=== PATIENT | female | born 1975 | race Caucasian/White ===

== ENCOUNTER 2019-12-17 00:59 | Emergency (ER) | payer BC, SELFPAY ==
--- NOTE | ~2019-12-17 | CT_ITS ---
EXAMINATION: CT abdomen pelvis w con DATE: 12/17/2019 03:12 INDICATION: Abdominal pain, nausea, vomiting TECHNIQUE: Computed tomography (CT) of the abdomen and pelvis was performed with 100 cc Omnipaque 350 intravenous contrast. Automated exposure control and iterative reconstruction technique were employe d. Exam dose: 1604.62 mGy-cm total exam DLP. COMPARISON: 12/24/2018 CT abdomen pelvis FINDINGS: Bilateral dependent lower lobe atelectasis. Borderline heart size. No pericardial or pleural effusion. Hepatic steatosis. Status post cholecystectomy. No bile duct dilatation. No hepatic, splenic, pancreatic space-occupying mass lesion. No pancreatic duct dilatation. Normal morphology of the adrenal glands. Small left renal cyst. No renal mass lesion. No urinary tract calculus or hydroureteronephrosis. There is atherosclerotic calcification of the abdominal aorta. No intraperitoneal or retroperitoneal or pelvic mass lesion or adenopathy or ascites. Normal appendix. Up to 1.5 cm left ovarian cysts; status post hysterectomy. The urinary bladder is unremarkable. Status post hysterectomy. Included skeletal structures are unremarkable. IMPRESSION: Hepatic steatosis Status post cholecystectomy Status post hysterectomy Up to 1.5 cm left ovarian cysts Reviewed, dictated and finalized at [facility]. Reviewed, dictated and finalized at location [facility].
[2019-12-17 01:02] VITALS: BP 213/138; PULSE 119; RESP 24; TEMP 36.1; O2SAT 100
--- NOTE | 2019-12-17 01:15 | PC.NURSE ---
pt does not want an iv at this time patient states that she just can't do it, I am going to be sick . pt states i need a glass a water . I explained to her that we could not give her water while she is vomiting, pt states my mouth is so dry, i need water .
--- NOTE | 2019-12-17 01:19 | ED.NAVMDI ---
HPI - Nausea/Vomiting/Diarrhea General Chief complaint: Nausea/Vomiting/Diarrhea Stated complaint: vomiting Time Seen by Provider: 12/17/19 01:08 Source: patient and RN notes reviewed Mode of arrival: ambulatory Limitations: no limitations History of Present Illness HPI Narrative: Pt is a 43 y/o female with a Hx of DM I and cyclical vomiting, who presents to the ED with c/o nausea and vomiting starting yesterday. She notes that she has been vomiting constantly for the past 12 hours. Pt states that her BS was 208 earlier yesterday, and notes that she believes she is currently in DKA. She reports dysuria accompanying her vomiting, but denies any fever, chills, or other symptoms. Patient well-known to this facility, states she has been seen here before for DKA and cyclical vomiting. Patient repeatedly requesting to drink water, repeatedly stating she is going to vomit. MD elicited complaint: nausea and vomiting Pertinent past history: cyclical vomiting Onset (ago): hour(s) (12) Associated nausea: Yes Associated symptoms: dysuria Related Data Home Medications Medication Instructions Recorded Confirmed acyclovir 400 mg tablet 400 mg PO BID 11/02/19 11/02/19 alprazolam 1 mg tablet 1 mg PO TID PRN 11/02/19 11/02/19 cyclobenzaprine 10 mg tablet 5 mg PO TID tablet 11/02/19 11/02/19 docusate sodium 100 mg capsule 100 mg PO BID PRN 11/02/19 11/02/19 insulin aspart U-100 100 unit/mL 1 sliding scale dose SUB-Q 11/02/19 11/02/19 subcutaneous solution USEASDIRECTD insulin glargine 100 unit/mL (3 60 unit SUB-Q DAILY ml 11/02/19 11/02/19 mL) subcutaneous pen prochlorperazine maleate 10 mg 10 mg PO Q4-6H PRN tablet 11/02/19 11/02/19 tablet sertraline 100 mg tablet 100 mg PO DAILY 11/02/19 11/02/19 tramadol 50 mg tablet 50 mg PO QID PRN tablet 11/02/19 11/02/19 trazodone 100 mg tablet 100 mg PO DAILY tablet 11/02/19 11/02/19 zolpidem 10 mg tablet 10 mg PO QPM tablet 11/02/19 11/02/19 Allergies Allergy/AdvReac Type Severity Reaction Status Date / Time metoclopramide Allergy Severe Rash Verified 12/30/18 07:26 latex Allergy Unknown Unknown Verified 11/02/19 15:35 Review of Systems Review of Systems: Narrative: CONSTITUTIONAL: Denies fever, chills, or sweats. CV: Denies chest pain or dyspnea GASTROINTESTINAL: Denies diarrhea. Reports nausea and vomiting. GENITOURINARY: Reports dysuria. Denies hematuria. NEURO: Denies weakness or numbness All systems reviewed & are unremarkable except as noted in HPI and below PMFSH Past Medical History Medical History Allergies Anemia Anxiety Back pain Bronchitis Chicken pox Cyclical vomiting Depression Diabetes type 1, controlled Endometriosis Fatty liver Fibromyalgia Foot fracture, left GERD (gastroesophageal reflux disease) Heart murmur Herpes HLD (hyperlipidemia) HTN (hypertension) Hypothyroidism IBS (irritable bowel syndrome) Leukocytosis Peptic ulcer Pneumonia Rheumatoid arthritis Sleep apnea Uterine fibroid UTI (urinary tract infection) Vaginal disorder Vitamin B 12 deficiency Surgical History Surgical History History of hysterectomy History of laparoscopy pelvic laparoscopy with removal of uterine fibroids Hx of cholecystectomy Family History Family History (Updated 07/01/18 @ 09:13 by DOCTOR UNKNOWN) Mother Diabetes mellitus Hypertension Family history of elevated blood lipids Sibling Family history of obesity Patient's sister is in good health Father Hypertension Family history of cardiovascular disease Other Acute myocardial infarction Family history of arthritis Family history of heart disease in male family member before age 55 Family history of thyroid disease Social History Social History Smoking status: Never smoker Alcohol intake: current Gender identity (if verbalized by the patient)
[2019-12-17 01:24] VITALS: BP 154/88; PULSE 106; RESP 22; TEMP 37.2; O2SAT 98
[2019-12-17] MEDS: ONDANSETRON INJ 4 MG/2 ML VIAL IV PUSH (01:50)
[2019-12-17 01:52] LABS: Alveolar/Arterial O2 Gradient 29.6 mmHg; Base Excess ABG -1.8 mEq/l (+/-2.0); Carboxyhemoglobin 0.6 % THb (0-2.0); Fractional Inspired Oxygen 21 %; HCO3 ABG 16.5 mEq/l (22.0-26.0); Methemoglobin ABG 0.2 %THb (0-1.5); Oxygen Content ABG 21.3 %vol (16.0-22.0); Oxygen Saturation ABG 98.5 % (95.0-100.0); Oxyhemoglobin 97.2 % THb (90.0-100.0); PO2 ABG 99.8 mmHg (80.0-100.0); PO2 FiO2 Ratio Arterial Blood 4.75 %; Total Hemoglobin 15.5 g/dL (12.0-18.0)
[2019-12-17] MEDS: SODIUM CHLORIDE 0.9% IV 2,000 ML 999 ML IV CONT (01:52)
[2019-12-17 01:53] LABS: pH ABG 7.604 (7.350-7.450)
[2019-12-17 01:54] LABS: Device ROOM AIR; Modified Allen's Test Pass; Site Drawn LEFT RADIAL
[2019-12-17 02:00] LABS: Glucose Point of Care 337 (65-105)
[2019-12-17 02:05] LABS: Basophils Absolute Auto 0.1 K/mm3 (0.0-0.1); Basophils Percent Auto 0.2 % (0.2-1.2); Hematocrit 43.9 % (37.0-47.0); Hemoglobin 15.1 g/dL (12.0-15.0); Immature Granulocyte Absolute 0.13 K/mm3 (0.00-0.031); Immature Granulocyte Percent A 0.6 % (0-0.5); Lymphocytes Absolute Auto 1.64 K/mm3 (0.9-3.2); Mean Corpuscular HGB Conc 34.4 g/dl (32-36); Mean Corpuscular Hemoglobin 28.9 pg (26-34); Mean Corpuscular Volume 83.9 fl (80-100); Mean Platelet Volume 10.1 fl (7.4-10.4); Neutrophils Absolute Auto 20.7 K/mm3 (1.3-6.7); Neutrophils Percent Auto 88.2 % (45.5-73.1); Platelet Count Result 361 k/mm3 (150-375); Red Blood Count 5.23 M/mm3 (4.2-5.4); Red Cell Distribution Width 12.6 % (11.5-14.5); White Blood Count 23.5 K/mm3 (4.5-10.0)
[2019-12-17 02:14] LABS: Add Urine Microscopic? YES; Appearance Urine Clear (Clear); Bilirubin Urine Negative (Negative); Blood Urine 2+ (Negative); Color Urine Yellow (Yellow); Glucose Urine UA 3+ mg/dL (Negative); Hyaline Casts Urine 15-19 /lpf; Ketones Urine Trace mg/dL (Negative); Leukocyte Esterase Ur Negative LEU/UL (Negative); Mucus Urine Rare /lpf; Nitrate Urine Negative (Negative); Protein Urine 3+ mg/dL (Negative); RBC Urine 0-2 /hpf (0-2); Squamous Epithelial Cell Urine Few /hpf (Few); Urobilinogen Urine Negative mg/dL (<2.0); WBC Urine 0-3 /hpf
[2019-12-17] MEDS: HALOPERIDOL LACTATE 5 MG/ML VIAL IV PUSH (02:14)
--- NOTE | 2019-12-17 02:14 | PC.NURSE ---
pt refusing vitals and refuses to leave ekg leads on at this time. pt also demanding water at this time, pt told she can have no water while she is still vomiting.
[2019-12-17 02:15] LABS: Alkaline Phosphatase 140 U/L (38-126); Aspartate Amino Transferase 30 U/L (14-36); Blood Urea Nitrogen 22 mg/dL (7-17); Carbon Dioxide 22 mmol/L (22-30); Chloride 99 mmol/L (98-107); Estimated CRCL calculation 77 ml/min; Estimated Glomerular Filt Rate 54; Glucose 383 mg/dL (65-105); Lipase 23 U/L (23-300); Magnesium 1.1 mg/dL (1.6-2.3); Phosphorus 1.9 mg/dL (2.5-4.5); Potassium 4.1 mmol/L (3.4-5.0); Sodium 136 mmol/L (137-145)
[2019-12-17 02:16] LABS: Specific Grav Ur 1.032 (1.001-1.035)
[2019-12-17 02:19] LABS: Alanine Aminotransferase 37 U/L (4-35)
--- NOTE | 2019-12-17 02:28 | ECG_ITS ---
Measurements Intervals [place] Rate: 114 P: 53 NV: 181 QRS: -75 QRSD: 108 T: 78 QT: 386 QTc: 533 Interpretive Statements SINUS TACHYCARDIA VENTRICULAR TRIGEMINY LEFT ATRIAL ENLARGEMENT INCOMPLETE RIGHT BUNDLE BRANCH BLOCK LEFT ANTERIOR FASCICULAR BLOCK POOR R WAVE PROGRESSION, ANTERIOR LEADS BORDERLINE ST-T WAVE ABNORMALITY- LATERAL LEADS ABNORMAL ECG Electronically Signed On 12-17-2019 7:02:29 CDT by Betito Huber D.O.
[2019-12-17 02:31] LABS: Beta-Hydroxybutyrate/Acetoacetate 0.56 mmol/L (0.02-0.27)
[2019-12-17] MEDS: MAGNESIUM SULF 2 GM/WATER 50ML 2 GM/50 ML BAG IVPB (02:38)
[2019-12-17 02:47] VITALS: BP 189/98; PULSE 111; RESP 19; TEMP 36.8; O2SAT 97
[2019-12-17 03:44] VITALS: BP 153/93; PULSE 116; RESP 22; O2SAT 97
[2019-12-17 03:58] LABS: Glucose Point of Care 289 (65-105)
[2019-12-17] MEDS: LACTATED RINGERS 1,000 ML 999 ML IV CONT (04:00)
[2019-12-17 04:19] LABS: Alveolar/Arterial O2 Gradient 78.3 mmHg; Base Excess ABG -2.1 mEq/l (+/-2.0); Carboxyhemoglobin 0.4 % THb (0-2.0); Device NASAL CANNULA; Fractional Inspired Oxygen 28 %; HCO3 ABG 22.7 mEq/l (22.0-26.0); Methemoglobin ABG 0.4 %THb (0-1.5); Modified Allen's Test Pass; Oxygen Content ABG 18.1 %vol (16.0-22.0); Oxygen Saturation ABG 94.9 % (95.0-100.0); Oxyhemoglobin 93.2 % THb (90.0-100.0); PCO2 ABG 39.1 mmHg (35.0-45.0); PO2 ABG 75.2 mmHg (80.0-100.0); PO2 FiO2 Ratio Arterial Blood 2.69 %; Site Drawn LEFT RADIAL; Total Hemoglobin 13.8 g/dL (12.0-18.0); pH ABG 7.382 (7.350-7.450)
--- NOTE | 2019-12-17 04:27 | PC.NURSE ---
PT AMBULATORY TO RESTROOM AT THIS TIME, PT CURRENTLY A&OX3 AT THIS TIME.
[2019-12-17 04:45] VITALS: BP 147/84; PULSE 115; RESP 19; TEMP 36.8; O2SAT 100
--- NOTE | 2019-12-17 11:45 | ECG_ITS ---
Measurements Intervals [place] Rate: 109 P: 60 MS: 179 QRS: -71 QRSD: 112 T: 78 QT: 370 QTc: 500 Interpretive Statements SINUS TACHYCARDIA LEFT ATRIAL ENLARGEMENT INCOMPLETE RIGHT BUNDLE BRANCH BLOCK LEFT ANTERIOR FASCICULAR BLOCK NONSPECIFIC ST & T-WAVE ABNORMALITY- LATERAL LEADS ABNORMAL ECG Electronically Signed On 12-17-2019 13:35:00 CDT by Betito Huber D.O.
== END 2019-12-17 04:45 | disposition home or self-care (01) ==
LOC: ANHED 01:12
PROVIDERS: Emergency Provider Emergency Medicine; PCP Internal Medicine
DX: R11.2 Nausea with vomiting, unspecified (principal); D72.828 Other elevated white blood cell count; E10.9 Type 1 diabetes mellitus without complications; Z79.4 Long term (current) use of insulin; F41.9 Anxiety disorder, unspecified; F32.9 Major depressive disorder, single episode, unspecified; N80.9 Endometriosis, unspecified; M79.7 Fibromyalgia; K21.9 Gastro-esophageal reflux disease without esophagitis; E78.5 Hyperlipidemia, unspecified; I10 Essential (primary) hypertension; E03.9 Hypothyroidism, unspecified; M06.9 Rheumatoid arthritis, unspecified; G47.30 Sleep apnea, unspecified; Z87.440 Personal history of urinary (tract) infections; E53.8 Deficiency of other specified B group vitamins; R00.0 Tachycardia, unspecified; R00.8 Other abnormalities of heart beat; I45.2 Bifascicular block; R94.31 Abnormal electrocardiogram [ECG] [EKG]
CPT/HCPCS: 36415; 36600; 74177; 80053; 81001; 81025; 82010; 82375; 82805; 82948; 83050; 83690; 83735; 84100; 85025; 93005; 96361; 96365; 96375; 99284; J1200; J1630; J2405; J3475; J7030; J7120; Q9967

== ENCOUNTER 2019-12-30 14:55 | Outpatient (CLI) | payer BC, MEDICAID, SELFPAY ==
--- NOTE | ~2019-12-30 | DEXA_ITS ---
Bone Density Report Name: Jennifer Londono Age: 44 Sex: Female Ethnicity: White Date of : 1975 Indication: postmenopausal; prior fracture; hysterectomy; rheumatoid arthritis; Referring Provider: Jamaal Ibarra Study: Bone densitometry was performed. Exam Date: December 30, 2019 Accession number: [id number] Bone Density: Region BMD T-score Z-score Classification AP Spine (L1-L4) 1.191 1.3 1.7 Normal Femoral Neck (Left) 0.979 1.2 1.6 Normal Total Hip (Left) 1.084 1.2 1.5 Normal Total Hip Bilateral Avg 1.072 1.1 1.4 Normal Femoral Neck (Right) 0.909 0.5 1.0 Normal Total Hip (Right) 1.059 1.0 1.2 Normal World Health Organization criteria for BMD impression classify patients as: Normal (T-score at or above -1.0), Osteopenia (T-score between -1.0 and -2.5), or Osteoporosis (T-score at or below -2.5). 10-year Fracture Risk: FRAX not reported because: All T-scores for Spine Total, Hip Total, Femoral Neck at or above -1.0 Clinical Information Provided by Patient: Has had a low trauma fracture Has rheumatoid arthritis Has used the following medications: Calcium Has the following medical conditions: Hysterectomy Patient maximum height was 68 Menopause Age: 41 No regular weight bearing exercise Drinks caffeinated beverages Onset of menses at age 11 Number of children 0 Impression: The patient has normal bone mass. The patient has risk factors, including: previous fracture. Discussion: BONE DENSITY IS ABOVE THE MINIMUM DESIRABLE LEVEL AT ALL SKELETAL SITES TESTED. This patient?s bone mineral density is above the minimum desirable level (T-score -1.0 or better) at all sites measured. The patient should follow a healthful lifestyle (good nutrition with adequate calcium and vitamin D, and appropriate weight-bearing exercise). Follow-Up: Consider repeating this study in 5 years or sooner if there is some new clinical indication. Reported by: MIKO on 12/30/2019 3:18:00 PM. Reviewed, dictated and finalized at [facility]
== END 2019-12-30 14:56 | disposition home or self-care (01) ==
PROVIDERS: PCP Internal Medicine; Visit Provider Internal Medicine
DX: M84.40XA Pathological fracture, unspecified site, initial encounter for fracture (principal)
CPT/HCPCS: 77080

== ENCOUNTER 2020-04-29 13:23 | Outpatient (CLI) | payer BC, SELFPAY ==
--- NOTE | ~2020-04-29 | MMUS_ITS ---
EXAMINATION: MM diagnostic wilberto LT w harsh, US breast LT limited HISTORY: Follow-up left breast mass TECHNIQUE: Additional 3-D tomosynthesis images of the left breast were performed and synthetic 2-D im ages were generated. CAD analysis was submitted and interpreted. High resolution left breast ultrasou nd was performed. COMPARISON: 07/27/2015 BREAST PARENCHYMAL COMPOSITION: Breast composed of scattered areas of fibroglandular density FINDINGS: MAMMOGRAPHIC FINDINGS: There are no new masses, calcifications or architectural distortion in the left breast to suggest mal ignancy. ULTRASOUND: Limited left breast ultrasound: At 2:00, 6 cm from the nipple, there is a 4 mm complicated cyst with low level internal echoes. No dang spicious masses to suggest malignancy. IMPRESSION: 1. No evidence for malignancy in the left breast. 2. Routine yearly screening mammogram and regular clinical breast examination are recommended. BI-RADS CATEGORY 2 - BENIGN FINDINGS Reviewed, dictated and finalized at location A. IMPRESSION: 1. No evidence for malignancy in the left breast. 2. Routine yearly screening mammogram and regular clinical breast examination a re recommended. BI-RADS CATEGORY 2 - BENIGN FINDINGS
== END 2020-04-29 13:24 | disposition home or self-care (01) ==
LOC: ANHIMG 13:25
PROVIDERS: PCP Internal Medicine; Visit Provider Obstetrics & Gynecology
DX: R92.8 Other abnormal and inconclusive findings on diagnostic imaging of breast (principal)
CPT/HCPCS: 76642; 77061; 77065; G0279

== ENCOUNTER 2020-07-03 02:05 | Observation (INO) | payer BC, SELFPAY ==
[2020-07-03] VITALS (29 sets, daily range): BP systolic 126–232; BP diastolic 62–131; PULSE 86–118; RESP 16–30; TEMP 36–37.5; O2SAT 92–100; BMI 39.2
--- NOTE | ~2020-07-03 | XR_ITS ---
EXAMINATION: XR chest 1V portable EXAM DATE: 07/04/2020 06:09 INDICATION: Leukocytosis, vomiting. TECHNIQUE: Portable AP frontal chest x-ray was obtained. Comparison is made to prior examination from 01/30/2019. FINDINGS: There are cholecystectomy clips. Subsegmental amount of retrocardiac atelectasis or pneumon ia. The lungs are otherwise clear. There are no pleural effusions. Cardiac silhouette is prominent but magnified on this AP technique. There is no pneumothorax suspected. The bones and soft tissues are unremarkable. IMPRESSION: Small amount of retrocardiac atelectasis or pneumonia. Reviewed, dictated and finalized at location A.
--- NOTE | ~2020-07-03 | CT_ITS ---
EXAMINATION: CT abdomen pelvis w con DATE: 07/03/2020 08:40 INDICATION: Abdominal pain. TECHNIQUE: Computed tomography (CT) of the abdomen and pelvis was performed with 100 cc Omnipaque 350 intravenous contrast. The dose-length product was 1647.71 mGy-cm. Automated exposure control and ite rative reconstruction technique were employed. COMPARISON: CT dated 12/17/2019. FINDINGS: Lung bases are normal. Heart size is normal. No significant pleural or pericardial effusion . Fatty infiltration of the liver. No significant vascular abnormality. No lymphadenopathy. There is a 2 cm corpus luteal cyst of the right ovary. Small amount of free fluid in the pelvis. Nonobstructive bowel gas pattern. The spleen, pancreas, adrenal glands and right kidney are unremarkable. There is a small subcentimeter hypodensity of the left kidney, too small to characterize. There is lower thorac ic spondylosis. IMPRESSION: 1. 2 cm corpus luteal cyst of the right ovary with small amount of free fluid in the pelvis. Reviewed, dictated and finalized at location A. IMPRESSION: 1. 2 cm corpus luteal cyst of the right ovary with small amount of free fluid i n the pelvis.
--- NOTE | ~2020-07-03 | US_ITS ---
EXAMINATION: US venous doppler LE RT EXAM DATE: 07/06/2020 09:46 INDICATION: Edema right leg. TECHNIQUE: Multiple grayscale, color flow and Doppler images of the right lower extremity deep venous system were obtained and reviewed. Comparison is made to prior examination from 09/19/2019. FINDINGS: The right common femoral, femoral and profunda veins demonstrate normal color flow, respira tory variation, augmentation and compressibility. Compressibility, color flow confirmed within the r ight popliteal, posterior tibial, peroneal, and greater saphenous veins. IMPRESSION: 1. No right lower extremity deep venous thrombosis. Reviewed, dictated and finalized at location A.
--- NOTE | ~2020-07-03 | XR_ITS ---
XR toe 1st RT min 2V 07/03/2020 06:19 Indication: Toe pain Procedure: 4 views right first toe Comparison: No prior studies for comparison. Findings: There is focal soft tissue ulceration of the first toe. No foreign body. No acute fracture or traumatic malalignment. No evidence for osteomyelitis. Impression: 1: No significant bone or joint abnormality. Focal soft tissue ulceration. If there is concern for un derlying osteomyelitis, correlation with MRI is recommended. Reviewed, dictated and finalized at location A. Impression: 1: No significant bone or joint abnormality. Focal soft tissue ulceration. If t here is concern for underlying osteomyelitis, correlation with MRI is recommend ed.
[2020-07-03] MEDS: SODIUM CHLORIDE 0.9% IV 1,000 ML 999 ML IV CONT ×4 (02:29→09:28)
[2020-07-03 02:31] LABS: Glucose Point of Care 380 (65-105)
[2020-07-03 02:42] LABS: Basophils Percent Auto 0.2 % (0.2-1.2); Hematocrit 46.5 % (37.0-47.0); Hemoglobin 15.9 g/dL (12.0-15.0); Immature Granulocyte Absolute 0.14 K/mm3 (0.00-0.031); Immature Granulocyte Percent A 0.7 % (0-0.5); Lymphocytes Absolute Auto 1.28 K/mm3 (0.9-3.2); Lymphocytes Percent Auto 6.1 % (18.3-44.2); Mean Corpuscular HGB Conc 34.2 g/dl (32-36); Mean Corpuscular Volume 84.7 fl (80-100); Mean Platelet Volume 10.1 fl (7.4-10.4); Monocytes Absolute Auto 0.7 K/mm3 (0.1-0.6); Monocytes Percent Auto 3.1 % (2.6-8.5); Neutrophils Percent Auto 89.9 % (45.5-73.1); Platelet Count Result 299 k/mm3 (150-375); Red Blood Count 5.49 M/mm3 (4.2-5.4); Red Cell Distribution Width 13.1 % (11.5-14.5); White Blood Count 21.1 K/mm3 (4.5-10.0)
--- NOTE | 2020-07-03 02:47 | ED.GENADULT ---
HPI - General Adult General Chief complaint: Recheck/Abnormal Lab/Rx <Bo Contreras DO - Last Filed: 07/03/20 06:59> Stated complaint: overheated; 455 bg <Bo Contreras DO - Last Filed: 07/03/20 06:59> Time Seen by Provider: 07/03/20 02:09 <Bo Contreras DO - Last Filed: 07/03/20 06:59> Source: RN notes reviewed <Bo Contreras DO - Last Filed: 07/03/20 06:59> History of Present Illness HPI narrative: Patient presents emergency department from home for elevated blood sugar. Patient states that this evening at work the air conditioning had gone out at the [employer] she worked and she become overheated. She states at that time she had 2 episodes of emesis and gone home. Patient states that when she had come home she began to feel better and falling asleep. She was awoken by her cat at 1 AM and at that time rechecked her blood sugar and was noted to be 400. She states she took her insulin at that time and came to the emergency department for further evaluation as her blood sugars still been elevated. She states that her nausea vomiting is improved she denies any fevers or chills chest pain shortness of breath abdominal pain or any other symptoms. Patient does note that she does have a pressure wound on her right toe that is being followed by a physician in [place] <Bo Contreras DO - Last Filed: 07/03/20 06:59> Related Data Home medications: Home Medications Medication Instructions Recorded Confirmed acyclovir 400 mg tablet 400 mg PO BID 11/02/19 02/01/20 alprazolam 1 mg tablet 1 mg PO TID PRN 11/02/19 02/01/20 docusate sodium 100 mg capsule 100 mg PO BID PRN 11/02/19 02/01/20 insulin aspart U-100 100 unit/mL 1 sliding scale dose SUB-Q 11/02/19 02/01/20 subcutaneous solution USEASDIRECTD insulin glargine 100 unit/mL (3 60 unit SUB-Q DAILY ml 11/02/19 02/01/20 mL) subcutaneous pen sertraline 100 mg tablet 100 mg PO DAILY 11/02/19 02/01/20 trazodone 100 mg tablet 100 mg PO DAILY tablet 11/02/19 02/01/20 zolpidem 10 mg tablet 10 mg PO QPM tablet 11/02/19 02/01/20 <Bo Contreras DO - Last Filed: 07/03/20 06:59> Allergies/adverse reactions: Allergies Allergy/AdvReac Type Severity Reaction Status Date / Time metoclopramide Allergy Severe Rash Verified 07/03/20 10:36 latex Allergy Unknown itching Verified 07/03/20 10:36 <Bo Contreras DO - Last Filed: 07/03/20 06:59> Review of Systems Review of Systems: Narrative: Gen.: Denies fevers or chills ENT: Denies congestion Respiratory: Denies shortness of breath or cough CV: Denies chest pain or palpitations GI: See HPI denies burning, urgency, frequency or hematuria Musculoskeletal: Denies back pain or muscle pain Neuro: Denies numbness, tingling, weakness or focal weakness Skin: Denies rash Endocrine: Reports elevated blood sugar Except as documented, all other systems reviewed and negative <Bo Contreras DO - Last Filed: 07/03/20 06:59> [facility] Past Medical History Medical History: Medical History Allergies Anemia Anxiety Back pain Bronchitis Chicken pox Cyclical vomiting Depression Diabetes type 1, controlled Endometriosis Fatty liver Fibromyalgia Foot fracture, left GERD (gastroesophageal reflux disease) Heart murmur Herpes HLD (hyperlipidemia) HTN (hypertension) Hypothyroidism IBS (irritable bowel syndrome) Leukocytosis Peptic ulcer Pneumonia Rheumatoid arthritis Sleep apnea Uterine fibroid UTI (urinary tract infection) Vaginal disorder Vitamin B 12 deficiency <Bo Contreras DO - Last Filed: 07/03/20 06:59> Surgical History Surgical History: Surgical History History of hysterectomy History of laparoscopy pelvic laparoscopy with removal of uterine fibroids Hx of cholecystectomy <Bo Contreras DO - Last Filed: 07/03/20 06:59> Family Histor
[2020-07-03 02:51] LABS: Add Urine Microscopic? YES; Appearance Urine Cloudy (Clear); Bilirubin Urine Negative (Negative); Blood Urine 1+ (Negative); Color Urine Yellow (Yellow); Glucose Urine UA 3+ mg/dL (Negative); Hyaline Casts Urine 50+ /lpf; Ketones Urine Trace mg/dL (Negative); Leukocyte Esterase Ur Negative LEU/UL (Negative); Mucus Urine Rare /lpf; Nitrate Urine Negative (Negative); Protein Urine 3+ mg/dL (Negative); Squamous Epithelial Cell Urine Moderate /hpf (Few); Urobilinogen Urine Negative mg/dL (<2.0)
[2020-07-03 02:53] LABS: Alanine Aminotransferase 29 U/L (4-35); Albumin Level 4.5 g/dL (3.5-5.1); Alkaline Phosphatase 120 U/L (38-126); Anion Gap 13 mmol/L (8-16); Aspartate Amino Transferase 30 U/L (14-36); Bilirubin,Total 0.9 mg/dL (0.2-1.3); Blood Urea Nitrogen 22 mg/dL (7-17); Calcium 10.8 mg/dL (8.4-10.2); Carbon Dioxide 24 mmol/L (22-30); Chloride 100 mmol/L (98-107); Creatine Kinase 45 U/L (30-135); Estimated CRCL calculation 76 ml/min; Estimated Glomerular Filt Rate 54; Glucose 410 mg/dL (65-105); Lipase 54 U/L (23-300); Potassium 3.7 mmol/L (3.4-5.0); Sodium 137 mmol/L (137-145)
[2020-07-03 02:57] LABS: Specific Grav Ur 1.032 (1.001-1.035)
[2020-07-03] MEDS: ONDANSETRON INJ 4 MG/2 ML VIAL IV PUSH ×4 (03:16→20:36)
[2020-07-03 03:22] LABS: Beta-Hydroxybutyrate/Acetoacetate 0.67 mmol/L (0.02-0.27)
[2020-07-03 03:52] LABS: Glucose Point of Care 301 (65-105)
[2020-07-03 05:33] LABS: Glucose Point of Care 235 (65-105)
--- NOTE | 2020-07-03 05:40 | PC.NURSE ---
pt stating she feels nauseous and is dry heaving at this time. Md updated, med orders received. pt medicated as stated per MAR. pt remains hooked up to monitor. pt appears anxious, instructed to take slow, deep breaths. call light in reach-will continue to monitor pt for baseline status changes.
[2020-07-03] MEDS: PROMETHAZINE HCL 25 MG/ML AMPUL 12.5 MG IV PUSH ×2 (05:48→12:44)
--- NOTE | 2020-07-03 06:23 | PC.NURSE ---
pt ambulatory to restroom without difficulty
--- NOTE | 2020-07-03 06:47 | PC.NURSE ---
pt in the bathroom right now stating, it keeps coming out both ends. small amount of vomit noted in emesis bag. pt encouraged to use call light if needed.
[2020-07-03] MEDS: LORazepam INJ (*CRX) 2 MG/ML VIAL 1 MG IV PUSH (06:58)
[2020-07-03 07:30] LABS: Lactic Acid Reflex 3.1 mmol/L (0.7-2.1)
--- NOTE | 2020-07-03 07:32 | PC.NURSE ---
PT STATES SHE WILL TRY TO GO TO CT SCAN NOW. CT NOTIFIED
--- NOTE | 2020-07-03 08:13 | PC.NURSE ---
pt ran out of ct stating she needed to use bathroom. pt escorted from ed bathroom to her room. pt anxious. states she cant lay flat for ct, she feels she will shit herself. pt attempting to drink out of faucet in her room. reeducated pt about NPO status. pt pacing room. BP elevated. Dr Gramajo notified. VRBO received.
[2020-07-03] MEDS: LORazepam INJ (*CRX) 2 MG/ML VIAL IV PUSH (08:19)
[2020-07-03] MEDS: LABETALOL HCL INJ 100 MG/20 ML VIAL 20 MG IV PUSH ×2 (09:06→09:47)
[2020-07-03 09:21] LABS: Amphetamine Screen Urine Negative (Negative); Barbiturate Screen Urine Negative (Negative); Benzodiazepines Screen Urine Positive (Negative); Cannabinoid Screen Urine Negative (Negative); Cocaine Screen Urine Negative (Negative); Methadone Screen Urine Negative (Negative); Opiate Screen Urine Negative (Negative); Phencyclidine Screen Urine Negative (Negative)
[2020-07-03 10:13] LABS: Reflex Lactic Acid Yes or No Add Lactic
--- NOTE | 2020-07-03 10:13 | ADMGEN ---
This patient, Jennifer Londono, was admitted to IMU Room 232-01. Patient/family oriented to hospital policies and general routines including ID bracelet, bed and alarms, visiting hours, pain management, procedures, bathroom and other care routines, personal items, smoking policy, room service/diet, and visiting hours. Valuables list has been completed. Information on how to activate the Rapid Response Team has been discussed. Patient/Family are encouraged to report perceived risks to care and to ask questions if they do not understand what they are told or what they should do.
[2020-07-03] MEDS: METOPROLOL TARTRATE INJ 5 MG/5 ML VIAL IV PUSH ×3 (11:30→23:27)
[2020-07-03] MEDS: SODIUM CHLORIDE 0.9% IV 1,000 ML 150 ML IV CONT ×2 (11:30→20:38)
[2020-07-03] MEDS: hydrALAZINE HCL 20 MG/ML VIAL IV PUSH ×2 (11:30→17:20)
--- NOTE | 2020-07-03 11:40 | PM.IMHP ---
H&P: HPI History of Present Illness Date/Time: 07/03/20 11:40 Chief complaint: nausea and vomiting intractable/diabetes mellitus/ Narrative: Date of visit 07/03 1100. Jennifer Londono is a 44 year old female with type 1 diabetes mellitus diagnosis in 2004 who presented to the emergency room with nausea and vomiting and elevated blood sugar. she was at work last evening when she got hot when air conditioner 1 out started feeling nauseated after arriving home was vomiting and even had some diarrhea. With symptoms persisting and blood sugar elevating she came to the emergency room for evaluation. She was last hospitalized here in October 2018 for diabetic ketoacidosis. She had repeated episodes of the same while she was on insulin pump but now allergies back on Lantus with short-acting eating insulin with meals she has done better. She denies a fever, abdominal pain, but did say that she has had little bit of dysuria. She has had no cough or shortness of breath. 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 integument has an ulcer on her right toes been present for 6 months neuropsych no seizures no syncope PMFSH Past Medical History Medical History Allergies Anemia Anxiety Back pain Bronchitis Chicken pox Cyclical vomiting Depression Diabetes type 1, controlled Endometriosis Fatty liver Fibromyalgia Foot fracture, left GERD (gastroesophageal reflux disease) Heart murmur Herpes HLD (hyperlipidemia) HTN (hypertension) Hypothyroidism IBS (irritable bowel syndrome) Leukocytosis Peptic ulcer Pneumonia Rheumatoid arthritis Sleep apnea Uterine fibroid UTI (urinary tract infection) Vaginal disorder Vitamin B 12 deficiency Surgical History Surgical History History of hysterectomy History of laparoscopy pelvic laparoscopy with removal of uterine fibroids Hx of cholecystectomy Social History Social History (Updated 07/03/20 @ 11:46 by William Cleveland MD) Social History: states she lives alone, with no children and her at a young age,33 Smoking status: Never smoker Alcohol intake: never Substance use: never Gender identity (if verbalized by the patient): Female Sexual Orientation (if Verbalized by the Patient): Straight or Heterosexual Spiritual care concerns: Yes ([facility]) Meds Home Medications and Allergies Home Medications Medication Instructions Recorded Confirmed Type acyclovir 400 mg tablet 400 mg PO BID 11/02/19 07/03/20 History alprazolam 1 mg tablet 0.5 mg PO TID PRN 11/02/19 07/03/20 History amitriptyline 25 mg tablet 25 mg PO ONCE #90 tablet 11/02/19 07/03/20 Rx docusate sodium 100 mg capsule 100 mg PO BID PRN 11/02/19 07/03/20 History insulin aspart U-100 100 unit/mL 1 sliding scale dose SUB-Q 11/02/19 07/03/20 History subcutaneous solution USEASDIRECTD insulin glargine 100 unit/mL (3 58 unit SUB-Q DAILY ml 11/02/19 07/03/20 History mL) subcutaneous pen sertraline 100 mg tablet 100 mg PO HS 11/02/19 07/03/20 History trazodone 100 mg tablet 50 mg PO DAILY tablet 11/02/19 07/03/20 History zolpidem 10 mg tablet 10 mg PO QPM tablet 11/02/19 07/03/20 History prochlorperazine maleate 10 mg 10 mg PO Q4-6H PRN #30 tablet 02/01/20 07/03/20 Rx tablet metoprolol succinate 25 mg 25 mg PO DAILY #90 tablet 03/28/20 07/03/20 Rx tablet,extended release 24 hr fluticasone propionate 50 2 spray NASAL DAILY #18.2 ml
--- NOTE | 2020-07-03 11:48 | ECG_ITS ---
Measurements Intervals [place] Rate: 97 P: 60 VT: 160 QRS: -82 QRSD: 109 T: 79 QT: 416 QTc: 529 Interpretive Statements SINUS RHYTHM LEFT ATRIAL ENLARGEMENT INCOMPLETE RIGHT BUNDLE BRANCH BLOCK LEFT ANTERIOR FASCICULAR BLOCK BORDERLINE ST-T WAVE ABNORMALITY- HIGH LATERAL LEADS BASELINE ARTIFACT- I, AVR, V1-V2 ABNORMAL ECG Electronically Signed On 07-03-2020 20:03:26 CDT by Betito Huber D.O.
[2020-07-03 11:52] LABS: Lactic Acid 2.3 mmol/L (0.7-2.1)
[2020-07-03 13:09] LABS: Glucose Point of Care 405 (65-105)
[2020-07-03] MEDS: LOSARTAN POTASSIUM 50 MG TABLET PO (13:38)
[2020-07-03] MEDS: INSULIN GLARGINE (*BKC) 100 UNITS/ML 30 UNITS SUB-Q (13:38)
[2020-07-03] MEDS: INSULIN ASPART (*BKC) 100 UNITS/ML 15 UNITS SUB-Q (13:39)
[2020-07-03 15:39] LABS: Basophils Percent Auto 0.2 % (0.2-1.2); Hematocrit 45.1 % (37.0-47.0); Hemoglobin 15.6 g/dL (12.0-15.0); Immature Granulocyte Absolute 0.17 K/mm3 (0.00-0.031); Immature Granulocyte Percent A 0.8 % (0-0.5); Lymphocytes Absolute Auto 1.57 K/mm3 (0.9-3.2); Lymphocytes Percent Auto 7.1 % (18.3-44.2); Mean Corpuscular HGB Conc 34.6 g/dl (32-36); Mean Corpuscular Hemoglobin 29.4 pg (26-34); Mean Corpuscular Volume 85.1 fl (80-100); Mean Platelet Volume 10.2 fl (7.4-10.4); Monocytes Absolute Auto 0.7 K/mm3 (0.1-0.6); Neutrophils Absolute Auto 19.7 K/mm3 (1.3-6.7); Neutrophils Percent Auto 88.9 % (45.5-73.1); Platelet Count Result 316 k/mm3 (150-375); Red Cell Distribution Width 13.4 % (11.5-14.5); White Blood Count 22.2 K/mm3 (4.5-10.0)
[2020-07-03 16:10] LABS: Albumin Level 4.6 g/dL (3.5-5.1); Anion Gap 14 mmol/L (8-16); Blood Urea Nitrogen 16 mg/dL (7-17); Calcium 10.2 mg/dL (8.4-10.2); Carbon Dioxide 22 mmol/L (22-30); Chloride 106 mmol/L (98-107); Estimated CRCL calculation 117 ml/min; Estimated Glomerular Filt Rate > 60; Glucose 363 mg/dL (65-105); Phosphorus 1.8 mg/dL (2.5-4.5); Potassium 3.4 mmol/L (3.4-5.0); Sodium 142 mmol/L (137-145)
[2020-07-03 16:21] LABS: Troponin I 0.029 ng/mL (0.000-0.034)
[2020-07-03 17:17] LABS: Glucose Point of Care 309 (65-105)
[2020-07-03] MEDS: POTASSIUM PHOS,M-BASIC-D-BASIC 20 MMOL in SODIUM CHLORIDE 0.9% IV 250 ML 64 MMOL IVPB (17:17)
[2020-07-03] MEDS: INSULIN ASPART (*BKC) 100 UNITS/ML SUB-Q (17:17)
[2020-07-03] MEDS: ENALAPRILAT 1.25 MG/ML VIAL IV PUSH ×2 (17:19→23:27)
[2020-07-03] MEDS: INSULIN HUMAN REGULAR (*BKC) 100 UNITS/ML 10 UNITS IV PUSH (17:22)
[2020-07-03] MEDS: GABAPENTIN 300 MG CAPSULE PO (20:36)
[2020-07-03] MEDS: PRAZOSIN HCL 1 MG CAPSULE 2 MG PO (20:37)
[2020-07-03] MEDS: ZOLPIDEM TARTRATE (*CRX) 5 MG TABLET 10 MG PO (20:37)
[2020-07-03] MEDS: AMITRIPTYLINE HCL 25 MG TABLET PO (20:37)
[2020-07-03] MEDS: SERTRALINE HCL 50 MG TABLET 100 MG PO (20:37)
[2020-07-03 20:42] LABS: Glucose Point of Care 239 (65-105)
[2020-07-04] VITALS (15 sets, daily range): BP systolic 119–160; BP diastolic 73–89; PULSE 73–118; RESP 16–20; TEMP 35.9–36.9; O2SAT 17–99
[2020-07-04] MEDS: ONDANSETRON INJ 4 MG/2 ML VIAL IV PUSH ×2 (03:39→08:44)
[2020-07-04] MEDS: SODIUM CHLORIDE 0.9% IV 1,000 ML 150 ML IV CONT ×2 (03:39→13:30)
[2020-07-04] MEDS: METOPROLOL TARTRATE INJ 5 MG/5 ML VIAL IV PUSH ×2 (05:24→12:42)
[2020-07-04] MEDS: ENALAPRILAT 1.25 MG/ML VIAL IV PUSH ×2 (05:24→12:42)
[2020-07-04 06:08] LABS: Basophils Percent Auto 0.2 % (0.2-1.2); Eosinophils Percent Auto 0.1 % (0-4.4); Hemoglobin 13.3 g/dL (12.0-15.0); Immature Granulocyte Absolute 0.09 K/mm3 (0.00-0.031); Immature Granulocyte Percent A 0.6 % (0-0.5); Lymphocytes Absolute Auto 2.47 K/mm3 (0.9-3.2); Lymphocytes Percent Auto 15.2 % (18.3-44.2); Mean Corpuscular HGB Conc 33.3 g/dl (32-36); Mean Corpuscular Hemoglobin 29.4 pg (26-34); Mean Corpuscular Volume 88.3 fl (80-100); Mean Platelet Volume 10.2 fl (7.4-10.4); Monocytes Percent Auto 5.8 % (2.6-8.5); Neutrophils Absolute Auto 12.7 K/mm3 (1.3-6.7); Neutrophils Percent Auto 78.1 % (45.5-73.1); Platelet Count Result 270 k/mm3 (150-375); Red Blood Count 4.53 M/mm3 (4.2-5.4); Red Cell Distribution Width 13.7 % (11.5-14.5); White Blood Count 16.3 K/mm3 (4.5-10.0)
[2020-07-04 06:19] LABS: Alanine Aminotransferase 17 U/L (4-35); Albumin Level 3.6 g/dL (3.5-5.1); Alkaline Phosphatase 78 U/L (38-126); Anion Gap 7 mmol/L (8-16); Aspartate Amino Transferase 21 U/L (14-36); Bilirubin,Total 0.8 mg/dL (0.2-1.3); Blood Urea Nitrogen 25 mg/dL (7-17); Calcium 9.3 mg/dL (8.4-10.2); Carbon Dioxide 27 mmol/L (22-30); Chloride 106 mmol/L (98-107); Estimated CRCL calculation 84 ml/min; Estimated Glomerular Filt Rate 60; Glucose 192 mg/dL (65-105); Magnesium 1.5 mg/dL (1.6-2.3); Phosphorus 3.8 mg/dL (2.5-4.5); Potassium 3.1 mmol/L (3.4-5.0); Sodium 140 mmol/L (137-145)
[2020-07-04 08:21] LABS: Glucose Point of Care 159 (65-105)
[2020-07-04] MEDS: traMADol HCL (*CRX) 50 MG TABLET PO (08:25)
[2020-07-04] MEDS: PANTOPRAZOLE 40 MG TABLET PO ×2 (08:25→17:55)
[2020-07-04] MEDS: LOSARTAN POTASSIUM 50 MG TABLET PO ×2 (08:25→17:55)
[2020-07-04] MEDS: MAGNESIUM SULF 2 GM/WATER 50ML 2 GM/50 ML BAG IVPB (08:44)
[2020-07-04 12:10] LABS: Glucose Point of Care 267 (65-105)
[2020-07-04] MEDS: INSULIN ASPART (*BKC) 100 UNITS/ML SUB-Q ×2 (12:43→17:56)
--- NOTE | 2020-07-04 16:07 | PM.IMPN ---
Progress Note: A&P Assessment and Plan (1) Hypertensive urgency: Code(s): I16.0 - Hypertensive urgency Status: Acute Assessment and Plan: was not able to keep for oral medication down. on admission and placed on IV metoprolol and IV hydralazine with enalapril now tolerating oral liquids and will transition back to oral medications with increasing metoprolol to 50 daily and her losartan to 100 daily with continued to hold her diuretic (2) Diabetes type 1, controlled: Code(s): E10.9 - Type 1 diabetes mellitus without complications Status: Acute Assessment and Plan: blood sugar was elevated with CO2 24 and beta hydroxybutyrate borderline elevated at 0.67. taking diet and transitioning back to Lantus plus novel along with meals. She states that she has been taking 70 units daily and will start at 50 with 8 of not along schedule with meals plus sliding scale FBS today 192 and total CO2 increased to 27 (3) Anxiety and depression: Code(s): F41.9 - Anxiety disorder, unspecified; F32.9 - Major depressive disorder, single episode, unspecified Status: Acute Assessment and Plan: continue her usual medications now that she is able to take oral (4) Toe ulcer: Code(s): L97.509 - Non-pressure chronic ulcer of other part of unspecified foot with unspecified severity Status: Acute Assessment and Plan: appears chronic and toe x-ray showed no osteo. 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 She does relate that she had MRI some 2 weeks ago that showed no osteo (5) Leukocytosis: Code(s): D72.829 - Elevated white blood cell count, unspecified Status: Acute Assessment and Plan: probably secondary to gastroenteritis and/or stress related. CT abdomen unremarkable. blood culture so far no growth. WBC falling. Chest x-ray atelectasis only and no cough or fever. urinalysis minimal wbc's but marked squamous cells and no urinary symptoms (6) DVT prophylaxis: Code(s): Z29.9 - Encounter for prophylactic measures, unspecified Status: Acute Assessment and Plan: Lovenox Subjective Date/time seen: 07/04/20 16:07 Interval history: Date of visit 07/04. 44-year-old hypertensive diabetic admitted with nausea and vomiting, accelerated hypertension, and elevated blood sugar. Today she is feeling better has tolerated clear liquids and feels hungry.. Blood pressure is under better control and now able to take oral meds. No fever no chills no cough Exam Narrative: Exam Narrative: blood pressure was 152/86 pulse is 90 saturating 98% on room air respirations 16 per minute afebrile pupils equal reactive light sclera anicteric lungs clear CV no murmurs or gallops heard abdomen obese nontender bowel sounds present extremities without edema posterior tibial 1+ bilaterally dorsalis pedis 0 1+ ,plantar surface of right great toe a chronic ulceration neuro alert cooperative no focal deficits Objective Data Vital Signs Vital Signs: Vital Signs - 24 hr 07/03/20 17:19 07/03/20 18:14 07/03/20 19:10 Temperature 36.3 C L Pulse Rate 114 H 112 H 114 H Respiratory Rate 24 H Blood Pressure 176/99 H Pulse Oximetry 97 07/03/20 20:00 07/03/20 20:30 07/03/20 22:00 Temperature Pulse Rate 102 H 106 H Respiratory Rate 20 Blood Pressure 126/62 Pulse Oximetry 97 07/03/20 22:53 07/03/20 23:00 07/03/20 23:27 Temperature 36.3 C L Pulse Rate 105 H 106 H Respiratory Rate 18 Blood Pressure 132/66 Pulse Oximetry 96 96 07/04/20 00:00 07/04/20 02:00 07/04/20 04:00 Temperature Pulse Rate 110 H 103 H 106 H Respiratory Rate 18 18 Blood Pressure Pulse Oximetry 96 96 07/04/20 04:45 07/04/20 05:24 07/04/20 06:00 Temperature 35.9 C L Pulse Rate 118 H 110 H 106 H Respiratory Rate 18 Blood Pressure 147/73 H Pulse Oximetry 94 07/04/20 08:00 07/04/20 10
[2020-07-04 16:16] LABS: Glucose Point of Care 267 (65-105)
[2020-07-04] MEDS: SILVERGEL (ELTA) 45 ML 1 APPLIC TOPICAL (17:53)
[2020-07-04] MEDS: METOPROLOL SUCCINATE EXT REL 50 MG TABCR PO (17:55)
[2020-07-04] MEDS: INSULIN GLARGINE (*BKC) 100 UNITS/ML 50 UNITS SUB-Q (17:55)
[2020-07-04] MEDS: INSULIN ASPART (*BKC) 100 UNITS/ML 8 UNITS SUB-Q (17:56)
--- NOTE | 2020-07-04 19:35 | PC.NURSE ---
This patient, Jennifer Londono, was transferred to [[id number]] on 07/04/20 at 1935. Personal belongings sent with patient. Belongings list checked and signed with receiving [ ]. Report given to [JUSTUS RIGGS]. Appropriate documentation sent with patient.
[2020-07-04] MEDS: AMITRIPTYLINE HCL 25 MG TABLET PO (21:48)
[2020-07-04] MEDS: PRAZOSIN HCL 1 MG CAPSULE 2 MG PO (21:48)
[2020-07-04] MEDS: GABAPENTIN 300 MG CAPSULE PO (21:48)
[2020-07-04] MEDS: SERTRALINE HCL 50 MG TABLET 100 MG PO (21:48)
[2020-07-04] MEDS: ENOXAPARIN 40 MG/0.4 ML SYRINGE SUB-Q (21:49)
[2020-07-04] MEDS: ZOLPIDEM TARTRATE (*CRX) 5 MG TABLET 10 MG PO (21:49)
[2020-07-04] MEDS: ALPRAZolam (*CRX) 0.5 MG TABLET PO (21:54)
[2020-07-04 22:00] LABS: Glucose Point of Care 265 (65-105)
--- NOTE | 2020-07-04 22:50 | PC.NURSE ---
This patient, Jennifer Londono, was received from [ IMU] on 07/04/20 at . Personal belongings list checked and signed. Patient/family oriented to unit policies and routines
[2020-07-05] VITALS: BP 133/79; PULSE 74; RESP 20; TEMP 36.7; O2SAT 96
[2020-07-05 06:09] VITALS: BP 144/81; PULSE 85; RESP 20; TEMP 36.2; O2SAT 95
[2020-07-05 07:22] LABS: Basophils Absolute Auto 0.1 K/mm3 (0.0-0.1); Basophils Percent Auto 0.5 % (0.2-1.2); Eosinophils Absolute Auto 0.2 K/mm3 (0-0.3); Hemoglobin 12.5 g/dL (12.0-15.0); Immature Granulocyte Absolute 0.07 K/mm3 (0.00-0.031); Immature Granulocyte Percent A 0.6 % (0-0.5); Lymphocytes Percent Auto 27.5 % (18.3-44.2); Mean Corpuscular HGB Conc 32.9 g/dl (32-36); Mean Corpuscular Hemoglobin 29.3 pg (26-34); Mean Corpuscular Volume 89.2 fl (80-100); Mean Platelet Volume 9.5 fl (7.4-10.4); Monocytes Absolute Auto 0.6 K/mm3 (0.1-0.6); Monocytes Percent Auto 5.9 % (2.6-8.5); Neutrophils Absolute Auto 6.9 K/mm3 (1.3-6.7); Neutrophils Percent Auto 63.5 % (45.5-73.1); Platelet Count Result 215 k/mm3 (150-375); Red Blood Count 4.26 M/mm3 (4.2-5.4); Red Cell Distribution Width 13.6 % (11.5-14.5); White Blood Count 10.9 K/mm3 (4.5-10.0)
[2020-07-05 07:39] LABS: Albumin Level 3.3 g/dL (3.5-5.1); Anion Gap 5 mmol/L (8-16); Blood Urea Nitrogen 21 mg/dL (7-17); Calcium 9.3 mg/dL (8.4-10.2); Carbon Dioxide 27 mmol/L (22-30); Chloride 107 mmol/L (98-107); Estimated CRCL calculation 91 ml/min; Estimated Glomerular Filt Rate > 60; Glucose 191 mg/dL (65-105); Magnesium 1.7 mg/dL (1.6-2.3); Phosphorus 2.6 mg/dL (2.5-4.5); Potassium 3.5 mmol/L (3.4-5.0); Sodium 139 mmol/L (137-145)
[2020-07-05 08:01] LABS: Glucose Point of Care 172 (65-105)
[2020-07-05] MEDS: ONDANSETRON INJ 4 MG/2 ML VIAL IV PUSH ×2 (08:04→15:32)
[2020-07-05] MEDS: FLUTICASONE PROPIONATE 0.05% NA SPR 16 GM BTL (*BKC) 2 SPRAY NASAL (08:09)
[2020-07-05] MEDS: INSULIN ASPART (*BKC) 100 UNITS/ML 8 UNITS SUB-Q ×3 (09:12→18:24)
[2020-07-05 09:15] VITALS: BP 151/86; PULSE 76; PULSE 85; RESP 20; TEMP 36.8; O2SAT 97
[2020-07-05] MEDS: METOPROLOL SUCCINATE EXT REL 50 MG TABCR PO (09:15)
[2020-07-05] MEDS: LOSARTAN POTASSIUM 100 MG TABLET PO (09:15)
[2020-07-05] MEDS: PANTOPRAZOLE 40 MG TABLET PO ×2 (09:15→16:32)
[2020-07-05] MEDS: SILVERGEL (ELTA) 45 ML 1 APPLIC TOPICAL (09:16)
--- NOTE | 2020-07-05 10:48 | PM.IMPN ---
Progress Note: A&P Assessment and Plan (1) Hypertensive urgency: Code(s): I16.0 - Hypertensive urgency Status: Acute Assessment and Plan: Patient was not able to keep for oral medication down resulting in severe HTN on admission. She was started on IV metoprolol and IV hydralazine with enalapril. Able to tolerate oral liquids and was transitioned back to oral medications with increasing metoprolol to 50 daily and her losartan to 100 daily. We have continued to hold her diuretic. BP stable now. Contineu to follow. (2) Diabetes type 1, controlled: Code(s): E10.9 - Type 1 diabetes mellitus without complications Status: Acute Assessment and Plan: Blood sugar was elevated with CO2 24 and beta hydroxybutyrate borderline elevated at 0.67. Tolerating oral intake mostly. She has been transitioned back to Lantus plus Novolog with meals. She was started at 50U lantus and 8U Novolog. Glucose reasonable now. Will follow with sliding scale. (3) Cyclical vomiting: Code(s): R11.15 - Cyclical vomiting syndrome unrelated to migraine Status: Acute Assessment and Plan: Patient with n/v resulting in her inability to take her medications and causing the sever HTN. Patient with some n/v today. Could be gastroparesis or from her cyclic vomiting. Will monitor for now to see if her symptoms improve. (4) Anxiety and depression: Code(s): F41.9 - Anxiety disorder, unspecified; F32.9 - Major depressive disorder, single episode, unspecified Status: Acute Assessment and Plan: Mood stable. Continue her usual medications now that she is able to take oral intake. (5) Toe ulcer: Code(s): L97.509 - Non-pressure chronic ulcer of other part of unspecified foot with unspecified severity Status: Acute Assessment and Plan: Appears chronic and toe x-ray showed no osteo. Seen by wound care here. She does relate that she had MRI some 2 weeks ago that showed no osteo. She will follow-up with her cleaners on discharge. (6) Leukocytosis: Code(s): D72.829 - Elevated white blood cell count, unspecified Status: Acute Assessment and Plan: WBC up to 22K. Probably secondary to gastroenteritis and/or stress related. CT abdomen unremarkable. Chest x-ray atelectasis only and no cough or fever. UA minimal wbc's but marked squamous cells and no urinary symptoms. Blood culture so far no growth. WBC close to normal now. (7) DVT prophylaxis: Code(s): Z29.9 - Encounter for prophylactic measures, unspecified Status: Acute Assessment and Plan: Toddx Subjective Date/time seen: 07/05/20 10:48 Interval history: Date of visit 07/05 44yo female with HTN and DM admitted with nausea and vomiting, accelerated hypertension, and elevated blood sugar. Assuming care. Chart reviewed. Today she is feeling Much worse. Feels nauseous this morning. Complains of headache. Having chills. No chest pain or shortness of breath. Does complain of nonproductive cough and sore throat. She also has dysuria which has been persistent. No diarrhea since admission. She is voiding infrequently at home and has evidence of urine retention she thinks. She has a history of gastroparesis but is allergic to Reglan. Exam Narrative: Exam Narrative: AF 151/86 76 20 97% ra Gen - NARD Chest - CTA bilaterally, nml RR CV - RRR S1/S2 Abd -Soft. Nondistended. Positive bowel sounds. Bladder is distended. Ext - No pedal edema. 2+ DP pulses bilaterally Psych - Nml mood and affect Skin - left posterior great toe dried eschar with a small central hole Objective Data Vital Signs Vital Signs: Vital Signs - 24 hr 07/04/20 11:57 07/04/20 12:00 07/04/20 12:42 Temperature 98.3 F Pulse Rate 100 106 H 88 Respiratory Rate 20 Blood Pressure 152/86 H Pulse Oximetry 98 07/04/20 13:57 07/04/20 16:00 07/04/20 17:55 Temperature
[2020-07-05 11:30] LABS: Glucose Point of Care 206 (65-105)
[2020-07-05] MEDS: INSULIN ASPART (*BKC) 100 UNITS/ML SUB-Q ×2 (11:48→18:23)
[2020-07-05] MEDS: INSULIN GLARGINE (*BKC) 100 UNITS/ML 50 UNITS SUB-Q (11:51)
[2020-07-05 13:25] VITALS: BP 155/84; PULSE 82; RESP 18; TEMP 36.7; O2SAT 96
[2020-07-05] MEDS: traMADol HCL (*CRX) 50 MG TABLET PO (15:32)
[2020-07-05 16:20] LABS: Glucose Point of Care 181 (65-105)
[2020-07-05 19:33] LABS: Glucose Point of Care 243 (65-105)
[2020-07-05] MEDS: ENOXAPARIN 40 MG/0.4 ML SYRINGE SUB-Q (21:05)
[2020-07-05] MEDS: PRAZOSIN HCL 1 MG CAPSULE 2 MG PO (21:05)
[2020-07-05] MEDS: AMITRIPTYLINE HCL 25 MG TABLET PO (21:06)
[2020-07-05] MEDS: GABAPENTIN 300 MG CAPSULE PO (21:06)
[2020-07-05] MEDS: SERTRALINE HCL 50 MG TABLET 100 MG PO (21:06)
[2020-07-05] MEDS: ALPRAZolam (*CRX) 0.5 MG TABLET PO (21:08)
[2020-07-05 21:59] LABS: Glucose Point of Care 223 (65-105)
[2020-07-05 22:02] VITALS: BP 181/95; PULSE 71; RESP 20; TEMP 36.9; O2SAT 98
[2020-07-05 22:46] VITALS: BP 187/90; PULSE 72; RESP 20; TEMP 36.8; O2SAT 96
[2020-07-05] MEDS: hydrALAZINE HCL 20 MG/ML VIAL IV PUSH (23:07)
[2020-07-06] VITALS: BP 149/83; PULSE 93; RESP 20; TEMP 36.6; O2SAT 94
[2020-07-06] MEDS: ZOLPIDEM TARTRATE (*CRX) 5 MG TABLET 10 MG PO (00:44)
[2020-07-06 05:53] VITALS: BP 132/82; PULSE 94; RESP 20; TEMP 36.6; O2SAT 95
[2020-07-06 07:43] LABS: Glucose Point of Care 174 (65-105)
[2020-07-06 08:06] VITALS: PULSE 80
[2020-07-06] MEDS: LOSARTAN POTASSIUM 100 MG TABLET PO (08:06)
[2020-07-06] MEDS: PANTOPRAZOLE 40 MG TABLET PO ×2 (08:06→17:15)
[2020-07-06] MEDS: METOPROLOL SUCCINATE EXT REL 50 MG TABCR PO (08:06)
[2020-07-06] MEDS: FLUTICASONE PROPIONATE 0.05% NA SPR 16 GM BTL (*BKC) 2 SPRAY NASAL (08:06)
[2020-07-06] MEDS: INSULIN ASPART (*BKC) 100 UNITS/ML 8 UNITS SUB-Q ×3 (08:07→17:15)
[2020-07-06] MEDS: ONDANSETRON INJ 4 MG/2 ML VIAL IV PUSH ×2 (08:07→12:36)
[2020-07-06] MEDS: SILVERGEL (ELTA) 45 ML 1 APPLIC TOPICAL (08:08)
[2020-07-06 10:42] LABS: Add Urine Microscopic? YES; Appearance Urine Clear (Clear); Bilirubin Urine Negative (Negative); Blood Urine Negative (Negative); Color Urine Yellow (Yellow); Glucose Urine UA 1+ mg/dL (Negative); Ketones Urine Negative (Negative); Leukocyte Esterase Ur Negative LEU/UL (Negative); Mucus Urine Rare /lpf; Nitrate Urine Negative (Negative); Protein Urine 2+ mg/dL (Negative); RBC Urine 0-2 /hpf (0-2); Specific Grav Ur 1.025 (1.001-1.035); Squamous Epithelial Cell Urine Moderate /hpf (Few); Urobilinogen Urine Negative mg/dL (<2.0); WBC Urine 0-3 /hpf
[2020-07-06 12:07] LABS: Glucose Point of Care 171 (65-105)
[2020-07-06] MEDS: INSULIN GLARGINE (*BKC) 100 UNITS/ML 50 UNITS SUB-Q (12:33)
[2020-07-06 15:36] VITALS: BP 158/84; PULSE 76; RESP 15; TEMP 37.1; O2SAT 97
--- NOTE | 2020-07-06 16:06 | PM.DS ---
DS: Admitting Diagnosis Admitting Diagnosis Admitting Diagnosis: nausea and vomiting intractable/diabetes mellitus/ DS: Discharge Diagnosis Discharge Diagnosis (1) Hypertensive urgency: Code(s): I16.0 - Hypertensive urgency Status: Acute Assessment and Plan: Patient was not able to keep for oral medication down resulting in severe HTN on admission. She was started on IV metoprolol and IV hydralazine with enalapril. Able to tolerate oral liquids and was transitioned back to oral medications with increasing metoprolol to 50 daily and her losartan to 100 daily. We have continued to hold her diuretic. BP stable now. (2) Diabetes type 1, controlled: Code(s): E10.9 - Type 1 diabetes mellitus without complications Status: Acute Assessment and Plan: Blood sugar was elevated with CO2 24 and beta hydroxybutyrate borderline elevated at 0.67. Tolerating oral intake mostly now. She has been transitioned back to Lantus plus Novolog with meals. She was started at 50U lantus and 8U Novolog. Glucose improved. (3) Cyclical vomiting: Code(s): R11.15 - Cyclical vomiting syndrome unrelated to migraine Status: Acute Assessment and Plan: Patient with n/v resulting in her inability to take her medications and causing the severe HTN. Bedside test was negative. Patient with some n/v off and on and could be gastroparesis and/or from her cyclic vomiting. Advised she take small meals more frequently. She is allergic to Reglan. (4) Anxiety and depression: Code(s): F41.9 - Anxiety disorder, unspecified; F32.9 - Major depressive disorder, single episode, unspecified Status: Acute Assessment and Plan: Mood stable. We resumed her home medications now that she is able to take oral intake. (5) Toe ulcer: Code(s): L97.509 - Non-pressure chronic ulcer of other part of unspecified foot with unspecified severity Status: Acute Assessment and Plan: Appears chronic and toe x-ray showed no osteo. Seen by wound care here. She does relate that she had MRI some 2 weeks ago that showed no osteo. 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 Doppler of the right lower extremity was negative for DVT. She has some edema around the foot and ankle but no evidence of cellulitis; no pain or drainage from the wound. No trauma to the right ankle/foot (6) Leukocytosis: Code(s): D72.829 - Elevated white blood cell count, unspecified Status: Acute Assessment and Plan: WBC up to 22K. Probably secondary to gastroenteritis and/or stress related. CT abdomen and pelvis was unremarkable only showing 2 cm corpus luteal cyst of the right ovary with small amount of free fluid in the pelvis. Chest x-ray atelectasis only and no cough or fever. UA minimal wbc's but marked squamous cells and no urinary symptoms. Blood culture so far no growth. Repeated UA due to persistent dysuria but UA was not consistent with UTI. WBC trended down and is close to normal now. DS: Summary Hospital Course Reason for hospitalization: 44yo female with DM here for nausea and vomiting. Please see H&P for details. Hospital Course: As above Time Spent with Patient Time attestation: Total time spent providing and/or coordinating discharge services:34 minutes Time spent: Greater than 30 minutes Exam Narrative: Exam Narrative: AF 98.7 158/84 76 15 Gen - NARD Chest - CTA bilaterally, nml RR CV - RRR S1/S2 Abd -Soft. NT/ND, +BS Ext - right periankle soft tissue edema. no bony pain to the right foot and ankle. Nml sensation to the right foot. Normal ROM to the right ankle. Psych - Nml mood and affect Skin - left posterior great toe dried eschar with a small central hole without drainage or strong odor. No erythema to the right foot. DS: Data Data Completed and Pending Labs on day of discharge: Labs from last 24 hours 07/06/07/06
[2020-07-06 16:32] LABS: Glucose Point of Care 294 (65-105)
[2020-07-06] MEDS: INSULIN ASPART (*BKC) 100 UNITS/ML SUB-Q (17:14)
== END 2020-07-06 18:01 | disposition home or self-care (01) ==
LOC: ANHED 06:59 → ANH2MED 07:34 → ANHIMU 10:17 → ANH2MED 07-04 20:22
PROVIDERS: Emergency Medicine; Internal Medicine; Admitting Provider Family Medicine; Emergency Provider Emergency Medicine; PCP Internal Medicine; Visit Provider Internal Medicine
DX: I16.0 Hypertensive urgency (principal); E10.9 Type 1 diabetes mellitus without complications; R11.15 Cyclical vomiting syndrome unrelated to migraine; K76.0 Fatty (change of) liver, not elsewhere classified; E78.5 Hyperlipidemia, unspecified; I10 Essential (primary) hypertension; D72.829 Elevated white blood cell count, unspecified; Z79.4 Long term (current) use of insulin; N83.11 Corpus luteum cyst of right ovary; F41.9 Anxiety disorder, unspecified; L97.509 Non-pressure chronic ulcer of other part of unspecified foot with unspecified severity; Z29.9 Encounter for prophylactic measures, unspecified; R94.31 Abnormal electrocardiogram [ECG] [EKG]; R91.8 Other nonspecific abnormal finding of lung field; Z23 Encounter for immunization; M79.89 Other specified soft tissue disorders
CPT/HCPCS: 36415; 71045; 73660; 74177; 80053; 80069; 80307; 81001; 81025; 82010; 82550; 82948; 83605; 83690; 83735; 84100; 84484; 85025; 87040; 90471; 90686; 93005; 93971; 96361; 96365; 96366; 96368; 96372; 96374; 96375; 96376; 99285; A9270; G0008; G0378; J0360; J1650; J1815; J2060; J2405; J2550; J3475; J3480; J7030; J7050; Q9967

== ENCOUNTER 2020-09-06 08:59 | Emergency (ER) | payer BC, SELFPAY ==
[2020-09-06] VITALS (14 sets, daily range): BP systolic 176–220; BP diastolic 85–110; PULSE 99–117; RESP 14–20; TEMP 36.8; O2SAT 93–99
--- NOTE | ~2020-09-06 | XR_ITS ---
EXAMINATION: XR chest 1V portable EXAM DATE: 09/06/2020 10:58 INDICATION: Fever, nausea vomiting and diarrhea. History of diabetes. TECHNIQUE: Portable AP frontal chest x-ray was obtained. Comparison is made to prior examination from 07/04/2020. FINDINGS: Mild cardiomegaly. There is pulmonary vascular congestion. No confluent consolidation, pneu mothorax or pleural effusion suspected. There are no osseous abnormalities identified. IMPRESSION: Prominent cardiac silhouette. Pulmonary vascular congestion. Reviewed, dictated and finalized at location A. 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
[2020-09-06 09:45] LABS: Glucose Point of Care 202 (65-105)
--- NOTE | 2020-09-06 09:47 | ED.GENADULT ---
HPI - General Adult General Chief complaint: Nausea/Vomiting/Diarrhea <Florida Funk PA-C - Last Filed: 09/06/20 18:00> Stated complaint: cyclic vomiting/ neg covid 09/02 <Florida Funk PA-C - Last Filed: 09/06/20 18:00> Time Seen by Provider: 09/06/20 09:08 <GENET Meza Last Filed: 09/06/20 18:00> Source: patient <Florida Funk PA-C - Last Filed: 09/06/20 18:00> Mode of arrival: ambulatory <GENET Meza Last Filed: 09/06/20 18:00> Limitations: no limitations <Florida Funk PA-C - Last Filed: 09/06/20 18:00> History of Present Illness HPI narrative: Patient presents with chief complaint of activation of her cyclic vomiting syndrome that began yesterday. Patient states she has passed her 12-hour cyclic vomiting window so now her vomiting has ceased due to her taking Zofran. Patient reports that she is still nauseous and her blood pressure is elevated because she did not take her medications this morning despite her vomiting starting last night. Patient states that she was tested on Saturday for COVID after having a coworker tested positive. Patient states yesterday she began feeling feverish, having body aches, headache, and diffuse abdominal pain. Patient states her only symptom presently is fatigue and nausea. Patient states normally after return she has episode of cyclic vomiting daily she requires fluids so that is why she came to the emergency department today. <Florida Funk PA-C - Last Filed: 09/06/20 18:00> Related Data Home medications: Home Medications Medication Instructions Recorded Confirmed acyclovir 400 mg tablet 400 mg PO BID 11/02/19 08/26/20 alprazolam 1 mg tablet 0.5 mg PO TID PRN 11/02/19 08/26/20 docusate sodium 100 mg capsule 100 mg PO BID PRN 11/02/19 08/26/20 insulin aspart U-100 100 unit/mL 1 sliding scale dose SUB-Q 11/02/19 08/26/20 subcutaneous solution USEASDIRECTD insulin glargine 100 unit/mL (3 58 unit SUB-Q DAILY ml 11/02/19 08/26/20 mL) subcutaneous pen sertraline 100 mg tablet 100 mg PO HS 11/02/19 08/26/20 trazodone 100 mg tablet 50 mg PO DAILY tablet 11/02/19 08/26/20 zolpidem 10 mg tablet 10 mg PO QPM tablet 11/02/19 08/26/20 cetirizine 10 mg PO DAILY 07/03/20 08/26/20 cyclobenzaprine 10 mg PO TID PRN 07/03/20 08/26/20 prazosin 2 mg PO HS 07/03/20 08/26/20 tramadol 50 mg PO Q6H PRN 07/03/20 08/26/20 <Florida Funk PA-C - Last Filed: 09/06/20 18:00> Allergies/adverse reactions: Allergies Allergy/AdvReac Type Severity Reaction Status Date / Time metoclopramide Allergy Severe Rash Verified 07/03/20 10:36 latex Allergy Unknown itching Verified 07/03/20 10:36 <Florida Funk PA-C - Last Filed: 09/06/20 18:00> Review of Systems Review of Systems: Narrative: CONSTITUTIONAL: Reports fatigue resolved fever denies fever, chills, or sweats. EYES: Denies visual changes, redness, or discharge. ENT: Denies rhinorrhea, congestion, sore throat, or otalgia. CARDIOVASCULAR: Denies chest pain, palpitations, or edema. RESPIRATORY: Denies cough or dyspnea. GASTROINTESTINAL: Reports nausea and resolved vomiting and abdominal pain. Denies diarrhea. GENITOURINARY: Denies dysuria or hematuria. SKIN: Denies rash or itching. MUSCULOSKELETAL: Denies back pain, myalgia, or joint pain NEUROLOGIC: Denies present headache, numbness, dizziness, or weakness. PSYCHIATRIC: Denies anxiety or depression. <Florida Funk PA-C - Last Filed: 09/06/20 18:00> [facility] Past Medical History Medical History: Medical History (Updated 09/06/20 @ 12:27 by Florida Funk PA-C) Allergies Anemia Anxiety Back pain Bronchitis Chicken pox Cyclical vomiting Depression Diabetes type 1, controlled Endometriosis Fatty liver Fibromyalgia Foot fracture, left GERD (gastroesophageal reflux disease) Heart murmur Herpes HLD (hyperlipidemia) HTN (hypertension) Hypothyroidism IBS (irritable bowel syndrome) Leukocytosis Peptic ulc
[2020-09-06 09:55] LABS: Basophils Percent Auto 0.2 % (0.2-1.2); Hematocrit 41.6 % (37.0-47.0); Hemoglobin 14.1 g/dL (12.0-15.0); Immature Granulocyte Absolute 0.08 K/mm3 (0.00-0.031); Immature Granulocyte Percent A 0.4 % (0-0.5); Lymphocytes Percent Auto 8.4 % (18.3-44.2); Mean Corpuscular HGB Conc 33.9 g/dl (32-36); Mean Corpuscular Hemoglobin 28.7 pg (26-34); Mean Corpuscular Volume 84.6 fl (80-100); Mean Platelet Volume 9.8 fl (7.4-10.4); Monocytes Absolute Auto 0.8 K/mm3 (0.1-0.6); Monocytes Percent Auto 3.9 % (2.6-8.5); Neutrophils Absolute Auto 16.6 K/mm3 (1.3-6.7); Neutrophils Percent Auto 87.1 % (45.5-73.1); Platelet Count Result 323 k/mm3 (150-375); Red Blood Count 4.92 M/mm3 (4.2-5.4); Red Cell Distribution Width 12.6 % (11.5-14.5); White Blood Count 19.1 K/mm3 (4.5-10.0)
[2020-09-06 10:02] LABS: Add Urine Microscopic? YES; Appearance Urine Clear (Clear); Bacteria Urine Trace /hpf; Bilirubin Urine Negative (Negative); Blood Urine 2+ (Negative); Color Urine Yellow (Yellow); Glucose Urine UA 3+ mg/dL (Negative); Ketones Urine Trace mg/dL (Negative); Leukocyte Esterase Ur Negative LEU/UL (Negative); Mucus Urine Rare /lpf; Nitrate Urine Negative (Negative); Protein Urine 3+ mg/dL (Negative); Specific Grav Ur 1.028 (1.001-1.035); Squamous Epithelial Cell Urine Few /hpf (Few); Urobilinogen Urine Negative mg/dL (<2.0)
[2020-09-06 10:06] LABS: Alanine Aminotransferase 25 U/L (4-35); Albumin Level 4.3 g/dL (3.5-5.1); Alkaline Phosphatase 111 U/L (38-126); Anion Gap 11 mmol/L (8-16); Aspartate Amino Transferase 45 U/L (14-36); Bilirubin,Total 0.8 mg/dL (0.2-1.3); Blood Urea Nitrogen 20 mg/dL (7-17); Calcium 10.2 mg/dL (8.4-10.2); Carbon Dioxide 28 mmol/L (22-30); Chloride 101 mmol/L (98-107); Estimated CRCL calculation 103 ml/min; Estimated Glomerular Filt Rate > 60; Glucose 210 mg/dL (65-105); Lipase 27 U/L (23-300); Potassium 3.2 mmol/L (3.4-5.0); Sodium 140 mmol/L (137-145)
[2020-09-06] MEDS: ONDANSETRON INJ 4 MG/2 ML VIAL IV PUSH (10:08)
[2020-09-06] MEDS: SODIUM CHLORIDE 0.9% IV 1,000 ML 999 ML IV CONT (10:08)
[2020-09-06] MEDS: PROCHLORPERAZINE EDISYLATE 10 MG/2 ML VIAL IV PUSH (11:03)
[2020-09-06] MEDS: METOPROLOL SUCCINATE EXT REL 50 MG TABCR PO (11:21)
[2020-09-06] MEDS: POTASSIUM CHLORIDE 20 MEQ PACKET (FOR LIQUID) 40 MEQ PO (11:21)
[2020-09-06] MEDS: LOSARTAN POTASSIUM 100 MG TABLET PO (11:51)
[2020-09-06] MEDS: hydrALAZINE HCL 20 MG/ML VIAL 10 MG IV PUSH (12:07)
[2020-09-06 19:16] LABS: SARS-CoV-2 RNA PCR Positive
== END 2020-09-06 12:38 | disposition home or self-care (01) ==
PROVIDERS: Physician Assistant; Emergency Provider General Practice; PCP Internal Medicine
DX: R11.15 Cyclical vomiting syndrome unrelated to migraine (principal); I10 Essential (primary) hypertension; U07.1 COVID-19; E10.8 Type 1 diabetes mellitus with unspecified complications; Z79.4 Long term (current) use of insulin; N80.9 Endometriosis, unspecified; M79.7 Fibromyalgia; E78.5 Hyperlipidemia, unspecified; K21.9 Gastro-esophageal reflux disease without esophagitis; K58.9 Irritable bowel syndrome, unspecified; E03.9 Hypothyroidism, unspecified; Z87.11 Personal history of peptic ulcer disease; M06.9 Rheumatoid arthritis, unspecified; G47.30 Sleep apnea, unspecified; Z87.440 Personal history of urinary (tract) infections; E53.8 Deficiency of other specified B group vitamins; Z86.2 Personal history of diseases of the blood and blood-forming organs and certain disorders involving the immune mechanism; F41.9 Anxiety disorder, unspecified; F32.9 Major depressive disorder, single episode, unspecified
CPT/HCPCS: 36415; 71045; 80053; 81001; 83690; 85025; 87086; 87088; 87635; 96361; 96374; 96375; 99284; A9270; C9803; J0360; J0780; J2405; J7030; U0003

== ENCOUNTER 2020-09-10 05:23 | Emergency (ER) | payer BC, SELFPAY ==
--- NOTE | ~2020-09-10 | XR_ITS ---
XR chest 1V portable 09/10/2020 06:05 Indication: Chest pain Procedure: AP portable chest Comparison: Comparison to multiple prior studies sequentially, with oldest reviewed study dated 12/28. Findings: Heart size normal. Left basilar atelectasis. No focal pneumonia, edema, pleural effusion or pneumothorax. No acute osseous abnormality. Impression: 1: Left basilar atelectasis. Reviewed, dictated and finalized at location A. R AND SCALER Impression: 1: Left basilar atelectasis.
[2020-09-10 05:32] VITALS: BP 196/100; PULSE 86; RESP 16; TEMP 37; O2SAT 99
--- NOTE | 2020-09-10 05:38 | ECG_ITS ---
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
--- NOTE | 2020-09-10 05:54 | ED.SOB ---
HPI - SOB/Dyspnea General Chief Complaint: Shortness of Breath/Dyspnea Stated Complaint: shortness of breath Time Seen by Provider: 09/10/20 05:28 History of Present Illness HPI Narrative: She reports about 1 week of nausea, cough, SOB. Today she developed pain in her chest. It is sharp and worse with breathing. No fever. She was seen here 34 days ago and swabbed for COVID-19. She has continued to work and socialize and reports that she does not know her results. On chart review she was positive. Related Data Home Medications Medication Instructions Recorded Confirmed acyclovir 400 mg tablet 400 mg PO BID 11/02/19 09/14/20 alprazolam 1 mg tablet 0.5 mg PO TID PRN 11/02/19 09/14/20 docusate sodium 100 mg capsule 100 mg PO BID PRN 11/02/19 09/14/20 insulin aspart U-100 100 unit/mL 1 sliding scale dose SUB-Q 11/02/19 09/14/20 subcutaneous solution USEASDIRECTD sertraline 100 mg tablet 100 mg PO HS 11/02/19 09/14/20 trazodone 100 mg tablet 50 mg PO DAILY tablet 11/02/19 09/14/20 zolpidem 10 mg tablet 10 mg PO QPM tablet 11/02/19 09/14/20 cetirizine 10 mg PO DAILY 07/03/20 09/14/20 cyclobenzaprine 10 mg PO TID PRN 07/03/20 09/14/20 prazosin 2 mg PO HS 07/03/20 09/14/20 tramadol 50 mg PO Q6H PRN 07/03/20 09/14/20 insulin degludec 100 unit/mL 70 unit SUBCUT DAILY ml 09/14/20 09/14/20 subcutaneous solution Allergies Allergy/AdvReac Type Severity Reaction Status Date / Time metoclopramide Allergy Severe Rash Verified 07/03/20 10:36 latex Allergy Unknown itching Verified 07/03/20 10:36 Review of Systems Review of Systems: All systems reviewed & are unremarkable except as noted in HPI and below Constitutional: Constitutional: Reports chills Cardiovascular: Cardiovascular: Reports chest pain Respiratory: Respiratory: Reports cough and Reports dyspnea Gastrointestinal: Gastrointestinal: Reports nausea and Reports vomiting Genitourinary: Genitourinary: Denies dysuria Musculoskeletal: Musculoskeletal: Reports back pain and Reports myalgias Neurologic: Reports weakness [facility] Past Medical History Medical History Allergies Anemia Anxiety Back pain Bronchitis Chicken pox Cyclical vomiting Depression Diabetes type 1, controlled Endometriosis Fatty liver Fibromyalgia Foot fracture, left GERD (gastroesophageal reflux disease) Heart murmur Herpes HLD (hyperlipidemia) HTN (hypertension) Hypothyroidism IBS (irritable bowel syndrome) Leukocytosis Peptic ulcer Pneumonia Rheumatoid arthritis Sleep apnea Uterine fibroid UTI (urinary tract infection) Vaginal disorder Vitamin B 12 deficiency Surgical History Surgical History History of hysterectomy History of laparoscopy pelvic laparoscopy with removal of uterine fibroids Hx of cholecystectomy Family History Family History Mother Diabetes mellitus Hypertension Family history of elevated blood lipids Sibling Family history of obesity Patient's sister is in good health Father Hypertension Family history of cardiovascular disease Other Acute myocardial infarction Family history of arthritis Family history of heart disease in male family member before age 55 Family history of thyroid disease Social History Social History Social History: states she lives alone, with no children and her at a young age,33 Smoking status: Never smoker Alcohol intake: never Substance use: never Gender identity (if verbalized by the patient): Female Spiritual care concerns: Yes (Presbyterian) Exam Const: General: no acute distress and alert Nutritional Appearance: obese Orientation/consciousness: patient oriented x3 HENMT: Head: normal to inspection Neck: Neck: normal visual inspection Chest: Chest p
[2020-09-10] MEDS: KETOROLAC (*BKC) 60 MG/2 ML VIAL IM (06:16)
[2020-09-10] MEDS: ONDANSETRON HCL ODT 4 MG TABLET PO (06:16)
== END 2020-09-10 06:46 | disposition home or self-care (01) ==
PROVIDERS: Emergency Provider Emergency Medicine; PCP Internal Medicine
DX: U07.1 COVID-19 (principal); R11.0 Nausea; I49.3 Ventricular premature depolarization; I45.10 Unspecified right bundle-branch block; I45.2 Bifascicular block; R94.31 Abnormal electrocardiogram [ECG] [EKG]
CPT/HCPCS: 71045; 93005; 96372; 99283; A9270; J1885

== ENCOUNTER 2020-10-19 07:07 | Outpatient (CLI) | payer BC, SELFPAY ==
[2020-10-19 07:40] LABS: Potassium 3.6 mmol/L (3.4-5.0)
== END 2020-10-19 07:08 | disposition home or self-care (01) ==
PROVIDERS: PCP Internal Medicine; Visit Provider Clinical Nurse Specialist
DX: E87.6 Hypokalemia (principal)
CPT/HCPCS: 36415; 84132

== ENCOUNTER 2020-12-07 08:04 | Outpatient (CLI) | payer BC, SELFPAY ==
[2020-12-07 08:42] LABS: Cholesterol 207 mg/dL (0-200); HDL Direct 41 mg/dL; Triglycerides 181 mg/dL (<150)
[2020-12-07 08:52] LABS: LDL Cholesterol Direct 138 mg/dL
[2020-12-07 09:02] LABS: Basophils Absolute Auto 0.1 K/mm3 (0.0-0.1); Basophils Percent Auto 0.5 % (0.2-1.2); Eosinophils Absolute Auto 0.2 K/mm3 (0-0.3); Eosinophils Percent Auto 1.7 % (0-4.4); Hematocrit 40.8 % (37.0-47.0); Hemoglobin 13.5 g/dL (12.0-15.0); Immature Granulocyte Absolute 0.06 K/mm3 (0.00-0.031); Immature Granulocyte Percent A 0.6 % (0-0.5); Lymphocytes Absolute Auto 2.27 K/mm3 (0.9-3.2); Lymphocytes Percent Auto 21.1 % (18.3-44.2); Mean Corpuscular HGB Conc 33.1 g/dl (32-36); Mean Corpuscular Volume 87.7 fl (80-100); Mean Platelet Volume 9.7 fl (7.4-10.4); Monocytes Absolute Auto 0.5 K/mm3 (0.1-0.6); Monocytes Percent Auto 4.6 % (2.6-8.5); Neutrophils Absolute Auto 7.7 K/mm3 (1.3-6.7); Neutrophils Percent Auto 71.5 % (45.5-73.1); Platelet Count Result 275 k/mm3 (150-375); Red Blood Count 4.65 M/mm3 (4.2-5.4); White Blood Count 10.8 K/mm3 (4.5-10.0)
[2020-12-07 14:04] LABS: Anion Gap 5 mmol/L (8-16); Blood Urea Nitrogen 17 mg/dL (7-17); Calcium 9.9 mg/dL (8.4-10.2); Carbon Dioxide 29 mmol/L (22-30); Chloride 104 mmol/L (98-107); Estimated Glomerular Filt Rate > 60; Glucose 206 mg/dL (65-105); Potassium 4.2 mmol/L (3.4-5.0); Sodium 138 mmol/L (137-145)
[2020-12-07 14:50] LABS: Hemoglobin A1C 7.4 % (<5.7)
== END 2020-12-07 12:30 | disposition home or self-care (01) ==
PROVIDERS: PCP Internal Medicine; Visit Provider Clinical Nurse Specialist
DX: E10.622 Type 1 diabetes mellitus with other skin ulcer (principal); I10 Essential (primary) hypertension; E87.6 Hypokalemia
CPT/HCPCS: 36415; 80048; 80061; 83036; 85025

== ENCOUNTER 2020-12-14 10:42 | Outpatient (CLI) | payer BC, SELFPAY | END 2020-12-14 10:43 | disposition home or self-care (01) | LOC: ANHCOVIDVC 10:42 | PROVIDERS: PCP Internal Medicine | DX: Z23 Encounter for immunization (principal) | CPT/HCPCS: 0001A; 91300 ==

== ENCOUNTER 2020-12-24 10:34 | Emergency (ER) | payer BC, SELFPAY ==
--- NOTE | ~2020-12-24 | US_ITS ---
EXAMINATION: US venous doppler [facility] DATE: 12/24/2020 14:03 INDICATION: Lower limb pain and swelling. TECHNIQUE: Grayscale ultrasound images without and with compression and Doppler ultrasound images of the bilateral lower extremity veins were obtained. COMPARISON: None. FINDINGS: The visualized portions of right common femoral vein, profunda (deep) femoral vein, femoral vein, pop liteal vein, posterior tibial veins, peroneal veins, gastrocnemius vein and greater saphenous vein ou tflow are patent. The visualized portions of left common femoral vein, profunda femoral vein, femoral vein, popliteal v ein, posterior tibial veins, peroneal veins, gastrocnemius vein and greater saphenous vein outflow ar e patent. IMPRESSION: 1. No deep venous thrombosis in either lower limb. Reviewed, dictated and finalized at location A.
--- NOTE | ~2020-12-24 | XR_ITS ---
EXAMINATION: XR chest 1V portable DATE: 12/24/2020 11:43 INDICATION: Lower limb swelling TECHNIQUE: frontal view of the chest was obtained. COMPARISON: Chest radiograph dated 09/10/2020 FINDINGS: The lungs are clear with no focal airspace opacities, pulmonary edema, pleural effusion or pneumothor ax. The cardiomediastinal silhouette is normal. Visualized bones and soft tissues are unremarkable. IMPRESSION: 1. No acute cardiopulmonary disease. Reviewed, dictated and finalized at location A.
[2020-12-24 10:52] VITALS: BP 152/81; PULSE 99; RESP 18; TEMP 36.4; O2SAT 100
--- NOTE | 2020-12-24 11:02 | PC.NURSE ---
Patient to restroom prior to going to room at this time.
[2020-12-24 11:13] VITALS: BP 164/98; PULSE 100; RESP 22; TEMP 37.1; O2SAT 99
--- NOTE | 2020-12-24 11:31 | ECG_ITS ---
Measurements Intervals [place] Rate: 100 P: 57 CT: 192 QRS: -71 QRSD: 103 T: 81 QT: 384 QTc: 495 Interpretive Statements SINUS TACHYCARDIA VENTRICULAR PREMATURE COMPLEX POSSIBLE LEFT ATRIAL ENLARGEMENT INCOMPLETE RIGHT BUNDLE BRANCH BLOCK LEFT ANTERIOR FASCICULAR BLOCK NONSPECIFIC ST & T-WAVE ABNORMALITY- HIGH LATERAL LEADS BASELINE ARTIFACT- I, II, III, AVR ABNORMAL ECG Electronically Signed On 12-24-2020 16:12:48 CDT by Betito Huber D.O.
[2020-12-24 11:52] LABS: Basophils Percent Auto 0.2 % (0.2-1.2); Hematocrit 37.3 % (37.0-47.0); Hemoglobin 12.7 g/dL (12.0-15.0); Immature Granulocyte Absolute 0.09 K/mm3 (0.00-0.031); Immature Granulocyte Percent A 0.5 % (0-0.5); Lymphocytes Absolute Auto 1.06 K/mm3 (0.9-3.2); Lymphocytes Percent Auto 6.3 % (18.3-44.2); Mean Corpuscular Hemoglobin 28.8 pg (26-34); Mean Corpuscular Volume 84.6 fl (80-100); Mean Platelet Volume 9.8 fl (7.4-10.4); Monocytes Absolute Auto 0.7 K/mm3 (0.1-0.6); Monocytes Percent Auto 4.3 % (2.6-8.5); Neutrophils Absolute Auto 14.8 K/mm3 (1.3-6.7); Neutrophils Percent Auto 88.7 % (45.5-73.1); Platelet Count Result 297 k/mm3 (150-375); Red Blood Count 4.41 M/mm3 (4.2-5.4); Red Cell Distribution Width 13.1 % (11.5-14.5); White Blood Count 16.7 K/mm3 (4.5-10.0)
[2020-12-24 11:56] LABS: Add Urine Microscopic? YES; Appearance Urine Cloudy (Clear); Bacteria Urine 1+ /hpf; Bilirubin Urine Negative (Negative); Blood Urine 2+ (Negative); Color Urine Amber (Yellow); Glucose Urine UA 3+ mg/dL (Negative); Ketones Urine Trace mg/dL (Negative); Leukocyte Esterase Ur Negative LEU/UL (Negative); Mucus Urine Rare /lpf; Nitrate Urine Negative (Negative); Protein Urine 3+ mg/dL (Negative); RBC Urine 0-2 /hpf (0-2); Specific Grav Ur 1.028 (1.001-1.035); Squamous Epithelial Cell Urine Occasional /hpf (Few); Urobilinogen Urine Negative mg/dL (<2.0); WBC Urine 0-3 /hpf
[2020-12-24] MEDS: HYOSCYAMINE SULFATE 0.125 MG TABLET PO (11:57)
[2020-12-24] MEDS: PANTOPRAZOLE SODIUM IV 40 MG VIAL IV PUSH (11:57)
[2020-12-24] MEDS: ONDANSETRON INJ 4 MG/2 ML VIAL (11:57)
[2020-12-24 12:04] LABS: Alanine Aminotransferase 18 U/L (4-35); Albumin Level 4.2 g/dL (3.5-5.1); Alkaline Phosphatase 116 U/L (38-126); Anion Gap 7 mmol/L (8-16); Aspartate Amino Transferase 26 U/L (14-36); Bilirubin,Total 0.8 mg/dL (0.2-1.3); Blood Urea Nitrogen 20 mg/dL (7-17); Calcium 10.5 mg/dL (8.4-10.2); Carbon Dioxide 26 mmol/L (22-30); Chloride 105 mmol/L (98-107); Estimated CRCL calculation 93 ml/min; Estimated Glomerular Filt Rate > 60; Glucose 215 mg/dL (65-105); Lipase 28 U/L (23-300); Sodium 138 mmol/L (137-145)
[2020-12-24 12:05] LABS: Magnesium 1.6 mg/dL (1.6-2.3); Phosphorus 1.5 mg/dL (2.5-4.5)
[2020-12-24] MEDS: LACTATED RINGERS 1,000 ML 999 ML IV CONT (12:05)
[2020-12-24 12:13] LABS: NT Pro B Type Natriuretic Pept 643 PG/ML (5-100)
--- NOTE | 2020-12-24 12:26 | ED.GENADULT ---
HPI - General Adult General Chief complaint: Unspecified Stated complaint: possible low potassium? s/p cyclic vomiting episod Time Seen by Provider: 12/24/20 11:19 Source: patient, family and old records reviewed Mode of arrival: ambulatory Limitations: no limitations History of Present Illness HPI narrative: Patient is a 45-year-old female who presents with chief complaint of abdominal pain rib pain lower extremity swelling with bouts of cyclic vomiting that occurred last night with vomiting throughout the night multiple episodes patient has history of cyclic vomiting patient on arrival is in no distress does not appear uncomfortable notes numerous occurrences in the past denies any hematemesis rectal bleeding or melena Related Data Home Medications Medication Instructions Recorded Confirmed acyclovir 400 mg tablet 400 mg PO BID 11/02/19 12/08/20 alprazolam 1 mg tablet 0.5 mg PO TID PRN 11/02/19 12/08/20 docusate sodium 100 mg capsule 100 mg PO BID PRN 11/02/19 12/08/20 insulin aspart U-100 100 unit/mL 1 sliding scale dose SUB-Q 11/02/19 12/08/20 subcutaneous solution USEASDIRECTD sertraline 100 mg tablet 100 mg PO HS 11/02/19 12/08/20 trazodone 100 mg tablet 50 mg PO DAILY tablet 11/02/19 12/08/20 zolpidem 10 mg tablet 10 mg PO QPM tablet 11/02/19 12/08/20 cetirizine 10 mg PO DAILY 07/03/20 12/08/20 cyclobenzaprine 10 mg PO TID PRN 07/03/20 12/08/20 prazosin 2 mg PO HS 07/03/20 12/08/20 tramadol 50 mg PO Q6H PRN 07/03/20 12/08/20 insulin degludec 100 unit/mL 70 unit SUBCUT DAILY ml 09/14/20 12/08/20 subcutaneous solution Allergies Allergy/AdvReac Type Severity Reaction Status Date / Time metoclopramide Allergy Severe Rash Verified 12/24/20 11:16 latex Allergy Unknown itching Verified 12/24/20 11:16 Review of Systems Review of Systems: All systems reviewed & are unremarkable except as noted in HPI and below PMFSH Past Medical History Medical History Allergies Anemia Anxiety Back pain Bronchitis Chicken pox Cyclical vomiting Depression Diabetes type 1, controlled Endometriosis Fatty liver Fibromyalgia Foot fracture, left GERD (gastroesophageal reflux disease) Heart murmur Herpes HLD (hyperlipidemia) HTN (hypertension) Hypothyroidism IBS (irritable bowel syndrome) Leukocytosis Peptic ulcer Pneumonia Rheumatoid arthritis Sleep apnea Uterine fibroid UTI (urinary tract infection) Vaginal disorder Vitamin B 12 deficiency Surgical History Surgical History (Updated 12/08/20 @ 11:01 by Mile Blanchard) H/O detached retina repair (~10/2020) History of hysterectomy History of laparoscopy pelvic laparoscopy with removal of uterine fibroids Hx of cholecystectomy Family History Family History Mother Diabetes mellitus Hypertension Family history of elevated blood lipids Sibling Family history of obesity Patient's sister is in good health Father Hypertension Family history of cardiovascular disease Other Acute myocardial infarction Family history of arthritis Family history of heart disease in male family member before age 55 Family history of thyroid disease Social History Social History Social History: states she lives alone, with no children and her at a young age,33 Smoking status: Never smoker Alcohol intake: never Substance use: never Gender identity (if verbalized by the patient): Female Spiritual care concerns: Yes (Presbyterian) Exam Narrative: Exam Narrative: GENERAL: Well-appearing, obese, and in no acute distress. HEAD: Normocephalic, atraumatic. EYES: PERRLA and EOMI. ENT: Nares clear, no rhinorrhea or epistaxis. Mucous membranes moist. NECK: Supple. No adenopathy or masses. CHEST: Clear to auscultation. No respiratory distress. No wheezes rales or rhonchi HEART:
[2020-12-24 13:12] VITALS: BP 163/97; PULSE 95; RESP 21; O2SAT 99
[2020-12-24 13:34] LABS: Lactic Acid Reflex 1.2 mmol/L (0.7-2.1)
[2020-12-24 15:22] VITALS: BP 148/78; PULSE 78; RESP 18; O2SAT 99
== END 2020-12-24 15:24 | disposition home or self-care (01) ==
PROVIDERS: Emergency Medicine Emergency Medical Services; Emergency Provider Emergency Medicine; PCP Internal Medicine
DX: R11.15 Cyclical vomiting syndrome unrelated to migraine (principal); R60.0 Localized edema; E10.9 Type 1 diabetes mellitus without complications; E78.5 Hyperlipidemia, unspecified; I10 Essential (primary) hypertension; E03.9 Hypothyroidism, unspecified; K21.9 Gastro-esophageal reflux disease without esophagitis; K58.9 Irritable bowel syndrome, unspecified; M79.7 Fibromyalgia; M06.9 Rheumatoid arthritis, unspecified; F32.9 Major depressive disorder, single episode, unspecified; F41.9 Anxiety disorder, unspecified; G47.30 Sleep apnea, unspecified; E53.8 Deficiency of other specified B group vitamins; Z87.440 Personal history of urinary (tract) infections; Z87.11 Personal history of peptic ulcer disease; Z79.4 Long term (current) use of insulin; R00.0 Tachycardia, unspecified; I49.3 Ventricular premature depolarization; I45.2 Bifascicular block; R94.31 Abnormal electrocardiogram [ECG] [EKG]
CPT/HCPCS: 36415; 71045; 80053; 81001; 81025; 83605; 83690; 83735; 83880; 84100; 85025; 87040; 93005; 93970; 96361; 96374; 96375; 99284; A9270; C9113; J0131; J2405; J7120

== ENCOUNTER 2021-01-04 11:42 | Outpatient (CLI) | payer BC, SELFPAY | END 2021-01-04 11:43 | disposition home or self-care (01) | LOC: ANHCOVIDVC 11:42 | PROVIDERS: PCP Internal Medicine | DX: Z23 Encounter for immunization (principal) | CPT/HCPCS: 0002A; 91300 ==

== ENCOUNTER → 2021-01-31 00:39 | Outpatient (CLI) | payer BC, SELFPAY ==
[2021-01-31 20:46] LABS: SARS-CoV-2 RNA PCR Negative
== END ==
PROVIDERS: PCP Internal Medicine; Visit Provider Internal Medicine Gastroenterology
DX: Z01.812 Encounter for preprocedural laboratory examination (principal); Z20.822 Contact with and (suspected) exposure to COVID-19
CPT/HCPCS: C9803; U0003; U0005

== ENCOUNTER 2021-02-03 00:49 | Day surgery (SDC) | payer BC, SELFPAY ==
[2021-01-10 15:43] VITALS: BMI 39.2
--- NOTE | 2021-01-19 16:06 | PC.NURSE ---
PT CALLED WITH RESCHEDULED TIMES AND DATES, REVIEWED INSTRUCTIONS, PT HAS NO QUESTIONS AND DENIES ANY CHANGES FROM PRIOR INTERVIEW
[2021-02-03 09:51] VITALS: BP 167/88; PULSE 88; RESP 20; TEMP 36.8; O2SAT 98
[2021-02-03] MEDS: LACTATED RINGERS 1,000 ML 150 ML IV CONT (10:01)
--- NOTE | 2021-02-03 10:13 | WPDANESEPPF ---
Anes - Initial Pre Proc Eval Procedure: Operation Date: 02/03/21 11:00 Proposed Procedures p Esophagogastroduodenoscopy - Joce Stanford MD Date/Time: 02/03/21 10:13 Surgeon: Joce Stanford MD Pre Op Diagnosis: GERD Patient Data Age: 45 Gender: F Height: 5 ft 8 in Weight: 115.5 kg Last Vital Signs Temp 98.2 F 02/03/21 09:51 Pulse 88 02/03/21 09:51 Resp 20 02/03/21 09:51 BP 167/88 H 02/03/21 09:51 Pulse Ox 98 02/03/21 09:51 Allergies Allergy/AdvReac Type Severity Reaction Status Date / Time metoclopramide Allergy Severe Rash Verified 02/03/21 09:49 latex Allergy Unknown itching Verified 02/03/21 09:49 Home Medications Medication Instructions Recorded Confirmed Type acyclovir 400 mg tablet 400 mg PO BID 11/02/19 02/03/21 History alprazolam 1 mg tablet 0.5 mg PO TID PRN 11/02/19 02/03/21 History docusate sodium 100 mg capsule 100 mg PO BID PRN 11/02/19 02/03/21 History insulin aspart U-100 100 unit/mL 1 sliding scale dose SUB-Q 11/02/19 02/03/21 History subcutaneous solution USEASDIRECTD sertraline 100 mg tablet 100 mg PO HS 11/02/19 02/03/21 History trazodone 100 mg tablet 50 mg PO DAILY tablet 11/02/19 02/03/21 History zolpidem 10 mg tablet 10 mg PO QPM PRN tablet 11/02/19 02/03/21 History fluticasone propionate 50 2 spray NASAL DAILY #18.2 ml 04/04/20 02/03/21 Rx mcg/actuation nasal spray,suspension gabapentin 300 mg capsule 300 mg PO .qhs #90 cap 06/06/20 02/03/21 Rx cetirizine 10 mg PO DAILY 07/03/20 02/03/21 History cyclobenzaprine 10 mg PO TID PRN 07/03/20 02/03/21 History prazosin [Minipress] 2 mg PO HS 07/03/20 02/03/21 History tramadol 50 mg PO Q6H PRN 07/03/20 02/03/21 History miconazole nitrate 1 appful VAGINAL HS 5 Days #45 gm 07/06/20 01/19/21 Rx ibuprofen 600 mg PO QID PRN #30 tablet 09/10/20 02/03/21 Rx insulin degludec 100 unit/mL 70 unit SUBCUT DAILY ml 09/14/20 02/03/21 History subcutaneous solution amlodipine 10 mg tablet 10 mg PO DAILY #90 tablet 10/04/20 02/03/21 Rx losartan 100 mg tablet 100 mg PO DAILY #90 tablet 10/04/20 02/03/21 Rx prochlorperazine maleate 10 mg 10 mg PO Q4-6H PRN #30 tablet 12/08/20 02/03/21 Rx tablet cholecalciferol (vitamin D3) 1,250 50,000 unit PO WEEKLY #8 cap 01/04/21 02/03/21 Rx mcg (50,000 unit) capsule amitriptyline 25 mg PO DAILY 02/03/21 02/03/21 History metoprolol succinate 50 mg PO DAILY 02/03/21 02/03/21 History pantoprazole 40 mg PO BID 02/03/21 02/03/21 History silver [Silver-Sept] 1 applic TOPICAL DAILY PRN 02/03/21 01/19/21 History Patient hx anesthesia problems: post op nausea/vomiting Family hx anesthesia problems: none PMFSH Past Medical History Medical History (Updated 01/05/21 @ 08:16 by Roxie Talley, LUGGAGE REPAIRER-C) Allergies Anemia Anxiety Back pain Bronchitis Chicken pox Cyclical vomiting Depression Diabetes type 1, controlled Endometriosis Fatty liver Fibromyalgia Foot fracture, left GERD (gastroesophageal reflux disease) Heart murmur Herpes HLD (hyperlipidemia) HTN (hypertension) Hypothyroidism IBS (irritable bowel syndrome) Leukocytosis Peptic ulcer Pneumonia Rheumatoid arthritis Sleep apnea Uterine fibroid UTI (urinary tract infection) Vaginal disorder Vitamin B 12 deficiency Surgical History Surgical History (Updated 12/08/20 @ 11:01 by Mile Blanchard) H/O detached retina repair (~10/2020) History of hysterectomy History of laparoscopy pelvic laparoscopy with removal of uterine fibroids Hx of cholecystectomy Family History Family History Mother Diabetes mellitus Hypertension Family history of elevated blood lipids Sibling Family history of obesity Patient's sister is in good health Father Hypertension Family history of cardiovascular disease Other Acute myocardial infarction Family history of arthritis Family history of heart disease in male family member before age 55 Family history of thyro
[2021-02-03 10:16] LABS: Glucose Point of Care 216 (65-105)
--- NOTE | 2021-02-03 10:20 | PM.HPGS ---
History of Present Illness History of Present Illness Consent: Risks, benefits, and alternatives have been discussed and questions answered. Patient agrees to proceed with procedure. Chief complaint: GERD Narrative: Jennifer Londono is a 45 year old female with frequent vomiting. A few years ago she was diagnosed with cyclic vomiting. She takes promethazine twice a day every day but despite this has had episodes of severe nausea lately. She also has almost continuous upper abdominal pain or discomfort. There has been no weight loss Review of Systems Review of Systems: All systems reviewed & are unremarkable except as noted in HPI and below PMFSH Past Medical History Medical History Allergies Anemia Anxiety Back pain Bronchitis Chicken pox Cyclical vomiting Depression Diabetes type 1, controlled Endometriosis Fatty liver Fibromyalgia Foot fracture, left GERD (gastroesophageal reflux disease) Heart murmur Herpes HLD (hyperlipidemia) HTN (hypertension) Hypothyroidism IBS (irritable bowel syndrome) Leukocytosis Peptic ulcer Pneumonia Rheumatoid arthritis Sleep apnea Uterine fibroid UTI (urinary tract infection) Vaginal disorder Vitamin B 12 deficiency Surgical History Surgical History H/O detached retina repair (~10/2020) History of hysterectomy History of laparoscopy pelvic laparoscopy with removal of uterine fibroids Hx of cholecystectomy Family History Family History Mother Diabetes mellitus Hypertension Family history of elevated blood lipids Sibling Family history of obesity Patient's sister is in good health Father Hypertension Family history of cardiovascular disease Other Acute myocardial infarction Family history of arthritis Family history of heart disease in male family member before age 55 Family history of thyroid disease Social History Social History Social History: states she lives alone, with no children and her at a young age,33 Smoking status: Never smoker Alcohol intake: current Drinks per week: 1 Substance use: never Living arrangements: with family Gender identity (if verbalized by the patient): Female Spiritual care concerns: No Meds Home Medications and Allergies Home Medications Medication Instructions Recorded Confirmed Type acyclovir 400 mg tablet 400 mg PO BID 11/02/19 02/03/21 History alprazolam 1 mg tablet 0.5 mg PO TID PRN 11/02/19 02/03/21 History docusate sodium 100 mg capsule 100 mg PO BID PRN 11/02/19 02/03/21 History insulin aspart U-100 100 unit/mL 1 sliding scale dose SUB-Q 11/02/19 02/03/21 History subcutaneous solution USEASDIRECTD sertraline 100 mg tablet 100 mg PO HS 11/02/19 02/03/21 History trazodone 100 mg tablet 50 mg PO DAILY tablet 11/02/19 02/03/21 History zolpidem 10 mg tablet 10 mg PO QPM PRN tablet 11/02/19 02/03/21 History fluticasone propionate 50 2 spray NASAL DAILY #18.2 ml 04/04/20 02/03/21 Rx mcg/actuation nasal spray,suspension gabapentin 300 mg capsule 300 mg PO .qhs #90 cap 06/06/20 02/03/21 Rx cetirizine 10 mg PO DAILY 07/03/20 02/03/21 History cyclobenzaprine 10 mg PO TID PRN 07/03/20 02/03/21 History prazosin [Minipress] 2 mg PO HS 07/03/20 02/03/21 History tramadol 50 mg PO Q6H PRN 07/03/20 02/03/21 History miconazole nitrate 1 appful VAGINAL HS 5 Days #45 gm 07/06/20 01/19/21 Rx ibuprofen 600 mg PO QID PRN #30 tablet 09/10/20 02/03/21 Rx insulin degludec 100 unit/mL 70 unit SUBCUT DAILY ml 09/14/20 02/03/21 History subcutaneous solution amlodipine 10 mg tablet 10 mg PO DAILY #90 tablet 10/04/20 02/03/21 Rx losartan 100 mg tablet 100 mg PO DAILY #90 tablet 10/04/20 02/03/21 Rx prochlorperazine maleate 10 mg 10 mg PO Q4-6H PRN #30 tablet 12/08/20 02/03/21 Rx table
[2021-02-03] MEDS: ONDANSETRON INJ 4 MG/2 ML VIAL IV PUSH (10:24)
[2021-02-03 10:51] VITALS: BP 113/63; PULSE 76; RESP 22; O2SAT 96
[2021-02-03 11:01] VITALS: BP 112/63; PULSE 78; RESP 20; O2SAT 95
[2021-02-03 11:11] VITALS: BP 146/82; PULSE 80; RESP 19; O2SAT 92
[2021-02-03 11:11] LABS: Glucose Point of Care 186 (65-105)
== END 2021-02-03 11:40 | disposition home or self-care (01) ==
PROVIDERS: PCP Internal Medicine; Visit Provider Internal Medicine Gastroenterology
PROC: 0DJ08ZZ Inspection of Upper Intestinal Tract, Via Natural or Artificial Opening Endoscopic (ICD-10-PCS; CPT 43235; principal; 2021-02-03 11:00)
DX: R11.2 Nausea with vomiting, unspecified (principal); K21.9 Gastro-esophageal reflux disease without esophagitis; K31.84 Gastroparesis; K29.40 Chronic atrophic gastritis without bleeding; K58.9 Irritable bowel syndrome, unspecified; D64.9 Anemia, unspecified; R11.15 Cyclical vomiting syndrome unrelated to migraine; F41.9 Anxiety disorder, unspecified; N80.9 Endometriosis, unspecified; E10.9 Type 1 diabetes mellitus without complications; K76.0 Fatty (change of) liver, not elsewhere classified; M79.7 Fibromyalgia; R01.1 Cardiac murmur, unspecified; E78.5 Hyperlipidemia, unspecified; I10 Essential (primary) hypertension; E03.9 Hypothyroidism, unspecified; D72.829 Elevated white blood cell count, unspecified; M06.9 Rheumatoid arthritis, unspecified; Z87.11 Personal history of peptic ulcer disease; Z87.898 Personal history of other specified conditions; D51.9 Vitamin B12 deficiency anemia, unspecified; Z79.4 Long term (current) use of insulin
CPT/HCPCS: 43239; 82948; 88305; J2405; J2704; J7120

== ENCOUNTER 2021-04-12 00:31 | Day surgery (SDC) | payer BC, SELFPAY ==
[2021-04-06 12:26] VITALS: BMI 36.8
[2021-04-12 06:53] VITALS: BP 150/86; PULSE 96; RESP 18; TEMP 36; O2SAT 99; BMI 37.2
[2021-04-12 07:13] LABS: Glucose Point of Care 100 mg/dl (65-105)
[2021-04-12] MEDS: LACTATED RINGERS 1,000 ML 150 ML IV CONT (07:36)
--- NOTE | 2021-04-12 07:44 | WPDANESEPPF ---
Anes - Initial Pre Proc Eval Procedure: Operation Date: 04/12/21 08:00 Proposed Procedures p Colonoscopy - Joce Stanford MD Date/Time: 04/12/21 07:44 Surgeon: Joce Stanford MD Pre Op Diagnosis: Change in bowel habits Patient Data Age: 45 Gender: F Height: 1.73 m Weight: 111 kg Last Vital Signs Temp 96.8 F L 04/12/21 06:53 Pulse 96 04/12/21 06:53 Resp 18 04/12/21 06:53 BP 150/86 H 04/12/21 06:53 Pulse Ox 99 04/12/21 06:53 Allergies Allergy/AdvReac Type Severity Reaction Status Date / Time latex Allergy Severe itching Verified 04/12/21 06:52 metoclopramide Allergy Severe Redness of Verified 04/12/21 06:52 Skin Home Medications Medication Instructions Recorded Confirmed Type acyclovir 400 mg tablet 400 mg PO BID 11/02/19 04/06/21 History alprazolam 1 mg tablet 0.5 mg PO TID PRN 11/02/19 04/06/21 History docusate sodium 100 mg capsule 100 mg PO BID PRN 11/02/19 04/06/21 History sertraline 100 mg tablet 100 mg PO HS 11/02/19 04/06/21 History trazodone 100 mg tablet 50 mg PO HS tablet 11/02/19 04/06/21 History zolpidem 10 mg tablet 10 mg PO QPM PRN tablet 11/02/19 04/06/21 History fluticasone propionate 50 2 spray NASAL DAILY #18.2 ml 04/04/20 04/06/21 Rx mcg/actuation nasal spray,suspension gabapentin 300 mg capsule 300 mg PO .qhs #90 cap 06/06/20 04/06/21 Rx cetirizine 10 mg PO DAILY 07/03/20 04/06/21 History cyclobenzaprine 10 mg PO TID PRN 07/03/20 04/06/21 History prazosin [Minipress] 2 mg PO HS 07/03/20 04/06/21 History tramadol 50 mg PO Q6H PRN 07/03/20 04/06/21 History ibuprofen 600 mg PO QID PRN #30 tablet 09/10/20 04/06/21 Rx insulin degludec 100 unit/mL 70 unit SUBCUT HS ml 09/14/20 04/06/21 History subcutaneous solution losartan 100 mg tablet 100 mg PO DAILY #90 tablet 10/04/20 04/06/21 Rx cholecalciferol (vitamin D3) 1,250 50,000 unit PO WEEKLY #8 cap 01/04/21 04/06/21 Rx mcg (50,000 unit) capsule Silver-Sept 1 applic TOPICAL DAILY PRN 02/03/21 04/06/21 History amitriptyline 25 mg PO DAILY 02/03/21 04/06/21 History pantoprazole 40 mg PO BID 02/03/21 04/06/21 History amlodipine 10 mg tablet 10 mg PO DAILY #90 tablet 02/22/21 04/06/21 Rx metoprolol succinate 50 mg 50 mg PO DAILY #90 tablet 02/22/21 04/06/21 Rx tablet,extended release 24 hr insulin aspart U-100 100 unit/mL 70 unit SUB-Q USEASDIRECTD ml 03/14/21 04/06/21 History subcutaneous solution prochlorperazine maleate 10 mg 10 mg PO Q4-6H PRN #30 tablet 04/06/21 Rx tablet Laboratory Tests 04/12/21 07:08 POC Capillary Glucose 100 mg/dl mg/dl (65-105) Patient hx anesthesia problems: post op nausea/vomiting Family hx anesthesia problems: none PMFSH Past Medical History Medical History Allergies Anemia Anxiety Back pain Bronchitis Chicken pox Cyclical vomiting Depression Diabetes type 1, controlled Endometriosis Fatty liver Fibromyalgia Foot fracture, left GERD (gastroesophageal reflux disease) Heart murmur Herpes HLD (hyperlipidemia) HTN (hypertension) Hypothyroidism IBS (irritable bowel syndrome) Leukocytosis Peptic ulcer Pneumonia Rheumatoid arthritis Sleep apnea Uterine fibroid UTI (urinary tract infection) Vaginal disorder Vitamin B 12 deficiency Surgical History Surgical History H/O detached retina repair (~10/2020) History of hysterectomy History of laparoscopy pelvic laparoscopy with removal of uterine fibroids Hx of cholecystectomy Family History Family History Mother Diabetes mellitus Hypertension Family history of elevated blood lipids Sibling Family history of obesity Patient's sister is in good health Father Hypertension Family history of cardiovascular disease Other Acute myocardial infarction Family history of arthritis Family history of heart disease in male
--- NOTE | 2021-04-12 07:45 | PM.HPGS ---
History of Present Illness History of Present Illness Consent: Risks, benefits, and alternatives have been discussed and questions answered. Patient agrees to proceed with procedure. Chief complaint: Change in bowel habits Narrative: Jennifer Londono is a 45 year old female who has had a D very difficult time with her bowel movements. She is having severe constipation now, going up to a week between bowel movements. She is also having abdominal pain with that Review of Systems Review of Systems: All systems reviewed & are unremarkable except as noted in HPI and below PMFSH Past Medical History Medical History Allergies Anemia Anxiety Back pain Bronchitis Chicken pox Cyclical vomiting Depression Diabetes type 1, controlled Endometriosis Fatty liver Fibromyalgia Foot fracture, left GERD (gastroesophageal reflux disease) Heart murmur Herpes HLD (hyperlipidemia) HTN (hypertension) Hypothyroidism IBS (irritable bowel syndrome) Leukocytosis Peptic ulcer Pneumonia Rheumatoid arthritis Sleep apnea Uterine fibroid UTI (urinary tract infection) Vaginal disorder Vitamin B 12 deficiency Surgical History Surgical History H/O detached retina repair (~10/2020) History of hysterectomy History of laparoscopy pelvic laparoscopy with removal of uterine fibroids Hx of cholecystectomy Family History Family History Mother Diabetes mellitus Hypertension Family history of elevated blood lipids Sibling Family history of obesity Patient's sister is in good health Father Hypertension Family history of cardiovascular disease Other Acute myocardial infarction Family history of arthritis Family history of heart disease in male family member before age 55 Family history of thyroid disease Social History Social History Social History: states she lives alone, with no children and her at a young age,33 Smoking status: Never smoker Alcohol intake: former Drinks per week: 1 Substance use: never Substance use type: does not use Living arrangements: with family Gender identity (if verbalized by the patient): Female Spiritual care concerns: No Meds Home Medications and Allergies Home Medications Medication Instructions Recorded Confirmed Type acyclovir 400 mg tablet 400 mg PO BID 11/02/19 04/06/21 History alprazolam 1 mg tablet 0.5 mg PO TID PRN 11/02/19 04/06/21 History docusate sodium 100 mg capsule 100 mg PO BID PRN 11/02/19 04/06/21 History sertraline 100 mg tablet 100 mg PO HS 11/02/19 04/06/21 History trazodone 100 mg tablet 50 mg PO HS tablet 11/02/19 04/06/21 History zolpidem 10 mg tablet 10 mg PO QPM PRN tablet 11/02/19 04/06/21 History fluticasone propionate 50 2 spray NASAL DAILY #18.2 ml 04/04/20 04/06/21 Rx mcg/actuation nasal spray,suspension gabapentin 300 mg capsule 300 mg PO .qhs #90 cap 06/06/20 04/06/21 Rx cetirizine 10 mg PO DAILY 07/03/20 04/06/21 History cyclobenzaprine 10 mg PO TID PRN 07/03/20 04/06/21 History prazosin [Minipress] 2 mg PO HS 07/03/20 04/06/21 History tramadol 50 mg PO Q6H PRN 07/03/20 04/06/21 History ibuprofen 600 mg PO QID PRN #30 tablet 09/10/20 04/06/21 Rx insulin degludec 100 unit/mL 70 unit SUBCUT HS ml 09/14/20 04/06/21 History subcutaneous solution losartan 100 mg tablet 100 mg PO DAILY #90 tablet 10/04/20 04/06/21 Rx cholecalciferol (vitamin D3) 1,250 50,000 unit PO WEEKLY #8 cap 01/04/21 04/06/21 Rx mcg (50,000 unit) capsule Silver-Sept 1 applic TOPICAL DAILY PRN 02/03/21 04/06/21 History amitriptyline 25 mg PO DAILY 02/03/21 04/06/21 History pantoprazole 40 mg PO BID 02/03/21 04/06/21 History amlodipine 10 mg tablet 10 mg PO DAILY #90 tablet 02/22/21 04/06/21 Rx metoprolol succinate 50 mg 50 mg PO DAILY #90
[2021-04-12 08:13] VITALS: BP 140/87; PULSE 87; RESP 19; O2SAT 91
[2021-04-12 08:23] VITALS: BP 128/84; PULSE 85; RESP 21; O2SAT 93
[2021-04-12] MEDS: ONDANSETRON INJ 4 MG/2 ML VIAL IV PUSH (08:30)
[2021-04-12 08:33] VITALS: BP 137/83; PULSE 85; RESP 33; O2SAT 95
[2021-04-12 08:39] LABS: Glucose Point of Care 103 mg/dl (65-105)
== END 2021-04-12 09:13 | disposition home or self-care (01) ==
PROVIDERS: PCP Internal Medicine; Visit Provider Internal Medicine Gastroenterology
PROC: 0DJD8ZZ Inspection of Lower Intestinal Tract, Via Natural or Artificial Opening Endoscopic (ICD-10-PCS; CPT 45378; principal; 2021-04-12 08:00)
DX: K59.00 Constipation, unspecified (principal); E10.9 Type 1 diabetes mellitus without complications; I10 Essential (primary) hypertension; E78.5 Hyperlipidemia, unspecified; M06.9 Rheumatoid arthritis, unspecified; F41.8 Other specified anxiety disorders; M79.7 Fibromyalgia; K76.0 Fatty (change of) liver, not elsewhere classified; K21.9 Gastro-esophageal reflux disease without esophagitis; E03.9 Hypothyroidism, unspecified; E66.9 Obesity, unspecified; Z68.37 Body mass index [BMI] 37.0-37.9, adult; Z79.4 Long term (current) use of insulin
CPT/HCPCS: 45378; 82948; J2250; J2405; J2704; J7120

== ENCOUNTER 2021-04-25 02:07 | Emergency (ER) | payer BC, SELFPAY ==
--- NOTE | ~2021-04-25 | XR_ITS ---
EXAMINATION: XR knee RT 3V DATE: 04/25/2021 03:22 INDICATION: Right knee pain TECHNIQUE: Three views of the right knee were obtained. COMPARISON: None. FINDINGS: Alignment is normal. No fracture or osteochondral lesion. There is moderate joint space geno rowing in the lateral compartment. No joint effusion/synovitis. There is significant prepatellar, in frapatellar, and medial soft tissue swelling. IMPRESSION: 1. Knee soft tissue swelling without evidence of acute osseous abnormality. Reviewed, dictated and finalized at location D.
[2021-04-25 02:39] VITALS: BP 127/74; PULSE 72; RESP 20; TEMP 36.9; O2SAT 99
--- NOTE | 2021-04-25 02:41 | ED.GENADULT ---
HPI - General Adult General Chief complaint: Extremity Injury, Lower Stated complaint: extremity injury right leg Time Seen by Provider: 04/25/21 02:34 History of Present Illness HPI narrative: Patient 45-year-old female presents the emergency department with chief complaint of right knee pain. 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 Patient reports she has swelling in her right knee reports it hurts whenever she attempts to move it the patient denies head injury denies loss of consciousness denies any other injury Related Data Home Medications Medication Instructions Recorded Confirmed acyclovir 400 mg tablet 400 mg PO BID 11/02/19 04/06/21 alprazolam 1 mg tablet 0.5 mg PO TID PRN 11/02/19 04/06/21 docusate sodium 100 mg capsule 100 mg PO BID PRN 11/02/19 04/06/21 sertraline 100 mg tablet 100 mg PO HS 11/02/19 04/06/21 trazodone 100 mg tablet 50 mg PO HS tablet 11/02/19 04/06/21 zolpidem 10 mg tablet 10 mg PO QPM PRN tablet 11/02/19 04/06/21 cetirizine 10 mg PO DAILY 07/03/20 04/06/21 cyclobenzaprine 10 mg PO TID PRN 07/03/20 04/06/21 prazosin [Minipress] 2 mg PO HS 07/03/20 04/06/21 tramadol 50 mg PO Q6H PRN 07/03/20 04/06/21 insulin degludec 100 unit/mL 70 unit SUBCUT HS ml 09/14/20 04/06/21 subcutaneous solution Silver-Sept 1 applic TOPICAL DAILY PRN 02/03/21 04/06/21 amitriptyline 25 mg PO DAILY 02/03/21 04/06/21 pantoprazole 40 mg PO BID 02/03/21 04/06/21 insulin aspart U-100 100 unit/mL 70 unit SUB-Q USEASDIRECTD ml 03/14/21 04/06/21 subcutaneous solution Allergies Allergy/AdvReac Type Severity Reaction Status Date / Time latex Allergy Severe itching Verified 04/12/21 06:52 metoclopramide Allergy Severe Redness of Verified 04/12/21 06:52 Skin Review of Systems Review of Systems: Narrative: A 10 system review of systems was completed on the patient and is negative except for what is stated in the HPI. Nursing and ancillary documentation was reviewed. [facility] Past Medical History Medical History Allergies Anemia Anxiety Back pain Bronchitis Chicken pox Cyclical vomiting Depression Diabetes type 1, controlled Endometriosis Fatty liver Fibromyalgia Foot fracture, left GERD (gastroesophageal reflux disease) Heart murmur Herpes HLD (hyperlipidemia) HTN (hypertension) Hypothyroidism IBS (irritable bowel syndrome) Leukocytosis Peptic ulcer Pneumonia Rheumatoid arthritis Sleep apnea Uterine fibroid UTI (urinary tract infection) Vaginal disorder Vitamin B 12 deficiency Surgical History Surgical History H/O detached retina repair (~10/2020) History of hysterectomy History of laparoscopy pelvic laparoscopy with removal of uterine fibroids Hx of cholecystectomy Family History Family History Mother Diabetes mellitus Hypertension Family history of elevated blood lipids Sibling Family history of obesity Patient's sister is in good health Father Hypertension Family history of cardiovascular disease Other Acute myocardial infarction Family history of arthritis Family history of heart disease in male family member before age 55 Family history of thyroid disease Social History Social History Social History: states she lives alone, with no children and her at a young age,33 Smoking status: Never smoker Alcohol intake: former Drinks per week: 1 Substance use: never Substance use type: does not use Gender identity (if verbalized by the patient): Female Spiritual care concerns: No Exam Narrative: Exam Narrative: GENERAL: Well-appearing, well-nourished, and in no a
[2021-04-25] MEDS: HYDROmorphone HCL INJ (*CRX) 1 MG/ML SYR IM (04:48)
[2021-04-25 05:17] VITALS: BP 124/70; PULSE 81; RESP 20; O2SAT 99
== END 2021-04-25 05:20 | disposition home or self-care (01) ==
PROVIDERS: Emergency Provider Emergency Medicine; PCP Internal Medicine
DX: S83.91XA Sprain of unspecified site of right knee, initial encounter (principal); M23.91 Unspecified internal derangement of right knee; E10.9 Type 1 diabetes mellitus without complications; E78.5 Hyperlipidemia, unspecified; I10 Essential (primary) hypertension; M06.9 Rheumatoid arthritis, unspecified; M79.7 Fibromyalgia; E03.9 Hypothyroidism, unspecified; K58.9 Irritable bowel syndrome, unspecified; K21.9 Gastro-esophageal reflux disease without esophagitis; N80.9 Endometriosis, unspecified; E55.9 Vitamin D deficiency, unspecified; Z87.01 Personal history of pneumonia (recurrent); Z87.440 Personal history of urinary (tract) infections; Z79.4 Long term (current) use of insulin; W18.09XA Striking against other object with subsequent fall, initial encounter
CPT/HCPCS: 73562; 96372; 99283; J1170

== ENCOUNTER 2021-06-09 07:39 | Outpatient (CLI) | payer BC, SELFPAY ==
--- NOTE | ~2021-06-09 | MR_ITS ---
EXAMINATION: MR knee RT wo con DATE: 06/09/2021 08:25 INDICATION: Right knee pain TECHNIQUE: Magnetic resonance imaging (MRI) of the right knee was performed without intravenous contr ast. Sequences included coronal PD-weighted FSE, coronal PD-weighted FS FSE, sagittal T2-weighted FS E, sagittal PD-weighted FS FSE and axial PD weighted fat saturated FSE. COMPARISON: Right knee radiographs dated 04/25/2021 FINDINGS: Medial compartment: Medial meniscus is normal. Articular cartilage is normal. Lateral compartment: Lateral meniscus is normal. Articular cartilage is normal. Patellofemoral compartment: Sense of deep chondral ulceration, emplaces full/near full-thickness with cortical irregularity and u nderlying subarticular edema at the cephalad two thirds of the patellar apical ridge and extending in feriorly across the medial and lateral patellar facets. Trochlear cartilage is relatively preserved w ith small focus of deep chondral fissuring with cortical irregularity and minimal subarticular edema at the inferior aspect of the medial trochlea. Ligaments and tendons: Anterior and posterior cruciate ligaments are normal. The medial collateral ligament and fibular dino ateral ligament complex are normal. The extensor mechanism is normal. The visualized medial and later al hamstring tendons as well as the iliotibial band are normal. Fluid: Physiologic amount of fluid in the joint space. No loose osteochondral bodies identified. Osseous/other: 8 mm mildly hyperintense lesion at the lateral metaphyseal region of the proximal tibia with subtle c orresponding sclerosis on the prior radiographs appearance consistent with and statistically most lik ayaka to represent an enchondroma. No fracture or other pathologic marrow replacing process. Prepatell ar soft tissue swelling and edema surrounding a loculated appearing region of heterogeneous increased fluid signal with thick surrounding low signal intensity rim extending for approximately 7 cm cranio caudally and 3.1 x 0.6 cm in maximal orthogonal dimensions. Along the anteromedial margin of the perez llar tendon consistent with prepatellar bursitis. IMPRESSION: 1. Prominent prepatellar soft tissue swelling surrounding a 7 x 3.1 x 0.6 complex loculated appearing lesion. This most likely represents prepatellar bursitis with synovitis within the bursa which could be either inflammatory or septic in the appropriate clinical setting. Differential would include hem atoma or internal degloving injury in the appropriate post traumatic clinical setting. 2. 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 3. 8 mm subtle sclerotic lesion at the proximal metaphysis of the right tibia with appearance consist ent with and statistically most likely to represent an enchondroma. If prior imaging is unavailable t o establish chronicity could consider CT to more definitively assess for chondroid matrix. Reviewed, dictated and finalized at location A. IMPRESSION: 1. Prominent prepatellar soft tissue swelling surrounding a 7 x 3.1 x 0.6 compl ex loculated appearing lesion. This most likely represents prepatellar bursitis with synovitis within the bursa which could be either inflammatory or septic i n the appropriate clinical setting. Differential would include hematoma or inte rnal degloving injury in the appropriate post traumatic clinical setting. 2. Mild patellofemoral osteoarthritis with extensive high-grade patellar chondr omalacia. 3. 8 mm subtle sclerotic lesion at the proximal metaphysis of the right tibia w ith appearance consistent with and statistically most likely to represent an en chondroma. If prior imaging is unavailable to establish chronicity could consid er CT to more definiti
== END 2021-06-09 07:40 | disposition home or self-care (01) ==
PROVIDERS: PCP Internal Medicine; Visit Provider Orthopaedic Surgery
DX: M17.11 Unilateral primary osteoarthritis, right knee (principal); M22.41 Chondromalacia patellae, right knee; M79.89 Other specified soft tissue disorders
CPT/HCPCS: 73721

== ENCOUNTER 2021-11-18 12:02 | Emergency (ER) | payer OTHER, BC, SELFPAY ==
--- NOTE | ~2021-11-18 | XR_ITS ---
EXAMINATION: [id number] INDICATION: Right chest pain after fall TECHNIQUE: A frontal view of the chest and 3 views of the right ribs were obtained. COMPARISON: None. FINDINGS: The lungs are free of acute opacities. There is no pleural effusion or pneumothorax. The ca rdiomediastinal silhouette is normal. No displaced rib fracture is identified. Surgical clips in the right upper quadrant are likely from prior cholecystectomy. IMPRESSION: 1. No acute cardiopulmonary abnormality or evidence of displaced rib fracture. Reviewed, dictated and finalized at location A. TY FIRE CHIEF
--- NOTE | ~2021-11-18 | XR_ITS ---
EXAMINATION: XR knee RT min 4V DATE: 11/18/2021 12:42 INDICATION: Right knee pain TECHNIQUE: Four views of the right knee were obtained. COMPARISON: 04/25/2021 FINDINGS: There is significant prepatellar and infrapatellar soft tissue swelling anteriorly. No frac ture is identified. Joint spaces are normal with no erosions. No joint effusion/synovitis. Soft tis sues are unremarkable. IMPRESSION: 1. Anterior soft tissue swelling of the knee without underlying acute osseous abnormality. Reviewed, dictated and finalized at location A. 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 Anterior soft tissue swelling of the knee without underlying acute osseous a bnormality.
[2021-11-18 12:05] VITALS: BP 173/83; PULSE 83; RESP 18; TEMP 36.9; O2SAT 98
[2021-11-18] MEDS: HYDROcodone/acetaminophen (*CRX) 5-325 MG TABLET 1 TAB PO (12:45)
--- NOTE | 2021-11-18 13:34 | ED.GENADULT ---
HPI - General Adult General Chief complaint: Extremity Injury, Lower Stated complaint: Right Knee - Fall Time Seen by Provider: 11/18/21 12:03 Source: RN notes reviewed History of Present Illness HPI narrative: Patient presents emergency department from work for a fall. Patient states just prior to arrival she fell in the parking lot at work she states that she landed on her right knee also twisted and struck her right ribs she has pain in her right anterior lateral ribs as well as in her right knee she denies striking her head or loss of consciousness she denies any shortness of breath abdominal pain nausea vomiting or any other symptoms denies any ankle pain states she is not take anything for the pain Related Data Home Medications Medication Instructions Recorded Confirmed acyclovir 400 mg tablet 400 mg PO BID 11/02/19 08/25/21 alprazolam 1 mg tablet 0.5 mg PO TID PRN 11/02/19 08/25/21 docusate sodium 100 mg capsule 100 mg PO BID PRN 11/02/19 08/25/21 sertraline 100 mg tablet 100 mg PO HS 11/02/19 08/25/21 trazodone 100 mg tablet 50 mg PO HS tablet 11/02/19 08/25/21 zolpidem 10 mg tablet 10 mg PO QPM PRN tablet 11/02/19 08/25/21 cetirizine 10 mg PO DAILY 07/03/20 08/25/21 cyclobenzaprine 10 mg PO TID PRN 07/03/20 08/25/21 prazosin [Minipress] 2 mg PO HS 07/03/20 08/25/21 tramadol 50 mg PO Q6H PRN 07/03/20 08/25/21 insulin degludec 100 unit/mL 70 unit SUBCUT HS ml 09/14/20 08/25/21 subcutaneous solution Silver-Sept 1 applic TOPICAL DAILY PRN 02/03/21 08/25/21 insulin aspart U-100 100 unit/mL 70 unit SUB-Q USEASDIRECTD ml 03/14/21 08/25/21 subcutaneous solution coenzyme Q10 100 mg capsule 100 mg PO BID cap 10/03/21 Allergies Allergy/AdvReac Type Severity Reaction Status Date / Time latex Allergy Severe itching Verified 08/25/21 09:25 metoclopramide Allergy Severe Redness of Verified 08/25/21 09:25 Skin Review of Systems Review of Systems: Gen.: Denies fevers or chills Eyes: 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 ENT: Denies congestion Respiratory: Denies shortness of breath or cough CV: Denies chest pain or palpitations GI: Denies abdominal pain nausea, emesis Musculoskeletal: See HPI Neuro: Denies numbness, tingling, weakness or focal weakness Skin: Denies rash Except as documented, all other systems reviewed and negative [facility] Past Medical History Medical History Allergies Anemia Anxiety Back pain Bronchitis Chicken pox Cyclical vomiting Depression Diabetes type 1, controlled Endometriosis Fatty liver Fibromyalgia Foot fracture, left GERD (gastroesophageal reflux disease) Heart murmur Herpes HLD (hyperlipidemia) HTN (hypertension) Hypothyroidism IBS (irritable bowel syndrome) Leukocytosis Peptic ulcer Pneumonia Rheumatoid arthritis Sleep apnea Uterine fibroid UTI (urinary tract infection) Vaginal disorder Vitamin B 12 deficiency Surgical History Surgical History H/O detached retina repair (~10/2020) History of hysterectomy History of laparoscopy pelvic laparoscopy with removal of uterine fibroids Hx of cholecystectomy Family History Family History Mother Diabetes mellitus Hypertension Family history of elevated blood lipids Sibling Family history of obesity Patient's sister is in good health Father Hypertension Family history of cardiovascular disease Other Acute myocardial infarction Family history of arthritis Family history of heart disease in male family member before age 55 Family history of thyroid disease Social History Social History Social History: states she lives alone, with no children and her at a young age,33 Smoking status: Never smoker Alcohol intake: former Drinks per week: 1 Substance use: never
--- NOTE | 2021-11-18 13:35 | PC.NURSE ---
Pt states she does not want the knee immobilizer , marina wrap applied.
[2021-11-18 14:40] VITALS: PULSE 78; RESP 18; O2SAT 99
== END 2021-11-18 14:41 | disposition home or self-care (01) ==
PROVIDERS: Emergency Provider Emergency Medicine; PCP Internal Medicine
DX: S80.01XA Contusion of right knee, initial encounter (principal); S20.211A Contusion of right front wall of thorax, initial encounter; E10.8 Type 1 diabetes mellitus with unspecified complications; E78.5 Hyperlipidemia, unspecified; I10 Essential (primary) hypertension; K58.9 Irritable bowel syndrome, unspecified; E03.9 Hypothyroidism, unspecified; M06.9 Rheumatoid arthritis, unspecified; Z87.01 Personal history of pneumonia (recurrent); M79.7 Fibromyalgia; E53.8 Deficiency of other specified B group vitamins; K21.9 Gastro-esophageal reflux disease without esophagitis; F41.9 Anxiety disorder, unspecified; F32.A Depression, unspecified; Z87.440 Personal history of urinary (tract) infections; Z87.11 Personal history of peptic ulcer disease; Z86.2 Personal history of diseases of the blood and blood-forming organs and certain disorders involving the immune mechanism; Z79.4 Long term (current) use of insulin; W18.30XA Fall on same level, unspecified, initial encounter
CPT/HCPCS: 71101; 73564; 99284; A9270

== ENCOUNTER 2021-11-18 18:01 | Observation (INO) | payer OTHER, BC, SELFPAY ==
--- NOTE | ~2021-11-18 | XR_ITS ---
EXAMINATION: XR ankle RT min 3V DATE: 11/18/2021 19:09 INDICATION: Right ankle pain and swelling. Injury. TECHNIQUE: 4 views of right ankle were obtained. COMPARISON: Right ankle radiographs 07/21/2014 FINDINGS: Bone alignment is normal. No fracture. There is moderate midfoot osteoarthritis. There is a n enthesophyte at plantar aspect of calcaneal tuberosity. Ankle soft tissue swelling is noted. IMPRESSION: 1. Moderate midfoot osteoarthritis. Reviewed, dictated and finalized at location E. P HERDER
--- NOTE | ~2021-11-18 | CT_ITS ---
EXAMINATION: CT knee RT wo con DATE: 11/18/2021 19:11 INDICATION: Right knee pain. TECHNIQUE: Computed tomography (CT) of the right knee was performed without intravenous contrast. Aut omated exposure control and iterative reconstruction technique were employed. The dose-length product was 553.05 mGy-cm. COMPARISON: Right knee radiographs 11/18/2021, right knee MRI 06/09/2021 FINDINGS: Bone alignment is normal. No fracture. There is mild osteoarthritis of medial and lateral c ompartments and moderate osteoarthritis of patellofemoral compartment. There is a chronic 10 mm nonag gressive lytic lesion in proximal tibial metaphysis, likely an enchondroma. No knee joint effusion. T here is a prepatellar and superficial infrapatellar hematoma. IMPRESSION: 1. Prepatellar and superficial infrapatellar hematoma. 2. Moderate right knee osteoarthritis. Reviewed, dictated and finalized at location E. CASER
[2021-11-18 18:04] VITALS: BP 172/85; PULSE 98; RESP 18; TEMP 36.9; O2SAT 98
--- NOTE | 2021-11-18 18:53 | ED.LOWEXIN ---
HPI - Extremity Injury (Lower) General Chief Complaint: Extremity Injury, Lower Stated Complaint: right knee pain Time Seen by Provider: 11/18/21 18:31 Source: patient Mode of arrival: wheelchair Limitations: no limitations History of Present Illness HPI Narrative: This is a 45 year old female that presents to the ER for right knee pain after an injury today. She was evaluated in the ED here and placed in an KELVIN wrap. Reports worsening pain and swelling which prompted her to be seen again. Reports decreased ROM due to pain. Also reports she is now having pain in her right ankle. Denies numbness. Related Data Home Medications Medication Instructions Recorded Confirmed acyclovir 400 mg tablet 400 mg PO BID 11/02/19 08/25/21 alprazolam 1 mg tablet 0.5 mg PO TID PRN 11/02/19 08/25/21 docusate sodium 100 mg capsule 100 mg PO BID PRN 11/02/19 08/25/21 sertraline 100 mg tablet 100 mg PO HS 11/02/19 08/25/21 trazodone 100 mg tablet 50 mg PO HS tablet 11/02/19 08/25/21 zolpidem 10 mg tablet 10 mg PO QPM PRN tablet 11/02/19 08/25/21 cetirizine 10 mg PO DAILY 07/03/20 08/25/21 cyclobenzaprine 10 mg PO TID PRN 07/03/20 08/25/21 prazosin [Minipress] 2 mg PO HS 07/03/20 08/25/21 tramadol 50 mg PO Q6H PRN 07/03/20 08/25/21 insulin degludec 100 unit/mL 70 unit SUBCUT HS ml 09/14/20 08/25/21 subcutaneous solution Silver-Sept 1 applic TOPICAL DAILY PRN 02/03/21 08/25/21 insulin aspart U-100 100 unit/mL 70 unit SUB-Q USEASDIRECTD ml 03/14/21 08/25/21 subcutaneous solution coenzyme Q10 100 mg capsule 100 mg PO BID cap 10/03/21 Allergies Allergy/AdvReac Type Severity Reaction Status Date / Time latex Allergy Severe itching Verified 11/18/21 18:19 metoclopramide Allergy Severe Redness of Verified 11/18/21 18:19 Skin Review of Systems Review of Systems: CONSTITUTIONAL: Denies fever MUSCULOSKELETAL: Reports joint pain, and myalgia. NEUROLOGIC: Denies numbness, or weakness. All systems reviewed & are unremarkable except as noted in HPI and below PMFSH Past Medical History Medical History Allergies Anemia Anxiety Back pain Bronchitis Chicken pox Cyclical vomiting Depression Diabetes type 1, controlled Endometriosis Fatty liver Fibromyalgia Foot fracture, left GERD (gastroesophageal reflux disease) Heart murmur Herpes HLD (hyperlipidemia) HTN (hypertension) Hypothyroidism IBS (irritable bowel syndrome) Leukocytosis Peptic ulcer Pneumonia Rheumatoid arthritis Sleep apnea Uterine fibroid UTI (urinary tract infection) Vaginal disorder Vitamin B 12 deficiency Surgical History Surgical History H/O detached retina repair (~10/2020) History of hysterectomy History of laparoscopy pelvic laparoscopy with removal of uterine fibroids Hx of cholecystectomy Family History Family History Mother Diabetes mellitus Hypertension Family history of elevated blood lipids Sibling Family history of obesity Patient's sister is in good health Father Hypertension Family history of cardiovascular disease Other Acute myocardial infarction Family history of arthritis Family history of heart disease in male family member before age 55 Family history of thyroid disease Social History Social History Social History: states she lives alone, with no children and her at a young age,33 Smoking status: Never smoker Alcohol intake: former Drinks per week: 1 Substance use: never Substance use type: does not use Gender identity (if verbalized by the patient): Female Sexual Orientation (if Verbalized by the Patient): Straight or Heterosexual Spiritual care concerns: No Exam Narrative: GENERAL: Well-appearing, well-nourished, and in no acute distress. HEAD: Normoc
[2021-11-18] MEDS: HYDROcodone/acetaminophen (*CRX) 5-325 MG TABLET 1 TAB PO (19:16)
[2021-11-18 20:08] LABS: Basophils Absolute Auto 0.1 K/mm3 (0.0-0.1); Basophils Percent Auto 0.4 % (0.2-1.2); Eosinophils Absolute Auto 0.2 K/mm3 (0-0.3); Eosinophils Percent Auto 1.5 % (0-4.4); Hematocrit 37.7 % (37.0-47.0); Hemoglobin 12.5 g/dL (12.0-15.0); Immature Granulocyte Absolute 0.05 K/mm3 (0.00-0.031); Immature Granulocyte Percent A 0.4 % (0-0.5); Lymphocytes Absolute Auto 2.23 K/mm3 (0.9-3.2); Lymphocytes Percent Auto 19.5 % (18.3-44.2); Mean Corpuscular HGB Conc 33.2 g/dl (32-36); Mean Corpuscular Hemoglobin 27.5 pg (26-34); Mean Platelet Volume 9.8 fl (7.4-10.4); Monocytes Absolute Auto 0.7 K/mm3 (0.1-0.6); Monocytes Percent Auto 5.8 % (2.6-8.5); Neutrophils Absolute Auto 8.3 K/mm3 (1.3-6.7); Neutrophils Percent Auto 72.4 % (45.5-73.1); Platelet Count Result 255 k/mm3 (150-375); Red Blood Count 4.54 M/mm3 (4.2-5.4); Red Cell Distribution Width 13.3 % (11.5-14.5); White Blood Count 11.5 K/mm3 (4.5-10.0)
[2021-11-18 20:20] LABS: Prothrombin Time 12.3 Seconds (11.1-14.7)
[2021-11-18 20:21] LABS: Partial Thromboplastin Time 26.7 SECONDS (22.3-36.8)
[2021-11-18 20:25] LABS: Anion Gap 7 mmol/L (8-16); Blood Urea Nitrogen 20 mg/dL (7-17); Calcium 9.9 mg/dL (8.4-10.2); Carbon Dioxide 23 mmol/L (22-30); Chloride 106 mmol/L (98-107); Estimated CRCL calculation 79 ml/min; Estimated Glomerular Filt Rate 53; Glucose 224 mg/dL (65-110); Potassium 3.8 mmol/L (3.4-5.0); Sodium 136 mmol/L (137-145)
[2021-11-18 22:07] VITALS: BP 146/74; PULSE 85; RESP 16; TEMP 36.8; O2SAT 98
[2021-11-18 22:23] LABS: SARS-CoV-2 RNA PCR Negative
[2021-11-18 23:02] VITALS: BMI 40.9
--- NOTE | 2021-11-18 23:02 | ADMGEN ---
This patient, Jennifer Londono, was admitted to Medical Room 340-01. Patient/family oriented to hospital policies and general routines including ID bracelet, bed and alarms, visiting hours, pain management, procedures, bathroom and other care routines, personal items, smoking policy, room service/diet, and visiting hours. Information on how to activate the Rapid Response Team has been discussed. Patient/Family are encouraged to report perceived risks to care and to ask questions if they do not understand what they are told or what they should do.
[2021-11-18 23:18] VITALS: BP 146/73; PULSE 74; RESP 18; TEMP 36.4; O2SAT 98; BMI 40.9
--- NOTE | 2021-11-19 00:10 | PM.IMHP ---
H&P: HPI History of Present Illness Date/Time: 11/19/21 00:10 Chief Complaint: Right knee pain Narrative: This is a 45 year old female who presents to the ER with right knee pain after a fall earlier today. 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 She came earlier today for evaluation and was evaluated with x-ray which did not show any bony injury. She had her right knee wrapped with Tim wrap and was sent home. She comes back with worsening pain and swelling in the ER and decreased range of motion due to pain. She had risks knee CT done which revealed knee contusions and Orthopedics were consulted from the ER was suggested aspiration which was attempted by the ED provider. He has of intractable pain she was in able to go back home and hence admission was requested. She denies any other complaints with nose chest pain shortness of breath fever chills. She denies any tingling and numbness in the lower extremity. Review of Systems Review of Systems: - CONSTITUTIONAL: Denies weight loss, fever and chills. - HEENT: Denies changes in vision and hearing - RESPIRATORY: Denies SOB and cough. - CV: Denies palpitations and CP. - GI: Denies abdominal pain, nausea, vomiting and diarrhea. - : Denies dysuria and urinary frequency. - MSK: Reports right knee pain - SKIN: Denies rash and pruritus. - NEUROLOGICAL: Denies headache and syncope. - PSYCHIATRIC: Denies recent changes in mood. Denies anxiety and depression. All systems reviewed & are unremarkable except as noted in HPI and below Constitutional: Constitutional: Reports fatigue and Reports weakness Neurologic: Reports weakness Endocrine: Endocrine: Reports fatigue [facility] Past Medical History Medical History Allergies Anemia Anxiety Back pain Bronchitis Chicken pox Cyclical vomiting Depression Diabetes type 1, controlled Endometriosis Fatty liver Fibromyalgia Foot fracture, left GERD (gastroesophageal reflux disease) Heart murmur Herpes HLD (hyperlipidemia) HTN (hypertension) Hypothyroidism IBS (irritable bowel syndrome) Leukocytosis Peptic ulcer Pneumonia Rheumatoid arthritis Sleep apnea Uterine fibroid UTI (urinary tract infection) Vaginal disorder Vitamin B 12 deficiency Surgical History Surgical History H/O detached retina repair (~10/2020) History of hysterectomy History of laparoscopy pelvic laparoscopy with removal of uterine fibroids Hx of cholecystectomy Family History Family History Mother Diabetes mellitus Hypertension Family history of elevated blood lipids Sibling Family history of obesity Patient's sister is in good health Father Hypertension Family history of cardiovascular disease Other Acute myocardial infarction Family history of arthritis Family history of heart disease in male family member before age 55 Family history of thyroid disease Social History Social History Social History: states she lives alone, with no children and her at a young age,33 Smoking status: Never smoker Alcohol intake: never Drinks per week: 1 Substance use: never Substance use type: does not use Gender identity (if verbalized by the patient): Female Sexual Orientation (if Verbalized by the Patient): Straight or Heterosexual Spiritual care concerns: No Meds Home Medications and Allergies Home Medications Medication Instructions Recorded Confirmed Type acyclovir 400 mg tablet 400 mg PO BID 11/02/19 11/18/21 History alprazolam 1 mg tablet 0.5 mg PO TID PRN 11/02/19 11/18/21 History docusate sodium 100 mg capsule 100 mg PO BID PRN 11/02/19 11/18/21 History sertraline 100
[2021-11-19] MEDS: GABAPENTIN 300 MG CAPSULE PO (01:03)
[2021-11-19] MEDS: ALPRAZolam (*CRX) 0.5 MG TABLET PO ×2 (01:03→12:20)
[2021-11-19] MEDS: AMITRIPTYLINE HCL 25 MG TABLET PO (01:04)
[2021-11-19] MEDS: PANTOPRAZOLE 40 MG TABLET PO ×2 (01:04→07:59)
[2021-11-19] MEDS: PRAZOSIN HCL 1 MG CAPSULE 2 MG PO (01:04)
[2021-11-19] MEDS: HYDROcodone/acetaminophen (*CRX) 5-325 MG TABLET 1 TAB PO ×3 (01:04→12:20)
[2021-11-19 01:53] LABS: Glucose Point of Care 191 mg/dl (65-105)
[2021-11-19 05:15] VITALS: BP 143/73; PULSE 92; RESP 18; TEMP 36.2; O2SAT 95
[2021-11-19 08:02] LABS: Glucose Point of Care 225 mg/dl (65-105)
[2021-11-19] MEDS: MELOXICAM 7.5 MG TABLET 15 MG PO (08:48)
[2021-11-19 08:49] LABS: Amphetamine Screen Urine Negative (Negative); Barbiturate Screen Urine Negative (Negative); Benzodiazepines Screen Urine Positive (Negative); Cannabinoid Screen Urine Negative (Negative); Cocaine Screen Urine Negative (Negative); Methadone Screen Urine Negative (Negative); Opiate Screen Urine Positive (Negative); Phencyclidine Screen Urine Negative (Negative)
[2021-11-19] MEDS: ACYCLOVIR 400 MG TABLET PO (08:58)
[2021-11-19] MEDS: METOPROLOL SUCCINATE EXT REL 50 MG TABCR PO (08:58)
[2021-11-19] MEDS: amLODIPine BESYLATE 5 MG TABLET PO (08:58)
[2021-11-19] MEDS: LOSARTAN POTASSIUM 100 MG TABLET PO (08:58)
[2021-11-19] MEDS: SERTRALINE HCL 50 MG TABLET 150 MG PO (08:58)
[2021-11-19] MEDS: INSULIN ASPART (*BKC) 100 UNITS/ML 10 UNITS SUB-Q (08:59)
--- NOTE | 2021-11-19 09:25 | PM.DS ---
DS: Admitting Diagnosis Discharge Date 11/19/2021 Admitting Diagnosis Right knee swelling DS: Discharge Diagnosis Discharge Diagnosis (1) Traumatic hematoma of right knee: Qualifiers: Encounter type: initial encounter Qualified Code(s): S80.01XA - Contusion of right knee, initial encounter Code(s): S80.01XA - Contusion of right knee, initial encounter Status: Acute Assessment and Plan: Associated with hematoma status post aspiration Follow-up with orthopedic (2) Chondromalacia patellae of right knee: Code(s): M22.41 - Chondromalacia patellae, right knee Status: Acute Assessment and Plan: Complicated management for pain control counseling was given naloxone was given (3) Contusion of right patella: Code(s): S80.01XA - Contusion of right knee, initial encounter Status: Acute Assessment and Plan: Pain control (4) Right knee pain: Qualifiers: Chronicity: acute Qualified Code(s): M25.561 - Pain in right knee Code(s): M25.561 - Pain in right knee Status: Acute Assessment and Plan: As above (5) Rheumatoid arthritis: Code(s): M06.9 - Rheumatoid arthritis, unspecified Status: Acute Assessment and Plan: Hold NSAID for 2 days (6) GERD without esophagitis: Code(s): K21.9 - Gastro-esophageal reflux disease without esophagitis Status: Acute Assessment and Plan: Continue medication (7) Obesity (BMI 30-39.9): Code(s): E66.9 - Obesity, unspecified Status: Acute Assessment and Plan: Diet and exercise (8) Anxiety and depression: Code(s): F41.9 - Anxiety disorder, unspecified; F32.9 - Major depressive disorder, single episode, unspecified Status: Acute Assessment and Plan: Resume home med (9) Diabetes type 1, controlled: Qualifiers: Diabetes mellitus complication detail: with other skin ulcer Diabetes mellitus complication status: with skin complications Qualified Code(s): E10.622 - Type 1 diabetes mellitus with other skin ulcer Code(s): E10.9 - Type 1 diabetes mellitus without complications Status: Acute Assessment and Plan: Resume home med (10) HTN (hypertension): Qualifiers: Hypertension type: unspecified Qualified Code(s): I10 - Essential (primary) hypertension Code(s): I10 - Essential (primary) hypertension Status: Acute Assessment and Plan: Resume home medication DS: Summary Hospital Course Hospital Course: Patient presented to the hospital status post fall complaining of right knee swelling imaging was reviewed no evidence of fracture patient has right knee hematomas status post aspiration pain control follow-up with orthopedic as outpatient Complicated management for pain control counseling was given urine drug screen was positive for opiate I discussed with the patient in details Time Spent with Patient Time attestation: Total time spent providing and/or coordinating discharge services: DS: Data Data Completed and Pending Labs on day of discharge: Labs from last 24 hours 11/19/21 11/19/21 11/19/21 08:14 07:52 01:51 WBC RBC Hgb Hct MCV MCH MCHC RDW Plt Count MPV Immature Gran % (Auto) Neut % (Auto) Lymph % (Auto) Chambers % (Auto) Eos % (Auto) Baso % (Auto) Lymph # (Auto) Chambers # (Auto) Eos # (Auto) Baso # (Auto) Abs Immat Gran (auto) Absolute Neuts (auto) Absolute Nucleated RBC Nucleated RBC % PT INR APTT Sodium Potassium Chloride Carbon Dioxide Anion Gap BUN Creatinine Estim Creat Clear Calc Estimated GFR Glucose POC Capillary Glucose 225 H 191 H Calcium Urine Opiates Screen Positive A Urine Methadone Screen Negative Ur Barbiturates Screen Negative Ur Phencyclidine Scrn Negative Ur Amphetamine Screen Negative
--- NOTE | 2021-11-19 11:02 | PC.NURSE ---
Hospitalist stated we don't need the orthopedic consult and patient can be discharged.
[2021-11-19 11:47] LABS: Glucose Point of Care 221 mg/dl (65-105)
[2021-11-19] MEDS: INSULIN ASPART (*BKC) 100 UNITS/ML 15 UNITS SUB-Q (12:20)
== END 2021-11-19 14:12 | disposition home or self-care (01) ==
LOC: ANHED 21:48 → ANH3MED 22:47
PROVIDERS: Physician Assistant; Admitting Provider Internal Medicine; Emergency Provider Emergency Medicine; PCP Internal Medicine; Visit Provider Internal Medicine
DX: S80.01XA Contusion of right knee, initial encounter (principal); M22.41 Chondromalacia patellae, right knee; M25.571 Pain in right ankle and joints of right foot; E83.39 Other disorders of phosphorus metabolism; W19.XXXA Unspecified fall, initial encounter; E10.9 Type 1 diabetes mellitus without complications; I10 Essential (primary) hypertension; E78.5 Hyperlipidemia, unspecified; G47.30 Sleep apnea, unspecified; E03.9 Hypothyroidism, unspecified; K58.9 Irritable bowel syndrome, unspecified; E53.8 Deficiency of other specified B group vitamins; K76.0 Fatty (change of) liver, not elsewhere classified; M79.7 Fibromyalgia; M06.9 Rheumatoid arthritis, unspecified; F41.8 Other specified anxiety disorders; Z79.4 Long term (current) use of insulin; E66.01 Morbid (severe) obesity due to excess calories; Z68.41 Body mass index [BMI] 40.0-44.9, adult; Z20.822 Contact with and (suspected) exposure to COVID-19
CPT/HCPCS: 36415; 73610; 73700; 80048; 80307; 82948; 85025; 85610; 85730; 97161; 97165; 99285; A9270; C9803; G0378; J1815; U0003; U0005

== ENCOUNTER 2022-05-01 08:18 | Outpatient (CLI) | payer BC, SELFPAY ==
[2022-05-01 18:41] LABS: Basophils Absolute Auto 0.1 K/mm3 (0.0-0.1); Basophils Percent Auto 0.8 % (0.2-1.2); Eosinophils Absolute Auto 0.2 K/mm3 (0-0.3); Eosinophils Percent Auto 1.8 % (0-4.4); Hematocrit 41.4 % (37.0-47.0); Hemoglobin 13.1 g/dL (12.0-15.0); Immature Granulocyte Absolute 0.04 K/mm3 (0.00-0.031); Immature Granulocyte Percent A 0.4 % (0-0.5); Immature Platelet Fraction Pct 3.5 % (0.9-11.2); Lymphocytes Absolute Auto 1.79 K/mm3 (0.9-3.2); Lymphocytes Percent Auto 19.4 % (18.3-44.2); Mean Corpuscular HGB Conc 31.6 g/dl (32-36); Mean Corpuscular Volume 88.5 fl (80-100); Mean Platelet Volume 10.8 fl (7.4-10.4); Monocytes Absolute Auto 0.4 K/mm3 (0.1-0.6); Monocytes Percent Auto 4.6 % (2.6-8.5); Neutrophils Absolute Auto 6.7 K/mm3 (1.3-6.7); Platelet Count Result 228 k/mm3 (150-375); Red Blood Count 4.68 M/mm3 (4.2-5.4); Red Cell Distribution Width 13.2 % (11.5-14.5); White Blood Count 9.2 K/mm3 (4.5-10.0)
[2022-05-01 18:57] LABS: Alanine Aminotransferase 25 U/L (6-35); Albumin Level 3.8 g/dL (3.5-5.1); Alkaline Phosphatase 123 U/L (38-126); Anion Gap 10 mmol/L (8-16); Aspartate Amino Transferase 34 U/L (14-36); Bilirubin,Total 0.5 mg/dL (0.2-1.3); Blood Urea Nitrogen 20 mg/dL (7-17); Calcium 9.3 mg/dL (8.4-10.2); Carbon Dioxide 29 mmol/L (22-30); Chloride 99 mmol/L (98-107); Estimated Glomerular Filt Rate 48; Glucose 293 mg/dL (65-110); Potassium 3.1 mmol/L (3.4-5.0); Sodium 138 mmol/L (137-145)
[2022-05-01 19:37] LABS: Vitamin D 25 Hydroxy 14.5 ng/mL
[2022-05-01 20:07] LABS: Hepatitis C Virus Antibody Negative (Negative)
[2022-05-04 10:50] LABS: Albumin 3.6 g/dL (3.8-4.8); Alpha 1 Globulin 0.3 g/dL (0.2-0.3); Alpha 2 Globulin 0.9 g/dL (0.5-0.9); Beta 1 Globulin 0.5 g/dL (0.4-0.6); Gamma Globulin 0.8 g/dL (0.8-1.7); Protein, Total 6.5 g/dL (6.1-8.1)
== END 2022-05-01 08:19 | disposition home or self-care (01) ==
LOC: ANHGOSHLAB 08:19
PROVIDERS: PCP Internal Medicine; Visit Provider Clinical Nurse Specialist
DX: D64.9 Anemia, unspecified (principal); R94.4 Abnormal results of kidney function studies; E55.9 Vitamin D deficiency, unspecified
CPT/HCPCS: 36415; 80053; 82306; 84155; 84165; 85025; 85055; 86803

== ENCOUNTER 2022-05-10 14:41 | Outpatient (CLI) | payer BC, SELFPAY ==
--- NOTE | 2022-05-10 14:55 | ECHO_ITS ---
Patient Info Name: Jennifer Londono Age: 46 years : 1975 Gender: Female Ht: 68 in Wt: 272 lbs BSA: 2.49 m2 HR: 78 bpm BP: 164 / 84 mmHg Technical Quality: Fair Exam Date: 05/10/2022 3:34 PM Exam Location: [facility] Patient Status: Outpatient Admit Date: 05/10/2022 Staff Ordering Physician: Roxie Talley Quarry Extraction Worker: Christine Garces RDCS Attending Provider: Roxie Talley Referring Physician: Gerri WHITMORE; Exam Type: CA echo doppler color flow Study Info Indications - short of breath Complete two-dimensional, color flow and Doppler transthoracic echocardiogram is performed. Summary 1. Complete two-dimensional, color flow and Doppler transthoracic echocardiogram is performed. 2. Left ventricular chamber dimension is normal. 3. Left ventricular systolic function is normal, estimated at 65-70%. 4. There is mildly increased left ventricular wall thickness. 5. The left ventricular diastolic function is grade I diastolic dysfunction. 6. E/e' 11 is mildly elevated. 7. The mitral valve has mildly calcified annulus. 8. No pulmonary hypertension, estimated pulmonary arterial systolic pressure is 37 mmHg. Left Ventricle E/e' 11 is mildly elevated. Left ventricular chamber dimension is normal. Left ventricular systolic function is normal, estimated at 65-70%. There is mildly increased left ventricular wall thickness. The left ventricular diastolic function is grade I diastolic dysfunction. Right Ventricle Right ventricular chamber dimension is normal. Right ventricular systolic function is normal. Left Atria Left atrial chamber dimension is normal. Right Atria Right atrial chamber dimension is normal. Aortic Valve The aortic valve is trileaflet. There is no aortic valve stenosis. There is no aortic valve regurgitation. Pulmonic Valve There is no pulmonic regurgitation. Mitral Valve The mitral valve has mildly calcified annulus. There is no mitral valve stenosis. There is no mitral valve regurgitation. Tricuspid Valve There is no tricuspid valve regurgitation. No pulmonary hypertension, estimated pulmonary arterial systolic pressure is 37 mmHg. Pericardium/Pleural There is no pericardial effusion. Inferior Vena Cava Normal inferior vena cava with >50% collapse upon inspiration consistent with normal right atrial pressure, 5 mmHg. Aorta The aortic root size at the sinus of Valsalva is normal. Left Ventricular Outflow Tract Name Value Normal LVOT 2D LVOT Diameter 2.1 cm LVOT Doppler LVOT Peak Gradient 5 mmHg LVOT Mean Gradient 4 mmHg LVOT VTI 24 cm LVOT VTI/AV VTI Ratio 0.9 LVOT Stroke Volume 86 ml LVOT CO 20.3 l/min LVOT CI 8.1 l/min/m2 Pulmonic Valve Name Value Normal
[2022-05-10 17:03] LABS: Anion Gap 10 mmol/L (8-16); Blood Urea Nitrogen 21 mg/dL (7-17); Calcium 9.3 mg/dL (8.4-10.2); Carbon Dioxide 28 mmol/L (22-30); Chloride 99 mmol/L (98-107); Estimated Glomerular Filt Rate 53; Glucose 333 mg/dL (65-110); Potassium 3.5 mmol/L (3.4-5.0); Sodium 137 mmol/L (137-145)
== END 2022-05-10 14:42 | disposition home or self-care (01) ==
PROVIDERS: PCP Internal Medicine; Visit Provider Clinical Nurse Specialist
DX: R06.02 Shortness of breath (principal); M79.89 Other specified soft tissue disorders; R01.1 Cardiac murmur, unspecified; R94.31 Abnormal electrocardiogram [ECG] [EKG]
CPT/HCPCS: 36415; 80048; 93306

== ENCOUNTER 2022-05-17 07:19 | Outpatient (CLI) | payer BC, SELFPAY ==
--- NOTE | ~2022-05-17 | US_ITS ---
US renal BI, US retroperitoneal duplex [facility] 05/17/2022 08:53 Procedure: Realtime transabdominal ultrasound of the kidneys and bladder.Sonographic imaging of the k idneys was performed with a 3.5 MHz transducer. Retroperitoneal duplex sonogram of the renal arterie s also obtained. Indication: Abnormal renal function tests. Comparison: CT dated 07/03/2020 Findings: Renal echotexture is normal bilaterally without hydronephrosis, contour deforming mass or r enal calculus. There is a small hyperechoic 7 mm mass of the left kidney, likely a small renal angiom yolipoma. The right kidney measures 13.1 cm and left kidney measures 13.2 cm. Bladder within normal limits. No focal flow abnormalities are seen in the renal arteries on color Doppler. The peak systolic veloc ity ranges of the right and left renal arteries and aorta are 88 cm per second, 57 cm per second, and 117 cm per second, respectively. The velocities and renal to aortic ratios are within normal limits. 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 2: No evidence for renal artery stenosis. Reviewed, dictated and finalized at location A. 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 2: No evidence for renal artery stenosis. 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 2: No evidence for renal artery stenosis.
--- NOTE | ~2022-05-17 | US_ITS ---
US right upper quadrant DATE: 05/17/2022 08:53 INDICATION: Right upper quadrant abdominal pain. Abnormal renal function tests. TECHNIQUE: Real-time imaging of liver, pancreas, gallbladder fossa COMPARISON: 07/03/2020 CT abdomen pelvis FINDINGS: No hepatic or pancreatic space-occupying mass lesion is detected. Normal hepatopedal portal venous flow direction. Status post cholecystectomy. The common bile duct measures 3.3 mm, within normal limits. IMPRESSION: Status post cholecystectomy; no bile duct dilatation Reviewed, dictated and finalized at Location A. Reviewed, dictated and finalized at location B.
== END 2022-05-17 07:20 | disposition home or self-care (01) ==
PROVIDERS: PCP Internal Medicine; Visit Provider Clinical Nurse Specialist
DX: R94.4 Abnormal results of kidney function studies (principal); R10.11 Right upper quadrant pain; Z90.49 Acquired absence of other specified parts of digestive tract
CPT/HCPCS: 76705; 76775; 93976

== ENCOUNTER 2022-05-20 15:49 | Observation (INO) | payer BC, SELFPAY ==
[2022-05-20] VITALS (11 sets, daily range): BP systolic 166–234; BP diastolic 106–125; PULSE 83–103; RESP 15–24; TEMP 36.3–36.6; O2SAT 90–97
--- NOTE | ~2022-05-20 | CT_ITS ---
EXAMINATION: CT abdomen pelvis w con DATE: 05/20/2022 21:36 INDICATION: Vomiting and hypertension. Diarrhea. TECHNIQUE: Computed tomography (CT) of the abdomen and pelvis was performed with 100 cc Omnipaque 350 intravenous contrast. The dose-length product was 1616.33 mGy-cm. Automated exposure control and ite rative reconstruction technique were employed. COMPARISON: CT dated 07/03/2022. FINDINGS: There is dependent atelectasis in the lung bases. Cardiomegaly. No significant pleural or p ericardial effusion. Status post cholecystectomy. No significant vascular abnormality. Mildly promine nt right external iliac lymph nodes, likely reactive. Normal appendix. Nonobstructive bowel pattern. The liver, spleen, pancreas, adrenal glands and kidneys are unremarkable. Moderate colonic fecal load ing. No free air or free fluid. Small fat-containing umbilical hernia. No acute osseous abnormality. IMPRESSION: 1. No acute abdominal abnormality. Reviewed, dictated and finalized at location A.
--- NOTE | 2022-05-20 15:59 | ECG_ITS ---
Measurements Intervals Vincent Rate: 102 P: 58 MO: 188 QRS: -80 QRSD: 110 T: 92 QT: 392 QTc: 511 Interpretive Statements SINUS TACHYCARDIA LEFT ATRIAL ENLARGEMENT [-0.15mV P WAVE IN V1/V2] LEFT ANTERIOR FASCICULAR BLOCK [QRS AXIS <= -45, QR IN I, RS IN II] LEFT VENTRICULAR HYPERTROPHY AND ST-T CHANGE [VOLTAGE CRITERIA PLUS ST/T ABNORMALITY] * COMPARED TO ECG 12/24/2020 13:05:31 NO SIGNIFICANT DIFFERENCE Electronically Signed On 05-21-2022 13:52:07 CDT by Andrade Escobar M.D.
--- NOTE | 2022-05-20 16:19 | ED.NAVMDI ---
HPI - Nausea/Vomiting/Diarrhea General Chief complaint: Chest Pain Stated complaint: vomiting/diarrhea Time Seen by Provider: 05/20/22 15:58 History of Present Illness HPI Narrative: This is a 46-year-old female past medical history of diabetes, cyclic vomiting syndrome, hypertension, presents emergency department with 2 days worth of vomiting nausea and chest pain. She states she has had multiple episodes of nausea and vomiting without blood, diarrhea, associated with diaphoresis and development of bandlike chest pain, 5 out of 10. States pain began after multiple episodes of vomiting. She experienced the symptoms before, requiring antiemetics fluids and pain management. She complains of generalized weakness without focal weakness or numbness. Related Data Home Medications Medication Instructions Recorded Confirmed acyclovir 400 mg tablet 400 mg PO BID 11/02/19 05/01/22 alprazolam 1 mg tablet 0.5 mg PO TID PRN Anxiety 11/02/19 05/01/22 docusate sodium 100 mg capsule 100 mg PO BID PRN Constipation 11/02/19 05/01/22 (Colace) sertraline 100 mg tablet (Zoloft) 150 mg PO DAILY 11/02/19 05/01/22 zolpidem 10 mg tablet 10 mg PO QPM PRN Insomnia 11/02/19 05/01/22 prazosin 2 mg capsule (Minipress) 2 mg PO HS 07/03/20 05/01/22 insulin degludec 100 unit/mL 70 unit subcut HS 09/14/20 05/01/22 subcutaneous solution (Tresiba U-100 Insulin) insulin aspart U-100 100 unit/mL See Rx Instructions .Route .COMPLEX 03/14/21 05/01/22 subcutaneous solution (Novolog U-100 Insulin aspart) coenzyme Q10 100 mg capsule (Co 100 mg PO BID 10/03/21 05/01/22 Q-10) cyclopentolate 1 % eye drops 1 drp LEFT EYE BID 11/18/21 05/01/22 meloxicam 15 mg tablet 15 mg PO DAILY 11/18/21 05/01/22 gabapentin 300 mg capsule 300 mg PO HS 11/19/21 05/01/22 Allergies Allergy/AdvReac Type Severity Reaction Status Date / Time latex Allergy Severe itching Verified 05/20/22 15:59 metoclopramide Allergy Severe Redness of Verified 05/20/22 15:59 Skin Review of Systems Review of Systems: CONSTITUTIONAL: chills, and sweats .Denies fever, EYES: Right eye blindness denies visual changes, redness, or discharge. ENT: Denies rhinorrhea, congestion, sore throat, or otalgia. CARDIOVASCULAR: Denies chest pain, palpitations, or edema. RESPIRATORY: Denies cough or dyspnea. GASTROINTESTINAL: abdominal pain, nausea, vomiting, and diarrhea without blood GENITOURINARY: Denies dysuria or hematuria. SKIN: Denies rash or itching. MUSCULOSKELETAL: Denies back pain, joint pain, or myalgia. NEUROLOGIC: Denies headache, numbness, dizziness, or weakness. PSYCHIATRIC: Denies anxiety or depression. [facility] Past Medical History Medical History (Updated 05/20/22 @ 16:25 by Milan Baca MD) Allergies Anemia Anxiety Back pain Bronchitis Chicken pox Cyclical vomiting Depression Diabetes type 1, controlled Endometriosis Fatty liver Fibromyalgia Foot fracture, left GERD (gastroesophageal reflux disease) Heart murmur Herpes HLD (hyperlipidemia) HTN (hypertension) Hypothyroidism IBS (irritable bowel syndrome) Leukocytosis Peptic ulcer Pneumonia Rheumatoid arthritis Sleep apnea Uterine fibroid UTI (urinary tract infection) Vaginal disorder Vitamin B 12 deficiency Surgical History Surgical History H/O detached retina repair (~10/2020) History of hysterectomy History of laparoscopy pelvic laparoscopy with removal of uterine fibroids History of partial knee replacement Hx of cholecystectomy Family History Family History Mother Diabetes mellitus Hypertension Family history of elevated blood lipids Sibling Family history of obesity Patient's sister is in good health Father Hypertension Family history of cardiovascular disease Other Acute myocardial infarction Family history of arthritis Family history of heart disease in male family memb
[2022-05-20] MEDS: HALOPERIDOL LACTATE 5 MG/ML VIAL 2.5 MG IV PUSH ×2 (16:25→20:04)
[2022-05-20] MEDS: SODIUM CHLORIDE 0.9% IV 1,000 ML 999 ML IV CONT (16:25)
[2022-05-20 16:27] LABS: Basophils Absolute Auto 0.1 K/mm3 (0.0-0.1); Basophils Percent Auto 0.5 % (0.2-1.2); Eosinophils Absolute Auto 0.1 K/mm3 (0-0.3); Eosinophils Percent Auto 0.9 % (0-4.4); Hematocrit 44.8 % (37.0-47.0); Hemoglobin 14.8 g/dL (12.0-15.0); Immature Granulocyte Absolute 0.07 K/mm3 (0.00-0.031); Immature Granulocyte Percent A 0.5 % (0-0.5); Lymphocytes Absolute Auto 2.51 K/mm3 (0.9-3.2); Mean Corpuscular Hemoglobin 28.1 pg (26-34); Mean Platelet Volume 9.6 fl (7.4-10.4); Monocytes Absolute Auto 0.8 K/mm3 (0.1-0.6); Neutrophils Absolute Auto 10.3 K/mm3 (1.3-6.7); Neutrophils Percent Auto 74.1 % (45.5-73.1); Platelet Count Result 283 k/mm3 (150-375); Red Blood Count 5.27 M/mm3 (4.2-5.4); Red Cell Distribution Width 13.3 % (11.5-14.5)
[2022-05-20 16:37] LABS: Alanine Aminotransferase 24 U/L (6-35); Albumin Level 4.4 g/dL (3.5-5.1); Alkaline Phosphatase 138 U/L (38-126); Anion Gap 13 mmol/L (8-16); Aspartate Amino Transferase 31 U/L (14-36); Bilirubin,Total 0.7 mg/dL (0.2-1.3); Blood Urea Nitrogen 19 mg/dL (7-17); Calcium 10.5 mg/dL (8.4-10.2); Carbon Dioxide 27 mmol/L (22-30); Chloride 96 mmol/L (98-107); Estimated CRCL calculation 78 ml/min; Estimated Glomerular Filt Rate 53; Glucose 232 mg/dL (65-110); Lipase 78 U/L (23-300); Potassium 3.2 mmol/L (3.4-5.0); Sodium 136 mmol/L (137-145)
[2022-05-20 16:48] LABS: Troponin I 0.014 ng/mL (0.000-0.034)
[2022-05-20] MEDS: PROCHLORPERAZINE EDISYLATE 10 MG/2 ML VIAL IV PUSH (17:29)
[2022-05-20] MEDS: LABETALOL HCL INJ 100 MG/20 ML VIAL 20 MG IV PUSH ×2 (17:56→20:16)
[2022-05-20] MEDS: MORPHINE SULFATE INJ (*CRX) 10 MG/ML AMP 6 MG IV PUSH (17:56)
--- NOTE | 2022-05-20 18:10 | PC.NURSE ---
pt unable to provide urine sample at this time.
[2022-05-20 19:11] LABS: Appearance Urine Clear (Clear); Bilirubin Urine Negative (Negative); Blood Urine 2+ (Negative); Color Urine Yellow (Yellow); Glucose Urine UA 2+ mg/dL (Negative); Ketones Urine 1+ mg/dL (Negative); Leukocyte Esterase Ur Negative LEU/UL (Negative); Nitrate Urine Negative (Negative); Protein Urine 3+ mg/dL (Negative); Urobilinogen Urine 0.2 mg/dL (<2.0)
[2022-05-20 19:22] LABS: Bacteria Urine 2+ /hpf; Mucus Urine Rare /lpf; RBC Urine 21-50 /hpf (0-2); Squamous Epithelial Cell Urine Many /hpf (Few); WBC Urine 0-3 /hpf
[2022-05-20 19:24] LABS: Add Urine Microscopic? YES
--- NOTE | 2022-05-20 19:32 | PC.NURSE ---
Report received from KEELY Gibson. This nurse assumed care of patient at this time.
[2022-05-20 19:53] LABS: Troponin I < 0.012 ng/mL (0.000-0.034)
--- NOTE | 2022-05-20 21:13 | PC.NURSE ---
Patient taken to CT via stretcher.
--- NOTE | 2022-05-20 21:37 | PM.IMHP ---
H&P: HPI History of Present Illness Date/Time: 05/20/22 21:37 Chief Complaint: nausea and vomiting Narrative: This is a 46-year-old female with past medical history significant for cyclic vomiting syndrome, hypertension, obesity, peripheral diabetic neuropathy. patient presents to the emergency room due to nausea and vomiting intractable for the last 2 days or so uncontrolled hypertension with systolic in the 200s patient has not been able to take her medications. patient denies any fevers, rigors, chills, pain or burning with urination, cough, sputum production, no abdominal pain. preliminary workup was significant for potassium of 3.6, WBC [address]. A CT of abdomen and pelvis did not show acute abnormalities. Patient is been admitted for further evaluation management and treatment. Review of Systems Review of Systems: Nausea, vomiting of 2 days uncontrolled hypertension Constitutional: Constitutional: Denies chills, Reports fatigue, Denies fever(s), Denies headache(s), Reports malaise, Reports poor appetite and Reports weakness Eyes: Eyes: Denies change in vision ENT: Denies dysphagia and Denies odynophagia Cardiovascular: Cardiovascular: Denies chest pain, Denies irregular heart rhythm, Denies lightheadedness, Denies palpitations and Denies dyspnea on exertion Respiratory: Respiratory: Denies chest congestion, Denies cough, Denies excessive phlegm production, Denies pain on inspiration and Denies dyspnea Gastrointestinal: Gastrointestinal: Denies abdominal pain, Denies dyspepsia, Denies heartburn, Denies diarrhea, Reports nausea and Reports vomiting Genitourinary: Genitourinary: Denies dysuria Musculoskeletal: Musculoskeletal: Denies arthralgias, Denies joint swelling and Reports muscle weakness Integumentary/Breasts: Skin/Breast: Denies rash Neurologic: Denies vertigo, Denies dizziness, Denies focal weakness and Denies Sensory deficit (Neuro) Psychiatric: Psychiatric: Reports no additional psychiatric complaints and Reports as per HPI Endocrine: Endocrine: Denies cold intolerance, Denies fatigue, Denies flushing, Denies heat intolerance, Denies polyphagia, Denies polydipsia and Denies palpitations Hematologic/Lymphatic: Hematologic/Lymphatic: Reports no additional hematologic/lymphatic complaints and Reports as per HPI Allergic/Immunologic: Allergic/Immunologic: Reports no additional allergic/immunologic complaints and Reports as per HPI [facility] Past Medical History Medical History (Updated 05/20/22 @ 16:25 by Milan Baca MD) Allergies Anemia Anxiety Back pain Bronchitis Chicken pox Cyclical vomiting Depression Diabetes type 1, controlled Endometriosis Fatty liver Fibromyalgia Foot fracture, left GERD (gastroesophageal reflux disease) Heart murmur Herpes HLD (hyperlipidemia) HTN (hypertension) Hypothyroidism IBS (irritable bowel syndrome) Leukocytosis Peptic ulcer Pneumonia Rheumatoid arthritis Sleep apnea Uterine fibroid UTI (urinary tract infection) Vaginal disorder Vitamin B 12 deficiency Surgical History Surgical History H/O detached retina repair (~10/2020) History of hysterectomy History of laparoscopy pelvic laparoscopy with removal of uterine fibroids History of partial knee replacement Hx of cholecystectomy Family History Family History Mother Diabetes mellitus Hypertension Family history of elevated blood lipids Sibling Family history of obesity Patient's sister is in good health Father Hypertension Family history of cardiovascular disease Other Acute myocardial infarction Family history of arthritis Family history of heart disease in male family member before age 55 Family history of thyroid disease Social History Social History Social History: states she lives alone, with no children and h
--- NOTE | 2022-05-20 22:12 | PC.NURSE ---
Patient keeps removing her pulse ox and BP cuff off, states It keeps going off, and I don't like it. Patient instructed on the importance of keeping those on, patient still continues to remove her BP cuff and pulse ox. Patient informed of plan of care, agreeable to it. Patient does still keep her monitor leads on. warehouse selector aware of situation. Patients BP still elevated, provider and warehouse selector aware.
[2022-05-20] MEDS: PANTOPRAZOLE SODIUM IV 40 MG VIAL IV PUSH (23:55)
[2022-05-20] MEDS: hydrALAZINE HCL 20 MG/ML VIAL 10 MG IV PUSH (23:55)
[2022-05-21] VITALS (14 sets, daily range): BP systolic 133–194; BP diastolic 69–114; PULSE 97–120; RESP 20–22; TEMP 36.6–36.9; O2SAT 93–100; BMI 40.2
[2022-05-21] MEDS: TRIMETHOBENZAMIDE HCL 200 MG/2 ML VIAL IM ×3 (00:03→12:19)
--- NOTE | 2022-05-21 00:18 | ADMGEN ---
This patient, Jennifer Londono, was admitted to IMU Room 200-01 on 05/20/22 at 2328. Patient/family oriented to hospital policies and general routines including ID bracelet, bed and alarms, visiting hours, pain management, procedures, bathroom and other care routines, personal items, smoking policy, room service/diet, and visiting hours. Information on how to activate the Rapid Response Team has been discussed. Patient/Family are encouraged to report perceived risks to care and to ask questions if they do not understand what they are told or what they should do.
[2022-05-21] MEDS: diazePAM INJ (*CRX) 10 MG/2 ML SYRINGE 5 MG IV PUSH (01:16)
[2022-05-21] MEDS: cloNIDine 0.3 MG/24 HR PATCH 1 PATCH TRANSDERM (05:27)
[2022-05-21 06:39] LABS: Glucose Point of Care 448 mg/dl (65-105)
[2022-05-21] MEDS: INSULIN GLARGINE (*BKC) 100 UNITS/ML 35 UNITS SUB-Q (06:53)
[2022-05-21] MEDS: INSULIN ASPART (*BKC) 100 UNITS/ML 8 UNITS SUB-Q (06:54)
[2022-05-21 08:11] LABS: Glucose Point of Care 472 mg/dl (65-105)
[2022-05-21] MEDS: hydrALAZINE HCL 20 MG/ML VIAL 10 MG IV PUSH (08:12)
[2022-05-21] MEDS: PANTOPRAZOLE SODIUM IV 40 MG VIAL IV PUSH ×2 (08:17→20:32)
[2022-05-21] MEDS: PROCHLORPERAZINE MALEATE 5 MG TABLET 10 MG PO (09:09)
[2022-05-21 09:25] LABS: Anion Gap 12 mmol/L (8-16); Blood Urea Nitrogen 20 mg/dL (7-17); Calcium 9.7 mg/dL (8.4-10.2); Carbon Dioxide 24 mmol/L (22-30); Chloride 97 mmol/L (98-107); Estimated CRCL calculation 71 ml/min; Estimated Glomerular Filt Rate 48; Glucose 402 mg/dL (65-110); Potassium 3.2 mmol/L (3.4-5.0); Sodium 133 mmol/L (137-145)
[2022-05-21] MEDS: INSULIN ASPART (*BKC) 100 UNITS/ML 15 UNITS SUB-Q (09:37)
[2022-05-21] MEDS: METOPROLOL TARTRATE INJ 5 MG/5 ML VIAL IV PUSH (09:38)
[2022-05-21] MEDS: ERGOCALCIFEROL 50,000 UNIT CAPSULE 50000 UNITS PO (09:43)
[2022-05-21] MEDS: LORazepam INJ (*CRX) 2 MG/ML VIAL 0.5 MG IV PUSH (09:44)
[2022-05-21] MEDS: SODIUM CHLORIDE 0.9% IV 1,000 ML 50 ML IV CONT (10:04)
[2022-05-21] MEDS: POTASSIUM CHLORIDE INJ 40 MEQ in SODIUM CHLORIDE 0.9% IV 500 ML 130 MEQ IVPB (10:04)
--- NOTE | 2022-05-21 10:41 | PM.IMPN ---
Progress Note: A&P Assessment and Plan (1) Cyclical vomiting: Code(s): R11.15 - Cyclical vomiting syndrome unrelated to migraine Status: Acute Assessment and Plan: admit to regular medical floor NPO -consider advancing diet later today if she is feeling better. IV fluid supportive care continue to monitor (2) GERD without esophagitis: Code(s): K21.9 - Gastro-esophageal reflux disease without esophagitis Status: Acute Assessment and Plan: PPI (3) HTN (hypertension): Qualifiers: Hypertension type: unspecified Qualified Code(s): I10 - Essential (primary) hypertension Code(s): I10 - Essential (primary) hypertension Status: Acute Assessment and Plan: started clonidine patch restart home meds when clinically able Monitor blood pressure once taking p.o. we can resume her home meds (4) Diabetes type 1, controlled: Qualifiers: Diabetes mellitus complication detail: with other skin ulcer Diabetes mellitus complication status: with skin complications Qualified Code(s): E10.622 - Type 1 diabetes mellitus with other skin ulcer Code(s): E10.9 - Type 1 diabetes mellitus without complications Status: Acute Assessment and Plan: patient is NPO Accu-Cheks every 6 hours (5) Rheumatoid arthritis: Code(s): M06.9 - Rheumatoid arthritis, unspecified Status: Acute Assessment and Plan: unchanged (6) Obesity, Class III, BMI 40-49.9 (morbid obesity): Code(s): E66.01 - Morbid (severe) obesity due to excess calories Status: Acute Assessment and Plan: lifestyle and diet modifications Subjective Date/time seen: 05/21/22 10:41 Still having some nausea and vomiting and abdominal pain but it is improved. Exam Narrative: patient is sitting in a stretcher Const: General: well developed, alert, awake, acute distress, ill appearing and uncomfortable Nutritional Appearance: obese Orientation/consciousness: patient oriented x3 HENMT: Head: normal to inspection, normocephalic and atraumatic Ears: hearing grossly normal bilaterally Face and sinus: normal facial exam Eyes: General: appearance normal, both eyes and all related structures Pupils: Equal, round and reactive pupils present EOM: EOMs intact bilaterally Neck: Neck: full ROM, no lymphadenopathy and no JVD Thyroid: thyroid normal Lymphatic: no lymphadenopathy noted Resp: Effort & Inspection: normal respiratory effort and able to speak in complete sentences Auscultation: clear to auscultation bilaterally Cardio: Jugular venous distension: no JVD Rate: regular rate Rhythm: regular rhythm Heart sounds: S1 normal heart sound present and S2 normal heart sound present GI: Inspection: obesity : General: Yes deferred Skin: Rashes: no rashes Wounds: no wounds Neuro: General: patient oriented x3 and CN's II-XI intact bilaterally Cranial nerves: Yes CN's II-XII intact bilaterally and Yes Equal, round and reactive pupils present Cognition (Neuro): normal cognition Speech: normal speech Gait exam (Neuro): Normal gait present Motor exam (neuro): 5/5 motor strength present throughout Sensory Exam: No Sensory deficit (Neuro) Extrem: General: normal to inspection, full ROM, no joint enlargement and no pedal edema Objective Data Vital Signs Vital Signs: Vital Signs - 24 hr 05/20/22 15:54 05/20/22 18:08 05/20/22 18:08 Temperature 97.9 F Pulse Rate 102 H Respiratory Rate 18 Blood Pressure 166/106 H Pulse Oximetry 97 90 97 Oxygen Delivery Room Air Nasal Cannula Oxygen Flow Rate 3 05/20/22 17:50 05/20/22 18:12 05/20/22 20:24 Temperature Pulse Rate 103 H 87 83 Respiratory Rate 24 H 21 H 22 H Blood Pressure 223/122 H 212/108 H 207/114 H Pulse Oximetry 90 95 96 Oxygen Delivery Oxygen Flow Rate 05/20/22 21:08 05/20/22 21:58 05/20/22 22:46 Temperature 97.4 F L Pulse Rate 95 98 Respiratory Rate
[2022-05-21] MEDS: INSULIN ASPART (*BKC) 100 UNITS/ML 16 UNITS SUB-Q (12:18)
[2022-05-21] MEDS: GABAPENTIN 300 MG CAPSULE PO ×2 (12:19→17:54)
[2022-05-21 12:20] LABS: Glucose Point of Care 297 mg/dl (65-105)
[2022-05-21] MEDS: ACYCLOVIR 200 MG CAPSULE 400 MG PO ×2 (13:11→17:54)
[2022-05-21] MEDS: SERTRALINE HCL 50 MG TABLET 100 MG PO (14:19)
[2022-05-21] MEDS: METOPROLOL SUCCINATE EXT REL 50 MG TABCR PO (15:09)
[2022-05-21 17:17] LABS: Glucose Point of Care 231 mg/dl (65-105)
[2022-05-21] MEDS: INSULIN ASPART (*BKC) 100 UNITS/ML 14 UNITS SUB-Q (17:55)
[2022-05-21] MEDS: INSULIN ASPART (*BKC) 100 UNITS/ML SUB-Q (17:55)
[2022-05-21 20:03] LABS: Glucose Point of Care 296 mg/dl (65-105)
[2022-05-21] MEDS: AMITRIPTYLINE HCL 25 MG TABLET 75 MG PO (20:32)
[2022-05-21] MEDS: traZODone HCL 50 MG TABLET PO (20:32)
[2022-05-21] MEDS: PRAZOSIN HCL 1 MG CAPSULE 2 MG PO (20:32)
[2022-05-21] MEDS: INSULIN GLARGINE (*BKC) 100 UNITS/ML 72 UNITS SUB-Q (20:37)
[2022-05-21] MEDS: ALPRAZolam (*CRX) 0.5 MG TABLET PO (20:45)
[2022-05-21] MEDS: ZOLPIDEM TARTRATE (*CRX) 5 MG TABLET 10 MG PO (21:58)
[2022-05-22 05:16] VITALS: BP 149/89; PULSE 96; RESP 20; TEMP 36.2; O2SAT 100
[2022-05-22 05:32] LABS: Alanine Aminotransferase 17 U/L (6-35); Albumin Level 3.6 g/dL (3.5-5.1); Alkaline Phosphatase 97 U/L (38-126); Anion Gap 8 mmol/L (8-16); Aspartate Amino Transferase 32 U/L (14-36); Bilirubin,Total 0.5 mg/dL (0.2-1.3); Blood Urea Nitrogen 31 mg/dL (7-17); Carbon Dioxide 29 mmol/L (22-30); Chloride 101 mmol/L (98-107); Estimated CRCL calculation 45 ml/min; Estimated Glomerular Filt Rate 28; Glucose 156 mg/dL (65-110); Potassium 3.1 mmol/L (3.4-5.0); Sodium 138 mmol/L (137-145)
[2022-05-22] MEDS: SODIUM CHLORIDE 0.9% IV 1,000 ML 50 ML IV CONT (06:40)
[2022-05-22 07:55] VITALS: BP 160/85; PULSE 99; RESP 16; TEMP 36.4; O2SAT 95
[2022-05-22 08:08] LABS: Glucose Point of Care 142 mg/dl (65-105)
[2022-05-22] MEDS: POTASSIUM CHLORIDE INJ 40 MEQ in SODIUM CHLORIDE 0.9% IV 500 ML 130 MEQ IVPB (08:29)
[2022-05-22] MEDS: PROCHLORPERAZINE MALEATE 5 MG TABLET 10 MG PO (08:32)
[2022-05-22] MEDS: ACYCLOVIR 200 MG CAPSULE 400 MG PO ×2 (08:33→16:52)
[2022-05-22 08:34] VITALS: PULSE 125
[2022-05-22] MEDS: SERTRALINE HCL 50 MG TABLET 100 MG PO (08:34)
[2022-05-22] MEDS: METOPROLOL SUCCINATE EXT REL 50 MG TABCR PO (08:34)
[2022-05-22] MEDS: GABAPENTIN 300 MG CAPSULE PO ×3 (08:34→16:52)
[2022-05-22] MEDS: DOCUSATE SODIUM 100 MG CAPSULE PO (08:36)
[2022-05-22] MEDS: PANTOPRAZOLE SODIUM IV 40 MG VIAL IV PUSH ×2 (08:36→21:45)
[2022-05-22] MEDS: INSULIN ASPART (*BKC) 100 UNITS/ML 14 UNITS SUB-Q ×3 (08:37→18:09)
--- NOTE | 2022-05-22 10:14 | PM.IMPN ---
Progress Note: A&P Assessment and Plan (1) Cyclical vomiting: Code(s): R11.15 - Cyclical vomiting syndrome unrelated to migraine Status: Acute Assessment and Plan: This is improved, tolerating a diet. Monitor (2) GERD without esophagitis: Code(s): K21.9 - Gastro-esophageal reflux disease without esophagitis Status: Acute Assessment and Plan: PPI (3) HTN (hypertension): Qualifiers: Hypertension type: unspecified Qualified Code(s): I10 - Essential (primary) hypertension Code(s): I10 - Essential (primary) hypertension Status: Acute Assessment and Plan: Resume home medications (4) Diabetes type 1, controlled: Qualifiers: Diabetes mellitus complication detail: with other skin ulcer Diabetes mellitus complication status: with skin complications Qualified Code(s): E10.622 - Type 1 diabetes mellitus with other skin ulcer Code(s): E10.9 - Type 1 diabetes mellitus without complications Status: Acute Assessment and Plan: Monitor blood sugars. Patient is currently on her home insulin regimen blood sugars are improved (5) Rheumatoid arthritis: Code(s): M06.9 - Rheumatoid arthritis, unspecified Status: Acute Assessment and Plan: unchanged (6) Obesity, Class III, BMI 40-49.9 (morbid obesity): Code(s): E66.01 - Morbid (severe) obesity due to excess calories Status: Acute Assessment and Plan: lifestyle and diet modifications (7) Elevated serum creatinine: Code(s): R79.89 - Other specified abnormal findings of blood chemistry Status: Acute Assessment and Plan: Likely related to dehydration in the setting of nausea vomiting and NPO for a couple days. Patient is on IV fluids. Will recheck labs in the morning. If trending downward she can be discharged. No signs of obstruction. Will check urine sodium and creatinine. Subjective Date/time seen: 05/22/22 10:14 No complaints, tolerating a diet Exam Narrative: patient is sitting in a stretcher Const: General: well developed, alert, awake, acute distress, ill appearing and uncomfortable Nutritional Appearance: obese Orientation/consciousness: patient oriented x3 HENMT: Head: normal to inspection, normocephalic and atraumatic Ears: hearing grossly normal bilaterally Face and sinus: normal facial exam Eyes: General: appearance normal, both eyes and all related structures Pupils: Equal, round and reactive pupils present EOM: EOMs intact bilaterally Neck: Neck: full ROM, no lymphadenopathy and no JVD Thyroid: thyroid normal Lymphatic: no lymphadenopathy noted Resp: Effort & Inspection: normal respiratory effort and able to speak in complete sentences Auscultation: clear to auscultation bilaterally Cardio: Jugular venous distension: no JVD Rate: regular rate Rhythm: regular rhythm Heart sounds: S1 normal heart sound present and S2 normal heart sound present GI: Inspection: obesity : General: Yes deferred Skin: Rashes: no rashes Wounds: no wounds Neuro: General: patient oriented x3 and CN's II-XI intact bilaterally Cranial nerves: Yes CN's II-XII intact bilaterally and Yes Equal, round and reactive pupils present Cognition (Neuro): normal cognition Speech: normal speech Gait exam (Neuro): Normal gait present Motor exam (neuro): 5/5 motor strength present throughout Sensory Exam: No Sensory deficit (Neuro) Extrem: General: normal to inspection, full ROM, no joint enlargement and no pedal edema Objective Data Vital Signs Vital Signs: Vital Signs - 24 hr 05/21/22 12:00 05/21/22 12:00 05/21/22 12:00 Temperature 98.3 F Pulse Rate 112 H 111 H Respiratory Rate 20 Blood Pressure 152/69 H Pulse Oximetry 94 Oxygen Delivery Room Air 05/21/22 14:00 05/21/22 15:09 05/21/22 18:14 Temperature 98.5 F Pulse Rate 109 H 111 H 103 H Respiratory Rate 20 Blood Pressure 144/88 H Pulse O
[2022-05-22] MEDS: SILVERGEL (ELTA) 45 ML 1 APPLIC TOPICAL (12:02)
[2022-05-22 12:03] LABS: Glucose Point of Care 139 mg/dl (65-105)
[2022-05-22] MEDS: ALPRAZolam (*CRX) 0.5 MG TABLET PO ×2 (12:32→21:57)
[2022-05-22] MEDS: ACETAMINOPHEN 325 MG TABLET 650 MG PO ×2 (12:32→21:55)
[2022-05-22 16:00] VITALS: BP 161/91; PULSE 84; RESP 14; TEMP 36.6; O2SAT 97
[2022-05-22 16:50] LABS: Glucose Point of Care 187 mg/dl (65-105)
[2022-05-22 17:27] LABS: Creatinine Urine 183.2 mg/dL; Sodium Urine Random 32 meq/L
[2022-05-22] MEDS: SODIUM CHLORIDE 0.9% IV 1,000 ML 100 ML IV CONT (18:11)
[2022-05-22 20:00] VITALS: BP 165/92; PULSE 72; RESP 16; TEMP 36.6; O2SAT 98
[2022-05-22 20:56] LABS: Glucose Point of Care 170 mg/dl (65-105)
[2022-05-22] MEDS: PRAZOSIN HCL 1 MG CAPSULE 2 MG PO (21:47)
[2022-05-22] MEDS: AMITRIPTYLINE HCL 25 MG TABLET 75 MG PO (21:47)
[2022-05-22] MEDS: traZODone HCL 50 MG TABLET PO (21:47)
[2022-05-22] MEDS: ZOLPIDEM TARTRATE (*CRX) 5 MG TABLET 10 MG PO (21:56)
[2022-05-22] MEDS: INSULIN GLARGINE (*BKC) 100 UNITS/ML 72 UNITS SUB-Q (21:57)
[2022-05-22 23:55] VITALS: BP 174/90; PULSE 88; RESP 14; TEMP 36.3; O2SAT 95
[2022-05-23] MEDS: SODIUM CHLORIDE 0.9% IV 1,000 ML 100 ML IV CONT (04:53)
[2022-05-23] MEDS: cloNIDine 0.3 MG/24 HR PATCH 1 PATCH TRANSDERM (06:00)
[2022-05-23 08:00] VITALS: BP 164/87; PULSE 99; RESP 16; TEMP 36.5; O2SAT 99
[2022-05-23 08:25] LABS: Glucose Point of Care 156 mg/dl (65-105)
[2022-05-23 08:44] LABS: Hematocrit 38.7 % (37.0-47.0); Hemoglobin 12.5 g/dL (12.0-15.0); Mean Corpuscular HGB Conc 32.3 g/dl (32-36); Mean Corpuscular Hemoglobin 28.9 pg (26-34); Mean Corpuscular Volume 89.6 fl (80-100); Mean Platelet Volume 9.8 fl (7.4-10.4); Platelet Count Result 229 k/mm3 (150-375); Red Blood Count 4.32 M/mm3 (4.2-5.4); Red Cell Distribution Width 13.4 % (11.5-14.5); White Blood Count 9.6 K/mm3 (4.5-10.0)
[2022-05-23 09:00] LABS: Anion Gap 7 mmol/L (8-16); Blood Urea Nitrogen 21 mg/dL (7-17); Calcium 9.1 mg/dL (8.4-10.2); Carbon Dioxide 25 mmol/L (22-30); Chloride 105 mmol/L (98-107); Estimated CRCL calculation 72 ml/min; Estimated Glomerular Filt Rate 48; Glucose 147 mg/dL (65-110); Potassium 3.2 mmol/L (3.4-5.0); Sodium 137 mmol/L (137-145)
[2022-05-23] MEDS: ACYCLOVIR 200 MG CAPSULE 400 MG PO (09:21)
[2022-05-23] MEDS: GABAPENTIN 300 MG CAPSULE PO ×2 (09:21→12:14)
[2022-05-23] MEDS: POTASSIUM CHLORIDE 20 MEQ TABLET 40 MEQ PO (09:21)
[2022-05-23] MEDS: DOCUSATE SODIUM 100 MG CAPSULE PO (09:21)
[2022-05-23 09:22] VITALS: PULSE 105
[2022-05-23] MEDS: METOPROLOL SUCCINATE EXT REL 50 MG TABCR PO (09:22)
[2022-05-23] MEDS: PANTOPRAZOLE SODIUM IV 40 MG VIAL IV PUSH (09:22)
[2022-05-23] MEDS: SERTRALINE HCL 50 MG TABLET 100 MG PO (09:22)
[2022-05-23] MEDS: SILVERGEL (ELTA) 45 ML 1 APPLIC TOPICAL (09:22)
[2022-05-23] MEDS: INSULIN ASPART (*BKC) 100 UNITS/ML 14 UNITS SUB-Q ×2 (09:23→12:20)
[2022-05-23 09:31] LABS: Magnesium 1.6 mg/dL (1.6-2.3)
[2022-05-23] MEDS: MAGNESIUM SULF 2 GM/WATER 50ML 2 GM/50 ML BAG IVPB (10:01)
[2022-05-23] MEDS: ALPRAZolam (*CRX) 0.5 MG TABLET PO (12:14)
[2022-05-23 12:19] LABS: Glucose Point of Care 182 mg/dl (65-105)
[2022-05-23] MEDS: ACETAMINOPHEN 325 MG TABLET 650 MG PO (12:19)
[2022-05-23 15:15] LABS: Anion Gap 7 mmol/L (8-16); Blood Urea Nitrogen 17 mg/dL (7-17); Carbon Dioxide 24 mmol/L (22-30); Chloride 106 mmol/L (98-107); Estimated CRCL calculation 72 ml/min; Estimated Glomerular Filt Rate 48; Glucose 158 mg/dL (65-110); Magnesium 2.1 mg/dL (1.6-2.3); Potassium 3.5 mmol/L (3.4-5.0); Sodium 137 mmol/L (137-145)
--- NOTE | 2022-05-23 15:37 | PM.DS ---
DS: Admitting Diagnosis Discharge Date 05/23/2022 Admitting Diagnosis nausea and vomiting DS: Discharge Diagnosis Discharge Diagnosis (1) Cyclical vomiting: Code(s): R11.15 - Cyclical vomiting syndrome unrelated to migraine Status: Acute Assessment and Plan: This is improved, tolerating a diet. Monitor (2) GERD without esophagitis: Code(s): K21.9 - Gastro-esophageal reflux disease without esophagitis Status: Acute Assessment and Plan: PPI (3) HTN (hypertension): Qualifiers: Hypertension type: unspecified Qualified Code(s): I10 - Essential (primary) hypertension Code(s): I10 - Essential (primary) hypertension Status: Acute Assessment and Plan: Resume home medications (4) Diabetes type 1, controlled: Qualifiers: Diabetes mellitus complication detail: with other skin ulcer Diabetes mellitus complication status: with skin complications Qualified Code(s): E10.622 - Type 1 diabetes mellitus with other skin ulcer Code(s): E10.9 - Type 1 diabetes mellitus without complications Status: Acute Assessment and Plan: Monitor blood sugars. Patient is currently on her home insulin regimen blood sugars are improved (5) Rheumatoid arthritis: Code(s): M06.9 - Rheumatoid arthritis, unspecified Status: Acute Assessment and Plan: unchanged (6) Obesity, Class III, BMI 40-49.9 (morbid obesity): Code(s): E66.01 - Morbid (severe) obesity due to excess calories Status: Acute Assessment and Plan: lifestyle and diet modifications (7) Elevated serum creatinine: Code(s): R79.89 - Other specified abnormal findings of blood chemistry Status: Acute Assessment and Plan: Likely related to dehydration in the setting of nausea vomiting and NPO for a couple days. Patient is on IV fluids. Will recheck labs in the morning. If trending downward she can be discharged. No signs of obstruction. Will check urine sodium and creatinine. DS: Summary Hospital Course Reason for hospitalization: nausea and vomiting Narrative: ?This is a 46-year-old female with past medical history significant for cyclic vomiting syndrome, hypertension, obesity, peripheral diabetic neuropathy. patient presents to the emergency room due to nausea and vomiting intractable for the last 2 days or so uncontrolled hypertension with systolic in the 200s patient has not been able to take her medications. patient denies any fevers, rigors, chills, pain or burning with urination, cough, sputum production, no abdominal pain.? preliminary workup was significant for potassium of 3.6, WBC 57183. ? A CT of abdomen and pelvis did not show acute abnormalities. Patient is been admitted for further evaluation management and treatment. Hospital Course: morbidly obese patient with history of cyclic vomiting and GERD being treated with a PPI and anti emetics, patient's symptoms have improved today, patient with type 1 diabetes her blood sugars are trending down, today patient states feeling much better compared to when she arrived has no new complaint will discharge the patient today. Time Spent with Patient Time attestation: Total time spent providing and/or coordinating discharge services: Exam Narrative: morbidly obese Patient is comfortable, NAD HEENT: eyes are clear and none icteric LUNGS: normal respiratory effort ABD: distended Lower extremities: no edema SKIN: nonjaundiced Neuro: grossly intact. DS: Data Data Completed and Pending Labs on day of discharge: Labs from last 24 hours 05/23/22 05/23/22 05/23/22 14:54 12:03 08:22 WBC RBC Hgb Hct MCV MCH MCHC RDW Plt Count MPV Sodium 137 Potassium 3.5 Chloride 106 Carbon Dioxide 24 Anion Gap 7 L BUN 17 Creatinine 1.20 H Estim Creat Clear Calc 72 Estimated GFR 48 L Glucose 158 H POC Capillary
== END 2022-05-23 16:05 | disposition home or self-care (01) ==
LOC: ANHED 16:45 → ANHIMU 23:05
PROVIDERS: Chiropractor; Internal Medicine; Admitting Provider Internal Medicine; Emergency Provider Preventive Medicine Aerospace Medicine; PCP Internal Medicine; Visit Provider Family Medicine
DX: R11.15 Cyclical vomiting syndrome unrelated to migraine (principal); K21.9 Gastro-esophageal reflux disease without esophagitis; I11.9 Hypertensive heart disease without heart failure; E10.622 Type 1 diabetes mellitus with other skin ulcer; E10.42 Type 1 diabetes mellitus with diabetic polyneuropathy; L98.499 Non-pressure chronic ulcer of skin of other sites with unspecified severity; K58.0 Irritable bowel syndrome with diarrhea; M06.9 Rheumatoid arthritis, unspecified; R07.9 Chest pain, unspecified; E66.01 Morbid (severe) obesity due to excess calories; Z68.41 Body mass index [BMI] 40.0-44.9, adult; R79.89 Other specified abnormal findings of blood chemistry; Z79.891 Long term (current) use of opiate analgesic; D64.9 Anemia, unspecified; F41.9 Anxiety disorder, unspecified; F32.A Depression, unspecified; K76.0 Fatty (change of) liver, not elsewhere classified; M79.7 Fibromyalgia; R01.1 Cardiac murmur, unspecified; I44.4 Left anterior fascicular block; E78.5 Hyperlipidemia, unspecified; E03.9 Hypothyroidism, unspecified; G47.30 Sleep apnea, unspecified; E53.8 Deficiency of other specified B group vitamins; Z90.710 Acquired absence of both cervix and uterus; Z90.49 Acquired absence of other specified parts of digestive tract; Z79.52 Long term (current) use of systemic steroids; Z79.4 Long term (current) use of insulin; Z79.899 Other long term (current) drug therapy; Z83.3 Family history of diabetes mellitus; Z82.49 Family history of ischemic heart disease and other diseases of the circulatory system; Z84.89 Family history of other specified conditions
CPT/HCPCS: 36415; 74177; 80048; 80053; 81001; 82570; 82948; 83690; 83735; 84300; 84484; 85025; 85027; 93005; 96361; 96374; 96375; 96376; 99285; A9270; C9113; G0378; J0131; J0360; J0780; J1630; J1815; J2060; J2270; J3250; J3360; J3475; J3480; J7030; J7040; Q9967

== ENCOUNTER 2022-06-06 07:38 | Observation (INO) | payer BC, SELFPAY ==
--- NOTE | ~2022-06-06 | CT_ITS ---
EXAMINATION: CT abdomen pelvis wo con DATE: 06/06/2022 09:21 INDICATION: Abdominal pain TECHNIQUE: Computed tomography (CT) of the abdomen and pelvis was performed without intravenous contr ast. Automated exposure control and iterative reconstruction technique were employed. The dose-length product was 1550.46 mGy-cm. COMPARISON: 05/20/2022 FINDINGS: Mild bibasilar atelectasis/scarring. No pleural effusion. Mild cardiomegaly. Atherosclerotic coronary artery calcification. Minimal pericardial effusion. Diffuse hepatic steatosis. Cholecystectomy clips at the gallbladder fossa. A few tiny splenic calcific lesions consistent with old granulomatous dise ase. Pancreas, bilateral adrenal glands and kidneys are normal. The uterus is not identified and has likely been surgically resected. Bladder and left ovary are normal. 11 mm cyst along side the otherwi se normal right ovary. Normal appendix. No bowel obstruction. No free intraperitoneal gas or fluid. A gain noted is a mildly prominent right external iliac chain lymph node which is unchanged since CT da irvin 07/03/2020. No other pathologically enlarged abdominal or pelvic lymphadenopathy. No free intraper itoneal gas or fluid. Mild lumbar and moderate lower thoracic spondylosis. Chronic mild T10 compressi on fracture with <20% central vertebral body height loss. IMPRESSION: 1. No acute intra-abdominal/pelvic process. 2. Diffuse hepatic steatosis. Reviewed, dictated and finalized at location A.
--- NOTE | ~2022-06-06 | XR_ITS ---
EXAMINATION: XR chest 2V DATE: 06/06/2022 09:30 INDICATION: Sepsis. Vomiting. TECHNIQUE: Frontal and lateral views of the chest were obtained. COMPARISON: Chest single view 12/24/2020, CT abdomen and pelvis 06/06/2022 FINDINGS: There is mild atelectasis in lingula. No pleural effusion or pneumothorax. The heart size i s normal. IMPRESSION: 1. Mild atelectasis in lingula. Reviewed, dictated and finalized at location A.
--- NOTE | 2022-06-06 07:43 | ED.NAVMDI ---
HPI - Nausea/Vomiting/Diarrhea General Chief complaint: Nausea/Vomiting/Diarrhea Stated complaint: cyclic vomiting x 12 hours, bs high (469) Time Seen by Provider: 06/06/22 07:42 Source: patient and family Mode of arrival: ambulatory Limitations: no limitations History of Present Illness HPI Narrative: The patient is a 46-year-old female with a history of hypertension, diabetes, presenting to the emergency department for evaluation of nausea, vomiting and abdominal pain. Pain is aching in nature throughout her abdomen. No radiation of the pain. Vomiting seems to worsen the pain. Has been associated with over 12 hours of intractable nausea and vomiting. Patient states that her glucose levels have been greater than 400 and she feels that her blood pressure is uncontrolled. She has not been able to take any of her medications secondary to the vomiting. She reports 2 large volume stools without blood or significant diarrhea. She denies cramping abdominal pain throughout her abdomen. Patient denies fever, chills, cough, chest pain, shortness of breath. Patient states that she was recently at an urgent care and diagnosed with a sinus infection yesterday. Related Data Home Medications Medication Instructions Recorded Confirmed acyclovir 400 mg tablet 400 mg PO BID 11/02/19 05/21/22 alprazolam 1 mg tablet 0.5 mg PO TID PRN Anxiety 11/02/19 05/21/22 docusate sodium 100 mg capsule 100 mg PO DAILY 11/02/19 05/21/22 (Colace) sertraline 100 mg tablet (Zoloft) 100 mg PO DAILY 11/02/19 05/21/22 zolpidem 10 mg tablet 10 mg PO QPM PRN Insomnia 11/02/19 05/21/22 prazosin 2 mg capsule (Minipress) 2 mg PO HS 07/03/20 05/21/22 insulin degludec 100 unit/mL 72 unit subcut HS 09/14/20 05/21/22 subcutaneous solution (Tresiba U-100 Insulin) insulin aspart U-100 100 unit/mL See Rx Instructions .Route .COMPLEX 03/14/21 05/21/22 subcutaneous solution (Novolog U-100 Insulin aspart) coenzyme Q10 100 mg capsule (Co 100 mg PO BID 10/03/21 05/21/22 Q-10) gabapentin 300 mg capsule 300 mg PO TID 11/19/21 05/21/22 amitriptyline 25 mg tablet 75 mg PO HS 05/21/22 05/21/22 diclofenac sodium 1 % topical gel 2 g topical QID PRN Pain 05/21/22 05/21/22 (Voltaren Arthritis Pain) losartan 100 mg tablet 100 mg PO DAILY 05/21/22 05/21/22 metoprolol succinate 50 mg 50 mg PO DAILY 05/21/22 05/21/22 tablet,extended release 24 hr prednisolone acetate 1 % eye 2 drp RIGHT EYE DAILY 05/21/22 05/21/22 drops,suspension prochlorperazine maleate 10 mg 10 mg PO Q4-6H PRN Nausea And 05/21/22 05/21/22 tablet Vomiting trazodone 50 mg tablet 50 mg PO HS 05/21/22 05/21/22 Allergies Allergy/AdvReac Type Severity Reaction Status Date / Time latex Allergy Severe itching Verified 05/20/22 15:59 metoclopramide Allergy Severe Redness of Verified 05/20/22 15:59 Skin Review of Systems Review of Systems: CONSTITUTIONAL: Denies fever, chills, or sweats. EYES: Denies visual changes, redness, or discharge. ENT: Denies rhinorrhea, congestion, sore throat, or otalgia. CARDIOVASCULAR: Denies chest pain, palpitations, or edema. RESPIRATORY: Denies cough or dyspnea. GASTROINTESTINAL: Reports abdominal pain, nausea and vomiting GENITOURINARY: Denies dysuria or hematuria. SKIN: Denies rash or itching. MUSCULOSKELETAL: Denies back pain, joint pain, reports generalized myalgias NEUROLOGIC: Denies headache, numbness, or weakness. [facility] Past Medical History Medical History (Updated 06/06/22 @ 10:34 by Suzy Velázquez MD) Allergies Anemia Anxiety Back pain Bronchitis Chicken pox Cyclical vomiting Depression Diabetes type 1, controlled Endometriosis Fatty liver Fibromyalgia Foot fracture, left GERD (gastroesophageal reflux disease) Heart murmur Herpes HLD (hyperlipidemia) HTN (hypertension) Hypothyroidism IBS (irritable bowel syndrome) Leukocytosis Peptic ulcer Pneumonia Rheumatoid arthritis Sleep apnea Uterine fibroid UTI (urinary tract infection)
[2022-06-06 07:53] VITALS: BP 161/91; PULSE 103; RESP 18; TEMP 36.5; O2SAT 95
[2022-06-06 08:06] LABS: Glucose Point of Care 439 mg/dl (65-105)
[2022-06-06] MEDS: LACTATED RINGERS 1,000 ML 999 ML IV CONT (08:17)
[2022-06-06 08:31] LABS: Basophils Percent Auto 0.2 % (0.2-1.2); Hematocrit 45.1 % (37.0-47.0); Immature Granulocyte Absolute 0.15 K/mm3 (0.00-0.031); Immature Granulocyte Percent A 0.8 % (0-0.5); Lymphocytes Absolute Auto 1.19 K/mm3 (0.9-3.2); Lymphocytes Percent Auto 6.2 % (18.3-44.2); Mean Corpuscular HGB Conc 33.3 g/dl (32-36); Mean Corpuscular Hemoglobin 28.5 pg (26-34); Mean Corpuscular Volume 85.6 fl (80-100); Mean Platelet Volume 10.2 fl (7.4-10.4); Monocytes Absolute Auto 0.8 K/mm3 (0.1-0.6); Monocytes Percent Auto 3.9 % (2.6-8.5); Neutrophils Percent Auto 88.9 % (45.5-73.1); Platelet Count Result 346 k/mm3 (150-375); Red Blood Count 5.27 M/mm3 (4.2-5.4); Red Cell Distribution Width 13.2 % (11.5-14.5); White Blood Count 19.1 K/mm3 (4.5-10.0)
[2022-06-06 08:50] LABS: Beta-Hydroxybutyrate/Acetoacetate 0.27 mmol/L (0.02-0.27)
[2022-06-06 08:56] LABS: Albumin Level 4.5 g/dL (3.5-5.1); Alkaline Phosphatase 149 U/L (38-126); Anion Gap 17 mmol/L (8-16); Aspartate Amino Transferase 51 U/L (14-36); Bilirubin,Total 0.9 mg/dL (0.2-1.3); Blood Urea Nitrogen 27 mg/dL (7-17); Calcium 10.3 mg/dL (8.4-10.2); Carbon Dioxide 25 mmol/L (22-30); Chloride 95 mmol/L (98-107); Estimated CRCL calculation 43 ml/min; Estimated Glomerular Filt Rate 27; Glucose 465 mg/dL (65-110); Magnesium 1.6 mg/dL (1.6-2.3); Phosphorus 2.1 mg/dL (2.5-4.5); Sodium 137 mmol/L (137-145)
[2022-06-06 09:41] LABS: Alanine Aminotransferase 35 U/L (6-35)
[2022-06-06] MEDS: SODIUM CHLORIDE 0.9% IV 1,000 ML 999 ML IV CONT (09:42)
[2022-06-06] MEDS: MORPHINE SULFATE (*CRX) 4 MG/ML INJ IV PUSH (09:43)
[2022-06-06] MEDS: FAMOTIDINE 20 MG/2 ML VIAL IV PUSH ×2 (09:43→20:06)
[2022-06-06 09:48] LABS: Appearance Urine Slightly Cloudy (Clear); Bilirubin Urine 1+ (Negative); Blood Urine 2+ (Negative); Color Urine Yellow (Yellow); Glucose Urine UA 3+ mg/dL (Negative); Ketones Urine Trace mg/dL (Negative); Leukocyte Esterase Ur Negative LEU/UL (Negative); Nitrate Urine Negative (Negative); Protein Urine 3+ mg/dL (Negative); Urobilinogen Urine 0.2 mg/dL (<2.0)
[2022-06-06 09:51] LABS: Bacteria Urine Trace /hpf; Mucus Urine Rare /lpf; Squamous Epithelial Cell Urine Few /hpf (Few)
[2022-06-06 09:52] LABS: Add Urine Microscopic? YES
--- NOTE | 2022-06-06 09:59 | PC.NURSE ---
blood glucose 377 at 10:00
[2022-06-06 10:00] LABS: Glucose Point of Care 377 mg/dl (65-105)
[2022-06-06 10:02] LABS: Fractional Inspired Oxygen 21 %; HCO3 VBG 24.8 mEq/l (24.0-30.0); PCO2 VBG 35.7 mmHg (42.0-48.0); PO2 VBG 50.4 mmHg (35.0-45.0)
[2022-06-06 10:05] LABS: Device ROOM AIR
[2022-06-06 10:27] LABS: Lactic Acid Reflex 4.1 mmol/L (0.7-2.0)
[2022-06-06 12:45] VITALS: BMI 39.9
--- NOTE | 2022-06-06 13:00 | PM.IMHP ---
H&P: HPI History of Present Illness Date/Time: 06/06/22 13:00 Chief Complaint: Nausea, vomiting, high blood sugar. Narrative: This is a 46-year-old female with with insulin-dependent diabetes, hypertension, gastroesophageal reflux disease, rheumatoid arthritis, and cyclic vomiting syndrome who presented to the emergency department for evaluation of nausea, vomiting, and high blood sugar. She was recently discharged from hospital on 05/23/2022 after several day stay in which she was admitted for nausea and vomiting attributed to her cyclic vomiting. She felt a bit better on discharge but was not 100%. She has continued to have some nausea and last evening she began vomiting, reportedly ?vomiting continuously for 12 hours.? Her glucose has been in the 400s and she was having difficulties getting that down. Vital signs were stable on arrival to the emergency department and in fact her blood pressures have been running a bit high. Pertinent labs include a white blood cell count of 19.1, sodium 137, potassium 4.0, BUN 27, creatinine 2.00, glucose 465, lactic acid 4.1, and beta hydroxybutyrate of 0.27. CT of the abdomen/pelvis, chest x-ray, and urinalysis showed no concerning findings. She has since been admitted for aggressive IV fluid rehydration and close monitoring of her glucose. At the time my evaluation she is feeling a bit better and has not vomited since being admitted to the floor. She does have some pain in her abdominal muscles from retching but she has no overt abdominal pain. She also denies fever, chills, sore throat, cough shortness of breath, chest pain, diarrhea, dysuria, hematemesis, melena, and hematochezia. She has had a lot of stress recently and she thinks this is what is causing her symptoms. Review of Systems Review of Systems: Twelve systems were reviewed. She has had some sweats but no fever. Occasional sinus congestion. She reports that her eyes feel ?gritty?. She is being followed by a developmental training counselor for a right diabetic foot ulcer and that was apparently debrided recently. She was prescribed Augmentin though she has not been able to hold that down. Except as documented, all other systems were reviewed and are negative. [facility] Past Medical History Medical History (Updated 06/06/22 @ 13:57 by Henny Herrera PA-C) Anxiety Bronchitis Cyclic vomiting syndrome Depression Endometriosis Fatty liver Fibromyalgia Gastroesophageal reflux disease Herpes Hyperlipidemia Hypertension Hypothyroidism Insulin dependent diabetes mellitus Irritable bowel syndrome Peptic ulcer Rheumatoid arthritis Sleep apnea Uterine fibroid Vitamin B 12 deficiency Surgical History Surgical History (Updated 06/06/22 @ 13:52 by Henny Herrera PA-C) History of cholecystectomy History of detached retina repair History of hysterectomy History of laparoscopy Removal of uterine fibroids History of partial knee replacement Family History Family History Mother Diabetes mellitus Hypertension Family history of elevated blood lipids Sibling Family history of obesity Patient's sister is in good health Father Hypertension Family history of cardiovascular disease Other Acute myocardial infarction Family history of arthritis Family history of heart disease in male family member before age 55 Family history of thyroid disease Social History Social History (Updated 06/06/22 @ 13:54 by Henny Herrera PA-C) Social History: Lives alone in [place]. with no children. No alcohol, tobacco, illicit substance abuse. Surrogate decision maker: Susan Ghoshzier, sister. Code status: Full code. Spiritual care concerns: No Meds Home Medications and Allergies Home Medications Medication Instructions Recorded Confirmed Type acyclovir 400 mg tablet 400 mg PO BID 11/02/19 06/06/22 History alprazolam 1 mg tablet 0.5 mg PO TID PRN Anxiety 11/02/19 06/06/22 His
[2022-06-06 13:10] LABS: Reflex Lactic Acid Yes or No Add Lactic
[2022-06-06 14:00] VITALS: PULSE 108; RESP 18; TEMP 36.9; O2SAT 98
[2022-06-06] MEDS: LACTATED RINGERS 1,000 ML 125 ML IV CONT ×2 (14:01→23:02)
[2022-06-06 14:29] LABS: Lactic Acid Reflex 3.6 mmol/L (0.7-2.0)
[2022-06-06 14:30] LABS: Anion Gap 13 mmol/L (8-16); Blood Urea Nitrogen 26 mg/dL (7-17); Calcium 9.7 mg/dL (8.4-10.2); Carbon Dioxide 27 mmol/L (22-30); Chloride 97 mmol/L (98-107); Estimated CRCL calculation 53 ml/min; Estimated Glomerular Filt Rate 35; Glucose 332 mg/dL (65-110); Magnesium 1.5 mg/dL (1.6-2.3); Phosphorus 2.4 mg/dL (2.5-4.5); Potassium 3.2 mmol/L (3.4-5.0); Sodium 137 mmol/L (137-145)
[2022-06-06 14:33] LABS: CRP 2.6 mg/dL (<1.0)
[2022-06-06] MEDS: ONDANSETRON INJ 4 MG/2 ML VIAL IV PUSH (14:55)
[2022-06-06 14:56] VITALS: PULSE 103; RESP 18; O2SAT 95
[2022-06-06 15:31] LABS: Procalcitonin 0.3 ng/mL
[2022-06-06 16:59] LABS: Glucose Point of Care 297 mg/dl (65-105)
[2022-06-06 17:18] LABS: Hemoglobin A1C 8.9 % (<5.7)
[2022-06-06] MEDS: INSULIN ASPART (*BKC) 100 UNITS/ML 6 UNITS SUB-Q (17:21)
[2022-06-06] MEDS: INSULIN ASPART (*BKC) 100 UNITS/ML SUB-Q (17:23)
[2022-06-06] MEDS: ARTIFICIAL TEARS OPHTH SOLN 15 ML BOTTLE 1 DROP EACH EYE ×2 (17:27→21:07)
[2022-06-06] MEDS: MAGNESIUM SULF 2 GM/WATER 50ML 2 GM/50 ML BAG IVPB (19:27)
[2022-06-06] MEDS: POTASSIUM PHOS,M-BASIC-D-BASIC 20 MMOL in SODIUM CHLORIDE 0.9% IV 250 ML 64.17 MMOL IVPB (20:06)
--- NOTE | 2022-06-06 21:05 | PC.NURSE ---
charge nurse Sara called Henny about pt home medication orders, awaiting delivery of medication from pharmacy
--- NOTE | 2022-06-06 21:06 | PC.NURSE ---
called pharmacy for pt medication, awaiting arrival of medication
[2022-06-06 22:00] VITALS: BP 163/99; PULSE 97; RESP 16; TEMP 36.8; O2SAT 96
[2022-06-06] MEDS: AMITRIPTYLINE HCL 25 MG TABLET 75 MG PO (22:02)
[2022-06-06] MEDS: traZODone HCL 50 MG TABLET PO (22:03)
[2022-06-06] MEDS: INSULIN GLARGINE (*BKC) 100 UNITS/ML 72 UNITS SUB-Q (22:04)
[2022-06-06] MEDS: ALPRAZolam (*CRX) 0.5 MG TABLET PO (22:20)
[2022-06-06] MEDS: PRAZOSIN HCL 1 MG CAPSULE 2 MG PO (23:06)
[2022-06-06 23:52] LABS: Glucose Point of Care 285 mg/dl (65-105)
[2022-06-07 05:42] VITALS: BP 148/83; PULSE 104; RESP 16; TEMP 36.8; O2SAT 91
[2022-06-07 05:44] LABS: Hematocrit 39.3 % (37.0-47.0); Hemoglobin 12.7 g/dL (12.0-15.0); Mean Corpuscular HGB Conc 32.3 g/dl (32-36); Mean Corpuscular Hemoglobin 28.5 pg (26-34); Mean Corpuscular Volume 88.1 fl (80-100); Mean Platelet Volume 9.6 fl (7.4-10.4); Platelet Count Result 249 k/mm3 (150-375); Red Blood Count 4.46 M/mm3 (4.2-5.4); Red Cell Distribution Width 13.3 % (11.5-14.5); White Blood Count 11.2 K/mm3 (4.5-10.0)
[2022-06-07 06:07] LABS: Alanine Aminotransferase 21 U/L (6-35); Albumin Level 3.4 g/dL (3.5-5.1); Alkaline Phosphatase 101 U/L (38-126); Anion Gap 8 mmol/L (8-16); Aspartate Amino Transferase 34 U/L (14-36); Bilirubin,Total 0.5 mg/dL (0.2-1.3); Blood Urea Nitrogen 23 mg/dL (7-17); Calcium 9.2 mg/dL (8.4-10.2); Carbon Dioxide 30 mmol/L (22-30); Chloride 98 mmol/L (98-107); Estimated CRCL calculation 61 ml/min; Estimated Glomerular Filt Rate 40; Glucose 170 mg/dL (65-110); Potassium 2.9 mmol/L (3.4-5.0); Sodium 136 mmol/L (137-145)
[2022-06-07 06:13] VITALS: BP 148/83; PULSE 104; RESP 16; TEMP 36.8; O2SAT 91
--- NOTE | 2022-06-07 06:14 | PC.NURSE ---
called MD Fuentes to report potassium 2.9
--- NOTE | 2022-06-07 06:36 | PC.NURSE ---
pt decline to take potassium at this time, pt state will take later this morning
[2022-06-07] MEDS: LACTATED RINGERS 1,000 ML 125 ML IV CONT (06:37)
--- NOTE | 2022-06-07 06:41 | PC.NURSE ---
pt decline daily weight this morning.
[2022-06-07 08:04] LABS: Glucose Point of Care 159 mg/dl (65-105)
[2022-06-07] MEDS: POTASSIUM CHLORIDE 20 MEQ TABLET 40 MEQ PO (08:19)
--- NOTE | 2022-06-07 10:06 | PC.NURSE ---
pt refuses care this am. pt called nurses station at 0830 stating she needs to see her nurse. this nurse immediately goes to her room and asked pt what was going on this morning. She states, I am having a panic attack. I stated that I have some xanax for her and asked if she would like me to get that at this time. She replied, yes. I told her to sit and breathe and I will be right back with her xanax. I get the xanax, go back to her room with her other medications as well. I inform her that I have her xanax and her morning meds. She states that she cannot take PO meds at this time because she was nauseated and she feels that the po meds will make her vomit. She states she is upset that she was not given her night meds. I informed pt that they were restarted this morning and that I have them at this time. I told her that I will give her some IV zofran to calm her nausea feeling so she can take her po xanax and the meds that she states she did not get last night. She states she wants a shower before taking po meds. at 1015 pt still in shower. I asked if she was finished with her shower so I can give her her morning meds that were restarted this am. She refuses to get out of the shower stating that she doesn't feel feel good and the shower makes her feel better. I told her that I have her morning meds to help make her feel better. Pt still refuses to get out of shower and says she will take meds later. I will attempt to give her morning meds again at 1100.
--- NOTE | 2022-06-07 13:14 | PC.NURSE ---
pt still declines morning meds at this time
--- NOTE | 2022-06-07 13:21 | PC.NURSE ---
KEELY Davidson reported that patient is in the shower this morning, refusing to get out and take morning medications. I spoke to the patient around 1230 through the bathroom door. I asked the patient to get out of the shower so that the RN and MD can assess her and do their job. Patient stated, The only thing that helps is a hot shower. I asked the patient to get out of the shower. Patient stated, I will later.
--- NOTE | 2022-06-07 13:24 | PM.IMPN ---
Progress Note: A&P Assessment and Plan (1) Acute renal failure: Code(s): N17.9 - Acute kidney failure, unspecified Status: Acute Assessment and Plan: She likely has chronic kidney disease however her creatinine is once again elevated from baseline due to dehydration. I suspect her renal function will improve with IV fluid rehydration thus will continue with IV fluids overnight and recheck renal function in a.m. Avoid nephrotoxic agents. (2) Dehydration: Code(s): E86.0 - Dehydration Status: Acute Assessment and Plan: Continue IV fluid rehydration. (3) Lactic acidosis: Code(s): E87.2 - Acidosis Status: Acute Assessment and Plan: Infectious seems less likely by history and her CT, UA, and chest x-ray showed no acute findings. More over I think her lactic acid is elevated because of her profound dehydration, may be in part due to lab draw technique as well. Nonetheless will obtain blood cultures and monitor. (4) Leukocytosis: Code(s): D72.829 - Elevated white blood cell count, unspecified Status: Acute Assessment and Plan: Most likely a stress response. See above. (5) Insulin dependent diabetes mellitus: Status: Acute Assessment and Plan: Hyperglycemic on arrival to the ER today. Glucose has improved somewhat with aggressive IV fluid rehydration. Continue basal insulin and initiate sliding scale insulin. (6) Cyclic vomiting syndrome: Code(s): R11.15 - Cyclical vomiting syndrome unrelated to migraine Status: Acute Assessment and Plan: Patient reports increasing stress recently and she thinks this is what is setting off her cyclic vomiting. Continue supportive care with IV fluid rehydration antiemetics as needed. (7) Hypertension: Code(s): I10 - Essential (primary) hypertension Status: Acute Assessment and Plan: Blood pressures have been running high though she did not take her medications this morning due to vomiting. Once more stable, we will resume antihypertensives. Monitor closely. (8) Gastroesophageal reflux disease: Code(s): K21.9 - Gastro-esophageal reflux disease without esophagitis Status: Acute Assessment and Plan: Continue IV Protonix while NPO. Subjective Date/time seen: 06/07/22 13:24 Still having abdominal pain nausea vomiting cramping Exam Narrative: General: Well-developed female lying in bed in no distress. Weight: 119.2 kg. BMI: 40. HEENT: She hold her right eye shot a lot of the time due to vision loss from retinal detachment. Extraocular motions intact. Sclerae anicteric. Conjunctiva mildly injected. Tacky mucous membranes. Neck: Supple. Respiratory: Lungs are clear to auscultation bilaterally. Cardiovascular: Regular rate and rhythm with S1-S2. Gastrointestinal: Abdomen is soft, obese, and nontender with positive bowel sounds. Skin: Warm and dry. There is a diabetic foot ulcer at the tip of the right 1st toe, recently wrapped. Not removed for exam. Extremities: No cyanosis, clubbing, or edema. Radial and pedal pulses intact. Neurological: Alert. Cranial nerves 2-12 are grossly intact. No gross focal deficits to casual conversation. Psychiatric: Pleasant and cooperative with normal mood and affect. Judgment and insight intact. Objective Data Vital Signs Vital Signs: Vital Signs - 24 hr 06/06/22 14:00 06/06/22 14:56 06/06/22 14:00 Temperature 98.4 F Pulse Rate 103 H 108 H Respiratory Rate 18 18 Blood Pressure Pulse Oximetry 95 98 Oxygen Delivery Room Air Room Air 06/06/22 22:00 06/07/22 05:42 06/07/22 06:13 Temperature 98.2 F 98.2 F 98.2 F Pulse Rate 97 104 H 104 H Respiratory Rate 16 16 16 Blood Pressure 163/99 H 148/83 H 148/83 H Pulse Oximetry 96 91 91 Oxygen Delivery Room Air 06/07/22 08:00 Temperature Pulse Rate Respiratory Rate Blood Pressure Pulse Oximetry Oxygen Delivery
[2022-06-07 14:00] VITALS: BP 157/85; PULSE 105; RESP 19; TEMP 37.1; O2SAT 96
[2022-06-07 14:16] LABS: Glucose Point of Care 321 mg/dl (65-105)
[2022-06-07] MEDS: INSULIN ASPART (*BKC) 100 UNITS/ML SUB-Q ×2 (14:17→17:50)
[2022-06-07] MEDS: POTASSIUM CHLORIDE INJ 40 MEQ in SODIUM CHLORIDE 0.9% IV 500 ML 130 MEQ IVPB (16:58)
[2022-06-07 17:00] VITALS: PULSE 92
[2022-06-07] MEDS: METOPROLOL SUCCINATE EXT REL 50 MG TABCR PO (17:00)
[2022-06-07] MEDS: FAMOTIDINE 20 MG/2 ML VIAL IV PUSH ×2 (17:00→20:59)
[2022-06-07] MEDS: DOCUSATE SODIUM 100 MG CAPSULE PO (17:00)
[2022-06-07] MEDS: ENOXAPARIN 40 MG/0.4 ML SYRINGE SUB-Q (17:00)
[2022-06-07] MEDS: prednisoLONE ACETATE 1% OPHTH 5 ML 2 DROP RIGHT EYE (17:01)
[2022-06-07] MEDS: ACYCLOVIR 400 MG TABLET PO (17:01)
[2022-06-07] MEDS: PANTOPRAZOLE 40 MG TABLET PO (17:02)
[2022-06-07] MEDS: GABAPENTIN 300 MG CAPSULE PO (17:02)
[2022-06-07] MEDS: SILVERGEL (ELTA) 45 ML 1 APPLIC TOPICAL (17:03)
[2022-06-07 17:13] LABS: Glucose Point of Care 246 mg/dl (65-105)
[2022-06-07 20:01] VITALS: BP 146/92; PULSE 81; RESP 16; TEMP 36.6; O2SAT 96
[2022-06-07] MEDS: AMITRIPTYLINE HCL 25 MG TABLET 75 MG PO (20:20)
[2022-06-07] MEDS: PRAZOSIN HCL 1 MG CAPSULE 2 MG PO (20:20)
[2022-06-07] MEDS: SERTRALINE HCL 50 MG TABLET 100 MG PO (20:21)
[2022-06-07] MEDS: traZODone HCL 50 MG TABLET PO (20:21)
[2022-06-07] MEDS: INSULIN GLARGINE (*BKC) 100 UNITS/ML 72 UNITS SUB-Q (20:42)
[2022-06-07] MEDS: ZOLPIDEM TARTRATE (*CRX) 5 MG TABLET 10 MG PO (20:42)
[2022-06-07] MEDS: ALPRAZolam (*CRX) 0.5 MG TABLET PO (20:42)
[2022-06-07 20:46] LABS: Glucose Point of Care 229 mg/dl (65-105)
[2022-06-07] MEDS: MORPHINE SULFATE (*CRX) 2 MG/ML INJ IV PUSH (22:51)
[2022-06-08 05:13] VITALS: BP 146/79; PULSE 94; RESP 16; TEMP 36.4; O2SAT 92
[2022-06-08] MEDS: LACTATED RINGERS 1,000 ML 125 ML IV CONT ×2 (05:14→16:05)
[2022-06-08 07:40] LABS: Glucose Point of Care 138 mg/dl (65-105)
[2022-06-08] MEDS: PANTOPRAZOLE 40 MG TABLET PO ×2 (09:25→16:05)
[2022-06-08] MEDS: LOSARTAN POTASSIUM 100 MG TABLET PO (09:25)
[2022-06-08] MEDS: GABAPENTIN 300 MG CAPSULE PO ×3 (09:25→16:05)
[2022-06-08] MEDS: ACYCLOVIR 400 MG TABLET PO ×2 (09:25→16:04)
[2022-06-08] MEDS: ACETAMINOPHEN 325 MG TABLET 650 MG PO ×2 (09:25→19:51)
[2022-06-08] MEDS: prednisoLONE ACETATE 1% OPHTH 5 ML 2 DROP RIGHT EYE (09:26)
[2022-06-08] MEDS: DOCUSATE SODIUM 100 MG CAPSULE PO (09:27)
[2022-06-08] MEDS: cefTRIAXone 2 GM in SODIUM CHLORIDE 0.9% IV 100 ML 200 ML IVPB (09:27)
[2022-06-08] MEDS: SILVERGEL (ELTA) 45 ML 1 APPLIC TOPICAL (09:32)
[2022-06-08 10:19] VITALS: PULSE 80
[2022-06-08] MEDS: ENOXAPARIN 40 MG/0.4 ML SYRINGE SUB-Q (10:19)
[2022-06-08] MEDS: METOPROLOL SUCCINATE EXT REL 50 MG TABCR PO (10:19)
[2022-06-08] MEDS: FAMOTIDINE 20 MG/2 ML VIAL IV PUSH (10:20)
[2022-06-08 10:49] LABS: Basophils Absolute Auto 0.1 K/mm3 (0.0-0.1); Basophils Percent Auto 0.7 % (0.2-1.2); Eosinophils Absolute Auto 0.2 K/mm3 (0-0.3); Eosinophils Percent Auto 1.4 % (0-4.4); Hemoglobin 12.7 g/dL (12.0-15.0); Immature Granulocyte Absolute 0.06 K/mm3 (0.00-0.031); Immature Granulocyte Percent A 0.5 % (0-0.5); Lymphocytes Absolute Auto 2.06 K/mm3 (0.9-3.2); Lymphocytes Percent Auto 18.4 % (18.3-44.2); Mean Corpuscular HGB Conc 32.6 g/dl (32-36); Mean Corpuscular Hemoglobin 28.5 pg (26-34); Mean Corpuscular Volume 87.4 fl (80-100); Mean Platelet Volume 9.7 fl (7.4-10.4); Monocytes Absolute Auto 0.7 K/mm3 (0.1-0.6); Monocytes Percent Auto 5.9 % (2.6-8.5); Neutrophils Absolute Auto 8.2 K/mm3 (1.3-6.7); Neutrophils Percent Auto 73.1 % (45.5-73.1); Platelet Count Result 234 k/mm3 (150-375); Red Blood Count 4.46 M/mm3 (4.2-5.4); Red Cell Distribution Width 13.2 % (11.5-14.5); White Blood Count 11.2 K/mm3 (4.5-10.0)
[2022-06-08 10:52] LABS: Lactic Acid Reflex 1.8 mmol/L (0.7-2.0)
[2022-06-08 10:53] LABS: Alanine Aminotransferase 30 U/L (6-35); Albumin Level 3.6 g/dL (3.5-5.1); Alkaline Phosphatase 109 U/L (38-126); Anion Gap 13 mmol/L (8-16); Aspartate Amino Transferase 44 U/L (14-36); Bilirubin,Total 0.4 mg/dL (0.2-1.3); Blood Urea Nitrogen 18 mg/dL (7-17); Calcium 8.8 mg/dL (8.4-10.2); Carbon Dioxide 27 mmol/L (22-30); Chloride 98 mmol/L (98-107); Estimated CRCL calculation 69 ml/min; Estimated Glomerular Filt Rate 44; Glucose 222 mg/dL (65-110); Magnesium 1.6 mg/dL (1.6-2.3); Phosphorus 2.6 mg/dL (2.5-4.5); Potassium 3.2 mmol/L (3.4-5.0); Sodium 138 mmol/L (137-145)
[2022-06-08 11:27] LABS: Glucose Point of Care 306 mg/dl (65-105)
[2022-06-08] MEDS: INSULIN ASPART (*BKC) 100 UNITS/ML SUB-Q (12:55)
[2022-06-08 13:05] LABS: Glucose Point of Care 250 mg/dl (65-105)
--- NOTE | 2022-06-08 13:54 | PM.IMPN ---
Progress Note: A&P Assessment and Plan (1) Bacteremia: Code(s): R78.81 - Bacteremia Status: Acute Assessment and Plan: One of 2 blood culture bottles have returned positive with Gram-positive cocci. Given her elevated white count and lactic acidosis, there was concern that she may have had sepsis so antibiotics were started. Blood culture has returned as Staph epi. Probably more likely contaminant. Will stop antibiotics. Repeat blood cultures. (2) Acute renal failure: Code(s): N17.9 - Acute kidney failure, unspecified Status: Acute Assessment and Plan: She likely has chronic kidney disease however her creatinine is once again elevated from baseline to 2.0. Probably due to dehydration. She was started on IV fluid rehydration and renal function has improved. Cr 1.3 today. Avoid nephrotoxic agents. Continue to follow. (3) Lactic acidosis: Code(s): E87.2 - Acidosis Status: Acute Assessment and Plan: Infectious seems less likely by history. CT of the Abd/pelvis negative far any acute findings. UA not consistent with UTI. CXR showed no acute findings. Lactic acid is elevated because of her profound dehydration and/or may be in part due to lab draw technique as well. BCx results as above. Repeat lactic acid 1.8. (4) Leukocytosis: Code(s): D72.829 - Elevated white blood cell count, unspecified Status: Acute Assessment and Plan: White count 19K on admission. Given the clinical situation, was felt the elevated white count was de margination from stress response. White count has trended downward off antibiotics. Follow (5) Insulin dependent diabetes mellitus: Status: Acute Assessment and Plan: Hyperglycemic on arrival to the ER. Glucose has improved somewhat with aggressive IV fluid rehydration. Continue basal insulin and sliding scale insulin. Add meal time insulin (6) Cyclic vomiting syndrome: Code(s): R11.15 - Cyclical vomiting syndrome unrelated to migraine Status: Acute Assessment and Plan: Patient reports increasing stress recently and she thinks this is what is setting off her cyclic vomiting. Continue supportive care (7) Hypertension: Code(s): I10 - Essential (primary) hypertension Status: Acute Assessment and Plan: Blood pressure reasonably well controlled. Continue to monitor and continue to add back medications. (8) Gastroesophageal reflux disease: Code(s): K21.9 - Gastro-esophageal reflux disease without esophagitis Status: Acute Assessment and Plan: Continue oral Protonix. Stop IV pepcid Subjective Date/time seen: 06/08/22 13:54 Interval history: 46yo female with DM and cyclic vomiting here for n/v and diarrhea Assuming care. Chart reviewed. Patient complaining of lower abdominal pain. Also complains of low back pain. She has dysuria. She is voiding small volumes and has urinary frequency. No vaginal discharge. No vaginal redness. Eating okay. No nausea vomiting. Not sexually active. Denies any STD history. Exam Narrative: AF 97.6 146/79 94 16 92% ra Gen - NARD Chest - CTA bilaterally, nml RR CV - RRR S1/S2 Abd -soft. Nondistended. Diffuse pain without guarding. Back -bilateral CVA tenderness. Ext -trace pedal edema Psych - Nml mood and affect Skin - Warm and dry Objective Data Vital Signs Vital Signs: Vital Signs - 24 hr 06/07/22 14:00 06/07/22 17:00 06/07/22 20:01 Temperature 98.8 F 97.8 F Pulse Rate 105 H 92 81 Respiratory Rate 19 16 Blood Pressure 157/85 H 146/92 H Pulse Oximetry 96 96 Oxygen Delivery 06/07/22 20:00 06/08/22 05:13 06/08/22 10:19 Temperature 97.6 F Pulse Rate 94 80 Respiratory Rate 16 Blood Pressure 146/79 H Pulse Oximetry 92 Oxygen Delivery Room Air 06/08/22 08:00 Temperature Pulse Rate Respiratory Rate Blood Pressure Pulse Oximetry Oxygen
[2022-06-08] MEDS: MORPHINE SULFATE (*CRX) 2 MG/ML INJ IV PUSH (13:55)
[2022-06-08 14:00] VITALS: BP 144/76; PULSE 88; RESP 16; TEMP 36.4; O2SAT 97
[2022-06-08 16:25] LABS: Glucose Point of Care 192 mg/dl (65-105)
[2022-06-08] MEDS: POTASSIUM CHLORIDE 20 MEQ TABLET 40 MEQ PO (18:03)
[2022-06-08] MEDS: INSULIN ASPART (*BKC) 100 UNITS/ML 9 UNITS SUB-Q (18:04)
[2022-06-08 20:21] VITALS: BP 143/83; PULSE 69; RESP 16; TEMP 36.5; O2SAT 97
[2022-06-08] MEDS: PRAZOSIN HCL 1 MG CAPSULE 2 MG PO (20:41)
[2022-06-08] MEDS: SERTRALINE HCL 50 MG TABLET 100 MG PO (20:41)
[2022-06-08] MEDS: AMITRIPTYLINE HCL 25 MG TABLET 75 MG PO (20:41)
[2022-06-08] MEDS: traZODone HCL 50 MG TABLET PO (20:42)
[2022-06-08] MEDS: INSULIN GLARGINE (*BKC) 100 UNITS/ML 72 UNITS SUB-Q (22:37)
[2022-06-08] MEDS: ALPRAZolam (*CRX) 0.5 MG TABLET PO (22:38)
[2022-06-08] MEDS: ZOLPIDEM TARTRATE (*CRX) 5 MG TABLET 10 MG PO (22:38)
[2022-06-08] MEDS: traMADol HCL (*CRX) 50 MG TABLET PO (22:46)
[2022-06-09 00:35] LABS: Glucose Point of Care 175 mg/dl (65-105)
[2022-06-09 05:24] VITALS: BP 150/81; PULSE 85; RESP 16; TEMP 36.5; O2SAT 91
[2022-06-09] MEDS: PANTOPRAZOLE 40 MG TABLET PO (05:58)
[2022-06-09 06:18] LABS: Anion Gap 7 mmol/L (8-16); Blood Urea Nitrogen 14 mg/dL (7-17); Calcium 9.1 mg/dL (8.4-10.2); Carbon Dioxide 30 mmol/L (22-30); Chloride 104 mmol/L (98-107); Estimated CRCL calculation 81 ml/min; Estimated Glomerular Filt Rate 53; Glucose 122 mg/dL (65-110); Potassium 3.1 mmol/L (3.4-5.0); Sodium 141 mmol/L (137-145)
[2022-06-09 07:39] LABS: Glucose Point of Care 139 mg/dl (65-105)
[2022-06-09 08:31] VITALS: PULSE 87
[2022-06-09] MEDS: DOCUSATE SODIUM 100 MG CAPSULE PO (08:31)
[2022-06-09] MEDS: GABAPENTIN 300 MG CAPSULE PO ×2 (08:31→11:59)
[2022-06-09] MEDS: METOPROLOL SUCCINATE EXT REL 50 MG TABCR PO (08:31)
[2022-06-09] MEDS: ACYCLOVIR 400 MG TABLET PO (08:31)
[2022-06-09] MEDS: ENOXAPARIN 40 MG/0.4 ML SYRINGE SUB-Q (08:32)
[2022-06-09] MEDS: LOSARTAN POTASSIUM 100 MG TABLET PO (08:32)
[2022-06-09] MEDS: ARTIFICIAL TEARS OPHTH SOLN 15 ML BOTTLE 1 DROP EACH EYE (08:32)
[2022-06-09] MEDS: POTASSIUM CHLORIDE 20 MEQ TABLET 40 MEQ PO (08:33)
[2022-06-09] MEDS: SILVERGEL (ELTA) 45 ML 1 APPLIC TOPICAL (08:33)
[2022-06-09] MEDS: prednisoLONE ACETATE 1% OPHTH 5 ML 2 DROP RIGHT EYE (08:33)
[2022-06-09] MEDS: INSULIN ASPART (*BKC) 100 UNITS/ML 9 UNITS SUB-Q ×2 (08:35→11:55)
[2022-06-09 11:37] LABS: Glucose Point of Care 167 mg/dl (65-105)
--- NOTE | 2022-06-09 12:07 | PM.DS ---
DS: Admitting Diagnosis Discharge Date 06/09/22 Admitting Diagnosis Nausea and vomiting DS: Discharge Diagnosis Discharge Diagnosis (1) Bacteremia: Code(s): R78.81 - Bacteremia Status: Acute (2) Acute renal failure: Code(s): N17.9 - Acute kidney failure, unspecified Status: Acute (3) Lactic acidosis: Code(s): E87.2 - Acidosis Status: Acute (4) Leukocytosis: Code(s): D72.829 - Elevated white blood cell count, unspecified Status: Acute (5) Insulin dependent diabetes mellitus: Status: Acute (6) Cyclic vomiting syndrome: Code(s): R11.15 - Cyclical vomiting syndrome unrelated to migraine Status: Acute (7) Hypertension: Code(s): I10 - Essential (primary) hypertension Status: Acute (8) Gastroesophageal reflux disease: Code(s): K21.9 - Gastro-esophageal reflux disease without esophagitis Status: Acute DS: Summary Hospital Course Reason for hospitalization: 46yo female with DM and cyclic vomiting here for n/v and diarrhea. Please see H&P for details. Hospital Course: Patient present with n/v and diarrhea. She was found to have LUKE. She likely has underlying CKD however her creatinine is once again elevated from baseline to 2.0. Probably due to dehydration. She was started on IV fluid rehydration and renal function has improved. White count 19K on admission.? Given the clinical situation, was felt the elevated white count was demargination from stress response more so than infection.? White count trended downward to 11K while not on antibiotics.?Lactic acid level was elevated. Infection seems less likely by history. CT of the Abd/pelvis negative for any acute findings. UA not consistent with UTI and UCx negative. CXR showing no acute findings. Lactic acid was elevated because of her profound dehydration and/or may be in part due to lab draw technique as well. Repeat lactic acid normalized. One of 2 blood culture bottles have returned positive with Gram-positive cocci.? Antibiotics were started but Blood culture has returned as Staph epi.? Probably more likely contaminant.? Antibiotics stopped and BCx repeated. Will follow up on BCx results but overall feel that unlikely she was truly bacteremia. Hyperglycemic on arrival to the ER. Glucose has improved somewhat with aggressive IV fluid rehydration. We continued basal insulin and sliding scale insulin. We added meal time insulin. Patient reports increasing stress recently and she thinks this is what is setting off her cyclic vomiting. She had clinical improvement. She was complaining of lower abdominal pain, dysuria and back pain. Work up was unrevealing. She was educated about drinking plenty of free fluids and doing timed voids. She was started on liquid diet and advanced as she tolerated. She is eating without n/v and diarrhea resolved. She denies any vaginal symptoms or perineal pain. Will try pyridium for a few doses to see if this makes her dyuria better (side effects discussed). She overall did well and was able to be discharged home on 06/09/22 Status at Discharge Cognitive/behavioral status at discharge: Stable Time Spent with Patient Time attestation: Total time spent providing and/or coordinating discharge services: 35 minutes Time spent: Greater than 30 minutes Exam Narrative: AF 97.7 150/81 87 16 91% ra Gen - NARD Chest - CTA bilaterally, nml RR CV - RRR S1/S2 Abd -soft. Nondistended. +BS. Complains of lower abdominal pain but no grimacing or guarding. Ext - no pedal edema Psych - Nml mood and affect Skin - Warm and dry DS: Data Data Completed and Pending Labs on day of discharge: Labs from last 24 hours 06/09/22 06/09/22 06/09/22 11:35 07:34 05:35 Sodium 141 Potassium 3.1 L Chloride 104 Carbon Dioxide 30 Anion Gap 7 L BUN 14 Creatinine 1.10 H Estim Creat Clear Calc 81 Estimated GFR 53 L Glucose 122 H POC Capill
--- NOTE | 2022-06-14 07:17 | PC.NURSE ---
Blood cx are negative. Dr. Juan Antonio osborn.
== END 2022-06-09 14:15 | disposition home or self-care (01) ==
LOC: ANHED 10:34 → ANH3MEDSUR 11:22
PROVIDERS: Physician Assistant; Admitting Provider Family Medicine; Emergency Provider Emergency Medicine; PCP Internal Medicine; Visit Provider Internal Medicine
DX: N17.9 Acute kidney failure, unspecified (principal); R78.81 Bacteremia; E86.0 Dehydration; E10.65 Type 1 diabetes mellitus with hyperglycemia; E87.2 Acidosis; D72.829 Elevated white blood cell count, unspecified; R11.15 Cyclical vomiting syndrome unrelated to migraine; I10 Essential (primary) hypertension; Z79.4 Long term (current) use of insulin; F32.A Depression, unspecified; F41.9 Anxiety disorder, unspecified; E78.5 Hyperlipidemia, unspecified; E03.9 Hypothyroidism, unspecified; K58.9 Irritable bowel syndrome, unspecified; K76.0 Fatty (change of) liver, not elsewhere classified; M06.9 Rheumatoid arthritis, unspecified; E53.8 Deficiency of other specified B group vitamins; K21.9 Gastro-esophageal reflux disease without esophagitis; B00.9 Herpesviral infection, unspecified; Z79.52 Long term (current) use of systemic steroids
CPT/HCPCS: 36415; 71046; 74176; 80048; 80053; 81001; 81025; 82010; 82803; 82948; 83036; 83605; 83735; 84100; 84145; 84443; 85025; 85027; 86140; 87040; 87086; 87088; 87186; 96361; 96365; 96366; 96367; 96375; 96376; 99285; A9270; G0378; J0131; J0692; J0696; J1650; J1815; J2270; J2405; J3370; J3475; J3480; J7030; J7040; J7050; J7120

== ENCOUNTER 2022-09-13 13:19 | Outpatient (CLI) | payer BC, SELFPAY ==
--- NOTE | ~2022-09-13 | MMUS_ITS ---
EXAMINATION: MM diagnostic wilberto BI w harsh, US breast BI limited HISTORY: History of abnormal left mammogram TECHNIQUE: Craniocaudal, mediolateral, and mediolateral oblique 3-D tomosynthesis images of the breas ts were performed and synthetic 2-D images were generated. CAD analysis was submitted and interpreted . High resolution limited bilateral breast ultrasound was performed. COMPARISON: 04/29/2020, 07/25/2019, 07/08/2019 BREAST PARENCHYMAL COMPOSITION: There are scattered areas of fibroglandular density. FINDINGS: MAMMOGRAPHIC FINDINGS: No suspicious mass, calcification, or architectural distortion are identified in either breast to sug gest malignancy. There has been no suspicious interval change. An asymmetry outer right breast does n ot persist with spot compression. No suspicious correlate is identified for the patient's left breast pain. ULTRASOUND: There is no evidence of focal abnormal solid or cystic mass in the vicinity of the mammographic findi ngs in question or the patient's left breast pain. IMPRESSION: 1. No mammographic or sonographic evidence of malignancy. 2. Recommend routine screening mammography in one year. BI-RADS Category 1: Negative Reviewed, dictated and finalized at location A. TECH IMPRESSION: 1. No mammographic or sonographic evidence of malignancy. 2. Recommend routine screening mammography in one year. BI-RADS Category 1: Negative
== END 2022-09-13 13:20 | disposition home or self-care (01) ==
LOC: ANHIMG 13:21
PROVIDERS: PCP Internal Medicine; Visit Provider Obstetrics & Gynecology Gynecology
DX: N63.22 Unspecified lump in the left breast, upper inner quadrant (principal)
CPT/HCPCS: 76642; 77062; 77066; G0279

== ENCOUNTER 2022-10-05 10:27 | Outpatient (CLI) | payer BC, SELFPAY ==
[2022-10-05 11:27] LABS: Albumin Level 3.8 g/dL (3.5-5.1); Anion Gap 9 mmol/L (8-16); Blood Urea Nitrogen 25 mg/dL (7-17); Calcium 9.8 mg/dL (8.4-10.2); Carbon Dioxide 24 mmol/L (22-30); Chloride 106 mmol/L (98-107); Estimated Glomerular Filt Rate 48; Glucose 238 mg/dL (65-110); Phosphorus 3.6 mg/dL (2.5-4.5); Potassium 3.5 mmol/L (3.4-5.0); Sodium 139 mmol/L (137-145)
[2022-10-05 11:30] LABS: Complement C3 163 mg/dL (88-165)
[2022-10-07 20:26] LABS: Albumin 3.3 g/dL (3.8-4.8); Alpha 1 Globulin 0.3 g/dL (0.2-0.3); Alpha 2 Globulin 0.9 g/dL (0.5-0.9); Beta 1 Globulin 0.5 g/dL (0.4-0.6); Gamma Globulin 0.8 g/dL (0.8-1.7); Protein, Total 6.3 g/dL (6.1-8.1)
[2022-10-08 20:15] LABS: ANCA Screen Negative (Negative)
[2022-10-10 10:31] LABS: Anti Glomerular Basement Memb <1.0 AI (<1.0)
== END 2022-10-05 10:28 | disposition home or self-care (01) ==
LOC: ANHLAB 10:27
PROVIDERS: PCP Internal Medicine; Visit Provider Internal Medicine Nephrology
DX: R94.4 Abnormal results of kidney function studies (principal); I10 Essential (primary) hypertension; E10.9 Type 1 diabetes mellitus without complications; R80.8 Other proteinuria
CPT/HCPCS: 36415; 80069; 83520; 84155; 84165; 86036; 86038; 86160; 86225

== ENCOUNTER 2022-11-22 16:56 | Outpatient (CLI) | payer BC, SELFPAY ==
--- NOTE | ~2022-11-22 | XR_ITS ---
XR chest 2V 11/22/2022 17:28 Indication: Shortness of breath Procedure: PA and lateral views of the chest Comparison: Comparison to multiple prior studies sequentially, with oldest reviewed study dated 10/2019. Findings: Ill-defined airspace disease of the right mid and lower lung. Heart size normal. No pleural effusion or pneumothorax. Impression: 1: Ill-defined airspace disease right mid and lower lung, consistent with pneumonia. Reviewed, dictated and finalized at location A. LOADER Impression: 1: Ill-defined airspace disease right mid and lower lung, consistent with pneum onia.
[2022-11-22 17:32] LABS: Potassium 3.3 mmol/L (3.4-5.0)
[2022-11-22 17:35] LABS: Anion Gap 9 mmol/L (8-16); Blood Urea Nitrogen 22 mg/dL (7-17); Calcium 9.4 mg/dL (8.4-10.2); Carbon Dioxide 22 mmol/L (22-30); Chloride 101 mmol/L (98-107); Estimated Glomerular Filt Rate 32; Glucose 335 mg/dL (65-110); Sodium 132 mmol/L (137-145)
[2022-11-22 17:41] LABS: NT Pro B Type Natriuretic Pept 104 pg/mL (19.9-100)
[2022-11-22 18:44] LABS: Basophils Absolute Auto 0.1 K/mm3 (0.0-0.1); Basophils Percent Auto 0.5 % (0.2-1.2); Eosinophils Absolute Auto 0.1 K/mm3 (0-0.3); Eosinophils Percent Auto 1.3 % (0-4.4); Hematocrit 38.9 % (37.0-47.0); Hemoglobin 12.7 g/dL (12.0-15.0); Immature Granulocyte Absolute 0.04 K/mm3 (0.00-0.031); Immature Granulocyte Percent A 0.4 % (0-0.5); Lymphocytes Absolute Auto 2.18 K/mm3 (0.9-3.2); Lymphocytes Percent Auto 21.6 % (18.3-44.2); Mean Corpuscular HGB Conc 32.6 g/dl (32-36); Mean Corpuscular Hemoglobin 28.4 pg (26-34); Mean Platelet Volume 10.3 fl (7.4-10.4); Monocytes Absolute Auto 0.5 K/mm3 (0.1-0.6); Monocytes Percent Auto 4.5 % (2.6-8.5); Neutrophils Absolute Auto 7.2 K/mm3 (1.3-6.7); Neutrophils Percent Auto 71.7 % (45.5-73.1); Platelet Count Result 228 k/mm3 (150-375); Red Blood Count 4.47 M/mm3 (4.2-5.4); Red Cell Distribution Width 13.2 % (11.5-14.5); White Blood Count 10.1 K/mm3 (4.5-10.0)
[2022-11-22 19:01] LABS: Creatinine Urine 154.7 mg/dL
[2022-11-22 19:46] LABS: Microalbumin Urine Random > 1140.0 mg/L (0-16.7)
== END 2022-11-22 16:57 | disposition home or self-care (01) ==
PROVIDERS: PCP Internal Medicine; Visit Provider Clinical Nurse Specialist
DX: R06.02 Shortness of breath (principal); R91.8 Other nonspecific abnormal finding of lung field
CPT/HCPCS: 36415; 71046; 80048; 82043; 83880; 84443; 85025

== ENCOUNTER 2023-01-10 08:06 | Outpatient (CLI) | payer BC, SELFPAY ==
[2023-01-10 18:41] LABS: Basophils Absolute Auto 0.1 K/mm3 (0.0-0.1); Basophils Percent Auto 0.8 % (0.2-1.2); Eosinophils Absolute Auto 0.2 K/mm3 (0-0.3); Eosinophils Percent Auto 2.1 % (0-4.4); Hematocrit 40.3 % (37.0-47.0); Hemoglobin 13.1 g/dL (12.0-15.0); Immature Granulocyte Absolute 0.03 K/mm3 (0.00-0.031); Immature Granulocyte Percent A 0.3 % (0-0.5); Lymphocytes Absolute Auto 2.23 K/mm3 (0.9-3.2); Lymphocytes Percent Auto 22.5 % (18.3-44.2); Mean Corpuscular HGB Conc 32.5 g/dl (32-36); Mean Corpuscular Hemoglobin 28.1 pg (26-34); Mean Corpuscular Volume 86.5 fl (80-100); Mean Platelet Volume 10.2 fl (7.4-10.4); Monocytes Absolute Auto 0.5 K/mm3 (0.1-0.6); Monocytes Percent Auto 4.5 % (2.6-8.5); Neutrophils Absolute Auto 6.9 K/mm3 (1.3-6.7); Neutrophils Percent Auto 69.8 % (45.5-73.1); Platelet Count Result 250 k/mm3 (150-375); Red Blood Count 4.66 M/mm3 (4.2-5.4); Red Cell Distribution Width 13.2 % (11.5-14.5); White Blood Count 9.9 K/mm3 (4.5-10.0)
[2023-01-10 19:02] LABS: Alanine Aminotransferase 24 U/L (6-35); Albumin Level 3.5 g/dL (3.5-5.1); Alkaline Phosphatase 145 U/L (38-126); Anion Gap 9 mmol/L (8-16); Aspartate Amino Transferase 30 U/L (14-36); Bilirubin,Total 0.5 mg/dL (0.2-1.3); Blood Urea Nitrogen 18 mg/dL (7-17); Calcium 9.7 mg/dL (8.4-10.2); Carbon Dioxide 28 mmol/L (22-30); Chloride 101 mmol/L (98-107); Estimated Glomerular Filt Rate 40; Glucose 166 mg/dL (65-110); Magnesium 1.7 mg/dL (1.6-2.3); Potassium 2.9 mmol/L (3.4-5.0); Sodium 138 mmol/L (137-145)
== END 2023-01-10 08:07 | disposition home or self-care (01) ==
LOC: ANHGOSHLAB 08:07
PROVIDERS: PCP Internal Medicine; Visit Provider Clinical Nurse Specialist
DX: E87.6 Hypokalemia (principal); E11.22 Type 2 diabetes mellitus with diabetic chronic kidney disease; I12.9 Hypertensive chronic kidney disease with stage 1 through stage 4 chronic kidney disease, or unspecified chronic kidney disease; N18.32 Chronic kidney disease, stage 3b
CPT/HCPCS: 36415; 80053; 83735; 84443; 85025

== ENCOUNTER 2023-01-10 08:32 | Outpatient (CLI) | payer BC, SELFPAY ==
--- NOTE | ~2023-01-10 | XR_ITS ---
EXAMINATION: XR chest 2V DATE: 01/10/2023 08:45 INDICATION: Cough and wheezing TECHNIQUE: PA and lateral views of the chest are obtained. COMPARISON: 11/22/2022 FINDINGS: The lungs are free of acute opacities. No pleural effusion or pneumothorax. The cardiomedia stinal silhouette is normal. There is mild thoracic spondylosis. IMPRESSION: 1. No acute cardiopulmonary abnormality. Reviewed, dictated and finalized at location L.
== END 2023-01-10 08:33 ==
PROVIDERS: PCP Clinical Nurse Specialist; Visit Provider Clinical Nurse Specialist
DX: R06.2 Wheezing (principal)
CPT/HCPCS: 71046

== ENCOUNTER 2023-03-21 19:27 | Inpatient (IN) | payer BC, SELFPAY ==
--- NOTE | ~2023-03-21 | MR_ITS ---
EXAMINATION: MR abdomen wo/w con DATE: 03/22/2023 08:47 INDICATION: Liver mass. Abdominal pain. TECHNIQUE: Magnetic resonance imaging (MRI) of the abdomen was performed without and with 20 mL Multi Azalia intravenous contrast. COMPARISON: CT abdomen and pelvis 03/21/2023, 06/06/2022 FINDINGS: There is diffuse hepatic steatosis, worst in multiple peripheral geographic areas. The gallbladder is absent. There is chronic mild splenomegaly, likely secondary to obesity. The pancreas, adrenal gland s, and kidneys are normal. There are no dilated loops of bowel. There is mild periportal lymphadenopa thy. There is no free intraperitoneal fluid. There is no significant stenosis of the celiac axis, sup erior mesenteric artery, renal arteries, or inferior mesenteric artery. IMPRESSION: 1. Heterogeneous hepatic steatosis correlating with the CT abnormality. 2. Mild periportal lymphadenopathy, likely reactive. Reviewed, dictated and finalized at location A.
--- NOTE | ~2023-03-21 | CT_ITS ---
EXAMINATION: CT abdomen pelvis w con DATE: 03/21/2023 20:59 INDICATION: abdominal pain TECHNIQUE: Computed tomography (CT) of the abdomen and pelvis was performed with 100 mL Omnipaque-350 intravenous contrast. Automated exposure control and iterative reconstruction technique were employe d. The dose-length product was 1630.05 mGy-cm. COMPARISON: 06/06/2022. FINDINGS: Lower thorax: Patchy areas of lower lobe groundglass opacity. Interlobular septal thickening. Mitral calcification Liver: The liver is enlarged. Multiple irregular areas of peripheral and it times geographic appearin g low densities in the liver parenchyma as well as approximately half of the caudate lobe. Biliary/Gallbladder: Gallbladder is absent. No bile duct dilation. Pancreas: Mild atrophy and fatty infiltration. Spleen: Normal. Adrenals:No mass. Kidneys: Punctate right midpole complication. No suspicious mass, obstructing stone, or hydronephrosi s. GI tract: No small or large bowel dilation. Normal appendix. Mild wall thickening in the sigmoid colo n and wall thickening/edema in the rectum, similar to the prior study. Mesentery/Peritoneum: No ascites, mass, or free air. Enlarged salvador hepatic lymph nodes. Retroperitoneum: No mass. Atherosclerotic abdominal aortic and/or arterial calcifications. Pelvis: Surgically absent uterus. Normal-appearing ovaries. Stable 11 mm right ovarian cyst. Mostly d ecompressed urinary bladder. Soft Tissues: Soft tissues and body wall unremarkable. Bones: No acute osseous finding. IMPRESSION: 1. Mild pulmonary edema. 2. Hepatomegaly with multiple new areas of parenchymal hypoenhancement/low densities may represent mu cinous or other metastatic lesions. Consider MR of the liver for further evaluation. 3. [place] hepatic lymphadenopathy. 4. Mild sigmoid and rectal wall thickening and edema, possibly representing chronic colitis. Reviewed, dictated and finalized at location K. IMPRESSION: 1. Mild pulmonary edema. 2. Hepatomegaly with multiple new areas of parenchymal hypoenhancement/low dens ities may represent mucinous or other metastatic lesions. Consider MR of the li jose for further evaluation. 3. Salvador hepatic lymphadenopathy. 4. Mild sigmoid and rectal wall thickening and edema, possibly representing chr onic colitis.
[2023-03-21 19:44] VITALS: BP 173/91; PULSE 95; RESP 18; TEMP 36.3; O2SAT 98
--- NOTE | 2023-03-21 19:48 | ECG_ITS ---
Measurements Intervals [place] Rate: 92 P: 62 SC: 176 QRS: -76 QRSD: 129 T: 101 QT: 419 QTc: 520 Interpretive Statements SINUS RHYTHM LEFT ATRIAL ENLARGEMENT [-0.15mV P WAVE IN V1/V2] POSSIBLE RIGHT VENTRICULAR CONDUCTION DELAY [RSR (QR) IN V1/V2] LEFT ANTERIOR FASCICULAR BLOCK [QRS AXIS <= -45, QR IN I, RS IN II] LEFT VENTRICULAR HYPERTROPHY AND ST-T CHANGE [VOLTAGE CRITERIA PLUS ST/T ABNORMALITY] ABNORMAL ECG COMPARED TO ECG 05/20/2022 16:02:20 NO SIGNIFICANT CHANGE Electronically Signed On 03-22-2023 13:19:19 CDT by Andrade Escobar M.D.
--- NOTE | 2023-03-21 20:09 | ECG_ITS ---
Measurements Intervals [place] Rate: 100 P: 69 [place]: 183 QRS: -75 QRSD: 130 T: 102 QT: 405 QTc: 522 Interpretive Statements SINUS TACHYCARDIA LEFT ATRIAL ENLARGEMENT [-0.15mV P WAVE IN V1/V2] LEFT ANTERIOR FASCICULAR BLOCK [QRS AXIS <= -45, QR IN I, RS IN II] LEFT VENTRICULAR HYPERTROPHY AND ST-T CHANGE [VOLTAGE CRITERIA PLUS ST/T ABNORMALITY] COMPARED TO ECG 03/21/2023 19:53:43 NO SIGNIFICANT CHANGE Electronically Signed On 03-22-2023 13:20:13 CDT by Andrade Escobar M.D.
[2023-03-21 20:12] LABS: Basophils Absolute Auto 0.1 K/mm3 (0.0-0.1); Basophils Percent Auto 0.5 % (0.2-1.2); Eosinophils Absolute Auto 0.1 K/mm3 (0-0.3); Eosinophils Percent Auto 1.3 % (0-4.4); Hematocrit 39.4 % (37.0-47.0); Hemoglobin 12.8 g/dL (12.0-15.0); Immature Granulocyte Absolute 0.06 K/mm3 (0.00-0.031); Immature Granulocyte Percent A 0.6 % (0-0.5); Lymphocytes Absolute Auto 2.21 K/mm3 (0.9-3.2); Lymphocytes Percent Auto 20.4 % (18.3-44.2); Mean Corpuscular HGB Conc 32.5 g/dl (32-36); Mean Corpuscular Hemoglobin 27.2 pg (26-34); Mean Corpuscular Volume 83.7 fl (80-100); Mean Platelet Volume 9.2 fl (7.4-10.4); Monocytes Absolute Auto 0.6 K/mm3 (0.1-0.6); Monocytes Percent Auto 5.4 % (2.6-8.5); Neutrophils Absolute Auto 7.8 K/mm3 (1.3-6.7); Neutrophils Percent Auto 71.8 % (45.5-73.1); Platelet Count Result 266 k/mm3 (150-375); Red Blood Count 4.71 M/mm3 (4.2-5.4); Red Cell Distribution Width 13.2 % (11.5-14.5); White Blood Count 10.8 K/mm3 (4.5-10.0)
[2023-03-21 20:32] LABS: Alanine Aminotransferase 23 U/L (6-35); Albumin Level 3.5 g/dL (3.5-5.1); Alkaline Phosphatase 133 U/L (38-126); Anion Gap 3 mmol/L (8-16); Aspartate Amino Transferase 27 U/L (14-36); Bilirubin,Total 0.5 mg/dL (0.2-1.3); Blood Urea Nitrogen 16 mg/dL (7-17); Calcium 9.3 mg/dL (8.4-10.2); Carbon Dioxide 32 mmol/L (22-30); Chloride 102 mmol/L (98-107); Estimated CRCL calculation 67 ml/min; Estimated Glomerular Filt Rate 44; Glucose 188 mg/dL (65-110); Lipase 82 U/L (23-300); Potassium 2.6 mmol/L (3.4-5.0); Sodium 137 mmol/L (137-145)
[2023-03-21 20:35] VITALS: BP 124/68; PULSE 88; RESP 18; O2SAT 98
[2023-03-21 20:45] LABS: Appearance Urine Clear (Clear); Bacteria Urine None Seen /hpf; Bilirubin Urine Negative (Negative); Blood Urine Trace (Negative); Color Urine Yellow (Yellow); Glucose Urine UA 1+ mg/dL (Negative); Ketones Urine Negative (Negative); Leukocyte Esterase Ur Negative LEU/UL (Negative); Need Manual Microscopic Reviewed; Nitrate Urine Negative (Negative); Protein Urine 4+ mg/dL (Negative); Specific Grav Ur 1.019 (1.001-1.035); Squamous Epithelial Cell Urine Occasional /hpf (Few); Urobilinogen Urine 0.2 mg/dL (<2.0); WBC Urine 0-5 /hpf
[2023-03-21 20:46] LABS: Add Urine Microscopic? YES
[2023-03-21 20:52] LABS: Magnesium 1.8 mg/dL (1.6-2.3)
[2023-03-21 21:04] LABS: Troponin I 0.023 ng/mL (0.000-0.034)
[2023-03-21] MEDS: MORPHINE SULFATE (*CRX) 4 MG/ML INJ IV PUSH (21:05)
[2023-03-21] MEDS: ONDANSETRON INJ 4 MG/2 ML VIAL IV PUSH (21:05)
[2023-03-21] MEDS: KCL 20 MEQ/SW 100 ML 100 ML 50 MEQ IVPB (21:06)
[2023-03-21] MEDS: SODIUM CHLORIDE 0.9% IV 1,000 ML 999 ML IV CONT (21:06)
[2023-03-21 21:08] VITALS: BP 132/78; PULSE 91; RESP 13; O2SAT 96
--- NOTE | 2023-03-21 21:17 | PC.NURSE ---
patient refusing another IV to run magnesium with potassium at this time. will run magnesium per order after potassium is infused.
--- NOTE | 2023-03-21 22:06 | ED.GENADULT ---
HPI - General Adult General Chief complaint: Nausea/Vomiting/Diarrhea Stated complaint: n/v/d Time Seen by Provider: 03/21/23 20:37 History of Present Illness HPI narrative: Is a 47-year-old female who presents the emergency department with chief complaint of abdominal pain nausea and vomiting. Patient reports that she has history of cyclic vomiting syndrome and reports that she ate some chicken nuggets yesterday that she believes were bad and started having nausea and vomiting today. The patient reports that she has cramping throughout her abdomen but does report that she has pain in the right lower quadrant. Patient reports she has prior history of issues with hypokalemia and usually has to require IV potassium replacement Related Data Home Medications Medication Instructions Recorded Confirmed acyclovir 400 mg tablet 400 mg PO BID 11/02/19 01/10/23 alprazolam 1 mg tablet 0.5 mg PO TID PRN Anxiety 11/02/19 01/10/23 docusate sodium 100 mg capsule 100 mg PO DAILY 11/02/19 01/10/23 (Colace) sertraline 100 mg tablet (Zoloft) 100 mg PO DAILY 11/02/19 01/10/23 zolpidem 10 mg tablet 10 mg PO QPM PRN Insomnia 11/02/19 01/10/23 prazosin 2 mg capsule (Minipress) 2 mg PO HS 07/03/20 01/10/23 insulin degludec 100 unit/mL 72 unit subcut HS 09/14/20 01/10/23 subcutaneous solution (Tresiba U-100 Insulin) insulin aspart U-100 100 unit/mL See Rx Instructions .Route .COMPLEX 03/14/21 01/10/23 subcutaneous solution (Novolog U-100 Insulin aspart) coenzyme Q10 100 mg capsule (Co 100 mg PO BID 10/03/21 01/10/23 Q-10) gabapentin 300 mg capsule 300 mg PO TID 11/19/21 01/10/23 diclofenac sodium 1 % topical gel 2 g topical QID PRN Pain 05/21/22 01/10/23 (Voltaren Arthritis Pain) prednisolone acetate 1 % eye 2 drp RIGHT EYE DAILY 05/21/22 01/10/23 drops,suspension trazodone 50 mg tablet 50 mg PO HS 05/21/22 01/10/23 Allergies Allergy/AdvReac Type Severity Reaction Status Date / Time latex Allergy Severe itching Verified 12/03/22 15:35 metoclopramide Allergy Severe Redness of Verified 12/03/22 15:35 Skin Review of Systems Review of Systems: A 10 system review of systems was completed on the patient and is negative except for what is stated in the HPI. Nursing and ancillary documentation was reviewed. [facility] Past Medical History Medical History Acute renal failure Anxiety Bacteremia Bronchitis Cyclic vomiting syndrome Depression Endometriosis Fatty liver Fibromyalgia Gastroesophageal reflux disease [facility] discharge follow-up Hyperlipidemia Hypertension Hypothyroidism Insulin dependent diabetes mellitus Irritable bowel syndrome Peptic ulcer Rheumatoid arthritis Sepsis Sleep apnea Traumatic hematoma of right knee Uterine fibroid Vitamin B 12 deficiency Surgical History Surgical History H/O eye surgery (~09/20/22) History of cholecystectomy History of detached retina repair History of hysterectomy History of laparoscopy Removal of uterine fibroids History of partial knee replacement Family History Family History Mother Diabetes mellitus Hypertension Family history of elevated blood lipids Sibling Family history of obesity Patient's sister is in good health Father Hypertension Family history of cardiovascular disease Other Acute myocardial infarction Family history of arthritis Family history of heart disease in male family member before age 55 Family history of thyroid disease Social History Social History Social History: Lives alone in [place]. with no children. No alcohol, tobacco, illicit substance abuse. Surrogate decision maker: Susan Ghoshzier, sister. Code status: Full code. Caffeine-daily Smoki
--- NOTE | 2023-03-21 22:18 | PM.IMHP ---
H&P: HPI History of Present Illness Date/Time: 03/21/23 22:18 Chief Complaint: n/v Narrative: EXAMINATION: CT abdomen pelvis w con DATE: 03/21/2023 20:59 INDICATION: abdominal pain TECHNIQUE: Computed tomography (CT) of the abdomen and pelvis was performed with 100 mL Omnipaque-350 intravenous contrast. Automated exposure control and iterative reconstruction technique were employed. The dose-length product was 1630.05 mGy-cm. COMPARISON: 06/06/2022. FINDINGS: Lower thorax: Patchy areas of lower lobe groundglass opacity. Interlobular septal thickening. Mitral calcification Liver: The liver is enlarged. Multiple irregular areas of peripheral and it times geographic appearing low densities in the liver parenchyma as well as approximately half of the caudate lobe.? Biliary/Gallbladder: Gallbladder is absent. No bile duct dilation. Pancreas: Mild atrophy and fatty infiltration. Spleen: Normal. Adrenals:No mass. Kidneys: Punctate right midpole complication. No suspicious mass, obstructing stone, or hydronephrosis. GI tract: No small or large bowel dilation. Normal appendix. Mild wall thickening in the sigmoid colon and wall thickening/edema in the rectum, similar to the prior study. Mesentery/Peritoneum: No ascites, mass, or free air. Enlarged salvador hepatic lymph nodes. Retroperitoneum: No mass. Atherosclerotic abdominal aortic and/or arterial calcifications. Pelvis: Surgically absent uterus. Normal-appearing ovaries. Stable 11 mm right ovarian cyst. Mostly decompressed urinary bladder. Soft Tissues: Soft tissues and body wall unremarkable. Bones:? No acute osseous finding. IMPRESSION: 1. Mild pulmonary edema. 2. Hepatomegaly with multiple new areas of parenchymal hypoenhancement/low densities may represent mucinous or other metastatic lesions. Consider MR of the liver for further evaluation. 3. Salvador hepatic lymphadenopathy. 4. Mild sigmoid and rectal wall thickening and edema, possibly representing chronic colitis. [facility] Past Medical History Medical History Acute renal failure Anxiety Bacteremia Bronchitis Cyclic vomiting syndrome Depression Endometriosis Fatty liver Fibromyalgia Gastroesophageal reflux disease [facility] discharge follow-up Hyperlipidemia Hypertension Hypothyroidism Insulin dependent diabetes mellitus Irritable bowel syndrome Peptic ulcer Rheumatoid arthritis Sepsis Sleep apnea Traumatic hematoma of right knee Uterine fibroid Vitamin B 12 deficiency Surgical History Surgical History H/O eye surgery (~09/20/22) History of cholecystectomy History of detached retina repair History of hysterectomy History of laparoscopy Removal of uterine fibroids History of partial knee replacement Family History Family History Mother Diabetes mellitus Hypertension Family history of elevated blood lipids Sibling Family history of obesity Patient's sister is in good health Father Hypertension Family history of cardiovascular disease Other Acute myocardial infarction Family history of arthritis Family history of heart disease in male family member before age 55 Family history of thyroid disease Social History Social History Social History: Lives alone in [place]. with no children. No alcohol, tobacco, illicit substance abuse. Surrogate decision maker: Susan Ghoshzier, sister. Code status: Full code. Caffeine-daily Smoking status: Never smoker Alcohol intake: current Alcohol use details: rarely Substance use: never Substance use type: does not use Lack of Transportation: No Lack of Food: Never True Current Housing: I Have Housing Concerned About Future Housing: No Difficulty Paying Gas/Electric Bills: No Difficult
[2023-03-21 22:35] VITALS: BP 148/86; PULSE 89; RESP 22; O2SAT 97
[2023-03-21] MEDS: MAGNESIUM SULF 1 GM/D5W 100 ML 1 GM/100 ML BAG IVPB (22:58)
[2023-03-22] VITALS (12 sets, daily range): BP systolic 142–171; BP diastolic 77–89; PULSE 80–95; RESP 16–20; TEMP 36.3–36.9; O2SAT 92–96; BMI 41.8
[2023-03-22 01:41] LABS: Troponin I 0.027 ng/mL (0.000-0.034)
[2023-03-22] MEDS: ZOLPIDEM TARTRATE (*CRX) 5 MG TABLET 10 MG PO (02:35)
[2023-03-22] MEDS: traZODone HCL 50 MG TABLET PO ×2 (02:35→21:39)
[2023-03-22] MEDS: SODIUM CHLORIDE 0.9% IV 1,000 ML 125 ML IV CONT ×2 (02:36→23:55)
[2023-03-22] MEDS: KCL 20 MEQ/SW 100 ML 100 ML 50 MEQ IVPB (02:36)
[2023-03-22] MEDS: ALPRAZolam (*CRX) 0.5 MG TABLET PO ×2 (02:36→21:45)
[2023-03-22] MEDS: diphenhydrAMINE HCl INJ 50 MG/ML VIAL IV PUSH (04:26)
[2023-03-22 05:51] LABS: Basophils Absolute Auto 0.1 K/mm3 (0.0-0.1); Basophils Percent Auto 0.6 % (0.2-1.2); Eosinophils Absolute Auto 0.2 K/mm3 (0-0.3); Eosinophils Percent Auto 1.7 % (0-4.4); Hematocrit 38.9 % (37.0-47.0); Hemoglobin 12.4 g/dL (12.0-15.0); Immature Granulocyte Absolute 0.06 K/mm3 (0.00-0.031); Immature Granulocyte Percent A 0.6 % (0-0.5); Lymphocytes Absolute Auto 2.47 K/mm3 (0.9-3.2); Lymphocytes Percent Auto 22.7 % (18.3-44.2); Mean Corpuscular HGB Conc 31.9 g/dl (32-36); Mean Corpuscular Hemoglobin 27.6 pg (26-34); Mean Corpuscular Volume 86.4 fl (80-100); Mean Platelet Volume 9.6 fl (7.4-10.4); Monocytes Absolute Auto 0.6 K/mm3 (0.1-0.6); Monocytes Percent Auto 5.9 % (2.6-8.5); Neutrophils Absolute Auto 7.5 K/mm3 (1.3-6.7); Neutrophils Percent Auto 68.5 % (45.5-73.1); Platelet Count Result 252 k/mm3 (150-375); Red Cell Distribution Width 13.3 % (11.5-14.5); White Blood Count 10.9 K/mm3 (4.5-10.0)
[2023-03-22 06:11] LABS: Anion Gap 5 mmol/L (8-16); Blood Urea Nitrogen 14 mg/dL (7-17); Calcium 8.8 mg/dL (8.4-10.2); Carbon Dioxide 26 mmol/L (22-30); Chloride 102 mmol/L (98-107); Estimated CRCL calculation 71 ml/min; Estimated Glomerular Filt Rate 48; Glucose 240 mg/dL (65-110); Potassium 2.7 mmol/L (3.4-5.0); Sodium 133 mmol/L (137-145)
[2023-03-22] MEDS: INSULIN GLARGINE (*BKC) 100 UNITS/ML 38 UNITS SUB-Q ×2 (09:20→17:09)
[2023-03-22] MEDS: INSULIN ASPART (*BKC) 100 UNITS/ML SUB-Q ×3 (09:21→17:11)
[2023-03-22] MEDS: amLODIPine BESYLATE 5 MG TABLET PO (09:25)
[2023-03-22] MEDS: ACYCLOVIR 400 MG TABLET PO ×2 (09:25→17:09)
[2023-03-22] MEDS: SERTRALINE HCL 50 MG TABLET 100 MG PO (09:25)
[2023-03-22] MEDS: GABAPENTIN 300 MG CAPSULE PO ×3 (09:27→17:09)
[2023-03-22] MEDS: SILVERGEL (ELTA) 45 ML 1 APPLIC TOPICAL (09:27)
[2023-03-22] MEDS: PANTOPRAZOLE 40 MG TABLET PO (09:27)
[2023-03-22] MEDS: DOCUSATE SODIUM 100 MG CAPSULE PO (09:27)
[2023-03-22] MEDS: METOPROLOL SUCCINATE EXT REL 50 MG TABCR PO (09:29)
[2023-03-22 09:49] LABS: Glucose Point of Care 304 mg/dl (65-105)
[2023-03-22 12:37] LABS: Glucose Point of Care 277 mg/dl (65-105)
[2023-03-22 13:41] LABS: Alanine Aminotransferase 21 U/L (6-35); Albumin Level 3.5 g/dL (3.5-5.1); Alkaline Phosphatase 137 U/L (38-126); Anion Gap 6 mmol/L (8-16); Aspartate Amino Transferase 34 U/L (14-36); Bilirubin,Total 0.5 mg/dL (0.2-1.3); Blood Urea Nitrogen 15 mg/dL (7-17); Calcium 9.1 mg/dL (8.4-10.2); Carbon Dioxide 23 mmol/L (22-30); Chloride 104 mmol/L (98-107); Estimated CRCL calculation 71 ml/min; Estimated Glomerular Filt Rate 48; Glucose 234 mg/dL (65-110); Magnesium 2.1 mg/dL (1.6-2.3); Sodium 133 mmol/L (137-145)
[2023-03-22 14:25] LABS: Alanine Aminotransferase 24 U/L (6-35); Albumin Level 3.6 g/dL (3.5-5.1); Alkaline Phosphatase 138 U/L (38-126); Anion Gap 5 mmol/L (8-16); Aspartate Amino Transferase 32 U/L (14-36); Bilirubin,Total 0.5 mg/dL (0.2-1.3); Blood Urea Nitrogen 14 mg/dL (7-17); Calcium 9.2 mg/dL (8.4-10.2); Carbon Dioxide 32 mmol/L (22-30); Chloride 98 mmol/L (98-107); Estimated CRCL calculation 58 ml/min; Estimated Glomerular Filt Rate 37; Glucose 339 mg/dL (65-110); Sodium 135 mmol/L (137-145)
--- NOTE | 2023-03-22 16:34 | PM.IMPN ---
Progress Note: A&P Assessment and Plan (1) Nausea and vomiting: Code(s): R11.2 - Nausea with vomiting, unspecified Status: Acute Assessment and Plan: Likely 2/2 CVS, cont supportive care (2) Acute hypokalemia: Code(s): E87.6 - Hypokalemia Status: Acute Assessment and Plan: Replace as needed (3) Hypomagnesemia: Code(s): E83.42 - Hypomagnesemia Status: Acute Assessment and Plan: Received a magnesium rider in emergency room D/c custodial PPI in favor of H2 sonja as this could be causing low mag and low potassium issues recurrently (4) Benign hypertension with chronic kidney disease: Code(s): I12.9 - Hypertensive chronic kidney disease with stage 1 through stage 4 chronic kidney disease, or unspecified chronic kidney disease Status: Acute Assessment and Plan: Continue to monitor BUN and creatinine Appears to be patient's baseline (5) Diabetes mellitus with chronic kidney disease: Code(s): E11.22 - Type 2 diabetes mellitus with diabetic chronic kidney disease Status: Acute Assessment and Plan: Continue to monitor Accuchecks plus SSI A1c pending (6) Insulin dependent diabetes mellitus: Status: Acute Assessment and Plan: Continue insulin Accu-Cheks AC and HS 1800 calorie restricted diet carb consistent (7) Fatty liver: Code(s): K76.0 - Fatty (change of) liver, not elsewhere classified Status: Acute Assessment and Plan: Follow-up in outpatient setting (8) Obesity, Class III, BMI 40-49.9 (morbid obesity): Code(s): E66.01 - Morbid (severe) obesity due to excess calories Status: Acute Assessment and Plan: Lifestyle and diet modifications (9) Diarrhea: Code(s): R19.7 - Diarrhea, unspecified Status: Acute Assessment and Plan: Supportive care (10) Toe ulcer: Qualifiers: Laterality: right Non-pressure ulcer stage: unspecified non-pressure ulcer stage Qualified Code(s): L97.519 - Non-pressure chronic ulcer of other part of right foot with unspecified severity Code(s): L97.509 - Non-pressure chronic ulcer of other part of unspecified foot with unspecified severity Status: Acute Assessment and Plan: Stable Wound care consult Local care Plan DVT prophylaxis with SCDs GI prophylaxis not indicated Code status full code Subjective Date/time seen: 03/22/23 16:34 Interval history: No overnight events noted. No chest pain or shortness of breath. Improving nausea, no emesis or diarrhea today. No fevers or chills. Review of Systems Review of Systems: 12 point review of systems was assessed and was negative except as noted in the HPI Exam Narrative: General: No acute distress, alert and oriented per baseline HEENT: Atraumatic, normocephalic, mucous membranes moist CV: Regular rate and rhythm, S1, S2 Lungs: Clear to auscultation bilaterally, no rales or crackles noted, no wheezes, good air entry Abdomen: Soft, nontender, nondistended Extremities: Normal to inspection Skin: No rashes noted, no lesions or wounds seen Psych: Euthymic, normal affect Objective Data Vital Signs Vital Signs: Vital Signs - 24 hr 03/21/23 19:44 03/21/23 20:35 03/21/23 21:08 Temperature 97.3 F L Pulse Rate 95 88 91 Respiratory Rate 18 18 13 Blood Pressure 173/91 H 124/68 132/78 Pulse Oximetry 98 98 96 Oxygen Delivery Room Air 03/21/23 22:35 03/22/23 01:00 03/22/23 00:00 Temperature 97.8 F Pulse Rate 89 95 95 Respiratory Rate 22 H 18 18 Blood Pressure 148/86 H 161/81 H Pulse Oximetry 97 93 93 Oxygen Delivery Room Air 03/22/23 00:00 03/22/23 04:00 03/22/23 04:16 Temperature 97.3 F L Pulse Rate 88 92 89 Respiratory Rate 20 Blood Pressure 165/83 H Pulse Oximetry 94 Oxygen Delivery 03/22/23 09:29 03/22/23 09:25 03/22/23 12:00 Temperature
[2023-03-22 17:09] LABS: Glucose Point of Care 398 mg/dl (65-105)
[2023-03-22] MEDS: PRAZOSIN HCL 1 MG CAPSULE 2 MG PO (20:27)
[2023-03-22] MEDS: FAMOTIDINE 20 MG/2 ML VIAL IV PUSH (20:27)
[2023-03-22 20:59] LABS: Glucose Point of Care 404 mg/dl (65-105)
[2023-03-22] MEDS: INSULIN ASPART (*BKC) 100 UNITS/ML 6 UNITS SUB-Q (21:17)
[2023-03-22] MEDS: AMITRIPTYLINE HCL 25 MG TABLET 75 MG PO (21:39)
[2023-03-22 22:34] LABS: Glucose Point of Care 440 mg/dl (65-105)
--- NOTE | 2023-03-22 22:36 | PC.NURSE ---
Nuclear Medical Tech contacted hospitalist, Pam, about BS of 404 . Hospitalist ordered Novolog 6U. Nuclear Medical Tech re-checked BS at 2230 and was reported to be 440. Nuclear Medical Tech contacted Pam via phone to report results. Verbal Order to continue to monitor and recheck BS in two hours.
[2023-03-23] VITALS (10 sets, daily range): BP systolic 155–158; BP diastolic 84–88; PULSE 77–113; RESP 16–20; TEMP 36.4–36.7; O2SAT 93–98
[2023-03-23 05:53] LABS: Glucose Point of Care 236 mg/dl (65-105)
[2023-03-23 06:06] LABS: Basophils Percent Auto 0.5 % (0.2-1.2); Eosinophils Absolute Auto 0.2 K/mm3 (0-0.3); Eosinophils Percent Auto 2.4 % (0-4.4); Hematocrit 37.8 % (37.0-47.0); Hemoglobin 11.9 g/dL (12.0-15.0); Immature Granulocyte Absolute 0.04 K/mm3 (0.00-0.031); Immature Granulocyte Percent A 0.5 % (0-0.5); Lymphocytes Absolute Auto 1.74 K/mm3 (0.9-3.2); Lymphocytes Percent Auto 21.7 % (18.3-44.2); Mean Corpuscular HGB Conc 31.5 g/dl (32-36); Mean Corpuscular Hemoglobin 26.9 pg (26-34); Mean Corpuscular Volume 85.5 fl (80-100); Mean Platelet Volume 9.6 fl (7.4-10.4); Monocytes Absolute Auto 0.4 K/mm3 (0.1-0.6); Monocytes Percent Auto 5.4 % (2.6-8.5); Neutrophils Absolute Auto 5.6 K/mm3 (1.3-6.7); Neutrophils Percent Auto 69.5 % (45.5-73.1); Platelet Count Result 234 k/mm3 (150-375); Red Blood Count 4.42 M/mm3 (4.2-5.4); Red Cell Distribution Width 13.3 % (11.5-14.5)
[2023-03-23 06:20] LABS: Alanine Aminotransferase 21 U/L (6-35); Albumin Level 3.3 g/dL (3.5-5.1); Alkaline Phosphatase 123 U/L (38-126); Anion Gap 4 mmol/L (8-16); Aspartate Amino Transferase 25 U/L (14-36); Bilirubin,Total 0.4 mg/dL (0.2-1.3); Blood Urea Nitrogen 16 mg/dL (7-17); Calcium 9.4 mg/dL (8.4-10.2); Carbon Dioxide 31 mmol/L (22-30); Chloride 102 mmol/L (98-107); Estimated CRCL calculation 58 ml/min; Estimated Glomerular Filt Rate 37; Glucose 241 mg/dL (65-110); Potassium 3.1 mmol/L (3.4-5.0); Sodium 137 mmol/L (137-145)
[2023-03-23 07:01] LABS: Hemoglobin A1C 10.8 % (<5.7)
[2023-03-23 08:15] LABS: Glucose Point of Care 257 mg/dl (65-105)
[2023-03-23] MEDS: INSULIN ASPART (*BKC) 100 UNITS/ML SUB-Q ×6 (08:22→20:40)
[2023-03-23] MEDS: INSULIN GLARGINE (*BKC) 100 UNITS/ML 38 UNITS SUB-Q ×2 (08:23→20:39)
[2023-03-23] MEDS: DOCUSATE SODIUM 100 MG CAPSULE PO (08:27)
[2023-03-23] MEDS: METOPROLOL SUCCINATE EXT REL 50 MG TABCR PO (08:27)
[2023-03-23] MEDS: ACYCLOVIR 400 MG TABLET PO ×2 (08:27→17:24)
[2023-03-23] MEDS: SERTRALINE HCL 50 MG TABLET 100 MG PO (08:28)
[2023-03-23] MEDS: amLODIPine BESYLATE 5 MG TABLET PO (08:28)
[2023-03-23] MEDS: GABAPENTIN 300 MG CAPSULE PO ×3 (08:28→17:23)
[2023-03-23] MEDS: FAMOTIDINE 20 MG/2 ML VIAL IV PUSH ×2 (08:29→20:39)
[2023-03-23] MEDS: SILVERGEL (ELTA) 45 ML 1 APPLIC TOPICAL (08:31)
[2023-03-23] MEDS: ONDANSETRON INJ 4 MG/2 ML VIAL IV PUSH (08:38)
--- NOTE | 2023-03-23 10:04 | PM.IMPN ---
Progress Note: A&P Assessment and Plan (1) LUKE (acute kidney injury): Code(s): N17.9 - Acute kidney failure, unspecified Status: Acute Assessment and Plan: cont IVF, monitor (2) Nausea and vomiting: Code(s): R11.2 - Nausea with vomiting, unspecified Status: Acute Assessment and Plan: Likely 2/2 CVS, cont supportive care (3) Acute hypokalemia: Code(s): E87.6 - Hypokalemia Status: Acute Assessment and Plan: Replace as needed (4) Hypomagnesemia: Code(s): E83.42 - Hypomagnesemia Status: Acute Assessment and Plan: Received a magnesium rider in emergency room D/c [facility] PPI in favor of H2 sonja as this could be causing low mag and low potassium issues recurrently (5) Benign hypertension with chronic kidney disease: Code(s): I12.9 - Hypertensive chronic kidney disease with stage 1 through stage 4 chronic kidney disease, or unspecified chronic kidney disease Status: Acute Assessment and Plan: Continue to monitor BUN and creatinine Appears to be patient's baseline (6) Insulin dependent diabetes mellitus: Status: Acute Assessment and Plan: Continue insulin, a1c 10.8 Accu-Cheks AC and HS 1800 calorie restricted diet carb consistent (7) Obesity, Class III, BMI 40-49.9 (morbid obesity): Code(s): E66.01 - Morbid (severe) obesity due to excess calories Status: Acute Assessment and Plan: Lifestyle and diet modifications (8) Diarrhea: Code(s): R19.7 - Diarrhea, unspecified Status: Acute Assessment and Plan: Supportive care (9) Toe ulcer: Qualifiers: Laterality: right Non-pressure ulcer stage: unspecified non-pressure ulcer stage Qualified Code(s): L97.519 - Non-pressure chronic ulcer of other part of right foot with unspecified severity Code(s): L97.509 - Non-pressure chronic ulcer of other part of unspecified foot with unspecified severity Status: Acute Assessment and Plan: Stable Wound care consult Local care (10) BREEN (nonalcoholic steatohepatitis): Code(s): K75.81 - Nonalcoholic steatohepatitis (BREEN) Status: Acute Plan DVT prophylaxis with SCDs GI prophylaxis not indicated Code status full code Subjective Date/time seen: 03/23/23 10:04 Interval history: No overnight events noted. No chest pain or shortness of breath. Improving nausea, no emesis or diarrhea today. No fevers or chills. Still feels quite weak and difficulty with po intake. Review of Systems Review of Systems: 12 point review of systems was assessed and was negative except as noted in the HPI Exam Narrative: General: No acute distress, alert and oriented per baseline HEENT: Atraumatic, normocephalic, mucous membranes moist CV: Regular rate and rhythm, S1, S2 Lungs: Clear to auscultation bilaterally, no rales or crackles noted, no wheezes, good air entry Abdomen: Soft, nontender, nondistended Extremities: Normal to inspection Skin: No rashes noted, no lesions or wounds seen Psych: Euthymic, normal affect Objective Data Vital Signs Vital Signs: Vital Signs - 24 hr 03/22/23 12:00 03/22/23 14:00 03/22/23 16:00 Temperature 97.8 F Pulse Rate 92 87 80 Respiratory Rate 16 Blood Pressure 142/77 H Pulse Oximetry 92 Oxygen Delivery 03/22/23 21:17 03/22/23 20:00 03/23/23 00:00 Temperature 98.4 F Pulse Rate 82 80 78 Respiratory Rate 16 Blood Pressure 171/89 H Pulse Oximetry 96 Oxygen Delivery 03/23/23 04:00 03/22/23 20:25 03/23/23 06:00 Temperature 97.6 F Pulse Rate 96 91 Respiratory Rate 16 Blood Pressure 155/88 H Pulse Oximetry 96 94 Oxygen Delivery Room Air 03/23/23 08:27 03/23/23 08:20 03/23/23 08:20 Temperature Pulse Rate 113 H 107 H Respiratory Rate Blood Pressure Pulse Oximetry Oxygen Delivery Room Air I
[2023-03-23] MEDS: SODIUM CHLORIDE 0.9% IV 1,000 ML 999 ML IV CONT (10:48)
[2023-03-23 12:25] LABS: Glucose Point of Care 311 mg/dl (65-105)
[2023-03-23 17:00] LABS: Glucose Point of Care 205 mg/dl (65-105)
[2023-03-23] MEDS: POTASSIUM CHLORIDE 20 MEQ ER TABLET 40 MEQ PO (17:20)
[2023-03-23] MEDS: POTASSIUM CHLORIDE INJ 40 MEQ in SODIUM CHLORIDE 0.9% IV 500 ML 130 MEQ IVPB (17:30)
[2023-03-23 17:45] LABS: Anion Gap 5 mmol/L (8-16); Blood Urea Nitrogen 15 mg/dL (7-17); Calcium 9.2 mg/dL (8.4-10.2); Carbon Dioxide 31 mmol/L (22-30); Chloride 103 mmol/L (98-107); Estimated CRCL calculation 62 ml/min; Estimated Glomerular Filt Rate 40; Glucose 234 mg/dL (65-110); Potassium 3.1 mmol/L (3.4-5.0); Sodium 139 mmol/L (137-145)
[2023-03-23 20:35] LABS: Glucose Point of Care 334 mg/dl (65-105)
[2023-03-23] MEDS: PRAZOSIN HCL 1 MG CAPSULE 2 MG PO (20:39)
[2023-03-23] MEDS: AMITRIPTYLINE HCL 25 MG TABLET 75 MG PO (20:51)
[2023-03-23] MEDS: traZODone HCL 50 MG TABLET PO (20:51)
[2023-03-23] MEDS: ALPRAZolam (*CRX) 0.5 MG TABLET PO (22:14)
[2023-03-23] MEDS: SODIUM CHLORIDE 0.9% IV 1,000 ML 125 ML IV CONT (23:05)
[2023-03-24] VITALS (10 sets, daily range): BP systolic 164–168; BP diastolic 84–90; PULSE 76–99; RESP 18–20; TEMP 36.5–36.8; O2SAT 90–93
[2023-03-24 05:38] LABS: Basophils Percent Auto 0.5 % (0.2-1.2); Eosinophils Absolute Auto 0.2 K/mm3 (0-0.3); Eosinophils Percent Auto 2.5 % (0-4.4); Hematocrit 36.2 % (37.0-47.0); Hemoglobin 11.5 g/dL (12.0-15.0); Immature Granulocyte Absolute 0.05 K/mm3 (0.00-0.031); Immature Granulocyte Percent A 0.6 % (0-0.5); Lymphocytes Absolute Auto 2.04 K/mm3 (0.9-3.2); Lymphocytes Percent Auto 25.3 % (18.3-44.2); Mean Corpuscular HGB Conc 31.8 g/dl (32-36); Mean Corpuscular Hemoglobin 27.5 pg (26-34); Mean Corpuscular Volume 86.6 fl (80-100); Mean Platelet Volume 9.6 fl (7.4-10.4); Monocytes Absolute Auto 0.5 K/mm3 (0.1-0.6); Monocytes Percent Auto 5.6 % (2.6-8.5); Neutrophils Absolute Auto 5.3 K/mm3 (1.3-6.7); Neutrophils Percent Auto 65.5 % (45.5-73.1); Platelet Count Result 232 k/mm3 (150-375); Red Blood Count 4.18 M/mm3 (4.2-5.4); Red Cell Distribution Width 13.3 % (11.5-14.5); White Blood Count 8.1 K/mm3 (4.5-10.0)
[2023-03-24 06:05] LABS: Alanine Aminotransferase 24 U/L (6-35); Albumin Level 3.3 g/dL (3.5-5.1); Alkaline Phosphatase 122 U/L (38-126); Anion Gap 3 mmol/L (8-16); Aspartate Amino Transferase 30 U/L (14-36); Bilirubin,Total 0.4 mg/dL (0.2-1.3); Blood Urea Nitrogen 12 mg/dL (7-17); Calcium 8.9 mg/dL (8.4-10.2); Carbon Dioxide 29 mmol/L (22-30); Chloride 107 mmol/L (98-107); Estimated CRCL calculation 71 ml/min; Estimated Glomerular Filt Rate 48; Glucose 192 mg/dL (65-110); Magnesium 1.9 mg/dL (1.6-2.3); Potassium 3.1 mmol/L (3.4-5.0); Sodium 139 mmol/L (137-145)
[2023-03-24 08:42] LABS: Glucose Point of Care 191 mg/dl (65-105)
[2023-03-24] MEDS: INSULIN ASPART (*BKC) 100 UNITS/ML SUB-Q ×4 (08:51→17:40)
[2023-03-24] MEDS: INSULIN GLARGINE (*BKC) 100 UNITS/ML 38 UNITS SUB-Q ×2 (08:52→21:20)
[2023-03-24] MEDS: amLODIPine BESYLATE 5 MG TABLET PO (08:58)
[2023-03-24] MEDS: ACYCLOVIR 400 MG TABLET PO ×2 (08:58→17:39)
[2023-03-24] MEDS: DOCUSATE SODIUM 100 MG CAPSULE PO (08:58)
[2023-03-24] MEDS: SERTRALINE HCL 50 MG TABLET 100 MG PO (08:58)
[2023-03-24] MEDS: GABAPENTIN 300 MG CAPSULE PO ×3 (08:58→17:38)
[2023-03-24] MEDS: ERGOCALCIFEROL 50,000 UNITS CAPSULE 50000 UNITS PO (08:58)
[2023-03-24] MEDS: METOPROLOL SUCCINATE EXT REL 50 MG TABCR PO (08:59)
[2023-03-24] MEDS: FAMOTIDINE 20 MG/2 ML VIAL IV PUSH ×2 (08:59→21:20)
[2023-03-24] MEDS: SILVERGEL (ELTA) 45 ML 1 APPLIC TOPICAL (09:00)
[2023-03-24] MEDS: POTASSIUM CHLORIDE INJ 40 MEQ in SODIUM CHLORIDE 0.9% IV 500 ML 130 MEQ IVPB (11:27)
[2023-03-24] MEDS: POTASSIUM CHLORIDE 20 MEQ ER TABLET 40 MEQ PO (11:27)
[2023-03-24 11:35] LABS: Glucose Point of Care 197 mg/dl (65-105)
[2023-03-24] MEDS: ACETAMINOPHEN 500 MG TABLET 1000 MG PO ×2 (12:19→23:18)
[2023-03-24 17:06] LABS: Anion Gap 2 mmol/L (8-16); Blood Urea Nitrogen 13 mg/dL (7-17); Calcium 8.8 mg/dL (8.4-10.2); Carbon Dioxide 27 mmol/L (22-30); Chloride 105 mmol/L (98-107); Estimated CRCL calculation 71 ml/min; Estimated Glomerular Filt Rate 48; Glucose 314 mg/dL (65-110); Potassium 3.4 mmol/L (3.4-5.0); Sodium 134 mmol/L (137-145)
[2023-03-24 17:07] LABS: Glucose Point of Care 303 mg/dl (65-105)
--- NOTE | 2023-03-24 17:45 | PM.IMPN ---
Progress Note: A&P Assessment and Plan (1) LUKE (acute kidney injury): Code(s): N17.9 - Acute kidney failure, unspecified Status: Acute Assessment and Plan: cont IVF, monitor Improving (2) Nausea and vomiting: Code(s): R11.2 - Nausea with vomiting, unspecified Status: Acute Assessment and Plan: Likely 2/2 CVS, cont supportive care Resolved (3) Acute hypokalemia: Code(s): E87.6 - Hypokalemia Status: Acute Assessment and Plan: Replace as needed, still low (4) Hypomagnesemia: Code(s): E83.42 - Hypomagnesemia Status: Acute Assessment and Plan: Received a magnesium rider in emergency room D/c shelter PPI in favor of H2 sonja as this could be causing low mag and low potassium issues recurrently (5) Benign hypertension with chronic kidney disease: Code(s): I12.9 - Hypertensive chronic kidney disease with stage 1 through stage 4 chronic kidney disease, or unspecified chronic kidney disease Status: Acute Assessment and Plan: Continue to monitor BUN and creatinine Appears to be patient's baseline (6) Insulin dependent diabetes mellitus: Status: Acute Assessment and Plan: Continue insulin, a1c 10.8 Accu-Cheks AC and HS 1800 calorie restricted diet carb consistent (7) Obesity, Class III, BMI 40-49.9 (morbid obesity): Code(s): E66.01 - Morbid (severe) obesity due to excess calories Status: Acute Assessment and Plan: Lifestyle and diet modifications (8) Diarrhea: Code(s): R19.7 - Diarrhea, unspecified Status: Acute Assessment and Plan: Supportive care (9) Toe ulcer: Qualifiers: Laterality: right Non-pressure ulcer stage: unspecified non-pressure ulcer stage Qualified Code(s): L97.519 - Non-pressure chronic ulcer of other part of right foot with unspecified severity Code(s): L97.509 - Non-pressure chronic ulcer of other part of unspecified foot with unspecified severity Status: Acute Assessment and Plan: Stable Wound care consult Local care (10) BREEN (nonalcoholic steatohepatitis): Code(s): K75.81 - Nonalcoholic steatohepatitis (BREEN) Status: Acute Plan DVT prophylaxis with SCDs GI prophylaxis not indicated Code status full code Subjective Date/time seen: 03/24/23 17:45 Interval history: No overnight events noted. No chest pain or shortness of breath. Improving nausea, no emesis or diarrhea today. No fevers or chills. Feels about the same as yesterday. Exam Narrative: General: No acute distress, alert and oriented per baseline HEENT: Atraumatic, normocephalic, mucous membranes moist CV: Regular rate and rhythm, S1, S2 Lungs: Clear to auscultation bilaterally, no rales or crackles noted, no wheezes, good air entry Abdomen: Soft, nontender, nondistended Extremities: Normal to inspection Skin: No rashes noted, no lesions or wounds seen Psych: Euthymic, normal affect Objective Data Vital Signs Vital Signs: Vital Signs - 24 hr 03/23/23 19:52 03/23/23 20:00 03/24/23 00:00 Temperature 98.1 F Pulse Rate 77 81 83 Respiratory Rate 20 Blood Pressure 158/87 H Pulse Oximetry 98 Oxygen Delivery 03/24/23 04:00 03/24/23 05:19 03/24/23 08:59 Temperature 98.2 F Pulse Rate 96 93 90 Respiratory Rate 20 Blood Pressure 164/84 H Pulse Oximetry 90 Oxygen Delivery 03/24/23 14:00 03/24/23 08:30 03/24/23 08:00 Temperature 97.7 F Pulse Rate 97 97 99 Respiratory Rate 18 18 Blood Pressure 168/90 H Pulse Oximetry 93 93 Oxygen Delivery Room Air 03/24/23 12:00 03/24/23 16:00 Temperature Pulse Rate 88 76 Respiratory Rate Blood Pressure Pulse Oximetry Oxygen Delivery Intake/Output Intake/Output: Intake & Output 03/21/23 03/22/23 03/23/23 03/24/23 23:59 23:59 23:59 23:59 Intake Total 200 2500 3220 1580
[2023-03-24] MEDS: PRAZOSIN HCL 1 MG CAPSULE 2 MG PO (21:19)
[2023-03-24] MEDS: AMITRIPTYLINE HCL 25 MG TABLET 75 MG PO (21:19)
[2023-03-24] MEDS: ALPRAZolam (*CRX) 0.5 MG TABLET PO (21:20)
[2023-03-24] MEDS: traZODone HCL 50 MG TABLET PO (21:20)
[2023-03-24 21:35] LABS: Glucose Point of Care 165 mg/dl (65-105)
[2023-03-24] MEDS: KETOROLAC 15 MG/ML VIAL (*BKC) IV PUSH (22:27)
[2023-03-24] MEDS: hydrALAZINE HCL 20 MG/ML VIAL 10 MG IV PUSH (23:18)
[2023-03-25] VITALS (8 sets, daily range): BP systolic 148–182; BP diastolic 83–98; PULSE 79–95; RESP 14–20; TEMP 36.3–36.8; O2SAT 96–99
[2023-03-25] MEDS: ACETAMINOPHEN 500 MG TABLET 1000 MG PO ×2 (05:15→13:00)
[2023-03-25 06:25] LABS: Basophils Percent Auto 0.5 % (0.2-1.2); Eosinophils Absolute Auto 0.2 K/mm3 (0-0.3); Eosinophils Percent Auto 2.6 % (0-4.4); Hematocrit 36.6 % (37.0-47.0); Hemoglobin 11.7 g/dL (12.0-15.0); Immature Granulocyte Absolute 0.05 K/mm3 (0.00-0.031); Immature Granulocyte Percent A 0.7 % (0-0.5); Lymphocytes Absolute Auto 1.91 K/mm3 (0.9-3.2); Lymphocytes Percent Auto 25.7 % (18.3-44.2); Mean Corpuscular Hemoglobin 27.5 pg (26-34); Mean Corpuscular Volume 86.1 fl (80-100); Mean Platelet Volume 9.4 fl (7.4-10.4); Monocytes Absolute Auto 0.4 K/mm3 (0.1-0.6); Monocytes Percent Auto 5.5 % (2.6-8.5); Neutrophils Absolute Auto 4.8 K/mm3 (1.3-6.7); Platelet Count Result 228 k/mm3 (150-375); Red Blood Count 4.25 M/mm3 (4.2-5.4); Red Cell Distribution Width 13.5 % (11.5-14.5); White Blood Count 7.4 K/mm3 (4.5-10.0)
[2023-03-25 06:44] LABS: Alanine Aminotransferase 30 U/L (6-35); Albumin Level 3.3 g/dL (3.5-5.1); Alkaline Phosphatase 110 U/L (38-126); Anion Gap 2 mmol/L (8-16); Aspartate Amino Transferase 37 U/L (14-36); Bilirubin,Total 0.6 mg/dL (0.2-1.3); Blood Urea Nitrogen 11 mg/dL (7-17); Calcium 8.9 mg/dL (8.4-10.2); Carbon Dioxide 31 mmol/L (22-30); Chloride 106 mmol/L (98-107); Estimated CRCL calculation 77 ml/min; Estimated Glomerular Filt Rate 53; Glucose 182 mg/dL (65-110); Magnesium 1.8 mg/dL (1.6-2.3); Potassium 3.3 mmol/L (3.4-5.0); Sodium 139 mmol/L (137-145)
[2023-03-25 08:16] LABS: Glucose Point of Care 184 mg/dl (65-105)
[2023-03-25] MEDS: INSULIN GLARGINE (*BKC) 100 UNITS/ML 38 UNITS SUB-Q (08:41)
[2023-03-25] MEDS: INSULIN ASPART (*BKC) 100 UNITS/ML SUB-Q ×3 (08:41→17:30)
[2023-03-25] MEDS: METOPROLOL SUCCINATE EXT REL 50 MG TABCR PO (08:51)
[2023-03-25] MEDS: DOCUSATE SODIUM 100 MG CAPSULE PO (08:52)
[2023-03-25] MEDS: GABAPENTIN 300 MG CAPSULE PO ×3 (08:52→17:33)
[2023-03-25] MEDS: ACYCLOVIR 400 MG TABLET PO ×2 (08:53→17:33)
[2023-03-25] MEDS: SERTRALINE HCL 50 MG TABLET 100 MG PO (08:53)
[2023-03-25] MEDS: amLODIPine BESYLATE 5 MG TABLET PO (08:53)
[2023-03-25] MEDS: FAMOTIDINE 20 MG/2 ML VIAL IV PUSH (08:53)
[2023-03-25] MEDS: SILVERGEL (ELTA) 45 ML 1 APPLIC TOPICAL (08:53)
--- NOTE | 2023-03-25 09:58 | PM.DS ---
DS: Admitting Diagnosis Discharge Date 03/25/23 Admitting Diagnosis weakness, nausea, vomiting DS: Discharge Diagnosis Discharge Diagnosis (1) LUKE (acute kidney injury): Code(s): N17.9 - Acute kidney failure, unspecified Status: Acute Assessment and Plan: cont IVF, monitor Improving noted edema, d/c IVF, give dose bumex x 1, recheck BMP this afternoon (2) Nausea and vomiting: Code(s): R11.2 - Nausea with vomiting, unspecified Status: Acute Assessment and Plan: Likely 2/2 CVS, cont supportive care Resolved (3) Acute hypokalemia: Code(s): E87.6 - Hypokalemia Status: Acute Assessment and Plan: Replace as needed, 80 mEq x 1 today, recheck this afternoon (4) Hypomagnesemia: Code(s): E83.42 - Hypomagnesemia Status: Acute Assessment and Plan: Received a magnesium rider in emergency room D/c [facility] PPI in favor of H2 sonja as this could be causing low mag and low potassium issues recurrently Stable, d/c PPI, start pepcid at d/c (5) Benign hypertension with chronic kidney disease: Code(s): I12.9 - Hypertensive chronic kidney disease with stage 1 through stage 4 chronic kidney disease, or unspecified chronic kidney disease Status: Acute Assessment and Plan: Continue to monitor BUN and creatinine Appears to be patient's baseline (6) Insulin dependent diabetes mellitus: Status: Acute Assessment and Plan: Continue insulin, a1c 10.8 Accu-Cheks AC and HS 1800 calorie restricted diet carb consistent (7) Obesity, Class III, BMI 40-49.9 (morbid obesity): Code(s): E66.01 - Morbid (severe) obesity due to excess calories Status: Acute Assessment and Plan: Lifestyle and diet modifications (8) Diarrhea: Code(s): R19.7 - Diarrhea, unspecified Status: Acute Assessment and Plan: resolved (9) Toe ulcer: Qualifiers: Laterality: right Non-pressure ulcer stage: unspecified non-pressure ulcer stage Qualified Code(s): L97.519 - Non-pressure chronic ulcer of other part of right foot with unspecified severity Code(s): L97.509 - Non-pressure chronic ulcer of other part of unspecified foot with unspecified severity Status: Acute Assessment and Plan: Stable Wound care consult Local care (10) BREEN (nonalcoholic steatohepatitis): Code(s): K75.81 - Nonalcoholic steatohepatitis (BREEN) Status: Acute Assessment and Plan: f/u outpatient, stable Plan DVT prophylaxis with SCDs GI prophylaxis not indicated Code status full code DS: Summary Hospital Course Hospital Course: 47-year-old female with history of cyclic vomiting syndrome, obesity, diabetes, peptic ulcer disease is presenting with nausea, vomiting abdominal pain as well as hypokalemia and acute kidney injury on top of chronic kidney disease. Patient responded well to IV fluids, potassium administration and slowly advanced diet as tolerated. Magnesium was a little low upon admission, this was replaced and recheck showed normalization. Potassium did take several days to replace suggesting whole body depletion over the last few weeks. Therefore, patient's PPI was discontinued at discharge due to possible side effect of hypomagnesemia in favor of Pepcid or another H2 sonja per patient preference. Patient is started developed edema prior to discharge at a dose of IV Bumex was given. She was discharged on her home diuretics and close outpatient follow-up with her potassium and creatinine. She was started on potassium 20 mEq daily to take with her bumex. Please see above and med rec for details. Of note, initial CT imaging of her abdomen was concerning for possible metastatic disease in her liver. Abdominal MRI was ordered and showed that these were simply abnormalities due to her hepatic steatosis, no further workup per concerns noted. There was some
[2023-03-25] MEDS: POTASSIUM CHLORIDE 20 MEQ ER TABLET 40 MEQ PO ×2 (10:10→10:11)
[2023-03-25] MEDS: BUMETANIDE INJ 1 MG/4 ML VIAL IV PUSH (10:36)
[2023-03-25 12:13] LABS: Glucose Point of Care 193 mg/dl (65-105)
[2023-03-25] MEDS: hydrALAZINE HCL 20 MG/ML VIAL 10 MG IV PUSH (13:01)
[2023-03-25 15:06] LABS: Anion Gap 5 mmol/L (8-16); Blood Urea Nitrogen 12 mg/dL (7-17); Calcium 9.4 mg/dL (8.4-10.2); Carbon Dioxide 29 mmol/L (22-30); Chloride 103 mmol/L (98-107); Estimated CRCL calculation 77 ml/min; Estimated Glomerular Filt Rate 53; Glucose 245 mg/dL (65-110); Potassium 3.4 mmol/L (3.4-5.0); Sodium 137 mmol/L (137-145)
== END 2023-03-25 17:56 | disposition home or self-care (01) | DRG 683 ==
LOC: ANHED 22:22 → ANH3MED 23:20
PROVIDERS: Admitting Provider Internal Medicine; Emergency Provider Emergency Medicine; PCP Clinical Nurse Specialist; Visit Provider Student in an Organized Health Care Education/Training Program
DX: N17.9 Acute kidney failure, unspecified (principal); Z68.41 Body mass index [BMI] 40.0-44.9, adult; E87.6 Hypokalemia; R11.15 Cyclical vomiting syndrome unrelated to migraine; E83.42 Hypomagnesemia; I12.9 Hypertensive chronic kidney disease with stage 1 through stage 4 chronic kidney disease, or unspecified chronic kidney disease; E11.22 Type 2 diabetes mellitus with diabetic chronic kidney disease; N18.9 Chronic kidney disease, unspecified; E66.01 Morbid (severe) obesity due to excess calories; L97.519 Non-pressure chronic ulcer of other part of right foot with unspecified severity; M79.7 Fibromyalgia; K21.9 Gastro-esophageal reflux disease without esophagitis; K76.0 Fatty (change of) liver, not elsewhere classified; E03.9 Hypothyroidism, unspecified; M06.9 Rheumatoid arthritis, unspecified; G47.30 Sleep apnea, unspecified; E78.5 Hyperlipidemia, unspecified; Z90.49 Acquired absence of other specified parts of digestive tract; Z90.710 Acquired absence of both cervix and uterus; Z87.11 Personal history of peptic ulcer disease
CPT/HCPCS: 36415; 74177; 74183; 80048; 80053; 81001; 81025; 82948; 83036; 83690; 83735; 84484; 85025; 93005; 96365; 96366; 96367; 96375; 96376; 99285; A9270; A9577; G0378; J0360; J1200; J1815; J1885; J2270; J2405; J3475; J3480; J7030; J7040; Q9967

== ENCOUNTER 2023-04-01 13:43 | Outpatient (CLI) | payer BC, SELFPAY ==
[2023-04-01 14:46] LABS: Albumin Level 3.5 g/dL (3.5-5.1); Anion Gap 6 mmol/L (8-16); Blood Urea Nitrogen 21 mg/dL (7-17); Calcium 9.5 mg/dL (8.4-10.2); Carbon Dioxide 30 mmol/L (22-30); Chloride 99 mmol/L (98-107); Estimated Glomerular Filt Rate 40; Glucose 290 mg/dL (65-110); Phosphorus 3.4 mg/dL (2.5-4.5); Potassium 3.3 mmol/L (3.4-5.0); Sodium 135 mmol/L (137-145)
[2023-04-01 14:57] LABS: Creatinine Urine 166.8 mg/dL
[2023-04-01 15:22] LABS: Vitamin D 25 Hydroxy < 12.8 ng/mL
[2023-04-01 15:58] LABS: Total Protein Urine Random > 600 mg/dL
== END 2023-04-01 13:44 | disposition home or self-care (01) ==
PROVIDERS: PCP Clinical Nurse Specialist; Visit Provider Internal Medicine Nephrology
DX: I12.9 Hypertensive chronic kidney disease with stage 1 through stage 4 chronic kidney disease, or unspecified chronic kidney disease (principal); N18.32 Chronic kidney disease, stage 3b; N25.81 Secondary hyperparathyroidism of renal origin; E55.9 Vitamin D deficiency, unspecified
CPT/HCPCS: 36415; 80069; 82306; 82570; 83970; 84156

== ENCOUNTER 2023-04-22 08:33 | Outpatient (CLI) | payer BC, SELFPAY ==
[2023-04-22 14:02] LABS: Anion Gap 7 mmol/L (8-16); Blood Urea Nitrogen 21 mg/dL (7-17); Calcium 9.6 mg/dL (8.4-10.2); Carbon Dioxide 30 mmol/L (22-30); Chloride 99 mmol/L (98-107); Estimated Glomerular Filt Rate 40; Glucose 331 mg/dL (65-110); Magnesium 1.9 mg/dL (1.6-2.3); Potassium 3.1 mmol/L (3.4-5.0); Sodium 136 mmol/L (137-145)
== END 2023-04-22 08:34 | disposition home or self-care (01) ==
LOC: ANHGOSHLAB 08:36
PROVIDERS: PCP Clinical Nurse Specialist; Visit Provider Clinical Nurse Specialist
DX: E83.42 Hypomagnesemia (principal); I10 Essential (primary) hypertension
CPT/HCPCS: 36415; 80048; 83735

== ENCOUNTER 2023-04-25 00:47 | Inpatient (IN) | payer BC, SELFPAY ==
[2023-04-25] VITALS (47 sets, daily range): BP systolic 134–188; BP diastolic 70–106; PULSE 88–118; RESP 13–29; TEMP 36.6–37.2; O2SAT 84–100; BMI 41.2
--- NOTE | ~2023-04-25 | CT_ITS ---
Non-contrast CT scan of the Abdomen and Pelvis Clinical indication: Abdominal pain Technique: 2.5 mm axial scans were obtained through the abdomen and pelvis without intravenous or or al contrast. Dose reduction technique was used on this scan by utilizing automated exposure control a nd iterative reconstruction technique. The dose-length product (DLP) was 1645.59 mGy-cm. COMPARISON: 03/21/2023 Findings: Images through the lung bases reveal no abnormalities. Probable 2 mm nonobstructing right renal stone noted. No left renal stone. No ureteral stones or hydr onephrosis on either side. There are stable scattered hypodense areas in the liver, predominantly peripherally at the inferior r ight hepatic lobe, along the inferior aspect of the left hepatic lobe, and in the caudate lobe. The s pleen, pancreas, and adrenals appear normal. Cholecystectomy clips are present. There is no aortic an eurysm. Mildly enlarged susi hepatis lymph nodes are probably similar to prior exam. There is no evidence of bowel obstruction. Images through the pelvis were performed. There is no evidence of ascites or lymphadenopathy. Urinary bladder unremarkable. No adnexal mass seen. No ascites. Impression: Stable hypodense areas in the liver, as detailed above. Based on prior MR from 03/22/2023, findings ar e most consistent with areas of fatty infiltration. 2 mm nonobstructing right renal stone. Reviewed, dictated and finalized at [facility]. Impression: Stable hypodense areas in the liver, as detailed above. Based on prior MR from 03/22/2023, findings are most consistent with areas of fatty infiltration. 2 mm nonobstructing right renal stone.
--- NOTE | 2023-04-25 01:25 | ED.GENADULT ---
HPI - General Adult General Chief complaint: Nausea/Vomiting/Diarrhea Stated complaint: abd pain. cyclic vomiting Time Seen by Provider: 04/25/23 01:02 History of Present Illness HPI narrative: Patient 47-year-old female who presents emerged department with chief complaint of nausea vomiting and diarrhea. Patient reports she has history of cyclic vomiting syndrome and reports that started this evening and reports has been under more stress. Patient reports that she had diarrhea on her clothing while she was coming to the emergency department reports she has not been able to stop vomiting. The patient reports is her typical cyclic vomiting syndrome episode Related Data Home Medications Medication Instructions Recorded Confirmed acyclovir 400 mg tablet 400 mg PO BID 11/02/19 04/22/23 alprazolam 1 mg tablet 0.5 mg PO TID PRN Anxiety 11/02/19 04/22/23 docusate sodium 100 mg capsule 100 mg PO DAILY 11/02/19 04/22/23 (Colace) sertraline 100 mg tablet (Zoloft) 100 mg PO DAILY 11/02/19 04/22/23 zolpidem 10 mg tablet 10 mg PO QPM PRN Insomnia 11/02/19 04/22/23 prazosin 2 mg capsule (Minipress) 2 mg PO HS 07/03/20 04/22/23 coenzyme Q10 100 mg capsule (Co 100 mg PO DAILY 10/03/21 04/22/23 Q-10) gabapentin 300 mg capsule 300 mg PO TID 11/19/21 04/22/23 prednisolone acetate 1 % eye 2 drp RIGHT EYE DAILY 05/21/22 04/22/23 drops,suspension trazodone 50 mg tablet 50 mg PO HS 05/21/22 04/22/23 Humalog KwikPen Insulin See Protocol subcut TIDWMEAL 03/22/23 04/22/23 Lantus U-100 Insulin 38 units subcut BID 03/22/23 04/22/23 metoprolol succinate 50 mg 50 mg PO DAILY 03/22/23 04/22/23 tablet,extended release 24 hr atorvastatin 10 mg tablet 10 mg PO QHS 04/02/23 04/22/23 Allergies Allergy/AdvReac Type Severity Reaction Status Date / Time latex Allergy Severe itching Verified 04/22/23 08:00 metoclopramide Allergy Severe Redness of Verified 04/22/23 08:00 Skin Review of Systems Review of Systems: A 10 system review of systems was completed on the patient and is negative except for what is stated in the HPI. Nursing and ancillary documentation was reviewed. [facility] Past Medical History Medical History Acute renal failure Anxiety Bacteremia Bronchitis Cyclic vomiting syndrome Depression Endometriosis Fatty liver Fibromyalgia Gastroesophageal reflux disease [facility] discharge follow-up Hyperlipidemia Hypertension Hypothyroidism Insulin dependent diabetes mellitus Irritable bowel syndrome BREEN (nonalcoholic steatohepatitis) Peptic ulcer Rheumatoid arthritis Sepsis Sleep apnea Traumatic hematoma of right knee Uterine fibroid Vitamin B 12 deficiency Surgical History Surgical History H/O eye surgery (~09/20/22) History of cholecystectomy History of detached retina repair History of hysterectomy History of laparoscopy Removal of uterine fibroids History of partial knee replacement Family History Family History Mother Diabetes mellitus Hypertension Family history of elevated blood lipids Sibling Family history of obesity Patient's sister is in good health Father Hypertension Family history of cardiovascular disease Other Acute myocardial infarction Family history of arthritis Family history of heart disease in male family member before age 55 Family history of thyroid disease Social History Social History Social History: Lives alone in [place]. with no children. No alcohol, tobacco, illicit substance abuse. Surrogate decision maker: Susan Mariano, sister. Code status: Full code. Caffeine-daily Smoking status: Never smoker Alcohol intake: current Alcohol use details: rarely Substance use: never Substance use type:
[2023-04-25 01:40] LABS: Basophils Absolute Auto 0.1 K/mm3 (0.0-0.1); Basophils Percent Auto 0.3 % (0.2-1.2); Hematocrit 44.6 % (37.0-47.0); Hemoglobin 14.7 g/dL (12.0-15.0); Immature Granulocyte Absolute 0.14 K/mm3 (0.00-0.031); Immature Granulocyte Percent A 0.6 % (0-0.5); Lymphocytes Absolute Auto 1.27 K/mm3 (0.9-3.2); Lymphocytes Percent Auto 5.9 % (18.3-44.2); Mean Corpuscular Volume 81.8 fl (80-100); Mean Platelet Volume 9.9 fl (7.4-10.4); Monocytes Absolute Auto 0.6 K/mm3 (0.1-0.6); Monocytes Percent Auto 2.5 % (2.6-8.5); Neutrophils Absolute Auto 19.6 K/mm3 (1.3-6.7); Neutrophils Percent Auto 90.7 % (45.5-73.1); Platelet Count Result 329 k/mm3 (150-375); Red Blood Count 5.45 M/mm3 (4.2-5.4); Red Cell Distribution Width 13.6 % (11.5-14.5); White Blood Count 21.6 K/mm3 (4.5-10.0)
[2023-04-25] MEDS: diphenhydrAMINE HCl INJ 50 MG/ML VIAL 25 MG IV PUSH (01:50)
[2023-04-25] MEDS: HALOPERIDOL LACTATE 5 MG/ML VIAL IV PUSH (01:50)
[2023-04-25] MEDS: SODIUM CHLORIDE 0.9% IV 1,000 ML 999 ML IV CONT ×2 (01:50→03:05)
[2023-04-25 01:56] LABS: Magnesium 1.6 mg/dL (1.6-2.3)
[2023-04-25] MEDS: MAGNESIUM SULF 2 GM/WATER 50ML 2 GM/50 ML BAG IVPB (02:21)
[2023-04-25 02:54] LABS: Alanine Aminotransferase 41 U/L (6-35); Albumin Level 4.4 g/dL (3.5-5.1); Alkaline Phosphatase 179 U/L (38-126); Anion Gap 19 mmol/L (8-16); Aspartate Amino Transferase 43 U/L (14-36); Bilirubin,Total 0.9 mg/dL (0.2-1.3); Blood Urea Nitrogen 22 mg/dL (7-17); Calcium 10.6 mg/dL (8.4-10.2); Carbon Dioxide 16 mmol/L (22-30); Chloride 101 mmol/L (98-107); Estimated Glomerular Filt Rate 24; Glucose 568 mg/dL (65-110); Lipase 70 U/L (23-300); Potassium 3.8 mmol/L (3.4-5.0); Sodium 136 mmol/L (137-145)
[2023-04-25] MEDS: ONDANSETRON INJ 4 MG/2 ML VIAL IV PUSH (02:59)
[2023-04-25 03:15] LABS: Appearance Urine Cloudy (Clear); Bacteria Urine 1+ /hpf; Bilirubin Urine Negative (Negative); Blood Urine 1+ (Negative); Color Urine Yellow (Yellow); Glucose Urine UA 3+ mg/dL (Negative); Ketones Urine Trace mg/dL (Negative); Leukocyte Esterase Ur Negative LEU/UL (Negative); Need Manual Microscopic Reviewed; Nitrate Urine Negative (Negative); Protein Urine 4+ mg/dL (Negative); RBC Urine 21-50 /hpf (0-2); Specific Grav Ur 1.021 (1.001-1.035); Squamous Epithelial Cell Urine Many /hpf (Few); Urobilinogen Urine 0.2 mg/dL (<2.0); pH Urine 6.5 (5.0-9.0)
[2023-04-25 03:30] LABS: Add Urine Microscopic? YES
[2023-04-25 04:04] LABS: Glucose Point of Care > 500 mg/dl (65-105)
[2023-04-25 04:12] LABS: Phosphorus 4.7 mg/dL (2.5-4.5)
[2023-04-25 04:15] LABS: Alveolar/Arterial O2 Gradient 50.6 mmHg; Base Excess ABG -5.4 mEq/l (+/-2.0); Fractional Inspired Oxygen 21 %; HCO3 ABG 19.7 mEq/l (22.0-26.0); Oxygen Content ABG 17.7 %vol (16.0-22.0); PCO2 ABG 37.1 mmHg (35.0-45.0); PO2 ABG 54.7 mmHg (80.0-100.0); Total Hemoglobin 14.8 g/dL (12.0-18.0); pH ABG 7.342 (7.350-7.450)
[2023-04-25 04:18] LABS: Modified Allen's Test Pass; Oxyhemoglobin 85.3 % THb (90.0-100.0); Site Drawn LEFT RADIAL
[2023-04-25 04:19] LABS: Beta-Hydroxybutyrate/Acetoacetate 1.21 mmol/L (0.02-0.27)
[2023-04-25] MEDS: INSULIN HUMAN REGULAR (*BKC) 100 UNITS/ML 10 UNITS IV PUSH (04:41)
--- NOTE | 2023-04-25 04:44 | ECG_ITS ---
Measurements Intervals Standard Rate: 115 P: 238 MD: 129 QRS: -74 QRSD: 131 T: 89 QT: 385 QTc: 534 Interpretive Statements SINUS OR ECTOPIC ATRIAL TACHYCARDIA LEFT AXIS DEVIATION IVCD, FEATURES OF BOTH RBBB AND LBBB LEFT VENTRICULAR HYPERTROPHY AND ST-T CHANGE ABNORMAL ECG COMPARED TO ECG 03/21/2023 20:12:18 HEART RATE HAS INCREASED Electronically Signed On 04-25-2023 10:13:35 CDT by Betito Huber D.O.
--- NOTE | 2023-04-25 05:08 | PC.NURSE ---
Pt placed on 2L o2 due OXYHB being 85. pt stating 96 on 2L
--- NOTE | 2023-04-25 05:09 | PC.NURSE ---
EKG completed due to pt high HR. When asked if pt is having chest pain she reported yes but I didnt mention it because everything else hurts worse . Provider made aware.
[2023-04-25] MEDS: HYDROmorphone HCL INJ (*CRX) 1 MG/ML SYR IV PUSH (05:21)
[2023-04-25] MEDS: SODIUM CHLORIDE 0.9% IV 1,000 ML 200 ML IV CONT ×2 (05:26→09:53)
[2023-04-25 05:33] LABS: Glucose Point of Care 415 mg/dl (65-105)
[2023-04-25 05:52] LABS: Troponin I 0.014 ng/mL (0.000-0.034)
[2023-04-25 06:24] LABS: Lactic Acid Reflex 2.8 mmol/L (0.7-2.0)
--- NOTE | 2023-04-25 07:29 | PM.IMHP ---
H&P: HPI History of Present Illness Date/Time: 04/25/23 07:29 Chief Complaint: Nausea vomiting diarrhea Narrative: 47 years old lady with history of diabetes, psychiatric disorders, diabetic neuropathy, presented ED with a chief complaint of nausea vomiting diarrhea. Patient has history of cyclic vomiting syndrome, and started have nausea vomiting yesterday evening. Patient also has diarrhea there patient came to ED for evaluation, in the ED, patient found have uncontrolled glucose 568, metabolic acidosis, bicarbonate 16, anion gap 19, positive ketone hydroxybutyrate 1.21. Patient is also found have leukocytosis to 21,600, UA shows pyuria, microscopic hematuria, CT abdomen pelvis shows no acute intra abdomen issue but is nonobstructive 2 mm right kidney stone. Patient received insulin 10 units IV push, patient is admitted to ICU for close monitoring. Patient denies chest pain, shortness breast, headache, focal weakness, PMFSH Past Medical History Medical History Acute renal failure Anxiety Bacteremia Bronchitis Cyclic vomiting syndrome Depression Endometriosis Fatty liver Fibromyalgia Gastroesophageal reflux disease [facility] discharge follow-up Hyperlipidemia Hypertension Hypothyroidism Insulin dependent diabetes mellitus Irritable bowel syndrome BREEN (nonalcoholic steatohepatitis) Peptic ulcer Rheumatoid arthritis Sepsis Sleep apnea Traumatic hematoma of right knee Uterine fibroid Vitamin B 12 deficiency Surgical History Surgical History H/O eye surgery (~09/20/22) History of cholecystectomy History of detached retina repair History of hysterectomy History of laparoscopy Removal of uterine fibroids History of partial knee replacement Family History Family History Mother Diabetes mellitus Hypertension Family history of elevated blood lipids Sibling Family history of obesity Patient's sister is in good health Father Hypertension Family history of cardiovascular disease Other Acute myocardial infarction Family history of arthritis Family history of heart disease in male family member before age 55 Family history of thyroid disease Social History Social History Social History: Lives alone in [place]. with no children. No alcohol, tobacco, illicit substance abuse. Surrogate decision maker: Susan Mariano, sister. Code status: Full code. Caffeine-daily Smoking status: Never smoker Alcohol intake: current Drinks per week: 1 Alcohol use details: rarely Substance use: never Substance use type: does not use Lack of Transportation: No Lack of Food: Never True Current Housing: I Have Housing Concerned About Future Housing: No Difficulty Paying Gas/Electric Bills: No Difficulty Paying for Meds: No Currently Unemployed: No Education: Associate Degree Difficulty w/ Childcare or Family Care: No Living arrangements: with family Gender identity (if verbalized by the patient): Female Spiritual care concerns: No Meds Home Medications and Allergies Home Medications Medication Instructions Recorded Confirmed Type acyclovir 400 mg tablet 400 mg PO BID 11/02/19 04/25/23 History alprazolam 1 mg tablet 0.5 mg PO TID PRN Anxiety 11/02/19 04/25/23 History docusate sodium 100 mg capsule 100 mg PO DAILY 11/02/19 04/25/23 History (Colace) sertraline 100 mg tablet (Zoloft) 100 mg PO DAILY 11/02/19 04/25/23 History zolpidem 10 mg tablet 10 mg PO QPM PRN Insomnia 11/02/19 04/25/23 History prazosin 2 mg capsule (Minipress) 2 mg PO HS 07/03/20 04/25/23 History coenzyme Q10 100 mg capsule (Co 100 mg PO DAILY 10/03/21 04/25/23 History Q-10) gabapentin 300 mg capsule 300 mg PO TID 11/19/21 04/25/23 Histo
[2023-04-25 08:04] LABS: Anion Gap 14 mmol/L (8-16); Blood Urea Nitrogen 22 mg/dL (7-17); Calcium 9.8 mg/dL (8.4-10.2); Carbon Dioxide 20 mmol/L (22-30); Chloride 105 mmol/L (98-107); Estimated CRCL calculation 51 ml/min; Estimated Glomerular Filt Rate 32; Glucose 469 mg/dL (65-110); Magnesium 2.1 mg/dL (1.6-2.3); Phosphorus 3.5 mg/dL (2.5-4.5); Sodium 139 mmol/L (137-145)
--- NOTE | 2023-04-25 08:04 | ADMGEN ---
This patient, Jennifer Londono, was admitted to Intensive Care Unit-9. Patient/family oriented to hospital policies and general routines including ID bracelet, bed and alarms, visiting hours, pain management, procedures, bathroom and other care routines, personal items, smoking policy, room service/diet, and visiting hours. Information on how to activate the Rapid Response Team has been discussed. Patient/Family are encouraged to report perceived risks to care and to ask questions if they do not understand what they are told or what they should do.
[2023-04-25 08:11] LABS: Hemoglobin A1C 11.2 % (<5.7)
[2023-04-25 08:11] LABS: Anion Gap 7 mmol/L (8-16); Blood Urea Nitrogen 21 mg/dL (7-17); Calcium 9.4 mg/dL (8.4-10.2); Carbon Dioxide 26 mmol/L (22-30); Chloride 106 mmol/L (98-107); Estimated CRCL calculation 48 ml/min; Estimated Glomerular Filt Rate 30; Glucose 400 mg/dL (65-110); Potassium 3.5 mmol/L (3.4-5.0); Sodium 139 mmol/L (137-145)
[2023-04-25 08:16] LABS: Reflex Lactic Acid Yes or No Add Lactic
[2023-04-25 08:47] LABS: Glucose Point of Care 435 mg/dl (65-105)
[2023-04-25] MEDS: SERTRALINE HCL 50 MG TABLET 100 MG PO (09:48)
[2023-04-25] MEDS: METOPROLOL SUCCINATE EXT REL 50 MG TABCR PO (09:49)
[2023-04-25] MEDS: ALPRAZolam (*CRX) 0.5 MG TABLET PO ×2 (09:49→22:04)
[2023-04-25] MEDS: POTASSIUM CHLORIDE 20 MEQ ER TABLET PO (09:49)
[2023-04-25] MEDS: PANTOPRAZOLE 40 MG TABLET PO ×2 (09:49→17:49)
[2023-04-25] MEDS: LOSARTAN POTASSIUM 100 MG TABLET PO (09:49)
[2023-04-25] MEDS: amLODIPine BESYLATE 5 MG TABLET PO (09:49)
[2023-04-25] MEDS: metroNIDAZOLE 500 MG/ISO 100ML 500 MG/100 ML BAG 100 MG IVPB ×3 (09:50→22:04)
[2023-04-25] MEDS: ACYCLOVIR 400 MG TABLET PO ×2 (09:50→17:49)
[2023-04-25] MEDS: GABAPENTIN 300 MG CAPSULE PO ×3 (09:50→17:49)
[2023-04-25] MEDS: INSULIN GLARGINE (*BKC) 100 UNITS/ML 38 UNITS SUB-Q ×2 (09:54→17:54)
[2023-04-25] MEDS: INSULIN ASPART (*BKC) 100 UNITS/ML SUB-Q ×3 (09:59→21:49)
[2023-04-25 10:14] LABS: Glucose Point of Care 365 mg/dl (65-105)
[2023-04-25] MEDS: cefTRIAXone 2 GM/NS 100 ML 2 GM/100 ML BAG IVPB (12:12)
[2023-04-25 12:18] LABS: Glucose Point of Care 308 mg/dl (65-105)
[2023-04-25 17:58] LABS: Glucose Point of Care 162 mg/dl (65-105)
[2023-04-25 19:55] LABS: Glucose Point of Care 293 mg/dl (65-105)
[2023-04-25] MEDS: traZODone HCL 50 MG TABLET PO (21:49)
[2023-04-25] MEDS: AMITRIPTYLINE HCL 25 MG TABLET 75 MG PO (21:49)
[2023-04-25] MEDS: ATORVASTATIN 10 MG TABLET PO (21:49)
[2023-04-25 23:15] LABS: Glucose Point of Care 202 mg/dl (65-105)
[2023-04-25] MEDS: ZOLPIDEM TARTRATE (*CRX) 5 MG TABLET 10 MG PO (23:36)
[2023-04-26 05:00] VITALS: BP 174/92; PULSE 95; RESP 16; TEMP 37.1; O2SAT 92
[2023-04-26 06:42] LABS: Glucose Point of Care 213 mg/dl (65-105)
[2023-04-26 06:47] LABS: Glucose Point of Care 192 mg/dl (65-105)
[2023-04-26 07:46] LABS: Basophils Absolute Auto 0.1 K/mm3 (0.0-0.1); Basophils Percent Auto 0.6 % (0.2-1.2); Eosinophils Absolute Auto 0.1 K/mm3 (0-0.3); Eosinophils Percent Auto 1.1 % (0-4.4); Hematocrit 39.5 % (37.0-47.0); Hemoglobin 12.4 g/dL (12.0-15.0); Immature Granulocyte Absolute 0.06 K/mm3 (0.00-0.031); Immature Granulocyte Percent A 0.5 % (0-0.5); Lymphocytes Absolute Auto 2.96 K/mm3 (0.9-3.2); Lymphocytes Percent Auto 23.3 % (18.3-44.2); Mean Corpuscular HGB Conc 31.4 g/dl (32-36); Mean Corpuscular Hemoglobin 27.4 pg (26-34); Mean Corpuscular Volume 87.4 fl (80-100); Mean Platelet Volume 9.7 fl (7.4-10.4); Monocytes Absolute Auto 0.7 K/mm3 (0.1-0.6); Monocytes Percent Auto 5.1 % (2.6-8.5); Neutrophils Absolute Auto 8.8 K/mm3 (1.3-6.7); Neutrophils Percent Auto 69.4 % (45.5-73.1); Platelet Count Result 282 k/mm3 (150-375); Red Blood Count 4.52 M/mm3 (4.2-5.4); Red Cell Distribution Width 13.6 % (11.5-14.5); White Blood Count 12.7 K/mm3 (4.5-10.0)
[2023-04-26 08:00] VITALS: PULSE 81; RESP 16; O2SAT 94
[2023-04-26 08:06] LABS: Anion Gap 7 mmol/L (8-16); Blood Urea Nitrogen 22 mg/dL (7-17); Calcium 9.7 mg/dL (8.4-10.2); Carbon Dioxide 28 mmol/L (22-30); Chloride 103 mmol/L (98-107); Estimated CRCL calculation 48 ml/min; Estimated Glomerular Filt Rate 30; Glucose 184 mg/dL (65-110); Potassium 2.8 mmol/L (3.4-5.0); Sodium 138 mmol/L (137-145)
--- NOTE | 2023-04-26 08:21 | PM.IMPN ---
Progress Note: A&P Assessment and Plan (1) DKA (diabetic ketoacidosis): Code(s): E11.10 - Type 2 diabetes mellitus with ketoacidosis without coma Status: Acute (2) Severe sepsis: Code(s): A41.9 - Sepsis, unspecified organism; R65.20 - Severe sepsis without septic shock Status: Acute (3) Complicated UTI (urinary tract infection): Code(s): N39.0 - Urinary tract infection, site not specified Status: Acute (4) Kidney stone: Code(s): N20.0 - Calculus of kidney Status: Acute (5) BREEN (nonalcoholic steatohepatitis): Code(s): K75.81 - Nonalcoholic steatohepatitis (BREEN) Status: Acute (6) Acute infective gastroenteritis: Code(s): A09 - Infectious gastroenteritis and colitis, unspecified Status: Acute (7) Cyclic vomiting syndrome: Code(s): R11.15 - Cyclical vomiting syndrome unrelated to migraine Status: Acute (8) Hypertension: Code(s): I10 - Essential (primary) hypertension Status: Acute Plan Sepsis Patient has leukocytosis white blood cell count 78026 with left shift, tachycardia tachypnea, resulting from UTI and acute infective gastroenteritis Start fluid resuscitation Follow-up blood culture, urine culture, stool culture, C diff of screening Start ceftriaxone and Flagyl IV DKA with a type 1 diabetes Patient has diabetes on insulin, in the ED, patient found have uncontrolled glucose, positive ketones, metabolic acidosis, positive anion gap Receive insulin 10 units push in the ED Start fluid resuscitation Follow-up BMP q.4 Repeated blood work suggests a gap closed, Start basal insulin and short-acting insulin before each meal Start insulin sliding scale acute infective gastroenteritis Patient had abdomen pain, nausea vomiting diarrhea, patient also has a leukocytosis 21,000, possible acute infective gastroenteritis Start ceftriaxone and Flagyl IV Complicated UTI UA shows pyuria microscopic hematuria, kidney stone right-sided nonobstructive Start ceftriaxone 2 g IV daily Follow urine culture, pending Essential hypertension On control Continue home medications Psychiatry disorder Stable Continue home medication Patient may stay more than 2 midnights in hospital Subjective Date/time seen: 04/26/23 08:21 Interval history: Patient feels better today, still has nausea denies vomiting. The pain has resolved. Afebrile, leukocytosis improving, blood culture no growth so far Exam Narrative: GENERAL: Anxious, in no acute distress. Well-nourished. - EYES: EOMI. Anicteric. - HENT: Moist mucous membranes. - LUNGS: Clear to auscultation bilaterally, no wheezing, rhonchi, or rales. - CARDIOVASCULAR: Regular rate and rhythm. No murmur. No JVD. - ABDOMEN: Soft, non-tender and non-distended. No palpable masses. - EXTREMITIES: No edema. Peripheral pulses 2+. Non-tender. - NEUROLOGIC: No focal neurological deficits. CN II-XII grossly intact. - PSYCHIATRIC: Awake, Alert and oriented x 3. Appropriate mood and affect. - SKIN: No rashes or lesions. Warm. - LYMPH: No cervical lymphadenopathy. Objective Data Vital Signs Vital Signs: Vital Signs - 24 hr 04/25/23 08:48 04/25/23 09:11 04/25/23 09:36 Temperature Pulse Rate 105 H 106 H Respiratory Rate 13 16 Blood Pressure Pulse Oximetry 89 L 93 93 Oxygen Delivery Nasal Cannula Oxygen Flow Rate 2 Fraction of Inspired Oxygen 28 04/25/23 09:49 04/25/23 09:22 04/25/23 09:33 Temperature Pulse Rate 112 H 108 H 108 H Respiratory Rate 16 16 Blood Pressure Pulse Oximetry 91 84 L Oxygen Delivery Oxygen Flow Rate Fraction of Inspired Oxygen 04/25/23 09:59 04/25/23 10:00 04/25/23 10:02 Temperature Pulse Rate 106 H 105 H 105 H Respiratory Rate 18 19 28 H Blood Pressure 161/94 H Pulse Oximetry 93 94 93 Oxygen Delivery Oxygen Flow Rate Fraction of Inspired Oxygen 04/25/23 12:00 04/25/23 10:00 04/25
[2023-04-26 08:38] LABS: Glucose Point of Care 198 mg/dl (65-105)
[2023-04-26] MEDS: POTASSIUM CHLORIDE 20 MEQ ER TABLET 40 MEQ PO ×3 (09:48→18:47)
[2023-04-26] MEDS: INSULIN GLARGINE (*BKC) 100 UNITS/ML 38 UNITS SUB-Q ×2 (09:50→18:41)
[2023-04-26 09:53] VITALS: PULSE 68
[2023-04-26] MEDS: LOSARTAN POTASSIUM 100 MG TABLET PO (09:53)
[2023-04-26] MEDS: METOPROLOL SUCCINATE EXT REL 50 MG TABCR PO (09:53)
[2023-04-26] MEDS: SERTRALINE HCL 50 MG TABLET 100 MG PO (09:54)
[2023-04-26] MEDS: ACYCLOVIR 400 MG TABLET PO ×2 (09:54→18:36)
[2023-04-26] MEDS: PANTOPRAZOLE 40 MG TABLET PO ×2 (09:54→18:37)
[2023-04-26] MEDS: amLODIPine BESYLATE 5 MG TABLET PO (09:54)
[2023-04-26] MEDS: ALPRAZolam (*CRX) 0.5 MG TABLET PO ×2 (09:56→21:01)
[2023-04-26] MEDS: KCL 20 MEQ/SW 100 ML 100 ML 50 MEQ IVPB (11:18)
[2023-04-26] MEDS: GABAPENTIN 300 MG CAPSULE PO ×3 (11:18→18:36)
[2023-04-26] MEDS: SODIUM CHLORIDE 0.9% IV 250 ML 100 ML IV CONT (11:19)
[2023-04-26 12:26] VITALS: BMI 41.6
[2023-04-26 13:07] LABS: Glucose Point of Care 360 mg/dl (65-105)
[2023-04-26] MEDS: cefTRIAXone 2 GM/NS 100 ML 2 GM/100 ML BAG IVPB (13:41)
[2023-04-26] MEDS: INSULIN ASPART (*BKC) 100 UNITS/ML SUB-Q ×3 (13:42→21:13)
[2023-04-26 14:35] VITALS: BP 149/86; PULSE 81; RESP 16; TEMP 36.4; O2SAT 94
[2023-04-26] MEDS: metroNIDAZOLE 500 MG/ISO 100ML 500 MG/100 ML BAG 100 MG IVPB ×2 (15:57→21:02)
[2023-04-26 17:26] LABS: Glucose Point of Care 210 mg/dl (65-105)
[2023-04-26] MEDS: ATORVASTATIN 10 MG TABLET PO (21:01)
[2023-04-26] MEDS: ZOLPIDEM TARTRATE (*CRX) 5 MG TABLET 10 MG PO (22:03)
[2023-04-26 22:57] LABS: Glucose Point of Care 299 mg/dl (65-105)
[2023-04-26 22:58] VITALS: BP 158/81; PULSE 98; RESP 20; TEMP 36.5; O2SAT 92
[2023-04-27 01:22] LABS: Glucose Point of Care 227 mg/dl (65-105)
[2023-04-27 06:00] LABS: Glucose Point of Care 191 mg/dl (65-105)
[2023-04-27 06:10] VITALS: BP 147/86; PULSE 81; RESP 20; TEMP 36.6; O2SAT 98
[2023-04-27] MEDS: metroNIDAZOLE 500 MG/ISO 100ML 500 MG/100 ML BAG 100 MG IVPB ×3 (06:27→21:03)
[2023-04-27 07:23] LABS: Hematocrit 40.8 % (37.0-47.0); Mean Corpuscular HGB Conc 31.9 g/dl (32-36); Mean Corpuscular Hemoglobin 27.3 pg (26-34); Mean Corpuscular Volume 85.5 fl (80-100); Mean Platelet Volume 9.7 fl (7.4-10.4); Platelet Count Result 269 k/mm3 (150-375); Red Blood Count 4.77 M/mm3 (4.2-5.4); Red Cell Distribution Width 13.4 % (11.5-14.5); White Blood Count 9.9 K/mm3 (4.5-10.0)
[2023-04-27 07:30] LABS: Anion Gap 6 mmol/L (8-16); Blood Urea Nitrogen 25 mg/dL (7-17); Calcium 9.7 mg/dL (8.4-10.2); Carbon Dioxide 29 mmol/L (22-30); Chloride 104 mmol/L (98-107); Estimated CRCL calculation 61 ml/min; Estimated Glomerular Filt Rate 34; Glucose 162 mg/dL (65-110); Potassium 3.3 mmol/L (3.4-5.0); Sodium 139 mmol/L (137-145)
[2023-04-27 08:00] VITALS: PULSE 81; RESP 20; O2SAT 98
[2023-04-27] MEDS: SERTRALINE HCL 50 MG TABLET 100 MG PO (08:07)
[2023-04-27] MEDS: LOSARTAN POTASSIUM 100 MG TABLET PO (08:07)
[2023-04-27] MEDS: ACYCLOVIR 400 MG TABLET PO ×2 (08:07→16:00)
[2023-04-27] MEDS: METOPROLOL SUCCINATE EXT REL 50 MG TABCR PO (08:07)
[2023-04-27] MEDS: GABAPENTIN 300 MG CAPSULE PO ×3 (08:07→16:00)
[2023-04-27] MEDS: PANTOPRAZOLE 40 MG TABLET PO ×2 (08:07→16:00)
[2023-04-27] MEDS: cefTRIAXone 2 GM/NS 100 ML 2 GM/100 ML BAG IVPB (08:08)
[2023-04-27] MEDS: amLODIPine BESYLATE 5 MG TABLET PO (08:08)
[2023-04-27] MEDS: INSULIN GLARGINE (*BKC) 100 UNITS/ML 38 UNITS SUB-Q ×2 (08:09→17:35)
[2023-04-27] MEDS: ALPRAZolam (*CRX) 0.5 MG TABLET PO ×2 (08:13→21:02)
[2023-04-27] MEDS: POTASSIUM CHLORIDE 20 MEQ ER TABLET 40 MEQ PO ×2 (08:14→16:02)
[2023-04-27] MEDS: AMITRIPTYLINE HCL 25 MG TABLET 75 MG PO (08:15)
--- NOTE | 2023-04-27 08:42 | PM.IMPN ---
Progress Note: A&P Assessment and Plan (1) DKA (diabetic ketoacidosis): Code(s): E11.10 - Type 2 diabetes mellitus with ketoacidosis without coma Status: Acute (2) Severe sepsis: Code(s): A41.9 - Sepsis, unspecified organism; R65.20 - Severe sepsis without septic shock Status: Acute (3) Complicated UTI (urinary tract infection): Code(s): N39.0 - Urinary tract infection, site not specified Status: Acute (4) Kidney stone: Code(s): N20.0 - Calculus of kidney Status: Acute (5) BREEN (nonalcoholic steatohepatitis): Code(s): K75.81 - Nonalcoholic steatohepatitis (BREEN) Status: Acute (6) Acute infective gastroenteritis: Code(s): A09 - Infectious gastroenteritis and colitis, unspecified Status: Acute (7) Cyclic vomiting syndrome: Code(s): R11.15 - Cyclical vomiting syndrome unrelated to migraine Status: Acute (8) Hypertension: Code(s): I10 - Essential (primary) hypertension Status: Acute Plan Sepsis Patient has leukocytosis white blood cell count 21984 with left shift, tachycardia tachypnea, resulting from UTI and acute infective gastroenteritis Start fluid resuscitation Follow-up blood culture no growth so far,, urine culture mixed genital bacteriuria Continue ceftriaxone and Flagyl IV DKA with a type 1 diabetes Patient has diabetes on insulin, in the ED, patient found have uncontrolled glucose, positive ketones, metabolic acidosis, positive anion gap Receive insulin 10 units push in the ED Start fluid resuscitation Follow-up BMP q.4 Repeated blood work suggests a gap closed, Start basal insulin and short-acting insulin before each meal Start insulin sliding scale acute infective gastroenteritis Patient had abdomen pain, nausea vomiting diarrhea, patient also has a leukocytosis 21,000, possible acute infective gastroenteritis Start ceftriaxone and Flagyl IV Complicated UTI UA shows pyuria microscopic hematuria, kidney stone right-sided nonobstructive Start ceftriaxone 2 g IV daily Follow urine culture, Mixed genital steven isolated. These superficial bacteria are not indicative of a urinary tract infection. Essential hypertension On control Continue home medications Psychiatry disorder Stable Continue home medication Patient may stay more than 2 midnights in hospital Subjective Date/time seen: 04/27/23 08:42 Interval history: Patient feels better today, still has nausea denies vomiting. Appetite is improving. The pain has resolved. Afebrile, leukocytosis improving, blood culture no growth so far Exam Narrative: GENERAL: Anxious, in no acute distress. Well-nourished. - EYES: EOMI. Anicteric. - HENT: Moist mucous membranes. - LUNGS: Clear to auscultation bilaterally, no wheezing, rhonchi, or rales. - CARDIOVASCULAR: Regular rate and rhythm. No murmur. No JVD. - ABDOMEN: Soft, non-tender and non-distended. No palpable masses. - EXTREMITIES: No edema. Peripheral pulses 2+. Non-tender. - NEUROLOGIC: No focal neurological deficits. CN II-XII grossly intact. - PSYCHIATRIC: Awake, Alert and oriented x 3. Appropriate mood and affect. - SKIN: No rashes or lesions. Warm. - LYMPH: No cervical lymphadenopathy. Objective Data Vital Signs Vital Signs: Vital Signs - 24 hr 04/26/23 09:53 04/26/23 14:35 04/26/23 20:00 Temperature 97.6 F Pulse Rate 68 81 Respiratory Rate 16 Blood Pressure 149/86 H Pulse Oximetry 94 Oxygen Delivery Room Air Fraction of Inspired Oxygen 04/26/23 22:58 04/27/23 06:10 04/27/23 08:00 Temperature 97.7 F 98 F Pulse Rate 98 81 81 Respiratory Rate 20 20 20 Blood Pressure 158/81 H 147/86 H Pulse Oximetry 92 98 98 Oxygen Delivery Room Air Fraction of Inspired Oxygen 28 Intake/Output Intake/Output: Intake & Output 04/24/23 04/25/23 04/26/23 04/27/23 23:59 23:59 23:59 23:59 Intake Total 4210 1500 450 Output Total
[2023-04-27 12:01] LABS: Glucose Point of Care 208 mg/dl (65-105)
[2023-04-27] MEDS: INSULIN ASPART (*BKC) 100 UNITS/ML SUB-Q ×3 (12:12→21:02)
[2023-04-27 14:45] VITALS: BP 155/87; PULSE 71; RESP 16; TEMP 36.4; O2SAT 100
[2023-04-27 17:05] LABS: Glucose Point of Care 229 mg/dl (65-105)
[2023-04-27 20:00] VITALS: BP 182/92; PULSE 98; RESP 18; TEMP 36.6; O2SAT 98
[2023-04-27] MEDS: ZOLPIDEM TARTRATE (*CRX) 5 MG TABLET 10 MG PO (21:02)
[2023-04-27] MEDS: ATORVASTATIN 10 MG TABLET PO (21:04)
[2023-04-27 21:41] VITALS: BP 182/92
[2023-04-27] MEDS: hydrALAZINE HCL 20 MG/ML VIAL (22:30)
[2023-04-27 23:00] LABS: Glucose Point of Care 292 mg/dl (65-105)
[2023-04-28 00:19] LABS: Glucose Point of Care 216 mg/dl (65-105)
[2023-04-28 00:25] VITALS: BP 158/90; PULSE 80
[2023-04-28] MEDS: INSULIN ASPART (*BKC) 100 UNITS/ML SUB-Q (00:25)
--- NOTE | 2023-04-28 00:34 | ECG_ITS ---
Measurements Intervals [place] Rate: 77 P: 50 NV: 188 QRS: -71 QRSD: 123 T: 105 QT: 447 QTc: 506 Interpretive Statements SINUS RHYTHM LEFT ATRIAL ENLARGEMENT LEFT ANTERIOR FASCICULAR BLOCK LEFT VENTRICULAR HYPERTROPHY AND ST-T CHANGE ABNORMAL ECG COMPARED TO ECG 04/25/2023 04:53:05 SINUS RHYTHM NOW PRESENT Electronically Signed On 04-28-2023 8:18:11 CDT by Betito Huber D.O.
--- NOTE | 2023-04-28 00:36 | PM.EVENT ---
Event Note Event Note Event Note: Nursing staff called me shortly after midnight. The patient evidently developed some elevated blood pressures around 20:00 and the nurse practitioner was contacted. She given order for hydralazine. Patient received hydralazine around 23:00 and around midnight patient developed and generalized rash. The patient reports the rash is similar to when she had allergic reaction to Reglan in the past. She reported itching. Nursing staff called me regarding a dose of Benadryl. The patient is on medications at home that could cause QT prolongation. I will check a stat EKG to ensure patient does not have any evidence a QT prolongation. If there is no QT prolongation will provide patient with IV Benadryl. I will also change the patient's p.r.n. antihypertensive to Lopressor 5 mg IV q.6 hours p.r.n. systolic blood pressures greater than 160. The patient feels that her blood pressure elevated due to her not receiving her Bumex. The patient's Bumex was evidently placed on hold due to acute kidney injury when she arrived to the hospital. I will defer the decision to restart the patient's Bumex to the daytime hospitalist team.
[2023-04-28] MEDS: diphenhydrAMINE HCl INJ 50 MG/ML VIAL IV PUSH (01:14)
[2023-04-28 05:27] LABS: Hematocrit 40.1 % (37.0-47.0); Hemoglobin 12.9 g/dL (12.0-15.0); Mean Corpuscular HGB Conc 32.2 g/dl (32-36); Mean Corpuscular Hemoglobin 27.2 pg (26-34); Mean Corpuscular Volume 84.6 fl (80-100); Mean Platelet Volume 9.3 fl (7.4-10.4); Platelet Count Result 243 k/mm3 (150-375); Red Blood Count 4.74 M/mm3 (4.2-5.4); Red Cell Distribution Width 13.3 % (11.5-14.5); White Blood Count 9.1 K/mm3 (4.5-10.0)
[2023-04-28] MEDS: metroNIDAZOLE 500 MG/ISO 100ML 500 MG/100 ML BAG 100 MG IVPB (05:35)
[2023-04-28 05:44] LABS: Anion Gap 7 mmol/L (8-16); Blood Urea Nitrogen 23 mg/dL (7-17); Calcium 9.3 mg/dL (8.4-10.2); Carbon Dioxide 26 mmol/L (22-30); Chloride 105 mmol/L (98-107); Estimated CRCL calculation 80 ml/min; Estimated Glomerular Filt Rate 48; Glucose 167 mg/dL (65-110); Potassium 3.5 mmol/L (3.4-5.0); Sodium 138 mmol/L (137-145)
[2023-04-28 05:48] LABS: Troponin I < 0.012 ng/mL (0.000-0.034)
[2023-04-28 05:50] LABS: Glucose Point of Care 174 mg/dl (65-105)
[2023-04-28 06:00] VITALS: BP 188/98; PULSE 85; RESP 20; TEMP 36.6; O2SAT 98
[2023-04-28] MEDS: METOPROLOL TARTRATE INJ 5 MG/5 ML VIAL IV PUSH (06:21)
[2023-04-28 08:05] VITALS: BP 159/80
[2023-04-28 08:07] LABS: Glucose Point of Care 176 mg/dl (65-105)
[2023-04-28] MEDS: INSULIN GLARGINE (*BKC) 100 UNITS/ML 38 UNITS SUB-Q (08:09)
[2023-04-28] MEDS: amLODIPine BESYLATE 5 MG TABLET PO (08:11)
[2023-04-28] MEDS: METOPROLOL SUCCINATE EXT REL 50 MG TABCR PO (08:11)
[2023-04-28] MEDS: ACYCLOVIR 400 MG TABLET PO (08:11)
[2023-04-28] MEDS: GABAPENTIN 300 MG CAPSULE PO (08:11)
[2023-04-28] MEDS: PANTOPRAZOLE 40 MG TABLET PO (08:11)
[2023-04-28] MEDS: LOSARTAN POTASSIUM 100 MG TABLET PO (08:12)
[2023-04-28] MEDS: SERTRALINE HCL 50 MG TABLET 100 MG PO (08:12)
[2023-04-28] MEDS: cefTRIAXone 2 GM/NS 100 ML 2 GM/100 ML BAG IVPB (08:14)
[2023-04-28] MEDS: ALPRAZolam (*CRX) 0.5 MG TABLET PO (08:14)
[2023-04-28] MEDS: POTASSIUM CHLORIDE 20 MEQ ER TABLET 40 MEQ PO (08:14)
--- NOTE | 2023-04-28 08:43 | PM.DS ---
DS: Admitting Diagnosis Discharge Date Today Admitting Diagnosis DKA UTI Sepsis DS: Discharge Diagnosis Discharge Diagnosis (1) DKA (diabetic ketoacidosis): Code(s): E11.10 - Type 2 diabetes mellitus with ketoacidosis without coma Status: Acute (2) Severe sepsis: Code(s): A41.9 - Sepsis, unspecified organism; R65.20 - Severe sepsis without septic shock Status: Acute (3) Complicated UTI (urinary tract infection): Code(s): N39.0 - Urinary tract infection, site not specified Status: Acute (4) Kidney stone: Code(s): N20.0 - Calculus of kidney Status: Acute (5) BREEN (nonalcoholic steatohepatitis): Code(s): K75.81 - Nonalcoholic steatohepatitis (BREEN) Status: Acute (6) Acute infective gastroenteritis: Code(s): A09 - Infectious gastroenteritis and colitis, unspecified Status: Acute (7) Cyclic vomiting syndrome: Code(s): R11.15 - Cyclical vomiting syndrome unrelated to migraine Status: Acute (8) Hypertension: Code(s): I10 - Essential (primary) hypertension Status: Acute DS: Summary Hospital Course Reason for hospitalization: Nausea vomiting diarrhea Hospital Course: 47 years old lady with history of diabetes, psychiatric disorders, diabetic neuropathy, presented ED with a chief complaint of nausea vomiting diarrhea.? Patient has history of cyclic vomiting syndrome, and started have nausea vomiting yesterday evening.? Patient also has diarrhea there patient came to ED for evaluation, in the ED, patient found have uncontrolled glucose 568, metabolic acidosis, bicarbonate 16, anion gap 19, positive ketone hydroxybutyrate 1.21.? Patient is also found have leukocytosis to 21,600, UA shows pyuria, microscopic hematuria, CT abdomen pelvis shows no acute intra abdomen issue but is nonobstructive 2 mm right kidney stone.? Patient received insulin 10 units IV push, patient is admitted to ICU for close monitoring.? Patient denies chest pain, shortness breast, headache, focal weakness, The following medical issues have been addressed during hospitalization Sepsis Patient has leukocytosis white blood cell count [id number] with left shift, tachycardia tachypnea, resulting from UTI and acute infective gastroenteritis Start fluid resuscitation Follow-up blood culture no growth so far,, urine culture mixed genital bacteria Received ceftriaxone and Flagyl IV Change to Augmentin for 2 more days DKA with a type 1 diabetes Patient has diabetes on insulin, in the ED, patient found have uncontrolled glucose, positive ketones, metabolic acidosis, positive anion gap Receive insulin 10 units push in the ED Received fluid resuscitation Follow-up BMP q.4 Repeated blood work suggests a gap closed, Continue basal insulin at home dose Continue insulin sliding scale Patient will follow-up with endocrinology at scheduled appointment acute infective gastroenteritis Patient had abdomen pain, nausea vomiting diarrhea, patient also has a leukocytosis 21,000, possible acute infective gastroenteritis Received ceftriaxone and Flagyl IV Complicated UTI UA shows pyuria microscopic hematuria, kidney stone right-sided nonobstructive Received ceftriaxone 2 g IV daily Follow urine culture, Mixed genital steven isolated. These superficial bacteria are not indicative of a urinary tract infection. Essential hypertension On control Continue home medications Psychiatry disorder Stable Continue home medication Hospital course uneventful, patient will be discharged home today. Current today patient is afebrile, hemodynamically stable. Status at Discharge Cognitive/behavioral status at discharge: Stable Time Spent with Patient Time attestation: Total time spent providing and/or coordinating discharge services: Exam Narrative: GENERAL: Anxious, in no acute distress. Well-nourished. - EYES: EOMI. Anicteric. - HENT: Moist mucous membran
[2023-04-28 09:51] VITALS: O2SAT 97
== END 2023-04-28 10:30 | disposition home or self-care (01) | DRG 871 ==
LOC: ANHED 05:48 → ANHICU 10:39 → ANH3MEDSUR 18:41
PROVIDERS: Internal Medicine; Admitting Provider Internal Medicine; Emergency Provider Emergency Medicine; PCP Clinical Nurse Specialist; Visit Provider Hospitalist
DX: A41.9 Sepsis, unspecified organism (principal); E10.10 Type 1 diabetes mellitus with ketoacidosis without coma; N39.0 Urinary tract infection, site not specified; A09 Infectious gastroenteritis and colitis, unspecified; R65.20 Severe sepsis without septic shock; N20.0 Calculus of kidney; K75.81 Nonalcoholic steatohepatitis (NASH); R11.15 Cyclical vomiting syndrome unrelated to migraine; I10 Essential (primary) hypertension; E10.42 Type 1 diabetes mellitus with diabetic polyneuropathy; K21.9 Gastro-esophageal reflux disease without esophagitis; M79.7 Fibromyalgia; E03.9 Hypothyroidism, unspecified; K58.9 Irritable bowel syndrome, unspecified; M06.9 Rheumatoid arthritis, unspecified; G47.30 Sleep apnea, unspecified; E83.42 Hypomagnesemia; F99 Mental disorder, not otherwise specified; Z87.11 Personal history of peptic ulcer disease; Z90.49 Acquired absence of other specified parts of digestive tract; Z90.710 Acquired absence of both cervix and uterus
CPT/HCPCS: 36415; 36600; 74176; 80048; 80053; 81001; 81025; 82010; 82805; 82948; 83036; 83605; 83690; 83735; 84100; 84484; 85025; 85027; 87040; 87086; 87088; 93005; 96361; 96365; 96366; 96367; 96375; 99285; A9270; G0378; J0696; J1170; J1200; J1630; J1815; J1836; J2405; J3475; J3480; J7030; J7050

== ENCOUNTER 2023-05-08 11:59 | Emergency (ER) | payer BC, SELFPAY ==
[2023-05-08] VITALS (18 sets, daily range): BP systolic 147–172; BP diastolic 88–104; PULSE 81–97; RESP 9–22; TEMP 36.6; O2SAT 92–98
--- NOTE | ~2023-05-08 | XR_ITS ---
EXAMINATION: XR chest 2V DATE: 05/08/2023 12:38 INDICATION: Chest pain. TECHNIQUE: Frontal and lateral views of the chest were obtained. COMPARISON: Chest 2 views 01/10/2023 FINDINGS: Sensitivity is decreased by obesity. No pneumonia, pleural effusion, pneumothorax. The hear t size is normal. IMPRESSION: 1. No acute cardiopulmonary disease. Reviewed, dictated and finalized at location B.
--- NOTE | 2023-05-08 12:04 | ECG_ITS ---
Measurements Intervals [place] Rate: 94 P: 67 NE: 214 QRS: -76 QRSD: 124 T: 104 QT: 407 QTc: 511 Interpretive Statements SINUS RHYTHM WITH FIRST DEGREE AV BLOCK POSSIBLE RIGHT ATRIAL ENLARGEMENT [0.25mV P WAVE] LEFT ATRIAL ENLARGEMENT [-0.15mV P WAVE IN V1/V2] INCOMPLETE rIGHT BUNDLE BRANCH BLOCK [120+ ms QRS DURATION, UPRIGHT V1, 40+ ms S IN I/aVL/V4/V5/V6] LEFT ANTERIOR FASCICULAR BLOCK [QRS AXIS <= -45, QR IN I, RS IN II] LEFT VENTRICULAR HYPERTROPHY AND ST-T CHANGE [VOLTAGE CRITERIA PLUS ST/T ABNORMALITY] COMPARED TO ECG 04/28/2023 01:00:16 FIRST DEGREE AV BLOCK NOW PRESENT RIGHT BUNDLE-BRANCH BLOCK NOW PRESENT Electronically Signed On 05-08-2023 19:36:20 CDT by Katelyn Cox M.D.
[2023-05-08] MEDS: ASPIRIN 81 MG CHEWABLE TABLET 324 MG PO (12:13)
[2023-05-08 12:38] LABS: Basophils Absolute Auto 0.1 K/mm3 (0.0-0.1); Basophils Percent Auto 0.4 % (0.2-1.2); Eosinophils Absolute Auto 0.1 K/mm3 (0-0.3); Eosinophils Percent Auto 1.2 % (0-4.4); Hematocrit 38.5 % (37.0-47.0); Hemoglobin 12.5 g/dL (12.0-15.0); Immature Granulocyte Absolute 0.05 K/mm3 (0.00-0.031); Immature Granulocyte Percent A 0.4 % (0-0.5); Lymphocytes Absolute Auto 1.96 K/mm3 (0.9-3.2); Lymphocytes Percent Auto 17.1 % (18.3-44.2); Mean Corpuscular HGB Conc 32.5 g/dl (32-36); Mean Corpuscular Hemoglobin 27.2 pg (26-34); Mean Corpuscular Volume 83.7 fl (80-100); Mean Platelet Volume 10.2 fl (7.4-10.4); Monocytes Absolute Auto 0.5 K/mm3 (0.1-0.6); Monocytes Percent Auto 4.3 % (2.6-8.5); Neutrophils Absolute Auto 8.8 K/mm3 (1.3-6.7); Neutrophils Percent Auto 76.6 % (45.5-73.1); Platelet Count Result 239 k/mm3 (150-375); Red Cell Distribution Width 13.3 % (11.5-14.5); White Blood Count 11.5 K/mm3 (4.5-10.0)
[2023-05-08 12:48] LABS: Alanine Aminotransferase 23 U/L (6-35); Albumin Level 3.4 g/dL (3.5-5.1); Alkaline Phosphatase 130 U/L (38-126); Anion Gap 8 mmol/L (8-16); Aspartate Amino Transferase 28 U/L (14-36); Bilirubin,Total 0.4 mg/dL (0.2-1.3); Blood Urea Nitrogen 19 mg/dL (7-17); Calcium 9.6 mg/dL (8.4-10.2); Carbon Dioxide 27 mmol/L (22-30); Chloride 98 mmol/L (98-107); Estimated Glomerular Filt Rate 37; Glucose 317 mg/dL (65-110); Lipase 138 U/L (23-300); Potassium 3.1 mmol/L (3.4-5.0); Sodium 133 mmol/L (137-145)
[2023-05-08 12:49] LABS: INR 0.9; Prothrombin Time 12.4 Seconds (11.1-14.7)
[2023-05-08 12:50] LABS: Partial Thromboplastin Time 28.2 SECONDS (22.3-36.8)
[2023-05-08 13:00] LABS: Troponin I < 0.012 ng/mL (0.000-0.034)
--- NOTE | 2023-05-08 13:09 | ED.CHESTPAIN ---
HPI - Chest Pain General Chief Complaint: Chest Pain Stated Complaint: SOB, chest pain, cramping, nausea Time Seen by Provider: 05/08/23 12:03 History of Present Illness HPI narrative: Patient is a 47-year-old female with history of diabetes presenting with epigastric pain shortness of breath. Patient states that she was recently hospitalized here for DKA. States that she was discharged on Augmentin which she has since finished. States that she was doing well until yesterday when she began feeling like she did when she had DKA. She complains of epigastric pain that goes up her chest associated with nausea and decreased appetite. States she was last able to eat last night at dinner. States she had a normal bowel movement this morning. Complains of shortness of breath with exertion. No left-sided chest pain, back pain, fevers, cough, leg swelling. Denies dysuria, flank pain, hematuria. Related Data Home Medications Medication Instructions Recorded Confirmed acyclovir 400 mg tablet 400 mg PO BID 11/02/19 05/01/23 alprazolam 1 mg tablet 0.5 mg PO TID PRN Anxiety 11/02/19 05/01/23 docusate sodium 100 mg capsule 100 mg PO DAILY 11/02/19 05/01/23 (Colace) sertraline 100 mg tablet (Zoloft) 100 mg PO DAILY 11/02/19 05/01/23 zolpidem 10 mg tablet 10 mg PO QPM PRN Insomnia 11/02/19 05/01/23 prazosin 2 mg capsule (Minipress) 2 mg PO HS 07/03/20 05/01/23 coenzyme Q10 100 mg capsule (Co 100 mg PO DAILY 10/03/21 05/01/23 Q-10) gabapentin 300 mg capsule 300 mg PO TID 11/19/21 05/01/23 prednisolone acetate 1 % eye 2 drp RIGHT EYE DAILY 05/21/22 05/01/23 drops,suspension trazodone 50 mg tablet 50 mg PO HS 05/21/22 05/01/23 Humalog KwikPen Insulin See Protocol subcut TIDWMEAL 03/22/23 05/01/23 Lantus U-100 Insulin 38 units subcut BID 03/22/23 05/01/23 metoprolol succinate 50 mg 50 mg PO DAILY 03/22/23 05/01/23 tablet,extended release 24 hr atorvastatin 10 mg tablet 10 mg PO QHS 04/02/23 05/01/23 Allergies Allergy/AdvReac Type Severity Reaction Status Date / Time latex Allergy Severe itching Verified 05/08/23 12:08 metoclopramide Allergy Severe Redness of Verified 05/08/23 12:08 Skin hydralazine AdvReac Severe Itching Verified 05/08/23 12:08 Review of Systems Review of Systems: All systems reviewed & are unremarkable except as noted in HPI and below PMFSH Past Medical History Medical History Acute renal failure Anxiety Bacteremia Bronchitis Cyclic vomiting syndrome Depression Endometriosis Fatty liver Fibromyalgia Gastroesophageal reflux disease [facility] discharge follow-up Hyperlipidemia Hypertension Hypothyroidism Insulin dependent diabetes mellitus Irritable bowel syndrome BREEN (nonalcoholic steatohepatitis) Peptic ulcer Rheumatoid arthritis Sepsis Sleep apnea Traumatic hematoma of right knee Uterine fibroid Vitamin B 12 deficiency Surgical History Surgical History H/O eye surgery (~09/20/22) History of cholecystectomy History of detached retina repair History of hysterectomy History of laparoscopy Removal of uterine fibroids History of partial knee replacement Family History Family History Mother Diabetes mellitus Hypertension Family history of elevated blood lipids Sibling Family history of obesity Patient's sister is in good health Father Hypertension Family history of cardiovascular disease Other Acute myocardial infarction Family history of arthritis Family history of heart disease in male family member before age 55 Family history of thyroid disease Social History Social History Social History: Lives alone in [place]. with no children. No alcohol, tobacco, illicit substance abuse. Surrogate decision maker: Susan Mariano, sister. Co
[2023-05-08] MEDS: LACTATED RINGERS 1,000 ML 999 ML IV CONT (13:24)
[2023-05-08] MEDS: FAMOTIDINE 20 MG/2 ML VIAL IV PUSH (13:24)
[2023-05-08] MEDS: ONDANSETRON INJ 4 MG/2 ML VIAL IV PUSH ×2 (13:24→15:19)
[2023-05-08 15:03] LABS: Glucose Point of Care 186 mg/dl (65-105)
[2023-05-08] MEDS: POTASSIUM CHLORIDE 20 MEQ PACKET (FOR LIQUID) 40 MEQ PO (15:19)
[2023-05-08 15:49] LABS: Troponin I < 0.012 ng/mL (0.000-0.034)
== END 2023-05-08 16:41 | disposition home or self-care (01) ==
PROVIDERS: Emergency Provider Emergency Medicine; PCP Internal Medicine
DX: E87.6 Hypokalemia (principal); R11.0 Nausea; R10.13 Epigastric pain; F41.9 Anxiety disorder, unspecified; F32.A Depression, unspecified; K21.9 Gastro-esophageal reflux disease without esophagitis; I10 Essential (primary) hypertension; E03.9 Hypothyroidism, unspecified; E11.9 Type 2 diabetes mellitus without complications; Z79.4 Long term (current) use of insulin; K75.81 Nonalcoholic steatohepatitis (NASH); G47.30 Sleep apnea, unspecified
CPT/HCPCS: 36415; 71046; 80053; 82948; 83690; 84484; 85025; 85610; 85730; 93005; 96361; 96374; 96375; 96376; 99284; A9270; J2405; J7120

== ENCOUNTER 2023-05-13 08:45 | Outpatient (CLI) | payer BC, SELFPAY ==
[2023-05-13 13:38] LABS: Basophils Percent Auto 0.4 % (0.2-1.2); Eosinophils Absolute Auto 0.2 K/mm3 (0-0.3); Eosinophils Percent Auto 1.5 % (0-4.4); Hematocrit 40.4 % (37.0-47.0); Hemoglobin 12.7 g/dL (12.0-15.0); Immature Granulocyte Absolute 0.03 K/mm3 (0.00-0.031); Immature Granulocyte Percent A 0.3 % (0-0.5); Lymphocytes Absolute Auto 1.76 K/mm3 (0.9-3.2); Lymphocytes Percent Auto 16.2 % (18.3-44.2); Mean Corpuscular HGB Conc 31.4 g/dl (32-36); Mean Corpuscular Hemoglobin 26.7 pg (26-34); Mean Corpuscular Volume 85.1 fl (80-100); Mean Platelet Volume 10.5 fl (7.4-10.4); Monocytes Absolute Auto 0.5 K/mm3 (0.1-0.6); Monocytes Percent Auto 4.7 % (2.6-8.5); Neutrophils Absolute Auto 8.3 K/mm3 (1.3-6.7); Neutrophils Percent Auto 76.9 % (45.5-73.1); Platelet Count Result 249 k/mm3 (150-375); Red Blood Count 4.75 M/mm3 (4.2-5.4); Red Cell Distribution Width 13.5 % (11.5-14.5); White Blood Count 10.8 K/mm3 (4.5-10.0)
[2023-05-13 13:48] LABS: Albumin Level 3.1 g/dL (3.5-5.1); Anion Gap 4 mmol/L (8-16); Blood Urea Nitrogen 24 mg/dL (7-17); Calcium 9.6 mg/dL (8.4-10.2); Carbon Dioxide 27 mmol/L (22-30); Chloride 98 mmol/L (98-107); Estimated Glomerular Filt Rate 34; Glucose 390 mg/dL (65-110); Phosphorus 3.6 mg/dL (2.5-4.5); Potassium 3.4 mmol/L (3.4-5.0); Sodium 129 mmol/L (137-145)
[2023-05-13 13:49] LABS: Anion Gap 5 mmol/L (8-16); Blood Urea Nitrogen 23 mg/dL (7-17); Calcium 9.6 mg/dL (8.4-10.2); Carbon Dioxide 26 mmol/L (22-30); Chloride 97 mmol/L (98-107); Estimated Glomerular Filt Rate 32; Glucose 392 mg/dL (65-110); Magnesium 1.8 mg/dL (1.6-2.3); Potassium 3.3 mmol/L (3.4-5.0); Sodium 128 mmol/L (137-145)
[2023-05-13 13:51] LABS: Parathyroid Intact 152.2 pg/mL (7.5-53.5)
[2023-05-13 14:25] LABS: Vitamin D 25 Hydroxy < 12.8 ng/mL
== END 2023-05-13 08:46 | disposition home or self-care (01) ==
LOC: ANHGOSHLAB 08:47
PROVIDERS: Clinical Nurse Specialist; Internal Medicine Nephrology; PCP Internal Medicine; Visit Provider Internal Medicine
DX: E55.9 Vitamin D deficiency, unspecified (principal); N17.9 Acute kidney failure, unspecified; E11.22 Type 2 diabetes mellitus with diabetic chronic kidney disease; I12.9 Hypertensive chronic kidney disease with stage 1 through stage 4 chronic kidney disease, or unspecified chronic kidney disease; N18.32 Chronic kidney disease, stage 3b; N25.81 Secondary hyperparathyroidism of renal origin
CPT/HCPCS: 36415; 80048; 80069; 82306; 83735; 83970; 85025

== ENCOUNTER 2023-05-15 15:10 | Outpatient (CLI) | payer BC, SELFPAY ==
[2023-05-15 18:48] LABS: Total Protein Urine Random > 600 mg/dL
[2023-05-15 18:51] LABS: Anion Gap 4 mmol/L (8-16); Blood Urea Nitrogen 19 mg/dL (7-17); Calcium 9.5 mg/dL (8.4-10.2); Carbon Dioxide 27 mmol/L (22-30); Chloride 100 mmol/L (98-107); Estimated Glomerular Filt Rate 40; Glucose 334 mg/dL (65-110); Potassium 3.4 mmol/L (3.4-5.0); Sodium 131 mmol/L (137-145)
== END 2023-05-15 15:11 | disposition home or self-care (01) ==
LOC: ANHGOSHLAB 15:10
PROVIDERS: PCP Internal Medicine; Visit Provider Clinical Nurse Specialist
DX: E87.6 Hypokalemia (principal); I12.9 Hypertensive chronic kidney disease with stage 1 through stage 4 chronic kidney disease, or unspecified chronic kidney disease; N18.32 Chronic kidney disease, stage 3b; E11.22 Type 2 diabetes mellitus with diabetic chronic kidney disease; E55.9 Vitamin D deficiency, unspecified; N25.81 Secondary hyperparathyroidism of renal origin
CPT/HCPCS: 36415; 80048; 82570; 84156

== ENCOUNTER 2023-05-23 14:28 | Outpatient (CLI) | payer BC, SELFPAY ==
[2023-05-23 18:56] LABS: Anion Gap 11 mmol/L (8-16); Blood Urea Nitrogen 20 mg/dL (7-17); Calcium 9.8 mg/dL (8.4-10.2); Carbon Dioxide 27 mmol/L (22-30); Chloride 98 mmol/L (98-107); Estimated Glomerular Filt Rate 44; Glucose 245 mg/dL (65-110); Potassium 3.2 mmol/L (3.4-5.0); Sodium 136 mmol/L (137-145)
== END 2023-05-23 14:29 | disposition home or self-care (01) ==
LOC: ANHGOSHLAB 14:31
PROVIDERS: PCP Internal Medicine; Visit Provider Clinical Nurse Specialist
DX: E87.1 Hypo-osmolality and hyponatremia (principal)
CPT/HCPCS: 36415; 80048

== ENCOUNTER 2023-05-24 11:10 | Outpatient (CLI) | payer BC, SELFPAY ==
[2023-05-24 13:01] LABS: Hematocrit 41.7 % (37.0-47.0); Hemoglobin 13.5 g/dL (12.0-15.0); Mean Corpuscular HGB Conc 32.4 g/dl (32-36); Mean Corpuscular Hemoglobin 27.1 pg (26-34); Mean Corpuscular Volume 83.7 fl (80-100); Mean Platelet Volume 9.9 fl (7.4-10.4); Platelet Count Result 288 k/mm3 (150-375); Red Blood Count 4.98 M/mm3 (4.2-5.4); Red Cell Distribution Width 13.5 % (11.5-14.5); White Blood Count 10.7 K/mm3 (4.5-10.0)
[2023-05-24 13:21] LABS: LDL Cholesterol Direct 118 mg/dL
[2023-05-24 13:24] LABS: Alanine Aminotransferase 21 U/L (6-35); Albumin Level 3.4 g/dL (3.5-5.1); Alkaline Phosphatase 175 U/L (38-126); Anion Gap 4 mmol/L (8-16); Aspartate Amino Transferase 27 U/L (14-36); Bilirubin,Total 0.5 mg/dL (0.2-1.3); Blood Urea Nitrogen 21 mg/dL (7-17); Calcium 9.8 mg/dL (8.4-10.2); Carbon Dioxide 30 mmol/L (22-30); Chloride 98 mmol/L (98-107); Cholesterol 222 mg/dL (0-200); Estimated Glomerular Filt Rate 37; Glucose 342 mg/dL (65-110); HDL Direct 38 mg/dL; Potassium 3.5 mmol/L (3.4-5.0); Sodium 132 mmol/L (137-145); Triglycerides 460 mg/dL (<150)
[2023-05-24 13:42] LABS: Vitamin D 25 Hydroxy < 12.8 ng/mL
[2023-05-24 13:52] LABS: Creatinine Urine 87.3 mg/dL
[2023-05-24 14:47] LABS: Microalbumin Urine Random > 1140.0 mg/L (0-16.7)
[2023-05-28 13:42] LABS: C-Peptide 4.29 ng/mL (0.80-3.85)
[2023-06-05 20:21] LABS: Zinc Transporter 8 Antibody <10 U/mL (<15)
== END 2023-05-24 11:11 | disposition home or self-care (01) ==
PROVIDERS: PCP Internal Medicine
DX: E10.65 Type 1 diabetes mellitus with hyperglycemia (principal); E03.9 Hypothyroidism, unspecified; E78.5 Hyperlipidemia, unspecified; E55.9 Vitamin D deficiency, unspecified
CPT/HCPCS: 36415; 80053; 80061; 82043; 82306; 82607; 84439; 84443; 84681; 85027; 86341

== ENCOUNTER 2023-05-28 14:56 | Outpatient (CLI) | payer BC, SELFPAY ==
[2023-05-28 19:43] LABS: Anion Gap 6 mmol/L (8-16); Blood Urea Nitrogen 21 mg/dL (7-17); Calcium 9.9 mg/dL (8.4-10.2); Carbon Dioxide 24 mmol/L (22-30); Chloride 99 mmol/L (98-107); Estimated Glomerular Filt Rate 27; Glucose 372 mg/dL (65-110); Potassium 3.3 mmol/L (3.4-5.0); Sodium 129 mmol/L (137-145)
== END 2023-05-28 14:57 | disposition home or self-care (01) ==
LOC: ANHGOSHLAB 14:57
PROVIDERS: PCP Internal Medicine; Visit Provider Clinical Nurse Specialist
DX: E87.6 Hypokalemia (principal)
CPT/HCPCS: 36415; 80048

== ENCOUNTER 2023-06-02 22:05 | Emergency (ER) | payer BC, SELFPAY ==
--- NOTE | ~2023-06-02 | CT_ITS ---
CT of the Abdomen and Pelvis: Indication: Abdominal pain Technique: 2.5 mm axial scans were obtained through the abdomen and pelvis following intravenous adm inistration of 100 cc of Omnipaque 350. Dose reduction technique was used on this scan by utilizing a utomated exposure control and iterative reconstruction technique. The dose-length product (DLP) was 1 531.43 mGy-cm. COMPARISON: 04/25/2023 Findings: Scans through the lung bases are unremarkable. There is stable irregular hypodense areas in the liver, especially inferiorly and in the caudate lobe . Patient is status post cholecystectomy. Stable 2 mm nonobstructing right renal stone. The spleen, p ancreas, adrenals and left kidney are within normal limits. There are atherosclerotic calcifications of the aorta. No lymphadenopathy. No bowel obstruction or bowel wall thickening. There is no evidence to suggest acute appendicitis. Images through the pelvis were performed. Urinary bladder unremarkable. Patient is status post hyster ectomy. No adnexal mass seen. No ascites. Impression: No acute abnormality. No change from prior exam. Stable irregular areas of fatty infiltration the liver. Stable 2 mm nonobstructing right renal stone. Reviewed, dictated and finalized at location . Impression: No acute abnormality. No change from prior exam. Stable irregular areas of fatty infiltration the liver. Stable 2 mm nonobstructing right renal stone.
[2023-06-02 22:07] VITALS: BP 149/103; PULSE 107; RESP 16; TEMP 36.4; O2SAT 95
[2023-06-02 23:26] LABS: Basophils Percent Auto 0.3 % (0.2-1.2); Eosinophils Absolute Auto 0.1 K/mm3 (0-0.3); Eosinophils Percent Auto 0.4 % (0-4.4); Hematocrit 39.1 % (37.0-47.0); Hemoglobin 12.6 g/dL (12.0-15.0); Immature Granulocyte Absolute 0.09 K/mm3 (0.00-0.031); Immature Granulocyte Percent A 0.6 % (0-0.5); Lymphocytes Absolute Auto 1.59 K/mm3 (0.9-3.2); Lymphocytes Percent Auto 10.3 % (18.3-44.2); Mean Corpuscular HGB Conc 32.2 g/dl (32-36); Mean Corpuscular Hemoglobin 26.9 pg (26-34); Mean Corpuscular Volume 83.4 fl (80-100); Mean Platelet Volume 10.5 fl (7.4-10.4); Monocytes Absolute Auto 0.8 K/mm3 (0.1-0.6); Neutrophils Absolute Auto 12.9 K/mm3 (1.3-6.7); Neutrophils Percent Auto 83.4 % (45.5-73.1); Platelet Count Result 282 k/mm3 (150-375); Red Blood Count 4.69 M/mm3 (4.2-5.4); Red Cell Distribution Width 13.4 % (11.5-14.5); White Blood Count 15.5 K/mm3 (4.5-10.0)
[2023-06-02 23:38] LABS: Alanine Aminotransferase 21 U/L (6-35); Albumin Level 3.3 g/dL (3.5-5.1); Alkaline Phosphatase 139 U/L (38-126); Anion Gap 5 mmol/L (8-16); Aspartate Amino Transferase 28 U/L (14-36); Bilirubin,Total 0.4 mg/dL (0.2-1.3); Blood Urea Nitrogen 26 mg/dL (7-17); Calcium 9.5 mg/dL (8.4-10.2); Carbon Dioxide 23 mmol/L (22-30); Chloride 102 mmol/L (98-107); Estimated CRCL calculation 48 ml/min; Estimated Glomerular Filt Rate 30; Glucose 253 mg/dL (65-110); Lipase 104 U/L (23-300); Potassium 3.6 mmol/L (3.4-5.0); Sodium 130 mmol/L (137-145)
--- NOTE | 2023-06-02 23:53 | ED.GENADULT ---
HPI - General Adult General Chief complaint: Nausea/Vomiting/Diarrhea Stated complaint: N/V/D all day Time Seen by Provider: 06/02/23 22:57 Source: patient Mode of arrival: ambulatory Limitations: no limitations History of Present Illness HPI narrative: This is a 47-year-old female with PMH of cyclic vomiting, insulin-dependent diabetes, GERD, anxiety who presents to the ED with chief complaint of N/V/D beginning this afternoon. Patient states she has vomited multiple times and it has contained bilious emesis. Denies hematemesis. She states she has also had some episodes of diarrhea and loose stools. She states she always has diarrhea with her episodes of cyclic vomiting and states today is very similar. Patient reports she has pain in the epigastrium that radiates bilaterally. Reports the pain is a 7 out of 10 right now. Denies fevers, chills, chest pain, shortness of breath, leg swelling, headache, LOC. Reports surgical history of cholecystectomy and hysterectomy. Related Data Home Medications Medication Instructions Recorded Confirmed acyclovir 400 mg tablet 400 mg PO BID 11/02/19 05/24/23 alprazolam 1 mg tablet 0.5 mg PO TID PRN Anxiety 11/02/19 05/24/23 docusate sodium 100 mg capsule 100 mg PO DAILY 11/02/19 05/24/23 (Colace) sertraline 100 mg tablet (Zoloft) 100 mg PO DAILY 11/02/19 05/24/23 zolpidem 10 mg tablet 10 mg PO QPM PRN Insomnia 11/02/19 05/24/23 prazosin 2 mg capsule (Minipress) 2 mg PO HS 07/03/20 05/24/23 coenzyme Q10 100 mg capsule (Co 100 mg PO DAILY 10/03/21 05/24/23 Q-10) gabapentin 300 mg capsule 300 mg PO TID 11/19/21 05/24/23 prednisolone acetate 1 % eye 2 drp RIGHT EYE DAILY 05/21/22 05/24/23 drops,suspension trazodone 50 mg tablet 50 mg PO HS 05/21/22 05/24/23 Humalog KwikPen Insulin See Protocol subcut TIDWMEAL 03/22/23 05/24/23 Lantus U-100 Insulin 38 units subcut BID 03/22/23 05/24/23 metoprolol succinate 50 mg 50 mg PO DAILY 03/22/23 05/24/23 tablet,extended release 24 hr atorvastatin 10 mg tablet 10 mg PO QHS 04/02/23 05/24/23 Allergies Allergy/AdvReac Type Severity Reaction Status Date / Time latex Allergy Severe itching Verified 05/24/23 10:01 metoclopramide Allergy Severe Redness of Verified 05/24/23 10:01 Skin hydralazine AdvReac Severe Itching Verified 05/24/23 10:01 Review of Systems Review of Systems: All systems as dictated in [facility] Past Medical History Medical History Acute renal failure Anxiety Bacteremia Bronchitis Cyclic vomiting syndrome Depression Endometriosis Fatty liver Fibromyalgia Gastroesophageal reflux disease [facility] discharge follow-up Hyperlipidemia Hypertension Hypothyroidism Insulin dependent diabetes mellitus Irritable bowel syndrome BREEN (nonalcoholic steatohepatitis) Peptic ulcer Rheumatoid arthritis Sepsis Sleep apnea Traumatic hematoma of right knee Uterine fibroid Vitamin B 12 deficiency Surgical History Surgical History H/O eye surgery (~09/20/22) History of cholecystectomy History of detached retina repair History of hysterectomy History of laparoscopy Removal of uterine fibroids History of partial knee replacement Family History Family History Mother Diabetes mellitus Hypertension Family history of elevated blood lipids Sibling Family history of obesity Patient's sister is in good health Father Hypertension Family history of cardiovascular disease Other Acute myocardial infarction Family history of arthritis Family history of heart disease in male family member before age 55 Family history of thyroid disease Social History Social History Social History: Lives alone in [place]. with no children. No alcohol, tobacco, illicit substance abuse. Surrogate dec
[2023-06-03] MEDS: HYDROmorphone HCL INJ (*CRX) 1 MG/ML SYR 0.5 MG IV PUSH (00:10)
[2023-06-03] MEDS: SODIUM CHLORIDE 0.9% IV 1,000 ML 999 ML IV CONT ×2 (00:10)
[2023-06-03] MEDS: ONDANSETRON INJ 4 MG/2 ML VIAL IV PUSH (00:10)
[2023-06-03 00:23] VITALS: BP 150/88; PULSE 96; RESP 15; O2SAT 97
[2023-06-03 01:01] LABS: Appearance Urine Clear (Clear); Bacteria Urine None Seen /hpf; Bilirubin Urine Negative (Negative); Blood Urine 1+ (Negative); Color Urine Yellow (Yellow); Glucose Urine UA 3+ mg/dL (Negative); Ketones Urine Trace mg/dL (Negative); Leukocyte Esterase Ur Negative LEU/UL (Negative); Need Manual Microscopic Reviewed; Nitrate Urine Negative (Negative); Protein Urine 4+ mg/dL (Negative); Squamous Epithelial Cell Urine Few /hpf (Few); Urobilinogen Urine 0.2 mg/dL (<2.0); WBC Urine 0-5 /hpf
[2023-06-03 01:02] LABS: Add Urine Microscopic? YES
[2023-06-03 02:05] VITALS: BP 144/82; PULSE 98; RESP 15; O2SAT 99
== END 2023-06-03 02:05 | disposition home or self-care (01) ==
PROVIDERS: Emergency Medicine; Emergency Provider Physician Assistant; PCP Internal Medicine
DX: K52.9 Noninfective gastroenteritis and colitis, unspecified (principal); E11.9 Type 2 diabetes mellitus without complications; E78.5 Hyperlipidemia, unspecified; I10 Essential (primary) hypertension
CPT/HCPCS: 36415; 74177; 80053; 81001; 83690; 85025; 96361; 96374; 96375; 99284; J1170; J2405; J7030; Q9967

== ENCOUNTER 2023-06-06 15:09 | Outpatient (NON) | payer BC, SELFPAY | END 2023-06-06 15:10 | disposition home or self-care (01) | LOC: ANHGOSHLAB 15:10 | PROVIDERS: PCP Internal Medicine; Visit Provider Clinical Nurse Specialist | DX: N39.0 Urinary tract infection, site not specified (principal) | CPT/HCPCS: 87086; 87088 ==

== ENCOUNTER 2023-06-11 14:22 | Outpatient (CLI) | payer BC, SELFPAY ==
[2023-06-11 19:45] LABS: Anion Gap 4 mmol/L (8-16); Blood Urea Nitrogen 20 mg/dL (7-17); Calcium 9.1 mg/dL (8.4-10.2); Carbon Dioxide 29 mmol/L (22-30); Chloride 98 mmol/L (98-107); Estimated Glomerular Filt Rate 32; Glucose 319 mg/dL (65-110); Potassium 3.4 mmol/L (3.4-5.0); Sodium 131 mmol/L (137-145)
== END 2023-06-11 14:23 | disposition home or self-care (01) ==
LOC: ANHGOSHLAB 14:24
PROVIDERS: PCP Internal Medicine; Visit Provider Clinical Nurse Specialist
DX: E87.1 Hypo-osmolality and hyponatremia (principal)
CPT/HCPCS: 36415; 80048

== ENCOUNTER 2023-06-18 14:40 | Outpatient (CLI) | payer BC, SELFPAY ==
[2023-06-18 15:33] LABS: Albumin Level 3.4 g/dL (3.5-5.1); Anion Gap 5 mmol/L (8-16); Blood Urea Nitrogen 20 mg/dL (7-17); Calcium 9.4 mg/dL (8.4-10.2); Carbon Dioxide 27 mmol/L (22-30); Chloride 101 mmol/L (98-107); Estimated Glomerular Filt Rate 40; Glucose 310 mg/dL (65-110); Magnesium 1.9 mg/dL (1.6-2.3); Phosphorus 3.4 mg/dL (2.5-4.5); Potassium 3.4 mmol/L (3.4-5.0); Sodium 133 mmol/L (137-145)
== END 2023-06-18 14:41 | disposition home or self-care (01) ==
LOC: ANHLAB 14:41
PROVIDERS: PCP Internal Medicine; Visit Provider Internal Medicine Nephrology
DX: E11.22 Type 2 diabetes mellitus with diabetic chronic kidney disease (principal); E83.42 Hypomagnesemia; I12.9 Hypertensive chronic kidney disease with stage 1 through stage 4 chronic kidney disease, or unspecified chronic kidney disease; N18.32 Chronic kidney disease, stage 3b
CPT/HCPCS: 36415; 80069; 83735

== ENCOUNTER 2023-06-20 10:25 | Outpatient (CLI) | payer BC, SELFPAY ==
--- NOTE | ~2023-06-20 | XR_ITS ---
EXAMINATION: XR chest 2V 06/20/2023 10:54 INDICATION: Nausea, vomiting and external chest pain PROCEDURE: 2 view chest COMPARISON: Comparison to multiple prior studies sequentially, with oldest reviewed study dated 06/06. FINDINGS: The lungs are clear. The cardiomediastinal silhouette is within normal limits. There are no pleural effusions. There is no pneumothorax suspected. IMPRESSION: 1: NO ACUTE CARDIOPULMONARY DISEASE. Reviewed, dictated and finalized at location L.
--- NOTE | ~2023-06-20 | XR_ITS ---
XR abdomen/kub 1V 06/20/2023 10:54 INDICATION: Nausea with vomiting TECHNIQUE: KUB COMPARISON: 11/28/2017 FINDINGS: Bowel gas pattern is normal. There are cholecystectomy clips. Moderate colonic fecal loadin g. There is no evidence of free air, mass, organomegaly, ascites or obstruction. No abnormal calculi are seen. The bones appear intact. IMPRESSION: 1: No acute abdominal abnormality identified. Reviewed, dictated and finalized at location L.
[2023-06-20 11:01] LABS: Basophils Percent Auto 0.4 % (0.2-1.2); Eosinophils Absolute Auto 0.1 K/mm3 (0-0.3); Eosinophils Percent Auto 1.4 % (0-4.4); Hematocrit 39.7 % (37.0-47.0); Hemoglobin 12.2 g/dL (12.0-15.0); Hemoglobin 12.3 g/dL (12.0-15.0); Immature Granulocyte Absolute 0.03 K/mm3 (0.00-0.031); Immature Granulocyte Percent A 0.3 % (0-0.5); Lymphocytes Absolute Auto 1.69 K/mm3 (0.9-3.2); Lymphocytes Percent Auto 18.6 % (18.3-44.2); Mean Corpuscular HGB Conc 31.3 g/dl (32-36); Mean Corpuscular Hemoglobin 26.3 pg (26-34); Mean Corpuscular Hemoglobin 26.4 pg (26-34); Mean Corpuscular Volume 84.4 fl (80-100); Mean Platelet Volume 10.1 fl (7.4-10.4); Mean Platelet Volume 10.2 fl (7.4-10.4); Monocytes Absolute Auto 0.4 K/mm3 (0.1-0.6); Monocytes Percent Auto 4.8 % (2.6-8.5); Neutrophils Absolute Auto 6.8 K/mm3 (1.3-6.7); Neutrophils Percent Auto 74.5 % (45.5-73.1); Platelet Count Result 220 k/mm3 (150-375); Platelet Count Result 228 k/mm3 (150-375); Red Blood Count 4.62 M/mm3 (4.2-5.4); Red Blood Count 4.67 M/mm3 (4.2-5.4); Red Cell Distribution Width 13.2 % (11.5-14.5); White Blood Count 8.9 K/mm3 (4.5-10.0); White Blood Count 9.1 K/mm3 (4.5-10.0)
--- NOTE | 2023-06-20 11:09 | ECG_ITS ---
Measurements Intervals [place] Rate: 92 P: 71 [place]: 202 QRS: -75 QRSD: 129 T: 101 QT: 428 QTc: 530 Interpretive Statements SINUS RHYTHM POSSIBLE RIGHT ATRIAL ENLARGEMENT LEFT ATRIAL ENLARGEMENT RIGHT BUNDLE BRANCH BLOCK LEFT ANTERIOR FASCICULAR BLOCK LEFT VENTRICULAR HYPERTROPHY AND ST-T CHANGE ABNORMAL ECG COMPARED TO ECG 05/08/2023 12:07:19 NO SIGNIFICANT CHANGES Electronically Signed On 06-20-2023 11:52:43 CDT by Betito Huber D.O.
[2023-06-20 11:12] LABS: Anion Gap 7 mmol/L (8-16); Blood Urea Nitrogen 21 mg/dL (7-17); Calcium 9.5 mg/dL (8.4-10.2); Carbon Dioxide 28 mmol/L (22-30); Chloride 100 mmol/L (98-107); Estimated Glomerular Filt Rate 32; Glucose 399 mg/dL (65-110); Potassium 3.5 mmol/L (3.4-5.0); Sodium 135 mmol/L (137-145)
[2023-06-20 11:23] LABS: Troponin I 0.016 ng/mL (0.000-0.034)
[2023-06-20 12:25] LABS: Alanine Aminotransferase 16 U/L (6-35); Albumin Level 3.3 g/dL (3.5-5.1); Alkaline Phosphatase 172 U/L (38-126); Anion Gap 6 mmol/L (8-16); Aspartate Amino Transferase 26 U/L (14-36); Bilirubin,Total 0.4 mg/dL (0.2-1.3); Blood Urea Nitrogen 22 mg/dL (7-17); Calcium 9.5 mg/dL (8.4-10.2); Carbon Dioxide 29 mmol/L (22-30); Chloride 100 mmol/L (98-107); Creatine Kinase 21 U/L (30-135); Estimated Glomerular Filt Rate 34; Glucose 404 mg/dL (65-110); Potassium 3.4 mmol/L (3.4-5.0); Sodium 135 mmol/L (137-145)
== END 2023-06-20 10:26 | disposition home or self-care (01) ==
LOC: ANHLAB 10:30
PROVIDERS: PCP Clinical Nurse Specialist; Visit Provider Nurse Practitioner
DX: N18.32 Chronic kidney disease, stage 3b (principal); E87.1 Hypo-osmolality and hyponatremia; K58.1 Irritable bowel syndrome with constipation; K76.0 Fatty (change of) liver, not elsewhere classified; R06.02 Shortness of breath; R11.2 Nausea with vomiting, unspecified; R60.9 Edema, unspecified; K31.84 Gastroparesis
CPT/HCPCS: 36415; 71046; 74018; 80048; 80053; 82550; 84484; 85025; 85027; 85380; 93005

== ENCOUNTER 2023-07-02 12:39 | Outpatient (CLI) | payer BC, SELFPAY ==
--- NOTE | ~2023-07-02 | XR_ITS ---
NM lung vent and perfusion, XR chest 2V INDICATION: Dyspnea. Rule out pulmonary embolism. TECHNIQUE: The patient inhaled aerosolized 8.9 mCi xenon-133. Following ventilation scan, 4.8 mCi Tc 99m MAA was injected intravenously for perfusion images. Multiple images were then acquired. COMPARISON: Chest x-ray dated 07/02/2023 FINDINGS: The comparison chest radiograph demonstrates no pulmonary infiltrates or pleural fluid. Th e perfusion scan is normal. The aerosol in images show uniform deposition throughout the lungs. IMPRESSION: 1: Normal ventilation and perfusion images. Reviewed, dictated and finalized at location L. IMPRESSION: 1: Normal ventilation and perfusion images.
== END 2023-07-02 12:40 | disposition home or self-care (01) ==
PROVIDERS: PCP Internal Medicine; Visit Provider Internal Medicine
DX: R79.89 Other specified abnormal findings of blood chemistry (principal); R06.02 Shortness of breath; R06.00 Dyspnea, unspecified; R07.9 Chest pain, unspecified
CPT/HCPCS: 71046; 78582; A9540; A9558

== ENCOUNTER 2023-07-09 07:49 | Outpatient (CLI) | payer BC, SELFPAY ==
--- NOTE | ~2023-07-09 | NM_ITS ---
EXAM: NM gastric emptying study DATE: 07/09/2023 12:52 INDICATION: Nausea and vomiting TECHNIQUE: A gastric emptying study was performed using the methodology of Kip CERVANTES, et al. J Nucl Med 2007; 48:568-572. The patient was given a meal consisting of 2 scrambled eggs labeled with 0.983 mCi Tc-99m sulfur colloid, 2 slices of toast, two packages of jam, and approximately 120 mL of water . Simultaneous anterior and posterior 1-min images of the abdomen were obtained with the patient supi ne at multiple time points over a total period of 4 hours. The geometric mean of anterior and posteri or views was determined, and the percentage retention was calculated for each time point. COMPARISON: None. FINDINGS: Gastric retention of the radiotracer-labeled meal was 14%, 2%, and 2% at the 1-hour, 2-hour, and 4-ho ur time points, respectively. With this technique, apparent rapid gastric emptying is suggested by <3 0% gastric retention at 1 hour. Delayed gastric emptying is defined by gastric retention of >90% at 1 hour, >60% retention at 2 hours, or >10% retention at 4 hours. IMPRESSION: 1. Rapid gastric emptying. Reviewed, dictated and finalized at location A. IMPRESSION: 1. Rapid gastric emptying.
== END 2023-07-09 07:50 | disposition home or self-care (01) ==
LOC: ANHIMG 07:52
PROVIDERS: PCP Internal Medicine; Visit Provider Nurse Practitioner
DX: R11.2 Nausea with vomiting, unspecified (principal)
CPT/HCPCS: 78264; A9541

== ENCOUNTER 2023-07-18 13:52 | Outpatient (CLI) | payer BC, SELFPAY ==
[2023-07-18 14:45] LABS: Anion Gap 6 mmol/L (8-16); Blood Urea Nitrogen 20 mg/dL (7-17); Calcium 9.3 mg/dL (8.4-10.2); Carbon Dioxide 27 mmol/L (22-30); Chloride 99 mmol/L (98-107); Estimated Glomerular Filt Rate 32; Glucose 432 mg/dL (65-110); Magnesium 1.7 mg/dL (1.6-2.3); Potassium 2.9 mmol/L (3.4-5.0); Sodium 132 mmol/L (137-145)
== END 2023-07-18 13:53 | disposition home or self-care (01) ==
LOC: ANHLAB 13:53
PROVIDERS: PCP Internal Medicine; Visit Provider Internal Medicine
DX: E87.6 Hypokalemia (principal); E83.42 Hypomagnesemia
CPT/HCPCS: 36415; 80048; 83735

== ENCOUNTER 2023-07-19 22:14 | Emergency (ER) | payer BC, SELFPAY ==
--- NOTE | 2023-07-19 22:19 | PC.NURSE ---
This patient was offered a w/c and shoulder puncher went to waiting room to inform patients of wait times. Patient states I'm not gonna stay that long. I'm leaving. Patient took off wrist band and left ED before this RN could explain risks of leaving before being seen by a provider. Patient left ED with a steady gait with belongings in hand.
== END 2023-07-19 22:20 | disposition left against medical advice (07) ==
LOC: ANHED 22:23
PROVIDERS: PCP Internal Medicine
DX: Z53.21 Procedure and treatment not carried out due to patient leaving prior to being seen by health care provider (principal)
CPT/HCPCS: 99199

== ENCOUNTER 2023-07-20 02:49 | Emergency (ER) | payer BC, SELFPAY ==
--- NOTE | 2023-07-20 02:55 | ECG_ITS ---
Measurements Intervals [place] Rate: 95 P: 67 ND: 205 QRS: -77 QRSD: 130 T: 104 QT: 416 QTc: 525 Interpretive Statements SINUS RHYTHM BIATRIAL ENLARGEMENT LEFT ANTERIOR FASCICULAR BLOCK LEFT VENTRICULAR HYPERTROPHY AND ST-T CHANGE Electronically Signed On 07-21-2023 12:51:15 CDT by Teodoro Massey M.D.
[2023-07-20 03:12] LABS: Basophils Absolute Auto 0.1 K/mm3 (0.0-0.1); Basophils Percent Auto 0.6 % (0.2-1.2); Eosinophils Absolute Auto 0.2 K/mm3 (0-0.3); Eosinophils Percent Auto 1.6 % (0-4.4); Hematocrit 38.8 % (37.0-47.0); Hemoglobin 12.2 g/dL (12.0-15.0); Immature Granulocyte Absolute 0.06 K/mm3 (0.00-0.031); Immature Granulocyte Percent A 0.6 % (0-0.5); Lymphocytes Absolute Auto 2.39 K/mm3 (0.9-3.2); Mean Corpuscular HGB Conc 31.4 g/dl (32-36); Mean Corpuscular Hemoglobin 25.7 pg (26-34); Mean Corpuscular Volume 81.9 fl (80-100); Monocytes Absolute Auto 0.6 K/mm3 (0.1-0.6); Monocytes Percent Auto 5.7 % (2.6-8.5); Neutrophils Absolute Auto 7.6 K/mm3 (1.3-6.7); Neutrophils Percent Auto 69.5 % (45.5-73.1); Platelet Count Result 254 k/mm3 (150-375); Red Blood Count 4.74 M/mm3 (4.2-5.4); Red Cell Distribution Width 13.2 % (11.5-14.5); White Blood Count 10.9 K/mm3 (4.5-10.0)
[2023-07-20 03:20] VITALS: BP 196/94; PULSE 105; RESP 18; TEMP 36.6; O2SAT 96
[2023-07-20 03:27] LABS: Alanine Aminotransferase 16 U/L (6-35); Albumin Level 3.4 g/dL (3.5-5.1); Alkaline Phosphatase 149 U/L (38-126); Anion Gap 8 mmol/L (8-16); Aspartate Amino Transferase 23 U/L (14-36); Bilirubin,Total 0.5 mg/dL (0.2-1.3); Blood Urea Nitrogen 20 mg/dL (7-17); Calcium 9.8 mg/dL (8.4-10.2); Carbon Dioxide 27 mmol/L (22-30); Chloride 101 mmol/L (98-107); Estimated CRCL calculation 61 ml/min; Estimated Glomerular Filt Rate 40; Glucose 238 mg/dL (65-110); Potassium 3.1 mmol/L (3.4-5.0); Sodium 136 mmol/L (137-145)
[2023-07-20 04:54] LABS: Appearance Urine Cloudy (Clear); Bacteria Urine None Seen /hpf; Bilirubin Urine Negative (Negative); Blood Urine 1+ (Negative); Color Urine Yellow (Yellow); Glucose Urine UA 2+ mg/dL (Negative); Ketones Urine Negative (Negative); Leukocyte Esterase Ur Negative LEU/UL (Negative); Nitrate Urine Negative (Negative); Protein Urine 4+ mg/dL (Negative); Specific Grav Ur 1.016 (1.001-1.035); Squamous Epithelial Cell Urine None seen /hpf (Few); Urobilinogen Urine 0.2 mg/dL (<2.0); WBC Urine 0-5 /hpf
[2023-07-20 05:13] LABS: Add Urine Microscopic? YES
--- NOTE | 2023-07-20 06:02 | PC.NURSE ---
Pt ambulated to frontend engineer and stated I am going to leave I dont want to wait any longer Pt was encouraged to stay and be evaluated. Pt then stated I feel fine now so i'm just gonna leave Pt then ambulated out of the ED.
== END 2023-07-20 06:02 | disposition left against medical advice (07) ==
PROVIDERS: Emergency Provider Emergency Medicine; PCP Internal Medicine
DX: R06.02 Shortness of breath (principal)
CPT/HCPCS: 36415; 80053; 81001; 85025; 93005; 99199

== ENCOUNTER 2023-07-22 07:07 | Outpatient (CLI) | payer BC, SELFPAY ==
[2023-07-22 07:45] LABS: Anion Gap 4 mmol/L (8-16); Blood Urea Nitrogen 17 mg/dL (7-17); Calcium 9.2 mg/dL (8.4-10.2); Carbon Dioxide 27 mmol/L (22-30); Chloride 103 mmol/L (98-107); Estimated Glomerular Filt Rate 40; Glucose 267 mg/dL (65-110); Potassium 3.4 mmol/L (3.4-5.0); Sodium 134 mmol/L (137-145)
== END 2023-07-22 07:08 | disposition home or self-care (01) ==
LOC: ANHLAB 07:09
PROVIDERS: PCP Internal Medicine; Visit Provider Nurse Practitioner
DX: E87.6 Hypokalemia (principal)
CPT/HCPCS: 36415; 80048

== ENCOUNTER 2023-08-05 01:40 | Day surgery (SDC) | payer BC, SELFPAY ==
[2023-08-01 11:14] VITALS: BMI 41.8
[2023-08-05] VITALS (8 sets, daily range): BP systolic 163–188; BP diastolic 98–118; PULSE 96–115; RESP 17–22; TEMP 36.4; O2SAT 92–96; BMI 42.6
--- NOTE | 2023-08-05 11:23 | PM.HPGS ---
History of Present Illness History of Present Illness Consent: Risks, benefits, and alternatives have been discussed and questions answered. Patient agrees to proceed with procedure. Chief complaint: Nausea with vomiting;R upper quadrant pain;gastrop Narrative: Jennifer Londono is a 47 year old female who has been troubled with cyclical nausea and vomiting.? She also has IBS with constipation. She has underlying chronic kidney disease.? She has been in the ER 06/02/2023 for nausea and vomiting and hospitalized in April for DKA with nausea and vomiting along with sepsis, hospitalized in March as well for nausea and vomiting with dehydration.? These nausea and vomiting and dehydration episodes are chronic.? She does have poorly uncontrolled diabetes and worse with Endocrinology at [facility] and states her last hemoglobin A1c was 11. a gastric emptying scan a few years ago was within normal limits. Her last EGD 2 years ago did show some gastric retention. Biopsies showed only gastritis. She does take omeprazole 40 mg b.i.d. for acid reflux. Her weight is stable. Review of Systems Review of Systems: All systems reviewed & are unremarkable except as noted in HPI and below PMFSH Past Medical History Medical History Acute infective gastroenteritis Acute renal failure Anxiety Bacteremia Blind right eye Bronchitis Colon cancer screening Cyclic vomiting syndrome Depression Diabetes type 2, uncontrolled Endometriosis Fatty liver Fibromyalgia Gastroesophageal reflux disease Gastroparesis [facility] discharge follow-up Hyperlipidemia Hypertension Hypothyroidism Insulin dependent diabetes mellitus Irritable bowel syndrome Irritable bowel syndrome with constipation Legal blindness of right eye, as defined in [place] Migraine headache without aura Morbid obesity due to excess calories BREEN (nonalcoholic steatohepatitis) Peptic ulcer Peripheral edema Poorly controlled type 1 diabetes mellitus Rheumatoid arthritis Sepsis Sleep apnea Traumatic hematoma of right knee 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 Family History Family History Mother Diabetes mellitus Hypertension Family history of elevated blood lipids Sibling Family history of obesity Patient's sister is in good health Father Hypertension Family history of cardiovascular disease Other Acute myocardial infarction Family history of arthritis Family history of heart disease in male family member before age 55 Family history of thyroid disease Social History Social History Social History: Lives alone in [place]. with no children. No alcohol, tobacco, illicit substance abuse. Surrogate decision maker: Susan Mariano, sister. Code status: Full code. Caffeine-daily Smoking status: Never smoker Alcohol intake: never Drinks per week: 1 Alcohol use details: rarely Substance use: never Substance use type: does not use Lack of Transportation: No Lack of Food: Never True Current Housing: I Have Housing Concerned About Future Housing: No Difficulty Paying Gas/Electric Bills: No Difficulty Paying for Meds: No Currently Unemployed: No Education: Associate Degree Difficulty w/ Childcare or Family Care: No Living arrangements: with family Gender identity (if verbalized by the patient): Female Spiritual care concerns: No Meds Home Medications and Allergies Home Medications Medica
[2023-08-05 11:30] LABS: Glucose Point of Care 289 mg/dl (65-105)
--- NOTE | 2023-08-05 11:43 | WPDANESEPPF ---
Anes - Initial Pre Proc Eval Procedure: Operation Date: 08/05/23 12:30 Proposed Procedures p Esophagogastroduodenoscopy - Joce Stanford MD Date/Time: 08/05/23 11:43 Surgeon: Joce Stanford MD Pre Op Diagnosis: Nausea with vomiting;R upper quadrant pain;gastrop Patient Data Age: 47 Gender: F Height: 1.73 m Weight: 127.3 kg Allergies Allergy/AdvReac Type Severity Reaction Status Date / Time hydralazine Allergy Severe Itching Verified 08/05/23 11:08 latex Allergy Severe itching Verified 08/05/23 11:08 metoclopramide Allergy Severe Redness of Verified 08/05/23 11:08 Skin Home Medications Medication Instructions Recorded Confirmed Type acyclovir 400 mg tablet 400 mg PO BID 11/02/19 08/05/23 History alprazolam 1 mg tablet 0.5 mg PO TID PRN Anxiety 11/02/19 08/05/23 History docusate sodium 100 mg capsule 100 mg PO DAILY 11/02/19 08/01/23 History (Colace) sertraline 100 mg tablet (Zoloft) 100 mg PO DAILY 11/02/19 08/01/23 History zolpidem 10 mg tablet 10 mg PO QPM PRN Insomnia 11/02/19 08/01/23 History prazosin 2 mg capsule (Minipress) 2 mg PO HS 07/03/20 08/01/23 History coenzyme Q10 100 mg capsule (Co 100 mg PO DAILY 10/03/21 08/01/23 History Q-10) gabapentin 300 mg capsule 300 mg PO TID 11/19/21 08/01/23 History trazodone 50 mg tablet 50 mg PO HS 05/21/22 08/01/23 History silver 200 mcg/gram topical gel 1 applic topical DAILY #30 grams 05/23/22 08/01/23 Rx (Silver-Sept) Humalog KwikPen Insulin See Protocol subcut TIDWMEAL 03/22/23 08/05/23 History Lantus U-100 Insulin 38 units subcut BID 03/22/23 08/01/23 History atorvastatin 10 mg tablet 10 mg PO QHS 04/02/23 08/05/23 History cholecalciferol (vitamin D3) 1,250 1,250 mcg PO WEEKLY #8 tabs 04/02/23 08/05/23 Rx mcg (50,000 unit) tablet losartan 100 mg tablet 100 mg PO DAILY #90 tabs 05/13/23 08/01/23 Rx amitriptyline 25 mg tablet 75 mg PO HS #90 tabs 05/15/23 08/05/23 Rx ondansetron 4 mg disintegrating 4 mg PO Q8H PRN nausea and 06/03/23 08/01/23 Rx tablet vomiting #10 tabs omeprazole 40 mg capsule,delayed 40 mg PO BID #60 caps 06/20/23 08/01/23 Rx release topiramate 25 mg sprinkle capsule 25 mg PO BID #60 caps 06/24/23 08/01/23 Rx (Topamax) amlodipine 5 mg tablet 5 mg PO DAILY 1 month #30 tabs 07/10/23 08/05/23 Rx potassium chloride 10 mEq 10 meq PO DAILY #30 tabs 07/22/23 08/01/23 Rx tablet,extended release insulin aspart U-100 100 unit/mL 4 - 8 unit subcut Q4HR 07/30/23 08/01/23 History subcutaneous solution (Novolog U-100 Insulin aspart) potassium chloride 20 mEq 20 meq PO .PRN PRN LEGS CRAMPING 07/30/23 08/01/23 History tablet,extended release bumetanide 0.5 mg tablet 1 mg PO DAILY 08/01/23 08/05/23 History sumatriptan succinate 6 mg/0.5 mL 6 mg subcut ONCE PRN Migraine 08/01/23 08/01/23 History subcutaneous pen injector Headache metoprolol succinate 50 mg See Rx Instructions .Route 08/02/23 Rx tablet,extended release 24 hr .COMPLEX #90 tabs Laboratory Tests 08/05/23 11:26 POC Capillary Glucose 289 H mg/dl (65-105) Patient hx anesthesia problems: none Family hx anesthesia problems: none Results Review: All pre-operative results and documents have been reviewed as part of the pre-operative evaluation. [facility] Past Medical History Medical History (Updated 07/29/23 @ 15:08 by Jamaal Ibarra DO) Acute infective gastroenteritis Acute renal failure Anxiety Bacteremia Blind right eye Bronchitis Colon cancer screening Cyclic vomiting syndrome Depression Diabetes type 2, uncontrolled Endometriosis Fatty liver Fibromyalgia Gastroesophageal reflux disease Gastroparesis [facility] discharge follow-up Hyperlipidemia Hypertension Hypothyroidism Insulin dependent diabetes mellitus Irritable bowel syndrome Irritable bowel syndrome with constipation Legal blindness of right eye, as defined in [place] Migraine headache without aura Morbid obesity due to exces
[2023-08-05] MEDS: LACTATED RINGERS 1,000 ML 150 ML IV CONT (11:54)
[2023-08-05 12:26] LABS: Glucose Point of Care 224 mg/dl (65-105)
[2023-08-05] MEDS: LABETALOL HCL INJ 100 MG/20 ML VIAL IV PUSH ×2 (12:34→12:52)
--- NOTE | 2023-08-05 13:13 | SUR.PHASEII ---
1225- Notified Dr. Raya of patient's elevated blood pressure. Orders received for Labetalol 5mg IVP, may repeat x1 after 5 min.
== END 2023-08-05 13:10 | disposition home or self-care (01) ==
PROVIDERS: PCP Internal Medicine; Visit Provider Internal Medicine Gastroenterology
PROC: 0DJ08ZZ Inspection of Upper Intestinal Tract, Via Natural or Artificial Opening Endoscopic (ICD-10-PCS; CPT 43235; principal; 2023-08-05 12:30)
DX: R11.2 Nausea with vomiting, unspecified (principal); I12.9 Hypertensive chronic kidney disease with stage 1 through stage 4 chronic kidney disease, or unspecified chronic kidney disease; E11.22 Type 2 diabetes mellitus with diabetic chronic kidney disease; N18.9 Chronic kidney disease, unspecified; Z79.4 Long term (current) use of insulin; E78.5 Hyperlipidemia, unspecified; E03.9 Hypothyroidism, unspecified; K21.9 Gastro-esophageal reflux disease without esophagitis; M79.7 Fibromyalgia; K75.81 Nonalcoholic steatohepatitis (NASH); K58.1 Irritable bowel syndrome with constipation; M06.9 Rheumatoid arthritis, unspecified; E53.8 Deficiency of other specified B group vitamins; G47.30 Sleep apnea, unspecified; F41.9 Anxiety disorder, unspecified; F32.A Depression, unspecified; E66.01 Morbid (severe) obesity due to excess calories; Z68.41 Body mass index [BMI] 40.0-44.9, adult
CPT/HCPCS: 43235; 82948; J2001; J2704; J7120

== ENCOUNTER 2023-09-10 14:36 | Outpatient (CLI) | payer BC, SELFPAY ==
[2023-09-10 19:34] LABS: Anion Gap 7 mmol/L (8-16); Blood Urea Nitrogen 22 mg/dL (7-17); Calcium 9.8 mg/dL (8.4-10.2); Carbon Dioxide 28 mmol/L (22-30); Chloride 102 mmol/L (98-107); Estimated Glomerular Filt Rate 32; Glucose 177 mg/dL (65-110); Potassium 3.4 mmol/L (3.4-5.0); Sodium 137 mmol/L (137-145)
[2023-09-10 20:07] LABS: Appearance Urine Clear (Clear); Bacteria Urine None Seen /hpf; Bilirubin Urine Negative (Negative); Blood Urine Trace (Negative); Color Urine Yellow (Yellow); Glucose Urine UA 1+ mg/dL (Negative); Hyaline Casts Urine Present /lpf; Ketones Urine Negative (Negative); Leukocyte Esterase Ur Negative LEU/UL (Negative); Need Manual Microscopic Reviewed; Nitrate Urine Negative (Negative); Protein Urine 4+ mg/dL (Negative); Specific Grav Ur 1.017 (1.001-1.035); Squamous Epithelial Cell Urine Few /hpf (Few); Urobilinogen Urine 0.2 mg/dL (<2.0); WBC Urine 0-5 /hpf
[2023-09-10 20:10] LABS: Add Urine Microscopic? YES
== END 2023-09-10 14:37 | disposition home or self-care (01) ==
LOC: ANHGOSHLAB 14:39
PROVIDERS: PCP Internal Medicine; Visit Provider Clinical Nurse Specialist
DX: E87.6 Hypokalemia (principal); R39.9 Unspecified symptoms and signs involving the genitourinary system; E83.42 Hypomagnesemia
CPT/HCPCS: 36415; 80048; 81001; 83735

== ENCOUNTER 2024-01-24 08:23 | Outpatient (CLI) | payer BC, SELFPAY ==
[2024-01-24 19:22] LABS: Cholesterol 182 mg/dL (0-200); HDL Direct 28 mg/dL; Triglycerides 283 mg/dL (<150)
[2024-01-24 19:31] LABS: Basophils Absolute Auto 0.1 K/mm3 (0.0-0.1); Basophils Percent Auto 0.6 % (0.2-1.2); Eosinophils Absolute Auto 0.2 K/mm3 (0-0.3); Eosinophils Percent Auto 1.8 % (0-4.4); Hemoglobin 11.9 g/dL (12.0-15.0); Immature Granulocyte Absolute 0.04 K/mm3 (0.00-0.031); Immature Granulocyte Percent A 0.4 % (0-0.5); Lymphocytes Absolute Auto 1.92 K/mm3 (0.9-3.2); Lymphocytes Percent Auto 19.7 % (18.3-44.2); Mean Corpuscular HGB Conc 30.5 g/dl (32-36); Mean Corpuscular Hemoglobin 25.3 pg (26-34); Mean Platelet Volume 11.4 fl (7.4-10.4); Monocytes Absolute Auto 0.4 K/mm3 (0.1-0.6); Monocytes Percent Auto 4.5 % (2.6-8.5); Neutrophils Absolute Auto 7.1 K/mm3 (1.3-6.7); Platelet Count Result 224 k/mm3 (150-375); Red Cell Distribution Width 14.2 % (11.5-14.5); White Blood Count 9.8 K/mm3 (4.5-10.0)
[2024-01-24 19:33] LABS: LDL Cholesterol Direct 105 mg/dL
[2024-01-24 19:34] LABS: Parathyroid Intact 307.3 pg/mL (7.5-53.5)
[2024-01-24 19:42] LABS: Parathyroid Intact 326.5 pg/mL (7.5-53.5)
[2024-01-24 19:51] LABS: Albumin Level 3.2 g/dL (3.5-5.1); Anion Gap 5 mmol/L (4-12); Blood Urea Nitrogen 20 mg/dL (7-17); Calcium 9.7 mg/dL (8.4-10.2); Carbon Dioxide 27 mmol/L (22-30); Chloride 107 mmol/L (98-107); Estimated Glomerular Filt Rate 26; Glucose 148 mg/dL (65-110); Potassium 2.9 mmol/L (3.4-5.0); Sodium 139 mmol/L (137-145)
[2024-01-24 19:53] LABS: Creatinine Urine 108.3 mg/dL
[2024-01-24 19:54] LABS: Creatinine Urine 108.4 mg/dL
[2024-01-24 20:05] LABS: Vitamin D 25 Hydroxy < 12.8 ng/mL
[2024-01-24 20:10] LABS: Free T4 Free Thyroxine 0.89 ng/mL (0.78-2.19)
[2024-01-24 20:36] LABS: Microalbumin Urine Random > 1140.0 mg/L (0-16.7)
[2024-01-24 20:37] LABS: Total Protein Urine Random > 600 mg/dL
[2024-01-25 14:33] LABS: C-Peptide 2.34 ng/mL (0.80-3.85)
[2024-02-07 12:01] LABS: Alanine Aminotransferase 11 U/L (6-35); Albumin Level 3.3 g/dL (3.5-5.1); Alkaline Phosphatase 157 U/L (38-126); Aspartate Amino Transferase 16 U/L (14-36); Bilirubin,Total 0.6 mg/dL (0.2-1.3)
== END 2024-01-24 08:24 | disposition home or self-care (01) ==
LOC: ANHGOSHLAB 08:28
PROVIDERS: PCP Internal Medicine; Visit Provider Internal Medicine Nephrology
DX: E11.22 Type 2 diabetes mellitus with diabetic chronic kidney disease (principal); I12.9 Hypertensive chronic kidney disease with stage 1 through stage 4 chronic kidney disease, or unspecified chronic kidney disease; N18.32 Chronic kidney disease, stage 3b; E55.9 Vitamin D deficiency, unspecified; N25.81 Secondary hyperparathyroidism of renal origin; E04.1 Nontoxic single thyroid nodule; E78.2 Mixed hyperlipidemia
CPT/HCPCS: 36415; 80061; 80069; 82043; 82306; 82570; 82607; 83970; 84156; 84439; 84443; 84681; 85025; 86337; 86341

== ENCOUNTER 2024-01-25 11:16 | Emergency (ER) | payer BC, SELFPAY ==
[2024-01-25] VITALS (30 sets, daily range): BP systolic 150–184; BP diastolic 81–107; PULSE 69–88; RESP 14–22; TEMP 36.1–36.4; O2SAT 92–97
--- NOTE | 2024-01-25 11:24 | ECG_ITS ---
SEE SCANNED COPY FOR CONFIRMED REPORT MTDD
[2024-01-25 11:53] LABS: Glucose Point of Care 254 mg/dl (65-105)
[2024-01-25 11:58] LABS: Basophils Absolute Auto 0.1 K/mm3 (0.0-0.1); Basophils Percent Auto 0.6 % (0.2-1.2); Eosinophils Absolute Auto 0.2 K/mm3 (0-0.3); Eosinophils Percent Auto 2.2 % (0-4.4); Hematocrit 37.7 % (37.0-47.0); Hemoglobin 11.7 g/dL (12.0-15.0); Immature Granulocyte Absolute 0.03 K/mm3 (0.00-0.031); Immature Granulocyte Percent A 0.4 % (0-0.5); Lymphocytes Percent Auto 23.3 % (18.3-44.2); Mean Corpuscular Hemoglobin 25.5 pg (26-34); Mean Corpuscular Volume 82.1 fl (80-100); Mean Platelet Volume 10.2 fl (7.4-10.4); Monocytes Absolute Auto 0.5 K/mm3 (0.1-0.6); Monocytes Percent Auto 5.9 % (2.6-8.5); Neutrophils Absolute Auto 5.5 K/mm3 (1.3-6.7); Neutrophils Percent Auto 67.6 % (45.5-73.1); Platelet Count Result 205 k/mm3 (150-375); Red Blood Count 4.59 M/mm3 (4.2-5.4); Red Cell Distribution Width 14.2 % (11.5-14.5); White Blood Count 8.2 K/mm3 (4.5-10.0)
[2024-01-25] MEDS: LACTATED RINGERS 2,000 ML 999 ML IV CONT (12:05)
[2024-01-25] MEDS: POTASSIUM CHLORIDE INJ 40 MEQ in SODIUM CHLORIDE 0.9% IV 500 ML 130 MEQ IVPB (12:06)
[2024-01-25 12:07] LABS: Alanine Aminotransferase 11 U/L (6-35); Albumin Level 3.3 g/dL (3.5-5.1); Alkaline Phosphatase 151 U/L (38-126); Anion Gap 5 mmol/L (4-12); Aspartate Amino Transferase 16 U/L (14-36); Bilirubin,Total 0.5 mg/dL (0.2-1.3); Blood Urea Nitrogen 22 mg/dL (7-17); Calcium 9.6 mg/dL (8.4-10.2); Carbon Dioxide 28 mmol/L (22-30); Chloride 106 mmol/L (98-107); Estimated CRCL calculation 42 ml/min; Estimated Glomerular Filt Rate 26; Glucose 260 mg/dL (65-110); Lipase 87 U/L (23-300); Potassium 2.9 mmol/L (3.4-5.0); Sodium 139 mmol/L (137-145)
[2024-01-25] MEDS: POTASSIUM CHLORIDE 20 MEQ ER TABLET 40 MEQ PO ×2 (12:34→14:27)
[2024-01-25 14:10] LABS: Anion Gap 3 mmol/L (4-12); Blood Urea Nitrogen 19 mg/dL (7-17); Calcium 9.1 mg/dL (8.4-10.2); Carbon Dioxide 26 mmol/L (22-30); Chloride 106 mmol/L (98-107); Estimated CRCL calculation 47 ml/min; Estimated Glomerular Filt Rate 30; Glucose 236 mg/dL (65-110); Potassium 3.3 mmol/L (3.4-5.0); Sodium 135 mmol/L (137-145)
--- NOTE | 2024-01-25 14:20 | ED.RECABL ---
HPI - Recheck/Abnormal Lab/Rx General Chief Complaint: Recheck/Abnormal Lab/Rx Stated Complaint: abn labs Time Seen by Provider: 01/25/24 11:19 History of Present Illness HPI narrative: Patient with history of cyclic vomiting syndrome had labs checked yesterday and was told to go to the hospital due to low potassium. She had had a bout of diarrhea for the last few days which has now resolved. She overall feels quite tired and having muscle cramps. Related Data Home Medications Medication Instructions Recorded Confirmed acyclovir 400 mg tablet 400 mg PO BID 11/02/19 11/05/23 docusate sodium 100 mg capsule 100 mg PO DAILY 11/02/19 11/05/23 (Colace) sertraline 100 mg tablet (Zoloft) 100 mg PO DAILY 11/02/19 11/05/23 zolpidem 10 mg tablet 10 mg PO QPM PRN Insomnia 11/02/19 11/05/23 prazosin 2 mg capsule (Minipress) 2 mg PO HS 07/03/20 11/05/23 coenzyme Q10 100 mg capsule (Co 100 mg PO DAILY 10/03/21 11/05/23 Q-10) gabapentin 300 mg capsule 300 mg PO TID 11/19/21 11/05/23 trazodone 50 mg tablet 50 mg PO HS 05/21/22 11/05/23 Humalog KwikPen Insulin See Protocol subcut TIDWMEAL 03/22/23 11/05/23 Lantus U-100 Insulin 38 units subcut BID 03/22/23 11/05/23 atorvastatin 10 mg tablet 10 mg PO QHS 04/02/23 11/05/23 bumetanide 0.5 mg tablet 1 mg PO DAILY 08/01/23 11/05/23 sumatriptan succinate 6 mg/0.5 mL 6 mg subcut ONCE PRN Migraine 08/01/23 11/05/23 subcutaneous pen injector Headache alprazolam 0.5 mg tablet 0.5 mg PO TID 09/10/23 11/05/23 Allergies Allergy/AdvReac Type Severity Reaction Status Date / Time hydralazine Allergy Severe Itching Verified 11/05/23 07:35 latex Allergy Severe itching Verified 11/05/23 07:35 metoclopramide Allergy Severe Redness of Verified 11/05/23 07:35 Skin Review of Systems Review of Systems: All systems reviewed & are unremarkable except as noted in HPI and below PMFSH Past Medical History Medical History Acute infective gastroenteritis Acute renal failure Anxiety Bacteremia Blind right eye Bronchitis Colon cancer screening Cyclic vomiting syndrome Depression Diabetes type 2, uncontrolled Endometriosis Fatty liver Fibromyalgia Gastroesophageal reflux disease Gastroparesis [facility] discharge follow-up Hyperlipidemia Hypertension Hypothyroidism Insulin dependent diabetes mellitus Irritable bowel syndrome Irritable bowel syndrome with constipation Legal blindness of right eye, as defined in [place] Migraine headache without aura Morbid obesity due to excess calories BREEN (nonalcoholic steatohepatitis) Peptic ulcer Peripheral edema Poorly controlled type 1 diabetes mellitus Rheumatoid arthritis Sepsis Sleep apnea Traumatic hematoma of right knee 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 Family History Family History Mother Diabetes mellitus Hypertension Family history of elevated blood lipids Sibling Family history of obesity Patient's sister is in good health Father Hypertension Family history of cardiovascular disease Other Acute myocardial infarction Family history of arthritis Family history of heart disease in male family member before age 55 Family history of thyroid disease Social History Social History Social History: Lives alone in [place]. with no children. No alcohol, tobacco, illicit substance abuse. Surrogate decision maker: Susan Mariano, sister. Code status: Full code. Caffeine-daily Smoking st
[2024-01-25] MEDS: LACTATED RINGERS 1,000 ML 999 ML IV CONT (14:30)
== END 2024-01-25 16:44 | disposition home or self-care (01) ==
PROVIDERS: Emergency Provider Emergency Medicine; PCP Internal Medicine
DX: E87.6 Hypokalemia (principal); N17.9 Acute kidney failure, unspecified; E86.0 Dehydration; R19.7 Diarrhea, unspecified; E10.22 Type 1 diabetes mellitus with diabetic chronic kidney disease; I12.9 Hypertensive chronic kidney disease with stage 1 through stage 4 chronic kidney disease, or unspecified chronic kidney disease; N18.9 Chronic kidney disease, unspecified; K21.9 Gastro-esophageal reflux disease without esophagitis; E10.43 Type 1 diabetes mellitus with diabetic autonomic (poly)neuropathy; K31.84 Gastroparesis; E78.5 Hyperlipidemia, unspecified; E03.9 Hypothyroidism, unspecified; H54.8 Legal blindness, as defined in USA; E66.01 Morbid (severe) obesity due to excess calories; Z68.41 Body mass index [BMI] 40.0-44.9, adult; E53.8 Deficiency of other specified B group vitamins; M79.7 Fibromyalgia; M06.9 Rheumatoid arthritis, unspecified; K58.1 Irritable bowel syndrome with constipation; K75.81 Nonalcoholic steatohepatitis (NASH); Z96.659 Presence of unspecified artificial knee joint; Z87.11 Personal history of peptic ulcer disease; Z90.49 Acquired absence of other specified parts of digestive tract; Z90.710 Acquired absence of both cervix and uterus; Z79.4 Long term (current) use of insulin; I44.4 Left anterior fascicular block; I51.7 Cardiomegaly; R94.31 Abnormal electrocardiogram [ECG] [EKG]
CPT/HCPCS: 36415; 80048; 80053; 82948; 83690; 83735; 85025; 93005; 96365; 96366; 99284; A9270; J3480; J7040; J7120

== ENCOUNTER 2024-02-06 14:04 | Outpatient (CLI) | payer BC, SELFPAY ==
[2024-02-06 19:28] LABS: Anion Gap 6 mmol/L (4-12); Blood Urea Nitrogen 18 mg/dL (7-17); Calcium 9.3 mg/dL (8.4-10.2); Carbon Dioxide 28 mmol/L (22-30); Chloride 104 mmol/L (98-107); Estimated Glomerular Filt Rate 28; Glucose 317 mg/dL (65-110); Magnesium 1.7 mg/dL (1.6-2.3); Potassium 3.2 mmol/L (3.4-5.0); Sodium 138 mmol/L (137-145)
[2024-02-06 19:49] LABS: Add Urine Microscopic? YES; Appearance Urine Clear (Clear); Bacteria Urine None Seen /hpf; Bilirubin Urine Negative (Negative); Blood Urine Trace (Negative); Color Urine Yellow (Yellow); Glucose Urine UA 3+ mg/dL (Negative); Ketones Urine Negative (Negative); Leukocyte Esterase Ur Negative LEU/UL (Negative); Need Manual Microscopic Reviewed; Nitrate Urine Negative (Negative); Protein Urine 4+ mg/dL (Negative); Specific Grav Ur 1.025 (1.001-1.035); Squamous Epithelial Cell Urine Occasional /hpf (Few); WBC Urine 0-5 /hpf (0-3); pH Urine 6.5 (5.0-9.0)
== END 2024-02-06 14:05 | disposition home or self-care (01) ==
LOC: ANHGOSHLAB 14:06
PROVIDERS: PCP Internal Medicine; Visit Provider Clinical Nurse Specialist
DX: R39.9 Unspecified symptoms and signs involving the genitourinary system (principal); E87.1 Hypo-osmolality and hyponatremia; N39.0 Urinary tract infection, site not specified
CPT/HCPCS: 36415; 80048; 80076; 81001; 83735

== ENCOUNTER 2024-02-06 14:24 | Outpatient (CLI) | payer BC, SELFPAY ==
--- NOTE | ~2024-02-06 | XR_ITS ---
EXAMINATION: XR abdomen/kub 1V DATE: 02/06/2024 14:38 INDICATION: Calculus of kidney. TECHNIQUE: A supine view of the abdomen on 2 radiographs was obtained. COMPARISON: Abdomen radiographs 06/20/2023 FINDINGS: There are no dilated loops of bowel. There is a moderate volume of stool in the colon. Surg ical clips in the right upper quadrant are likely from cholecystectomy. Calcifications in the pelvis are likely phleboliths. IMPRESSION: 1. No visible urolithiasis. Reviewed, dictated and finalized at location E. IMPRESSION: 1. No visible urolithiasis.
== END 2024-02-06 14:25 ==
PROVIDERS: PCP Internal Medicine; Visit Provider Clinical Nurse Specialist
DX: N20.0 Calculus of kidney (principal)
CPT/HCPCS: 74018

== ENCOUNTER 2024-02-24 10:37 | Outpatient (CLI) | payer BC, SELFPAY ==
[2024-02-24 11:57] LABS: Anion Gap 7 mmol/L (4-12); Blood Urea Nitrogen 20 mg/dL (7-17); Calcium 9.7 mg/dL (8.4-10.2); Carbon Dioxide 24 mmol/L (22-30); Chloride 106 mmol/L (98-107); Estimated Glomerular Filt Rate 25; Glucose 233 mg/dL (65-110); Potassium 3.3 mmol/L (3.4-5.0); Sodium 137 mmol/L (137-145)
== END 2024-02-24 10:38 | disposition home or self-care (01) ==
LOC: ANHLAB 10:40
PROVIDERS: PCP Internal Medicine; Visit Provider Clinical Nurse Specialist
DX: E87.6 Hypokalemia (principal)
CPT/HCPCS: 36415; 80048

== ENCOUNTER 2024-04-01 23:40 | Emergency (ER) | payer BC, SELFPAY ==
--- NOTE | ~2024-04-01 | CT_ITS ---
Non-contrast CT scan of the Abdomen and Pelvis Clinical indication: Abdominal pain Technique: 2.5 mm axial scans were obtained through the abdomen and pelvis without intravenous or or al contrast. Dose reduction technique was used on this scan by utilizing automated exposure control a nd iterative reconstruction technique. The dose-length product (DLP) was 1716.54 mGy-cm. COMPARISON: 06/03/2023 Findings: Images through the lung bases reveal moderate pericardial effusion. There is no evidence of renal or ureteral calculi. The kidneys and the ureters are nondilated. The liver, spleen, pancreas, and adrenals appear normal. Cholecystectomy clips are present. There are atherosclerotic calcifications of the aorta. There is no evidence of bowel obstruction. Images through the pelvis were performed. There is no evidence of ascites or lymphadenopathy. Urinary bladder unremarkable. 3.7 cm left ovarian cyst present. Impression: Moderate pericardial effusion. 3.7 cm left ovarian cyst. Reviewed, dictated and finalized at [facility]. Impression: Moderate pericardial effusion. 3.7 cm left ovarian cyst.
[2024-04-01 23:57] VITALS: PULSE 79; RESP 18; TEMP 36.9; O2SAT 97
[2024-04-02 00:02] VITALS: BP 185/95; PULSE 80; RESP 18; O2SAT 98
[2024-04-02 00:17] LABS: Basophils Percent Auto 0.4 % (0.2-1.2); Eosinophils Absolute Auto 0.2 K/mm3 (0-0.3); Eosinophils Percent Auto 1.5 % (0-4.4); Hematocrit 42.7 % (37.0-47.0); Hemoglobin 13.2 g/dL (12.0-15.0); Immature Granulocyte Absolute 0.06 K/mm3 (0.00-0.031); Immature Granulocyte Percent A 0.6 % (0-0.5); Lymphocytes Absolute Auto 1.87 K/mm3 (0.9-3.2); Mean Corpuscular HGB Conc 30.9 g/dl (32-36); Mean Corpuscular Hemoglobin 25.8 pg (26-34); Mean Corpuscular Volume 83.4 fl (80-100); Mean Platelet Volume 10.6 fl (7.4-10.4); Monocytes Absolute Auto 0.5 K/mm3 (0.1-0.6); Monocytes Percent Auto 5.1 % (2.6-8.5); Neutrophils Absolute Auto 7.7 K/mm3 (1.3-6.7); Neutrophils Percent Auto 74.4 % (45.5-73.1); Platelet Count Result 227 k/mm3 (150-375); Red Blood Count 5.12 M/mm3 (4.2-5.4); Red Cell Distribution Width 14.7 % (11.5-14.5); White Blood Count 10.4 K/mm3 (4.5-10.0)
--- NOTE | 2024-04-02 00:26 | ED.NAVMDI ---
HPI - Nausea/Vomiting/Diarrhea General Chief complaint: Nausea/Vomiting/Diarrhea Stated complaint: my potassium is messed up Time Seen by Provider: 04/01/24 23:45 Source: patient Mode of arrival: ambulatory Limitations: no limitations History of Present Illness HPI Narrative: Patient is a 48 y/o female, with PMH of IDDM, fibromyalgia, GERD, RA, CVS, who presents to the ED with report of generalized weakness, nausea, vomiting. Patient reports history of cyclical vomiting syndrome and states she had an episode over the past few days. She sees GI for this and is chronically on Phenergan. She states she has not had any vomiting in the last 24 hours, but has felt generally unwell today, feels weak and fatigued /run down. Notes history of frequent electrolyte abnormalities, particularly with potassium and she feels as though her potassium is off currently. she has been able to eat and drink today but not much. Reports pain throughout her R sided abdomen. Denies fevers. Related Data Home Medications Medication Instructions Recorded Confirmed acyclovir 400 mg tablet 400 mg PO BID 11/02/19 01/30/24 docusate sodium 100 mg capsule 100 mg PO DAILY 11/02/19 01/30/24 (Colace) sertraline 100 mg tablet (Zoloft) 100 mg PO DAILY 11/02/19 01/30/24 zolpidem 10 mg tablet 10 mg PO QPM PRN Insomnia 11/02/19 01/30/24 prazosin 2 mg capsule (Minipress) 2 mg PO HS 07/03/20 01/30/24 coenzyme Q10 100 mg capsule (Co 100 mg PO DAILY 10/03/21 01/30/24 Q-10) gabapentin 300 mg capsule 300 mg PO TID 11/19/21 01/30/24 trazodone 50 mg tablet 50 mg PO HS 05/21/22 01/30/24 Humalog KwikPen Insulin See Protocol subcut TIDWMEAL 03/22/23 01/30/24 Lantus U-100 Insulin 38 units subcut BID 03/22/23 01/30/24 atorvastatin 10 mg tablet 10 mg PO QHS 04/02/23 01/30/24 bumetanide 0.5 mg tablet 1 mg PO DAILY 08/01/23 01/30/24 sumatriptan succinate 6 mg/0.5 mL 6 mg subcut ONCE PRN Migraine 08/01/23 01/30/24 subcutaneous pen injector Headache alprazolam 0.5 mg tablet 0.5 mg PO TID 09/10/23 01/30/24 Allergies Allergy/AdvReac Type Severity Reaction Status Date / Time hydralazine Allergy Severe Itching Verified 02/06/24 13:26 latex Allergy Severe itching Verified 02/06/24 13:26 metoclopramide Allergy Severe Redness of Verified 02/06/24 13:26 Skin Review of Systems Review of Systems: CONSTITUTIONAL: Denies fever, chills, or sweats. CARDIOVASCULAR: Denies chest pain RESPIRATORY: Denies cough GASTROINTESTINAL: See HPI GENITOURINARY: Denies dysuria or hematuria. NEUROLOGIC: Denies headache, dizziness, numbness, or weakness. All systems reviewed & are unremarkable except as noted in HPI and below PMFSH Past Medical History Medical History Acute infective gastroenteritis Acute renal failure Anxiety Bacteremia Blind right eye Bronchitis Colon cancer screening Cyclic vomiting syndrome Depression Diabetes type 2, uncontrolled Endometriosis Fatty liver Fibromyalgia Gastroesophageal reflux disease Gastroparesis [facility] discharge follow-up Hyperlipidemia Hypertension Hypothyroidism Insulin dependent diabetes mellitus Irritable bowel syndrome Irritable bowel syndrome with constipation Legal blindness of right eye, as defined in [place] Migraine headache without aura Morbid obesity due to excess calories BREEN (nonalcoholic steatohepatitis) Peptic ulcer Peripheral edema Poorly controlled type 1 diabetes mellitus Rheumatoid arthritis Sepsis Sleep apnea Traumatic hematoma of right knee 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
[2024-04-02 00:29] LABS: Alanine Aminotransferase 11 U/L (6-35); Alkaline Phosphatase 161 U/L (38-126); Anion Gap 9 mmol/L (4-12); Aspartate Amino Transferase 17 U/L (14-36); Bilirubin,Total 0.6 mg/dL (0.2-1.3); Blood Urea Nitrogen 26 mg/dL (7-17); Carbon Dioxide 24 mmol/L (22-30); Chloride 103 mmol/L (98-107); Estimated Glomerular Filt Rate 24; Glucose 399 mg/dL (65-110); Lipase 133 U/L (23-300); Magnesium 1.9 mg/dL (1.6-2.3); Potassium 4.1 mmol/L (3.4-5.0); Sodium 136 mmol/L (137-145)
[2024-04-02] MEDS: SODIUM CHLORIDE 0.9% IV 1,000 ML 999 ML IV CONT ×2 (00:51)
[2024-04-02] MEDS: ONDANSETRON INJ 4 MG/2 ML VIAL IV PUSH (00:51)
[2024-04-02 01:05] LABS: Appearance Urine Clear (Clear); Bacteria Urine None Seen /hpf; Bilirubin Urine Negative (Negative); Blood Urine Trace (Negative); Color Urine Yellow (Yellow); Glucose Urine UA 3+ mg/dL (Negative); Ketones Urine Negative (Negative); Leukocyte Esterase Ur Negative LEU/UL (Negative); Nitrate Urine Negative (Negative); Non Pathogenic Casts 0-2; Protein Urine 4+ mg/dL (Negative); Specific Grav Ur 1.026 (1.001-1.035); Squamous Epithelial Cell Urine Occasional /hpf (Few); WBC Urine 0-5 /hpf (0-3)
[2024-04-02 01:07] LABS: Add Urine Microscopic? YES
[2024-04-02 01:17] LABS: Amphetamine Screen Urine Negative (Negative); Barbiturate Screen Urine Negative (Negative); Benzodiazepines Screen Urine Positive (Negative); Cannabinoid Screen Urine Negative (Negative); Cocaine Screen Urine Negative (Negative); Methadone Screen Urine Negative (Negative); Opiate Screen Urine Negative (Negative); Phencyclidine Screen Urine Negative (Negative)
[2024-04-02] MEDS: ACETAMINOPHEN 500 MG TABLET 1000 MG PO (01:35)
[2024-04-02] MEDS: DICYCLOMINE HCL 10 MG CAPSULE 20 MG PO (01:35)
== END 2024-04-02 02:40 | disposition home or self-care (01) ==
PROVIDERS: Emergency Provider Physician Assistant; PCP Internal Medicine
DX: R11.15 Cyclical vomiting syndrome unrelated to migraine (principal); E86.0 Dehydration; E11.43 Type 2 diabetes mellitus with diabetic autonomic (poly)neuropathy; K31.84 Gastroparesis; E11.22 Type 2 diabetes mellitus with diabetic chronic kidney disease; I12.9 Hypertensive chronic kidney disease with stage 1 through stage 4 chronic kidney disease, or unspecified chronic kidney disease; N18.9 Chronic kidney disease, unspecified; E53.8 Deficiency of other specified B group vitamins; E03.9 Hypothyroidism, unspecified; E66.01 Morbid (severe) obesity due to excess calories; Z68.41 Body mass index [BMI] 40.0-44.9, adult; M06.9 Rheumatoid arthritis, unspecified; M79.7 Fibromyalgia; K21.9 Gastro-esophageal reflux disease without esophagitis; K58.1 Irritable bowel syndrome with constipation; K75.81 Nonalcoholic steatohepatitis (NASH); G47.30 Sleep apnea, unspecified; H54.8 Legal blindness, as defined in USA; Z96.659 Presence of unspecified artificial knee joint; Z87.11 Personal history of peptic ulcer disease; Z90.49 Acquired absence of other specified parts of digestive tract; Z90.710 Acquired absence of both cervix and uterus; Z79.899 Other long term (current) drug therapy; Z79.4 Long term (current) use of insulin
CPT/HCPCS: 36415; 74176; 80053; 80307; 81001; 83690; 83735; 85025; 96361; 96374; 99284; A9270; J2405; J7030

== ENCOUNTER 2024-05-13 14:50 | Outpatient (CLI) | payer BC, SELFPAY ==
[2024-05-13 19:54] LABS: Albumin Level 3.5 g/dL (3.5-5.1); Anion Gap 9 mmol/L (4-12); Blood Urea Nitrogen 31 mg/dL (7-17); Calcium 10.1 mg/dL (8.4-10.2); Carbon Dioxide 25 mmol/L (22-30); Chloride 104 mmol/L (98-107); Estimated Glomerular Filt Rate 21; Glucose 150 mg/dL (65-110); Phosphorus 3.6 mg/dL (2.5-4.5); Potassium 4.5 mmol/L (3.4-5.0); Sodium 138 mmol/L (137-145)
[2024-05-13 20:11] LABS: Total Protein Urine Random > 600 mg/dL
[2024-05-13 20:12] LABS: Ur Ttl Prot Creatinine Ratio > 10.53 mg/mg (0-0.20)
[2024-05-13 20:21] LABS: Influenza A QL RT-PCR Negative (Negative); Influenza B QL RT-PCR Negative (Negative); RSV RNA, RT-PCR Negative (Negative); SARS-CoV-2 RNA PCR Negative (Negative)
[2024-05-13 20:35] LABS: Vitamin D 25 Hydroxy 23.8 ng/mL
== END 2024-05-13 14:51 | disposition home or self-care (01) ==
LOC: ANHGOSHLAB 14:53
PROVIDERS: Nurse Practitioner; PCP Internal Medicine; Visit Provider Internal Medicine Nephrology
DX: E11.22 Type 2 diabetes mellitus with diabetic chronic kidney disease (principal); I12.9 Hypertensive chronic kidney disease with stage 1 through stage 4 chronic kidney disease, or unspecified chronic kidney disease; N18.32 Chronic kidney disease, stage 3b; E55.9 Vitamin D deficiency, unspecified
CPT/HCPCS: 36415; 80069; 82306; 82570; 84156; 87637

== ENCOUNTER 2024-06-01 22:00 | Emergency (ER) | payer BC, SELFPAY ==
[2024-06-01 22:23] VITALS: BP 175/87; PULSE 83; RESP 18; TEMP 36.6; O2SAT 99
[2024-06-01 22:30] LABS: Glucose Point of Care 268 mg/dl (65-105)
--- NOTE | 2024-06-01 22:30 | PC.NURSE ---
Pt was given a bag of crackers, peanut butter, pepsi can, and apple juice .
--- NOTE | 2024-06-01 23:30 | PC.NURSE ---
Pt to pr internship I think my sugar is low, i need it rechecked.
[2024-06-01 23:34] LABS: Glucose Point of Care 320 mg/dl (65-105)
[2024-06-02 01:01] LABS: Glucose Point of Care 262 mg/dl (65-105)
--- NOTE | 2024-06-02 01:02 | PC.NURSE ---
pt requesting blood sugar check. Pt asking this rn if she should stay or go. This rn informed pt that she is not allowed to give any medical guidance.
[2024-06-02 01:26] VITALS: BP 179/90; PULSE 70; RESP 16; TEMP 36.7; O2SAT 97
[2024-06-02 01:26] LABS: Glucose Point of Care 268 mg/dl (65-105)
--- NOTE | 2024-06-02 01:53 | ED.RECABL ---
HPI - Recheck/Abnormal Lab/Rx General Chief Complaint: Recheck/Abnormal Lab/Rx <Mary Harper PA-C - Last Filed: 06/02/24 03:30> Stated Complaint: took too much insulin <Mary Harper PA-C - Last Filed: 06/02/24 03:30> Time Seen by Provider: 06/02/24 01:30 <Mary Harper PA-C - Last Filed: 06/02/24 03:30> History of Present Illness HPI narrative: 48-year-old female with history of insulin-dependent diabetes, CKD, obesity presents to the emergency department for accidental insulin overdose. Patient states at 0 on 06/01/2024 she accidentally took 104 units of Lantus. She states she normally takes 72 units of Lantus and 32 units of short-acting insulin at night. States she abimael upper 72 units of Lantus and injected herself, then accidentally dropped the additional 32 units of Lantus again injected herself. She has been eating to prevent hypoglycemia. She has no other complaints and no other symptoms. <Mary Harper PA-C - Last Filed: 06/02/24 03:30> Related Data Home Medications: Home Medications Medication Instructions Recorded Confirmed acyclovir 400 mg tablet 400 mg PO BID 11/02/19 06/02/24 docusate sodium 100 mg capsule 100 mg PO DAILY 11/02/19 06/02/24 (Colace) sertraline 100 mg tablet (Zoloft) 100 mg PO DAILY 11/02/19 06/02/24 zolpidem 10 mg tablet 10 mg PO QPM PRN Insomnia 11/02/19 06/02/24 prazosin 2 mg capsule (Minipress) 2 mg PO HS 07/03/20 06/02/24 coenzyme Q10 100 mg capsule (Co 100 mg PO DAILY 10/03/21 06/02/24 Q-10) trazodone 50 mg tablet 50 mg PO HS 05/21/22 06/02/24 Humalog KwikPen Insulin See Protocol subcut TIDWMEAL 03/22/23 06/02/24 atorvastatin 10 mg tablet 20 mg PO QHS 04/02/23 06/02/24 bumetanide 0.5 mg tablet 1 mg PO DAILY 08/01/23 06/02/24 sumatriptan succinate 6 mg/0.5 mL 6 mg subcut ONCE PRN Migraine 08/01/23 06/02/24 subcutaneous pen injector Headache alprazolam 0.5 mg tablet 0.5 mg PO TID 09/10/23 06/02/24 blood-glucose sensor (FreeStyle #1 ea 05/13/24 06/02/24 Sharita 3 Sensor device) glucagon 3 mg/actuation nasal 3 mg intranasal PRN PRN 05/13/24 06/02/24 spray (Baqsimi) Hypoglycemia insulin glargine 100 unit/mL (3 38 unit subcut BID 05/13/24 06/02/24 mL) subcutaneous pen (Lantus Solostar U-100 Insulin) pantoprazole 40 mg tablet,delayed 40 mg PO PRN PRN Nausea 05/13/24 06/02/24 release pen needle, diabetic 32 gauge x #1,200 ea 05/13/24 06/02/24 (BD Mer 2nd Gen Pen Needle) pioglitazone 15 mg tablet 15 mg PO DAILY 05/13/24 06/02/24 cholecalciferol (vitamin D3) 1,250 1,250 mcg PO DAILY 06/02/24 06/02/24 mcg (50,000 unit) tablet metoprolol succinate 50 mg 50 mg PO DIRECTED 06/02/24 06/02/24 tablet,extended release 24 hr prochlorperazine maleate 10 mg 20 mg PO Q4-6H PRN Nausea 06/02/24 06/02/24 tablet <Mary Harper PA-C - Last Filed: 06/02/24 03:30> Allergies/Adverse Reactions: Allergies Allergy/AdvReac Type Severity Reaction Status Date / Time hydralazine Allergy Severe Itching Verified 05/13/24 14:05 latex Allergy Severe itching Verified 05/13/24 14:05 metoclopramide Allergy Severe Redness of Verified 05/13/24 14:05 Skin <Mary Harper PA-C - Last Filed: 06/02/24 03:30> Review of Systems Review of Systems: All systems reviewed & are unremarkable except as noted in HPI and below <Mary Harper PA-C - Last Filed: 06/02/24 03:30> [facility] Past Medical History Medical History: Medical History Acute infective gastroenteritis Acute renal failure Anxiety Bacteremia Blind right eye Bronchitis Colon cancer screening Cyclic vomiting syndrome Depression Diabetes type 2, uncontrolled Endometriosis Fatty liver Fibromyalgia Gastroesophageal reflux disease Gastroparesis [facility] discharge follow-up Hyperlipidemia Hypertension Hypothyroidism Insulin dependent diabetes mellitus Irritable bowel syndrome Irrita
[2024-06-02 02:21] LABS: BEDSIDEPREGUCG Negative
[2024-06-02 02:23] LABS: Basophils Absolute Auto 0.1 K/mm3 (0.0-0.1); Basophils Percent Auto 0.4 % (0.2-1.2); Eosinophils Absolute Auto 0.2 K/mm3 (0-0.3); Eosinophils Percent Auto 1.4 % (0-4.4); Hematocrit 39.2 % (37.0-47.0); Hemoglobin 12.3 g/dL (12.0-15.0); Immature Granulocyte Absolute 0.08 K/mm3 (0.00-0.031); Immature Granulocyte Percent A 0.7 % (0-0.5); Lymphocytes Absolute Auto 2.49 K/mm3 (0.9-3.2); Lymphocytes Percent Auto 21.6 % (18.3-44.2); Mean Corpuscular HGB Conc 31.4 g/dl (32-36); Mean Corpuscular Hemoglobin 26.7 pg (26-34); Mean Platelet Volume 9.9 fl (7.4-10.4); Monocytes Absolute Auto 0.6 K/mm3 (0.1-0.6); Monocytes Percent Auto 5.6 % (2.6-8.5); Neutrophils Absolute Auto 8.1 K/mm3 (1.3-6.7); Neutrophils Percent Auto 70.3 % (45.5-73.1); Platelet Count Result 238 k/mm3 (150-375); Red Blood Count 4.61 M/mm3 (4.2-5.4); Red Cell Distribution Width 14.3 % (11.5-14.5); White Blood Count 11.5 K/mm3 (4.5-10.0)
[2024-06-02 02:36] LABS: Alanine Aminotransferase 14 U/L (6-35); Albumin Level 3.6 g/dL (3.5-5.1); Alkaline Phosphatase 116 U/L (38-126); Anion Gap 9 mmol/L (4-12); Aspartate Amino Transferase 21 U/L (14-36); Bilirubin,Total 0.5 mg/dL (0.2-1.3); Blood Urea Nitrogen 35 mg/dL (7-17); Calcium 10.2 mg/dL (8.4-10.2); Carbon Dioxide 24 mmol/L (22-30); Chloride 102 mmol/L (98-107); Estimated CRCL calculation 35 ml/min; Estimated Glomerular Filt Rate 20; Glucose 209 mg/dL (65-110); Magnesium 1.9 mg/dL (1.6-2.3); Potassium 4.1 mmol/L (3.4-5.0); Sodium 135 mmol/L (137-145)
[2024-06-02 02:37] LABS: Add Urine Microscopic? YES; Appearance Urine Clear (Clear); Bacteria Urine 1+ /hpf; Bilirubin Urine Negative (Negative); Blood Urine Non-Hemolyzed Trace (Negative); Color Urine Yellow (Yellow); Glucose Urine UA 3+ mg/dL (Negative); Ketones Urine Negative (Negative); Leukocyte Esterase Ur Negative LEU/UL (Negative); Need Manual Microscopic Reviewed; Nitrate Urine Negative (Negative); Protein Urine 4+ mg/dL (Negative); Specific Grav Ur 1.023 (1.001-1.035); Squamous Epithelial Cell Urine Few /hpf (Few); WBC Urine 0-5 /hpf (0-3)
[2024-06-02 03:02] LABS: Glucose Point of Care 182 mg/dl (65-105)
[2024-06-02 03:30] VITALS: BP 177/95; PULSE 92; RESP 18; TEMP 36.6; O2SAT 99
--- NOTE | 2024-06-02 04:23 | PC.NURSE ---
Patient was informed by nursing staff that she would be going to the ICU. Patient stated that I will not be going into the ICU . Patient advised nursing staff that she wants to sign out AMA. ED CN and EDP Dr. Daniels notified. Dr. Daniels explained risks of leaving AMA. Patient states that she is not waiting for paperwork and will be leaving now.
== END 2024-06-02 04:25 | disposition left against medical advice (07) ==
PROVIDERS: Emergency Provider Physician Assistant; PCP Internal Medicine
DX: T38.3X1A Poisoning by insulin and oral hypoglycemic [antidiabetic] drugs, accidental (unintentional), initial encounter (principal); F41.9 Anxiety disorder, unspecified; F32.A Depression, unspecified; E11.9 Type 2 diabetes mellitus without complications; E78.5 Hyperlipidemia, unspecified; I10 Essential (primary) hypertension; E03.9 Hypothyroidism, unspecified; Z79.4 Long term (current) use of insulin
CPT/HCPCS: 36415; 80053; 81001; 81025; 82948; 83735; 84100; 85025; 99283

== ENCOUNTER 2025-01-20 08:18 | Inpatient (IN) | payer BC, SELFPAY ==
[2025-01-20] VITALS (24 sets, daily range): BP systolic 103–161; BP diastolic 48–87; PULSE 59–98; RESP 10–20; TEMP 36.7; O2SAT 96–100; BMI 43.0
--- NOTE | ~2025-01-20 | XR_ITS ---
XR chest 1V portable Ordering provider: Basim Chung MD History: 49 years Female with . SOB, edema . Comparison: January 22, 2025 FINDINGS: MEDIASTINUM: The cardiac silhouette is slightly enlarged. Congestive dayron. LUNGS: No effusions or pneumothorax. Opacification in both lung bases suggestive of pneumonia. Bilate ral interstitial thickening is seen which may indicate underlying pulmonary edema. OTHER: No free air under the diaphragm. IMPRESSION: Bibasilar pneumonia. Underlying pulmonary edema is not excluded. Cardiomegaly. Reviewed, dictated and finalized at location A.
--- NOTE | ~2025-01-20 | CT_ITS ---
CLINICAL INDICATION: Abdominal pain and diarrhea COMPARISON: 04/02/2024. TECHNIQUE: Multiple contiguous axial images of the abdomen and pelvis were performed without the admi nistration of intravenous contrast The dose-length product (DLP) was 1620.10 mGy-cm. Automated exposure control and iterative reconstruction technique were employed. FINDINGS/OBSERVATIONS: Visualized lower thorax: The bilateral lung bases are clear. The heart is of normal size, with redemonstration of a small pericardial effusion. Liver: The liver demonstrates homogeneous attenuation and is enlarged measuring 24 cm in longitudinal dimens ion. Gallbladder and biliary system: The gallbladder is surgically absent. Pancreas: Limited evaluation of the pancreas secondary to the lack of intravenous contrast. Spleen: The spleen demonstrates homogeneous attenuation and is enlarged measuring 13 cm in longitudinal dimen jessica. Kidneys: The bilateral kidneys are unremarkable, without hydronephrosis or renal calculi. Adrenal glands: Unremarkable. Gastrointestinal tract: Fecal stasis within the colon. Appendix: The air-filled appendix is of normal caliber (axial series, images 148 through 155). Vasculature: Unremarkable. Lymph nodes: Limited evaluation without intravenous contrast. Pelvic structures: The bladder is decompressed, limiting its evaluation. The uterus is either atrophic or surgically absent. The right ovary measures 4.1 x 3.0 cm and demonstrates a small exophytic well-circumscribed focus wilber suring 15 mm, possibly a right ovarian cyst, unchanged from 04/02/2024. This structure is well conceal ed behind the cecum, likely not accessible with pelvic ultrasound. Body wall and musculoskeletal: Small fat-containing umbilical hernia. No significant degenerative disease within the lower thoracic or lumbosacral spine. IMPRESSION: Hepatosplenomegaly. Otherwise, no acute findings within the abdomen or pelvis, as detailed above. Reviewed, dictated and finalized at location A.
--- NOTE | ~2025-01-20 | XR_ITS ---
XR abdomen/kub 1V Ordering provider: Carmen Crow APRN History: . vomiting . Comparison: None. FINDINGS: BOWEL: Stomach is distended with gases. Nonobstructive bowel gas pattern. ORGANOMEGALY: None. SIGNIFICANT PATHOLOGIC CALCIFICATIONS: None. OTHER: No free air is seen under the diaphragm. IMPRESSION: NO ACUTE ABDOMINAL FINDINGS. Reviewed, dictated and finalized at location A.
--- NOTE | ~2025-01-20 | CT_ITS ---
Clinical Indication: Leukocytosis, fever CT Scan of the Chest, Abdomen, and Pelvis without Contrast: Technique: Contiguous sections were acquired throughout the chest, abdomen, and pelvis without IV con trast administration. Dose reduction technique was used on this scan by utilizing automated exposure control and iterative reconstruction technique. The dose-length product (DLP) was 1922.61 mGy-cm. Comparison: 01/25/2025 Findings: [id number] pericardial effusion again present. Shotty mediastinal lymph nodes are present, georgina ecially the right paratracheal stripe and upper mediastinum, not frankly enlarged by size criteria. N o aortic aneurysm. Minimal pleural fluid present bilaterally. There is minimal patchy groundglass opacity in the lungs w ith mild interstitial thickening and mild left basilar atelectatic change.. The lungs are clear. No pulmonary nodules or infiltrates are noted. The liver, spleen, pancreas, adrenals and kidneys are within normal limits. Cholecystectomy clips are present. There are atherosclerotic calcifications of the aorta. No lymphadenopathy. No bowel obstruction or bowel wall thickening. There is no evidence to suggest acute appendicitis. Urinary bladder is unremarkable. No pelvic mass seen. No ascites. Impression: Probable minimal alveolar and interstitial pulmonary edema with minimal pleural fluid and left basila r atelectatic change. Small to moderate pericardial effusion. No significant findings in the abdomen or pelvis. Reviewed, dictated and finalized at [facility]. Impression: Probable minimal alveolar and interstitial pulmonary edema with minimal pleural fluid and left basilar atelectatic change. Small to moderate pericardial effusion. No significant findings in the abdomen or pelvis.
--- NOTE | ~2025-01-20 | XR_ITS ---
Portable chest x-ray Comparison: 01/26/2025 Clinical History: Hypoxia Findings: There is central congestive change and mild pulmonary edema pattern. Probable minimal left pleural effusion. Cardiomediastinal silhouette is stable. Bones and soft tissues are unremarkable. Impression: Central congestive change and mild pulmonary edema. Probable minimal left pleural effusion. Stable cardiomegaly. Reviewed, dictated and finalized at location . Impression: Central congestive change and mild pulmonary edema. Probable minimal left pleural effusion. Stable cardiomegaly.
--- NOTE | ~2025-01-20 | US_ITS ---
US renal BI 01/24/2025 10:56 Procedure: Realtime transabdominal ultrasound of the kidneys and bladder. Indication: Acute renal insufficiency Comparison: CT abdomen dated 01/20/2025 Findings: Renal echotexture is normal bilaterally without hydronephrosis, contour deforming mass or r enal calculus. The right kidney measures 12.1 cm and left kidney measures 11.9 cm. Bladder within no rmal limits. Impression: 1: Unremarkable renal ultrasound. No stones, masses or hydronephrosis. Reviewed, dictated and finalized at location A. Impression: 1: Unremarkable renal ultrasound. No stones, masses or hydronephrosis.
--- NOTE | ~2025-01-20 | CT_ITS ---
Non-contrast CT scan of the Abdomen and Pelvis Clinical indication: Abdominal pain Technique: 2.5 mm axial scans were obtained through the abdomen and pelvis without intravenous or or al contrast. Dose reduction technique was used on this scan by utilizing automated exposure control a nd iterative reconstruction technique. The dose-length product (DLP) was 1705.58 mGy-cm. COMPARISON: 01/20/2025 Findings: Images through the lung bases reveal mild bibasilar atelectatic changes. Small pericardial effusion present. There is no evidence of renal or ureteral calculi. The kidneys and the ureters are nondilated. The liver, spleen, pancreas, and adrenals appear normal. Cholecystectomy clips are present. There are atherosclerotic calcifications of the aorta. . There is no evidence of bowel obstruction. Images through the pelvis were performed. There is no evidence of ascites or lymphadenopathy. Urinary bladder unremarkable. No pelvic mass seen. No ascites. Impression: No acute abnormality seen. Reviewed, dictated and finalized at [facility]. Impression: No acute abnormality seen.
--- NOTE | ~2025-01-20 | XR_ITS ---
XR chest 1V portable Ordering provider: Nancy Guido MD History: 49 years Female with . chest discomfort, pain with inspiration . Comparison: July 02, 2023 FINDINGS: MEDIASTINUM: The cardiac silhouette is moderately enlarged. Congestive dayron. LUNGS: No infiltrates, effusions or pneumothorax. Bilateral interstitial thickening which may indicat e pulmonary edema versus pneumonitis. OTHER: No free air under the diaphragm. IMPRESSION: Cardiomegaly with cardiac decompensation and pulmonary edema. Superimposed pneumonitis and underlying fibrotic changes are not excluded. Reviewed, dictated and finalized at location A. IMPRESSION: Cardiomegaly with cardiac decompensation and pulmonary edema. Superimposed pneu monitis and underlying fibrotic changes are not excluded.
--- NOTE | ~2025-01-20 | XR_ITS ---
CHEST RADIOGRAPH CLINICAL HISTORY: fever . COMPARISON: Examination is compared with previous study performed 8 hours earlier, on the same day. TECHNIQUE: Single portable view of the chest. FINDINGS The cardiomediastinal silhouette is enlarged, unchanged. Low lung volumes detected bilaterally, leading to pulmonary vascular crowding. Bibasilar consolidation is suspected. The remainder of the lungs are clear. IMPRESSION: Bibasilar consolidation, as detailed above. Reviewed, dictated and finalized at location A.
--- OUTSIDE RECORDS SUMMARY | 2025-01-20 08:33 | XMS_ITS | Encounter Summary ---
Author Organization [facility] Healthcare Address [address] [place] [address] Care Team Providers Care Lithograph Designer Name Role Phone Jamaal Ibarra DO Primary Care Provider [phone]- [phone] Reason for Visit * Diagnostic Imaging (Routine) - Closed Specialty Diagnoses / Procedures Referred By Liz borrero Referred To Contact Procedures Breast Imaging Screening Outside Reference Saul Ortiz NP Phone: tel: fax: Referral ID Status Reason Start Date Expiration Date Visits Re quested Visits Authorized [id number] Closed 10/16/2022 11/15/2023 1 1 Encounter Details Date Type Department Care Team (Late st Contact Info) Description 07/08/2019 Hospital Encounter [facility] [place], [place] [id number] Social History Tobacco Use Types Packs/Day Years [...] on file Legal Sex Female 12:16 AM 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 There will be no report generated by a [facility] Radiologist. Narrative [facility] - 10/16/2022 11:48 AM INK MAKER EXAMINATION: Images For Reference Purposes Only us Saul Ortiz NP IMG MAMMO PROCEDURES Final Result [facility] documented in this encounter Visit Diagnoses Not on filedocumented in this encounter Care Teams Lithograph Designer Relationship Specialty Start Date End Date Jamaal Ibarra DO PCP - General 10/22/17 documented as of this encounter
--- OUTSIDE RECORDS SUMMARY | 2025-01-20 08:33 | XMS_ITS | Encounter Summary ---
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
--- OUTSIDE RECORDS SUMMARY | 2025-01-20 08:33 | XMS_ITS | Encounter Summary ---
Author Organization [facility] Healthcare Address [address] [place] [address] Care Team Providers Care Director Of Cloud Services Name Role Phone Jamaal Ibarra DO Primary Care Provider [phone]- [phone] Reason for Visit * Diagnostic Imaging (Routine) - Closed Specialty Diagnoses / Procedures Referred By Liz borrero Referred To Contact Procedures Breast Imaging US Outside Reference Saul Ortiz NP Phone: tel: fax: Referral ID Status Reason Start Date Expiration Date Visits Re quested Visits Authorized [id number] Closed 10/16/2022 11/15/2023 1 1 Encounter Details Date Type Department Care Team (Late st Contact Info) Description 04/29/2020 Hospital Encounter [facility] [address] [place] [id number] Social History Tobacco Use Types Packs/Day [...] on file Legal Sex Female 12:16 AM DENIER CONTROL OPERATOR Gender Identity Not on file Sexual [...] CDT) Impressions [facility] - 10/16/2022 11:47 AM DENIER CONTROL OPERATOR These images are for Reference purposes only and have not been reviewed by [facility]. There will be no report generated by a [facility] Radiologist. Narrative [facility] - 10/16/2022 11:47 AM DENIER CONTROL OPERATOR EXAMINATION: Images For Reference Purposes Only us Saul Ortiz NP IMG MAMMO PROCEDURES Final Result [facility] documented in this encounter Visit Diagnoses Not on filedocumented in this encounter Care Teams Director Of Cloud Services Relationship Specialty Start Date End Date Jamaal Ibarra DO PCP - General 10/22/17 documented as of this encounter
--- OUTSIDE RECORDS SUMMARY | 2025-01-20 08:33 | XMS_ITS | Encounter Summary ---
Author Organization [facility] Healthcare Address [address] [place] [address] Care Team Providers Care Forest Technician Name Role Phone Jamaal Ibarra DO Primary Care Provider [phone]- [phone] Reason for Visit * Diagnostic Imaging (Routine) - Closed Specialty Diagnoses / Procedures Referred By Liz borrero Referred To Contact Procedures Breast Imaging Diagnostic Outside Reference Saul Ortiz NP Phone: tel: fax: Referral ID Status Reason Start Date Expiration Date Visits Re quested Visits Authorized [id number] Closed 10/16/2022 11/15/2023 1 1 Encounter Details Date Type Department Care Team (Late st Contact Info) Description 04/29/2020 12:05 AM CDT Hospital Encounter [facility] [address] [place] [id number] Social History Tobacco Use Types Packs/Day Years [...] on file Legal Sex Female 12:16 AM CRATE BUILDER Gender Identity Not on file Sexual Orientation [...] CDT) Impressions [facility] - 10/16/2022 11:47 AM CRATE BUILDER These images are for Reference purposes only and have not been reviewed by [facility] Radiology. There will be no report generated by a [facility] Radiologist. Narrative [facility] - 10/16/2022 11:47 AM CRATE BUILDER EXAMINATION: Images For Reference Purposes Only us Saul Ortiz NP IMG MAMMO PROCEDURES Final Result [facility] documented in this encounter Visit Diagnoses Not on filedocumented in this encounter Care Teams Forest Technician Relationship Specialty Start Date End Date Jamaal Ibarar DO PCP - General 10/22/17 documented as of this encounter
--- OUTSIDE RECORDS SUMMARY | 2025-01-20 08:34 | XMS_ITS | Clinical Summary ---
Author Organization [facility] Address [address] [place] [address] Care Team Providers Care Weight Checker Name Role Phone Jamaal Ibarra DO Primary Care Provider [phone] Social History Tobacco Use Types Packs/Day Years Used Date Smoking Tobacco: Never Assessed Comments Unknown Sex and Gender Information Value Date Recorded Sex Assigned at Not on file Legal Sex Female 10:23 PM ROUGHER FOR CEMENT Gender Identity Not on file Sexual Orientation Not on file Plan of Treatment Health Maintenance Due Date Last Done Comments Cervical Cancer Screening Pa p Smear (Age 30 to 64) Every 3 Years 1974 Colorectal Cancer Screening Colonoscopy (10 Years) 1974 Annual Physical 1977 Hepatitis C 1992 Cervical Cancer Screening Pa p with HPV Testing (Age 30 to 64) Every 5 Years 2004 Cervical Cancer Screening wi th HPV 2004 Mammogram Screening 2014 DTaP, Tdap and Td Vaccines ( 2 - Td or Tdap) 07/09/2022 07/09/2012, 09/17/2005 COVID-19 Vaccine (3 - 2023-2 5 season) 2024 01/04/2021, 12/14/2020 Zoster Vaccines (1 of 2) 2024 Hepatitis B Vaccines Completed 07/28/2019, 08/21/2013, 07/09/2012 Pneumococcal Vaccine: Pediatrics (0 to 5 Years) and At-Risk Patients (6 to 49 Years) Aged Out 08/03/2022 No longer eligible b ased on patient's age to complete this topic Meningococcal B Vaccine Aged Out No l onger eligible based on patient's age to complete this topic Meningococcal Vaccine Aged Out No piotr laura eligible based on patient's age to complete this topic RSV Immunizations Under 20 Months Aged Out No longer eligible b ased on patient's age to complete [place] [address] [facility] Care Teams Weight Checker Relationship Specialty Start Date End Date Jamaal Ibarra DO [address] [place] [address] PCP - General INTERNAL MEDICINE 07/02/23
--- OUTSIDE RECORDS SUMMARY | 2025-01-20 08:34 | XMS_ITS | Referral Summary ---
Author Organization [facility] Address [address] [place] [address] Care Team Providers Care Claims Account Manager Name Role Phone Jamaal Ibarra DO Primary Care Provider [phone]- [phone] Encounters Date Type Department Care Team Description 10/23/2024 9:00 AM RETAIL SALES CLERK Office Visit [facility] Endocrinology Metabolism and Lipid [address] [facility] 13th [place] [address] [place] [address] Evelin Monzon NP Type 1 diabetes mellitus with hyperglycemia (HCC) (Primary Dx); Mixed hyperlipidemia; Diabetes mellitus with nephropathy (HCC) 10/23/2024 12:00 PM RETAIL SALES CLERK Office Visit [facility] Ophthalmology 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 04/27/20 14 Active amitriptyline (ELAVIL) 25 mg tablet TAKE 1 TABLET AT BEDTIME. 06/12/20 17 Active cyanocobalamin-co bamamide 5,000-100 mcg lozenge daily as needed 06/20/20 17 Active cyclobenzaprine (FLEXERIL) 10 mg tablet 04/27/20 14 Active metroNIDAZOLE (FLAGYL) 500 mg tablet daily as needed 10/23/19 18 Active ondansetron (ZOFRAN) 4 mg tablet take 1 tab po bid prn 06/15/[address] (PROTONIX) 40 mg EC tablet Take 1 tab po bid 06/15/20 15 Active traZODone (DESYREL) 50 mg tablet TAKE 1 TABLET AT BEDTIME. 04/27/20 14 Active zolpidem (AMBIEN) 10 mg tabletIndications :Sleep-Onset Insomnia TAKE 1 TABLET AT BEDTIME NEEDED FOR SLEEP. 04/27/20 14 Active ALPRAZolam (XANAX) 0.5 mg tablet Take 2 tablets (1 mg total) by mouth 3 (three) times a day as needed for anxiety Active lancets miscIndications:T ype 1 diabetes mellitus with hyperglycemia (HCC) Testing 8 times daily 800 each 3 10/03/20 18 Active sertraline (ZOLOFT) 100 mg tablet Take 1 tablet (100 mg total) by mouth daily Active docusate sodium (COLACE) 100 mg capsuleIndication s:constipation Take 1 capsule (100 mg total) by mouth 2 (two) times a day Active cranberry 400 mg capsule Take by mouth. Active geriatric multivitamin-min tabletIndications :One-A-Day WOmen's vitamin Take 1 tablet by mouth daily Active amLODIPine (NORVASC) 10 mg tablet Take 1 tablet (10 mg total) by mouth daily 10/04/20 20 Active metoprolol XL (TOPROL-XL) 50 mg extended release tablet 02/23/20 21 Active prazosin (MINIPRESS) 2 mg capsule Take 1 capsule (2 mg total) by mouth nightly 02/22/20 21 Active prochlorperazine (COMPAZINE) 10 mg tablet TAKE 1 TABLET BY MOUTH EVERY 4 TO 6 HOURS NEEDED FOR NAUSEA OR VOMITING 03/21/20 21 Active benzonatate (TESSALON) 100 mg capsule TAKE 1 CAPSULE BY MOUTH EVERY 8 HOURS NEEDED FOR COUGH 02/17/20 21 Active gabapentin (NEURONTIN) 300 mg capsule TAKE 1 CAPSULE(300 MG) BY MOUTH THREE TIMES DAILY 90 capsule 5 04/13/20 22 Active ketorolac (ACULAR) 0.5 % ophthalmic solution INSTILL 1 DROP IN LEFT EYE THREE TIMES DAILY. START AFTER SURGERY USE FOR 2 WEEKS 09/11/20 22 Active fluconazole (DIFLUCAN) 150 mg tablet Take 1 tablet (150 mg total) by mouth once 10/22/19 23 Active bumetanide (BUMEX) 0.5 mg tablet Take 1 tablet (0.5 mg total) by mouth daily 12/06/19 23 Active Rexulti 1 mg tablet Take 1 tablet (1 mg total) by mouth daily 05/31/20 23 Active ergocalciferol (VITAMIN D) 50,000 unit capsuleIndication s:Vitamin D deficiency Take 1 capsule (50,000 Units total) by mouth 2 (two) times a week 24 capsule 3 06/13/20 23 Active glucagon (Baqsimi) 3 mg/actuation spray,non-aerosol Indications:Type 1 diabetes mellitus with hyperglycemia (HCC) mg (one actuation) into a single nostril for low blood sugar that does not correct with oral intake or if confused; if no response, may repeat in 15 minutes using a new intranasal device. 2 each 1 01/22/20 24 Active prednisoLONE acetate (PRED FORTE) 1 % ophthalmic suspension Administer 1 drop into the right eye 4 (four) times a day 5 mL 11 08/14/20 24 Active pen needle, diabetic (BD Mer 2nd Gen Pen Needle) 32 gauge x 5/32 needleIndications :Type 1 diabetes mellitus with hyperglycemia (HCC) USE TO ADMINSTER INSULIN 5 TIMES PER DAY 200 each 10/05/20 24 Active insulin glargine (LANTUS) 100 unit/mL (3 mL) pen for injectionIndicati ons:Type 1 diabetes mellitus with hyperglycemia (HCC) INJECT 40 UNITS UNDER THE SKIN EVERY MORNING AND EVENING DAILY DIRECTED 30 mL 11 10/19/19 25 Active busPIRone (BUSPAR) 10 mg tablet 10/20/19 25 Active SEMGLEE-yfgn 100 unit/mL (3 mL) pen for injection 10/17/19 25 Active losartan (COZAAR) 100 mg tablet Take 1 tablet (100 mg total) by mouth daily 09/18/20 24 Active lubiprostone (AMITIZA) 24 mcg capsule 10/20/19 25 Active spironolactone (ALDACTONE) 25 mg tablet 10/22/19 25 Active topiramate (TOPAMAX) 25 mg capsule 09/20/20 24 Active blood-glucose meter kitIndications:Ty pe 1 diabetes mellitus with hyperglycemia (HCC) Use daily or as directed for monitoring of diabetes 1 kit 10/23/19 25 Active blood glucose diagnostic strip Use to test blood sugar 4 times per day. And to calibrate CGM as needed 50 strip 2 10/23/19 25 Active blood-glucose sensor (FreeStyle Sharita 3 Plus Sensor) device Use a new sensor every 2 weeks for glucose monitoring 2 each 10/23/19 25 Active atorvastatin (LIPITOR) 20 mg tabletIndications :Hyperlipidemia, unspecified hyperlipidemia type TAKE 1 TABLET(20 MG) BY MOUTH DAILY 90 tablet 3 11/24/19 25 Active pioglitazone (ACTOS) 15 mg tabletIndications :Type 1 diabetes mellitus with hyperglycemia (HCC) TAKE 1 TABLET(15 MG) BY MOUTH DAILY 90 tablet 1 12/16/19 25 Active insulin aspart (NovoLOG) 100 unit/mL (3 mL) pen for injectionIndicati ons:Type 1 diabetes mellitus with hyperglycemia (HCC) INJECT 18U UNDER SKIN THREE TIMES DAILY WITH MEALS, 4U WITH SNACKS PLUS SLIDING SCALE BASED ON PREMEAL SUGAR 2U/25PTS ABOVE 150. TTD 80 UNITS 75 mL 3 01/19/20 25 Active insulin aspart (NovoLOG) 100 unit/mL (3 mL) pen for injectionIndicati ons:Type 1 diabetes mellitus with hyperglycemia (HCC) Inject under the skin 18 units three times a day with meals. 4 units with snacks, plus sliding scale : three times per day AT MEAL TIMES, based on your PRE-MEAL sugar : 2 unit for every 25 points above 150. Max TDD = 80 units 75 mL 3 01/24/20 24 2024 Discontinued Active Problems Problem Noted Date Diagnosed Date Diabetes mellitus with nephropathy 09/17/2024 Vitreous hemorrhage of left eye 04/05/2024 Thyroid nodule 01/22/2024 SHANICE (obstructive sleep apnea) 01/27/2023 Mass of right breast 12/19/2022 Chronic fatigue 09/06/2021 Assessment & Plan (09/06/2021 9:49 AM RETAIL SALES CLERK): -Fatigue is most likely multifactorial as she has uncontrolled blood sugars, fibromyalgia, rheumatoid arthritis, sleep apnea (has not tolerated CPAP). She also has a history of hypothyroidism but levothyroxine was discontinued 2 years ago. -Will repeat labs to evaluate for causes of fatigue and will address any issues. -Discussed that she may need a retrial of CPAP as well. Right retinal detachment 01/11/2021 Chronic ulcer of great toe o f right foot, limited to breakdown of skin 01/11/2021 Gastroparesis 03/11/2019 Vitamin D deficiency 09/16/2017 Assessment & Plan (09/06/2021 9:45 AM RETAIL SALES CLERK): -Taking weekly Vitamin D -Will repeat Vitamin D level Type 1 diabetes mellitus with hyperglycemia 03/2017 Nocturia 06/12/2017 Gastroesophageal reflux disease 10/27/2014 Seronegative rheumatoid arthritis 10/27/2014 Swelling of hand 10/27/2014 Fibroid 10/21/2014 Fibromyalgia 06/09/2014 Hypertension 04/27/2014 Assessment & Plan (09/06/2021 9:45 AM RETAIL SALES CLERK): -BP today is 121/81 -Will continue same antihypertensive medications at this time. Hyperlipidemia 04/27/2014 Assessment & Plan (09/06/2021 9:45 AM RETAIL SALES CLERK): -Will continue statin as it is being tolerated without side effects -Will repeat lipid panel Polyarthropathy 04/27/2014 Chronic posttraumatic stress syndrome 04/27/2014 Anemia 04/27/2014 Iron deficiency anemia 08/08/2011 PCOS (polycystic ovarian syndrome) 11/10/2007 Allergic rhinitis 11/10/2007 Depression 11/10/2007 Endometriosis 11/10/2007 Resolved Problems Problem Noted Date Diagnosed Date Resolved Date Type 1 diabetes mellitus wit h other specified complication 04/29/2018 01/22/2023 Assessment & Plan (09/06/2021 9:45 AM RETAIL SALES CLERK): -Currently taking MDI -A1C on 09/06/21 was 8.4% - Dexcom download indicates pattern of persistent hyperglycemia. She denies missing any insulin doses. Will increase Tresiba to 80 units daily and will increase Novolog to 16 units with meals + correction scale. Advised to send blood sugars every 1- 2 weeks for additional insulin adjustments. -Discussed diet and activity modifications. -Advised to call with any concerns/complaints regarding glucose readings -Eye exam is up to date -Following with podiatry on a regular basis Acquired hypothyroidism 06/12/201701/05 Assessment & Plan (09/06/2021 9:07 AM RETAIL SALES CLERK): -States she has been off of LT4 for 2 years -Will repeat TFT. Immunizations Immunization Administration Dates Next Due Flucelvax Influenza Quad 07/22/2017 Hep B Vaccine 07/28/2019,08/21/2013 Hep B, Unspecified 07/09/2012 Influenza, Quadrivalent, Spl it, Preservative Free, Intramuscular 07/30/2019,01/08/2017 Influenza, Trivalent, IM (MDV) 8,07/20/2014,08/03/2013,07/09,07/22/2008 Influenza, Trivalent, Preser vative Free, Intramuscular 07/18/2015,07/03/2011 Influenza, Unspecified 07/07/2020,2016,08/03/2013,07/22 MMR 07/21/2012 PPD TEST 10/22/2006 Td, Unspecified 09/17/2005 Tdap 07/09/2012 Social History Tobacco Use Types Packs/Day Years [...] file Legal Sex Female 12:16 AM RETAIL SALES CLERK Gender Identity Not on file Sexual Orientation Not on file Last Filed Vital Signs Vital Sign Reading Time Taken Comments Blood Pressure 138/81 10/23/2024 8:12 AM RETAIL SALES CLERK Pulse 78 10/23/2024 8:12 AM RETAIL SALES CLERK Temperature 36.7 C (98.1 F) 10/23/2024 8:12 AM RETAIL SALES CLERK Respiratory Rate 18 04/04/2024 4:54 PM CDT Oxygen Saturation 95% 04/04/2024 4:54 PM CDT Inhaled Oxygen Concentration - - Weight 128.7 kg (283 lb 12.8 oz) 10/23/2024 8:12 AM RETAIL SALES CLERK Height 172.7 cm (5' 8 ) 10/23/2024 8:12 AM RETAIL SALES CLERK Body Mass Index 43.15 10/23/2024 8:12 AM RETAIL SALES CLERK Plan of Treatment Not on file Procedures Procedure Name Priority Date/Time Associated Diagnosis Comments INTRAVITREAL INJECTION, PHARMACOLOGIC AGENT - OS - LEFT EYE Routine 10/23/2024 4:31 PM RETAIL SALES CLERK 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 (HCC) OCT, RETINA - OU - BOTH EYES Routine 10/23/2024 12:46 PM RETAIL SALES CLERK Vitreous hemorrhage of left eye (HCC) POCT HEMOGLOBIN A1C Routine 10/23/2024 8 :29 AM RETAIL SALES CLERK Type 1 diabetes mellitus with hyperglycemia (HCC) POCT GLUCOSE 63218 Routine 10/23/2024 8: 20 AM RETAIL SALES CLERK Type 1 diabetes mellitus with hyperglycemia (HCC) EGFR STAT 04/04/2024 5:59 PM CDT LIPID PANEL Routine 01/24/2024 Mixed hyperlipidemia ALBUMIN CREATININE RATIO, URINE Routine 01/24/2024 Type 1 diabetes mellitus with hyperglycemia (HCC) TSH Routine 01/24/2024 Thyroid nodule DIAGNOSTIC MAMMOGRAM BILATERAL W FELICIA Schedule Routine, Read Routine (OP Routine) 01/11/2023 11:17 AM CDT Mass of left breast, unspecified quadrant HEPATITIS PANEL, ACUTE Routine 07/06/2021 12:52 PM CDT from Last 3 Months or Most Recently Relevant to Health Maintenance Results * Intravitreal Injection, Pharmacologic Agent - OS - Left Eye (10/23/2024 4:31 PM RETAIL SALES CLERK) Anatomical Region Laterality Modality Head Other Narrative 10/23/2024 4:31 PM RETAIL SALES CLERK Time Out Informed consent was obtained after all risks, benefits and alternatives were explained to the patient. The patient understood, agreed and wished to proceed. Timeout was completed verifying the patient, procedure, laterality and allergies. Anesthesia Subconjunctival anesthesia was used. Anesthetic medications included Lidocaine 2%, Proparacaine 0.5%. Intravitreal Injection, Pharmacologic Agent Preparation included 5% betadine to ocular surface. A 30 gauge needle was used. Pharmaceutical Medication: 2 mg aflibercept syringe 2 mg/0.05 mL Route: intravitreal, Site: Left Eye [facility]: [id number], Lot: [id number], Expiration date: 06/06/2025, Waste: 0 mL The medication administered today was not supplied by the patient or insurance. The medication administered today was not a sample. Post-op Post injection exam found visual acuity is at least hand motion. there were no complications during today's treatment. The patient received written and verbal post procedure care education. Post injection medications were not given. The attending physician was present for the entire procedure. Notes Consent for Eylea OS signed 05/08/2024.iM AC tap 0.1 mL us Steven Edmonds MD OPHTH CLINIC PROCEDURES Fi nal Result * OCT, Retina - OU - Both Eyes (10/23/2024 12:46 PM RETAIL SALES CLERK) Anatomical Region Laterality Modality Head Optical Coherenc e Tomography Narrative 10/23/2024 12:46 PM RETAIL SALES CLERK Right Eye Scan locations included subfoveal. Left Eye Quality was good. Scan locations included subfoveal. Notes OD: no signal OS: no CME; partial VMA; no VH; no central DME Steven Edmonds MD OPHTH TOMOGRAPHY Final Res ult * POCT hemoglobin A1c (10/23/2024 8:29 AM RETAIL SALES CLERK) Hemoglobin A1C, POC 9.1 4.0 - 5.6 % Blood 10/23/2024 8:29 AM RETAIL SALES CLERK Evelin Monzon ADJUNCT PHILOSOPHY FACULTY POINT OF CARE TEST ORDERA BLES Final Result * POCT glucose (10/23/2024 8:20 AM RETAIL SALES CLERK) Glucose Blood, POC 250 mg/dL Blood 10/23/2024 8:20 AM RETAIL SALES CLERK Evelin Monzon NP POINT OF CARE TEST ORDERA BLES Final Result * (ABNORMAL) eGFR (04/04/2024 5:59 PM CDT) eGFR 22(L) >=60 mL/min/1. 73 m2 Comment: Interpretive Data Reference Interval Normal >/= 90 mL/min/1.73m2 Mildly decreased* 60 - 89 mL/min/1.73m2 Mildly to moderately decreased 45 - 59 mL/min/1.73m2 Moderately to severely decreased 30 - 44 mL/min/1.73m2 Severely decreased 15 - 29 mL/min/1.73m2 Kidney Failure < 15 mL/min/1.73m2 *Relative to young adult level Estimated glomerular filtration rate is determined by the 2020 CKD-EPI equation recommended by the National Kidney Foundation (A Unifying Approach to GFR Estimation: Recommendations of the NKF-ASK Task Force on Reassessing the Inclusion of Race in Diagnosing Kidney Disease, JASN 2020). The CKD-EPI equation should not be used for patients with unstable renal function and has not been validated in children and those over 70. Current interpretive data was last reviewed 2021. Blood 04/04/2024 5:59 PM CDT 04/04/2024 6:15 PM CDT us Jay Dorman MD LAB BLOOD ORDERABLES Final Result Performing Organization Address City/[facility]/ZIP Co de Phone Number [facility] Department [place] [address] * Albumin Creatinine Ratio, Urine (01/24/2024) Urine us Sarah Haskins MD LAB URINE ORDERABLES Final Resu lt EXTERNAL LAB * TSH (01/24/2024) Blood Sarah Haskins MD LAB BLOOD ORDERABLES Final Resu lt EXTERNAL LAB * Lipid panel (01/24/2024) Blood Sarah Haskins MD LAB BLOOD ORDERABLES Final Resu lt Performing Organization Address [facility]/ZIP Co de Phone Number EXTERNAL LAB * Diagnostic Mammogram Bilateral W Felicia (01/11/2023 11:17 AM CDT) Anatomical Region Laterality Modality Breast Bilateral Mammography 01/11/2023 11:5 8 AM CDT Impressions 01/11/2023 11:58 AM CDT Simple cysts left breast, bilateral dense fibroglandular breast parenchyma OVERALL FINAL ASSESSMENT: BI-RADS Category 2: Benign. RECOMMENDATION: 1. Annual screening mammography is recommended. 2. Clinical follow-up is recommended. Electronically signed by: Teresa Ortiz M.D. Narrative 01/11/2023 11:58 AM CDT EXAMINATION: BILATERAL DIGITAL DIAGNOSTIC MAMMOGRAM INCLUDING CAD AND BILATERAL DIGITAL BREAST TOMOSYNTHESIS Limited ultrasound of the both breasts HISTORY: Palpable mass in the both breasts by patient. Palpable mass in the right breast at 11-12 o'clock 3 cm from the nipple and in the left breast 9:00 4 to 5 cm from the nipple by physician COMPARISON: Outside exams from [place] 09/13/2022to 07/08/2019 TECHNIQUE: Full field digital mammographic views of BOTH breasts were performed, including computer aided detection (CAD) and BILATERAL digital breast tomosynthesis (DBT). BREAST PARENCHYMAL COMPOSITION: There are scattered areas of fibroglandular density. MAMMOGRAM FINDINGS: There is no suspicious abnormality in either breast since previous examinations. In the area of palpable abnormality in the right lower breast and left upper breast there is dense fibroglandular breast parenchyma. Bilateral limited breast ultrasound Real-time examination of the both breasts is performed in the area of palpable abnormality, right breast at 11-12 o'clock 3 cm from the nipple and left breast 9:00 4 to 5 cm from the nipple. Right breast At 11-12 o'clock 4 to 5 cm from the nipple there is dense fibroglandular breast parenchyma without any evidence of solid or a cystic mass. At 3:00 10 cm from the nipple in the palpable area of abnormality by patient there is a dense fibroglandular breast parenchyma. Left breast At 9:00 5 cm from the nipple there is 0.5 cm x 0.4 cm x 0.4 cm anechoic, avascular mass suggestive of a simple cyst. At 12:00 palpable area of abnormality by the patient there is a dense fibroglandular breast parenchyma without any evidence off solid or a cystic mass suggest follow-up yearly mammogram. Findings were discussed with the patient after completion of the exam and her questions were answered. us Saul Ortiz NP IMG MAMMO PROCEDURES Final Result * Hepatitis panel, acute (07/06/2021 12:52 PM CDT) Hep A IgM Negative Negative [facility] - 01 HepBsAg Negative Negative [facility] - 01 Hep B core IgM Negative Negative [facility] - 01 Hep C Ab <0.1 0.0 - 0.9 s/co ratio [facility] - 01 07/06/2021 12:5 2 PM CDT 07/06/2021 Narrative [facility] - 07/12/2021 5:08 PM CDT Performed at: [facility] [id number] Lead Engineer: Link Myles PhD, Phone: [phone] us Lorrie Saavedra MD LAB MICROBIOLOGY - GENERAL ORD ERABLES Final Result [facility] - 01 from Last 3 Months or Most Recently Relevant to Health Maintenance Insurance [place] [employer] [place] [address] Care Teams Claims Account Manager Relationship Specialty Start Date End Date Jamaal Ibarra DO PCP - General 10/22/17
--- OUTSIDE RECORDS SUMMARY | 2025-01-20 08:34 | XMS_ITS | Encounter Summary ---
Author Organization [employer] [facility] Address [address] [place] [address] Care Team Providers Care [employer] Name Role Phone Jamaal Ibarra DO Primary Care Provider Encounter Details Date Type Department Care Team (Latest Contact Info) Description 03/23/2002 Outpatient Historical [facility] [place] [address] [place] [address] MENSTRUAL DISORDER NEC (Primary Dx) Social History Tobacco Use Types Packs/Day Years Used Date Smoking Tobacco: Never Assessed Comments Unknown Sex and Gender Information Value Date Recorded Sex Assigned at Not on file Legal Sex Female 3:50 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
--- OUTSIDE RECORDS SUMMARY | 2025-01-20 08:34 | XMS_ITS | Encounter Summary ---
Author Organization [facility] Healthcare Address [address] [place] [address] Care Team Providers Care Labor Mediator Name Role Phone Jamaal Ibarra DO Primary Care Provider [phone]- [phone] Reason for Visit * Diagnostic Imaging (Routine) - Closed Specialty Diagnoses / Procedures Referred By Liz borrero Referred To Contact Procedures Breast Imaging Diagnostic Outside Reference Saul Ortiz NP Phone: tel: fax: Referral ID Status Reason Start Date Expiration Date Visits Re quested Visits Authorized [id number] Closed 10/16/2022 11/15/2023 1 1 Encounter Details Date Type Department Care Team (Late st Contact Info) Description 07/15/2019 12:05 AM CDT Hospital Encounter [facility] [address] [place] [id number] Social History Tobacco Use Types Packs/Day Years [...] on file Legal Sex Female 12:16 AM FAMILY HEALTH NURSE PRACTITIONER Gender Identity Not on file Sexual Orientation [...] CDT) Impressions [facility] - 10/16/2022 11:47 AM FAMILY HEALTH NURSE PRACTITIONER These images are for Reference purposes only and have not been reviewed by [facility] Radiology. There will be no report generated by a [facility] Radiologist. Narrative [facility] - 10/16/2022 11:47 AM FAMILY HEALTH NURSE PRACTITIONER EXAMINATION: Images For Reference Purposes Only us Saul Ortiz NP IMG MAMMO PROCEDURES Final Result [facility] documented in this encounter Visit Diagnoses Not on filedocumented in this encounter Care Teams Labor Mediator Relationship Specialty Start Date End Date Jamaal Ibarra DO PCP - General 10/22/17 documented as of this encounter
--- OUTSIDE RECORDS SUMMARY | 2025-01-20 08:34 | XMS_ITS | Encounter Summary ---
Author Organization [facility] Address [address] [place] [address] Phone Care Team Providers Care Pharmacognosist Name Role Phone Jamaal Ibarra DO Primary Care Provider +1- [phone] Encounter Details Date Type Department Care Team (Late st Contact Info) Description 08/03/[address] 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
--- OUTSIDE RECORDS SUMMARY | 2025-01-20 08:34 | XMS_ITS | Clinical Summary ---
Author Organization [facility] Address [address] [place] [address] Care Team Providers Care Steel Rigger Name Role Phone Jamaal Ibarra DO Primary Care Provider +1- [phone] Allergies Active Allergy Reactions Criticality Noted Date [...] 2nd Gen Pen Needle) 32 gauge x 32 needleIndications :Type 1 diabetes mellitus with hyperglycemia [...] 09/06/2021 Assessment & Plan (09/06/2021 9:49 AM SALES ASSISTANT DISPLAYS): -Fatigue is most likely multifactorial as she [...] 09/16/2017 Assessment & Plan (09/06/2021 9:45 AM SALES ASSISTANT DISPLAYS): -Taking weekly Vitamin D -Will repeat Vitamin D level Type 1 diabetes mellitus with hyperglycemia 03/2017 Nocturia 06/12/2017 Gastroesophageal reflux disease 10/27/2014 Seronegative rheumatoid arthritis 10/27/2014 Swelling of hand 10/27/2014 Fibroid 10/21/2014 Fibromyalgia 06/09/2014 Hypertension 04/27/2014 Assessment & Plan (09/06/2021 9:45 AM SALES ASSISTANT DISPLAYS): -BP today is 121/81 -Will continue same antihypertensive medications at this time. Hyperlipidemia 04/27/2014 Assessment & Plan (09/06/2021 9:45 AM SALES ASSISTANT DISPLAYS): -Will continue statin as it is being [...] 01/22/2023 Assessment & Plan (09/06/2021 9:45 AM SALES ASSISTANT DISPLAYS): -Currently taking MDI -A1C on 09/06/21 was [...] 06/12/201701/05 Assessment & Plan (09/06/2021 9:07 AM SALES ASSISTANT DISPLAYS): -States she has been off of LT4 for 2 years -Will repeat TFT. Encounters Date Type Department Care Team Description 10/23/2024 12:00 PM SALES ASSISTANT DISPLAYS Office Visit [facility] Ophthalmology 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 (HCC) (Primary Dx); Vitreous hemorrhage of left eye (HCC); 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 10/23/2024 9:00 AM SALES ASSISTANT DISPLAYS Office Visit [facility] Endocrinology Metabolism and Lipid [address] 13th [place] [address] [place] [address] Evelin Monzon, PLAYGROUND WORKER Type 1 diabetes mellitus with hyperglycemia (HCC) (Primary Dx); Mixed hyperlipidemia; Diabetes mellitus with nephropathy (HCC) from Last 3 Months Immunizations Immunization Administration Dates Next Due Flucelvax Influenza Quad 07/22/2017 Hep B Vaccine 07/28/2019,08/21/2013 Hep B, Unspecified 07/09/2012 Influenza, Quadrivalent, Spl it, Preservative Free, Intramuscular 07/30/2019,01/08/2017 Influenza, Trivalent, IM (MDV) 8,07/20/2014,08/03/2013,07/09,07/22/2008 Influenza, Trivalent, Preser vative Free, Intramuscular 07/18/2015,07/03/2011 Influenza, Unspecified 07/07/2020,2016,08/03/2013,07/22 MMR 07/21/2012 PPD TEST 10/22/2006 Td, Unspecified 09/17/2005 Tdap 07/09/2012 Surgical History Surgery Date Site/Laterality Comments RETINOPATHY SURGERY 10/07/2020 - 10/06/2021 FOOT SURGERY 10/07/2019 - 10/06/2020 CHOLECYSTECTOMY 10/07/2014 - 10/06/2015 HYSTERECTOMY 10/07/2016 - 10/06/2017 RETINAL LASER PROCEDURE 09/20/2022 Left PRP IRIDOTOMY / IRIDECTOMY Right RETINAL LASER PROCEDURE 04/06/2023 - 05/06/2023 Left Focal laser Medical History Medical History Date Comments Polyarthritis Polyarthritis - (Added by TW Conv) Cataract Blindness Diabetic retinopathy (HCC) Retinal detachment Hypertension Anemia Family History Medical History Relation Name Comments Obesity Brother Overweight - (A dded by TW Conv) Arthritis Father Hypertension Father Osteoarthritis Father Rheum arthritis Father Family histo ry of rheumatoid arthritis - (Added by TW Conv) Diabetes Mother Hyperlipidemia Mother Family histor y of hypercholesterolemia - (Added by TW Conv) Hypertension Mother Family history of hypertension - (Added by TW Conv) Anemia Sister Family history of anemia - (Added by TW Conv) Breast cancer Neg Hx Endometrial cancer Neg Hx Ovarian cancer Neg Hx Thyroid cancer Neg Hx Relation Name Status Comments Brother Father Mother Sister Social History Tobacco Use Types Packs/Day Years [...] on file Legal Sex Female 12:16 AM SALES ASSISTANT DISPLAYS Gender Identity Not on file Sexual Orientation Not on file Obstetrics History Para Term AB IAB SAB Ectopic Multiple Livin g Live Births 4 0 0 Date Outcome GA Total Labor Labor/2nd/3rd Weight Sex Type Anes PTL Rafia A1 A5 Name Clin Last Filed Vital Signs Vital Sign Reading Time Taken Comments Blood Pressure 138/81 10/23/2024 8:12 AM SALES ASSISTANT DISPLAYS Pulse 78 10/23/2024 8:12 AM SALES ASSISTANT DISPLAYS Temperature 36.7 C (98.1 F) 10/23/2024 8:12 AM SALES ASSISTANT DISPLAYS Respiratory Rate 18 04/04/2024 4:54 PM CDT Oxygen Saturation 95% 04/04/2024 4:54 PM CDT Inhaled Oxygen Concentration - - Weight 128.7 kg (283 lb 12.8 oz) 10/23/2024 8:12 AM SALES ASSISTANT DISPLAYS Height 172.7 cm (5' 8 ) 10/23/2024 8:12 AM SALES ASSISTANT DISPLAYS Body Mass Index 43.15 10/23/2024 8:12 AM SALES ASSISTANT DISPLAYS Plan of Treatment Health Maintenance Due Date Last Done Comments Colon Cancer Screening-Colonoscopy 1974 Depression Screening 1974 Foot Exam 1974 Regular Well Visit/Exam 18-64 1992 Pneumococcal vaccine <65 (1 of 2 - PCV) 1993 DTaP/Tdap/Td Vaccine (2 - Td or Tdap) 07/09/2022 07/09/2012, 09/17/2005 Breast Cancer Screening-Mammogram 01/12/2024 023, 09/22/2013 Zoster Vaccine (1 of 2) 2024 Albumin Creatinine Ratio, Urine 01/23/2025 4, 03/13/2019 Lipid Panel 01/23/2025 01/24/2024, 10/08, 10/14/2017 TSH Level 01/23/2025 01/24/2024, 12/07, 08/04/2020, Additional history exists eGFR 04/04/2025 04/04/2024, 06/09, 01/03/2021, Additional history exists Hemoglobin A1C 04/22/2025 10/23/2024, 0404/2024, 01/22/2023, Additional history exists Influenza Vaccine (Season Ended) 2025 07/07/2020, 07/30/2019, 07/16/2018, Additional history exists Dilated Eye Exam 10/23/2025 10/23/2024, , 04/17/2024, Additional history exists Hepatitis B Screening Completed 07/28/2019 , 08/21/2013, 07/09/2012 Hepatitis C Screening Completed 07/06/2021 Procedures Procedure Name Priority Date/Time Associated Diagnosis Comments INTRAVITREAL INJECTION, PHARMACOLOGIC AGENT - OS - LEFT EYE Routine 10/23/2024 4:31 PM SALES ASSISTANT DISPLAYS 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 (HCC) OCT, RETINA - OU - BOTH EYES Routine 10/23/2024 12:46 PM SALES ASSISTANT DISPLAYS Vitreous hemorrhage of left eye (HCC) POCT HEMOGLOBIN A1C Routine 10/23/2024 8 :29 AM SALES ASSISTANT DISPLAYS Type 1 diabetes mellitus with hyperglycemia (HCC) POCT GLUCOSE [id number] Routine 10/23/2024 8: 20 AM SALES ASSISTANT DISPLAYS Type 1 diabetes mellitus with hyperglycemia (HCC) EGFR STAT 04/04/2024 5:59 PM CDT LIPID PANEL Routine 01/24/2024 Mixed hyperlipidemia ALBUMIN CREATININE RATIO, URINE Routine 01/24/2024 Type 1 diabetes mellitus with hyperglycemia (HCC) TSH Routine 01/24/2024 Thyroid nodule DIAGNOSTIC MAMMOGRAM BILATERAL W KIRAN Schedule Routine, Read Routine (OP Routine) 01/11/2023 11:17 AM CDT Mass of left breast, unspecified quadrant HEPATITIS PANEL, ACUTE Routine 07/06/2021 12:52 PM CDT from Last 3 Months or Most Recently Relevant to Health Maintenance Results * Intravitreal Injection, Pharmacologic Agent - OS - Left Eye (10/23/2024 4:31 PM SALES ASSISTANT DISPLAYS) Anatomical Region Laterality Modality Head Other Narrative 10/23/2024 4:31 PM SALES ASSISTANT DISPLAYS Time Out Informed consent was obtained after [...] mg/0.05 mL Route: intravitreal, Site: Left Eye [facility]: [id number], Lot: [id number], Expiration date: 06/06/2025, Waste: 0 mL The [...] OS signed 05/08/2024.iM AC tap 0.1 mL Steven Edmonds MD [facility] PROCEDURES Fi nal Result * OCT, Retina - OU - Both Eyes (10/23/2024 12:46 PM SALES ASSISTANT DISPLAYS) Anatomical Region Laterality Modality Head Optical Coherenc e Tomography Narrative 10/23/2024 12:46 PM SALES ASSISTANT DISPLAYS Right Eye Scan locations included subfoveal. Left Eye Quality was good. Scan locations included subfoveal. Notes OD: no signal OS: no CME; partial VMA; no VH; no central DME Steven Edmonds MD OPHTH TOMOGRAPHY Final Res ult * POCT hemoglobin A1c (10/23/2024 8:29 AM SALES ASSISTANT DISPLAYS) Hemoglobin A1C, POC 9.1 4.0 - 5.6 % Blood 10/23/2024 8:29 AM SALES ASSISTANT DISPLAYS us Evelin Monzon NP POINT OF CARE TEST ORDERA BLES Final Result * POCT glucose (10/23/2024 8:20 AM SALES ASSISTANT DISPLAYS) Glucose Blood, POC 250 mg/dL Blood 10/23/2024 8:20 AM SALES ASSISTANT DISPLAYS us Evelin Monzon NP POINT OF CARE TEST ORDERA BLES Final Result * (ABNORMAL) eGFR (04/04/2024 5:59 PM CDT) Pathologist [facility] eGFR 22(L) >=60 mL/min/1. 73 m2 Comment: [...] BLOOD ORDERABLES Final Result Performing Organization Address [facility] Co de Phone Number [facility] Department [place] [address] * Albumin Creatinine Ratio, Urine (01/24/2024) Urine us Sarah Haskins MD LAB URINE ORDERABLES Final Resu lt Performing Organization Address City/[facility]/ZIP Co de Phone Number EXTERNAL LAB * TSH (01/24/2024) Blood Sarah Haskins MD LAB BLOOD ORDERABLES Final Resu lt Performing Organization Address [facility] Co de Phone Number EXTERNAL LAB * Lipid panel (01/24/2024) Blood us Sarah Haskins MD LAB BLOOD ORDERABLES Final Resu lt Performing Organization Address [facility] Co de Phone Number EXTERNAL LAB * Diagnostic Mammogram Bilateral W Kiran (01/11/2023 11:17 AM CDT) Anatomical Region Laterality [...] nipple by physician COMPARISON: Outside exams from [place] 09/13/2022to 07/08/2019 TECHNIQUE: Full field digital mammographic [...] the exam and her questions were answered. Saul Ortiz NP IMG MAMMO PROCEDURES Final [...] - 07/12/2021 5:08 PM CDT Performed at: [facility] [id number] Machine Washer: Link Myles PhD, Phone: [phone] us Lorrie Saavedra MD LAB MICROBIOLOGY - GENERAL ORD ERABLES Final Result [facility] - 01 from Last 3 Months or Most Recently Relevant to Health Maintenance Insurance [place] BL CHOICE PR[place] GENER[place]AY ASSIST [place] Care Teams Steel Rigger Relationship Specialty Start Date End Date Jamaal Ibarra DO PCP - General 10/22/17
--- OUTSIDE RECORDS SUMMARY | 2025-01-20 08:34 | XMS_ITS | CONTINUITY OF CARE DOCUMENT ---
Author Name shyanalili Address Unknown Organization [facility] Address [address] [place] [address] [address] [place] [address] Phone [phone] Care Team Providers Care Cancer Genetics Assistant Name Role Phone Edwar JAY, Rigoberto Unavailable JANNETTE JAY, LAYTON Unavailable [phone] JANETH GUZMAN DO Unavailable INSURANCE PROVIDERS Payer name Policy type / Coverage type [place] red democrat ID [facility] [id number]
--- OUTSIDE RECORDS SUMMARY | 2025-01-20 08:34 | XMS_ITS | Clinical Summary ---
Author Organization [facility] Address [address] [place] [address] Care Team Providers Care Heel Coverer Machine Operator Name Role Phone Jamaal Ibarra DO Primary Care Provider Allergies Active Allergy Reactions Criticality Noted Date Comments Benazepril Cough Low 05/05/2008 Latex Itching Low 08/07/2018 Lisinopril Cough Low 03/28/2021 Metoclopramide Hives High 03/28/2021 Metronidazole Swelling Low 10/17/2009 Medications levothyroxine 50 mcg tablet Take 50 mcg by mouth daily oil developer. Active losartan-hydroC HLOROthiazide (HYZAAR) 50-12.5 mg tablet Take 1 Tablet by mouth daily. Active metoprolol tartrate (LOPRESSOR) 25 mg tablet Take 25 mg by mouth daily. Take two tabs Active acyclovir (ZOVIRAX) 400 mg tablet Take 400 mg by mouth 2 times daily. Active traZODone (DESYREL) 50 mg tablet Take 50 mg by mouth daily at bedtime. Active cyclobenzaprine (FLEXERIL) 10 mg tablet Take 10 mg by mouth 3 times daily as needed for Spasm. Active sertraline (ZOLOFT) 100 mg tablet Take 100 mg by mouth daily. Active zolpidem (AMBIEN) 10 mg tablet Take 10 mg by mouth daily at bedtime. Active amitriptyline (ELAVIL) 25 mg tablet Take 25 mg by mouth daily at bedtime. Active insulin aspart protamine-aspar (NovoLOG MIX 70-30) 100 unit/mL (70-30) vial Inject by subcutaneous injection Sliding scale . Active traMADol (ULTRAM) 50 mg tablet Take 100 mg by mouth every 8 hours as needed for Pain. Active insulin glargine (LANTUS) 100 unit/mL vial Inject 40 Units by subcutaneous injection daily at bedtime. Active prochlorperazin e maleate (COMPAZINE) 10 mg tablet Take 10 mg by mouth every 6 hours as needed for Nausea/Emesis. Active ondansetron (ZOFRAN) 8 mg Tablet Take 8 mg by mouth every 8 hours as needed for Nausea/Emesis. Active etanercept (ENBREL) 25 mg (1 mL) Recon Soln Inject 25 mg by subcutaneous injection every 7 days. Active docusate sodium (COLACE) 100 mg capsule Take 100 mg by mouth 2 times daily. Active pantoprazole (PROTONIX) 40 mg Tablet, Delayed Release (E.C.) Take 40 mg by mouth daily. Active ALPRAZolam (XANAX) 1 mg tablet Take 1 mg by mouth 3 times daily as needed for Anxiety. Active insulin degludec (TRESIBA FLEXTOUCH U-100 SUBCUT) Inject 60 Units by subcutaneous injection daily at bedtime. Active gabapentin (NEURONTIN) 100 mg capsule Take 100 mg by mouth 2 times daily. Active amLODIPine (NORVASC) 2.5 mg tablet Take 2.5 mg by mouth daily. Active prazosin (MINIPRESS) 2 mg capsule Take 2 mg by mouth daily at bedtime. Active Active Problems Problem Noted Date Diagnosed Date Iron deficiency anemia 08/07/2018 Family History Medical History Relation Name Comments Other Brother Heart Disease Father Hypertension Father Other Father Hypertension Mother Other Mother Healthy Sister Relation Name Status Comments Brother Alive Father Alive Mother Alive Sister Alive Social History Tobacco Use Types Packs/Day Years Used Date Smoking Tobacco: Never Smokeless Tobacco: Never Alcohol Use Standard Drinks/Week Comments Yes 0 (1 standard drink = 0.6 oz pur e alcohol) rarely Comments No Sex and Gender Information Value Date Recorded Sex Assigned at Not on file Legal Sex Female 3:50 AM FLAP LINING BINDER Gender Identity Not on file Sexual Orientation Not on file Last Filed Vital Signs Vital Sign Reading Time Taken Comments Blood Pressure 132/83 03/28/2021 9:10 AM CDT Pulse 82 03/28/2021 9:10 AM CDT Temperature 36.9 C (98.5 F) 03/28/2021 9:10 AM CDT Respiratory Rate 20 03/28/2021 9:10 AM CDT Oxygen Saturation 97% 10/27/2018 1:22 PM FLAP LINING BINDER Inhaled Oxygen Concentration - - Weight 114.3 kg (252 lb) 03/28/2021 9:10 AM CDT Height 172.7 cm (5' 8 ) 03/28/2021 9:10 AM CDT Body Mass Index 38.32 03/28/2021 9:10 AM CDT Plan of Treatment Health Maintenance Due Date Last Done Comments DIABETES MICROALBUMIN ANNUAL SCREEN 1992 LDL CHOLESTEROL ANNUAL 1992 DIABETES ANNUAL FOOT EXAM 07/09/2013 07/09/2012 BREAST CANCER SCREENING 2014 09/22/2013 PAP SMEAR 10/21/2017 10/21/2014 HEPATITIS B VACCINES (2 of 3 - 19+ 3-dose series) 08/25/2019 07/28/2019, 08/21/2013, 07/09/2012 COLORECTAL SCREENING 12/21/2019 Colorectal Cancer Screening 12/21/2019 FIT-DNA Q 3 years 12/21/2019 FIT/FOBT Q 1 year 12/21/2019 Flex Sig/CT Colonography Q 5 years 12/21/2019 DIABETES HBA1C Q 6 MONTHS 07/06/20212020, 04/29/2018, 10/16/2017, Additional history exists DTAP/TDAP/TD VACCINES (2 - T d or Tdap) 07/09/2022 07/09/2012, 09/17/2005 INFLUENZA VACCINE (#1) 2024 9, 07/16/2018, 07/22/2017, Additional history exists ZOSTER VACCINE (1 of 2) 2024 DIABETES ANNUAL RETINAL EXAM 06/19/2025 06/19/2024, 06/01/[address] [place] [address] [employer] BLUE PREFERRED Care Teams Heel Coverer Machine Operator Relationship Specialty Start Date End Date Jamaal Ibarra DO [address] [place] [address] PCP - General Internal Medicine 07/11/18
--- OUTSIDE RECORDS SUMMARY | 2025-01-20 08:34 | XMS_ITS | Clinical Summary ---
Author Organization [facility] [employer] Address [address] [place] [address] Care Team Providers Care Hunter Skin Diver Name Role Phone Lebron Pugh V. DO Unavailable Jamaal Ibarra DO Primary Care Provider [phone] Source Comments [facility],non-owned Affiliates and Associated Physician Practices is amultiple site organization consisting of ambulatory clinics and hospital sitesin [place], [place], [place] and [place]. This disclosure is being madepursuant to the Care Everywhere program and may not contain all information available regarding this patient. Last updated 18.[facility] Allergies Active Allergy Reactions Criticality Noted Date Comments Benazepril 05/05/2008 Cough Latex Rash,Itching 05/05/2008 Metrogel Swelling 10/17/2009 Metoclopramide Itching 06/01/2021 Medications * Be aware that medications may not be up to date on this document. Alwaysverify current medications with the patient. ALPRAZolam (XANAX) 0.25 MG tabletIndications:Anxi ety Take 1 Tab by mouth 3 times daily as needed for Anxiety. 90 Tab 0 011 Active cetirizine (ZYRTEC ALLERGY) 10 MG tablet Take 10 mg by mouth once daily. Active metFORMIN (GLUCOPHAGE) 1000 MG tablet TAKE 1 TABLET BY MOUTH TWICE DAILY WITH BREAKFAST AND DINNER 180 Tab 3 Active insulin lispro (HUMALOG) pen Inject 15 Units subcutaneously 3 times daily before meals. 1 Box 5 014 Active cyclobenzaprine (FLEXERIL) 10 MG tablet 2 Active vitamin D, ergocalciferol, (DRISDOL) 45674 UNITS capsule 1 Active gabapentin (NEURONTIN) 300 MG capsule 2 Active simvastatin (ZOCOR) 20 MG tablet 1 Active traMADol (ULTRAM) 50 MG tablet 1 014 Active traZODone (DESYREL) 50 MG tablet 6 Active zolpidem (AMBIEN) 10 MG tablet 5 Active megestrol (MEGACE) 40 MG tablet Take 1 Tab by mouth once daily. 30 Tab 12 015 Active nystatin-triamcinolone (MYCOLOG) 434327-7.1 UNIT/GM-% creamIndications:Vagin itis and vulvovaginitis, unspecified Apply to affected area 2 times daily. For 10 days 15 g 1 015 Active losartan - hydrochlorothiazide (HYZAAR) 50-12.5 MG tablet TAKE 1 TABLET BY MOUTH EVERY DAY 30 Tab 0 015 Active LEVEMIR FLEXTOUCH pen 3 015 Active methotrexate 2.5 MG tablet 1 Active naproxen sodium (ANAPROX DS) 550 MG tablet 2 015 Active ranitidine (ZANTAC) 150 MG tablet 6 015 Active acyclovir (ZOVIRAX) 400 MG tablet TAKE 1 TABLET BY MOUTH TWICE DAILY 60 Tab 0 015 Active insulin degludec (TRESIBA FLEXTOUCH) 100 UNIT/ML pen Inject 70 Units subcutaneously Active acetaminophen-codeine (TYLENOL #3) 300-30 MG tablet Take 1 tablet by mouth every 4 hours as needed For pain. 021 Active amitriptyline (ELAVIL) 25 MG tablet Take 25 mg by mouth once daily Active amLODIPine (NORVASC) 10 MG tablet Active Blood Glucose Monitoring Suppl (FIFTY50 GLUCOSE METER 2.0) w/Device KIT Use daily or as directed for monitoring of diabetes Active Blood Glucose Monitoring Suppl (FIFTY50 GLUCOSE METER 2.0) w/Device KIT Use daily or as directed for monitoring of diabetes Active Blood Glucose Monitoring Suppl (CONTOUR NEXT EZ MONITOR) w/Device KIT as directed Active Cranberry 400 MG CAPS Active blood glucose (PRESTON CONTOUR NEXT TEST) test strip USE TO TEST UP TO THREE TIMES DAILY DIRECTED Active HYDROcodone-acetaminop hen (NORCO) 5-325 MG tablet Active insulin aspart (NOVOLOG FLEXPEN) pen 10 units with breakfast and lunch 15 units with dinner with correction of 1 unit for every 10 points over 200. TDD 80 units. Active TRESIBA FLEXTOUCH 200 UNIT/ML pen ADMINISTER 70 UNITS UNDER THE SKIN DAILY Active Insulin Pen Needle (BD PEN NEEDLE HONEY U/F) 32G X 4 MM MISC Use to administer insulin 5 times per day Active BD PEN NEEDLE HONEY 2ND GEN 32G X 4 MM MISC USE TO ADMINISTER INSULIN FIVE TIMES DAILY Active losartan (COZAAR) 100 MG tablet Take 100 mg by mouth once daily Active metoprolol succinate XL 24hr (TOPROL XL) 25 MG tablet TK 1 T PO D Active miconazole (MONISTAT) 2 % vaginal cream I 1 APL VAGINALLY HS FOR 5 DAYS Active pantoprazole EC (PROTONIX) 40 MG tablet Take 40 mg by mouth 2 times daily Active potassium chloride ER (KLOR-CON) 20 MEQ tablet TAKE 2 TABLETS BY MOUTH EVERY DAY FOR 3 DAYS Active prazosin (MINIPRESS) 2 MG capsule Take 2 mg by mouth at bedtime Active prochlorperazine (COMPAZINE) 10 MG tablet Active sertraline (ZOLOFT) 100 MG tablet Active ALPRAZolam (XANAX) 0.5 MG tablet Take 0.5 mg by mouth 3 times daily Active cetirizine (ZYRTEC) 10 MG tablet Take 10 mg by mouth Active ergocalciferol (DRISDOL) 1.25 MG (40704 UT) capsule Take 50,000 Units by mouth Active traZODone (DESYREL) 50 MG tablet TK ONE T PO QHS Active acetaZOLAMIDE (DIAMOX) 250 MG tablet TAKE 1 TABLET BY MOUTH TWICE DAILY FOR 14 DAYS Active amLODIPine (NORVASC) 5 MG tablet Take 5 mg by mouth once daily Active benzonatate (TESSALON) 100 MG capsule TAKE 1 CAPSULE BY MOUTH EVERY 8 HOURS NEEDED FOR COUGH Active ciprofloxacin (CIPRO) 500 MG tablet Take 500 mg by mouth 2 times daily Active clindamycin (CLEOCIN) 300 MG capsule Take 300 mg by mouth 4 times daily Active ibuprofen (MOTRIN) 600 MG tablet TK 1 T PO QID PRF PAIN Active Docusate Sodium (DSS) 100 MG Take 100 mg by mouth every 12 hours Active Active Problems Problem Noted Date Diagnosed Date Chronic ulcer of great toe o f right foot, limited to breakdown of skin 01/11/2021 Right retinal detachment 01/11/2021 Acquired hypothyroidism 06/12/2017 Fibroid 10/21/2014 Fibromyalgia 06/09/2014 Chronic posttraumatic stress syndrome 04/27/2014 Iron deficiency anemia 08/08/2011 Hyperlipidemia 07/05/2009 Type II or unspecified type diabetes mellitus without mention of complication, uncontrolled 11/10/2007 HTN (hypertension), benign 11/10/2007 Depression 11/10/2007 Allergic rhinitis 11/10/2007 PCOS (polycystic ovarian syndrome) 11/10/2007 Endometriosis 11/10/2007 Anxiety 05/20/2007 HSV-2 infection 05/20/2007 Resolved Problems Problem Noted Date Diagnosed Date Resolved Date Dysfunctional uterine bleeding 11/10/2007 11/11/2007 Immunizations Immunization Administration Dates Next Due INFLUENZA VACCINE, TRIV. (AF LURIA FLUZONE TRIVALENT; 6MO+) (IIV3) 07/09/2012,07/22/2008 FLU VACCINE TRI IIV3 SPLIT PF IM (FLUVIRIN) 06/08 HEP B VACCINE, ADULT 3 DOSE 08/21/2013 HepB Unspecified formulation 07/09/2012 INFLUENZA VACCINE 08/03/2013,07/12/2010,07/22/20 07 INFLUENZA VACCINE, QUADR. (F LUZONE; FLULAVAL; FLUARIX; AFLURIA QUADRIVALENT; 6MO+), 0.5 ML (IIV4) 07/30/2019 MMR 07/21/2012 PPD 10/22/2006 TD VACCINE 09/17/2005 TDAP (7yrs+) 07/09/2012 Family History Medical History Relation Name Comments Hypertension Mother Cancer - Breast Neg Hx Relation Name Status Comments Father Alive CABG at 52 Maternal Uncle Alive DM Mother Alive Htn, diabetes Social History Tobacco Use Types Packs/Day Years Used Date Smoking Tobacco: Never Smokeless Tobacco: Never Alcohol Use Standard Drinks/Week Comments Yes 0 (1 standard drink = 0.6 oz pur e alcohol) rare Comments No Sex and Gender Information Value Date Recorded Sex Assigned at Not on file Legal Sex Female 7:58 AM MEDICAL TRANSCRIPTIONIST Gender Identity Not on file Sexual Orientation Not on file 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 Not on file Not on file Not on file Last Filed Vital Signs Vital Sign Reading Time Taken Comments Blood Pressure 126/74 10/21/2014 11:57 AM MEDICAL TRANSCRIPTIONIST Pulse 102 09/16/2013 1:06 PM MEDICAL TRANSCRIPTIONIST Temperature 36.8 C (98.2 F) 09/16/2013 1:06 PM MEDICAL TRANSCRIPTIONIST Respiratory Rate 20 09/16/2013 1:06 PM MEDICAL TRANSCRIPTIONIST Oxygen Saturation 98% 09/16/2013 1:06 PM MEDICAL TRANSCRIPTIONIST Inhaled Oxygen Concentration - - Weight 89.8 kg (198 lb) 10/21/2014 11:57 AM MEDICAL TRANSCRIPTIONIST Height 172.7 cm (5' 8 ) 10/21/2014 11:57 AM MEDICAL TRANSCRIPTIONIST Body Mass Index 30.11 10/21/2014 11:57 AM MEDICAL TRANSCRIPTIONIST Plan of Treatment Health Maintenance Due Date Last Done Comments COLOGUARD (AGES 45-75) - COLON CA SCREENING 1974 COLON MONITORING 1974 COLONOSCOPY - COLON CA SCREENING 1974 CT COLONOGRAPHY - COLON CA SCREENING 1974 Colorectal Cancer Screening 1974 FIT - COLON CA SCREENING 1974 FLEX SIG - COLON CA SCREENING 1974 HIV SCREENING 1989 HEPATITIS C SCREENING 12/15/1992 PNEUMOCOCCAL VACCINE 50+ (1 of 2 - PCV) 1993 DIABETES-FOOT EXAM WITH MONOFILAMENT 07/09/2013 07/09/2012 HEPATITIS B VACCINE (3 of 3 - 19+ 3-dose series) 10/16/2013 08/21/2013, 07/09/2012 PAP SMEAR 10/21/2015 10/21/2014, 08/07, 06/25/2012, Additional history exists DIABETES-SERUM CREATININE 05/02/20222020, 07/06/2018, 07/06/2018, Additional history exists DTAP/TDAP/TD VACCINES (3 - Td or Tdap) 07/09/2022 07/09/2012, 09/17/2005 COVID-19 VACCINE ( season) 2024 DIABETES-HGB A1C 07/23/2024 01/22/2024, , 10/16/2017, Additional history exists DEPRESSION SCREENING 10/07/2024 DIABETES - URINE PROTEIN SCREENING 10/07/2024 08/21/2013, 07/13/2012, 07/04/2009 ZOSTER VACCINE (1 of 2) 2024 MAMMOGRAM 01/11/2025 01/11/2023, 05/2018, 09/22/2013, Additional history exists INFLUENZA VACCINE (Season Ended) 2025 07/07/2020, 07/30/2019, 07/16/2018, Additional history exists DIABETES RETINOPATHY SCREENING 06/19/2026 06/19/2024, 04/17/2024, 06/21/2021, Additional history exists HIB VACCINE Aged Out No longer eligi ble based on patient's age to complete this topic HPV VACCINE Aged Out No longer eligi ble based on patient's age to complete this topic MENINGOCOCCAL (Group B) VACCINE SHARED DECISION-MAKING Aged Out No longer eligible based on patient's age to complete this topic MENINGOCOCCAL GROUPS A/C/Y/W VACCINE Aged Out No longer eligible based on patient's age to complete this topic Procedures Procedure Name Priority Date/Time Associated Diagnosis Comments PAP THINPREP REFLX HPV MRNA E6/E7 Routine 10/21/2014 1:52 PM MEDICAL TRANSCRIPTIONIST Routine gynecological examination MAMMO BILAT SCREENING Routine 09/22/2013 8:09 AM MEDICAL TRANSCRIPTIONIST Screening COMPREHENSIVE METABOLIC PANEL Routine 08/22/2013 8:00 AM MEDICAL TRANSCRIPTIONIST DM w/o Complication Type II, Uncontrolled HTN (hypertension), benign Abdominal pain, RUQ (right upper quadrant) Ketonuria HEMOGLOBIN A1C Routine 08/22/2013 8:00 AM MEDICAL TRANSCRIPTIONIST DM w/o Complication Type II, Uncontrolled MICROALB/CREAT RATIO URINE RANDOM PANEL Routine 08/21/2013 9:29 AM MEDICAL TRANSCRIPTIONIST DM w/o Complication Type II, Uncontrolled from Last 3 Months or Most Recently Relevant to Health Maintenance Results * PAP THIN PREP REFLX HPV (PO REF LAB) (10/21/2014 1:52 PM MEDICAL TRANSCRIPTIONIST) Clinical Information [facility] Comment:Routine exam LMP [facility] Comment:INFORMATION NOT PROV IDED Previous Pap [facility] Comment:INFORMATION NOT PROV IDED Prev. BX [facility] Comment:INFORMATION NOT PROV IDED Source [facility] Comment:[facility] Statement of Adequacy [facility] Comment: Satisfactory for evaluation. Endocervical/transformation zone component present. Age and/or menstrual status not provided Interpretation/Resul t [facility] Comment:Negative for intraep ithelial lesion or malignancy. Comment [facility] Comment: This Pap test has been evaluated with computer assisted technology. Track Leader [facility] Comment: BKA, CT(ASCP) Test Performed at: [id number] [address] LAURENCE JO MD ENTIRE ENDOCERVIX / Unknown 10/21/2014 1:52 PM MEDICAL TRANSCRIPTIONIST 10/22/2014 10:09 AM MEDICAL TRANSCRIPTIONIST Bienvenido Mcnair Jr., MD LAB - PATHOLOGY/CYTOL OGY ORDERABLES Final Result [address] [address] * MAMM SCREENING DIGITAL IMAGE BILAT G0202 (09/22/2013 8:09 AM MEDICAL TRANSCRIPTIONIST) Anatomical Region Laterality Modality Breast Bilateral Mammography 09/22/2013 11:5 3 AM MEDICAL TRANSCRIPTIONIST Impressions 09/22/2013 11:56 AM MEDICAL TRANSCRIPTIONIST No malignant abnormality identified. No significant change. BI-RADS category 1. Negative. RECOMMENDATIONS: Routine mammograms in one year. Narrative 09/22/2013 11:56 AM MEDICAL TRANSCRIPTIONIST Screening mammogram: HISTORY: Screening mammogram. Two views each of both breasts were obtained on 09/22/2013. Comparison is made to a prior bilateral ultrasound and diagnostic mammogram on 08/04/2010. The examination was performed using digital technique with interpretation assisted by CAD analysis. The mammogram shows the breast parenchyma is heterogeneously dense, which could obscure detection of small masses. There is no interval development of a spiculated mass, parenchymal retraction, suspicious calcification, abnormal vascularity or skin thickening to suggest malignancy in either breast. Procedure Note Jamaal Fried MD - 09/22/2013 Screening mammogram: HISTORY: Screening mammogram. Two views each of both breasts were obtained on 09/22/2013. Comparison is made to a prior bilateral ultrasound and diagnostic mammogram on 08/04/2010. The examination was performed using digital technique with interpretation assisted by CAD analysis. The mammogram shows the breast parenchyma is heterogeneously dense, which could obscure detection of small masses. There is no interval development of a spiculated mass, parenchymal retraction, suspicious calcification, abnormal vascularity or skin thickening to suggest malignancy in either breast. IMPRESSION No malignant abnormality identified. No significant change. BI-RADS category 1. Negative. RECOMMENDATIONS: Routine mammograms in one year. Bienvenido Mcnair Jr., MD MAMMO ORDERABLES Era l Result * (ABNORMAL) HEMOGLOBIN A1C (08/22/2013 8:00 AM MEDICAL TRANSCRIPTIONIST) Hemoglobin A1c 12.6(H) <5.7 % of total Hgb [facility] Comment: According to ADA guidelines, hemoglobin A1c <7.0% represents optimal control in non- diabetic patients. Different metrics may apply to specific patient populations. Standards of Medical Care in Diabetes-2013. Diabetes Care. 2013;36:s11-s66 For the purpose of screening for the presence of diabetes <5.7% Consistent with the absence of diabetes 5.7-6.4% Consistent with increased risk for diabetes (prediabetes) >or=6.5% Consistent with diabetes This assay result is consistent with diabetes mellitus. Currently, no consensus exists for use of hemoglobin A1c for diagnosis of diabetes for children. Test Performed at: [facility] [id number] [place] [address] PAPO BENNETT DO,MPH Whole blood specimen (specimen) BLOOD SPECIMEN / Unknown 08/22/2013 4:53 AM MEDICAL TRANSCRIPTIONIST us Salma Hunt COLLECTIONS SPECIALIST-GRINDING MACHINE OPERATOR PORTABLE LAB - CHEMISTRY ORDERA BLES Final Result [facility] [address] [place] [address] * (ABNORMAL) COMPREHENSIVE METABOLIC PANEL (08/22/2013 8:00 AM MEDICAL TRANSCRIPTIONIST) Glucose 312(H) 65 - 99 mg/dL [facility] Comment: Fasting reference interval BUN 18 7 - 25 mg/dL [facility] Creatinine 0.66 0.50 - 1.10 mg/dL [facility] eGFR by MDRD 112 > OR = 60 mL/min/1. 73m2 [facility] eGFR by MDRD 130 > OR = 60 mL/min/1. 73m2 [facility] BUN/Creatinine Ratio NOT APPLICABLE 6 - 22 (calc) [facility] Sodium 139 135 - 146 mmol/L [facility] Potassium 3.7 3.5 - 5.3 mmol/L [facility] Chloride 101 98 - 110 mmol/L [facility] CO2 27 19 - 30 mmol/L [facility] Calcium 10.3(H) 8.6 - 10.2 mg/dL [facility] Protein Total 7.2 6.1 - 8.1 g/dL [facility] Albumin 4.6 3.6 - 5.1 g/dL [facility] Globulin Total 2.6 1.9 - 3.7 g/dL (calc) [facility] Albumin/Globuli n Ratio 1.8 1.0 - 2.5 (calc) [facility] Bilirubin Total 0.5 0.2 - 1.2 mg/dL [facility] Alkaline Phosphatase 78 33 - 115 U/L [facility] AST 19 10 - 30 U/L [facility] ALT 30(H) 6 - 29 U/L [facility] Comment: Test Performed at: [facility] [id number] [place] [address] PAPO BENNETT DO,MPH Blood specimen (specimen) BLOOD SPECIMEN / Unknown 08/22/2013 4:53 AM MEDICAL TRANSCRIPTIONIST Salma Llanos Marilee COLLECTIONS SPECIALIST-GRINDING MACHINE OPERATOR PORTABLE LAB - CHEMISTRY ORDERA BLES Final Result Performing Organization Address [facility] de Phone Number [facility] [address] [place] [address] * (ABNORMAL) MICROALB/CREAT RATIO URINE RANDOM PANEL (08/21/2013 9:29 AM MEDICAL TRANSCRIPTIONIST) Creatinine Urine 129 20 - 320 mg/dL [facility] Microalbumin Urine 4.4 mg/dL [facility] Comment: Reference Range Not established Microalbumin/Creat inine Ratio 34(H) <30 mcg/mg creat [facility] Comment: The ADA defines abnormalities in albumin excretion as follows: Category Result (mcg/mg creatinine) Normal <30 Microalbuminuria 30-299 Clinical albuminuria > OR = 300 The ADA recommends that at least two of three specimens collected within a 3-6 month period be abnormal before considering a patient to be within a diagnostic category. Test Performed at: [facility] [address] [place] [address] PAPO BENNETT DO,MPH Urine specimen (specimen) URINE SPECIMEN OBTAINED BY CLEAN CATCH PROCEDURE / Unknown 08/21/2013 9:29 AM MEDICAL TRANSCRIPTIONIST 08/22/2013 4:16 AM MEDICAL TRANSCRIPTIONIST Salma Llanos Marilee COLLECTIONS SPECIALIST-GRINDING MACHINE OPERATOR PORTABLE LAB - URINE CHEMISTRY ORDERABLES Final Result Performing Organization Address [facility] de Phone Number [facility] [address] [place] [address] from Last 3 Months or Most Recently Relevant to Health Maintenance Insurance ANTHEM ANTHEM Advance Directives * FULL RESUSCITATION (Latest Code Status on File) Date Activated Date Inactivated Comments 05/06/2011 1:35 AM 05/08/2011 5:46 AM Care Teams Hunter Skin Diver Relationship Specialty Start Date End Date Jamaal Ibarra DO [address] [place] [id number] PCP - General 06/01/21 Lebron Pugh DO [address] [place] [id number] Oncology 06/23/07
--- OUTSIDE RECORDS SUMMARY | 2025-01-20 08:34 | XMS_ITS | Encounter Summary ---
Author Organization [facility] Address [address] [place] [address] Phone Care Team Providers Care Administrative Specialist Name Role Phone Jamaal Ibarra DO Primary Care Provider [phone]- [phone] Encounter Details Date Type Department Care Team (Late st Contact Info) Description 10/18/[address] [place] [address] [place] [address] Era Taylor CMA Social History Tobacco Use Types Packs/Day Years Used Date Smoking Tobacco: Never Smokeless Tobacco: Never Comments Unknown Sex and Gender Information Value Date Recorded Sex Assigned at Not on file Legal Sex Female 12:16 AM GENERAL SURGEON Gender Identity Not on file Sexual Orientation Not on file documented as of this encounter Plan of Treatment Not on file documented as of this encounter Visit Diagnoses Not on filedocumented in this encounter Care Teams Administrative Specialist Relationship Specialty Start Date End Date Jamaal Ibarra DO PCP - General 10/22/17 documented as of this encounter
--- OUTSIDE RECORDS SUMMARY | 2025-01-20 08:34 | XMS_ITS | Clinical Summary ---
Author Organization [facility] Address [address] [place] [address] Phone Care Team Providers Care Baker Name Role Phone JeanniesvetaJamaal jernigan Primary Care Provider [phone] Allergies Active Allergy Reactions Criticality Noted Date Comments Benazepril Cough,Other (see comments) Low 05/05/2008 Cough Cough Latex Itching,Rash Medium 05/05/2008 Metoclopramide Hives,Itching High 07/08/2019 Other reaction(s): Redness Metronidazole Swelling Medium 10/17/2009 Medications ALPRAZolam (XANAX) 0.5 MG tablet Take 0.5 mg by mouth 3 (three) times a day 2 Active amitriptyline (ELAVIL) 25 MG tablet TAKE 3 TABLETS BY MOUTH EVERY DAY AT BEDTIME 2 Active cloNIDine 0.3 MG/24HR patch weekly APPLY 1 PATCH TOPICALLY TO THE SKIN WEEKLY 2 Active ergocalciferol (VITAMIN D2) 1.25 MG (70096 UT) capsule TAKE 1 CAPSULE BY MOUTH 1 TIME A WEEK 2 Active NovoLOG FLEXPEN 100 UNIT/ML injection 2 Active Tresiba FlexTouch 200 UNIT/ML injection ADMINISTER 80 UNITS UNDER THE SKIN DAILY 2 Active BD Pen Needle Mer 2nd Gen 32G X 4 MM misc USE TO ADMINISTER INSULIN FIVE TIMES DAILY 2 Active losartan (COZAAR) 100 MG tablet Take 100 mg by mouth 1 (one) time each day 2 Active pantoprazole (PROTONIX) 40 MG EC tablet 2 Active phenazopyridine (PYRIDIUM) 100 MG tablet TAKE 1 TABLET BY MOUTH THREE TIMES DAILY NEEDED FOR PAIN FOR 6 DOSES 2 Active potassium chloride (K-TAB) 20 MEQ CR tablet TAKE 2 TABLETS BY MOUTH DAILY FOR 3 DAYS 2 Active prazosin (MINIPRESS) 2 MG capsule Take 2 mg by mouth every night 2 Active prochlorperazin e (COMPAZINE) 10 MG tablet TAKE 1 TABLET BY MOUTH EVERY 4 TO 6 HOURS NEEDED FOR NAUSEA OR VOMITING 2 Active sertraline (ZOLOFT) 100 MG tablet Take 150 mg by mouth 1 (one) time each day 2 Active zolpidem (AMBIEN) 10 MG tablet 2 Active metoprolol succinate XL (TOPROL-XL) 50 MG 24 hr tablet Take 50 mg by mouth 1 (one) time each day 2 Active prednisoLONE acetate (PRED FORTE) 1 % ophthalmic suspension 2 Active traMADol (ULTRAM) 50 MG tablet TAKE 1 TABLET BY MOUTH EVERY 6 HOURS NEEDED FOR PAIN STARTING AFTER SURGERY 2 Active traZODone (DESYREL) 50 MG tablet Take 50 mg by mouth every night 2 Active Contour Next Test test strip USE TO TEST THREE TIMES DAILY DIRECTED 2 Active Active Problems Problem Noted Date Diagnosed Date Chronic fatigue 09/06/2021 Overview (06/17/2022): Last Assessment & Plan: -Fatigue is most likely multifactorial as she has uncontrolled blood sugars, fibromyalgia, rheumatoid arthritis, sleep apnea (has not tolerated CPAP). She also has a history of hypothyroidism but levothyroxine was discontinued 2 years ago. -Will repeat labs to evaluate for causes of fatigue and will address any issues. -Discussed that she may need a retrial of CPAP as well. Detachment of retina of right eye 01/11/2021 Ulcer of big toe 01/11/2021 Gastroparesis 03/11/2019 Vitamin D deficiency 09/16/2017 Overview (06/17/2022): Last Assessment & Plan: -Taking weekly Vitamin D -Will repeat Vitamin D level Acquired hypothyroidism 06/12/2017 Overview (06/17/2022): Last Assessment & Plan: -States she has been off of LT4 for 2 years -Will repeat TFT. Nocturia 06/12/2017 Gastroesophageal reflux disease 10/27/2014 Seronegative rheumatoid arthritis 10/27/2014 Swelling of hand 10/27/2014 Leiomyoma 10/21/2014 Fibromyalgia 06/09/2014 Anemia 04/27/2014 Polyarthropathy 04/27/2014 Posttraumatic stress disorder 04/27/2014 Iron deficiency anemia 08/08/2011 Hyperlipidemia 07/05/2009 Overview (06/17/2022): Last Assessment & Plan: -Will continue statin as it is being tolerated without side effects -Will repeat lipid panel Allergic rhinitis 11/10/2007 Benign hypertension 11/10/2007 Overview (06/17/2022): Last Assessment & Plan: -BP today is 121/81 -Will continue same antihypertensive medications at this time. Depressive disorder 11/10/2007 Endometriosis 11/10/2007 Polycystic ovary syndrome 11/10/2007 Type 2 diabetes mellitus 11/10/2007 Overview (06/17/2022): Last Assessment & Plan: -Currently taking MDI -A1C on 09/06/21 was [...] -Following with podiatry on a regular basis Anxiety 05/20/2007 Herpes simplex type 2 infection 05/20/2007 Immunizations Immunization Administration Dates Next Due Hep B, Unspecified 07/09/2012 Hepatitis B 07/28/2019,08/21/2013 Influenza (IM) Preservative Free 07/18/2015,06/08 Influenza TIV (IM) 07/16/2018, 4,08/03/2013,2011,07/22/2008 Influenza, Injectable, Mdck, Preservative Free, Quadrivalt 07/22/2017 Influenza, Injectable, Quadr ivalent, Preservative Free 07/30/2019,01/08/2017 Influenza, Unspecified 07/07/2020,2016,08/03/2013,2009,07/22/2007 MMR 07/21/2012 PPD Test 10/22/2006,10/22/2006 Td, Unspecified 09/17/2005 Tdap 07/09/2012 Family History Medical History Relation Comments Obesity Brother Heart disease Father Hypertension Father Rheumatoid arthritis Father Diabetes mellitus Mother Hyperlipidemia Mother Hypertension Mother Anemia Sister Relation Status Comments Brother Father Mother Sister Social History Tobacco Use Types Packs/Day Years Used Date Smoking Tobacco: Never Smokeless Tobacco: Never Tobacco Cessation:Counseling Given: Not Answered Alcohol Use Standard Drinks/Week Comments Never 0 (1 standard drink = 0.6 oz pur e alcohol) Comments Unknown Sex and Gender Information Value Date Recorded Sex Assigned at Not on file Legal Sex Female 1:12 PM MDT Gender Identity Not on file Sexual Orientation Not on file Last Filed Vital Signs Vital Sign Reading Time Taken Comments Blood Pressure 128/72 09/05/2022 8:31 AM IC DESIGN ENGINEER Pulse - - Temperature 36.5 C (97.7 F) 09/05/2022 8:31 AM IC DESIGN ENGINEER Respiratory Rate 18 09/05/2022 8:31 AM IC DESIGN ENGINEER Oxygen Saturation - - Inhaled Oxygen Concentration - - Weight 121 kg (267 lb) 09/05/2022 8:31 AM IC DESIGN ENGINEER Height 172.7 cm (5' 8 ) 09/05/2022 8:31 AM IC DESIGN ENGINEER Body Mass Index 40.6 09/05/2022 8:31 AM IC DESIGN ENGINEER Plan of Treatment Health Maintenance Due Date Last Done Comments Influenza Vaccine (Season Ended) 2025 07/07/2020, 07/30/2019, 07/16/2018, Additional history exists Insurance [facility] Care Teams Baker Relationship Specialty Start Date End Date Jamaal Ibarra DO [address] [place] [address] PCP - General Internal Medicine 05/07/22
[2025-01-20 08:47] LABS: Basophils Percent Auto 0.4 % (0.2-1.2); Eosinophils Absolute Auto 0.2 K/mm3 (0-0.3); Hematocrit 40.9 % (37.0-47.0); Hemoglobin 12.6 g/dL (12.0-15.0); Immature Granulocyte Absolute 0.05 K/mm3 (0.00-0.031); Immature Granulocyte Percent A 0.4 % (0-0.5); Lymphocytes Absolute Auto 1.83 K/mm3 (0.9-3.2); Lymphocytes Percent Auto 16.4 % (18.3-44.2); Mean Corpuscular HGB Conc 30.8 g/dl (32-36); Mean Corpuscular Hemoglobin 28.7 pg (26-34); Mean Corpuscular Volume 93.2 fl (80-100); Mean Platelet Volume 10.1 fl (7.4-10.4); Monocytes Absolute Auto 0.5 K/mm3 (0.1-0.6); Monocytes Percent Auto 4.8 % (2.6-8.5); Neutrophils Absolute Auto 8.5 K/mm3 (1.3-6.7); Platelet Count Result 239 k/mm3 (150-375); Red Blood Count 4.39 M/mm3 (4.2-5.4); Red Cell Distribution Width 13.5 % (11.5-14.5); White Blood Count 11.2 K/mm3 (4.5-10.0)
--- NOTE | 2025-01-20 09:02 | ECG_ITS ---
Test Date: 2025-01-20 09:23:36 Measurements Intervals [place] Rate: 67 P: 48 OK: 215 QRS: -71 QRSD: 132 T: 99 QT: 470 QTc: 496 Interpretive Statements SINUS RHYTHM WITH FIRST DEGREE AV BLOCK WITH OCCASIONAL SUPRAVENTRICULAR PREMATURE COMPLEXES POSSIBLE LEFT ATRIAL ENLARGEMENT RIGHT BUNDLE BRANCH BLOCK LEFT ANTERIOR FASCICULAR BLOCK LEFT VENTRICULAR HYPERTROPHY AND ST-T CHANGE CANNOT R/O SEPTAL INFARCT, AGE INDETERMINATE BASELINE ARTIFACT- I, II, AVR, AVL ABNORMAL ECG No previous ECG available for comparison Electronically Signed On 01-20-2025 09:43:33 CDT by Betito Huber D.O.
[2025-01-20] MEDS: SODIUM CHLORIDE 0.9% IV 1,000 ML 999 ML IV CONT (09:07)
[2025-01-20 09:17] LABS: Alanine Aminotransferase 17 U/L (6-35); Albumin Level 4.1 g/dL (3.5-5.1); Alkaline Phosphatase 118 U/L (38-126); Anion Gap 11 mmol/L (4-12); Aspartate Amino Transferase 18 U/L (14-36); Bilirubin,Total 0.5 mg/dL (0.2-1.3); Blood Urea Nitrogen 36 mg/dL (7-17); Calcium 9.8 mg/dL (8.4-10.2); Carbon Dioxide 20 mmol/L (22-30); Chloride 109 mmol/L (98-107); Estimated CRCL calculation 29 ml/min; Estimated Glomerular Filt Rate 17; Glucose 157 mg/dL (65-110); Lipase 98 U/L (23-300); Potassium 4.1 mmol/L (3.4-5.0); Sodium 140 mmol/L (137-145)
[2025-01-20 09:18] LABS: Magnesium 2.1 mg/dL (1.6-2.3)
[2025-01-20 09:30] LABS: Troponin I 0.021 ng/mL (0.000-0.034)
--- OUTSIDE RECORDS SUMMARY | 2025-01-20 09:55 | XMS_ITS | CONTINUITY OF CARE DOCUMENT ---
Author Name shyanalili Address Unknown Organization [facility] Address [address] [place] [address] [address] [place] [address] Phone [phone] Care Team Providers Care Laborer Poultry Hatchery Name Role Phone Edwar JAY, Rigoberto Unavailable JANNETTE JAY, LAYTON Unavailable [phone] JANETH GUZMAN DO Unavailable INSURANCE PROVIDERS Payer name Policy type / Coverage type [place] red constitution party ID [facility] [id number]
--- OUTSIDE RECORDS SUMMARY | 2025-01-20 09:55 | XMS_ITS | Clinical Summary ---
Author Organization [facility] Address [address] [place] [address] Care Team Providers Care Dramatic Art Teacher Name Role Phone Jamaal Ibarra DO Primary Care Provider [phone] Social History Tobacco Use Types Packs/Day Years Used Date Smoking Tobacco: Never Assessed Comments Unknown Sex and Gender Information Value Date Recorded Sex Assigned at Not on file Legal Sex Female 10:23 PM IMPLEMENTATION ANALYST Gender Identity Not on file Sexual [...] patient's age to [place] [address] [facility] Care Teams Dramatic Art Teacher Relationship Specialty Start Date End Date Jamaal Ibarra DO [address] [place] [address] PCP - General INTERNAL MEDICINE 07/02/23
--- OUTSIDE RECORDS SUMMARY | 2025-01-20 09:55 | XMS_ITS | Encounter Summary ---
Author Organization [facility] Address [address] [place] [address] Care Team Providers Care Teenage Babysitter Name Role Phone Jamaal Ibarra DO Primary Care Provider Encounter Details Date Type Department Care Team (Latest Contact Info) Description 03/23/2002 Outpatient Historical HIS [facility] [place] [address] [place] [address] MENSTRUAL DISORDER NEC (Primary Dx) Social History Tobacco Use Types Packs/Day Years Used Date Smoking Tobacco: Never Assessed Comments Unknown Sex and Gender Information Value Date Recorded Sex Assigned at Not on file Legal Sex Female 3:50 AM PUBLICITY CONSULTANT Gender Identity Not on file Sexual Orientation Not on file documented as of this encounter Plan of Treatment Not on file documented as of this encounter Visit Diagnoses Diagnosis Other disorder of menstruation and other abnormal bleeding from female genital tract- Primary documented in this encounter Care Teams Teenage Babysitter Relationship Specialty Start Date End Date Jamaal Ibarra DO [address] [address] PCP - General Internal Medicine 07/11/18 documented as of this encounter
--- OUTSIDE RECORDS SUMMARY | 2025-01-20 09:55 | XMS_ITS | Clinical Summary ---
Author Organization [facility] Address [address] [place] [address] Care Team Providers Care Labor Standards Director Name Role Phone Jamaal Ibarra DO Primary Care Provider Allergies Active Allergy Reactions Criticality Noted Date Comments Benazepril Cough Low 05/05/2008 Latex Itching Low 08/07/2018 Lisinopril Cough Low 03/28/2021 Metoclopramide Hives High 03/28/2021 Metronidazole Swelling Low 10/17/2009 Medications levothyroxine 50 mcg tablet Take 50 mcg by mouth daily designer. Active losartan-hydroC HLOROthiazide (HYZAAR) 50-12.5 mg tablet [...] on file Legal Sex Female 3:50 AM EHR TRAINER Gender Identity Not on file Sexual Orientation Not on file Last Filed Vital Signs Vital Sign Reading Time Taken Comments Blood Pressure 132/83 03/28/2021 9:10 AM CDT Pulse 82 03/28/2021 9:10 AM CDT Temperature 36.9 C (98.5 F) 03/28/2021 9:10 AM CDT Respiratory Rate 20 03/28/2021 9:10 AM CDT Oxygen Saturation 97% 10/27/2018 1:22 PM EHR TRAINER Inhaled Oxygen Concentration - - Weight 114.3 [...] RETINAL EXAM 06/19/2025 06/19/2024, 06/01/[address] [place] [address] [employer] Care Teams Labor Standards Director Relationship Specialty Start Date End Date Jamaal Ibarra DO [address] [facility] [address] [facility] [address] [place] [address] PCP - General Internal Medicine 07/11/18
--- OUTSIDE RECORDS SUMMARY | 2025-01-20 09:55 | XMS_ITS | Clinical Summary ---
Author Organization [facility] Address [address] [place] [address] Care Team Providers Care Tin Recovery Worker Name Role Phone Lebron Pugh V. DO Unavailable [phone] Jamaal Ibarra DO Primary Care Provider [phone] Source Comments [facility],non-owned Affiliates and Associated Physician Practices is amultiple site organization consisting of ambulatory clinics and hospital sitesin [place], [place], [place] and [place]. This disclosure is being madepursuant to the Care Everywhere program and may not contain all information available regarding this patient. Last updated 18.[facility] Allergies Active Allergy Reactions Criticality Noted Date [...] tablet 2 Active vitamin D, ergocalciferol, (DRISDOL) 00200 UNITS capsule 1 Active gabapentin (NEURONTIN) 300 MG capsule 2 Active simvastatin (ZOCOR) 20 MG tablet 1 Active traMADol (ULTRAM) 50 MG tablet 1 014 Active traZODone (DESYREL) 50 MG tablet 6 Active zolpidem (AMBIEN) 10 MG tablet 5 Active megestrol (MEGACE) 40 MG tablet Take 1 Tab by mouth once daily. 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 Not on file Not on file Last Filed Vital Signs Vital Sign Reading Time Taken Comments Blood Pressure 126/74 10/21/2014 11:57 AM CLUB LICENSEE Pulse 102 09/16/2013 1:06 PM CLUB LICENSEE Temperature 36.8 C (98.2 F) 09/16/2013 1:06 PM CLUB LICENSEE Respiratory Rate 20 09/16/2013 1:06 PM CLUB LICENSEE Oxygen Saturation 98% 09/16/2013 1:06 PM CLUB LICENSEE Inhaled Oxygen Concentration - - Weight 89.8 kg (198 lb) 10/21/2014 11:57 AM CLUB LICENSEE Height 172.7 cm (5' 8 ) 10/21/2014 11:57 AM CLUB LICENSEE Body Mass Index 30.11 10/21/2014 11:57 AM CLUB LICENSEE Plan of Treatment Health Maintenance Due Date [...] HPV MRNA E6/E7 Routine 10/21/2014 1:52 PM CLUB LICENSEE Routine gynecological examination MAMMO BILAT SCREENING Routine 09/22/2013 8:09 AM CLUB LICENSEE Screening COMPREHENSIVE METABOLIC PANEL Routine 08/22/2013 8:00 AM CLUB LICENSEE DM w/o Complication Type II, Uncontrolled HTN (hypertension), benign Abdominal pain, RUQ (right upper quadrant) Ketonuria HEMOGLOBIN A1C Routine 08/22/2013 8:00 AM CLUB LICENSEE DM w/o Complication Type II, Uncontrolled MICROALB/CREAT RATIO URINE RANDOM PANEL Routine 08/21/2013 9:29 AM CLUB LICENSEE DM w/o Complication Type II, Uncontrolled from Last 3 Months or Most Recently Relevant to Health Maintenance Results * PAP THIN PREP REFLX HPV (PO REF LAB) (10/21/2014 1:52 PM CLUB LICENSEE) Clinical Information [facility] Comment:Routine exam LMP [facility] [...] has been evaluated with computer assisted technology. Match Marker [facility] Comment: BKA, CT(ASCP) Test Performed at: [email or web address] [address] LAURENCE JO MD ENTIRE ENDOCERVIX / Unknown 10/21/2014 1:52 PM CLUB LICENSEE 10/22/2014 10:09 AM CLUB LICENSEE Bienvenido Mcnair Jr., MD LAB - PATHOLOGY/CYTOL OGY ORDERABLES Final Result [address] [address] * MAMM SCREENING DIGITAL IMAGE BILAT G0202 (09/22/2013 8:09 AM CLUB LICENSEE) Anatomical Region Laterality Modality Breast Bilateral Mammography 09/22/2013 11:5 3 AM CLUB LICENSEE Impressions 09/22/2013 11:56 AM CLUB LICENSEE No malignant abnormality identified. No significant change. BI-RADS category 1. Negative. RECOMMENDATIONS: Routine mammograms in one year. Narrative 09/22/2013 11:56 AM CLUB LICENSEE Screening mammogram: HISTORY: Screening mammogram. Two views [...] * (ABNORMAL) HEMOGLOBIN A1C (08/22/2013 8:00 AM CLUB LICENSEE) Hemoglobin A1c 12.6(H) <5.7 % of total [...] of diabetes for children. Test Performed at: [email or web address] [address] [place] [address] PAPO BENNETT DO,MPH Whole blood specimen (specimen) BLOOD SPECIMEN / Unknown 08/22/2013 4:53 AM CLUB LICENSEE us Salma Hunt RN CASE MGR-TILE PROFESSIONAL LAB - CHEMISTRY ORDERA BLES Final Result [facility] [address] [place] [address] * (ABNORMAL) COMPREHENSIVE METABOLIC PANEL (08/22/2013 8:00 AM CLUB LICENSEE) Glucose 312(H) 65 - 99 mg/dL [facility] [...] 29 U/L [facility] Comment: Test Performed at: [email or web address] [address] [place] [address] PAPO BENNETT DO,MPH Blood specimen (specimen) BLOOD SPECIMEN / Unknown 08/22/2013 4:53 AM CLUB LICENSEE Salma Llanos Marilee RN CASE MGR-TILE PROFESSIONAL LAB - CHEMISTRY ORDERA BLES Final Result Performing Organization Address [facility] de Phone Number [facility] [address] [place] [address] * (ABNORMAL) MICROALB/CREAT RATIO URINE RANDOM PANEL (08/21/2013 9:29 AM CLUB LICENSEE) Creatinine Urine 129 20 - 320 mg/dL [...] within a diagnostic category. Test Performed at: [email or web address] [address] [place] [address] PAPO BENNETT DO,MPH Urine specimen (specimen) URINE SPECIMEN OBTAINED BY CLEAN CATCH PROCEDURE / Unknown 08/21/2013 9:29 AM CLUB LICENSEE 08/22/2013 4:16 AM CLUB LICENSEE Salma Llanos Marilee RN CASE MGR-TILE PROFESSIONAL LAB - URINE CHEMISTRY ORDERABLES Final Result Performing Organization Address [facility] de Phone Number [facility] [address] [place] [address] from Last 3 Months or Most Recently Relevant to Health Maintenance Insurance ANTHEM ANTHEM Advance Directives * FULL RESUSCITATION (Latest Code Status on File) Date Activated Date Inactivated Comments 05/06/2011 1:35 AM 05/08/2011 5:46 AM Care Teams Tin Recovery Worker Relationship Specialty Start Date End Date Jamaal Ibarra DO [address] [place] [phone] PCP - General 06/01/21 Lebron Pugh DO [address] [place] [address] Oncology 06/23/07
--- OUTSIDE RECORDS SUMMARY | 2025-01-20 09:55 | XMS_ITS | Clinical Summary ---
Author Organization [facility] Address [address] [place] [address] Phone Care Team Providers Care Magnetic Prospecting Operator Name Role Phone JeanniesvetaJamaal jernigan Primary Care Provider [phone] Allergies Active Allergy Reactions Criticality Noted Date [...] 2 Active ergocalciferol (VITAMIN D2) 1.25 MG (35786 UT) capsule TAKE 1 CAPSULE BY MOUTH [...] Comments Blood Pressure 128/72 09/05/2022 8:31 AM TEA PLANTATION WORKER Pulse - - Temperature 36.5 C (97.7 F) 09/05/2022 8:31 AM TEA PLANTATION WORKER Respiratory Rate 18 09/05/2022 8:31 AM TEA PLANTATION WORKER Oxygen Saturation - - Inhaled Oxygen Concentration - - Weight 121 kg (267 lb) 09/05/2022 8:31 AM TEA PLANTATION WORKER Height 172.7 cm (5' 8 ) 09/05/2022 8:31 AM TEA PLANTATION WORKER Body Mass Index 40.6 09/05/2022 8:31 AM TEA PLANTATION WORKER Plan of Treatment Health Maintenance Due Date Last Done Comments Influenza Vaccine (Season Ended) 2025 07/07/2020, 07/30/2019, 07/16/2018, Additional history exists Insurance [facility] Care Teams Magnetic Prospecting Operator Relationship Specialty Start Date End Date Jamaal Ibarra DO [address] [place] [address] PCP - General Internal Medicine 05/07/22
[2025-01-20 09:59] LABS: Add Urine Microscopic? YES; Appearance Urine Cloudy (Clear); Bacteria Urine None Seen /hpf; Bilirubin Urine Negative (Negative); Blood Urine Negative (Negative); Budding Yeast Urine Present /hpf; Color Urine Yellow (Yellow); Glucose Urine UA Negative (Negative); Hyaline Casts Urine Present /lpf; Ketones Urine Trace mg/dL (Negative); Leukocyte Esterase Ur Negative LEU/UL (Negative); Need Manual Microscopic Reviewed; Nitrate Urine Negative (Negative); Non Pathogenic Casts >20; Protein Urine 4+ mg/dL (Negative); Squamous Epithelial Cell Urine Few /hpf (Few); WBC Urine 0-5 /hpf (0-3); pH Urine 5.5 (5.0-9.0)
--- NOTE | 2025-01-20 11:44 | ED_ITS ---
HPI - General Adult General Chief complaint: Nausea/Vomiting/Diarrhea Stated complaint: diarrhea x5days, near syncope Time Seen by Provider: 01/20/25 08:51 History of Present Illness HPI narrative: Patient is a 49-year-old female who presents emergency department with chief complaint of abdominal pain diarrhea a patient reports that this been ongoing for the last 5 days reports he feels very dehydrated very weak. Patient states she also feels lightheaded whenever she stands the patient does have history of diabetes and also history of cyclic vomiting syndrome. Related Data Home Medications ?Medication ?Instructions ?Recorded ?Confirmed ?Last Taken ?Type docusate sodium 100 mg capsule 100 mg PO DAILY 11/02/19 08/20/24 06/01/24 08:00 History (Colace) sertraline 100 mg tablet (Zoloft) 100 mg PO DAILY 11/02/19 08/20/24 03/20/23 21:00 History zolpidem 10 mg tablet 10 mg PO QPM PRN Insomnia 11/02/19 08/20/24 03/20/23 21:00 History prazosin 2 mg capsule (Minipress) 2 mg PO HS 07/03/20 08/20/24 03/20/23 21:00 History coenzyme Q10 100 mg capsule (Co 100 mg PO DAILY 10/03/21 08/20/24 06/01/24 20:00 History Q-10) trazodone 50 mg tablet 50 mg PO HS 05/21/22 08/20/24 06/01/24 20:00 History Humalog KwikPen Insulin See Protocol subcut TIDWMEAL 03/22/23 08/20/24 08/05/23 09:00 History atorvastatin 10 mg tablet 20 mg PO QHS 04/02/23 08/20/24 06/01/24 20:00 History sumatriptan succinate 6 mg/0.5 mL 6 mg subcut ONCE PRN Migraine 08/01/23 08/20/24 Unknown History subcutaneous pen injector Headache alprazolam 0.5 mg tablet 0.5 mg PO TID 09/10/23 08/20/24 06/01/24 20:00 History blood-glucose sensor (FreeStyle #1 ea 05/13/24 08/20/24 Unknown History Sharita 3 Sensor device) glucagon 3 mg/actuation nasal 3 mg intranasal PRN PRN 05/13/24 08/20/24 Unknown History spray (Baqsimi) Hypoglycemia insulin glargine 100 unit/mL (3 38 unit subcut BID 05/13/24 08/20/24 Unknown History mL) subcutaneous pen (Lantus Solostar U-100 Insulin) pen needle, diabetic 32 gauge x #1,200 ea 05/13/24 08/20/24 Unknown History (BD Mer 2nd Gen Pen Needle) pioglitazone 15 mg tablet 15 mg PO DAILY 05/13/24 08/20/24 Unknown History cholecalciferol (vitamin D3) 1,250 1,250 mcg PO DAILY 06/02/24 08/20/24 06/01/24 08:00 History mcg (50,000 unit) tablet prochlorperazine maleate 10 mg 20 mg PO Q4-6H PRN Nausea 06/02/24 08/20/24 Unknown History tablet cholecalciferol (vitamin D3) 125 125 mcg PO DAILY 08/20/24 08/20/24 Unknown History mcg (5,000 unit) tablet zinc citrate 11 mg chewable tablet mg PO 08/20/24 08/20/24 Unknown History Allergies Allergy/AdvReac Type Severity Reaction Status Date / Time hydralazine Allergy Severe Itching Verified 08/20/24 07:40 latex Allergy Severe itching Verified 08/20/24 07:40 metoclopramide Allergy Severe Redness of Verified 08/20/24 07:40 Skin Review of Systems 2 Review of Systems: A 10 system review of systems was completed on the patient and is negative except for what is stated in the HPI. Nursing and ancillary documentation was reviewed. 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 Colon cancer screening Gastroparesis Diabetes type 2, uncontrolled Irritable bowel syndrome with constipation Peripheral edema Acute infective gastroenteritis BREEN (nonalcoholic steatohepatitis) Bacteremia Cyclic vomiting syndrome Insulin dependent diabetes mellitus Irritable bowel syndrome Hyperlipidemia Hypertension Gastroesophageal reflux disease Acute renal failure Sepsis Hospital discharge follow-up Traumatic hematoma of right knee Vitamin B 12 deficiency Anxiety Depression Fatty liver Hypothyroidism Fibromyalgia Rheumatoid arthritis Endometriosis Herpes Uterine fibroid Peptic ulcer Sleep apnea Bronchitis Surgical History Surgical History H/O eye surgery (~09/20/22) History of cholecystectomy History of detached retina repair History of partial knee replacement History of hysterectomy History of laparoscopy Removal of uterine fibroids Family History Family History Mother Diabetes mellitus Hypertension Family history of elevated blood lipids Sibling Family history of obesity Patient's sister is in good health Father Hypertension Family history of cardiovascular disease Other Acute myocardial infarction Family history of arthritis Family history of heart disease in male family member before age 55 Family history of thyroid disease Social History Social History Social History: Lives alone in [place]. with no children. No alcohol, tobacco, illicit substance abuse. Surrogate decision maker: Susan Ghoshzier, sister. Code status: Full code. Caffeine-daily Smoking status: Never smoker Alcohol intake: never Drinks per week: 1 Alcohol use details: rarely Substance use: never Substance use type: does not use Do You Feel Safe in your Home?: Yes Lack of Transportation: No Lack of Food: Never True Current Housing: I Have Housing Concerned About Future Housing: No Difficulty Paying Gas/Electric Bills: No Difficulty Paying for Meds: No Currently Unemployed: No Education: Associate Degree Difficulty w/ Childcare or Family Care: No Living arrangements: with family Gender identity (if verbalized by the patient): Female Spiritual care concerns: No Exam 2 Narrative: GENERAL: Well-appearing, well-nourished, and in no acute distress. HEAD: Normocephalic, atraumatic. EYES: PERRLA and EOMI. ENT: Nares clear, no rhinorrhea or epistaxis. Mucous membranes moist. NECK: Supple. CHEST: Clear to auscultation. No respiratory distress. HEART: Regular rate and rhythm. No murmur heard. Normal peripheral pulses. ABDOMEN: Soft, diffuse mild tenderness, nondistended, normal active bowel sounds. EXTREMITIES: Normal range of motion. No edema. SKIN: Warm, dry, no rash. NEURO: No focal deficits. Alert and oriented x3. PSYCH: Normal mood and affect. Course Vital Signs Vital signs: Vital Signs Temperature 36.7 C 01/20/25 08:31 Pulse Rate 80 01/20/25 08:31 Respiratory Rate 20 01/20/25 08:31 Pulse Oximetry 98 01/20/25 08:31 Temperature 36.7 C 01/20/25 08:31 Pulse Rate 98 01/20/25 10:09 Respiratory Rate 20 01/20/25 08:31 Blood Pressure 144/66 H 01/20/25 10:09 Pulse Oximetry 98 01/20/25 08:31 Medical Decision Making MDM Narrative Medical decision making narrative: Differential diagnosis includes intra-abdominal infection, diverticulitis, colitis, bowel obstruction, cyclic vomiting syndrome, dehydration Laboratory studies were obtained on the patient showed a CBC with a white count of 11.2 hemoglobin was 12.6 electrolytes showed a BUN of 36 and a creatinine of 2.94 patient's creatinine has increased from 2.5 Patient received IV fluids and antiemetics and pain control in the emergency department. CT scan of the abdomen pelvis showed no acute abnormality Vital Signs Vital Signs: Vital Signs Temperature 36.7 C 01/20/25 08:31 Pulse Rate 80 01/20/25 08:31 Respiratory Rate 20 01/20/25 08:31 Pulse Oximetry 98 01/20/25 08:31 Temperature 36.7 C 01/20/25 08:31 Pulse Rate 98 01/20/25 10:09 Respiratory Rate 20 01/20/25 08:31 Blood Pressure 144/66 H 01/20/25 10:09 Pulse Oximetry 98 01/20/25 08:31 Lab Data 01/20/25 08:40 01/20/25 08:40 Labs: Lab Results 01/20/25 01/20/25 01/20/25 Range/Units 08:40 09:33 12:08 WBC 11.2 H (4.5-10.0) K/mm3 RBC 4.39 (4.2-5.4) M/mm3 Hgb 12.6 (12.0-15.0) g/dL Hct 40.9 (37.0-47.0) % MCV 93.2 (80-100) fl MCH 28.7 (26-34) pg MCHC 30.8 L (32-36) g/dl RDW 13.5 (11.5-14.5) % Plt Count 239 (150-375) k/mm3 MPV 10.1 (7.4-10.4) fl Immature Gran % (Auto) 0.4 (0-0.5) % Neut % (Auto) 76.0 H (45.5-73.1) % Lymph % (Auto) 16.4 L (18.3-44.2) % [place] % (Auto) 4.8 (2.6-8.5) % Eos % (Auto) 2.0 (0-4.4) % Baso % (Auto) 0.4 (0.2-1.2) % Lymph # (Auto) 1.83 (0.9-3.2) K/mm3 [place] # (Auto) 0.5 (0.1-0.6) K/mm3 Eos # (Auto) 0.2 (0-0.3) K/mm3 Baso # (Auto) 0.0 (0.0-0.1) K/mm3 Abs Immat Gran (auto) 0.05 H (0.00-0.031) K/mm3 Absolute Neuts (auto) 8.5 H (1.3-6.7) K/mm3 Absolute Nucleated RBC 0.000 (0.0-0.012) K/mm3 Nucleated RBC % 0.0 (0.0-0.2) % Sodium 140 (137-145) mmol/L Potassium 4.1 (3.4-5.0) mmol/L Chloride 109 H (98-107) mmol/L Carbon Dioxide 20 L (22-30) mmol/L Anion Gap 11 (4-12) mmol/L BUN 36 H (7-17) mg/dL Creatinine 2.94 H (0.7-1.0) mg/dL Estim Creat Clear Calc 29 ml/min Estimated GFR 17 L (59 - ) Glucose 157 H (65-110) mg/dL Calcium 9.8 (8.4-10.2) mg/dL Magnesium 2.1 (1.6-2.3) mg/dL Total Bilirubin 0.5 (0.2-1.3) mg/dL AST 18 (14-36) U/L ALT 17 (6-35) U/L Alkaline Phosphatase 118 (38-126) U/L Troponin I 0.021 Pending (0.000-0.034) ng/mL Total Protein 7.0 (6.3-8.2) g/dL Albumin 4.1 (3.5-5.1) g/dL Lipase 98 (23-300) U/L Urine Color Yellow (Yellow) Urine Appearance Cloudy H (Clear) Urine pH 5.5 (5.0-9.0) Ur Specific [place] 1.020 (1.001-1.035) Urine Protein 4+ H (Negative) mg/dL Urine Glucose (UA) Negative (Negative) mg/dL Urine Ketones Trace H (Negative) mg/dL Ur Blood (Man) Negative (Negative) Urine Nitrate Negative (Negative) Urine Bilirubin Negative (Negative) Urine Urobilinogen 1.0 (<2.0) mg/dL Add Ur Microanalysis Reviewed Leukocyte Esterase Rfl Negative (Negative) LETY/UL Urine RBC 3-5 H (0-2) /hpf Urine WBC 0-5 (0-3) /hpf Ur Squamous Epith Cells Few (Few) /hpf Urine Bacteria None seen /hpf Urine Casts >20 Hyaline Casts Present (None) /lpf Urine Yeast (Budding) Present H (None) /hpf Discharge Plan Discharge Clinical Impression: Diarrhea, Acute kidney injury, Acute dehydration Patient Disposition: Still a Patient Condition: Stable Patient Language: Burmese Prescriptions: No Action insulin glargine [Lantus Solostar U-100 Insulin] 100 unit/mL (3 mL) insulin pen 38 unit subcut BID (DME) pen needle, diabetic [BD Mer 2nd Gen Pen Needle] 32 gauge x 5/32 needle See Rx Instructions .ROUTE .MEDSUPPLY Qty: 1200 Rx Instructions: As directed pioglitazone 15 mg tablet 15 mg PO DAILY Baqsimi 3 mg/actuation spray,non-aerosol 3 mg intranasal PRN PRN (Reason: Hypoglycemia) (DME) FreeStyle Sharita 3 Sensor Device See Rx Instructions .ROUTE .MEDSUPPLY Qty: 1 Rx Instructions: As directed Trulance 3 mg tablet 3 mg PO DAILY Qty: 90 3RF docusate sodium [Colace] 100 mg capsule 100 mg PO DAILY sertraline [Zoloft] 100 mg tablet 100 mg PO DAILY zolpidem 10 mg tablet 10 mg PO QPM PRN (Reason: Insomnia) atorvastatin 10 mg tablet 20 mg PO QHS alprazolam 0.5 mg tablet 0.5 mg PO TID spironolactone 25 mg tablet 25 mg PO DAILY Qty: 30 11RF bumetanide 1 mg tablet 1 mg PO BID Qty: 60 6RF zinc citrate 11 mg tablet,chewable PO cholecalciferol (vitamin D3) 125 mcg (5,000 unit) tablet 125 mcg PO DAILY acyclovir 400 mg tablet 400 mg PO BID Qty: 180 3RF Humalog KwikPen Insulin See Protocol subcut TIDWMEAL Protocol: Insulin Corrective High-Dose Condition: glucose < 70 mg/dl Dose/Route: Follow hypoglycemia order Condition: glucose 70-200 mg/dl Dose/Route: No additional insulin Condition: glucose 201-250 mg/dl Dose/Route: 4 units sub-Q Condition: glucose 251-300 mg/dl Dose/Route: 5 units sub-Q Condition: glucose 301-350 mg/dl Dose/Route: 6 units sub-Q Condition: glucose 351-400 mg/dl Dose/Route: 8 units sub-Q Condition: glucose > 400 mg/dl Dose/Route: Call MD Protocol Text: *No Correction Dose at Bedtime* Rx Instructions: Uses sliding scale for blood glucose greater than 150 ondansetron 4 mg tablet,disintegrating 4 mg PO Q8H PRN (Reason: nausea and vomiting) Qty: 10 0RF prochlorperazine maleate 10 mg tablet 20 mg PO Q4-6H PRN (Reason: Nausea) cholecalciferol (vitamin D3) 1,250 mcg (50,000 unit) tablet 1,250 mcg PO DAILY prazosin [Minipress] 2 mg Capsule 2 mg PO HS trazodone 50 mg Tablet 50 mg PO HS sumatriptan succinate 6 mg/0.5 mL pen injector 6 mg subcut ONCE PRN (Reason: Migraine Headache) Rx Instructions: may repeat dose once in 1 hour if not relieved coenzyme Q10 [Co Q-10] 100 mg capsule 100 mg PO DAILY losartan 100 mg tablet 100 mg PO DAILY Qty: 90 1RF amitriptyline 25 mg tablet 50 mg PO HS Qty: 180 1RF metoprolol succinate 50 mg tablet extended release 24 hr See Rx Instructions .ROUTE .COMPLEX Qty: 90 1RF Dose Instruction: TAKE 1 TABLET BY MOUTH DAILY Rx Instructions: TAKE 1 TABLET BY MOUTH DAILY pantoprazole 40 mg tablet,delayed release (DR/EC) 40 mg PO DAILY PRN (Reason: Nausea) Qty: 90 1RF amlodipine 5 mg tablet See Rx Instructions .ROUTE .COMPLEX Qty: 90 1RF Dose Instruction: TAKE 1 TABLET BY MOUTH DAILY Rx Instructions: TAKE 1 TABLET BY MOUTH DAILY lubiprostone 24 mcg capsule See Rx Instructions .ROUTE .COMPLEX Qty: 60 6RF Dose Instruction: TAKE 1 CAPSULE BY MOUTH TWICE DAILY Rx Instructions: TAKE 1 CAPSULE BY MOUTH TWICE DAILY topiramate [Topamax] 25 mg capsule, sprinkle 50 mg PO BID Qty: 360 1RF Rx Instructions: titrate up to 50mg bid as directed Follow-up/Referrals: Jamaal Ibarra, [Primary Care Provider] - Time of Disposition: 12:33
--- NOTE | 2025-01-20 12:30 | PM.IMHP ---
H&P: HPI History of Present Illness Date/Time: 01/20/25 13:30 Chief Complaint: Abdominal pain and diarrhea. Narrative: This is a 49-year-old female with history of irritable bowel syndrome with constipation, cyclic vomiting syndrome, insulin-dependent diabetes, hypertension, hyperlipidemia, and anxiety presented to the emergency department with complaints of abdominal pain and diarrhea. She has not felt well for 5 days with symptoms to include mostly right-sided abdominal discomfort which she describes as a fullness, nausea, and diarrhea. The diarrhea has been about every 2 hours but is finally slowing down today. She feels weak and has been feeling lightheaded when standing. She has also been fatigued for about 6 weeks, sometimes sleeping up to 16 to 20 hours a day. She has not tried taking anything for her symptoms. It is noted that she take stool softeners, fiber gummies, and lubiprostone due to chronic constipation. She denies fever, chills, sweats, vomiting, melena, hematochezia, and dysuria. No sick contacts, recent antibiotics, or recent travel. In the ED: She was afebrile on arrival with stable vital signs. Labs were significant for WBC count of 11.2, hemoglobin 12.6, BUN 36, creatinine 2.94, glucose 157. Urinalysis was positive for 4+ protein, trace ketones, 3 to 5 RBC, and budding yeast. CT scan of the abdomen and pelvis showed no acute findings but did note hepatosplenomegaly and fecal stasis within the colon. Review of Systems Review of Systems: Twelve systems were reviewed. No cold or flu symptoms. She denies chest pain shortness of breath. Complains of symptoms of a yeast infection and asking for Diflucan. Frequently fatigued, occasionally wakes at night gasping for air or snoring. Has intermittent lower extremity edema. Denies decrease in urine output. No dysuria. Except as documented, all other systems were reviewed and are negative. 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 Gastroparesis Irritable bowel syndrome with constipation Cyclic vomiting syndrome Insulin dependent diabetes mellitus Hyperlipidemia Hypertension Gastroesophageal reflux disease Vitamin B 12 deficiency Anxiety Depression Hypothyroidism Fibromyalgia Rheumatoid arthritis Endometriosis Herpes Uterine fibroid Peptic ulcer Bronchitis Surgical History Surgical History (Updated 01/20/25 @ 19:53 by Henny Herrera PA-C) History of cholecystectomy History of detached retina repair History of partial knee replacement History of hysterectomy History of laparoscopy Removal of uterine fibroids Family History Family History Mother Diabetes mellitus Hypertension Family history of elevated blood lipids Sibling Family history of obesity Patient's sister is in good health Father Hypertension Family history of cardiovascular disease Other Acute myocardial infarction Family history of arthritis Family history of heart disease in male family member before age 55 Family history of thyroid disease Social History Social History Social History: Lives alone in [place]. with no children. No alcohol, tobacco, illicit substance abuse. Surrogate decision maker: Susan Mariano, . Code status: Full code. Caffeine-daily Smoking status: Never smoker Alcohol intake: never Drinks per week: 1 Alcohol use details: rarely Substance use: never Substance use type: does not use Do You Feel Safe in your Home?: Yes Lack of Transportation: No Lack of Food: Never True Current Housing: I Have Housing Concerned About Future Housing: No Difficulty Paying Gas/Electric Bills: No Difficulty Paying for Meds: No Currently Unemployed: No Education: Associate Degree Difficulty w/ Childcare or Family Care: No Living arrangements: with family Spiritual care concerns: No Meds Home Medications and Allergies Home Medications ?Medication ?Instructions ?Recorded ?Confirmed ?Type docusate sodium 100 mg capsule 100 mg PO DAILY 11/02/19 01/20/25 History (Colace) sertraline 100 mg tablet (Zoloft) 100 mg PO DAILY 11/02/19 01/20/25 History zolpidem 10 mg tablet 10 mg PO QPM PRN Insomnia 11/02/19 01/20/25 History prazosin 2 mg capsule (Minipress) 2 mg PO HS 07/03/20 01/20/25 History coenzyme Q10 100 mg capsule (Co 100 mg PO DAILY 10/03/21 01/20/25 History Q-10) trazodone 50 mg tablet 50 mg PO HS 05/21/22 01/20/25 History Humalog KwikPen Insulin See Protocol subcut TIDWMEAL 03/22/23 01/20/25 History atorvastatin 10 mg tablet 20 mg PO QHS 04/02/23 01/20/25 History ondansetron 4 mg disintegrating 4 mg PO Q8H PRN nausea and 06/03/23 01/20/25 Rx tablet vomiting #10 tabs sumatriptan succinate 6 mg/0.5 mL 6 mg subcut ONCE PRN Migraine 08/01/23 01/20/25 History subcutaneous pen injector Headache alprazolam 0.5 mg tablet 0.5 mg PO TID 09/10/23 01/20/25 History blood-glucose sensor (FreeStyle #1 ea 05/13/24 01/20/25 History Sharita 3 Sensor device) glucagon 3 mg/actuation nasal 3 mg intranasal PRN PRN 05/13/24 01/20/25 History spray (Baqsimi) Hypoglycemia insulin glargine 100 unit/mL (3 38 unit subcut BID 05/13/24 01/20/25 History mL) subcutaneous pen (Lantus Solostar U-100 Insulin) pen needle, diabetic 32 gauge x #1,200 ea 05/13/24 01/20/25 History (BD Mer 2nd Gen Pen Needle) pioglitazone 15 mg tablet 15 mg PO DAILY 05/13/24 01/20/25 History cholecalciferol (vitamin D3) 1,250 1,250 mcg PO WEEKLY 06/02/24 01/20/25 History mcg (50,000 unit) tablet prochlorperazine maleate 10 mg 20 mg PO Q4-6H PRN Nausea 06/02/24 01/20/25 History tablet bumetanide 1 mg tablet 1 mg PO BID #60 tabs 06/25/24 01/20/25 Rx spironolactone 25 mg tablet 25 mg PO DAILY #30 tabs 06/25/24 01/20/25 Rx acyclovir 400 mg tablet 400 mg PO BID #180 tabs 08/20/24 01/20/25 Rx cholecalciferol (vitamin D3) 125 125 mcg PO DAILY 08/20/24 01/20/25 History mcg (5,000 unit) tablet zinc citrate 11 mg chewable tablet 11 mg PO DAILY 08/20/24 01/20/25 History losartan 100 mg tablet 100 mg PO DAILY #90 tabs 09/25/24 01/20/25 Rx amitriptyline 25 mg tablet 50 mg (2 x 25 mg) PO HS #180 tabs 11/18/24 01/20/25 Rx metoprolol succinate 50 mg See Rx Instructions .Route 11/24/24 01/20/25 Rx tablet,extended release 24 hr .COMPLEX #90 tabs pantoprazole 40 mg tablet,delayed 40 mg PO DAILY PRN Nausea #90 tabs 11/24/24 01/20/25 Rx release amlodipine 5 mg tablet See Rx Instructions .Route 01/04/25 01/20/25 Rx .COMPLEX #90 tabs lubiprostone 24 mcg capsule See Rx Instructions .Route 01/04/25 01/20/25 Rx .COMPLEX #60 caps topiramate 25 mg sprinkle capsule 50 mg (2 x 25 mg) PO BID #360 caps 01/12/25 01/20/25 Rx (Topamax) Allergies Allergy/AdvReac Type Severity Reaction Status Date / Time hydralazine Allergy Severe Itching Verified 08/20/24 07:40 latex Allergy Severe itching Verified 08/20/24 07:40 metoclopramide Allergy Severe Redness of Verified 08/20/24 07:40 Skin Vital Signs Vital Signs - 24 hr 01/20/25 08:31 01/20/25 10:09 Temperature 98.1 F Pulse Rate 80 98 Respiratory Rate 20 Blood Pressure 144/66 H Pulse Oximetry 98 Exam Narrative: General: Nontoxic-appearing female sitting up in bed in no acute distress. Weight: 120.2 kg. BMI: 43.0. HEENT: Right pupil is cloudy. Extraocular motions intact. Sclera anicteric. Tacky mucous membranes. Neck: Supple. Exam limited due to neck circumference. Respiratory: Respirations are nonlabored and lungs are clear to auscultation bilaterally. Cardiovascular: Regular rate and rhythm with S1-S2. Gastrointestinal: Abdomen is soft, obese, nontender, and nondistended with positive bowel sounds. No guarding or rebound tenderness. Skin: Warm and dry. Extremities: No cyanosis or clubbing. Mild lower extremity edema. Neurological: Alert. Cranial nerves 2-12 are grossly intact. No gross focal deficits to casual conversation. Psychiatric: Cooperative with appropriate mood and flat affect. H&P: Results Labs Labs: Short CBC 01/20/25 Range/Units 08:40 WBC 11.2 H (4.5-10.0) K/mm3 Hgb 12.6 (12.0-15.0) g/dL Hct 40.9 (37.0-47.0) % Plt Count 239 (150-375) k/mm3 BMP 01/20/25 08:40 Sodium 140 Potassium 4.1 Chloride 109 H Carbon Dioxide 20 L BUN 36 H Creatinine 2.94 H Glucose 157 H Calcium 9.8 Cardiac Enzymes 01/20/25 Range/Units 08:40 Troponin I 0.021 (0.000-0.034) ng/mL Liver Function 01/20/25 Range/Units 08:40 Total Bilirubin 0.5 (0.2-1.3) mg/dL AST 18 (14-36) U/L ALT 17 (6-35) U/L Alkaline Phosphatase 118 (38-126) U/L Albumin 4.1 (3.5-5.1) g/dL Urine 01/20/25 Range/Units 09:33 Urine Color Yellow (Yellow) Urine Appearance Cloudy H (Clear) Urine pH 5.5 (5.0-9.0) Ur Specific [place] 1.020 (1.001-1.035) Urine Protein 4+ H (Negative) mg/dL Urine Glucose (UA) Negative (Negative) mg/dL Imaging Abdomen/Pelvis CT 01/20/25 10:15 IMPRESSION: Hepatosplenomegaly. Otherwise, no acute findings within the abdomen or pelvis, as detailed above. Assessment and Plan Assessment and plan (1) Acute on chronic renal failure: Code(s): N17.9 - Acute kidney failure, unspecified; N18.9 - Chronic kidney disease, unspecified Status: Acute (2) Dehydration: Code(s): E86.0 - Dehydration Status: Acute (3) Diarrhea: Code(s): R19.7 - Diarrhea, unspecified Status: Acute (4) Irritable bowel syndrome with constipation: Code(s): K58.1 - Irritable bowel syndrome with constipation Status: Acute (5) Suspected sleep apnea: Code(s): R29.818 - Other symptoms and signs involving the nervous system Status: Acute (6) Insulin dependent diabetes mellitus: Status: Acute (7) Hypertension: Code(s): I10 - Essential (primary) hypertension Status: Acute Plan The patient presented to the emergency department for evaluation of abdominal pain and diarrhea as detailed in HPI. Labs, imaging, EKG, and all reports were personally reviewed. CT of the abdomen and pelvis did not show any acute findings but did note fecal stasis of the colon. She has irritable bowel syndrome with constipation for which she takes stool softeners, fiber gummies, and lubiprostone which will be continued. I wonder if she was having overflow diarrhea. Unlikely to be infectious. She has an acute on chronic kidney injury which is likely related to dehydration diarrhea and decreased oral intake the last 5 days. This would also explain feelings of lightheadedness and dizziness upon standing. She will be hydrated overnight with close monitoring of volume status, renal function, electrolytes. Check orthostatic vital signs. Continue basal insulin. Initiate sliding scale insulin, Accu-Cheks, and hypoglycemic protocol. Monitor blood pressures. Apnea link ordered to screen for obstructive sleep apnea given prolonged fatigue. Her home medications will be reviewed and resumed appropriate. Findings and treatment plan were discussed with the patient. Questions were solicited and answered to satisfaction. The patient's medical management will be taken over by the hospitalist team in a.m. Quality VTE Prophylaxis VTE prophylaxis: pharmacologic ordered The patient has been admitted under observation status. Hospitalist MIPS Advance Care Plan I have confirmed that the patient's Advanced Care Plan is present, code status is documented, or surrogate decision maker is listed in patient medical record.: Yes Medication Reconciliation I have utilized all available resources to obtain, update and review the patients current medications (includes all prescriptions, OTC, herbals, cannabis, and nutritional supplements).: Yes
--- OUTSIDE RECORDS SUMMARY | 2025-01-20 15:13 | XMS_ITS | Encounter Summary ---
Author Organization [facility] Healthcare Address [address] [place] [address] Care Team Providers Care Head Operator Name Role Phone Jamaal Ibarra DO Primary Care Provider [phone] Reason for Visit * Diagnostic Imaging (Routine) - Closed Specialty Diagnoses / Procedures Referred By Liz borrero Referred To Contact Procedures Breast Imaging US Outside Reference Saul Ortiz NP Phone: tel: fax: Referral ID Status Reason Start Date Expiration Date Visits Re quested Visits Authorized [id number] Closed 10/16/2022 11/15/2023 1 1 Encounter Details Date Type Department Care Team (Late st Contact Info) Description 04/29/2020 Hospital Encounter [facility] [address] [place] [id number] Social History Tobacco Use Types Packs/Day [...] on file Legal Sex Female 12:16 AM 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 There will be no report generated by a [facility] Radiologist. Narrative [facility] - 10/16/2022 11:47 AM SCRAPER LOADER OPERATOR EXAMINATION: Images For Reference Purposes Only us Saul Ortzi NP IMG MAMMO PROCEDURES Final Result [facility] documented in this encounter Visit Diagnoses Not on filedocumented in this encounter Care Teams Head Operator Relationship Specialty Start Date End Date Jamaal Ibarra DO PCP - General 10/22/17 documented as of this encounter
--- OUTSIDE RECORDS SUMMARY | 2025-01-20 15:14 | XMS_ITS | Encounter Summary ---
Author Organization [facility] Address [address] [place] [address] Phone Care Team Providers Care Health And Safety Advisor Name Role Phone Jamaal Ibarra DO Primary Care Provider [phone] Encounter Details Date Type Department Care Team (Late st Contact Info) Description 08/03/2021 Orders Only [facility] [address] [facility] 5th [place] [address] [place] [id number] Jana Medley CMA Social History Tobacco Use Types Packs/Day Years Used Date Smoking Tobacco: Never Comments Unknown Sex and Gender Information Value Date Recorded Sex Assigned at Not on file Legal Sex Female 12:16 AM IRON HANDLER Gender Identity Not on file Sexual Orientation Not on file documented as of this encounter Plan of Treatment Not on file documented as of this encounter Visit Diagnoses Not on filedocumented in this encounter Care Teams Health And Safety Advisor Relationship Specialty Start Date End Date Jamaal Ibarra DO PCP - General 10/22/17 documented as of this encounter
--- OUTSIDE RECORDS SUMMARY | 2025-01-20 15:14 | XMS_ITS | Encounter Summary ---
Author Organization [facility] Healthcare Address [address] [place] [address] Care Team Providers Care Student Education Specialist Name Role Phone Jamaal Ibarra DO Primary Care Provider [phone] Reason for Visit * Diagnostic Imaging (Routine) - Closed Specialty Diagnoses / Procedures Referred By Liz borrero Referred To Contact Procedures Breast Imaging Diagnostic Outside Reference Saul Ortiz NP Phone: tel: fax: Referral ID Status Reason Start Date Expiration Date Visits Re quested Visits Authorized [id number] Closed 10/16/2022 11/15/2023 1 1 Encounter Details Date Type Department Care Team (Late st Contact Info) Description 07/15/2019 12:05 AM CDT Hospital Encounter [facility] [address] [place] [id number] Social History Tobacco Use Types Packs/Day Years [...] on file Legal Sex Female 12:16 AM ENERGY TRADER Gender Identity Not on file Sexual Orientation [...] CDT) Impressions [facility] - 10/16/2022 11:47 AM ENERGY TRADER These images are for Reference purposes only and have not been reviewed by [facility]. There will be no report generated by a [facility] Radiologist. Narrative [facility] - 10/16/2022 11:47 AM ENERGY TRADER EXAMINATION: Images For Reference Purposes Only us Saul Ortiz NP IMG MAMMO PROCEDURES Final Result [facility] documented in this encounter Visit Diagnoses Not on filedocumented in this encounter Care Teams Student Education Specialist Relationship Specialty Start Date End Date Jamaal Ibarra DO PCP - General 10/22/17 documented as of this encounter
--- OUTSIDE RECORDS SUMMARY | 2025-01-20 15:14 | XMS_ITS | Clinical Summary ---
Author Organization [facility] Address [address] [place] [address] Phone Care Team Providers Care Weighing Station Operator Name Role Phone JeanniesvetaJamaal jernigan Primary Care Provider [phone] Allergies Active Allergy Reactions Criticality Noted Date [...] 2 Active ergocalciferol (VITAMIN D2) 1.25 MG (64618 UT) capsule TAKE 1 CAPSULE BY MOUTH [...] Comments Blood Pressure 128/72 09/05/2022 8:31 AM METAL STUD FRAMER Pulse - - Temperature 36.5 C (97.7 F) 09/05/2022 8:31 AM METAL STUD FRAMER Respiratory Rate 18 09/05/2022 8:31 AM METAL STUD FRAMER Oxygen Saturation - - Inhaled Oxygen Concentration - - Weight 121 kg (267 lb) 09/05/2022 8:31 AM METAL STUD FRAMER Height 172.7 cm (5' 8 ) 09/05/2022 8:31 AM METAL STUD FRAMER Body Mass Index 40.6 09/05/2022 8:31 AM METAL STUD FRAMER Plan of Treatment Health Maintenance Due Date Last Done Comments Influenza Vaccine (Season Ended) 2025 07/07/2020, 07/30/2019, 07/16/2018, Additional history exists Insurance [facility] Care Teams Weighing Station Operator Relationship Specialty Start Date End Date Jamaal Ibarra DO [address] [place] [address] PCP - General Internal Medicine 05/07/22
--- OUTSIDE RECORDS SUMMARY | 2025-01-20 15:14 | XMS_ITS | CONTINUITY OF CARE DOCUMENT ---
Author Name shyanalili Address Unknown Organization [facility] Address [address] [place] [address] [address] [place] [address] Phone [phone] Care Team Providers Care Camera Technician Name Role Phone Edwar JAY, Rigoberto Unavailable [phone] JANNETTE JAY, LAYTON Unavailable [phone] JANETH GUZMAN DO Unavailable INSURANCE PROVIDERS Payer name Policy type / Coverage type [place] [employer] party ID [facility] [id number]
--- OUTSIDE RECORDS SUMMARY | 2025-01-20 15:14 | XMS_ITS | Clinical Summary ---
Author Organization [facility] everbill Address [address] [facility] [place] [address] Care Team Providers Care Tool Design Drafter Name Role Phone Lebron Pugh V. DO Unavailable [phone] Jamaal Ibarra DO Primary Care Provider [phone] [facility],non-owned Affiliates and Associated Physician Practices is amultiple site organization consisting of ambulatory clinics and hospital sitesin [place], [place], [place] and [place]. This disclosure is being madepursuant to the Care Everywhere program and may not contain all information available regarding this patient. Last updated 18.[facility] Allergies Active Allergy Reactions Criticality Noted Date [...] tablet 2 Active vitamin D, ergocalciferol, (DRISDOL) 64620 UNITS capsule 1 Active gabapentin (NEURONTIN) 300 MG capsule 2 Active simvastatin (ZOCOR) 20 MG tablet 1 Active traMADol (ULTRAM) 50 MG tablet 1 014 Active traZODone (DESYREL) 50 MG tablet 6 Active zolpidem (AMBIEN) 10 MG tablet 5 Active megestrol (MEGACE) 40 MG tablet Take 1 Tab by mouth once daily. 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 Not on file Not on file Last Filed Vital Signs Vital Sign Reading Time Taken Comments Blood Pressure 126/74 10/21/2014 11:57 AM BOX SEALING INSPECTOR Pulse 102 09/16/2013 1:06 PM BOX SEALING INSPECTOR Temperature 36.8 C (98.2 F) 09/16/2013 1:06 PM BOX SEALING INSPECTOR Respiratory Rate 20 09/16/2013 1:06 PM BOX SEALING INSPECTOR Oxygen Saturation 98% 09/16/2013 1:06 PM BOX SEALING INSPECTOR Inhaled Oxygen Concentration - - Weight 89.8 kg (198 lb) 10/21/2014 11:57 AM BOX SEALING INSPECTOR Height 172.7 cm (5' 8 ) 10/21/2014 11:57 AM BOX SEALING INSPECTOR Body Mass Index 30.11 10/21/2014 11:57 AM BOX SEALING INSPECTOR Plan of Treatment Health Maintenance Due Date [...] HPV MRNA E6/E7 Routine 10/21/2014 1:52 PM BOX SEALING INSPECTOR Routine gynecological examination MAMMO BILAT SCREENING Routine 09/22/2013 8:09 AM BOX SEALING INSPECTOR Screening COMPREHENSIVE METABOLIC PANEL Routine 08/22/2013 8:00 AM BOX SEALING INSPECTOR DM w/o Complication Type II, Uncontrolled HTN (hypertension), benign Abdominal pain, RUQ (right upper quadrant) Ketonuria HEMOGLOBIN A1C Routine 08/22/2013 8:00 AM BOX SEALING INSPECTOR DM w/o Complication Type II, Uncontrolled MICROALB/CREAT RATIO URINE RANDOM PANEL Routine 08/21/2013 9:29 AM BOX SEALING INSPECTOR DM w/o Complication Type II, Uncontrolled from Last 3 Months or Most Recently Relevant to Health Maintenance Results * PAP THIN PREP REFLX HPV (PO REF LAB) (10/21/2014 1:52 PM BOX SEALING INSPECTOR) Clinical Information [facility] Comment:Routine exam LMP [facility] [...] has been evaluated with computer assisted technology. Tank Hoop Bender [facility] Comment: BKA, CT(ASCP) Test Performed at: [facility] [address] LAURENCE JO MD ENTIRE ENDOCERVIX / Unknown 10/21/2014 1:52 PM BOX SEALING INSPECTOR 10/22/2014 10:09 AM BOX SEALING INSPECTOR Bienvenido Mcnair Jr., MD LAB - PATHOLOGY/CYTOL OGY ORDERABLES Final Result [address] [place] [address] [address] * MAMM SCREENING DIGITAL IMAGE BILAT G0202 (09/22/2013 8:09 AM BOX SEALING INSPECTOR) Anatomical Region Laterality Modality Breast Bilateral Mammography 09/22/2013 11:5 3 AM BOX SEALING INSPECTOR Impressions 09/22/2013 11:56 AM BOX SEALING INSPECTOR No malignant abnormality identified. No significant change. BI-RADS category 1. Negative. RECOMMENDATIONS: Routine mammograms in one year. Narrative 09/22/2013 11:56 AM BOX SEALING INSPECTOR Screening mammogram: HISTORY: Screening mammogram. Two views [...] * (ABNORMAL) HEMOGLOBIN A1C (08/22/2013 8:00 AM BOX SEALING INSPECTOR) Hemoglobin A1c 12.6(H) <5.7 % of total [...] of diabetes for children. Test Performed at: [facility] [address] [place] [address] PAPO BENNETT DO,MPH Whole blood specimen (specimen) BLOOD SPECIMEN / Unknown 08/22/2013 4:53 AM BOX SEALING INSPECTOR us Salma Hunt RAISER HELPER-TENNIS DIRECTOR LAB - CHEMISTRY ORDERA BLES Final Result [facility] [address] [place] [address] * (ABNORMAL) COMPREHENSIVE METABOLIC PANEL (08/22/2013 8:00 AM BOX SEALING INSPECTOR) Glucose 312(H) 65 - 99 mg/dL [facility] [...] 29 U/L [facility] Comment: Test Performed at: [facility] [address] [place] [address] PAPO BENNETT DO,MPH Blood specimen (specimen) BLOOD SPECIMEN / Unknown 08/22/2013 4:53 AM BOX SEALING INSPECTOR Salma Llanos Marilee RAISER HELPER-TENNIS DIRECTOR LAB - CHEMISTRY ORDERA BLES Final Result Performing Organization Address [facility] de Phone Number [facility] [address] [place] [address] * (ABNORMAL) MICROALB/CREAT RATIO URINE RANDOM PANEL (08/21/2013 9:29 AM BOX SEALING INSPECTOR) Creatinine Urine 129 20 - 320 mg/dL [...] within a diagnostic category. Test Performed at: [facility] [address] [place] [address] PAPO BENNETT DO,MPH Urine specimen (specimen) URINE SPECIMEN OBTAINED BY CLEAN CATCH PROCEDURE / Unknown 08/21/2013 9:29 AM BOX SEALING INSPECTOR 08/22/2013 4:16 AM BOX SEALING INSPECTOR Salma Llanos Marilee RAISER HELPER-TENNIS DIRECTOR LAB - URINE CHEMISTRY ORDERABLES Final Result Performing Organization Address [facility] de Phone Number [facility] [address] [place] [address] from Last 3 Months or Most Recently Relevant to Health Maintenance Insurance ANTHEM ANTHEM Advance Directives * FULL RESUSCITATION (Latest Code Status on File) Date Activated Date Inactivated Comments 05/06/2011 1:35 AM 05/08/2011 5:46 AM Care Teams Tool Design Drafter Relationship Specialty Start Date End Date Jamaal Ibarra DO [address] [place] [phone] PCP - General 06/01/21 Lebron Pugh DO [address] [place] [id number] Oncology 06/23/07
--- OUTSIDE RECORDS SUMMARY | 2025-01-20 15:14 | XMS_ITS | Clinical Summary ---
Author Organization [facility] Address [address] [place] [address] Care Team Providers Care Tubing Supervisor Name Role Phone Jamaal Ibarra DO Primary Care Provider [phone]- [phone] Allergies Active Allergy Reactions Criticality Noted Date [...] 09/06/2021 Assessment & Plan (09/06/2021 9:49 AM DOCK HAND): -Fatigue is most likely multifactorial as she [...] 09/16/2017 Assessment & Plan (09/06/2021 9:45 AM DOCK HAND): -Taking weekly Vitamin D -Will repeat Vitamin D level Type 1 diabetes mellitus with hyperglycemia 03/2017 Nocturia 06/12/2017 Gastroesophageal reflux disease 10/27/2014 Seronegative rheumatoid arthritis 10/27/2014 Swelling of hand 10/27/2014 Fibroid 10/21/2014 Fibromyalgia 06/09/2014 Hypertension 04/27/2014 Assessment & Plan (09/06/2021 9:45 AM DOCK HAND): -BP today is 121/81 -Will continue same antihypertensive medications at this time. Hyperlipidemia 04/27/2014 Assessment & Plan (09/06/2021 9:45 AM DOCK HAND): -Will continue statin as it is being [...] 01/22/2023 Assessment & Plan (09/06/2021 9:45 AM DOCK HAND): -Currently taking MDI -A1C on 09/06/21 was [...] 06/12/201701/05 Assessment & Plan (09/06/2021 9:07 AM DOCK HAND): -States she has been off of LT4 for 2 years -Will repeat TFT. Encounters Date Type Department Care Team Description 10/23/2024 12:00 PM DOCK HAND Office Visit [facility] Ophthalmology 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 10/23/2024 9:00 AM DOCK HAND Office Visit [facility] Endocrinology Metabolism and Lipid [address]th [place] [address] [place] [address] Evelin Monzon, PUNCH CARD OPERATOR Type 1 diabetes mellitus with hyperglycemia (HCC) [...] on file Legal Sex Female 12:16 AM DOCK HAND Gender Identity Not on file Sexual Orientation Not on file Obstetrics History Para Term AB IAB SAB Ectopic Multiple Livin g Live Births 4 0 0 Date Outcome GA Total Labor Labor/2nd/3rd Weight Sex Type Anes PTL Rafia A1 A5 Name Clin Last Filed Vital Signs Vital Sign Reading Time Taken Comments Blood Pressure 138/81 10/23/2024 8:12 AM DOCK HAND Pulse 78 10/23/2024 8:12 AM DOCK HAND Temperature 36.7 C (98.1 F) 10/23/2024 8:12 AM DOCK HAND Respiratory Rate 18 04/04/2024 4:54 PM CDT Oxygen Saturation 95% 04/04/2024 4:54 PM CDT Inhaled Oxygen Concentration - - Weight 128.7 kg (283 lb 12.8 oz) 10/23/2024 8:12 AM DOCK HAND Height 172.7 cm (5' 8 ) 10/23/2024 8:12 AM DOCK HAND Body Mass Index 43.15 10/23/2024 8:12 AM DOCK HAND Plan of Treatment Health Maintenance Due Date [...] - LEFT EYE Routine 10/23/2024 4:31 PM DOCK HAND 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 (HCC) OCT, RETINA - OU - BOTH EYES Routine 10/23/2024 12:46 PM DOCK HAND Vitreous hemorrhage of left eye (HCC) POCT HEMOGLOBIN A1C Routine 10/23/2024 8 :29 AM DOCK HAND Type 1 diabetes mellitus with hyperglycemia (HCC) POCT GLUCOSE [id number] Routine 10/23/2024 8: 20 AM DOCK HAND Type 1 diabetes mellitus with hyperglycemia (HCC) [...] OS - Left Eye (10/23/2024 4:31 PM DOCK HAND) Anatomical Region Laterality Modality Head Other Narrative 10/23/2024 4:31 PM DOCK HAND Time Out Informed consent was obtained after [...] mg/0.05 mL Route: intravitreal, Site: Left Eye [facility]: 79103-599-84, Lot: [id number], Expiration date: 06/06/2025, Waste: 0 mL The [...] AC tap 0.1 mL Steven Edmonds MD [facility] PROCEDURES Fi nal Result * OCT, Retina - OU - Both Eyes (10/23/2024 12:46 PM DOCK HAND) Anatomical Region Laterality Modality Head Optical Coherenc e Tomography Narrative 10/23/2024 12:46 PM DOCK HAND Right Eye Scan locations included subfoveal. Left Eye Quality was good. Scan locations included subfoveal. Notes OD: no signal OS: no CME; partial VMA; no VH; no central DME Steven Edmonds MD OPHTH TOMOGRAPHY Final Res ult * POCT hemoglobin A1c (10/23/2024 8:29 AM DOCK HAND) Hemoglobin A1C, POC 9.1 4.0 - 5.6 % Blood 10/23/2024 8:29 AM DOCK HAND us Evelin Monzon NP POINT OF CARE TEST ORDERA BLES Final Result * POCT glucose (10/23/2024 8:20 AM DOCK HAND) Glucose Blood, POC 250 mg/dL Blood 10/23/2024 8:20 AM DOCK HAND us Evelin Monzon NP POINT OF CARE TEST ORDERA BLES Final Result * (ABNORMAL) eGFR (04/04/2024 5:59 PM CDT) Pathologist [facility] eGFR 22(L) >=60 mL/min/1. 73 m2 [...] BLOOD ORDERABLES Final Result Performing Organization Address [facility] Co de Phone Number [facility] Department [place] [address] * Albumin Creatinine Ratio, Urine (01/24/2024) Urine us Sarah Haskins MD LAB URINE ORDERABLES Final Resu lt Performing Organization Address City/[facility]/ZIP Co de Phone Number EXTERNAL LAB * TSH (01/24/2024) Blood Sarah Haskins MD LAB BLOOD ORDERABLES Final Resu lt Performing Organization Address [facility] Co de Phone Number EXTERNAL LAB * Lipid panel (01/24/2024) Blood us Sarah Haskins MD LAB BLOOD ORDERABLES Final Resu lt Performing Organization Address [facility] Co de Phone Number EXTERNAL LAB [...] nipple by physician COMPARISON: Outside exams from [place] 09/13/2022to 07/08/2019 TECHNIQUE: Full field digital mammographic [...] - 07/12/2021 5:08 PM CDT Performed at: [facility] [id number] Gospel Singer: Link Myles PhD, Phone: [phone] us Lorrie Saavedra MD LAB MICROBIOLOGY - GENERAL ORD ERABLES Final Result [facility] from Last 3 Months or Most Recently Relevant to Health Maintenance Insurance [employer] BL CHOICE PRF [place] GENERIC COPAY ASSIST CHO[place]F [place] Care Teams Tubing Supervisor Relationship Specialty Start Date End Date Jamaal Ibarra DO PCP - General 10/22/17
--- OUTSIDE RECORDS SUMMARY | 2025-01-20 15:14 | XMS_ITS | Encounter Summary ---
Author Organization [facility] Healthcare Address [address] [place] [address] Care Team Providers Care Crane Hoist Or Lift Operator Name Role Phone Jamaal Ibarra DO Primary Care Provider +1- [phone] Reason for Visit * Diagnostic Imaging (Routine) - Closed Specialty Diagnoses / Procedures Referred By Liz borrero Referred To Contact Procedures Breast Imaging Diagnostic Outside Reference Saul Ortiz NP Phone: tel: fax: Referral ID Status Reason Start Date Expiration Date Visits Re quested Visits Authorized [id number] Closed 10/16/2022 11/15/2023 1 1 Encounter Details Date Type Department Care Team (Late st Contact Info) Description 04/29/2020 12:05 AM CDT Hospital Encounter [facility] [address] [place] [address] Social History Tobacco Use Types Packs/Day Years [...] on file Legal Sex Female 12:16 AM GROUND WATER TECHNICIAN Gender Identity Not on file Sexual [...] CDT) Impressions [facility] - 10/16/2022 11:47 AM GROUND WATER TECHNICIAN These images are for Reference purposes only and have not been reviewed by [facility] Radiology. There will be no report generated by a [facility] Radiologist. Narrative [facility] - 10/16/2022 11:47 AM GROUND WATER TECHNICIAN EXAMINATION: Images For Reference Purposes Only us Saul Ortiz NP IMG MAMMO PROCEDURES Final Result [facility] documented in this encounter Visit Diagnoses Not on filedocumented in this encounter Care Teams Crane Hoist Or Lift Operator Relationship Specialty Start Date End Date Jamaal Ibarra DO PCP - General 10/22/17 documented as of this encounter
--- OUTSIDE RECORDS SUMMARY | 2025-01-20 15:14 | XMS_ITS | Encounter Summary ---
Author Organization [facility] Address [address] [place] [address] Phone Care Team Providers Care Development Intern Name Role Phone Jamaal Ibarra DO Primary Care Provider [phone]- [phone] Encounter Details Date Type Department Care Team (Late st Contact Info) Description 10/18/[address] [place] [address] [place] [address] Era Taylor CMA Social History Tobacco Use Types Packs/Day Years Used Date Smoking Tobacco: Never Smokeless Tobacco: Never Comments Unknown Sex and Gender Information Value Date Recorded Sex Assigned at Not on file Legal Sex Female 12:16 AM TICKET CLERK Gender Identity Not on file Sexual Orientation Not on file documented as of this encounter Plan of Treatment Not on file documented as of this encounter Visit Diagnoses Not on filedocumented in this encounter Care Teams Development Intern Relationship Specialty Start Date End Date Jamaal Ibarra DO PCP - General 10/22/17 documented as of this encounter
--- OUTSIDE RECORDS SUMMARY | 2025-01-20 15:14 | XMS_ITS | Encounter Summary ---
Author Organization [facility] Healthcare Address [address] [place] [address] Care Team Providers Care Health Insurance Specialist Name Role Phone Jamaal Ibarra DO Primary Care Provider +1- [phone] Reason for Visit * Diagnostic Imaging (Routine) - Closed Specialty Diagnoses / Procedures Referred By Liz borrero Referred To Contact Procedures Breast Imaging Screening Outside Reference Saul Ortiz NP Phone: tel: fax: Referral ID Status Reason Start Date Expiration Date Visits Re quested Visits Authorized [id number] Closed 10/16/2022 11/15/2023 1 1 Encounter Details Date Type Department Care Team (Late st Contact Info) Description 07/08/2019 Hospital Encounter [facility] Radiology [facility] [place], [place] [id number] Social History Tobacco Use Types Packs/Day Years [...] on file Legal Sex Female 12:16 AM OPERATIONS FORESTER Gender Identity Not on file Sexual Orientation [...] CDT) Impressions [facility] - 10/16/2022 11:48 AM OPERATIONS FORESTER These images are for Reference purposes only and have not been reviewed by [facility] Radiology. There will be no report generated by a [facility] Radiologist. Narrative [facility] - 10/16/2022 11:48 AM OPERATIONS FORESTER EXAMINATION: Images For Reference Purposes Only us Saul Ortiz NP IMG MAMMO PROCEDURES Final Result [facility] documented in this encounter Visit Diagnoses Not on filedocumented in this encounter Care Teams Health Insurance Specialist Relationship Specialty Start Date End Date Jamaal Ibarra DO PCP - General 10/22/17 documented as of this encounter
--- OUTSIDE RECORDS SUMMARY | 2025-01-20 15:14 | XMS_ITS | Encounter Summary ---
Author Organization [facility] Healthcare Address [address] [place] [address] Care Team Providers Care Wire Brusher Name Role Phone Jamaal Ibarra DO Primary Care Provider +1- [phone] Reason for Visit * Diagnostic Imaging (Routine) - Closed Specialty Diagnoses / Procedures Referred By Liz borrero Referred To Contact Procedures Breast Imaging US Outside Reference Saul Ortiz NP Phone: tel: fax: Referral ID Status Reason Start Date Expiration Date Visits Re quested Visits Authorized [id number] Closed 10/16/2022 11/15/2023 1 1 Encounter Details Date Type Department Care Team (Late st Contact Info) Description 07/15/2019 Hospital Encounter [facility] Radiology [facility] [place], [place] [id number] Social History Tobacco Use Types Packs/Day Years [...] on file Legal Sex Female 12:16 AM REGISTERED DENTAL ASSISTANT Gender Identity Not on file Sexual Orientation [...] CDT) Impressions [facility] - 10/16/2022 11:47 AM REGISTERED DENTAL ASSISTANT These images are for Reference purposes only and have not been reviewed by [facility] Radiology. There will be no report generated by a [facility] Radiologist. Narrative [facility] - 10/16/2022 11:47 AM REGISTERED DENTAL ASSISTANT EXAMINATION: Images For Reference Purposes Only us Saul Ortiz NP IMG MAMMO PROCEDURES Final Result [facility] documented in this encounter Visit Diagnoses Not on filedocumented in this encounter Care Teams Wire Brusher Relationship Specialty Start Date End Date Jamaal Ibarra DO PCP - General 10/22/17 documented as of this encounter
--- OUTSIDE RECORDS SUMMARY | 2025-01-20 15:14 | XMS_ITS | Encounter Summary ---
Author Organization [facility] Address [address] [place] [address] Phone Care Team Providers Care Inside Sales Professional Name Role Phone Jamaal Ibarra DO Primary Care Provider +1- [phone] Encounter Details Date Type Department Care Team (Latest Contact Info) Description 10/14/2019 Orders Only [facility] EML Scanning, Provider Social History Tobacco Use Types Packs/Day Years Used Date Smoking Tobacco: Never Comments Unknown Sex and Gender Information Value Date Recorded Sex Assigned at Not on file Legal Sex Female 12:16 AM SHIP PROPELLER FINISHER Gender Identity Not on file Sexual Orientation [...] on filedocumented in this encounter Care Teams Inside Sales Professional Relationship Specialty Start Date End Date Jamaal Ibarra DO PCP - General 10/22/17 documented as of this encounter
--- OUTSIDE RECORDS SUMMARY | 2025-01-20 15:14 | XMS_ITS | Referral Summary ---
Author Organization [facility] Address [address] [place] [address] Care Team Providers Care Wind Energy Engineer Name Role Phone Jamaal Ibarra DO Primary Care Provider [phone]- [phone] Encounters Date Type Department Care Team Description 10/23/2024 9:00 AM ARCHITECTURE PROFESSOR Office Visit [facility] Endocrinology Metabolism and Lipid [address] [facility] 13th [place] [address] [place] [address] Evelin Monzon NP Type 1 diabetes mellitus with hyperglycemia (HCC) (Primary Dx); Mixed hyperlipidemia; Diabetes mellitus with nephropathy (HCC) 10/23/2024 12:00 PM ARCHITECTURE PROFESSOR Office Visit [facility] Ophthalmology [address] [facility] 2nd [address], [address] [place] [address] Steven Edmonds MD Proliferative diabetic [...] 09/06/2021 Assessment & Plan (09/06/2021 9:49 AM ARCHITECTURE PROFESSOR): -Fatigue is most likely multifactorial as she [...] 09/16/2017 Assessment & Plan (09/06/2021 9:45 AM ARCHITECTURE PROFESSOR): -Taking weekly Vitamin D -Will repeat Vitamin D level Type 1 diabetes mellitus with hyperglycemia 03/2017 Nocturia 06/12/2017 Gastroesophageal reflux disease 10/27/2014 Seronegative rheumatoid arthritis 10/27/2014 Swelling of hand 10/27/2014 Fibroid 10/21/2014 Fibromyalgia 06/09/2014 Hypertension 04/27/2014 Assessment & Plan (09/06/2021 9:45 AM ARCHITECTURE PROFESSOR): -BP today is 121/81 -Will continue same antihypertensive medications at this time. Hyperlipidemia 04/27/2014 Assessment & Plan (09/06/2021 9:45 AM ARCHITECTURE PROFESSOR): -Will continue statin as it is being [...] 01/22/2023 Assessment & Plan (09/06/2021 9:45 AM ARCHITECTURE PROFESSOR): -Currently taking MDI -A1C on 09/06/21 was [...] 06/12/201701/05 Assessment & Plan (09/06/2021 9:07 AM ARCHITECTURE PROFESSOR): -States she has been off of LT4 [...] on file Legal Sex Female 12:16 AM ARCHITECTURE PROFESSOR Gender Identity Not on file Sexual Orientation Not on file Last Filed Vital Signs Vital Sign Reading Time Taken Comments Blood Pressure 138/81 10/23/2024 8:12 AM ARCHITECTURE PROFESSOR Pulse 78 10/23/2024 8:12 AM ARCHITECTURE PROFESSOR Temperature 36.7 C (98.1 F) 10/23/2024 8:12 AM ARCHITECTURE PROFESSOR Respiratory Rate 18 04/04/2024 4:54 PM CDT Oxygen Saturation 95% 04/04/2024 4:54 PM CDT Inhaled Oxygen Concentration - - Weight 128.7 kg (283 lb 12.8 oz) 10/23/2024 8:12 AM ARCHITECTURE PROFESSOR Height 172.7 cm (5' 8 ) 10/23/2024 8:12 AM ARCHITECTURE PROFESSOR Body Mass Index 43.15 10/23/2024 8:12 AM ARCHITECTURE PROFESSOR Plan of Treatment Not on file Procedures Procedure Name Priority Date/Time Associated Diagnosis Comments INTRAVITREAL INJECTION, PHARMACOLOGIC AGENT - OS - LEFT EYE Routine 10/23/2024 4:31 PM ARCHITECTURE PROFESSOR 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 (HCC) OCT, RETINA - OU - BOTH EYES Routine 10/23/2024 12:46 PM ARCHITECTURE PROFESSOR Vitreous hemorrhage of left eye (HCC) POCT HEMOGLOBIN A1C Routine 10/23/2024 8 :29 AM ARCHITECTURE PROFESSOR Type 1 diabetes mellitus with hyperglycemia (HCC) POCT GLUCOSE 83630 Routine 10/23/2024 8: 20 AM ARCHITECTURE PROFESSOR Type 1 diabetes mellitus with hyperglycemia (HCC) [...] OS - Left Eye (10/23/2024 4:31 PM ARCHITECTURE PROFESSOR) Anatomical Region Laterality Modality Head Other Narrative 10/23/2024 4:31 PM ARCHITECTURE PROFESSOR Time Out Informed consent was obtained after [...] mg/0.05 mL Route: intravitreal, Site: Left Eye [facility]: 87613-947-17, Lot: [id number], Expiration date: 06/06/2025, Waste: 0 mL The [...] OU - Both Eyes (10/23/2024 12:46 PM ARCHITECTURE PROFESSOR) Anatomical Region Laterality Modality Head Optical Coherenc e Tomography Narrative 10/23/2024 12:46 PM ARCHITECTURE PROFESSOR Right Eye Scan locations included subfoveal. Left Eye Quality was good. Scan locations included subfoveal. Notes OD: no signal OS: no CME; partial VMA; no VH; no central DME Steven Edmonds MD OPHTH TOMOGRAPHY Final Res ult * POCT hemoglobin A1c (10/23/2024 8:29 AM ARCHITECTURE PROFESSOR) Hemoglobin A1C, POC 9.1 4.0 - 5.6 % Blood 10/23/2024 8:29 AM ARCHITECTURE PROFESSOR Evelin Monzon INDUSTRIAL CHEMISTRY TEACHER POINT OF CARE TEST ORDERA BLES Final Result * POCT glucose (10/23/2024 8:20 AM ARCHITECTURE PROFESSOR) Glucose Blood, POC 250 mg/dL Blood 10/23/2024 8:20 AM ARCHITECTURE PROFESSOR Evelin Monzon NP POINT OF CARE TEST [...] BLOOD ORDERABLES Final Result Performing Organization Address City/[facility]/ZIP Co de Phone Number [facility] [place] [address] * Albumin Creatinine Ratio, Urine (01/24/2024) Urine us Sarah Haskins MD LAB URINE ORDERABLES Final Resu lt EXTERNAL LAB * TSH (01/24/2024) Blood Sarah Haskins MD LAB BLOOD ORDERABLES Final Resu lt EXTERNAL LAB * Lipid panel (01/24/2024) Blood Sarah Haskins MD LAB BLOOD ORDERABLES Final Resu lt Performing Organization Address [facility]/ZIP Co de Phone Number EXTERNAL LAB * [...] nipple by physician COMPARISON: Outside exams from [place] 09/13/2022to 07/08/2019 TECHNIQUE: Full field digital mammographic [...] - 07/12/2021 5:08 PM CDT Performed at: [facility] [id number] Health And Safety Specialist: Link Myles PhD, Phone: [phone] us Lorrie Saavedra MD LAB MICROBIOLOGY - GENERAL ORD ERABLES Final Result [facility] from Last 3 Months or Most Recently Relevant to Health Maintenance Insurance [place] COP[place] ASSIST [place] [employer] [place] [address] Care Teams Wind Energy Engineer Relationship Specialty Start Date End Date Jamaal Ibarra DO PCP - General 10/22/17
--- OUTSIDE RECORDS SUMMARY | 2025-01-20 15:14 | XMS_ITS | Encounter Summary ---
Author Organization [employer] [facility] Address [address] [place] [address] Care Team Providers Care Aerospace Manager Name Role Phone Jamaal Ibarra DO Primary Care Provider Encounter Details Date Type Department Care Team (Latest Contact Info) Description 03/23/2002 Outpatient Historical [facility] [place] [address] [place] [address] MENSTRUAL DISORDER NEC (Primary Dx) Social History Tobacco Use Types Packs/Day Years Used Date Smoking Tobacco: Never Assessed Comments Unknown Sex and Gender Information Value Date Recorded Sex Assigned at Not on file Legal Sex Female 3:50 AM DIRECTOR OF OPERATIONS SUPPORT Gender Identity Not on file Sexual Orientation Not on file documented as of this encounter Plan of Treatment Not on file documented as of this encounter Visit Diagnoses Diagnosis Other disorder of menstruation and other abnormal bleeding from female genital tract- Primary documented in this encounter Care Teams Aerospace Manager Relationship Specialty Start Date End Date Jamaal Ibarra DO [address] [address] PCP - General Internal Medicine 07/11/18 documented as of this encounter
--- OUTSIDE RECORDS SUMMARY | 2025-01-20 15:14 | XMS_ITS | Clinical Summary ---
Author Organization [facility] Address [address] [place] [address] Care Team Providers Care Sanitation Lead Name Role Phone Jamaal Ibarra DO Primary Care Provider Allergies Active Allergy Reactions Criticality Noted Date Comments Benazepril Cough Low 05/05/2008 Latex Itching Low 08/07/2018 Lisinopril Cough Low 03/28/2021 Metoclopramide Hives High 03/28/2021 Metronidazole Swelling Low 10/17/2009 Medications levothyroxine 50 mcg tablet Take 50 mcg by mouth daily elevator serviceman. Active losartan-hydroC HLOROthiazide (HYZAAR) 50-12.5 mg tablet [...] on file Legal Sex Female 3:50 AM CORE CUTTER AND REAMER Gender Identity Not on file Sexual Orientation Not on file Last Filed Vital Signs Vital Sign Reading Time Taken Comments Blood Pressure 132/83 03/28/2021 9:10 AM CDT Pulse 82 03/28/2021 9:10 AM CDT Temperature 36.9 C (98.5 F) 03/28/2021 9:10 AM CDT Respiratory Rate 20 03/28/2021 9:10 AM CDT Oxygen Saturation 97% 10/27/2018 1:22 PM CORE CUTTER AND REAMER Inhaled Oxygen Concentration - - Weight 114.3 [...] RETINAL EXAM 06/19/2025 06/19/2024, 06/01/[address] [place] [address] [employer] BLUE PREFERRED Care Teams Sanitation Lead Relationship Specialty Start Date End Date Jamaal Ibarra DO [address] [facility] [address] [place] [address] PCP - General Internal Medicine 07/11/18
--- OUTSIDE RECORDS SUMMARY | 2025-01-20 15:14 | XMS_ITS | Clinical Summary ---
Author Organization [facility] Address [address] [place] [address] Care Team Providers Care Test Tube Maker Name Role Phone Jamaal Ibarra DO Primary Care Provider [phone]- [phone] Social History Tobacco Use Types Packs/Day Years Used Date Smoking Tobacco: Never Assessed Comments Unknown Sex and Gender Information Value Date Recorded Sex Assigned at Not on file Legal Sex Female 10:23 PM PORTFOLIO MANAGER Gender Identity Not on file Sexual [...] patient's age to complete this [place] [address] [facility] Care Teams Test Tube Maker Relationship Specialty Start Date End Date Jamaal Ibarra DO [address] [facility] [address] [place] [address] PCP - General INTERNAL MEDICINE 07/02/23
[2025-01-20] MEDS: LACTATED RINGERS 1,000 ML 100 ML IV CONT (15:16)
[2025-01-20] MEDS: FLUCONAZOLE 100 MG TABLET PO (15:17)
[2025-01-20 16:18] LABS: Glucose Point of Care 155 mg/dl (65-105)
--- NOTE | 2025-01-20 16:35 | ADMGEN ---
This patient, Jennifer Londono, was admitted to [facility] Surg Room 310-01. Patient/family oriented to hospital policies and general routines including ID bracelet, bed and alarms, visiting hours, pain management, procedures, bathroom and other care routines, personal items, smoking policy, room service/diet, and visiting hours. Information on how to activate the Rapid Response Team has been discussed. Patient/Family are encouraged to report perceived risks to care and to ask questions if they do not understand what they are told or what they should do.
[2025-01-20 17:41] LABS: Hemoglobin A1C 8.5 % (<5.7)
[2025-01-20 20:49] LABS: Glucose Point of Care 219 mg/dl (65-105)
[2025-01-20] MEDS: ALPRAZolam (*CRX) 0.5 MG TABLET PO (21:35)
[2025-01-20] MEDS: ATORVASTATIN 10 MG TABLET 20 MG PO (21:35)
[2025-01-20] MEDS: TOPIRAMATE 25 MG TABLET 50 MG PO (21:35)
[2025-01-20] MEDS: traZODone HCL 50 MG TABLET PO (21:35)
[2025-01-20] MEDS: AMITRIPTYLINE HCL 25 MG TABLET 50 MG PO (21:36)
[2025-01-20] MEDS: ZOLPIDEM TARTRATE (*CRX) 5 MG TABLET 10 MG PO (21:37)
[2025-01-20] MEDS: PRAZOSIN HCL 1 MG CAPSULE 2 MG PO (21:37)
[2025-01-20] MEDS: ACYCLOVIR 400 MG TABLET PO (21:39)
[2025-01-20] MEDS: INSULIN GLARGINE (*BKC) 100 UNITS/ML 38 UNITS SUB-Q (21:42)
[2025-01-20] MEDS: INSULIN ASPART (*BKC) 100 UNITS/ML SUB-Q (21:42)
[2025-01-21] MEDS: LACTATED RINGERS 1,000 ML 100 ML IV CONT (05:43)
[2025-01-21 05:51] VITALS: BP 155/71; PULSE 95; RESP 12; TEMP 36.8; O2SAT 100
[2025-01-21 06:04] LABS: Basophils Percent Auto 0.4 % (0.2-1.2); Eosinophils Absolute Auto 0.2 K/mm3 (0-0.3); Eosinophils Percent Auto 1.6 % (0-4.4); Hematocrit 36.3 % (37.0-47.0); Hemoglobin 11.2 g/dL (12.0-15.0); Immature Granulocyte Absolute 0.04 K/mm3 (0.00-0.031); Immature Granulocyte Percent A 0.4 % (0-0.5); Lymphocytes Absolute Auto 1.62 K/mm3 (0.9-3.2); Lymphocytes Percent Auto 16.2 % (18.3-44.2); Mean Corpuscular HGB Conc 30.9 g/dl (32-36); Mean Corpuscular Hemoglobin 28.6 pg (26-34); Mean Corpuscular Volume 92.6 fl (80-100); Mean Platelet Volume 10.2 fl (7.4-10.4); Monocytes Absolute Auto 0.5 K/mm3 (0.1-0.6); Monocytes Percent Auto 4.8 % (2.6-8.5); Neutrophils Absolute Auto 7.7 K/mm3 (1.3-6.7); Neutrophils Percent Auto 76.6 % (45.5-73.1); Platelet Count Result 207 k/mm3 (150-375); Red Blood Count 3.92 M/mm3 (4.2-5.4); Red Cell Distribution Width 13.5 % (11.5-14.5)
[2025-01-21 06:24] LABS: Anion Gap 10 mmol/L (4-12); Blood Urea Nitrogen 32 mg/dL (7-17); Calcium 9.5 mg/dL (8.4-10.2); Carbon Dioxide 17 mmol/L (22-30); Chloride 111 mmol/L (98-107); Estimated CRCL calculation 36 ml/min; Estimated Glomerular Filt Rate 21; Glucose 200 mg/dL (65-110); Potassium 4.2 mmol/L (3.4-5.0); Sodium 138 mmol/L (137-145)
[2025-01-21 08:15] LABS: Glucose Point of Care 176 mg/dl (65-105)
--- NOTE | 2025-01-21 08:29 | P.PNIM_ITS ---
Progress Note: A&P Assessment and Plan (1) Acute on chronic renal failure: Code(s): N17.9 - Acute kidney failure, unspecified; N18.9 - Chronic kidney disease, unspecified Status: Acute Assessment and Plan: Some improvement this morning Nephrology consulted pending recommendations Continue IVF (2) Dehydration: Code(s): E86.0 - Dehydration Status: Acute Assessment and Plan: Secondary to decreased oral intake and diarrhea Gentle IV hydration (3) Diarrhea: Code(s): R19.7 - Diarrhea, unspecified Status: Acute Assessment and Plan: With fecal stasis and diarrhea Avoid anti diarrheal medications Encourage oral intake on top of IVF (4) Irritable bowel syndrome with constipation: Code(s): K58.1 - Irritable bowel syndrome with constipation Status: Acute Assessment and Plan: stool softeners, fiber gummies, and lubiprostone which will be continued (5) Insulin dependent diabetes mellitus: Status: Acute Assessment and Plan: Diabetic diet Accu-Cheks a.c. HS Lantus and actos reordered SSI (6) Hypertension: Code(s): I10 - Essential (primary) hypertension Status: Acute Assessment and Plan: Can restart antihypertensives and diuretics tomorrow Plan Apnea link ordered to screen for obstructive sleep apnea given prolonged fatigue. Time Spent With Patient Time with patient: Greater than 35 minutes Subjective Date/time seen: 01/21/25 08:29 Interval history: 49-year-old female with history of irritable bowel syndrome with constipation, cyclic vomiting syndrome, insulin-dependent diabetes, hypertension, hyperlipidemia, and anxiety presented to the emergency department with complaints of abdominal pain and diarrhea. Patient complaining of severe abdominal cramping and diarrhea, CT showing large amount of stool in the right colon where her pain is. Ligia added Review of Systems Review of Systems: 12 systems were reviewed and are negativ e except for as per HPI. Exam Narrative: General: well appearing, appears stated age. HEENT: normocephalic, atraumatic. Mucous membranes moist. EOMI, PERRLA, bilateral sclera anicteric, no conjunctival injection. Neck supple without JVD, lymphadenopathy, or bruit. Respiratory: clear to ascultation bilaterally. No rales/rhonic/wheezes. Cardiovascular: Regular rate and rhythm, normal S1-S2 upon ascultation. No murmurs, rubs, or clicks. PMI is nondisplaced, capillary refill less than 3 second. Abdomen: Soft, round, no pulsatile masses, nondistended and nontender. No rebound, no guarding. No CVA tenderness, no hepatosplenomegaly. Bowel sounds present to all four quadrants. No high pitch or tinkling sounds, resonant to percussion. Extremities: No cyanosis, clubbing, or edema present. Pulses are palpable 2/2. Active ROM to all four extremities. Neuro: Alert and orientated x 4. PERRLA. Cranial nerves 2-12 intact without focal deficit. Skin: Warm, dry, and intact, without rash, erythema, or lesion. Psych: pleasant, cooperative, normal speech, normal affect, no hallucinations, no dysarthia Objective Data Vital Signs Vital Signs: Vital Signs - 24 hr 01/20/25 08:31 01/20/25 08:32 01/20/25 08:33 Temperature 98.1 F Pulse Rate 80 Respiratory Rate 20 Blood Pressure 149/72 H Pulse Oximetry 98 98 97 Oxygen Delivery Fraction of Inspired Oxygen 01/20/25 09:15 01/20/25 10:09 01/20/25 10:16 Temperature Pulse Rate 65 98 68 Respiratory Rate 16 16 Blood Pressure 146/72 H 144/66 H 149/74 H Pulse Oximetry 97 97 Oxygen Delivery Fraction of Inspired Oxygen 01/20/25 11:16 01/20/25 11:39 01/20/25 11:41 Temperature Pulse Rate 65 66 67 Respiratory Rate 16 16 16 Blood Pressure 148/72 H 127/64 146/85 H Pulse Oximetry 97 99 98 Oxygen Delivery Fraction of Inspired Oxygen 01/20/25 11:46 01/20/25 12:10 01/20/25 12:15 Temperature Pulse Rate 65 66 64 Respiratory Rate 16 14 16 Blood Pressure 139/70 128/65 125/70 Pulse Oximetry 97 99 99 Oxygen Delivery Fraction of Inspired Oxygen 01/20/25 12:30 01/20/25 13:05 01/20/25 13:16 Temperature Pulse Rate 62 63 59 L Respiratory Rate 10 L 12 16 Blood Pressure 130/67 132/66 150/74 H Pulse Oximetry 98 100 98 Oxygen Delivery Fraction of Inspired Oxygen 01/20/25 14:01 01/20/25 14:16 01/20/25 14:31 Temperature Pulse Rate 64 71 66 Respiratory Rate 13 17 19 Blood Pressure 122/70 130/73 103/77 Pulse Oximetry 98 97 97 Oxygen Delivery Fraction of Inspired Oxygen 01/20/25 14:45 01/20/25 15:00 01/20/25 15:39 Temperature Pulse Rate 61 60 64 Respiratory Rate 13 16 18 Blood Pressure 132/74 111/87 Pulse Oximetry 96 98 98 Oxygen Delivery Fraction of Inspired Oxygen 01/20/25 16:31 01/20/25 16:57 01/20/25 20:00 Temperature 98.1 F Pulse Rate 62 Respiratory Rate 16 Blood Pressure 134/48 L Pulse Oximetry 98 Oxygen Delivery Room Air Room Air Fraction of Inspired Oxygen 01/20/25 21:18 01/20/25 23:51 01/21/25 05:51 Temperature 98.1 F 98.3 F Pulse Rate 64 95 Respiratory Rate 16 12 Blood Pressure 161/72 H 155/71 H Pulse Oximetry 97 98 100 Oxygen Delivery Room Air Fraction of Inspired Oxygen 21 Intake/Output Intake/Output: Intake & Output 01/18/25 01/19/25 01/20/25 01/21/25 23:59 23:59 23:59 23:59 Intake Total 1360 1300 Balance 1360 1300 Meds/Results Medications: Active Medications Generic Name Dose Route Start Last Admin Trade Name Freq PRN Reason Stop Dose Admin Acetaminophen 650 mg 01/20/25 13:52 Acetaminophen 325 Mg Tablet PO Q6H PRN Mild Pain (1-3) or Fever Acyclovir 400 mg 01/20/25 20:15 01/20/25 21:39 Acyclovir 400 Mg Tablet PO 400 mg BID [facility] Administration Alprazolam 0.5 mg 01/20/25 20:15 01/20/25 21:35 Alprazolam (*Crx) 0.5 Mg Tablet PO 0.5 mg TID SANTHOS[facility] Administration Amitriptyline HCl 50 mg 01/20/25 20:15 01/20/25 21:38 Amitriptyline Hcl 25 Mg Tablet PO Not Given HS [facility] Amlodipine Besylate 5 mg 01/21/25 09:00 Amlodipine Besylate 5 Mg Tablet BY MOUTH DAILY [facility] Atorvastatin Calcium 20 mg 01/20/25 20:15 01/20/25 21:38 Atorvastatin 10 Mg Tablet PO Not Given QHS [facility] Bumetanide 1 mg 01/22/25 09:00 Bumetanide 1 Mg Tablet PO BID [facility] Dextrose 12.5 gm 01/20/25 13:52 Dextrose 50% 25 Gm/50 Ml Syringe IV PUSH PRN PRN Hypoglycemia Protocol Docusate Sodium 100 mg 01/21/25 09:00 Docusate Sodium 100 Mg Capsule PO DAILY [facility] Enoxaparin Sodium 40 mg 01/21/25 09:00 Enoxaparin 40 Mg/0.4 Ml Syringe SUB-Q DAILY [facility] Fluconazole 100 mg 01/20/25 14:00 01/20/25 15:17 Fluconazole 100 Mg Tablet PO 01/22/25 09:01 100 mg DAILY [facility] Administration Glucagon 1 mg 01/20/25 13:52 Glucagon For Inj 1 Mg Vial IM PRN PRN Hypoglycemia Protocol Glucose 15 gm 01/20/25 13:52 Glucose Oral Gel 15 Gm Of Glucse In 37.5 Gm Tube PO PRN PRN Hypoglycemia Protocol Dextrose 1,000 mls @ 100 mls/hr 01/20/25 13:52 Dextrose 5% 1,000 Ml IVPB PRN PRN Hypoglycemia Protocol Insulin Aspart 3 - 6 units 01/20/25 17:00 01/20/25 18:06 Insulin Aspart (*Bkc) 100 Units/Ml SUB-Q Not Given TIDWM [facility] Protocol Insulin Aspart 1 - 3 units 01/20/25 21:00 01/20/25 21:42 Insulin Aspart (*Bkc) 100 Units/Ml SUB-Q 1 units HS [facility] Administration Protocol Insulin Glargine 38 units 01/20/25 21:00 01/20/25 21:42 Insulin Glargine (*Bkc) 100 Units/Ml SUB-Q 38 units Q12HR [facility] Administration Losartan Potassium 100 mg 01/21/25 09:00 Losartan Potassium 100 Mg Tablet PO DAILY [facility] Lubiprostone 24 mcg 01/20/25 20:05 01/20/25 21:56 Lubiprostone 24 Mcg Capsule BY MOUTH Not Given BID [facility] Metoprolol Succinate 50 mg 01/21/25 09:00 Metoprolol Succinate Ext Rel 50 Mg Tabcr BY MOUTH DAILY [facility] Ondansetron HCl 4 mg 01/20/25 12:30 Ondansetron Inj 4 Mg/2 Ml Vial IV PUSH Q4H PRN Nausea Pantoprazole Sodium 40 mg 01/20/25 20:04 Pantoprazole 40 Mg Tablet PO DAILY PRN Nausea Pioglitazone HCl 15 mg 01/21/25 09:00 Pioglitazone Hcl 15 Mg Tab PO DAILY [facility] Prazosin HCl 2 mg 01/20/25 21:00 01/20/25 21:37 Prazosin Hcl 1 Mg Capsule PO 2 mg HS [facility] Administration Sertraline HCl 100 mg 01/21/25 09:00 Sertraline Hcl 50 Mg Tablet PO DAILY [facility] Spironolactone 25 mg 01/22/25 09:00 Spironolactone 25 Mg Tablet PO DAILY [facility] Topiramate 50 mg 01/20/25 20:15 01/20/25 21:35 Topiramate 25 Mg Tablet PO 50 mg BID [facility] Administration Trazodone HCl 50 mg 01/20/25 21:00 01/20/25 21:35 Trazodone Hcl 50 Mg Tablet PO 50 mg HS [facility] Administration Vitamin D 5,000 units 01/21/25 09:00 Cholecalciferol 5,000 Units Tablet PO DAILY [facility] Zolpidem Tartrate 10 mg 01/20/25 20:04 01/20/25 21:37 Zolpidem Tartrate (*Crx) 5 Mg Tablet PO 10 mg HS PRN Administration Insomnia Radiology Results: ITS Impressions Abdomen/Pelvis CT 01/20/25 10:15 IMPRESSION: Hepatosplenomegaly. Otherwise, no acute findings within the abdomen or pelvis, as detailed above. Labs Labs: Laboratory Results - last 24 hr 01/20/25 01/20/25 01/20/25 08:40 09:33 12:08 WBC 11.2 H RBC 4.39 Hgb 12.6 Hct 40.9 MCV 93.2 MCH 28.7 MCHC 30.8 L RDW 13.5 Plt Count 239 MPV 10.1 Immature Gran % (Auto) 0.4 Neut % (Auto) 76.0 H Lymph % (Auto) 16.4 L [place] % (Auto) 4.8 Eos % (Auto) 2.0 Baso % (Auto) 0.4 Lymph # (Auto) 1.83 [place] # (Auto) 0.5 Eos # (Auto) 0.2 Baso # (Auto) 0.0 Abs Immat Gran (auto) 0.05 H Absolute Neuts (auto) 8.5 H Absolute Nucleated RBC 0.000 Nucleated RBC % 0.0 Sodium 140 Potassium 4.1 Chloride 109 H Carbon Dioxide 20 L Anion Gap 11 BUN 36 H Creatinine 2.94 H Estim Creat Clear Calc 29 Estimated GFR 17 L Glucose 157 H POC Capillary Glucose Hemoglobin A1c 8.5 H Calcium 9.8 Magnesium 2.1 Total Bilirubin 0.5 AST 18 ALT 17 Alkaline Phosphatase 118 Troponin I 0.021 0.020 Total Protein 7.0 Albumin 4.1 Lipase 98 TSH (Reflex) Urine Color Yellow Urine Appearance Cloudy H Urine pH 5.5 Ur Specific [place] 1.020 Urine Protein 4+ H Urine Glucose (UA) Negative Urine Ketones Trace H Ur Blood (Man) Negative Urine Nitrate Negative Urine Bilirubin Negative Urine Urobilinogen 1.0 Add Ur Microanalysis Reviewed Leukocyte Esterase Rfl Negative Urine RBC 3-5 H Urine WBC 0-5 Ur Squamous Epith Cells Few Urine Bacteria None seen Urine Casts >20 Hyaline Casts Present Urine Yeast (Budding) Present H 01/20/25 01/20/25 01/21/25 16:11 19:50 05:39 WBC 10.0 RBC 3.92 L Hgb 11.2 L Hct 36.3 L MCV 92.6 MCH 28.6 MCHC 30.9 L RDW 13.5 Plt Count 207 MPV 10.2 Immature Gran % (Auto) 0.4 Neut % (Auto) 76.6 H Lymph % (Auto) 16.2 L [place] % (Auto) 4.8 Eos % (Auto) 1.6 Baso % (Auto) 0.4 Lymph # (Auto) 1.62 [place] # (Auto) 0.5 Eos # (Auto) 0.2 Baso # (Auto) 0.0 Abs Immat Gran (auto) 0.04 H Absolute Neuts (auto) 7.7 H Absolute Nucleated RBC 0.000 Nucleated RBC % 0.0 Sodium 138 Potassium 4.2 Chloride 111 H Carbon Dioxide 17 L Anion Gap 10 BUN 32 H Creatinine 2.46 H Estim Creat Clear Calc 36 Estimated GFR 21 L Glucose 200 H POC Capillary Glucose 155 H 219 H Hemoglobin A1c Calcium 9.5 Magnesium 2.0 Total Bilirubin AST ALT Alkaline Phosphatase Troponin I Total Protein Albumin Lipase TSH (Reflex) 2.140 Urine Color Urine Appearance Urine pH Ur Specific [place] Urine Protein Urine Glucose (UA) Urine Ketones Ur Blood (Man) Urine Nitrate Urine Bilirubin Urine Urobilinogen Add Ur Microanalysis Leukocyte Esterase Rfl Urine RBC Urine WBC Ur Squamous Epith Cells Urine Bacteria Urine Casts Hyaline Casts Urine Yeast (Budding) 01/21/25 08:08 WBC RBC Hgb Hct MCV MCH MCHC RDW Plt Count MPV Immature Gran % (Auto) Neut % (Auto) Lymph % (Auto) [place] % (Auto) Eos % (Auto) Baso % (Auto) Lymph # (Auto) [place] # (Auto) Eos # (Auto) Baso # (Auto) Abs Immat Gran (auto) Absolute Neuts (auto) Absolute Nucleated RBC Nucleated RBC % Sodium Potassium Chloride Carbon Dioxide Anion Gap BUN Creatinine Estim Creat Clear Calc Estimated GFR Glucose POC Capillary Glucose 176 H Hemoglobin A1c Calcium Magnesium Total Bilirubin AST ALT Alkaline Phosphatase Troponin I Total Protein Albumin Lipase TSH (Reflex) Urine Color Urine Appearance Urine pH Ur Specific [place] Urine Protein Urine Glucose (UA) Urine Ketones Ur Blood (Man) Urine Nitrate Urine Bilirubin Urine Urobilinogen Add Ur Microanalysis Leukocyte Esterase Rfl Urine RBC Urine WBC Ur Squamous Epith Cells Urine Bacteria Urine Casts Hyaline Casts Urine Yeast (Budding) Quality VTE Prophylaxis VTE prophylaxis: pharmacologic ordered Hospitalist MIPS Advance Care Plan I have confirmed that the patient's Advanced Care Plan is present, code status is documented, or surrogate decision maker is listed in patient medical record.: Yes Medication Reconciliation I have utilized all available resources to obtain, update and review the patients current medications (includes all prescriptions, OTC, herbals, cannabis, and nutritional supplements).: Yes
[2025-01-21 09:05] VITALS: PULSE 72
[2025-01-21] MEDS: FLUCONAZOLE 100 MG TABLET PO (09:05)
[2025-01-21] MEDS: CHOLECALCIFEROL 5,000 UNITS TABLET 5000 UNITS PO (09:05)
[2025-01-21] MEDS: SERTRALINE HCL 50 MG TABLET 100 MG PO (09:05)
[2025-01-21] MEDS: METOPROLOL SUCCINATE EXT REL 50 MG TABCR BY MOUTH (09:05)
[2025-01-21] MEDS: LUBIPROSTONE 24 MCG CAPSULE BY MOUTH (09:05)
[2025-01-21] MEDS: ALPRAZolam (*CRX) 0.5 MG TABLET PO ×2 (09:05→12:37)
[2025-01-21] MEDS: PIOGLITAZONE HCL 15 MG TAB PO (09:06)
[2025-01-21] MEDS: TOPIRAMATE 25 MG TABLET 50 MG PO (09:06)
[2025-01-21] MEDS: ACYCLOVIR 400 MG TABLET PO (09:06)
[2025-01-21] MEDS: ENOXAPARIN 40 MG/0.4 ML SYRINGE SUB-Q (09:06)
[2025-01-21] MEDS: amLODIPine BESYLATE 5 MG TABLET BY MOUTH (09:06)
[2025-01-21] MEDS: LOSARTAN POTASSIUM 100 MG TABLET PO (09:07)
[2025-01-21] MEDS: INSULIN GLARGINE (*BKC) 100 UNITS/ML 38 UNITS SUB-Q ×2 (09:13→22:24)
[2025-01-21] MEDS: PANTOPRAZOLE 40 MG TABLET PO (09:25)
[2025-01-21 11:33] LABS: Glucose Point of Care 189 mg/dl (65-105)
[2025-01-21] MEDS: SODIUM CHLORIDE 0.9% IV 1,000 ML 75 ML IV CONT (12:37)
[2025-01-21] MEDS: DICYCLOMINE HCL 10 MG CAPSULE 20 MG PO (13:04)
--- NOTE | 2025-01-21 13:16 | P.CONNP_ITS ---
Assessment and Plan Assessment and plan (1) Acute kidney injury: Code(s): N17.9 - Acute kidney failure, unspecified Status: Acute Assessment and Plan: * as noted on admission (with a creatinine of 2.94mg/dl) * suspect due to prerenal factors (poor oral intake + diarrhea) along with continued use of diuretics prior to admission * improvement noted with IVF hydration and holding diuretics * will eventually need to restart diuretics given her propensity for fluid retention/edema (probably closer to discharge)) * CT A/P and UA noted * check urine studies and CPK * follow trend of repeat labs and UOP (2) Chronic kidney disease, stage IV (severe): Code(s): N18.4 - Chronic kidney disease, stage 4 (severe) Status: Chronic Assessment and Plan: * baseline creatinine runs ~ 2.0 - 2.5mg/dl in the last year * outpatient evaluation significant for normal renal ultrasound, negative serological profile, and nephrotic range proteinuria * CKD thought to be due to her previous bouts of LUKE/ARF along with diabetes, hypertension, and necessity of chronic diuretic therapy * diuretics are needed to keep swelling/edema (which is secondary to proteinuria) stable/controlled (3) Diarrhea: Code(s): R19.7 - Diarrhea, unspecified Status: Acute Assessment and Plan: * as noted by history * complicated by know history of irritable bowel syndrome * follow clinical symptoms (4) Hypertension: Code(s): I10 - Essential (primary) hypertension Status: Acute Assessment and Plan: * reasonable control * on metoprolol, amlodipine, prazosin, and losartan * may need to hold losartan depending trend of renal function * follow trend of hemodynamics (5) Insulin dependent diabetes mellitus: Status: Chronic Assessment and Plan: * follow accu-cheks * glycemic control per hospitalist I will continue to follow the patient with you while she remains hospitalized and make further recommendations as deemed necessary. Thank you for allowing me to participate in the care of this patient. L History of Present Illness Reason for Consult Consult date: 01/21/25 Reason for consult: acute renal failure (on chronic kidney disease) Chief Complaint Chief complaint: dehydration,acute kidney injury History of Present Illness Narrative: The patient is a 49-year-old female with a past medical history as outlined below who presented to [facility] Emergency Room with complaints of abdominal pain and diarrhea. The patient reports that she has had symptoms of right-sided abdominal pain /discomfort which she describes as a sensation of fullness in association with nausea and diarrhea for the past 5 days if not longer. Diarrhea has been coming every 2 hours but states that seems to have slowed down a little bit on the day of presentation to the ER. Given these symptoms, she has not been eating and drinking very well and has noted increasing fatigue / weakness in association with lightheadedness particularly when standing up. Given her profound fatigue it has been difficult for her to do her activities of daily living as she sometimes sleeps almost 16 hours a day. She has not tried anything for his symptoms but given her known history of irritable bowel syndrome with constipation, she does take stool softeners, fiber gummies, and lubiprostone. she denies any history of fevers, chills, diaphoresis, vomiting, melena, hematochezia, or dysuria. Given the progression of the symptoms as noted, she presented to the ER for further assessment. Workup and evaluation emergency room demonstrated the patient to be afebrile and hemodynamically stable. Routine blood tests were done which were significant for a white blood cell count 11.2, hemoglobin 12.6, BUN of 36, creatinine of 2.94, glucose of 157 and a urinalysis with 4+ protein, trace ketones, 3 - 5 RBCs , and budding yeast. Given her significant abdominal/GI symptoms, she underwent a CT scan of the abdomen pelvis which demonstrated no acute intra-abdominal findings other than the past renal megaly and fecal stasis within the colon. Given evidence of acute kidney injury on top of her baseline kidney disease in conjunction with her constellation of symptoms, she was initiated on IV fluids and subsequently admitted to the hospital for further evaluation and therapy. Since her admission, her renal function has improved somewhat with current interventions/therapy but she still continues have significant loose stools/diarrhea at the time of my visit. Renal consultation was requested due to her acute kidney injury/acute renal failure on top of her baseline chronic kidney disease. The patient is somewhat familiar to me as I follow her in the office for management of her chronic kidney disease. In the last year so, her creatinine has been running around 2.0 - 2.5 mg/dL and is thought to be secondary to a combination of her diabetes, hypertension, and previous bouts of acute kidney injury/acute renal failure secondary to volume depletion given her known history of cyclic vomiting syndrome. Her renal dysfunction is further complicated by the fact that she requires chronic diuretic therapy to maintain stability in her fluid /volume status and edema. Her issues with fluid retention and swelling are secondary to her nephrotic range proteinuria/nephrotic syndrome. Currently, at the time my evaluation, this patient still does not feel very good secondary to her ongoing issues/ problems with diarrhea. Review of Systems 2 Review of Systems: As per HPI. 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 Gastroparesis Irritable bowel syndrome with constipation Cyclic vomiting syndrome Insulin dependent diabetes mellitus Hyperlipidemia Hypertension Gastroesophageal reflux disease Vitamin B 12 deficiency Anxiety Depression Hypothyroidism Fibromyalgia Rheumatoid arthritis Endometriosis Herpes Uterine fibroid Peptic ulcer Bronchitis Surgical History Surgical History (Updated 01/20/25 @ 19:53 by Henny Herrera PA-C) History of cholecystectomy History of detached retina repair History of partial knee replacement History of hysterectomy History of laparoscopy Removal of uterine fibroids Family History Family History Mother Diabetes mellitus Hypertension Family history of elevated blood lipids Sibling Family history of obesity Patient's sister is in good health Father Hypertension Family history of cardiovascular disease Other Acute myocardial infarction Family history of arthritis Family history of heart disease in male family member before age 55 Family history of thyroid disease Social History Social History Social History: Lives alone in [place]. with no children. No alcohol, tobacco, illicit substance abuse. Surrogate decision maker: Susan Mariano, sister. Code status: Full code. Caffeine-daily Smoking status: Never smoker Alcohol intake: never Drinks per week: 1 Alcohol use details: rarely Substance use: never Substance use type: does not use Do You Feel Safe in your Home?: Yes Lack of Transportation: No Lack of Food: Never True Current Housing: I Have Housing Concerned About Future Housing: No Difficulty Paying Gas/Electric Bills: No Difficulty Paying for Meds: No Currently Unemployed: No Education: Associate Degree Difficulty w/ Childcare or Family Care: No Living arrangements: with family Spiritual care concerns: No Meds Home Medications and Allergies Home Medications ?Medication ?Instructions ?Recorded ?Confirmed ?Type docusate sodium 100 mg capsule 100 mg PO DAILY 11/02/19 01/20/25 History (Colace) sertraline 100 mg tablet (Zoloft) 100 mg PO DAILY 11/02/19 01/20/25 History zolpidem 10 mg tablet 10 mg PO QPM PRN Insomnia 11/02/19 01/20/25 History prazosin 2 mg capsule (Minipress) 2 mg PO HS 07/03/20 01/20/25 History coenzyme Q10 100 mg capsule (Co 100 mg PO DAILY 10/03/21 01/20/25 History Q-10) trazodone 50 mg tablet 50 mg PO HS 05/21/22 01/20/25 History Humalog KwikPen Insulin See Protocol subcut TIDWMEAL 03/22/23 01/20/25 History atorvastatin 10 mg tablet 20 mg PO QHS 04/02/23 01/20/25 History ondansetron 4 mg disintegrating 4 mg PO Q8H PRN nausea and 06/03/23 01/20/25 Rx tablet vomiting #10 tabs sumatriptan succinate 6 mg/0.5 mL 6 mg subcut ONCE PRN Migraine 08/01/23 01/20/25 History subcutaneous pen injector Headache alprazolam 0.5 mg tablet 0.5 mg PO TID 09/10/23 01/20/25 History blood-glucose sensor (FreeStyle #1 ea 05/13/24 01/20/25 History Sharita 3 Sensor device) glucagon 3 mg/actuation nasal 3 mg intranasal PRN PRN 05/13/24 01/20/25 History spray (Baqsimi) Hypoglycemia insulin glargine 100 unit/mL (3 38 unit subcut BID 05/13/24 01/20/25 History mL) subcutaneous pen (Lantus Solostar U-100 Insulin) pen needle, diabetic 32 gauge x #1,200 ea 05/13/24 01/20/25 History (BD Mer 2nd Gen Pen Needle) pioglitazone 15 mg tablet 15 mg PO DAILY 05/13/24 01/20/25 History cholecalciferol (vitamin D3) 1,250 1,250 mcg PO WEEKLY 06/02/24 01/20/25 History mcg (50,000 unit) tablet prochlorperazine maleate 10 mg 20 mg PO Q4-6H PRN Nausea 06/02/24 01/20/25 History tablet bumetanide 1 mg tablet 1 mg PO BID #60 tabs 06/25/24 01/20/25 Rx spironolactone 25 mg tablet 25 mg PO DAILY #30 tabs 06/25/24 01/20/25 Rx acyclovir 400 mg tablet 400 mg PO BID #180 tabs 08/20/24 01/20/25 Rx cholecalciferol (vitamin D3) 125 125 mcg PO DAILY 08/20/24 01/20/25 History mcg (5,000 unit) tablet zinc citrate 11 mg chewable tablet 11 mg PO DAILY 08/20/24 01/20/25 History losartan 100 mg tablet 100 mg PO DAILY #90 tabs 09/25/24 01/20/25 Rx amitriptyline 25 mg tablet 50 mg (2 x 25 mg) PO HS #180 tabs 11/18/24 01/20/25 Rx metoprolol succinate 50 mg See Rx Instructions .Route 11/24/24 01/20/25 Rx tablet,extended release 24 hr .COMPLEX #90 tabs pantoprazole 40 mg tablet,delayed 40 mg PO DAILY PRN Nausea #90 tabs 11/24/24 01/20/25 Rx release amlodipine 5 mg tablet See Rx Instructions .Route 01/04/25 01/20/25 Rx .COMPLEX #90 tabs lubiprostone 24 mcg capsule See Rx Instructions .Route 01/04/25 01/20/25 Rx .COMPLEX #60 caps topiramate 25 mg sprinkle capsule 50 mg (2 x 25 mg) PO BID #360 caps 01/12/25 01/20/25 Rx (Topamax) Allergies Allergy/AdvReac Type Severity Reaction Status Date / Time hydralazine Allergy Severe Itching Verified 08/20/24 07:40 latex Allergy Severe itching Verified 08/20/24 07:40 metoclopramide Allergy Severe Redness of Verified 08/20/24 07:40 Skin Vital Signs Vital Signs Temp Pulse Resp BP Pulse Ox O2 Del Method FiO2 01/21/25 09:05 72 01/21/25 08:00 Room Air 01/21/25 05:51 98.3 F 95 12 155/71 H 100 01/20/25 23:51 98 Room Air 21 01/20/25 21:18 98.1 F 64 16 161/72 H 97 01/20/25 20:00 Room Air Exam 2 Narrative: GENERAL APPEARANCE: well developed well nourished female in no acute distress HEENT: normocephalic, atraumatic, normal conjunctiva and sclera, nares patient NECK: no lymphadenopathy, thyromegaly, or JVD MOUTH: normal lips, teeth, and gums CARDIOVASCULAR: RRR, normal S1 and S2, no rub RESPIRATORY: clear to auscultation bilaterally ABDOMEN: soft, nontender, nondistended, positive bowel sounds present EXTREMITIES: no evidence of cyanosis, clubbing, or edema NEUROLOGICAL: alert and oriented x 3; CN II - XII intact bilaterally; no focal deficits noted Results Lab Results 01/22/25 22:03 01/23/25 02:09 Lab results: Most recent lab results Calcium 9.5 mg/dL (8.4-10.2) 01/21/25 05:39 Magnesium 2.0 mg/dL (1.6-2.3) 01/21/25 05:39
[2025-01-21 14:00] VITALS: BP 150/65; PULSE 74; RESP 20; TEMP 36.4; O2SAT 98
[2025-01-21 17:16] LABS: Glucose Point of Care 199 mg/dl (65-105)
[2025-01-21] MEDS: ONDANSETRON INJ 4 MG/2 ML VIAL IV PUSH (18:46)
[2025-01-21 20:30] VITALS: BP 145/76; PULSE 85; RESP 16; TEMP 36.3; O2SAT 96
[2025-01-21 21:14] LABS: Glucose Point of Care 244 mg/dl (65-105)
[2025-01-21] MEDS: AMITRIPTYLINE HCL 25 MG TABLET 50 MG PO (21:33)
[2025-01-21] MEDS: ATORVASTATIN 10 MG TABLET 20 MG PO (21:33)
[2025-01-21] MEDS: traZODone HCL 50 MG TABLET PO (21:33)
[2025-01-21] MEDS: PRAZOSIN HCL 1 MG CAPSULE 2 MG PO (21:33)
[2025-01-21] MEDS: MECLIZINE HCL 12.5 MG TABLET PO (21:38)
[2025-01-21] MEDS: ZOLPIDEM TARTRATE (*CRX) 5 MG TABLET 10 MG PO ×2 (21:42→22:29)
[2025-01-21] MEDS: INSULIN ASPART (*BKC) 100 UNITS/ML SUB-Q (22:22)
[2025-01-22] MEDS: ONDANSETRON INJ 4 MG/2 ML VIAL IV PUSH ×3 (01:15→13:13)
[2025-01-22 05:29] VITALS: BP 153/79; PULSE 66; RESP 16; TEMP 36.8; O2SAT 97
[2025-01-22 06:34] LABS: Hematocrit 37.2 % (37.0-47.0); Hemoglobin 11.4 g/dL (12.0-15.0); Mean Corpuscular HGB Conc 30.6 g/dl (32-36); Mean Corpuscular Hemoglobin 28.8 pg (26-34); Mean Corpuscular Volume 93.9 fl (80-100); Mean Platelet Volume 10.3 fl (7.4-10.4); Platelet Count Result 191 k/mm3 (150-375); Red Blood Count 3.96 M/mm3 (4.2-5.4); Red Cell Distribution Width 13.3 % (11.5-14.5); White Blood Count 9.8 K/mm3 (4.5-10.0)
[2025-01-22 06:44] LABS: Albumin Level 3.4 g/dL (3.5-5.1); Anion Gap 8 mmol/L (4-12); Blood Urea Nitrogen 31 mg/dL (7-17); Calcium 9.3 mg/dL (8.4-10.2); Carbon Dioxide 18 mmol/L (22-30); Chloride 112 mmol/L (98-107); Creatine Kinase 22 U/L (30-135); Estimated CRCL calculation 41 ml/min; Estimated Glomerular Filt Rate 24; Glucose 216 mg/dL (65-110); Phosphorus 3.6 mg/dL (2.5-4.5); Potassium 4.4 mmol/L (3.4-5.0); Sodium 138 mmol/L (137-145)
[2025-01-22 07:45] LABS: Glucose Point of Care 206 mg/dl (65-105)
[2025-01-22] MEDS: INSULIN ASPART (*BKC) 100 UNITS/ML SUB-Q ×4 (09:02→22:43)
[2025-01-22] MEDS: INSULIN GLARGINE (*BKC) 100 UNITS/ML 38 UNITS SUB-Q ×2 (09:03→22:44)
[2025-01-22] MEDS: LOSARTAN POTASSIUM 100 MG TABLET PO (09:23)
[2025-01-22 09:24] VITALS: PULSE 74
[2025-01-22] MEDS: METOPROLOL SUCCINATE EXT REL 50 MG TABCR BY MOUTH (09:24)
[2025-01-22] MEDS: amLODIPine BESYLATE 5 MG TABLET BY MOUTH (09:24)
[2025-01-22] MEDS: CHOLECALCIFEROL 5,000 UNITS TABLET 5000 UNITS PO (09:24)
[2025-01-22] MEDS: FLUCONAZOLE 100 MG TABLET PO (09:24)
[2025-01-22] MEDS: ALPRAZolam (*CRX) 0.5 MG TABLET PO ×3 (09:24→17:43)
[2025-01-22] MEDS: TOPIRAMATE 25 MG TABLET 50 MG PO ×2 (09:25→17:43)
[2025-01-22] MEDS: PIOGLITAZONE HCL 15 MG TAB PO (09:25)
[2025-01-22] MEDS: ACYCLOVIR 400 MG TABLET PO ×2 (09:25→17:43)
[2025-01-22] MEDS: BUMETANIDE 1 MG TABLET PO (09:25)
[2025-01-22] MEDS: MECLIZINE HCL 12.5 MG TABLET PO ×4 (09:25→22:42)
[2025-01-22] MEDS: SERTRALINE HCL 50 MG TABLET 100 MG PO (09:25)
[2025-01-22] MEDS: SPIRONOLACTONE 25 MG TABLET PO (09:26)
[2025-01-22] MEDS: ENOXAPARIN 40 MG/0.4 ML SYRINGE SUB-Q (09:26)
--- NOTE | 2025-01-22 10:01 | P.PNNP_ITS ---
Progress Note: A&P Assessment and Plan (1) Acute kidney injury: Code(s): N17.9 - Acute kidney failure, unspecified Status: Acute Assessment and Plan: * as noted on admission (with a creatinine of 2.94mg/dl) * suspect due to prerenal factors (poor oral intake + diarrhea) along with continued use of diuretics prior to admission * improvement noted with IVF hydration and holding diuretics * will eventually need to restart diuretics given her propensity for fluid retention/edema (probably closer to discharge) * evaluation to date noted: * CT A/P without evidence of obstruction * UA noted * urine electrolytes non-prerenal * nephrotic range proteinuria * urine eosinophils negative * CPK low * given ongoing diarrhea - would continue to hold diuretic therapy * follow trend of repeat labs and UOP (2) Chronic kidney disease, stage IV (severe): Code(s): N18.4 - Chronic kidney disease, stage 4 (severe) Status: Chronic Assessment and Plan: * baseline creatinine runs ~ 2.0 - 2.5mg/dl in the last year * outpatient evaluation significant for normal renal ultrasound, negative serological profile, and nephrotic range proteinuria * CKD thought to be due to her previous bouts of LUKE/ARF along with diabetes, hypertension, and necessity of chronic diuretic therapy * diuretics are needed to keep swelling/edema (which is secondary to proteinuria) stable/controlled (3) Diarrhea: Code(s): R19.7 - Diarrhea, unspecified Status: Acute Assessment and Plan: * as noted by history * complicated by know history of irritable bowel syndrome * follow-up on stool studies * follow clinical symptoms (4) Hypertension: Code(s): I10 - Essential (primary) hypertension Status: Acute Assessment and Plan: * reasonable control * on metoprolol, amlodipine, prazosin, and losartan * may need to hold losartan depending trend of renal function * follow trend of hemodynamics (5) Insulin dependent diabetes mellitus: Status: Chronic Assessment and Plan: * follow accu-cheks * glycemic control per hospitalist Will continue to follow. L Subjective Date/time seen: 01/22/25 10:01 Interval history: Follow-up for acute kidney injury/acute renal failure on chronic kidney disease. Renal function/creatinine appears to be doing better with reasonable urine output; still reports issues with diarrhea at the time of my visit; remains on IVFs (but received diuretics the AM - bumex and spironolactone); no other issues/events overnight or earlier this morning. Exam 2 Narrative: General: WD/WN female in NAD Heart: normal S1 and S2; no rub Lungs: clear to auscultation Abdomen: soft, mild TTP, nondistended, positive bowel sounds Extremities: no cyanosis or clubbing; no edema Skin: warm and dry Objective Data Vital Signs Vital Signs: Vital Signs Temp Pulse Resp BP Pulse Ox 01/22/25 09:24 97.6 F 71 18 139/64 98 01/22/25 05:29 98.2 F 66 16 153/79 H 97 01/21/25 20:30 97.3 F L 85 16 145/76 H 96 Intake/Output Intake/Output: Intake & Output 01/19/25 01/20/25 01/21/25 01/22/25 23:59 23:59 23:59 23:59 Intake Total 1360 2280 2445 Output Total 200 Balance 1360 2280 2245 Meds/Results Medications: Active Medications Generic Name Dose Route Start Last Admin Trade Name Freq PRN Reason Stop Dose Admin Acetaminophen 650 mg 01/20/25 13:52 01/22/25 13:45 Acetaminophen 325 Mg Tablet PO 650 mg Q6H PRN Administration Mild Pain (1-3) or Fever Acyclovir 400 mg 01/20/25 20:15 01/22/25 17:43 Acyclovir 400 Mg Tablet PO 400 mg BID SANTHOSH Administration Alprazolam 0.5 mg 01/20/25 20:15 01/22/25 17:43 Alprazolam (*Crx) 0.5 Mg Tablet PO 0.5 mg TID SANTHOSH Administration Amitriptyline HCl 50 mg 01/20/25 20:15 01/21/25 21:33 Amitriptyline Hcl 25 Mg Tablet PO 50 mg HS SANTHOSH Administration Amlodipine Besylate 5 mg 01/21/25 09:00 01/22/25 09:24 Amlodipine Besylate 5 Mg Tablet BY MOUTH 5 mg DAILY [facility]TH[facility] Administration Atorvastatin Calcium 20 mg 01/20/25 20:15 01/21/25 21:33 Atorvastatin 10 Mg Tablet PO 20 mg QHS SANTH[facility]H Administration Bumetanide 1 mg 01/22/25 09:00 01/22/25 09:25 Bumetanide 1 Mg Tablet PO 1 mg BID SANTH[facility]H Administration Dextrose 12.5 gm 01/20/25 13:52 Dextrose 50% 25 Gm/50 Ml Syringe IV PUSH PRN PRN Hypoglycemia Protocol Dicyclomine HCl 20 mg 01/21/25 12:30 01/21/25 13:04 Dicyclomine Hcl 10 Mg Capsule PO 20 mg QID PRN Administration Abdominal Cramping Docusate Sodium 100 mg 01/21/25 09:00 01/22/25 09:18 Docusate Sodium 100 Mg Capsule PO Not Given DAILY [facility] Enoxaparin Sodium 40 mg 01/21/25 09:00 01/22/25 09:26 Enoxaparin 40 Mg/0.4 Ml Syringe SUB-Q 40 mg DAILY [facility] Administration Glucagon 1 mg 01/20/25 13:52 Glucagon For Inj 1 Mg Vial IM PRN PRN Hypoglycemia Protocol Glucose 15 gm 01/20/25 13:52 Glucose Oral Gel 15 Gm Of Glucse In 37.5 Gm Tube PO PRN PRN Hypoglycemia Protocol Dextrose 1,000 mls @ 100 mls/hr 01/20/25 13:52 Dextrose 5% 1,000 Ml IVPB PRN PRN Hypoglycemia Protocol Sodium Chloride 1,000 mls @ 75 mls/hr 01/21/25 08:40 01/21/25 12:37 Normal Saline Iv IV CONT 75 mls/hr .[id number] SANTHOSH Administration Insulin Aspart 3 - 6 units 01/20/25 17:00 01/22/25 17:42 Insulin Aspart (*Bkc) 100 Units/Ml SUB-Q 5 units TIDWM [facility]THOSH Administration Protocol Insulin Aspart 1 - 3 units 01/20/25 21:00 01/21/25 22:22 Insulin Aspart (*Bkc) 100 Units/Ml SUB-Q 1 units HS ASNTHOSH Administration Protocol Insulin Glargine 38 units 01/20/25 21:00 01/22/25 09:03 Insulin Glargine (*Bkc) 100 Units/Ml SUB-Q 38 units Q12HR [facility]TH[facility]H Administration Losartan Potassium 100 mg 01/21/25 09:00 01/22/25 09:23 Losartan Potassium 100 Mg Tablet PO 100 mg DAILY SANTH[facility] Administration Lubiprostone 24 mcg 01/20/25 20:05 01/22/25 17:43 Lubiprostone 24 Mcg Capsule BY MOUTH Not Given BID [facility] Meclizine HCl 12.5 mg 01/21/25 17:00 01/22/25 17:43 Meclizine Hcl 12.5 Mg Tablet PO 12.5 mg QID SANTHOSH Administration Metoprolol Succinate 50 mg 01/21/25 09:00 01/22/25 09:24 Metoprolol Succinate Ext Rel 50 Mg Tabcr BY MOUTH 50 mg DAILY SANTH[facility] Administration Ondansetron HCl 4 mg 01/20/25 12:30 01/22/25 13:13 Ondansetron Inj 4 Mg/2 Ml Vial IV PUSH 4 mg Q4H PRN Administration Nausea Pantoprazole Sodium 40 mg 01/20/25 20:04 01/21/25 09:25 Pantoprazole 40 Mg Tablet PO 40 mg DAILY PRN Administration Nausea Pioglitazone HCl 15 mg 01/21/25 09:00 01/22/25 09:25 Pioglitazone Hcl 15 Mg Tab PO 15 mg DAILY [facility] Administration Prazosin HCl 2 mg 01/20/25 21:00 01/21/25 21:33 Prazosin Hcl 1 Mg Capsule PO 2 mg HS SANTHOSH Administration Sertraline HCl 100 mg 01/21/25 09:00 01/22/25 09:25 Sertraline Hcl 50 Mg Tablet PO 100 mg DAILY [facility] Administration Spironolactone 25 mg 01/22/25 09:00 01/22/25 09:26 Spironolactone 25 Mg Tablet PO 25 mg DAILY [facility] Administration Topiramate 50 mg 01/20/25 20:15 01/22/25 17:43 Topiramate 25 Mg Tablet PO 50 mg BID SANTH[facility] Administration Trazodone HCl 50 mg 01/20/25 21:00 01/21/25 21:33 Trazodone Hcl 50 Mg Tablet PO 50 mg HS SANTHOSH Administration Vitamin D 5,000 units 01/21/25 09:00 01/22/25 09:24 Cholecalciferol 5,000 Units Tablet PO 5,000 units DAILY [facility] Administration Zolpidem Tartrate 10 mg 01/20/25 20:04 01/21/25 22:29 Zolpidem Tartrate (*Crx) 5 Mg Tablet PO 10 mg HS PRN Administration Insomnia Radiology Results: ITS Impressions Abdomen/Pelvis CT 01/20/25 10:15 IMPRESSION: Hepatosplenomegaly. Otherwise, no acute findings within the abdomen or pelvis, as detailed above. Labs Labs: Laboratory Tests 01/22/25 06:11 01/22/25 06:11 01/22/25 06:11 Calcium 9.3 Phosphorus 3.6 Total Creatine Kinase 22 L Albumin 3.4 L
[2025-01-22 11:54] LABS: Glucose Point of Care 248 mg/dl (65-105)
[2025-01-22 12:28] LABS: Sodium Urine Random 82 meq/L; Urea Random Urine 455 MG/DL
[2025-01-22 12:33] LABS: Total Protein Urine Random 534 mg/dL; Ur Ttl Prot Creatinine Ratio 7.32 mg/mg (0-0.20)
[2025-01-22 13:01] LABS: Eosinophil Urine None Seen % (None Seen)
[2025-01-22 13:03] LABS: Urine Eos QC 2nd Tech Confirmed
[2025-01-22] MEDS: ACETAMINOPHEN 325 MG TABLET 650 MG PO (13:45)
--- NOTE | 2025-01-22 13:45 | P.PNIM_ITS ---
Progress Note: A&P Assessment and Plan (1) Acute on chronic renal failure: Code(s): N17.9 - Acute kidney failure, unspecified; N18.9 - Chronic kidney disease, unspecified Status: Acute Assessment and Plan: resolved to baseline creatinine Continue IVF as patient is still having diarrhea (2) Dehydration: Code(s): E86.0 - Dehydration Status: Acute Assessment and Plan: Secondary to decreased oral intake and diarrhea Gentle IV hydration (3) Diarrhea: Code(s): R19.7 - Diarrhea, unspecified Status: Acute Assessment and Plan: With fecal stasis and diarrhea Avoid anti diarrheal medications Stool studies ordered Continue IVF and oral intake (4) Irritable bowel syndrome with constipation: Code(s): K58.1 - Irritable bowel syndrome with constipation Status: Acute Assessment and Plan: stool softeners, fiber gummies, and lubiprostone which will be continued (5) Insulin dependent diabetes mellitus: Status: Acute Assessment and Plan: Diabetic diet Accu-Cheks a.c. HS Lantus and actos reordered SSI (6) Hypertension: Code(s): I10 - Essential (primary) hypertension Status: Acute Assessment and Plan: Can restart antihypertensives and diuretics tomorrow Plan Apnea link ordered to screen for obstructive sleep apnea given prolonged fatigue. DVT prophylaxis on Sq Lovenox Subjective Date/time seen: 01/22/25 13:45 Interval history: Comfortable at bedside still having diarrhea Stool studies ordered Review of Systems Review of Systems: 12 systems were reviewed and are negativ e except for as per HPI. Exam Narrative: General: well appearing, appears stated age. HEENT: normocephalic, atraumatic. Mucous membranes moist. EOMI, PERRLA, bilateral sclera anicteric, no conjunctival injection. Neck supple without JVD, lymphadenopathy, or bruit. Respiratory: clear to ascultation bilaterally. No rales/rhonic/wheezes. Cardiovascular: Regular rate and rhythm, normal S1-S2 upon ascultation. No murmurs, rubs, or clicks. PMI is nondisplaced, capillary refill less than 3 second. Abdomen: Soft, round, no pulsatile masses, nondistended and nontender. No rebound, no guarding. No CVA tenderness, no hepatosplenomegaly. Bowel sounds present to all four quadrants. No high pitch or tinkling sounds, resonant to percussion. Extremities: No cyanosis, clubbing, or edema present. Pulses are palpable 2/2. Active ROM to all four extremities. Neuro: Alert and orientated x 4. PERRLA. Cranial nerves 2-12 intact without focal deficit. Skin: Warm, dry, and intact, without rash, erythema, or lesion. Psych: pleasant, cooperative, normal speech, normal affect, no hallucinations, no dysarthia Objective Data Vital Signs Vital Signs: Vital Signs - 24 hr 01/21/25 14:00 01/21/25 20:30 01/22/25 05:29 Temperature 97.6 F 97.3 F L 98.2 F Pulse Rate 74 85 66 Respiratory Rate 20 16 16 Blood Pressure 150/65 H 145/76 H 153/79 H Pulse Oximetry 98 96 97 01/22/25 09:24 Temperature Pulse Rate 74 Respiratory Rate Blood Pressure Pulse Oximetry Intake/Output Intake/Output: Intake & Output 01/19/25 01/20/25 01/21/25 01/22/25 23:59 23:59 23:59 23:59 Intake Total 1360 2280 1971 Output Total 200 Balance 1360 2280 1771 Meds/Results Medications: Active Medications Generic Name Dose Route Start Last Admin Trade Name Freq PRN Reason Stop Dose Admin Acetaminophen 650 mg 01/20/25 13:52 Acetaminophen 325 Mg Tablet PO Q6H PRN Mild Pain (1-3) or Fever Acyclovir 400 mg 01/20/25 20:15 01/22/25 09:25 Acyclovir 400 Mg Tablet PO 400 mg BID SANTHOSH Administration Alprazolam 0.5 mg 01/20/25 20:15 01/22/25 13:02 Alprazolam (*Crx) 0.5 Mg Tablet PO 0.5 mg TID SANTHOSH Administration Amitriptyline HCl 50 mg 01/20/25 20:15 01/21/25 21:33 Amitriptyline Hcl 25 Mg Tablet PO 50 mg HS SANTHOSH Administration Amlodipine Besylate 5 mg 01/21/25 09:00 01/22/25 09:24 Amlodipine Besylate 5 Mg Tablet BY MOUTH 5 mg DAILY SANTH[facility]H Administration Atorvastatin Calcium 20 mg 01/20/25 20:15 01/21/25 21:33 Atorvastatin 10 Mg Tablet PO 20 mg QHS SANTHOSH Administration Bumetanide 1 mg 01/22/25 09:00 01/22/25 09:25 Bumetanide 1 Mg Tablet PO 1 mg BID SANTHOSH Administration Dextrose 12.5 gm 01/20/25 13:52 Dextrose 50% 25 Gm/50 Ml Syringe IV PUSH PRN PRN Hypoglycemia Protocol Dicyclomine HCl 20 mg 01/21/25 12:30 01/21/25 13:04 Dicyclomine Hcl 10 Mg Capsule PO 20 mg QID PRN Administration Abdominal Cramping Docusate Sodium 100 mg 01/21/25 09:00 01/22/25 09:18 Docusate Sodium 100 Mg Capsule PO Not Given DAILY [facility] Enoxaparin Sodium 40 mg 01/21/25 09:00 01/22/25 09:26 Enoxaparin 40 Mg/0.4 Ml Syringe SUB-Q 40 mg DAILY SANTH[facility]H Administration Glucagon 1 mg 01/20/25 13:52 Glucagon For Inj 1 Mg Vial IM PRN PRN Hypoglycemia Protocol Glucose 15 gm 01/20/25 13:52 Glucose Oral Gel 15 Gm Of Glucse In 37.5 Gm Tube PO PRN PRN Hypoglycemia Protocol Dextrose 1,000 mls @ 100 mls/hr 01/20/25 13:52 Dextrose 5% 1,000 Ml IVPB PRN PRN Hypoglycemia Protocol Sodium Chloride 1,000 mls @ 75 mls/hr 01/21/25 08:40 01/21/25 12:37 Normal Saline Iv IV CONT 75 mls/hr .[id number] SANTHOSH Administration Insulin Aspart 3 - 6 units 01/20/25 17:00 01/22/25 13:01 Insulin Aspart (*Bkc) 100 Units/Ml SUB-Q 3 units TIDWM SANTHOSH Administration Protocol Insulin Aspart 1 - 3 units 01/20/25 21:00 01/21/25 22:22 Insulin Aspart (*Bkc) 100 Units/Ml SUB-Q 1 units HS SANTHOSH Administration Protocol Insulin Glargine 38 units 01/20/25 21:00 01/22/25 09:03 Insulin Glargine (*Bkc) 100 Units/Ml SUB-Q 38 units Q12HR SANTH[facility]H Administration Losartan Potassium 100 mg 01/21/25 09:00 01/22/25 09:23 Losartan Potassium 100 Mg Tablet PO 100 mg DAILY SANTH[facility]H Administration Lubiprostone 24 mcg 01/20/25 20:05 01/22/25 09:18 Lubiprostone 24 Mcg Capsule BY MOUTH Not Given BID [facility] Meclizine HCl 12.5 mg 01/21/25 17:00 01/22/25 13:02 Meclizine Hcl 12.5 Mg Tablet PO 12.5 mg QID SANTH[facility] Administration Metoprolol Succinate 50 mg 01/21/25 09:00 01/22/25 09:24 Metoprolol Succinate Ext Rel 50 Mg Tabcr BY MOUTH 50 mg DAILY [facility] Administration Ondansetron HCl 4 mg 01/20/25 12:30 01/22/25 13:13 Ondansetron Inj 4 Mg/2 Ml Vial IV PUSH 4 mg Q4H PRN Administration Nausea Pantoprazole Sodium 40 mg 01/20/25 20:04 01/21/25 09:25 Pantoprazole 40 Mg Tablet PO 40 mg DAILY PRN Administration Nausea Pioglitazone HCl 15 mg 01/21/25 09:00 01/22/25 09:25 Pioglitazone Hcl 15 Mg Tab PO 15 mg DAILY [facility] Administration Prazosin HCl 2 mg 01/20/25 21:00 01/21/25 21:33 Prazosin Hcl 1 Mg Capsule PO 2 mg HS SANTH[facility]H Administration Sertraline HCl 100 mg 01/21/25 09:00 01/22/25 09:25 Sertraline Hcl 50 Mg Tablet PO 100 mg DAILY [facility] Administration Spironolactone 25 mg 01/22/25 09:00 01/22/25 09:26 Spironolactone 25 Mg Tablet PO 25 mg DAILY [facility] Administration Topiramate 50 mg 01/20/25 20:15 01/22/25 09:25 Topiramate 25 Mg Tablet PO 50 mg BID SANTH[facility]H Administration Trazodone HCl 50 mg 01/20/25 21:00 01/21/25 21:33 Trazodone Hcl 50 Mg Tablet PO 50 mg HS SANTH[facility]H Administration Vitamin D 5,000 units 01/21/25 09:00 01/22/25 09:24 Cholecalciferol 5,000 Units Tablet PO 5,000 units DAILY [facility]TH[facility] Administration Zolpidem Tartrate 10 mg 01/20/25 20:04 01/21/25 22:29 Zolpidem Tartrate (*Crx) 5 Mg Tablet PO 10 mg HS PRN Administration Insomnia Radiology Results: ITS Impressions Abdomen/Pelvis CT 01/20/25 10:15 IMPRESSION: Hepatosplenomegaly. Otherwise, no acute findings within the abdomen or pelvis, as detailed above. Labs Labs: Laboratory Results - last 24 hr 01/21/25 01/21/25 01/22/25 17:10 20:33 06:11 WBC 9.8 RBC 3.96 L Hgb 11.4 L Hct 37.2 MCV 93.9 MCH 28.8 MCHC 30.6 L RDW 13.3 Plt Count 191 MPV 10.3 Sodium 138 Potassium 4.4 Chloride 112 H Carbon Dioxide 18 L Anion Gap 8 BUN 31 H Creatinine 2.16 H Estim Creat Clear Calc 41 Estimated GFR 24 L Glucose 216 H POC Capillary Glucose 199 H 244 H Calcium 9.3 Phosphorus 3.6 Total Creatine Kinase 22 L Albumin 3.4 L Urine Eosinophils U Random Total Protein Ur Random Sodium Ur Random Urea Urine Total Volume Urine Creatinine Protein/Creat Ratio 2 01/22/25 01/22/25 01/22/25 07:29 11:29 12:05 WBC RBC Hgb Hct MCV MCH MCHC RDW Plt Count MPV Sodium Potassium Chloride Carbon Dioxide Anion Gap BUN Creatinine Estim Creat Clear Calc Estimated GFR Glucose POC Capillary Glucose 206 H 248 H Calcium Phosphorus Total Creatine Kinase Albumin Urine Eosinophils None seen U Random Total Protein 534 Ur Random Sodium Ur Random Urea Urine Total Volume Urine Creatinine Protein/Creat Ratio 2 01/22/25 01/22/25 12:05 12:05 WBC RBC Hgb Hct MCV MCH MCHC RDW Plt Count MPV Sodium Potassium Chloride Carbon Dioxide Anion Gap BUN Creatinine Estim Creat Clear Calc Estimated GFR Glucose POC Capillary Glucose Calcium Phosphorus Total Creatine Kinase Albumin Urine Eosinophils U Random Total Protein Cancelled Ur Random Sodium 82 Ur Random Urea 455 Urine Total Volume Cancelled Urine Creatinine 73.0 Cancelled Protein/Creat Ratio 2 7.32 H Quality VTE Prophylaxis VTE prophylaxis: pharmacologic ordered
[2025-01-22 13:49] VITALS: BP 139/64; PULSE 71; RESP 18; TEMP 36.4; O2SAT 98
[2025-01-22 16:41] LABS: Glucose Point of Care 302 mg/dl (65-105)
[2025-01-22 17:17] LABS: Toxigenic C. Diff NEGATIVE (NEGATIVE)
--- NOTE | 2025-01-22 18:13 | ECG_ITS ---
Test Date: 2025-01-22 18:27:40 Measurements Intervals [place] Rate: 63 P: 247 DE: 141 QRS: -69 QRSD: 135 T: 108 QT: 498 QTc: 510 Interpretive Statements SINUS RHYTHM WITH FIRST DEGREE AV BLOCK WITH OCCASIONAL SUPRAVENTRICULAR PREMATURE COMPLEXES RIGHT BUNDLE BRANCH BLOCK LEFT ANTERIOR FASCICULAR BLOCK LEFT VENTRICULAR HYPERTROPHY AND ST-T CHANGE BASELINE ARTIFACT- V2 ABNORMAL ECG Compared to ECG 01/20/2025 09:23:36 NO SIGNIFICANT CHANGE Electronically Signed On 01-22-2025 20:31:08 CDT by Betito Huber D.O.
[2025-01-22 18:53] LABS: Troponin I < 0.012 ng/mL (0.000-0.034)
[2025-01-22 19:53] VITALS: BP 149/69; PULSE 70; RESP 16; TEMP 36.5; O2SAT 98
--- NOTE | 2025-01-22 20:22 | PM.EVENT ---
Event Note Event Note Event Note: Patient complains of severe nausea with chest pain EKG with no acute [place] Patient believes it is heartburn, GI cocktail ordered with improvement KUB shows no acute finding Chest x-ray has pulmonary edema DC IV fluid
[2025-01-22] MEDS: TRIMETHOBENZAMIDE HCL 200 MG/2 ML VIAL IM (21:17)
[2025-01-22] MEDS: BELLADONNA ALK/PHENOB ELIX 10 ML, MAG HYDROX/ALUMINUM HYD/SIMETH 30 ML, LIDOCAINE 2% VI... PO (21:18)
[2025-01-22 22:16] LABS: Basophils Absolute Auto 0.1 K/mm3 (0.0-0.1); Basophils Percent Auto 0.5 % (0.2-1.2); Eosinophils Absolute Auto 0.2 K/mm3 (0-0.3); Eosinophils Percent Auto 1.9 % (0-4.4); Hematocrit 38.1 % (37.0-47.0); Hemoglobin 11.5 g/dL (12.0-15.0); Immature Granulocyte Absolute 0.08 K/mm3 (0.00-0.031); Immature Granulocyte Percent A 0.7 % (0-0.5); Lymphocytes Absolute Auto 1.78 K/mm3 (0.9-3.2); Lymphocytes Percent Auto 15.2 % (18.3-44.2); Mean Corpuscular HGB Conc 30.2 g/dl (32-36); Mean Corpuscular Hemoglobin 28.8 pg (26-34); Mean Corpuscular Volume 95.3 fl (80-100); Mean Platelet Volume 10.1 fl (7.4-10.4); Monocytes Absolute Auto 0.6 K/mm3 (0.1-0.6); Monocytes Percent Auto 5.1 % (2.6-8.5); Neutrophils Absolute Auto 8.9 K/mm3 (1.3-6.7); Neutrophils Percent Auto 76.6 % (45.5-73.1); Platelet Count Result 216 k/mm3 (150-375); Red Cell Distribution Width 13.2 % (11.5-14.5); White Blood Count 11.7 K/mm3 (4.5-10.0)
[2025-01-22 22:25] LABS: Anion Gap 11 mmol/L (4-12); Blood Urea Nitrogen 31 mg/dL (7-17); Calcium 9.6 mg/dL (8.4-10.2); Carbon Dioxide 16 mmol/L (22-30); Chloride 110 mmol/L (98-107); Estimated CRCL calculation 32 ml/min; Estimated Glomerular Filt Rate 18; Glucose 251 mg/dL (65-110); Potassium 4.3 mmol/L (3.4-5.0); Sodium 137 mmol/L (137-145)
[2025-01-22 22:37] LABS: Troponin I < 0.012 ng/mL (0.000-0.034)
[2025-01-22] MEDS: AMITRIPTYLINE HCL 25 MG TABLET 50 MG PO (22:42)
[2025-01-22] MEDS: PRAZOSIN HCL 1 MG CAPSULE 2 MG PO (22:43)
[2025-01-22] MEDS: SUCRALFATE 1 GM TABLET PO (22:43)
[2025-01-22] MEDS: ATORVASTATIN 10 MG TABLET 20 MG PO (22:43)
[2025-01-22] MEDS: traZODone HCL 50 MG TABLET PO (22:43)
[2025-01-22] MEDS: ZOLPIDEM TARTRATE (*CRX) 5 MG TABLET 10 MG PO (22:45)
[2025-01-22 22:48] LABS: Glucose Point of Care 144 mg/dl (65-105)
[2025-01-23] VITALS (12 sets, daily range): BP systolic 121–168; BP diastolic 61–78; PULSE 55–100; RESP 20; TEMP 36.2–36.6; O2SAT 95–98
[2025-01-23 02:25] LABS: Albumin Level 3.6 g/dL (3.5-5.1); Anion Gap 10 mmol/L (4-12); Blood Urea Nitrogen 29 mg/dL (7-17); Calcium 9.6 mg/dL (8.4-10.2); Carbon Dioxide 16 mmol/L (22-30); Chloride 113 mmol/L (98-107); Estimated CRCL calculation 32 ml/min; Estimated Glomerular Filt Rate 18; Glucose 194 mg/dL (65-110); Phosphorus 3.9 mg/dL (2.5-4.5); Potassium 4.4 mmol/L (3.4-5.0); Sodium 139 mmol/L (137-145)
[2025-01-23 02:37] LABS: Troponin I < 0.012 ng/mL (0.000-0.034)
[2025-01-23] MEDS: BELLADONNA ALK/PHENOB ELIX 10 ML, MAG HYDROX/ALUMINUM HYD/SIMETH 30 ML, LIDOCAINE 2% VI... PO (05:32)
[2025-01-23] MEDS: SUCRALFATE 1 GM TABLET PO ×2 (05:32→21:32)
[2025-01-23 07:49] LABS: Glucose Point of Care 157 mg/dl (65-105)
[2025-01-23] MEDS: SODIUM CHLORIDE 0.9% IV 1,000 ML 50 ML IV CONT (09:21)
[2025-01-23] MEDS: ENOXAPARIN 40 MG/0.4 ML SYRINGE SUB-Q (09:22)
[2025-01-23] MEDS: SERTRALINE HCL 50 MG TABLET 100 MG PO (09:22)
[2025-01-23] MEDS: ALPRAZolam (*CRX) 0.5 MG TABLET PO ×3 (09:23→17:35)
[2025-01-23] MEDS: PIOGLITAZONE HCL 15 MG TAB PO (09:23)
[2025-01-23] MEDS: LOSARTAN POTASSIUM 100 MG TABLET PO (09:23)
[2025-01-23] MEDS: ACYCLOVIR 400 MG TABLET PO (09:23)
[2025-01-23] MEDS: MECLIZINE HCL 12.5 MG TABLET PO ×3 (09:24→21:33)
[2025-01-23] MEDS: SODIUM BICARBONATE TAB 650 MG TABLET 1300 MG PO (09:24)
[2025-01-23] MEDS: amLODIPine BESYLATE 5 MG TABLET BY MOUTH (09:24)
[2025-01-23] MEDS: CHOLECALCIFEROL 5,000 UNITS TABLET 5000 UNITS PO (09:24)
[2025-01-23] MEDS: METOPROLOL SUCCINATE EXT REL 50 MG TABCR BY MOUTH (09:24)
[2025-01-23] MEDS: TOPIRAMATE 25 MG TABLET 50 MG PO (09:24)
[2025-01-23] MEDS: INSULIN GLARGINE (*BKC) 100 UNITS/ML 38 UNITS SUB-Q ×2 (09:25→21:34)
--- NOTE | 2025-01-23 10:06 | P.PNIM_ITS ---
Progress Note: A&P Assessment and Plan (1) Acute on chronic renal failure: Code(s): N17.9 - Acute kidney failure, unspecified; N18.9 - Chronic kidney disease, unspecified Status: Acute Assessment and Plan: From dehydration Cr 2.75 from 2.94 monitor (2) Dehydration: Code(s): E86.0 - Dehydration Status: Acute Assessment and Plan: continue gentle rehydration (3) Diarrhea: Code(s): R19.7 - Diarrhea, unspecified Status: Acute Assessment and Plan: C diff negative Stool culture pending Continue IVF and oral intake (4) Irritable bowel syndrome with constipation: Code(s): K58.1 - Irritable bowel syndrome with constipation Status: Acute Assessment and Plan: stool softeners, fiber gummies Lubiprostone (5) Insulin dependent diabetes mellitus: Status: Acute Assessment and Plan: Diabetic diet Accu-Cheks a.c. HS Lantus and actos reordered SSI (6) Hypertension: Code(s): I10 - Essential (primary) hypertension Status: Acute Assessment and Plan: Can restart antihypertensives and diuretics tomorrow Plan Apnea link ordered to screen for obstructive sleep apnea given prolonged fatigue. DVT prophylaxis on Sq Lovenox Subjective Date/time seen: 01/23/25 10:06 Interval history: Patient comfortable at bedside and noted that she had about 15 watery bowel movement overnight. IVF was stopped early last night due to pulm edema However given excessive diarrhea last night patient was started on NS @50cc/hr Review of Systems Review of Systems: 12 systems were reviewed and are negativ e except for as per HPI. Exam Narrative: General: well appearing, appears stated age. HEENT: normocephalic, atraumatic. Mucous membranes moist. EOMI, PERRLA, bilateral sclera anicteric, no conjunctival injection. Neck supple without JVD, lymphadenopathy, or bruit. Respiratory: clear to ascultation bilaterally. No rales/rhonic/wheezes. Cardiovascular: Regular rate and rhythm, normal S1-S2 upon ascultation. No murmurs, rubs, or clicks. PMI is nondisplaced, capillary refill less than 3 second. Abdomen: Soft, round, no pulsatile masses, nondistended and nontender. No rebound, no guarding. No CVA tenderness, no hepatosplenomegaly. Bowel sounds present to all four quadrants. No high pitch or tinkling sounds, resonant to percussion. Extremities: No cyanosis, clubbing, or edema present. Pulses are palpable 2/2. Active ROM to all four extremities. Neuro: Alert and orientated x 4. PERRLA. Cranial nerves 2-12 intact without focal deficit. Skin: Warm, dry, and intact, without rash, erythema, or lesion. Psych: pleasant, cooperative, normal speech, normal affect, no hallucinations, no dysarthia Objective Data Vital Signs Vital Signs: Vital Signs - 24 hr 01/22/25 13:49 01/22/25 19:53 01/22/25 20:00 Temperature 97.6 F 97.7 F Pulse Rate 71 70 Respiratory Rate 18 16 Blood Pressure 139/64 149/69 H Pulse Oximetry 98 98 Oxygen Delivery Room Air 01/23/25 00:00 01/23/25 04:00 01/23/25 05:10 Temperature 97.9 F Pulse Rate 64 89 96 Respiratory Rate 20 Blood Pressure 168/78 H Pulse Oximetry 95 Oxygen Delivery 01/23/25 09:24 Temperature Pulse Rate 92 Respiratory Rate Blood Pressure Pulse Oximetry Oxygen Delivery Intake/Output Intake/Output: Intake & Output 01/20/25 01/21/25 01/22/25 01/23/25 23:59 23:59 23:59 23:59 Intake Total 1360 2280 2445 100 Output Total 200 Balance 1360 2280 2245 100 Meds/Results Medications: Active Medications Generic Name Dose Route Start Last Admin Trade Name Freq PRN Reason Stop Dose Admin Acetaminophen 650 mg 01/20/25 13:52 01/22/25 13:45 Acetaminophen 325 Mg Tablet PO 650 mg Q6H PRN Administration Mild Pain (1-3) or Fever Acyclovir 400 mg 01/20/25 20:15 01/23/25 09:23 Acyclovir 400 Mg Tablet PO 400 mg BID [facility] Administration Alprazolam 0.5 mg 01/20/25 20:15 01/23/25 09:23 Alprazolam (*Crx) 0.5 Mg Tablet PO 0.5 mg TID [facility] Administration Amitriptyline HCl 50 mg 01/20/25 20:15 01/22/25 22:42 Amitriptyline Hcl 25 Mg Tablet PO 50 mg HS [facility] Administration Amlodipine Besylate 5 mg 01/21/25 09:00 01/23/25 09:24 Amlodipine Besylate 5 Mg Tablet BY MOUTH 5 mg DAILY [facility] Administration Atorvastatin Calcium 20 mg 01/20/25 20:15 01/22/25 22:43 Atorvastatin 10 Mg Tablet PO 20 mg QHS [facility] Administration Bumetanide 1 mg 01/22/25 09:00 01/22/25 09:25 Bumetanide 1 Mg Tablet PO 1 mg BID [facility] Administration Belladonna Alkaloids/ 0 ml 01/23/25 02:02 01/23/25 05:32 Phenobarbital 10 ml/ Al Hydrox PO 50 ml /Mg Hydrox/Simethicone 30 ml/ Q4H PRN Administration Lidocaine HCl 10 ml Heartburn Dextrose 12.5 gm 01/20/25 13:52 Dextrose 50% 25 Gm/50 Ml Syringe IV PUSH PRN PRN Hypoglycemia Protocol Dicyclomine HCl 20 mg 01/21/25 12:30 01/21/25 13:04 Dicyclomine Hcl 10 Mg Capsule PO 20 mg QID PRN Administration Abdominal Cramping Docusate Sodium 100 mg 01/21/25 09:00 01/23/25 09:23 Docusate Sodium 100 Mg Capsule PO Not Given DAILY [facility] Enoxaparin Sodium 40 mg 01/21/25 09:00 01/23/25 09:22 Enoxaparin 40 Mg/0.4 Ml Syringe SUB-Q 40 mg DAILY [facility] Administration Glucagon 1 mg 01/20/25 13:52 Glucagon For Inj 1 Mg Vial IM PRN PRN Hypoglycemia Protocol Glucose 15 gm 01/20/25 13:52 Glucose Oral Gel 15 Gm Of Glucse In 37.5 Gm Tube PO PRN PRN Hypoglycemia Protocol Dextrose 1,000 mls @ 100 mls/hr 01/20/25 13:52 Dextrose 5% 1,000 Ml IVPB PRN PRN Hypoglycemia Protocol Sodium Chloride 1,000 mls @ 50 mls/hr 01/23/25 08:15 01/23/25 09:21 Normal Saline Iv IV CONT 50 mls/hr .Q20H [facility] Administration Insulin Aspart 3 - 6 units 01/20/25 17:00 01/23/25 08:48 Insulin Aspart (*Bkc) 100 Units/Ml SUB-Q Not Given TIDWM [facility] Protocol Insulin Aspart 1 - 3 units 01/20/25 21:00 01/22/25 22:43 Insulin Aspart (*Bkc) 100 Units/Ml SUB-Q 2 units HS [facility] Administration Protocol Insulin Glargine 38 units 01/20/25 21:00 01/23/25 09:25 Insulin Glargine (*Bkc) 100 Units/Ml SUB-Q 38 units Q12HR [facility] Administration Losartan Potassium 100 mg 01/21/25 09:00 01/23/25 09:23 Losartan Potassium 100 Mg Tablet PO 100 mg DAILY [facility] Administration Lubiprostone 24 mcg 01/20/25 20:05 01/23/25 09:23 Lubiprostone 24 Mcg Capsule BY MOUTH Not Given BID [facility] Meclizine HCl 12.5 mg 01/21/25 17:00 01/23/25 09:24 Meclizine Hcl 12.5 Mg Tablet PO 12.5 mg QID [facility] Administration Metoprolol Succinate 50 mg 01/21/25 09:00 01/23/25 09:24 Metoprolol Succinate Ext Rel 50 Mg Tabcr BY MOUTH 50 mg DAILY [facility] Administration Ondansetron HCl 4 mg 01/20/25 12:30 01/22/25 13:13 Ondansetron Inj 4 Mg/2 Ml Vial IV PUSH 4 mg Q4H PRN Administration Nausea Pantoprazole Sodium 40 mg 01/20/25 20:04 01/21/25 09:25 Pantoprazole 40 Mg Tablet PO 40 mg DAILY PRN Administration Nausea Pioglitazone HCl 15 mg 01/21/25 09:00 01/23/25 09:23 Pioglitazone Hcl 15 Mg Tab PO 15 mg DAILY [facility] Administration Prazosin HCl 2 mg 01/20/25 21:00 01/22/25 22:43 Prazosin Hcl 1 Mg Capsule PO 2 mg HS [facility] Administration Sertraline HCl 100 mg 01/21/25 09:00 01/23/25 09:22 Sertraline Hcl 50 Mg Tablet PO 100 mg DAILY [facility] Administration Sodium Bicarbonate 1,300 mg 01/23/25 09:00 01/23/25 09:24 Sodium Bicarbonate Tab 650 Mg Tablet PO 01/25/25 17:01 1,300 mg BID [facility] Administration Spironolactone 25 mg 01/22/25 09:00 01/22/25 09:26 Spironolactone 25 Mg Tablet PO 25 mg DAILY [facility] Administration Sucralfate 1 gm 01/22/25 21:50 01/23/25 05:32 Sucralfate 1 Gm Tablet PO 1 gm ACHS [facility] Administration Topiramate 50 mg 01/20/25 20:15 01/23/25 09:24 Topiramate 25 Mg Tablet PO 50 mg BID [facility] Administration Trazodone HCl 50 mg 01/20/25 21:00 01/22/25 22:43 Trazodone Hcl 50 Mg Tablet PO 50 mg HS [facility] Administration Trimethobenzamide HCl 200 mg 01/22/25 20:22 01/22/25 21:17 Trimethobenzamide Hcl 200 Mg/2 Ml Vial IM 200 mg Q6H PRN Administration Nausea And Vomiting Vitamin D 5,000 units 01/21/25 09:00 01/23/25 09:24 Cholecalciferol 5,000 Units Tablet PO 5,000 units DAILY [facility] Administration Zolpidem Tartrate 10 mg 01/20/25 20:04 01/22/25 22:45 Zolpidem Tartrate (*Crx) 5 Mg Tablet PO 10 mg HS PRN Administration Insomnia Radiology Results: ITS Impressions Abdomen/Pelvis CT 01/20/25 10:15 IMPRESSION: Hepatosplenomegaly. Otherwise, no acute findings within the abdomen or pelvis, as detailed above. Chest X-Ray 01/22/25 18:44 IMPRESSION: Cardiomegaly with cardiac decompensation and pulmonary edema. Superimposed pneumonitis and underlying fibrotic changes are not excluded. Abdomen X-Ray 01/22/25 21:28 IMPRESSION: NO ACUTE ABDOMINAL FINDINGS. Labs Labs: Laboratory Results - last 24 hr 01/22/25 01/22/25 01/22/25 11:29 12:05 12:05 WBC RBC Hgb Hct MCV MCH MCHC RDW Plt Count MPV Immature Gran % (Auto) Neut % (Auto) Lymph % (Auto) [place] % (Auto) Eos % (Auto) Baso % (Auto) Lymph # (Auto) [place] # (Auto) Eos # (Auto) Baso # (Auto) Abs Immat Gran (auto) Absolute Neuts (auto) Absolute Nucleated RBC Nucleated RBC % Sodium Potassium Chloride Carbon Dioxide Anion Gap BUN Creatinine Estim Creat Clear Calc Estimated GFR Glucose POC Capillary Glucose 248 H Calcium Phosphorus Troponin I Albumin Urine Eosinophils None seen U Random Total Protein 534 Cancelled Ur Random Sodium 82 Ur Random Urea 455 Urine Total Volume Cancelled Urine Creatinine 73.0 Protein/Creat Ratio 2 C. difficile (PCR) 01/22/25 01/22/25 01/22/25 12:05 16:22 16:35 WBC RBC Hgb Hct MCV MCH MCHC RDW Plt Count MPV Immature Gran % (Auto) Neut % (Auto) Lymph % (Auto) [place] % (Auto) Eos % (Auto) Baso % (Auto) Lymph # (Auto) [place] # (Auto) Eos # (Auto) Baso # (Auto) Abs Immat Gran (auto) Absolute Neuts (auto) Absolute Nucleated RBC Nucleated RBC % Sodium Potassium Chloride Carbon Dioxide Anion Gap BUN Creatinine Estim Creat Clear Calc Estimated GFR Glucose POC Capillary Glucose 302 H Calcium Phosphorus Troponin I Albumin Urine Eosinophils U Random Total Protein Ur Random Sodium Ur Random Urea Urine Total Volume Urine Creatinine Cancelled Protein/Creat Ratio 2 7.32 H C. difficile (PCR) Negative 01/22/25 01/22/25 01/22/25 18:25 19:38 22:03 WBC 11.7 H RBC 4.00 L Hgb 11.5 L Hct 38.1 MCV 95.3 MCH 28.8 MCHC 30.2 L RDW 13.2 Plt Count 216 MPV 10.1 Immature Gran % (Auto) 0.7 H Neut % (Auto) 76.6 H Lymph % (Auto) 15.2 L [place] % (Auto) 5.1 Eos % (Auto) 1.9 Baso % (Auto) 0.5 Lymph # (Auto) 1.78 [place] # (Auto) 0.6 Eos # (Auto) 0.2 Baso # (Auto) 0.1 Abs Immat Gran (auto) 0.08 H Absolute Neuts (auto) 8.9 H Absolute Nucleated RBC 0.000 Nucleated RBC % 0.0 Sodium 137 Potassium 4.3 Chloride 110 H Carbon Dioxide 16 L Anion Gap 11 BUN 31 H Creatinine 2.75 H Estim Creat Clear Calc 32 Estimated GFR 18 L Glucose 251 H POC Capillary Glucose 144 H Calcium 9.6 Phosphorus Troponin I < 0.012 < 0.012 Albumin Urine Eosinophils U Random Total Protein Ur Random Sodium Ur Random Urea Urine Total Volume Urine Creatinine Protein/Creat Ratio 2 C. difficile (PCR) 01/23/25 01/23/25 02:09 07:37 WBC RBC Hgb Hct MCV MCH MCHC RDW Plt Count MPV Immature Gran % (Auto) Neut % (Auto) Lymph % (Auto) [place] % (Auto) Eos % (Auto) Baso % (Auto) Lymph # (Auto) [place] # (Auto) Eos # (Auto) Baso # (Auto) Abs Immat Gran (auto) Absolute Neuts (auto) Absolute Nucleated RBC Nucleated RBC % Sodium 139 Potassium 4.4 Chloride 113 H Carbon Dioxide 16 L Anion Gap 10 BUN 29 H Creatinine 2.75 H Estim Creat Clear Calc 32 Estimated GFR 18 L Glucose 194 H POC Capillary Glucose 157 H Calcium 9.6 Phosphorus 3.9 Troponin I < 0.012 Albumin 3.6 Urine Eosinophils U Random Total Protein Ur Random Sodium Ur Random Urea Urine Total Volume Urine Creatinine Protein/Creat Ratio 2 C. difficile (PCR) Quality VTE Prophylaxis VTE prophylaxis: pharmacologic ordered
--- NOTE | 2025-01-23 11:05 | P.PNNP_ITS ---
Progress Note: A&P Assessment and Plan (1) Acute kidney injury: Code(s): N17.9 - Acute kidney failure, unspecified Status: Acute Assessment and Plan: * as noted on admission (with a creatinine of 2.94mg/dl) * suspect due to prerenal factors (poor oral intake + diarrhea) along with continued use of diuretics prior to admission * improvement noted with IVF hydration and holding diuretics * will eventually need to restart diuretics given her propensity for fluid retention/edema (probably closer to discharge) * evaluation to date noted: * CT A/P without evidence of obstruction * UA noted * urine electrolytes non-prerenal * nephrotic range proteinuria * urine eosinophils negative * CPK low * given ongoing diarrhea - would continue to hold diuretic therapy * follow trend of repeat labs and UOP (2) Chronic kidney disease, stage IV (severe): Code(s): N18.4 - Chronic kidney disease, stage 4 (severe) Status: Chronic Assessment and Plan: * baseline creatinine runs ~ 2.0 - 2.5mg/dl in the last year * outpatient evaluation significant for normal renal ultrasound, negative serological profile, and nephrotic range proteinuria * CKD thought to be due to her previous bouts of LUKE/ARF along with diabetes, hypertension, and necessity of chronic diuretic therapy * diuretics are needed to keep swelling/edema (which is secondary to proteinuria) stable/controlled (3) Diarrhea: Code(s): R19.7 - Diarrhea, unspecified Status: Acute Assessment and Plan: * as noted by history * complicated by know history of irritable bowel syndrome * follow-up on stool studies * follow clinical symptoms (4) Metabolic acidosis: Code(s): E87.20 - Acidosis, unspecified Status: Acute Assessment and Plan: * presumably due to a LUKE and GI losses (diarrhea) as well as normal saline IVFs * attempt to compensate with sodium bicarbonate * follow trend of CO2 (5) Acute pulmonary edema: Code(s): J81.0 - Acute pulmonary edema Status: Acute Assessment and Plan: * as noted by CXR on 01/22... * no history of CHF documented * check Echo (6) Hypertension: Code(s): I10 - Essential (primary) hypertension Status: Acute Assessment and Plan: * reasonable control * on metoprolol, amlodipine, prazosin, and losartan * hold losartan given #1 * titrate amlodipine, metoprolol and prazosin as needed to compensate * follow trend of hemodynamics (7) Insulin dependent diabetes mellitus: Status: Chronic Assessment and Plan: * follow accu-cheks * glycemic control per hospitalist Will continue to follow. L Subjective Date/time seen: 01/23/25 11:05 Interval history: Follow-up for acute kidney injury/acute renal failure on chronic kidney disease. Events noted overnight -- significant nausea associated with chest discomfort thought to be related to heartburn due to improvement in symptoms with GI cocktail; EKG and KUB unremarkable but CXR with evidence of pulmonary edema so IVFs discontinued; however, still with significant diarrheat with 10 - 15 watery bowel movements overnight so IVFs restarted but at a lower rate; renal function/creatinine a bit worse today in comparison to yesterday (due to AM administration of diuretics yesterday?); no evidence of shortness of breath at the time of my visit. Exam 2 Narrative: General: WD/WN female in NAD Heart: normal S1 and S2; no rub Lungs: clear to auscultation Abdomen: soft, mild TTP, nondistended, positive bowel sounds Extremities: no cyanosis or clubbing; no edema Skin: no rash Objective Data Vital Signs Vital Signs: Vital Signs Temp Pulse Resp BP Pulse Ox O2 Del Method 01/23/25 09:24 92 01/23/25 09:23 Room Air 01/23/25 05:10 97.9 F 96 20 168/78 H 95 01/23/25 04:00 89 01/23/25 00:00 64 01/22/25 20:00 Room Air 01/22/25 19:53 97.7 F 70 16 149/69 H 98 Intake/Output Intake/Output: Intake & Output 01/20/25 01/21/25 01/22/25 01/23/25 23:59 23:59 23:59 23:59 Intake Total 1360 2280 2445 580 Output Total 200 Balance 1360 2280 2245 580 Meds/Results Medications: Active Medications Generic Name Dose Route Start Last Admin Trade Name Freq PRN Reason Stop Dose Admin Acetaminophen 650 mg 01/20/25 13:52 01/22/25 13:45 Acetaminophen 325 Mg Tablet PO 650 mg Q6H PRN Administration Mild Pain (1-3) or Fever Acyclovir 400 mg 01/20/25 20:15 01/23/25 09:23 Acyclovir 400 Mg Tablet PO 400 mg BID [facility] Administration Alprazolam 0.5 mg 01/20/25 20:15 01/23/25 13:59 Alprazolam (*Crx) 0.5 Mg Tablet PO 0.5 mg TID [facility] Administration Amitriptyline HCl 50 mg 01/20/25 20:15 01/22/25 22:42 Amitriptyline Hcl 25 Mg Tablet PO 50 mg HS [facility] Administration Amlodipine Besylate 5 mg 01/21/25 09:00 01/23/25 09:24 Amlodipine Besylate 5 Mg Tablet BY MOUTH 5 mg DAILY [facility] Administration Atorvastatin Calcium 20 mg 01/20/25 20:15 01/22/25 22:43 Atorvastatin 10 Mg Tablet PO 20 mg QHS [facility] Administration Bumetanide 1 mg 01/22/25 09:00 01/23/25 09:43 Bumetanide 1 Mg Tablet PO Not Given BID [facility] Belladonna Alkaloids/ 0 ml 01/23/25 02:02 01/23/25 05:32 Phenobarbital 10 ml/ Al Hydrox PO 50 ml /Mg Hydrox/Simethicone 30 ml/ Q4H PRN Administration Lidocaine HCl 10 ml Heartburn Dextrose 12.5 gm 01/20/25 13:52 Dextrose 50% 25 Gm/50 Ml Syringe IV PUSH PRN PRN Hypoglycemia Protocol Dicyclomine HCl 20 mg 01/21/25 12:30 01/21/25 13:04 Dicyclomine Hcl 10 Mg Capsule PO 20 mg QID PRN Administration Abdominal Cramping Docusate Sodium 100 mg 01/21/25 09:00 01/23/25 09:23 Docusate Sodium 100 Mg Capsule PO Not Given DAILY [facility] Enoxaparin Sodium 40 mg 01/21/25 09:00 01/23/25 09:22 Enoxaparin 40 Mg/0.4 Ml Syringe SUB-Q 40 mg DAILY [facility] Administration Glucagon 1 mg 01/20/25 13:52 Glucagon For Inj 1 Mg Vial IM PRN PRN Hypoglycemia Protocol Glucose 15 gm 01/20/25 13:52 Glucose Oral Gel 15 Gm Of Glucse In 37.5 Gm Tube PO PRN PRN Hypoglycemia Protocol Dextrose 1,000 mls @ 100 mls/hr 01/20/25 13:52 Dextrose 5% 1,000 Ml IVPB PRN PRN Hypoglycemia Protocol Sodium Chloride 1,000 mls @ 50 mls/hr 01/23/25 08:15 01/23/25 09:21 Normal Saline Iv IV CONT 50 mls/hr .Q20H [facility] Administration Insulin Aspart 3 - 6 units 01/20/25 17:00 01/23/25 12:20 Insulin Aspart (*Bkc) 100 Units/Ml SUB-Q Not Given TIDWM [facility] Protocol Insulin Aspart 1 - 3 units 01/20/25 21:00 01/22/25 22:43 Insulin Aspart (*Bkc) 100 Units/Ml SUB-Q 2 units HS [facility] Administration Protocol Insulin Glargine 38 units 01/20/25 21:00 01/23/25 09:25 Insulin Glargine (*Bkc) 100 Units/Ml SUB-Q 38 units Q12HR [facility] Administration Losartan Potassium 100 mg 01/21/25 09:00 01/23/25 09:23 Losartan Potassium 100 Mg Tablet PO 100 mg DAILY [facility] Administration Lubiprostone 24 mcg 01/20/25 20:05 01/23/25 09:23 Lubiprostone 24 Mcg Capsule BY MOUTH Not Given BID [facility] Meclizine HCl 12.5 mg 01/21/25 17:00 01/23/25 13:59 Meclizine Hcl 12.5 Mg Tablet PO 12.5 mg QID [facility] Administration Metoprolol Succinate 50 mg 01/21/25 09:00 01/23/25 09:24 Metoprolol Succinate Ext Rel 50 Mg Tabcr BY MOUTH 50 mg DAILY [facility] Administration Ondansetron HCl 4 mg 01/20/25 12:30 01/22/25 13:13 Ondansetron Inj 4 Mg/2 Ml Vial IV PUSH 4 mg Q4H PRN Administration Nausea Pantoprazole Sodium 40 mg 01/20/25 20:04 01/21/25 09:25 Pantoprazole 40 Mg Tablet PO 40 mg DAILY PRN Administration Nausea Perflutren Lipid Microsphere 0 ml 01/23/25 13:46 Perflutren Lipid Microspheres 1.5 Ml Vial Diluted To 10 Ml Total Volume IV PUSH 01/26/25 13:47 ONCE PRN adequate visualization Protocol Pioglitazone HCl 15 mg 01/21/25 09:00 01/23/25 09:23 Pioglitazone Hcl 15 Mg Tab PO 15 mg DAILY [facility] Administration Prazosin HCl 2 mg 01/20/25 21:00 01/22/25 22:43 Prazosin Hcl 1 Mg Capsule PO 2 mg HS [facility] Administration Sertraline HCl 100 mg 01/21/25 09:00 01/23/25 09:22 Sertraline Hcl 50 Mg Tablet PO 100 mg DAILY [facility] Administration Sodium Bicarbonate 1,300 mg 01/23/25 09:00 01/23/25 09:24 Sodium Bicarbonate Tab 650 Mg Tablet PO 01/25/25 17:01 1,300 mg BID [facility] Administration Spironolactone 25 mg 01/22/25 09:00 01/23/25 09:43 Spironolactone 25 Mg Tablet PO Not Given DAILY [facility] Sucralfate 1 gm 01/22/25 21:50 01/23/25 12:19 Sucralfate 1 Gm Tablet PO 1 gm ACHS [facility] Administration Topiramate 50 mg 01/20/25 20:15 01/23/25 09:24 Topiramate 25 Mg Tablet PO 50 mg BID [facility] Administration Trazodone HCl 50 mg 01/20/25 21:00 01/22/25 22:43 Trazodone Hcl 50 Mg Tablet PO 50 mg HS [facility] Administration Trimethobenzamide HCl 200 mg 01/22/25 20:22 01/22/25 21:17 Trimethobenzamide Hcl 200 Mg/2 Ml Vial IM 200 mg Q6H PRN Administration Nausea And Vomiting Vitamin D 5,000 units 01/21/25 09:00 01/23/25 09:24 Cholecalciferol 5,000 Units Tablet PO 5,000 units DAILY [facility] Administration Zolpidem Tartrate 10 mg 01/20/25 20:04 01/22/25 22:45 Zolpidem Tartrate (*Crx) 5 Mg Tablet PO 10 mg HS PRN Administration Insomnia Radiology Results: ITS Impressions Abdomen/Pelvis CT 01/20/25 10:15 IMPRESSION: Hepatosplenomegaly. Otherwise, no acute findings within the abdomen or pelvis, as detailed above. Chest X-Ray 01/22/25 18:44 IMPRESSION: Cardiomegaly with cardiac decompensation and pulmonary edema. Superimposed pneumonitis and underlying fibrotic changes are not excluded. Abdomen X-Ray 01/22/25 21:28 IMPRESSION: NO ACUTE ABDOMINAL FINDINGS. Labs Labs: Laboratory Tests 01/22/25 22:03 01/23/25 02:09 Glucose 194 H Calcium 9.6 Phosphorus 3.9 Troponin I < 0.012 Albumin 3.6
--- NOTE | 2025-01-23 11:11 | ECG_ITS ---
Test Date: 2025-01-23 11:41:21 Measurements Intervals [place] Rate: 81 P: 68 SD: 228 QRS: -69 QRSD: 138 T: 106 QT: 438 QTc: 511 Interpretive Statements SINUS RHYTHM WITH FIRST DEGREE AV BLOCK LEFT AXIS DEVIATION POSSIBLE LEFT ATRIAL ENLARGEMENT LEFT BUNDLE BRANCH BLOCK BASELINE ARTIFACT- V1-V2, V4-V6 ABNORMAL ECG Compared to ECG 01/22/2025 18:27:40 NO SIGNIFICANT CHANGE Electronically Signed On 01-23-2025 14:26:21 CDT by Betito Huber D.O.
[2025-01-23 11:54] LABS: Glucose Point of Care 190 mg/dl (65-105)
[2025-01-23 16:18] LABS: Glucose Point of Care 158 mg/dl (65-105)
--- NOTE | 2025-01-23 18:46 | PC.NURSE ---
Pt refused all of her evening meds except for her xanax because she wanted to sleep and her 11:30 carafate.
[2025-01-23] MEDS: ATORVASTATIN 10 MG TABLET 20 MG PO (21:33)
[2025-01-23] MEDS: PRAZOSIN HCL 1 MG CAPSULE 2 MG PO (21:33)
[2025-01-23] MEDS: AMITRIPTYLINE HCL 25 MG TABLET 50 MG PO (21:33)
[2025-01-24] VITALS (12 sets, daily range): BP systolic 145–161; BP diastolic 69–78; PULSE 75–94; RESP 16–20; TEMP 36.3–38; O2SAT 95–97
[2025-01-24] MEDS: BELLADONNA ALK/PHENOB ELIX 10 ML, MAG HYDROX/ALUMINUM HYD/SIMETH 30 ML, LIDOCAINE 2% VI... PO (04:28)
[2025-01-24 05:07] LABS: Glucose Point of Care 144 mg/dl (65-105)
[2025-01-24] MEDS: SUCRALFATE 1 GM TABLET PO ×4 (05:59→21:08)
[2025-01-24] MEDS: SODIUM CHLORIDE 0.9% IV 1,000 ML 50 ML IV CONT (06:00)
[2025-01-24 06:15] LABS: Basophils Percent Auto 0.3 % (0.2-1.2); Eosinophils Absolute Auto 0.2 K/mm3 (0-0.3); Eosinophils Percent Auto 1.5 % (0-4.4); Hematocrit 36.4 % (37.0-47.0); Hemoglobin 10.8 g/dL (12.0-15.0); Immature Granulocyte Absolute 0.08 K/mm3 (0.00-0.031); Immature Granulocyte Percent A 0.7 % (0-0.5); Lymphocytes Absolute Auto 1.34 K/mm3 (0.9-3.2); Lymphocytes Percent Auto 12.2 % (18.3-44.2); Mean Corpuscular HGB Conc 29.7 g/dl (32-36); Mean Corpuscular Hemoglobin 28.8 pg (26-34); Mean Corpuscular Volume 97.1 fl (80-100); Monocytes Absolute Auto 0.5 K/mm3 (0.1-0.6); Monocytes Percent Auto 4.3 % (2.6-8.5); Neutrophils Absolute Auto 8.9 K/mm3 (1.3-6.7); Platelet Count Result 181 k/mm3 (150-375); Red Blood Count 3.75 M/mm3 (4.2-5.4); Red Cell Distribution Width 13.4 % (11.5-14.5)
[2025-01-24 06:15] LABS: Glucose Point of Care 199 mg/dl (65-105)
[2025-01-24 06:30] LABS: Alanine Aminotransferase 12 U/L (6-35); Albumin Level 3.3 g/dL (3.5-5.1); Alkaline Phosphatase 105 U/L (38-126); Anion Gap 7 mmol/L (4-12); Aspartate Amino Transferase 13 U/L (14-36); Bilirubin,Total 0.3 mg/dL (0.2-1.3); Blood Urea Nitrogen 28 mg/dL (7-17); Calcium 9.5 mg/dL (8.4-10.2); Carbon Dioxide 19 mmol/L (22-30); Chloride 113 mmol/L (98-107); Estimated CRCL calculation 33 ml/min; Estimated Glomerular Filt Rate 19; Glucose 222 mg/dL (65-110); Magnesium 2.2 mg/dL (1.6-2.3); Phosphorus 2.9 mg/dL (2.5-4.5); Potassium 4.4 mmol/L (3.4-5.0); Sodium 139 mmol/L (137-145)
[2025-01-24 06:44] LABS: Platelet Estimate Adequate (Adequate); Schistocytes None Seen
[2025-01-24 07:54] LABS: Glucose Point of Care 185 mg/dl (65-105)
[2025-01-24] MEDS: PIOGLITAZONE HCL 15 MG TAB PO (09:32)
[2025-01-24] MEDS: SODIUM BICARBONATE TAB 650 MG TABLET 1300 MG PO ×2 (09:32→17:50)
[2025-01-24] MEDS: amLODIPine BESYLATE 5 MG TABLET BY MOUTH ×2 (09:32→17:51)
[2025-01-24] MEDS: TOPIRAMATE 25 MG TABLET 50 MG PO ×2 (09:32→17:51)
[2025-01-24] MEDS: CHOLECALCIFEROL 5,000 UNITS TABLET 5000 UNITS PO (09:33)
[2025-01-24] MEDS: SERTRALINE HCL 50 MG TABLET 100 MG PO (09:33)
[2025-01-24] MEDS: MECLIZINE HCL 12.5 MG TABLET PO ×4 (09:33→21:08)
[2025-01-24] MEDS: ALPRAZolam (*CRX) 0.5 MG TABLET PO ×3 (09:33→17:27)
[2025-01-24] MEDS: ACYCLOVIR 400 MG TABLET PO ×2 (09:34→17:51)
[2025-01-24] MEDS: METOPROLOL SUCCINATE EXT REL 50 MG TABCR BY MOUTH (09:34)
[2025-01-24] MEDS: INSULIN GLARGINE (*BKC) 100 UNITS/ML 38 UNITS SUB-Q ×2 (09:40→21:20)
[2025-01-24] MEDS: DICYCLOMINE HCL 10 MG CAPSULE 20 MG PO (09:40)
[2025-01-24] MEDS: ENOXAPARIN 40 MG/0.4 ML SYRINGE SUB-Q (09:43)
[2025-01-24 11:37] LABS: Glucose Point of Care 201 mg/dl (65-105)
--- NOTE | 2025-01-24 11:45 | P.PNIM_ITS ---
Progress Note: A&P Assessment and Plan (1) Acute on chronic renal failure: Code(s): N17.9 - Acute kidney failure, unspecified; N18.9 - Chronic kidney disease, unspecified Status: Acute Assessment and Plan: From dehydration Cr 2.66 from 2.94 continue IVF monitor (2) Dehydration: Code(s): E86.0 - Dehydration Status: Acute Assessment and Plan: continue gentle rehydration (3) Diarrhea: Code(s): R19.7 - Diarrhea, unspecified Status: Acute Assessment and Plan: C diff negative Stool culture pending Continue IVF and oral intake If stool culture is negative will start Antidiarrheal meds (4) Irritable bowel syndrome with constipation: Code(s): K58.1 - Irritable bowel syndrome with constipation Status: Acute Assessment and Plan: stool softeners, fiber gummies Lubiprostone (5) Insulin dependent diabetes mellitus: Status: Chronic Assessment and Plan: Diabetic diet Accu-Cheks a.c. HS Lantus and actos reordered SSI (6) Hypertension: Code(s): I10 - Essential (primary) hypertension Status: Acute Assessment and Plan: Can restart antihypertensives and diuretics tomorrow Plan DVT prophylaxis on Sq Lovenox Subjective Date/time seen: 01/24/25 11:45 Interval history: Comfortable at bedside, still having diarrhea Review of Systems 2 Review of Systems: 12 systems were reviewed and are negativ e except for as per HPI. Exam Narrative: General: well appearing, appears stated age. HEENT: normocephalic, atraumatic. Mucous membranes moist. EOMI, PERRLA, bilateral sclera anicteric, no conjunctival injection. Neck supple without JVD, lymphadenopathy, or bruit. Respiratory: clear to ascultation bilaterally. No rales/rhonic/wheezes. Cardiovascular: Regular rate and rhythm, normal S1-S2 upon ascultation. No murmurs, rubs, or clicks. PMI is nondisplaced, capillary refill less than 3 second. Abdomen: Soft, round, no pulsatile masses, nondistended and nontender. No rebound, no guarding. No CVA tenderness, no hepatosplenomegaly. Bowel sounds present to all four quadrants. No high pitch or tinkling sounds, resonant to percussion. Extremities: No cyanosis, clubbing, or edema present. Pulses are palpable 2/2. Active ROM to all four extremities. Neuro: Alert and orientated x 4. PERRLA. Cranial nerves 2-12 intact without focal deficit. Skin: Warm, dry, and intact, without rash, erythema, or lesion. Psych: pleasant, cooperative, normal speech, normal affect, no hallucinations, no dysarthia Objective Data Vital Signs Vital Signs: Vital Signs - 24 hr 01/23/25 12:00 01/23/25 14:00 01/23/25 16:00 Temperature 97.2 F L Pulse Rate 82 80 73 Respiratory Rate 20 Blood Pressure 149/76 H Pulse Oximetry 96 Oxygen Delivery Fraction of Inspired Oxygen 01/23/25 20:02 01/23/25 21:32 01/23/25 21:36 Temperature Pulse Rate 63 60 Respiratory Rate 20 Blood Pressure Pulse Oximetry 98 97 Oxygen Delivery Room Air Room Air Fraction of Inspired Oxygen 24 01/23/25 21:54 01/24/25 00:02 01/24/25 04:02 Temperature 97.5 F L Pulse Rate 55 L 75 94 Respiratory Rate 20 Blood Pressure 121/61 Pulse Oximetry 98 Oxygen Delivery Fraction of Inspired Oxygen 01/24/25 06:00 01/24/25 09:34 Temperature 97.4 F L Pulse Rate 89 90 Respiratory Rate 18 Blood Pressure 145/71 H Pulse Oximetry 97 Oxygen Delivery Fraction of Inspired Oxygen Intake/Output Intake/Output: Intake & Output 01/21/25 01/22/25 01/23/25 01/24/25 23:59 23:59 23:59 23:59 Intake Total 2280 2445 1130 1840 Output Total 200 Balance 2280 2245 1130 1840 Meds/Results Medications: Active Medications Generic Name Dose Route Start Last Admin Trade Name Freq PRN Reason Stop Dose Admin Acetaminophen 650 mg 01/20/25 13:52 01/22/25 13:45 Acetaminophen 325 Mg Tablet PO 650 mg Q6H PRN Administration Mild Pain (1-3) or Fever Acyclovir 400 mg 01/20/25 20:15 01/24/25 09:34 Acyclovir 400 Mg Tablet PO 400 mg BID [facility] Administration Alprazolam 0.5 mg 01/20/25 20:15 01/24/25 09:33 Alprazolam (*Crx) 0.5 Mg Tablet PO 0.5 mg TID [facility] Administration Amitriptyline HCl 50 mg 01/20/25 20:15 01/23/25 21:33 Amitriptyline Hcl 25 Mg Tablet PO 50 mg HS [facility] Administration Amlodipine Besylate 5 mg 01/23/25 17:00 01/24/25 09:32 Amlodipine Besylate 5 Mg Tablet BY MOUTH 5 mg BID [facility] Administration Atorvastatin Calcium 20 mg 01/20/25 20:15 01/23/25 21:33 Atorvastatin 10 Mg Tablet PO 20 mg QHS [facility] Administration Bumetanide 1 mg 01/22/25 09:00 01/23/25 09:43 Bumetanide 1 Mg Tablet PO Not Given BID [facility] Belladonna Alkaloids/ 0 ml 01/23/25 02:02 01/24/25 04:28 Phenobarbital 10 ml/ Al Hydrox PO 50 ml /Mg Hydrox/Simethicone 30 ml/ Q4H PRN Administration Lidocaine HCl 10 ml Heartburn Dextrose 12.5 gm 01/20/25 13:52 Dextrose 50% 25 Gm/50 Ml Syringe IV PUSH PRN PRN Hypoglycemia Protocol Dicyclomine HCl 20 mg 01/21/25 12:30 01/24/25 09:40 Dicyclomine Hcl 10 Mg Capsule PO 20 mg QID PRN Administration Abdominal Cramping Docusate Sodium 100 mg 01/21/25 09:00 01/24/25 09:32 Docusate Sodium 100 Mg Capsule PO Not Given DAILY [facility] Enoxaparin Sodium 40 mg 01/21/25 09:00 01/24/25 09:43 Enoxaparin 40 Mg/0.4 Ml Syringe SUB-Q 40 mg DAILY [facility] Administration Glucagon 1 mg 01/20/25 13:52 Glucagon For Inj 1 Mg Vial IM PRN PRN Hypoglycemia Protocol Glucose 15 gm 01/20/25 13:52 Glucose Oral Gel 15 Gm Of Glucse In 37.5 Gm Tube PO PRN PRN Hypoglycemia Protocol Dextrose 1,000 mls @ 100 mls/hr 01/20/25 13:52 Dextrose 5% 1,000 Ml IVPB PRN PRN Hypoglycemia Protocol Sodium Chloride 1,000 mls @ 50 mls/hr 01/23/25 08:15 01/24/25 06:00 Normal Saline Iv IV CONT 50 mls/hr .Q20H [facility] Administration Insulin Aspart 3 - 6 units 01/20/25 17:00 01/24/25 09:19 Insulin Aspart (*Bkc) 100 Units/Ml SUB-Q Not Given TIDWM [facility] Protocol Insulin Aspart 1 - 3 units 01/20/25 21:00 01/23/25 21:34 Insulin Aspart (*Bkc) 100 Units/Ml SUB-Q Not Given HS [facility] Protocol Insulin Glargine 38 units 01/20/25 21:00 01/24/25 09:40 Insulin Glargine (*Bkc) 100 Units/Ml SUB-Q 38 units Q12HR [facility] Administration Losartan Potassium 100 mg 01/21/25 09:00 01/23/25 09:23 Losartan Potassium 100 Mg Tablet PO 100 mg DAILY [facility] Administration Lubiprostone 24 mcg 01/20/25 20:05 01/24/25 09:33 Lubiprostone 24 Mcg Capsule BY MOUTH Not Given BID [facility] Meclizine HCl 12.5 mg 01/21/25 17:00 01/24/25 09:33 Meclizine Hcl 12.5 Mg Tablet PO 12.5 mg QID [facility] Administration Metoprolol Succinate 50 mg 01/21/25 09:00 01/24/25 09:34 Metoprolol Succinate Ext Rel 50 Mg Tabcr BY MOUTH 50 mg DAILY [facility] Administration Ondansetron HCl 4 mg 01/20/25 12:30 01/22/25 13:13 Ondansetron Inj 4 Mg/2 Ml Vial IV PUSH 4 mg Q4H PRN Administration Nausea Pantoprazole Sodium 40 mg 01/20/25 20:04 01/21/25 09:25 Pantoprazole 40 Mg Tablet PO 40 mg DAILY PRN Administration Nausea Perflutren Lipid Microsphere 0 ml 01/23/25 13:46 Perflutren Lipid Microspheres 1.5 Ml Vial Diluted To 10 Ml Total Volume IV PUSH 01/26/25 13:47 ONCE PRN adequate visualization Protocol Pioglitazone HCl 15 mg 01/21/25 09:00 01/24/25 09:32 Pioglitazone Hcl 15 Mg Tab PO 15 mg DAILY [facility] Administration Prazosin HCl 2 mg 01/20/25 21:00 01/23/25 21:33 Prazosin Hcl 1 Mg Capsule PO 2 mg HS [facility] Administration Sertraline HCl 100 mg 01/21/25 09:00 01/24/25 09:33 Sertraline Hcl 50 Mg Tablet PO 100 mg DAILY [facility] Administration Sodium Bicarbonate 1,300 mg 01/23/25 09:00 01/24/25 09:32 Sodium Bicarbonate Tab 650 Mg Tablet PO 01/25/25 17:01 1,300 mg BID [facility] Administration Spironolactone 25 mg 01/22/25 09:00 01/23/25 09:43 Spironolactone 25 Mg Tablet PO Not Given DAILY [facility] Sucralfate 1 gm 01/22/25 21:50 01/24/25 05:59 Sucralfate 1 Gm Tablet PO 1 gm ACHS [facility] Administration Topiramate 50 mg 01/20/25 20:15 01/24/25 09:32 Topiramate 25 Mg Tablet PO 50 mg BID [facility] Administration Trazodone HCl 50 mg 01/20/25 21:00 01/24/25 04:49 Trazodone Hcl 50 Mg Tablet PO Not Given HS [facility] Trimethobenzamide HCl 200 mg 01/22/25 20:22 01/22/25 21:17 Trimethobenzamide Hcl 200 Mg/2 Ml Vial IM 200 mg Q6H PRN Administration Nausea And Vomiting Vitamin D 5,000 units 01/21/25 09:00 01/24/25 09:33 Cholecalciferol 5,000 Units Tablet PO 5,000 units DAILY [facility] Administration Zolpidem Tartrate 10 mg 01/20/25 20:04 01/22/25 22:45 Zolpidem Tartrate (*Crx) 5 Mg Tablet PO 10 mg HS PRN Administration Insomnia Radiology Results: ITS Impressions Abdomen/Pelvis CT 01/20/25 10:15 IMPRESSION: Hepatosplenomegaly. Otherwise, no acute findings within the abdomen or pelvis, as detailed above. Chest X-Ray 01/22/25 18:44 IMPRESSION: Cardiomegaly with cardiac decompensation and pulmonary edema. Superimposed pneumonitis and underlying fibrotic changes are not excluded. Abdomen X-Ray 01/22/25 21:28 IMPRESSION: NO ACUTE ABDOMINAL FINDINGS. Renal Ultrasound 01/24/25 11:06 Impression: 1: Unremarkable renal ultrasound. No stones, masses or hydronephrosis. Labs Labs: Laboratory Results - last 24 hr 01/23/25 01/23/25 01/23/25 11:19 16:15 20:50 WBC RBC Hgb Hct MCV MCH MCHC RDW Plt Count MPV Immature Gran % (Auto) Neut % (Auto) Lymph % (Auto) [place] % (Auto) Eos % (Auto) Baso % (Auto) Lymph # (Auto) [place] # (Auto) Eos # (Auto) Baso # (Auto) Abs Immat Gran (auto) Absolute Neuts (auto) Absolute Nucleated RBC Band Neutrophils % Nucleated RBC % Platelet Estimate Schistocytes Sodium Potassium Chloride Carbon Dioxide Anion Gap BUN Creatinine Estim Creat Clear Calc Estimated GFR Glucose POC Capillary Glucose 190 H 158 H 144 H Calcium Phosphorus Magnesium Total Bilirubin AST ALT Alkaline Phosphatase Total Protein Albumin 01/24/25 01/24/25 01/24/25 05:57 06:10 07:51 WBC 11.0 H RBC 3.75 L Hgb 10.8 L Hct 36.4 L MCV 97.1 MCH 28.8 MCHC 29.7 L RDW 13.4 Plt Count 181 MPV 10.0 Immature Gran % (Auto) 0.7 H Neut % (Auto) 81.0 H Lymph % (Auto) 12.2 L [place] % (Auto) 4.3 Eos % (Auto) 1.5 Baso % (Auto) 0.3 Lymph # (Auto) 1.34 [place] # (Auto) 0.5 Eos # (Auto) 0.2 Baso # (Auto) 0.0 Abs Immat Gran (auto) 0.08 H Absolute Neuts (auto) 8.9 H Absolute Nucleated RBC 0.000 Band Neutrophils % Not Reportable Nucleated RBC % 0.0 Platelet Estimate Adequate Schistocytes None seen Sodium 139 Potassium 4.4 Chloride 113 H Carbon Dioxide 19 L Anion Gap 7 BUN 28 H Creatinine 2.66 H Estim Creat Clear Calc 33 Estimated GFR 19 L Glucose 222 H POC Capillary Glucose 199 H 185 H Calcium 9.5 Phosphorus 2.9 Magnesium 2.2 Total Bilirubin 0.3 AST 13 L ALT 12 Alkaline Phosphatase 105 Total Protein 6.0 L Albumin 3.3 L 01/24/25 11:34 WBC RBC Hgb Hct MCV MCH MCHC RDW Plt Count MPV Immature Gran % (Auto) Neut % (Auto) Lymph % (Auto) [place] % (Auto) Eos % (Auto) Baso % (Auto) Lymph # (Auto) [place] # (Auto) Eos # (Auto) Baso # (Auto) Abs Immat Gran (auto) Absolute Neuts (auto) Absolute Nucleated RBC Band Neutrophils % Nucleated RBC % Platelet Estimate Schistocytes Sodium Potassium Chloride Carbon Dioxide Anion Gap BUN Creatinine Estim Creat Clear Calc Estimated GFR Glucose POC Capillary Glucose 201 H Calcium Phosphorus Magnesium Total Bilirubin AST ALT Alkaline Phosphatase Total Protein Albumin Quality VTE Prophylaxis VTE prophylaxis: pharmacologic ordered
--- NOTE | 2025-01-24 11:56 | PM.PNNEP ---
Progress Note: A&P Assessment and Plan (1) Acute kidney injury: Code(s): N17.9 - Acute kidney failure, unspecified Status: Acute Assessment and Plan: as noted on admission (with a creatinine of 2.94mg/dl) suspect due to prerenal factors (poor oral intake + diarrhea) along with continued use of diuretics prior to admission improvement noted with IVF hydration and holding diuretics will eventually need to restart diuretics given her propensity for fluid retention/edema (probably closer to discharge) evaluation to date noted: CT A/P without evidence of obstruction renal ultrasound normal UA noted urine electrolytes non-prerenal nephrotic range proteinuria urine eosinophils negative CPK low given ongoing diarrhea - would continue to hold diuretic therapy follow trend of repeat labs and UOP (2) Chronic kidney disease, stage IV (severe): Code(s): N18.4 - Chronic kidney disease, stage 4 (severe) Status: Chronic Assessment and Plan: baseline creatinine runs ~ 2.0 - 2.5mg/dl in the last year outpatient evaluation significant for normal renal ultrasound, negative serological profile, and nephrotic range proteinuria CKD thought to be due to her previous bouts of LUKE/ARF along with diabetes, hypertension, and necessity of chronic diuretic therapy diuretics are needed to keep swelling/edema (which is secondary to proteinuria) stable/controlled (3) Diarrhea: Code(s): R19.7 - Diarrhea, unspecified Status: Acute Assessment and Plan: as noted by history complicated by know history of irritable bowel syndrome follow-up on stool studies follow clinical symptoms (4) Metabolic acidosis: Code(s): E87.20 - Acidosis, unspecified Status: Acute Assessment and Plan: better presumably due to a LUKE and GI losses (diarrhea) as well as normal saline IVFs attempt to compensate with sodium bicarbonate follow trend of CO2 (5) Acute pulmonary edema: Code(s): J81.0 - Acute pulmonary edema Status: Acute Assessment and Plan: as noted by CXR on 01/22... no history of CHF documented checking Echo (6) Hypertension: Code(s): I10 - Essential (primary) hypertension Status: Acute Assessment and Plan: reasonable control on metoprolol, amlodipine, and prazosin holding losartan given #1 titrate amlodipine, metoprolol and prazosin as needed to compensate follow trend of hemodynamics (7) Anemia: Code(s): D64.9 - Anemia, unspecified Status: Acute Assessment and Plan: due to LUKE, CKD, and dilutional effect from IVFs follow trend of H/H (8) Insulin dependent diabetes mellitus: Status: Chronic Assessment and Plan: follow accu-cheks glycemic control per hospitalist Will continue to follow. Subjective Date/time seen: 01/24/25 11:56 Interval history: Follow-up for acute kidney injury/acute renal failure on chronic kidney disease. Renal function/creatinine improving slowly with interventions/therapy to date; unfortunately, continues to have frequent bouts of diarrhea in the last 24 hours (but maybe a tad better overnight); no other acute issues/events overnight or earlier this morning. Exam Narrative: General: WD/WN female in NAD Heart: normal S1 and S2; no rub Lungs: clear to auscultation Abdomen: soft, mild TTP, nondistended, positive bowel sounds Extremities: no cyanosis or clubbing; no edema Skin: warm and dry Objective Data Vital Signs Vital Signs: Vital Signs Temp Pulse Resp BP Pulse Ox O2 Del Method FiO2 01/24/25 11:00 98.0 F 82 20 156/69 H 97 01/24/25 09:35 Room Air 01/24/25 09:34 90 01/24/25 06:00 97.4 F L 89 18 145/71 H 97 01/24/25 04:02 94 01/24/25 00:02 75 01/23/25 21:54 97.5 F L 55 L 20 121/61 98 01/23/25 21:36 60 20 97 Room Air 24 01/23/25 21:32 98 Room Air 01/23/25 20:02 63 Intake/Output Intake/Output: Intake & Output 01/21/25 01/22/25 01/23/25 01/24/25 23:59 23:59 23:59 23:59 Intake Total 2280 2445 1130 2080 Output Total 200 Balance 2280 2245 1130 2080 Meds/Results Medications: Active Medications Generic Name Dose Route Start Last Admin Trade Name Freq PRN Reason Stop Dose Admin Acetaminophen 650 mg 01/20/25 13:52 01/22/25 13:45 Acetaminophen 325 Mg Tablet PO 650 mg Q6H PRN Administration Mild Pain (1-3) or Fever Acyclovir 400 mg 01/20/25 20:15 01/24/25 09:34 Acyclovir 400 Mg Tablet PO 400 mg BID [facility] Administration Alprazolam 0.5 mg 01/20/25 20:15 01/24/25 11:58 Alprazolam (*Crx) 0.5 Mg Tablet PO 0.5 mg TID [facility] Administration Amitriptyline HCl 50 mg 01/20/25 20:15 01/23/25 21:33 Amitriptyline Hcl 25 Mg Tablet PO 50 mg HS [facility] Administration Amlodipine Besylate 5 mg 01/23/25 17:00 01/24/25 09:32 Amlodipine Besylate 5 Mg Tablet BY MOUTH 5 mg BID [facility] Administration Atorvastatin Calcium 20 mg 01/20/25 20:15 01/23/25 21:33 Atorvastatin 10 Mg Tablet PO 20 mg QHS [facility] Administration Bumetanide 1 mg 01/22/25 09:00 01/23/25 09:43 Bumetanide 1 Mg Tablet PO Not Given BID [facility] Belladonna Alkaloids/ 0 ml 01/23/25 02:02 01/24/25 04:28 Phenobarbital 10 ml/ Al Hydrox PO 50 ml /Mg Hydrox/Simethicone 30 ml/ Q4H PRN Administration Lidocaine HCl 10 ml Heartburn Dextrose 12.5 gm 01/20/25 13:52 Dextrose 50% 25 Gm/50 Ml Syringe IV PUSH PRN PRN Hypoglycemia Protocol Dicyclomine HCl 20 mg 01/21/25 12:30 01/24/25 09:40 Dicyclomine Hcl 10 Mg Capsule PO 20 mg QID PRN Administration Abdominal Cramping Docusate Sodium 100 mg 01/21/25 09:00 01/24/25 09:32 Docusate Sodium 100 Mg Capsule PO Not Given DAILY [facility] Enoxaparin Sodium 40 mg 01/21/25 09:00 01/24/25 09:43 Enoxaparin 40 Mg/0.4 Ml Syringe SUB-Q 40 mg DAILY [facility] Administration Glucagon 1 mg 01/20/25 13:52 Glucagon For Inj 1 Mg Vial IM PRN PRN Hypoglycemia Protocol Glucose 15 gm 01/20/25 13:52 Glucose Oral Gel 15 Gm Of Glucse In 37.5 Gm Tube PO PRN PRN Hypoglycemia Protocol Dextrose 1,000 mls @ 100 mls/hr 01/20/25 13:52 Dextrose 5% 1,000 Ml IVPB PRN PRN Hypoglycemia Protocol Sodium Chloride 1,000 mls @ 50 mls/hr 01/23/25 08:15 01/24/25 06:00 Normal Saline Iv IV CONT 50 mls/hr .Q20H [facility] Administration Insulin Aspart 3 - 6 units 01/20/25 17:00 01/24/25 11:57 Insulin Aspart (*Bkc) 100 Units/Ml SUB-Q 3 units TIDWM [facility] Administration Protocol Insulin Aspart 1 - 3 units 01/20/25 21:00 01/23/25 21:34 Insulin Aspart (*Bkc) 100 Units/Ml SUB-Q Not Given HS [facility] Protocol Insulin Glargine 38 units 01/20/25 21:00 01/24/25 09:40 Insulin Glargine (*Bkc) 100 Units/Ml SUB-Q 38 units Q12HR [facility] Administration Losartan Potassium 100 mg 01/21/25 09:00 01/23/25 09:23 Losartan Potassium 100 Mg Tablet PO 100 mg DAILY [facility] Administration Lubiprostone 24 mcg 01/20/25 20:05 01/24/25 09:33 Lubiprostone 24 Mcg Capsule BY MOUTH Not Given BID [facility] Meclizine HCl 12.5 mg 01/21/25 17:00 01/24/25 11:58 Meclizine Hcl 12.5 Mg Tablet PO 12.5 mg QID [facility] Administration Metoprolol Succinate 50 mg 01/21/25 09:00 01/24/25 09:34 Metoprolol Succinate Ext Rel 50 Mg Tabcr BY MOUTH 50 mg DAILY [facility] Administration Ondansetron HCl 4 mg 01/20/25 12:30 01/22/25 13:13 Ondansetron Inj 4 Mg/2 Ml Vial IV PUSH 4 mg Q4H PRN Administration Nausea Pantoprazole Sodium 40 mg 01/20/25 20:04 01/21/25 09:25 Pantoprazole 40 Mg Tablet PO 40 mg DAILY PRN Administration Nausea Perflutren Lipid Microsphere 0 ml 01/23/25 13:46 Perflutren Lipid Microspheres 1.5 Ml Vial Diluted To 10 Ml Total Volume IV PUSH 01/26/25 13:47 ONCE PRN adequate visualization Protocol Pioglitazone HCl 15 mg 01/21/25 09:00 01/24/25 09:32 Pioglitazone Hcl 15 Mg Tab PO 15 mg DAILY [facility] Administration Prazosin HCl 2 mg 01/20/25 21:00 01/23/25 21:33 Prazosin Hcl 1 Mg Capsule PO 2 mg HS [facility] Administration Sertraline HCl 100 mg 01/21/25 09:00 01/24/25 09:33 Sertraline Hcl 50 Mg Tablet PO 100 mg DAILY [facility] Administration Sodium Bicarbonate 1,300 mg 01/23/25 09:00 01/24/25 09:32 Sodium Bicarbonate Tab 650 Mg Tablet PO 01/25/25 17:01 1,300 mg BID [facility] Administration Spironolactone 25 mg 01/22/25 09:00 01/23/25 09:43 Spironolactone 25 Mg Tablet PO Not Given DAILY [facility] Sucralfate 1 gm 01/22/25 21:50 01/24/25 11:56 Sucralfate 1 Gm Tablet PO 1 gm ACHS [facility] Administration Topiramate 50 mg 01/20/25 20:15 01/24/25 09:32 Topiramate 25 Mg Tablet PO 50 mg BID [facility] Administration Trazodone HCl 50 mg 01/20/25 21:00 01/24/25 04:49 Trazodone Hcl 50 Mg Tablet PO Not Given HS [facility] Trimethobenzamide HCl 200 mg 01/22/25 20:22 01/22/25 21:17 Trimethobenzamide Hcl 200 Mg/2 Ml Vial IM 200 mg Q6H PRN Administration Nausea And Vomiting Vitamin D 5,000 units 01/21/25 09:00 01/24/25 09:33 Cholecalciferol 5,000 Units Tablet PO 5,000 units DAILY [facility] Administration Zolpidem Tartrate 10 mg 01/20/25 20:04 01/22/25 22:45 Zolpidem Tartrate (*Crx) 5 Mg Tablet PO 10 mg HS PRN Administration Insomnia Radiology Results: ITS Impressions Abdomen/Pelvis CT 01/20/25 10:15 IMPRESSION: Hepatosplenomegaly. Otherwise, no acute findings within the abdomen or pelvis, as detailed above. Chest X-Ray 01/22/25 18:44 IMPRESSION: Cardiomegaly with cardiac decompensation and pulmonary edema. Superimposed pneumonitis and underlying fibrotic changes are not excluded. Abdomen X-Ray 01/22/25 21:28 IMPRESSION: NO ACUTE ABDOMINAL FINDINGS. Renal Ultrasound 01/24/25 11:06 Impression: 1: Unremarkable renal ultrasound. No stones, masses or hydronephrosis. Labs Labs: Laboratory Tests 01/24/25 05:57 01/24/25 05:57 Calcium 9.5 Phosphorus 2.9 Magnesium 2.2 Total Bilirubin 0.3 AST 13 L ALT 12 Alkaline Phosphatase 105 Total Protein 6.0 L Albumin 3.3 L
[2025-01-24] MEDS: INSULIN ASPART (*BKC) 100 UNITS/ML SUB-Q (11:57)
[2025-01-24 16:52] LABS: Glucose Point of Care 138 mg/dl (65-105)
[2025-01-24] MEDS: AMITRIPTYLINE HCL 25 MG TABLET 50 MG PO (21:08)
[2025-01-24] MEDS: ATORVASTATIN 10 MG TABLET 20 MG PO (21:08)
[2025-01-24] MEDS: PRAZOSIN HCL 1 MG CAPSULE 2 MG PO (21:08)
[2025-01-24 21:56] LABS: Glucose Point of Care 180 mg/dl (65-105)
[2025-01-24] MEDS: ACETAMINOPHEN 325 MG TABLET 650 MG PO (22:10)
[2025-01-25] VITALS (13 sets, daily range): BP systolic 159–188; BP diastolic 78–84; PULSE 75–106; RESP 18–32; TEMP 36.9–37.7; O2SAT 87–99
--- NOTE | 2025-01-25 | ECHO_ITS ---
Patient Info Name: Jennifer Londono Age: 49 years : 1975 Gender: Female Ht: 68 in Wt: 291 lbs BSA: 2.58 m2 HR: 86 bpm BP: 161 / 78 mmHg Heart Rhythm: Sinus Rhythm Technical Quality: Fair Exam Date: 01/25/2025 2:38 PM Exam Location: Echo Lab Patient Status: Inpatient Admit Date: 01/23/2025 Staff Ordering Physician: Bernadine Grimaldo MD After [employer] Driver: Leandra Aguayo RDCS Attending Provider: Nancy Guido MD Referring Physician: Re FOWLER; Exam Type: CA echo dop color flow w con Study Info Indications - pulm edema, LE swelling Complete two-dimensional, color flow and Doppler transthoracic echocardiogram is performed with contrast to opacify the left ventricle and to improve the deliniation of the left ventricle endocardial borders. Contrast/Agitated Saline Contrast/Ag. Saline: Definity Amount: 2.00 ml Administered By: Leandra Aguayo RDCS Existing IV Access: Yes IV Access Condition: patent with no signs of infiltration Summary 1. Definity contrast administered improved wall motion interpretation. 2. Left ventricular chamber dimension is normal. 3. Left ventricular systolic function is normal, estimated at 65-70%. 4. There is mild concentric increased left ventricular wall thickness. 5. The left ventricular diastolic function is grade I diastolic dysfunction. 6. E/e' 12 is mildly elevated. 7. Left atrial chamber dimension is severely enlarged. 8. Right atrial chamber dimension is mildly enlarged. 9. There is mild aortic valve sclerosis. 10. The mitral valve has mildly calcified annulus. 11. There is small to moderate posteriorly located pericardial effusion and otherwise trace amount circumferentially. Left Ventricle E/e' 12 is mildly elevated. Definity contrast administered improved wall motion interpretation. Left ventricular chamber dimension is normal. Left ventricular systolic function is normal, estimated at 65-70%. There is mild concentric increased left ventricular wall thickness. The left ventricular diastolic function is grade I diastolic dysfunction. Right Ventricle Right ventricular systolic function is normal and with normal TAPSE 2.1 cm. Right ventricular chamber dimension is normal. Left Atria Left atrial chamber dimension is severely enlarged. Right Atria Right atrial chamber dimension is mildly enlarged. Aortic Valve The aortic valve is probable trileaflet. There is mild aortic valve sclerosis. There is no aortic valve stenosis. There is no aortic valve regurgitation. Pulmonic Valve There is no pulmonic regurgitation. Mitral Valve The mitral valve has mildly calcified annulus. There is no mitral valve stenosis. There is no mitral valve regurgitation. Tricuspid Valve There is no tricuspid valve regurgitation. Pericardium/Pleural There is small to moderate posteriorly located pericardial effusion and otherwise trace amount circumferentially. No cardiac tamponade. Inferior Vena Cava Normal inferior vena cava with >50% collapse upon inspiration consistent with normal right atrial pressure, 5 mmHg. Aorta The aortic root size at the sinus of Valsalva is normal. Left Ventricular Outflow Tract Name Value Normal LVOT 2D LVOT Diameter 2.24 cm LVOT Doppler LVOT Peak Gradient 7 mmHg LVOT Mean Gradient 4 mmHg LVOT VTI 23.04 cm LVOT VTI/AV VTI Ratio 0.93 LVOT Stroke Volume 90.85 ml LVOT CO 7.61 l/min LVOT CI 2.94 L/min/m2 Pulmonic Valve Name Value Normal RVOT Doppler RVOT Peak Gradient 3 mmHg PV Doppler PV Peak Gradient 5 mmHg Mitral Valve Name Value Normal MV Doppler MV Decel Dodge 486.15 cm/s2 MV PHT 0 s MV Area (PHT) 3.63 cm2 4.00-5.00 MV Diastolic Function MV E Peak Velocity 101.71 cm/s MV A Peak Velocity 114.60 cm/s MV E/A 0.89 MV Decel Time 0 s MV Annular TDI MV E/e' (Septal) 8.39 <=8.00 MV E/e' (Lateral) 22.67 <=8.00 MV E/e' (Average) 15.53 Tricuspid Valve Name Value Normal Estimated PAP/RSVP RA Pressure 5 mmHg <=5 Aorta Name Value Normal Ascending Aorta Ao Root Diameter (MM) 2.59 cm Ao Root Diam Index (MM) 1.00 cm/m2 Aortic Valve Name Value Normal AV Doppler AV Peak Velocity 151.86 cm/s AV Peak Gradient 9 mmHg AV Mean Gradient 5 mmHg AV VTI 24.79 cm AV Area (Cont Eq VTI) 3.67 cm2 >=3.00 AV Area (Cont Eq Larry) 3.41 cm2 AV Regurgitation 2D LVOT Area 3.94 cm2 Ventricles Name Value Normal LV Dimensions 2D/MM IVS Diastolic Thickness (2D) 1.12 cm 0.60-1.00 LVID Diastole (2D) 4.60 cm 3.80-5.20 LVIW Diastolic Thickness (2D) 1.16 cm 0.60-0.90 LVID Systole (2D) 3.18 cm 2.20-3.50 LVOT Diameter 2.24 cm LV Mass (2D Cubed) 191.40 g 67.00-162.00 LV Mass Index (2D Cubed) 0.01 g/cm2 0.00-0.01 Relative Wall Thickness (2D) 0.51 LV Fractional Shortening/Ejection Fraction 2D/MM LV Fractional Shortening (2D) 31 % 27-45 LV EF (2D Teicholz) 58 % 54-74 LV Diastolic Volume (4C MOD) 170.03 ml LV EF (4C MOD) 74 % LV Diastolic Volume (2C MOD) 91.81 ml LV EF (2C MOD) 74 % LV Diastolic Volume (BP MOD) 127.34 ml 46.00-106.00 LV Diastolic Volume Index (BP MOD) 0.05 l/m2 0.03-0.06 LV Systolic Volume (BP MOD) 31.99 ml 14.00-42.00 LV Systolic Volume Index (BP MOD) 0.01 l/m2 0.01-0.02 LV EF (BP MOD) 75 % 54-74 LV Diastolic Length (4C) 8.67 cm LV Systolic Length (4C) 7.48 cm LV Stroke Volume (4C MOD) 126.23 ml Atria Name Value Normal LA Dimensions LA Dimension (MM) 5.15 cm 2.70-3.80 LA Volume (4C A-L) 113.96 ml LA Volume (BP A-L) 123.57 ml RA Dimensions RA Area (4C) 19.76 cm2 <=18.00 Report Signatures
[2025-01-25] MEDS: BELLADONNA ALK/PHENOB ELIX 10 ML, MAG HYDROX/ALUMINUM HYD/SIMETH 30 ML, LIDOCAINE 2% VI... PO ×3 (00:13→21:57)
[2025-01-25] MEDS: traZODone HCL 50 MG TABLET PO ×2 (01:31→21:02)
[2025-01-25] MEDS: ZOLPIDEM TARTRATE (*CRX) 5 MG TABLET 10 MG PO ×2 (01:31→21:56)
[2025-01-25] MEDS: SUCRALFATE 1 GM TABLET PO ×4 (05:36→21:02)
[2025-01-25 05:46] LABS: Basophils Absolute Auto 0.1 K/mm3 (0.0-0.1); Basophils Percent Auto 0.5 % (0.2-1.2); Eosinophils Absolute Auto 0.2 K/mm3 (0-0.3); Eosinophils Percent Auto 1.9 % (0-4.4); Hemoglobin 10.5 g/dL (12.0-15.0); Immature Granulocyte Absolute 0.08 K/mm3 (0.00-0.031); Immature Granulocyte Percent A 0.8 % (0-0.5); Mean Corpuscular HGB Conc 30.9 g/dl (32-36); Mean Corpuscular Hemoglobin 28.8 pg (26-34); Mean Corpuscular Volume 93.2 fl (80-100); Mean Platelet Volume 9.7 fl (7.4-10.4); Monocytes Absolute Auto 0.6 K/mm3 (0.1-0.6); Monocytes Percent Auto 6.1 % (2.6-8.5); Neutrophils Absolute Auto 7.4 K/mm3 (1.3-6.7); Neutrophils Percent Auto 74.7 % (45.5-73.1); Platelet Count Result 181 k/mm3 (150-375); Red Blood Count 3.65 M/mm3 (4.2-5.4); Red Cell Distribution Width 13.3 % (11.5-14.5)
[2025-01-25 05:56] LABS: Alanine Aminotransferase 11 U/L (6-35); Albumin Level 3.3 g/dL (3.5-5.1); Alkaline Phosphatase 94 U/L (38-126); Anion Gap 8 mmol/L (4-12); Aspartate Amino Transferase 13 U/L (14-36); Bilirubin,Total 0.4 mg/dL (0.2-1.3); Blood Urea Nitrogen 25 mg/dL (7-17); Calcium 9.4 mg/dL (8.4-10.2); Carbon Dioxide 20 mmol/L (22-30); Chloride 111 mmol/L (98-107); Estimated CRCL calculation 36 ml/min; Estimated Glomerular Filt Rate 20; Glucose 163 mg/dL (65-110); Magnesium 2.2 mg/dL (1.6-2.3); Phosphorus 2.5 mg/dL (2.5-4.5); Potassium 3.9 mmol/L (3.4-5.0); Sodium 139 mmol/L (137-145)
[2025-01-25] MEDS: ACETAMINOPHEN 325 MG TABLET 650 MG PO ×3 (06:02→21:56)
[2025-01-25 06:03] LABS: Lactic Acid Reflex < 0.5 mmol/L (0.7-2.0)
[2025-01-25 06:37] LABS: Benzodiazepines Screen Urine Positive (Negative)
[2025-01-25 06:38] LABS: Amphetamine Screen Urine Negative (Negative); Cannabinoid Screen Urine Negative (Negative); Cocaine Screen Urine Negative (Negative); Methadone Screen Urine Negative (Negative); Opiate Screen Urine Negative (Negative); Phencyclidine Screen Urine Negative (Negative)
[2025-01-25 06:40] LABS: Barbiturate Screen Urine Positive (Negative)
[2025-01-25 08:29] LABS: Glucose Point of Care 141 mg/dl (65-105)
[2025-01-25] MEDS: INSULIN GLARGINE (*BKC) 100 UNITS/ML 38 UNITS SUB-Q ×2 (09:15→20:59)
[2025-01-25] MEDS: ENOXAPARIN 40 MG/0.4 ML SYRINGE SUB-Q (09:19)
[2025-01-25] MEDS: MECLIZINE HCL 25 MG TABLET PO ×4 (09:22→21:02)
[2025-01-25] MEDS: CHOLECALCIFEROL 5,000 UNITS TABLET 5000 UNITS PO (09:27)
[2025-01-25] MEDS: SERTRALINE HCL 50 MG TABLET 100 MG PO (09:27)
[2025-01-25] MEDS: SODIUM BICARBONATE TAB 650 MG TABLET 1300 MG PO ×2 (09:27→16:56)
[2025-01-25] MEDS: TOPIRAMATE 25 MG TABLET 50 MG PO ×2 (09:28→16:58)
[2025-01-25] MEDS: METOPROLOL SUCCINATE EXT REL 50 MG TABCR BY MOUTH (09:29)
[2025-01-25] MEDS: ALPRAZolam (*CRX) 0.5 MG TABLET PO ×3 (09:30→16:57)
[2025-01-25] MEDS: PIOGLITAZONE HCL 15 MG TAB PO (09:30)
[2025-01-25] MEDS: ACYCLOVIR 400 MG TABLET PO ×2 (09:30→16:57)
[2025-01-25] MEDS: amLODIPine BESYLATE 5 MG TABLET BY MOUTH ×2 (09:30→16:57)
--- NOTE | 2025-01-25 10:00 | P.PNNP_ITS ---
Progress Note: A&P Assessment and Plan (1) Acute kidney injury: Code(s): N17.9 - Acute kidney failure, unspecified Status: Acute Assessment and Plan: * as noted on admission (with a creatinine of 2.94mg/dl) * suspect due to prerenal factors (poor oral intake + diarrhea) along with continued use of diuretics prior to admission * improvement noted with IVF hydration and holding diuretics * will eventually need to restart diuretics given her propensity for fluid retention/edema (probably closer to discharge) * evaluation to date noted: * CT A/P without evidence of obstruction * renal ultrasound normal * UA noted * urine electrolytes non-prerenal * nephrotic range proteinuria * urine eosinophils negative * CPK low * given ongoing diarrhea - would continue to hold diuretic therapy for now * monitor volume status * follow trend of repeat labs and UOP (2) Chronic kidney disease, stage IV (severe): Code(s): N18.4 - Chronic kidney disease, stage 4 (severe) Status: Chronic Assessment and Plan: * baseline creatinine runs ~ 2.0 - 2.5mg/dl in the last year * outpatient evaluation significant for normal renal ultrasound, negative serological profile, and nephrotic range proteinuria * CKD thought to be due to her previous bouts of LUKE/ARF along with diabetes, hypertension, and necessity of chronic diuretic therapy * diuretics are needed to keep swelling/edema (which is secondary to proteinuria) stable/controlled (3) Diarrhea: Code(s): R19.7 - Diarrhea, unspecified Status: Acute Assessment and Plan: * as noted by history * complicated by know history of irritable bowel syndrome * follow-up on stool studies * C. diff toxin negative * follow clinical symptoms (4) Metabolic acidosis: Code(s): E87.20 - Acidosis, unspecified Status: Acute Assessment and Plan: * better * presumably due to a LUKE and GI losses (diarrhea) as well as normal saline IVFs * attempting to compensate with sodium bicarbonate * follow trend of CO2 (5) Acute pulmonary edema: Code(s): J81.0 - Acute pulmonary edema Status: Acute Assessment and Plan: * as noted by CXR on 01/22... * no history of CHF documented * checking Echo (6) Hypertension: Code(s): I10 - Essential (primary) hypertension Status: Acute Assessment and Plan: * reasonable control * on metoprolol, amlodipine, and prazosin * holding losartan given #1 * titrate amlodipine, metoprolol and prazosin as needed to compensate * follow trend of hemodynamics (7) Anemia: Code(s): D64.9 - Anemia, unspecified Status: Acute Assessment and Plan: * due to LUKE, CKD, and dilutional effect from IVFs * follow trend of H/H (8) Insulin dependent diabetes mellitus: Status: Chronic Assessment and Plan: * follow accu-cheks * glycemic control per hospitalist Will continue to follow. L Subjective Date/time seen: 01/25/25 10:00 Interval history: Follow-up for acute kidney injury/acute renal failure on chronic kidney disease. About to leave for CT scan of abdomen/pelvis -- renal function/creatinine slowly improving with current interventions/therapy; continues to have diarrhea although frequency seems to have lessened; low grade temperature overnight noted as well. Exam 2 Narrative: General: WD/WN female in NAD Heart: normal S1 and S2; no rub Lungs: clear to auscultation Abdomen: soft, mild TTP, nondistended, positive bowel sounds Extremities: no cyanosis or clubbing; no edema Skin: warm and intact Objective Data Vital Signs Vital Signs: Vital Signs Temp Pulse Resp BP Pulse Ox O2 Del Method 01/25/25 09:39 98.6 F 01/25/25 09:29 88 01/25/25 04:35 98.5 F 86 18 159/78 H 99 01/25/25 04:03 86 01/25/25 00:02 75 01/24/25 23:10 98.9 F 01/24/25 22:10 100.4 F H 01/24/25 21:52 100.4 F H 88 16 161/78 H 95 01/24/25 21:08 95 Room Air 01/24/25 16:00 92 01/24/25 14:00 98.0 F 82 20 156/69 H 97 01/24/25 12:00 91 Intake/Output Intake/Output: Intake & Output 01/22/25 01/23/25 01/24/25 01/25/25 23:59 23:59 23:59 23:59 Intake Total 2445 1130 2870 2040 Output Total 200 Balance 2245 1130 2870 2040 Meds/Results Medications: Active Medications Generic Name Dose Route Start Last Admin Trade Name Freq PRN Reason Stop Dose Admin Acetaminophen 650 mg 01/20/25 13:52 01/25/25 06:02 Acetaminophen 325 Mg Tablet PO 650 mg Q6H PRN Administration Mild Pain (1-3) or Fever Acyclovir 400 mg 01/20/25 20:15 01/25/25 09:30 Acyclovir 400 Mg Tablet PO 400 mg BID [facility] Administration Alprazolam 0.5 mg 01/20/25 20:15 01/25/25 09:30 Alprazolam (*Crx) 0.5 Mg Tablet PO 0.5 mg TID SANTH[facility] Administration Amitriptyline HCl 50 mg 01/20/25 20:15 01/24/25 21:08 Amitriptyline Hcl 25 Mg Tablet PO 50 mg HS [facility] Administration Amlodipine Besylate 5 mg 01/23/25 17:00 01/25/25 09:30 Amlodipine Besylate 5 Mg Tablet BY MOUTH 5 mg BID [facility]TH[facility] Administration Atorvastatin Calcium 20 mg 01/20/25 20:15 01/24/25 21:08 Atorvastatin 10 Mg Tablet PO 20 mg QHS [facility] Administration Bumetanide 1 mg 01/22/25 09:00 01/23/25 09:43 Bumetanide 1 Mg Tablet PO Not Given BID [facility] Belladonna Alkaloids/ 0 ml 01/23/25 02:02 01/25/25 00:13 Phenobarbital 10 ml/ Al Hydrox PO 50 ml /Mg Hydrox/Simethicone 30 ml/ Q4H PRN Administration Lidocaine HCl 10 ml Heartburn Dextrose 12.5 gm 01/20/25 13:52 Dextrose 50% 25 Gm/50 Ml Syringe IV PUSH PRN PRN Hypoglycemia Protocol Dicyclomine HCl 20 mg 01/21/25 12:30 01/24/25 09:40 Dicyclomine Hcl 10 Mg Capsule PO 20 mg QID PRN Administration Abdominal Cramping Docusate Sodium 100 mg 01/21/25 09:00 01/24/25 09:32 Docusate Sodium 100 Mg Capsule PO Not Given DAILY [facility] Enoxaparin Sodium 40 mg 01/21/25 09:00 01/25/25 09:19 Enoxaparin 40 Mg/0.4 Ml Syringe SUB-Q 40 mg DAILY [facility] Administration Glucagon 1 mg 01/20/25 13:52 Glucagon For Inj 1 Mg Vial IM PRN PRN Hypoglycemia Protocol Glucose 15 gm 01/20/25 13:52 Glucose Oral Gel 15 Gm Of Glucse In 37.5 Gm Tube PO PRN PRN Hypoglycemia Protocol Dextrose 1,000 mls @ 100 mls/hr 01/20/25 13:52 Dextrose 5% 1,000 Ml IVPB PRN PRN Hypoglycemia Protocol Sodium Chloride 1,000 mls @ 50 mls/hr 01/23/25 08:15 01/25/25 11:26 Normal Saline Iv IV CONT 50 mls/hr .Q20H [facility] Administration Insulin Aspart 3 - 6 units 01/20/25 17:00 01/25/25 09:11 Insulin Aspart (*Bkc) 100 Units/Ml SUB-Q Not Given TIDWM [facility] Protocol Insulin Aspart 1 - 3 units 01/20/25 21:00 01/24/25 21:19 Insulin Aspart (*Bkc) 100 Units/Ml SUB-Q Not Given HS [facility] Protocol Insulin Glargine 38 units 01/20/25 21:00 01/25/25 09:15 Insulin Glargine (*Bkc) 100 Units/Ml SUB-Q 38 units Q12HR [facility] Administration Losartan Potassium 100 mg 01/21/25 09:00 01/23/25 09:23 Losartan Potassium 100 Mg Tablet PO 100 mg DAILY [facility] Administration Lubiprostone 24 mcg 01/20/25 20:05 01/25/25 09:29 Lubiprostone 24 Mcg Capsule BY MOUTH Not Given BID [facility] Meclizine HCl 25 mg 01/25/25 09:00 01/25/25 09:22 Meclizine Hcl 25 Mg Tablet PO 25 mg QID [facility] Administration Metoprolol Succinate 50 mg 01/21/25 09:00 01/25/25 09:29 Metoprolol Succinate Ext Rel 50 Mg Tabcr BY MOUTH 50 mg DAILY [facility] Administration Ondansetron HCl 4 mg 01/20/25 12:30 01/22/25 13:13 Ondansetron Inj 4 Mg/2 Ml Vial IV PUSH 4 mg Q4H PRN Administration Nausea Pantoprazole Sodium 40 mg 01/20/25 20:04 01/21/25 09:25 Pantoprazole 40 Mg Tablet PO 40 mg DAILY PRN Administration Nausea Perflutren Lipid Microsphere 0 ml 01/23/25 13:46 Perflutren Lipid Microspheres 1.5 Ml Vial Diluted To 10 Ml Total Volume IV PUSH 01/26/25 13:47 ONCE PRN adequate visualization Protocol Pioglitazone HCl 15 mg 01/21/25 09:00 01/25/25 09:30 Pioglitazone Hcl 15 Mg Tab PO 15 mg DAILY [facility] Administration Prazosin HCl 2 mg 01/20/25 21:00 01/24/25 21:08 Prazosin Hcl 1 Mg Capsule PO 2 mg HS [facility] Administration Sertraline HCl 100 mg 01/21/25 09:00 01/25/25 09:27 Sertraline Hcl 50 Mg Tablet PO 100 mg DAILY [facility] Administration Sodium Bicarbonate 1,300 mg 01/23/25 09:00 01/25/25 09:27 Sodium Bicarbonate Tab 650 Mg Tablet PO 01/25/25 17:01 1,300 mg BID [facility] Administration Spironolactone 25 mg 01/22/25 09:00 01/23/25 09:43 Spironolactone 25 Mg Tablet PO Not Given DAILY [facility] Sucralfate 1 gm 01/22/25 21:50 01/25/25 11:23 Sucralfate 1 Gm Tablet PO 1 gm ACHS [facility] Administration Topiramate 50 mg 01/20/25 20:15 01/25/25 09:28 Topiramate 25 Mg Tablet PO 50 mg BID [facility] Administration Trazodone HCl 50 mg 01/20/25 21:00 01/25/25 01:31 Trazodone Hcl 50 Mg Tablet PO 50 mg HS [facility] Administration Trimethobenzamide HCl 200 mg 01/22/25 20:22 01/22/25 21:17 Trimethobenzamide Hcl 200 Mg/2 Ml Vial IM 200 mg Q6H PRN Administration Nausea And Vomiting Vitamin D 5,000 units 01/21/25 09:00 01/25/25 09:27 Cholecalciferol 5,000 Units Tablet PO 5,000 units DAILY [facility] Administration Zolpidem Tartrate 10 mg 01/20/25 20:04 01/25/25 01:31 Zolpidem Tartrate (*Crx) 5 Mg Tablet PO 10 mg HS PRN Administration Insomnia Radiology Results: ITS Impressions Chest X-Ray 01/22/25 18:44 IMPRESSION: Cardiomegaly with cardiac decompensation and pulmonary edema. Superimposed pneumonitis and underlying fibrotic changes are not excluded. Abdomen X-Ray 01/22/25 21:28 IMPRESSION: NO ACUTE ABDOMINAL FINDINGS. Renal Ultrasound 01/24/25 11:06 Impression: 1: Unremarkable renal ultrasound. No stones, masses or hydronephrosis. Abdomen/Pelvis CT 01/25/25 11:18 Impression: No acute abnormality seen. Labs Labs: Laboratory Tests 01/25/25 05:39 01/25/25 05:39 Calcium 9.4 Phosphorus 2.5 Magnesium 2.2 Total Bilirubin 0.4 AST 13 L ALT 11 Alkaline Phosphatase 94 Total Protein 7.0 Albumin 3.3 L
[2025-01-25] MEDS: SODIUM CHLORIDE 0.9% IV 1,000 ML 50 ML IV CONT (11:26)
[2025-01-25 12:04] LABS: Glucose Point of Care 124 mg/dl (65-105)
[2025-01-25] MEDS: ONDANSETRON INJ 4 MG/2 ML VIAL IV PUSH ×2 (12:42→18:36)
--- NOTE | 2025-01-25 13:34 | P.PNIM_ITS ---
Progress Note: A&P Assessment and Plan (1) Acute on chronic renal failure: Code(s): N17.9 - Acute kidney failure, unspecified; N18.9 - Chronic kidney disease, unspecified Status: Acute Assessment and Plan: From dehydration Cr 2.53 from 2.94 continue IVF monitor (2) Dehydration: Code(s): E86.0 - Dehydration Status: Acute Assessment and Plan: continue gentle rehydration (3) Diarrhea: Code(s): R19.7 - Diarrhea, unspecified Status: Acute Assessment and Plan: C diff negative Stool culture pending Continue IVF and oral intake Will start Loperamide if stool culture is negative patient had fever yesterday but not in sepsis as at today's eval will continue to hold abx unless she develops sepsis CT AP no acute changes Contineu monitoring stool cultures (4) Irritable bowel syndrome with constipation: Code(s): K58.1 - Irritable bowel syndrome with constipation Status: Acute Assessment and Plan: Lubiprostone on hold (5) Insulin dependent diabetes mellitus: Status: Chronic Assessment and Plan: Diabetic diet Accu-Cheks a.c. HS Lantus and actos reordered SSI (6) Hypertension: Code(s): I10 - Essential (primary) hypertension Status: Acute Assessment and Plan: Can restart antihypertensives and diuretics tomorrow Plan DVT prophylaxis on Sq Lovenox Subjective Date/time seen: 01/25/25 13:34 Interval history: Patient noted diarrhea improved with low oral intake she had fever yesterday with temperature of 100.4 Awaiting stool culture Review of Systems Review of Systems: 12 systems were reviewed and are negativ e except for as per HPI. Exam Narrative: General: well appearing, appears stated age. HEENT: normocephalic, atraumatic. Mucous membranes moist. EOMI, PERRLA, bilateral sclera anicteric, no conjunctival injection. Neck supple without JVD, lymphadenopathy, or bruit. Respiratory: clear to ascultation bilaterally. No rales/rhonic/wheezes. Cardiovascular: Regular rate and rhythm, normal S1-S2 upon ascultation. No murmurs, rubs, or clicks. PMI is nondisplaced, capillary refill less than 3 second. Abdomen: Soft, round, no pulsatile masses, nondistended and nontender. No rebound, no guarding. No CVA tenderness, no hepatosplenomegaly. Bowel sounds present to all four quadrants. No high pitch or tinkling sounds, resonant to percussion. Extremities: No cyanosis, clubbing, or edema present. Pulses are palpable 2/2. Active ROM to all four extremities. Neuro: Alert and orientated x 4. PERRLA. Cranial nerves 2-12 intact without focal deficit. Skin: Warm, dry, and intact, without rash, erythema, or lesion. Psych: pleasant, cooperative, normal speech, normal affect, no hallucinations, no dysarthia Objective Data Vital Signs Vital Signs: Vital Signs - 24 hr 01/24/25 14:00 01/24/25 16:00 01/24/25 21:08 Temperature 98.0 F Pulse Rate 82 92 Respiratory Rate 20 Blood Pressure 156/69 H Pulse Oximetry 97 95 Oxygen Delivery Room Air 01/24/25 21:52 01/24/25 22:10 01/24/25 23:10 Temperature 100.4 F H 100.4 F H 98.9 F Pulse Rate 88 Respiratory Rate 16 Blood Pressure 161/78 H Pulse Oximetry 95 Oxygen Delivery 01/25/25 00:02 01/25/25 04:03 01/25/25 04:35 Temperature 98.5 F Pulse Rate 75 86 86 Respiratory Rate 18 Blood Pressure 159/78 H Pulse Oximetry 99 Oxygen Delivery 01/25/25 09:29 01/25/25 09:39 01/25/25 11:41 Temperature 98.6 F 99.8 F H Pulse Rate 88 Respiratory Rate Blood Pressure Pulse Oximetry Oxygen Delivery Intake/Output Intake/Output: Intake & Output 01/22/25 01/23/25 01/24/25 01/25/25 23:59 23:59 23:59 23:59 Intake Total 2445 1130 2870 2040 Output Total 200 Balance 2245 1130 2870 2040 Meds/Results Medications: Active Medications Generic Name Dose Route Start Last Admin Trade Name Freq PRN Reason Stop Dose Admin Acetaminophen 650 mg 01/20/25 13:52 01/25/25 11:32 Acetaminophen 325 Mg Tablet PO 650 mg Q6H PRN Administration Mild Pain (1-3) or Fever Acyclovir 400 mg 01/20/25 20:15 01/25/25 09:30 Acyclovir 400 Mg Tablet PO 400 mg BID [facility] Administration Alprazolam 0.5 mg 01/20/25 20:15 01/25/25 12:21 Alprazolam (*Crx) 0.5 Mg Tablet PO 0.5 mg TID [facility] Administration Amitriptyline HCl 50 mg 01/20/25 20:15 01/24/25 21:08 Amitriptyline Hcl 25 Mg Tablet PO 50 mg HS [facility] Administration Amlodipine Besylate 5 mg 01/23/25 17:00 01/25/25 09:30 Amlodipine Besylate 5 Mg Tablet BY MOUTH 5 mg BID [facility] Administration Atorvastatin Calcium 20 mg 01/20/25 20:15 01/24/25 21:08 Atorvastatin 10 Mg Tablet PO 20 mg QHS [facility] Administration Bumetanide 1 mg 01/22/25 09:00 01/23/25 09:43 Bumetanide 1 Mg Tablet PO Not Given BID [facility] Belladonna Alkaloids/ 0 ml 01/23/25 02:02 01/25/25 00:13 Phenobarbital 10 ml/ Al Hydrox PO 50 ml /Mg Hydrox/Simethicone 30 ml/ Q4H PRN Administration Lidocaine HCl 10 ml Heartburn Dextrose 12.5 gm 01/20/25 13:52 Dextrose 50% 25 Gm/50 Ml Syringe IV PUSH PRN PRN Hypoglycemia Protocol Dicyclomine HCl 20 mg 01/21/25 12:30 01/24/25 09:40 Dicyclomine Hcl 10 Mg Capsule PO 20 mg QID PRN Administration Abdominal Cramping Docusate Sodium 100 mg 01/21/25 09:00 01/24/25 09:32 Docusate Sodium 100 Mg Capsule PO Not Given DAILY [facility] Enoxaparin Sodium 40 mg 01/21/25 09:00 01/25/25 09:19 Enoxaparin 40 Mg/0.4 Ml Syringe SUB-Q 40 mg DAILY [facility] Administration Glucagon 1 mg 01/20/25 13:52 Glucagon For Inj 1 Mg Vial IM PRN PRN Hypoglycemia Protocol Glucose 15 gm 01/20/25 13:52 Glucose Oral Gel 15 Gm Of Glucse In 37.5 Gm Tube PO PRN PRN Hypoglycemia Protocol Dextrose 1,000 mls @ 100 mls/hr 01/20/25 13:52 Dextrose 5% 1,000 Ml IVPB PRN PRN Hypoglycemia Protocol Sodium Chloride 1,000 mls @ 50 mls/hr 01/23/25 08:15 01/25/25 11:26 Normal Saline Iv IV CONT 50 mls/hr .Q20H [facility] Administration Insulin Aspart 3 - 6 units 01/20/25 17:00 01/25/25 12:06 Insulin Aspart (*Bkc) 100 Units/Ml SUB-Q Not Given TIDWM [facility] Protocol Insulin Aspart 1 - 3 units 01/20/25 21:00 01/24/25 21:19 Insulin Aspart (*Bkc) 100 Units/Ml SUB-Q Not Given HS [facility] Protocol Insulin Glargine 38 units 01/20/25 21:00 01/25/25 09:15 Insulin Glargine (*Bkc) 100 Units/Ml SUB-Q 38 units Q12HR [facility] Administration Losartan Potassium 100 mg 01/21/25 09:00 01/23/25 09:23 Losartan Potassium 100 Mg Tablet PO 100 mg DAILY [facility] Administration Lubiprostone 24 mcg 01/20/25 20:05 01/25/25 09:29 Lubiprostone 24 Mcg Capsule BY MOUTH Not Given BID [facility] Meclizine HCl 25 mg 01/25/25 09:00 01/25/25 12:21 Meclizine Hcl 25 Mg Tablet PO 25 mg QID [facility] Administration Metoprolol Succinate 50 mg 01/21/25 09:00 01/25/25 09:29 Metoprolol Succinate Ext Rel 50 Mg Tabcr BY MOUTH 50 mg DAILY [facility] Administration Ondansetron HCl 4 mg 01/20/25 12:30 01/25/25 12:42 Ondansetron Inj 4 Mg/2 Ml Vial IV PUSH 4 mg Q4H PRN Administration Nausea Pantoprazole Sodium 40 mg 01/20/25 20:04 01/21/25 09:25 Pantoprazole 40 Mg Tablet PO 40 mg DAILY PRN Administration Nausea Perflutren Lipid Microsphere 0 ml 01/23/25 13:46 Perflutren Lipid Microspheres 1.5 Ml Vial Diluted To 10 Ml Total Volume IV PUSH 01/26/25 13:47 ONCE PRN adequate visualization Protocol Pioglitazone HCl 15 mg 01/21/25 09:00 01/25/25 09:30 Pioglitazone Hcl 15 Mg Tab PO 15 mg DAILY [facility] Administration Prazosin HCl 2 mg 01/20/25 21:00 01/24/25 21:08 Prazosin Hcl 1 Mg Capsule PO 2 mg HS [facility] Administration Sertraline HCl 100 mg 01/21/25 09:00 01/25/25 09:27 Sertraline Hcl 50 Mg Tablet PO 100 mg DAILY [facility] Administration Sodium Bicarbonate 1,300 mg 01/23/25 09:00 01/25/25 09:27 Sodium Bicarbonate Tab 650 Mg Tablet PO 01/25/25 17:01 1,300 mg BID [facility] Administration Spironolactone 25 mg 01/22/25 09:00 01/23/25 09:43 Spironolactone 25 Mg Tablet PO Not Given DAILY [facility] Sucralfate 1 gm 01/22/25 21:50 01/25/25 11:23 Sucralfate 1 Gm Tablet PO 1 gm ACHS [facility] Administration Topiramate 50 mg 01/20/25 20:15 01/25/25 09:28 Topiramate 25 Mg Tablet PO 50 mg BID [facility] Administration Trazodone HCl 50 mg 01/20/25 21:00 01/25/25 01:31 Trazodone Hcl 50 Mg Tablet PO 50 mg HS [facility] Administration Trimethobenzamide HCl 200 mg 01/22/25 20:22 01/22/25 21:17 Trimethobenzamide Hcl 200 Mg/2 Ml Vial IM 200 mg Q6H PRN Administration Nausea And Vomiting Vitamin D 5,000 units 01/21/25 09:00 01/25/25 09:27 Cholecalciferol 5,000 Units Tablet PO 5,000 units DAILY [facility] Administration Zolpidem Tartrate 10 mg 01/20/25 20:04 01/25/25 01:31 Zolpidem Tartrate (*Crx) 5 Mg Tablet PO 10 mg HS PRN Administration Insomnia Radiology Results: ITS Impressions Chest X-Ray 01/22/25 18:44 IMPRESSION: Cardiomegaly with cardiac decompensation and pulmonary edema. Superimposed pneumonitis and underlying fibrotic changes are not excluded. Abdomen X-Ray 01/22/25 21:28 IMPRESSION: NO ACUTE ABDOMINAL FINDINGS. Renal Ultrasound 01/24/25 11:06 Impression: 1: Unremarkable renal ultrasound. No stones, masses or hydronephrosis. Abdomen/Pelvis CT 01/25/25 11:18 Impression: No acute abnormality seen. Labs Labs: Laboratory Results - last 24 hr 01/24/25 01/24/25 01/25/25 16:42 21:18 05:39 WBC 10.0 RBC 3.65 L Hgb 10.5 L Hct 34.0 L MCV 93.2 MCH 28.8 MCHC 30.9 L RDW 13.3 Plt Count 181 MPV 9.7 Immature Gran % (Auto) 0.8 H Neut % (Auto) 74.7 H Lymph % (Auto) 16.0 L [place] % (Auto) 6.1 Eos % (Auto) 1.9 Baso % (Auto) 0.5 Lymph # (Auto) 1.60 [place] # (Auto) 0.6 Eos # (Auto) 0.2 Baso # (Auto) 0.1 Abs Immat Gran (auto) 0.08 H Absolute Neuts (auto) 7.4 H Absolute Nucleated RBC 0.000 Nucleated RBC % 0.0 Sodium 139 Potassium 3.9 Chloride 111 H Carbon Dioxide 20 L Anion Gap 8 BUN 25 H Creatinine 2.53 H Estim Creat Clear Calc 36 Estimated GFR 20 L Glucose 163 H POC Capillary Glucose 138 H 180 H Lactic Acid < 0.5 L Calcium 9.4 Phosphorus 2.5 Magnesium 2.2 Total Bilirubin 0.4 AST 13 L ALT 11 Alkaline Phosphatase 94 Total Protein 7.0 Albumin 3.3 L Urine Opiates Screen Urine Methadone Screen Ur Barbiturates Screen Ur Phencyclidine Scrn Ur Amphetamine Screen U Benzodiazepines Scrn Urine Cocaine Screen U Cannabinoids Screen 01/25/25 01/25/25 01/25/25 06:12 08:19 11:36 WBC RBC Hgb Hct MCV MCH MCHC RDW Plt Count MPV Immature Gran % (Auto) Neut % (Auto) Lymph % (Auto) [place] % (Auto) Eos % (Auto) Baso % (Auto) Lymph # (Auto) [place] # (Auto) Eos # (Auto) Baso # (Auto) Abs Immat Gran (auto) Absolute Neuts (auto) Absolute Nucleated RBC Nucleated RBC % Sodium Potassium Chloride Carbon Dioxide Anion Gap BUN Creatinine Estim Creat Clear Calc Estimated GFR Glucose POC Capillary Glucose 141 H 124 H Lactic Acid Calcium Phosphorus Magnesium Total Bilirubin AST ALT Alkaline Phosphatase Total Protein Albumin Urine Opiates Screen Negative Urine Methadone Screen Negative Ur Barbiturates Screen Positive A Ur Phencyclidine Scrn Negative Ur Amphetamine Screen Negative U Benzodiazepines Scrn Positive A Urine Cocaine Screen Negative U Cannabinoids Screen Negative Quality VTE Prophylaxis VTE prophylaxis: pharmacologic ordered
[2025-01-25] MEDS: PERFLUTREN LIPID MICROSPHERES 1.5 ML VIAL DILUTED TO 10 ML TOTAL VOLUME IV PUSH (15:02)
--- NOTE | 2025-01-25 15:53 | IVDEFINITY ---
Prior to administration of IV Definity the patient was educated on the risks and benefits of the imaging enhancing agent including potential adverse side effects. The patient verbalized understanding. Allergies were verified. No exclusion criteria were identified and at least one of the following inclusion criteria were met: 1) physician request, 2) patient technically difficult to image (per the [place] [employer] guidelines of two or more segments not discernable within the apical view), or 3) questionable left ventricular function. ?
[2025-01-25 16:45] LABS: Glucose Point of Care 257 mg/dl (65-105)
[2025-01-25] MEDS: INSULIN ASPART (*BKC) 100 UNITS/ML SUB-Q (16:53)
[2025-01-25] MEDS: TRIMETHOBENZAMIDE HCL 200 MG/2 ML VIAL IM (19:51)
[2025-01-25] MEDS: ATORVASTATIN 10 MG TABLET 20 MG PO (21:02)
[2025-01-25] MEDS: AMITRIPTYLINE HCL 25 MG TABLET 50 MG PO (21:02)
[2025-01-25] MEDS: PRAZOSIN HCL 1 MG CAPSULE 2 MG PO (21:03)
[2025-01-26] VITALS (13 sets, daily range): BP systolic 123–144; BP diastolic 61–75; PULSE 73–107; RESP 16–20; TEMP 36.6–38.8; O2SAT 86–94
[2025-01-26 02:52] LABS: Glucose Point of Care 158 mg/dl (65-105)
[2025-01-26] MEDS: SUCRALFATE 1 GM TABLET PO ×4 (05:55→21:23)
[2025-01-26] MEDS: SODIUM CHLORIDE 0.9% IV 1,000 ML 50 ML IV CONT (05:59)
[2025-01-26 07:11] LABS: Basophils Absolute Auto 0.1 K/mm3 (0.0-0.1); Basophils Percent Auto 0.5 % (0.2-1.2); Eosinophils Absolute Auto 0.1 K/mm3 (0-0.3); Eosinophils Percent Auto 1.4 % (0-4.4); Hematocrit 31.8 % (37.0-47.0); Hemoglobin 9.6 g/dL (12.0-15.0); Immature Granulocyte Absolute 0.06 K/mm3 (0.00-0.031); Immature Granulocyte Percent A 0.6 % (0-0.5); Lymphocytes Absolute Auto 1.59 K/mm3 (0.9-3.2); Lymphocytes Percent Auto 15.5 % (18.3-44.2); Mean Corpuscular HGB Conc 30.2 g/dl (32-36); Mean Corpuscular Hemoglobin 28.4 pg (26-34); Mean Corpuscular Volume 94.1 fl (80-100); Monocytes Absolute Auto 0.7 K/mm3 (0.1-0.6); Monocytes Percent Auto 6.5 % (2.6-8.5); Neutrophils Absolute Auto 7.7 K/mm3 (1.3-6.7); Neutrophils Percent Auto 75.5 % (45.5-73.1); Platelet Count Result 168 k/mm3 (150-375); Red Blood Count 3.38 M/mm3 (4.2-5.4); Red Cell Distribution Width 13.2 % (11.5-14.5); White Blood Count 10.2 K/mm3 (4.5-10.0)
[2025-01-26 07:23] LABS: Alanine Aminotransferase 12 U/L (6-35); Albumin Level 3.1 g/dL (3.5-5.1); Alkaline Phosphatase 89 U/L (38-126); Anion Gap 6 mmol/L (4-12); Aspartate Amino Transferase 16 U/L (14-36); Bilirubin,Total 0.6 mg/dL (0.2-1.3); Blood Urea Nitrogen 28 mg/dL (7-17); Calcium 9.2 mg/dL (8.4-10.2); Carbon Dioxide 21 mmol/L (22-30); Chloride 111 mmol/L (98-107); Estimated CRCL calculation 36 ml/min; Estimated Glomerular Filt Rate 20; Glucose 137 mg/dL (65-110); Sodium 138 mmol/L (137-145)
[2025-01-26 08:09] LABS: Glucose Point of Care 128 mg/dl (65-105)
[2025-01-26] MEDS: ALPRAZolam (*CRX) 0.5 MG TABLET PO ×3 (08:50→16:27)
[2025-01-26] MEDS: MECLIZINE HCL 25 MG TABLET PO ×4 (08:50→21:23)
[2025-01-26] MEDS: METOPROLOL SUCCINATE EXT REL 50 MG TABCR BY MOUTH (08:50)
[2025-01-26] MEDS: SERTRALINE HCL 50 MG TABLET 100 MG PO (08:50)
[2025-01-26] MEDS: amLODIPine BESYLATE 5 MG TABLET BY MOUTH ×2 (08:51→16:27)
[2025-01-26] MEDS: CHOLECALCIFEROL 5,000 UNITS TABLET 5000 UNITS PO (08:51)
[2025-01-26] MEDS: ACYCLOVIR 400 MG TABLET PO ×2 (08:51→16:27)
[2025-01-26] MEDS: TOPIRAMATE 25 MG TABLET 50 MG PO ×2 (08:51→16:27)
[2025-01-26] MEDS: PIOGLITAZONE HCL 15 MG TAB PO (08:52)
[2025-01-26] MEDS: ENOXAPARIN 40 MG/0.4 ML SYRINGE SUB-Q (08:53)
[2025-01-26] MEDS: LUBIPROSTONE 24 MCG CAPSULE BY MOUTH ×2 (08:53→16:27)
--- NOTE | 2025-01-26 09:20 | P.PNIM_ITS ---
Progress Note: A&P Assessment and Plan (1) Acute on chronic renal failure: Code(s): N17.9 - Acute kidney failure, unspecified; N18.9 - Chronic kidney disease, unspecified Status: Acute Assessment and Plan: From dehydration Cr 2.53 from 2.94 continue IVF monitor (2) Dehydration: Code(s): E86.0 - Dehydration Status: Acute Assessment and Plan: continue gentle rehydration (3) Diarrhea: Code(s): R19.7 - Diarrhea, unspecified Status: Acute Assessment and Plan: C diff negative Stool culture pending Continue IVF and oral intake Will start Loperamide if stool culture is negative patient had fever yesterday but not in sepsis as at today's eval will continue to hold abx unless she develops sepsis CT AP no acute changes Contineu monitoring stool cultures (4) Irritable bowel syndrome with constipation: Code(s): K58.1 - Irritable bowel syndrome with constipation Status: Acute Assessment and Plan: Lubiprostone on hold (5) Insulin dependent diabetes mellitus: Status: Chronic Assessment and Plan: Diabetic diet Accu-Cheks a.c. HS Lantus and actos reordered SSI (6) Hypertension: Code(s): I10 - Essential (primary) hypertension Status: Acute Assessment and Plan: Can restart antihypertensives and diuretics tomorrow Plan DVT prophylaxis on Sq Lovenox Subjective Date/time seen: 01/26/25 09:20 Interval history: Has spikes of fever. Ordered blood culture and urine culture. Patient follows up with Alex as an outpatient. Patient is a type 1 diabetes and history of IBS. Currently holding the fluids due to volume overload. Will reassess tomorrow Review of Systems Review of Systems: 12 systems were reviewed and are negativ e except for as per HPI. Exam Narrative: General: well appearing, appears stated age. HEENT: normocephalic, atraumatic. Mucous membranes moist. EOMI, PERRLA, bilateral sclera anicteric, no conjunctival injection. Neck supple without JVD, lymphadenopathy, or bruit. Respiratory: clear to ascultation bilaterally. No rales/rhonic/wheezes. Cardiovascular: Regular rate and rhythm, normal S1-S2 upon ascultation. No murmurs, rubs, or clicks. PMI is nondisplaced, capillary refill less than 3 second. Abdomen: Soft, round, no pulsatile masses, nondistended and nontender. No rebound, no guarding. No CVA tenderness, no hepatosplenomegaly. Bowel sounds present to all four quadrants. No high pitch or tinkling sounds, resonant to percussion. Extremities: No cyanosis, clubbing, or edema present. Pulses are palpable 2/2. Active ROM to all four extremities. Neuro: Alert and orientated x 4. PERRLA. Cranial nerves 2-12 intact without focal deficit. Skin: Warm, dry, and intact, without rash, erythema, or lesion. Psych: pleasant, cooperative, normal speech, normal affect, no hallucinations, no dysarthia Objective Data Vital Signs Vital Signs: Vital Signs - 24 hr 01/25/25 09:29 01/25/25 09:39 01/25/25 11:41 Temperature 98.6 F 99.8 F H Pulse Rate 88 Respiratory Rate Blood Pressure Pulse Oximetry Oxygen Delivery Oxygen Flow Rate 01/25/25 12:00 01/25/25 14:00 01/25/25 16:00 Temperature 99.5 F Pulse Rate 106 H 86 84 Respiratory Rate 20 Blood Pressure 170/84 H Pulse Oximetry 93 Oxygen Delivery Oxygen Flow Rate 01/25/25 20:00 01/25/25 20:00 01/25/25 21:36 Temperature 98.4 F Pulse Rate 98 102 H Respiratory Rate 32 H Blood Pressure 188/84 H Pulse Oximetry 93 87 L Oxygen Delivery Nasal Cannula Oxygen Flow Rate 2 01/25/25 21:47 01/26/25 00:00 01/26/25 00:00 Temperature Pulse Rate 98 96 Respiratory Rate 20 Blood Pressure 144/75 H Pulse Oximetry 94 92 Oxygen Delivery Oxygen Flow Rate 01/26/25 04:00 01/26/25 05:51 01/26/25 08:02 Temperature 97.9 F 98.9 F Pulse Rate 88 89 87 Respiratory Rate 16 20 Blood Pressure 143/70 H 133/66 Pulse Oximetry 92 89 L Oxygen Delivery Oxygen Flow Rate Intake/Output Intake/Output: Intake & Output 01/23/25 01/24/25 01/25/25 01/26/25 23:59 23:59 23:59 23:59 Intake Total 1130 2870 3520 927.5 Balance 1130 2870 3520 927.5 Meds/Results Medications: Active Medications Generic Name Dose Route Start Last Admin Trade Name Freq PRN Reason Stop Dose Admin Acetaminophen 650 mg 04/16/25 13:52 01/25/25 21:56 Acetaminophen 325 Mg Tablet PO 650 mg Q6H PRN Administration Mild Pain (1-3) or Fever Acyclovir 400 mg 01/20/25 20:15 01/26/25 08:51 Acyclovir 400 Mg Tablet PO 400 mg BID [facility] Administration Alprazolam 0.5 mg 01/20/25 20:15 01/26/25 08:50 Alprazolam (*Crx) 0.5 Mg Tablet PO 0.5 mg TID [facility] Administration Amitriptyline HCl 50 mg 01/20/25 20:15 01/25/25 21:02 Amitriptyline Hcl 25 Mg Tablet PO 50 mg HS [facility] Administration Amlodipine Besylate 5 mg 01/23/25 17:00 01/26/25 08:51 Amlodipine Besylate 5 Mg Tablet BY MOUTH 5 mg BID [facility] Administration Atorvastatin Calcium 20 mg 01/20/25 20:15 01/25/25 21:02 Atorvastatin 10 Mg Tablet PO 20 mg QHS [facility] Administration Bumetanide 1 mg 01/22/25 09:00 01/23/25 09:43 Bumetanide 1 Mg Tablet PO Not Given BID [facility] Belladonna Alkaloids/ 0 ml 01/23/25 02:02 01/25/25 21:57 Phenobarbital 10 ml/ Al Hydrox PO 30 ml /Mg Hydrox/Simethicone 30 ml/ Q4H PRN Administration Lidocaine HCl 10 ml Heartburn Dextrose 12.5 gm 01/20/25 13:52 Dextrose 50% 25 Gm/50 Ml Syringe IV PUSH PRN PRN Hypoglycemia Protocol Dicyclomine HCl 20 mg 01/21/25 12:30 01/24/25 09:40 Dicyclomine Hcl 10 Mg Capsule PO 20 mg QID PRN Administration Abdominal Cramping Docusate Sodium 100 mg 01/21/25 09:00 01/24/25 09:32 Docusate Sodium 100 Mg Capsule PO Not Given DAILY [facility] Enoxaparin Sodium 40 mg 01/21/25 09:00 01/26/25 08:53 Enoxaparin 40 Mg/0.4 Ml Syringe SUB-Q 40 mg DAILY [facility] Administration Glucagon 1 mg 01/20/25 13:52 Glucagon For Inj 1 Mg Vial IM PRN PRN Hypoglycemia Protocol Glucose 15 gm 01/20/25 13:52 Glucose Oral Gel 15 Gm Of Glucse In 37.5 Gm Tube PO PRN PRN Hypoglycemia Protocol Dextrose 1,000 mls @ 100 mls/hr 01/20/25 13:52 Dextrose 5% 1,000 Ml IVPB PRN PRN Hypoglycemia Protocol Sodium Chloride 1,000 mls @ 50 mls/hr 01/23/25 08:15 01/26/25 05:59 Normal Saline Iv IV CONT 50 mls/hr .Q20H [facility] Administration Insulin Aspart 3 - 6 units 01/20/25 17:00 01/25/25 16:53 Insulin Aspart (*Bkc) 100 Units/Ml SUB-Q 4 units TIDWM [facility] Administration Protocol Insulin Aspart 1 - 3 units 01/20/25 21:00 01/25/25 21:05 Insulin Aspart (*Bkc) 100 Units/Ml SUB-Q Not Given HS [facility] Protocol Insulin Glargine 38 units 01/20/25 21:00 01/25/25 20:59 Insulin Glargine (*Bkc) 100 Units/Ml SUB-Q 38 units Q12HR [facility] Administration Losartan Potassium 100 mg 01/21/25 09:00 01/23/25 09:23 Losartan Potassium 100 Mg Tablet PO 100 mg DAILY [facility] Administration Lubiprostone 24 mcg 01/20/25 20:05 01/26/25 08:53 Lubiprostone 24 Mcg Capsule BY MOUTH 24 mcg BID [facility] Administration Meclizine HCl 25 mg 01/25/25 09:00 01/26/25 08:50 Meclizine Hcl 25 Mg Tablet PO 25 mg QID [facility] Administration Metoprolol Succinate 50 mg 01/21/25 09:00 01/26/25 08:50 Metoprolol Succinate Ext Rel 50 Mg Tabcr BY MOUTH 50 mg DAILY [facility] Administration Ondansetron HCl 4 mg 01/20/25 12:30 01/25/25 18:36 Ondansetron Inj 4 Mg/2 Ml Vial IV PUSH 4 mg Q4H PRN Administration Nausea Pantoprazole Sodium 40 mg 01/20/25 20:04 01/21/25 09:25 Pantoprazole 40 Mg Tablet PO 40 mg DAILY PRN Administration Nausea Pioglitazone HCl 15 mg 01/21/25 09:00 01/26/25 08:52 Pioglitazone Hcl 15 Mg Tab PO 15 mg DAILY [facility] Administration Prazosin HCl 2 mg 01/20/25 21:00 01/25/25 21:03 Prazosin Hcl 1 Mg Capsule PO 2 mg HS [facility] Administration Sertraline HCl 100 mg 01/21/25 09:00 01/26/25 08:50 Sertraline Hcl 50 Mg Tablet PO 100 mg DAILY [facility] Administration Spironolactone 25 mg 01/22/25 09:00 01/23/25 09:43 Spironolactone 25 Mg Tablet PO Not Given DAILY [facility] Sucralfate 1 gm 01/22/25 21:50 01/26/25 05:55 Sucralfate 1 Gm Tablet PO 1 gm ACHS [facility] Administration Topiramate 50 mg 01/20/25 20:15 01/26/25 08:51 Topiramate 25 Mg Tablet PO 50 mg BID [facility] Administration Trazodone HCl 50 mg 01/20/25 21:00 01/25/25 21:02 Trazodone Hcl 50 Mg Tablet PO 50 mg HS [facility] Administration Trimethobenzamide HCl 200 mg 01/22/25 20:22 01/25/25 19:51 Trimethobenzamide Hcl 200 Mg/2 Ml Vial IM 200 mg Q6H PRN Administration Nausea And Vomiting Vitamin D 5,000 units 01/21/25 09:00 01/26/25 08:51 Cholecalciferol 5,000 Units Tablet PO 5,000 units DAILY [facility] Administration Zolpidem Tartrate 10 mg 01/20/25 20:04 01/25/25 21:56 Zolpidem Tartrate (*Crx) 5 Mg Tablet PO 10 mg HS PRN Administration Insomnia Radiology Results: ITS Impressions Abdomen X-Ray 01/22/25 21:28 IMPRESSION: NO ACUTE ABDOMINAL FINDINGS. Renal Ultrasound 01/24/25 11:06 Impression: 1: Unremarkable renal ultrasound. No stones, masses or hydronephrosis. Abdomen/Pelvis CT 01/25/25 11:18 Impression: No acute abnormality seen. Labs Labs: Laboratory Results - last 24 hr 01/25/25 01/25/25 01/25/25 11:36 16:40 20:48 WBC RBC Hgb Hct MCV MCH MCHC RDW Plt Count MPV Immature Gran % (Auto) Neut % (Auto) Lymph % (Auto) [place] % (Auto) Eos % (Auto) Baso % (Auto) Lymph # (Auto) [place] # (Auto) Eos # (Auto) Baso # (Auto) Abs Immat Gran (auto) Absolute Neuts (auto) Absolute Nucleated RBC Nucleated RBC % Sodium Potassium Chloride Carbon Dioxide Anion Gap BUN Creatinine Estim Creat Clear Calc Estimated GFR Glucose POC Capillary Glucose 124 H 257 H 158 H Calcium Total Bilirubin AST ALT Alkaline Phosphatase Total Protein Albumin 01/26/25 01/26/25 07:05 08:04 WBC 10.2 H RBC 3.38 L Hgb 9.6 L Hct 31.8 L MCV 94.1 MCH 28.4 MCHC 30.2 L RDW 13.2 Plt Count 168 MPV 10.0 Immature Gran % (Auto) 0.6 H Neut % (Auto) 75.5 H Lymph % (Auto) 15.5 L [place] % (Auto) 6.5 Eos % (Auto) 1.4 Baso % (Auto) 0.5 Lymph # (Auto) 1.59 [place] # (Auto) 0.7 H Eos # (Auto) 0.1 Baso # (Auto) 0.1 Abs Immat Gran (auto) 0.06 H Absolute Neuts (auto) 7.7 H Absolute Nucleated RBC 0.000 Nucleated RBC % 0.0 Sodium 138 Potassium 4.0 Chloride 111 H Carbon Dioxide 21 L Anion Gap 6 BUN 28 H Creatinine 2.55 H Estim Creat Clear Calc 36 Estimated GFR 20 L Glucose 137 H POC Capillary Glucose 128 H Calcium 9.2 Total Bilirubin 0.6 AST 16 ALT 12 Alkaline Phosphatase 89 Total Protein 6.0 L Albumin 3.1 L Quality VTE Prophylaxis VTE prophylaxis: pharmacologic ordered Hospitalist MIPS Advance Care Plan I have confirmed that the patient's Advanced Care Plan is present, code status is documented, or surrogate decision maker is listed in patient medical record.: Yes Medication Reconciliation I have utilized all available resources to obtain, update and review the patients current medications (includes all prescriptions, OTC, herbals, cannabis, and nutritional supplements).: Yes
--- NOTE | 2025-01-26 10:25 | P.PNNP_ITS ---
Progress Note: A&P Assessment and Plan (1) Acute kidney injury: Code(s): N17.9 - Acute kidney failure, unspecified Status: Acute Assessment and Plan: * as noted on admission (with a creatinine of 2.94mg/dl) * suspect due to prerenal factors (poor oral intake + diarrhea) along with continued use of diuretics prior to admission * improvement noted with IVF hydration and holding diuretics * will eventually need to restart diuretics given her propensity for fluid retention/edema (probably closer to discharge) * evaluation to date noted: * CT A/P without evidence of obstruction * renal ultrasound normal * UA noted * urine electrolytes non-prerenal * nephrotic range proteinuria * urine eosinophils negative * CPK low * given ongoing diarrhea - would continue to hold diuretic therapy for now * monitor volume status * follow trend of repeat labs and UOP (2) Chronic kidney disease, stage IV (severe): Code(s): N18.4 - Chronic kidney disease, stage 4 (severe) Status: Chronic Assessment and Plan: * baseline creatinine runs ~ 2.0 - 2.5mg/dl in the last year * outpatient evaluation significant for normal renal ultrasound, negative serological profile, and nephrotic range proteinuria * CKD thought to be due to her previous bouts of LUKE/ARF along with diabetes, hypertension, and necessity of chronic diuretic therapy * diuretics are needed to keep swelling/edema (which is secondary to proteinuria) stable/controlled (3) Diarrhea: Code(s): R19.7 - Diarrhea, unspecified Status: Acute Assessment and Plan: * slow improvement * as noted by history * complicated by know history of irritable bowel syndrome * follow-up on stool studies * C. diff toxin negative * follow clinical symptoms (4) Metabolic acidosis: Code(s): E87.20 - Acidosis, unspecified Status: Acute Assessment and Plan: * better * presumably due to a LUKE and GI losses (diarrhea) as well as normal saline IVFs * compensated s/p sodium bicarbonate tabs (off currently) * follow trend of CO2 (5) Acute pulmonary edema: Code(s): J81.0 - Acute pulmonary edema Status: Acute Assessment and Plan: * as noted by CXR on 01/22... * no history of CHF documented * Echo results noted: * left ventricular systolic function is normal, estimated at 65-70% * left ventricular diastolic function is grade I diastolic dysfunction * mild aortic valve sclerosis. * mitral valve has mildly calcified annulus * small to moderate posteriorly located pericardial effusion andotherwise trace amount circumferentially * follow respiratory status (6) Hypertension: Code(s): I10 - Essential (primary) hypertension Status: Acute Assessment and Plan: * reasonable control * on metoprolol, amlodipine, and prazosin * holding losartan given #1 * titrate amlodipine, metoprolol and prazosin as needed to compensate * follow trend of hemodynamics (7) Anemia: Code(s): D64.9 - Anemia, unspecified Status: Acute Assessment and Plan: * due to LUKE, CKD, and dilutional effect from IVFs * follow trend of H/H (8) Insulin dependent diabetes mellitus: Status: Chronic Assessment and Plan: * follow accu-cheks * glycemic control per hospitalist Will continue to follow. L Subjective Date/time seen: 01/26/25 10:25 Interval history: Follow-up for acute kidney injury/acute renal failure on chronic kidney disease. Renal function/creatinine continues to slowly improve at this time; diarrhea seems to be doing better as well; now complains of severe back pain (that she thinks is coming from her kidneys) in association with symptoms of dysuria; no other acute complaints voiced when seen. Exam 2 Narrative: General: WD/WN female in NAD Heart: normal S1 and S2; no rub Lungs: clear to auscultation Abdomen: soft, mild TTP, nondistended, positive bowel sounds Extremities: no cyanosis or clubbing; no edema Skin: no rash Objective Data Vital Signs Vital Signs: Vital Signs Temp Pulse Resp BP Pulse Ox O2 Del Method O2 Flow Rate 01/26/25 08:02 98.9 F 87 20 133/66 89 L 01/26/25 08:00 94 01/26/25 05:51 97.9 F 89 16 143/70 H 92 01/26/25 04:00 88 01/26/25 00:00 96 01/26/25 00:00 98 144/75 H 92 01/25/25 21:47 20 94 01/25/25 21:36 98.4 F 102 H 32 H 188/84 H 87 L 01/25/25 20:00 98 01/25/25 20:00 93 Nasal Cannula 2 Intake/Output Intake/Output: Intake & Output 01/23/25 01/24/25 01/25/2525 23:59 23:59 23:59 23:59 Intake Total 1130 2870 3520 2407.5 Balance 1130 2870 3520 2407.5 Meds/Results Medications: Active Medications Generic Name Dose Route Start Last Admin Trade Name Freq PRN Reason Stop Dose Admin Acetaminophen 650 mg 01/20/25 13:52 01/26/25 15:01 Acetaminophen 325 Mg Tablet PO 650 mg Q6H PRN Administration Mild Pain (1-3) or Fever Acyclovir 400 mg 01/20/25 20:15 01/26/25 16:27 Acyclovir 400 Mg Tablet PO 400 mg BID [facility] Administration Alprazolam 0.5 mg 01/20/25 20:15 01/26/25 16:27 Alprazolam (*Crx) 0.5 Mg Tablet PO 0.5 mg TID [facility] Administration Amitriptyline HCl 50 mg 01/20/25 20:15 01/25/25 21:02 Amitriptyline Hcl 25 Mg Tablet PO 50 mg HS [facility] Administration Amlodipine Besylate 5 mg 01/23/25 17:00 01/26/25 16:27 Amlodipine Besylate 5 Mg Tablet BY MOUTH 5 mg BID [facility] Administration Atorvastatin Calcium 20 mg 01/20/25 20:15 01/25/25 21:02 Atorvastatin 10 Mg Tablet PO 20 mg QHS [facility] Administration Bumetanide 1 mg 01/22/25 09:00 01/23/25 09:43 Bumetanide 1 Mg Tablet PO Not Given BID [facility] Belladonna Alkaloids/ 0 ml 01/23/25 02:02 01/26/25 13:31 Phenobarbital 10 ml/ Al Hydrox PO 55 ml /Mg Hydrox/Simethicone 30 ml/ Q4H PRN Administration Lidocaine HCl 10 ml Heartburn Dextrose 12.5 gm 01/20/25 13:52 Dextrose 50% 25 Gm/50 Ml Syringe IV PUSH PRN PRN Hypoglycemia Protocol Dicyclomine HCl 20 mg 01/21/25 12:30 01/26/25 16:27 Dicyclomine Hcl 10 Mg Capsule PO 20 mg QID PRN Administration Abdominal Cramping Docusate Sodium 100 mg 01/21/25 09:00 01/24/25 09:32 Docusate Sodium 100 Mg Capsule PO Not Given DAILY [facility] Enoxaparin Sodium 40 mg 01/21/25 09:00 01/26/25 08:53 Enoxaparin 40 Mg/0.4 Ml Syringe SUB-Q 40 mg DAILY [facility] Administration Glucagon 1 mg 01/20/25 13:52 Glucagon For Inj 1 Mg Vial IM PRN PRN Hypoglycemia Protocol Glucose 15 gm 01/20/25 13:52 Glucose Oral Gel 15 Gm Of Glucse In 37.5 Gm Tube PO PRN PRN Hypoglycemia Protocol Dextrose 1,000 mls @ 100 mls/hr 01/20/25 13:52 Dextrose 5% 1,000 Ml IVPB PRN PRN Hypoglycemia Protocol Sodium Chloride 1,000 mls @ 50 mls/hr 01/23/25 08:15 01/26/25 05:59 Normal Saline Iv IV CONT 50 mls/hr .Q20H [facility] Administration Insulin Aspart 3 - 6 units 01/20/25 17:00 01/26/25 16:50 Insulin Aspart (*Bkc) 100 Units/Ml SUB-Q Not Given TIDWM [facility] Protocol Insulin Aspart 1 - 3 units 01/20/25 21:00 01/25/25 21:05 Insulin Aspart (*Bkc) 100 Units/Ml SUB-Q Not Given HS [facility] Protocol Insulin Glargine 38 units 01/20/25 21:00 01/26/25 11:50 Insulin Glargine (*Bkc) 100 Units/Ml SUB-Q Not Given Q12HR [facility] Losartan Potassium 100 mg 01/21/25 09:00 01/23/25 09:23 Losartan Potassium 100 Mg Tablet PO 100 mg DAILY [facility] Administration Lubiprostone 24 mcg 01/20/25 20:05 01/26/25 16:27 Lubiprostone 24 Mcg Capsule BY MOUTH 24 mcg BID [facility] Administration Meclizine HCl 25 mg 01/25/25 09:00 01/26/25 16:27 Meclizine Hcl 25 Mg Tablet PO 25 mg QID [facility] Administration Metoprolol Succinate 50 mg 01/21/25 09:00 01/26/25 08:50 Metoprolol Succinate Ext Rel 50 Mg Tabcr BY MOUTH 50 mg DAILY [facility] Administration Ondansetron HCl 4 mg 01/20/25 12:30 01/25/25 18:36 Ondansetron Inj 4 Mg/2 Ml Vial IV PUSH 4 mg Q4H PRN Administration Nausea Pantoprazole Sodium 40 mg 01/20/25 20:04 01/21/25 09:25 Pantoprazole 40 Mg Tablet PO 40 mg DAILY PRN Administration Nausea Pioglitazone HCl 15 mg 01/21/25 09:00 01/26/25 08:52 Pioglitazone Hcl 15 Mg Tab PO 15 mg DAILY [facility] Administration Prazosin HCl 2 mg 01/20/25 21:00 01/25/25 21:03 Prazosin Hcl 1 Mg Capsule PO 2 mg HS [facility] Administration Sertraline HCl 100 mg 01/21/25 09:00 01/26/25 08:50 Sertraline Hcl 50 Mg Tablet PO 100 mg DAILY [facility] Administration Spironolactone 25 mg 01/22/25 09:00 01/23/25 09:43 Spironolactone 25 Mg Tablet PO Not Given DAILY [facility] Sucralfate 1 gm 01/22/25 21:50 01/26/25 16:27 Sucralfate 1 Gm Tablet PO 1 gm ACHS [facility] Administration Topiramate 50 mg 01/20/25 20:15 01/26/25 16:27 Topiramate 25 Mg Tablet PO 50 mg BID [facility] Administration Trazodone HCl 50 mg 01/20/25 21:00 01/25/25 21:02 Trazodone Hcl 50 Mg Tablet PO 50 mg HS [facility] Administration Trimethobenzamide HCl 200 mg 01/22/25 20:22 01/26/25 12:05 Trimethobenzamide Hcl 200 Mg/2 Ml Vial IM 200 mg Q6H PRN Administration Nausea And Vomiting Vitamin D 5,000 units 01/21/25 09:00 01/26/25 08:51 Cholecalciferol 5,000 Units Tablet PO 5,000 units DAILY [facility] Administration Zolpidem Tartrate 10 mg 01/20/25 20:04 01/25/25 21:56 Zolpidem Tartrate (*Crx) 5 Mg Tablet PO 10 mg HS PRN Administration Insomnia Radiology Results: ITS Impressions Abdomen X-Ray 01/22/25 21:28 IMPRESSION: NO ACUTE ABDOMINAL FINDINGS. Renal Ultrasound 01/24/25 11:06 Impression: 1: Unremarkable renal ultrasound. No stones, masses or hydronephrosis. Abdomen/Pelvis CT 01/25/25 11:18 Impression: No acute abnormality seen. Chest X-Ray 01/26/25 09:28 IMPRESSION: Bibasilar pneumonia. Underlying pulmonary edema is not excluded. Cardiomegaly. Labs Labs: Laboratory Tests 01/26/25 07:05 01/26/25 07:05 Calcium 9.2 Total Bilirubin 0.6 AST 16 ALT 12 Alkaline Phosphatase 89 Total Protein 6.0 L Albumin 3.1 L Microbiology 01/22/25 16:22 Stool Escherichia coli Shiga Toxins - Final 01/22/25 16:22 Stool Salmonella/Shigella Culture - Final 01/22/25 16:22 Stool Campylobacter Antigen Assay - Final
[2025-01-26 11:35] LABS: Glucose Point of Care 142 mg/dl (65-105)
[2025-01-26] MEDS: DICYCLOMINE HCL 10 MG CAPSULE 20 MG PO ×3 (11:52→20:29)
[2025-01-26] MEDS: TRIMETHOBENZAMIDE HCL 200 MG/2 ML VIAL IM (12:05)
[2025-01-26] MEDS: BELLADONNA ALK/PHENOB ELIX 10 ML, MAG HYDROX/ALUMINUM HYD/SIMETH 30 ML, LIDOCAINE 2% VI... PO (13:31)
[2025-01-26] MEDS: ACETAMINOPHEN 325 MG TABLET 650 MG PO ×2 (15:01→20:28)
[2025-01-26 17:01] LABS: Glucose Point of Care 196 mg/dl (65-105)
[2025-01-26 21:15] LABS: Glucose Point of Care 151 mg/dl (65-105)
[2025-01-26] MEDS: AMITRIPTYLINE HCL 25 MG TABLET 50 MG PO (21:23)
[2025-01-26] MEDS: traZODone HCL 50 MG TABLET PO (21:23)
[2025-01-26] MEDS: ATORVASTATIN 10 MG TABLET 20 MG PO (21:23)
[2025-01-26] MEDS: PRAZOSIN HCL 1 MG CAPSULE 2 MG PO (21:24)
[2025-01-26] MEDS: INSULIN GLARGINE (*BKC) 100 UNITS/ML 38 UNITS SUB-Q (21:29)
[2025-01-26] MEDS: ONDANSETRON INJ 4 MG/2 ML VIAL IV PUSH (23:37)
[2025-01-26 23:44] LABS: Glucose Point of Care 149 mg/dl (65-105)
[2025-01-27] VITALS (12 sets, daily range): BP systolic 138–177; BP diastolic 74–84; PULSE 75–109; RESP 18–24; TEMP 36.9–39.3; O2SAT 88–93
[2025-01-27] MEDS: SUCRALFATE 1 GM TABLET PO ×4 (05:32→20:41)
[2025-01-27] MEDS: PANTOPRAZOLE 40 MG TABLET PO (05:32)
[2025-01-27 06:14] LABS: Add Urine Microscopic? YES; Appearance Urine Cloudy (Clear); Bacteria Urine None Seen /hpf; Bilirubin Urine Negative (Negative); Blood Urine Trace (Negative); Color Urine Yellow (Yellow); Glucose Urine UA Trace mg/dL (Negative); Ketones Urine Negative (Negative); Leukocyte Esterase Ur Negative LEU/UL (Negative); Nitrate Urine Negative (Negative); Protein Urine 3+ mg/dL (Negative); RBC Urine 0-2 /hpf (0-2); Specific Grav Ur 1.014 (1.001-1.035); Squamous Epithelial Cell Urine Occasional /hpf (Few); Urobilinogen Urine 0.2 mg/dL (<2.0); WBC Urine 0-5 /hpf (0-3); pH Urine 5.5 (5.0-9.0)
[2025-01-27 06:31] LABS: Hematocrit 32.8 % (37.0-47.0); Mean Corpuscular HGB Conc 30.5 g/dl (32-36); Mean Corpuscular Volume 95.1 fl (80-100); Mean Platelet Volume 10.3 fl (7.4-10.4); Platelet Count Result 167 k/mm3 (150-375); Red Blood Count 3.45 M/mm3 (4.2-5.4); Red Cell Distribution Width 13.2 % (11.5-14.5); White Blood Count 12.4 K/mm3 (4.5-10.0)
[2025-01-27 06:42] LABS: Alanine Aminotransferase 13 U/L (6-35); Albumin Level 3.4 g/dL (3.5-5.1); Alkaline Phosphatase 92 U/L (38-126); Anion Gap 8 mmol/L (4-12); Aspartate Amino Transferase 14 U/L (14-36); Bilirubin,Total 0.5 mg/dL (0.2-1.3); Blood Urea Nitrogen 31 mg/dL (7-17); Calcium 9.6 mg/dL (8.4-10.2); Carbon Dioxide 21 mmol/L (22-30); Chloride 109 mmol/L (98-107); Estimated CRCL calculation 33 ml/min; Estimated Glomerular Filt Rate 18; Glucose 179 mg/dL (65-110); Potassium 4.2 mmol/L (3.4-5.0); Sodium 138 mmol/L (137-145)
[2025-01-27 07:37] LABS: Glucose Point of Care 189 mg/dl (65-105)
[2025-01-27] MEDS: ACYCLOVIR 400 MG TABLET PO ×2 (09:03→17:18)
[2025-01-27] MEDS: SERTRALINE HCL 50 MG TABLET 100 MG PO (09:03)
[2025-01-27] MEDS: ENOXAPARIN 40 MG/0.4 ML SYRINGE SUB-Q (09:03)
[2025-01-27] MEDS: CHOLECALCIFEROL 5,000 UNITS TABLET 5000 UNITS PO (09:04)
[2025-01-27] MEDS: MECLIZINE HCL 25 MG TABLET PO ×4 (09:04→20:41)
[2025-01-27] MEDS: amLODIPine BESYLATE 5 MG TABLET BY MOUTH ×2 (09:04→17:18)
[2025-01-27] MEDS: PIOGLITAZONE HCL 15 MG TAB PO (09:04)
[2025-01-27] MEDS: ALPRAZolam (*CRX) 0.5 MG TABLET PO ×3 (09:05→17:18)
[2025-01-27] MEDS: LUBIPROSTONE 24 MCG CAPSULE BY MOUTH ×2 (09:05→17:18)
[2025-01-27] MEDS: METOPROLOL SUCCINATE EXT REL 50 MG TABCR BY MOUTH (09:05)
[2025-01-27] MEDS: TOPIRAMATE 25 MG TABLET 50 MG PO ×2 (09:05→17:18)
[2025-01-27] MEDS: INSULIN GLARGINE (*BKC) 100 UNITS/ML 38 UNITS SUB-Q (09:07)
[2025-01-27] MEDS: ONDANSETRON INJ 4 MG/2 ML VIAL IV PUSH (09:16)
--- NOTE | 2025-01-27 10:01 | P.PNIM_ITS ---
Progress Note: A&P Assessment and Plan (1) Acute on chronic renal failure: Code(s): N17.9 - Acute kidney failure, unspecified; N18.9 - Chronic kidney disease, unspecified Status: Acute Assessment and Plan: From dehydration continue IVF monitor (2) Dehydration: Code(s): E86.0 - Dehydration Status: Acute Assessment and Plan: continue gentle rehydration (3) Diarrhea: Code(s): R19.7 - Diarrhea, unspecified Status: Acute Assessment and Plan: C diff negative Stool culture pending Holding fluid due to volume overload Will start Loperamide if stool culture is negative patient had fever yesterday but not in sepsis as at today's eval will continue to hold abx unless she develops sepsis CT AP no acute changes Continue monitoring stool cultures (4) Irritable bowel syndrome with constipation: Code(s): K58.1 - Irritable bowel syndrome with constipation Status: Acute Assessment and Plan: Lubiprostone on hold (5) Insulin dependent diabetes mellitus: Status: Chronic Assessment and Plan: Diabetic diet Accu-Cheks a.c. HS Lantus and actos reordered SSI (6) Hypertension: Code(s): I10 - Essential (primary) hypertension Status: Acute Assessment and Plan: Can restart antihypertensives and diuretics tomorrow (7) Leukocytosis: Code(s): D72.829 - Elevated white blood cell count, unspecified Status: Acute Assessment and Plan: Remains febrile Started on ceftriaxone Pending blood culture and urine culture Reviewed CT chest abdomen pelvis Plan DVT prophylaxis on Sq Lovenox Subjective Date/time seen: 01/27/25 10:01 Interval history: Patient has a complicated course of hospitalization. Patient has a CKD. Currently holding Bumex, losartan, spironolactone. Unfortunately patient is volume overloaded which is evident in the CT scan including pleural effusion and pericardial effusion. CT scan was performed due to elevated leukocytosis and febrile. Patient does has symptoms of UTI but UA shows no leukocyte esterase or nitrates. Ordered urine culture and blood culture. Echo was performed on 01/25/2025 which shows the ejection fraction 65-70%. [id number] a posteriorly located pericardial effusion and otherwise trees out circumferentially. Given 1 dose of Bumex today. Holding fluids due to fluid overload. Will start the patient on ceftriaxone and consulted Cardiology as well for pericardial effusion. Review of Systems Review of Systems: 12 systems were reviewed and are negativ e except for as per HPI. Exam Narrative: General: well appearing, appears stated age. HEENT: normocephalic, atraumatic. Mucous membranes moist. EOMI, PERRLA, bilateral sclera anicteric, no conjunctival injection. Neck supple without JVD, lymphadenopathy, or bruit. Respiratory: clear to ascultation bilaterally. No rales/rhonic/wheezes. Cardiovascular: Regular rate and rhythm, normal S1-S2 upon ascultation. No murmurs, rubs, or clicks. PMI is nondisplaced, capillary refill less than 3 second. Abdomen: Soft, round, no pulsatile masses, nondistended and nontender. No rebound, no guarding. No CVA tenderness, no hepatosplenomegaly. Bowel sounds present to all four quadrants. No high pitch or tinkling sounds, resonant to percussion. Extremities: No cyanosis, clubbing, or edema present. Pulses are palpable 2/2. Active ROM to all four extremities. Neuro: Alert and orientated x 4. PERRLA. Cranial nerves 2-12 intact without foc al deficit. Skin: Warm, dry, and intact, without rash, erythema, or lesion. Psych: pleasant, cooperative, normal speech, normal affect, no hallucinations, no dysarthia Objective Data Vital Signs Vital Signs: Vital Signs - 24 hr 01/26/25 12:00 01/26/25 15:01 01/26/25 16:00 Temperature 101.9 F H Pulse Rate 107 H 90 Respiratory Rate Blood Pressure Pulse Oximetry Oxygen Delivery Fraction of Inspired Oxygen 01/26/25 16:26 01/26/25 16:52 01/26/25 19:47 Temperature 100.5 F H Pulse Rate 89 84 Respiratory Rate 18 Blood Pressure Pulse Oximetry 94 86 L Oxygen Delivery Room Air Fraction of Inspired Oxygen 24 01/26/25 20:00 01/26/25 21:53 01/27/25 00:00 Temperature 98.5 F Pulse Rate 76 73 75 Respiratory Rate 18 Blood Pressure 123/61 Pulse Oximetry 90 Oxygen Delivery Fraction of Inspired Oxygen 01/27/25 04:00 01/27/25 06:00 Temperature 98.5 F Pulse Rate 89 96 Respiratory Rate 18 Blood Pressure 158/78 H Pulse Oximetry 89 L Oxygen Delivery Fraction of Inspired Oxygen Intake/Output Intake/Output: Intake & Output 04/20/25 01/25/25 01/26/25 01/27/25 23:59 23:59 23:59 23:59 Intake Total 2870 3520 2647.5 200 Output Total 400 Balance 2870 3520 2647.5 -200 Meds/Results Medications: Active Medications Generic Name Dose Route Start Last Admin Trade Name Freq PRN Reason Stop Dose Admin Acetaminophen 650 mg 01/20/25 13:52 01/26/25 20:28 Acetaminophen 325 Mg Tablet PO 650 mg Q6H PRN Administration Mild Pain (1-3) or Fever Acyclovir 400 mg 01/20/25 20:15 01/27/25 09:03 Acyclovir 400 Mg Tablet PO 400 mg BID [facility]TH[facility] Administration Alprazolam 0.5 mg 01/20/25 20:15 01/27/25 09:05 Alprazolam (*Crx) 0.5 Mg Tablet PO 0.5 mg TID [facility]TH[facility] Administration Amitriptyline HCl 50 mg 01/20/25 20:15 01/26/25 21:23 Amitriptyline Hcl 25 Mg Tablet PO 50 mg HS [facility] Administration Amlodipine Besylate 5 mg 01/23/25 17:00 01/27/25 09:04 Amlodipine Besylate 5 Mg Tablet BY MOUTH 5 mg BID [facility] Administration Atorvastatin Calcium 20 mg 01/20/25 20:15 01/26/25 21:23 Atorvastatin 10 Mg Tablet PO 20 mg QHS [facility] Administration Bumetanide 1 mg 01/22/25 09:00 01/23/25 09:43 Bumetanide 1 Mg Tablet PO Not Given BID [facility] Belladonna Alkaloids/ 0 ml 01/23/25 02:02 01/26/25 13:31 Phenobarbital 10 ml/ Al Hydrox PO 55 ml /Mg Hydrox/Simethicone 30 ml/ Q4H PRN Administration Lidocaine HCl 10 ml Heartburn Dextrose 12.5 gm 01/20/25 13:52 Dextrose 50% 25 Gm/50 Ml Syringe IV PUSH PRN PRN Hypoglycemia Protocol Dicyclomine HCl 20 mg 01/21/25 12:30 01/26/25 20:29 Dicyclomine Hcl 10 Mg Capsule PO 20 mg QID PRN Administration Abdominal Cramping Docusate Sodium 100 mg 01/21/25 09:00 01/24/25 09:32 Docusate Sodium 100 Mg Capsule PO Not Given DAILY [facility] Enoxaparin Sodium 40 mg 01/21/25 09:00 01/27/25 09:03 Enoxaparin 40 Mg/0.4 Ml Syringe SUB-Q 40 mg DAILY [facility] Administration Glucagon 1 mg 01/20/25 13:52 Glucagon For Inj 1 Mg Vial IM PRN PRN Hypoglycemia Protocol Glucose 15 gm 01/20/25 13:52 Glucose Oral Gel 15 Gm Of Glucse In 37.5 Gm Tube PO PRN PRN Hypoglycemia Protocol Dextrose 1,000 mls @ 100 mls/hr 01/20/25 13:52 Dextrose 5% 1,000 Ml IVPB PRN PRN Hypoglycemia Protocol Sodium Chloride 1,000 mls @ 50 mls/hr 01/23/25 08:15 01/26/25 05:59 Normal Saline Iv IV CONT 50 mls/hr .Q20H [facility] Administration Insulin Aspart 3 - 6 units 01/20/25 17:00 01/27/25 09:03 Insulin Aspart (*Bkc) 100 Units/Ml SUB-Q Not Given TIDWM [facility] Protocol Insulin Aspart 1 - 3 units 01/20/25 21:00 01/26/25 21:30 Insulin Aspart (*Bkc) 100 Units/Ml SUB-Q Not Given HS [facility] Protocol Insulin Glargine 38 units 01/20/25 21:00 01/27/25 09:07 Insulin Glargine (*Bkc) 100 Units/Ml SUB-Q 38 units Q12HR [facility] Administration Losartan Potassium 100 mg 01/21/25 09:00 01/23/25 09:23 Losartan Potassium 100 Mg Tablet PO 100 mg DAILY [facility] Administration Lubiprostone 24 mcg 01/20/25 20:05 01/27/25 09:05 Lubiprostone 24 Mcg Capsule BY MOUTH 24 mcg BID [facility] Administration Meclizine HCl 25 mg 01/25/25 09:00 01/27/25 09:04 Meclizine Hcl 25 Mg Tablet PO 25 mg QID [facility] Administration Metoprolol Succinate 50 mg 01/21/25 09:00 01/27/25 09:05 Metoprolol Succinate Ext Rel 50 Mg Tabcr BY MOUTH 50 mg DAILY [facility] Administration Ondansetron HCl 4 mg 01/20/25 12:30 01/27/25 09:16 Ondansetron Inj 4 Mg/2 Ml Vial IV PUSH 4 mg Q4H PRN Administration Nausea Pantoprazole Sodium 40 mg 01/20/25 20:04 01/27/25 05:32 Pantoprazole 40 Mg Tablet PO 40 mg DAILY PRN Administration Nausea Pioglitazone HCl 15 mg 01/21/25 09:00 01/27/25 09:04 Pioglitazone Hcl 15 Mg Tab PO 15 mg DAILY [facility] Administration Prazosin HCl 2 mg 01/20/25 21:00 01/26/25 21:24 Prazosin Hcl 1 Mg Capsule PO 2 mg HS [facility] Administration Sertraline HCl 100 mg 01/21/25 09:00 01/27/25 09:03 Sertraline Hcl 50 Mg Tablet PO 100 mg DAILY [facility] Administration Spironolactone 25 mg 01/22/25 09:00 01/23/25 09:43 Spironolactone 25 Mg Tablet PO Not Given DAILY [facility] Sucralfate 1 gm 01/22/25 21:50 01/27/25 05:32 Sucralfate 1 Gm Tablet PO 1 gm ACHS [facility] Administration Topiramate 50 mg 01/20/25 20:15 01/27/25 09:05 Topiramate 25 Mg Tablet PO 50 mg BID [facility] Administration Trazodone HCl 50 mg 01/20/25 21:00 01/26/25 21:23 Trazodone Hcl 50 Mg Tablet PO 50 mg HS [facility] Administration Trimethobenzamide HCl 200 mg 01/22/25 20:22 01/26/25 12:05 Trimethobenzamide Hcl 200 Mg/2 Ml Vial IM 200 mg Q6H PRN Administration Nausea And Vomiting Vitamin D 5,000 units 01/21/25 09:00 01/27/25 09:04 Cholecalciferol 5,000 Units Tablet PO 5,000 units DAILY [facility] Administration Zolpidem Tartrate 10 mg 01/20/25 20:04 01/25/25 21:56 Zolpidem Tartrate (*Crx) 5 Mg Tablet PO 10 mg HS PRN Administration Insomnia Radiology Results: ITS Impressions Abdomen X-Ray 01/22/25 21:28 IMPRESSION: NO ACUTE ABDOMINAL FINDINGS. Renal Ultrasound 01/24/25 11:06 Impression: 1: Unremarkable renal ultrasound. No stones, masses or hydronephrosis. Abdomen/Pelvis CT 01/25/25 11:18 Impression: No acute abnormality seen. Chest X-Ray 01/26/25 17:29 IMPRESSION: Bibasilar consolidation, as detailed above. Labs Labs: Laboratory Results - last 24 hr 01/26/25 01/26/25 01/26/25 11:32 16:58 20:43 WBC RBC Hgb Hct MCV MCH MCHC RDW Plt Count MPV Sodium Potassium Chloride Carbon Dioxide Anion Gap BUN Creatinine Estim Creat Clear Calc Estimated GFR Glucose POC Capillary Glucose 142 H 196 H 151 H Calcium Total Bilirubin AST ALT Alkaline Phosphatase Total Protein Albumin Urine Color Urine Appearance Urine pH Ur Specific Mize Urine Protein Urine Glucose (UA) Urine Ketones Ur Blood (Man) Urine Nitrate Urine Bilirubin Urine Urobilinogen Leukocyte Esterase Rfl Urine RBC Urine WBC Ur Squamous Epith Cells Urine Bacteria Urine Casts 01/26/25 01/27/25 01/27/25 23:40 06:01 06:13 WBC 12.4 H RBC 3.45 L Hgb 10.0 L Hct 32.8 L MCV 95.1 MCH 29.0 MCHC 30.5 L RDW 13.2 Plt Count 167 MPV 10.3 Sodium 138 Potassium 4.2 Chloride 109 H Carbon Dioxide 21 L Anion Gap 8 BUN 31 H Creatinine 2.79 H Estim Creat Clear Calc 33 Estimated GFR 18 L Glucose 179 H POC Capillary Glucose 149 H Calcium 9.6 Total Bilirubin 0.5 AST 14 ALT 13 Alkaline Phosphatase 92 Total Protein 7.0 Albumin 3.4 L Urine Color Yellow Urine Appearance Cloudy H Urine pH 5.5 Ur Specific Mize 1.014 Urine Protein 3+ H Urine Glucose (UA) Trace H Urine Ketones Negative Ur Blood (Man) Trace Urine Nitrate Negative Urine Bilirubin Negative Urine Urobilinogen 0.2 Leukocyte Esterase Rfl Negative Urine RBC 0-2 Urine WBC 0-5 Ur Squamous Epith Cells Occasional Urine Bacteria None seen Urine Casts 3-5 01/27/25 07:30 WBC RBC Hgb Hct MCV MCH MCHC RDW Plt Count MPV Sodium Potassium Chloride Carbon Dioxide Anion Gap BUN Creatinine Estim Creat Clear Calc Estimated GFR Glucose POC Capillary Glucose 189 H Calcium Total Bilirubin AST ALT Alkaline Phosphatase Total Protein Albumin Urine Color Urine Appearance Urine pH Ur Specific Mize Urine Protein Urine Glucose (UA) Urine Ketones Ur Blood (Man) Urine Nitrate Urine Bilirubin Urine Urobilinogen Leukocyte Esterase Rfl Urine RBC Urine WBC Ur Squamous Epith Cells Urine Bacteria Urine Casts Quality VTE Prophylaxis VTE prophylaxis: pharmacologic ordered Hospitalist MIPS Advance Care Plan I have confirmed that the patient's Advanced Care Plan is present, code status is documented, or surrogate decision maker is listed in patient medical record.: Yes Medication Reconciliation I have utilized all available resources to obtain, update and review the patients current medications (includes all prescriptions, OTC, herbals, cannabis, and nutritional supplements).: Yes
[2025-01-27 11:29] LABS: Glucose Point of Care 163 mg/dl (65-105)
--- NOTE | 2025-01-27 12:14 | P.PNNP_ITS ---
Progress Note: A&P Assessment and Plan (1) Acute kidney injury: Code(s): N17.9 - Acute kidney failure, unspecified Status: Acute Assessment and Plan: * as noted on admission (with a creatinine of 2.94mg/dl) * suspect due to prerenal factors (poor oral intake + diarrhea) along with continued use of diuretics prior to admission * improvement noted with IVF hydration and holding diuretics * however, creatinine up again -- due to fevers? * evaluation to date noted: * CT A/P without evidence of obstruction * renal ultrasound normal * UA noted * urine electrolytes non-prerenal * nephrotic range proteinuria * urine eosinophils negative * CPK low * monitor volume status * may need PRN IV diuretics... * follow trend of repeat labs and UOP (2) Chronic kidney disease, stage IV (severe): Code(s): N18.4 - Chronic kidney disease, stage 4 (severe) Status: Chronic Assessment and Plan: * baseline creatinine runs ~ 2.0 - 2.5mg/dl in the last year * outpatient evaluation significant for normal renal ultrasound, negative serological profile, and nephrotic range proteinuria * CKD thought to be due to her previous bouts of LUKE/ARF along with diabetes, hypertension, and necessity of chronic diuretic therapy * diuretics are needed to keep swelling/edema (which is secondary to proteinuria) stable/controlled (3) Fever: Code(s): R50.9 - Fever, unspecified Status: Acute Assessment and Plan: * as noted in the last 24 hours * source not clear * blood culture pending * UA not convincing for UTI but has symptoms of dysuria...urine culture ordered * mildly elevated WBC noted * tylenol as needed (4) Diarrhea: Code(s): R19.7 - Diarrhea, unspecified Status: Acute Assessment and Plan: * improvement noted * as noted by history * complicated by know history of irritable bowel syndrome * stool studies negative; C. diff toxin negative as well * follow clinical symptoms (5) Metabolic acidosis: Code(s): E87.20 - Acidosis, unspecified Status: Acute Assessment and Plan: * better * presumably due to a LUKE and GI losses (diarrhea) as well as normal saline IVFs * compensated s/p sodium bicarbonate tabs (off currently) * follow trend of CO2 (6) Acute pulmonary edema: Code(s): J81.0 - Acute pulmonary edema Status: Acute Assessment and Plan: * as noted by CXR on 01/22... * no history of CHF documented * Echo results noted: * left ventricular systolic function is normal, estimated at 65-70% * left ventricular diastolic function is grade I diastolic dysfunction * mild aortic valve sclerosis. * mitral valve has mildly calcified annulus * small to moderate posteriorly located pericardial effusion andotherwise trace amount circumferentially * follow respiratory status (7) Hypertension: Code(s): I10 - Essential (primary) hypertension Status: Acute Assessment and Plan: * reasonable control * on metoprolol, amlodipine, and prazosin * holding losartan given #1 * titrate amlodipine, metoprolol and prazosin as needed to compensate * follow trend of hemodynamics (8) Anemia: Code(s): D64.9 - Anemia, unspecified Status: Acute Assessment and Plan: * due to LUKE, CKD, and dilutional effect from IVFs * follow trend of H/H (9) Insulin dependent diabetes mellitus: Status: Chronic Assessment and Plan: * follow accu-cheks * glycemic control per hospitalist Will continue to follow. L Subjective Date/time seen: 01/27/25 12:14 Interval history: Follow-up for acute kidney injury/acute renal failure on chronic kidney disease. Renal function/creatinine a bit worse today in association with fevers in the last 24 hours without a clear source - Tmax 101.9?; still have flank pain more so on the right side as well; appropriate cultures collected; UA and chest ray results noted; states that she just does not feel well. CT of chest/abdomen/pelvis results noted. Exam 2 Narrative: General: WD/WN female in NAD Heart: normal S1 and S2; no rub Lungs: clear to auscultation Abdomen: soft, nontender, nondistended, positive bowel sounds Extremities: no cyanosis or clubbing; 1+ edema Skin: no nodules Objective Data Vital Signs Vital Signs: Vital Signs Temp Pulse Resp BP Pulse Ox O2 Del Method FiO2 01/27/25 12:04 101.1 F H 01/27/25 08:00 109 H 01/27/25 08:00 109 H 24 H 88 L Room Air 01/27/25 06:00 98.5 F 96 18 158/78 H 89 L 01/27/25 04:00 89 01/27/25 00:00 75 01/26/25 21:53 98.5 F 73 18 123/61 90 01/26/25 20:00 76 01/26/25 19:47 84 18 86 L Room Air 24 01/26/25 16:52 89 94 01/26/25 16:26 100.5 F H 01/26/25 16:00 90 Intake/Output Intake/Output: Intake & Output 01/24/25 01/25/25 01/26/25 01/27/25 23:59 23:59 23:59 23:59 Intake Total 2870 3520 2647.5 200 Output Total 400 Balance 2870 3520 2647.5 -200 Meds/Results Medications: Active Medications Generic Name Dose Route Start Last Admin Trade Name Freq PRN Reason Stop Dose Admin Acetaminophen 650 mg 01/20/25 13:52 01/27/25 13:04 Acetaminophen 325 Mg Tablet PO 650 mg Q6H PRN Administration Mild Pain (1-3) or Fever Acyclovir 400 mg 01/20/25 20:15 01/27/25 09:03 Acyclovir 400 Mg Tablet PO 400 mg BID SANTHOSH Administration Alprazolam 0.5 mg 01/20/25 20:15 01/27/25 13:05 Alprazolam (*Crx) 0.5 Mg Tablet PO 0.5 mg TID SANTHOSH Administration Amitriptyline HCl 50 mg 01/20/25 20:15 01/26/25 21:23 Amitriptyline Hcl 25 Mg Tablet PO 50 mg HS SANTHOSH Administration Amlodipine Besylate 5 mg 01/23/25 17:00 01/27/25 09:04 Amlodipine Besylate 5 Mg Tablet BY MOUTH 5 mg BID SANTHOSH Administration Atorvastatin Calcium 20 mg 01/20/25 20:15 01/26/25 21:23 Atorvastatin 10 Mg Tablet PO 20 mg QHS SANTHOSH Administration Bumetanide 1 mg 01/22/25 09:00 01/23/25 09:43 Bumetanide 1 Mg Tablet PO Not Given BID SANTHOSH Belladonna Alkaloids/ 0 ml 01/23/25 02:02 01/26/25 13:31 Phenobarbital 10 ml/ Al Hydrox PO 55 ml /Mg Hydrox/Simethicone 30 ml/ Q4H PRN Administration Lidocaine HCl 10 ml Heartburn Dextrose 12.5 gm 01/20/25 13:52 Dextrose 50% 25 Gm/50 Ml Syringe IV PUSH PRN PRN Hypoglycemia Protocol Dicyclomine HCl 20 mg 01/21/25 12:30 01/26/25 20:29 Dicyclomine Hcl 10 Mg Capsule PO 20 mg QID PRN Administration Abdominal Cramping Docusate Sodium 100 mg 01/21/25 09:00 01/24/25 09:32 Docusate Sodium 100 Mg Capsule PO Not Given DAILY SANTHOSH Enoxaparin Sodium 40 mg 01/21/25 09:00 01/27/25 09:03 Enoxaparin 40 Mg/0.4 Ml Syringe SUB-Q 40 mg DAILY SANTHOSH Administration Glucagon 1 mg 01/20/25 13:52 Glucagon For Inj 1 Mg Vial IM PRN PRN Hypoglycemia Protocol Glucose 15 gm 01/20/25 13:52 Glucose Oral Gel 15 Gm Of Glucse In 37.5 Gm Tube PO PRN PRN Hypoglycemia Protocol Dextrose 1,000 mls @ 100 mls/hr 01/20/25 13:52 Dextrose 5% 1,000 Ml IVPB PRN PRN Hypoglycemia Protocol Sodium Chloride 1,000 mls @ 50 mls/hr 01/23/25 08:15 01/26/25 05:59 Normal Saline Iv IV CONT 50 mls/hr .Q20H SANTHOSH Administration Insulin Aspart 3 - 6 units 01/20/25 17:00 01/27/25 13:05 Insulin Aspart (*Bkc) 100 Units/Ml SUB-Q Not Given TIDWM [facility] Protocol Insulin Aspart 1 - 3 units 01/20/25 21:00 01/26/25 21:30 Insulin Aspart (*Bkc) 100 Units/Ml SUB-Q Not Given HS [facility] Protocol Insulin Glargine 38 units 01/20/25 21:00 01/27/25 09:07 Insulin Glargine (*Bkc) 100 Units/Ml SUB-Q 38 units Q12HR SANTHOSH Administration Losartan Potassium 100 mg 01/21/25 09:00 01/23/25 09:23 Losartan Potassium 100 Mg Tablet PO 100 mg DAILY SANTHOSH Administration Lubiprostone 24 mcg 01/20/25 20:05 01/27/25 09:05 Lubiprostone 24 Mcg Capsule BY MOUTH 24 mcg BID SANTHOSH Administration Meclizine HCl 25 mg 01/25/25 09:00 01/27/25 13:05 Meclizine Hcl 25 Mg Tablet PO 25 mg QID SANTHOSH Administration Metoprolol Succinate 50 mg 01/21/25 09:00 01/27/25 09:05 Metoprolol Succinate Ext Rel 50 Mg Tabcr BY MOUTH 50 mg DAILY SANTHOSH Administration Ondansetron HCl 4 mg 01/20/25 12:30 01/27/25 09:16 Ondansetron Inj 4 Mg/2 Ml Vial IV PUSH 4 mg Q4H PRN Administration Nausea Pantoprazole Sodium 40 mg 01/20/25 20:04 01/27/25 05:32 Pantoprazole 40 Mg Tablet PO 40 mg DAILY PRN Administration Nausea Perflutren Lipid Microsphere 0 ml 01/27/25 14:34 Perflutren Lipid Microspheres 1.5 Ml Vial Diluted To 10 Ml Total Volume IV PUSH 01/30/25 14:35 ONCE PRN adequate visualization Protocol Pioglitazone HCl 15 mg 01/21/25 09:00 01/27/25 09:04 Pioglitazone Hcl 15 Mg Tab PO 15 mg DAILY SANTHOSH Administration Prazosin HCl 2 mg 01/20/25 21:00 01/26/25 21:24 Prazosin Hcl 1 Mg Capsule PO 2 mg HS SANTHOHS Administration Sertraline HCl 100 mg 01/21/25 09:00 01/27/25 09:03 Sertraline Hcl 50 Mg Tablet PO 100 mg DAILY SANTHOSH Administration Spironolactone 25 mg 01/22/25 09:00 01/23/25 09:43 Spironolactone 25 Mg Tablet PO Not Given DAILY SANTHOSH Sucralfate 1 gm 01/22/25 21:50 01/27/25 13:05 Sucralfate 1 Gm Tablet PO 1 gm ACHS SANTHOSH Administration Topiramate 50 mg 01/20/25 20:15 01/27/25 09:05 Topiramate 25 Mg Tablet PO 50 mg BID SANTHOSH Administration Trazodone HCl 50 mg 01/20/25 21:00 01/26/25 21:23 Trazodone Hcl 50 Mg Tablet PO 50 mg HS SANTHOSH Administration Trimethobenzamide HCl 200 mg 01/22/25 20:22 01/26/25 12:05 Trimethobenzamide Hcl 200 Mg/2 Ml Vial IM 200 mg Q6H PRN Administration Nausea And Vomiting Vitamin D 5,000 units 01/21/25 09:00 01/27/25 09:04 Cholecalciferol 5,000 Units Tablet PO 5,000 units DAILY SANTHOSH Administration Zolpidem Tartrate 10 mg 01/20/25 20:04 01/25/25 21:56 Zolpidem Tartrate (*Crx) 5 Mg Tablet PO 10 mg HS PRN Administration Insomnia Radiology Results: ITS Impressions Abdomen X-Ray 01/22/25 21:28 IMPRESSION: NO ACUTE ABDOMINAL FINDINGS. Renal Ultrasound 01/24/25 11:06 Impression: 1: Unremarkable renal ultrasound. No stones, masses or hydronephrosis. Abdomen/Pelvis CT 01/25/25 11:18 Impression: No acute abnormality seen. Chest X-Ray 01/26/25 17:29 IMPRESSION: Bibasilar consolidation, as detailed above. Chest/Abdomen/Pelvis CT 01/27/25 11:15 Impression: Probable minimal alveolar and interstitial pulmonary edema with minimal pleural fluid and left basilar atelectatic change. Small to moderate pericardial effusion. No significant findings in the abdomen or pelvis. Labs Labs: Laboratory Tests 01/27/25 06:13 01/27/25 06:13 Calcium 9.6 Total Bilirubin 0.5 AST 14 ALT 13 Alkaline Phosphatase 92 Total Protein 7.0 Albumin 3.4 L Microbiology 01/26/25 18:56 Blood Blood Culture - Preliminary 01/26/25 19:09 Blood Blood Culture - Preliminary
[2025-01-27] MEDS: ACETAMINOPHEN 325 MG TABLET 650 MG PO ×2 (13:04→20:40)
[2025-01-27 15:28] LABS: NT Pro B Type Natriuretic Pept 3900 pg/mL (19.9-100)
[2025-01-27 16:41] LABS: Glucose Point of Care 203 mg/dl (65-105)
[2025-01-27] MEDS: cefTRIAXone 2 GM/NS 100 ML 2 GM/100 ML BAG IVPB (17:11)
[2025-01-27] MEDS: BUMETANIDE INJ 1 MG/4 ML VIAL IV PUSH (17:12)
[2025-01-27] MEDS: INSULIN ASPART (*BKC) 100 UNITS/ML SUB-Q (17:51)
[2025-01-27 19:16] LABS: Influenza A QL RT-PCR Negative (Negative); Influenza B QL RT-PCR Negative (Negative); RSV RNA, RT-PCR Negative (Negative); SARS-CoV-2 RNA PCR Negative (Negative)
[2025-01-27] MEDS: AMITRIPTYLINE HCL 25 MG TABLET 50 MG PO (20:40)
[2025-01-27] MEDS: PRAZOSIN HCL 1 MG CAPSULE 2 MG PO (20:41)
[2025-01-27] MEDS: traZODone HCL 50 MG TABLET PO (20:41)
[2025-01-27] MEDS: ATORVASTATIN 10 MG TABLET 20 MG PO (20:41)
[2025-01-27 21:23] LABS: Glucose Point of Care 105 mg/dl (65-105)
[2025-01-27] MEDS: TRIMETHOBENZAMIDE HCL 200 MG/2 ML VIAL IM (22:34)
[2025-01-28] VITALS (11 sets, daily range): BP systolic 149–165; BP diastolic 77–82; PULSE 77–100; RESP 20–21; TEMP 36.4–37.7; O2SAT 79–93
[2025-01-28] MEDS: ZOLPIDEM TARTRATE (*CRX) 5 MG TABLET 10 MG PO ×2 (00:35→22:40)
[2025-01-28] MEDS: ACETAMINOPHEN 325 MG TABLET 650 MG PO ×2 (01:50→13:11)
[2025-01-28] MEDS: SUCRALFATE 1 GM TABLET PO ×4 (06:28→20:50)
[2025-01-28 06:40] LABS: Hematocrit 29.5 % (37.0-47.0); Mean Corpuscular HGB Conc 30.5 g/dl (32-36); Mean Corpuscular Hemoglobin 28.6 pg (26-34); Mean Corpuscular Volume 93.7 fl (80-100); Mean Platelet Volume 10.6 fl (7.4-10.4); Platelet Count Result 181 k/mm3 (150-375); Red Blood Count 3.15 M/mm3 (4.2-5.4); White Blood Count 11.7 K/mm3 (4.5-10.0)
[2025-01-28 06:55] LABS: Alanine Aminotransferase 12 U/L (6-35); Albumin Level 3.2 g/dL (3.5-5.1); Alkaline Phosphatase 86 U/L (38-126); Anion Gap 7 mmol/L (4-12); Aspartate Amino Transferase 13 U/L (14-36); Bilirubin,Total 0.5 mg/dL (0.2-1.3); Blood Urea Nitrogen 33 mg/dL (7-17); Calcium 9.6 mg/dL (8.4-10.2); Carbon Dioxide 21 mmol/L (22-30); Chloride 110 mmol/L (98-107); Estimated CRCL calculation 32 ml/min; Estimated Glomerular Filt Rate 18; Glucose 179 mg/dL (65-110); Potassium 3.6 mmol/L (3.4-5.0); Sodium 138 mmol/L (137-145)
[2025-01-28 07:51] LABS: Glucose Point of Care 142 mg/dl (65-105)
--- NOTE | 2025-01-28 09:02 | P.CONCA_ITS ---
Assessment and Plan Assessment and plan (1) Pericardial effusion: Code(s): I31.39 - Other pericardial effusion (noninflammatory) Status: Acute Assessment and Plan: Small to moderate posterior pericardial effusion. Small pericardial effusion noted on echo from 2022 as well. No tamponade physiology noted on current echocardiogram. She is hemodynamically stable. Probably related to her autoimmune conditions. Doubt pericarditis. (2) Chest pain: Qualifiers: Chest pain type: unspecified Qualified Code(s): R07.9 - Chest pain, unspecified Code(s): R07.9 - Chest pain, unspecified Status: Acute Assessment and Plan: Atypical chest pain that seems most consistent with GI etiology. Troponin is negative. She does have risk factors for coronary artery disease, so can plan for outpatient stress test. (3) Hypertension: Code(s): I10 - Essential (primary) hypertension Status: Acute Assessment and Plan: At goal Plan Cardiology will follow along on an as needed basis. Please call with questions. History of Present Illness History of Present Illness Consult date/time: 01/28/25 09:02 Reason For Visit: dehydration,acute kidney injury Narrative: Jennifer Londono is a 49-year-old female with insulin-dependent diabetes, hypertension, hyperlipidemia, cyclic vomiting syndrome, irritable bowel syndrome, and rheumatoid arthritis. She presented to the hospital with complaints of abdominal pain and diarrhea. Cardiology is consulted because of a finding of pericardial effusion on echocardiogram. She is complaining of a burning sensation in her throat and esophagus that radiates to her back and settles in the center of her chest. This sensation occurs immediately after eating. She also complains of central chest pain when she takes a deep breath. She reports she has had these symptoms since the time of admission and states she was receiving GI cocktails which did help alleviate the throat/esophagus burning. She endorses shortness of breath and is requiring supplemental oxygen. 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 Gastroparesis Irritable bowel syndrome with constipation Cyclic vomiting syndrome Insulin dependent diabetes mellitus Hyperlipidemia Hypertension Gastroesophageal reflux disease Vitamin B 12 deficiency Anxiety Depression Hypothyroidism Fibromyalgia Rheumatoid arthritis Endometriosis Herpes Uterine fibroid Peptic ulcer Bronchitis Surgical History Surgical History History of cholecystectomy History of detached retina repair History of partial knee replacement History of hysterectomy History of laparoscopy Removal of uterine fibroids Family History Family History Mother Diabetes mellitus Hypertension Family history of elevated blood lipids Sibling Family history of obesity Patient's sister is in good health Father Hypertension Family history of cardiovascular disease Other Acute myocardial infarction Family history of arthritis Family history of heart disease in male family member before age 55 Family history of thyroid disease Social History Social History Social History: Lives alone in [place]. with no children. No alcohol, tobacco, illicit substance abuse. Surrogate decision maker: Susan Mariano, . Code status: Full code. Caffeine-daily Smoking status: Never smoker Alcohol intake: never Drinks per week: 1 Alcohol use details: rarely Substance use: never Substance use type: does not use Do You Feel Safe in your Home?: Yes Lack of Transportation: No Lack of Food: Never True Current Housing: I Have Housing Concerned About Future Housing: No Difficulty Paying Gas/Electric Bills: No Difficulty Paying for Meds: No Currently Unemployed: No Education: Associate Degree Difficulty w/ Childcare or Family Care: No Living arrangements: with family Spiritual care concerns: No Meds Home Medications and Allergies Home Medications ?Medication ?Instructions ?Recorded ?Confirmed ?Type docusate sodium 100 mg capsule 100 mg PO DAILY 11/02/19 01/20/25 History (Colace) sertraline 100 mg tablet (Zoloft) 100 mg PO DAILY 11/02/19 01/20/25 History zolpidem 10 mg tablet 10 mg PO QPM PRN Insomnia 11/02/19 01/20/25 History prazosin 2 mg capsule (Minipress) 2 mg PO HS 07/03/20 01/20/25 History coenzyme Q10 100 mg capsule (Co 100 mg PO DAILY 10/03/21 01/20/25 History Q-10) trazodone 50 mg tablet 50 mg PO HS 05/21/22 01/20/25 History Humalog KwikPen Insulin See Protocol subcut TIDWMEAL 03/22/23 01/20/25 History atorvastatin 10 mg tablet 20 mg PO QHS 04/02/23 01/20/25 History ondansetron 4 mg disintegrating 4 mg PO Q8H PRN nausea and 06/03/23 01/20/25 Rx tablet vomiting #10 tabs sumatriptan succinate 6 mg/0.5 mL 6 mg subcut ONCE PRN Migraine 08/01/23 01/20/25 History subcutaneous pen injector Headache alprazolam 0.5 mg tablet 0.5 mg PO TID 09/10/23 01/20/25 History blood-glucose sensor (FreeStyle #1 ea 05/13/24 01/20/25 History Sharita 3 Sensor device) glucagon 3 mg/actuation nasal 3 mg intranasal PRN PRN 05/13/24 01/20/25 History spray (Baqsimi) Hypoglycemia insulin glargine 100 unit/mL (3 38 unit subcut BID 05/13/24 01/20/25 History mL) subcutaneous pen (Lantus Solostar U-100 Insulin) pen needle, diabetic 32 gauge x #1,200 ea 05/13/24 01/20/25 History 5/32 (BD Mer 2nd Gen Pen Needle) pioglitazone 15 mg tablet 15 mg PO DAILY 05/13/24 01/20/25 History cholecalciferol (vitamin D3) 1,250 1,250 mcg PO WEEKLY 06/02/24 01/20/25 History mcg (50,000 unit) tablet prochlorperazine maleate 10 mg 20 mg PO Q4-6H PRN Nausea 06/02/24 01/20/25 History tablet bumetanide 1 mg tablet 1 mg PO BID #60 tabs 06/25/24 01/20/25 Rx spironolactone 25 mg tablet 25 mg PO DAILY #30 tabs 06/25/24 01/20/25 Rx acyclovir 400 mg tablet 400 mg PO BID #180 tabs 08/20/24 01/20/25 Rx cholecalciferol (vitamin D3) 125 125 mcg PO DAILY 08/20/24 01/20/25 History mcg (5,000 unit) tablet zinc citrate 11 mg chewable tablet 11 mg PO DAILY 08/20/24 01/20/25 History losartan 100 mg tablet 100 mg PO DAILY #90 tabs 09/25/24 01/20/25 Rx amitriptyline 25 mg tablet 50 mg (2 x 25 mg) PO HS #180 tabs 11/18/24 01/20/25 Rx metoprolol succinate 50 mg See Rx Instructions .Route 11/24/24 01/20/25 Rx tablet,extended release 24 hr .COMPLEX #90 tabs pantoprazole 40 mg tablet,delayed 40 mg PO DAILY PRN Nausea #90 tabs 11/24/24 01/20/25 Rx release amlodipine 5 mg tablet See Rx Instructions .Route 01/04/25 01/20/25 Rx .COMPLEX #90 tabs lubiprostone 24 mcg capsule See Rx Instructions .Route 01/04/25 01/20/25 Rx .COMPLEX #60 caps topiramate 25 mg sprinkle capsule 50 mg (2 x 25 mg) PO BID #360 caps 01/12/25 01/20/25 Rx (Topamax) Allergies Allergy/AdvReac Type Severity Reaction Status Date / Time hydralazine Allergy Severe Itching Verified 01/26/25 08:26 latex Allergy Severe itching Verified 01/26/25 08:26 metoclopramide Allergy Severe Redness of Verified 01/26/25 08:26 Skin Vital Signs Vital Signs - 24 hr 01/27/25 12:00 01/27/25 12:04 01/27/25 13:04 Temperature 38.4 C H 38.4 C H Pulse Rate 96 Respiratory Rate Blood Pressure Pulse Oximetry Oxygen Delivery Oxygen Flow Rate Fraction of Inspired Oxygen 01/27/25 13:58 01/27/25 14:00 01/27/25 16:00 Temperature 37.2 C 39.3 C H Pulse Rate 99 82 Respiratory Rate 20 Blood Pressure 177/84 H Pulse Oximetry 92 Oxygen Delivery Oxygen Flow Rate Fraction of Inspired Oxygen 01/27/25 20:00 01/27/25 22:00 01/28/25 00:00 Temperature 37.4 C Pulse Rate 78 79 100 Respiratory Rate 22 H Blood Pressure 138/74 Pulse Oximetry 93 Oxygen Delivery Oxygen Flow Rate Fraction of Inspired Oxygen 01/28/25 04:00 01/28/25 07:14 01/28/25 08:00 Temperature Pulse Rate 96 Respiratory Rate Blood Pressure Pulse Oximetry 92 92 Oxygen Delivery Nasal Cannula Nasal Cannula Oxygen Flow Rate 4 2 Fraction of Inspired Oxygen 36 01/28/25 08:00 Temperature Pulse Rate 86 Respiratory Rate Blood Pressure Pulse Oximetry Oxygen Delivery Oxygen Flow Rate Fraction of Inspired Oxygen Exam 2 Const: General: comfortable, no acute distress, alert and awake O rientation/consciousness: patient oriented x3 Other: Morbidly obese HENMT: Head: normal to inspection Eyes: Pupils: Equal, round and reactive pupils present Neck: Neck: normal visual inspection and supple Carotids: normal carotid upstroke Chest: Other: Chest wall tenderness to palpation Resp: Effort & Inspection: normal respiratory effort Auscultation: not clear to auscultation bilaterally and crackles Cardio: Rate: regular rate Rhythm: regular rhythm Heart sounds: S1 normal heart sound present, S2 normal heart sound present and Murmur heart sound present systolic GI: Auscultation: normal bowel sounds Skin: General skin exam: normal color Neuro: General: patient oriented x3 Cranial nerves: Yes Equal, round and reactive pupils present Extrem: General: normal to inspection Psych: Appearance: grossly normal Mental Status: mental status grossly normal Results Labs and Meds 01/28/25 06:14 01/28/25 06:14 Lab results: Cardiac Enzymes 01/28/25 Range/Units 06:14 AST 13 L (14-36) U/L CBC 01/28/25 Range/Units 06:14 WBC 11.7 H (4.5-10.0) K/mm3 RBC 3.15 L (4.2-5.4) M/mm3 Hgb 9.0 L (12.0-15.0) g/dL Hct 29.5 L (37.0-47.0) % Plt Count 181 (150-375) k/mm3 Comprehensive Metabolic Panel 01/28/25 Range/Units 06:14 Sodium 138 (137-145) mmol/L Potassium 3.6 (3.4-5.0) mmol/L Chloride 110 H (98-107) mmol/L Carbon Dioxide 21 L (22-30) mmol/L BUN 33 H (7-17) mg/dL Creatinine 2.84 H (0.7-1.0) mg/dL Glucose 179 H (65-110) mg/dL Calcium 9.6 (8.4-10.2) mg/dL AST 13 L (14-36) U/L ALT 12 (6-35) U/L Alkaline Phosphatase 86 (38-126) U/L Total Protein 6.0 L (6.3-8.2) g/dL Albumin 3.2 L (3.5-5.1) g/dL Intake and Output 01/27/25 01/28/25 01/28/25 23:59 07:59 15:59 Intake Total 400 Output Total 451 Balance -51 Intake: Oral 400 Output: Urine 450 Stool 1 Other: # Unmeasured Voids 1 Number of Bowel Movements Today 1
[2025-01-28] MEDS: TOPIRAMATE 25 MG TABLET 50 MG PO ×2 (09:22→16:21)
[2025-01-28] MEDS: METOPROLOL SUCCINATE EXT REL 50 MG TABCR BY MOUTH (09:23)
[2025-01-28] MEDS: amLODIPine BESYLATE 5 MG TABLET BY MOUTH ×2 (09:23→16:21)
[2025-01-28] MEDS: ALPRAZolam (*CRX) 0.5 MG TABLET PO ×3 (09:23→16:21)
[2025-01-28] MEDS: LUBIPROSTONE 24 MCG CAPSULE BY MOUTH ×2 (09:23→16:21)
[2025-01-28] MEDS: PIOGLITAZONE HCL 15 MG TAB PO (09:23)
[2025-01-28] MEDS: ACYCLOVIR 400 MG TABLET PO ×2 (09:23→16:21)
[2025-01-28] MEDS: CHOLECALCIFEROL 5,000 UNITS TABLET 5000 UNITS PO (09:23)
[2025-01-28] MEDS: ENOXAPARIN 40 MG/0.4 ML SYRINGE SUB-Q (09:23)
[2025-01-28] MEDS: MECLIZINE HCL 25 MG TABLET PO ×4 (09:23→20:49)
[2025-01-28] MEDS: SERTRALINE HCL 50 MG TABLET 100 MG PO (09:23)
[2025-01-28] MEDS: INSULIN GLARGINE (*BKC) 100 UNITS/ML 38 UNITS SUB-Q (09:24)
--- NOTE | 2025-01-28 09:46 | PCNWS ---
Weekly nutritional screen. Patient is tolerating current diet with varied intake, 40-100%. Low fiber, diabetic consistent carbs, fluid restriction 2000 ml/day. Glucerna BID 220 kcal, 10 g protein each. No weight loss reported. No nutritional needs at this time.
--- NOTE | 2025-01-28 10:00 | P.PNIM_ITS ---
Progress Note: A&P Assessment and Plan (1) Acute on chronic renal failure: Code(s): N17.9 - Acute kidney failure, unspecified; N18.9 - Chronic kidney disease, unspecified Status: Acute Assessment and Plan: Holding fluid due to volume overload monitor (2) Dehydration: Code(s): E86.0 - Dehydration Status: Acute Assessment and Plan: Currently patient is volume overload and holding fluid (3) Diarrhea: Code(s): R19.7 - Diarrhea, unspecified Status: Acute Assessment and Plan: C diff negative Stool culture pending Holding fluid due to volume overload Will start Loperamide if stool culture is negative Patient had spikes of fever. Negative blood culture and pending urine culture Started on ceftriaxone CT abdomen/chest/pelvis reviewed Continue monitoring stool cultures (4) Irritable bowel syndrome with constipation: Code(s): K58.1 - Irritable bowel syndrome with constipation Status: Acute Assessment and Plan: Lubiprostone on hold (5) Insulin dependent diabetes mellitus: Status: Chronic Assessment and Plan: Diabetic diet Accu-Cheks a.c. HS Lantus and actos reordered SSI (6) Hypertension: Code(s): I10 - Essential (primary) hypertension Status: Acute Assessment and Plan: Will titrate as needed (7) Leukocytosis: Code(s): D72.829 - Elevated white blood cell count, unspecified Status: Acute Assessment and Plan: Remains febrile Started on ceftriaxone Blood culture negative Pending urine culture Reviewed CT chest abdomen pelvis Plan DVT prophylaxis on Sq Lovenox Subjective Date/time seen: 01/28/25 10:00 Interval history: Interval history:Patient has a complicated course of hospitalization. Patient has a CKD and IBS. Currently holding Bumex, losartan, spironolactone. Unfortunately patient is volume overloaded which is evident in the CT scan including pleural effusion and pericardial effusion. CT scan was performed due to elevated leukocytosis and febrile. Patient does has symptoms of UTI but UA shows no leukocyte esterase or nitrates. Ordered urine culture and blood culture. Echo was performed on 01/25/2025 which shows the ejection fraction 65- 70%. [id number] a posteriorly located pericardial effusion and otherwise trees out circumferentially. Given 1 dose of Bumex today. Holding fluids due to fluid overload. Will start the patient on ceftriaxone and consulted Cardiology as well for pericardial effusion. Of note C diff is negative. Ordered stool studies. 02/01: Creatinine continues to trend up. Started on ceftriaxone. Blood culture shows no growth till date. Pending stool studies.Order thoracentesis with pleural fluid studies. Will hold Lovenox. Cardiology evaluated the patient and reports pericarditis on the least differential and advised outpatient stress test. Will call [facility] to initiate transfer. Review of Systems Review of Systems: 12 systems were reviewed and are negativ e except for as per HPI. Exam Narrative: General: well appearing, appears stated age. HEENT: normocephalic, atraumatic. Mucous membranes moist. EOMI, PERRLA, bilateral sclera anicteric, no conjunctival injection. Neck supple without JVD, lymphadenopathy, or bruit. Respiratory: clear to ascultation bilaterally. No rales/rhonic/wheezes. Cardiovascular: Regular rate and rhythm, normal S1-S2 upon ascultation. No murmurs, rubs, or clicks. PMI is nondisplaced, capillary refill less than 3 second. Abdomen: Soft, round, no pulsatile masses, nondistended and nontender. No rebound, no guarding. No CVA tenderness, no hepatosplenomegaly. Bowel sounds present to all four quadrants. No high pitch or tinkling sounds, resonant to percussion. Extremities: No cyanosis, clubbing, or edema present. Pulses are palpable 2/2. Active ROM to all four extremities. Neuro: Alert and orientated x 4. PERRLA. Cranial nerves 2-12 intact without focal deficit. Skin: Warm, dry, and intact, without rash, erythema, or lesion. Psych: pleasant, cooperative, normal speech, normal affect, no hallucinations, no dysarthia Objective Data Vital Signs Vital Signs: Vital Signs - 24 hr 01/27/25 12:00 01/27/25 12:04 01/27/25 13:04 Temperature 101.1 F H 101.2 F H Pulse Rate 96 Respiratory Rate Blood Pressure Pulse Oximetry Oxygen Delivery Oxygen Flow Rate Fraction of Inspired Oxygen 01/27/25 13:58 01/27/25 14:00 01/27/25 16:00 Temperature 98.9 F 102.7 F H Pulse Rate 99 82 Respiratory Rate 20 Blood Pressure 177/84 H Pulse Oximetry 92 Oxygen Delivery Oxygen Flow Rate Fraction of Inspired Oxygen 01/27/25 20:00 01/27/25 22:00 01/28/25 00:00 Temperature 99.4 F Pulse Rate 78 79 100 Respiratory Rate 22 H Blood Pressure 138/74 Pulse Oximetry 93 Oxygen Delivery Oxygen Flow Rate Fraction of Inspired Oxygen 01/28/25 04:00 01/28/25 07:14 01/28/25 08:00 Temperature Pulse Rate 96 Respiratory Rate Blood Pressure Pulse Oximetry 92 92 Oxygen Delivery Nasal Cannula Nasal Cannula Oxygen Flow Rate 4 2 Fraction of Inspired Oxygen 36 01/28/25 08:00 Temperature Pulse Rate 86 Respiratory Rate Blood Pressure Pulse Oximetry Oxygen Delivery Oxygen Flow Rate Fraction of Inspired Oxygen Intake/Output Intake/Output: Intake & Output 01/25/25 01/26/25 01/27/25 01/28/25 23:59 23:59 23:59 23:59 Intake Total 3520 2647.5 600 Output Total 851 Balance 3520 2647.5 -251 Meds/Results Medications: Active Medications Generic Name Dose Route Start Last Admin Trade Name Freq PRN Reason Stop Dose Admin Acetaminophen 650 mg 01/20/25 13:52 01/28/25 01:50 Acetaminophen 325 Mg Tablet PO 650 mg Q6H PRN Administration Mild Pain (1-3) or Fever Acyclovir 400 mg 01/20/25 20:15 01/28/25 09:23 Acyclovir 400 Mg Tablet PO 400 mg BID SANTHOSH Administration Alprazolam 0.5 mg 01/20/25 20:15 01/28/25 09:23 Alprazolam (*Crx) 0.5 Mg Tablet PO 0.5 mg TID SANTHOSH Administration Amitriptyline HCl 50 mg 01/20/25 20:15 01/27/25 20:40 Amitriptyline Hcl 25 Mg Tablet PO 50 mg HS [facility]TH[facility]H Administration Amlodipine Besylate 5 mg 01/23/25 17:00 01/28/25 09:23 Amlodipine Besylate 5 Mg Tablet BY MOUTH 5 mg BID SANTHOSH Administration Atorvastatin Calcium 20 mg 01/20/25 20:15 01/27/25 20:41 Atorvastatin 10 Mg Tablet PO 20 mg QHS SANTH[facility]H Administration Bumetanide 1 mg 01/22/25 09:00 01/23/25 09:43 Bumetanide 1 Mg Tablet PO Not Given BID SANTHOSH Belladonna Alkaloids/ 0 ml 01/23/25 02:02 01/26/25 13:31 Phenobarbital 10 ml/ Al Hydrox PO 55 ml /Mg Hydrox/Simethicone 30 ml/ Q4H PRN Administration Lidocaine HCl 10 ml Heartburn Dextrose 12.5 gm 01/20/25 13:52 Dextrose 50% 25 Gm/50 Ml Syringe IV PUSH PRN PRN Hypoglycemia Protocol Dicyclomine HCl 20 mg 01/21/25 12:30 01/26/25 20:29 Dicyclomine Hcl 10 Mg Capsule PO 20 mg QID PRN Administration Abdominal Cramping Docusate Sodium 100 mg 01/21/25 09:00 01/24/25 09:32 Docusate Sodium 100 Mg Capsule PO Not Given DAILY SANTHOSH Enoxaparin Sodium 40 mg 01/21/25 09:00 01/28/25 09:23 Enoxaparin 40 Mg/0.4 Ml Syringe SUB-Q 40 mg DAILY [facility]TH[facility]H Administration Glucagon 1 mg 01/20/25 13:52 Glucagon For Inj 1 Mg Vial IM PRN PRN Hypoglycemia Protocol Glucose 15 gm 01/20/25 13:52 Glucose Oral Gel 15 Gm Of Glucse In 37.5 Gm Tube PO PRN PRN Hypoglycemia Protocol Dextrose 1,000 mls @ 100 mls/hr 01/20/25 13:52 Dextrose 5% 1,000 Ml IVPB PRN PRN Hypoglycemia Protocol Sodium Chloride 1,000 mls @ 50 mls/hr 01/23/25 08:15 01/26/25 05:59 Normal Saline Iv IV CONT 50 mls/hr .Q20H [facility]TH[facility] Administration Ceftriaxone Sodium 2 gm in 100 mls @ 200 mls/hr 01/27/25 17:00 01/27/25 17:11 Rocephin 2 Gm/Ns 100 Ml IVPB 200 mls/hr Q24H [facility] Administration Insulin Aspart 3 - 6 units 01/20/25 17:00 01/28/25 08:33 Insulin Aspart (*Bkc) 100 Units/Ml SUB-Q Not Given TIDWM [facility] Protocol Insulin Aspart 1 - 3 units 01/20/25 21:00 01/27/25 21:25 Insulin Aspart (*Bkc) 100 Units/Ml SUB-Q Not Given HS [facility] Protocol Insulin Glargine 38 units 01/20/25 21:00 01/28/25 09:24 Insulin Glargine (*Bkc) 100 Units/Ml SUB-Q 38 units Q12HR [facility]TH[facility]H Administration Losartan Potassium 100 mg 01/21/25 09:00 01/23/25 09:23 Losartan Potassium 100 Mg Tablet PO 100 mg DAILY [facility]TH[facility]H Administration Lubiprostone 24 mcg 01/20/25 20:05 01/28/25 09:23 Lubiprostone 24 Mcg Capsule BY MOUTH 24 mcg BID SANTHOSH Administration Meclizine HCl 25 mg 01/25/25 09:00 01/28/25 09:23 Meclizine Hcl 25 Mg Tablet PO 25 mg QID [facility]TH[facility] Administration Metoprolol Succinate 50 mg 01/21/25 09:00 01/28/25 09:23 Metoprolol Succinate Ext Rel 50 Mg Tabcr BY MOUTH 50 mg DAILY [facility]TH[facility]H Administration Ondansetron HCl 4 mg 01/20/25 12:30 01/27/25 09:16 Ondansetron Inj 4 Mg/2 Ml Vial IV PUSH 4 mg Q4H PRN Administration Nausea Pantoprazole Sodium 40 mg 01/20/25 20:04 01/27/25 05:32 Pantoprazole 40 Mg Tablet PO 40 mg DAILY PRN Administration Nausea Perflutren Lipid Microsphere 0 ml 01/27/25 14:34 Perflutren Lipid Microspheres 1.5 Ml Vial Diluted To 10 Ml Total Volume IV PUSH 01/30/25 14:35 ONCE PRN adequate visualization Protocol Pioglitazone HCl 15 mg 01/21/25 09:00 01/28/25 09:23 Pioglitazone Hcl 15 Mg Tab PO 15 mg DAILY [facility]TH[facility] Administration Prazosin HCl 2 mg 01/20/25 21:00 01/27/25 20:41 Prazosin Hcl 1 Mg Capsule PO 2 mg HS [facility]H Administration Sertraline HCl 100 mg 01/21/25 09:00 01/28/25 09:23 Sertraline Hcl 50 Mg Tablet PO 100 mg DAILY [facility] Administration Spironolactone 25 mg 01/22/25 09:00 01/23/25 09:43 Spironolactone 25 Mg Tablet PO Not Given DAILY [facility]TH[facility]H Sucralfate 1 gm 01/22/25 21:50 01/28/25 06:28 Sucralfate 1 Gm Tablet PO 1 gm ACHS [facility]TH[facility]H Administration Topiramate 50 mg 01/20/25 20:15 01/28/25 09:22 Topiramate 25 Mg Tablet PO 50 mg BID [facility]TH[facility]H Administration Trazodone HCl 50 mg 01/20/25 21:00 01/27/25 20:41 Trazodone Hcl 50 Mg Tablet PO 50 mg HS [facility] Administration Trimethobenzamide HCl 200 mg 01/22/25 20:22 01/27/25 22:34 Trimethobenzamide Hcl 200 Mg/2 Ml Vial IM 200 mg Q6H PRN Administration Nausea And Vomiting Vitamin D 5,000 units 01/21/25 09:00 01/28/25 09:23 Cholecalciferol 5,000 Units Tablet PO 5,000 units DAILY [facility]TH[facility] Administration Zolpidem Tartrate 10 mg 01/20/25 20:04 01/28/25 00:35 Zolpidem Tartrate (*Crx) 5 Mg Tablet PO 10 mg HS PRN Administration Insomnia Radiology Results: ITS Impressions Abdomen X-Ray 01/22/25 21:28 IMPRESSION: NO ACUTE ABDOMINAL FINDINGS. Renal Ultrasound 01/24/25 11:06 Impression: 1: Unremarkable renal ultrasound. No stones, masses or hydronephrosis. Abdomen/Pelvis CT 01/25/25 11:18 Impression: No acute abnormality seen. Chest X-Ray 01/26/25 17:29 IMPRESSION: Bibasilar consolidation, as detailed above. Chest/Abdomen/Pelvis CT 01/27/25 11:15 Impression: Probable minimal alveolar and interstitial pulmonary edema with minimal pleural fluid and left basilar atelectatic change. Small to moderate pericardial effusion. No significant findings in the abdomen or pelvis. Labs Labs: Laboratory Results - last 24 hr 01/27/25 01/27/25 01/27/25 11:21 15:03 16:32 WBC RBC Hgb Hct MCV MCH MCHC RDW Plt Count MPV Sodium Potassium Chloride Carbon Dioxide Anion Gap BUN Creatinine Estim Creat Clear Calc Estimated GFR Glucose POC Capillary Glucose 163 H 203 H Calcium Total Bilirubin AST ALT Alkaline Phosphatase NT-Pro-B Natriuret Pep 3900 H Total Protein Albumin Influenza A (RT-PCR) Influenza B (RT-PCR) RSV (RT-PCR) SARS-CoV-2 RNA (RT-PCR) 01/27/25 01/27/25 01/28/25 18:32 21:02 06:14 WBC 11.7 H RBC 3.15 L Hgb 9.0 L Hct 29.5 L MCV 93.7 MCH 28.6 MCHC 30.5 L RDW 13.0 Plt Count 181 MPV 10.6 H Sodium 138 Potassium 3.6 Chloride 110 H Carbon Dioxide 21 L Anion Gap 7 BUN 33 H Creatinine 2.84 H Estim Creat Clear Calc 32 Estimated GFR 18 L Glucose 179 H POC Capillary Glucose 105 Calcium 9.6 Total Bilirubin 0.5 AST 13 L ALT 12 Alkaline Phosphatase 86 NT-Pro-B Natriuret Pep Total Protein 6.0 L Albumin 3.2 L Influenza A (RT-PCR) Negative Influenza B (RT-PCR) Negative RSV (RT-PCR) Negative SARS-CoV-2 RNA (RT-PCR) Negative 01/28/25 07:38 WBC RBC Hgb Hct MCV MCH MCHC RDW Plt Count MPV Sodium Potassium Chloride Carbon Dioxide Anion Gap BUN Creatinine Estim Creat Clear Calc Estimated GFR Glucose POC Capillary Glucose 142 H Calcium Total Bilirubin AST ALT Alkaline Phosphatase NT-Pro-B Natriuret Pep Total Protein Albumin Influenza A (RT-PCR) Influenza B (RT-PCR) RSV (RT-PCR) SARS-CoV-2 RNA (RT-PCR) Quality VTE Prophylaxis VTE prophylaxis: pharmacologic ordered Hospitalist MIPS Advance Care Plan I have confirmed that the patient's Advanced Care Plan is present, code status is documented, or surrogate decision maker is listed in patient medical record.: Yes Medication Reconciliation I have utilized all available resources to obtain, update and review the patients current medications (includes all prescriptions, OTC, herbals, cannabis, and nutritional supplements).: Yes
--- NOTE | 2025-01-28 10:45 | ECG_ITS ---
Test Date: 2025-01-28 11:37:29 Measurements Intervals [place] Rate: 99 P: 0 NE: 0 QRS: -67 QRSD: 132 T: 103 QT: 399 QTc: 514 Interpretive Statements SINUS RHYTHM WITH FREQUENT ATRIAL PREMATURE COMPLEXES BORDERLINE AV CONDUCTION DELAY LEFT BUNDLE BRANCH BLOCK BASELINE ARTIFACT- AVR, V1, V3 ABNORMAL ECG Compared to ECG 01/23/2025 11:41:21 ATRIAL PREMATURE COMPLEXES NOW PRESENT Electronically Signed On 01-28-2025 11:52:22 CDT by Betito Huber D.O.
[2025-01-28 11:30] LABS: Glucose Point of Care 140 mg/dl (65-105)
[2025-01-28 11:46] LABS: Add Urine Microscopic? YES; Appearance Urine Clear (Clear); Bacteria Urine None Seen /hpf; Bilirubin Urine Negative (Negative); Blood Urine Negative (Negative); Color Urine Yellow (Yellow); Glucose Urine UA Trace mg/dL (Negative); Ketones Urine Negative (Negative); Leukocyte Esterase Ur Negative LEU/UL (Negative); Need Manual Microscopic Reviewed; Nitrate Urine Negative (Negative); Protein Urine 3+ mg/dL (Negative); RBC Urine 0-2 /hpf (0-2); Specific Grav Ur 1.013 (1.001-1.035); Squamous Epithelial Cell Urine Occasional /hpf (Few); Urobilinogen Urine 0.2 mg/dL (<2.0); WBC Urine 0-5 /hpf (0-3); pH Urine 5.5 (5.0-9.0)
[2025-01-28 12:34] LABS: Erythrocyte Sedimentation Rate > 140 mm/hr (0-20)
[2025-01-28 12:35] LABS: CRP 14.1 mg/dL (<1.0); Troponin I 0.022 ng/mL (0.000-0.034)
--- NOTE | 2025-01-28 13:02 | P.PNNP_ITS ---
Progress Note: A&P Assessment and Plan (1) Acute kidney injury: Code(s): N17.9 - Acute kidney failure, unspecified Status: Acute Assessment and Plan: * as noted on admission (with a creatinine of 2.94mg/dl) * suspect due to prerenal factors (poor oral intake + diarrhea) along with continued use of diuretics prior to admission * initial improvement noted with IVF hydration and holding diuretics * now complicated by possible infection/high fevers along with volume overload * evaluation to date noted: * CT A/P without evidence of obstruction * renal ultrasound normal * UA noted * urine electrolytes non-prerenal * nephrotic range proteinuria * urine eosinophils negative * CPK low * monitor volume status * may need continue PRN IV diuretics... * follow trend of repeat labs and UOP (2) Chronic kidney disease, stage IV (severe): Code(s): N18.4 - Chronic kidney disease, stage 4 (severe) Status: Chronic Assessment and Plan: * baseline creatinine runs ~ 2.0 - 2.5mg/dl in the last year * outpatient evaluation significant for normal renal ultrasound, negative serological profile, and nephrotic range proteinuria * CKD thought to be due to her previous bouts of LUKE/ARF along with diabetes, hypertension, and necessity of chronic diuretic therapy * diuretics are needed to keep swelling/edema (which is secondary to proteinuria) stable/controlled (3) Fever: Code(s): R50.9 - Fever, unspecified Status: Acute Assessment and Plan: * as noted * source not clear * blood culture pending * UA not convincing for UTI but has symptoms of dysuria...urine culture ordered * mildly elevated WBC noted * tylenol as needed (4) Diarrhea: Code(s): R19.7 - Diarrhea, unspecified Status: Acute Assessment and Plan: * improvement noted * as noted by history * complicated by know history of irritable bowel syndrome * stool studies negative; C. diff toxin negative as well * follow clinical symptoms (5) Metabolic acidosis: Code(s): E87.20 - Acidosis, unspecified Status: Acute Assessment and Plan: * better * presumably due to a LUKE and GI losses (diarrhea) as well as normal saline IVFs * compensated s/p sodium bicarbonate tabs (off currently) * follow trend of CO2 (6) Acute pulmonary edema: Code(s): J81.0 - Acute pulmonary edema Status: Acute Assessment and Plan: * as noted by CXR on 01/22... * no history of CHF documented * Echo results noted: * left ventricular systolic function is normal, estimated at 65-70% * left ventricular diastolic function is grade I diastolic dysfunction * mild aortic valve sclerosis. * mitral valve has mildly calcified annulus * small to moderate posteriorly located pericardial effusion andotherwise trace amount circumferentially * PRN IV diuretics * follow respiratory status (7) Hypertension: Code(s): I10 - Essential (primary) hypertension Status: Acute Assessment and Plan: * reasonable control * on metoprolol, amlodipine, and prazosin * holding losartan given #1 * titrate amlodipine, metoprolol and prazosin as needed to compensate * follow trend of hemodynamics (8) Anemia: Code(s): D64.9 - Anemia, unspecified Status: Acute Assessment and Plan: * due to LUKE, CKD, and dilutional effect from IVFs * follow trend of H/H (9) Insulin dependent diabetes mellitus: Status: Chronic Assessment and Plan: * follow accu-cheks * glycemic control per hospitalist Will continue to follow. L Subjective Date/time seen: 01/28/25 13:02 Interval history: Follow-up for acute kidney injury/acute renal failure on chronic kidney disease. Renal function/creatinine a bit worse and now with evidence of volume overload by imaging and exam; culture data still pending but empirically started on antibiotics; dosed with IV bumex yesterday; now requiring supplemental oxygen at the time of my visit; still having on and off fevers as well (without clear source). Exam 2 Narrative: General: WD/WN female in NAD Heart: normal S1 and S2; no rub Lungs: clear to auscultation Abdomen: soft, nontender, nondistended, positive bowel sounds Extremities: no cyanosis or clubbing; 1+ edema Skin: no nodules Objective Data Vital Signs Vital Signs: Vital Signs Temp Pulse Resp BP Pulse Ox O2 Del Method O2 Flow Rate 01/28/25 13:00 99.9 F H 95 21 H 165/77 H 92 01/28/25 12:00 94 01/28/25 08:00 86 01/28/25 08:00 92 Nasal Cannula 2 01/28/25 07:14 92 Nasal Cannula 4 01/28/25 04:00 96 01/28/25 00:00 100 01/27/25 22:00 99.4 F 79 22 H 138/74 93 01/27/25 20:00 78 01/27/25 16:00 82 Intake/Output Intake/Output: Intake & Output 01/25/25 01/26/25 01/27/25 01/28/25 23:59 23:59 23:59 23:59 Intake Total 3520 2647.5 700 320 Output Total 851 1100 Balance 3520 2647.5 -857 -731 Meds/Results Medications: Active Medications Generic Name Dose Route Start Last Admin Trade Name Freq PRN Reason Stop Dose Admin Acetaminophen 650 mg 01/20/25 13:52 01/28/25 13:11 Acetaminophen 325 Mg Tablet PO 650 mg Q6H PRN Administration Mild Pain (1-3) or Fever Acyclovir 400 mg 01/20/25 20:15 01/28/25 09:23 Acyclovir 400 Mg Tablet PO 400 mg BID SANTHOSH Administration Alprazolam 0.5 mg 01/20/25 20:15 01/28/25 12:20 Alprazolam (*Crx) 0.5 Mg Tablet PO 0.5 mg TID SANTHOSH Administration Amitriptyline HCl 50 mg 01/20/25 20:15 01/27/25 20:40 Amitriptyline Hcl 25 Mg Tablet PO 50 mg HS [facility]TH[facility]H Administration Amlodipine Besylate 5 mg 01/23/25 17:00 01/28/25 09:23 Amlodipine Besylate 5 Mg Tablet BY MOUTH 5 mg BID SANTHOSH Administration Atorvastatin Calcium 20 mg 01/20/25 20:15 01/27/25 20:41 Atorvastatin 10 Mg Tablet PO 20 mg QHS SANTH[facility]H Administration Bumetanide 1 mg 01/22/25 09:00 01/23/25 09:43 Bumetanide 1 Mg Tablet PO Not Given BID SANTHOSH Belladonna Alkaloids/ 0 ml 01/23/25 02:02 01/26/25 13:31 Phenobarbital 10 ml/ Al Hydrox PO 55 ml /Mg Hydrox/Simethicone 30 ml/ Q4H PRN Administration Lidocaine HCl 10 ml Heartburn Dextrose 12.5 gm 01/20/25 13:52 Dextrose 50% 25 Gm/50 Ml Syringe IV PUSH PRN PRN Hypoglycemia Protocol Dicyclomine HCl 20 mg 01/21/25 12:30 01/26/25 20:29 Dicyclomine Hcl 10 Mg Capsule PO 20 mg QID PRN Administration Abdominal Cramping Docusate Sodium 100 mg 01/21/25 09:00 01/24/25 09:32 Docusate Sodium 100 Mg Capsule PO Not Given DAILY [facility]TH[facility]H Enoxaparin Sodium 40 mg 01/21/25 09:00 01/28/25 09:23 Enoxaparin 40 Mg/0.4 Ml Syringe SUB-Q 40 mg DAILY [facility]TH[facility]H Administration Glucagon 1 mg 01/20/25 13:52 Glucagon For Inj 1 Mg Vial IM PRN PRN Hypoglycemia Protocol Glucose 15 gm 01/20/25 13:52 Glucose Oral Gel 15 Gm Of Glucse In 37.5 Gm Tube PO PRN PRN Hypoglycemia Protocol Dextrose 1,000 mls @ 100 mls/hr 01/20/25 13:52 Dextrose 5% 1,000 Ml IVPB PRN PRN Hypoglycemia Protocol Sodium Chloride 1,000 mls @ 50 mls/hr 01/23/25 08:15 01/26/25 05:59 Normal Saline Iv IV CONT 50 mls/hr .Q20H [facility]TH[facility] Administration Ceftriaxone Sodium 2 gm in 100 mls @ 200 mls/hr 01/27/25 17:00 01/27/25 17:41 Rocephin 2 Gm/Ns 100 Ml IVPB Infused Q24H [facility]TH[facility] Infusion Insulin Aspart 3 - 6 units 01/20/25 17:00 01/28/25 11:33 Insulin Aspart (*Bkc) 100 Units/Ml SUB-Q Not Given TIDWM [facility] Protocol Insulin Aspart 1 - 3 units 01/20/25 21:00 01/27/25 21:25 Insulin Aspart (*Bkc) 100 Units/Ml SUB-Q Not Given HS [facility] Protocol Insulin Glargine 38 units 01/20/25 21:00 01/28/25 09:24 Insulin Glargine (*Bkc) 100 Units/Ml SUB-Q 38 units Q12HR [facility] Administration Losartan Potassium 100 mg 01/21/25 09:00 01/23/25 09:23 Losartan Potassium 100 Mg Tablet PO 100 mg DAILY [facility] Administration Lubiprostone 24 mcg 01/20/25 20:05 01/28/25 09:23 Lubiprostone 24 Mcg Capsule BY MOUTH 24 mcg BID [facility]TH[facility]H Administration Meclizine HCl 25 mg 01/25/25 09:00 01/28/25 12:20 Meclizine Hcl 25 Mg Tablet PO 25 mg QID [facility] Administration Metoprolol Succinate 50 mg 01/21/25 09:00 01/28/25 09:23 Metoprolol Succinate Ext Rel 50 Mg Tabcr BY MOUTH 50 mg DAILY [facility]TH[facility] Administration Ondansetron HCl 4 mg 01/20/25 12:30 01/27/25 09:16 Ondansetron Inj 4 Mg/2 Ml Vial IV PUSH 4 mg Q4H PRN Administration Nausea Pantoprazole Sodium 40 mg 01/20/25 20:04 01/27/25 05:32 Pantoprazole 40 Mg Tablet PO 40 mg DAILY PRN Administration Nausea Perflutren Lipid Microsphere 0 ml 01/27/25 14:34 Perflutren Lipid Microspheres 1.5 Ml Vial Diluted To 10 Ml Total Volume IV PUSH 01/30/25 14:35 ONCE PRN adequate visualization Protocol Pioglitazone HCl 15 mg 01/21/25 09:00 01/28/25 09:23 Pioglitazone Hcl 15 Mg Tab PO 15 mg DAILY [facility] Administration Prazosin HCl 2 mg 01/20/25 21:00 01/27/25 20:41 Prazosin Hcl 1 Mg Capsule PO 2 mg HS [facility]TH[facility] Administration Sertraline HCl 100 mg 01/21/25 09:00 01/28/25 09:23 Sertraline Hcl 50 Mg Tablet PO 100 mg DAILY [facility] Administration Spironolactone 25 mg 01/22/25 09:00 01/23/25 09:43 Spironolactone 25 Mg Tablet PO Not Given DAILY [facility]TH[facility]H Sucralfate 1 gm 01/22/25 21:50 01/28/25 11:43 Sucralfate 1 Gm Tablet PO 1 gm ACHS [facility]TH[facility]H Administration Topiramate 50 mg 01/20/25 20:15 01/28/25 09:22 Topiramate 25 Mg Tablet PO 50 mg BID [facility]TH[facility]H Administration Trazodone HCl 50 mg 01/20/25 21:00 01/27/25 20:41 Trazodone Hcl 50 Mg Tablet PO 50 mg HS [facility] Administration Trimethobenzamide HCl 200 mg 01/22/25 20:22 01/27/25 22:34 Trimethobenzamide Hcl 200 Mg/2 Ml Vial IM 200 mg Q6H PRN Administration Nausea And Vomiting Vitamin D 5,000 units 01/21/25 09:00 01/28/25 09:23 Cholecalciferol 5,000 Units Tablet PO 5,000 units DAILY [facility]TH[facility]H Administration Zolpidem Tartrate 10 mg 01/20/25 20:04 01/28/25 00:35 Zolpidem Tartrate (*Crx) 5 Mg Tablet PO 10 mg HS PRN Administration Insomnia Radiology Results: ITS Impressions Abdomen X-Ray 01/22/25 21:28 IMPRESSION: NO ACUTE ABDOMINAL FINDINGS. Renal Ultrasound 01/24/25 11:06 Impression: 1: Unremarkable renal ultrasound. No stones, masses or hydronephrosis. Abdomen/Pelvis CT 01/25/25 11:18 Impression: No acute abnormality seen. Chest X-Ray 01/26/25 17:29 IMPRESSION: Bibasilar consolidation, as detailed above. Chest/Abdomen/Pelvis CT 01/27/25 11:15 Impression: Probable minimal alveolar and interstitial pulmonary edema with minimal pleural fluid and left basilar atelectatic change. Small to moderate pericardial effusion. No significant findings in the abdomen or pelvis. Labs Labs: Laboratory Tests 01/28/25 06:14 01/28/25 06:14 Calcium 9.6 Total Bilirubin 0.5 AST 13 L ALT 12 Alkaline Phosphatase 86 Total Protein 6.0 L Albumin 3.2 L Microbiology 01/26/25 18:56 Blood Blood Culture - Preliminary 01/26/25 19:09 Blood Blood Culture - Preliminary
[2025-01-28] MEDS: cefTRIAXone 2 GM/NS 100 ML 2 GM/100 ML BAG IVPB (16:17)
[2025-01-28 17:02] LABS: Glucose Point of Care 173 mg/dl (65-105)
[2025-01-28] MEDS: AMITRIPTYLINE HCL 25 MG TABLET 50 MG PO (20:49)
[2025-01-28] MEDS: traZODone HCL 50 MG TABLET PO (20:49)
[2025-01-28] MEDS: PRAZOSIN HCL 1 MG CAPSULE 2 MG PO (20:49)
[2025-01-28] MEDS: ATORVASTATIN 10 MG TABLET 20 MG PO (20:49)
[2025-01-28 21:13] LABS: Glucose Point of Care 134 mg/dl (65-105)
[2025-01-29] VITALS: PULSE 92
[2025-01-29 04:00] VITALS: PULSE 92
[2025-01-29 05:41] LABS: Hemoglobin 9.1 g/dL (12.0-15.0); Mean Corpuscular HGB Conc 30.3 g/dl (32-36); Mean Corpuscular Hemoglobin 28.7 pg (26-34); Mean Corpuscular Volume 94.6 fl (80-100); Platelet Count Result 207 k/mm3 (150-375); Red Blood Count 3.17 M/mm3 (4.2-5.4); Red Cell Distribution Width 12.8 % (11.5-14.5); White Blood Count 10.2 K/mm3 (4.5-10.0)
[2025-01-29 05:48] LABS: Alanine Aminotransferase 13 U/L (6-35); Albumin Level 3.1 g/dL (3.5-5.1); Alkaline Phosphatase 93 U/L (38-126); Anion Gap 9 mmol/L (4-12); Aspartate Amino Transferase 12 U/L (14-36); Bilirubin,Total 0.3 mg/dL (0.2-1.3); Blood Urea Nitrogen 33 mg/dL (7-17); Calcium 9.5 mg/dL (8.4-10.2); Carbon Dioxide 20 mmol/L (22-30); Chloride 109 mmol/L (98-107); Estimated CRCL calculation 36 ml/min; Estimated Glomerular Filt Rate 20; Glucose 186 mg/dL (65-110); Potassium 3.9 mmol/L (3.4-5.0); Sodium 138 mmol/L (137-145)
[2025-01-29 06:00] VITALS: BP 149/72; PULSE 81; RESP 20; TEMP 36.9; O2SAT 95
[2025-01-29 06:07] LABS: Prothrombin Time 14.1 Seconds (11.1-14.7)
[2025-01-29 06:08] LABS: Partial Thromboplastin Time 35.2 Seconds (22.3-36.8)
--- NOTE | 2025-01-29 07:48 | P.PNIM_ITS ---
Progress Note: A&P Assessment and Plan (1) Acute on chronic renal failure: Code(s): N17.9 - Acute kidney failure, unspecified; N18.9 - Chronic kidney disease, unspecified Status: Acute Assessment and Plan: Holding fluid due to volume overload monitor (2) Dehydration: Code(s): E86.0 - Dehydration Status: Acute Assessment and Plan: Currently patient is volume overload and holding fluid (3) Diarrhea: Code(s): R19.7 - Diarrhea, unspecified Status: Acute Assessment and Plan: C diff negative Stool culture pending Holding fluid due to volume overload Will start Loperamide if stool culture is negative Patient had spikes of fever. Negative blood culture and pending urine culture Started on ceftriaxone CT abdomen/chest/pelvis reviewed Continue monitoring stool cultures (4) Irritable bowel syndrome with constipation: Code(s): K58.1 - Irritable bowel syndrome with constipation Status: Acute Assessment and Plan: Lubiprostone on hold (5) Insulin dependent diabetes mellitus: Status: Chronic Assessment and Plan: Diabetic diet Accu-Cheks a.c. HS Lantus and actos reordered SSI (6) Hypertension: Code(s): I10 - Essential (primary) hypertension Status: Acute Assessment and Plan: Will titrate as needed (7) Leukocytosis: Code(s): D72.829 - Elevated white blood cell count, unspecified Status: Acute Assessment and Plan: Remains febrile Started on ceftriaxone Blood culture negative Pending urine culture Reviewed CT chest abdomen pelvis Plan DVT prophylaxis on Sq Lovenox Subjective Date/time seen: 01/29/25 07:48 Interval history: Patient has a spikes of fever. Unable to find the source of infection. CT chest/abdomen/pelvis no significant finding other than the indication of volume overload. Blood culture negative and UA shows no significant finding. Patient is currently on ceftriaxone. Called [facility] and accepted at [facility] by . Review of Systems Review of Systems: 12 systems were reviewed and are negativ e except for as per HPI. Exam Narrative: General: well appearing, appears stated age. HEENT: normocephalic, atraumatic. Mucous membranes moist. EOMI, PERRLA, bilateral sclera anicteric, no conjunctival injection. Neck supple without JVD, lymphadenopathy, or bruit. Respiratory: clear to ascultation bilaterally. No rales/rhonic/wheezes. Cardiovascular: Regular rate and rhythm, normal S1-S2 upon ascultation. No murmurs, rubs, or clicks. PMI is nondisplaced, capillary refill less than 3 second. Abdomen: Soft, round, no pulsatile masses, nondistended and nontender. No rebound, no guarding. No CVA tenderness, no hepatosplenomegaly. Bowel sounds present to all four quadrants. No high pitch or tinkling sounds, resonant to percussion. Extremities: No cyanosis, clubbing, or edema present. Pulses are palpable 2/2. Active ROM to all four extremities. Neuro: Alert and orientated x 4. PERRLA. Cranial nerves 2-12 intact without focal deficit. Skin: Warm, dry, and intact, without rash, erythema, or lesion. Psych: pleasant, cooperative, normal speech, normal affect, no hallucinations, no dysarthia Objective Data Vital Signs Vital Signs: Vital Signs - 24 hr 01/28/25 08:00 01/28/25 08:00 01/28/25 12:00 Temperature Pulse Rate 86 94 Respiratory Rate Blood Pressure Pulse Oximetry 92 Oxygen Delivery Nasal Cannula Oxygen Flow Rate 2 01/28/25 14:00 01/28/25 14:42 01/28/25 16:00 Temperature 99.9 F H Pulse Rate 95 89 Respiratory Rate 21 H Blood Pressure 165/77 H Pulse Oximetry 92 79 L Oxygen Delivery Room Air Oxygen Flow Rate 01/28/25 20:00 01/28/25 20:45 01/28/25 21:28 Temperature 97.6 F Pulse Rate 79 77 Respiratory Rate 20 Blood Pressure 149/82 H Pulse Oximetry 93 91 Oxygen Delivery Nasal Cannula Oxygen Flow Rate 4 01/29/25 00:00 01/29/25 04:00 01/29/25 06:00 Temperature 98.4 F Pulse Rate 92 92 81 Respiratory Rate 20 Blood Pressure 149/72 H Pulse Oximetry 95 Oxygen Delivery Oxygen Flow Rate Intake/Output Intake/Output: Intake & Output 01/26/25 01/27/25 01/28/25 01/29/25 23:59 23:59 23:59 23:59 Intake Total 2647.5 700 657 0 Output Total 851 1500 Balance 2647.5 -151 -843 0 Meds/Results Medications: Active Medications Generic Name Dose Route Start Last Admin Trade Name Freq PRN Reason Stop Dose Admin Acetaminophen 650 mg 01/20/25 13:52 01/28/25 13:11 Acetaminophen 325 Mg Tablet PO 650 mg Q6H PRN Administration Mild Pain (1-3) or Fever Acyclovir 400 mg 01/20/25 20:15 01/28/25 16:21 Acyclovir 400 Mg Tablet PO 400 mg BID SANTHOSH Administration Alprazolam 0.5 mg 01/20/25 20:15 01/28/25 16:21 Alprazolam (*Crx) 0.5 Mg Tablet PO 0.5 mg TID SANTHOSH Administration Amitriptyline HCl 50 mg 01/20/25 20:15 01/28/25 20:49 Amitriptyline Hcl 25 Mg Tablet PO 50 mg HS SANTHOSH Administration Amlodipine Besylate 5 mg 01/23/25 17:00 01/28/25 16:21 Amlodipine Besylate 5 Mg Tablet BY MOUTH 5 mg BID SANTHOSH Administration Atorvastatin Calcium 20 mg 01/20/25 20:15 01/28/25 20:49 Atorvastatin 10 Mg Tablet PO 20 mg QHS SANTHOSH Administration Bumetanide 1 mg 01/22/25 09:00 01/23/25 09:43 Bumetanide 1 Mg Tablet PO Not Given BID [facility] Belladonna Alkaloids/ 0 ml 01/23/25 02:02 01/26/25 13:31 Phenobarbital 10 ml/ Al Hydrox PO 55 ml /Mg Hydrox/Simethicone 30 ml/ Q4H PRN Administration Lidocaine HCl 10 ml Heartburn Dextrose 12.5 gm 01/20/25 13:52 Dextrose 50% 25 Gm/50 Ml Syringe IV PUSH PRN PRN Hypoglycemia Protocol Dicyclomine HCl 20 mg 01/21/25 12:30 01/26/25 20:29 Dicyclomine Hcl 10 Mg Capsule PO 20 mg QID PRN Administration Abdominal Cramping Docusate Sodium 100 mg 01/21/25 09:00 01/24/25 09:32 Docusate Sodium 100 Mg Capsule PO Not Given DAILY [facility] Enoxaparin Sodium 40 mg 01/21/25 09:00 01/28/25 09:23 Enoxaparin 40 Mg/0.4 Ml Syringe SUB-Q 40 mg DAILY [facility] Administration Glucagon 1 mg 01/20/25 13:52 Glucagon For Inj 1 Mg Vial IM PRN PRN Hypoglycemia Protocol Glucose 15 gm 01/20/25 13:52 Glucose Oral Gel 15 Gm Of Glucse In 37.5 Gm Tube PO PRN PRN Hypoglycemia Protocol Dextrose 1,000 mls @ 100 mls/hr 01/20/25 13:52 Dextrose 5% 1,000 Ml IVPB PRN PRN Hypoglycemia Protocol Sodium Chloride 1,000 mls @ 50 mls/hr 01/23/25 08:15 01/26/25 05:59 Normal Saline Iv IV CONT 50 mls/hr .Q20H SANTHOSH Administration Ceftriaxone Sodium 2 gm in 100 mls @ 200 mls/hr 01/27/25 17:00 01/28/25 16:47 Rocephin 2 Gm/Ns 100 Ml IVPB Infused Q24H SANTH[facility] Infusion Insulin Aspart 3 - 6 units 01/20/25 17:00 01/28/25 16:52 Insulin Aspart (*Bkc) 100 Units/Ml SUB-Q Not Given TIDWM [facility] Protocol Insulin Aspart 1 - 3 units 01/20/25 21:00 01/28/25 21:55 Insulin Aspart (*Bkc) 100 Units/Ml SUB-Q Not Given HS [facility] Protocol Insulin Glargine 38 units 01/20/25 21:00 01/28/25 21:54 Insulin Glargine (*Bkc) 100 Units/Ml SUB-Q Not Given Q12HR [facility] Losartan Potassium 100 mg 01/21/25 09:00 01/23/25 09:23 Losartan Potassium 100 Mg Tablet PO 100 mg DAILY [facility] Administration Lubiprostone 24 mcg 01/20/25 20:05 01/28/25 16:21 Lubiprostone 24 Mcg Capsule BY MOUTH 24 mcg BID SANTHOSH Administration Meclizine HCl 25 mg 01/25/25 09:00 01/28/25 20:49 Meclizine Hcl 25 Mg Tablet PO 25 mg QID [facility]TH[facility] Administration Metoprolol Succinate 50 mg 01/21/25 09:00 01/28/25 09:23 Metoprolol Succinate Ext Rel 50 Mg Tabcr BY MOUTH 50 mg DAILY [facility] Administration Ondansetron HCl 4 mg 01/20/25 12:30 01/27/25 09:16 Ondansetron Inj 4 Mg/2 Ml Vial IV PUSH 4 mg Q4H PRN Administration Nausea Pantoprazole Sodium 40 mg 01/20/25 20:04 01/27/25 05:32 Pantoprazole 40 Mg Tablet PO 40 mg DAILY PRN Administration Nausea Perflutren Lipid Microsphere 0 ml 01/27/25 14:34 Perflutren Lipid Microspheres 1.5 Ml Vial Diluted To 10 Ml Total Volume IV PUSH 01/30/25 14:35 ONCE PRN adequate visualization Protocol Pioglitazone HCl 15 mg 01/21/25 09:00 01/28/25 09:23 Pioglitazone Hcl 15 Mg Tab PO 15 mg DAILY [facility] Administration Prazosin HCl 2 mg 01/20/25 21:00 01/28/25 20:49 Prazosin Hcl 1 Mg Capsule PO 2 mg HS SANTH[facility]H Administration Sertraline HCl 100 mg 01/21/25 09:00 01/28/25 09:23 Sertraline Hcl 50 Mg Tablet PO 100 mg DAILY [facility] Administration Spironolactone 25 mg 01/22/25 09:00 01/23/25 09:43 Spironolactone 25 Mg Tablet PO Not Given DAILY [facility] Sucralfate 1 gm 01/22/25 21:50 01/29/25 06:22 Sucralfate 1 Gm Tablet PO Not Given ACHS [facility] Topiramate 50 mg 01/20/25 20:15 01/28/25 16:21 Topiramate 25 Mg Tablet PO 50 mg BID [facility]TH[facility] Administration Trazodone HCl 50 mg 01/20/25 21:00 01/28/25 20:49 Trazodone Hcl 50 Mg Tablet PO 50 mg HS SANTH[facility] Administration Trimethobenzamide HCl 200 mg 01/22/25 20:22 01/27/25 22:34 Trimethobenzamide Hcl 200 Mg/2 Ml Vial IM 200 mg Q6H PRN Administration Nausea And Vomiting Vitamin D 5,000 units 01/21/25 09:00 01/28/25 09:23 Cholecalciferol 5,000 Units Tablet PO 5,000 units DAILY [facility] Administration Zolpidem Tartrate 10 mg 01/20/25 20:04 01/28/25 22:40 Zolpidem Tartrate (*Crx) 5 Mg Tablet PO 10 mg HS PRN Administration Insomnia Radiology Results: ITS Impressions Abdomen X-Ray 01/22/25 21:28 IMPRESSION: NO ACUTE ABDOMINAL FINDINGS. Renal Ultrasound 01/24/25 11:06 Impression: 1: Unremarkable renal ultrasound. No stones, masses or hydronephrosis. Abdomen/Pelvis CT 01/25/25 11:18 Impression: No acute abnormality seen. Chest/Abdomen/Pelvis CT 01/27/25 11:15 Impression: Probable minimal alveolar and interstitial pulmonary edema with minimal pleural fluid and left basilar atelectatic change. Small to moderate pericardial effusion. No significant findings in the abdomen or pelvis. Chest X-Ray 01/29/25 06:12 Impression: Central congestive change and mild pulmonary edema. Probable minimal left pleural effusion. Stable cardiomegaly. Labs Labs: Laboratory Results - last 24 hr 01/28/25 01/28/25 01/28/25 07:38 09:57 11:22 WBC RBC Hgb Hct MCV MCH MCHC RDW Plt Count MPV ESR PT INR APTT Sodium Potassium Chloride Carbon Dioxide Anion Gap BUN Creatinine Estim Creat Clear Calc Estimated GFR Glucose POC Capillary Glucose 142 H 140 H Calcium Total Bilirubin AST ALT Alkaline Phosphatase Troponin I C-Reactive Protein Total Protein Albumin Urine Color Yellow Urine Appearance Clear Urine pH 5.5 Ur Specific Accident 1.013 Urine Protein 3+ H Urine Glucose (UA) Trace H Urine Ketones Negative Ur Blood (Man) Negative Urine Nitrate Negative Urine Bilirubin Negative Urine Urobilinogen 0.2 Add Ur Microanalysis Reviewed Leukocyte Esterase Rfl Negative Urine RBC 0-2 Urine WBC 0-5 Ur Squamous Epith Cells Occasional Urine Bacteria None seen Urine Casts 6-10 01/28/25 01/28/25 01/28/25 11:53 16:50 21:02 WBC RBC Hgb Hct MCV MCH MCHC RDW Plt Count MPV ESR > 140 H PT INR APTT Sodium Potassium Chloride Carbon Dioxide Anion Gap BUN Creatinine Estim Creat Clear Calc Estimated GFR Glucose POC Capillary Glucose 173 H 134 H Calcium Total Bilirubin AST ALT Alkaline Phosphatase Troponin I 0.022 C-Reactive Protein 14.1 H Total Protein Albumin Urine Color Urine Appearance Urine pH Ur Specific Accident Urine Protein Urine Glucose (UA) Urine Ketones Ur Blood (Man) Urine Nitrate Urine Bilirubin Urine Urobilinogen Add Ur Microanalysis Leukocyte Esterase Rfl Urine RBC Urine WBC Ur Squamous Epith Cells Urine Bacteria Urine Casts 01/29/25 05:10 WBC 10.2 H RBC 3.17 L Hgb 9.1 L Hct 30.0 L MCV 94.6 MCH 28.7 MCHC 30.3 L RDW 12.8 Plt Count 207 MPV 10.0 ESR PT 14.1 INR 1.0 APTT 35.2 Sodium 138 Potassium 3.9 Chloride 109 H Carbon Dioxide 20 L Anion Gap 9 BUN 33 H Creatinine 2.53 H Estim Creat Clear Calc 36 Estimated GFR 20 L Glucose 186 H POC Capillary Glucose Calcium 9.5 Total Bilirubin 0.3 AST 12 L ALT 13 Alkaline Phosphatase 93 Troponin I C-Reactive Protein Total Protein 6.0 L Albumin 3.1 L Urine Color Urine Appearance Urine pH Ur Specific Accident Urine Protein Urine Glucose (UA) Urine Ketones Ur Blood (Man) Urine Nitrate Urine Bilirubin Urine Urobilinogen Add Ur Microanalysis Leukocyte Esterase Rfl Urine RBC Urine WBC Ur Squamous Epith Cells Urine Bacteria Urine Casts Quality VTE Prophylaxis VTE prophylaxis: pharmacologic ordered
[2025-01-29 07:53] LABS: Glucose Point of Care 164 mg/dl (65-105)
[2025-01-29] MEDS: TOPIRAMATE 25 MG TABLET 50 MG PO (09:14)
[2025-01-29] MEDS: amLODIPine BESYLATE 5 MG TABLET BY MOUTH (09:14)
[2025-01-29 09:15] VITALS: PULSE 72; PULSE 88; O2SAT 68
[2025-01-29] MEDS: PIOGLITAZONE HCL 15 MG TAB PO (09:15)
[2025-01-29] MEDS: METOPROLOL SUCCINATE EXT REL 50 MG TABCR BY MOUTH (09:15)
[2025-01-29 09:16] VITALS: O2SAT 92
[2025-01-29] MEDS: SERTRALINE HCL 50 MG TABLET 100 MG PO (09:16)
[2025-01-29] MEDS: ALPRAZolam (*CRX) 0.5 MG TABLET PO (09:16)
[2025-01-29] MEDS: ACYCLOVIR 400 MG TABLET PO (09:16)
[2025-01-29] MEDS: LUBIPROSTONE 24 MCG CAPSULE BY MOUTH (09:16)
[2025-01-29] MEDS: MECLIZINE HCL 25 MG TABLET PO (09:16)
[2025-01-29] MEDS: CHOLECALCIFEROL 5,000 UNITS TABLET 5000 UNITS PO (09:17)
[2025-01-29] MEDS: INSULIN GLARGINE (*BKC) 100 UNITS/ML 38 UNITS SUB-Q (10:35)
--- NOTE | 2025-01-29 14:27 | P.CDI_ITS ---
CDI Query Clarification Request Patient with a BMI of 46.4 please provide a diagnosis to accompany this finding: * Overweight * Obesity * Morbid Obesity * Other/Unknown <Jennifer Harvey RN - Last Filed: 01/29/25 14:28> Clarified Diagnosis Clarified Diagnosis: Morbid Obesity <Basim Chung MD - Last Filed: 01/29/25 15:53>
--- NOTE | 2025-01-30 09:31 | P.TS_ITS ---
Transfer Discharge Sum: Prov Provider Date of admission: 01/23/25 11:03 Primary care physician: Jamaal Ibarra DO Admitting clinician: Mago Kruger MD Consults: 01/21/25 13:02 Consult to Physician Routine Comment: Left DR andrew BIRCH @[id number], spoke to DR @0118 01/21 [facility] Provider: Bernadine Grimaldo call center support consultant/MD group to consult: nephro Reason for consultation: LUKE on CKD Has provider been notified: Yes 01/27/25 16:49 Consult to Physician Routine Comment: Spoke to exchange @0437 01/27 [facility] Provider: Gina Hernandez call center support consultant/MD group to consult: Cardiology Reason for consultation: Pericardial effusion Has provider been notified: Yes DS: Admitting Diagnosis Discharge Date 01/29/25 Admitting Diagnosis Abdominal pain and diarrhea DS: Discharge Diagnosis Discharge Diagnosis (1) Acute on chronic renal failure: Code(s): N17.9 - Acute kidney failure, unspecified; N18.9 - Chronic kidney disease, unspecified Status: Acute Assessment and Plan: Holding fluid due to volume overload monitor (2) Dehydration: Code(s): E86.0 - Dehydration Status: Acute Assessment and Plan: Currently patient is volume overload and holding fluid (3) Diarrhea: Code(s): R19.7 - Diarrhea, unspecified Status: Acute Assessment and Plan: C diff negative Stool culture pending Holding fluid due to volume overload Will start Loperamide if stool culture is negative Patient had spikes of fever. Negative blood culture and pending urine culture Started on ceftriaxone CT abdomen/chest/pelvis reviewed Continue monitoring stool cultures (4) Irritable bowel syndrome with constipation: Code(s): K58.1 - Irritable bowel syndrome with constipation Status: Acute Assessment and Plan: Lubiprostone on hold (5) Insulin dependent diabetes mellitus: Status: Chronic Assessment and Plan: Diabetic diet Accu-Cheks a.c. HS Lantus and actos reordered SSI (6) Hypertension: Code(s): I10 - Essential (primary) hypertension Status: Acute Assessment and Plan: Will titrate as needed (7) Leukocytosis: Code(s): D72.829 - Elevated white blood cell count, unspecified Status: Acute Assessment and Plan: Remains febrile Started on ceftriaxone Blood culture negative Pending urine culture Reviewed CT chest abdomen pelvis Plan DVT prophylaxis on Sq Lovenox Transfer Discharge Sum: Med Medications Active and Home Medications: Home Medications docusate sodium 100 mg capsule (Colace) 100 mg PO DAILY 11/02/19 [History Confirmed 01/20/25] sertraline 100 mg tablet (Zoloft) 100 mg PO DAILY 11/02/19 [History Confirmed 01/20/25] zolpidem 10 mg tablet 10 mg PO QPM PRN Insomnia 11/02/19 [History Confirmed 01/20/25] prazosin 2 mg capsule (Minipress) 2 mg PO HS 07/03/20 [History Confirmed 01/20/25] coenzyme Q10 100 mg capsule (Co Q-10) 100 mg PO DAILY 10/03/21 [History Confirmed 01/20/25] trazodone 50 mg tablet 50 mg PO HS 05/21/22 [History Confirmed 01/20/25] Humalog KwikPen Insulin See Protocol subcut TIDWMEAL 03/22/23 [History Confirmed 01/20/25] atorvastatin 10 mg tablet 20 mg PO QHS 04/02/23 [History Confirmed 01/20/25] ondansetron 4 mg disintegrating tablet 4 mg PO Q8H PRN nausea and vomiting #10 tabs 06/03/23 [Rx Confirmed 01/20/25] sumatriptan succinate 6 mg/0.5 mL subcutaneous pen injector 6 mg subcut ONCE PRN Migraine Headache 08/01/23 [History Confirmed 01/20/25] alprazolam 0.5 mg tablet 0.5 mg PO TID 09/10/23 [History Confirmed 01/20/25] blood-glucose sensor (FreeStyle Sharita 3 Sensor device) #1 ea 05/13/24 [History Confirmed 01/20/25] glucagon 3 mg/actuation nasal spray (Baqsimi) 3 mg intranasal PRN PRN Hypoglycemia 05/13/24 [History Confirmed 01/20/25] insulin glargine 100 unit/mL (3 mL) subcutaneous pen (Lantus Solostar U-100 Insulin) 38 unit subcut BID 05/13/24 [History Confirmed 01/20/25] pen needle, diabetic 32 gauge x 5/32 (BD Mer 2nd Gen Pen Needle) #1,200 ea 05/13/24 [History Confirmed 01/20/25] pioglitazone 15 mg tablet 15 mg PO DAILY 05/13/24 [History Confirmed 01/20/25] cholecalciferol (vitamin D3) 1,250 mcg (50,000 unit) tablet 1,250 mcg PO WEEKLY 06/02/24 [History Confirmed 01/20/25] prochlorperazine maleate 10 mg tablet 20 mg PO Q4-6H PRN Nausea 06/02/24 [History Confirmed 01/20/25] bumetanide 1 mg tablet 1 mg PO BID #60 tabs 06/25/24 [Rx Confirmed 01/20/25] spironolactone 25 mg tablet 25 mg PO DAILY #30 tabs 06/25/24 [Rx Confirmed 01/20/25] acyclovir 400 mg tablet 400 mg PO BID #180 tabs 08/20/24 [Rx Confirmed 01/20/25] cholecalciferol (vitamin D3) 125 mcg (5,000 unit) tablet 125 mcg PO DAILY 08/20/24 [History Confirmed 01/20/25] zinc citrate 11 mg chewable tablet 11 mg PO DAILY 08/20/24 [History Confirmed 01/20/25] losartan 100 mg tablet 100 mg PO DAILY #90 tabs 09/25/24 [Rx Confirmed 01/20/25] amitriptyline 25 mg tablet 50 mg (2 x 25 mg) PO HS #180 tabs 11/18/24 [Rx Confirmed 01/20/25] metoprolol succinate 50 mg tablet,extended release 24 hr See Rx Instructions .Route .COMPLEX #90 tabs 11/24/24 [Rx Confirmed 01/20/25] pantoprazole 40 mg tablet,delayed release 40 mg PO DAILY PRN Nausea #90 tabs 11/24/24 [Rx Confirmed 01/20/25] amlodipine 5 mg tablet See Rx Instructions .Route .COMPLEX #90 tabs 01/04/25 [Rx Confirmed 01/20/25] lubiprostone 24 mcg capsule See Rx Instructions .Route .COMPLEX #60 caps 01/04/25 [Rx Confirmed 01/20/25] topiramate 25 mg sprinkle capsule (Topamax) 50 mg (2 x 25 mg) PO BID #360 caps 01/12/25 [Rx Confirmed 01/20/25] Transfer Discharge Sum: Hosp Hospital Course Hospital course: Jennifer Londono is 49-year-old female with history of irritable bowel syndrome with constipation, cyclic vomiting syndrome, insulin-dependent diabetes, hypertension, hyperlipidemia, and anxiety presented to the emergency department with complaints of abdominal pain and diarrhea. She has not felt well for 5 days with symptoms to include mostly right-sided abdominal discomfort which she describes as a fullness, nausea, and diarrhea. The diarrhea has been about every 2 hours but is finally slowing down today. She feels weak and has been feeling lightheaded when standing. She has also been fatigued for about 6 weeks, sometimes sleeping up to 16 to 20 hours a day. She has not tried taking anything for her symptoms. It is noted that she take stool softeners, fiber gummies, and lubiprostone due to chronic constipation. She denies fever, chills, sweats, vomiting, melena, hematochezia, and dysuria. No sick contacts, recent antibiotics, or recent travel. In the ED: She was afebrile on arrival with stable vital signs. Labs were significant for WBC count of 11.2, hemoglobin 12.6, BUN 36, creatinine 2.94, glucose 157. Urinalysis was positive for 4+ protein, trace ketones, 3 to 5 RBC, and budding yeast. CT scan of the abdomen and pelvis showed no acute findings but did note hepatosplenomegaly and fecal stasis within the colon. I assumed care on 01/26/25: Patient has a complicated course of hospitalization. Patient has a CKD and IBS. Currently holding Bumex, losartan, spironolactone. Unfortunately patient is volume overloaded which is evident in the CT scan including pleural effusion and pericardial effusion. CT scan was performed due to elevated leukocytosis and febrile. Patient does has symptoms of UTI but UA shows no leukocyte esterase or nitrates. Ordered urine culture and blood culture. Echo was performed on 01/25/2025 which shows the ejection fraction 65-70%. [id number] a posteriorly located pericardial effusion and otherwise trees out circumferentially. Given 1 dose of Bumex today. Holding fluids due to fluid ov erload. Will start the patient on ceftriaxone and consulted Cardiology as well for pericardial effusion. Of note C diff is negative. Ordered stool studies. Creatinine continues to trend up. Started on ceftriaxone. Blood culture shows no growth till date. Pending stool studies.Order thoracentesis with pleural fluid studies. Will hold Lovenox. Cardiology evaluated the patient and reports pericarditis on the least differential and advised outpatient stress test. Called [facility] to initiate transfer and accepted for [facility]. Time Spent with Patient Time attestation: Total time spent providing and/or coordinating transfer services: 45 minutes Exam Narrative: General: well appearing, appears stated age. HEENT: normocephalic, atraumatic. Mucous membranes moist. EOMI, PERRLA, bilateral sclera anicteric, no conjunctival injection. Neck supple without JVD, lymphadenopathy, or bruit. Respiratory: clear to ascultation bilaterally. No rales/rhonic/wheezes. Cardiovascular: Regular rate and rhythm, normal S1-S2 upon ascultation. No murmurs, rubs, or clicks. PMI is nondisplaced, capillary refill less than 3 second. Abdomen: Soft, round, no pulsatile masses, nondistended and nontender. No rebound, no guarding. No CVA tenderness, no hepatosplenomegaly. Bowel sounds present to all four quadrants. No high pitch or tinkling sounds, resonant to percussion. Extremities: No cyanosis, clubbing, or edema present. Pulses are palpable 2/2. Active ROM to all four extremities. Neuro: Alert and orientated x 4. PERRLA. Cranial nerves 2-12 intact without focal deficit. Skin: Warm, dry, and intact, without rash, erythema, or lesion. Psych: pleasant, cooperative, normal speech, normal affect, no hallucinations, no dysarthia DS: Data Data Completed and Pending Pending studies at discharge: Pending at discharge 01/28/25 15:51 Cytology [PTH] Routine Labs on day of discharge: Preliminary micro results at discharge 01/26/25 18:56 Blood Culture - Preliminary Blood 01/26/25 19:09 Blood Culture - Preliminary Blood
== END 2025-01-29 10:55 | disposition short-term general hospital (02) | DRG 682 ==
LOC: ANHED 12:33 → ANH3MEDSUR 13:58
PROVIDERS: Internal Medicine; Internal Medicine Nephrology; Nurse Practitioner; Nurse Practitioner Gerontology; Physician Assistant; Admitting Provider Hospitalist; Emergency Provider Emergency Medicine; PCP Internal Medicine; Visit Provider General Practice
DX: N17.9 Acute kidney failure, unspecified (principal); J81.0 Acute pulmonary edema; I31.39 Other pericardial effusion (noninflammatory); E87.20 Acidosis, unspecified; Z68.42 Body mass index [BMI] 45.0-49.9, adult; N18.4 Chronic kidney disease, stage 4 (severe); I12.9 Hypertensive chronic kidney disease with stage 1 through stage 4 chronic kidney disease, or unspecified chronic kidney disease; E10.43 Type 1 diabetes mellitus with diabetic autonomic (poly)neuropathy; E10.22 Type 1 diabetes mellitus with diabetic chronic kidney disease; K31.84 Gastroparesis; E86.0 Dehydration; E78.5 Hyperlipidemia, unspecified; E53.8 Deficiency of other specified B group vitamins; E03.9 Hypothyroidism, unspecified; K75.81 Nonalcoholic steatohepatitis (NASH); K21.9 Gastro-esophageal reflux disease without esophagitis; K58.1 Irritable bowel syndrome with constipation; R19.7 Diarrhea, unspecified; M06.9 Rheumatoid arthritis, unspecified; E66.01 Morbid (severe) obesity due to excess calories; R11.15 Cyclical vomiting syndrome unrelated to migraine; Z20.822 Contact with and (suspected) exposure to COVID-19; M79.7 Fibromyalgia; M54.50 Low back pain, unspecified; G89.29 Other chronic pain; G47.30 Sleep apnea, unspecified; H54.8 Legal blindness, as defined in USA; F41.9 Anxiety disorder, unspecified; F32.A Depression, unspecified; Z79.4 Long term (current) use of insulin
CPT/HCPCS: 36415; 71045; 71250; 74018; 74176; 76775; 80048; 80053; 80069; 80307; 81001; 82550; 82570; 82948; 83036; 83605; 83690; 83735; 83880; 84100; 84156; 84300; 84443; 84484; 84540; 85025; 85027; 85610; 85652; 85730; 85999; 86140; 87040; 87045; 87427; 87449; 87493; 87637; 93005; 94762; 96361; 96372; 96374; 99285; A9270; C8929; G0378; J0696; J1650; J1815; J1939; J2405; J3250; J7030; J7120; Q9957

== ENCOUNTER 2025-02-09 16:14 | Inpatient (IN) | payer BC, SELFPAY ==
[2025-02-09] VITALS (24 sets, daily range): BP systolic 123–169; BP diastolic 73–87; PULSE 65–87; RESP 10–24; TEMP 36.6–36.9; O2SAT 95–100; BMI 36.5
--- NOTE | ~2025-02-09 | CT_ITS ---
CLINICAL INDICATION: Left lower quadrant pain COMPARISON: 01/27/2025. TECHNIQUE: Multiple contiguous axial images of the abdomen and pelvis were performed without the admi nistration of intravenous contrast The dose-length product (DLP) was 1456.91 mGy-cm. Automated exposure control and iterative reconstruction technique were employed. FINDINGS/OBSERVATIONS: Visualized lower thorax: The bilateral lung bases are clear. The heart is markedly enlarged, with a small pericardial effusion. Small hiatal hernia is present. Liver: The liver demonstrates homogeneous attenuation and is enlarged measuring 20 cm in longitudinal dimens ion. Gallbladder and biliary system: The gallbladder is surgically absent. Pancreas: Fatty atrophy of the head of the pancreas, unchanged from prior. Spleen: The spleen demonstrates homogeneous attenuation and is enlarged measuring 14 cm in longitudinal dimen jessica. Kidneys: 3 mm nonobstructing calculus within the upper pole of the right kidney The remainder of the bilateral kidneys are unremarkable, without hydronephrosis or additional renal c alculi. Adrenal glands: Unremarkable. Gastrointestinal tract: Fecal stasis within the distal colon and rectum. Appendix: The appendix is not definitively visualized. However, no pericecal inflammatory change is identified suggest the presence of acute appendicitis. Vasculature: Unremarkable. Lymph nodes: No pathologically enlarged or morphologically suspicious lymph nodes within the retroperitoneum or at the root of the mesentery. Pelvic structures: The bladder is decompressed. The uterus is anteverted and anteflexed, and otherwise unremarkable. The bilateral ovaries are symmetric in size and attenuation. Body wall and musculoskeletal: Small fat-containing umbilical hernia. No significant degenerative disease within the lower thoracic or lumbosacral spine. IMPRESSION: Hepatosplenomegaly, unchanged. No acute findings within the abdomen or pelvis, as detailed above. Reviewed, dictated and finalized at location A.
--- NOTE | ~2025-02-09 | XR_ITS ---
EXAMINATION: XR chest 2V Exam Date/Time: 02/09/2025 16:45 CDT HISTORY: weakness Comparison: 01/29/2025; CT cap 01/27/2025. RESULT: Lines, tubes, and devices: None. Lungs and pleura: Streaky subsegmental opacities in the lingula. Cardiomediastinal silhouette: Stable. Likely persistent small pericardial effusion. Other: No acute osseous or upper abdominal finding. IMPRESSION: Subsegmental lingular atelectasis/consolidation. Likely persistent small pericardial effusion. Reviewed, dictated and finalized at location K. IMPRESSION: Subsegmental lingular atelectasis/consolidation. Likely persistent small perica rdial effusion.
--- OUTSIDE RECORDS SUMMARY | 2025-02-09 16:16 | XMS_ITS | Encounter Summary ---
Author Organization [facility] Healthcare Address [address] [place] [address] Care Team Providers Care Analyzer Sales Name Role Phone Jamaal Ibarra DO Primary Care Provider [phone] Reason for Visit * Diagnostic Imaging (Routine) - Closed Specialty Diagnoses / Procedures Referred By Liz borrero Referred To Contact Procedures Breast Imaging US Outside Reference Saul Ortiz NP Phone: tel: fax: Referral ID Status Reason Start Date Expiration Date Visits Re quested Visits Authorized [id number] Closed 10/16/2022 11/15/2023 1 1 Encounter Details Date Type Department Care Team (Late st Contact Info) Description 04/29/2020 Hospital Encounter [facility] [address] [place] [id number] Social History Tobacco Use Types Packs/Day [...] on file Legal Sex Female 12:16 AM [employer] Gender Identity Not on file Sexual Orientation [...] CDT) Impressions [facility] - 10/16/2022 11:47 AM [employer] C[employer]TER These images are for Reference purposes only and have not been reviewed by [facility] Radiology. There will be no report generated by a [facility] Radiologist. Narrative [facility] - 10/16/2022 11:47 AM SOLID [employer]IE C[employer]TER EXAMINATION: Images For Reference Purposes Only us Saul Ortiz NP IMG MAMMO PROCEDURES Final Result [facility] documented in this encounter Visit Diagnoses Not on filedocumented in this encounter Care Teams Analyzer Sales Relationship Specialty Start Date End Date Jamaal Ibarra DO PCP - General 10/22/17 documented as of this encounter
--- OUTSIDE RECORDS SUMMARY | 2025-02-09 16:16 | XMS_ITS | Encounter Summary ---
Author Organization [facility] Healthcare Address [address] [place] [address] Care Team Providers Care Sheet Metal Erector Name Role Phone Jamaal Ibarra DO Primary Care Provider [phone]- [phone] Reason for Visit * Diagnostic Imaging (Routine) - Closed Specialty Diagnoses / Procedures Referred By Liz borrero Referred To Contact Procedures Breast Imaging Diagnostic Outside Reference Saul Ortiz NP Phone: tel: fax: Referral ID Status Reason Start Date Expiration Date Visits Re quested Visits Authorized [id number] Closed 10/16/2022 11/15/2023 1 1 Encounter Details Date Type Department Care Team (Late st Contact Info) Description 07/15/2019 12:05 AM CDT Hospital Encounter [facility] [address] [place] [address] Social History Tobacco Use Types Packs/Day Years [...] on file Legal Sex Female 12:16 AM 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 There will be no report generated by a [facility] Radiologist. Narrative [facility] - 10/16/2022 11:47 AM MANAGER OF COMPLIANCE EXAMINATION: Images For Reference Purposes Only us Saul Ortiz NP IMG MAMMO PROCEDURES Final Result [facility] documented in this encounter Visit Diagnoses Not on filedocumented in this encounter Care Teams Sheet Metal Erector Relationship Specialty Start Date End Date Jamaal Ibarra DO PCP - General 10/22/17 documented as of this encounter
--- OUTSIDE RECORDS SUMMARY | 2025-02-09 16:16 | XMS_ITS | Encounter Summary ---
Author Organization [facility] Healthcare Address [address] [place] [address] Care Team Providers Care Vice President Talent Management Name Role Phone Jamaal Ibarra DO Primary Care Provider +1- [phone] Reason for Visit * Diagnostic Imaging (Routine) - Closed Specialty Diagnoses / Procedures Referred By Liz borrero Referred To Contact Procedures Breast Imaging Screening Outside Reference Saul Ortiz NP Phone: tel: fax: Referral ID Status Reason Start Date Expiration Date Visits Re quested Visits Authorized [id number] Closed 10/16/2022 11/15/2023 1 1 Encounter Details Date Type Department Care Team (Late st Contact Info) Description 07/08/2019 Hospital Encounter [facility] [place], [place] [id number] Social History Tobacco Use Types Packs/Day Years [...] on file 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 There will be no report generated by a [facility] Radiologist. Narrative [facility] - 10/16/2022 11:48 AM CORE FEEDER EXAMINATION: Images For Reference Purposes Only us Saul Ortiz NP IMG MAMMO PROCEDURES Final Result [facility] documented in this encounter Visit Diagnoses Not on filedocumented in this encounter Care Teams Vice President Talent Management Relationship Specialty Start Date End Date Jamaal Ibarra DO PCP - General 10/22/17 documented as of this encounter
--- OUTSIDE RECORDS SUMMARY | 2025-02-09 16:16 | XMS_ITS | CONTINUITY OF CARE DOCUMENT ---
Author Name shyanalili Address Unknown Organization [facility] Address [address] [place] [address] [address] [place] [address] Phone [phone] Care Team Providers Care Senior Information Security Analyst Name Role Phone Edwar JAY, Rigoberto Unavailable [phone] JANNETTE JAY, LAYTON Unavailable JANETH GUZMAN DO Unavailable [phone] INSURANCE PROVIDERS Payer name Policy type / Coverage type [place] red [employer] party ID [facility] [id number]
--- OUTSIDE RECORDS SUMMARY | 2025-02-09 16:16 | XMS_ITS | Clinical Summary ---
Author Organization [facility] Address [address] [place] [address] Care Team Providers Care Inspector Fuel Hose Name Role Phone Jamaal Ibarra DO Primary Care Provider +1- [phone] Allergies Active Allergy Reactions Criticality Noted Date [...] 09/06/2021 Assessment & Plan (09/06/2021 9:49 AM JETTING MACHINE OPERATOR): -Fatigue is most likely multifactorial as she [...] 09/16/2017 Assessment & Plan (09/06/2021 9:45 AM JETTING MACHINE OPERATOR): -Taking weekly Vitamin D -Will repeat Vitamin D level Type 1 diabetes mellitus with hyperglycemia 03/2017 Nocturia 06/12/2017 Gastroesophageal reflux disease 10/27/2014 Seronegative rheumatoid arthritis 10/27/2014 Swelling of hand 10/27/2014 Fibroid 10/21/2014 Fibromyalgia 06/09/2014 Hypertension 04/27/2014 Assessment & Plan (09/06/2021 9:45 AM JETTING MACHINE OPERATOR): -BP today is 121/81 -Will continue same antihypertensive medications at this time. Hyperlipidemia 04/27/2014 Assessment & Plan (09/06/2021 9:45 AM JETTING MACHINE OPERATOR): -Will continue statin as it is being [...] 01/22/2023 Assessment & Plan (09/06/2021 9:45 AM JETTING MACHINE OPERATOR): -Currently taking MDI -A1C on 09/06/21 was [...] 06/12/201701/05 Assessment & Plan (09/06/2021 9:07 AM JETTING MACHINE OPERATOR): -States she has been off of LT4 [...] on file Legal Sex Female 12:16 AM JETTING MACHINE OPERATOR Gender Identity Not on file Sexual Orientation Not on file Obstetrics History Para Term AB IAB SAB Ectopic Multiple Livin g Live Births 4 0 0 Date Outcome GA Total Labor Labor/2nd/3rd Weight Sex Type Anes PTL Rafia A1 A5 Name Clin Last Filed Vital Signs Vital Sign Reading Time Taken Comments Blood Pressure 138/81 10/23/2024 8:12 AM JETTING MACHINE OPERATOR Pulse 78 10/23/2024 8:12 AM JETTING MACHINE OPERATOR Temperature 36.7 C (98.1 F) 10/23/2024 8:12 AM JETTING MACHINE OPERATOR Respiratory Rate 18 04/04/2024 4:54 PM CDT Oxygen Saturation 95% 04/04/2024 4:54 PM CDT Inhaled Oxygen Concentration - - Weight 128.7 kg (283 lb 12.8 oz) 10/23/2024 8:12 AM JETTING MACHINE OPERATOR Height 172.7 cm (5' 8 ) 10/23/2024 8:12 AM JETTING MACHINE OPERATOR Body Mass Index 43.15 10/23/2024 8:12 AM JETTING MACHINE OPERATOR Plan of Treatment Health Maintenance Due Date [...] 08/04/2020, Additional history exists eGFR 04/04/2025 04/04/2024, 3 , 01/03/2021, Additional history exists Hemoglobin A1C 04/22/2025 10/23/2024, 0404/2024, 01/22/2023, Additional history exists Influenza Vaccine (Season Ended) 2025 07/07/2020, 07/30/2019, 07/16/2018, Additional history exists Dilated Eye Exam 10/23/2025 10/23/2024, , 04/17/2024, Additional history exists Hepatitis B Screening Completed 07/28/2019 , 08/21/2013, 07/09/2012 Hepatitis C Screening Completed 07/06/2021 Procedures Procedure Name Priority Date/Time Associated Diagnosis Comments POCT HEMOGLOBIN A1C Routine 10/23/2024 8:29 AM JETTING MACHINE OPERATOR Type 1 diabetes mellitus with hyperglycemia [...] Recently Relevant to Health Maintenance Results * POCT hemoglobin A1c (10/23/2024 8:29 AM JETTING MACHINE OPERATOR) Hemoglobin A1C, POC 9.1 4.0 - 5.6 % Blood 10/23/2024 8:29 AM JETTING MACHINE OPERATOR us Evelin Monzon NP POINT OF CARE [...] 5:59 PM CDT 04/04/2024 6:15 PM CDT Jay Dorman MD LAB BLOOD ORDERABLES Final Result Performing Organization Address [facility] Co de Phone Number [facility] Department [place] [address] * Albumin Creatinine Ratio, Urine (01/24/2024) Urine Sarah Haskins MD LAB URINE ORDERABLES Final Resu lt Performing Organization Address [facility] Co de Phone Number EXTERNAL LAB * TSH (01/24/2024) Blood Sarah Haskins MD LAB BLOOD ORDERABLES Final Resu lt Performing Organization Address [facility] Co de Phone Number EXTERNAL LAB * Lipid panel (01/24/2024) Blood Sarah Haskins MD LAB BLOOD ORDERABLES Final Resu lt Performing Organization Address [facility] Co de Phone Number EXTERNAL LAB * [...] nipple by physician COMPARISON: Outside exams from [place] 09/13/2022to 07/08/2019 TECHNIQUE: Full field digital mammographic [...] - 07/12/2021 5:08 PM CDT Performed at: - [facility] [id number] [place]: Link Myles PhD, Phone: [phone] us Lorrie Saavedra MD LAB MICROBIOLOGY - GENERAL ORD ERABLES Final Result [facility] from Last 3 Months or Most Recently Relevant to Health [place] [address] [place] [address] [facility] BL CHOICE PRF [place]PO [place]F [place] GENERIC COPAY ASSIST CHOICE PRF PPO [place] WORKERS COMPENSATION GENERIC WORKERS COMPENSATION GENERIC Care Teams Inspector Fuel Hose Relationship Specialty Start Date End Date Jamaal Ibarra DO PCP - General 10/22/17
--- OUTSIDE RECORDS SUMMARY | 2025-02-09 16:16 | XMS_ITS | Encounter Summary ---
Author Organization [facility] Healthcare Address [address] [place] [address] Care Team Providers Care Cycle Manager Name Role Phone Jamaal Ibarra DO Primary Care Provider [phone] Reason for Visit * Diagnostic Imaging (Routine) - Closed Specialty Diagnoses / Procedures Referred By Liz borrero Referred To Contact Procedures Breast Imaging US Outside Reference Saul Ortiz NP Phone: tel: fax: Referral ID Status Reason Start Date Expiration Date Visits Re quested Visits Authorized [id number] Closed 10/16/2022 11/15/2023 1 1 Encounter Details Date Type Department Care Team (Late st Contact Info) Description 07/15/2019 Hospital Encounter [facility] [place], [place] [id number] Social History Tobacco Use Types Packs/Day Years [...] on file Legal Sex Female 12:16 AM 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 There will be no report generated by a [facility] Radiologist. Narrative [facility] - 10/16/2022 11:47 AM FRUIT AND VEGETABLE INSPECTOR EXAMINATION: Images For Reference Purposes Only us Saul Ortiz NP IMG MAMMO PROCEDURES Final Result [facility] documented in this encounter Visit Diagnoses Not on filedocumented in this encounter Care Teams Cycle Manager Relationship Specialty Start Date End Date Jamaal Ibarra DO PCP - General 10/22/17 documented as of this encounter
--- OUTSIDE RECORDS SUMMARY | 2025-02-09 16:16 | XMS_ITS | Encounter Summary ---
Author Organization [facility] Healthcare Address [address] [place] [address] Care Team Providers Care Mill Oiler Name Role Phone Jamaal Ibarra DO Primary Care Provider +1- [phone] Reason for Visit * Diagnostic Imaging (Routine) - Closed Specialty Diagnoses / Procedures Referred By Liz borrero Referred To Contact Procedures Breast Imaging Diagnostic Outside Reference Saul Ortiz NP Phone: tel: fax: Referral ID Status Reason Start Date Expiration Date Visits Re quested Visits Authorized [id number] Closed 10/16/2022 11/15/2023 1 1 Encounter Details Date Type Department Care Team (Late st Contact Info) Description 04/29/2020 12:05 AM CDT Hospital Encounter [facility] [address] [place] [address] Social History Tobacco Use Types Packs/Day Years [...] on file Legal Sex Female 12:16 AM APPOINTMENT SPECIALIST Gender Identity Not on file Sexual [...] CDT) Impressions [facility] - 10/16/2022 11:47 AM APPOINTMENT SPECIALIST These images are for Reference purposes only and have not been reviewed by [facility] Radiology. There will be no report generated by a [facility] Radiologist. Narrative [facility] - 10/16/2022 11:47 AM APPOINTMENT SPECIALIST EXAMINATION: Images For Reference Purposes Only us Saul Ortiz NP IMG MAMMO PROCEDURES Final Result [facility] documented in this encounter Visit Diagnoses Not on filedocumented in this encounter Care Teams Mill Oiler Relationship Specialty Start Date End Date Jamaal Ibarra DO PCP - General 10/22/17 documented as of this encounter
--- OUTSIDE RECORDS SUMMARY | 2025-02-09 16:16 | XMS_ITS | Encounter Summary ---
Author Organization [facility] Address [address] [place] [address] Phone Care Team Providers Care Cellophane Bag Machine Operator Name Role Phone Jamaal Ibarra DO Primary Care Provider +1- [phone] Encounter Details Date Type Department Care Team (Latest Contact Info) Description 10/14/2019 Orders Only [facility] Scanning, Provider Social History Tobacco Use Types Packs/Day Years Used Date Smoking Tobacco: Never Comments Unknown Sex and Gender Information Value Date Recorded Sex Assigned at Not on file Legal Sex Female 12:16 AM SOLE BUFFER Gender Identity Not on file Sexual Orientation [...] on filedocumented in this encounter Care Teams Cellophane Bag Machine Operator Relationship Specialty Start Date End Date Jamaal Ibarra DO PCP - General 10/22/17 documented as of this encounter
--- OUTSIDE RECORDS SUMMARY | 2025-02-09 16:16 | XMS_ITS | Referral Summary ---
Author Organization [facility] Address [address] [place] [address] Care Team Providers Care Mill Hand Name Role Phone Jamaal Ibarra DO Primary Care Provider +1- [phone] Allergies Active Allergy Reactions Criticality Noted Date [...] 09/06/2021 Assessment & Plan (09/06/2021 9:49 AM COAT PRESSER): -Fatigue is most likely multifactorial as she [...] 09/16/2017 Assessment & Plan (09/06/2021 9:45 AM COAT PRESSER): -Taking weekly Vitamin D -Will repeat Vitamin D level Type 1 diabetes mellitus with hyperglycemia 03/2017 Nocturia 06/12/2017 Gastroesophageal reflux disease 10/27/2014 Seronegative rheumatoid arthritis 10/27/2014 Swelling of hand 10/27/2014 Fibroid 10/21/2014 Fibromyalgia 06/09/2014 Hypertension 04/27/2014 Assessment & Plan (09/06/2021 9:45 AM COAT PRESSER): -BP today is 121/81 -Will continue same antihypertensive medications at this time. Hyperlipidemia 04/27/2014 Assessment & Plan (09/06/2021 9:45 AM COAT PRESSER): -Will continue statin as it is being [...] 01/22/2023 Assessment & Plan (09/06/2021 9:45 AM COAT PRESSER): -Currently taking MDI -A1C on 09/06/21 was [...] 06/12/201701/05 Assessment & Plan (09/06/2021 9:07 AM COAT PRESSER): -States she has been off of LT4 [...] on file Legal Sex Female 12:16 AM COAT PRESSER Gender Identity Not on file Sexual Orientation Not on file Last Filed Vital Signs Vital Sign Reading Time Taken Comments Blood Pressure 138/81 10/23/2024 8:12 AM COAT PRESSER Pulse 78 10/23/2024 8:12 AM COAT PRESSER Temperature 36.7 C (98.1 F) 10/23/2024 8:12 AM COAT PRESSER Respiratory Rate 18 04/04/2024 4:54 PM CDT Oxygen Saturation 95% 04/04/2024 4:54 PM CDT Inhaled Oxygen Concentration - - Weight 128.7 kg (283 lb 12.8 oz) 10/23/2024 8:12 AM COAT PRESSER Height 172.7 cm (5' 8 ) 10/23/2024 8:12 AM COAT PRESSER Body Mass Index 43.15 10/23/2024 8:12 AM COAT PRESSER Plan of Treatment Not on file Procedures Procedure Name Priority Date/Time Associated Diagnosis Comments POCT HEMOGLOBIN A1C Routine 10/23/2024 8:29 AM COAT PRESSER Type 1 diabetes mellitus with hyperglycemia (HCC) [...] * POCT hemoglobin A1c (10/23/2024 8:29 AM COAT PRESSER) Hemoglobin A1C, POC 9.1 4.0 - 5.6 % Blood 10/23/2024 8:29 AM COAT PRESSER us Evelin Monzon NP POINT OF CARE [...] Dorman MD LAB BLOOD ORDERABLES Final Result [facility] Department [place] [address] * Albumin Creatinine Ratio, Urine (01/24/2024) Urine Sarah Haskins MD LAB URINE ORDERABLES Final Resu lt Performing Organization Address [facility] Co de Phone Number EXTERNAL LAB * TSH (01/24/2024) Blood Sarah Haskins MD LAB BLOOD ORDERABLES Final Resu lt Performing Organization Address [facility] Co de Phone Number EXTERNAL LAB * Lipid panel (01/24/2024) Blood Sarah Haskins MD LAB BLOOD ORDERABLES Final Resu lt Performing Organization Address [facility] Co de Phone Number [...] nipple by physician COMPARISON: Outside exams from [place] 09/13/2022to 07/08/2019 TECHNIQUE: Full field digital mammographic [...] 07/12/2021 5:08 PM CDT Performed at: - [facility] [id number] [place]: Link Myles PhD, Phone: [phone] us Lorrie Saavedra MD LAB MICROBIOLOGY - GENERAL ORD ERABLES Final Result [facility] - 01 from Last 3 Months or Most Recently Relevant to Health Maintenance Insurance [employer] BL [place] GENER[place] COPAY ASSIST BL [place] WORK[place] COMP[place] GENERIC [place] [address] Care Teams Mill Hand Relationship Specialty Start Date End Date Jamaal Ibarra DO PCP - General 10/22/17
--- OUTSIDE RECORDS SUMMARY | 2025-02-09 16:16 | XMS_ITS | Encounter Summary ---
Author Organization [facility] Address [address] [place] [address] Care Team Providers Care Html Web Developer Name Role Phone Jamaal Ibarra DO Primary Care Provider Encounter Details Date Type Department Care Team (Latest Contact Info) Description 03/23/2002 Outpatient Historical [facility] [place] [address] [place] [address] MENSTRUAL DISORDER NEC (Primary Dx) Social History Tobacco Use Types Packs/Day Years Used Date Smoking Tobacco: Never Assessed Comments Unknown Sex and Gender Information Value Date Recorded Sex Assigned at Not on file Legal Sex Female 3:50 AM CUSTODIAL OPERATIONS MANAGER Gender Identity Not on file Sexual Orientation Not on file documented as of this encounter Plan of Treatment Not on file documented as of this encounter Visit Diagnoses Diagnosis Other disorder of menstruation and other abnormal bleeding from female genital tract- Primary documented in this encounter Additional Health Concerns Infection Onset Date Last Indicated Resolved Time R/O GI Pathogen 01/29/2025 01/29/2025 01/29/2025 6 :10 PM CDT R/O Respiratory 01/29/2025 01/29/2025 01/29/2025 5 :40 PM CDT documented as of this encounter Care Teams Html Web Developer Relationship Specialty Start Date End Date Jamaal Ibarra DO [address] [facility] [address] [place] [address] PCP - General Internal Medicine 07/11/18 documented as of this encounter
--- OUTSIDE RECORDS SUMMARY | 2025-02-09 16:16 | XMS_ITS | Clinical Summary ---
Author Organization [facility] Address [address] [place] [address] Care Team Providers Care Airport Ramp Agent Name Role Phone Jamaal Ibarra DO Primary Care Provider [phone] Social History Tobacco Use Types Packs/Day Years Used Date Smoking Tobacco: Never Assessed Comments Unknown Sex and Gender Information Value Date Recorded Sex Assigned at Not on file Legal Sex Female 10:23 PM SECTION 8 PROPERTY MANAGER Gender Identity Not on file Sexual [...] Vaccines Completed 07/28/2019, 08/21/2013, 07/09/2012 Pneumococcal Vaccine: 50+ Years Completed 08/03/2022 Meningococcal B Vaccine Aged Out No l onger eligible based on patient's age to complete this topic Meningococcal Vaccine Aged Out No piotr laura eligible based on patient's age to complete this topic RSV Immunizations Under 20 Months Aged Out No longer eligible b ased on patient's age to complete this [place] [address] [facility] Care Teams Airport Ramp Agent Relationship Specialty Start Date End Date Jamaal Ibarra DO [address] [place] [address] PCP - General INTERNAL MEDICINE 07/02/23
--- OUTSIDE RECORDS SUMMARY | 2025-02-09 16:16 | XMS_ITS | Encounter Summary ---
Author Organization [facility] Address [address] [place] [address] Phone Care Team Providers Care Meat Puller Name Role Phone Jamaal Ibarra DO Primary Care Provider +1- [phone] Encounter Details Date Type Department Care Team (Late st Contact Info) Description 10/18/[address] [place] [address] [place] [address] Era Taylor CMA Social History Tobacco Use Types Packs/Day Years Used Date Smoking Tobacco: Never Smokeless Tobacco: Never Comments Unknown Sex and Gender Information Value Date Recorded Sex Assigned at Not on file Legal Sex Female 12:16 AM FIELD INSTRUCTOR Gender Identity Not on file Sexual Orientation Not on file documented as of this encounter Plan of Treatment Not on file documented as of this encounter Visit Diagnoses Not on filedocumented in this encounter Care Teams Meat Puller Relationship Specialty Start Date End Date Jamaal Ibarra DO PCP - General 10/22/17 documented as of this encounter
--- OUTSIDE RECORDS SUMMARY | 2025-02-09 16:16 | XMS_ITS | Encounter Summary ---
Author Organization [facility] Address [address] [place] [address] Phone Care Team Providers Care Career Based Intervention Coordinator Name Role Phone Jamaal Ibarra DO Primary Care Provider +1- [phone] Encounter Details Date Type Department Care Team (Late st Contact Info) Description 08/03/2021 Orders Only [facility] Rheumatology [address] [facility] Medicine 5th [place] [address] [place] [id number] Jana Medley CMA Social History Tobacco Use Types Packs/Day Years Used Date Smoking Tobacco: Never Comments Unknown Sex and Gender Information Value Date Recorded Sex Assigned at Not on file Legal Sex Female 12:16 AM LEAK PATCHER Gender Identity Not on file Sexual Orientation Not on file documented as of this encounter Plan of Treatment Not on file documented as of this encounter Visit Diagnoses Not on filedocumented in this encounter Care Teams Career Based Intervention Coordinator Relationship Specialty Start Date End Date Jamaal Ibarra DO PCP - General 10/22/17 documented as of this encounter
--- OUTSIDE RECORDS SUMMARY | 2025-02-09 16:17 | XMS_ITS | Clinical Summary ---
Author Organization [facility] Gamar Address [address] [place] [address] Care Team Providers Care Roving Sizer Name Role Phone Lebron Pugh V. DO Unavailable [phone] Jamaal Ibarra DO Primary Care Provider [phone] Source Comments [facility],non-owned Affiliates and Associated Physician Practices is amultiple site organization consisting of ambulatory clinics and hospital sitesin [place], [place], [place] and [place]. This disclosure is being madepursuant to the Care Everywhere program and may not contain all information available regarding this patient. Last updated 18.[facility] Allergies Active Allergy Reactions Criticality [...] tablet 2 Active vitamin D, ergocalciferol, (DRISDOL) 32284 UNITS capsule 1 Active gabapentin (NEURONTIN) 300 MG capsule 2 Active simvastatin (ZOCOR) 20 MG tablet 1 Active traMADol (ULTRAM) 50 MG tablet 1 014 Active traZODone (DESYREL) 50 MG tablet 6 Active zolpidem (AMBIEN) 10 MG tablet 5 Active megestrol (MEGACE) 40 MG tablet Take 1 Tab by mouth once daily. 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..] HPV MRNA E6/E7 Routine 10/21/2014 1:52 PM YACHT RIGGER Routine gynecological examination MAMMO BILAT SCREENING Routine 09/22/2013 8:09 AM YACHT RIGGER Screening COMPREHENSIVE METABOLIC PANEL Routine 08/22/2013 8:00 AM YACHT RIGGER DM w/o Complication Type II, Uncontrolled HTN (hypertension), benign Abdominal pain, RUQ (right upper quadrant) Ketonuria HEMOGLOBIN A1C Routine 08/22/2013 8:00 AM YACHT RIGGER DM w/o Complication Type II, Uncontrolled MICROALB/CREAT RATIO URINE RANDOM PANEL Routine 08/21/2013 9:29 AM YACHT RIGGER DM w/o Complication Type II, Uncontrolled from Last 3 Months or Most Recently Relevant to Health Maintenance Results * PAP THIN PREP REFLX HPV (PO REF LAB) (10/21/2014 1:52 PM YACHT RIGGER) Clinical Information [facility] Comment:Routine exam LMP [facility] [...] has been evaluated with computer assisted technology. [employer] [facility] Comment: BKA, CT(ASCP) Test Performed at: [facility] [address] LAURENCE JO MD ENTIRE ENDOCERVIX / Unknown 10/21/2014 1:52 PM YACHT RIGGER 10/22/2014 10:09 AM YACHT RIGGER Bienvenido Mcnair Jr., MD LAB - PATHOLOGY/CYTOL OGY ORDERABLES Final Result [address] [address] * MAMM SCREENING DIGITAL IMAGE BILAT G0202 (09/22/2013 8:09 AM YACHT RIGGER) Anatomical Region Laterality Modality Breast Bilateral Mammography 09/22/2013 11:5 3 AM YACHT RIGGER Impressions 09/22/2013 11:56 AM YACHT RIGGER No malignant abnormality identified. No significant change. BI-RADS category 1. Negative. RECOMMENDATIONS: Routine mammograms in one year. Narrative 09/22/2013 11:56 AM YACHT RIGGER Screening mammogram: HISTORY: Screening mammogram. Two views [...] * (ABNORMAL) HEMOGLOBIN A1C (08/22/2013 8:00 AM YACHT RIGGER) Hemoglobin A1c 12.6(H) <5.7 % of total [...] of diabetes for children. Test Performed at: [facility] [id number] [place] [address] PAPO BENNETT DO,MPH Whole blood specimen (specimen) BLOOD SPECIMEN / Unknown 08/22/2013 4:53 AM YACHT RIGGER us Salma Hunt MANAGER CHEMICAL-SALES SERVICE EXECUTIVE LAB - CHEMISTRY ORDERA BLES Final Result [facility] [address] [place] [address] * (ABNORMAL) COMPREHENSIVE METABOLIC PANEL (08/22/2013 8:00 AM YACHT RIGGER) Glucose 312(H) 65 - 99 mg/dL [facility] [...] 29 U/L [facility] Comment: Test Performed at: [facility] [id number] [place] [address] PAPO BENNETT DO,MPH Blood specimen (specimen) BLOOD SPECIMEN / Unknown 08/22/2013 4:53 AM YACHT RIGGER Salma Llanos Marilee MANAGER CHEMICAL-SALES SERVICE EXECUTIVE LAB - CHEMISTRY ORDERA BLES Final Result Performing Organization Address [facility] de Phone Number [facility] [address] [place] [address] * (ABNORMAL) MICROALB/CREAT RATIO URINE RANDOM PANEL (08/21/2013 9:29 AM YACHT RIGGER) Creatinine Urine 129 20 - 320 mg/dL [...] within a diagnostic category. Test Performed at: [facility] [id number] [place] [address] PAPO BENNETT DO,MPH Urine specimen (specimen) URINE SPECIMEN OBTAINED BY CLEAN CATCH PROCEDURE / Unknown 08/21/2013 9:29 AM YACHT RIGGER 08/22/2013 4:16 AM YACHT RIGGER Salma Llanos Marilee MANAGER CHEMICAL-SALES SERVICE EXECUTIVE LAB - URINE CHEMISTRY ORDERABLES Final Result Performing Organization Address [facility] de Phone Number [facility] [address] [place] [address] from Last 3 Months or Most Recently Relevant to Health Maintenance Insurance ANTHEM ANTHEM Advance Directives * FULL RESUSCITATION (Latest Code Status on File) Date Activated Date Inactivated Comments 05/06/2011 1:35 AM 05/08/2011 5:46 AM Care Teams Roving Sizer Relationship Specialty Start Date End Date Jamaal Ibrara DO [address] [place] [address] PCP - General 06/01/21 Lebron Pugh DO [address] [place] [id number] Oncology 06/23/07
--- OUTSIDE RECORDS SUMMARY | 2025-02-09 16:17 | XMS_ITS | Clinical Summary ---
Author Organization [facility] Address [address] [place] [id number] Phone Care Team Providers Care Cardiac Exercise Physiologist Name Role Phone JeanniesvetaJamaal jernigan Primary Care Provider [phone] Allergies Active Allergy Reactions Criticality Noted Date [...] 2 Active ergocalciferol (VITAMIN D2) 1.25 MG (61073 UT) capsule TAKE 1 CAPSULE BY MOUTH [...] Comments Blood Pressure 128/72 09/05/2022 8:31 AM LICENSED REACTOR OPERATOR Pulse - - Temperature 36.5 C (97.7 F) 09/05/2022 8:31 AM LICENSED REACTOR OPERATOR Respiratory Rate 18 09/05/2022 8:31 AM LICENSED REACTOR OPERATOR Oxygen Saturation - - Inhaled Oxygen Concentration - - Weight 121 kg (267 lb) 09/05/2022 8:31 AM LICENSED REACTOR OPERATOR Height 172.7 cm (5' 8 ) 09/05/2022 8:31 AM LICENSED REACTOR OPERATOR Body Mass Index 40.6 09/05/2022 8:31 AM LICENSED REACTOR OPERATOR Plan of Treatment Health Maintenance Due Date Last Done Comments Diabetic Foot Exam 1984 Ophthalmology Exam 1984 Pneumococcal PPSV23 Highest Risk Adult (1 of 3 - PCV13) 1993 Influenza Vaccine (Season Ended) 2025 07/07/2020, 07/30/2019, 07/16/2018, Additional history exists Insurance [facility] Care Teams Cardiac Exercise Physiologist Relationship Specialty Start Date End Date Jamaal Ibarra DO [address] [place] [address] PCP - General Internal Medicine 05/07/22
--- OUTSIDE RECORDS SUMMARY | 2025-02-09 16:17 | XMS_ITS | Clinical Summary ---
Author Organization [facility] Address [address] [place] [address] Care Team Providers Care Anesthesiologist And Critical Care Name Role Phone Jamaal Ibarra DO Primary Care Provider Allergies Active Allergy Reactions Criticality Noted Date Comments Benazepril Cough Low 05/05/2008 Latex Itching Low 08/07/2018 Lisinopril Cough Low 03/28/2021 Metoclopramide Hives High 03/28/2021 Metronidazole Swelling Low 10/17/2009 Medications acyclovir (ZOVIRAX) 400 mg tablet Take 400 mg by mouth 2 times daily. Active traZODone (DESYREL) 50 mg tablet Take 50 mg by mouth daily at bedtime. Active sertraline (ZOLOFT) 100 mg tablet Take 100 mg by mouth daily. Active zolpidem (AMBIEN) 10 mg tablet Take 10 mg by mouth daily at bedtime. Active amitriptyline (ELAVIL) 25 mg tablet Take 25 mg by mouth daily at bedtime. Active insulin aspart protamine-asp ar (NovoLOG MIX 70-30) 100 unit/mL (70-30) vial Inject by subcutaneous injection Sliding scale . Active traMADol (ULTRAM) 50 mg tablet Take 100 mg by mouth every 8 hours as needed for Pain. Active insulin glargine (LANTUS) 100 unit/mL vial Inject 38 Units by subcutaneous injection 2 times daily. Active prochlorperaz ine maleate (COMPAZINE) 10 mg tablet Take 10 mg by mouth every 6 hours as needed for Nausea/Emesis. Active ondansetron (ZOFRAN) 8 mg Tablet Take 8 mg by mouth every 8 hours as needed for Nausea/Emesis. Active docusate sodium (COLACE) 100 mg capsule Take 100 mg by mouth 2 times daily. Active pantoprazole (PROTONIX) 40 mg Tablet, Delayed Release (E.C.) Take 40 mg by mouth daily. Active ALPRAZolam (XANAX) 1 mg tablet Take 1 mg by mouth 3 times daily as needed for Anxiety. Active prazosin (MINIPRESS) 2 mg capsule Take 2 mg by mouth daily at bedtime. Active amLODIPine (NORVASC) 5 mg tablet Take 1 Tablet (5 mg) by mouth daily. 30 Tablet 02/03/20 25 Active carvediloL (COREG) 6.25 mg tablet Take 1 Tablet (6.25 mg) by mouth every 12 hours. 60 Tablet 5 10:14 AM CDT 02/03/20 25 Active chlorthalidon e (HYGROTON) 25 mg tablet Take 1 Tablet (25 mg) by mouth daily. 30 Tablet 5 10:14 AM CDT 02/03/20 25 Active hydrALAZINE (APRESOLINE) 50 mg tablet Take 1 Tablet (50 mg) by mouth every 8 hours for systolic (top number) blood pressure greater than 170. 90 Tablet 5 10:14 AM CDT 02/03/20 25 Active bumetanide (BUMEX) 1 mg tablet Take 1 Tablet (1 mg) by mouth daily. 7 Tablet 5 10:14 AM CDT 02/03/20 25 Active losartan-hydr oCHLOROthiazi de (HYZAAR) 50-12.5 mg tablet Take 1 Tablet by mouth daily. Discontinued metoprolol tartrate (LOPRESSOR) 25 mg tablet Take 25 mg by mouth daily. Take two tabs Discontinued cyclobenzapri ne (FLEXERIL) 10 mg tablet Take 10 mg by mouth 3 times daily as needed for Spasm. Discontinued insulin degludec (TRESIBA FLEXTOUCH U-100 SUBCUT) Inject 60 Units by subcutaneous injection daily at bedtime. 025 Discontinued(A lternate therapy prescribed) amLODIPine (NORVASC) 2.5 mg tablet Take 2.5 mg by mouth daily. Discontinued bumetanide (BUMEX) 1 mg tablet Take 1 Tablet (1 mg) by mouth daily. 30 Tablet 02/03/20 025 Discontinued Active Problems Problem Noted Date Diagnosed Date LUKE (acute kidney injury) 01/30/2025 Acquired hypothyroidism 01/29/2025 BREEN (nonalcoholic steatohepatitis) 01/29/2025 Type 2 diabetes mellitus wit h chronic kidney disease, with long-term current use of insulin 01/29/2025 SHANICE (obstructive sleep apnea) 01/27/2023 Chronic ulcer of great toe o f right foot, limited to breakdown of skin 01/11/2021 Iron deficiency anemia 08/07/2018 Gastroesophageal reflux disease 10/27/2014 Fibromyalgia 06/09/2014 Hyperlipidemia 07/05/2009 Overview (01/29/2025): Last Assessment & Plan: -Will continue statin as it is being tolerated without side effects -Will repeat lipid panel Depressive disorder 11/10/2007 Anxiety 05/20/2007 Resolved Problems Problem Noted Date Diagnosed Date Resolved Date Type 1 diabetes mellitus with hyperglycemia 06/12/2017 01/29/2025 Encounters Date Type Department Care Team Description 02/02/2025 External Device Data [facility] ABSTRACTION Provider, Abstract 02/02/2025 External Device Data [facility] AB[facility]CTION Provider, Abstract 02/02/2025 External Device Data [facility]STRACTION Provider, Abstract 01/29/2025 12:19 PM CDT - 02/02/2025 10:23 AM CDT Hospital Encounter [facility] [address] [place] [id number] Citlalli Altamirano MD Pickrell, Aaron A, MD Hughes, Theresa, MD Keech, Dorinda Luo, Chronic ulcer of great toe of right foot, limited to breakdown of skin (CMS/HCC) Discharge Disposition: Home or Self Care 01/29/2025 Mobile Encounter [facility] Adult Hospitalists [facility] [address] [place] [address] Citlalli Altamirano MD from Last 3 Months Family History Medical History Relation Name Comments [...] = 0.6 oz pur e alcohol) rarely Feeling Safe Answer Date Recorded Are you in a relationship wi th someone who hurts you emotionally and/or physically? 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 Gender Identity Not on file Sexual Orientation Not on file Last Filed Vital Signs Vital Sign Reading Time Taken Comments Blood Pressure 170/78 02/02/2025 5:11 AM CDT Pulse 84 02/02/2025 5:11 AM CDT Temperature 36.8 C (98.3 F) 02/02/2025 5:11 AM CDT Respiratory Rate 16 02/02/2025 5:11 AM CDT Oxygen Saturation 94% 02/01/2025 12:20 PM CDT Inhaled Oxygen Concentration - - Weight 123.4 kg (272 lb) 01/29/2025 3:56 PM CDT Height 172.7 cm (5' 8 ) 01/29/2025 3:56 PM CDT Body Mass Index 41.36 01/29/2025 3:56 PM CDT Plan of Treatment Health Maintenance Due Date Last Done Comments DIABETES MICROALBUMIN ANNUAL SCREEN 1992 LDL CHOLESTEROL ANNUAL 1992 DIABETES ANNUAL FOOT EXAM 07/09/2013 07/09/2012 HEPATITIS B VACCINES (2 of 3 - 19+ 3-dose series) 08/25/2019 07/28/2019, 08/21/2013, 07/09/2012 COLORECTAL SCREENING 12/21/2019 Colorectal Cancer Screening 12/21/2019 FIT-DNA Q 3 years 12/21/2019 FIT/FOBT Q 1 year 12/21/2019 Flex Sig/CT Colonography Q 5 years 12/21/2019 DTAP/TDAP/TD VACCINES (2 - T d or Tdap) 07/09/2022 07/09/2012, 09/17/2005 BREAST CANCER SCREENING 01/12/2024 01/11/2023, 09/22 INFLUENZA VACCINE (#1) 2024 9, 07/16/2018, 07/22/2017, Additional history exists ZOSTER VACCINE (1 of 2) 2024 DIABETES HBA1C Q 6 MONTHS 07/31/20252024, 10/23/2024, 01/03/2021, Additional history exists DIABETES ANNUAL RETINAL EXAM 10/23/2025, 10/23/2024, 10/23/2024, Additional history exists Procedures Procedure Name Priority Date/Time Associated Diagnosis Comments POC GLUCOSE Routine 02/01/2025 9:24 PM CDT POC GLUCOSE Routine 02/01/2025 6:26 PM CDT XR CHEST PA OR AP 1 VW Routine 3:20 PM CDT POC GLUCOSE Routine 02/01/2025 1:49 PM CDT POC GLUCOSE Routine 02/01/2025 9:58 AM CDT C-REACTIVE PROTEIN Routine 02/01/2025 8: 41 AM CDT CBC WITH DIFFERENTIAL Routine 02/01/2025 8:41 AM CDT BASIC METABOLIC PANEL Routine 02/01/2025 8:41 AM CDT POC GLUCOSE Routine 01/31/2025 10:18 PM CDT POC GLUCOSE Routine 01/31/2025 6:30 PM CDT POC GLUCOSE Routine 01/31/2025 1:24 PM CDT URINALYSIS W/REFLEX MICROSCOPIC Routine 01/31/2025 11:40 AM CDT MAGNESIUM LEVEL Routine 01/31/2025 9:10 AM CDT BASIC METABOLIC PANEL Routine 01/31/2025 9:10 AM CDT CBC WITHOUT DIFFERENTIAL Routine 01/31/2025 9:10 AM CDT POC GLUCOSE Routine 01/30/2025 10:32 PM CDT POC GLUCOSE Routine 01/30/2025 6:16 PM CDT POC GLUCOSE Routine 01/30/2025 4:29 PM CDT US VENOUS DOPPLER LEG BILATERAL Routine 01/30/2025 1:52 PM CDT PROTEIN , RANDOM URINE Routine 9:53 AM CDT OSMOLALITY, URINE Routine 01/30/2025 9:5 3 AM CDT SODIUM, RANDOM URINE Routine 01/30/2025 9:53 AM CDT UREA NITROGEN, RANDOM URINE Routine 01/30/2025 9:53 AM CDT POC GLUCOSE Routine 01/30/2025 9:16 AM CDT MAGNESIUM LEVEL Routine 01/30/2025 4:42 AM CDT BASIC METABOLIC PANEL Routine 01/30/2025 4:42 AM CDT CBC WITHOUT DIFFERENTIAL Routine 01/30/2025 4:42 AM CDT POC GLUCOSE Routine 01/29/2025 8:29 PM CDT OSMOLALITY Routine 01/29/2025 7:53 PM CDT POC GLUCOSE Routine 01/29/2025 6:29 PM CDT MRI FOOT WO CONTRAST RIGHT Routine 01/29/2025 5:53 PM CDT RESPIRATORY PATHOGEN PCR PANEL Routine 01/29/2025 4:29 PM CDT GI PATHOGEN PCR PANEL Routine 01/29/2025 4:26 PM CDT XR CHEST PA AND LATERAL 2 VW Routine 01/29/2025 3:15 PM CDT IRON, TIBC, AND PERCENT SATURATION Routine 01/29/2025 2:08 PM CDT TSH REFLEXIVE Routine 01/29/2025 2:08 PM CDT HEMOGLOBIN A1C Routine 01/29/2025 2:08 PM CDT SEDIMENTATION RATE Routine 01/29/2025 2: 08 PM CDT C-REACTIVE PROTEIN Routine 01/29/2025 2: 08 PM CDT COMPREHENSIVE METABOLIC PANEL Routine 01/29/2025 2:08 PM CDT CBC WITH DIFFERENTIAL Routine 01/29/2025 2:08 PM CDT from Last 3 Months Results * (ABNORMAL) POC GLUCOSE (02/01/2025 9:24 PM CDT) Only the most recent of13 resultswithin the time period is included. GLUCOSE POC 190(H) 74 - 99 mg/dL 02/01/2025 9:24 PM CDT [facility] SPECIMEN SOURCE, GLUCOSE POC Whole Blood 02/01/2025 9:24 PM CDT [facility] Blood, whole 02/01/2025 9:24 PM CDT 02/02/2025 6:24 AM CDT us Dorinda Oscar DO POINT OF CARE TESTING Final Re sult [facility] CLIA# [id number] [address] [place] [address] * XR CHEST PA OR AP 1 VW (02/01/2025 3:20 PM CDT) Anatomical Region Laterality Modality Chest Computed Radiogr aphy 02/01/2025 3:27 PM CDT Impressions 02/01/2025 4:52 PM CDT IMPRESSION: 1. Cardiomegaly with perihilar/lower lobe predominant mixed interstitial and airspace opacities, potentially representing pulmonary edema or multifocal pneumonia. DICTATION LOCATION: Location 4 Narrative 02/01/2025 4:52 PM CDT EXAMINATION: XR CHEST PA OR AP 1 VW HISTORY: Hypoxia COMPARISON: Chest x-ray performed 01/29/2025 FINDINGS: The heart is enlarged. Perihilar/lower lobe predominant mixed interstitial and airspace opacities are again noted. No pleural effusion or pneumothorax. The visible osseous structures are intact. INCIDENTAL FINDINGS: None. Procedure Note Harry Enamorado MD - 02/01/2025 EXAMINATION: XR CHEST PA OR AP 1 VW HISTORY: Hypoxia COMPARISON: Chest x-ray performed 01/29/2025 FINDINGS: The heart is enlarged. Perihilar/lower lobe predominant mixed interstitial and airspace opacities are again noted. No pleural effusion or pneumothorax. The visible osseous structures are intact. INCIDENTAL FINDINGS: None. IMPRESSION: 1. Cardiomegaly with perihilar/lower lobe predominant mixed interstitial and airspace opacities, potentially representing pulmonary edema or multifocal pneumonia. DICTATION LOCATION: Location 4 Lee Ann Berman MD DIAGNOSTIC IMAGING ORDERABLES Final Result * (ABNORMAL) CBC WITH DIFFERENTIAL (02/01/2025 8:41 AM CDT) Only the most recent of2 resultswithin the time period is included. Pathologist [facility] WBC 8.9 4.0 - 9.8 K/uL 02/01/2025 9:40 AM CDT [facility] RBC 3.61(L) 3.90 - 4.90 M/uL 02/01/2025 9:40 AM CDT [facility] HEMOGLOBIN 10.4(L) 11.8 - 14.8 g/dL 02/01/2025 9:40 AM CDT [facility] HEMATOCRIT 33.5(L) 35.5 - 44.0 % 02/01/2025 9:40 AM CDT [facility] - [facility] MCV 92.8 82.0 - 99.0 fL 02/01/2025 9:40 AM CDT [facility] - [facility] MCH 28.8 27.2 - 32.6 pg 02/01/2025 9:40 AM CDT [facility] - [facility] MCHC 31.0(L) 31.5 - 35.5 g/dL 02/01/2025 9:40 AM CDT [facility] - . [facility] RDW 13.0 11.5 - 14.5 % 02/01/2025 9:40 AM CDT [facility] - [facility] RDW-STDEV 43.9 37.1 - 48.7 fL 02/01/2025 9:40 AM CDT [facility] - [facility] PLATELETS 278 140 - 350 K/uL 02/01/2025 9:40 AM CDT [facility] - [facility] MPV 9.6 9.3 - 12.4 fL 02/01/2025 9:40 AM CDT [facility] - [facility] NEUTROPHILS 76 % 02/01/2025 9:40 AM CDT [facility] - . [facility] LYMPHOCYTES 15 % 02/01/2025 9:40 AM CDT [facility] - . [place] MONOCYTES 5 % 02/01/2025 9:40 AM CDT [facility] - . [place] EOSINOPHILS 3 % 02/01/2025 9:40 AM CDT [facility] - . [place] BASOPHILS 1 % 02/01/2025 9:40 AM CDT [facility] - . [facility] IMMATURE GRANULOCYTES 1 % 02/01/2025 9:40 AM CDT [facility] - . [place] Comment:IG (Immature Granulo cyte) count includes Metamyelocytes, Myelocytes, and Promyelocytes NEUTROPHIL ABSOLUTE 6.69 1.90 - 7.00 K/uL 02/01/2025 9:40 AM CDT [facility] - . [place] LYMPHOCYTE ABSOLUTE 1.36 0.70 - 4.50 K/uL 02/01/2025 9:40 AM CDT [facility] - . [facility] MONOCYTE ABSOLUTE 0.44 0.10 - 1.30 K/uL 02/01/2025 9:40 AM CDT [facility] EOSINOPHIL ABSOLUTE 0.23 0.00 - 0.70 K/uL 02/01/2025 9:40 AM CDT [facility] - . [facility] BASOPHILS ABSOLUTE 0.05 0.00 - 0.20 K/uL 02/01/2025 9:40 AM CDT [facility] - . [facility] IMMATURE GRANULOCYTES ABSOLUTE 0.09(H) 0.00 - 0.03 K/uL 02/01/2025 9:40 AM CDT [facility] - [facility] Blood Venipuncture / Unknown 02/01/2025 8:41 AM CDT 02/01/2025 9:19 AM CDT Lee Ann Berman MD HEMATOLOGY ORDERABLES Final Re sult Performing Organization Address [facility] Co de Phone Number [facility] CLIA# [id number] [address] [place] [address] * (ABNORMAL) C-REACTIVE PROTEIN (02/01/2025 8:41 AM CDT) Only the most recent of2 resultswithin the time period is included. CRP 19.8(H) <5.0 mg/L 02/01/2025 12:44 PM CDT [facility] Blood Venipuncture / Unknown 02/01/2025 8:41 AM CDT 02/01/2025 9:19 AM CDT Lee Ann Berman MD CHEMISTRY ORDERABLES Final Res ult Performing Organization Address [facility]/ZIP Co de Phone Number [facility] CLIA# [id number] [address] [place] [address] * (ABNORMAL) BASIC METABOLIC PANEL (02/01/2025 8:41 AM CDT) Only the most recent of3 resultswithin the time period is included. SODIUM 139 136 - 145 mmol/L 02/01/2025 10:01 AM CDT [facility] POTASSIUM 3.6 3.5 - 5.0 mmol/L 02/01/2025 10:01 AM [facility] CHLORIDE 108(H) 98 - 107 mmol/L 02/01/2025 10:01 AM [facility] CO2 20(L) 22 - 29 mmol/L 02/01/2025 10:01 AM [facility] CALCIUM 9.8 8.6 - 10.2 mg/dL 02/01/2025 10:01 AM [facility] BUN 22(H) 6 - 20 mg/dL 02/01/2025 10:01 AM [facility] CREATININE 1.90(H) 0.51 - 0.95 mg/dL 02/01/2025 10:01 AM [facility] GLUCOSE 167(H) 74 - 99 mg/dL 02/01/2025 10:01 AM [facility] GFR 32(L) >=60 mL/min/1.7 3 sq meter 02/01/2025 10:01 AM [facility] Comment:eGFR calculated with 2020 CKD-EPI equation. Vegetarian diet, extremely high or low muscle mass, and may affect results. Cystatin C with Glomerular Filtration Rate is a suitable alternative for these patients. ANION GAP 11 8 - 16 mmol/L 02/01/2025 10:01 AM [facility] Blood Venipuncture / Unknown 02/01/2025 8:41 AM CDT 02/01/2025 9:19 AM CDT us Lee Ann Berman MD CHEMISTRY ORDERABLES Final Res ult [facility]# [id number] [address] [place] [address] * (ABNORMAL) URINALYSIS WITH REFLEX MICROSCOPIC (01/31/2025 11:40 AM CDT) COLOR UA Pale Yellow Pale to Dark Yellow 01/31/2025 12:14 PM [facility] - . [place] CLARITY UA Clear Clear 01/31/2025 12:14 PM [facility] SPECIFIC GRAVITY UA 1.006 1.003 - 1.035 01/31/2025 12:14 PM [facility] PH UA 7.0 5.0 - 8.0 01/31/2025 12:14 PM [facility] [place] LEUKOCYTE ESTERASE UA Negative Negative 01/31/2025 12:14 PM [facility] - . [place] NITRITE UA Negative Negative 01/31/2025 12:14 PM [facility] - . [place] PROTEIN UA 2+(A) Negative 01/31/2025 12:14 PM [facility] - . [place] GLUCOSE UA Negative Negative 01/31/2025 12:14 PM [facility] - . [facility] KETONES UA Negative Negative 01/31/2025 12:14 PM [facility] - . [facility] UROBILINOGEN UA Normal <2.0 mg/dL 12:14 PM [facility] - . [place] BILIRUBIN UA Negative Negative 01/31/2025 12:14 PM [facility] - . [facility] BLOOD UA Negative Negative 01/31/2025 12:14 PM [facility] - . [place] WBC UA 0-2 0 - 2 /hpf 01/31/2025 12:14 PM [facility] - . [facility] RBC UA 0-2 0 - 2 /hpf 01/31/2025 12:14 PM [facility] - . [facility] BACTERIA UA Negative Negative /hpf 01/31/2025 12:14 PM [facility] - . [facility] EPITHELIAL CELLS, URINE 0-5 0 - 5 /hpf 01/31/2025 12:14 PM [facility] - . [place] Urine URINE SPECIMEN OBTAINED BY CLEAN CATCH PROCEDURE / Unknown 01/31/2025 11:40 AM CDT 01/31/2025 11:40 AM CDT Lee Ann Berman MD URINE ORDERABLES Final Result [facility] [employer] SERVICES - [facility] CLIA# [id number] [address] [place] [address] * (ABNORMAL) CBC WITHOUT DIFFERENTIAL (01/31/2025 9:10 AM CDT) Only the most recent of2 resultswithin the time period is included. WBC 7.6 4.0 - 9.8 K/uL 01/31/2025 9:21 AM CDT [facility] - [facility] RBC 3.54(L) 3.90 - 4.90 M/uL 01/31/2025 9:21 AM CDT [facility] - [facility] HEMOGLOBIN 10.3(L) 11.8 - 14.8 g/dL 01/31/2025 9:21 AM CDT [facility] - [facility] HEMATOCRIT 32.6(L) 35.5 - 44.0 % 01/31/2025 9:21 AM CDT [facility] - [facility] MCV 92.1 82.0 - 99.0 fL 01/31/2025 9:21 AM CDT [facility] - [facility] MCH 29.1 27.2 - 32.6 pg 01/31/2025 9:21 AM CDT [facility] - [facility] MCHC 31.6 31.5 - 35.5 g/dL 01/31/2025 9:21 AM CDT [facility] - [facility] PLATELETS 247 140 - 350 K/uL 01/31/2025 9:21 AM CDT [facility] - [facility] MPV 9.7 9.3 - 12.4 fL 01/31/2025 9:21 AM CDT [facility] - [facility] RDW 12.9 11.5 - 14.5 % 01/31/2025 9:21 AM CDT [facility] - [facility] RDW-STDEV 43.7 37.1 - 48.7 fL 01/31/2025 9:21 AM CDT [facility] - [facility] Blood Venipuncture / Unknown 01/31/2025 9:10 AM CDT 01/31/2025 9:14 AM CDT us Parris Summers MD HEMATOLOGY ORDERABLES Final Result Performing Organization Address [facility] Co de Phone Number [facility]# [id number] [address] [place] [address] * MAGNESIUM LEVEL (01/31/2025 9:10 AM CDT) Only the most recent of2 resultswithin the time period is included. MAGNESIUM 1.8 1.6 - 2.6 mg/dL 01/31/2025 12:30 PM CDT [facility] Blood Venipuncture / Unknown 01/31/2025 9:10 AM CDT 01/31/2025 9:14 AM CDT Lee Ann Berman MD CHEMISTRY ORDERABLES Final Res ult Performing Organization Address [facility] de Phone Number [facility] [employer] [facility]# [id number] [address] [place] [address] * US VENOUS DOPPLER LEG BILATERAL (01/30/2025 1:52 PM CDT) Anatomical Region Laterality Modality Lower Extremity Ultrasound 01/30/2025 1:32 PM CDT Narrative 01/31/2025 7:55 AM CDT [address] [address] [email or web address] Venous Exam Complete Lower Extremity Duplex Patient: Jennifer Londono Study ID: [id number] Gender: F : 1975 Age: 49 Race: [facility] Height Study Date: 01/30/2025 Weight: Access. #: [id number] *Referring Physician:aPrris Li Aaron A *Ordering Physician:Parris LiGray Mixing Operator:Lorrie Giraldo Indications: R/O DVT perordering provider. History: PMH: No prior study is available for comparison. Study data: New node Study status: Routine. Procedure: A vascular evaluation was performed. Image quality was good. Complete lower extremity venous duplex evaluation. Doppler flow study including spectral analysis, color and durham scale imaging. Birthdate: Patient birthdate: 1975. Age: Patient is 49year(s) old. Sex: gender: female. Study date: Study date: 01/30/2025. Study time: 01:32 PM. Location: Vascular laboratory. Patient status: Inpatient. Impressions 1. No evidence of deep vein thrombosis involving the bilateral lower extremities. 2. 1.5cm x 1.1cm left popliteal fossa bakers cyst present. Tables: Venous flow: + +-------+ + !Location !Overall!Flow properties ! + +-------+ + !Right common femoral - !Patent !Phasic; spontaneous; normal augmentation; ! ! ! !compressible; no reflux ! + +-------+ + !Right femoral - !Patent !Compressible ! + +-------+ + !Right profunda femoral -!Patent !Compressible ! + +-------+ + !Right popliteal - !Patent !Phasic; spontaneous; normal augmentation; ! ! ! !compressible; no reflux ! + +-------+ + !Right posterior tibial -!Patent !Compressible ! + +-------+ + !Right peroneal - !Patent !Compressible ! + +-------+ + !Left common femoral - !Patent !Phasic; spontaneous; normal augmentation; ! ! ! !compressible; no reflux ! + +-------+ + !Left femoral - !Patent !Compressible ! + +-------+ + !Left profunda femoral - !Patent !Compressible ! + +-------+ + !Left popliteal - !Patent !Phasic; spontaneous; normal augmentation; ! ! ! !compressible; no reflux ! + +-------+ + !Left posterior tibial - !Patent !Compressible ! + +-------+ + !Left peroneal - !Patent !Compressible ! + +-------+ + *Velocities are expressed in cm/s, Diameters are expressed in mm Prepared and Electronically Authenticated Nii Dawkins [id number] Procedure Note Nii Dawkins MD - 01/31/2025 [address] [place] [address] [email or web address] Venous Exam Complete Lower Extremity Duplex Patient: Jennifer Londono Study ID:[id number] Gender: F :1975 Age: 49 Race: JUAN Height Study Date:01/30/2025 Weight: Access. #:[id number] *Referring Physician:Parris iL Aaron A *Ordering Physician:* Parris Summers *Gray Mixing Operator:Lorrie Giraldo Indications: R/O DVT perordering provider. History: PMH: No prior study is available for comparison. Study data: New node Study status: Routine. Procedure: A vascular evaluation was performed. Image quality was good. Complete lowerextremity venous duplex evaluation. Doppler flow study including spectralanalysis, color and durham scale imaging. Birthdate: Patient birthdate:1975. Age: Patient is 49year(s) old. Sex: gender: female. Studydate: Study date: 01/30/2025. Study time: 01:32 PM. [facility] Patient status: Inpatient. Impressions 1. No evidence of deep vein thrombosis involving the bilateral lower extremities. 2. 1.5cm x 1.1cm left popliteal fossa bakers cyst present. Tables: Venous flow: + +-------+ + !Location !Overall!Flow properties! + +-------+ + !Right common femoral - !Patent !Phasic; spontaneous; normalaugmentation; ! ! ! !compressible; no reflux! + +-------+ + !Right femoral - !Patent !Compressible! + +-------+ + !Right profunda femoral -!Patent !Compressible! + +-------+ + !Right popliteal - !Patent !Phasic; spontaneous; normalaugmentation; ! ! ! !compressible; no reflux! + +-------+ + !Right posterior tibial -!Patent !Compressible! + +-------+ + !Right peroneal - !Patent !Compressible! + +-------+ + !Left common femoral - !Patent !Phasic; spontaneous; normalaugmentation; ! ! ! !compressible; no reflux! + +-------+ + !Left femoral - !Patent !Compressible! + +-------+ + !Left profunda femoral - !Patent !Compressible! + +-------+ + !Left popliteal - !Patent !Phasic; spontaneous; normalaugmentation; ! ! ! !compressible; no reflux! + +-------+ + !Left posterior tibial - !Patent !Compressible! + +-------+ + !Left peroneal - !Patent !Compressible! + +-------+ + *Velocities are expressed in cm/s, Diameters are expressed in mm Prepared and Electronically Authenticated Nii Dawkins [id number] Parris Summers MD US ORDERABLES Final Result * UREA NITROGEN/CREATININE RATIO, URINE (01/30/2025 9:53 AM CDT) UREA NITROGEN, URINE 429 mg/dL 01/30/2025 10:49 AM CDT [facility] [employer]uling [facility] Comment:Reference range not established CREATININE, URINE 60.4 29.0 - 226.0 mg/dL 01/30/2025 10:49 AM CDT [facility] [employer] [facility] Comment:Reference Range vari es with fluid intake and diet. UREA/CREAT RATIO, UR 7.1 Reference Range not established mg/mg Creatinine 01/30/2025 10:49 AM T [facility] [employer] [facility] Urine URINE SPECIMEN OBTAINED BY CLEAN CATCH PROCEDURE / Unknown Collection / Unknown 01/30/2025 9:53 AM CDT 01/30/2025 10:04 AM CDT Parris Summers MD URINE ORDERABLES Final Resul t [facility] [employer]uling [facility]# [id number] [address] [place] [id number] * SODIUM, RANDOM URINE (01/30/2025 9:53 AM CDT) SODIUM, URINE 32 mmol/L 01/30/2025 10:40 AM CDT [facility] [employer] Scheduling [facility] Comment:Reference range not established Urine URINE SPECIMEN OBTAINED BY CLEAN CATCH PROCEDURE / Unknown Collection / Unknown 01/30/2025 9:53 AM CDT 01/30/2025 10:04 AM CDT Parris Summers MD URINE ORDERABLES Final Resul t Performing Organization Address [facility] de Phone Number [facility] [employer] Scheduling [facility] CLIA# [id number] [address] [place] [address] * (ABNORMAL) PROTEIN/CREATININE RATIO, URINE (01/30/2025 9:53 AM CDT) PROTEIN CONCENTRATION 233(H) 0 - 20 mg/dL 01/30/2025 10:52 AM CDT [facility] [employer] Scheduling [facility] CREATININE, URINE 61.1 29.0 - 226.0 mg/dL 01/30/2025 10:52 AM CDT [facility] [employer] Scheduling [facility] Comment:Reference Range vari es with fluid intake and diet. PROTEIN/CREAT RATIO, URINE 3.81(H) 0.00 - 0.19 mg/mg Creatinine 01/30/2025 10:52 AM CDT [facility] [employer] Scheduling [facility] Urine URINE SPECIMEN OBTAINED BY CLEAN CATCH PROCEDURE / Unknown Collection / Unknown 01/30/2025 9:53 AM CDT 01/30/2025 10:04 AM CDT Parris Summers MD URINE ORDERABLES Final Resul t Performing Organization Address [facility] Co de Phone Number [facility] [employer] Scheduling [facility] CLIA# [id number] [address] [place] [address] * OSMOLALITY, URINE (01/30/2025 9:53 AM CDT) OSMOLALITY, URINE 287 50 - 1,200 mOsm/kg 01/30/2025 10:30 AM CDT [facility] [employer] Sched[employer] [facility] Urine URINE SPECIMEN OBTAINED BY CLEAN CATCH PROCEDURE / Unknown Collection / Unknown 01/30/2025 9:53 AM CDT 01/30/2025 10:04 AM CDT Narrative [facility] [employer] [facility] - 01/30/2025 10:30 AM CDT Reference range: 50-1200 mOsm/kg H2O, depending on fluid intake. Parris Summers MD URINE ORDERABLES Final Resul t Performing Organization Address [facility]/ZIP Co de Phone Number [facility] [employer] Scheduling [facility] CLNICOLE# [id number] [address] [place] [address] * OSMOLALITY (01/29/2025 7:53 PM CDT) OSMOLALITY 300 275 - 300 mOsm/kg 01/29/2025 9:21 PM CDT [facility] [employer] [facility] Blood Venipuncture / Unknown 01/29/2025 7:53 PM CDT 01/29/2025 8:18 PM CDT Parris Summers MD CHEMISTRY ORDERABLES Final R esult Performing Organization Address City/[facility]/ZIP Co de Phone Number [facility] [employer] Scheduling [facility] CLNICOLE# [id number] [address] [place] [address] * MRI FOOT WO CONTRAST RIGHT (01/29/2025 5:53 PM CDT) Anatomical Region Laterality Modality Ankle / Foot Magnetic Resonan ce 01/29/2025 5:53 PM CDT Impressions 01/30/2025 7:54 AM CDT IMPRESSION: 1. Evaluation is significantly limited due to motion artifact. 2. Soft tissue wound along the plantar aspect of the great toe with surrounding soft tissue edema suspicious for soft tissue infection. Wound involves the flexor hallucis longus tendon at the level of the great toe. 3. Evaluation for acute osteomyelitis is limited due to motion artifact. Possible minimal marrow edema involving the great toe distal phalanx adjacent to the wound. Findings may relate to early acute osteomyelitis. Consider short-term interval follow-up/repeat MRI. 4. Severe chronic atrophy of the intrinsic foot musculature. 5. Subcutaneous edema about the foot greatest dorsally. DICTATION LOCATION: Location [address] [place] [address] Narrative 01/30/2025 7:54 AM CDT MRI FOOT WO CONTRAST RIGHT Ordering provider: PARRIS SUMMERS History: See Reason for Exam. Foot swelling, diabetic, osteomyelitis suspected, xray done. Comparison: None available Technique: Multiplanar multisequence MR examination of the right midfoot, forefoot, and toes was performed without contrast. FINDINGS: Motion limited evaluation. There is a soft tissue wound along the plantar aspect of the great toe. There is surrounding soft tissue edema suspicious for soft tissue infection. Possible minimal marrow edema involving the great toe distal phalanx adjacent to the wound. This region is limited in evaluation due to motion artifact. Mild first metatarsophalangeal joint osteoarthritis. Severe chronic atrophy of the intrinsic foot musculature. There is subcutaneous edema about the foot is dorsally. The wound along the plantar aspect of the great toe involves the flexor hallucis longus tendon. There is no intermetatarsal neuroma identified. Procedure Note Milan Pisano MD - 01/30/2025 MRI FOOT WO CONTRAST RIGHT Ordering provider: PARRIS SUMMERS History: See Reason for Exam. Foot swelling, diabetic, osteomyelitis suspected, xray done. Comparison: None available Technique: Multiplanar multisequence MR examination of the right midfoot, forefoot, and toes was performed without contrast. FINDINGS: Motion limited evaluation. There is a soft tissue wound along the plantar aspect of the great toe. There is surrounding soft tissue edema suspicious for soft tissue infection. Possible minimal marrow edema involving the great toe distal phalanx adjacent to the wound. This region is limited in evaluation due to motion artifact. Mild first metatarsophalangeal joint osteoarthritis. Severe chronic atrophy of the intrinsic foot musculature. There is subcutaneous edema about the foot is dorsally. The wound along the plantar aspect of the great toe involves the flexor hallucis longus tendon. There is no intermetatarsal neuroma identified. IMPRESSION: 1. Evaluation is significantly limited due to motion artifact. 2. Soft tissue wound along the plantar aspect of the great toe with surrounding soft tissue edema suspicious for soft tissue infection. Wound involves the flexor hallucis longus tendon at the level of the great toe. 3. Evaluation for acute osteomyelitis is limited due to motion artifact. Possible minimal marrow edema involving the great toe distal phalanx adjacent to the wound. Findings may relate to early acute osteomyelitis. Consider short-term interval follow-up/repeat MRI. 4. Severe chronic atrophy of the intrinsic foot musculature. 5. Subcutaneous edema about the foot greatest dorsally. DICTATION LOCATION: Location 2 [facility] Parris Summers MD MR ORDERABLES Final Result * RESPIRATORY PATHOGEN PCR PANEL (01/29/2025 4:29 PM CDT) [facility] Respiratory Pathogen PCR Panel NOT DETECTED No respiratory pathogen nucleic acids detected. 01/29/2025 5:40 PM CDT [facility] COVID-19 PCR NOT DETECTED Not Detected 01/29/2025 5:40 PM CDT [facility] Upper Respiratory ENTIRE NASOPHARYNX / Unknown Collection / Unknown 01/29/2025 4:29 PM CDT 01/29/2025 4:44 PM CDT Narrative [facility] - 01/29/2025 5:40 PM CDT The Film Array Respiratory Panel (RP2.1) is a multiplex nucleic acid detection test for 22 targets. Viruses: Adenovirus Coronavirus HKU1, NL63, 229E, and OC43 COVID-19/Severe Acute Respiratory Syndrome Coronavirus 2 Influenza A with the following subtypes: H1, H1-2009, and H3 Influenza B Human Metapneumovirus Parainfluenza virus 1, 2, 3, and 4 Respiratory Syncytial virus (RSV) Rhinovirus/Enterovirus (cannot differentiate due to genetic similarities) Bacteria: Bordetella pertussis Bordetella parapertussis Chlamydophila pneumoniae Mycoplasma pneumoniae Parris Summers MD MICROBIOLOGY - GENERAL ORDER ISIAH Final Result [facility]# [id number] [address] [facility] [address] [place] [address] * GI PATHOGEN PCR PANEL (01/29/2025 4:26 PM CDT) Pathologist [facility] GI Pathogen PCR panel NOT DETECTED No nucleic acids detected. 01/29/2025 6:10 PM CDT [facility] Stool STOOL SPECIMEN / Unknown Collection / Unknown 01/29/2025 4:26 PM CDT 01/29/2025 4:37 PM CDT Narrative [facility] - 01/29/2025 6:10 PM CDT The Film Array GI Panel is a multiplexed nucleic acid detection test for 22 targets of bacteria, viruses, and parasites in stool that cause infectious diarrhea. Bacteria: Campylobacter C. difficile Plesiomonas shigelloides Salmonella Vibrio Vibrio cholerae Yersinia enterocolitica Enteroaggregative E. Coli (EAEC) Enteropathogenic E. Coli (EPEC) Enterotoxigenic E. Coli (ETEC) Shiga-like toxin-producing E. Coli (STEC) E. Coli O157 Shigella/Enteroinvasive E. Coli (EIEC) Viruses: Adenovirus F 40/41 Astrovirus Norovirus GI/GII Rotavirus A Sapovirus Parasites: Cryptosporidium Cyclospora cayetanensis Entamoeba histolytica Giardia duodenalis Parris Summers MD MICROBIOLOGY - GENERAL ORDER ISIAH Final Result [facility]# [id number] [address] [place] [address] * XR CHEST PA AND LATERAL 2 VW (01/29/2025 3:15 PM CDT) Anatomical Region Laterality Modality Chest Computed Radiogr aphy 01/29/2025 3:15 PM CDT Impressions 01/29/2025 4:36 PM CDT IMPRESSION: 1. Small left pleural effusion with adjacent atelectasis or pneumonia. Interstitial pulmonary edema. Mild cardiomegaly. DICTATION LOCATION: Location 4 Narrative 01/29/2025 4:36 PM CDT EXAMINATION: XR CHEST PA AND LATERAL 2 VW DATE: 01/29/2025 3:15 PM HISTORY: Pulmonary Edema. See Reason for Exam COMPARISON: None. FINDINGS: Small left pleural effusion with adjacent atelectasis or pneumonia. Interstitial pulmonary edema. Mild cardiomegaly. No pneumothorax Procedure Note Robert Dhillon MD - 01/29/2025 EXAMINATION: XR CHEST PA AND LATERAL 2 VW DATE: 01/29/2025 3:15 PM HISTORY: Pulmonary Edema. See Reason for Exam COMPARISON: None. FINDINGS: Small left pleural effusion with adjacent atelectasis or pneumonia. Interstitial pulmonary edema. Mild cardiomegaly. No pneumothorax IMPRESSION: 1. Small left pleural effusion with adjacent atelectasis or pneumonia. Interstitial pulmonary edema. Mild cardiomegaly. DICTATION LOCATION: Location 4 Parris Summers MD DIAGNOSTIC IMAGING ORDERABLE S Final Result * TSH REFLEXIVE (01/29/2025 2:08 PM CDT) Pathologist [facility] TSH 1.92 0.27 - 4.20 uIU/mL 01/29/2025 4:01 PM CDT [facility] Blood Venipuncture / Unknown 01/29/2025 2:08 PM CDT 01/29/2025 3:14 PM CDT Parris Summers MD CHEMISTRY ORDERABLES Final R esult [facility]# [id number] [address] [place] [place] [address] * (ABNORMAL) IRON, TIBC, AND PERCENT SATURATION (01/29/2025 2:08 PM CDT) IRON 22(L) 37 - 145 ug/dL 01/29/2025 4:01 PM CDT [facility] TIBC 230(L) 250 - 450 ug/dL 01/29/2025 4:01 PM CDT [facility] IRON % SATURATION 10(L) 15 - 50 % 01/29/2025 4:01 PM CDT [facility] TRANSFERRIN 181(L) 200 - 360 mg/dL 01/29/2025 4:01 PM CDT [facility] Blood Venipuncture / Unknown 01/29/2025 2:08 PM CDT 01/29/2025 3:14 PM CDT Parris Summers MD CHEMISTRY ORDERABLES Final R esult Performing Organization Address [facility] Co de Phone Number [facility]# [id number] [address] [place] [address] * (ABNORMAL) SEDIMENTATION RATE (01/29/2025 2:08 PM CDT) ESR (SEDIMENTATION RATE) 76(H) <=30 mm/Hr 01/29/2025 4:00 PM CDT [facility] [employer] [facility] Blood Venipuncture / Unknown 01/29/2025 2:08 PM CDT 01/29/2025 3:15 PM CDT Parris Summers MD HEMATOLOGY ORDERABLES Final Result Performing Organization Address [facility] Co de Phone Number [facility] [employer] Sched[employer] [facility]# [id number] [address] [place] [address] * (ABNORMAL) HEMOGLOBIN A1C (01/29/2025 2:08 PM CDT) Pathologist [facility] HEMOGLOBIN A1C 8.4(H) <5.7 % 01/29/2025 3:35 PM CDT [facility] [employer] [facility] EST. AVG GLUCOSE, A1C 194 mg/dL 01/29/2025 3:35 PM CDT [facility] [employer] [facility] Blood Venipuncture / Unknown 01/29/2025 2:08 PM CDT 01/29/2025 3:15 PM CDT Narrative [facility] - 01/29/2025 3:35 PM CDT HGB A1C INTERPRETATION NORMAL: <5.7% PRE-DIABETES: 5.7 - 6.4% DIABETES: 6.5% OR GREATER Parris Summers MD CHEMISTRY ORDERABLES Final R esult Performing Organization Address City/[facility]/ZIP Co de Phone Number [facility] - [facility] MON[facility]HA# [id number] [address] [facility] [address] [place] [address] * (ABNORMAL) COMPREHENSIVE METABOLIC PANEL (01/29/2025 2:08 PM CDT) [facility] SODIUM 139 136 - 145 mmol/L 01/29/2025 4:01 PM T [facility] POTASSIUM 3.6 3.5 - 5.0 mmol/L 01/29/2025 4:01 PM T [facility] CHLORIDE 109(H) 98 - 107 mmol/L 01/29/2025 4:01 PM T [facility] CO2 20(L) 22 - 29 mmol/L 01/29/2025 4:01 PM T [facility] CALCIUM 9.8 8.6 - 10.2 mg/dL 01/29/2025 4:01 PM T [facility] BUN 34(H) 6 - 20 mg/dL 01/29/2025 4:01 PM T [facility] CREATININE 2.51(H) 0.51 - 0.95 mg/dL 01/29/2025 4:01 PM T [facility] GLUCOSE 134(H) 74 - 99 mg/dL 01/29/2025 4:01 PM T [facility] TOTAL PROTEIN 6.2(L) 6.7 - 8.6 g/dL 01/29/2025 4:01 PM T [facility] ALBUMIN 3.1(L) 3.5 - 5.2 g/dL 01/29/2025 4:01 PM T [facility] BILIRUBIN TOTAL 0.2(L) 0.3 - 1.2 mg/dL 01/29/2025 4:01 PM T [facility] ALKALINE PHOSPHATASE 90 35 - 104 U/L 01/29/2025 4:01 PM T [facility] AST 8 <33 U/L 01/29/2025 4:01 PM T [facility] ALT 9 <34 U/L 01/29/2025 4:01 PM [facility] GFR 23(L) >=60 mL/min/1.7 3 sq meter 01/29/2025 4:01 PM [facility] Comment:eGFR calculated with 2020 CKD-EPI equation. Vegetarian diet, extremely high or low muscle mass, and may affect results. Cystatin C with Glomerular Filtration Rate is a suitable alternative for these patients. ANION GAP 10 8 - 16 mmol/L 01/29/2025 4:01 PM [facility] Blood Venipuncture / Unknown 01/29/2025 2:08 PM CDT 01/29/2025 3:14 PM CDT Narrative [facility] - 01/29/2025 4:01 PM CDT Samples containing indocyanine green cause interferences on Total and/or Direct Bilirubin and must not be measured. Parris Summers MD CHEMISTRY ORDERABLES Final R esult [facility] CLIA# [id number] [address] [place] [address] from Last 3 Months Insurance [facility] [employer] [place] [address] Advance Directives For more information, please contact: [phone] * Full Code (Latest Code Status on File) Date Activated Date Inactivated Comments 01/29/2025 1:42 PM 02/02/2025 12:23 PM Care Teams Anesthesiologist And Critical Care Relationship Specialty Start Date End Date Jamaal Ibarra DO [address] [address] PCP - General Internal Medicine 07/11/18
--- NOTE | 2025-02-09 16:28 | ECG_ITS ---
Test Date: 2025-02-09 16:34:51 Measurements Intervals Bishop Rate: 74 P: -61 IL: 158 QRS: -72 QRSD: 133 T: 97 QT: 473 QTc: 527 Interpretive Statements SINUS RHYTHM POSSIBLE LEFT ATRIAL ENLARGEMENT [-0.1mV P WAVE IN V1/V2] LEFT BUNDLE BRANCH BLOCK ABNORMAL ECG Compared to ECG 01/28/2025 11:37:29 NO DIFFERENCE Electronically Signed On 02-10-2025 07:15:39 CDT by Andrade Escobar M.D.
[2025-02-09 16:38] LABS: Glucose Point of Care 226 mg/dl (65-105)
[2025-02-09 16:40] LABS: Basophils Absolute Auto 0.1 K/mm3 (0.0-0.1); Basophils Percent Auto 0.6 % (0.2-1.2); Eosinophils Absolute Auto 0.2 K/mm3 (0-0.3); Eosinophils Percent Auto 1.8 % (0-4.4); Hematocrit 38.5 % (37.0-47.0); Hemoglobin 12.3 g/dL (12.0-15.0); Immature Granulocyte Absolute 0.05 K/mm3 (0.00-0.031); Immature Granulocyte Percent A 0.5 % (0-0.5); Lymphocytes Absolute Auto 1.87 K/mm3 (0.9-3.2); Lymphocytes Percent Auto 17.3 % (18.3-44.2); Mean Corpuscular HGB Conc 31.9 g/dl (32-36); Mean Corpuscular Hemoglobin 28.4 pg (26-34); Mean Corpuscular Volume 88.9 fl (80-100); Mean Platelet Volume 10.6 fl (7.4-10.4); Monocytes Absolute Auto 0.5 K/mm3 (0.1-0.6); Monocytes Percent Auto 4.9 % (2.6-8.5); Neutrophils Absolute Auto 8.1 K/mm3 (1.3-6.7); Neutrophils Percent Auto 74.9 % (45.5-73.1); Platelet Count Result 270 k/mm3 (150-375); Red Blood Count 4.33 M/mm3 (4.2-5.4); Red Cell Distribution Width 12.9 % (11.5-14.5); White Blood Count 10.8 K/mm3 (4.5-10.0)
[2025-02-09 17:16] LABS: Alanine Aminotransferase 21 U/L (6-35); Albumin Level 3.9 g/dL (3.5-5.1); Alkaline Phosphatase 111 U/L (38-126); Anion Gap 10 mmol/L (4-12); Aspartate Amino Transferase 20 U/L (14-36); Bilirubin,Total 0.6 mg/dL (0.2-1.3); Blood Urea Nitrogen 36 mg/dL (7-17); Calcium 10.1 mg/dL (8.4-10.2); Carbon Dioxide 25 mmol/L (22-30); Chloride 102 mmol/L (98-107); Estimated CRCL calculation 30 ml/min; Estimated Glomerular Filt Rate 18; Glucose 259 mg/dL (65-110); Potassium 3.4 mmol/L (3.4-5.0); Sodium 137 mmol/L (137-145)
[2025-02-09] MEDS: POTASSIUM CHLORIDE 20 MEQ PACKET (FOR LIQUID) 40 MEQ PO (17:17)
[2025-02-09] MEDS: SODIUM CHLORIDE 0.9% IV 1,000 ML 999 ML IV CONT (17:18)
--- OUTSIDE RECORDS SUMMARY | 2025-02-09 17:20 | XMS_ITS | Encounter Summary ---
Author Organization [facility] Healthcare Address [address] [place] [address] Care Team Providers Care Taxi Servicer Name Role Phone Jamaal Ibarra DO Primary Care Provider [phone]- [phone] Reason for Visit * Diagnostic Imaging (Routine) - Closed Specialty Diagnoses / Procedures Referred By Liz borrero Referred To Contact Procedures Breast Imaging US Outside Reference Saul Ortiz NP Phone: tel: fax: Referral ID Status Reason Start Date Expiration Date Visits Re quested Visits Authorized [id number] Closed 10/16/2022 11/15/2023 1 1 Encounter Details Date Type Department Care Team (Late st Contact Info) Description 07/15/2019 Hospital Encounter [facility] [place], [place] [id number] Social History Tobacco Use Types Packs/Day Years [...] on file Legal Sex Female 12:16 AM DRY KILN BURNER Gender Identity Not on file Sexual Orientation [...] CDT) Impressions [facility] - 10/16/2022 11:47 AM DRY KILN BURNER These images are for Reference purposes only and have not been reviewed by [facility] Radiology. There will be no report generated by a [facility] Radiologist. Narrative [facility] - 10/16/2022 11:47 AM DRY KILN BURNER EXAMINATION: Images For Reference Purposes Only us Saul Ortiz NP IMG MAMMO PROCEDURES Final Result [facility] documented in this encounter Visit Diagnoses Not on filedocumented in this encounter Care Teams Taxi Servicer Relationship Specialty Start Date End Date Jamaal Ibarra DO PCP - General 10/22/17 documented as of this encounter
--- OUTSIDE RECORDS SUMMARY | 2025-02-09 17:20 | XMS_ITS | Encounter Summary ---
Author Organization [facility] Healthcare Address [address] [place] [address] Care Team Providers Care Toy Assembler Wood Name Role Phone Jamaal Ibarra DO Primary Care Provider [phone]- [phone] Reason for Visit * Diagnostic Imaging (Routine) - Closed Specialty Diagnoses / Procedures Referred By Liz borrero Referred To Contact Procedures Breast Imaging Diagnostic Outside Reference Saul Ortiz NP Phone: tel: fax: Referral ID Status Reason Start Date Expiration Date Visits Re quested Visits Authorized [id number] Closed 10/16/2022 11/15/2023 1 1 Encounter Details Date Type Department Care Team (Late st Contact Info) Description 07/15/2019 12:05 AM CDT Hospital Encounter [facility] [address] [place] [id number] Social History Tobacco Use Types Packs/Day Years [...] on file Legal Sex Female 12:16 AM 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 Radiology. There will be no report generated by a [facility] Radiologist. Narrative [facility] - 10/16/2022 11:47 AM DAIRY POWDER MIXER OPERATOR EXAMINATION: Images For Reference Purposes Only us Saul Ortiz NP IMG MAMMO PROCEDURES Final Result [facility] documented in this encounter Visit Diagnoses Not on filedocumented in this encounter Care Teams Toy Assembler Wood Relationship Specialty Start Date End Date Jamaal Ibarra DO PCP - General 10/22/17 documented as of this encounter
--- OUTSIDE RECORDS SUMMARY | 2025-02-09 17:20 | XMS_ITS | Encounter Summary ---
Author Organization [facility] Healthcare Address [address] [place] [address] Care Team Providers Care Heavy Equipment Technician Name Role Phone Jamaal Ibarra DO Primary Care Provider +1- [phone] Reason for Visit * Diagnostic Imaging (Routine) - Closed Specialty Diagnoses / Procedures Referred By Liz borrero Referred To Contact Procedures Breast Imaging Diagnostic Outside Reference Saul Ortiz NP Phone: tel: fax: Referral ID Status Reason Start Date Expiration Date Visits Re quested Visits Authorized [id number] Closed 10/16/2022 11/15/2023 1 1 Encounter Details Date Type Department Care Team (Late st Contact Info) Description 04/29/2020 12:05 AM CDT Hospital Encounter [facility] [address] [place] [address] Social History Tobacco Use Types Packs/Day Years [...] on file Legal Sex Female 12:16 AM HEALTHCARE CORPORATE ACCOUNT DIRECTOR Gender Identity Not on file Sexual Orientation [...] CDT) Impressions [facility] - 10/16/2022 11:47 AM HEALTHCARE CORPORATE ACCOUNT DIRECTOR These images are for Reference purposes only and have not been reviewed by [facility] Radiology. There will be no report generated by a [facility] Radiologist. Narrative [facility] - 10/16/2022 11:47 AM HEALTHCARE CORPORATE ACCOUNT DIRECTOR EXAMINATION: Images For Reference Purposes Only us Saul Ortiz NP IMG MAMMO PROCEDURES Final Result [facility] documented in this encounter Visit Diagnoses Not on filedocumented in this encounter Care Teams Heavy Equipment Technician Relationship Specialty Start Date End Date Jamaal Ibarra DO PCP - General 10/22/17 documented as of this encounter
--- OUTSIDE RECORDS SUMMARY | 2025-02-09 17:20 | XMS_ITS | Encounter Summary ---
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
--- OUTSIDE RECORDS SUMMARY | 2025-02-09 17:20 | XMS_ITS | Referral Summary ---
Author Organization [facility] Address [address] [place] [address] Care Team Providers Care Science Manager Name Role Phone Jamaal Ibarra DO Primary Care Provider +1- [phone] Allergies Active Allergy Reactions Criticality Noted Date [...] 09/06/2021 Assessment & Plan (09/06/2021 9:49 AM HR SHARED SERVICES CONSULTANT): -Fatigue is most likely multifactorial as she [...] 09/16/2017 Assessment & Plan (09/06/2021 9:45 AM HR SHARED SERVICES CONSULTANT): -Taking weekly Vitamin D -Will repeat Vitamin D level Type 1 diabetes mellitus with hyperglycemia 03/2017 Nocturia 06/12/2017 Gastroesophageal reflux disease 10/27/2014 Seronegative rheumatoid arthritis 10/27/2014 Swelling of hand 10/27/2014 Fibroid 10/21/2014 Fibromyalgia 06/09/2014 Hypertension 04/27/2014 Assessment & Plan (09/06/2021 9:45 AM HR SHARED SERVICES CONSULTANT): -BP today is 121/81 -Will continue same antihypertensive medications at this time. Hyperlipidemia 04/27/2014 Assessment & Plan (09/06/2021 9:45 AM HR SHARED SERVICES CONSULTANT): -Will continue statin as it is being [...] 01/22/2023 Assessment & Plan (09/06/2021 9:45 AM HR SHARED SERVICES CONSULTANT): -Currently taking MDI -A1C on 09/06/21 was [...] 06/12/201701/05 Assessment & Plan (09/06/2021 9:07 AM HR SHARED SERVICES CONSULTANT): -States she has been off of LT4 [...] on file Legal Sex Female 12:16 AM HR SHARED SERVICES CONSULTANT Gender Identity Not on file Sexual Orientation Not on file Last Filed Vital Signs Vital Sign Reading Time Taken Comments Blood Pressure 138/81 10/23/2024 8:12 AM HR SHARED SERVICES CONSULTANT Pulse 78 10/23/2024 8:12 AM HR SHARED SERVICES CONSULTANT Temperature 36.7 C (98.1 F) 10/23/2024 8:12 AM HR SHARED SERVICES CONSULTANT Respiratory Rate 18 04/04/2024 4:54 PM CDT Oxygen Saturation 95% 04/04/2024 4:54 PM CDT Inhaled Oxygen Concentration - - Weight 128.7 kg (283 lb 12.8 oz) 10/23/2024 8:12 AM HR SHARED SERVICES CONSULTANT Height 172.7 cm (5' 8 ) 10/23/2024 8:12 AM HR SHARED SERVICES CONSULTANT Body Mass Index 43.15 10/23/2024 8:12 AM HR SHARED SERVICES CONSULTANT Plan of Treatment Not on file Procedures Procedure Name Priority Date/Time Associated Diagnosis Comments POCT HEMOGLOBIN A1C Routine 10/23/2024 8:29 AM HR SHARED SERVICES CONSULTANT Type 1 diabetes mellitus with hyperglycemia (HCC) [...] * POCT hemoglobin A1c (10/23/2024 8:29 AM HR SHARED SERVICES CONSULTANT) Hemoglobin A1C, POC 9.1 4.0 - 5.6 % Blood 10/23/2024 8:29 AM HR SHARED SERVICES CONSULTANT us Evelin Monzon NP POINT OF CARE [...] Dorman MD LAB BLOOD ORDERABLES Final Result [facility] Department [place] [address] * Albumin Creatinine Ratio, Urine (01/24/2024) Urine Sarah Haskins MD LAB URINE ORDERABLES Final Resu lt Performing Organization Address [facility] Co de Phone Number EXTERNAL LAB * TSH (01/24/2024) Blood Sarah Haskins MD LAB BLOOD ORDERABLES Final Resu lt Performing Organization Address [facility] Co de Phone Number EXTERNAL LAB * Lipid panel (01/24/2024) Blood Sarah Haskins MD LAB BLOOD ORDERABLES Final Resu lt Performing Organization Address [facility] Co de Phone Number EXTERNAL LAB * [...] Clinical follow-up is recommended. Electronically signed by: eTresa Ortiz M.D. Narrative 01/11/2023 11:58 AM CDT [...] nipple by physician COMPARISON: Outside exams from [place] 09/13/2022to 07/08/2019 TECHNIQUE: Full field digital mammographic [...] 5:08 PM CDT Performed at: - [facility] [id number] High Lift Driver: Link Myles PhD, Phone: [phone] us Lorrie Saavedra MD LAB MICROBIOLOGY - GENERAL ORD ERABLES Final Result [facility] - 01 from Last 3 Months or Most Recently Relevant to Health [place] [address] BL CHOICE [place]F [place]PO [place]F [place] GENERIC COPAY ASSIST [place]F [place] WORKERS COMPENSATION GENERIC [place] [address] Care Teams Science Manager Relationship Specialty Start Date End Date Jamaal Ibarra DO PCP - General 10/22/17
--- OUTSIDE RECORDS SUMMARY | 2025-02-09 17:20 | XMS_ITS | Encounter Summary ---
Author Organization [facility] Healthcare Address [address] [place] [address] Care Team Providers Care Pneumatic Systems Operator Name Role Phone Jamaal Ibarra DO Primary Care Provider +1- [phone] Reason for Visit * Diagnostic Imaging (Routine) - Closed Specialty Diagnoses / Procedures Referred By Liz borrero Referred To Contact Procedures Breast Imaging Screening Outside Reference Saul Ortiz NP Phone: tel: fax: Referral ID Status Reason Start Date Expiration Date Visits Re quested Visits Authorized [id number] Closed 10/16/2022 11/15/2023 1 1 Encounter Details Date Type Department Care Team (Late st Contact Info) Description 07/08/2019 Hospital Encounter [facility] [place], [place] [id number] Social History Tobacco Use Types Packs/Day Years [...] on file Legal Sex Female 12:16 AM LMFT Gender Identity Not on file Sexual Orientation [...] CDT) Impressions [facility] - 10/16/2022 11:48 AM LMFT These images are for Reference purposes only and have not been reviewed by [facility] Radiology. There will be no report generated by a [facility] Radiologist. Narrative [facility] - 10/16/2022 11:48 AM LMFT EXAMINATION: Images For Reference Purposes Only us Saul Ortiz NP IMG MAMMO PROCEDURES Final Result [facility] documented in this encounter Visit Diagnoses Not on filedocumented in this encounter Care Teams Pneumatic Systems Operator Relationship Specialty Start Date End Date Jamaal Ibarra DO PCP - General 10/22/17 documented as of this encounter
--- OUTSIDE RECORDS SUMMARY | 2025-02-09 17:20 | XMS_ITS | Encounter Summary ---
Author Organization [facility] Healthcare Address [address] [place] [address] Care Team Providers Care Crm Developer Name Role Phone Jamaal Ibarra DO Primary Care Provider +1- [phone] Reason for Visit * Diagnostic Imaging (Routine) - Closed Specialty Diagnoses / Procedures Referred By Liz borrero Referred To Contact Procedures Breast Imaging [place] Outside Reference Saul Ortiz NP Phone: tel: fax: Referral ID Status Reason Start Date Expiration Date Visits Re quested Visits Authorized [id number] Closed 10/16/2022 11/15/2023 1 1 Encounter Details Date Type Department Care Team (Late st Contact Info) Description 04/29/2020 Hospital Encounter [facility] [address] [place] [address] Social History Tobacco Use Types Packs/Day [...] on file 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 There will be no report generated by a [facility] Radiologist. Narrative [facility] - 10/16/2022 11:47 AM SCIENCE INSTRUCTOR EXAMINATION: Images For Reference Purposes Only us Saul Ortiz NP IMG MAMMO PROCEDURES Final Result [facility] documented in this encounter Visit Diagnoses Not on filedocumented in this encounter Care Teams Crm Developer Relationship Specialty Start Date End Date Jamaal Ibarra DO PCP - General 10/22/17 documented as of this encounter
--- OUTSIDE RECORDS SUMMARY | 2025-02-09 17:21 | XMS_ITS | Clinical Summary ---
Author Organization [facility] Address [address] [place] [address] Care Team Providers Care Mash Processing Operator Name Role Phone Jamaal Ibarra DO Primary Care Provider +1- [phone] Allergies Active Allergy Reactions Criticality Noted Date [...] 09/06/2021 Assessment & Plan (09/06/2021 9:49 AM FLIGHT READINESS TECHNICIAN): -Fatigue is most likely multifactorial as she [...] 09/16/2017 Assessment & Plan (09/06/2021 9:45 AM FLIGHT READINESS TECHNICIAN): -Taking weekly Vitamin D -Will repeat Vitamin D level Type 1 diabetes mellitus with hyperglycemia 03/2017 Nocturia 06/12/2017 Gastroesophageal reflux disease 10/27/2014 Seronegative rheumatoid arthritis 10/27/2014 Swelling of hand 10/27/2014 Fibroid 10/21/2014 Fibromyalgia 06/09/2014 Hypertension 04/27/2014 Assessment & Plan (09/06/2021 9:45 AM FLIGHT READINESS TECHNICIAN): -BP today is 121/81 -Will continue same antihypertensive medications at this time. Hyperlipidemia 04/27/2014 Assessment & Plan (09/06/2021 9:45 AM FLIGHT READINESS TECHNICIAN): -Will continue statin as it is being [...] 01/22/2023 Assessment & Plan (09/06/2021 9:45 AM FLIGHT READINESS TECHNICIAN): -Currently taking MDI -A1C on 09/06/21 was [...] 06/12/201701/05 Assessment & Plan (09/06/2021 9:07 AM FLIGHT READINESS TECHNICIAN): -States she has been off of LT4 [...] on file Legal Sex Female 12:16 AM FLIGHT READINESS TECHNICIAN Gender Identity Not on file Sexual Orientation Not on file Obstetrics History Para Term AB IAB SAB Ectopic Multiple Livin g Live Births 4 0 0 Date Outcome GA Total Labor Labor/2nd/3rd Weight Sex Type Anes PTL Rafia A1 A5 Name Clin Last Filed Vital Signs Vital Sign Reading Time Taken Comments Blood Pressure 138/81 10/23/2024 8:12 AM FLIGHT READINESS TECHNICIAN Pulse 78 10/23/2024 8:12 AM FLIGHT READINESS TECHNICIAN Temperature 36.7 C (98.1 F) 10/23/2024 8:12 AM FLIGHT READINESS TECHNICIAN Respiratory Rate 18 04/04/2024 4:54 PM CDT Oxygen Saturation 95% 04/04/2024 4:54 PM CDT Inhaled Oxygen Concentration - - Weight 128.7 kg (283 lb 12.8 oz) 10/23/2024 8:12 AM FLIGHT READINESS TECHNICIAN Height 172.7 cm (5' 8 ) 10/23/2024 8:12 AM FLIGHT READINESS TECHNICIAN Body Mass Index 43.15 10/23/2024 8:12 AM FLIGHT READINESS TECHNICIAN Plan of Treatment Health Maintenance Due Date [...] POCT HEMOGLOBIN A1C Routine 10/23/2024 8:29 AM FLIGHT READINESS TECHNICIAN Type 1 diabetes mellitus with hyperglycemia (HCC) [...] * POCT hemoglobin A1c (10/23/2024 8:29 AM FLIGHT READINESS TECHNICIAN) Hemoglobin A1C, POC 9.1 4.0 - 5.6 % Blood 10/23/2024 8:29 AM FLIGHT READINESS TECHNICIAN us Evelin Monzon NP POINT OF CARE [...] BLOOD ORDERABLES Final Result Performing Organization Address [facility] Co de Phone Number [facility] Department [place] [address] * Albumin Creatinine Ratio, Urine (01/24/2024) Urine Sarah Haskins MD LAB URINE ORDERABLES Final Resu lt Performing Organization Address [facility] Co de Phone Number EXTERNAL LAB * TSH (01/24/2024) Blood Sarah Haskins MD LAB BLOOD ORDERABLES Final Resu lt Performing Organization Address [facility] Co de Phone Number EXTERNAL LAB * Lipid panel (01/24/2024) Blood Sarah Haskins MD LAB BLOOD ORDERABLES Final Resu lt Performing Organization Address [facility] Co de Phone Number EXTERNAL LAB [...] nipple by physician COMPARISON: Outside exams from [place] 09/13/2022to 07/08/2019 TECHNIQUE: Full field digital mammographic [...] 07/12/2021 5:08 PM CDT Performed at: - [facility] [id number] Reliability Engineer: Link Myles PhD, Phone: [phone] us Lorrie Saavedra MD LAB MICROBIOLOGY - GENERAL ORD ERABLES Final Result [facility] from Last 3 Months or Most Recently Relevant to Health [place] [address] [facility] BL CHOICE PRF PPO [place] GENERIC COPAY ASSIST [place]F [place] WORK[place] COMPENS[place] GENER[place] WORKERS COMPENSATION GENERIC Care Teams Mash Processing Operator Relationship Specialty Start Date End Date Jamaal Ibarra DO PCP - General 10/22/17
--- OUTSIDE RECORDS SUMMARY | 2025-02-09 17:21 | XMS_ITS | Encounter Summary ---
Author Organization [facility] Address [address] [place] [address] Care Team Providers Care Linux System Engineer Name Role Phone Jamaal Ibarra DO Primary Care Provider Encounter Details Date Type Department Care Team (Latest Contact Info) Description 03/23/2002 Outpatient Historical [facility] [place] [address] [place] [address] MENSTRUAL DISORDER NEC (Primary Dx) Social History Tobacco Use Types Packs/Day Years Used Date Smoking Tobacco: Never Assessed Comments Unknown Sex and Gender Information Value Date Recorded Sex Assigned at Not on file Legal Sex Female 3:50 AM SECURITY NURSE Gender Identity Not on file Sexual Orientation [...] documented as of this encounter Care Teams Linux System Engineer Relationship Specialty Start Date End Date Jamaal Ibarra DO [address] [facility] [address] [place] [address] PCP - General Internal Medicine 07/11/18 documented as of this encounter
--- OUTSIDE RECORDS SUMMARY | 2025-02-09 17:21 | XMS_ITS | Encounter Summary ---
Author Organization [facility] Address [address] [place] [address] Phone Care Team Providers Care Food Safety Field Specialist Name Role Phone Jamaal Ibarra DO Primary Care Provider [phone]- [phone] Encounter Details Date Type Department Care Team (Late st Contact Info) Description 10/18/[address] [place] [address] [place] [address] Era Taylor CMA Social History Tobacco Use Types Packs/Day Years Used Date Smoking Tobacco: Never Smokeless Tobacco: Never Comments Unknown Sex and Gender Information Value Date Recorded Sex Assigned at Not on file Legal Sex Female 12:16 AM 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
--- OUTSIDE RECORDS SUMMARY | 2025-02-09 17:21 | XMS_ITS | CONTINUITY OF CARE DOCUMENT ---
Author Name shyanalili Address Unknown Organization [facility] Address [address] [place] [address] [address] [place] [address] Phone [phone] Care Team Providers Care Binding Printer Name Role Phone Edwar JAY, Rigoberto Unavailable [phone] JANNETTE JAY, LAYTON Unavailable [phone] JANETH GUZMAN DO Unavailable [phone] INSURANCE PROVIDERS Payer name Policy type / Coverage type Krypton red green party ID [facility] [id number]
--- OUTSIDE RECORDS SUMMARY | 2025-02-09 17:21 | XMS_ITS | Encounter Summary ---
Author Organization [facility] Address [address] [place] [address] Phone Care Team Providers Care Neonatologist Name Role Phone Jamaal Ibarra DO Primary Care Provider [phone]- [phone] Encounter Details Date Type Department Care Team (Late st Contact Info) Description 08/03/2021 Orders Only [facility] Rheumatology [address] [facility] 5th [place] [address] [place] [id number] Jana Medley CMA Social History Tobacco Use Types Packs/Day Years Used Date Smoking Tobacco: Never Comments Unknown Sex and Gender Information Value Date Recorded Sex Assigned at Not on file 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
--- OUTSIDE RECORDS SUMMARY | 2025-02-09 17:21 | XMS_ITS | Clinical Summary ---
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 [address] [place] [address] Citlalli Altamirano MD from Last [...] on file Legal Sex Female 3:50 AM [employer] PARKER Gender Identity Not on file Sexual Orientation [...] - 99 mg/dL 02/01/2025 9:24 PM CDT [facility] SPECIMEN SOURCE, GLUCOSE POC Whole Blood 02/01/2025 9:24 PM CDT [facility] Blood, whole 02/01/2025 9:24 PM CDT 02/02/2025 6:24 AM CDT us Dorinda Oscar DO POINT OF CARE TESTING Final Re sult [facility] CLIA# [id number] [address] [place] [address] * XR CHEST PA OR AP 1 [...] resultswithin the time period is included. Pathologist [facility] WBC 8.9 4.0 - 9.8 K/uL 02/01/2025 9:40 AM CDT [facility] SERVICES [facility] RBC 3.61(L) 3.90 - 4.90 M/uL 02/01/2025 9:40 AM CDT [facility] SERVICES [facility] HEMOGLOBIN 10.4(L) 11.8 - 14.8 g/dL 02/01/2025 9:40 AM CDT [facility] SERVICES [facility] HEMATOCRIT 33.5(L) 35.5 - 44.0 % 02/01/2025 9:40 AM CDT [facility] SERVICES - [facility] MCV 92.8 82.0 - 99.0 fL 02/01/2025 9:40 AM CDT [employer] LABORATORY SERVICES - [facility] MCH 28.8 27.2 - 32.6 pg 02/01/2025 9:40 AM CDT [employer] [facility]ORATORY SERVICES - [facility] MCHC 31.0(L) 31.5 - 35.5 g/dL 02/01/2025 9:40 AM CDT [employer] LABORATORY SERVICES - . [facility] RDW 13.0 11.5 - 14.5 % 02/01/2025 9:40 AM CDT [employer] [facility]ORATORY SERVICES - [facility] RDW-STDEV 43.9 37.1 - 48.7 fL 02/01/2025 9:40 AM CDT [employer] LABORATORY SERVICES - [facility] PLATELETS 278 140 - 350 K/uL 02/01/2025 9:40 AM CDT [employer] [facility]ORATORY SERVICES - [facility] MPV 9.6 9.3 - 12.4 fL 02/01/2025 9:40 AM CDT [employer] LABORATORY SERVICES - [facility] NEUTROPHILS 76 % 02/01/2025 9:40 AM CDT [employer] LABORATORY SERVICES - . [facility] LYMPHOCYTES 15 % 02/01/2025 9:40 AM CDT [employer] LABORATORY SERVICES - . [facility] MONOCYTES 5 % 02/01/2025 9:40 AM CDT [employer] LABORATORY SERVICES - . [facility] EOSINOPHILS 3 % 02/01/2025 9:40 AM CDT [employer] LABORATORY SERVICES - . [facility] BASOPHILS 1 % 02/01/2025 9:40 AM CDT [employer] LABORATORY SERVICES - . [facility] IMMATURE GRANULOCYTES 1 % 02/01/2025 9:40 AM CDT [employer] [facility]ATORY SERVICES - . [facility] Comment:IG (Immature Granulo cyte) count includes Metamyelocytes, Myelocytes, and Promyelocytes NEUTROPHIL ABSOLUTE 6.69 1.90 - 7.00 K/uL 02/01/2025 9:40 AM CDT [employer]ATORY SERVICES - . [facility] LYMPHOCYTE ABSOLUTE 1.36 0.70 - 4.50 K/uL 02/01/2025 9:40 AM CDT [employer] LABORATORY SERVICES - . [facility] MONOCYTE ABSOLUTE 0.44 0.10 - 1.30 K/uL 02/01/2025 9:40 AM CDT [employer] LABORATORY SERVICES - [facility] EOSINOPHIL ABSOLUTE 0.23 0.00 - 0.70 K/uL 02/01/2025 9:40 AM CDT [facility] SERVICES - . [facility] BASOPHILS ABSOLUTE 0.05 0.00 - 0.20 K/uL 02/01/2025 9:40 AM CDT [facility] SERVICES - . [facility] IMMATURE GRANULOCYTES ABSOLUTE 0.09(H) 0.00 - 0.03 K/uL 02/01/2025 9:40 AM CDT [facility] SERVICES - [facility] Blood Venipuncture / Unknown 02/01/2025 8:41 AM CDT 02/01/2025 9:19 AM CDT Lee Ann Berman MD HEMATOLOGY ORDERABLES Final Re sult Performing Organization Address [facility] Co de Phone Number [facility] CLIA# [id number] [address] [place] [address] * (ABNORMAL) C-REACTIVE PROTEIN (02/01/2025 8:41 AM CDT) Only the most recent of2 resultswithin the time period is included. CRP 19.8(H) <5.0 mg/L 02/01/2025 12:44 PM CDT [facility] Blood Venipuncture / Unknown 02/01/2025 8:41 AM CDT 02/01/2025 9:19 AM CDT Lee Ann Berman MD CHEMISTRY ORDERABLES Final Res ult Performing Organization Address [facility]/ZIP Co de Phone Number [facility] CLIA# [id number] [address] [place] [address] * (ABNORMAL) BASIC METABOLIC PANEL (02/01/2025 8:41 AM CDT) Only the most recent of3 resultswithin the time period is included. SODIUM 139 136 - 145 mmol/L 02/01/2025 10:01 AM CDT [facility] POTASSIUM 3.6 3.5 - 5.0 mmol/L 02/01/2025 10:01 AM [facility] CHLORIDE 108(H) 98 - 107 mmol/L 02/01/2025 10:01 AM [facility] CO2 20(L) 22 - 29 mmol/L 02/01/2025 10:01 AM [facility] CALCIUM 9.8 8.6 - 10.2 mg/dL 02/01/2025 10:01 AM [facility] BUN 22(H) 6 - 20 mg/dL 02/01/2025 10:01 AM [facility] CREATININE 1.90(H) 0.51 - 0.95 mg/dL 02/01/2025 10:01 AM [facility] GLUCOSE 167(H) 74 - 99 mg/dL 02/01/2025 10:01 AM [facility] GFR 32(L) >=60 mL/min/1.7 3 sq meter 02/01/2025 10:01 AM [facility] Comment:eGFR calculated with 2020 CKD-EPI equation. Vegetarian diet, extremely high or low muscle mass, and may affect results. Cystatin C with Glomerular Filtration Rate is a suitable alternative for these patients. ANION GAP 11 8 - 16 mmol/L 02/01/2025 10:01 AM [facility] Blood Venipuncture / Unknown 02/01/2025 8:41 AM CDT 02/01/2025 9:19 AM CDT us Lee Ann Berman MD CHEMISTRY ORDERABLES Final Res ult [facility]# [id number] [address] [place] [address] * (ABNORMAL) URINALYSIS WITH REFLEX MICROSCOPIC (01/31/2025 11:40 AM CDT) COLOR UA Pale Yellow Pale to Dark Yellow 01/31/2025 12:14 PM T [employer] LABORATORY SERVICES - . [facility] CLARITY UA Clear Clear 01/31/2025 12:14 PM T [employer] LABORATORY SERVICES - [facility] SPECIFIC GRAVITY UA 1.006 1.003 - 1.035 01/31/2025 12:14 PM T [employer] LABORATORY SERVICES - [facility] PH UA 7.0 5.0 - 8.0 01/31/2025 12:14 PM T [employer] LABORATORY SERVICES - [facility] LEUKOCYTE ESTERASE UA Negative Negative 01/31/2025 12:14 PM T [employer] LABORATORY SERVICES - . [facility] NITRITE UA Negative Negative 01/31/2025 12:14 PM T [employer] LABORATORY SERVICES - . [facility] PROTEIN UA 2+(A) Negative 01/31/2025 12:14 PM [facility] [employer] LABORATORY SERVICES - . [place] GLUCOSE UA Negative Negative 01/31/2025 12:14 PM T [employer] LABORATORY SERVICES - . [facility] KETONES UA Negative Negative 01/31/2025 12:14 PM T [employer] LABORATORY SERVICES - . [facility] UROBILINOGEN UA Normal <2.0 mg/dL 12:14 PM T [employer] LABORATORY SERVICES - . [place] BILIRUBIN UA Negative Negative 01/31/2025 12:14 PM T [employer] LABORATORY SERVICES - . [facility] BLOOD UA Negative Negative 01/31/2025 12:14 PM T [employer] LABORATORY SERVICES - . [place] WBC UA 0-2 0 - 2 /hpf 01/31/2025 12:14 PM T [employer] LABORATORY SERVICES - . [facility] RBC UA 0-2 0 - 2 /hpf 01/31/2025 12:14 PM T [employer] LABORATORY SERVICES - . [facility] BACTERIA UA Negative Negative /hpf 01/31/2025 12:14 PM T [employer] LABORATORY SERVICES - . [facility] EPITHELIAL CELLS, URINE 0-5 0 - 5 /hpf 01/31/2025 12:14 PM [facility] [employer] LABORATORY SERVICES - . [place] Urine URINE SPECIMEN OBTAINED BY CLEAN CATCH PROCEDURE / Unknown 01/31/2025 11:40 AM CDT 01/31/2025 11:40 AM CDT Lee Ann Berman MD URINE ORDERABLES Final Result [employer] SERVICES - [facility] CLIA# [id number] [address] [place] [address] * (ABNORMAL) CBC WITHOUT DIFFERENTIAL (01/31/2025 9:10 AM CDT) Only the most recent of2 resultswithin the time period is included. WBC 7.6 4.0 - 9.8 K/uL 01/31/2025 9:21 AM CDT [employer] LABORATORY SERVICES - [facility] RBC 3.54(L) 3.90 - 4.90 M/uL 01/31/2025 9:21 AM CDT [employer] LABORATORY SERVICES - [facility] HEMOGLOBIN 10.3(L) 11.8 - 14.8 g/dL 01/31/2025 9:21 AM CDT [employer] LABORATORY SERVICES - [facility] HEMATOCRIT 32.6(L) 35.5 - 44.0 % 01/31/2025 9:21 AM CDT [employer] LABORATORY SERVICES - [facility] MCV 92.1 82.0 - 99.0 fL 01/31/2025 9:21 AM CDT [employer] LABORATORY SERVICES - [facility] MCH 29.1 27.2 - 32.6 pg 01/31/2025 9:21 AM CDT [employer] LABORATORY SERVICES - [facility] MCHC 31.6 31.5 - 35.5 g/dL 01/31/2025 9:21 AM CDT [employer] LABORATORY SERVICES - [facility] PLATELETS 247 140 - 350 K/uL 01/31/2025 9:21 AM CDT [employer] LABORATORY SERVICES - [facility] MPV 9.7 9.3 - 12.4 fL 01/31/2025 9:21 AM CDT [employer] LABORATORY SERVICES - [facility] RDW 12.9 11.5 - 14.5 % 01/31/2025 9:21 AM CDT [employer] LABORATORY SERVICES - [facility] RDW-STDEV 43.7 37.1 - 48.7 fL 01/31/2025 9:21 AM CDT [employer] LABORATORY SERVICES - [facility] Blood Venipuncture / Unknown 01/31/2025 9:10 AM CDT 01/31/2025 9:14 AM CDT us Parris Summers MD HEMATOLOGY ORDERABLES Final Result Performing Organization Address [facility] Co de Phone Number [facility]# [id number] [address] [place] [address] * MAGNESIUM LEVEL (01/31/2025 9:10 AM CDT) Only the most recent of2 resultswithin the time period is included. MAGNESIUM 1.8 1.6 - 2.6 mg/dL 01/31/2025 12:30 PM CDT [facility] Blood Venipuncture / Unknown 01/31/2025 9:10 AM CDT 01/31/2025 9:14 AM CDT Lee Ann Berman MD CHEMISTRY ORDERABLES Final Res ult Performing Organization Address [facility] de Phone Number [facility] [employer] [facility]# [id number] [address] [place] [address] * US VENOUS DOPPLER LEG BILATERAL (01/30/2025 1:52 PM CDT) Anatomical Region Laterality Modality Lower Extremity Ultrasound 01/30/2025 1:32 PM CDT Narrative 01/31/2025 7:55 AM CDT [address] [address] [email or web address] Venous Exam Complete Lower Extremity Duplex Patient: Jennifer Londono Study ID: [id number] Gender: F : 1975 Age: 49 Race: [facility] Height Study Date: 01/30/2025 Weight: Access. #: [id number] *Referring Physician:Parris Li Aaron A *Ordering Physician:Parris LiStudent Ambassador:Lorrie Giraldo Indications: R/O DVT perordering provider. History: [...] mm Prepared and Electronically Authenticated Nii Dawkins [id number] Procedure Note Nii Dawkins MD - 01/31/2025 [address] [place] [address] [email or web address] Venous Exam Complete Lower Extremity Duplex Patient: Jennifer Londono Study ID:[id number] Gender: F :1975 Age: 49 Race: JUAN Height Study Date:01/30/2025 Weight: Access. #:[id number] *Referring Physician:Parris Li Aaron A *Ordering Physician:* Parris Summers *Student Ambassador:Lorrie Giraldo Indications: R/O DVT perordering provider. History: [...] mm Prepared and Electronically Authenticated Nii Dawkins [id number] Parris Summers MD US ORDERABLES Final Result * UREA NITROGEN/CREATININE RATIO, URINE (01/30/2025 9:53 AM CDT) UREA NITROGEN, URINE 429 mg/dL 01/30/2025 10:49 AM CDT [facility] [employer] [facility] Comment:Reference range not established CREATININE, URINE 60.4 29.0 - 226.0 mg/dL 01/30/2025 10:49 AM CDT [facility] [employer] [facility] Comment:Reference Range vari es with fluid intake and diet. UREA/CREAT RATIO, UR 7.1 Reference Range not established mg/mg Creatinine 01/30/2025 10:49 AM T [facility] [employer] [facility] Urine URINE SPECIMEN OBTAINED BY CLEAN CATCH PROCEDURE / Unknown Collection / Unknown 01/30/2025 9:53 AM CDT 01/30/2025 10:04 AM CDT Parris Summers MD URINE ORDERABLES Final Resul t [facility] [employer] [facility]# [id number] [address] [place] [id number] * SODIUM, RANDOM URINE (01/30/2025 9:53 AM CDT) SODIUM, URINE 32 mmol/L 01/30/2025 10:40 AM CDT [facility] [employer] [facility] Comment:Reference range not established Urine URINE SPECIMEN OBTAINED BY CLEAN CATCH PROCEDURE / Unknown Collection / Unknown 01/30/2025 9:53 AM CDT 01/30/2025 10:04 AM CDT Parris Summers MD URINE ORDERABLES Final Resul t Performing Organization Address [facility] de Phone Number [facility] [employer] [facility] CLIA# [id number] [address] [place] [address] * (ABNORMAL) PROTEIN/CREATININE RATIO, URINE (01/30/2025 9:53 AM CDT) PROTEIN CONCENTRATION 233(H) 0 - 20 mg/dL 01/30/2025 10:52 AM CDT [facility] [employer] [facility] CREATININE, URINE 61.1 29.0 - 226.0 mg/dL 01/30/2025 10:52 AM CDT [facility] [employer] [facility] Comment:Reference Range vari es with fluid intake and diet. PROTEIN/CREAT RATIO, URINE 3.81(H) 0.00 - 0.19 mg/mg Creatinine 01/30/2025 10:52 AM CDT [facility] [employer] [facility] Urine URINE SPECIMEN OBTAINED BY CLEAN CATCH PROCEDURE / Unknown Collection / Unknown 01/30/2025 9:53 AM CDT 01/30/2025 10:04 AM CDT Parris Summers MD URINE ORDERABLES Final Resul t Performing Organization Address [facility] Co de Phone Number [facility] [employer] [facility] CLIA# [id number] [address] [place] [address] * OSMOLALITY, URINE (01/30/2025 9:53 AM CDT) OSMOLALITY, URINE 287 50 - 1,200 mOsm/kg 01/30/2025 10:30 AM CDT [facility] [employer] [facility] Urine URINE SPECIMEN OBTAINED BY CLEAN CATCH PROCEDURE / Unknown Collection / Unknown 01/30/2025 9:53 AM CDT 01/30/2025 10:04 AM CDT Narrative [facility] [employer] [facility] - 01/30/2025 10:30 AM CDT Reference range: 50-1200 mOsm/kg H2O, depending on fluid intake. Parris Summers MD URINE ORDERABLES Final Resul t Performing Organization Address [facility]/ZIP Co de Phone Number [facility] [employer] [facility] CLNICOLE# [id number] [address] [place] [address] * OSMOLALITY (01/29/2025 7:53 PM CDT) OSMOLALITY 300 275 - 300 mOsm/kg 01/29/2025 9:21 PM CDT [facility] [employer] [facility] Blood Venipuncture / Unknown 01/29/2025 7:53 PM CDT 01/29/2025 8:18 PM CDT Parris Summers MD CHEMISTRY ORDERABLES Final R esult Performing Organization Address City/[facility]/ZIP Co de Phone Number [facility] [employer] [facility] CLNICOLE# [id number] [address] [place] [address] * MRI FOOT WO CONTRAST RIGHT (01/29/2025 [...] the foot greatest dorsally. DICTATION LOCATION: Location [address] [place] [address] Narrative 01/30/2025 7:54 AM CDT MRI FOOT [...] foot greatest dorsally. DICTATION LOCATION: Location [facility] Parris Summers MD MR ORDERABLES Final Result * RESPIRATORY PATHOGEN PCR PANEL (01/29/2025 4:29 PM CDT) [facility] Respiratory Pathogen PCR Panel NOT DETECTED No respiratory pathogen nucleic acids detected. 01/29/2025 5:40 PM CDT [facility] COVID-19 PCR NOT DETECTED Not Detected 01/29/2025 5:40 PM CDT [facility] Upper Respiratory ENTIRE NASOPHARYNX / Unknown Collection / Unknown 01/29/2025 4:29 PM CDT 01/29/2025 4:44 PM CDT Narrative [facility] - 01/29/2025 5:40 PM CDT The Film [...] MICROBIOLOGY - GENERAL ORDER ISIAH Final Result [facility]# [id number] [address] [facility] [address] [place] [place] [address] * GI PATHOGEN PCR PANEL (01/29/2025 4:26 PM CDT) Pathologist [facility] GI Pathogen PCR panel NOT DETECTED No nucleic acids detected. 01/29/2025 6:10 PM CDT [facility] Stool STOOL SPECIMEN / Unknown Collection / Unknown 01/29/2025 4:26 PM CDT 01/29/2025 4:37 PM CDT Narrative [facility] - 01/29/2025 6:10 PM CDT The Film [...] MICROBIOLOGY - GENERAL ORDER ISIAH Final Result [facility]# [id number] [address] [place] [address] * XR CHEST PA AND LATERAL 2 [...] TSH REFLEXIVE (01/29/2025 2:08 PM CDT) Pathologist [facility] TSH 1.92 0.27 - 4.20 uIU/mL 01/29/2025 4:01 PM CDT [facility] Blood Venipuncture / Unknown 01/29/2025 2:08 PM CDT 01/29/2025 3:14 PM CDT Parris Summers MD CHEMISTRY ORDERABLES Final R esult [facility]# [id number] [address] [facility] [place] [address] * (ABNORMAL) IRON, TIBC, AND PERCENT SATURATION (01/29/2025 2:08 PM CDT) IRON 22(L) 37 - 145 ug/dL 01/29/2025 4:01 PM CDT [facility] TIBC 230(L) 250 - 450 ug/dL 01/29/2025 4:01 PM CDT [facility] IRON % SATURATION 10(L) 15 - 50 % 01/29/2025 4:01 PM CDT [facility] TRANSFERRIN 181(L) 200 - 360 mg/dL 01/29/2025 4:01 PM CDT [facility] Blood Venipuncture / Unknown 01/29/2025 2:08 PM CDT 01/29/2025 3:14 PM CDT Parris Summers MD CHEMISTRY ORDERABLES Final R esult Performing Organization Address [facility] Co de Phone Number [facility] [id number] [address] [place] [address] * (ABNORMAL) SEDIMENTATION RATE (01/29/2025 2:08 PM CDT) ESR (SEDIMENTATION RATE) 76(H) <=30 mm/Hr 01/29/2025 4:00 PM CDT [facility] [employer] [facility] Blood Venipuncture / Unknown 01/29/2025 2:08 PM CDT 01/29/2025 3:15 PM CDT Parris Summers MD HEMATOLOGY ORDERABLES Final Result Performing Organization Address [facility] Co de Phone Number [facility] [employer] [facility]# [id number] [address] [place] [address] * (ABNORMAL) HEMOGLOBIN A1C (01/29/2025 2:08 PM CDT) Pathologist [facility] HEMOGLOBIN A1C 8.4(H) <5.7 % 01/29/2025 3:35 PM CDT [facility] [employer] EST. AVG GLUCOSE, A1C 194 mg/dL 01/29/2025 3:35 PM CDT [facility] Blood Venipuncture / Unknown 01/29/2025 2:08 PM CDT 01/29/2025 3:15 PM CDT Narrative [facility] - 01/29/2025 3:35 PM CDT HGB A1C INTERPRETATION NORMAL: <5.7% PRE-DIABETES: 5.7 - 6.4% DIABETES: 6.5% OR GREATER Parris Summers MD CHEMISTRY ORDERABLES Final R esult Performing Organization Address City/[facility]/ZIP Co de Phone Number [facility] SERVICES - [facility] MONISHA# [id number] [address] [facility] [address] [place] [address] * (ABNORMAL) COMPREHENSIVE METABOLIC PANEL (01/29/2025 2:08 PM CDT) [facility] SODIUM 139 136 - 145 mmol/L 01/29/2025 4:01 PM T [facility] POTASSIUM 3.6 3.5 - 5.0 mmol/L 01/29/2025 4:01 PM T [facility] - [facility] CHLORIDE 109(H) 98 - 107 mmol/L 01/29/2025 4:01 PM T [facility] CO2 20(L) 22 - 29 mmol/L 01/29/2025 4:01 PM T [facility] - [facility] CALCIUM 9.8 8.6 - 10.2 mg/dL 01/29/2025 4:01 PM T [facility] - [facility] BUN 34(H) 6 - 20 mg/dL 01/29/2025 4:01 PM T [facility] - [facility] CREATININE 2.51(H) 0.51 - 0.95 mg/dL 01/29/2025 4:01 PM T [facility] - [facility] GLUCOSE 134(H) 74 - 99 mg/dL 01/29/2025 4:01 PM T [facility] - [facility] TOTAL PROTEIN 6.2(L) 6.7 - 8.6 g/dL 01/29/2025 4:01 PM T [facility] - [facility] ALBUMIN 3.1(L) 3.5 - 5.2 g/dL 01/29/2025 4:01 PM T [facility] - [facility] BILIRUBIN TOTAL 0.2(L) 0.3 - 1.2 mg/dL 01/29/2025 4:01 PM T [facility] ALKALINE PHOSPHATASE 90 35 - 104 U/L 01/29/2025 4:01 PM T [facility] AST 8 <33 U/L 01/29/2025 4:01 PM T [facility] ALT 9 <34 U/L 01/29/2025 4:01 PM [facility] GFR 23(L) >=60 mL/min/1.7 3 sq meter 01/29/2025 4:01 PM [facility] Comment:eGFR calculated with 2020 CKD-EPI equation. Vegetarian diet, extremely high or low muscle mass, and may affect results. Cystatin C with Glomerular Filtration Rate is a suitable alternative for these patients. ANION GAP 10 8 - 16 mmol/L 01/29/2025 4:01 PM [facility] Blood Venipuncture / Unknown 01/29/2025 2:08 PM CDT 01/29/2025 3:14 PM CDT Narrative [facility] - 01/29/2025 4:01 PM CDT Samples containing indocyanine green cause interferences on Total and/or Direct Bilirubin and must not be measured. Parris Summers MD CHEMISTRY ORDERABLES Final R esult [facility] CLIA# [id number] [address] [place] [address] from Last 3 Months Insurance [facility] PREFERRED RX [employer] [place] [address] Advance Directives For more information, please contact: [phone] * Full Code (Latest Code Status on File) Date Activated Date Inactivated Comments 01/29/2025 1:42 PM 02/02/2025 12:23 PM Care Teams Information Security Specialist Relationship Specialty Start Date End Date Jamaal Ibarra DO [address] [address] PCP - General Internal Medicine 07/11/18
--- OUTSIDE RECORDS SUMMARY | 2025-02-09 17:21 | XMS_ITS | Clinical Summary ---
Author Organization [facility] Address [address] [place] [address] Care Team Providers Care Enterprise Architect Manager Name Role Phone Jamaal Ibarra DO Primary Care Provider [phone] Social History Tobacco Use Types Packs/Day Years Used Date Smoking Tobacco: Never Assessed Comments Unknown Sex and Gender Information Value Date Recorded Sex Assigned at Not on file Legal Sex Female 10:23 PM [employer] Gender Identity Not on file Sexual Orientation [...] age to complete this topic [place] [address] [facility] Care Teams Enterprise Architect Manager Relationship Specialty Start Date End Date Jamaal Ibarra DO [address] [place] [address] PCP - General INTERNAL MEDICINE 07/02/23
--- OUTSIDE RECORDS SUMMARY | 2025-02-09 17:21 | XMS_ITS | Clinical Summary ---
Author Organization [facility] Address [address] [facility] [place] [address] Care Team Providers Care Seed Cleaning Manager Name Role Phone Lebron Pugh V. DO Unavailable Jamaal Ibarra DO Primary Care Provider [phone] Source Comments [facility],non-owned Affiliates and Associated Physician Practices is amultiple site organization consisting of ambulatory clinics and hospital sitesin [place], [place] and [place]. This disclosure is being madepursuant to the Care Everywhere program and may not contain all information available regarding this patient. Last updated 18.[facility] Allergies Active Allergy Reactions Criticality Noted Date [...] tablet 2 Active vitamin D, ergocalciferol, (DRISDOL) 84974 UNITS capsule 1 Active gabapentin (NEURONTIN) 300 MG capsule 2 Active simvastatin (ZOCOR) 20 MG tablet 1 Active traMADol (ULTRAM) 50 MG tablet 1 014 Active traZODone (DESYREL) 50 MG tablet 6 Active zolpidem (AMBIEN) 10 MG tablet 5 Active megestrol (MEGACE) 40 MG tablet Take 1 Tab by mouth once daily. 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 Not on file Not on file Not on file Last Filed Vital Signs Vital Sign Reading Time Taken Comments Blood Pressure 126/74 10/21/2014 11:57 AM CANVASS MANAGER Pulse 102 09/16/2013 1:06 PM CANVASS MANAGER Temperature 36.8 C (98.2 F) 09/16/2013 1:06 PM CANVASS MANAGER Respiratory Rate 20 09/16/2013 1:06 PM CANVASS MANAGER Oxygen Saturation 98% 09/16/2013 1:06 PM CANVASS MANAGER Inhaled Oxygen Concentration - - Weight 89.8 kg (198 lb) 10/21/2014 11:57 AM CANVASS MANAGER Height 172.7 cm (5' 8 ) 10/21/2014 11:57 AM CANVASS MANAGER Body Mass Index 30.11 10/21/2014 11:57 AM CANVASS MANAGER Plan of Treatment Health Maintenance Due Date [...] HPV MRNA E6/E7 Routine 10/21/2014 1:52 PM CANVASS MANAGER Routine gynecological examination MAMMO BILAT SCREENING Routine 09/22/2013 8:09 AM CANVASS MANAGER Screening COMPREHENSIVE METABOLIC PANEL Routine 08/22/2013 8:00 AM CANVASS MANAGER DM w/o Complication Type II, Uncontrolled HTN (hypertension), benign Abdominal pain, RUQ (right upper quadrant) Ketonuria HEMOGLOBIN A1C Routine 08/22/2013 8:00 AM CANVASS MANAGER DM w/o Complication Type II, Uncontrolled MICROALB/CREAT RATIO URINE RANDOM PANEL Routine 08/21/2013 9:29 AM CANVASS MANAGER DM w/o Complication Type II, Uncontrolled from Last 3 Months or Most Recently Relevant to Health Maintenance Results * PAP THIN PREP REFLX HPV (PO REF LAB) (10/21/2014 1:52 PM CANVASS MANAGER) Clinical Information [facility] Comment:Routine exam LMP [facility] [...] has been evaluated with computer assisted technology. Bag Shaker [facility] Comment: BKA, CT(ASCP) Test Performed at: [facility] [address] LAURENCE JO MD ENTIRE ENDOCERVIX / Unknown 10/21/2014 1:52 PM CANVASS MANAGER 10/22/2014 10:09 AM CANVASS MANAGER Bienvenido Mcnair Jr., MD LAB - PATHOLOGY/CYTOL OGY ORDERABLES Final Result [address] [address] * MAMM SCREENING DIGITAL IMAGE BILAT G0202 (09/22/2013 8:09 AM CANVASS MANAGER) Anatomical Region Laterality Modality Breast Bilateral Mammography 09/22/2013 11:5 3 AM CANVASS MANAGER Impressions 09/22/2013 11:56 AM CANVASS MANAGER No malignant abnormality identified. No significant change. BI-RADS category 1. Negative. RECOMMENDATIONS: Routine mammograms in one year. Narrative 09/22/2013 11:56 AM CANVASS MANAGER Screening mammogram: HISTORY: Screening mammogram. Two views [...] * (ABNORMAL) HEMOGLOBIN A1C (08/22/2013 8:00 AM CANVASS MANAGER) Hemoglobin A1c 12.6(H) <5.7 % of total [...] of diabetes for children. Test Performed at: [facility] [address] [place] [address] PAPO BENNETT DO,MPH Whole blood specimen (specimen) BLOOD SPECIMEN / Unknown 08/22/2013 4:53 AM CANVASS MANAGER us Salma Hunt DAMPER FITTER-POTATO LOADER LAB - CHEMISTRY ORDERA BLES Final Result [facility] [address] [place] [address] * (ABNORMAL) COMPREHENSIVE METABOLIC PANEL (08/22/2013 8:00 AM CANVASS MANAGER) Glucose 312(H) 65 - 99 mg/dL [facility] [...] 29 U/L [facility] Comment: Test Performed at: [facility] [address] [place] [address] PAPO BENNETT DO,MPH Blood specimen (specimen) BLOOD SPECIMEN / Unknown 08/22/2013 4:53 AM CANVASS MANAGER Salma Llanos Marilee DAMPER FITTER-POTATO LOADER LAB - CHEMISTRY ORDERA BLES Final Result Performing Organization Address [facility] de Phone Number [facility] [address] [place] [address] * (ABNORMAL) MICROALB/CREAT RATIO URINE RANDOM PANEL (08/21/2013 9:29 AM CANVASS MANAGER) Creatinine Urine 129 20 - 320 mg/dL [...] within a diagnostic category. Test Performed at: [facility] [address] [place] [address] PAPO BENNETT DO,MPH Urine specimen (specimen) URINE SPECIMEN OBTAINED BY CLEAN CATCH PROCEDURE / Unknown 08/21/2013 9:29 AM CANVASS MANAGER 08/22/2013 4:16 AM CANVASS MANAGER Salma Llanos Marilee DAMPER FITTER-POTATO LOADER LAB - URINE CHEMISTRY ORDERABLES Final Result Performing Organization Address [facility] de Phone Number [facility] [address] [place] [address] from Last 3 Months or Most Recently Relevant to Health Maintenance Insurance ANTHEM ANTHEM Advance Directives * FULL RESUSCITATION (Latest Code Status on File) Date Activated Date Inactivated Comments 05/06/2011 1:35 AM 05/08/2011 5:46 AM Care Teams Seed Cleaning Manager Relationship Specialty Start Date End Date Jamaal Ibarra DO [address] [place] [address] PCP - General 06/01/21 Lebron Pugh DO [address] [place] [id number] Oncology 06/23/07
--- OUTSIDE RECORDS SUMMARY | 2025-02-09 17:21 | XMS_ITS | Clinical Summary ---
Author Organization [facility] Address [address] [place] [address] Phone Care Team Providers Care Pipe Supervisor Name Role Phone JeanniesvetaJamaal jernigan Primary Care Provider [phone] Allergies Active Allergy Reactions Criticality Noted Date [...] 2 Active ergocalciferol (VITAMIN D2) 1.25 MG (33095 UT) capsule TAKE 1 CAPSULE BY MOUTH [...] Comments Blood Pressure 128/72 09/05/2022 8:31 AM GLUE MILL OPERATOR Pulse - - Temperature 36.5 C (97.7 F) 09/05/2022 8:31 AM GLUE MILL OPERATOR Respiratory Rate 18 09/05/2022 8:31 AM GLUE MILL OPERATOR Oxygen Saturation - - Inhaled Oxygen Concentration - - Weight 121 kg (267 lb) 09/05/2022 8:31 AM GLUE MILL OPERATOR Height 172.7 cm (5' 8 ) 09/05/2022 8:31 AM GLUE MILL OPERATOR Body Mass Index 40.6 09/05/2022 8:31 AM GLUE MILL OPERATOR Plan of Treatment Health Maintenance Due Date Last Done Comments Diabetic Foot Exam 1984 Ophthalmology Exam 1984 Pneumococcal PPSV23 Highest Risk Adult (1 of 3 - PCV13) 1993 Influenza Vaccine (Season Ended) 2025 07/07/2020, 07/30/2019, 07/16/2018, Additional history exists Insurance [facility] Care Teams Pipe Supervisor Relationship Specialty Start Date End Date Jamaal Ibarra DO [address] [place] [address] PCP - General Internal Medicine 05/07/22
[2025-02-09 17:24] LABS: Creatine Kinase 23 U/L (30-135); Magnesium 1.8 mg/dL (1.6-2.3); Phosphorus 3.2 mg/dL (2.5-4.5)
--- NOTE | 2025-02-09 17:40 | ED_ITS ---
HPI - Weakness General Chief complaint: Weakness Stated complaint: Dizziness, Diarrhea, Shortness of breath Time Seen by Provider: 02/09/25 16:29 Source: patient Mode of arrival: ambulatory Limitations: no limitations History of Present Illness HPI Narrative: This is a 49-year-old female, with history of CKD stage 4, diabetes, hypertension, previously admitted to this hospital 3 weeks ago with subsequent transfer to [facility] with similar complaints, who presents emergency department complaining of generalized weakness, persistent nonbloody diarrhea and lack of appetite. She states she had some dry cough beginning yesterday. She denies associated chest pain, though complains of some dyspnea on exertion. She denies lower extremity swelling, focal weakness or numbness, known sick contacts or recent travel. Related Data Home Medications ?Medication ?Instructions ?Recorded ?Confirmed ?Last Taken ?Type docusate sodium 100 mg capsule 100 mg PO DAILY 11/02/19 01/20/25 01/16/25 History (Colace) sertraline 100 mg tablet (Zoloft) 100 mg PO DAILY 11/02/19 01/20/25 01/19/25 History zolpidem 10 mg tablet 10 mg PO QPM PRN Insomnia 11/02/19 01/20/25 01/16/25 History prazosin 2 mg capsule (Minipress) 2 mg PO HS 07/03/20 01/20/25 01/19/25 History coenzyme Q10 100 mg capsule (Co 100 mg PO DAILY 10/03/21 01/20/25 01/19/25 History Q-10) trazodone 50 mg tablet 50 mg PO HS 05/21/22 01/20/25 01/19/25 History Humalog KwikPen Insulin See Protocol subcut TIDWMEAL 03/22/23 01/20/25 01/19/25 History atorvastatin 10 mg tablet 20 mg PO QHS 04/02/23 01/20/25 01/19/25 History sumatriptan succinate 6 mg/0.5 mL 6 mg subcut ONCE PRN Migraine 08/01/23 01/20/25 01/19/25 History subcutaneous pen injector Headache alprazolam 0.5 mg tablet 0.5 mg PO TID 09/10/23 01/20/25 01/19/25 History blood-glucose sensor (FreeStyle #1 ea 05/13/24 01/20/25 Unknown History Sharita 3 Sensor device) glucagon 3 mg/actuation nasal 3 mg intranasal PRN PRN 05/13/24 01/20/25 01/19/25 History spray (Baqsimi) Hypoglycemia insulin glargine 100 unit/mL (3 38 unit subcut BID 05/13/24 01/20/25 01/19/25 History mL) subcutaneous pen (Lantus Solostar U-100 Insulin) pen needle, diabetic 32 gauge x #1,200 ea 05/13/24 01/20/25 Unknown History (BD Mer 2nd Gen Pen Needle) pioglitazone 15 mg tablet 15 mg PO DAILY 05/13/24 01/20/25 01/19/25 History cholecalciferol (vitamin D3) 1,250 1,250 mcg PO WEEKLY 06/02/24 01/20/25 01/17/25 History mcg (50,000 unit) tablet prochlorperazine maleate 10 mg 20 mg PO Q4-6H PRN Nausea 06/02/24 01/20/25 01/19/25 History tablet cholecalciferol (vitamin D3) 125 125 mcg PO DAILY 08/20/24 01/20/25 01/19/25 History mcg (5,000 unit) tablet zinc citrate 11 mg chewable tablet 11 mg PO DAILY 08/20/24 01/20/25 01/19/25 History Allergies Allergy/AdvReac Type Severity Reaction Status Date / Time hydralazine Allergy Severe Itching Verified 02/09/25 16:15 latex Allergy Severe itching Verified 02/09/25 16:15 metoclopramide Allergy Severe Redness of Verified 02/09/25 16:15 Skin 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 Gastroparesis Irritable bowel syndrome with constipation Cyclic vomiting syndrome Insulin dependent diabetes mellitus Hyperlipidemia Hypertension Gastroesophageal reflux disease Vitamin B 12 deficiency Anxiety Depression Hypothyroidism Fibromyalgia Rheumatoid arthritis Endometriosis Herpes Uterine fibroid Peptic ulcer Bronchitis Surgical History Surgical History History of cholecystectomy History of detached retina repair History of partial knee replacement History of hysterectomy History of laparoscopy Removal of uterine fibroids Family History Family History Mother Diabetes mellitus Hypertension Family history of elevated blood lipids Sibling Family history of obesity Patient's sister is in good health Father Hypertension Family history of cardiovascular disease Other Acute myocardial infarction Family history of arthritis Family history of heart disease in male family member before age 55 Family history of thyroid disease Social History Social History Social History: Lives alone in [place]. with no children. No alcohol, tobacco, illicit substance abuse. Surrogate decision maker: Susan Mariano, sister. Code status: Full code. Caffeine-daily Smoking status: Never smoker Alcohol intake: never Drinks per week: 1 Alcohol use details: rarely Substance use: never Substance use type: does not use Do You Feel Safe in your Home?: Yes Lack of Transportation: No Lack of Food: Never True Current Housing: I Have Housing Concerned About Future Housing: No Difficulty Paying Gas/Electric Bills: No Difficulty Paying for Meds: No Currently Unemployed: No Education: Associate Degree Difficulty w/ Childcare or Family Care: No Living arrangements: with family Spiritual care concerns: No Exam 2 Narrative: GENERAL: Well-developed, well-nourished, and in no acute distress. HEAD: Normocephalic, atraumatic. EYES: Left pupil round reactive to light and accommodation, right eye blindness. EOMI CHEST: Clear to auscultation. No respiratory distress. No wheezes rales or rhonchi HEART: Regular rate and rhythm. No murmur heard. Normal peripheral pulses. ABDOMEN: Soft, tender palpation in the left lower quadrant without rebound or guarding, nondistended, normal active bowel sounds. EXTREMITIES: Normal range of motion. No edema. SKIN: Warm, dry, no rash. NEURO: Alert and oriented x3. No focal deficit. Moving all 4 limbs spontaneously PSYCH: Normal mood and affect. Course Course Emergency Course: 21:40 - CBC demonstrates slightly elevated white blood cell count of 10.8 but is otherwise unremarkable. Chemistries demonstrate baseline creatinine elevation of 2.75 and hyperglycemia with glucose of 259. BNP slightly elevated at 938 though is improved compared to 3900 in January 2025. Troponin negative. Urinalysis shows 4+ protein ketones and red blood cells with yeast to though there are squamous cells. Noncontrast CT abdomen pelvis not concerning for acute intra-abdominal process. I discussed these findings with the patient who states she does not feel safe at home. I discussed the patient with hospitalist, KELLY Miller who accepts admission. Vital Signs Vital signs: Vital Signs Temperature 97.8 F 02/09/25 16:18 Pulse Rate 82 02/09/25 16:18 Respiratory Rate 18 02/09/25 16:18 Blood Pressure 123/76 02/09/25 16:18 Pulse Oximetry 99 02/09/25 16:18 Oxygen Delivery Room Air 02/09/25 16:18 Temperature 98.1 F 02/09/25 18:01 Pulse Rate 69 02/09/25 19:31 Respiratory Rate 17 02/09/25 19:31 Blood Pressure 143/80 H 02/09/25 19:31 Pulse Oximetry 98 02/09/25 19:31 Oxygen Delivery Room Air 02/09/25 16:18 MDM - Weakness MDM Narrative Medical decision making narrative: Plan: Labs, IV fluids, imaging, pain control, reassess Differential Diagnosis Differential diagnosis: Likely hypoglycemia, dehydration and other (Metabolic abnormality, arrhythmia, anemia, diverticulitis, enteritis, malignancy, other) Lab Data 02/09/25 16:34 02/09/25 16:58 Labs: Lab Results 02/09/25 02/09/25 02/09/25 Range/Units 16:34 16:58 18:19 WBC 10.8 H (4.5-10.0) K/mm3 RBC 4.33 (4.2-5.4) M/mm3 Hgb 12.3 D (12.0-15.0) g/dL Hct 38.5 (37.0-47.0) % MCV 88.9 (80-100) fl MCH 28.4 (26-34) pg MCHC 31.9 L (32-36) g/dl RDW 12.9 (11.5-14.5) % Plt Count 270 (150-375) k/mm3 MPV 10.6 H (7.4-10.4) fl Immature Gran % (Auto) 0.5 (0-0.5) % Neut % (Auto) 74.9 H (45.5-73.1) % Lymph % (Auto) 17.3 L (18.3-44.2) % [place] % (Auto) 4.9 (2.6-8.5) % Eos % (Auto) 1.8 (0-4.4) % Baso % (Auto) 0.6 (0.2-1.2) % Lymph # (Auto) 1.87 (0.9-3.2) K/mm3 [place] # (Auto) 0.5 (0.1-0.6) K/mm3 Eos # (Auto) 0.2 (0-0.3) K/mm3 Baso # (Auto) 0.1 (0.0-0.1) K/mm3 Abs Immat Gran (auto) 0.05 H (0.00-0.031) K/mm3 Absolute Neuts (auto) 8.1 H (1.3-6.7) K/mm3 Absolute Nucleated RBC 0.000 (0.0-0.012) K/mm3 Nucleated RBC % 0.0 (0.0-0.2) % Sodium 137 (137-145) mmol/L Potassium 3.4 (3.4-5.0) mmol/L Chloride 102 (98-107) mmol/L Carbon Dioxide 25 (22-30) mmol/L Anion Gap 10 (4-12) mmol/L BUN 36 H (7-17) mg/dL Creatinine 2.75 H (0.7-1.0) mg/dL Estim Creat Clear Calc 30 ml/min Estimated GFR 18 L (59 - ) Glucose 259 H (65-110) mg/dL POC Capillary Glucose 226 H (65-105) mg/dl Calcium 10.1 (8.4-10.2) mg/dL Phosphorus 3.2 (2.5-4.5) mg/dL Magnesium 1.8 (1.6-2.3) mg/dL Total Bilirubin 0.6 (0.2-1.3) mg/dL AST 20 (14-36) U/L ALT 21 (6-35) U/L Alkaline Phosphatase 111 (38-126) U/L Total Creatine Kinase 23 L (30-135) U/L Troponin I 0.021 (0.000-0.034) ng/mL NT-Pro-B Natriuret Pep 938 H (19.9-100) pg/mL Total Protein 7.0 (6.3-8.2) g/dL Albumin 3.9 (3.5-5.1) g/dL Urine Color Yellow (Yellow) Urine Appearance Cloudy H (Clear) Urine pH 5.5 (5.0-9.0) Ur Specific Accident 1.021 (1.001-1.035) Urine Protein 4+ H (Negative) mg/dL Urine Glucose (UA) 1+ H (Negative) mg/dL Urine Ketones Trace H (Negative) mg/dL Ur Blood (Man) Negative (Negative) Urine Nitrate Negative (Negative) Urine Bilirubin Negative (Negative) Urine Urobilinogen 0.2 (<2.0) mg/dL Add Ur Microanalysis Reviewed Leukocyte Esterase Rfl Negative (Negative) LETY/UL Urine RBC 6-10 H (0-2) /hpf Urine WBC 0-5 (0-3) /hpf Ur Squamous Epith Cells Moderate (Few) /hpf Urine Bacteria 1+ H /hpf Urine Casts >20 Urine Yeast (Budding) Present H (None) /hpf ECG Data EKG #1: Attestation: I personally reviewed and interpreted this ECG as follows: ECG completion date: 02/09/25 ECG completion time: 16:34 Prior ECG tracings: available for review Interpretation: Sinus rhythm, rate 74, left axis deviation, left anterior fascicular block, right bundle-branch block, no ST segment elevations concerning for ischemia, T- wave inversions in lead 1 and aVL. Compared to EKG done in January 2025, fascicular blocks in T-wave inversions are new. Discharge Plan Discharge Clinical Impression: Diarrhea Qualifiers: Diarrhea type: unspecified type Qualified Code(s): R19.7 - Diarrhea, unspecified Pneumonia Qualifiers: Pneumonia type: due to unspecified organism Laterality: left Lung location: u nspecified part of lung Qualified Code(s): J18.9 - Pneumonia, unspecified organism Patient Disposition: Still a Patient Condition: Stable Patient Language: Latvian Prescriptions: No Action insulin glargine [Lantus Solostar U-100 Insulin] 100 unit/mL (3 mL) insulin pen 38 unit subcut BID (DME) pen needle, diabetic [BD Mer 2nd Gen Pen Needle] 32 gauge x 5/32 needle See Rx Instructions .ROUTE .MEDSUPPLY Qty: 1200 Rx Instructions: As directed pioglitazone 15 mg tablet 15 mg PO DAILY Baqsimi 3 mg/actuation spray,non-aerosol 3 mg intranasal PRN PRN (Reason: Hypoglycemia) (DME) FreeStyle Sharita 3 Sensor Device See Rx Instructions .ROUTE .MEDSUPPLY Qty: 1 Rx Instructions: As directed docusate sodium [Colace] 100 mg capsule 100 mg PO DAILY sertraline [Zoloft] 100 mg tablet 100 mg PO DAILY zolpidem 10 mg tablet 10 mg PO QPM PRN (Reason: Insomnia) atorvastatin 10 mg tablet 20 mg PO QHS alprazolam 0.5 mg tablet 0.5 mg PO TID spironolactone 25 mg tablet 25 mg PO DAILY Qty: 30 11RF bumetanide 1 mg tablet 1 mg PO BID Qty: 60 6RF zinc citrate 11 mg tablet,chewable 11 mg PO DAILY cholecalciferol (vitamin D3) 125 mcg (5,000 unit) tablet 125 mcg PO DAILY acyclovir 400 mg tablet 400 mg PO BID Qty: 180 3RF Humalog KwikPen Insulin See Protocol subcut TIDWMEAL Protocol: Insulin Corrective High-Dose Condition: glucose < 70 mg/dl Dose/Route: Follow hypoglycemia order Condition: glucose 70-200 mg/dl Dose/Route: No additional insulin Condition: glucose 201-250 mg/dl Dose/Route: 4 units sub-Q Condition: glucose 251-300 mg/dl Dose/Route: 5 units sub-Q Condition: glucose 301-350 mg/dl Dose/Route: 6 units sub-Q Condition: glucose 351-400 mg/dl Dose/Route: 8 units sub-Q Condition: glucose > 400 mg/dl Dose/Route: Call Protocol Text: *No Correction Dose at Bedtime* Rx Instructions: Uses sliding scale for blood glucose greater than 150 ondansetron 4 mg tablet,disintegrating 4 mg PO Q8H PRN (Reason: nausea and vomiting) Qty: 10 0RF prochlorperazine maleate 10 mg tablet 20 mg PO Q4-6H PRN (Reason: Nausea) cholecalciferol (vitamin D3) 1,250 mcg (50,000 unit) tablet 1,250 mcg PO WEEKLY prazosin [Minipress] 2 mg Capsule 2 mg PO HS trazodone 50 mg Tablet 50 mg PO HS sumatriptan succinate 6 mg/0.5 mL pen injector 6 mg subcut ONCE PRN (Reason: Migraine Headache) Rx Instructions: may repeat dose once in 1 hour if not relieved coenzyme Q10 [Co Q-10] 100 mg capsule 100 mg PO DAILY losartan 100 mg tablet 100 mg PO DAILY Qty: 90 1RF amitriptyline 25 mg tablet 50 mg PO HS Qty: 180 1RF metoprolol succinate 50 mg tablet extended release 24 hr See Rx Instructions .ROUTE .COMPLEX Qty: 90 1RF Dose Instruction: TAKE 1 TABLET BY MOUTH DAILY Rx Instructions: TAKE 1 TABLET BY MOUTH DAILY pantoprazole 40 mg tablet,delayed release (DR/EC) 40 mg PO DAILY PRN (Reason: Nausea) Qty: 90 1RF amlodipine 5 mg tablet See Rx Instructions .ROUTE .COMPLEX Qty: 90 1RF Dose Instruction: TAKE 1 TABLET BY MOUTH DAILY Rx Instructions: TAKE 1 TABLET BY MOUTH DAILY lubiprostone 24 mcg capsule See Rx Instructions .ROUTE .COMPLEX Qty: 60 6RF Dose Instruction: TAKE 1 CAPSULE BY MOUTH TWICE DAILY Rx Instructions: TAKE 1 CAPSULE BY MOUTH TWICE DAILY topiramate [Topamax] 25 mg capsule, sprinkle 50 mg PO BID Qty: 360 1RF Rx Instructions: titrate up to 50mg bid as directed Follow-up/Referrals: Jamaal Ibarra DO [Primary Care Provider] - Time of Disposition: 21:40
[2025-02-09 17:45] LABS: NT Pro B Type Natriuretic Pept 938 pg/mL (19.9-100); Troponin I 0.021 ng/mL (0.000-0.034)
[2025-02-09 19:13] LABS: Add Urine Microscopic? YES; Appearance Urine Cloudy (Clear); Bacteria Urine 1+ /hpf; Bilirubin Urine Negative (Negative); Blood Urine Negative (Negative); Budding Yeast Urine Present /hpf; Color Urine Yellow (Yellow); Glucose Urine UA 1+ mg/dL (Negative); Ketones Urine Trace mg/dL (Negative); Leukocyte Esterase Ur Negative LEU/UL (Negative); Need Manual Microscopic Reviewed; Nitrate Urine Negative (Negative); Non Pathogenic Casts >20; Protein Urine 4+ mg/dL (Negative); Specific Grav Ur 1.021 (1.001-1.035); Squamous Epithelial Cell Urine Moderate /hpf (Few); Urobilinogen Urine 0.2 mg/dL (<2.0); WBC Urine 0-5 /hpf (0-3); pH Urine 5.5 (5.0-9.0)
--- NOTE | 2025-02-09 21:40 | P.HP_ITS ---
H&P: HPI History of Present Illness Date/Time: 02/09/25 21:40 Chief Complaint: Weakness Narrative: This is a very pleasant 49-year-old female patient with extensive history of CKD stage 4, blindness of the right eye, type 2 diabetes mellitus with long-term use of insulin, hypertension, nonalcoholic fatty liver disease, migraines, detached retina, subsequent vomiting syndrome, gastroparesis, hyperlipidemia, GERD, B12 deficiency, anxiety, depression, fibromyalgia, peptic ulcer disease who is status post hysterectomy status post cholecystectomy who comes to the emergency room with complaints of continued weakness. Patient was recently hospitalized here January 20 through January 30 and was ultimately transferred to [facility] for further evaluation and management with complications of kidney failure, chronic diarrhea with fever of unknown origin, and pericardial effusion. Patient was discharged from there and states since being home she has had continued diarrhea which is out of the ordinary for her as she normally has constipation and has not required her IBS medications, denies any mellitus appearing stools, hematochezia and states she has had 2 episodes of emesis without any hematemesis. As she last had a colonoscopy a by Dr. Stanford in 2020 that was normal. In addition to the continued diarrhea patient has noticed for the past 24 hours she has had a persistent dry cough with sweats at night and chills, but no measured fevers. Patient states this morning she woke up and she was having muscle cramping in her legs and she was concerned that she may be dehydrated or have low potassium prompting her to come to the emergency room. She is followed by Dr. Grimaldo from Nephrology, and does not see cardiology. Patient denies any other acute new symptoms. She is a nonsmoker, does not use alcohol or drugs. In the emergency room workup was performed with labs, imaging and EKG. Labs with unremarkable CBC, metabolic panel with potassium of 3.4 in which she received a single dose of 40 mEq by mouth, creatinine of 2.75 which is within patient's baseline creatinine 2.5-2.9, anion gap is 10, magnesium is 1.8, BNP is 938, troponin 0.021. Urinalysis showing 4+ protein with 1+ glucose, trace ketones 1+ bacteria otherwise. Not infectious. Vital signs are stable patient is afebrile. EKG showing sinus rhythm 74 beats per minute with a left anterior fascicular block and a right bundle-branch block. This is in contrast to EKG dated January 28, 2025 that showed sinus rhythm with PVCs and a left bundle-branch block. That left bundle is now no longer present. Patient's last echo cardiogram was in January 05, 2025 showing a normal left ventricular systolic function 65-70% and grade 1 diastolic dysfunction. Chest x-ray shows a lingular consolidation versus atelectasis and a likely persistent small pericardial effusion. CT abdomen pelvis showing unchanged hepatic splenomegaly and no acute findings to explain patient's symptoms on abdomen pelvis. Patient reports compliance with her diuretics of Bumex and spironolactone endorses a 20+ lb weight loss over the course of the past month citing the amount of edema in her legs has drastically improved. Patient is being admitted to the hospital at this time with complaints of generalized weakness as well as concerns for abnormal chest x-ray, persistent diarrhea and EKG changes for further workup. Review of Systems Review of Systems: All systems reviewed & are unremarkable except as noted in HPI and below PMFSH Past Medical History Medical History (Updated 02/09/25 @ 22:43 by GEOVANY Zuniga) Diabetes mellitus Acute electrocardiogram changes Abnormal chest x-ray Nonalcoholic steatohepatitis Nephrotic syndrome Chronic lumbar pain Morbid obesity due to excess calories Migraine headache without aura 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 Gastroparesis Irritable bowel syndrome with constipation Cyclic vomiting syndrome Insulin dependent diabetes mellitus Hyperlipidemia Hypertension Gastroesophageal reflux disease Vitamin B 12 deficiency Anxiety Depression Hypothyroidism Fibromyalgia Rheumatoid arthritis Endometriosis Herpes Uterine fibroid Peptic ulcer Bronchitis Surgical History Surgical History History of cholecystectomy History of detached retina repair History of partial knee replacement History of hysterectomy History of laparoscopy Removal of uterine fibroids Family History Family History Mother Diabetes mellitus Hypertension Family history of elevated blood lipids Sibling Family history of obesity Patient's sister is in good health Father Hypertension Family history of cardiovascular disease Other Acute myocardial infarction Family history of arthritis Family history of heart disease in male family member before age 55 Family history of thyroid disease Social History Social History Social History: Lives alone in [place]. with no children. No alcohol, tobacco, illicit substance abuse. Surrogate decision maker: Susan Mariano, sister. Code status: Full code. Caffeine-daily Smoking status: Never smoker Alcohol intake: never Drinks per week: 1 Alcohol use details: rarely Substance use: never Substance use type: does not use Do You Feel Safe in your Home?: Yes Lack of Transportation: No Lack of Food: Never True Current Housing: I Have Housing Concerned About Future Housing: No Difficulty Paying Gas/Electric Bills: No Difficulty Paying for Meds: No Currently Unemployed: No Education: Associate Degree Difficulty w/ Childcare or Family Care: No Living arrangements: with family Spiritual care concerns: No Meds Home Medications and Allergies Home Medications ?Medication ?Instructions ?Recorded ?Confirmed ?Type docusate sodium 100 mg capsule 100 mg PO DAILY 11/02/19 01/20/25 History (Colace) sertraline 100 mg tablet (Zoloft) 100 mg PO DAILY 11/02/19 01/20/25 History zolpidem 10 mg tablet 10 mg PO QPM PRN Insomnia 11/02/19 01/20/25 History prazosin 2 mg capsule (Minipress) 2 mg PO HS 07/03/20 01/20/25 History coenzyme Q10 100 mg capsule (Co 100 mg PO DAILY 10/03/21 01/20/25 History Q-10) trazodone 50 mg tablet 50 mg PO HS 05/21/22 01/20/25 History Humalog KwikPen Insulin See Protocol subcut TIDWMEAL 03/22/23 01/20/25 History atorvastatin 10 mg tablet 20 mg PO QHS 04/02/23 01/20/25 History ondansetron 4 mg disintegrating 4 mg PO Q8H PRN nausea and 06/03/23 01/20/25 Rx tablet vomiting #10 tabs sumatriptan succinate 6 mg/0.5 mL 6 mg subcut ONCE PRN Migraine 08/01/23 01/20/25 History subcutaneous pen injector Headache alprazolam 0.5 mg tablet 0.5 mg PO TID 09/10/23 01/20/25 History blood-glucose sensor (FreeStyle #1 ea 05/13/24 01/20/25 History Sharita 3 Sensor device) glucagon 3 mg/actuation nasal 3 mg intranasal PRN PRN 05/13/24 01/20/25 History spray (Baqsimi) Hypoglycemia insulin glargine 100 unit/mL (3 38 unit subcut BID 05/13/24 01/20/25 History mL) subcutaneous pen (Lantus Solostar U-100 Insulin) pen needle, diabetic 32 gauge x #1,200 ea 05/13/24 01/20/25 History /32 (BD Mer 2nd Gen Pen Needle) pioglitazone 15 mg tablet 15 mg PO DAILY 05/13/24 01/20/25 History cholecalciferol (vitamin D3) 1,250 1,250 mcg PO WEEKLY 06/02/24 01/20/25 History mcg (50,000 unit) tablet prochlorperazine maleate 10 mg 20 mg PO Q4-6H PRN Nausea 06/02/24 01/20/25 History tablet bumetanide 1 mg tablet 1 mg PO BID #60 tabs 06/25/24 01/20/25 Rx spironolactone 25 mg tablet 25 mg PO DAILY #30 tabs 06/25/24 01/20/25 Rx acyclovir 400 mg tablet 400 mg PO BID #180 tabs 08/20/24 01/20/25 Rx cholecalciferol (vitamin D3) 125 125 mcg PO DAILY 08/20/24 01/20/25 History mcg (5,000 unit) tablet zinc citrate 11 mg chewable tablet 11 mg PO DAILY 08/20/24 01/20/25 History losartan 100 mg tablet 100 mg PO DAILY #90 tabs 09/25/24 01/20/25 Rx amitriptyline 25 mg tablet 50 mg (2 x 25 mg) PO HS #180 tabs 11/18/24 01/20/25 Rx metoprolol succinate 50 mg See Rx Instructions .Route 11/24/24 01/20/25 Rx tablet,extended release 24 hr .COMPLEX #90 tabs pantoprazole 40 mg tablet,delayed 40 mg PO DAILY PRN Nausea #90 tabs 11/24/24 01/20/25 Rx release amlodipine 5 mg tablet See Rx Instructions .Route 01/04/25 01/20/25 Rx .COMPLEX #90 tabs lubiprostone 24 mcg capsule See Rx Instructions .Route 01/04/25 01/20/25 Rx .COMPLEX #60 caps topiramate 25 mg sprinkle capsule 50 mg (2 x 25 mg) PO BID #360 caps 01/12/25 01/20/25 Rx (Topamax) Allergies Allergy/AdvReac Type Severity Reaction Status Date / Time hydralazine Allergy Severe Itching Verified 02/09/25 16:15 latex Allergy Severe itching Verified 02/09/25 16:15 metoclopramide Allergy Severe Redness of Verified 02/09/25 16:15 Skin Vital Signs Vital Signs - 24 hr 02/09/25 16:18 02/09/25 16:31 02/09/25 16:33 Temperature 97.8 F Pulse Rate 82 87 74 Respiratory Rate 18 14 17 Blood Pressure 123/76 148/82 H Pulse Oximetry 99 98 98 Oxygen Delivery Room Air 02/09/25 16:53 02/09/25 17:01 02/09/25 17:02 Temperature Pulse Rate 73 74 Respiratory Rate 21 H 13 Blood Pressure 151/82 H Pulse Oximetry 96 98 99 Oxygen Delivery 02/09/25 17:15 02/09/25 17:16 02/09/25 17:31 Temperature Pulse Rate 76 74 78 Respiratory Rate 13 23 H 19 Blood Pressure 143/87 H 135/81 Pulse Oximetry 95 100 99 Oxygen Delivery 02/09/25 18:01 02/09/25 19:31 Temperature 98.1 F Pulse Rate 76 69 Respiratory Rate 16 17 Blood Pressure 145/87 H 143/80 H Pulse Oximetry 100 98 Oxygen Delivery Exam Const: General: comfortable and no acute distress Other: Morbidly obese female patient sitting up on stretcher at this time in no acute distress. HENMT: Ears: TM's normal bilaterally Face/Nose/Sinus: Normal nares present and no epistaxis Mouth: Yes dry mucous membranes Eyes: General: appearance normal, both eyes and all related structures Sclera: sclerae normal Pupils: Equal, round and reactive pupils present EOM: EOMs intact bilaterally Other: Normal 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 Neck: Neck: supple and no JVD Lymphatic: lymphadenopathy not noted Chest: Other: Nontender to palpation Resp: Effort & Inspection: normal respiratory effort Auscultation: rales Cardio: Rate: regular rate Rhythm: regular rhythm Heart sounds: no gallops, Murmur heart sound present and no rubs Other: 2+ holosystolic murmur present. GI: Inspection: non-distended GI Palp: Yes Soft to palpation and Yes Tenderness to palpation present (GI) (Generalized nonfocal) Auscultation: normal bowel sounds Skin: General skin exam: normal color, no rashes or lesions noted and no erythema Lesions: no lesions noted Rashes: no rashes noted Wounds: no wounds Neuro: General: gait normal Speech: normal speech Motor exam (neuro): 5/5 motor strength present throughout and Normal motor muscle tone present throughout Sensory Exam: normal sensation Other: Nonfocal exam Extrem: General: normal to inspection, no edema and no pedal edema Other: Full active range of motion of all extremities without deficit. Psych: Mental Status: mental status grossly normal Affect: normal affect H&P: Results Labs Labs: Short CBC 02/09/25 Range/Units 16:34 WBC 10.8 H (4.5-10.0) K/mm3 Hgb 12.3 D (12.0-15.0) g/dL Hct 38.5 (37.0-47.0) % Plt Count 270 (150-375) k/mm3 BMP 02/09/25 16:58 Sodium 137 Potassium 3.4 Chloride 102 Carbon Dioxide 25 BUN 36 H Creatinine 2.75 H Glucose 259 H Calcium 10.1 Cardiac Enzymes 02/09/25 Range/Units 16:58 Total Creatine Kinase 23 L (30-135) U/L Troponin I 0.021 (0.000-0.034) ng/mL Liver Function 02/09/25 Range/Units 16:58 Total Bilirubin 0.6 (0.2-1.3) mg/dL AST 20 (14-36) U/L ALT 21 (6-35) U/L Alkaline Phosphatase 111 (38-126) U/L Albumin 3.9 (3.5-5.1) g/dL Urine 02/09/25 Range/Units 18:19 Urine Color Yellow (Yellow) Urine Appearance Cloudy H (Clear) Urine pH 5.5 (5.0-9.0) Ur Specific [place] 1.021 (1.001-1.035) Urine Protein 4+ H (Negative) mg/dL Urine Glucose (UA) 1+ H (Negative) mg/dL Assessment and Plan Assessment and plan (1) Abnormal chest x-ray: Code(s): R93.89 - Abnormal findings on diagnostic imaging of other specified body structures Status: Acute Assessment and Plan: * Abnormal chest x-ray showing lingular consolidation versus atelectasis and likely persistent small pericardial effusion * Continue diuretics of Bumex and spironolactone * Start antibiotic of Levaquin renally dosed per pharmacy * Incentive spirometer * Trend labs and vital signs * Obtain blood cultures (2) Diarrhea: Code(s): R19.7 - Diarrhea, unspecified Status: Acute Assessment and Plan: * Unknown uncertain etiology. * Consult GI for persistent diarrhea * Collect stool for C diff, O&P and culture, as pt has recently been on abx, there is concern for interval development of C-diff. * Continue with Levaquin and add Flagyl * Monitor and trend labs for electrolytes and replace as necessary * Bentyl and Zofran ordered (3) Acute electrocardiogram changes: Code(s): R94.31 - Abnormal electrocardiogram [ECG] [EKG] Status: Acute Assessment and Plan: * New changes of uncertain specificity * EKG from 01/28/2025 showing sinus rhythm with PVCs and a LEFT bundle-branch block. New EKG from today, 02/09/2025 showing normal sinus rhythm 74 beats per minute with a new RIGHT BBB and new left anterior fascicular block. * Patient endorses chest wall pain. * Trend troponins. * Suspect most likely due to patient's severe renal disease. * Echocardiogram reviewed from January 05, 2025 demonstrating a normal left ventricular systolic function with EF of 65-70% and grade 1 diastolic dysfunction. * Patient does not appear to be hypervolemic. Endorses 20+ lb weight loss over the course of the past month after starting Bumex and spironolactone. * Does not currently follow with cardiology. * Will consult cardiology to assist with further management of diastolic dysfunction and to consult on EKG changes. * Telemetry * Trend labs and vital signs (4) Chronic kidney disease, stage IV (severe): Code(s): N18.4 - Chronic kidney disease, stage 4 (severe) Status: Chronic Assessment and Plan: * Patient appears to be at baseline with creatinine of 2.75 and baseline 2.5- 2.1. * Avoid renal offending agents as possible * Consult Dr. Grimaldo as he is patient's youth director. Appreciate his comanagement. * Trend labs * Daily Weights * Accurate Intake and output (5) Diabetes mellitus: Code(s): E11.9 - Type 2 diabetes mellitus without complications Status: Chronic Assessment and Plan: * Adult sliding scale insulin protocol moderate dose * Check A1c * Hypoglycemic protocol * Glucose checks a.c. and HS * Diabetic diet (6) HTN (hypertension): Qualifiers: Hypertension type: unspecified Qualified Code(s): I10 - Essential (primary) hypertension Code(s): I10 - Essential (primary) hypertension Status: Chronic Assessment and Plan: * Continue home medications as appropriate. Quality VTE Prophylaxis VTE prophylaxis: pharmacologic ordered Hospitalist MIPS Advance Care Plan I have confirmed that the patient's Advanced Care Plan is present, code status is documented, or surrogate decision maker is listed in patient medical record.: Yes Medication Reconciliation I have utilized all available resources to obtain, update and review the patients current medications (includes all prescriptions, OTC, herbals, cannabis, and nutritional supplements).: Yes
[2025-02-09] MEDS: AZITHROMYCIN 250 MG TABLET 500 MG PO (22:35)
[2025-02-09] MEDS: cefTRIAXone 2 GM/NS 100 ML 2 GM/100 ML BAG IVPB (22:35)
--- NOTE | 2025-02-09 22:35 | PC.NURSE ---
no cultures needed prior to antibiotics per MD Baca
--- NOTE | 2025-02-09 23:00 | PC.NURSE ---
patient being admitted with antibiotic infusing per order
--- NOTE | 2025-02-09 23:12 | ADMGEN ---
This patient, Jennifer Londono, was admitted to Medical Room 342-01. Patient/family oriented to hospital policies and general routines including ID bracelet, bed and alarms, visiting hours, pain management, procedures, bathroom and other care routines, personal items, smoking policy, room service/diet, and visiting hours. Information on how to activate the Rapid Response Team has been discussed. Patient/Family are encouraged to report perceived risks to care and to ask questions if they do not understand what they are told or what they should do.
[2025-02-09 23:13] LABS: Glucose Point of Care 218 mg/dl (65-105)
[2025-02-10] VITALS (8 sets, daily range): BP systolic 119–223; BP diastolic 64–105; PULSE 74–108; RESP 16–18; TEMP 36.4–36.7; O2SAT 92–100; BMI 38.2; BMI 38.0
[2025-02-10] MEDS: levoFLOXacin 500 MG/D5W 100 ML 500 MG/100 ML BAG 100 MG IVPB (00:06)
[2025-02-10] MEDS: metroNIDAZOLE 500 MG/ISO 100ML 500 MG/100 ML BAG 100 MG IVPB ×2 (00:06→16:59)
[2025-02-10 00:55] LABS: Hemoglobin A1C 7.8 % (<5.7)
[2025-02-10 00:59] LABS: Troponin I 0.024 ng/mL (0.000-0.034)
[2025-02-10] MEDS: ATORVASTATIN 10 MG TABLET 20 MG PO ×2 (01:24→21:38)
[2025-02-10] MEDS: TOPIRAMATE 25 MG TABLET PO ×2 (01:25→21:38)
[2025-02-10] MEDS: carvediloL 6.25 MG TABLET PO ×2 (01:25→21:38)
[2025-02-10] MEDS: PRAZOSIN HCL 1 MG CAPSULE 2 MG PO ×2 (01:25→21:37)
[2025-02-10] MEDS: MELATONIN 5 MG TABLET PO ×2 (01:25→21:38)
[2025-02-10] MEDS: AMITRIPTYLINE HCL 25 MG TABLET 50 MG PO ×2 (01:26→21:38)
[2025-02-10] MEDS: ALPRAZolam (*CRX) 0.5 MG TABLET PO (01:26)
[2025-02-10] MEDS: ZOLPIDEM TARTRATE (*CRX) 5 MG TABLET 10 MG PO ×2 (01:26→21:36)
[2025-02-10] MEDS: ACYCLOVIR 400 MG TABLET PO ×2 (01:26→21:38)
[2025-02-10] MEDS: traZODone HCL 50 MG TABLET PO ×2 (01:27→21:38)
[2025-02-10] MEDS: INSULIN GLARGINE (*BKC) 100 UNITS/ML 38 UNITS SUB-Q ×3 (01:27→20:46)
[2025-02-10] MEDS: HYDROcodone/acetaminophen (*CRX) 10-325 MG TABLET 1 TAB PO ×2 (01:27→16:56)
[2025-02-10 06:40] LABS: Basophils Absolute Auto 0.1 K/mm3 (0.0-0.1); Basophils Percent Auto 0.7 % (0.2-1.2); Eosinophils Absolute Auto 0.2 K/mm3 (0-0.3); Eosinophils Percent Auto 1.9 % (0-4.4); Hemoglobin 11.1 g/dL (12.0-15.0); Immature Granulocyte Absolute 0.05 K/mm3 (0.00-0.031); Immature Granulocyte Percent A 0.5 % (0-0.5); Lymphocytes Percent Auto 22.8 % (18.3-44.2); Mean Corpuscular HGB Conc 30.8 g/dl (32-36); Mean Corpuscular Hemoglobin 28.3 pg (26-34); Mean Corpuscular Volume 91.8 fl (80-100); Mean Platelet Volume 10.4 fl (7.4-10.4); Monocytes Absolute Auto 0.6 K/mm3 (0.1-0.6); Monocytes Percent Auto 6.3 % (2.6-8.5); Neutrophils Absolute Auto 6.5 K/mm3 (1.3-6.7); Neutrophils Percent Auto 67.8 % (45.5-73.1); Platelet Count Result 226 k/mm3 (150-375); Red Blood Count 3.92 M/mm3 (4.2-5.4); White Blood Count 9.6 K/mm3 (4.5-10.0)
[2025-02-10 07:02] LABS: Anion Gap 8 mmol/L (4-12); Blood Urea Nitrogen 36 mg/dL (7-17); Calcium 9.9 mg/dL (8.4-10.2); Carbon Dioxide 23 mmol/L (22-30); Chloride 104 mmol/L (98-107); Estimated CRCL calculation 29 ml/min; Estimated Glomerular Filt Rate 18; Glucose 280 mg/dL (65-110); Potassium 3.7 mmol/L (3.4-5.0); Sodium 135 mmol/L (137-145)
[2025-02-10 07:06] LABS: Influenza A QL RT-PCR Negative (Negative); Influenza B QL RT-PCR Negative (Negative); RSV RNA, RT-PCR Negative (Negative); SARS-CoV-2 RNA PCR Negative (Negative)
[2025-02-10 08:48] LABS: Glucose Point of Care 240 mg/dl (65-105)
[2025-02-10] MEDS: INSULIN ASPART (*BKC) 100 UNITS/ML SUB-Q ×4 (10:02→20:46)
[2025-02-10] MEDS: ONDANSETRON INJ 4 MG/2 ML VIAL IV PUSH ×2 (10:19→17:13)
[2025-02-10] MEDS: DICYCLOMINE HCL INJ 20 MG/2 ML VIAL IM (10:26)
--- NOTE | 2025-02-10 10:57 | P.CONCA_ITS ---
Assessment and Plan Assessment and plan (1) Abnormal EKG: Code(s): R94.31 - Abnormal electrocardiogram [ECG] [EKG] Status: Acute (2) Pericardial effusion: Code(s): I31.39 - Other pericardial effusion (noninflammatory) Status: Acute (3) Hyperlipidemia: Code(s): E78.5 - Hyperlipidemia, unspecified Status: Acute (4) HTN (hypertension): Qualifiers: Hypertension type: unspecified Qualified Code(s): I10 - Essential (primary) hypertension Code(s): I10 - Essential (primary) hypertension Status: Chronic Plan Problem list: 1. Abnormal EKG: EKG from this admission shows left anterior fascicular block and right bundle branch block. These were present on old EKGs. --No chest pain; she has positional dizziness when she bends down but none otherwise --Troponin negative --TTE in 01/2025 showed normal LVEF,grade I diastolic dysfunction, no significant valvular pathology, small to moderate posterior and trace circumferential pericardial effusion 2. HTN 3. HLD 4. Hypokalemia- resolved 5. CKD- IV 6. IDDM Plan: -EKG shows sinus rhythm with LAFB and RBBB which are also present on old EKGs. No LBBB (no S inV1, V2). Pt without any chest pain or SOB. She has dizziness which is positional (bending down). TTE in 01/2025 showed normal LVEF,grade I diastolic dysfunction, no significant valvular pathology, small to moderate posterior and trace circumferential pericardial effusion. No further work up indicated at this time. Consider an outpatient stress test to evaluate for CAD given risk factors of HTN, HLD, DM, FH of heart disease -Limited echo to evaluate for any increase in pericardial effusion -Continue statin -Continue bumex, spironolactone -Continue coreg, amlodipine, hydralazine, and chlorthalidone at home dose -Management of other medical problems per primary team Thank you for allowing us to participate in the care of your patient. Cardiology will sign off. Please call us with any questions. 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 Cardiology is consulted for left bundle branch block on EKG. She had a recent hospitalization from January 20 to January 30 at [facility] followed by transfer to [facility] for further evaluation and management for chronic diarrhea, fever of unknown origin, worsening kidney failure, and pericardial effusion. Post discharge from [facility], patient continued to have diarrhea which is out of the ordinary for her as she normally has constipation, dry heaves, and 2 episodes of emesis. She has persistent dry cough with night sweats and chills. She lost about 20 lb over the last month. She has chronic leg swelling which has improved over the past month with weight loss. She has dizziness when she bends down. No chest pain, shortness of breath, lightheadedness, palpitations, PND, or orthopnea. Patient has been in the shower this morning off and on since 7:00 a.m. as she feels hot water is helping her dry heaves. At the time of my interview she continues to be nauseous. Per RN taking care of patient, patient has been in the shower for about 1-1/2 hours. Workup: Potassium: 3.4 at admission Creatinine: 2.75 (baseline creatinine 2.5-2.9) Troponin: 0.021 BNP: 938 EKG: Sinus rhythm with left anterior fascicular block and right bundle branch block TTE in January,: LVEF 65-70%, grade 1 diastolic dysfunction, severely enlarged left atrium, small to moderate posteriorly located pericardial effusion and trace circumferential Chest x-ray: lingular consolidation versus atelectasis and a likely persistent small pericardial effusion CT abdomen pelvis: unchanged hepatic splenomegaly and no acute findings Review of Systems 2 Review of Systems: A complete review of systems could not be performed as patient was very nauseous and unable to answer more questions PMFSH Past Medical History Medical History (Updated 02/09/25 @ 22:43 by Kandace Erazo, A P SUPERVISOR-C) Diabetes mellitus Acute electrocardiogram changes Abnormal chest x-ray Nonalcoholic steatohepatitis Nephrotic syndrome Chronic lumbar pain Morbid obesity due to excess calories Migraine headache without aura 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 Gastroparesis Irritable bowel syndrome with constipation Cyclic vomiting syndrome Insulin dependent diabetes mellitus Hyperlipidemia Hypertension Gastroesophageal reflux disease Vitamin B 12 deficiency Anxiety Depression Hypothyroidism Fibromyalgia Rheumatoid arthritis Endometriosis Herpes Uterine fibroid Peptic ulcer Bronchitis Surgical History Surgical History History of cholecystectomy History of detached retina repair History of partial knee replacement History of hysterectomy History of laparoscopy Removal of uterine fibroids Family History Family History Mother Diabetes mellitus Hypertension Family history of elevated blood lipids Sibling Family history of obesity Patient's sister is in good health Father Hypertension Family history of cardiovascular disease Other Acute myocardial infarction Family history of arthritis Family history of heart disease in male family member before age 55 Family history of thyroid disease Social History Social History Social History: Lives alone in [place]. with no children. No alcohol, tobacco, illicit substance abuse. Surrogate decision maker: Susan Mariano, sister. Code status: Full code. Caffeine-daily Smoking status: Never smoker Alcohol intake: never Drinks per week: 1 Alcohol use details: rarely Substance use: never Substance use type: does not use Do You Feel Safe in your Home?: Yes Lack of Transportation: No Lack of Food: Never True Current Housing: I Have Housing Concerned About Future Housing: No Difficulty Paying Gas/Electric Bills: No Difficulty Paying for Meds: No Currently Unemployed: No Education: Associate Degree Difficulty w/ Childcare or Family Care: No Living arrangements: with family Spiritual care concerns: No Meds Home Medications and Allergies Home Medications ?Medication ?Instructions ?Recorded ?Confirmed ?Type docusate sodium 100 mg capsule 100 mg PO DAILY 11/02/19 02/09/25 History (Colace) sertraline 100 mg tablet (Zoloft) 100 mg PO DAILY 11/02/19 02/09/25 History zolpidem 10 mg tablet 10 mg PO QPM PRN Insomnia 11/02/19 02/09/25 History prazosin 2 mg capsule (Minipress) 2 mg PO HS 07/03/20 02/09/25 History coenzyme Q10 100 mg capsule (Co 100 mg PO DAILY 10/03/21 02/09/25 History Q-10) trazodone 50 mg tablet 50 mg PO HS 05/21/22 02/09/25 History Humalog KwikPen Insulin See Protocol subcut TIDWMEAL 03/22/23 02/09/25 History atorvastatin 10 mg tablet 20 mg PO QHS 04/02/23 02/09/25 History ondansetron 4 mg disintegrating 4 mg PO Q8H PRN nausea and 06/03/23 02/09/25 Rx tablet vomiting #10 tabs sumatriptan succinate 6 mg/0.5 mL 6 mg subcut ONCE PRN Migraine 08/01/23 02/09/25 History subcutaneous pen injector Headache alprazolam 0.5 mg tablet 0.5 mg PO TID 09/10/23 02/09/25 History blood-glucose sensor (FreeStyle #1 ea 05/13/24 02/09/25 History Sharita 3 Sensor device) glucagon 3 mg/actuation nasal 3 mg intranasal PRN PRN 05/13/24 02/09/25 History spray (Baqsimi) Hypoglycemia insulin glargine 100 unit/mL (3 38 unit subcut BID 05/13/24 02/09/25 History mL) subcutaneous pen (Lantus Solostar U-100 Insulin) pen needle, diabetic 32 gauge x #1,200 ea 05/13/24 02/09/25 History (BD Mer 2nd Gen Pen Needle) pioglitazone 15 mg tablet 15 mg PO DAILY 05/13/24 02/09/25 History cholecalciferol (vitamin D3) 1,250 1,250 mcg PO WEEKLY 06/02/24 02/09/25 History mcg (50,000 unit) tablet prochlorperazine maleate 10 mg 20 mg PO Q4-6H PRN Nausea 06/02/24 02/09/25 History tablet bumetanide 1 mg tablet 1 mg PO BID #60 tabs 06/25/24 02/09/25 Rx spironolactone 25 mg tablet 25 mg PO DAILY #30 tabs 06/25/24 02/09/25 Rx acyclovir 400 mg tablet 400 mg PO BID #180 tabs 08/20/24 02/09/25 Rx cholecalciferol (vitamin D3) 125 125 mcg PO DAILY 08/20/24 02/09/25 History mcg (5,000 unit) tablet zinc citrate 11 mg chewable tablet 11 mg PO DAILY 08/20/24 02/09/25 History amitriptyline 25 mg tablet 50 mg (2 x 25 mg) PO HS #180 tabs 11/18/24 02/09/25 Rx amlodipine 5 mg tablet See Rx Instructions .Route 01/04/25 02/09/25 Rx .COMPLEX #90 tabs topiramate 25 mg sprinkle capsule 50 mg (2 x 25 mg) PO BID #360 caps 01/12/25 02/09/25 Rx (Topamax) carvedilol 6.25 mg tablet 6.25 mg PO Q12H 02/09/25 02/09/25 History chlorthalidone 25 mg tablet 25 mg PO DAILY 02/09/25 02/09/25 History hydralazine 50 mg tablet 50 mg PO Q8H PRN hypertension 02/09/25 02/09/25 History pantoprazole 40 mg tablet,delayed 40 mg PO DAILY Nausea 02/09/25 02/09/25 History release Allergies Allergy/AdvReac Type Severity Reaction Status Date / Time hydralazine Allergy Severe Itching Verified 02/09/25 16:15 latex Allergy Severe itching Verified 02/09/25 16:15 metoclopramide Allergy Severe Redness of Verified 02/09/25 16:15 Skin Vital Signs Vital Signs - 24 hr 02/09/25 16:18 02/09/25 16:31 02/09/25 16:33 Temperature 36.6 C Pulse Rate 82 87 74 Respiratory Rate 18 14 17 Blood Pressure 123/76 148/82 H Pulse Oximetry 99 98 98 Oxygen Delivery Room Air 02/09/25 16:53 02/09/25 17:01 02/09/25 17:02 Temperature Pulse Rate 73 74 Respiratory Rate 21 H 13 Blood Pressure 151/82 H Pulse Oximetry 96 98 99 Oxygen Delivery 02/09/25 17:15 02/09/25 17:16 02/09/25 17:31 Temperature Pulse Rate 76 74 78 Respiratory Rate 13 23 H 19 Blood Pressure 143/87 H 135/81 Pulse Oximetry 95 100 99 Oxygen Delivery 02/09/25 18:01 02/09/25 18:30 02/09/25 18:45 Temperature 36.7 C Pulse Rate 76 75 73 Respiratory Rate 16 10 L 18 Blood Pressure 145/87 H Pulse Oximetry 100 97 97 Oxygen Delivery 02/09/25 19:00 02/09/25 19:31 02/09/25 19:33 Temperature Pulse Rate 71 69 Respiratory Rate 24 H 17 Blood Pressure 143/80 H Pulse Oximetry 97 98 98 Oxygen Delivery 02/09/25 19:46 02/09/25 20:00 02/09/25 20:01 Temperature Pulse Rate Respiratory Rate Blood Pressure 151/73 H 153/84 H Pulse Oximetry 97 97 Oxygen Delivery 02/09/25 20:15 02/09/25 20:16 02/09/25 21:01 Temperature Pulse Rate Respiratory Rate Blood Pressure 155/87 H 136/81 Pulse Oximetry 95 98 Oxygen Delivery 02/09/25 21:16 02/09/25 22:29 02/09/25 23:13 Temperature 36.9 C 36.6 C Pulse Rate 72 65 72 Respiratory Rate 17 16 Blood Pressure 153/83 H 150/81 H 169/81 H Pulse Oximetry 98 99 97 Oxygen Delivery 02/10/25 00:00 02/10/25 04:00 02/10/25 05:56 Temperature 36.4 C L Pulse Rate 74 89 87 Respiratory Rate 16 Blood Pressure 119/64 Pulse Oximetry 93 Oxygen Delivery 02/10/25 10:10 Temperature Pulse Rate 80 Respiratory Rate Blood Pressure Pulse Oximetry Oxygen Delivery Exam 2 Narrative: General: Alert oriented x3, no acute distress Neck: Supple, no JVD Chest: Bilaterally clear to auscultation, no rales or rhonchi Cardiac: S1, S2 +, regular rate, regular rhythm, no murmurs or rubs Extremities: No pedal edema, no skin rash Neurologic: Alert and oriented x3, no focal neurological deficits Results Labs and Meds 02/10/25 06:15 02/10/25 06:15 Lab results: Cardiac Enzymes 02/09/25 02/10/25 Range/Units 16:58 00:10 AST 20 (14-36) U/L Troponin I 0.021 0.024 (0.000-0.034) ng/mL CBC 02/09/25 02/10/25 Range/Units 16:34 06:15 WBC 10.8 H 9.6 (4.5-10.0) K/mm3 RBC 4.33 3.92 L (4.2-5.4) M/mm3 Hgb 12.3 D 11.1 L (12.0-15.0) g/dL Hct 38.5 36.0 L (37.0-47.0) % Plt Count 270 226 (150-375) k/mm3 Lymph # (Auto) 1.87 2.20 (0.9-3.2) K/mm3 Riley # (Auto) 0.5 0.6 (0.1-0.6) K/mm3 Eos # (Auto) 0.2 0.2 (0-0.3) K/mm3 Baso # (Auto) 0.1 0.1 (0.0-0.1) K/mm3 Comprehensive Metabolic Panel 02/09/25 02/10/25 Range/Units 16:58 06:15 Sodium 137 135 L (137-145) mmol/L Potassium 3.4 3.7 (3.4-5.0) mmol/L Chloride 102 104 (98-107) mmol/L Carbon Dioxide 25 23 (22-30) mmol/L BUN 36 H 36 H (7-17) mg/dL Creatinine 2.75 H 2.79 H (0.7-1.0) mg/dL Glucose 259 H 280 H (65-110) mg/dL Calcium 10.1 9.9 (8.4-10.2) mg/dL AST 20 (14-36) U/L ALT 21 (6-35) U/L Alkaline Phosphatase 111 (38-126) U/L Total Protein 7.0 (6.3-8.2) g/dL Albumin 3.9 (3.5-5.1) g/dL Intake and Output 02/09/25 02/10/25 02/10/25 23:59 07:59 15:59 Intake Total 1000 100 Output Total 0 Balance 1000 100 Intake: IV 1000 100 Sodium Chloride 0.9% IV 1,000 1000 ml @ 999 mls/hr IV CONT .Q1H1M STA Rx#:[id number] metroNIDAZOLE 500 MG/ISO 100ML 100 500 mg In 100 ml @ 100 mls/hr IVPB Q8H SANTHOSH Rx#:[id number] Output: Urine 0 Patient Weight 02/10/25 23:59 Weight 113.6 kg EKG Interpretation EKG shows: sinus rhythm (Left anterior fascicular block, right bundle branch)
--- NOTE | 2025-02-10 12:17 | PC.NURSE ---
Patient in room at 0930 found to be dry heaving and complaining of nausea, no emesis was observed. She refused her IV antibiotic, stating it was the antibiotic that was making her sick. She also refused all oral medications, stating she could not tolerate anything by mouth. Patient insisted the only thing that would help ease her nausea was to take a hot shower as the steam was healing her . This nurse explained that a shower is not possible as she is on a heart rate monitor and her heart rate was bradycardic. Patient was explicitly instructed not to take a shower as she was unstable and not safe to be up in the shower at that time. Bentyl and Zofran administered for nausea. When returning to the nursing station, HR monitor showed leads were off. Patient had stepped in the shower and refused to exit after repeatedly being instructed to do so. Hospitalist and charge nurse notified. Patient is also refusing any alarms.
[2025-02-10 12:20] LABS: Glucose Point of Care 354 mg/dl (65-105)
--- NOTE | 2025-02-10 13:35 | P.CONNP_ITS ---
Assessment and Plan Assessment and plan (1) Acute kidney injury: Code(s): N17.9 - Acute kidney failure, unspecified Status: Acute Assessment and Plan: * as noted on admission (with a creatinine of 2.75mg/dl) * on discharge from [facility] last month, discharge creatinie was 1.9mg/dl * suspect due to prerenal factors (poor oral intake + nausea _ diarrhea) along with use of diuretics prior to admission * evaluation to date noted: * CT of A/P without obstruction * CPK normal * UA not indicative of inifec * urine studies pending * hold diuretic therapy for now * agree with gentle IVF hydration * follow volume status closely (2) Chronic kidney disease, stage IV (severe): Code(s): N18.4 - Chronic kidney disease, stage 4 (severe) Status: Chronic Assessment and Plan: * baseline creatinine runs ~ 2.0 - 2.5mg/dl in the last year * outpatient evaluation significant for normal renal ultrasound, negative serological profile, and nephrotic range proteinuria * CKD thought to be due to her previous bouts of LUKE/ARF along with diabetes, hypertension, and necessity of chronic diuretic therapy * diuretics are needed to keep swelling/edema (which is secondary to nephrotic range proteinuria/nephrotic syndrome) stable/controlled (3) Cyclic vomiting syndrome: Code(s): R11.15 - Cyclical vomiting syndrome unrelated to migraine Status: Acute Assessment and Plan: * known history with previous admission for this issue * GI following with recommendations noted * previous EGD showed gastric retention and gastritis * last emptying scan was within normal limits * on gentle IVFs given poor oral intake * continue PPI and carafat * empiric metronidazole * antiemetics, haldol, bentyl, and ativan PRNN * advance det as tolerated (4) Diarrhea: Code(s): R19.7 - Diarrhea, unspecified Status: Acute Assessment and Plan: * noted by history * complicated by know history of irritable bowel syndrome * follow-up on stool studies * GI following as well (5) Hypertension: Code(s): I10 - Essential (primary) hypertension Status: Acute Assessment and Plan: * reasonable control * on metoprolol, amlodipine, prazosin, and losartan * may need to hold losartan depending trend of renal function * follow trend of hemodynamics (6) Insulin dependent diabetes mellitus: Status: Chronic Assessment and Plan: * follow accu-cheks * glycemic control per hospitalist I will continue to follow the patient with you while she remains hospitalized and make further recommendations as deemed necessary. Thank you for allowing me to participate in the care of this patient. L History of Present Illness Reason for Consult Consult date: 02/10/25 Reason for consult: acute renal failure (on chronic kidney disease) Chief Complaint Chief complaint: Diarrhea, pneumonia History of Present Illness Narrative: The patient is a 49-year-old female with an extensive past medical history as outlined below who presented to [facility] due to profound weakness. The patient was just recently hospitalized here in mid January of this year but her hospital stay was complicated by fever of unknown origin in association with acute kidney injury on top of her baseline chronic kidney disease along with a pericardial effusion. She was transferred to [facility] for further management of these issues. Her renal function as well as her fevers apparently resolved with just supportive intervention and diuresis but since her discharge from [facility], she has been having ongoing issues and problems with diarrhea which is out of the ordinary for her since she has issues with chronic constipation. Other associated symptoms include a dry cough, diaphoresis, and chills but no overt fevers that she is aware of. On the morning of admission, she woke up with severe cramping in her legs and was concerned that this may be a sign of dehydration or hypokalemia as she has had these problems before. Given these constellation of symptoms have been going on as well as her symptoms on the day of admission, she presented to the ER for further assessment. Workup and evaluation emergency room demonstrated the patient be hemodynamically stable but in mild distress. Routine blood test demonstrated unremarkable CBC, and a chemistry panel with mild hypokalemia but with evidence of acute kidney injury/acute renal failure on top of her baseline chronic kidney disease once again. Her urinalysis showed 4+ protein and 1+ glucose along with trace ketones and 1+ bacteria but is otherwise unremarkable. EKG just showed normal sinus rhythm with no evidence of ischemia. Her chest x-ray showed a lingular consolidation versus atelectasis and once again a likely persistent small pericardial effusion. Given her GI symptoms as mentioned, a CT scan of the abdomen pelvis did not demonstrate any acute pathology other than what was noted on previous imaging with regard to her the hepatosplenomegaly. Given her acute kidney injury on top of her baseline kidney disease in conjunction with her constellation of symptoms as mentioned above, she was admitted to the hospital for further evaluation and therapy. Since her admission, she states that she feels a bit worse. She now appears to have severe/significant vomiting in association with her uncontrolled diarrhea as well as abdominal pain. Given these symptoms, she has not had any significant oral intake since admission. Renal consultation was requested due to her acute kidney injury/acute renal failure on top of her baseline chronic kidney disease. The patient is somewhat familiar to me as I follow her in the office for management of her chronic kidney disease. In the last year so, her creatinine has been running around 2.0 - 2.5 mg/dL and is thought to be secondary to a combination of her diabetes, hypertension, and previous bouts of acute kidney injury/acute renal failure secondary to volume depletion given her known history of cyclic vomiting syndrome. Her renal dysfunction is further complicated by the fact that she requires chronic diuretic therapy to maintain stability in her fluid/volume status and edema Her issues with fluid retention and swelling at baseline are secondary to her nephrotic range proteinuria/nephrotic syndrome. on her last hospitalization here in mid January, her creatinine had risen to as high as 2.84 mg/dL. When she was transferred over to [facility], she was started on more aggressive IV diuresis given her swelling and edema which significantly improved her lower extremity swelling/edema with almost 20 lb weight loss for which was presumably all fluid. Her creatinine actually improved with diuresis while at [facility] and her discharge creatinine was 1.9 mg/dL. On discharge, she was resumed on her Bumex and spironolactone and chlorthalidone was added as well for both blood pressure control as well as further optimization of her fluid status. However, as mentioned above, her creatinine on admission was 2.75 mg/dL. Currently, at the time my evaluation, this patient still does not feel very good secondary to her ongoing issues/problems with diarrhea, nausea, vomiting, and abdominal pain.. Review of Systems 2 Review of Systems: As per HPI. 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 Gastroparesis Irritable bowel syndrome with constipation Cyclic vomiting syndrome Insulin dependent diabetes mellitus Hyperlipidemia Hypertension Gastroesophageal reflux disease Vitamin B 12 deficiency Anxiety Depression Hypothyroidism Fibromyalgia Rheumatoid arthritis Endometriosis Herpes Uterine fibroid Peptic ulcer Bronchitis Surgical History Surgical History History of cholecystectomy History of detached retina repair History of partial knee replacement History of hysterectomy History of laparoscopy Removal of uterine fibroids Family History Family History Mother Diabetes mellitus Hypertension Family history of elevated blood lipids Sibling Family history of obesity Patient's sister is in good health Father Hypertension Family history of cardiovascular disease Other Acute myocardial infarction Family history of arthritis Family history of heart disease in male family member before age 55 Family history of thyroid disease Social History Social History Social History: Lives alone in [place]. with no children. No alcohol, tobacco, illicit substance abuse. Surrogate decision maker: Susan Ghoshzier, sister. Code status: Full code. Caffeine-daily Smoking status: Never smoker Alcohol intake: never Drinks per week: 1 Alcohol use details: rarely Substance use: never Substance use type: does not use Do You Feel Safe in your Home?: Yes Lack of Transportation: No Lack of Food: Never True Current Housing: I Have Housing Concerned About Future Housing: No Difficulty Paying Gas/Electric Bills: No Difficulty Paying for Meds: No Currently Unemployed: No Education: Associate Degree Difficulty w/ Childcare or Family Care: No Living arrangements: with family Spiritual care concerns: No Meds Home Medications and Allergies Home Medications ?Medication ?Instructions ?Recorded ?Confirmed ?Type docusate sodium 100 mg capsule 100 mg PO DAILY 11/02/19 02/09/25 History (Colace) sertraline 100 mg tablet (Zoloft) 100 mg PO DAILY 11/02/19 02/09/25 History zolpidem 10 mg tablet 10 mg PO QPM PRN Insomnia 11/02/19 02/09/25 History prazosin 2 mg capsule (Minipress) 2 mg PO HS 07/03/20 02/09/25 History coenzyme Q10 100 mg capsule (Co 100 mg PO DAILY 10/03/21 02/09/25 History Q-10) trazodone 50 mg tablet 50 mg PO HS 05/21/22 02/09/25 History Humalog KwikPen Insulin See Protocol subcut TIDWMEAL 03/22/23 02/09/25 History atorvastatin 10 mg tablet 20 mg PO QHS 04/02/23 02/09/25 History ondansetron 4 mg disintegrating 4 mg PO Q8H PRN nausea and 06/03/23 02/09/25 Rx tablet vomiting #10 tabs sumatriptan succinate 6 mg/0.5 mL 6 mg subcut ONCE PRN Migraine 08/01/23 02/09/25 History subcutaneous pen injector Headache alprazolam 0.5 mg tablet 0.5 mg PO TID 09/10/23 02/09/25 History blood-glucose sensor (FreeStyle #1 ea 05/13/24 02/09/25 History Sharita 3 Sensor device) glucagon 3 mg/actuation nasal 3 mg intranasal PRN PRN 05/13/24 02/09/25 History spray (Baqsimi) Hypoglycemia insulin glargine 100 unit/mL (3 38 unit subcut BID 05/13/24 02/09/25 History mL) subcutaneous pen (Lantus Solostar U-100 Insulin) pen needle, diabetic 32 gauge x #1,200 ea 05/13/24 02/09/25 History (BD Mer 2nd Gen Pen Needle) pioglitazone 15 mg tablet 15 mg PO DAILY 05/13/24 02/09/25 History cholecalciferol (vitamin D3) 1,250 1,250 mcg PO WEEKLY 06/02/24 02/09/25 History mcg (50,000 unit) tablet prochlorperazine maleate 10 mg 20 mg PO Q4-6H PRN Nausea 06/02/24 02/09/25 History tablet bumetanide 1 mg tablet 1 mg PO BID #60 tabs 06/25/24 02/09/25 Rx spironolactone 25 mg tablet 25 mg PO DAILY #30 tabs 06/25/24 02/09/25 Rx acyclovir 400 mg tablet 400 mg PO BID #180 tabs 08/20/24 02/09/25 Rx cholecalciferol (vitamin D3) 125 125 mcg PO DAILY 08/20/24 02/09/25 History mcg (5,000 unit) tablet zinc citrate 11 mg chewable tablet 11 mg PO DAILY 08/20/24 02/09/25 History amitriptyline 25 mg tablet 50 mg (2 x 25 mg) PO HS #180 tabs 11/18/24 02/09/25 Rx amlodipine 5 mg tablet See Rx Instructions .Route 01/04/25 02/09/25 Rx .COMPLEX #90 tabs topiramate 25 mg sprinkle capsule 50 mg (2 x 25 mg) PO BID #360 caps 01/12/25 02/09/25 Rx (Topamax) carvedilol 6.25 mg tablet 6.25 mg PO Q12H 02/09/25 02/09/25 History chlorthalidone 25 mg tablet 25 mg PO DAILY 02/09/25 02/09/25 History hydralazine 50 mg tablet 50 mg PO Q8H PRN hypertension 02/09/25 02/09/25 History pantoprazole 40 mg tablet,delayed 40 mg PO DAILY Nausea 02/09/25 02/09/25 History release dicyclomine 10 mg capsule 10 mg PO QID PRN abdominal pain 02/14/25 Rx #30 caps fluconazole 200 mg tablet 200 mg PO DAILY #10 tabs 02/14/25 Rx metronidazole 500 mg tablet 500 mg PO Q8H #4 tabs 02/14/25 Rx sucralfate 1 gram tablet 1 g PO ACHS #10 tabs 02/14/25 Rx Allergies Allergy/AdvReac Type Severity Reaction Status Date / Time hydralazine Allergy Severe Itching Verified 02/09/25 16:15 latex Allergy Severe itching Verified 02/09/25 16:15 metoclopramide Allergy Severe Redness of Verified 02/09/25 16:15 Skin Vital Signs Vital Signs Temp Pulse Resp BP Pulse Ox O2 Del Method 02/10/25 13:00 97.6 F 83 18 223/105 H 100 02/10/25 09:00 100 Room Air 02/10/25 05:56 97.5 F L 87 16 119/64 93 02/10/25 04:00 89 02/10/25 00:00 74 02/09/25 23:13 97.9 F 72 16 169/81 H 97 02/09/25 22:29 98.4 F 65 17 150/81 H 99 02/09/25 21:16 72 153/83 H 98 02/09/25 21:01 136/81 02/09/25 20:16 155/87 H 98 02/09/25 20:15 95 02/09/25 20:01 153/84 H 97 02/09/25 20:00 97 02/09/25 19:46 151/73 H 02/09/25 19:33 98 02/09/25 19:31 69 17 143/80 H 98 02/09/25 19:00 71 24 H 97 02/09/25 18:45 73 18 97 02/09/25 18:30 75 10 L 97 02/09/25 18:01 98.1 F 76 16 145/87 H 100 02/09/25 17:31 78 19 135/81 99 02/09/25 17:16 74 23 H 143/87 H 100 02/09/25 17:15 76 13 95 02/09/25 17:02 74 13 99 02/09/25 17:01 73 21 H 151/82 H 98 02/09/25 16:53 96 Exam 2 Narrative: GENERAL APPEARANCE: well developed well nourished female in mild distress HEENT: normocephalic, atraumatic, normal conjunctiva and sclera, nares patient NECK: no lymphadenopathy, thyromegaly, or JVD MOUTH: normal lips, teeth, and gums CARDIOVASCULAR: RRR, normal S1 and S2, no rub RESPIRATORY: clear anteriorly, decreased at bases ABDOMEN: soft, nontender, nondistended, positive bowel sounds present EXTREMITIES: no evidence of cyanosis, clubbing, or edema NEUROLOGICAL: alert and oriented x 3; CN II - XII intact bilaterally; no focal deficits noted; + anxiety Results Lab Results 02/14/25 04:34 02/14/25 04:34 Lab results: Most recent lab results Calcium 9.9 mg/dL (8.4-10.2) 02/10/25 06:15 Phosphorus 3.2 mg/dL (2.5-4.5) 02/09/25 16:58 Magnesium 2.0 mg/dL (1.6-2.3) 02/10/25 06:15
[2025-02-10] MEDS: HALOPERIDOL LACTATE 5 MG/ML VIAL IM (14:21)
--- NOTE | 2025-02-10 14:33 | P.PNIM_ITS ---
Progress Note: A&P Assessment and Plan (1) Cyclic vomiting syndrome: Code(s): R11.15 - Cyclical vomiting syndrome unrelated to migraine Status: Acute Assessment and Plan: Patient with HX of chronic cyclical N/V syndrome a previous EGD showed gastric retention and gastritis and last emptying scan was within normal limits. She has had HX of DKA secondary to dehydration and cyclical vomiting * GI Consulted appreciate recommendations * Slow IV fluids 50ML/HR monitor of overload * PPI BID * Carafate * Gave Haledol x 1IM ordered PRN * take Ativan TID but not working * Bentyl p.r.n. * Continue Flagyl at this time discontinue Levaquin patient on quite a few prolonging QTC agents/QTC (2) Abnormal chest x-ray: Code(s): R93.89 - Abnormal findings on diagnostic imaging of other specified body structures Status: Acute Assessment and Plan: No change form previous admission * Abnormal chest x-ray showing lingular consolidation versus atelectasis and likely persistent small pericardial effusion * Continue diuretics of Bumex and spironolactone * Incentive spirometer * Trend labs and vital signs * Obtain blood cultures (3) Diarrhea: Code(s): R19.7 - Diarrhea, unspecified Status: Acute Assessment and Plan: HX IBS and multiple hospital admissions typically with constipation * Consult GI for persistent diarrhea * Collect stool for C diff, O&P and culture, as pt has recently been on abx, there is concern for interval development of C-diff. * D/C Levaquin continue Flagyl * Monitor and trend labs for electrolytes and replace as necessary * Bentyl and Zofran ordered (4) Acute electrocardiogram changes: Code(s): R94.31 - Abnormal electrocardiogram [ECG] [EKG] Status: Acute Assessment and Plan: EKG from 01/28/2025 showing sinus rhythm with PVCs and a LEFT bundle-branch block. New EKG from today, 02/09/2025 showing normal sinus rhythm 74 beats per minute with a new RIGHT BBB and new left anterior fascicular block. Patient endorses chest wall pain secodnary to vomiting. Echocardiogram reviewed from January 05, 2025 demonstrating a normal left ventricular systolic function with EF of 65-70% and grade 1 diastolic dysfunction. Patient does not appear to be hypervolemic. Endorses 20+ lb weight loss over the course of the past month after starting Bumex and spironolactone. Pericardial effusion unchanged on CT * Monitor QTC prolonging agents already severe medications * Trend troponins negative * Cardiology consulted * TTE limited to evaluate paracardial effusion * Telemetry * Outpatient stress (5) Chronic kidney disease, stage IV (severe): Code(s): N18.4 - Chronic kidney disease, stage 4 (severe) Status: Chronic Assessment and Plan: Patient appears to be at baseline with creatinine of 2.75 and baseline 2.5-2.1. * Avoid renal offending agents as possible * Consult Dr. 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 Appreciate his comanagement. * Trend labs * Daily Weights * Accurate Intake and output (6) Diabetes mellitus: Code(s): E11.9 - Type 2 diabetes mellitus without complications Status: Chronic Assessment and Plan: * Adult sliding scale insulin protocol moderate dose * Resume Lantus 38u * Check A1c 7.8 * Hypoglycemic protocol * Glucose checks a.c. and HS * Diabetic diet (7) HTN (hypertension): Qualifiers: Hypertension type: unspecified Qualified Code(s): I10 - Essential (primary) hypertension Code(s): I10 - Essential (primary) hypertension Status: Chronic Assessment and Plan: * Continue carvedilol * Hydralazine PO PRN 50mg TID * BP per unit protocol (8) Gastroesophageal reflux disease: Code(s): K21.9 - Gastro-esophageal reflux disease without esophagitis Status: Acute Assessment and Plan: * PPI b.i.d. (9) Yeast infection: Code(s): B37.9 - Candidiasis, unspecified Status: Acute Assessment and Plan: UA is showing yeast * IV fluconazole Plan Code status: Full code per patient DVT prophylaxis: Lovenox Stress ulcer prophylaxis: Protonix 40 BID PT/OT notes: Ambulatory Disposition: Patient continues admission for episode cyclic vomiting with abdominal pain continued diarrhea, GI consulted and further recommendations appreciated will continue current treatment plan patient to discharge home when medically stable. Subjective Date/time seen: 02/10/25 14:33 Interval history: Patient is a 39-year-old female admitted for cyclic vomiting with diarrhea. 02/10/2025: Upon assessment patient with severe vomiting, tearful and rocking back and forth due to abdominal pain as well as reports uncontrolled diarrhea. Per nursing staff patient was refusing oral medications and then got in the shower for are in half and would not get out would not allow nursing staff to cover her IV site. On my assessment she was sitting on the side the bed with uncontrolled vomiting will give IM dose of Haldol now since currently does not have IV access. Review of Systems Review of Systems: All systems reviewed & are unremarkable except as noted in HPI and below Exam Narrative: Uncontrolled vomiting and tearful Const: General: uncomfortable Neck: Neck: supple and no JVD Resp: Auscultation: diminished lung sounds bilateral in the lower lung camara Other: Tachypnea Cardio: Rate: regular rate Other: Sinus rhythm with bundle-branch block on telemetry Skin: General skin exam: no rashes or lesions noted Wounds: no wounds Other: Pale Neuro: General: gait normal Speech: normal speech Extrem: General: normal to inspection Psych: Affect: Anxious affect present Other: Tearful Objective Data Vital Signs Vital Signs: Vital Signs - 24 hr 02/09/25 16:18 02/09/25 16:31 02/09/25 16:33 Temperature 97.8 F Pulse Rate 82 87 74 Respiratory Rate 18 14 17 Blood Pressure 123/76 148/82 H Pulse Oximetry 99 98 98 Oxygen Delivery Room Air 02/09/25 16:53 02/09/25 17:01 02/09/25 17:02 Temperature Pulse Rate 73 74 Respiratory Rate 21 H 13 Blood Pressure 151/82 H Pulse Oximetry 96 98 99 Oxygen Delivery 02/09/25 17:15 02/09/25 17:16 02/09/25 17:31 Temperature Pulse Rate 76 74 78 Respiratory Rate 13 23 H 19 Blood Pressure 143/87 H 135/81 Pulse Oximetry 95 100 99 Oxygen Delivery 02/09/25 18:01 02/09/25 18:30 02/09/25 18:45 Temperature 98.1 F Pulse Rate 76 75 73 Respiratory Rate 16 10 L 18 Blood Pressure 145/87 H Pulse Oximetry 100 97 97 Oxygen Delivery 02/09/25 19:00 02/09/25 19:31 02/09/25 19:33 Temperature Pulse Rate 71 69 Respiratory Rate 24 H 17 Blood Pressure 143/80 H Pulse Oximetry 97 98 98 Oxygen Delivery 02/09/25 19:46 02/09/25 20:00 02/09/25 20:01 Temperature Pulse Rate Respiratory Rate Blood Pressure 151/73 H 153/84 H Pulse Oximetry 97 97 Oxygen Delivery 02/09/25 20:15 02/09/25 20:16 02/09/25 21:01 Temperature Pulse Rate Respiratory Rate Blood Pressure 155/87 H 136/81 Pulse Oximetry 95 98 Oxygen Delivery 02/09/25 21:16 02/09/25 22:29 02/09/25 23:13 Temperature 98.4 F 97.9 F Pulse Rate 72 65 72 Respiratory Rate 17 16 Blood Pressure 153/83 H 150/81 H 169/81 H Pulse Oximetry 98 99 97 Oxygen Delivery 02/10/25 00:00 02/10/25 04:00 02/10/25 05:56 Temperature 97.5 F L Pulse Rate 74 89 87 Respiratory Rate 16 Blood Pressure 119/64 Pulse Oximetry 93 Oxygen Delivery Intake/Output Intake/Output: Intake & Output 02/07/25 02/08/25 02/09/25 02/10/25 23:59 23:59 23:59 23:59 Intake Total 1000 100 Output Total 0 Balance 1000 100 Meds/Results Medications: Active Medications Generic Name Dose Route Start Last Admin Trade Name Freq PRN Reason Stop Dose Admin Acetaminophen 1,000 mg 02/09/25 22:44 Acetaminophen 500 Mg Tablet PO Q6HR PRN Abdominal Cramping Hydrocodone Bitart/Acetaminophen 1 tab 02/09/25 22:44 02/10/25 01:27 Hydrocodone/Acetaminophen (*Crx) 10-325 Mg Tablet PO 1 tab Q6HR PRN Administration Pain 7-10 Acyclovir 400 mg 02/09/25 23:50 02/10/25 11:37 Acyclovir 400 Mg Tablet PO Not Given Q12HR [facility] Alprazolam 0.5 mg 02/09/25 23:50 02/10/25 14:10 Alprazolam (*Crx) 0.5 Mg Tablet PO Not Given TID [facility] Amitriptyline HCl 50 mg 02/09/25 23:50 02/10/25 01:26 Amitriptyline Hcl 25 Mg Tablet PO 50 mg HS [facility] Administration Amlodipine Besylate 5 mg 02/10/25 09:00 02/10/25 11:42 Amlodipine Besylate 5 Mg Tablet BY MOUTH Not Given DAILY [facility] Atorvastatin Calcium 20 mg 02/09/25 23:50 02/10/25 01:24 Atorvastatin 10 Mg Tablet PO 20 mg QHS [facility] Administration Bumetanide 1 mg 02/10/25 09:00 02/10/25 11:42 Bumetanide 1 Mg Tablet PO Not Given BID [facility] Calcium Carbonate 200 mg 02/09/25 22:44 Calcium Carbonate (Tums) 500 Mg (200 Mg Elemental) PO Q6H PRN Indigestion Carvedilol 6.25 mg 02/09/25 23:45 02/10/25 11:43 Carvedilol 6.25 Mg Tablet PO Not Given Q12HR [facility] Chlorthalidone 25 mg 02/10/25 09:00 02/10/25 11:43 Chlorthalidone 25 Mg Tablet PO Not Given DAILY [facility] Dextrose 12.5 gm 02/09/25 22:49 Dextrose 50% 25 Gm/50 Ml Syringe IV PUSH PRN PRN Hypoglycemia Protocol Dicyclomine HCl 20 mg 02/09/25 22:44 02/10/25 10:26 Dicyclomine Hcl Inj 20 Mg/2 Ml Vial IM 20 mg BID PRN Administration Abdominal Cramping Enoxaparin Sodium 40 mg 02/10/25 09:00 02/10/25 11:43 Enoxaparin 40 Mg/0.4 Ml Syringe SUB-Q Not Given DAILY [facility] Ergocalciferol 50,000 units 02/14/25 09:00 Ergocalciferol 50,000 Units Capsule PO WEEKLY [facility] Glucagon 1 mg 02/09/25 22:49 Glucagon For Inj 1 Mg Vial IM PRN PRN Hypoglycemia Protocol Glucose 15 gm 02/09/25 22:49 Glucose Oral Gel 15 Gm Of Glucse In 37.5 Gm Tube PO PRN PRN Hypoglycemia Protocol Hydralazine HCl 50 mg 02/09/25 23:41 Hydralazine Hcl 50 Mg Tablet PO Q8H PRN hypertension Metronidazole 500 mg in 100 mls @ 100 mls/hr 02/10/25 00:00 02/10/25 11:36 Flagyl 500 Mg/Iso Soln 100 Ml IVPB Not Given Q8H [facility] Dextrose 1,000 mls @ 100 mls/hr 02/09/25 22:49 Dextrose 5% 1,000 Ml IVPB PRN PRN Hypoglycemia Protocol Insulin Aspart 3 - 6 units 02/10/25 08:00 02/10/25 14:17 Insulin Aspart (*Bkc) 100 Units/Ml SUB-Q 6 units TIDWM [facility] Administration Protocol Insulin Aspart 1 - 3 units 02/10/25 21:00 Insulin Aspart (*Bkc) 100 Units/Ml SUB-Q HS [facility] Protocol Insulin Glargine 38 units 02/09/25 23:55 02/10/25 10:13 Insulin Glargine (*Bkc) 100 Units/Ml SUB-Q 38 units Q12HR [facility] Administration Melatonin 5 mg 02/09/25 22:44 02/10/25 01:25 Melatonin 5 Mg Tablet PO 5 mg HS PRN Administration Sleep Ondansetron HCl 4 mg 02/09/25 22:44 02/10/25 10:19 Ondansetron Inj 4 Mg/2 Ml Vial IV PUSH 4 mg Q6HR PRN Administration Nausea Perflutren Lipid Microsphere 0 ml 02/10/25 13:35 Perflutren Lipid Microspheres 1.5 Ml Vial Diluted To 10 Ml Total Volume IV PUSH 02/13/25 13:35 ONCE PRN adequate visualization Protocol Prazosin HCl 2 mg 02/09/25 23:55 02/10/25 01:25 Prazosin Hcl 1 Mg Capsule PO 2 mg HS [facility] Administration Sertraline HCl 100 mg 02/10/25 09:00 02/10/25 11:43 Sertraline Hcl 50 Mg Tablet PO Not Given DAILY [facility] Spironolactone 25 mg 02/10/25 09:00 02/10/25 11:43 Spironolactone 25 Mg Tablet PO Not Given DAILY [facility] Sumatriptan Succinate 6 mg 02/09/25 23:41 Sumatriptan Succinate 6 Mg/0.5 Ml Vial SUB-Q ONCE PRN Migraine Headache Topiramate 25 mg 02/09/25 23:55 02/10/25 11:43 Topiramate 25 Mg Tablet PO Not Given Q12HR [facility] Tramadol HCl 50 mg 02/09/25 22:44 Tramadol Hcl (*Crx) 50 Mg Tablet PO Q6H PRN Pain Rated 4-6 Trazodone HCl 50 mg 02/09/25 23:55 02/10/25 01:27 Trazodone Hcl 50 Mg Tablet PO 50 mg HS [facility] Administration Vitamin D 5,000 units 02/10/25 09:00 02/10/25 10:24 Cholecalciferol 5,000 Units Tablet BY MOUTH Not Given DAILY [facility] Zolpidem Tartrate 10 mg 02/09/25 23:41 02/10/25 01:26 Zolpidem Tartrate (*Crx) 5 Mg Tablet PO 10 mg QHS PRN Administration Insomnia Radiology Results: ITS Impressions Chest X-Ray 02/09/25 16:54 IMPRESSION: Subsegmental lingular atelectasis/consolidation. Likely persistent small pericardial effusion. Abdomen/Pelvis CT 02/09/25 20:42 IMPRESSION: Hepatosplenomegaly, unchanged. No acute findings within the abdomen or pelvis, as detailed above. Labs Labs: Laboratory Results - last 24 hr 02/09/25 02/09/25 02/09/25 06:23 16:34 16:58 WBC 10.8 H RBC 4.33 Hgb 12.3 D Hct 38.5 MCV 88.9 MCH 28.4 MCHC 31.9 L RDW 12.9 Plt Count 270 MPV 10.6 H Immature Gran % (Auto) 0.5 Neut % (Auto) 74.9 H Lymph % (Auto) 17.3 L [place] % (Auto) 4.9 Eos % (Auto) 1.8 Baso % (Auto) 0.6 Lymph # (Auto) 1.87 [place] # (Auto) 0.5 Eos # (Auto) 0.2 Baso # (Auto) 0.1 Abs Immat Gran (auto) 0.05 H Absolute Neuts (auto) 8.1 H Absolute Nucleated RBC 0.000 Nucleated RBC % 0.0 Sodium 137 Potassium 3.4 Chloride 102 Carbon Dioxide 25 Anion Gap 10 BUN 36 H Creatinine 2.75 H Estim Creat Clear Calc 30 Estimated GFR 18 L Glucose 259 H POC Capillary Glucose 226 H Hemoglobin A1c Calcium 10.1 Phosphorus 3.2 Magnesium 1.8 Total Bilirubin 0.6 AST 20 ALT 21 Alkaline Phosphatase 111 Total Creatine Kinase 23 L Troponin I 0.021 NT-Pro-B Natriuret Pep 938 H Total Protein 7.0 Albumin 3.9 TSH (Reflex) Urine Color Urine Appearance Urine pH Ur Specific [place] Urine Protein Urine Glucose (UA) Urine Ketones Ur Blood (Man) Urine Nitrate Urine Bilirubin Urine Urobilinogen Add Ur Microanalysis Leukocyte Esterase Rfl Urine RBC Urine WBC Ur Squamous Epith Cells Urine Bacteria Urine Casts Urine Yeast (Budding) Influenza A (RT-PCR) Negative Influenza B (RT-PCR) Negative RSV (RT-PCR) Negative SARS-CoV-2 RNA (RT-PCR) Negative 02/09/25 02/09/25 02/10/25 18:19 23:09 00:10 WBC RBC Hgb Hct MCV MCH MCHC RDW Plt Count MPV Immature Gran % (Auto) Neut % (Auto) Lymph % (Auto) [place] % (Auto) Eos % (Auto) Baso % (Auto) Lymph # (Auto) [place] # (Auto) Eos # (Auto) Baso # (Auto) Abs Immat Gran (auto) Absolute Neuts (auto) Absolute Nucleated RBC Nucleated RBC % Sodium Potassium Chloride Carbon Dioxide Anion Gap BUN Creatinine Estim Creat Clear Calc Estimated GFR Glucose POC Capillary Glucose 218 H Hemoglobin A1c 7.8 H Calcium Phosphorus Magnesium Total Bilirubin AST ALT Alkaline Phosphatase Total Creatine Kinase Troponin I 0.024 NT-Pro-B Natriuret Pep Total Protein Albumin TSH (Reflex) Urine Color Yellow Urine Appearance Cloudy H Urine pH 5.5 Ur Specific [place] 1.021 Urine Protein 4+ H Urine Glucose (UA) 1+ H Urine Ketones Trace H Ur Blood (Man) Negative Urine Nitrate Negative Urine Bilirubin Negative Urine Urobilinogen 0.2 Add Ur Microanalysis Reviewed Leukocyte Esterase Rfl Negative Urine RBC 6-10 H Urine WBC 0-5 Ur Squamous Epith Cells Moderate Urine Bacteria 1+ H Urine Casts >20 Urine Yeast (Budding) Present H Influenza A (RT-PCR) Influenza B (RT-PCR) RSV (RT-PCR) SARS-CoV-2 RNA (RT-PCR) 02/10/25 02/10/25 02/10/25 06:15 08:44 12:11 WBC 9.6 RBC 3.92 L Hgb 11.1 L Hct 36.0 L MCV 91.8 MCH 28.3 MCHC 30.8 L RDW 13.0 Plt Count 226 MPV 10.4 Immature Gran % (Auto) 0.5 Neut % (Auto) 67.8 Lymph % (Auto) 22.8 [place] % (Auto) 6.3 Eos % (Auto) 1.9 Baso % (Auto) 0.7 Lymph # (Auto) 2.20 [place] # (Auto) 0.6 Eos # (Auto) 0.2 Baso # (Auto) 0.1 Abs Immat Gran (auto) 0.05 H Absolute Neuts (auto) 6.5 Absolute Nucleated RBC 0.000 Nucleated RBC % 0.0 Sodium 135 L Potassium 3.7 Chloride 104 Carbon Dioxide 23 Anion Gap 8 BUN 36 H Creatinine 2.79 H Estim Creat Clear Calc 29 Estimated GFR 18 L Glucose 280 H POC Capillary Glucose 240 H 354 H Hemoglobin A1c Calcium 9.9 Phosphorus Magnesium 2.0 Total Bilirubin AST ALT Alkaline Phosphatase Total Creatine Kinase Troponin I NT-Pro-B Natriuret Pep Total Protein Albumin TSH (Reflex) 2.420 Urine Color Urine Appearance Urine pH Ur Specific [place] Urine Protein Urine Glucose (UA) Urine Ketones Ur Blood (Man) Urine Nitrate Urine Bilirubin Urine Urobilinogen Add Ur Microanalysis Leukocyte Esterase Rfl Urine RBC Urine WBC Ur Squamous Epith Cells Urine Bacteria Urine Casts Urine Yeast (Budding) Influenza A (RT-PCR) Influenza B (RT-PCR) RSV (RT-PCR) SARS-CoV-2 RNA (RT-PCR) Quality VTE Prophylaxis VTE prophylaxis: pharmacologic ordered
[2025-02-10 15:28] LABS: Lipase 149 U/L (23-300)
[2025-02-10] MEDS: hydrALAZINE HCL 50 MG TABLET PO (16:56)
[2025-02-10] MEDS: LACTATED RINGERS 1,000 ML 50 ML IV CONT (17:01)
--- NOTE | 2025-02-10 17:01 | WPDGICN ---
Assessment and Plan Assessment and plan (1) Diarrhea: Code(s): R19.7 - Diarrhea, unspecified <GEOVANY Parker - Last Filed: 02/10/25 18:24> Status: Acute <GEOVANY Parker - Last Filed: 02/10/25 18:24> Assessment and Plan: -Diarrhea/Constipation: Last colonoscopy 04/12/2021 was normal. Reports persistent diarrhea for approximately three weeks with frequency of 4-6 times daily, large amounts of watery stool, and associated abdominal pain that improves after bowel movements. Previous stool cultures and c-diff negative. Reports no BM yesterday and had a formed stool this morning. CT scan shows fecal stasis within distal colon and rectum, suggesting possible overflow diarrhea from constipation. Has history of chronic constipation but has not been taking usual constipation medications (stool softeners, fiber gummies, lubiprostone) since recent hospitalizations. Other differentials include Infectious etiology given recent antibiotics use vs EPI. - Stool studies and c-diff orders pending. - Consider repeat colonoscopy if diarrhea persists, this can be done as out patient pending course. - Consider restarting constipation medications once acute symptoms resolve <GEOVANY Parker - Last Filed: 02/10/25 18:24> (2) Cyclical vomiting: Code(s): R11.15 - Cyclical vomiting syndrome unrelated to migraine <GEOVANY Parker - Last Filed: 02/10/25 18:24> Status: Acute <GEOVANY Parker - Last Filed: 02/10/25 18:24> Assessment and Plan: Cyclic vomiting/GERD: EGD in 2020 showed gastric retention but last EGD 08/05/2023 was normal with normal GES 07/2023. Currently experiencing acute episode of nausea and vomiting since 9:00 this morning significant sternal pain from retching, with associated heartburn and indigestion. Currently receiving pantoprazole 40 mg BID, Zofran, and carafate. She is Allergic to metoclopramide. DDX: Cyclic vomiting syndrome VS GERD exacerbation VS Gastroparesis - Continue current anti-emetic therapy - Monitor response to current treatment <GEOVANY Parker - Last Filed: 02/10/25 18:24> (3) GERD without esophagitis: Code(s): K21.9 - Gastro-esophageal reflux disease without esophagitis <GEOVANY Parker - Last Filed: 02/10/25 18:24> Status: Acute <GEOVANY Parker - Last Filed: 02/10/25 18:24> GI Consult Note Consult date/time: 02/10/25 17:01 <GEOVANY Parker - Last Filed: 02/10/25 18:24> Reason for consult: persistent diarrhea <GEOVANY Parker - Last Filed: 02/10/25 18:24> HPI: Jennifer Londono is a 49 year old female past medical surgical history of chronic constipation (on Lubiprostone), GERD, gastroparesis, cyclic vomiting, CKD stage 4, type 2 diabetes mellitus, hypertension, nonalcoholic fatty liver disease, migraines, detached retina, hyperlipidemia, B12 deficiency, anxiety, depression, fibromyalgia, hysterectomy and cholecystectomy. GI was consulted for persistent diarrhea. Jennifer was previously admitted to [facility] approximately 3 weeks ago for c/o of abdominal pain and diarrhea and admitted for LUKE and dehydration, CT scan of the abdomen and pelvis showed no acute findings but did note hepatosplenomegaly and fecal stasis within the colon. previous Stool cultures and C-diff. Subsequently pt was transferred to [facility] for further evaluation and management with complications of kidney failure, chronic diarrhea with fever of unknown origin, and pericardial effusion. Since her discharge, she continues to have issues with her diarrhea and lack of appetite and return to [facility] yesterday. She reports having diarrhea for close to three weeks, with frequency of four to six times per day. She denies having any BM yesterday and reports having a formed stool today. She denies any blood in the stool or nocturnal diarrhea. She reports the diarrhea worsens after eating, stating it'll go right through me. She describes having large amounts of watery stool with associated abdominal pain that improves after bowel movements. She has a history of chronic constipation and typically takes stool softeners, fiber gummies, and lubiprostone, but has not been taking these medications since her recent hospitalizations. She also reports experiencing nausea and vomiting that started at 9:00 this morning, occurring every seven to eight minutes. She describes significant pain in her sternum from retching and reports heartburn and indigestion. She denies any blood in stool, melena or hematemesis. She denies marijuana use. labs on admission revealed mild anemia with hemoglobin 11.1 which is stable. white blood cell count mildly elevated at 10.8 yesterday but has normalized this morning. LFTs are normal with normal lipase 159. ENDOSCOPY HISTORY: EGD: 08/05/2023 (Dr. Stanford) for nausea and vomiting Normal When repeat EGD was recommended COLONOSCOPY: 04/12/2021 (Dr. Stanford) for constipation Normal Recommend repeat in 10 years <GEOVANY Parker - Last Filed: 02/10/25 18:24> Review of Systems Constitutional: Constitutional: Reports anorexia and Reports fatigue <GEOVANY Parker - Last Filed: 02/10/25 18:24> Eyes: Eyes: Denies change in vision <GEOVANY Parker - Last Filed: 02/10/25 18:24> ENT: Denies hoarseness <GEOVANY Parker - Last Filed: 02/10/25 18:24> Cardiovascular: Cardiovascular: Reports chest pain <GEOVANY Parker - Last Filed: 02/10/25 18:24> Respiratory: Respiratory: Denies cough <GEOVANY Parker - Last Filed: 02/10/25 18:24> Gastrointestinal: Gastrointestinal: Reports as per HPI <GEOVANY Parker - Last Filed: 02/10/25 18:24> Genitourinary: Genitourinary: Denies urinary frequency <GEOVANY Parker - Last Filed: 02/10/25 18:24> Musculoskeletal: Musculoskeletal: Denies abnormal gait and Denies myalgias <GEOVANY Parker - Last Filed: 02/10/25 18:24> Integumentary/Breasts: Skin/Breast: Denies rash and Denies jaundice <GEOVANY Parker - Last Filed: 02/10/25 18:24> Neurologic: Denies abnormal gait <GEOVANY Parker - Last Filed: 02/10/25 18:24> Psychiatric: Psychiatric: Denies change in appetite <GEOVANY Parker - Last Filed: 02/10/25 18:24> Endocrine: Endocrine: Denies fatigue <GEOVANY Parker - Last Filed: 02/10/25 18:24> Hematologic/Lymphatic: Hematologic/Lymphatic: Denies easy bruising <GEOVANY Parker - Last Filed: 02/10/25 18:24> Allergic/Immunologic: Allergic/Immunologic: Denies GI upset with certain foods <GEOVANY Parker - Last Filed: 02/10/25 18:24> [facility] [place] Past Medical History Medical History: Medical History (Updated 02/09/25 @ 22:43 by GEOVANY Zuniga) Diabetes mellitus Acute electrocardiogram changes Abnormal chest x-ray Nonalcoholic steatohepatitis Nephrotic syndrome Chronic lumbar pain Morbid obesity due to excess calories Migraine headache without aura 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 Gastroparesis Irritable bowel syndrome with constipation Cyclic vomiting syndrome Insulin dependent diabetes mellitus Hyperlipidemia Hypertension Gastroesophageal reflux disease Vitamin B 12 deficiency Anxiety Depression Hypothyroidism Fibromyalgia Rheumatoid arthritis Endometriosis Herpes Uterine fibroid Peptic ulcer Bronchitis <GEOVANY Parker - Last Filed: 02/10/25 18:24> Surgical History Surgical History: Surgical History History of cholecystectomy History of detached retina repair History of partial knee replacement History of hysterectomy History of laparoscopy Removal of uterine fibroids <GEOVANY Parker - Last Filed: 02/10/25 18:24> Family History Family History: Family History Mother Diabetes mellitus Hypertension Family history of elevated blood lipids Sibling Family history of obesity Patient's sister is in good health Father Hypertension Family history of cardiovascular disease Other Acute myocardial infarction Family history of arthritis Family history of heart disease in male family member before age 55 Family history of thyroid disease <GEOVANY Parker - Last Filed: 02/10/25 18:24> Social History Social History: Social History Social History: Lives alone in [place]. with no children. No alcohol, tobacco, illicit substance abuse. Surrogate decision maker: Susan Mariano, sister. Code status: Full code. Caffeine-daily Smoking status: Never smoker Alcohol intake: never Drinks per week: 1 Alcohol use details: rarely Substance use: never Substance use type: does not use Do You Feel Safe in your Home?: Yes Lack of Transportation: No Lack of Food: Never True Current Housing: I Have Housing Concerned About Future Housing: No Difficulty Paying Gas/Electric Bills: No Difficulty Paying for Meds: No Currently Unemployed: No Education: Associate Degree Difficulty w/ Childcare or Family Care: No Living arrangements: with family Spiritual care concerns: No <GEOVANY Parker - Last Filed: 02/10/25 18:24> Meds Home Medications and Allergies Home medications: Home Medications ?Medication ?Instructions ?Recorded ?Confirmed ?Type docusate sodium 100 mg capsule 100 mg PO DAILY 11/02/19 02/09/25 History (Colace) sertraline 100 mg tablet (Zoloft) 100 mg PO DAILY 11/02/19 02/09/25 History zolpidem 10 mg tablet 10 mg PO QPM PRN Insomnia 11/02/19 02/09/25 History prazosin 2 mg capsule (Minipress) 2 mg PO HS 07/03/20 02/09/25 History coenzyme Q10 100 mg capsule (Co 100 mg PO DAILY 10/03/21 02/09/25 History Q-10) trazodone 50 mg tablet 50 mg PO HS 05/21/22 02/09/25 History Humalog KwikPen Insulin See Protocol subcut TIDWMEAL 03/22/23 02/09/25 History atorvastatin 10 mg tablet 20 mg PO QHS 04/02/23 02/09/25 History ondansetron 4 mg disintegrating 4 mg PO Q8H PRN nausea and 06/03/23 02/09/25 Rx tablet vomiting #10 tabs sumatriptan succinate 6 mg/0.5 mL 6 mg subcut ONCE PRN Migraine 08/01/23 02/09/25 History subcutaneous pen injector Headache alprazolam 0.5 mg tablet 0.5 mg PO TID 09/10/23 02/09/25 History blood-glucose sensor (FreeStyle #1 ea 05/13/24 02/09/25 History Sharita 3 Sensor device) glucagon 3 mg/actuation nasal 3 mg intranasal PRN PRN 05/13/24 02/09/25 History spray (Baqsimi) Hypoglycemia insulin glargine 100 unit/mL (3 38 unit subcut BID 05/13/24 02/09/25 History mL) subcutaneous pen (Lantus Solostar U-100 Insulin) pen needle, diabetic 32 gauge x #1,200 ea 05/13/24 02/09/25 History 32 (BD Mer 2nd Gen Pen Needle) pioglitazone 15 mg tablet 15 mg PO DAILY 05/13/24 02/09/25 History cholecalciferol (vitamin D3) 1,250 1,250 mcg PO WEEKLY 06/02/24 02/09/25 History mcg (50,000 unit) tablet prochlorperazine maleate 10 mg 20 mg PO Q4-6H PRN Nausea 06/02/24 02/09/25 History tablet bumetanide 1 mg tablet 1 mg PO BID #60 tabs 06/25/24 02/09/25 Rx spironolactone 25 mg tablet 25 mg PO DAILY #30 tabs 06/25/24 02/09/25 Rx acyclovir 400 mg tablet 400 mg PO BID #180 tabs 08/20/24 02/09/25 Rx cholecalciferol (vitamin D3) 125 125 mcg PO DAILY 08/20/24 02/09/25 History mcg (5,000 unit) tablet zinc citrate 11 mg chewable tablet 11 mg PO DAILY 08/20/24 02/09/25 History amitriptyline 25 mg tablet 50 mg (2 x 25 mg) PO HS #180 tabs 11/18/24 02/09/25 Rx amlodipine 5 mg tablet See Rx Instructions .Route 01/04/25 02/09/25 Rx .COMPLEX #90 tabs topiramate 25 mg sprinkle capsule 50 mg (2 x 25 mg) PO BID #360 caps 01/12/25 02/09/25 Rx (Topamax) carvedilol 6.25 mg tablet 6.25 mg PO Q12H 02/09/25 02/09/25 History chlorthalidone 25 mg tablet 25 mg PO DAILY 02/09/25 02/09/25 History hydralazine 50 mg tablet 50 mg PO Q8H PRN hypertension 02/09/25 02/09/25 History pantoprazole 40 mg tablet,delayed 40 mg PO DAILY Nausea 02/09/25 02/09/25 History release <GEOVANY Parker - Last Filed: 02/10/25 18:24> Allergies/Adverse reactions: Allergies Allergy/AdvReac Type Severity Reaction Status Date / Time hydralazine Allergy Severe Itching Verified 02/09/25 16:15 latex Allergy Severe itching Verified 02/09/25 16:15 metoclopramide Allergy Severe Redness of Verified 02/09/25 16:15 Skin <GEOVANY Parker - Last Filed: 02/10/25 18:24> Vital Signs Vital Signs - 24 hr 02/09/25 17:02 02/09/25 17:15 02/09/25 17:16 Temperature Pulse Rate 74 76 74 Respiratory Rate 13 13 23 H Blood Pressure 143/87 H Pulse Oximetry 99 95 100 Oxygen Delivery 02/09/25 17:31 02/09/25 18:01 02/09/25 18:30 Temperature 98.1 F Pulse Rate 78 76 75 Respiratory Rate 19 16 10 L Blood Pressure 135/81 145/87 H Pulse Oximetry 99 100 97 Oxygen Delivery 02/09/25 18:45 02/09/25 19:00 02/09/25 19:31 Temperature Pulse Rate 73 71 69 Respiratory Rate 18 24 H 17 Blood Pressure 143/80 H Pulse Oximetry 97 97 98 Oxygen Delivery 02/09/25 19:33 02/09/25 19:46 02/09/25 20:00 Temperature Pulse Rate Respiratory Rate Blood Pressure 151/73 H Pulse Oximetry 98 97 Oxygen Delivery 02/09/25 20:01 02/09/25 20:15 02/09/25 20:16 Temperature Pulse Rate Respiratory Rate Blood Pressure 153/84 H 155/87 H Pulse Oximetry 97 95 98 Oxygen Delivery 02/09/25 21:01 02/09/25 21:16 02/09/25 22:29 Temperature 98.4 F Pulse Rate 72 65 Respiratory Rate 17 Blood Pressure 136/81 153/83 H 150/81 H Pulse Oximetry 98 99 Oxygen Delivery 02/09/25 23:13 02/10/25 00:00 02/10/25 04:00 Temperature 97.9 F Pulse Rate 72 74 89 Respiratory Rate 16 Blood Pressure 169/81 H Pulse Oximetry 97 Oxygen Delivery 02/10/25 05:56 02/10/25 09:00 02/10/25 14:00 Temperature 97.5 F L 97.6 F Pulse Rate 87 83 Respiratory Rate 16 18 Blood Pressure 119/64 223/105 H Pulse Oximetry 93 100 100 Oxygen Delivery Room Air <GEOVANY Parker - Last Filed: 02/10/25 18:24> Exam Const: General: comfortable <GEOVANY Parker - Last Filed: 02/10/25 18:24> HENMT: Face/Nose/Sinus: Normal nares present <GEOVANY Parker - Last Filed: 02/10/25 18:24> Eyes: Sclera: sclerae normal <GEOVANY Parker - Last Filed: 02/10/25 18:24> Resp: Auscultation: clear to auscultation bilaterally <GEOVANY Parker - Last Filed: 02/10/25 18:24> Cardio: Rate: regular rate <GEOVANY Parker - Last Filed: 02/10/25 18:24> Rhythm: regular rhythm <GEOVANY Parker - Last Filed: 02/10/25 18:24> Skin: General skin exam: normal color <GEOVANY Parker - Last Filed: 02/10/25 18:24> Extrem: General: normal to inspection <GEOVANY Parker - Last Filed: 02/10/25 18:24> Psych: Mental Status: mental status grossly normal <GEOVANY Parker - Last Filed: 02/10/25 18:24> Results Labs CBC & Chem 7: 02/10/25 06:15 02/10/25 06:15 <GEOVANY Parker - Last Filed: 02/10/25 18:24> Labs: Short CBC 02/10/25 Range/Units 06:15 WBC 9.6 (4.5-10.0) K/mm3 Hgb 11.1 L (12.0-15.0) g/dL Hct 36.0 L (37.0-47.0) % Plt Count 226 (150-375) k/mm3 BMP 02/09/25 02/10/25 16:58 06:15 Sodium 137 135 L Potassium 3.4 3.7 Chloride 102 104 Carbon Dioxide 25 23 BUN 36 H 36 H Creatinine 2.75 H 2.79 H Glucose 259 H 280 H Calcium 10.1 9.9 Cardiac Enzymes 02/09/25 02/10/25 Range/Units 16:58 00:10 Total Creatine Kinase 23 L (30-135) U/L Troponin I 0.021 0.024 (0.000-0.034) ng/mL Liver Function 02/09/25 Range/Units 16:58 Total Bilirubin 0.6 (0.2-1.3) mg/dL AST 20 (14-36) U/L ALT 21 (6-35) U/L Alkaline Phosphatase 111 (38-126) U/L Albumin 3.9 (3.5-5.1) g/dL Urine 02/09/25 Range/Units 18:19 Urine Color Yellow (Yellow) Urine Appearance Cloudy H (Clear) Urine pH 5.5 (5.0-9.0) Ur Specific [place] 1.021 (1.001-1.035) Urine Protein 4+ H (Negative) mg/dL Urine Glucose (UA) 1+ H (Negative) mg/dL <GEOVANY Parker - Last Filed: 02/10/25 18:24> Attestation Supervising Provider Attestation I, Jermaine Meier MD, have provided a substantive portion of the care of this patient and discussed the patient with my Nurse Practitioner. I have reviewed any new relevant radiographic and laboratory results including medications. I agree with her documentation as noted below.?I personally performed the medical decision making and much of the history and exam for this encounter. briefly, h/o uncontrolled DM, CKD stage 4 and other comorbidities here with nausea and vomiting (diagnosed with cyclic vomiting) on elavil. Also had some diarrhea but states that had formed stool today. Main complaint if persistent nausea. Continue antiemetics and medical support, will follow along. <Jermaine Meier MD - Last Filed: 02/10/25 19:07>
[2025-02-10 17:13] LABS: Glucose Point of Care 380 mg/dl (65-105)
--- NOTE | 2025-02-10 17:27 | ECG_ITS ---
Test Date: 2025-02-10 17:39:52 Measurements Intervals [place] Rate: 107 P: -30 [place]: 268 QRS: -72 QRSD: 144 T: 93 QT: 410 QTc: 547 Interpretive Statements SINUS TACHYCARDIA WITH FIRST DEGREE AV BLOCK LEFT ATRIAL ENLARGEMENT [-0.15mV P-WAVE IN V1/V2] RIGHT BUNDLE BRANCH BLOCK [120+ ms QRS DURATION, UPRIGHT V1, 40+ ms S IN I/aVL/V4/V5/V6] LEFT ANTERIOR FASCICULAR BLOCK [QRS AXIS <= -45, QR IN I, RS IN II] LEFT VENTRICULAR HYPERTROPHY AND ST-T CHANGE [VOLTAGE CRITERIA PLUS ST/T ABNORMALITY] Compared to ECG 02/09/2025 16:34:51 NO SIGNIFICANT CHANGES Electronically Signed On 02-11-2025 10:05:24 CDT by Marsha Herman M.D.
--- NOTE | 2025-02-10 17:49 | PM.EVENT ---
Event Note Event Note Event Note: Nurse called due to possible sustained V.Tach on tele. Patient was examined at bedside. Resting comfortably. Check Mg,Po4. Order Mg 1g x 1. EKG shows Sinus Tachy with 1st degree block. Patient did receive Hydralazine IV x 1 due to BP 223/105. Repeat BP after 20 mins in 170's/90. Will wait for another 30 mins and if needed will do labetalol 10mg IV x 1. Advised nursing team to notify cardiology team.
[2025-02-10 18:02] LABS: Urea Random Urine 196 MG/DL
[2025-02-10 18:03] LABS: Creatinine Urine 24.1 mg/dL
[2025-02-10 18:04] LABS: Sodium Urine Random 131 meq/L
[2025-02-10 18:19] LABS: Total Protein Urine Random 488 mg/dL; Ur Ttl Prot Creatinine Ratio 20.25 mg/mg (0-0.20)
[2025-02-10] MEDS: MAGNESIUM SULF 1 GM/D5W 100 ML 1 GM/100 ML BAG IVPB (18:21)
[2025-02-10 18:39] LABS: Eosinophil Urine None Seen % (None Seen)
[2025-02-10 18:40] LABS: Urine Eos QC 2nd Tech Confirmed
[2025-02-10 19:30] LABS: Magnesium 1.8 mg/dL (1.6-2.3); Phosphorus 1.3 mg/dL (2.5-4.5); Potassium 4.6 mmol/L (3.4-5.0)
[2025-02-10 20:02] LABS: Glucose Point of Care 341 mg/dl (65-105)
[2025-02-10] MEDS: HALOPERIDOL LACTATE 5 MG/ML VIAL IV PUSH (20:43)
[2025-02-10] MEDS: SUCRALFATE 1 GM TABLET PO (21:38)
[2025-02-10] MEDS: PANTOPRAZOLE 40 MG TABLET PO (21:38)
[2025-02-11] VITALS (11 sets, daily range): BP systolic 146–167; BP diastolic 62–77; PULSE 85–101; RESP 16–18; TEMP 36.3–36.7; O2SAT 86–97
--- NOTE | 2025-02-11 | ECHOL_ITS ---
Patient Info Name: Jennifer Londono Age: 49 years : 1975 Gender: Female Ht: 68 in Wt: 250 lbs BSA: 2.38 m2 HR: 100 bpm BP: 146 / 67 mmHg Heart Rhythm: Sinus Rhythm Technical Quality: Fair Exam Date: 02/11/2025 10:32 AM Exam Location: Echo Lab Patient Status: Inpatient Admit Date: 02/09/2025 Staff Ordering Physician: Odilia Rodriguez MD (tamra/sruthi) Program Director [employer] Television: Magnolia Mayo RDCS Attending Provider: Cullen Landeros MD Exam Type: CA echo limited Study Info Indications - Pericardial effusion Complete two-dimensional, color flow and Doppler transthoracic echocardiogram is performed. Summary 1. Technically difficult study with limited views. 2. Left ventricular chamber dimension is normal. 3. Left ventricular systolic function is normal, estimated at >70%. 4. There is severe concentric increased left ventricular wall thickness. 5. The left ventricular diastolic function is grade I diastolic dysfunction. 6. Right ventricular systolic function is normal. 7. There is mild tricuspid valve regurgitation. 8. There is moderate posterior pericardial effusion. Left Ventricle Left ventricular chamber dimension is normal. Left ventricular systolic function is normal, estimated at >70%. There is severe concentric increased left ventricular wall thickness. The left ventricular diastolic function is grade I diastolic dysfunction. Right Ventricle Right ventricular chamber dimension is normal. Right ventricular systolic function is normal. Left Atria Left atrial chamber dimension is not well visualized. Right Atria Right atrial chamber dimension is not well visualized. Atrial Septum Intact interatrial septum visualized by color flow imaging. Aortic Valve The aortic valve is not well visualized. There is no aortic valve regurgitation. Pulmonic Valve The pulmonic valve is not well visualized. There is no pulmonic regurgitation. Mitral Valve There is trace mitral valve regurgitation. The mitral valve annulus is moderately calcified. Tricuspid Valve There is mild tricuspid valve regurgitation. Pericardium/Pleural There is moderate posterior pericardial effusion. Inferior Vena Cava Inferior vena cava is not well visualized. Aorta The aortic root size at the sinus of Valsalva is normal. Left Ventricular Outflow Tract Name Value Normal LVOT 2D LVOT Diameter 2.2 cm Pulmonic Valve Name Value Normal RVOT Doppler RVOT Peak Gradient 4 mmHg PV Doppler PV Peak Gradient 8 mmHg Mitral Valve Name Value Normal MV Doppler MV Decel Hand 662 cm/s2 MV PHT 52 ms MV Area (PHT) 4.3 cm2 4.0-5.0 MV Diastolic Function MV E Peak Velocity 118 cm/s MV A Peak Velocity 2 cm/s MV E/A 69.3 MV Decel Time 178 ms Tricuspid Valve Name Value Normal TV Regurgitation Doppler TR Peak Velocity 229 cm/s TR Peak Gradient 21 mmHg Aortic Valve Name Value Normal AV Regurgitation 2D LVOT Area 3.6 cm2 Ventricles Name Value Normal LV Dimensions 2D/MM IVS Diastolic Thickness (2D) 1.7 cm 0.6-1.0 LVID Diastole (2D) 4.2 cm 3.8-5.2 LVIW Diastolic Thickness (2D) 1.6 cm 0.6-0.9 LVID Systole (2D) 2.8 cm 2.2-3.5 LVOT Diameter 2.2 cm LV Mass (2D Cubed) 286.19 g 67.00-162.00 LV Mass Index (2D Cubed) 120 g/m2 43-95 Relative Wall Thickness (2D) 0.76 LV Fractional Shortening/Ejection Fraction 2D/MM LV Fractional Shortening (2D) 32 % 27-45 LV EF (2D Teicholz) 61 % 54-74 Report Signatures
[2025-02-11] MEDS: metroNIDAZOLE 500 MG/ISO 100ML 500 MG/100 ML BAG 100 MG IVPB ×3 (00:24→17:57)
[2025-02-11 06:26] LABS: Basophils Percent Auto 0.2 % (0.2-1.2); Eosinophils Percent Auto 0.1 % (0-4.4); Hematocrit 38.4 % (37.0-47.0); Hemoglobin 11.6 g/dL (12.0-15.0); Immature Granulocyte Absolute 0.12 K/mm3 (0.00-0.031); Immature Granulocyte Percent A 0.6 % (0-0.5); Lymphocytes Absolute Auto 1.59 K/mm3 (0.9-3.2); Lymphocytes Percent Auto 8.4 % (18.3-44.2); Mean Corpuscular HGB Conc 30.2 g/dl (32-36); Mean Corpuscular Hemoglobin 27.8 pg (26-34); Mean Corpuscular Volume 91.9 fl (80-100); Mean Platelet Volume 10.1 fl (7.4-10.4); Monocytes Percent Auto 5.2 % (2.6-8.5); Neutrophils Absolute Auto 16.2 K/mm3 (1.3-6.7); Neutrophils Percent Auto 85.5 % (45.5-73.1); Platelet Count Result 256 k/mm3 (150-375); Red Blood Count 4.18 M/mm3 (4.2-5.4); Red Cell Distribution Width 13.1 % (11.5-14.5)
[2025-02-11 06:38] LABS: Alanine Aminotransferase 20 U/L (6-35); Alkaline Phosphatase 105 U/L (38-126); Anion Gap 12 mmol/L (4-12); Aspartate Amino Transferase 20 U/L (14-36); Bilirubin,Total 0.3 mg/dL (0.2-1.3); Blood Urea Nitrogen 36 mg/dL (7-17); Calcium 10.7 mg/dL (8.4-10.2); Carbon Dioxide 23 mmol/L (22-30); Chloride 106 mmol/L (98-107); Estimated CRCL calculation 24 ml/min; Estimated Glomerular Filt Rate 14; Glucose 165 mg/dL (65-110); Phosphorus 3.8 mg/dL (2.5-4.5); Sodium 141 mmol/L (137-145)
[2025-02-11 08:26] LABS: Glucose Point of Care 135 mg/dl (65-105)
[2025-02-11] MEDS: ALPRAZolam (*CRX) 0.5 MG TABLET PO ×2 (10:25→14:22)
[2025-02-11] MEDS: PANTOPRAZOLE 40 MG TABLET PO (10:26)
[2025-02-11] MEDS: HALOPERIDOL LACTATE 5 MG/ML VIAL IV PUSH (11:00)
[2025-02-11 11:51] LABS: Glucose Point of Care 184 mg/dl (65-105)
[2025-02-11] MEDS: FLUCONAZOLE 200 MG/NACL 100 ML 200 MG/100 ML BAG 100 MG IVPB (12:10)
[2025-02-11] MEDS: ONDANSETRON INJ 4 MG/2 ML VIAL IV PUSH ×2 (12:21→23:17)
--- NOTE | 2025-02-11 14:38 | P.PNIM_ITS ---
Progress Note: A&P Assessment and Plan (1) Cyclic vomiting syndrome: Code(s): R11.15 - Cyclical vomiting syndrome unrelated to migraine Status: Acute Assessment and Plan: Patient with HX of chronic cyclical N/V syndrome a previous EGD showed gastric retention and gastritis and last emptying scan was within normal limits. She has had HX of DKA secondary to dehydration and cyclical vomiting * GI Consulted appreciate recommendations * Slow IV fluids 50ML/HR monitor of overload * PPI BID * Carafate * Gave Haledol PRN when Zofran not working * take Ativan TID patient normally takes Xanax unable to tolerate oral medications at this time * Bentyl p.r.n. * Continue Flagyl at this time discontinue Levaquin patient on quite a few prolonging QTC agents/QTC * Clear liquid diet can advance as tolerated (2) Abnormal chest x-ray: Code(s): R93.89 - Abnormal findings on diagnostic imaging of other specified body structures Status: Acute Assessment and Plan: No change form previous admission * Abnormal chest x-ray showing lingular consolidation versus atelectasis and likely persistent small pericardial effusion * Continue diuretics of Bumex and spironolactone * Incentive spirometer * Trend labs and vital signs * blood cultures NGTD (3) Diarrhea: Code(s): R19.7 - Diarrhea, unspecified Status: Acute Assessment and Plan: HX IBS and multiple hospital admissions typically with constipation, improving * Consult GI for persistent diarrhea * Collect stool for C diff, O&P and culture, as pt has recently been on abx, there is concern for interval development of C-diff. * D/C Levaquin continue Flagyl * Monitor and trend labs for electrolytes and replace as necessary * Bentyl and Zofran ordered (4) Acute electrocardiogram changes: Code(s): R94.31 - Abnormal electrocardiogram [ECG] [EKG] Status: Acute Assessment and Plan: EKG from 01/28/2025 showing sinus rhythm with PVCs and a LEFT bundle-branch block. New EKG from today, 02/09/2025 showing normal sinus rhythm 74 beats per minute with a new RIGHT BBB and new left anterior fascicular block. Patient endorses chest wall pain secodnary to vomiting. Echocardiogram reviewed from January 05, 2025 demonstrating a normal left ventricular systolic function with EF of 65-70% and grade 1 diastolic dysfunction. Patient does not appear to be hypervolemic. Endorses 20+ lb weight loss over the course of the past month after starting Bumex and spironolactone. Pericardial effusion unchanged on CT * Monitor QTC prolonging agents already severe medications * Trend troponins negative * Cardiology consulted * TTE limited to evaluate paracardial effusion * Telemetry * Outpatient stress * 1 dose Mag given for run of V-tach (5) Chronic kidney disease, stage IV (severe): Code(s): N18.4 - Chronic kidney disease, stage 4 (severe) Status: Chronic Assessment and Plan: Patient appears to be at baseline with creatinine of 2.75 and baseline 2.5-2.1., patient with bump in creatinine to 3.37 likely secondary to dehydration from nausea and vomiting will give slow IV fluids at 50 mL an hour * Avoid renal offending agents as possible * Consult Dr. Grimaldo as he is patient's metal or wood blocker. Appreciate his comanagement. * Trend labs * Daily Weights * Accurate Intake and output * bump to 3.37 Started slow IV fluids 50 mL an hour (6) Diabetes mellitus: Code(s): E11.9 - Type 2 diabetes mellitus without complications Status: Chronic Assessment and Plan: * Adult sliding scale insulin protocol moderate dose * Resume Lantus 38u * Check A1c 7.8 * Hypoglycemic protocol * Glucose checks a.c. and HS * Diabetic diet (7) HTN (hypertension): Qualifiers: Hypertension type: unspecified Qualified Code(s): I10 - Essential (primary) hypertension Code(s): I10 - Essential (primary) hypertension Status: Chronic Assessment and Plan: * Continue carvedilol * Hydralazine PO PRN 50mg TID switch to IV hydralazine patient currently unable to take oral medications * BP per unit protocol (8) Gastroesophageal reflux disease: Code(s): K21.9 - Gastro-esophageal reflux disease without esophagitis Status: Acute Assessment and Plan: * PPI b.i.d. (9) Yeast infection: Code(s): B37.9 - Candidiasis, unspecified Status: Acute Assessment and Plan: UA is showing yeast * IV fluconazole Plan Code status: Full code per patient DVT prophylaxis: Lovenox Stress ulcer prophylaxis: Protonix 40 BID PT/OT notes: Ambulatory Disposition: Patient continues admission for episode cyclic vomiting with abdominal pain continued diarrhea, GI consulted and further recommendations appreciated will continue current treatment plan patient to discharge home when medically stable. Time Spent With Patient Time with patient: 15 - 25 minutes Subjective Date/time seen: 02/11/25 14:38 Interval history: Patient is a 39-year-old female admitted for cyclic vomiting with diarrhea. 02/11/2025: Patient is still nauseated and having dry heaves but denied any further vomiting this a.m. still unable to tolerate any oral intake will continue with IV fluids. Patient with midsternal pain reproducible from throwing up denies any shortness breath, diaphoresis for radiation of pain. Patient did episode of V- tach last night was given 1 mg Mag has been unable to tolerate her p.o. cardiac medications continue with continuous cardiac monitoring. Has been hypertensive but secondary to vomiting patient denied any abdominal pain and diarrhea improving. Review of Systems Review of Systems: All systems reviewed & are unremarkable except as noted in HPI and below Exam Const: General: comfortable, no acute distress and uncomfortable Other: Patient resting but is having midsternal pain from vomiting currently just nauseous no further vomiting HENMT: Ears: TM's normal bilaterally Face/Nose/Sinus: Normal nares present and no epistaxis Mouth: Yes dry mucous membranes Eyes: General: appearance normal, both eyes and all related structures Sclera: sclerae normal Pupils: Equal, round and reactive pupils present EOM: EOMs intact bilaterally Other: Normal 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 Neck: Neck: supple and no JVD Lymphatic: lymphadenopathy not noted Chest: Other: Nontender to palpation Resp: Effort & Inspection: normal respiratory effort Auscultation: rales and diminished lung sounds bilateral in the lower lung camara Cardio: Rate: regular rate Rhythm: regular rhythm Heart sounds: no gallops, Murmur heart sound present and no rubs Other: Sinus rhythm with first-degree block on telemetry GI: Inspection: non-distended Auscultation: normal bowel sounds Skin: General skin exam: normal color, no rashes or lesions noted, no erythema, No lesion and No rashes Lesions: no lesions noted Rashes: no rashes noted Wounds: no wounds Other: Pale Neuro: General: gait normal Cranial nerves: Yes Equal, round and reactive pupils present Speech: normal speech Motor exam (neuro): 5/5 motor strength present throughout and Normal motor muscle tone present throughout Sensory Exam: normal sensation Other: Nonfocal exam Extrem: General: normal to inspection, no edema and no pedal edema Other: Full active range of motion of all extremities without deficit. Psych: Mental Status: mental status grossly normal Affect: normal affect and Anxious affect present Objective Data Vital Signs Vital Signs: Vital Signs - 24 hr 02/10/25 18:07 02/10/25 20:00 02/10/25 21:12 Temperature 98.1 F Pulse Rate 108 H Respiratory Rate 18 Blood Pressure 183/83 H Pulse Oximetry 97 92 Oxygen Delivery Room Air Room Air 02/11/25 00:00 02/11/25 04:00 02/11/25 05:27 Temperature 98.1 F Pulse Rate 101 H 101 H 100 Respiratory Rate 16 Blood Pressure 146/67 H Pulse Oximetry 93 Oxygen Delivery 02/11/25 10:25 Temperature Pulse Rate 98 Respiratory Rate Blood Pressure Pulse Oximetry Oxygen Delivery Intake/Output Intake/Output: Intake & Output 02/08/25 02/09/25 02/10/25 02/11/25 23:59 23:59 23:59 23:59 Intake Total 1000 200 200 Output Total 0 1 Balance 1000 200 199 Meds/Results Medications: Active Medications Generic Name Dose Route Start Last Admin Trade Name Freq PRN Reason Stop Dose Admin Acetaminophen 1,000 mg 02/09/25 22:44 Acetaminophen 500 Mg Tablet PO Q6HR PRN Abdominal Cramping Hydrocodone Bitart/Acetaminophen 1 tab 02/09/25 22:44 02/10/25 16:56 Hydrocodone/Acetaminophen (*Crx) 10-325 Mg Tablet PO 1 tab Q6HR PRN Administration Pain 7-10 Acyclovir 400 mg 02/09/25 23:50 02/11/25 10:24 Acyclovir 400 Mg Tablet PO 400 mg Q12HR [facility] Administration Amitriptyline HCl 50 mg 02/09/25 23:50 02/10/25 21:38 Amitriptyline Hcl 25 Mg Tablet PO 50 mg HS [facility] Administration Amlodipine Besylate 5 mg 02/10/25 09:00 02/11/25 10:25 Amlodipine Besylate 5 Mg Tablet BY MOUTH 5 mg DAILY [facility] Administration Atorvastatin Calcium 20 mg 02/09/25 23:50 02/10/25 21:38 Atorvastatin 10 Mg Tablet PO 20 mg QHS [facility] Administration Bumetanide 1 mg 02/10/25 09:00 02/10/25 11:42 Bumetanide 1 Mg Tablet PO Not Given BID [facility] Calcium Carbonate 200 mg 02/09/25 22:44 Calcium Carbonate (Tums) 500 Mg (200 Mg Elemental) PO Q6H PRN Indigestion Carvedilol 6.25 mg 02/09/25 23:45 02/11/25 10:25 Carvedilol 6.25 Mg Tablet PO 6.25 mg Q12HR [facility] Administration Chlorthalidone 25 mg 02/10/25 09:00 02/10/25 11:43 Chlorthalidone 25 Mg Tablet PO Not Given DAILY [facility] Dextrose 12.5 gm 02/09/25 22:49 Dextrose 50% 25 Gm/50 Ml Syringe IV PUSH PRN PRN Hypoglycemia Protocol Dicyclomine HCl 20 mg 02/09/25 22:44 02/10/25 10:26 Dicyclomine Hcl Inj 20 Mg/2 Ml Vial IM 20 mg BID PRN Administration Abdominal Cramping Enoxaparin Sodium 40 mg 02/10/25 09:00 02/11/25 14:25 Enoxaparin 40 Mg/0.4 Ml Syringe SUB-Q Not Given DAILY [facility] Ergocalciferol 50,000 units 02/14/25 09:00 Ergocalciferol 50,000 Units Capsule PO WEEKLY [facility] Glucagon 1 mg 02/09/25 22:49 Glucagon For Inj 1 Mg Vial IM PRN PRN Hypoglycemia Protocol Glucose 15 gm 02/09/25 22:49 Glucose Oral Gel 15 Gm Of Glucse In 37.5 Gm Tube PO PRN PRN Hypoglycemia Protocol Haloperidol Lactate 5 mg 02/10/25 14:32 02/11/25 11:00 Haloperidol Lactate 5 Mg/Ml Vial IV PUSH 5 mg Q8HR PRN Administration Vomiting Hydralazine HCl 50 mg 02/09/25 23:41 02/10/25 16:56 Hydralazine Hcl 50 Mg Tablet PO 50 mg Q8H PRN Administration hypertension Hydromorphone HCl 1 mg 02/11/25 14:35 Hydromorphone Hcl Inj (*Crx) 2 Mg/Ml Vial IV PUSH Q3H PRN Pain Rated 7-10 Metronidazole 500 mg in 100 mls @ 100 mls/hr 02/10/25 00:00 02/11/25 11:24 Flagyl 500 Mg/Iso Soln 100 Ml IVPB Infused Q8H [facility] Infusion Dextrose 1,000 mls @ 100 mls/hr 02/09/25 22:49 Dextrose 5% 1,000 Ml IVPB PRN PRN Hypoglycemia Protocol Fluconazole 200 mg in 100 mls @ 100 mls/hr 02/11/25 09:00 02/11/25 12:10 Diflucan 200 Mg/Nacl 100 Ml IVPB 100 mls/hr DAILY [facility] Administration Lactated Ringer's 1,000 mls @ 50 mls/hr 02/10/25 14:40 02/10/25 17:01 Lr - Lactated Ringers Iv IV CONT 50 mls/hr .Q20H [facility] Administration Insulin Aspart 3 - 6 units 02/10/25 08:00 02/11/25 12:05 Insulin Aspart (*Bkc) 100 Units/Ml SUB-Q Not Given TIDWM [facility] Protocol Insulin Aspart 1 - 3 units 02/10/25 21:00 02/10/25 20:46 Insulin Aspart (*Bkc) 100 Units/Ml SUB-Q 2 units HS [facility] Administration Protocol Insulin Glargine 38 units 02/09/25 23:55 02/11/25 12:06 Insulin Glargine (*Bkc) 100 Units/Ml SUB-Q Not Given Q12HR [facility] Lorazepam 1 mg 02/11/25 14:34 Lorazepam Inj (*Crx) 2 Mg/Ml Vial IV PUSH Q8HR PRN Anxiety Melatonin 5 mg 02/09/25 22:44 02/10/25 21:38 Melatonin 5 Mg Tablet PO 5 mg HS PRN Administration Sleep Ondansetron HCl 4 mg 02/09/25 22:44 02/11/25 12:21 Ondansetron Inj 4 Mg/2 Ml Vial IV PUSH 4 mg Q6HR PRN Administration Nausea Pantoprazole Sodium 40 mg 02/11/25 21:00 Pantoprazole Sodium Iv 40 Mg Vial IV PUSH Q12HR [facility] Perflutren Lipid Microsphere 0 ml 02/10/25 13:35 Perflutren Lipid Microspheres 1.5 Ml Vial Diluted To 10 Ml Total Volume IV PUSH 02/13/25 13:35 ONCE PRN adequate visualization Protocol Prazosin HCl 2 mg 02/09/25 23:55 02/10/25 21:37 Prazosin Hcl 1 Mg Capsule PO 2 mg HS [facility] Administration Sertraline HCl 100 mg 02/10/25 09:00 02/11/25 10:25 Sertraline Hcl 50 Mg Tablet PO 100 mg DAILY [facility] Administration Spironolactone 25 mg 02/10/25 09:00 02/10/25 11:43 Spironolactone 25 Mg Tablet PO Not Given DAILY [facility] Sucralfate 1 gm 02/10/25 16:30 02/11/25 12:05 Sucralfate 1 Gm Tablet PO Not Given ACHS [facility] Sumatriptan Succinate 6 mg 02/09/25 23:41 Sumatriptan Succinate 6 Mg/0.5 Ml Vial SUB-Q ONCE PRN Migraine Headache Topiramate 25 mg 02/09/25 23:55 02/11/25 10:24 Topiramate 25 Mg Tablet PO 25 mg Q12HR [facility] Administration Tramadol HCl 50 mg 02/09/25 22:44 Tramadol Hcl (*Crx) 50 Mg Tablet PO Q6H PRN Pain Rated 4-6 Trazodone HCl 50 mg 02/09/25 23:55 02/10/25 21:38 Trazodone Hcl 50 Mg Tablet PO 50 mg HS [facility] Administration Vitamin D 5,000 units 02/10/25 09:00 02/11/25 10:24 Cholecalciferol 5,000 Units Tablet BY MOUTH 5,000 units DAILY [facility] Administration Zolpidem Tartrate 10 mg 02/09/25 23:41 02/10/25 21:36 Zolpidem Tartrate (*Crx) 5 Mg Tablet PO 10 mg QHS PRN Administration Insomnia Radiology Results: ITS Impressions Chest X-Ray 02/09/25 16:54 IMPRESSION: Subsegmental lingular atelectasis/consolidation. Likely persistent small pericardial effusion. Abdomen/Pelvis CT 02/09/25 20:42 IMPRESSION: Hepatosplenomegaly, unchanged. No acute findings within the abdomen or pelvis, as detailed above. Labs Labs: Laboratory Results - last 24 hr 02/10/25 02/10/25 02/10/25 14:57 17:06 17:20 WBC RBC Hgb Hct MCV MCH MCHC RDW Plt Count MPV Immature Gran % (Auto) Neut % (Auto) Lymph % (Auto) Citrus % (Auto) Eos % (Auto) Baso % (Auto) Lymph # (Auto) [place] # (Auto) Eos # (Auto) Baso # (Auto) Abs Immat Gran (auto) Absolute Neuts (auto) Absolute Nucleated RBC Nucleated RBC % Sodium Potassium 4.6 Chloride Carbon Dioxide Anion Gap BUN Creatinine Estim Creat Clear Calc Estimated GFR Glucose POC Capillary Glucose 380 H Calcium Phosphorus 1.3 L Magnesium 1.8 Total Bilirubin AST ALT Alkaline Phosphatase Total Protein Albumin Lipase 149 Urine Eosinophils None seen U Random Total Protein Ur Random Sodium Ur Random Urea Urine Creatinine Protein/Creat Ratio 2 C. difficile (PCR) 02/10/25 02/10/25 02/11/25 17:21 19:58 06:20 WBC 19.0 H RBC 4.18 L Hgb 11.6 L Hct 38.4 MCV 91.9 MCH 27.8 MCHC 30.2 L RDW 13.1 Plt Count 256 MPV 10.1 Immature Gran % (Auto) 0.6 H Neut % (Auto) 85.5 H Lymph % (Auto) 8.4 L [place] % (Auto) 5.2 Eos % (Auto) 0.1 Baso % (Auto) 0.2 Lymph # (Auto) 1.59 [place]rus # (Auto) 1.0 H Eos # (Auto) 0.0 Baso # (Auto) 0.0 Abs Immat Gran (auto) 0.12 H Absolute Neuts (auto) 16.2 H Absolute Nucleated RBC 0.000 Nucleated RBC % 0.0 Sodium 141 Potassium 4.0 Chloride 106 Carbon Dioxide 23 Anion Gap 12 BUN 36 H Creatinine 3.37 H Estim Creat Clear Calc 24 Estimated GFR 14 L Glucose 165 H POC Capillary Glucose 341 H Calcium 10.7 H Phosphorus 3.8 Magnesium Total Bilirubin 0.3 AST 20 ALT 20 Alkaline Phosphatase 105 Total Protein 7.0 Albumin 4.0 Lipase Urine Eosinophils U Random Total Protein 488 Ur Random Sodium 131 Ur Random Urea 196 Urine Creatinine 24.1 Protein/Creat Ratio 2 20.25 H C. difficile (PCR) Cancelled 02/11/25 02/11/25 08:12 11:36 WBC RBC Hgb Hct MCV MCH MCHC RDW Plt Count MPV Immature Gran % (Auto) Neut % (Auto) Lymph % (Auto) [place]rus % (Auto) Eos % (Auto) Baso % (Auto) Lymph # (Auto) [place] # (Auto) Eos # (Auto) Baso # (Auto) Abs Immat Gran (auto) Absolute Neuts (auto) Absolute Nucleated RBC Nucleated RBC % Sodium Potassium Chloride Carbon Dioxide Anion Gap BUN Creatinine Estim Creat Clear Calc Estimated GFR Glucose POC Capillary Glucose 135 H 184 H Calcium Phosphorus Magnesium Total Bilirubin AST ALT Alkaline Phosphatase Total Protein Albumin Lipase Urine Eosinophils U Random Total Protein Ur Random Sodium Ur Random Urea Urine Creatinine Protein/Creat Ratio 2 C. difficile (PCR) Quality VTE Prophylaxis VTE prophylaxis: pharmacologic ordered -Patient's previous records reviewed on admission -ER notes reviewed in detail on admission -discussed all findings and current treatment plan with patient/Family/POA -Consultations reviewed for recommendations -Patient's disposition for safe discharge discussed with community case manager Dictation performed by [employer] direct speech recognition software, therefore welcome wagon host/hostess variants and typographical errors may occur. Hospitalist MIPS Advance Care Plan I have confirmed that the patient's Advanced Care Plan is present, code status is documented, or surrogate decision maker is listed in patient medical record.: Yes Medication Reconciliation I have utilized all available resources to obtain, update and review the patients current medications (includes all prescriptions, OTC, herbals, cannabis, and nutritional supplements).: Yes The patient is not eligible for med reconciliation; the patient is in a emergent medical situation where delaying treatment would jeopardize the patients health.: No
[2025-02-11] MEDS: HYDROmorphone HCL INJ (*CRX) 2 MG/ML VIAL 1 MG IV PUSH (15:35)
--- NOTE | 2025-02-11 16:12 | P.PNNP_ITS ---
Progress Note: A&P Assessment and Plan (1) Acute kidney injury: Code(s): N17.9 - Acute kidney failure, unspecified Status: Acute Assessment and Plan: * as noted on admission (with a creatinine of 2.75mg/dl) * on discharge from [facility] last month, discharge creatinie was 1.9mg/dl * suspect due to prerenal factors (poor oral intake + nausea _ diarrhea) along with use of diuretics prior to admission * evaluation to date noted: * CT of A/P without obstruction * CPK normal * UA not indicative of infection (although yeast noted) * urine electrolytes non-prerenal * urine eosinophils negative * nephrotic range proteinuria noted * holding diuretic therapy for now * agree with gentle IVF hydration * follow volume status closely (2) Chronic kidney disease, stage IV (severe): Code(s): N18.4 - Chronic kidney disease, stage 4 (severe) Status: Chronic Assessment and Plan: * baseline creatinine runs ~ 2.0 - 2.5mg/dl in the last year * outpatient evaluation significant for normal renal ultrasound, negative serological profile, and nephrotic range proteinuria * CKD thought to be due to her previous bouts of LUKE/ARF along with diabetes, hypertension, and necessity of chronic diuretic therapy * diuretics are needed to keep swelling/edema (which is secondary to nephrotic range proteinuria/nephrotic syndrome) stable/controlled (3) Hypercalcemia: Code(s): E83.52 - Hypercalcemia Status: Acute Assessment and Plan: * as noted by labs * suspect related to poor oral intake and relative volume depletion * follow trend (4) Cyclic vomiting syndrome: Code(s): R11.15 - Cyclical vomiting syndrome unrelated to migraine Status: Acute Assessment and Plan: * known history with previous admission for this issue * GI following with recommendations noted * previous EGD showed gastric retention and gastritis * last emptying scan was within normal limits * on gentle IVFs given poor oral intake * continue PPI and carafate * empiric metronidazole * antiemetics, haldol, bentyl, and ativan PRNN * advance det as tolerated (5) Diarrhea: Code(s): R19.7 - Diarrhea, unspecified Status: Acute Assessment and Plan: * noted by history * complicated by know history of irritable bowel syndrome * follow-up on stool studies * GI following as well (6) Anemia: Code(s): D64.9 - Anemia, unspecified Status: Acute Assessment and Plan: * probably due to LUKE, CKD, and acute illness * no need for CHOCO/Epogen at this time * follow trend of H/H (7) Hypertension: Code(s): I10 - Essential (primary) hypertension Status: Acute Assessment and Plan: * reasonable control * however, fluctuations noted due to inability to take oral medications * use PRN IV medications as needed * follow trend of hemodynamics (8) Insulin dependent diabetes mellitus: Status: Chronic Assessment and Plan: * follow accu-cheks * glycemic control per hospitalist Will continue to follow. L Subjective Date/time seen: 02/11/25 13:42 Interval history: Follow-up for acute kidney injury/acute renal failure on chronic kidney disease. Seen earlier today and later this afternoon -- still with ongoin nausea, vomiting and diarrhea in association with abdominal pain; issues with tachycardia noted yesterday afternoon in association with hypertension as well; noted rising calcium and worsening creatinine/renla function by AM labs. Exam 2 Narrative: General: WD/WN female in mild distress Heart: normal S1 and S2; no rub Lungs: clear anteriorly Abdomen: soft, nontender, nondistended, positive bowel sounds Extremities: no cyanosis or clubbing; no edema Skin: warm an dry Objective Data Vital Signs Vital Signs: Vital Signs Temp Pulse Resp BP Pulse Ox O2 Del Method O2 Flow Rate 02/11/25 13:00 97.4 F L 97 18 167/77 H 95 02/11/25 11:40 98 02/11/25 10:30 Room Air 02/11/25 08:00 98 02/11/25 05:27 98.1 F 100 16 146/67 H 93 02/11/25 04:00 101 H 02/11/25 00:00 101 H 02/10/25 21:12 98.1 F 108 H 18 183/83 H 92 02/10/25 20:00 Room Air 02/10/25 18:07 97 Room Air Intake/Output Intake/Output: Intake & Output 02/08/25 02/09/25 02/10/25 02/11/25 23:59 23:59 23:59 23:59 Intake Total 4978 841 2199 Output Total 0 1 Balance 2831 317 3817 Meds/Results Medications: Active Medications Generic Name Dose Route Start Last Admin Trade Name Freq PRN Reason Stop Dose Admin Acetaminophen 1,000 mg 02/09/25 22:44 Acetaminophen 500 Mg Tablet PO Q6HR PRN Abdominal Cramping Hydrocodone Bitart/Acetaminophen 1 tab 02/09/25 22:44 02/10/25 16:56 Hydrocodone/Acetaminophen (*Crx) 10-325 Mg Tablet PO 1 tab Q6HR PRN Administration Pain 7-10 Acyclovir 400 mg 02/09/25 23:50 02/11/25 14:45 Acyclovir 400 Mg Tablet PO Not Given Q12HR [facility] Amitriptyline HCl 50 mg 02/09/25 23:50 02/10/25 21:38 Amitriptyline Hcl 25 Mg Tablet PO 50 mg HS [facility] Administration Amlodipine Besylate 5 mg 02/10/25 09:00 02/11/25 14:47 Amlodipine Besylate 5 Mg Tablet BY MOUTH Not Given DAILY [facility] Atorvastatin Calcium 20 mg 02/09/25 23:50 02/10/25 21:38 Atorvastatin 10 Mg Tablet PO 20 mg QHS [facility] Administration Bumetanide 1 mg 02/10/25 09:00 02/10/25 11:42 Bumetanide 1 Mg Tablet PO Not Given BID [facility] Calcium Carbonate 200 mg 02/09/25 22:44 Calcium Carbonate (Tums) 500 Mg (200 Mg Elemental) PO Q6H PRN Indigestion Carvedilol 6.25 mg 02/09/25 23:45 02/11/25 14:46 Carvedilol 6.25 Mg Tablet PO Not Given Q12HR [facility] Chlorthalidone 25 mg 02/10/25 09:00 02/10/25 11:43 Chlorthalidone 25 Mg Tablet PO Not Given DAILY [facility] Dextrose 12.5 gm 02/09/25 22:49 Dextrose 50% 25 Gm/50 Ml Syringe IV PUSH PRN PRN Hypoglycemia Protocol Dicyclomine HCl 20 mg 02/09/25 22:44 02/10/25 10:26 Dicyclomine Hcl Inj 20 Mg/2 Ml Vial IM 20 mg BID PRN Administration Abdominal Cramping Enoxaparin Sodium 40 mg 02/10/25 09:00 02/11/25 14:25 Enoxaparin 40 Mg/0.4 Ml Syringe SUB-Q Not Given DAILY [facility] Ergocalciferol 50,000 units 02/14/25 09:00 Ergocalciferol 50,000 Units Capsule PO WEEKLY [facility] Glucagon 1 mg 02/09/25 22:49 Glucagon For Inj 1 Mg Vial IM PRN PRN Hypoglycemia Protocol Glucose 15 gm 02/09/25 22:49 Glucose Oral Gel 15 Gm Of Glucse In 37.5 Gm Tube PO PRN PRN Hypoglycemia Protocol Hydralazine HCl 50 mg 02/09/25 23:41 02/10/25 16:56 Hydralazine Hcl 50 Mg Tablet PO 50 mg Q8H PRN Administration hypertension Hydralazine HCl 20 mg 02/11/25 14:45 Hydralazine Hcl 20 Mg/Ml Vial IV PUSH Q6HR PRN hypertension Metronidazole 500 mg in 100 mls @ 100 mls/hr 02/10/25 00:00 02/11/25 17:57 Flagyl 500 Mg/Iso Soln 100 Ml IVPB 100 mls/hr Q8H [facility] Administration Dextrose 1,000 mls @ 100 mls/hr 02/09/25 22:49 Dextrose 5% 1,000 Ml IVPB PRN PRN Hypoglycemia Protocol Fluconazole 200 mg in 100 mls @ 100 mls/hr 02/11/25 09:00 02/11/25 13:10 Diflucan 200 Mg/Nacl 100 Ml IVPB Infused DAILY [facility] Infusion Lactated Ringer's 1,000 mls @ 50 mls/hr 02/10/25 14:40 02/11/25 18:02 Lr - Lactated Ringers Iv IV CONT 50 mls/hr .Q20H [facility] Administration Insulin Aspart 3 - 6 units 02/10/25 08:00 02/11/25 17:58 Insulin Aspart (*Bkc) 100 Units/Ml SUB-Q 4 units TIDWM [facility] Administration Protocol Insulin Aspart 1 - 3 units 02/10/25 21:00 02/10/25 20:46 Insulin Aspart (*Bkc) 100 Units/Ml SUB-Q 2 units HS [facility] Administration Protocol Insulin Glargine 38 units 02/09/25 23:55 02/11/25 12:06 Insulin Glargine (*Bkc) 100 Units/Ml SUB-Q Not Given Q12HR [facility] Lorazepam 1 mg 02/11/25 14:34 Lorazepam Inj (*Crx) 2 Mg/Ml Vial IV PUSH Q8HR PRN Anxiety Melatonin 5 mg 02/09/25 22:44 02/10/25 21:38 Melatonin 5 Mg Tablet PO 5 mg HS PRN Administration Sleep Naloxone HCl 0.1 mg 02/11/25 16:20 Naloxone Hcl 0.4 Mg/Ml Vial IV PUSH Q5MIN PRN Opioid Reversal Ondansetron HCl 4 mg 02/09/25 22:44 02/11/25 12:21 Ondansetron Inj 4 Mg/2 Ml Vial IV PUSH 4 mg Q6HR PRN Administration Nausea Pantoprazole Sodium 40 mg 02/11/25 21:00 Pantoprazole Sodium Iv 40 Mg Vial IV PUSH Q12HR [facility] Perflutren Lipid Microsphere 0 ml 02/10/25 13:35 Perflutren Lipid Microspheres 1.5 Ml Vial Diluted To 10 Ml Total Volume IV PUSH 02/13/25 13:35 ONCE PRN adequate visualization Protocol Perflutren Lipid Microsphere 0 ml 02/11/25 15:30 Perflutren Lipid Microspheres 1.5 Ml Vial Diluted To 10 Ml Total Volume IV PUSH 02/14/25 15:31 ONCE PRN adequate visualization Protocol Prazosin HCl 2 mg 02/09/25 23:55 02/10/25 21:37 Prazosin Hcl 1 Mg Capsule PO 2 mg HS [facility] Administration Sertraline HCl 100 mg 02/10/25 09:00 02/11/25 14:48 Sertraline Hcl 50 Mg Tablet PO Not Given DAILY [facility] Spironolactone 25 mg 02/10/25 09:00 02/10/25 11:43 Spironolactone 25 Mg Tablet PO Not Given DAILY [facility] Sucralfate 1 gm 02/10/25 16:30 02/11/25 17:16 Sucralfate 1 Gm Tablet PO Not Given ACHS [facility] Sumatriptan Succinate 6 mg 02/09/25 23:41 Sumatriptan Succinate 6 Mg/0.5 Ml Vial SUB-Q ONCE PRN Migraine Headache Topiramate 25 mg 02/09/25 23:55 02/11/25 14:47 Topiramate 25 Mg Tablet PO Not Given Q12HR [facility] Tramadol HCl 50 mg 02/09/25 22:44 Tramadol Hcl (*Crx) 50 Mg Tablet PO Q6H PRN Pain Rated 4-6 Trazodone HCl 50 mg 02/09/25 23:55 02/10/25 21:38 Trazodone Hcl 50 Mg Tablet PO 50 mg HS [facility] Administration Vitamin D 5,000 units 02/10/25 09:00 02/11/25 14:47 Cholecalciferol 5,000 Units Tablet BY MOUTH Not Given DAILY [facility] Zolpidem Tartrate 10 mg 02/09/25 23:41 02/10/25 21:36 Zolpidem Tartrate (*Crx) 5 Mg Tablet PO 10 mg QHS PRN Administration Insomnia Radiology Results: ITS Impressions Chest X-Ray 02/09/25 16:54 IMPRESSION: Subsegmental lingular atelectasis/consolidation. Likely persistent small pericardial effusion. Abdomen/Pelvis CT 02/09/25 20:42 IMPRESSION: Hepatosplenomegaly, unchanged. No acute findings within the abdomen or pelvis, as detailed above. Labs Labs: Laboratory Tests 02/11/25 06:20 02/11/25 06:20 Calcium 10.7 H Phosphorus 3.8 Total Bilirubin 0.3 AST 20 ALT 20 Alkaline Phosphatase 105 Total Protein 7.0 Albumin 4.0 Microbiology 02/10/25 00:10 Blood Blood Culture - Preliminary 02/10/25 00:10 Blood Blood Culture - Preliminary
[2025-02-11 17:05] LABS: Glucose Point of Care 284 mg/dl (65-105)
--- NOTE | 2025-02-11 17:33 | P.PNGI_ITS ---
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 (5) Legal blindness of right eye, as defined in [place]: Code(s): H54.8 - Legal blindness, as defined in [place] Status: Acute (6) Fatty liver: Code(s): K76.0 - Fatty (change of) liver, not elsewhere classified Status: Acute Subjective Date/time seen: 02/11/25 17:33 Interval history: nausea is main complaint, no major changes Review of Systems Review of Systems: All systems reviewed & are unremarkable except as noted in HPI and below Exam Const: General: comfortable, no acute distress and uncomfortable HENMT: Face/Nose/Sinus: Normal nares present Eyes: Sclera: sclerae normal Neck: Neck: supple Resp: Effort & Inspection: normal respiratory effort Auscultation: diminished lung sounds bilateral in the lower lung camara Cardio: Rate: regular rate Rhythm: regular rhythm GI: Inspection: non-distended GI Palp: No Tenderness to palpation present (GI) Auscultation: normal bowel sounds Skin: General skin exam: normal color and no rashes or lesions noted Neuro: General: gait normal Cranial nerves: Yes Equal, round and reactive pupils present Motor exam (neuro): 5/5 motor strength present throughout and Normal motor muscle tone present throughout Sensory Exam: normal sensation Other: Nonfocal exam Extrem: General: normal to inspection, no edema and no pedal edema Psych: Mental Status: mental status grossly normal Affect: Anxious affect present Objective Data Vital Signs Vital Signs: Vital Signs - 24 hr 02/10/25 18:07 02/10/25 20:00 02/10/25 21:12 Temperature 98.1 F Pulse Rate 108 H Respiratory Rate 18 Blood Pressure 183/83 H Pulse Oximetry 97 92 Oxygen Delivery Room Air Room Air Oxygen Flow Rate 02/11/25 00:00 02/11/25 04:00 02/11/25 05:27 Temperature 98.1 F Pulse Rate 101 H 101 H 100 Respiratory Rate 16 Blood Pressure 146/67 H Pulse Oximetry 93 Oxygen Delivery Oxygen Flow Rate 02/11/25 08:00 02/11/25 10:30 02/11/25 12:00 Temperature Pulse Rate 98 98 Respiratory Rate Blood Pressure Pulse Oximetry Oxygen Delivery Room Air Oxygen Flow Rate 02/11/25 14:00 02/11/25 15:42 02/11/25 15:45 Temperature 97.4 F L Pulse Rate 97 Respiratory Rate 18 Blood Pressure 167/77 H Pulse Oximetry 95 86 L 94 Oxygen Delivery Room Air Nasal Cannula Oxygen Flow Rate 2 02/11/25 16:00 Temperature Pulse Rate 97 Respiratory Rate Blood Pressure Pulse Oximetry Oxygen Delivery Oxygen Flow Rate Intake/Output Intake/Output: Intake & Output 02/08/25 02/09/25 02/10/25 02/11/25 23:59 23:59 23:59 23:59 Intake Total 1000 200 620 Output Total 0 1 Balance 1000 200 619 Meds/Results Medications: Active Medications Generic Name Dose Route Start Last Admin Trade Name Freq PRN Reason Stop Dose Admin Acetaminophen 1,000 mg 02/09/25 22:44 Acetaminophen 500 Mg Tablet PO Q6HR PRN Abdominal Cramping Hydrocodone Bitart/Acetaminophen 1 tab 02/09/25 22:44 02/10/25 16:56 Hydrocodone/Acetaminophen (*Crx) 10-325 Mg Tablet PO 1 tab Q6HR PRN Administration Pain 7-10 Acyclovir 400 mg 02/09/25 23:50 02/11/25 14:45 Acyclovir 400 Mg Tablet PO Not Given Q12HR [facility] Amitriptyline HCl 50 mg 02/09/25 23:50 02/10/25 21:38 Amitriptyline Hcl 25 Mg Tablet PO 50 mg HS [facility] Administration Amlodipine Besylate 5 mg 02/10/25 09:00 02/11/25 14:47 Amlodipine Besylate 5 Mg Tablet BY MOUTH Not Given DAILY [facility] Atorvastatin Calcium 20 mg 02/09/25 23:50 02/10/25 21:38 Atorvastatin 10 Mg Tablet PO 20 mg QHS [facility] Administration Bumetanide 1 mg 02/10/25 09:00 02/10/25 11:42 Bumetanide 1 Mg Tablet PO Not Given BID [facility] Calcium Carbonate 200 mg 02/09/25 22:44 Calcium Carbonate (Tums) 500 Mg (200 Mg Elemental) PO Q6H PRN Indigestion Carvedilol 6.25 mg 02/09/25 23:45 02/11/25 14:46 Carvedilol 6.25 Mg Tablet PO Not Given Q12HR [facility] Chlorthalidone 25 mg 02/10/25 09:00 02/10/25 11:43 Chlorthalidone 25 Mg Tablet PO Not Given DAILY [facility] Dextrose 12.5 gm 02/09/25 22:49 Dextrose 50% 25 Gm/50 Ml Syringe IV PUSH PRN PRN Hypoglycemia Protocol Dicyclomine HCl 20 mg 02/09/25 22:44 02/10/25 10:26 Dicyclomine Hcl Inj 20 Mg/2 Ml Vial IM 20 mg BID PRN Administration Abdominal Cramping Enoxaparin Sodium 40 mg 02/10/25 09:00 02/11/25 14:25 Enoxaparin 40 Mg/0.4 Ml Syringe SUB-Q Not Given DAILY [facility] Ergocalciferol 50,000 units 02/14/25 09:00 Ergocalciferol 50,000 Units Capsule PO WEEKLY [facility] Glucagon 1 mg 02/09/25 22:49 Glucagon For Inj 1 Mg Vial IM PRN PRN Hypoglycemia Protocol Glucose 15 gm 02/09/25 22:49 Glucose Oral Gel 15 Gm Of Glucse In 37.5 Gm Tube PO PRN PRN Hypoglycemia Protocol Hydralazine HCl 50 mg 02/09/25 23:41 02/10/25 16:56 Hydralazine Hcl 50 Mg Tablet PO 50 mg Q8H PRN Administration hypertension Hydralazine HCl 20 mg 02/11/25 14:45 Hydralazine Hcl 20 Mg/Ml Vial IV PUSH Q6HR PRN hypertension Metronidazole 500 mg in 100 mls @ 100 mls/hr 02/10/25 00:00 02/11/25 11:24 Flagyl 500 Mg/Iso Soln 100 Ml IVPB Infused Q8H [facility] Infusion Dextrose 1,000 mls @ 100 mls/hr 02/09/25 22:49 Dextrose 5% 1,000 Ml IVPB PRN PRN Hypoglycemia Protocol Fluconazole 200 mg in 100 mls @ 100 mls/hr 02/11/25 09:00 02/11/25 12:10 Diflucan 200 Mg/Nacl 100 Ml IVPB 100 mls/hr DAILY [facility] Administration Lactated Ringer's 1,000 mls @ 50 mls/hr 02/10/25 14:40 02/11/25 14:49 Lr - Lactated Ringers Iv IV CONT Not Given .Q20H [facility] Insulin Aspart 3 - 6 units 02/10/25 08:00 02/11/25 12:05 Insulin Aspart (*Bkc) 100 Units/Ml SUB-Q Not Given TIDWM [facility] Protocol Insulin Aspart 1 - 3 units 02/10/25 21:00 02/10/25 20:46 Insulin Aspart (*Bkc) 100 Units/Ml SUB-Q 2 units HS [facility] Administration Protocol Insulin Glargine 38 units 02/09/25 23:55 02/11/25 12:06 Insulin Glargine (*Bkc) 100 Units/Ml SUB-Q Not Given Q12HR [facility] Lorazepam 1 mg 02/11/25 14:34 Lorazepam Inj (*Crx) 2 Mg/Ml Vial IV PUSH Q8HR PRN Anxiety Melatonin 5 mg 02/09/25 22:44 02/10/25 21:38 Melatonin 5 Mg Tablet PO 5 mg HS PRN Administration Sleep Naloxone HCl 0.1 mg 02/11/25 16:20 Naloxone Hcl 0.4 Mg/Ml Vial IV PUSH Q5MIN PRN Opioid Reversal Ondansetron HCl 4 mg 02/09/25 22:44 02/11/25 12:21 Ondansetron Inj 4 Mg/2 Ml Vial IV PUSH 4 mg Q6HR PRN Administration Nausea Pantoprazole Sodium 40 mg 02/11/25 21:00 Pantoprazole Sodium Iv 40 Mg Vial IV PUSH Q12HR [facility] Perflutren Lipid Microsphere 0 ml 02/10/25 13:35 Perflutren Lipid Microspheres 1.5 Ml Vial Diluted To 10 Ml Total Volume IV PUSH 02/13/25 13:35 ONCE PRN adequate visualization Protocol Perflutren Lipid Microsphere 0 ml 02/11/25 15:30 Perflutren Lipid Microspheres 1.5 Ml Vial Diluted To 10 Ml Total Volume IV PUSH 02/14/25 15:31 ONCE PRN adequate visualization Protocol Prazosin HCl 2 mg 02/09/25 23:55 02/10/25 21:37 Prazosin Hcl 1 Mg Capsule PO 2 mg HS [facility] Administration Sertraline HCl 100 mg 02/10/25 09:00 02/11/25 14:48 Sertraline Hcl 50 Mg Tablet PO Not Given DAILY [facility] Spironolactone 25 mg 02/10/25 09:00 02/10/25 11:43 Spironolactone 25 Mg Tablet PO Not Given DAILY [facility] Sucralfate 1 gm 02/10/25 16:30 02/11/25 17:16 Sucralfate 1 Gm Tablet PO Not Given ACHS [facility] Sumatriptan Succinate 6 mg 02/09/25 23:41 Sumatriptan Succinate 6 Mg/0.5 Ml Vial SUB-Q ONCE PRN Migraine Headache Topiramate 25 mg 02/09/25 23:55 02/11/25 14:47 Topiramate 25 Mg Tablet PO Not Given Q12HR [facility] Tramadol HCl 50 mg 02/09/25 22:44 Tramadol Hcl (*Crx) 50 Mg Tablet PO Q6H PRN Pain Rated 4-6 Trazodone HCl 50 mg 02/09/25 23:55 02/10/25 21:38 Trazodone Hcl 50 Mg Tablet PO 50 mg HS [facility] Administration Vitamin D 5,000 units 02/10/25 09:00 02/11/25 14:47 Cholecalciferol 5,000 Units Tablet BY MOUTH Not Given DAILY [facility] Zolpidem Tartrate 10 mg 02/09/25 23:41 02/10/25 21:36 Zolpidem Tartrate (*Crx) 5 Mg Tablet PO 10 mg QHS PRN Administration Insomnia Radiology Results: ITS Impressions Chest X-Ray 02/09/25 16:54 IMPRESSION: Subsegmental lingular atelectasis/consolidation. Likely persistent small pericardial effusion. Abdomen/Pelvis CT 02/09/25 20:42 IMPRESSION: Hepatosplenomegaly, unchanged. No acute findings within the abdomen or pelvis, as detailed above. Labs Labs: Laboratory Results - last 24 hr 02/10/25 02/10/25 02/10/25 14:57 17:20 17:21 WBC RBC Hgb Hct MCV MCH MCHC RDW Plt Count MPV Immature Gran % (Auto) Neut % (Auto) Lymph % (Auto) [place] % (Auto) Eos % (Auto) Baso % (Auto) Lymph # (Auto) [place] # (Auto) Eos # (Auto) Baso # (Auto) Abs Immat Gran (auto) Absolute Neuts (auto) Absolute Nucleated RBC Nucleated RBC % Sodium Potassium 4.6 Chloride Carbon Dioxide Anion Gap BUN Creatinine Estim Creat Clear Calc Estimated GFR Glucose POC Capillary Glucose Calcium Phosphorus 1.3 L Magnesium 1.8 Total Bilirubin AST ALT Alkaline Phosphatase Total Protein Albumin Urine Eosinophils None seen U Random Total Protein 488 Ur Random Sodium 131 Ur Random Urea 196 Urine Creatinine 24.1 Protein/Creat Ratio 2 20.25 H C. difficile (PCR) Cancelled 02/10/25 02/11/25 02/11/25 19:58 06:20 08:12 WBC 19.0 H RBC 4.18 L Hgb 11.6 L Hct 38.4 MCV 91.9 MCH 27.8 MCHC 30.2 L RDW 13.1 Plt Count 256 MPV 10.1 Immature Gran % (Auto) 0.6 H Neut % (Auto) 85.5 H Lymph % (Auto) 8.4 L [place] % (Auto) 5.2 Eos % (Auto) 0.1 Baso % (Auto) 0.2 Lymph # (Auto) 1.59 [place] # (Auto) 1.0 H Eos # (Auto) 0.0 Baso # (Auto) 0.0 Abs Immat Gran (auto) 0.12 H Absolute Neuts (auto) 16.2 H Absolute Nucleated RBC 0.000 Nucleated RBC % 0.0 Sodium 141 Potassium 4.0 Chloride 106 Carbon Dioxide 23 Anion Gap 12 BUN 36 H Creatinine 3.37 H Estim Creat Clear Calc 24 Estimated GFR 14 L Glucose 165 H POC Capillary Glucose 341 H 135 H Calcium 10.7 H Phosphorus 3.8 Magnesium Total Bilirubin 0.3 AST 20 ALT 20 Alkaline Phosphatase 105 Total Protein 7.0 Albumin 4.0 Urine Eosinophils U Random Total Protein Ur Random Sodium Ur Random Urea Urine Creatinine Protein/Creat Ratio 2 C. difficile (PCR) 02/11/25 02/11/25 11:36 17:01 WBC RBC Hgb Hct MCV MCH MCHC RDW Plt Count MPV Immature Gran % (Auto) Neut % (Auto) Lymph % (Auto) [place] % (Auto) Eos % (Auto) Baso % (Auto) Lymph # (Auto) [place] # (Auto) Eos # (Auto) Baso # (Auto) Abs Immat Gran (auto) Absolute Neuts (auto) Absolute Nucleated RBC Nucleated RBC % Sodium Potassium Chloride Carbon Dioxide Anion Gap BUN Creatinine Estim Creat Clear Calc Estimated GFR Glucose POC Capillary Glucose 184 H 284 H Calcium Phosphorus Magnesium Total Bilirubin AST ALT Alkaline Phosphatase Total Protein Albumin Urine Eosinophils U Random Total Protein Ur Random Sodium Ur Random Urea Urine Creatinine Protein/Creat Ratio 2 C. difficile (PCR)
[2025-02-11] MEDS: INSULIN ASPART (*BKC) 100 UNITS/ML SUB-Q (17:58)
[2025-02-11] MEDS: LACTATED RINGERS 1,000 ML 50 ML IV CONT (18:02)
[2025-02-11] MEDS: INSULIN GLARGINE (*BKC) 100 UNITS/ML 38 UNITS SUB-Q (20:29)
[2025-02-11] MEDS: LORazepam INJ (*CRX) 2 MG/ML VIAL 1 MG IV PUSH (20:29)
[2025-02-11] MEDS: PANTOPRAZOLE SODIUM IV 40 MG VIAL IV PUSH (20:29)
[2025-02-11] MEDS: DICYCLOMINE HCL INJ 20 MG/2 ML VIAL IM (23:17)
[2025-02-12] VITALS (9 sets, daily range): BP systolic 176–196; BP diastolic 92–118; PULSE 96–120; RESP 18–20; TEMP 36.3–36.6; O2SAT 94–97
[2025-02-12 00:23] LABS: Glucose Point of Care 251 mg/dl (65-105)
--- NOTE | 2025-02-12 04:27 | PC.NURSE ---
Pt refusing IV antibiotics, she states they make her stomach hurt worse, PRN bentyl, ativan, and zofran given for abdominal cramping and nausea with no relief. Pt requesting IV dilaudid and haldol which were discontinued earlier in the day after it caused breathing issues. Pt upset, she took 2 showers tonight. Ate some applesauce and drank diet lemon [place] soda. PRN hydralazine given for elevated BP. Pt states I need to get her dilaudid reordered for her. She took a shower this am for cramping in her back she states and it helped.
[2025-02-12] MEDS: LORazepam INJ (*CRX) 2 MG/ML VIAL 1 MG IV PUSH ×2 (04:31→21:05)
[2025-02-12] MEDS: hydrALAZINE HCL 20 MG/ML VIAL IV PUSH ×2 (04:32→15:46)
[2025-02-12 05:36] LABS: Hematocrit 43.4 % (37.0-47.0); Hemoglobin 13.5 g/dL (12.0-15.0); Mean Corpuscular HGB Conc 31.1 g/dl (32-36); Mean Corpuscular Hemoglobin 28.8 pg (26-34); Mean Corpuscular Volume 92.7 fl (80-100); Mean Platelet Volume 10.8 fl (7.4-10.4); Platelet Count Result 375 k/mm3 (150-375); Red Blood Count 4.68 M/mm3 (4.2-5.4); Red Cell Distribution Width 13.2 % (11.5-14.5)
[2025-02-12 05:52] LABS: Alanine Aminotransferase 21 U/L (6-35); Albumin Level 4.2 g/dL (3.5-5.1); Alkaline Phosphatase 115 U/L (38-126); Anion Gap 12 mmol/L (4-12); Aspartate Amino Transferase 27 U/L (14-36); Bilirubin,Total 0.7 mg/dL (0.2-1.3); Blood Urea Nitrogen 33 mg/dL (7-17); Calcium 10.9 mg/dL (8.4-10.2); Carbon Dioxide 22 mmol/L (22-30); Chloride 105 mmol/L (98-107); Estimated CRCL calculation 28 ml/min; Estimated Glomerular Filt Rate 17; Glucose 263 mg/dL (65-110); Magnesium 1.8 mg/dL (1.6-2.3); Sodium 139 mmol/L (137-145)
[2025-02-12] MEDS: PROMETHAZINE HCL 25 MG/ML AMPUL IM (05:59)
[2025-02-12] MEDS: HYDROcodone/acetaminophen (*CRX) 10-325 MG TABLET 1 TAB PO ×3 (08:13→21:33)
[2025-02-12 08:14] LABS: Glucose Point of Care 271 mg/dl (65-105)
[2025-02-12] MEDS: ONDANSETRON INJ 4 MG/2 ML VIAL IV PUSH ×3 (08:21→21:33)
[2025-02-12] MEDS: INSULIN ASPART (*BKC) 100 UNITS/ML SUB-Q ×3 (08:24→17:42)
[2025-02-12] MEDS: INSULIN GLARGINE (*BKC) 100 UNITS/ML 38 UNITS SUB-Q (08:25)
--- NOTE | 2025-02-12 10:00 | P.PNNP_ITS ---
Progress Note: A&P Assessment and Plan (1) Acute kidney injury: Code(s): N17.9 - Acute kidney failure, unspecified Status: Acute Assessment and Plan: * as noted on admission (with a creatinine of 2.75mg/dl) * on discharge from [facility] last month, discharge creatinie was 1.9mg/dl * suspect due to prerenal factors (poor oral intake + nausea _ diarrhea) along with use of diuretics prior to admission * evaluation to date noted: * CT of A/P without obstruction * CPK normal * UA not indicative of infection (although yeast noted) * urine electrolytes non-prerenal * urine eosinophils negative * nephrotic range proteinuria noted * holding diuretic therapy for now * agree with gentle IVF hydration * follow volume status closely (2) Chronic kidney disease, stage IV (severe): Code(s): N18.4 - Chronic kidney disease, stage 4 (severe) Status: Chronic Assessment and Plan: * baseline creatinine runs ~ 2.0 - 2.5mg/dl in the last year * outpatient evaluation significant for normal renal ultrasound, negative serological profile, and nephrotic range proteinuria * CKD thought to be due to her previous bouts of LUKE/ARF along with diabetes, hypertension, and necessity of chronic diuretic therapy * diuretics are needed to keep swelling/edema (which is secondary to nephrotic range proteinuria/nephrotic syndrome) stable/controlled (3) Hypercalcemia: Code(s): E83.52 - Hypercalcemia Status: Acute Assessment and Plan: * as noted by labs * suspect related to poor oral intake and relative volume depletion * follow trend (4) Cyclic vomiting syndrome: Code(s): R11.15 - Cyclical vomiting syndrome unrelated to migraine Status: Acute Assessment and Plan: * known history with previous admission for this issue * GI following with recommendations noted * previous EGD showed gastric retention and gastritis * last emptying scan was within normal limits * on gentle IVFs given poor oral intake * continue PPI and carafate * antiemetics, haldol, bentyl, and ativan PRNN * advance det as tolerated (5) Diarrhea: Code(s): R19.7 - Diarrhea, unspecified Status: Acute Assessment and Plan: * noted by history * complicated by know history of irritable bowel syndrome * follow-up on stool studies * GI following as well (6) Anemia: Code(s): D64.9 - Anemia, unspecified Status: Acute Assessment and Plan: * probably due to LUKE, CKD, and acute illness * no need for CHOCO/Epogen at this time * follow trend of H/H (7) Hypertension: Code(s): I10 - Essential (primary) hypertension Status: Acute Assessment and Plan: * reasonable control * however, fluctuations noted due to inability to take oral medications * use PRN IV medications as needed * follow trend of hemodynamics (8) Insulin dependent diabetes mellitus: Status: Chronic Assessment and Plan: * follow accu-cheks * glycemic control per hospitalist Will continue to follow. L Subjective Date/time seen: 02/12/25 10:00 Interval history: Follow-up for acute kidney injury/acute renal failure on chronic kidney disease. Renal function/creatinine improved with gentle IVFs started yesterday; despite this, she continues to feel poorly at the time of my visit; continues to have on/off nausea and vomiting and per nursing, has been refusing some therapies (IV medications, IVFs...etc); no acute other issues/events ot report. Exam 2 Narrative: General: WD/WN female in mild distress Heart: normal S1 and S2; no rub Lungs: clear anteriorly Abdomen: soft, nontender, nondistended, positive bowel sounds Extremities: no cyanosis or clubbing; no edema Skin: warm and intact Objective Data Vital Signs Vital Signs: Vital Signs Temp Pulse Resp BP Pulse Ox O2 Del Method O2 Flow Rate 02/12/25 04:10 97.6 F 108 H 18 196/118 H 94 02/12/25 04:00 103 H 02/12/25 00:00 99 02/11/25 20:12 97.8 F 85 16 151/62 H 97 02/11/25 20:00 97 02/11/25 20:00 85 16 97 Room Air 02/11/25 16:00 97 02/11/25 15:45 94 Nasal Cannula 2 02/11/25 15:42 86 L Room Air 02/11/25 14:00 97.4 F L 97 18 167/77 H 95 Intake/Output Intake/Output: Intake & Output 02/09/25 02/10/25 02/11/25 02/12/25 23:59 23:59 23:59 23:59 Intake Total 1316 338 9976 250 Output Total 0 1 Balance 0919 076 4281 250 Meds/Results Medications: Active Medications Generic Name Dose Route Start Last Admin Trade Name Freq PRN Reason Stop Dose Admin Acetaminophen 1,000 mg 02/09/25 22:44 Acetaminophen 500 Mg Tablet PO Q6HR PRN Abdominal Cramping Hydrocodone Bitart/Acetaminophen 1 tab 02/09/25 22:44 02/12/25 08:13 Hydrocodone/Acetaminophen (*Crx) 10-325 Mg Tablet PO 1 tab Q6HR PRN Administration Pain 7-10 Acyclovir 400 mg 02/09/25 23:50 02/12/25 08:41 Acyclovir 400 Mg Tablet PO Not Given Q12HR [facility] Amitriptyline HCl 50 mg 02/09/25 23:50 02/11/25 22:52 Amitriptyline Hcl 25 Mg Tablet PO Not Given HS [facility] Amlodipine Besylate 5 mg 02/10/25 09:00 02/12/25 08:41 Amlodipine Besylate 5 Mg Tablet BY MOUTH Not Given DAILY [facility] Atorvastatin Calcium 20 mg 02/09/25 23:50 02/11/25 22:52 Atorvastatin 10 Mg Tablet PO Not Given QHS [facility] Bumetanide 1 mg 02/10/25 09:00 02/10/25 11:42 Bumetanide 1 Mg Tablet PO Not Given BID [facility] Calcium Carbonate 200 mg 02/09/25 22:44 Calcium Carbonate (Tums) 500 Mg (200 Mg Elemental) PO Q6H PRN Indigestion Carvedilol 6.25 mg 02/09/25 23:45 02/12/25 08:41 Carvedilol 6.25 Mg Tablet PO Not Given Q12HR [facility] Chlorthalidone 25 mg 02/10/25 09:00 02/10/25 11:43 Chlorthalidone 25 Mg Tablet PO Not Given DAILY [facility] Dextrose 12.5 gm 02/09/25 22:49 Dextrose 50% 25 Gm/50 Ml Syringe IV PUSH PRN PRN Hypoglycemia Protocol Dicyclomine HCl 20 mg 02/09/25 22:44 02/11/25 23:17 Dicyclomine Hcl Inj 20 Mg/2 Ml Vial IM 20 mg BID PRN Administration Abdominal Cramping Enoxaparin Sodium 40 mg 02/10/25 09:00 02/12/25 08:41 Enoxaparin 40 Mg/0.4 Ml Syringe SUB-Q Not Given DAILY [facility] Ergocalciferol 50,000 units 02/14/25 09:00 Ergocalciferol 50,000 Units Capsule PO WEEKLY [facility] Glucagon 1 mg 02/09/25 22:49 Glucagon For Inj 1 Mg Vial IM PRN PRN Hypoglycemia Protocol Glucose 15 gm 02/09/25 22:49 Glucose Oral Gel 15 Gm Of Glucse In 37.5 Gm Tube PO PRN PRN Hypoglycemia Protocol Hydralazine HCl 50 mg 02/09/25 23:41 02/10/25 16:56 Hydralazine Hcl 50 Mg Tablet PO 50 mg Q8H PRN Administration hypertension Hydralazine HCl 20 mg 02/11/25 14:45 02/12/25 04:32 Hydralazine Hcl 20 Mg/Ml Vial IV PUSH 20 mg Q6HR PRN Administration hypertension Metronidazole 500 mg in 100 mls @ 100 mls/hr 02/10/25 00:00 02/12/25 08:40 Flagyl 500 Mg/Iso Soln 100 Ml IVPB Not Given Q8H [facility] Dextrose 1,000 mls @ 100 mls/hr 02/09/25 22:49 Dextrose 5% 1,000 Ml IVPB PRN PRN Hypoglycemia Protocol Fluconazole 200 mg in 100 mls @ 100 mls/hr 02/11/25 09:00 02/12/25 08:41 Diflucan 200 Mg/Nacl 100 Ml IVPB Not Given DAILY [facility] Lactated Ringer's 1,000 mls @ 50 mls/hr 02/10/25 14:40 02/11/25 18:02 Lr - Lactated Ringers Iv IV CONT 50 mls/hr .Q20H [facility] Administration Insulin Aspart 3 - 6 units 02/10/25 08:00 02/12/25 08:24 Insulin Aspart (*Bkc) 100 Units/Ml SUB-Q 4 units TIDWM [facility] Administration Protocol Insulin Aspart 1 - 3 units 02/10/25 21:00 02/11/25 22:55 Insulin Aspart (*Bkc) 100 Units/Ml SUB-Q Not Given HS [facility] Protocol Insulin Glargine 38 units 02/09/25 23:55 02/12/25 08:25 Insulin Glargine (*Bkc) 100 Units/Ml SUB-Q 38 units Q12HR [facility] Administration Lorazepam 1 mg 02/11/25 14:34 02/12/25 04:31 Lorazepam Inj (*Crx) 2 Mg/Ml Vial IV PUSH 1 mg Q8HR PRN Administration Anxiety Melatonin 5 mg 02/09/25 22:44 02/10/25 21:38 Melatonin 5 Mg Tablet PO 5 mg HS PRN Administration Sleep Naloxone HCl 0.1 mg 02/11/25 16:20 Naloxone Hcl 0.4 Mg/Ml Vial IV PUSH Q5MIN PRN Opioid Reversal Ondansetron HCl 4 mg 02/09/25 22:44 02/12/25 08:21 Ondansetron Inj 4 Mg/2 Ml Vial IV PUSH 4 mg Q6HR PRN Administration Nausea Pantoprazole Sodium 40 mg 02/11/25 21:00 02/12/25 08:41 Pantoprazole Sodium Iv 40 Mg Vial IV PUSH Not Given Q12HR [facility] Perflutren Lipid Microsphere 0 ml 02/10/25 13:35 Perflutren Lipid Microspheres 1.5 Ml Vial Diluted To 10 Ml Total Volume IV PUSH 02/13/25 13:35 ONCE PRN adequate visualization Protocol Perflutren Lipid Microsphere 0 ml 02/11/25 15:30 Perflutren Lipid Microspheres 1.5 Ml Vial Diluted To 10 Ml Total Volume IV PUSH 02/14/25 15:31 ONCE PRN adequate visualization Protocol Prazosin HCl 2 mg 02/09/25 23:55 02/11/25 22:52 Prazosin Hcl 1 Mg Capsule PO Not Given HS [facility] Sertraline HCl 100 mg 02/10/25 09:00 02/12/25 08:42 Sertraline Hcl 50 Mg Tablet PO Not Given DAILY [facility] Spironolactone 25 mg 02/10/25 09:00 02/10/25 11:43 Spironolactone 25 Mg Tablet PO Not Given DAILY [facility] Sucralfate 1 gm 02/10/25 16:30 02/12/25 06:29 Sucralfate 1 Gm Tablet PO Not Given ACHS [facility] Sumatriptan Succinate 6 mg 02/09/25 23:41 Sumatriptan Succinate 6 Mg/0.5 Ml Vial SUB-Q ONCE PRN Migraine Headache Topiramate 25 mg 02/09/25 23:55 02/12/25 08:42 Topiramate 25 Mg Tablet PO Not Given Q12HR [facility] Tramadol HCl 50 mg 02/09/25 22:44 Tramadol Hcl (*Crx) 50 Mg Tablet PO Q6H PRN Pain Rated 4-6 Trazodone HCl 50 mg 02/09/25 23:55 02/11/25 22:53 Trazodone Hcl 50 Mg Tablet PO Not Given HS [facility] Vitamin D 5,000 units 02/10/25 09:00 02/12/25 08:41 Cholecalciferol 5,000 Units Tablet BY MOUTH Not Given DAILY [facility] Zolpidem Tartrate 10 mg 02/09/25 23:41 02/10/25 21:36 Zolpidem Tartrate (*Crx) 5 Mg Tablet PO 10 mg QHS PRN Administration Insomnia Radiology Results: ITS Impressions Chest X-Ray 02/09/25 16:54 IMPRESSION: Subsegmental lingular atelectasis/consolidation. Likely persistent small pericardial effusion. Abdomen/Pelvis CT 02/09/25 20:42 IMPRESSION: Hepatosplenomegaly, unchanged. No acute findings within the abdomen or pelvis, as detailed above. Labs Labs: Laboratory Tests 02/12/25 05:12 02/12/25 05:12 Calcium 10.9 H Magnesium 1.8 Total Bilirubin 0.7 AST 27 ALT 21 Alkaline Phosphatase 115 Total Protein 7.0 Albumin 4.2
--- NOTE | 2025-02-12 10:17 | P.PNIM_ITS ---
Progress Note: A&P Assessment and Plan (1) Cyclic vomiting syndrome: Code(s): R11.15 - Cyclical vomiting syndrome unrelated to migraine Status: Acute Assessment and Plan: Patient with HX of chronic cyclical N/V syndrome a previous EGD showed gastric retention and gastritis and last emptying scan was within normal limits. She has had HX of DKA secondary to dehydration and cyclical vomiting * GI Consulted appreciate recommendations * Slow IV fluids 50ML/HR monitor of overload * PPI BID * Carafate * Gave Haledol PRN when Zofran not working * take Ativan TID patient normally takes Xanax unable to tolerate oral medications at this time * Bentyl p.r.n. * Continue Flagyl at this time discontinue Levaquin patient on quite a few prolonging QTC agents/QTC * Clear liquid diet can advance as tolerated advance diet slowly GI is following (2) Abnormal chest x-ray: Code(s): R93.89 - Abnormal findings on diagnostic imaging of other specified body structures Status: Acute Assessment and Plan: No change form previous admission * Abnormal chest x-ray showing lingular consolidation versus atelectasis and likely persistent small pericardial effusion * Continue diuretics of Bumex and spironolactone * Incentive spirometer * Trend labs and vital signs * blood cultures NGTD (3) Diarrhea: Code(s): R19.7 - Diarrhea, unspecified Status: Acute Assessment and Plan: HX IBS and multiple hospital admissions typically with constipation, improving * Consult GI for persistent diarrhea * Collect stool for C diff, O&P and culture, as pt has recently been on abx, there is concern for interval development of C-diff. * D/C Levaquin continue Flagyl * Monitor and trend labs for electrolytes and replace as necessary * Bentyl and Zofran ordered (4) Acute electrocardiogram changes: Code(s): R94.31 - Abnormal electrocardiogram [ECG] [EKG] Status: Acute Assessment and Plan: EKG from 01/28/2025 showing sinus rhythm with PVCs and a LEFT bundle-branch block. New EKG from today, 02/09/2025 showing normal sinus rhythm 74 beats per minute with a new RIGHT BBB and new left anterior fascicular block. Patient endorses chest wall pain secodnary to vomiting. Echocardiogram reviewed from January 05, 2025 demonstrating a normal left ventricular systolic function with EF of 65-70% and grade 1 diastolic dysfunction. Patient does not appear to be hypervolemic. Endorses 20+ lb weight loss over the course of the past month after starting Bumex and spironolactone. Pericardial effusion unchanged on CT * Monitor QTC prolonging agents already severe medications * Trend troponins negative * Cardiology consulted * TTE limited to evaluate paracardial effusion * Telemetry * Outpatient stress * 1 dose Mag given for run of V-tach (5) Chronic kidney disease, stage IV (severe): Code(s): N18.4 - Chronic kidney disease, stage 4 (severe) Status: Chronic Assessment and Plan: Patient appears to be at baseline with creatinine of 2.75 and baseline 2.5-2.1., patient with bump in creatinine to 3.37 likely secondary to dehydration from nausea and vomiting will give slow IV fluids at 50 mL an hour * Avoid renal offending agents as possible * Consult Dr. Grimaldo as he is patient's telehealth case manager. Appreciate his comanagement. * Trend labs * Daily Weights * Accurate Intake and output * bump to 3.37 Started slow IV fluids 50 mL an hour c r cr 2.87 today (6) Diabetes mellitus: Code(s): E11.9 - Type 2 diabetes mellitus without complications Status: Chronic Assessment and Plan: * Adult sliding scale insulin protocol moderate dose * Resume Lantus 38u * Check A1c 7.8 * Hypoglycemic protocol * Glucose checks a.c. and HS * Diabetic diet (7) HTN (hypertension): Qualifiers: Hypertension type: unspecified Qualified Code(s): I10 - Essential (primary) hypertension Code(s): I10 - Essential (primary) hypertension Status: Chronic Assessment and Plan: * Continue carvedilol * Hydralazine PO PRN 50mg TID switch to IV hydralazine patient currently unable to take oral medications * BP per unit protocol (8) Gastroesophageal reflux disease: Code(s): K21.9 - Gastro-esophageal reflux disease without esophagitis Status: Acute Assessment and Plan: * PPI b.i.d. (9) Yeast infection: Code(s): B37.9 - Candidiasis, unspecified Status: Acute Assessment and Plan: UA is showing yeast * IV fluconazole Plan Code status: Full code per patient DVT prophylaxis: Lovenox Stress ulcer prophylaxis: Protonix 40 BID PT/OT notes: Ambulatory Disposition: Patient continues admission for episode cyclic vomiting with abdominal pain continued diarrhea, GI consulted and further recommendations appreciated will continue current treatment plan patient to discharge home when medically stable. Time Spent With Patient Time with patient: 25 - 35 minutes Subjective Date/time seen: 02/12/25 10:17 Interval history: Patient is a 39-year-old female admitted for cyclic vomiting with diarrhea. Pt is seen and examined. She is requesting a toast- ok to slowly advance diet. Per RN report, pt had been refusing IV antibiotics and random things, non compliant with treatment. She is requesting haldol and dilaudid- as that is the only thing that helps her nausea. Had a discussion with pt that since she is on xanax, we should avoid dilaudid and haldol is not a great treatment option for nausea. We will follow GI recommendations for nausea mngmnt. She reports pain from vomiting. Unsure when she vomited as it was not observed. But will offer lidocaine patch. Psych was consulted. Review of Systems Review of Systems: All systems reviewed & are unremarkable except as noted in HPI and below Exam Narrative: Uncontrolled vomiting and tearful Const: General: comfortable, no acute distress and uncomfortable Other: Patient resting but is having midsternal pain from vomiting currently just nauseous no further vomiting HENMT: Ears: TM's normal bilaterally Face/Nose/Sinus: Normal nares present and no epistaxis Mouth: Yes dry mucous membranes Eyes: General: appearance normal, both eyes and all related structures Sclera: sclerae normal Pupils: Equal, round and reactive pupils present EOM: EOMs intact bilaterally Other: Normal 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 Neck: Neck: supple and no JVD Lymphatic: lymphadenopathy not noted Chest: Other: Nontender to palpation Resp: Effort & Inspection: normal respiratory effort Auscultation: rales and diminished lung sounds bilateral in the lower lung camara Other: Tachypnea Cardio: Rate: regular rate Rhythm: regular rhythm Heart sounds: no gallops, Murmur heart sound present and no rubs Other: Sinus rhythm with first-degree block on telemetry GI: Inspection: non-distended Auscultation: normal bowel sounds Skin: General skin exam: normal color, no rashes or lesions noted, no erythema, No lesion and No rashes Lesions: no lesions noted Rashes: no rashes noted Wounds: no wounds Other: Pale Neuro: General: gait normal Cranial nerves: Yes Equal, round and reactive pupils present Speech: normal speech Motor exam (neuro): 5/5 motor strength present throughout and Normal motor muscle tone present throughout Sensory Exam: normal sensation Other: Nonfocal exam Extrem: General: normal to inspection, no edema and no pedal edema Other: Full active range of motion of all extremities without deficit. Psych: Mental Status: mental status grossly normal Affect: normal affect and Anxious affect present Other: Tearful Objective Data Vital Signs Vital Signs: Vital Signs - 24 hr 02/11/25 10:30 02/11/25 12:00 02/11/25 14:00 Temperature 97.4 F L Pulse Rate 98 97 Respiratory Rate 18 Blood Pressure 167/77 H Pulse Oximetry 95 Oxygen Delivery Room Air Oxygen Flow Rate 02/11/25 15:42 02/11/25 15:45 02/11/25 16:00 Temperature Pulse Rate 97 Respiratory Rate Blood Pressure Pulse Oximetry 86 L 94 Oxygen Delivery Room Air Nasal Cannula Oxygen Flow Rate 2 02/11/25 20:00 02/11/25 20:00 02/11/25 20:12 Temperature 97.8 F Pulse Rate 85 97 85 Respiratory Rate 16 16 Blood Pressure 151/62 H Pulse Oximetry 97 97 Oxygen Delivery Room Air Oxygen Flow Rate 02/12/25 00:00 02/12/25 04:00 02/12/25 04:10 Temperature 97.6 F Pulse Rate 99 103 H 108 H Respiratory Rate 18 Blood Pressure 196/118 H Pulse Oximetry 94 Oxygen Delivery Oxygen Flow Rate Intake/Output Intake/Output: Intake & Output 02/09/25 02/10/25 02/11/25 02/12/25 23:59 23:59 23:59 23:59 Intake Total 5324 301 9704 250 Output Total 0 1 Balance 1099 011 0576 250 Meds/Results Medications: Active Medications Generic Name Dose Route Start Last Admin Trade Name Freq PRN Reason Stop Dose Admin Acetaminophen 1,000 mg 02/09/25 22:44 Acetaminophen 500 Mg Tablet PO Q6HR PRN Abdominal Cramping Hydrocodone Bitart/Acetaminophen 1 tab 02/09/25 22:44 02/12/25 08:13 Hydrocodone/Acetaminophen (*Crx) 10-325 Mg Tablet PO 1 tab Q6HR PRN Administration Pain 7-10 Acyclovir 400 mg 02/09/25 23:50 02/12/25 08:41 Acyclovir 400 Mg Tablet PO Not Given Q12HR [facility] Amitriptyline HCl 50 mg 02/09/25 23:50 02/11/25 22:52 Amitriptyline Hcl 25 Mg Tablet PO Not Given HS [facility] Amlodipine Besylate 5 mg 02/10/25 09:00 02/12/25 08:41 Amlodipine Besylate 5 Mg Tablet BY MOUTH Not Given DAILY [facility] Atorvastatin Calcium 20 mg 02/09/25 23:50 02/11/25 22:52 Atorvastatin 10 Mg Tablet PO Not Given QHS [facility] Bumetanide 1 mg 02/10/25 09:00 02/10/25 11:42 Bumetanide 1 Mg Tablet PO Not Given BID [facility] Calcium Carbonate 200 mg 02/09/25 22:44 Calcium Carbonate (Tums) 500 Mg (200 Mg Elemental) PO Q6H PRN Indigestion Carvedilol 6.25 mg 02/09/25 23:45 02/12/25 08:41 Carvedilol 6.25 Mg Tablet PO Not Given Q12HR [facility] Chlorthalidone 25 mg 02/10/25 09:00 02/10/25 11:43 Chlorthalidone 25 Mg Tablet PO Not Given DAILY [facility] Dextrose 12.5 gm 02/09/25 22:49 Dextrose 50% 25 Gm/50 Ml Syringe IV PUSH PRN PRN Hypoglycemia Protocol Dicyclomine HCl 20 mg 02/09/25 22:44 02/11/25 23:17 Dicyclomine Hcl Inj 20 Mg/2 Ml Vial IM 20 mg BID PRN Administration Abdominal Cramping Enoxaparin Sodium 40 mg 02/10/25 09:00 02/12/25 08:41 Enoxaparin 40 Mg/0.4 Ml Syringe SUB-Q Not Given DAILY [facility] Ergocalciferol 50,000 units 02/14/25 09:00 Ergocalciferol 50,000 Units Capsule PO WEEKLY [facility] Glucagon 1 mg 02/09/25 22:49 Glucagon For Inj 1 Mg Vial IM PRN PRN Hypoglycemia Protocol Glucose 15 gm 02/09/25 22:49 Glucose Oral Gel 15 Gm Of Glucse In 37.5 Gm Tube PO PRN PRN Hypoglycemia Protocol Hydralazine HCl 50 mg 02/09/25 23:41 02/10/25 16:56 Hydralazine Hcl 50 Mg Tablet PO 50 mg Q8H PRN Administration hypertension Hydralazine HCl 20 mg 02/11/25 14:45 02/12/25 04:32 Hydralazine Hcl 20 Mg/Ml Vial IV PUSH 20 mg Q6HR PRN Administration hypertension Metronidazole 500 mg in 100 mls @ 100 mls/hr 02/10/25 00:00 02/12/25 08:40 Flagyl 500 Mg/Iso Soln 100 Ml IVPB Not Given Q8H [facility] Dextrose 1,000 mls @ 100 mls/hr 02/09/25 22:49 Dextrose 5% 1,000 Ml IVPB PRN PRN Hypoglycemia Protocol Fluconazole 200 mg in 100 mls @ 100 mls/hr 02/11/25 09:00 02/12/25 08:41 Diflucan 200 Mg/Nacl 100 Ml IVPB Not Given DAILY [facility] Lactated Ringer's 1,000 mls @ 50 mls/hr 02/10/25 14:40 02/11/25 18:02 Lr - Lactated Ringers Iv IV CONT 50 mls/hr .Q20H [facility] Administration Insulin Aspart 3 - 6 units 02/10/25 08:00 02/12/25 08:24 Insulin Aspart (*Bkc) 100 Units/Ml SUB-Q 4 units TIDWM [facility] Administration Protocol Insulin Aspart 1 - 3 units 02/10/25 21:00 02/11/25 22:55 Insulin Aspart (*Bkc) 100 Units/Ml SUB-Q Not Given HS [facility] Protocol Insulin Glargine 38 units 02/09/25 23:55 02/12/25 08:25 Insulin Glargine (*Bkc) 100 Units/Ml SUB-Q 38 units Q12HR [facility] Administration Lorazepam 1 mg 02/11/25 14:34 02/12/25 04:31 Lorazepam Inj (*Crx) 2 Mg/Ml Vial IV PUSH 1 mg Q8HR PRN Administration Anxiety Melatonin 5 mg 02/09/25 22:44 02/10/25 21:38 Melatonin 5 Mg Tablet PO 5 mg HS PRN Administration Sleep Naloxone HCl 0.1 mg 02/11/25 16:20 Naloxone Hcl 0.4 Mg/Ml Vial IV PUSH Q5MIN PRN Opioid Reversal Ondansetron HCl 4 mg 02/09/25 22:44 02/12/25 08:21 Ondansetron Inj 4 Mg/2 Ml Vial IV PUSH 4 mg Q6HR PRN Administration Nausea Pantoprazole Sodium 40 mg 02/11/25 21:00 02/12/25 08:41 Pantoprazole Sodium Iv 40 Mg Vial IV PUSH Not Given Q12HR [facility] Perflutren Lipid Microsphere 0 ml 02/10/25 13:35 Perflutren Lipid Microspheres 1.5 Ml Vial Diluted To 10 Ml Total Volume IV PUSH 02/13/25 13:35 ONCE PRN adequate visualization Protocol Perflutren Lipid Microsphere 0 ml 02/11/25 15:30 Perflutren Lipid Microspheres 1.5 Ml Vial Diluted To 10 Ml Total Volume IV PUSH 02/14/25 15:31 ONCE PRN adequate visualization Protocol Prazosin HCl 2 mg 02/09/25 23:55 02/11/25 22:52 Prazosin Hcl 1 Mg Capsule PO Not Given HS [facility] Sertraline HCl 100 mg 02/10/25 09:00 02/12/25 08:42 Sertraline Hcl 50 Mg Tablet PO Not Given DAILY [facility] Spironolactone 25 mg 02/10/25 09:00 02/10/25 11:43 Spironolactone 25 Mg Tablet PO Not Given DAILY [facility] Sucralfate 1 gm 02/10/25 16:30 02/12/25 06:29 Sucralfate 1 Gm Tablet PO Not Given ACHS [facility] Sumatriptan Succinate 6 mg 02/09/25 23:41 Sumatriptan Succinate 6 Mg/0.5 Ml Vial SUB-Q ONCE PRN Migraine Headache Topiramate 25 mg 02/09/25 23:55 02/12/25 08:42 Topiramate 25 Mg Tablet PO Not Given Q12HR [facility] Tramadol HCl 50 mg 02/09/25 22:44 Tramadol Hcl (*Crx) 50 Mg Tablet PO Q6H PRN Pain Rated 4-6 Trazodone HCl 50 mg 02/09/25 23:55 02/11/25 22:53 Trazodone Hcl 50 Mg Tablet PO Not Given HS [facility] Vitamin D 5,000 units 02/10/25 09:00 02/12/25 08:41 Cholecalciferol 5,000 Units Tablet BY MOUTH Not Given DAILY [facility] Zolpidem Tartrate 10 mg 02/09/25 23:41 02/10/25 21:36 Zolpidem Tartrate (*Crx) 5 Mg Tablet PO 10 mg QHS PRN Administration Insomnia Radiology Results: ITS Impressions Chest X-Ray 02/09/25 16:54 IMPRESSION: Subsegmental lingular atelectasis/consolidation. Likely persistent small pericardial effusion. Abdomen/Pelvis CT 02/09/25 20:42 IMPRESSION: Hepatosplenomegaly, unchanged. No acute findings within the abdomen or pelvis, as detailed above. Labs Labs: Laboratory Results - last 24 hr 02/11/25 02/11/25 02/11/25 11:36 17:01 20:19 WBC RBC Hgb Hct MCV MCH MCHC RDW Plt Count MPV Sodium Potassium Chloride Carbon Dioxide Anion Gap BUN Creatinine Estim Creat Clear Calc Estimated GFR Glucose POC Capillary Glucose 184 H 284 H 251 H Calcium Magnesium Total Bilirubin AST ALT Alkaline Phosphatase Total Protein Albumin 02/12/25 02/12/25 05:12 08:11 WBC 19.0 H RBC 4.68 Hgb 13.5 Hct 43.4 MCV 92.7 MCH 28.8 MCHC 31.1 L RDW 13.2 Plt Count 375 MPV 10.8 H Sodium 139 Potassium 4.0 Chloride 105 Carbon Dioxide 22 Anion Gap 12 BUN 33 H Creatinine 2.87 H Estim Creat Clear Calc 28 Estimated GFR 17 L Glucose 263 H POC Capillary Glucose 271 H Calcium 10.9 H Magnesium 1.8 Total Bilirubin 0.7 AST 27 ALT 21 Alkaline Phosphatase 115 Total Protein 7.0 Albumin 4.2 Quality VTE Prophylaxis VTE prophylaxis: pharmacologic ordered
[2025-02-12 11:41] LABS: Glucose Point of Care 219 mg/dl (65-105)
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
[2025-02-12] MEDS: LIDOCAINE 5% PATCH 1 PATCH TRANSDERM (15:33)
[2025-02-12 16:46] LABS: Glucose Point of Care 233 mg/dl (65-105)
--- NOTE | 2025-02-12 17:37 | WPDGIPROGNO ---
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 (5) Legal blindness of right eye, as defined in [place]: Code(s): H54.8 - Legal blindness, as defined in [place] Status: Acute (6) Fatty liver: Code(s): K76.0 - Fatty (change of) liver, not elsewhere classified Status: Acute Subjective Date/time seen: 02/12/25 17:37 Interval history: still with nausea and no improvement denies any diarrhea she would like to get more haldol to control nausea Review of Systems Review of Systems: All systems reviewed & are unremarkable except as noted in HPI and below Exam Const: General: comfortable and uncomfortable HENMT: Face/Nose/Sinus: Normal nares present Eyes: Sclera: sclerae normal Neck: Neck: supple Resp: Effort & Inspection: normal respiratory effort Auscultation: diminished lung sounds bilateral in the lower lung camara Cardio: Rate: regular rate Rhythm: regular rhythm GI: Inspection: non-distended GI Palp: Yes Tenderness to palpation present (GI) (mild ttp, no guarding) Auscultation: normal bowel sounds Skin: General skin exam: normal color and no rashes or lesions noted Neuro: General: gait normal Motor exam (neuro): 5/5 motor strength present throughout and Normal motor muscle tone present throughout Extrem: General: normal to inspection and no edema Psych: Affect: Anxious affect present Objective Data Vital Signs Vital Signs: Vital Signs - 24 hr 02/11/25 20:00 02/11/25 20:00 02/11/25 20:12 Temperature 97.8 F Pulse Rate 85 97 85 Respiratory Rate 16 16 Blood Pressure 151/62 H Pulse Oximetry 97 97 Oxygen Delivery Room Air 02/12/25 00:00 02/12/25 04:00 02/12/25 04:10 Temperature 97.6 F Pulse Rate 99 103 H 108 H Respiratory Rate 18 Blood Pressure 196/118 H Pulse Oximetry 94 Oxygen Delivery 02/12/25 08:00 02/12/25 08:00 02/12/25 12:00 Temperature Pulse Rate 111 H 96 Respiratory Rate Blood Pressure Pulse Oximetry 97 Oxygen Delivery Room Air 02/12/25 15:20 02/12/25 16:00 Temperature 97.3 F L Pulse Rate 107 H 112 H Respiratory Rate 18 Blood Pressure 183/118 H Pulse Oximetry 97 Oxygen Delivery Intake/Output Intake/Output: Intake & Output 02/09/25 02/10/25 02/11/25 02/12/25 23:59 23:59 23:59 23:59 Intake Total 7824 220 1157 250 Output Total 0 1 Balance 0848 538 3833 250 Meds/Results Medications: Active Medications Generic Name Dose Route Start Last Admin Trade Name Freq PRN Reason Stop Dose Admin Acetaminophen 1,000 mg 02/09/25 22:44 Acetaminophen 500 Mg Tablet PO Q6HR PRN Abdominal Cramping Hydrocodone Bitart/Acetaminophen 1 tab 02/09/25 22:44 02/12/25 15:32 Hydrocodone/Acetaminophen (*Crx) 10-325 Mg Tablet PO 1 tab Q6HR PRN Administration Pain 7-10 Acyclovir 400 mg 02/09/25 23:50 02/12/25 08:41 Acyclovir 400 Mg Tablet PO Not Given Q12HR [facility] Amitriptyline HCl 50 mg 02/09/25 23:50 02/11/25 22:52 Amitriptyline Hcl 25 Mg Tablet PO Not Given HS [facility] Amlodipine Besylate 5 mg 02/10/25 09:00 02/12/25 08:41 Amlodipine Besylate 5 Mg Tablet BY MOUTH Not Given DAILY [facility] Atorvastatin Calcium 20 mg 02/09/25 23:50 02/11/25 22:52 Atorvastatin 10 Mg Tablet PO Not Given QHS [facility] Bumetanide 1 mg 02/10/25 09:00 02/10/25 11:42 Bumetanide 1 Mg Tablet PO Not Given BID [facility] Calcium Carbonate 200 mg 02/09/25 22:44 Calcium Carbonate (Tums) 500 Mg (200 Mg Elemental) PO Q6H PRN Indigestion Carvedilol 6.25 mg 02/09/25 23:45 02/12/25 08:41 Carvedilol 6.25 Mg Tablet PO Not Given Q12HR [facility] Chlorthalidone 25 mg 02/10/25 09:00 02/10/25 11:43 Chlorthalidone 25 Mg Tablet PO Not Given DAILY [facility] Dextrose 12.5 gm 02/09/25 22:49 Dextrose 50% 25 Gm/50 Ml Syringe IV PUSH PRN PRN Hypoglycemia Protocol Dicyclomine HCl 20 mg 02/09/25 22:44 02/11/25 23:17 Dicyclomine Hcl Inj 20 Mg/2 Ml Vial IM 20 mg BID PRN Administration Abdominal Cramping Enoxaparin Sodium 40 mg 02/10/25 09:00 02/12/25 08:41 Enoxaparin 40 Mg/0.4 Ml Syringe SUB-Q Not Given DAILY [facility] Ergocalciferol 50,000 units 02/14/25 09:00 Ergocalciferol 50,000 Units Capsule PO WEEKLY [facility] Glucagon 1 mg 02/09/25 22:49 Glucagon For Inj 1 Mg Vial IM PRN PRN Hypoglycemia Protocol Glucose 15 gm 02/09/25 22:49 Glucose Oral Gel 15 Gm Of Glucse In 37.5 Gm Tube PO PRN PRN Hypoglycemia Protocol Hydralazine HCl 50 mg 02/09/25 23:41 02/10/25 16:56 Hydralazine Hcl 50 Mg Tablet PO 50 mg Q8H PRN Administration hypertension Hydralazine HCl 20 mg 02/11/25 14:45 02/12/25 15:46 Hydralazine Hcl 20 Mg/Ml Vial IV PUSH 20 mg Q6HR PRN Administration hypertension Metronidazole 500 mg in 100 mls @ 100 mls/hr 02/10/25 00:00 02/12/25 17:08 Flagyl 500 Mg/Iso Soln 100 Ml IVPB Not Given Q8H [facility] Dextrose 1,000 mls @ 100 mls/hr 02/09/25 22:49 Dextrose 5% 1,000 Ml IVPB PRN PRN Hypoglycemia Protocol Fluconazole 200 mg in 100 mls @ 100 mls/hr 02/11/25 09:00 02/12/25 08:41 Diflucan 200 Mg/Nacl 100 Ml IVPB Not Given DAILY [facility] Lactated Ringer's 1,000 mls @ 50 mls/hr 02/10/25 14:40 02/11/25 18:02 Lr - Lactated Ringers Iv IV CONT 50 mls/hr .Q20H [facility] Administration Insulin Aspart 3 - 6 units 02/10/25 08:00 02/12/25 13:11 Insulin Aspart (*Bkc) 100 Units/Ml SUB-Q 3 units TIDWM [facility] Administration Protocol Insulin Aspart 1 - 3 units 02/10/25 21:00 02/11/25 22:55 Insulin Aspart (*Bkc) 100 Units/Ml SUB-Q Not Given HS [facility] Protocol Insulin Glargine 38 units 02/09/25 23:55 02/12/25 08:25 Insulin Glargine (*Bkc) 100 Units/Ml SUB-Q 38 units Q12HR [facility] Administration Lidocaine 1 patch 02/12/25 15:25 02/12/25 15:33 Lidocaine 5% Patch TRANSDERM 1 patch DAILY [facility] Administration Lorazepam 1 mg 02/11/25 14:34 02/12/25 04:31 Lorazepam Inj (*Crx) 2 Mg/Ml Vial IV PUSH 1 mg Q8HR PRN Administration Anxiety Melatonin 5 mg 02/09/25 22:44 02/10/25 21:38 Melatonin 5 Mg Tablet PO 5 mg HS PRN Administration Sleep Naloxone HCl 0.1 mg 02/11/25 16:20 Naloxone Hcl 0.4 Mg/Ml Vial IV PUSH Q5MIN PRN Opioid Reversal Ondansetron HCl 4 mg 02/09/25 22:44 02/12/25 15:47 Ondansetron Inj 4 Mg/2 Ml Vial IV PUSH 4 mg Q6HR PRN Administration Nausea Pantoprazole Sodium 40 mg 02/11/25 21:00 02/12/25 08:41 Pantoprazole Sodium Iv 40 Mg Vial IV PUSH Not Given Q12HR [facility] Perflutren Lipid Microsphere 0 ml 02/10/25 13:35 Perflutren Lipid Microspheres 1.5 Ml Vial Diluted To 10 Ml Total Volume IV PUSH 02/13/25 13:35 ONCE PRN adequate visualization Protocol Perflutren Lipid Microsphere 0 ml 02/11/25 15:30 Perflutren Lipid Microspheres 1.5 Ml Vial Diluted To 10 Ml Total Volume IV PUSH 02/14/25 15:31 ONCE PRN adequate visualization Protocol Prazosin HCl 2 mg 02/09/25 23:55 02/11/25 22:52 Prazosin Hcl 1 Mg Capsule PO Not Given HS [facility] Sertraline HCl 100 mg 02/10/25 09:00 02/12/25 08:42 Sertraline Hcl 50 Mg Tablet PO Not Given DAILY [facility] Spironolactone 25 mg 02/10/25 09:00 02/10/25 11:43 Spironolactone 25 Mg Tablet PO Not Given DAILY [facility] Sucralfate 1 gm 02/10/25 16:30 02/12/25 17:10 Sucralfate 1 Gm Tablet PO Not Given ACHS [facility] Sumatriptan Succinate 6 mg 02/09/25 23:41 Sumatriptan Succinate 6 Mg/0.5 Ml Vial SUB-Q ONCE PRN Migraine Headache Topiramate 25 mg 02/09/25 23:55 02/12/25 08:42 Topiramate 25 Mg Tablet PO Not Given Q12HR [facility] Tramadol HCl 50 mg 02/09/25 22:44 Tramadol Hcl (*Crx) 50 Mg Tablet PO Q6H PRN Pain Rated 4-6 Trazodone HCl 50 mg 02/09/25 23:55 02/11/25 22:53 Trazodone Hcl 50 Mg Tablet PO Not Given HS [facility] Vitamin D 5,000 units 02/10/25 09:00 02/12/25 08:41 Cholecalciferol 5,000 Units Tablet BY MOUTH Not Given DAILY [facility] Zolpidem Tartrate 10 mg 02/09/25 23:41 02/10/25 21:36 Zolpidem Tartrate (*Crx) 5 Mg Tablet PO 10 mg QHS PRN Administration Insomnia Radiology Results: ITS Impressions Chest X-Ray 02/09/25 16:54 IMPRESSION: Subsegmental lingular atelectasis/consolidation. Likely persistent small pericardial effusion. Abdomen/Pelvis CT 02/09/25 20:42 IMPRESSION: Hepatosplenomegaly, unchanged. No acute findings within the abdomen or pelvis, as detailed above. Labs Labs: Laboratory Results - last 24 hr 02/11/25 02/12/25 02/12/25 20:19 05:12 08:11 WBC 19.0 H RBC 4.68 Hgb 13.5 Hct 43.4 MCV 92.7 MCH 28.8 MCHC 31.1 L RDW 13.2 Plt Count 375 MPV 10.8 H Sodium 139 Potassium 4.0 Chloride 105 Carbon Dioxide 22 Anion Gap 12 BUN 33 H Creatinine 2.87 H Estim Creat Clear Calc 28 Estimated GFR 17 L Glucose 263 H POC Capillary Glucose 251 H 271 H Calcium 10.9 H Magnesium 1.8 Total Bilirubin 0.7 AST 27 ALT 21 Alkaline Phosphatase 115 Total Protein 7.0 Albumin 4.2 02/12/25 02/12/25 11:38 16:43 WBC RBC Hgb Hct MCV MCH MCHC RDW Plt Count MPV Sodium Potassium Chloride Carbon Dioxide Anion Gap BUN Creatinine Estim Creat Clear Calc Estimated GFR Glucose POC Capillary Glucose 219 H 233 H Calcium Magnesium Total Bilirubin AST ALT Alkaline Phosphatase Total Protein Albumin
[2025-02-12] MEDS: SUMAtriptan SUCCINATE 6 MG/0.5 ML VIAL SUB-Q (17:42)
[2025-02-12 20:09] LABS: Legionella pneumophila Ag Ur NOT DETECTED
[2025-02-12 20:47] LABS: Glucose Point of Care 194 mg/dl (65-105)
[2025-02-12] MEDS: ZOLPIDEM TARTRATE (*CRX) 5 MG TABLET 10 MG PO (21:04)
[2025-02-12] MEDS: DICYCLOMINE HCL INJ 20 MG/2 ML VIAL IM (21:06)
[2025-02-13] VITALS (11 sets, daily range): BP systolic 138–169; BP diastolic 70–86; PULSE 66–107; RESP 16–20; TEMP 36.2–36.7; O2SAT 94–97
[2025-02-13 05:24] LABS: Hematocrit 41.2 % (37.0-47.0); Hemoglobin 12.7 g/dL (12.0-15.0); Mean Corpuscular HGB Conc 30.8 g/dl (32-36); Mean Corpuscular Volume 90.7 fl (80-100); Mean Platelet Volume 10.4 fl (7.4-10.4); Platelet Count Result 308 k/mm3 (150-375); Red Blood Count 4.54 M/mm3 (4.2-5.4); Red Cell Distribution Width 13.1 % (11.5-14.5)
[2025-02-13 05:41] LABS: Alanine Aminotransferase 19 U/L (6-35); Albumin Level 3.9 g/dL (3.5-5.1); Alkaline Phosphatase 93 U/L (38-126); Anion Gap 11 mmol/L (4-12); Aspartate Amino Transferase 34 U/L (14-36); Bilirubin,Total 0.5 mg/dL (0.2-1.3); Blood Urea Nitrogen 39 mg/dL (7-17); Calcium 10.6 mg/dL (8.4-10.2); Carbon Dioxide 24 mmol/L (22-30); Chloride 104 mmol/L (98-107); Estimated CRCL calculation 23 ml/min; Estimated Glomerular Filt Rate 14; Glucose 150 mg/dL (65-110); Magnesium 1.9 mg/dL (1.6-2.3); Potassium 3.7 mmol/L (3.4-5.0); Sodium 139 mmol/L (137-145)
[2025-02-13 08:30] LABS: Glucose Point of Care 153 mg/dl (65-105)
[2025-02-13] MEDS: LIDOCAINE 5% PATCH 1 PATCH TRANSDERM (08:47)
[2025-02-13] MEDS: metroNIDAZOLE 500 MG/ISO 100ML 500 MG/100 ML BAG 100 MG IVPB ×2 (08:48→16:51)
[2025-02-13] MEDS: PANTOPRAZOLE SODIUM IV 40 MG VIAL IV PUSH ×2 (08:49→20:37)
[2025-02-13] MEDS: ENOXAPARIN 40 MG/0.4 ML SYRINGE SUB-Q (08:49)
[2025-02-13] MEDS: carvediloL 6.25 MG TABLET PO ×2 (08:49→20:33)
[2025-02-13] MEDS: amLODIPine BESYLATE 5 MG TABLET BY MOUTH (08:49)
[2025-02-13] MEDS: TOPIRAMATE 25 MG TABLET PO ×2 (08:49→20:33)
[2025-02-13] MEDS: ACYCLOVIR 400 MG TABLET PO ×2 (08:49→20:33)
[2025-02-13] MEDS: SERTRALINE HCL 50 MG TABLET 100 MG PO (08:49)
[2025-02-13] MEDS: CHOLECALCIFEROL 5,000 UNITS TABLET 5000 UNITS BY MOUTH (08:50)
[2025-02-13] MEDS: INSULIN GLARGINE (*BKC) 100 UNITS/ML 38 UNITS SUB-Q ×2 (09:23→21:18)
[2025-02-13] MEDS: ONDANSETRON INJ 4 MG/2 ML VIAL IV PUSH ×2 (09:25→17:51)
[2025-02-13] MEDS: FLUCONAZOLE 200 MG/NACL 100 ML 200 MG/100 ML BAG 100 MG IVPB (10:18)
--- NOTE | 2025-02-13 11:28 | P.PNNP_ITS ---
Progress Note: A&P Assessment and Plan (1) Acute kidney injury: Code(s): N17.9 - Acute kidney failure, unspecified Status: Acute Assessment and Plan: * as noted on admission (with a creatinine of 2.75mg/dl) * on discharge from [facility] last month, discharge creatinie was 1.9mg/dl * suspect due to prerenal factors (poor oral intake + nausea _ diarrhea) along with use of diuretics prior to admission * evaluation to date noted: * CT of A/P without obstruction * CPK normal * UA not indicative of infection (although yeast noted) * urine electrolytes non-prerenal * urine eosinophils negative * nephrotic range proteinuria noted * holding diuretic therapy for now * agree with gentle IVF hydration * follow volume status closely (2) Chronic kidney disease, stage IV (severe): Code(s): N18.4 - Chronic kidney disease, stage 4 (severe) Status: Chronic Assessment and Plan: * baseline creatinine runs ~ 2.0 - 2.5mg/dl in the last year * outpatient evaluation significant for normal renal ultrasound, negative serological profile, and nephrotic range proteinuria * CKD thought to be due to her previous bouts of LUKE/ARF along with diabetes, hypertension, and necessity of chronic diuretic therapy * diuretics are needed to keep swelling/edema (which is secondary to nephrotic range proteinuria/nephrotic syndrome) stable/controlled (3) Hypercalcemia: Code(s): E83.52 - Hypercalcemia Status: Acute Assessment and Plan: * as noted by labs * suspect related to poor oral intake and relative volume depletion * follow trend (4) Cyclic vomiting syndrome: Code(s): R11.15 - Cyclical vomiting syndrome unrelated to migraine Status: Acute Assessment and Plan: * known history with previous admission for this issue * GI following with recommendations noted * previous EGD showed gastric retention and gastritis * last emptying scan was within normal limits * on gentle IVFs given poor oral intake * continue PPI and carafate * antiemetics, haldol, bentyl, and ativan PRNN * advance det as tolerated (5) Diarrhea: Code(s): R19.7 - Diarrhea, unspecified Status: Acute Assessment and Plan: * noted by history * complicated by know history of irritable bowel syndrome * follow-up on stool studies * empiric metronidazole * GI following as well (6) Anemia: Code(s): D64.9 - Anemia, unspecified Status: Acute Assessment and Plan: * probably due to LUKE, CKD, and acute illness * no need for CHOCO/Epogen at this time * follow trend of H/H (7) Hypertension: Code(s): I10 - Essential (primary) hypertension Status: Acute Assessment and Plan: * reasonable control * however, fluctuations noted due to inability to take oral medications * now willing to try * use PRN IV medications as needed * follow trend of hemodynamics (8) Insulin dependent diabetes mellitus: Status: Chronic Assessment and Plan: * follow accu-cheks * glycemic control per hospitalist Will continue to follow. L Subjective Date/time seen: 02/13/25 11:28 Interval history: Follow-up for acute kidney injury/acute renal failure on chronic kidney disease. Renal function/creatinine had improved yesterday but a tad worse today; still with nausea but with some improvement although no significant vomiting reported; remains on gentle IVFs at this time with diuretic therapy on hold; no other significant change noted. Exam 2 Narrative: General: WD/WN female in mild distress Heart: normal S1 and S2; no rub Lungs: clear anteriorly Abdomen: soft, nontender, nondistended, positive bowel sounds Extremities: no cyanosis or clubbing; no edema Skin: no rash Objective Data Vital Signs Vital Signs: Vital Signs Temp Pulse Resp BP Pulse Ox O2 Del Method 02/13/25 11:04 91 02/13/25 08:49 95 02/13/25 08:00 97 02/13/25 08:00 Room Air 02/13/25 04:58 97.7 F 95 20 140/70 94 02/13/25 04:00 98 02/13/25 00:00 107 H 02/12/25 20:35 97.8 F 109 H 20 176/92 H 95 02/12/25 20:00 120 H 02/12/25 20:00 Room Air Intake/Output Intake/Output: Intake & Output 02/10/25 02/11/25 02/12/25 02/13/25 23:59 23:59 23:59 23:59 Intake Total 200 5442 503 5089 Output Total 0 1 Balance 200 4583 054 8271 Meds/Results Medications: Active Medications Generic Name Dose Route Start Last Admin Trade Name Freq PRN Reason Stop Dose Admin Acetaminophen 1,000 mg 02/09/25 22:44 Acetaminophen 500 Mg Tablet PO Q6HR PRN Abdominal Cramping Hydrocodone Bitart/Acetaminophen 1 tab 02/09/25 22:44 02/12/25 21:33 Hydrocodone/Acetaminophen (*Crx) 10-325 Mg Tablet PO 1 tab Q6HR PRN Administration Pain 7-10 Acyclovir 400 mg 02/09/25 23:50 02/13/25 08:49 Acyclovir 400 Mg Tablet PO 400 mg Q12HR [facility] Administration Amitriptyline HCl 50 mg 02/09/25 23:50 02/12/25 22:09 Amitriptyline Hcl 25 Mg Tablet PO Not Given HS [facility] Amlodipine Besylate 5 mg 02/10/25 09:00 02/13/25 08:49 Amlodipine Besylate 5 Mg Tablet BY MOUTH 5 mg DAILY [facility] Administration Atorvastatin Calcium 20 mg 02/09/25 23:50 02/12/25 22:09 Atorvastatin 10 Mg Tablet PO Not Given QHS [facility] Bumetanide 1 mg 02/10/25 09:00 02/10/25 11:42 Bumetanide 1 Mg Tablet PO Not Given BID [facility] Calcium Carbonate 200 mg 02/09/25 22:44 Calcium Carbonate (Tums) 500 Mg (200 Mg Elemental) PO Q6H PRN Indigestion Carvedilol 6.25 mg 02/09/25 23:45 02/13/25 08:49 Carvedilol 6.25 Mg Tablet PO 6.25 mg Q12HR [facility] Administration Chlorthalidone 25 mg 02/10/25 09:00 02/10/25 11:43 Chlorthalidone 25 Mg Tablet PO Not Given DAILY [facility] Dextrose 12.5 gm 02/09/25 22:49 Dextrose 50% 25 Gm/50 Ml Syringe IV PUSH PRN PRN Hypoglycemia Protocol Dicyclomine HCl 20 mg 02/09/25 22:44 02/12/25 21:06 Dicyclomine Hcl Inj 20 Mg/2 Ml Vial IM 20 mg BID PRN Administration Abdominal Cramping Enoxaparin Sodium 40 mg 02/10/25 09:00 02/13/25 08:49 Enoxaparin 40 Mg/0.4 Ml Syringe SUB-Q 40 mg DAILY [facility] Administration Ergocalciferol 50,000 units 02/14/25 09:00 Ergocalciferol 50,000 Units Capsule PO WEEKLY [facility] Glucagon 1 mg 02/09/25 22:49 Glucagon For Inj 1 Mg Vial IM PRN PRN Hypoglycemia Protocol Glucose 15 gm 02/09/25 22:49 Glucose Oral Gel 15 Gm Of Glucse In 37.5 Gm Tube PO PRN PRN Hypoglycemia Protocol Hydralazine HCl 50 mg 02/09/25 23:41 02/10/25 16:56 Hydralazine Hcl 50 Mg Tablet PO 50 mg Q8H PRN Administration hypertension Hydralazine HCl 20 mg 02/11/25 14:45 02/12/25 15:46 Hydralazine Hcl 20 Mg/Ml Vial IV PUSH 20 mg Q6HR PRN Administration hypertension Metronidazole 500 mg in 100 mls @ 100 mls/hr 02/10/25 00:00 02/13/25 17:51 Flagyl 500 Mg/Iso Soln 100 Ml IVPB Infused Q8H [facility] Infusion Dextrose 1,000 mls @ 100 mls/hr 02/09/25 22:49 Dextrose 5% 1,000 Ml IVPB PRN PRN Hypoglycemia Protocol Fluconazole 200 mg in 100 mls @ 100 mls/hr 02/11/25 09:00 02/13/25 10:18 Diflucan 200 Mg/Nacl 100 Ml IVPB 100 mls/hr DAILY [facility] Administration Lactated Ringer's 1,000 mls @ 50 mls/hr 02/10/25 14:40 02/11/25 18:02 Lr - Lactated Ringers Iv IV CONT 50 mls/hr .Q20H [facility] Administration Insulin Aspart 3 - 6 units 02/10/25 08:00 02/13/25 17:46 Insulin Aspart (*Bkc) 100 Units/Ml SUB-Q 3 units TIDWM [facility] Administration Protocol Insulin Aspart 1 - 3 units 02/10/25 21:00 02/12/25 22:10 Insulin Aspart (*Bkc) 100 Units/Ml SUB-Q Not Given HS [facility] Protocol Insulin Glargine 38 units 02/09/25 23:55 02/13/25 09:23 Insulin Glargine (*Bkc) 100 Units/Ml SUB-Q 38 units Q12HR [facility] Administration Lidocaine 1 patch 02/12/25 15:25 02/13/25 08:47 Lidocaine 5% Patch TRANSDERM 1 patch DAILY [facility] Administration Lorazepam 1 mg 02/11/25 14:34 02/12/25 21:05 Lorazepam Inj (*Crx) 2 Mg/Ml Vial IV PUSH 1 mg Q8HR PRN Administration Anxiety Melatonin 5 mg 02/09/25 22:44 02/10/25 21:38 Melatonin 5 Mg Tablet PO 5 mg HS PRN Administration Sleep Naloxone HCl 0.1 mg 02/11/25 16:20 Naloxone Hcl 0.4 Mg/Ml Vial IV PUSH Q5MIN PRN Opioid Reversal Ondansetron HCl 4 mg 02/09/25 22:44 02/13/25 17:51 Ondansetron Inj 4 Mg/2 Ml Vial IV PUSH 4 mg Q6HR PRN Administration Nausea Pantoprazole Sodium 40 mg 02/11/25 21:00 02/13/25 08:49 Pantoprazole Sodium Iv 40 Mg Vial IV PUSH 40 mg Q12HR [facility] Administration Perflutren Lipid Microsphere 0 ml 02/11/25 15:30 Perflutren Lipid Microspheres 1.5 Ml Vial Diluted To 10 Ml Total Volume IV PUSH 02/14/25 15:31 ONCE PRN adequate visualization Protocol Prazosin HCl 2 mg 02/09/25 23:55 02/12/25 22:10 Prazosin Hcl 1 Mg Capsule PO Not Given HS [facility] Sertraline HCl 100 mg 02/10/25 09:00 02/13/25 08:49 Sertraline Hcl 50 Mg Tablet PO 100 mg DAILY [facility] Administration Spironolactone 25 mg 02/10/25 09:00 02/10/25 11:43 Spironolactone 25 Mg Tablet PO Not Given DAILY [facility] Sucralfate 1 gm 02/10/25 16:30 02/13/25 16:51 Sucralfate 1 Gm Tablet PO 1 gm ACHS [facility] Administration Sumatriptan Succinate 6 mg 02/09/25 23:41 02/12/25 17:42 Sumatriptan Succinate 6 Mg/0.5 Ml Vial SUB-Q 6 mg ONCE PRN Administration Migraine Headache Topiramate 25 mg 02/09/25 23:55 02/13/25 08:49 Topiramate 25 Mg Tablet PO 25 mg Q12HR [facility] Administration Tramadol HCl 50 mg 02/09/25 22:44 02/13/25 17:51 Tramadol Hcl (*Crx) 50 Mg Tablet PO 50 mg Q6H PRN Administration Pain Rated 4-6 Trazodone HCl 50 mg 02/09/25 23:55 02/12/25 22:10 Trazodone Hcl 50 Mg Tablet PO Not Given HS [facility] Vitamin D 5,000 units 02/10/25 09:00 02/13/25 08:50 Cholecalciferol 5,000 Units Tablet BY MOUTH 5,000 units DAILY [facility] Administration Zolpidem Tartrate 10 mg 02/09/25 23:41 02/12/25 21:04 Zolpidem Tartrate (*Crx) 5 Mg Tablet PO 10 mg QHS PRN Administration Insomnia Radiology Results: ITS Impressions Chest X-Ray 02/09/25 16:54 IMPRESSION: Subsegmental lingular atelectasis/consolidation. Likely persistent small pericardial effusion. Abdomen/Pelvis CT 02/09/25 20:42 IMPRESSION: Hepatosplenomegaly, unchanged. No acute findings within the abdomen or pelvis, as detailed above. Labs Labs: Laboratory Tests 02/13/25 04:44 02/13/25 04:44 Calcium 10.6 H Magnesium 1.9 Total Bilirubin 0.5 AST 34 ALT 19 Alkaline Phosphatase 93 Total Protein 7.0 Albumin 3.9
--- NOTE | 2025-02-13 11:41 | P.PNIM_ITS ---
Progress Note: A&P Assessment and Plan (1) Cyclic vomiting syndrome: Code(s): R11.15 - Cyclical vomiting syndrome unrelated to migraine Status: Acute Assessment and Plan: Patient with HX of chronic cyclical N/V syndrome a previous EGD showed gastric retention and gastritis and last emptying scan was within normal limits. She has had HX of DKA secondary to dehydration and cyclical vomiting * GI Consulted appreciate recommendations * Slow IV fluids 50ML/HR monitor of overload * PPI BID * Carafate * Gave Haledol PRN when Zofran not working * take Ativan TID patient normally takes Xanax unable to tolerate oral medications at this time * Bentyl p.r.n. * Continue Flagyl at this time discontinue Levaquin patient on quite a few prolonging QTC agents/QTC * Clear liquid diet can advance as tolerated advance diet slowly GI is following (2) Abnormal chest x-ray: Code(s): R93.89 - Abnormal findings on diagnostic imaging of other specified body structures Status: Acute Assessment and Plan: No change form previous admission * Abnormal chest x-ray showing lingular consolidation versus atelectasis and likely persistent small pericardial effusion * Continue diuretics of Bumex and spironolactone * Incentive spirometer * Trend labs and vital signs * blood cultures NGTD (3) Diarrhea: Code(s): R19.7 - Diarrhea, unspecified Status: Acute Assessment and Plan: HX IBS and multiple hospital admissions typically with constipation, improving * Consult GI for persistent diarrhea * Collect stool for C diff, O&P and culture, as pt has recently been on abx, there is concern for interval development of C-diff. * D/C Levaquin continue Flagyl * Monitor and trend labs for electrolytes and replace as necessary * Bentyl and Zofran ordered (4) Acute electrocardiogram changes: Code(s): R94.31 - Abnormal electrocardiogram [ECG] [EKG] Status: Acute Assessment and Plan: EKG from 01/28/2025 showing sinus rhythm with PVCs and a LEFT bundle-branch block. New EKG from today, 02/09/2025 showing normal sinus rhythm 74 beats per minute with a new RIGHT BBB and new left anterior fascicular block. Patient endorses chest wall pain secodnary to vomiting. Echocardiogram reviewed from January 05, 2025 demonstrating a normal left ventricular systolic function with EF of 65-70% and grade 1 diastolic dysfunction. Patient does not appear to be hypervolemic. Endorses 20+ lb weight loss over the course of the past month after starting Bumex and spironolactone. Pericardial effusion unchanged on CT * Monitor QTC prolonging agents already severe medications * Trend troponins negative * Cardiology consulted * TTE limited to evaluate paracardial effusion * Telemetry * Outpatient stress * 1 dose Mag given for run of V-tach (5) Chronic kidney disease, stage IV (severe): Code(s): N18.4 - Chronic kidney disease, stage 4 (severe) Status: Chronic Assessment and Plan: Patient appears to be at baseline with creatinine of 2.75 and baseline 2.5-2.1., patient with bump in creatinine to 3.37 likely secondary to dehydration from nausea and vomiting will give slow IV fluids at 50 mL an hour * Avoid renal offending agents as possible * Consult Dr. 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 Appreciate his comanagement. * Trend labs * Daily Weights * Accurate Intake and output * bump to 3.37 Started slow IV fluids 50 mL an hour c r cr 2.87 today 02/13 cr 3.55/bun (6) Diabetes mellitus: Code(s): E11.9 - Type 2 diabetes mellitus without complications Status: Chronic Assessment and Plan: * Adult sliding scale insulin protocol moderate dose * Resume Lantus 38u * Check A1c 7.8 * Hypoglycemic protocol * Glucose checks a.c. and HS * Diabetic diet (7) HTN (hypertension): Qualifiers: Hypertension type: unspecified Qualified Code(s): I10 - Essential (primary) hypertension Code(s): I10 - Essential (primary) hypertension Status: Chronic Assessment and Plan: * Continue carvedilol * Hydralazine PO PRN 50mg TID switch to IV hydralazine patient currently unable to take oral medications * BP per unit protocol (8) Gastroesophageal reflux disease: Code(s): K21.9 - Gastro-esophageal reflux disease without esophagitis Status: Acute Assessment and Plan: * PPI b.i.d. (9) Yeast infection: Code(s): B37.9 - Candidiasis, unspecified Status: Acute Assessment and Plan: UA is showing yeast * IV fluconazole Plan Code status: Full code per patient DVT prophylaxis: Lovenox Stress ulcer prophylaxis: Protonix 40 BID PT/OT notes: Ambulatory Disposition: Patient continues admission for episode cyclic vomiting with abdominal pain continued diarrhea, GI consulted and further recommendations appreciated will continue current treatment plan patient to discharge home when medically stable. Time Spent With Patient Time with patient: 25 - 35 minutes Subjective Date/time seen: 02/13/25 11:41 Interval history: still with nausea and no improvement. able to take meds and was agreeable to this am. denies any diarrhea she would like to get more haldol to control nausea. discussed in great details that it is not an advisable treatment for nausea. GI is following. WBC trending down. Once able to eat more-should be ok to discharge Review of Systems Review of Systems: All systems reviewed & are unremarkable except as noted in HPI and below Exam Narrative: Uncontrolled vomiting and tearful Const: General: comfortable, no acute distress and uncomfortable Other: Patient resting but is having midsternal pain from vomiting currently just nauseous no further vomiting HENMT: Ears: TM's normal bilaterally Face/Nose/Sinus: Normal nares present and no epistaxis Mouth: Yes dry mucous membranes Eyes: General: appearance normal, both eyes and all related structures Sclera: sclerae normal Pupils: Equal, round and reactive pupils present EOM: EOMs intact bilaterally Other: Normal 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 Neck: Neck: supple and no JVD Lymphatic: lymphadenopathy not noted Chest: Other: Nontender to palpation Resp: Effort & Inspection: normal respiratory effort Auscultation: rales and diminished lung sounds bilateral in the lower lung camara Other: Tachypnea Cardio: Rate: regular rate Rhythm: regular rhythm Heart sounds: no gallops, Murmur heart sound present and no rubs Other: Sinus rhythm with first-degree block on telemetry GI: Inspection: non-distended Auscultation: normal bowel sounds Skin: General skin exam: normal color, no rashes or lesions noted, no erythema, No lesion and No rashes Lesions: no lesions noted Rashes: no rashes noted Wounds: no wounds Other: Pale Neuro: General: gait normal Cranial nerves: Yes Equal, round and reactive pupils present Speech: normal speech Motor exam (neuro): 5/5 motor strength present throughout and Normal motor muscle tone present throughout Sensory Exam: normal sensation Other: Nonfocal exam Extrem: General: normal to inspection, no edema and no pedal edema Other: Full active range of motion of all extremities without deficit. Psych: Mental Status: mental status grossly normal Affect: normal affect and Anxious affect present Other: Tearful Objective Data Vital Signs Vital Signs: Vital Signs - 24 hr 02/12/25 12:00 02/12/25 15:20 02/12/25 16:00 Temperature 97.3 F L Pulse Rate 96 107 H 112 H Respiratory Rate 18 Blood Pressure 183/118 H Pulse Oximetry 97 Oxygen Delivery 02/12/25 20:00 02/12/25 20:00 02/12/25 20:35 Temperature 97.8 F Pulse Rate 120 H 109 H Respiratory Rate 20 Blood Pressure 176/92 H Pulse Oximetry 95 Oxygen Delivery Room Air 02/13/25 00:00 02/13/25 04:00 02/13/25 04:58 Temperature 97.7 F Pulse Rate 107 H 98 95 Respiratory Rate 20 Blood Pressure 140/70 Pulse Oximetry 94 Oxygen Delivery 02/13/25 08:49 Temperature Pulse Rate 95 Respiratory Rate Blood Pressure Pulse Oximetry Oxygen Delivery Intake/Output Intake/Output: Intake & Output 02/10/25 02/11/25 02/12/25 02/13/25 23:59 23:59 23:59 23:59 Intake Total 200 1820 730 730 Output Total 0 1 Balance 200 1819 730 730 Meds/Results Medications: Active Medications Generic Name Dose Route Start Last Admin Trade Name Freq PRN Reason Stop Dose Admin Acetaminophen 1,000 mg 02/09/25 22:44 Acetaminophen 500 Mg Tablet PO Q6HR PRN Abdominal Cramping Hydrocodone Bitart/Acetaminophen 1 tab 02/09/25 22:44 02/12/25 21:33 Hydrocodone/Acetaminophen (*Crx) 10-325 Mg Tablet PO 1 tab Q6HR PRN Administration Pain 7-10 Acyclovir 400 mg 02/09/25 23:50 02/13/25 08:49 Acyclovir 400 Mg Tablet PO 400 mg Q12HR [facility]TH[facility] Administration Amitriptyline HCl 50 mg 02/09/25 23:50 02/12/25 22:09 Amitriptyline Hcl 25 Mg Tablet PO Not Given HS [facility]TH[facility]H Amlodipine Besylate 5 mg 02/10/25 09:00 02/13/25 08:49 Amlodipine Besylate 5 Mg Tablet BY MOUTH 5 mg DAILY [facility]TH[facility]H Administration Atorvastatin Calcium 20 mg 02/09/25 23:50 02/12/25 22:09 Atorvastatin 10 Mg Tablet PO Not Given QHS [facility]TH[facility]H Bumetanide 1 mg 02/10/25 09:00 02/10/25 11:42 Bumetanide 1 Mg Tablet PO Not Given BID [facility]TH[facility]H Calcium Carbonate 200 mg 02/09/25 22:44 Calcium Carbonate (Tums) 500 Mg (200 Mg Elemental) PO Q6H PRN Indigestion Carvedilol 6.25 mg 02/09/25 23:45 02/13/25 08:49 Carvedilol 6.25 Mg Tablet PO 6.25 mg Q12HR [facility]TH[facility] Administration Chlorthalidone 25 mg 02/10/25 09:00 02/10/25 11:43 Chlorthalidone 25 Mg Tablet PO Not Given DAILY [facility]TH[facility]H Dextrose 12.5 gm 02/09/25 22:49 Dextrose 50% 25 Gm/50 Ml Syringe IV PUSH PRN PRN Hypoglycemia Protocol Dicyclomine HCl 20 mg 02/09/25 22:44 02/12/25 21:06 Dicyclomine Hcl Inj 20 Mg/2 Ml Vial IM 20 mg BID PRN Administration Abdominal Cramping Enoxaparin Sodium 40 mg 02/10/25 09:00 02/13/25 08:49 Enoxaparin 40 Mg/0.4 Ml Syringe SUB-Q 40 mg DAILY [facility]TH[facility] Administration Ergocalciferol 50,000 units 02/14/25 09:00 Ergocalciferol 50,000 Units Capsule PO WEEKLY [facility]TH[facility]H Glucagon 1 mg 02/09/25 22:49 Glucagon For Inj 1 Mg Vial IM PRN PRN Hypoglycemia Protocol Glucose 15 gm 02/09/25 22:49 Glucose Oral Gel 15 Gm Of Glucse In 37.5 Gm Tube PO PRN PRN Hypoglycemia Protocol Hydralazine HCl 50 mg 02/09/25 23:41 02/10/25 16:56 Hydralazine Hcl 50 Mg Tablet PO 50 mg Q8H PRN Administration hypertension Hydralazine HCl 20 mg 02/11/25 14:45 02/12/25 15:46 Hydralazine Hcl 20 Mg/Ml Vial IV PUSH 20 mg Q6HR PRN Administration hypertension Metronidazole 500 mg in 100 mls @ 100 mls/hr 02/10/25 00:00 02/13/25 10:00 Flagyl 500 Mg/Iso Soln 100 Ml IVPB Infused Q8H [facility] Infusion Dextrose 1,000 mls @ 100 mls/hr 02/09/25 22:49 Dextrose 5% 1,000 Ml IVPB PRN PRN Hypoglycemia Protocol Fluconazole 200 mg in 100 mls @ 100 mls/hr 02/11/25 09:00 02/13/25 10:18 Diflucan 200 Mg/Nacl 100 Ml IVPB 100 mls/hr DAILY [facility] Administration Lactated Ringer's 1,000 mls @ 50 mls/hr 02/10/25 14:40 02/11/25 18:02 Lr - Lactated Ringers Iv IV CONT 50 mls/hr .Q20H [facility] Administration Insulin Aspart 3 - 6 units 02/10/25 08:00 02/13/25 08:50 Insulin Aspart (*Bkc) 100 Units/Ml SUB-Q Not Given TIDWM [facility] Protocol Insulin Aspart 1 - 3 units 02/10/25 21:00 02/12/25 22:10 Insulin Aspart (*Bkc) 100 Units/Ml SUB-Q Not Given HS [facility]TH[facility] Protocol Insulin Glargine 38 units 02/09/25 23:55 02/13/25 09:23 Insulin Glargine (*Bkc) 100 Units/Ml SUB-Q 38 units Q12HR [facility] Administration Lidocaine 1 patch 02/12/25 15:25 02/13/25 08:47 Lidocaine 5% Patch TRANSDERM 1 patch DAILY [facility] Administration Lorazepam 1 mg 02/11/25 14:34 02/12/25 21:05 Lorazepam Inj (*Crx) 2 Mg/Ml Vial IV PUSH 1 mg Q8HR PRN Administration Anxiety Melatonin 5 mg 02/09/25 22:44 02/10/25 21:38 Melatonin 5 Mg Tablet PO 5 mg HS PRN Administration Sleep Naloxone HCl 0.1 mg 02/11/25 16:20 Naloxone Hcl 0.4 Mg/Ml Vial IV PUSH Q5MIN PRN Opioid Reversal Ondansetron HCl 4 mg 02/09/25 22:44 02/13/25 09:25 Ondansetron Inj 4 Mg/2 Ml Vial IV PUSH 4 mg Q6HR PRN Administration Nausea Pantoprazole Sodium 40 mg 02/11/25 21:00 02/13/25 08:49 Pantoprazole Sodium Iv 40 Mg Vial IV PUSH 40 mg Q12HR [facility] Administration Perflutren Lipid Microsphere 0 ml 02/10/25 13:35 Perflutren Lipid Microspheres 1.5 Ml Vial Diluted To 10 Ml Total Volume IV PUSH 02/13/25 13:35 ONCE PRN adequate visualization Protocol Perflutren Lipid Microsphere 0 ml 02/11/25 15:30 Perflutren Lipid Microspheres 1.5 Ml Vial Diluted To 10 Ml Total Volume IV PUSH 02/14/25 15:31 ONCE PRN adequate visualization Protocol Prazosin HCl 2 mg 02/09/25 23:55 02/12/25 22:10 Prazosin Hcl 1 Mg Capsule PO Not Given HS [facility]TH[facility]H Sertraline HCl 100 mg 02/10/25 09:00 02/13/25 08:49 Sertraline Hcl 50 Mg Tablet PO 100 mg DAILY [facility] Administration Spironolactone 25 mg 02/10/25 09:00 02/10/25 11:43 Spironolactone 25 Mg Tablet PO Not Given DAILY [facility] Sucralfate 1 gm 02/10/25 16:30 02/13/25 06:33 Sucralfate 1 Gm Tablet PO Not Given ACHS [facility] Sumatriptan Succinate 6 mg 02/09/25 23:41 02/12/25 17:42 Sumatriptan Succinate 6 Mg/0.5 Ml Vial SUB-Q 6 mg ONCE PRN Administration Migraine Headache Topiramate 25 mg 02/09/25 23:55 02/13/25 08:49 Topiramate 25 Mg Tablet PO 25 mg Q12HR [facility] Administration Tramadol HCl 50 mg 02/09/25 22:44 Tramadol Hcl (*Crx) 50 Mg Tablet PO Q6H PRN Pain Rated 4-6 Trazodone HCl 50 mg 02/09/25 23:55 02/12/25 22:10 Trazodone Hcl 50 Mg Tablet PO Not Given HS [facility]TH[facility] Vitamin D 5,000 units 02/10/25 09:00 02/13/25 08:50 Cholecalciferol 5,000 Units Tablet BY MOUTH 5,000 units DAILY [facility] Administration Zolpidem Tartrate 10 mg 02/09/25 23:41 02/12/25 21:04 Zolpidem Tartrate (*Crx) 5 Mg Tablet PO 10 mg QHS PRN Administration Insomnia Radiology Results: ITS Impressions Chest X-Ray 02/09/25 16:54 IMPRESSION: Subsegmental lingular atelectasis/consolidation. Likely persistent small pericardial effusion. Abdomen/Pelvis CT 02/09/25 20:42 IMPRESSION: Hepatosplenomegaly, unchanged. No acute findings within the abdomen or pelvis, as detailed above. Labs Labs: Laboratory Results - last 24 hr 02/09/25 02/12/25 02/12/25 18:19 11:38 16:43 WBC RBC Hgb Hct MCV MCH MCHC RDW Plt Count MPV Sodium Potassium Chloride Carbon Dioxide Anion Gap BUN Creatinine Estim Creat Clear Calc Estimated GFR Glucose POC Capillary Glucose 219 H 233 H Calcium Magnesium Total Bilirubin AST ALT Alkaline Phosphatase Total Protein Albumin Ur L.pneumophila Ag Not detected 02/12/25 02/13/25 02/13/25 20:40 04:44 08:14 WBC 16.0 H RBC 4.54 Hgb 12.7 Hct 41.2 MCV 90.7 MCH 28.0 MCHC 30.8 L RDW 13.1 Plt Count 308 MPV 10.4 Sodium 139 Potassium 3.7 Chloride 104 Carbon Dioxide 24 Anion Gap 11 BUN 39 H Creatinine 3.55 H Estim Creat Clear Calc 23 Estimated GFR 14 L Glucose 150 H POC Capillary Glucose 194 H 153 H Calcium 10.6 H Magnesium 1.9 Total Bilirubin 0.5 AST 34 ALT 19 Alkaline Phosphatase 93 Total Protein 7.0 Albumin 3.9 Ur L.pneumophila Ag Quality VTE Prophylaxis VTE prophylaxis: pharmacologic ordered
[2025-02-13 11:43] LABS: Glucose Point of Care 245 mg/dl (65-105)
[2025-02-13] MEDS: SUCRALFATE 1 GM TABLET PO ×3 (13:00→20:33)
[2025-02-13] MEDS: INSULIN ASPART (*BKC) 100 UNITS/ML SUB-Q ×3 (13:00→21:18)
[2025-02-13 16:37] LABS: Pneumococcal Antigen Urine NOT DETECTED
[2025-02-13 17:00] LABS: Glucose Point of Care 232 mg/dl (65-105)
[2025-02-13] MEDS: traMADol HCL (*CRX) 50 MG TABLET PO (17:51)
[2025-02-13] MEDS: AMITRIPTYLINE HCL 25 MG TABLET 50 MG PO (20:33)
[2025-02-13] MEDS: PRAZOSIN HCL 1 MG CAPSULE 2 MG PO (20:33)
[2025-02-13] MEDS: ATORVASTATIN 10 MG TABLET 20 MG PO (20:33)
[2025-02-13] MEDS: traZODone HCL 50 MG TABLET PO (20:34)
[2025-02-13] MEDS: LORazepam INJ (*CRX) 2 MG/ML VIAL 1 MG IV PUSH (20:37)
[2025-02-13] MEDS: DICYCLOMINE HCL INJ 20 MG/2 ML VIAL IM (20:37)
[2025-02-13 20:49] LABS: Glucose Point of Care 236 mg/dl (65-105)
[2025-02-14] VITALS (7 sets, daily range): BP systolic 123–132; BP diastolic 64–72; PULSE 55–80; RESP 16–18; TEMP 36.6–36.7; O2SAT 93–97
[2025-02-14 05:16] LABS: Hematocrit 37.7 % (37.0-47.0); Hemoglobin 11.3 g/dL (12.0-15.0); Mean Corpuscular Volume 93.5 fl (80-100); Mean Platelet Volume 10.4 fl (7.4-10.4); Platelet Count Result 224 k/mm3 (150-375); Red Blood Count 4.03 M/mm3 (4.2-5.4); Red Cell Distribution Width 13.1 % (11.5-14.5); White Blood Count 10.2 K/mm3 (4.5-10.0)
[2025-02-14 05:26] LABS: Alanine Aminotransferase 19 U/L (6-35); Albumin Level 3.3 g/dL (3.5-5.1); Alkaline Phosphatase 83 U/L (38-126); Anion Gap 10 mmol/L (4-12); Aspartate Amino Transferase 26 U/L (14-36); Bilirubin,Total 0.3 mg/dL (0.2-1.3); Blood Urea Nitrogen 42 mg/dL (7-17); Calcium 9.9 mg/dL (8.4-10.2); Carbon Dioxide 25 mmol/L (22-30); Chloride 104 mmol/L (98-107); Estimated CRCL calculation 24 ml/min; Estimated Glomerular Filt Rate 13; Glucose 184 mg/dL (65-110); Magnesium 1.8 mg/dL (1.6-2.3); Potassium 3.4 mmol/L (3.4-5.0); Sodium 139 mmol/L (137-145)
[2025-02-14 08:15] LABS: Glucose Point of Care 167 mg/dl (65-105)
[2025-02-14] MEDS: PANTOPRAZOLE SODIUM IV 40 MG VIAL IV PUSH (09:29)
[2025-02-14] MEDS: LIDOCAINE 5% PATCH 1 PATCH TRANSDERM (09:29)
[2025-02-14] MEDS: ENOXAPARIN 40 MG/0.4 ML SYRINGE SUB-Q (09:29)
[2025-02-14] MEDS: metroNIDAZOLE 500 MG/ISO 100ML 500 MG/100 ML BAG 100 MG IVPB ×2 (09:29)
[2025-02-14] MEDS: ACYCLOVIR 400 MG TABLET PO (09:30)
[2025-02-14] MEDS: CHOLECALCIFEROL 5,000 UNITS TABLET 5000 UNITS BY MOUTH (09:31)
[2025-02-14] MEDS: ERGOCALCIFEROL 50,000 UNITS CAPSULE 50000 UNITS PO (09:31)
[2025-02-14] MEDS: TOPIRAMATE 25 MG TABLET PO (09:31)
[2025-02-14] MEDS: SERTRALINE HCL 50 MG TABLET 100 MG PO (09:31)
[2025-02-14] MEDS: carvediloL 6.25 MG TABLET PO (09:31)
[2025-02-14] MEDS: amLODIPine BESYLATE 5 MG TABLET BY MOUTH (09:31)
[2025-02-14] MEDS: HYDROcodone/acetaminophen (*CRX) 10-325 MG TABLET 1 TAB PO (09:38)
[2025-02-14] MEDS: INSULIN GLARGINE (*BKC) 100 UNITS/ML 38 UNITS SUB-Q (09:39)
[2025-02-14] MEDS: FLUCONAZOLE 200 MG/NACL 100 ML 200 MG/100 ML BAG 100 MG IVPB (11:02)
--- NOTE | 2025-02-14 11:02 | PM.PNNEP ---
Progress Note: A&P Assessment and Plan (1) Acute kidney injury: Code(s): N17.9 - Acute kidney failure, unspecified Status: Acute Assessment and Plan: elevated but no significant worsening in the last 24 hours as noted on admission (with a creatinine of 2.75mg/dl) on discharge from [facility] last month, discharge creatinie was 1.9mg/dl suspect due to prerenal factors (poor oral intake + nausea _ diarrhea) along with use of diuretics prior to admission evaluation to date noted: CT of A/P without obstruction CPK normal UA not indicative of infection (although yeast noted) urine electrolytes non-prerenal urine eosinophils negative nephrotic range proteinuria noted holding diuretic therapy for now on gentle IVF hydration posile peak/plateau of creatinine (?) follow volume status closely (2) Chronic kidney disease, stage IV (severe): Code(s): N18.4 - Chronic kidney disease, stage 4 (severe) Status: Chronic Assessment and Plan: baseline creatinine runs ~ 2.0 - 2.5mg/dl in the last year outpatient evaluation significant for normal renal ultrasound, negative serological profile, and nephrotic range proteinuria CKD thought to be due to her previous bouts of LUKE/ARF along with diabetes, hypertension, and necessity of chronic diuretic therapy diuretics are needed to keep swelling/edema (which is secondary to nephrotic range proteinuria/nephrotic syndrome) stable/controlled (3) Hypercalcemia: Code(s): E83.52 - Hypercalcemia Status: Acute Assessment and Plan: resolved as noted by labs from 02/11 suspect related to poor oral intake and relative volume depletion follow trend (4) Cyclic vomiting syndrome: Code(s): R11.15 - Cyclical vomiting syndrome unrelated to migraine Status: Acute Assessment and Plan: known history with previous admission for this issue GI following with recommendations noted previous EGD showed gastric retention and gastritis last emptying scan was within normal limits on gentle IVFs given poor oral intake continue PPI and carafate antiemetics, haldol, bentyl, and ativan PRN advance diet as tolerated (5) Diarrhea: Code(s): R19.7 - Diarrhea, unspecified Status: Acute Assessment and Plan: noted by history complicated by know history of irritable bowel syndrome follow-up on stool studies empiric metronidazole GI following as well (6) Anemia: Code(s): D64.9 - Anemia, unspecified Status: Acute Assessment and Plan: probably due to LUKE, CKD, and acute illness no need for CHOCO/Epogen at this time follow trend of H/H (7) Hypertension: Code(s): I10 - Essential (primary) hypertension Status: Acute Assessment and Plan: reasonable control however, fluctuations noted due to inability to take oral medications now willing to try use PRN IV medications as needed follow trend of hemodynamics (8) Insulin dependent diabetes mellitus: Status: Chronic Assessment and Plan: follow accu-cheks glycemic control per hospitalist Will continue to follow. Subjective Date/time seen: 02/14/25 11:02 Interval history: Follow-up for acute kidney injury/acute renal failure on chronic kidney disease. Renal function/creatinine about the same in the last 24 hours; still making reasonable urine output and swelling/edema appears stable despite diuretic therapy on hold; no further nausea noted at this time and able keep oral intake down; no apparent distress noted at the time of my visit; overall, feels significantly better today. Exam Narrative: General: WD/WN female in mild distress Heart: normal S1 and S2; no rub Lungs: clear anteriorly Abdomen: soft, nontender, nondistended, positive bowel sounds Extremities: no cyanosis or clubbing; no edema Skin: no nodules Objective Data Vital Signs Vital Signs: Vital Signs Temp Pulse Resp BP Pulse Ox O2 Del Method 02/14/25 09:31 80 02/14/25 08:00 Room Air 02/14/25 06:00 98.1 F 73 18 123/64 93 02/14/25 04:00 75 02/14/25 00:00 79 02/13/25 22:00 98.0 F 66 18 169/86 H 97 02/13/25 20:33 78 02/13/25 20:00 67 02/13/25 20:00 Room Air 02/13/25 16:00 89 02/13/25 14:00 97.1 F L 82 16 138/78 97 Intake/Output Intake/Output: Intake & Output 02/11/25 02/12/25 02/13/25 02/14/25 23:59 23:59 23:59 23:59 Intake Total 3540 274 2947 220 Output Total 1 Balance 4372 874 8445 220 Meds/Results Medications: Active Medications Generic Name Dose Route Start Last Admin Trade Name Freq PRN Reason Stop Dose Admin Acetaminophen 1,000 mg 02/09/25 22:44 Acetaminophen 500 Mg Tablet PO Q6HR PRN Abdominal Cramping Hydrocodone Bitart/Acetaminophen 1 tab 02/09/25 22:44 02/14/25 09:38 Hydrocodone/Acetaminophen (*Crx) 10-325 Mg Tablet PO 1 tab Q6HR PRN Administration Pain 7-10 Acyclovir 400 mg 02/09/25 23:50 02/14/25 09:30 Acyclovir 400 Mg Tablet PO 400 mg Q12HR SANTHOSH Administration Amitriptyline HCl 50 mg 02/09/25 23:50 02/13/25 20:33 Amitriptyline Hcl 25 Mg Tablet PO 50 mg HS SANTHOSH Administration Amlodipine Besylate 5 mg 02/10/25 09:00 02/14/25 09:31 Amlodipine Besylate 5 Mg Tablet BY MOUTH 5 mg DAILY SANTHOSH Administration Atorvastatin Calcium 20 mg 02/09/25 23:50 02/13/25 20:33 Atorvastatin 10 Mg Tablet PO 20 mg QHS SANTHOSH Administration Bumetanide 1 mg 02/10/25 09:00 02/10/25 11:42 Bumetanide 1 Mg Tablet PO Not Given BID [facility] Calcium Carbonate 200 mg 02/09/25 22:44 Calcium Carbonate (Tums) 500 Mg (200 Mg Elemental) PO Q6H PRN Indigestion Carvedilol 6.25 mg 02/09/25 23:45 02/14/25 09:31 Carvedilol 6.25 Mg Tablet PO 6.25 mg Q12HR [facility] Administration Chlorthalidone 25 mg 02/10/25 09:00 02/10/25 11:43 Chlorthalidone 25 Mg Tablet PO Not Given DAILY [facility] Dextrose 12.5 gm 02/09/25 22:49 Dextrose 50% 25 Gm/50 Ml Syringe IV PUSH PRN PRN Hypoglycemia Protocol Dicyclomine HCl 20 mg 02/09/25 22:44 02/13/25 20:37 Dicyclomine Hcl Inj 20 Mg/2 Ml Vial IM 20 mg BID PRN Administration Abdominal Cramping Enoxaparin Sodium 40 mg 02/10/25 09:00 02/14/25 09:29 Enoxaparin 40 Mg/0.4 Ml Syringe SUB-Q 40 mg DAILY SANTHOSH Administration Ergocalciferol 50,000 units 02/14/25 09:00 02/14/25 09:31 Ergocalciferol 50,000 Units Capsule PO 50,000 units WEEKLY SANTHOSH Administration Glucagon 1 mg 02/09/25 22:49 Glucagon For Inj 1 Mg Vial IM PRN PRN Hypoglycemia Protocol Glucose 15 gm 02/09/25 22:49 Glucose Oral Gel 15 Gm Of Glucse In 37.5 Gm Tube PO PRN PRN Hypoglycemia Protocol Hydralazine HCl 50 mg 02/09/25 23:41 02/10/25 16:56 Hydralazine Hcl 50 Mg Tablet PO 50 mg Q8H PRN Administration hypertension Hydralazine HCl 20 mg 02/11/25 14:45 02/12/25 15:46 Hydralazine Hcl 20 Mg/Ml Vial IV PUSH 20 mg Q6HR PRN Administration hypertension Metronidazole 500 mg in 100 mls @ 100 mls/hr 02/10/25 00:00 02/14/25 09:29 Flagyl 500 Mg/Iso Soln 100 Ml IVPB 100 mls/hr Q8H SANTHOSH Administration Dextrose 1,000 mls @ 100 mls/hr 02/09/25 22:49 Dextrose 5% 1,000 Ml IVPB PRN PRN Hypoglycemia Protocol Fluconazole 200 mg in 100 mls @ 100 mls/hr 02/11/25 09:00 02/14/25 11:02 Diflucan 200 Mg/Nacl 100 Ml IVPB 100 mls/hr DAILY [facility]THOS[facility] Administration Lactated Ringer's 1,000 mls @ 50 mls/hr 02/10/25 14:40 02/11/25 18:02 Lr - Lactated Ringers Iv IV CONT 50 mls/hr .Q20H [facility]THOSH Administration Insulin Aspart 3 - 6 units 02/10/25 08:00 02/14/25 12:05 Insulin Aspart (*Bkc) 100 Units/Ml SUB-Q Not Given TIDWM [facility]THOSH Protocol Insulin Aspart 1 - 3 units 02/10/25 21:00 02/13/25 21:18 Insulin Aspart (*Bkc) 100 Units/Ml SUB-Q 1 units HS SANTHOSH Administration Protocol Insulin Glargine 38 units 02/09/25 23:55 02/14/25 09:39 Insulin Glargine (*Bkc) 100 Units/Ml SUB-Q 38 units Q12HR [facility]THOSH Administration Lidocaine 1 patch 02/12/25 15:25 02/14/25 09:29 Lidocaine 5% Patch TRANSDERM 1 patch DAILY [facility]TH[facility] Administration Lorazepam 1 mg 02/11/25 14:34 02/13/25 20:37 Lorazepam Inj (*Crx) 2 Mg/Ml Vial IV PUSH 1 mg Q8HR PRN Administration Anxiety Melatonin 5 mg 02/09/25 22:44 02/10/25 21:38 Melatonin 5 Mg Tablet PO 5 mg HS PRN Administration Sleep Naloxone HCl 0.1 mg 02/11/25 16:20 Naloxone Hcl 0.4 Mg/Ml Vial IV PUSH Q5MIN PRN Opioid Reversal Ondansetron HCl 4 mg 02/09/25 22:44 02/13/25 17:51 Ondansetron Inj 4 Mg/2 Ml Vial IV PUSH 4 mg Q6HR PRN Administration Nausea Pantoprazole Sodium 40 mg 02/11/25 21:00 02/14/25 09:29 Pantoprazole Sodium Iv 40 Mg Vial IV PUSH 40 mg Q12HR SANTHOSH Administration Perflutren Lipid Microsphere 0 ml 02/11/25 15:30 Perflutren Lipid Microspheres 1.5 Ml Vial Diluted To 10 Ml Total Volume IV PUSH 02/14/25 15:31 ONCE PRN adequate visualization Protocol Prazosin HCl 2 mg 02/09/25 23:55 02/13/25 20:33 Prazosin Hcl 1 Mg Capsule PO 2 mg HS SANTHOSH Administration Sertraline HCl 100 mg 02/10/25 09:00 02/14/25 09:31 Sertraline Hcl 50 Mg Tablet PO 100 mg DAILY [facility] Administration Spironolactone 25 mg 02/10/25 09:00 02/10/25 11:43 Spironolactone 25 Mg Tablet PO Not Given DAILY [facility]TH[facility] Sucralfate 1 gm 02/10/25 16:30 02/14/25 12:05 Sucralfate 1 Gm Tablet PO 1 gm ACHS SANTHOSH Administration Sumatriptan Succinate 6 mg 02/09/25 23:41 02/12/25 17:42 Sumatriptan Succinate 6 Mg/0.5 Ml Vial SUB-Q 6 mg ONCE PRN Administration Migraine Headache Topiramate 25 mg 02/09/25 23:55 02/14/25 09:31 Topiramate 25 Mg Tablet PO 25 mg Q12HR SANTHOSH Administration Tramadol HCl 50 mg 02/09/25 22:44 02/13/25 17:51 Tramadol Hcl (*Crx) 50 Mg Tablet PO 50 mg Q6H PRN Administration Pain Rated 4-6 Trazodone HCl 50 mg 02/09/25 23:55 02/13/25 20:34 Trazodone Hcl 50 Mg Tablet PO 50 mg HS SANTHOSH Administration Vitamin D 5,000 units 02/10/25 09:00 02/14/25 09:31 Cholecalciferol 5,000 Units Tablet BY MOUTH 5,000 units DAILY SANTHOSH Administration Zolpidem Tartrate 10 mg 02/09/25 23:41 02/12/25 21:04 Zolpidem Tartrate (*Crx) 5 Mg Tablet PO 10 mg QHS PRN Administration Insomnia Radiology Results: ITS Impressions Chest X-Ray 02/09/25 16:54 IMPRESSION: Subsegmental lingular atelectasis/consolidation. Likely persistent small pericardial effusion. Abdomen/Pelvis CT 02/09/25 20:42 IMPRESSION: Hepatosplenomegaly, unchanged. No acute findings within the abdomen or pelvis, as detailed above. Labs Labs: Laboratory Tests 02/14/25 04:34 02/14/25 04:34 Calcium 9.9 Magnesium 1.8 Total Bilirubin 0.3 AST 26 ALT 19 Alkaline Phosphatase 83 Total Protein 6.0 L Albumin 3.3 L
[2025-02-14] MEDS: SUCRALFATE 1 GM TABLET PO (12:05)
[2025-02-14 12:26] LABS: Glucose Point of Care 194 mg/dl (65-105)
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
== END 2025-02-14 16:43 | disposition home or self-care (01) | DRG 683 ==
LOC: ANHED 22:28 → ANH3MED 22:35 → ANH2MED 02-14 12:26 → ANH3MED 02-15 12:06
PROVIDERS: Emergency Medicine; General Practice; Internal Medicine Nephrology; Nurse Practitioner Adult Health; Nurse Practitioner Family; Admitting Provider Internal Medicine; Emergency Provider Preventive Medicine Aerospace Medicine; PCP Internal Medicine; Visit Provider Nurse Practitioner
DX: N17.9 Acute kidney failure, unspecified (principal); F33.1 Major depressive disorder, recurrent, moderate; I31.9 Disease of pericardium, unspecified; E86.0 Dehydration; N18.4 Chronic kidney disease, stage 4 (severe); R11.15 Cyclical vomiting syndrome unrelated to migraine; R19.7 Diarrhea, unspecified; B37.9 Candidiasis, unspecified; E83.52 Hypercalcemia; E11.22 Type 2 diabetes mellitus with diabetic chronic kidney disease; E66.01 Morbid (severe) obesity due to excess calories; E03.9 Hypothyroidism, unspecified; E78.5 Hyperlipidemia, unspecified; E53.8 Deficiency of other specified B group vitamins; F43.10 Post-traumatic stress disorder, unspecified; F41.1 Generalized anxiety disorder; H54.7 Unspecified visual loss; I12.9 Hypertensive chronic kidney disease with stage 1 through stage 4 chronic kidney disease, or unspecified chronic kidney disease; I45.10 Unspecified right bundle-branch block; K21.9 Gastro-esophageal reflux disease without esophagitis; K76.0 Fatty (change of) liver, not elsewhere classified; Z79.4 Long term (current) use of insulin; Z90.49 Acquired absence of other specified parts of digestive tract; Z20.822 Contact with and (suspected) exposure to COVID-19
CPT/HCPCS: 36415; 71046; 74176; 80048; 80053; 81001; 82550; 82570; 82948; 83036; 83690; 83735; 83880; 84100; 84132; 84156; 84300; 84443; 84484; 84540; 85025; 85027; 85999; 87040; 87449; 87637; 87899; 93005; 93308; 96361; 96365; 96366; 96367; 96372; 96375; 96376; 99212; 99285; A9270; G0378; G0463; J0360; J0500; J0696; J1171; J1450; J1630; J1650; J1815; J1836; J1956; J2060; J2405; J2470; J2550; J3030; J3475; J7030; J7120

== ENCOUNTER 2025-02-25 12:37 | Outpatient (CLI) | payer BC, SELFPAY ==
--- OUTSIDE RECORDS SUMMARY | 2025-02-25 12:39 | XMS_ITS | Encounter Summary ---
Author Organization [facility] Healthcare Address [address] [place] [address] Care Team Providers Care Golf Ball Molder Name Role Phone Jamaal Ibarra DO Primary Care Provider +1- [phone] Reason for Visit * Diagnostic Imaging (Routine) - Closed Specialty Diagnoses / Procedures Referred By Liz borrero Referred To Contact Procedures Breast Imaging US Outside Reference Saul Ortiz NP Phone: tel: fax: Referral ID Status Reason Start Date Expiration Date Visits Re quested Visits Authorized [id number] Closed 10/16/2022 11/15/2023 1 1 Encounter Details Date Type Department Care Team (Late st Contact Info) Description 07/15/2019 Hospital Encounter [facility] [place], [place] [id number] Social History Tobacco Use Types Packs/Day Years [...] on file Legal Sex Female 12:16 AM DONOR SERVICES TEAM 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 There will be no report generated by a [facility] Radiologist. Narrative [facility] - 10/16/2022 11:47 AM DONOR SERVICES TEAM LEADER EXAMINATION: Images For Reference Purposes Only us Saul Ortiz NP IMG MAMMO PROCEDURES Final Result [facility] documented in this encounter Visit Diagnoses Not on filedocumented in this encounter Care Teams Golf Ball Molder Relationship Specialty Start Date End Date Jamaal Ibarra DO PCP - General 10/22/17 documented as of this encounter
--- OUTSIDE RECORDS SUMMARY | 2025-02-25 12:39 | XMS_ITS | Encounter Summary ---
Author Organization [facility] Healthcare Address [address] [place] [address] Care Team Providers Care Human Resources Operations Director Name Role Phone Jamaal Ibarra DO Primary Care Provider +1- [phone] Reason for Visit * Diagnostic Imaging (Routine) - Closed Specialty Diagnoses / Procedures Referred By Liz borrero Referred To Contact Procedures Breast Imaging US Outside Reference Saul Ortiz NP Phone: tel: fax: Referral ID Status Reason Start Date Expiration Date Visits Re quested Visits Authorized [id number] Closed 10/16/2022 11/15/2023 1 1 Encounter Details Date Type Department Care Team (Late st Contact Info) Description 04/29/2020 Hospital Encounter 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 There will be no report generated by a [facility] Radiologist. Narrative [facility] - 10/16/2022 11:47 AM MATE FISHING VESSEL EXAMINATION: Images For Reference Purposes Only us Saul Ortiz NP IMG MAMMO PROCEDURES Final Result [facility] documented in this encounter Visit Diagnoses Not on filedocumented in this encounter Care Teams Human Resources Operations Director Relationship Specialty Start Date End Date Jamaal Ibarra DO PCP - General 10/22/17 documented as of this encounter
--- OUTSIDE RECORDS SUMMARY | 2025-02-25 12:39 | XMS_ITS | Encounter Summary ---
Author Organization [facility] Healthcare Address [address] [place] [address] Care Team Providers Care Pot Fluxer Name Role Phone Jamaal Ibarra DO Primary Care Provider +1- [phone] Reason for Visit * Diagnostic Imaging (Routine) - Closed Specialty Diagnoses / Procedures Referred By Liz borrero Referred To Contact Procedures Breast Imaging Screening Outside Reference Saul Ortiz NP Phone: tel: fax: Referral ID Status Reason Start Date Expiration Date Visits Re quested Visits Authorized [id number] Closed 10/16/2022 11/15/2023 1 1 Encounter Details Date Type Department Care Team (Late st Contact Info) Description 07/08/2019 Hospital Encounter [facility]iology [facility] [place], [place] [id number] Social History Tobacco Use Types Packs/Day Years [...] on file Legal Sex Female 12:16 AM COMMANDING OFFICER HOMICIDE SQUAD Gender Identity Not on file Sexual Orientation [...] CDT) Impressions [facility] - 10/16/2022 11:48 AM COMMANDING OFFICER HOMICIDE SQUAD These images are for Reference purposes only and have not been reviewed by [facility] Radiology. There will be no report generated by a [facility] Radiologist. Narrative [facility] - 10/16/2022 11:48 AM COMMANDING OFFICER HOMICIDE SQUAD EXAMINATION: Images For Reference Purposes Only us Saul Ortiz NP IMG MAMMO PROCEDURES Final Result [facility] documented in this encounter Visit Diagnoses Not on filedocumented in this encounter Care Teams Pot Fluxer Relationship Specialty Start Date End Date Jamaal Ibarra DO PCP - General 10/22/17 documented as of this encounter
--- OUTSIDE RECORDS SUMMARY | 2025-02-25 12:39 | XMS_ITS | Encounter Summary ---
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
--- OUTSIDE RECORDS SUMMARY | 2025-02-25 12:39 | XMS_ITS | Encounter Summary ---
Author Organization [facility] Healthcare Address [address] [place] [address] Care Team Providers Care Forest Pathology Teacher Name Role Phone Jamaal Ibarra DO Primary Care Provider +1- [phone] Reason for Visit * Diagnostic Imaging (Routine) - Closed Specialty Diagnoses / Procedures Referred By Liz borrero Referred To Contact Procedures Breast Imaging Diagnostic Outside Reference Saul Ortiz NP Phone: tel: fax: Referral ID Status Reason Start Date Expiration Date Visits Re quested Visits Authorized [id number] Closed 10/16/2022 11/15/2023 1 1 Encounter Details Date Type Department Care Team (Late st Contact Info) Description 07/15/2019 12:05 AM CDT Hospital Encounter [facility] [address] [place] [id number] Social History Tobacco Use Types Packs/Day Years [...] on file Legal Sex Female 12:16 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 There will be no report generated by a [facility] Radiologist. Narrative [facility] - 10/16/2022 11:47 AM CHIEF COOK EXAMINATION: Images For Reference Purposes Only us Saul Ortiz NP IMG MAMMO PROCEDURES Final Result [facility] documented in this encounter Visit Diagnoses Not on filedocumented in this encounter Care Teams Forest Pathology Teacher Relationship Specialty Start Date End Date Jamaal Ibarra DO PCP - General 10/22/17 documented as of this encounter
--- OUTSIDE RECORDS SUMMARY | 2025-02-25 12:39 | XMS_ITS | Encounter Summary ---
Author Organization [facility] Healthcare Address [address] [place] [address] Care Team Providers Care Oncology Technician Name Role Phone Jamaal Ibarra DO Primary Care Provider [phone]- [phone] Reason for Visit * Diagnostic Imaging (Routine) - Closed Specialty Diagnoses / Procedures Referred By Liz borrero Referred To Contact Procedures Breast Imaging Diagnostic Outside Reference Saul Ortiz NP Phone: tel: fax: Referral ID Status Reason Start Date Expiration Date Visits Re quested Visits Authorized [id number] Closed 10/16/2022 11/15/2023 1 1 Encounter Details Date Type Department Care Team (Late st Contact Info) Description 04/29/2020 12:05 AM CDT Hospital Encounter [facility]iology [facility] [address] [place] [address] Social History Tobacco Use Types Packs/Day Years [...] on file Legal Sex Female 12:16 AM 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 There will be no report generated by a [facility] Radiologist. Narrative [facility] - 10/16/2022 11:47 AM AGRICULTURE INSTRUCTOR EXAMINATION: Images For Reference Purposes Only us Saul Ortiz NP IMG MAMMO PROCEDURES Final Result [facility] documented in this encounter Visit Diagnoses Not on filedocumented in this encounter Care Teams Oncology Technician Relationship Specialty Start Date End Date Jamaal Ibarra DO PCP - General 10/22/17 documented as of this encounter
--- OUTSIDE RECORDS SUMMARY | 2025-02-25 12:40 | XMS_ITS | Clinical Summary ---
Author Organization [facility] Address [address] [place] [phone] Phone Care Team Providers Care Business Division Chair Name Role Phone JeanniesvetaJamaal jernigan Primary Care Provider [phone] Allergies Active Allergy Reactions Criticality Noted Date [...] 2 Active ergocalciferol (VITAMIN D2) 1.25 MG (15983 UT) capsule TAKE 1 CAPSULE BY MOUTH [...] Comments Blood Pressure 128/72 09/05/2022 8:31 AM SKID MACHINE OPERATOR Pulse - - Temperature 36.5 C (97.7 F) 09/05/2022 8:31 AM SKID MACHINE OPERATOR Respiratory Rate 18 09/05/2022 8:31 AM SKID MACHINE OPERATOR Oxygen Saturation - - Inhaled Oxygen Concentration - - Weight 121 kg (267 lb) 09/05/2022 8:31 AM SKID MACHINE OPERATOR Height 172.7 cm (5' 8 ) 09/05/2022 8:31 AM SKID MACHINE OPERATOR Body Mass Index 40.6 09/05/2022 8:31 AM SKID MACHINE OPERATOR Plan of Treatment Health Maintenance Due Date Last Done Comments Influenza Vaccine (Season Ended) 2025 07/07/2020, 07/30/2019, 07/16/2018, Additional history exists Insurance [facility] Care Teams Business Division Chair Relationship Specialty Start Date End Date Jamaal Ibarra DO [address] [place] [address] PCP - General Internal Medicine 05/07/22
--- OUTSIDE RECORDS SUMMARY | 2025-02-25 12:40 | XMS_ITS | CONTINUITY OF CARE DOCUMENT ---
Author Name shyanalili Address Unknown Organization [facility] Address [address] [place] [address] [address] [place] [address] Phone [phone] Care Team Providers Care Field Sampling Technician Name Role Phone Edwar JAY, Rigoberto Unavailable [phone] JANNETTE JAY, LAYTON Unavailable JANETH GUZMAN DO Unavailable INSURANCE PROVIDERS Payer name Policy type / Coverage type [place] red republican ID [facility] [id number]
--- OUTSIDE RECORDS SUMMARY | 2025-02-25 12:40 | XMS_ITS | Encounter Summary ---
Author Organization [facility] Address 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
--- OUTSIDE RECORDS SUMMARY | 2025-02-25 12:40 | XMS_ITS | Encounter Summary ---
Author Organization [facility] Address [address] [place] [address] Care Team Providers Care Security Installation Sales Technician Name Role Phone Jamaal Ibarra DO Primary Care Provider Encounter Details Date Type Department Care Team (Latest Contact Info) Description 03/23/2002 Outpatient Historical [facility] [place] [address] [place] [address] MENSTRUAL DISORDER NEC (Primary Dx) Social History Tobacco Use Types Packs/Day Years Used Date Smoking Tobacco: Never Assessed Comments Unknown Sex and Gender Information Value Date Recorded Sex Assigned at Not on file Legal Sex Female 3:50 AM INJECTION PRESS OPERATOR Gender Identity Not on file Sexual [...] documented as of this encounter Care Teams Security Installation Sales Technician Relationship Specialty Start Date End Date Jamaal Ibarra DO [address] [facility] [address] [place] [address] PCP - General Internal Medicine 07/11/18 documented as of this encounter
--- OUTSIDE RECORDS SUMMARY | 2025-02-25 12:40 | XMS_ITS | Encounter Summary ---
Author Organization [facility] Address [address] [place] [address] Phone Care Team Providers Care E Merchant Name Role Phone Jamaal Ibarra DO Primary Care Provider [phone] Encounter Details Date Type Department Care Team (Late st Contact Info) Description 10/18/[address] [place] [address] [place] [address] Era Taylor CMA Social History Tobacco Use Types Packs/Day Years Used Date Smoking Tobacco: Never Smokeless Tobacco: Never Comments Unknown Sex and Gender Information Value Date Recorded Sex Assigned at Not on file Legal Sex Female 12:16 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
--- OUTSIDE RECORDS SUMMARY | 2025-02-25 12:40 | XMS_ITS | Clinical Summary ---
Author Organization [facility] Address [address] [place] [address] Care Team Providers Care Sales Outfitter Name Role Phone Jamaal Ibarra DO Primary Care Provider [phone] Allergies Active Allergy Reactions Criticality Noted Date Comments Benazepril Other (See comments) Low 05/05/2008 Cough Latex Rash,Itching Medium 05/05/2008 Metronidazole Swelling Medium 10/17/2009 Metoclopramide Itching,Redness Medium 07/08/2019 Medications acyclovir (ZOVIRAX) 400 mg tablet 2 times daily. 4 Active amitriptyline (ELAVIL) 25 mg tablet TAKE 1 TABLET AT BEDTIME. 7 Active cyanocobalamin-cob amamide 5,000-100 mcg lozenge daily as needed 7 Active cyclobenzaprine (FLEXERIL) 10 mg tablet 4 Active metroNIDAZOLE (FLAGYL) 500 mg tablet daily as needed 8 Active ondansetron (ZOFRAN) 4 mg tablet take 1 tab po bid prn [address] (PROTONIX) 40 mg EC tablet Take 1 tab po bid 5 Active traZODone (DESYREL) 50 mg tablet TAKE 1 TABLET AT BEDTIME. 4 Active zolpidem (AMBIEN) 10 mg tabletIndications: Sleep-Onset Insomnia TAKE 1 TABLET AT BEDTIME NEEDED FOR SLEEP. 4 Active ALPRAZolam (XANAX) 0.5 mg tablet Take 2 tablets (1 mg total) by mouth 3 (three) times a day as needed for anxiety Active lancets miscIndications:Ty pe 1 diabetes mellitus with hyperglycemia (HCC) Testing 8 times daily 800 each 3 8 Active sertraline (ZOLOFT) 100 mg tablet Take 1 tablet (100 mg total) by mouth daily Active docusate sodium (COLACE) 100 mg capsuleIndications :constipation Take 1 capsule (100 mg total) by mouth 2 (two) times a day Active cranberry 400 mg capsule Take by mouth. Activ e geriatric multivitamin-min tabletIndications: One-A-Day WOmen's vitamin Take 1 tablet by mouth daily Active amLODIPine (NORVASC) 10 mg tablet Take 1 tablet (10 mg total) by mouth daily 0 Active metoprolol XL (TOPROL-XL) 50 mg extended release tablet 1 Active prazosin (MINIPRESS) 2 mg capsule Take 1 capsule (2 mg total) by mouth nightly 1 Active prochlorperazine (COMPAZINE) 10 mg tablet TAKE 1 TABLET BY MOUTH EVERY 4 TO 6 HOURS NEEDED FOR NAUSEA OR VOMITING 1 Active benzonatate (TESSALON) 100 mg capsule TAKE 1 CAPSULE BY MOUTH EVERY 8 HOURS NEEDED FOR COUGH 1 Active gabapentin (NEURONTIN) 300 mg capsule TAKE 1 CAPSULE(300 MG) BY MOUTH THREE TIMES DAILY 90 capsule 5 2 Active ketorolac (ACULAR) 0.5 % ophthalmic solution INSTILL 1 DROP IN LEFT EYE THREE TIMES DAILY. START AFTER SURGERY USE FOR 2 WEEKS 2 Active fluconazole (DIFLUCAN) 150 mg tablet Take 1 tablet (150 mg total) by mouth once 3 Active bumetanide (BUMEX) 0.5 mg tablet Take 1 tablet (0.5 mg total) by mouth daily 3 Active Rexulti 1 mg tablet Take 1 tablet (1 mg total) by mouth daily 3 Active ergocalciferol (VITAMIN D) 50,000 unit capsuleIndications :Vitamin D deficiency Take 1 capsule (50,000 Units total) by mouth 2 (two) times a week 24 capsule 3 3 Active glucagon (Baqsimi) 3 mg/actuation spray,non-aerosolI ndications:Type 1 diabetes mellitus with hyperglycemia (HCC) mg (one actuation) into a single nostril for low blood sugar that does not correct with oral intake or if confused; if no response, may repeat in 15 minutes using a new intranasal device. 2 each 1 4 Active prednisoLONE acetate (PRED FORTE) 1 % ophthalmic suspension Administer 1 drop into the right eye 4 (four) times a day 5 mL 11 4 Active pen needle, diabetic (BD Mer 2nd Gen Pen Needle) 32 gauge x needleIndications: Type 1 diabetes mellitus with hyperglycemia (HCC) USE TO ADMINSTER INSULIN 5 TIMES PER DAY 200 each 4 Active insulin glargine (LANTUS) 100 unit/mL (3 mL) pen for injectionIndicatio ns:Type 1 diabetes mellitus with hyperglycemia (HCC) INJECT 40 UNITS UNDER THE SKIN EVERY MORNING AND EVENING DAILY DIRECTED 30 mL 11 5 Active busPIRone (BUSPAR) 10 mg tablet 5 Active SEMGLEE-yfgn 100 unit/mL (3 mL) pen for injection 5 Active losartan (COZAAR) 100 mg tablet Take 1 tablet (100 mg total) by mouth daily 4 Active lubiprostone (AMITIZA) 24 mcg capsule 5 Active spironolactone (ALDACTONE) 25 mg tablet 5 Active topiramate (TOPAMAX) 25 mg capsule 4 Active blood-glucose meter kitIndications:Typ e 1 diabetes mellitus with hyperglycemia (HCC) Use daily or as directed for monitoring of diabetes 1 kit 5 Active blood glucose diagnostic strip Use to test blood sugar 4 times per day. And to calibrate CGM as needed 50 strip 2 5 Active blood-glucose sensor (FreeStyle Sharita 3 Plus Sensor) device Use a new sensor every 2 weeks for glucose monitoring 2 each 11 5 Active atorvastatin (LIPITOR) 20 mg tabletIndications: Hyperlipidemia, unspecified hyperlipidemia type TAKE 1 TABLET(20 MG) BY MOUTH DAILY 90 tablet 3 5 Active pioglitazone (ACTOS) 15 mg tabletIndications: Type 1 diabetes mellitus with hyperglycemia (HCC) TAKE 1 TABLET(15 MG) BY MOUTH DAILY 90 tablet 1 5 Active insulin aspart (NovoLOG) 100 unit/mL (3 mL) pen for injectionIndicatio ns:Type 1 diabetes mellitus with hyperglycemia (HCC) INJECT 18U UNDER SKIN THREE TIMES DAILY WITH MEALS, 4U WITH SNACKS PLUS SLIDING SCALE BASED ON PREMEAL SUGAR 2U/25PTS ABOVE 150. TTD 80 UNITS 75 mL 3 5 Active Active Problems Problem Noted Date Diagnosed Date Diabetes mellitus with nephropathy 09/17/2024 Vitreous hemorrhage of left eye 04/05/2024 Thyroid nodule 01/22/2024 SHANICE (obstructive sleep apnea) 01/27/2023 Mass of right breast 12/19/2022 Chronic fatigue 09/06/2021 Assessment & Plan (09/06/2021 9:49 AM COOPERER): -Fatigue is most likely multifactorial as she [...] 09/16/2017 Assessment & Plan (09/06/2021 9:45 AM COOPERER): -Taking weekly Vitamin D -Will repeat Vitamin D level Type 1 diabetes mellitus with hyperglycemia 03/2017 Nocturia 06/12/2017 Gastroesophageal reflux disease 10/27/2014 Seronegative rheumatoid arthritis 10/27/2014 Swelling of hand 10/27/2014 Fibroid 10/21/2014 Fibromyalgia 06/09/2014 Hypertension 04/27/2014 Assessment & Plan (09/06/2021 9:45 AM COOPERER): -BP today is 121/81 -Will continue same antihypertensive medications at this time. Hyperlipidemia 04/27/2014 Assessment & Plan (09/06/2021 9:45 AM COOPERER): -Will continue statin as it is being [...] 01/22/2023 Assessment & Plan (09/06/2021 9:45 AM COOPERER): -Currently taking MDI -A1C on 09/06/21 was [...] 06/12/201701/05 Assessment & Plan (09/06/2021 9:07 AM COOPERER): -States she has been off of LT4 for 2 years -Will repeat TFT. Encounters Date Type Department Care Team Description 02/11/2025 Orders Only [facility] [address] [place] [address] Kayla Conklin NP from Last 3 Months Immunizations Immunization Administration [...] on file Legal Sex Female 12:16 AM COOPERER Gender Identity Not on file Sexual Orientation Not on file Obstetrics History Para Term AB IAB SAB Ectopic Multiple Livin g Live Births 4 0 0 Date Outcome GA Total Labor Labor/2nd/3rd Weight Sex Type Anes PTL Rafia A1 A5 Name Clin Last Filed Vital Signs Vital Sign Reading Time Taken Comments Blood Pressure 138/81 10/23/2024 8:12 AM COOPERER Pulse 78 10/23/2024 8:12 AM COOPERER Temperature 36.7 C (98.1 F) 10/23/2024 8:12 AM COOPERER Respiratory Rate 18 04/04/2024 4:54 PM CDT Oxygen Saturation 95% 04/04/2024 4:54 PM CDT Inhaled Oxygen Concentration - - Weight 128.7 kg (283 lb 12.8 oz) 10/23/2024 8:12 AM COOPERER Height 172.7 cm (5' 8 ) 10/23/2024 8:12 AM COOPERER Body Mass Index 43.15 10/23/2024 8:12 AM COOPERER Plan of Treatment Health Maintenance Due Date Last Done Comments Colon Cancer Screening-Colonoscopy 1974 Depression Screening 1974 Foot Exam 1974 Regular Well Visit/Exam 18-64 1992 Pneumococcal vaccine <65 (1 of 2 - PCV) 1993 DTaP/Tdap/Td Vaccine (2 - Td or Tdap) 07/09/2022 07/09/2012, 09/17/2005 Breast Cancer Screening-Mammogram 01/12/2024 023, 09/22/2013 Zoster Vaccine (1 of 2) 2024 Albumin Creatinine Ratio, Urine 01/23/2025 , 03/13/2019 Lipid Panel 01/23/2025 01/24/2024, 10/08, 10/14/2017 [...] Procedure Name Priority Date/Time Associated Diagnosis Comments CARDIOLOGY DOCUMENT SCAN Routine 01/28/2025 11:20 AM CDT POCT HEMOGLOBIN A1C Routine 10/23/2024 8:29 AM COOPERER Type 1 diabetes mellitus with hyperglycemia (HCC) [...] Recently Relevant to Health Maintenance Results * Cardiology Document Scan (01/28/2025 11:20 AM CDT) Anatomical Region Laterality Modality Other Kayla Conklin NP CV CARDIAC SERVICES PROCEDUR ES Final Result * POCT hemoglobin A1c (10/23/2024 8:29 AM COOPERER) Hemoglobin A1C, POC 9.1 4.0 - 5.6 % Blood 10/23/2024 8:29 AM COOPERER Evelin Monzon NP POINT OF CARE TEST [...] BLOOD ORDERABLES Final Result Performing Organization Address [facility] Co de Phone Number [facility] Department [place] [address] * Albumin Creatinine Ratio, Urine (01/24/2024) Urine us Sarah Haskins MD LAB URINE ORDERABLES Final Resu lt Performing Organization Address [facility]/ZIP Co de Phone Number EXTERNAL LAB * TSH (01/24/2024) Blood Sarah Haskins MD LAB BLOOD ORDERABLES Final Resu lt Performing Organization Address [facility] Co de Phone Number EXTERNAL LAB * Lipid panel (01/24/2024) Blood Sarah Haskins MD LAB BLOOD ORDERABLES Final Resu lt Performing Organization Address [facility] Co de Phone Number EXTERNAL LAB [...] nipple by physician COMPARISON: Outside exams from [facility] 09/13/2022to 07/08/2019 TECHNIQUE: Full field digital mammographic [...] 07/12/2021 5:08 PM CDT Performed at: - [facility] [address] [id number] Toll Line Repairer: Link Myles PhD, Phone: [phone] us Lorrie aSavedra MD LAB MICROBIOLOGY - GENERAL ORD ERABLES Final Result [facility] from Last 3 Months or Most Recently Relevant to Health [place] [address] IDPA CHOICE PRF PPO [place] CHO[place] PRF [place] GENERIC COPAY ASSIST CHOICE PRF [place] WORK[place] COMPENSATION GENERIC WORKERS COMPENSATION GENERIC Care Teams Sales Outfitter Relationship Specialty Start Date End Date Jamaal Ibarra DO PCP - General 10/22/17
--- OUTSIDE RECORDS SUMMARY | 2025-02-25 12:40 | XMS_ITS | Clinical Summary ---
Author Organization [facility] Address [address] [place] [address] Care Team Providers Care Capacitor Inspector Name Role Phone Jamaal Ibarra DO Primary [...] Encounters Date Type Department Care Team Description 02/23/2025 External Device Data [facility] ABSTRACTION Provider, Abstract 02/09/2025 External Device Data [facility] ABSTRACTION Provider, Abstract 02/02/2025 External Device Data [facility] ABSTRACTION Provider, Abstract 02/02/2025 External Device Data [facility] ABSTRACTION Provider, Abstract 02/02/2025 External Device Data [facility] ABSTRACTION Provider, Abstract 01/29/2025 12:19 PM CDT - 02/02/2025 10:23 AM CDT Hospital Encounter [facility] Tra[facility] Surgery [address] [place] [phone] Citlalli Altamirano MD Pickrell, Aaron A, MD Hughes, Theresa, MD Keech, Dorinda Luo, Chronic ulcer of great toe of right foot, limited to breakdown of skin ([facility]) Discharge Disposition: Home or Self Care 01/29/2025 Mobile Encounter [facility] Adult Hospitalists [facility] [address] [place] [phone] Citlalli Altamirano MD from Last 3 Months [...] on file 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 WBC 8.9 4.0 - 9.8 K/uL 02/01/2025 9:40 AM CDT [facility] SERVICES [facility] RBC 3.61(L) 3.90 - 4.90 M/uL 02/01/2025 9:40 AM CDT [facility] SERVICES [facility] HEMOGLOBIN 10.4(L) 11.8 - 14.8 g/dL 02/01/2025 9:40 AM CDT [facility] SERVICES [facility] HEMATOCRIT 33.5(L) 35.5 - 44.0 % 02/01/2025 9:40 AM CDT [employer] LABORATORY SERVICES - [facility] MCV 92.8 82.0 - 99.0 fL 02/01/2025 9:40 AM CDT [employer] LABORATORY SERVICES - [facility] MCH 28.8 27.2 - 32.6 pg 02/01/2025 9:40 AM CDT [employer] LABORATORY SERVICES - [facility] MCHC 31.0(L) 31.5 - 35.5 g/dL 02/01/2025 9:40 AM CDT [employer] LABORATORY SERVICES - [facility] RDW 13.0 11.5 - 14.5 % 02/01/2025 9:40 AM CDT [employer] LABORATORY SERVICES - [facility] RDW-STDEV 43.9 37.1 - 48.7 fL 02/01/2025 9:40 AM CDT [employer] LABORATORY SERVICES - [facility] PLATELETS 278 140 - 350 K/uL 02/01/2025 9:40 AM CDT [employer] LABORATORY SERVICES - [facility] MPV 9.6 9.3 - 12.4 fL 02/01/2025 9:40 AM CDT [employer] LABORATORY SERVICES - [facility] NEUTROPHILS 76 % 02/01/2025 9:40 AM CDT [employer] LABORATORY SERVICES - [facility] LYMPHOCYTES 15 % 02/01/2025 9:40 AM CDT [employer] LABORATORY SERVICES - . [facility] MONOCYTES 5 % 02/01/2025 9:40 AM CDT [employer] LABORATORY SERVICES - . [facility] EOSINOPHILS 3 % 02/01/2025 9:40 AM CDT [employer] LABORATORY SERVICES - . [facility] BASOPHILS 1 % 02/01/2025 9:40 AM CDT [employer] LABORATORY SERVICES - . [facility] IMMATURE GRANULOCYTES 1 % 02/01/2025 9:40 AM CDT [employer] LABORATORY SERVICES - . [facility] Comment:IG (Immature Granulo cyte) count includes Metamyelocytes, Myelocytes, and Promyelocytes NEUTROPHIL ABSOLUTE 6.69 1.90 - 7.00 K/uL 02/01/2025 9:40 AM CDT [employer] LABORATORY SERVICES - . [facility] LYMPHOCYTE ABSOLUTE 1.36 0.70 - 4.50 K/uL 02/01/2025 9:40 AM CDT [employer] LABORATORY SERVICES - . [place] MONOCYTE ABSOLUTE 0.44 0.10 - 1.30 K/uL 02/01/2025 9:40 AM CDT [facility]ORATORY SERVICES - [facility] EOSINOPHIL ABSOLUTE 0.23 0.00 - 0.70 K/uL 02/01/2025 9:40 AM CDT [facility]ORATORY SERVICES - [facility] BASOPHILS ABSOLUTE 0.05 0.00 - 0.20 K/uL 02/01/2025 9:40 AM CDT [facility] SERVICES - . [facility] IMMATURE GRANULOCYTES ABSOLUTE 0.09(H) 0.00 - 0.03 K/uL 02/01/2025 9:40 AM CDT [facility]ORY SERVICES - [facility] Blood Venipuncture / Unknown 02/01/2025 8:41 AM CDT 02/01/2025 9:19 AM CDT Lee Ann Berman MD HEMATOLOGY ORDERABLES Final Re sult Performing Organization Address [facility] Co de Phone Number [facility]# [id number] [address] [place] [address] * (ABNORMAL) C-REACTIVE PROTEIN (02/01/2025 8:41 AM CDT) Only the most recent of2 resultswithin the time period is included. Pathologist [facility] CRP 19.8(H) <5.0 mg/L 02/01/2025 12:44 PM CDT [facility] Blood Venipuncture / Unknown 02/01/2025 8:41 AM CDT 02/01/2025 9:19 AM CDT Lee Ann Berman MD CHEMISTRY ORDERABLES Final Res ult Performing Organization Address [facility] Co de Phone Number [facility]# [id number] [address] [facility] [address] * (ABNORMAL) BASIC METABOLIC PANEL (02/01/2025 8:41 AM CDT) Only the most recent of3 resultswithin the time period is included. SODIUM 139 136 - 145 mmol/L 02/01/2025 10:01 AM [facility] POTASSIUM 3.6 3.5 - 5.0 mmol/L 02/01/2025 10:01 AM [facility] CHLORIDE 108(H) 98 - 107 mmol/L 02/01/2025 10:01 AM [facility] CO2 20(L) 22 - 29 mmol/L 02/01/2025 10:01 AM [facility] CALCIUM 9.8 8.6 - 10.2 mg/dL 02/01/2025 10:01 AM [facility] BUN 22(H) 6 - 20 mg/dL 02/01/2025 10:01 AM [facility] CREATININE 1.90(H) 0.51 - 0.95 mg/dL 02/01/2025 10:01 AM [facility] GLUCOSE 167(H) 74 - 99 mg/dL 02/01/2025 10:01 AM [facility] GFR 32(L) >=60 mL/min/1.7 3 sq meter 02/01/2025 10:01 AM [facility] Comment:eGFR calculated with 2020 CKD-EPI equation. Vegetarian diet, extremely high or low muscle mass, and may affect results. Cystatin C with Glomerular Filtration Rate is a suitable alternative for these patients. ANION GAP 11 8 - 16 mmol/L 02/01/2025 10:01 AM [facility] Blood Venipuncture / Unknown 02/01/2025 8:41 AM CDT 02/01/2025 9:19 AM T us Lee Ann Berman MD CHEMISTRY ORDERABLES Final Res ult [facility] CLIA# [id number] [address] [place], [place] [address] * (ABNORMAL) URINALYSIS WITH REFLEX MICROSCOPIC (01/31/2025 11:40 AM CDT) COLOR UA Pale Yellow Pale to Dark Yellow 01/31/2025 12:14 PM T [employer] LABORATORY SERVICES - [facility] CLARITY UA Clear Clear 01/31/2025 12:14 PM T [employer] LABORATORY SERVICES - [facility] SPECIFIC GRAVITY UA 1.006 1.003 - 1.035 01/31/2025 12:14 PM T [employer] LABORATORY SERVICES - [facility] PH UA 7.0 5.0 - 8.0 01/31/2025 12:14 PM T [employer] LABORATORY SERVICES - [facility] LEUKOCYTE ESTERASE UA Negative Negative 01/31/2025 12:14 PM T [employer] LABORATORY SERVICES - [facility] NITRITE UA Negative Negative 01/31/2025 12:14 PM T [employer] LABORATORY SERVICES - [facility] PROTEIN UA 2+(A) Negative 01/31/2025 12:14 PM T [employer] LABORATORY SERVICES - [facility] GLUCOSE UA Negative Negative 01/31/2025 12:14 PM T [employer] LABORATORY SERVICES - [facility] KETONES UA Negative Negative 01/31/2025 12:14 PM T [employer] LABORATORY SERVICES - [facility] UROBILINOGEN UA Normal <2.0 mg/dL 12:14 PM T [employer] LABORATORY SERVICES - [facility] BILIRUBIN UA Negative Negative 01/31/2025 12:14 PM T [employer] LABORATORY SERVICES - [facility] BLOOD UA Negative Negative 01/31/2025 12:14 PM T [employer] LABORATORY SERVICES - [facility] WBC UA 0-2 0 - 2 /hpf 01/31/2025 12:14 PM T [employer] LABORATORY SERVICES - . [facility] RBC UA 0-2 0 - 2 /hpf 01/31/2025 12:14 PM T [employer] LABORATORY SERVICES - [facility] BACTERIA UA Negative Negative /hpf 01/31/2025 12:14 PM T [employer] LABORATORY SERVICES - [facility] EPITHELIAL CELLS, URINE 0-5 0 - 5 /hpf 01/31/2025 12:14 PM T [employer] LABORATORY SERVICES - [facility] Urine URINE SPECIMEN OBTAINED BY CLEAN CATCH PROCEDURE / Unknown 01/31/2025 11:40 AM CDT 01/31/2025 11:40 AM CDT us Lee Ann Berman MD URINE ORDERABLES Final Result [facility]ORY SERVICES - [facility] MONISHA# [id number] [address] [facility] [address] [place] [address] * (ABNORMAL) CBC WITHOUT DIFFERENTIAL (01/31/2025 9:10 AM CDT) Only the most recent of2 resultswithin the time period is included. WBC 7.6 4.0 - 9.8 K/uL 01/31/2025 9:21 AM CDT [employer] LABORATORY SERVICES - [facility] RBC 3.54(L) 3.90 - 4.90 M/uL 01/31/2025 9:21 AM CDT [employer] LABORATORY SERVICES - [facility] HEMOGLOBIN 10.3(L) 11.8 - 14.8 g/dL 01/31/2025 9:21 AM CDT [employer] LABORATORY SERVICES - [facility] HEMATOCRIT 32.6(L) 35.5 - 44.0 % 01/31/2025 9:21 AM CDT [employer] LABORATORY SERVICES - [facility] MCV 92.1 82.0 - 99.0 fL 01/31/2025 9:21 AM CDT [employer] LABORATORY SERVICES - [facility] MCH 29.1 27.2 - 32.6 pg 01/31/2025 9:21 AM CDT [employer] LABORATORY SERVICES - [facility] MCHC 31.6 31.5 - 35.5 g/dL 01/31/2025 9:21 AM CDT [employer] LABORATORY SERVICES - [facility] PLATELETS 247 140 - 350 K/uL 01/31/2025 9:21 AM CDT [employer] LABORATORY SERVICES - [facility] MPV 9.7 9.3 - 12.4 fL 01/31/2025 9:21 AM CDT [employer] LABORATORY SERVICES - [facility] RDW 12.9 11.5 - 14.5 % 01/31/2025 9:21 AM CDT [employer] LABORATORY SERVICES - [facility] RDW-STDEV 43.7 37.1 - 48.7 fL 01/31/2025 9:21 AM CDT [employer] LABORATORY SERVICES - [facility] Blood Venipuncture / Unknown 01/31/2025 9:10 AM CDT 01/31/2025 9:14 AM CDT Parris Summers MD HEMATOLOGY ORDERABLES Final Result Performing Organization Address [facility] Co de Phone Number [facility]# [id number] [address] [employer] [facility] [facility] [place] [address] * MAGNESIUM LEVEL (01/31/2025 9:10 AM CDT) Only the most recent of2 resultswithin the time period is included. MAGNESIUM 1.8 1.6 - 2.6 mg/dL 01/31/2025 12:30 PM CDT [facility] [employer] [facility] Blood Venipuncture / Unknown 01/31/2025 9:10 AM CDT 01/31/2025 9:14 AM CDT Lee Ann Berman MD CHEMISTRY ORDERABLES Final Res ult Performing Organization Address [facility] Co de Phone Number [facility] [employer] [facility]# [id number] [address] [facility] [place] [address] * US VENOUS DOPPLER LEG BILATERAL (01/30/2025 1:52 PM CDT) Anatomical Region Laterality Modality Lower Extremity Ultrasound 01/30/2025 1:32 PM CDT Narrative 01/31/2025 7:55 AM CDT [address] [address] [email or web address] Venous Exam Complete Lower Extremity Duplex Patient: Jennifer Londono Study ID: [id number] Gender: F : 1975 Age: 49 Race: CAU Height Study Date: 01/30/2025 Weight: Access. #: [id number] *Referring Physician:Parris Li Aaron A *Ordering Physician:Parris LiManager Operations And Procurement:Lorrie Giraldo Indications: R/O DVT perordering provider. History: [...] mm Prepared and Electronically Authenticated Nii Dawkins [id number] Procedure Note Nii Dawkins MD - 01/31/2025 [address] [address] [place] [address] [email or web address] Venous Exam Complete Lower Extremity Duplex Patient: Jennifer Londono Study ID:[id number] Gender: F :1975 Age: 49 Race: CAU Height Study Date:01/30/2025 Weight: Access. #:[id number] *Referring Physician:* Parris Summers Aaron A *Ordering Physician:* Parris Summers *Manager Operations And Procurement:Lorrie Giraldo Indications: R/O DVT perordering provider. History: PMH: No prior study is available for comparison. Study data: [facility] Study status: Routine. Procedure: A vascular evaluation [...] mm Prepared and Electronically Authenticated Nii Dawkins [id number] Parris Summers MD US ORDERABLES Final Result * UREA NITROGEN/CREATININE RATIO, URINE (01/30/2025 9:53 AM CDT) UREA NITROGEN, URINE 429 mg/dL 01/30/2025 10:49 AM CDT [facility] [employer] [facility] Comment:Reference range not established CREATININE, URINE 60.4 29.0 - 226.0 mg/dL 01/30/2025 10:49 AM T [facility] [employer] [facility] Comment:Reference Range vari es with fluid intake and diet. UREA/CREAT RATIO, UR 7.1 Reference Range not established mg/mg Creatinine 01/30/2025 10:49 AM T [facility] [employer] [facility] Urine URINE SPECIMEN OBTAINED BY CLEAN CATCH PROCEDURE / Unknown Collection / Unknown 01/30/2025 9:53 AM CDT 01/30/2025 10:04 AM CDT Parris Summers MD URINE ORDERABLES Final Resul t [facility] [employer] [facility]# [id number] [address] [employer] [facility] [facility] [place] [address] * SODIUM, RANDOM URINE (01/30/2025 9:53 AM CDT) SODIUM, URINE 32 mmol/L 01/30/2025 10:40 AM CDT [facility] [employer] [facility] Comment:Reference range not established Urine URINE SPECIMEN OBTAINED BY CLEAN CATCH PROCEDURE / Unknown Collection / Unknown 01/30/2025 9:53 AM CDT 01/30/2025 10:04 AM CDT Parris Summers MD URINE ORDERABLES Final Resul t Performing Organization Address [facility]/ZIP Co de Phone Number [facility] CLIA# [id number] [address] [place] [address] * (ABNORMAL) PROTEIN/CREATININE RATIO, URINE (01/30/2025 9:53 AM CDT) PROTEIN CONCENTRATION 233(H) 0 - 20 mg/dL 01/30/2025 10:52 AM T [facility] CREATININE, URINE 61.1 29.0 - 226.0 mg/dL 01/30/2025 10:52 AM T [facility] [employer] [facility] Comment:Reference Range vari es with fluid intake and diet. PROTEIN/CREAT RATIO, URINE 3.81(H) 0.00 - 0.19 mg/mg Creatinine 01/30/2025 10:52 AM T [facility] [employer] [facility] Urine URINE SPECIMEN OBTAINED BY CLEAN CATCH PROCEDURE / Unknown Collection / Unknown 01/30/2025 9:53 AM CDT 01/30/2025 10:04 AM CDT Parris Summers MD URINE ORDERABLES Final Resul t Performing Organization Address City/[facility]/ZIP Co de Phone Number [facility] [employer] [facility] CLIA# [id number] [address] [place] [address] * OSMOLALITY, URINE (01/30/2025 9:53 AM CDT) OSMOLALITY, URINE 287 50 - 1,200 mOsm/kg 01/30/2025 10:30 AM T [facility] [employer] [facility] Urine URINE SPECIMEN OBTAINED BY CLEAN CATCH PROCEDURE / Unknown Collection / Unknown 01/30/2025 9:53 AM CDT 01/30/2025 10:04 AM CDT Narrative [facility] - 01/30/2025 10:30 AM CDT Reference range: 50-1200 mOsm/kg H2O, depending on fluid intake. Parris Summers MD URINE ORDERABLES Final Resul t Performing Organization Address [facility] Co de Phone Number [facility] CLIA# [id number] [address] [place] [address] * OSMOLALITY (01/29/2025 7:53 PM CDT) OSMOLALITY 300 275 - 300 mOsm/kg 01/29/2025 9:21 PM CDT [facility] Blood Venipuncture / Unknown 01/29/2025 7:53 PM CDT 01/29/2025 8:18 PM CDT Parris Summers MD CHEMISTRY ORDERABLES Final R esult Performing Organization Address [facility] de Phone Number [facility]# [id number] [address] [place] [address] * MRI FOOT WO CONTRAST RIGHT (01/29/2025 [...] the foot greatest dorsally. DICTATION LOCATION: Location [address] [place] [address] Narrative 01/30/2025 7:54 AM CDT MRI FOOT [...] foot greatest dorsally. DICTATION LOCATION: Location 2 - [facility] Parris Summers MD MR ORDERABLES Final Result * RESPIRATORY PATHOGEN PCR PANEL (01/29/2025 4:29 PM CDT) Pathologist [facility] [place] Respiratory Pathogen PCR Panel NOT DETECTED No respiratory pathogen nucleic acids detected. 01/29/2025 5:40 PM CDT [facility] [employer] [facility] COVID-19 PCR NOT DETECTED Not Detected 01/29/2025 5:40 PM CDT [facility] Upper Respiratory ENTIRE NASOPHARYNX / Unknown Collection / Unknown 01/29/2025 4:29 PM CDT 01/29/2025 4:44 PM CDT Narrative [facility] - 01/29/2025 5:40 PM CDT The Film [...] MICROBIOLOGY - GENERAL ORDER ISIAH Final Result [facility] [employer] [facility]# [id number] [address] [facility] [place] [address] * GI PATHOGEN PCR PANEL (01/29/2025 4:26 PM CDT) Pathologist [facility] [place] GI Pathogen PCR panel NOT DETECTED No nucleic acids detected. 01/29/2025 6:10 PM CDT [facility] Stool STOOL SPECIMEN / Unknown Collection / Unknown 01/29/2025 4:26 PM CDT 01/29/2025 4:37 PM CDT Narrative [facility] - 01/29/2025 6:10 PM CDT The Film [...] MICROBIOLOGY - GENERAL ORDER ISIAH Final Result [facility]# [id number] [address] [facility] [place] [address] * XR CHEST PA AND LATERAL 2 [...] TSH REFLEXIVE (01/29/2025 2:08 PM CDT) Pathologist [facility] [place] TSH 1.92 0.27 - 4.20 uIU/mL 01/29/2025 4:01 PM CDT [facility] Blood Venipuncture / Unknown 01/29/2025 2:08 PM CDT 01/29/2025 3:14 PM CDT Parris Summers MD CHEMISTRY ORDERABLES Final R esult [facility] [employer] [facility]# [id number] [address] [place] [address] * (ABNORMAL) IRON, TIBC, AND PERCENT SATURATION (01/29/2025 2:08 PM CDT) IRON 22(L) 37 - 145 ug/dL 01/29/2025 4:01 PM CDT [facility] TIBC 230(L) 250 - 450 ug/dL 01/29/2025 4:01 PM CDT [facility] IRON % SATURATION 10(L) 15 - 50 % 01/29/2025 4:01 PM CDT [facility] TRANSFERRIN 181(L) 200 - 360 mg/dL 01/29/2025 4:01 PM CDT [facility] Blood Venipuncture / Unknown 01/29/2025 2:08 PM CDT 01/29/2025 3:14 PM CDT Parris Summers MD CHEMISTRY ORDERABLES Final R esult Performing Organization Address [facility]/ZIP Co de Phone Number [facility] CLIA# [id number] [address] [place] [address] * (ABNORMAL) SEDIMENTATION RATE (01/29/2025 2:08 PM CDT) ESR (SEDIMENTATION RATE) 76(H) <=30 mm/Hr 01/29/2025 4:00 PM CDT [facility] [employer] [facility] Blood Venipuncture / Unknown 01/29/2025 2:08 PM CDT 01/29/2025 3:15 PM CDT Parris Summers MD HEMATOLOGY ORDERABLES Final Result Performing Organization Address [facility] Co de Phone Number [facility] [employer] [facility] CLIA# [id number] [address] [place] [address] * (ABNORMAL) HEMOGLOBIN A1C (01/29/2025 2:08 PM CDT) HEMOGLOBIN A1C 8.4(H) <5.7 % 01/29/2025 3:[address] [facility] EST. AVG GLUCOSE, A1C 194 mg/dL 01/29/2025 3:[address] [facility] Blood Venipuncture / Unknown 01/29/2025 2:08 PM CDT 01/29/2025 3:15 PM CDT Narrative [facility] - 01/29/2025 3:35 PM CDT HGB A1C INTERPRETATION NORMAL: <5.7% PRE-DIABETES: 5.7 - 6.4% DIABETES: 6.5% OR GREATER Parris Summers MD CHEMISTRY ORDERABLES Final R esult [facility] LABORATORY SERVICES - [facility]# [id number] [address] [place] [address] * (ABNORMAL) COMPREHENSIVE METABOLIC PANEL (01/29/2025 2:08 PM CDT) SODIUM 139 136 - 145 mmol/L 01/29/2025 4:01 PM T [facility]ATORY SERVICES - . [place] POTASSIUM 3.6 3.5 - 5.0 mmol/L 01/29/2025 4:01 PM T [facility]ORATORY SERVICES - . [place] CHLORIDE 109(H) 98 - 107 mmol/L 01/29/2025 4:01 PM [facility] LAB[facility]ATORY SERVICES - . [place] CO2 20(L) 22 - 29 mmol/L 01/29/2025 4:01 PM T [facility] LABORATORY SERVICES - . [place] CALCIUM 9.8 8.6 - 10.2 mg/dL 01/29/2025 4:01 PM T [facility]ATORY SERVICES - . [place] BUN 34(H) 6 - 20 mg/dL 01/29/2025 4:01 PM T [facility]ATORY SERVICES - . [place] CREATININE 2.51(H) 0.51 - 0.95 mg/dL 01/29/2025 4:01 PM T [facility]ATORY SERVICES - . [place] GLUCOSE 134(H) 74 - 99 mg/dL 01/29/2025 4:01 PM T [facility] - . [place] TOTAL PROTEIN 6.2(L) 6.7 - 8.6 g/dL 01/29/2025 4:01 PM T [facility] - [facility] [place] ALBUMIN 3.1(L) 3.5 - 5.2 g/dL 01/29/2025 4:01 PM T [facility] - [facility] [place] BILIRUBIN TOTAL 0.2(L) 0.3 - 1.2 mg/dL 01/29/2025 4:01 PM T [facility] - . [place] ALKALINE PHOSPHATASE 90 35 - 104 U/L 01/29/2025 4:01 PM [facility] - . [place] AST 8 <33 U/L 01/29/2025 4:01 PM [facility] ALT 9 <34 U/L 01/29/2025 4:01 PM [facility] GFR 23(L) >=60 mL/min/1.7 3 sq meter 01/29/2025 4:01 PM T [facility] Comment:eGFR calculated with 2020 CKD-EPI equation. Vegetarian diet, extremely high or low muscle mass, and may affect results. Cystatin C with Glomerular Filtration Rate is a suitable alternative for these patients. ANION GAP 10 8 - 16 mmol/L 01/29/2025 4:01 PM [facility] Blood Venipuncture / Unknown 01/29/2025 2:08 PM CDT 01/29/2025 3:14 PM CDT [facility]ative [facility] [facility] - 01/29/2025 4:01 PM CDT Samples containing indocyanine green cause interferences on Total and/or Direct Bilirubin and must not be measured. Parris Summers MD CHEMISTRY ORDERABLES Final R esult [facility]# [id number] [address] [employer] [facility] [place] [address] from Last [address] [place] [address] [facility] PREFERRED RX PR[employer]ER[employer] Commercial Advance Directives For more information, please contact: [phone] * Full Code (Latest Code Status on File) Date Activated Date Inactivated Comments 01/29/2025 1:42 PM 02/02/2025 12:23 PM Care Teams Capacitor Inspector Relationship Specialty Start Date End Date Jamaal Ibarra DO [address] [facility] [address] [place] [address] PCP - General Internal Medicine 07/11/18
--- OUTSIDE RECORDS SUMMARY | 2025-02-25 12:40 | XMS_ITS | Referral Summary ---
Author Organization [facility] Address [address] [place] [address] Care Team Providers Care Print Finisher Name Role Phone Jamaal Ibarra DO Primary Care Provider +1- [phone] Encounters Date Type Department Care Team Description 02/11/2025 Orders Only [facility] Cardiology [address] [place] [address] Kayla Conklin NP from Last 3 Months Allergies Active Allergy [...] 2nd Gen Pen Needle) 32 gauge x /32 needleIndications: Type 1 diabetes mellitus with hyperglycemia [...] 09/06/2021 Assessment & Plan (09/06/2021 9:49 AM INDUSTRIAL SALES MANAGER): -Fatigue is most likely multifactorial as she [...] 09/16/2017 Assessment & Plan (09/06/2021 9:45 AM INDUSTRIAL SALES MANAGER): -Taking weekly Vitamin D -Will repeat Vitamin D level Type 1 diabetes mellitus with hyperglycemia 03/2017 Nocturia 06/12/2017 Gastroesophageal reflux disease 10/27/2014 Seronegative rheumatoid arthritis 10/27/2014 Swelling of hand 10/27/2014 Fibroid 10/21/2014 Fibromyalgia 06/09/2014 Hypertension 04/27/2014 Assessment & Plan (09/06/2021 9:45 AM INDUSTRIAL SALES MANAGER): -BP today is 121/81 -Will continue same antihypertensive medications at this time. Hyperlipidemia 04/27/2014 Assessment & Plan (09/06/2021 9:45 AM INDUSTRIAL SALES MANAGER): -Will continue statin as it is being [...] 01/22/2023 Assessment & Plan (09/06/2021 9:45 AM INDUSTRIAL SALES MANAGER): -Currently taking MDI -A1C on 09/06/21 was [...] 06/12/201701/05 Assessment & Plan (09/06/2021 9:07 AM INDUSTRIAL SALES MANAGER): -States she has been off of LT4 [...] on file Legal Sex Female 12:16 AM INDUSTRIAL SALES MANAGER Gender Identity Not on file Sexual Orientation Not on file Last Filed Vital Signs Vital Sign Reading Time Taken Comments Blood Pressure 138/81 10/23/2024 8:12 AM INDUSTRIAL SALES MANAGER Pulse 78 10/23/2024 8:12 AM INDUSTRIAL SALES MANAGER Temperature 36.7 C (98.1 F) 10/23/2024 8:12 AM INDUSTRIAL SALES MANAGER Respiratory Rate 18 04/04/2024 4:54 PM CDT Oxygen Saturation 95% 04/04/2024 4:54 PM CDT Inhaled Oxygen Concentration - - Weight 128.7 kg (283 lb 12.8 oz) 10/23/2024 8:12 AM INDUSTRIAL SALES MANAGER Height 172.7 cm (5' 8 ) 10/23/2024 8:12 AM INDUSTRIAL SALES MANAGER Body Mass Index 43.15 10/23/2024 8:12 AM INDUSTRIAL SALES MANAGER Plan of Treatment Not on file Procedures Procedure Name Priority Date/Time Associated Diagnosis Comments CARDIOLOGY DOCUMENT SCAN Routine 01/28/2025 11:20 AM CDT POCT HEMOGLOBIN A1C Routine 10/23/2024 8:29 AM INDUSTRIAL SALES MANAGER Type 1 diabetes mellitus with hyperglycemia (HCC) [...] * POCT hemoglobin A1c (10/23/2024 8:29 AM INDUSTRIAL SALES MANAGER) Hemoglobin A1C, POC 9.1 4.0 - 5.6 % Blood 10/23/2024 8:29 AM INDUSTRIAL SALES MANAGER Evelin Monzon NP POINT OF CARE TEST [...] Dorman MD LAB BLOOD ORDERABLES Final Result [facility] Department [place] [address] * Albumin Creatinine Ratio, Urine (01/24/2024) Urine us Sarah Haskins MD LAB URINE ORDERABLES Final Resu lt Performing Organization Address [facility] Co de Phone Number EXTERNAL LAB * TSH (01/24/2024) Blood us Sarah Haskins MD LAB BLOOD ORDERABLES Final Resu lt Performing Organization Address [facility] de Phone Number EXTERNAL LAB * Lipid panel (01/24/2024) Blood Sarah Haskins MD LAB BLOOD ORDERABLES Final Resu lt Performing Organization Address [facility] de Phone Number EXTERNAL LAB * Diagnostic [...] nipple by physician COMPARISON: Outside exams from [facility] 09/13/2022to 07/08/2019 TECHNIQUE: Full field digital mammographic [...] - 07/12/2021 5:08 PM CDT Performed at: [facility] [id number] All Purpose Clerk: Link Myles PhD, Phone: [phone] us Lorrie Saavedra MD LAB MICROBIOLOGY - GENERAL ORD ERABLES Final Result [facility] - 01 from Last 3 Months or Most Recently Relevant to Health Maintenance Insurance [place] COPAY ASSIST [place] [employer] [employer] [employer] [place] [address] Care Teams Print Finisher Relationship Specialty Start Date End Date Jamaal Ibarra DO PCP - General 10/22/17
--- OUTSIDE RECORDS SUMMARY | 2025-02-25 12:40 | XMS_ITS | Clinical Summary ---
Author Organization [facility] Address [address] [facility] [place] [address] Care Team Providers Care Tower Truck Driver Name Role Phone Lebron Pugh V. DO Unavailable [phone] Jamaal Ibarra DO Primary Care Provider Source Comments [facility],non-owned Affiliates and Associated Physician Practices is amultiple site organization consisting of ambulatory clinics and hospital sitesin [place], [place], [place] and [place]. This disclosure is being [...] tablet 2 Active vitamin D, ergocalciferol, (DRISDOL) 28299 UNITS capsule 1 Active gabapentin (NEURONTIN) 300 MG capsule 2 Active simvastatin (ZOCOR) 20 MG tablet 1 Active traMADol (ULTRAM) 50 MG tablet 1 014 Active traZODone (DESYREL) 50 MG tablet 6 Active zolpidem (AMBIEN) 10 MG tablet 5 Active megestrol (MEGACE) 40 MG tablet Take 1 Tab by mouth once daily. 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 file Not on file Not on file Last Filed Vital Signs Vital Sign Reading Time Taken Comments Blood Pressure 126/74 10/21/2014 11:57 AM BOX LOADER Pulse 102 09/16/2013 1:06 PM BOX LOADER Temperature 36.8 C (98.2 F) 09/16/2013 1:06 PM BOX LOADER Respiratory Rate 20 09/16/2013 1:06 PM BOX LOADER Oxygen Saturation 98% 09/16/2013 1:06 PM BOX LOADER Inhaled Oxygen Concentration - - Weight 89.8 kg (198 lb) 10/21/2014 11:57 AM BOX LOADER Height 172.7 cm (5' 8 ) 10/21/2014 11:57 AM BOX LOADER Body Mass Index 30.11 10/21/2014 11:57 AM BOX LOADER Plan of Treatment Health Maintenance Due Date [...] 10/21/2015 10/21/2014, 08/07, 06/25/2012, Additional history exists DTAP/TDAP/TD VACCINES (3 - Td or Tdap) 07/09/2022 07/09/2012, 09/17/2005 COVID-19 VACCINE ( season) 2024 DEPRESSION SCREENING 10/07/2024 ZOSTER VACCINE (1 of 2) 2024 MAMMOGRAM 01/11/2025 01/11/2023, 05/2018, 09/22/2013, Additional history exists INFLUENZA VACCINE (Season Ended) 2025 07/07/2020, 07/30/2019, 07/16/2018, Additional history exists DIABETES-HGB A1C 07/31/2025 01/29/2025, , 01/22/2024, Additional history exists DIABETES - URINE PROTEIN SCREENING 01/30/2026 01/30/2025, 08/21/2013, 07/13/2012, Additional history exists DIABETES-SERUM CREATININE 02/01/20262024, 02/01/2025, 02/01/2025, Additional history exists DIABETES RETINOPATHY SCREENING 10/23/2026 10/23/2024, 08/14/2024, 06/19/2024, Additional history exists HIB VACCINE Aged Out [...] MRNA E6/E7 Routine 10/21/2014 1:52 PM BOX LOADER Routine gynecological examination MAMMO BILAT SCREENING Routine 09/22/2013 8:09 AM BOX LOADER Screening COMPREHENSIVE METABOLIC PANEL Routine 08/22/2013 8:00 AM BOX LOADER DM w/o Complication Type II, Uncontrolled HTN (hypertension), benign Abdominal pain, RUQ (right upper quadrant) Ketonuria HEMOGLOBIN A1C Routine 08/22/2013 8:00 AM BOX LOADER DM w/o Complication Type II, Uncontrolled MICROALB/CREAT RATIO URINE RANDOM PANEL Routine 08/21/2013 9:29 AM BOX LOADER DM w/o Complication Type II, Uncontrolled from Last 3 Months or Most Recently Relevant to Health Maintenance Results * PAP THIN PREP REFLX HPV (PO REF LAB) (10/21/2014 1:52 PM BOX LOADER) Clinical Information [facility] Comment:Routine exam LMP [facility] [...] has been evaluated with computer assisted technology. Cork Tile Floor Layer [facility] Comment: BKA, CT(ASCP) Test Performed at: [facility] [address] LAURENCE JO MD ENTIRE ENDOCERVIX / Unknown 10/21/2014 1:52 PM BOX LOADER 10/22/2014 10:09 AM BOX LOADER Bienvenido Mcnair Jr., MD LAB - PATHOLOGY/CYTOL OGY ORDERABLES Final Result [address] [address] * MAMM SCREENING DIGITAL IMAGE BILAT G0202 (09/22/2013 8:09 AM BOX LOADER) Anatomical Region Laterality Modality Breast Bilateral Mammography 09/22/2013 11:5 3 AM BOX LOADER Impressions 09/22/2013 11:56 AM BOX LOADER No malignant abnormality identified. No significant change. BI-RADS category 1. Negative. RECOMMENDATIONS: Routine mammograms in one year. Narrative 09/22/2013 11:56 AM BOX LOADER Screening mammogram: HISTORY: Screening mammogram. Two views [...] (ABNORMAL) HEMOGLOBIN A1C (08/22/2013 8:00 AM BOX LOADER) Hemoglobin A1c 12.6(H) <5.7 % of total [...] of diabetes for children. Test Performed at: [facility] [address] [facility] [place] [address] PAPO BENNETT DO,MPH Whole blood specimen (specimen) BLOOD SPECIMEN / Unknown 08/22/2013 4:53 AM BOX LOADER Salma Hunt TOP FORMER-MAJOR ASSEMBLER LAB - CHEMISTRY ORDERA BLES Final Result [facility] [address] [place] [address] * (ABNORMAL) COMPREHENSIVE METABOLIC PANEL (08/22/2013 8:00 AM BOX LOADER) Glucose 312(H) 65 - 99 mg/dL [facility] [...] 29 U/L [facility] Comment: Test Performed at: [facility] [address] [place] [address] PAPO BENNETT DO,MPH Blood specimen (specimen) BLOOD SPECIMEN / Unknown 08/22/2013 4:53 AM BOX LOADER Salma Llanos Marilee TOP FORMER-MAJOR ASSEMBLER LAB - CHEMISTRY ORDERA BLES Final Result Performing Organization Address [facility] de Phone Number [facility] [address] [place] [address] * (ABNORMAL) MICROALB/CREAT RATIO URINE RANDOM PANEL (08/21/2013 9:29 AM BOX LOADER) Creatinine Urine 129 20 - 320 mg/dL [...] within a diagnostic category. Test Performed at: [facility] [address] [place] [address] PAPO BENNETT DO,MPH Urine specimen (specimen) URINE SPECIMEN OBTAINED BY CLEAN CATCH PROCEDURE / Unknown 08/21/2013 9:29 AM BOX LOADER 08/22/2013 4:16 AM BOX LOADER Salma Llanos Marilee TOP FORMER-MAJOR ASSEMBLER LAB - URINE CHEMISTRY ORDERABLES Final Result Performing Organization Address [facility] Co de Phone Number [facility] [address] [place] [address] from Last 3 Months or Most Recently Relevant to Health Maintenance Insurance ANTHEM ANTHEM Advance Directives * FULL RESUSCITATION (Latest Code Status on File) Date Activated Date Inactivated Comments 05/06/2011 1:35 AM 05/08/2011 5:46 AM Care Teams Tower Truck Driver Relationship Specialty Start Date End Date Jamaal Ibarra DO [address] [place] [address] PCP - General 06/01/21 Lebron Pugh DO [address] [place] [address] Oncology 06/23/07
--- OUTSIDE RECORDS SUMMARY | 2025-02-25 12:40 | XMS_ITS | Encounter Summary ---
Author Organization [facility] Address [address] [place] [address] Phone Care Team Providers Care Lead Custodian Name Role Phone Jamaal Ibarra DO Primary Care Provider +1- [phone] Encounter Details Date Type Department Care Team (Late st Contact Info) Description 08/03/2021 Orders Only [facility] Rheumatology [address] [facility] Medicine 5th [place] [address] [place] [id number] Jana Medley CMA Social History Tobacco Use Types Packs/Day Years Used Date Smoking Tobacco: Never Comments Unknown Sex and Gender Information Value Date Recorded Sex Assigned at Not on file 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
[2025-02-25 19:18] LABS: Albumin Level 4.3 g/dL (3.5-5.1); Anion Gap 13 mmol/L (4-12); Blood Urea Nitrogen 42 mg/dL (7-17); Calcium 10.2 mg/dL (8.4-10.2); Carbon Dioxide 26 mmol/L (22-30); Chloride 96 mmol/L (98-107); Estimated Glomerular Filt Rate 13; Glucose 362 mg/dL (65-110); Phosphorus 3.6 mg/dL (2.5-4.5); Potassium 3.7 mmol/L (3.4-5.0); Sodium 135 mmol/L (137-145)
== END 2025-02-25 12:38 | disposition home or self-care (01) ==
LOC: ANHGOSHLAB 12:37
PROVIDERS: PCP Internal Medicine; Visit Provider Internal Medicine Nephrology
DX: N18.32 Chronic kidney disease, stage 3b (principal)
CPT/HCPCS: 36415; 80069

== ENCOUNTER 2025-03-06 15:47 | Emergency (ER) | payer BC, SELFPAY ==
--- OUTSIDE RECORDS SUMMARY | 2025-03-06 15:50 | XMS_ITS | Encounter Summary ---
Author Organization [facility] Healthcare Address [address] [place] [address] Care Team Providers Care Superintendent Operations Division Name Role Phone Jamaal Ibarra DO Primary Care Provider +1- [phone] Reason for Visit * Diagnostic Imaging (Routine) - Closed Specialty Diagnoses / Procedures Referred By Liz borrero Referred To Contact Procedures Breast Imaging US Outside Reference Saul Ortiz NP Phone: tel: fax: Referral ID Status Reason Start Date Expiration Date Visits Re quested Visits Authorized [id number] Closed 10/16/2022 11/15/2023 1 1 Encounter Details Date Type Department Care Team (Late st Contact Info) Description 04/29/2020 Hospital Encounter [facility] [address] [place] [address] Social History Tobacco Use Types Packs/Day [...] on file Legal Sex Female 12:16 AM CIRCULAR KNITTER Gender Identity Not on file Sexual Orientation [...] CDT) Impressions [facility] - 10/16/2022 11:47 AM CIRCULAR KNITTER These images are for Reference purposes only and have not been reviewed by [facility]. There will be no report generated by a [facility] Radiologist. Narrative [facility] - 10/16/2022 11:47 AM CIRCULAR KNITTER EXAMINATION: Images For Reference Purposes Only us Saul Ortiz NP IMG MAMMO PROCEDURES Final Result [facility] documented in this encounter Visit Diagnoses Not on filedocumented in this encounter Care Teams Superintendent Operations Division Relationship Specialty Start Date End Date Jamaal Ibarra DO PCP - General 10/22/17 documented as of this encounter
--- OUTSIDE RECORDS SUMMARY | 2025-03-06 15:50 | XMS_ITS | Encounter Summary ---
Author Organization [facility] Healthcare Address [address] [place] [address] Care Team Providers Care Picture Painter Name Role Phone Jamaal Ibarra DO Primary Care Provider +1- [phone] Reason for Visit * Diagnostic Imaging (Routine) - Closed Specialty Diagnoses / Procedures Referred By Liz borrero Referred To Contact Procedures Breast Imaging Diagnostic Outside Reference Saul Ortiz NP Phone: tel: fax: Referral ID Status Reason Start Date Expiration Date Visits Re quested Visits Authorized [id number] Closed 10/16/2022 11/15/2023 1 1 Encounter Details Date Type Department Care Team (Late st Contact Info) Description 04/29/2020 12:05 AM CDT Hospital Encounter [facility] [address] [place] [address] Social History Tobacco Use Types Packs/Day Years [...] on file Legal Sex Female 12:16 AM BENCH SHEAR OPERATOR Gender Identity Not on file Sexual [...] CDT) Impressions [facility] - 10/16/2022 11:47 AM BENCH SHEAR OPERATOR These images are for Reference purposes only and have not been reviewed by [facility]. There will be no report generated by a [facility] Radiologist. Narrative [facility] - 10/16/2022 11:47 AM BENCH SHEAR OPERATOR EXAMINATION: Images For Reference Purposes Only us Saul Ortiz NP IMG MAMMO PROCEDURES Final Result [facility] documented in this encounter Visit Diagnoses Not on filedocumented in this encounter Care Teams Picture Painter Relationship Specialty Start Date End Date Jamaal Ibarra DO PCP - General 10/22/17 documented as of this encounter
--- OUTSIDE RECORDS SUMMARY | 2025-03-06 15:50 | XMS_ITS | Encounter Summary ---
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
--- OUTSIDE RECORDS SUMMARY | 2025-03-06 15:50 | XMS_ITS | Referral Summary ---
Author Organization [facility] Address [address] [place] [address] Care Team Providers Care Piping Supervisor Name Role Phone Jamaal Ibarra DO Primary Care Provider [phone]- [phone] Encounters Date Type Department Care Team Description 03/03/2025 2:00 PM CDT Office Visit [facility] Endocrinology Metabolism and Lipid [address] 13th [place] [address] [place] [address] Sarah Haskins MD Type 1 diabetes mellitus with hyperglycemia (HCC) (Primary Dx); Hyperlipidemia, unspecified hyperlipidemia type; Vitamin D deficiency; Thyroid nodule 02/26/2025 11:15 AM CDT Procedure visit [facility] Ophthalmology 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 Active amitriptyline (ELAVIL) 25 mg tablet TAKE 1 TABLET AT BEDTIME. Active cyanocobalamin-co bamamide 5,000-100 mcg lozenge daily as needed Active cyclobenzaprine (FLEXERIL) 10 mg tablet Active ondansetron (ZOFRAN) 4 mg tablet take 1 tab po bid prn Active pantoprazole DR (PROTONIX) 40 mg EC tablet Take 1 tab po bid Active traZODone (DESYREL) 50 mg tablet TAKE 1 TABLET AT BEDTIME. Active zolpidem (AMBIEN) 10 mg tabletIndications :Sleep-Onset Insomnia TAKE 1 TABLET AT BEDTIME NEEDED FOR SLEEP. Active ALPRAZolam (XANAX) 0.5 mg tablet Take 2 tablets (1 mg total) by mouth 3 (three) times a day as needed for anxiety Active lancets miscIndications:T ype 1 diabetes mellitus with hyperglycemia (HCC) Testing 8 times daily 800 each 3 Active sertraline (ZOLOFT) 100 mg tablet Take 1 tablet (100 mg total) by mouth daily Active docusate sodium (COLACE) 100 mg capsuleIndication s:constipation Take 1 capsule (100 mg total) by mouth 2 (two) times a day Active cranberry 400 mg capsule Take by mouth. Active geriatric multivitamin-min tabletIndications :One-A-Day WOmen's vitamin Take 1 tablet by mouth daily Active prazosin (MINIPRESS) 2 mg capsule Take 1 capsule (2 mg total) by mouth nightly Active prochlorperazine (COMPAZINE) 10 mg tablet TAKE 1 TABLET BY MOUTH EVERY 4 TO 6 HOURS NEEDED FOR NAUSEA OR VOMITING Active benzonatate (TESSALON) 100 mg capsule TAKE 1 CAPSULE BY MOUTH EVERY 8 HOURS NEEDED FOR COUGH Active ketorolac (ACULAR) 0.5 % ophthalmic solution INSTILL 1 DROP IN LEFT EYE THREE TIMES DAILY. START AFTER SURGERY USE FOR 2 WEEKS Active bumetanide (BUMEX) 0.5 mg tablet Take 1 tablet (0.5 mg total) by mouth daily 023 Active Rexulti 1 mg tablet Take 1 tablet (1 mg total) by mouth daily 023 Active ergocalciferol (VITAMIN D) 50,000 unit capsuleIndication s:Vitamin D deficiency Take 1 capsule (50,000 Units total) by mouth 2 (two) times a week 24 capsule 3 023 Active prednisoLONE acetate (PRED FORTE) 1 % ophthalmic suspension Administer 1 drop into the right eye 4 (four) times a day 5 mL 11 024 Active pen needle, diabetic (BD Mer 2nd Gen Pen Needle) 32 gauge x needleIndications :Type 1 diabetes mellitus with hyperglycemia (HCC) USE TO ADMINSTER INSULIN 5 TIMES PER DAY 200 each 024 Active busPIRone (BUSPAR) 10 mg tablet 025 Active SEMGLEE-yfgn 100 unit/mL (3 mL) pen for injection 025 Active lubiprostone (AMITIZA) 24 mcg capsule 025 Active spironolactone (ALDACTONE) 25 mg tablet 025 Active topiramate (TOPAMAX) 25 mg capsule 024 Active blood-glucose meter kitIndications:Ty pe 1 diabetes mellitus with hyperglycemia (HCC) Use daily or as directed for monitoring of diabetes 1 kit 025 Active blood glucose diagnostic strip Use to test blood sugar 4 times per day. And to calibrate CGM as needed 50 strip 2 025 Active atorvastatin (LIPITOR) 20 mg tabletIndications :Hyperlipidemia, unspecified hyperlipidemia type TAKE 1 TABLET(20 MG) BY MOUTH DAILY 90 tablet 3 025 Active pioglitazone (ACTOS) 15 mg tabletIndications :Type 1 diabetes mellitus with hyperglycemia (HCC) TAKE 1 TABLET(15 MG) BY MOUTH DAILY 90 tablet 1 025 Active insulin aspart (NovoLOG) 100 unit/mL (3 mL) pen for injectionIndicati ons:Type 1 diabetes mellitus with hyperglycemia (HCC) INJECT 18U UNDER SKIN THREE TIMES DAILY WITH MEALS, 4U WITH SNACKS PLUS SLIDING SCALE BASED ON PREMEAL SUGAR 2U/25PTS ABOVE 150. TTD 80 UNITS 75 mL 3 04/14/2 025 Active carvediloL (COREG) 6.25 mg tablet Take 1 tablet (6.25 mg total) by mouth 2 times daily Active hydrALAZINE (APRESOLINE) 50 mg tablet Take 1 tablet (50 mg total) by mouth every 8 (eight) hours Active amLODIPine (NORVASC) 5 mg tablet Take 1 tablet (5 mg total) by mouth daily Active FreeStyle Sharita 3 Plus Sensor deviceIndications :Type 1 diabetes mellitus with hyperglycemia (HCC) Use a new sensor every 2 weeks for glucose monitoring 2 each Active glucagon (Baqsimi) 3 mg/actuation spray,non-aerosol Indications:Type 1 diabetes mellitus with hyperglycemia (HCC) mg (one actuation) into a single nostril for low blood sugar that does not correct with oral intake or if confused; if no response, may repeat in 15 minutes using a new intranasal device. 2 each Active metroNIDAZOLE (FLAGYL) 500 mg tablet daily as needed 018 2024 Discontinued amLODIPine (NORVASC) 10 mg tablet Take 1 tablet (10 mg total) by mouth daily 020 2024 Discontinued(T herapy completed) metoprolol XL (TOPROL-XL) 50 mg extended release tablet 021 2024 Discontinued(T herapy completed) gabapentin (NEURONTIN) 300 mg capsule TAKE 1 CAPSULE(300 MG) BY MOUTH THREE TIMES DAILY 90 capsule 5 022 2024 Discontinued fluconazole (DIFLUCAN) 150 mg tablet Take 1 tablet (150 mg total) by mouth once 023 2024 Discontinued glucagon (Baqsimi) 3 mg/actuation spray,non-aerosol Indications:Type 1 diabetes mellitus with hyperglycemia (HCC) mg (one actuation) into a single nostril for low blood sugar that does not correct with oral intake or if confused; if no response, may repeat in 15 minutes using a new intranasal device. 2 each 1 024 2024 Discontinued(R eorder) insulin glargine (LANTUS) 100 unit/mL (3 mL) pen for injectionIndicati ons:Type 1 diabetes mellitus with hyperglycemia (HCC) INJECT 40 UNITS UNDER THE SKIN EVERY MORNING AND EVENING DAILY DIRECTED 30 mL 025 2024 Discontinued losartan (COZAAR) 100 mg tablet Take 1 tablet (100 mg total) by mouth daily 024 2024 Discontinued blood-glucose sensor (FreeStyle Sharita 3 Plus Sensor) device Use a new sensor every 2 weeks for glucose monitoring 2 each 025 2024 Discontinued(Camryn merida) Hospital, Clinic, or Other Facility Administered Medication Ordered Dose Route Frequency Start Date End Date Status aflibercept syringe (EYLEA) 2 mg/0.05 mL intraocular syringe 2 mgIndications:Prolif erative diabetic retinopathy of left eye with macular edema associated with type 1 diabetes mellitus (HCC) 2 mg One-Time Injection 02/26/2025 02/26/2025 Ended Active Problems Problem Noted Date Diagnosed Date Diabetes mellitus with nephropathy 09/17/2024 Vitreous hemorrhage of left eye 04/05/2024 Thyroid nodule 01/22/2024 SHANICE (obstructive sleep apnea) 01/27/2023 Mass of right breast 12/19/2022 Chronic fatigue 09/06/2021 Assessment & Plan (09/06/2021 9:49 AM UI APPLICATION DEVELOPER): -Fatigue is most likely multifactorial as she [...] 09/16/2017 Assessment & Plan (09/06/2021 9:45 AM UI APPLICATION DEVELOPER): -Taking weekly Vitamin D -Will repeat Vitamin D level Type 1 diabetes mellitus with hyperglycemia 03/2017 Nocturia 06/12/2017 Gastroesophageal reflux disease 10/27/2014 Seronegative rheumatoid arthritis 10/27/2014 Swelling of hand 10/27/2014 Fibroid 10/21/2014 Fibromyalgia 06/09/2014 Hypertension 04/27/2014 Assessment & Plan (09/06/2021 9:45 AM UI APPLICATION DEVELOPER): -BP today is 121/81 -Will continue same antihypertensive medications at this time. Hyperlipidemia 04/27/2014 Assessment & Plan (09/06/2021 9:45 AM UI APPLICATION DEVELOPER): -Will continue statin as it is being [...] 01/22/2023 Assessment & Plan (09/06/2021 9:45 AM UI APPLICATION DEVELOPER): -Currently taking MDI -A1C on 09/06/21 was [...] 06/12/201701/05 Assessment & Plan (09/06/2021 9:07 AM UI APPLICATION DEVELOPER): -States she has been off of LT4 [...] Tobacco: Never Tobacco Cessation:Counseling Given: Not Answered Personal Safety Answer Date Recorded Have you ever been in or are you currently in a harmful physical or emotional relationship or is someone making you feel afraid or unsafe? Denies 04/04/2024 Comments No Sex and Gender Information Value Date Recorded Sex Assigned at Not on file Legal Sex Female 12:16 AM UI APPLICATION DEVELOPER Gender Identity Not on file Sexual Orientation Not on file Last Filed Vital Signs Vital Sign Reading Time Taken Comments Blood Pressure 127/79 03/03/2025 1:51 PM CDT Pulse 103 03/03/2025 1:51 PM CDT Temperature 36.8 C (98.2 F) 03/03/2025 1:51 PM CDT Respiratory Rate 18 04/04/2024 4:54 PM CDT Oxygen Saturation 95% 04/04/2024 4:54 PM CDT Inhaled Oxygen Concentration - - Weight 117.4 kg (258 lb 12.8 oz) 03/03/2025 1:51 PM CDT Height 172.7 cm (5' 8) 03/03/2025 1:51 PM CDT Body Mass Index 39.35 03/03/2025 1:51 PM CDT Plan of Treatment Not on file Procedures Procedure Name Priority Date/Time Associated Diagnosis Comments POCT GLUCOSE 36650 Routine 03/03/2025 1: 56 PM CDT Type 1 diabetes mellitus with hyperglycemia (HCC) INTRAVITREAL INJECTION, PHARMACOLOGIC AGENT - OS - LEFT EYE Routine 02/26/2025 4:59 PM CDT 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 (HCC) OCT, RETINA - OU - BOTH EYES Routine 02/26/2025 12:23 PM CDT 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 CARDIOLOGY DOCUMENT SCAN Routine 01/28/2025 11:20 AM CDT POCT HEMOGLOBIN A1C Routine 10/23/2024 8 :29 AM UI APPLICATION DEVELOPER Type 1 diabetes mellitus with hyperglycemia (HCC) [...] Relevant to Health Maintenance Results * POCT glucose (03/03/2025 1:56 PM CDT) Glucose Blood, POC 377 Normal Fasting 70 - 100, Random <200 mg/dL Blood 03/03/2025 1:56 PM CDT Sarah Haskins MD POINT OF CARE TEST ORDERABLES F inal Result * Intravitreal Injection, Pharmacologic Agent - OS - Left Eye (02/26/2025 4:59 PM CDT) Anatomical Region Laterality Modality Head Other Narrative 02/26/2025 4:59 PM CDT Time Out Informed consent was obtained after [...] mg/0.05 mL Route: intravitreal, Site: Left Eye [facility]: [id number], Lot: [id number], Expiration date: 04/05/2026, Waste: 0 mL Medication Billing The medication administered today will be billed to the patient or insurance. The medication administered today was not a sample. The patient will not be utlizing the patient assistance program. Post-op Post injection exam found visual acuity is at least hand motion. the patient tolerated the procedure. there were no complications during today's treatment. The patient received written and verbal post procedure care education. Post injection medications were not given. The attending physician was present for the entire procedure. Notes Consent for Eylea OS signed 05/08/2024.iM AC tap 0.1 mL Steven Edmonds MD OPHTH CLINIC PROCEDURES Fi nal Result * OCT, Retina - OU - Both Eyes (02/26/2025 12:23 PM CDT) Anatomical Region Laterality Modality Head Optical Coherenc e Tomography Narrative 02/26/2025 12:23 PM CDT Right Eye Scan locations included subfoveal. Left Eye Quality was good. Scan locations included subfoveal. Notes OD: no signal OS: no CME; partial VMA; no VH; no central DME Steven Edmonds MD OPHTH TOMOGRAPHY Final Res ult * Cardiology Document Scan (01/28/2025 11:20 AM CDT) Anatomical Region Laterality Modality Other Kayla Conklin NP CV CARDIAC SERVICES PROCEDUR ES Final Result * (ABNORMAL) eGFR (04/04/2024 5:59 [...] BLOOD ORDERABLES Final Result Performing Organization Address [facility] Co de Phone Number [facility] Department [place] [address] * Albumin Creatinine Ratio, Urine (01/24/2024) Urine Sarah Haskins MD LAB URINE ORDERABLES Final Resu lt Performing Organization Address [facility] Co de Phone Number EXTERNAL LAB * TSH (01/24/2024) Blood Sarah Haskins MD LAB BLOOD ORDERABLES Final Resu lt Performing Organization Address City/[facility] Co de Phone Number EXTERNAL LAB * Lipid panel (01/24/2024) Blood Sarah Haskins MD LAB BLOOD ORDERABLES Final Resu lt Performing Organization Address [facility] Co de Phone Number EXTERNAL LAB * [...] nipple by physician COMPARISON: Outside exams from [place] 09/13/2022to 07/08/2019 TECHNIQUE: Full field digital mammographic [...] exam and her questions were answered. us Eliudantoinette Sara Ortiz GLASS PRESSER IMG MAMMO PROCEDURES Final Result * Hepatitis [...] 07/12/2021 5:08 PM CDT Performed at: - [address] [id number] Manager Camp: Link Myles PhD, Phone: [phone] us Lorrie Saavedra MD LAB MICROBIOLOGY - GENERAL ORD ERABLES Final Result [facility] - 01 from Last 3 Months or Most Recently Relevant to Health Maintenance [place] [address] [employer] CHOICE PRF [place]F [place] GENERIC COPAY ASSIST CHOICE PRF [place] WORKERS COMPENSATION GENERIC WORKERS COMPENSATION GENERIC Care Teams Piping Supervisor Relationship Specialty Start Date End Date Jamaal Ibarra DO PCP - General 10/22/17
--- OUTSIDE RECORDS SUMMARY | 2025-03-06 15:50 | XMS_ITS | Encounter Summary ---
Author Organization [facility] Healthcare Address [address] [place] [address] Care Team Providers Care Cow Puncher Name Role Phone Jamaal Ibarra DO Primary Care Provider [phone]- [phone] Reason for Visit * Diagnostic Imaging (Routine) - Closed Specialty Diagnoses / Procedures Referred By Liz borrero Referred To Contact Procedures Breast Imaging Screening Outside Reference Saul Ortiz NP Phone: tel: fax: Referral ID Status Reason Start Date Expiration Date Visits Re quested Visits Authorized [id number] Closed 10/16/2022 11/15/2023 1 1 Encounter Details Date Type Department Care Team (Late st Contact Info) Description 07/08/2019 Hospital Encounter [facility] [place], [place] [id number] Social History Tobacco Use Types Packs/Day Years [...] on file Legal Sex Female 12:16 AM SPINNING MACHINE 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 There will be no report generated by a [facility] Radiologist. Narrative [facility] - 10/16/2022 11:48 AM SPINNING MACHINE TENDER EXAMINATION: Images For Reference Purposes Only us Saul Ortiz NP IMG MAMMO PROCEDURES Final Result [facility] documented in this encounter Visit Diagnoses Not on filedocumented in this encounter Care Teams Cow Puncher Relationship Specialty Start Date End Date Jamaal Ibarra DO PCP - General 10/22/17 documented as of this encounter
--- OUTSIDE RECORDS SUMMARY | 2025-03-06 15:50 | XMS_ITS | Encounter Summary ---
Author Organization [facility] Healthcare Address [address] [place] [address] Care Team Providers Care Cabinet Finisher Name Role Phone Jamaal Ibarra DO Primary Care Provider [phone]- [phone] Reason for Visit * Diagnostic Imaging (Routine) - Closed Specialty Diagnoses / Procedures Referred By Liz borrero Referred To Contact Procedures Breast Imaging US Outside Reference Saul Ortiz NP Phone: tel: fax: Referral ID Status Reason Start Date Expiration Date Visits Re quested Visits Authorized [id number] Closed 10/16/2022 11/15/2023 1 1 Encounter Details Date Type Department Care Team (Late st Contact Info) Description 07/15/2019 Hospital Encounter [facility]iology [facility] [place], [place] [id number] Social History Tobacco Use Types Packs/Day Years [...] on file Legal Sex Female 12:16 AM 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 There will be no report generated by a [facility] Radiologist. Narrative [facility] - 10/16/2022 11:47 AM SHOOTER'S HELPER EXAMINATION: Images For Reference Purposes Only us Saul Ortiz NP IMG MAMMO PROCEDURES Final Result [facility] documented in this encounter Visit Diagnoses Not on filedocumented in this encounter Care Teams Cabinet Finisher Relationship Specialty Start Date End Date Jamaal Ibarra DO PCP - General 10/22/17 documented as of this encounter
--- OUTSIDE RECORDS SUMMARY | 2025-03-06 15:50 | XMS_ITS | Encounter Summary ---
Author Organization [facility] Healthcare Address [address] [place] [address] Care Team Providers Care Bottom Wheeler Name Role Phone Jamaal Ibarra DO Primary Care Provider +1- [phone] Reason for Visit * Diagnostic Imaging (Routine) - Closed Specialty Diagnoses / Procedures Referred By Liz borrero Referred To Contact Procedures Breast Imaging Diagnostic Outside Reference Saul Ortiz NP Phone: tel: fax: Referral ID Status Reason Start Date Expiration Date Visits Re quested Visits Authorized [id number] Closed 10/16/2022 11/15/2023 1 1 Encounter Details Date Type Department Care Team (Late st Contact Info) Description 07/15/2019 12:05 AM CDT Hospital Encounter [facility] Radiology [facility] [address] [place] [address] Social History Tobacco Use Types Packs/Day Years [...] on file Legal Sex Female 12:16 AM GRADES 9 THROUGH 12 TEACHER Gender Identity Not on file Sexual Orientation [...] CDT) Impressions [facility] - 10/16/2022 11:47 AM GRADES 9 THROUGH 12 TEACHER These images are for Reference purposes only and have not been reviewed by [facility] Radiology. There will be no report generated by a [facility] Radiologist. Narrative [facility]_M[facility] - 10/16/2022 11:47 AM GRADES 9 THROUGH 12 TEACHER EXAMINATION: Images For Reference Purposes Only us Saul Ortiz NP IMG MAMMO PROCEDURES Final Result [facility] documented in this encounter Visit Diagnoses Not on filedocumented in this encounter Care Teams Bottom Wheeler Relationship Specialty Start Date End Date Jamaal Ibarra DO PCP - General 10/22/17 documented as of this encounter
[2025-03-06 15:51] VITALS: BP 135/74; PULSE 102; RESP 16; TEMP 36.8; O2SAT 99
--- OUTSIDE RECORDS SUMMARY | 2025-03-06 15:51 | XMS_ITS | CONTINUITY OF CARE DOCUMENT ---
Author Name shyanalili Address Unknown Organization [facility] Address [address] [place] [address] [address] [place] [address] Phone [phone] Care Team Providers Care Replenisher Name Role Phone Edwar JAY, Rigoberto Unavailable [phone] JANNETTE JAY, LAYTON Unavailable [phone] JANETH GUZMAN DO Unavailable INSURANCE PROVIDERS Payer name Policy type / Coverage type [place] red constitution party ID [facility] [id number]
--- OUTSIDE RECORDS SUMMARY | 2025-03-06 15:51 | XMS_ITS | Clinical Summary ---
Author Organization [facility] Address [address] [place] [address] Care Team Providers Care Manager Of Care Name Role Phone Jamaal Ibarra DO Primary Care Provider [phone] Allergies Active Allergy Reactions Criticality Noted Date [...] Testing 8 times daily 800 each 3 018 Active sertraline (ZOLOFT) 100 mg tablet Take [...] capsule (2 mg total) by mouth nightly 021 Active prochlorperazine (COMPAZINE) 10 mg tablet TAKE 1 TABLET BY MOUTH EVERY 4 TO 6 HOURS NEEDED FOR NAUSEA OR VOMITING 021 Active benzonatate (TESSALON) 100 mg capsule TAKE 1 CAPSULE BY MOUTH EVERY 8 HOURS NEEDED FOR COUGH 021 Active ketorolac (ACULAR) 0.5 % ophthalmic solution INSTILL 1 DROP IN LEFT EYE THREE TIMES DAILY. START AFTER SURGERY USE FOR 2 WEEKS 022 Active bumetanide (BUMEX) 0.5 mg tablet Take [...] 150. TTD 80 UNITS 75 mL 3 025 Active carvediloL (COREG) 6.25 mg tablet Take 1 tablet (6.25 mg total) by mouth 2 times daily 025 Active hydrALAZINE (APRESOLINE) 50 mg tablet Take 1 tablet (50 mg total) by mouth every 8 (eight) hours 025 Active amLODIPine (NORVASC) 5 mg tablet Take 1 tablet (5 mg total) by mouth daily 025 Active FreeStyle Sharita 3 Plus Sensor deviceIndications :Type 1 diabetes mellitus with hyperglycemia (HCC) Use a new sensor every 2 weeks for glucose monitoring 2 each 025 Active glucagon (Baqsimi) 3 mg/actuation spray,non-aerosol Indications:Type 1 diabetes mellitus with hyperglycemia (HCC) mg (one actuation) into a single nostril for low blood sugar that does not correct with oral intake or if confused; if no response, may repeat in 15 minutes using a new intranasal device. 2 each 025 Active metroNIDAZOLE (FLAGYL) 500 mg tablet daily [...] AND EVENING DAILY DIRECTED 30 mL 11 025 2024 Discontinued losartan (COZAAR) 100 mg tablet Take 1 tablet (100 mg total) by mouth daily 024 2024 Discontinued blood-glucose sensor (FreeStyle Sharita 3 Plus Sensor) device Use a new sensor every 2 weeks for glucose monitoring 2 each 025 2024 Discontinued(R eorder) Hospital, Clinic, or Other Facility Administered Medication [...] 09/06/2021 Assessment & Plan (09/06/2021 9:49 AM CLOTH PRESSER): -Fatigue is most likely multifactorial as [...] 09/16/2017 Assessment & Plan (09/06/2021 9:45 AM CLOTH PRESSER): -Taking weekly Vitamin D -Will repeat Vitamin D level Type 1 diabetes mellitus with hyperglycemia 03/2017 Nocturia 06/12/2017 Gastroesophageal reflux disease 10/27/2014 Seronegative rheumatoid arthritis 10/27/2014 Swelling of hand 10/27/2014 Fibroid 10/21/2014 Fibromyalgia 06/09/2014 Hypertension 04/27/2014 Assessment & Plan (09/06/2021 9:45 AM CLOTH PRESSER): -BP today is 121/81 -Will continue same antihypertensive medications at this time. Hyperlipidemia 04/27/2014 Assessment & Plan (09/06/2021 9:45 AM CLOTH PRESSER): -Will continue statin as it is [...] 01/22/2023 Assessment & Plan (09/06/2021 9:45 AM CLOTH PRESSER): -Currently taking MDI -A1C on 09/06/21 [...] 06/12/201701/05 Assessment & Plan (09/06/2021 9:07 AM CLOTH PRESSER): -States she has been off of LT4 for 2 years -Will repeat TFT. Encounters Date Type Department Care Team Description 03/03/2025 2:00 PM CDT Office Visit [facility] [place] Endocrinology Metabolism and Lipid [address] 13th [place] [address] [place] [address] Sarah Haskins MD Type 1 diabetes mellitus with hyperglycemia (HCC) (Primary Dx); Hyperlipidemia, unspecified hyperlipidemia type; Vitamin D deficiency; Thyroid nodule 02/26/2025 11:15 AM CDT Procedure visit [facility] [place] Ophthalmology 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 02/11/2025 Orders Only [facility] Cardiology [address] [place] [address] Kayla Conklin NP from Last [...] on file Legal Sex Female 12:16 AM CLOTH PRESSER Gender Identity Not on file Sexual [...] 03/03/2025 1:51 PM CDT Plan of Treatment Health Maintenance [...] 03/13/2019 Lipid Panel 01/23/2025 01/24/2024, 10/08, 10/14/2017 eGFR 04/04/2025 04/04/2024, 06/09, 01/03/2021, Additional history exists Influenza Vaccine (Season Ended) 2025 07/07/2020, 07/30/2019, 07/16/2018, Additional history exists Hemoglobin A1C 07/31/2025 01/29/2025, 10/07, 01/22/2024, Additional history exists TSH Level 01/29/2026 01/29/2025, 01/05, 01/03/2021, Additional history exists Dilated Eye Exam 02/26/2026 02/26/2025, , 06/19/2024, Additional history exists Hepatitis B Screening Completed 07/28/2019 , 08/21/2013, 07/09/2012 Hepatitis C Screening Completed 07/06/2021 Procedures Procedure Name Priority Date/Time Associated Diagnosis Comments POCT GLUCOSE [id number] Routine 03/03/2025 1: 56 PM CDT Type [...] HEMOGLOBIN A1C Routine 10/23/2024 8 :29 AM CLOTH PRESSER Type 1 diabetes mellitus with hyperglycemia [...] mg/0.05 mL Route: intravitreal, Site: Left Eye [facility]: 26090-683-42, Lot: [id number], Expiration date: 04/05/2026, Waste: 0 mL Medication [...] partial VMA; no VH; no central DME us Steven Edmonds MD OPHTH TOMOGRAPHY Final Res ult * Cardiology Document Scan (01/28/2025 11:20 AM CDT) Anatomical Region Laterality Modality Other us Kayla Conklin NP CV CARDIAC SERVICES PROCEDUR [...] Dorman MD LAB BLOOD ORDERABLES Final Result [facility] [place] [address] * Albumin Creatinine Ratio, Urine (01/24/2024) Urine us Sarah Haskins MD LAB URINE ORDERABLES Final Resu lt EXTERNAL LAB * TSH (01/24/2024) Blood us Sarah Haskins MD LAB BLOOD ORDERABLES Final Resu lt Performing Organization Address [facility] Co de Phone Number EXTERNAL LAB * Lipid panel (01/24/2024) Blood Sarah Haskins MD LAB BLOOD ORDERABLES Final Resu lt Performing Organization Address [facility] Co de Phone Number EXTERNAL LAB [...] nipple by physician COMPARISON: Outside exams from [facility] 09/13/2022to 07/08/2019 TECHNIQUE: Full field digital mammographic [...] 07/12/2021 5:08 PM CDT Performed at: - [address] [id number] Business Intelligence Reporting Analyst: Link Myles PhD, Phone: [phone] us Lorrie Saavedra MD LAB MICROBIOLOGY - GENERAL ORD ERABLES Final Result [facility] from Last 3 Months or Most Recently Relevant to Health Maintenance [place] [address] [place] [address] [place] BL CHOICE PRF [place] [facility] [place] GENERIC COPAY ASSIST BL CHOICE PR[place] WORKERS COMPENSATION GENERIC WORKERS COMPENSATION GENERIC Care Teams Manager Of Care Relationship Specialty Start Date End Date Jamaal Ibarra DO PCP - General 10/22/17
--- OUTSIDE RECORDS SUMMARY | 2025-03-06 15:51 | XMS_ITS | Clinical Summary ---
Author Organization [facility] Address [address] [place] [address] Care Team Providers Care Video Library Assistant Name Role Phone Lebron Pugh V. DO Unavailable [phone] Jamaal Ibarra DO Primary Care Provider Source Comments [facility],non-owned Affiliates and Associated Physician Practices is amultiple site organization consisting of ambulatory clinics and hospital sitesin [place], [place], [place]. This disclosure is being madepursuant to the Care Everywhere program and may not contain all information available regarding this patient. Last updated 18.[facility] Allergies Active Allergy Reactions Criticality Noted [...] tablet 2 Active vitamin D, ergocalciferol, (DRISDOL) 20312 UNITS capsule 1 Active gabapentin (NEURONTIN) 300 MG capsule 2 Active simvastatin (ZOCOR) 20 MG tablet 1 Active traMADol (ULTRAM) 50 MG tablet 1 014 Active traZODone (DESYREL) 50 MG tablet 6 Active zolpidem (AMBIEN) 10 MG tablet 5 Active megestrol (MEGACE) 40 MG tablet Take 1 Tab by mouth once daily. 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 Not on file Not on file Last Filed Vital Signs Vital Sign Reading Time Taken Comments Blood Pressure 126/74 10/21/2014 11:57 AM AUDIO VISUAL FACILITIES ENGINEER Pulse 102 09/16/2013 1:06 PM AUDIO VISUAL FACILITIES ENGINEER Temperature 36.8 C (98.2 F) 09/16/2013 1:06 PM AUDIO VISUAL FACILITIES ENGINEER Respiratory Rate 20 09/16/2013 1:06 PM AUDIO VISUAL FACILITIES ENGINEER Oxygen Saturation 98% 09/16/2013 1:06 PM AUDIO VISUAL FACILITIES ENGINEER Inhaled Oxygen Concentration - - Weight 89.8 kg (198 lb) 10/21/2014 11:57 AM AUDIO VISUAL FACILITIES ENGINEER Height 172.7 cm (5' 8) 10/21/2014 11:57 AM AUDIO VISUAL FACILITIES ENGINEER Body Mass Index 30.11 10/21/2014 11:57 AM AUDIO VISUAL FACILITIES ENGINEER Plan of Treatment Health Maintenance Due [...] HPV MRNA E6/E7 Routine 10/21/2014 1:52 PM AUDIO VISUAL FACILITIES ENGINEER Routine gynecological examination MAMMO BILAT SCREENING Routine 09/22/2013 8:09 AM AUDIO VISUAL FACILITIES ENGINEER Screening COMPREHENSIVE METABOLIC PANEL Routine 08/22/2013 8:00 AM AUDIO VISUAL FACILITIES ENGINEER DM w/o Complication Type II, Uncontrolled HTN (hypertension), benign Abdominal pain, RUQ (right upper quadrant) Ketonuria HEMOGLOBIN A1C Routine 08/22/2013 8:00 AM AUDIO VISUAL FACILITIES ENGINEER DM w/o Complication Type II, Uncontrolled MICROALB/CREAT RATIO URINE RANDOM PANEL Routine 08/21/2013 9:29 AM AUDIO VISUAL FACILITIES ENGINEER DM w/o Complication Type II, Uncontrolled from Last 3 Months or Most Recently Relevant to Health Maintenance Results * PAP THIN PREP REFLX HPV (PO REF LAB) (10/21/2014 1:52 PM AUDIO VISUAL FACILITIES ENGINEER) Clinical Information [facility] Comment:Routine exam LMP [facility] [...] has been evaluated with computer assisted technology. 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 [facility] Comment: BKA, CT(ASCP) Test Performed at: [facility] [id number] LAURENCE JO MD ENTIRE ENDOCERVIX / Unknown 10/21/2014 1:52 PM AUDIO VISUAL FACILITIES ENGINEER 10/22/2014 10:09 AM AUDIO VISUAL FACILITIES ENGINEER Bienvenido Mcnair Jr., MD LAB - PATHOLOGY/CYTOL OGY ORDERABLES Final Result [address] [address] * MAMM SCREENING DIGITAL IMAGE BILAT G0202 (09/22/2013 8:09 AM AUDIO VISUAL FACILITIES ENGINEER) Anatomical Region Laterality Modality Breast Bilateral Mammography 09/22/2013 11:5 3 AM AUDIO VISUAL FACILITIES ENGINEER Impressions 09/22/2013 11:56 AM AUDIO VISUAL FACILITIES ENGINEER No malignant abnormality identified. No significant change. BI-RADS category 1. Negative. RECOMMENDATIONS: Routine mammograms in one year. Narrative 09/22/2013 11:56 AM AUDIO VISUAL FACILITIES ENGINEER Screening mammogram: HISTORY: Screening mammogram. Two views [...] * (ABNORMAL) HEMOGLOBIN A1C (08/22/2013 8:00 AM AUDIO VISUAL FACILITIES ENGINEER) Hemoglobin A1c 12.6(H) <5.7 % of total [...] of diabetes for children. Test Performed at: [address] [address] [facility] [place] [address] PAPO BENNETT DO,MPH Whole blood specimen (specimen) BLOOD SPECIMEN / Unknown 08/22/2013 4:53 AM AUDIO VISUAL FACILITIES ENGINEER Salma Hunt PARTS ADVISOR-DEVELOPMENT SYSTEM EFFICIENCY MANAGER LAB - CHEMISTRY ORDERA BLES Final Result [facility] [address] [place] [address] * (ABNORMAL) COMPREHENSIVE METABOLIC PANEL (08/22/2013 8:00 AM AUDIO VISUAL FACILITIES ENGINEER) Glucose 312(H) 65 - 99 mg/dL [facility] [...] 29 U/L [facility] Comment: Test Performed at: [address] [address] [place] [address] PAPO BENNETT DO,MPH Blood specimen (specimen) BLOOD SPECIMEN / Unknown 08/22/2013 4:53 AM AUDIO VISUAL FACILITIES ENGINEER Salma Llanos Marilee PARTS ADVISOR-DEVELOPMENT SYSTEM EFFICIENCY MANAGER LAB - CHEMISTRY ORDERA BLES Final Result Performing Organization Address [facility] de Phone Number [facility] [address] [place] [address] * (ABNORMAL) MICROALB/CREAT RATIO URINE RANDOM PANEL (08/21/2013 9:29 AM AUDIO VISUAL FACILITIES ENGINEER) Creatinine Urine 129 20 - 320 mg/dL [...] within a diagnostic category. Test Performed at: [address] [address] [place] [address] PAPO BENNETT DO,MPH Urine specimen (specimen) URINE SPECIMEN OBTAINED BY CLEAN CATCH PROCEDURE / Unknown 08/21/2013 9:29 AM AUDIO VISUAL FACILITIES ENGINEER 08/22/2013 4:16 AM AUDIO VISUAL FACILITIES ENGINEER Samla Llanos Marilee PARTS ADVISOR-DEVELOPMENT SYSTEM EFFICIENCY MANAGER LAB - URINE CHEMISTRY ORDERABLES Final Result Performing Organization Address [facility] Co de Phone Number [facility] [address] [place] [address] from Last 3 Months or Most Recently Relevant to Health Maintenance Insurance ANTHEM ANTHEM Advance Directives * FULL RESUSCITATION (Latest Code Status on File) Date Activated Date Inactivated Comments 05/06/2011 1:35 AM 05/08/2011 5:46 AM Care Teams Video Library Assistant Relationship Specialty Start Date End Date Jamaal Ibarra DO [address] [place] [address] PCP - General 06/01/21 Lebron Pugh DO [address] [place] [address] Oncology 06/23/07
--- OUTSIDE RECORDS SUMMARY | 2025-03-06 15:51 | XMS_ITS | Encounter Summary ---
Author Organization [facility] Address [address] [place] [address] Phone Care Team Providers Care Ui Ux Engineer Name Role Phone Jamaal Ibarra DO Primary Care Provider [phone] Encounter Details Date Type Department Care Team (Late st Contact Info) Description 08/03/2021 Orders Only [facility] Rheumatology [address] [facility] [address] 5th [address] [place] [id number] Jana Medley, B.A. 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
--- OUTSIDE RECORDS SUMMARY | 2025-03-06 15:51 | XMS_ITS | Clinical Summary ---
Author Organization [facility] Address [address] [place] [address] Care Team Providers Care Bag Turner Name Role Phone Jamaal Ibarra DO Primary [...] by subcutaneous injection 2 times daily. Active prochlorperazin e maleate (COMPAZINE) 10 mg [...] (5 mg) by mouth daily. 30 Tablet 5 Active carvediloL (COREG) 6.25 mg tablet Take 1 Tablet (6.25 mg) by mouth every 12 hours. 60 Tablet 02/02/2025 10:14 AM CDT 5 Active chlorthalidone (HYGROTON) 25 mg tablet Take 1 Tablet (25 mg) by mouth daily. 30 Tablet 02/02/2025 10:14 AM CDT 5 Active hydrALAZINE (APRESOLINE) 50 mg tablet Take 1 Tablet (50 mg) by mouth every 8 hours for systolic (top number) blood pressure greater than 170. 90 Tablet 02/02/2025 10:14 AM CDT 5 Active bumetanide (BUMEX) 1 mg tablet Take 1 Tablet (1 mg) by mouth daily. 7 Tablet 02/02/2025 10:14 AM CDT 5 Active Active Problems Problem Noted Date [...] Encounters Date Type Department Care Team Description 03/02/2025 External Device Data ST[facility] ABSTRACTION Provider, Abstract 03/02/2025 External Device Data [facility] ABSTRACTION Provider, Abstract 02/25/2025 External Device Data [facility] ABSTRACTION Provider, Abstract 02/23/2025 External Device Data [facility] ABSTRACTION Provider, Abstract 02/09/2025 External Device Data [facility] ABSTRACTION Provider, Abstract 02/02/2025 External Device Data [facility] ABSTRACTION Provider, Abstract 02/02/2025 External Device Data ST[facility] ABSTRACTION Provider, Abstract 02/02/2025 External Device Data ST[facility] ABSTRACTION Provider, Abstract 01/29/2025 12:19 PM CDT - 02/02/2025 10:23 AM CDT Hospital Encounter [facility] [address] [place] [address] Citlalli Altamirano MD Pickrell, Aaron A, MD Hughes, Theresa, MD Keech, Rachel C, Chronic ulcer of great toe of right foot, limited to breakdown of skin ([facility]) Discharge Disposition: Home or Self Care 01/29/2025 Mobile Encounter [facility] Adult Hospitalists [address] [id number] Citlalli Altamirano MD from Last 3 Months [...] on file 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 Gender Identity Not on file Sexual [...] 3:56 PM CDT Height 172.7 cm (5' 8) 01/29/2025 3:56 PM CDT Body Mass Index [...] - 99 mg/dL 02/01/2025 9:24 PM CDT [facility] LAB[facility]ORY [facility] SPECIMEN SOURCE, GLUCOSE POC Whole Blood 02/01/2025 9:24 PM CDT [facility] Blood, whole 02/01/2025 9:24 PM CDT 02/02/2025 6:24 AM CDT us Dorinda Oscar DO POINT OF CARE TESTING Final Re sult [facility]# [id number] [address] [place] [address] * XR CHEST PA OR AP 1 [...] - 9.8 K/uL 02/01/2025 9:40 AM CDT [facility] RBC 3.61(L) 3.90 - 4.90 M/uL 02/01/2025 9:40 AM CDT [facility] HEMOGLOBIN 10.4(L) 11.8 - 14.8 g/dL 02/01/2025 9:40 AM CDT [facility] HEMATOCRIT 33.5(L) 35.5 - 44.0 % 02/01/2025 9:40 AM CDT [facility] MCV 92.8 82.0 - 99.0 fL 02/01/2025 9:40 AM CDT [facility] MCH 28.8 27.2 - 32.6 pg 02/01/2025 9:40 AM CDT [facility] MCHC 31.0(L) 31.5 - 35.5 g/dL 02/01/2025 9:40 AM CDT [facility] RDW 13.0 11.5 - 14.5 % 02/01/2025 9:40 AM CDT [facility] - [facility] RDW-STDEV 43.9 37.1 - 48.7 fL 02/01/2025 9:40 AM CDT [facility] - [facility] PLATELETS 278 140 - 350 K/uL 02/01/2025 9:40 AM CDT [facility] - [facility] MPV 9.6 9.3 - 12.4 fL 02/01/2025 9:40 AM CDT [facility] - . [facility] NEUTROPHILS 76 % 02/01/2025 9:40 AM CDT [facility] - . [facility] LYMPHOCYTES 15 % 02/01/2025 9:40 AM CDT [facility] - . [facility] MONOCYTES 5 % 02/01/2025 9:40 AM CDT [facility] - . [facility] EOSINOPHILS 3 % 02/01/2025 9:40 AM CDT [facility] - . [facility] BASOPHILS 1 % 02/01/2025 9:40 AM LabmeetingT [facility] - . [facility] IMMATURE GRANULOCYTES 1 % 02/01/2025 9:40 AM Lab[facility]etingT [facility] - . [facility] Comment:IG (Immature Granulo cyte) count includes Metamyelocytes, Myelocytes, and Promyelocytes NEUTROPHIL ABSOLUTE 6.69 1.90 - 7.00 K/uL 02/01/2025 9:40 AM CDT [facility] - . [facility] LYMPHOCYTE ABSOLUTE 1.36 0.70 - 4.50 K/uL 02/01/2025 9:40 AM CDT [facility] - . [facility] MONOCYTE ABSOLUTE 0.44 0.10 - 1.30 K/uL 02/01/2025 9:40 AM [facility] - . [facility] EOSINOPHIL ABSOLUTE 0.23 0.00 - 0.70 K/uL 02/01/2025 9:40 AM Lab[facility]etingT [facility] - . [facility] BASOPHILS ABSOLUTE 0.05 0.00 - 0.20 K/uL 02/01/2025 9:40 AM [facility] - . [facility] IMMATURE GRANULOCYTES ABSOLUTE 0.09(H) 0.00 - 0.03 K/uL 02/01/2025 9:40 AM [facility] - [facility] Blood Venipuncture / Unknown 02/01/2025 8:41 AM CDT 02/01/2025 9:19 AM CDT Lee Ann Berman MD HEMATOLOGY ORDERABLES Final Re sult Performing Organization Address [facility]/ZIP Co de Phone Number [facility] CLIA# [id number] [address] [place] [address] * (ABNORMAL) C-REACTIVE PROTEIN (02/01/2025 8:41 AM CDT) Only the most recent of2 resultswithin the time period is included. CRP 19.8(H) <5.0 mg/L 02/01/2025 12:[address] [facility] Blood Venipuncture / Unknown 02/01/2025 8:41 AM CDT 02/01/2025 9:19 AM CDT Lee Ann Berman MD CHEMISTRY ORDERABLES Final Res ult Performing Organization Address [facility] Co de Phone Number [facility] CLIA# [id number] [address] [place] [address] * (ABNORMAL) BASIC METABOLIC PANEL (02/01/2025 8:41 AM CDT) Only the most recent of3 resultswithin the time period is included. SODIUM 139 136 - 145 mmol/L 02/01/2025 10:01 AM T [facility] POTASSIUM 3.6 3.5 - 5.0 mmol/L 02/01/2025 10:01 AM T [facility] - [facility] CHLORIDE 108(H) 98 - 107 mmol/L 02/01/2025 10:01 AM T [facility] - . [facility] CO2 20(L) 22 - 29 mmol/L 02/01/2025 10:01 AM T [facility] CALCIUM 9.8 8.6 - 10.2 mg/dL 02/01/2025 10:01 AM T [facility] - . [facility] BUN 22(H) 6 - 20 mg/dL 02/01/2025 10:01 AM [facility] CREATININE 1.90(H) 0.51 - 0.95 mg/dL 02/01/2025 10:01 AM [facility] GLUCOSE 167(H) 74 - 99 mg/dL 02/01/2025 10:01 AM [facility] GFR 32(L) >=60 mL/min/1.7 3 sq meter 02/01/2025 10:01 AM [facility] LABORATORY [facility] Comment:eGFR calculated with 2020 CKD-EPI equation. Vegetarian diet, extremely high or low muscle mass, and may affect results. Cystatin C with Glomerular Filtration Rate is a suitable alternative for these patients. ANION GAP 11 8 - 16 mmol/L 02/01/2025 10:01 AM [facility] Blood Venipuncture / Unknown 02/01/2025 8:41 AM CDT 02/01/2025 9:19 AM CDT us Lee Ann Berman MD CHEMISTRY ORDERABLES Final Res ult [facility]# [id number] [address] [place], [place] [address]MARIAA [facility] [place] [address] * (ABNORMAL) URINALYSIS WITH REFLEX MICROSCOPIC (01/31/2025 11:40 AM CDT) COLOR UA Pale Yellow Pale to Dark Yellow 01/31/2025 12:14 PM [facility] LABORATORY [facility] CLARITY UA Clear Clear 01/31/2025 12:14 PM [facility] LABORATORY [facility] SPECIFIC GRAVITY UA 1.006 1.003 - 1.035 01/31/2025 12:14 PM [facility] PH UA 7.0 5.0 - 8.0 01/31/2025 12:14 PM [facility] LABORATORY [facility] LEUKOCYTE ESTERASE UA Negative Negative 01/31/2025 12:14 PM [facility] LABORATORY [facility] NITRITE UA Negative Negative 01/31/2025 12:14 PM CDT [facility] - [facility] PROTEIN UA 2+(A) Negative 01/31/2025 12:14 PM CDT [facility] - [facility] GLUCOSE UA Negative Negative 01/31/2025 12:14 PM CDT [facility] - [facility] KETONES UA Negative Negative 01/31/2025 12:14 PM CDT [facility] - [facility] UROBILINOGEN UA Normal <2.0 mg/dL 12:14 PM CDT [facility] - [facility] BILIRUBIN UA Negative Negative 01/31/2025 12:14 PM CDT [facility] - [facility] BLOOD UA Negative Negative 01/31/2025 12:14 PM CDT [facility] - [facility] WBC UA 0-2 0 - 2 /hpf 01/31/2025 12:14 PM T [facility] - [facility] RBC UA 0-2 0 - 2 /hpf 01/31/2025 12:14 PM CDT [facility] - [facility] BACTERIA UA Negative Negative /hpf 01/31/2025 12:14 PM T [facility] - [facility] EPITHELIAL CELLS, URINE 0-5 0 - 5 /hpf 01/31/2025 12:14 PM T [facility] - [facility] Urine URINE SPECIMEN OBTAINED BY CLEAN CATCH PROCEDURE / Unknown 01/31/2025 11:40 AM CDT 01/31/2025 11:40 AM CDT Lee Ann Berman MD URINE ORDERABLES Final Result [facility] SERVICES - [facility] CLIA# [id number] [address] [place], [place] [id number] * (ABNORMAL) CBC WITHOUT DIFFERENTIAL (01/31/2025 9:10 AM CDT) Only the most recent of2 resultswithin the time period is included. WBC 7.6 4.0 - 9.8 K/uL 01/31/2025 9:21 AM CDT [facility] - [facility] RBC 3.54(L) 3.90 - 4.90 M/uL 01/31/2025 9:21 AM CDT [facility] LABORATORY SERVICES - [facility] HEMOGLOBIN 10.3(L) 11.8 - 14.8 g/dL 01/31/2025 9:21 AM T [facility] LABORATORY SERVICES - [facility] HEMATOCRIT 32.6(L) 35.5 - 44.0 % 01/31/2025 9:21 AM T [facility] LABORATORY SERVICES - [facility] MCV 92.1 82.0 - 99.0 fL 01/31/2025 9:21 AM CDT [facility] LABORATORY SERVICES - [facility] MCH 29.1 27.2 - 32.6 pg 01/31/2025 9:21 AM CDT [facility] LABORATORY SERVICES - [facility] MCHC 31.6 31.5 - 35.5 g/dL 01/31/2025 9:21 AM T [facility] LABORATORY SERVICES - [facility] PLATELETS 247 140 - 350 K/uL 01/31/2025 9:21 AM T [facility] LABORATORY SERVICES - [facility] MPV 9.7 9.3 - 12.4 fL 01/31/2025 9:21 AM T [facility] LABORATORY SERVICES - [facility] RDW 12.9 11.5 - 14.5 % 01/31/2025 9:21 AM T [facility] LABORATORY SERVICES - [facility] RDW-STDEV 43.7 37.1 - 48.7 fL 01/31/2025 9:21 AM T [facility] LABORATORY SERVICES - [facility] Blood Venipuncture / Unknown 01/31/2025 9:10 AM CDT 01/31/2025 9:14 AM CDT us Parris Summers MD HEMATOLOGY ORDERABLES Final Result [facility] SERVICES - [facility]# [id number] [address] [place] [address] * MAGNESIUM LEVEL (01/31/2025 9:10 AM CDT) Only the most recent of2 resultswithin the time period is included. MAGNESIUM 1.8 1.6 - 2.6 mg/dL 01/31/2025 12:30 PM CDT [facility] LABORATORY [facility] Blood Venipuncture / Unknown 01/31/2025 9:10 AM CDT 01/31/2025 9:14 AM CDT us Lee Ann Berman MD CHEMISTRY ORDERABLES Final Res ult [facility] [employer] CLIA# [id number] [address] [place] [address] [place] [id number] * US VENOUS DOPPLER LEG BILATERAL (01/30/2025 1:52 PM CDT) Anatomical Region Laterality Modality Lower Extremity Ultrasound 01/30/2025 1:32 PM CDT Narrative 01/31/2025 7:55 AM CDT [address] [address] [email or web address] Venous Exam Complete Lower Extremity Duplex Patient: Jennifer Londono Study ID: [id number] Gender: F : 1975 Age: 49 Race: CAU Height Study Date: 01/30/2025 Weight: Access. #: [id number] *Referring Physician:* Parris Summers Aaron A *Ordering Physician:* Parris Summers *Administrative Associate:* Lorrie Mendenhall Indications: R/O DVT perordering provider. History: PMH: [...] mm Prepared and Electronically Authenticated Nii Dawkins [id number] Procedure Note Nii Dawkins MD - 01/31/[address] [address] [email or web address] Venous Exam Complete Lower Extremity Duplex Patient: Jennifer Londono Study ID:[id number] Gender: F :1975 Age: 49 Race: CAU Height Study Date:01/30/2025 Weight: Access. #:[id number] *Referring Physician:Parris Li Aaron A *Ordering Physician:Parris LiAdministrative Associate:Lorrie Giraldo Indications: R/O DVT perordering provider. History: [...] mm Prepared and Electronically Authenticated Nii Dawkins [id number] Parris Summers MD US ORDERABLES Final Result * UREA NITROGEN/CREATININE RATIO, URINE (01/30/2025 9:53 AM CDT) UREA NITROGEN, URINE 429 mg/dL 01/30/2025 10:49 AM CDT [facility] Comment:Reference range not established CREATININE, URINE 60.4 29.0 - 226.0 mg/dL 01/30/2025 10:49 AM CDT [facility] Comment:Reference Range vari es with fluid intake and diet. UREA/CREAT RATIO, UR 7.1 Reference Range not established mg/mg Creatinine 01/30/2025 10:49 AM CDT [facility] Urine URINE SPECIMEN OBTAINED BY CLEAN CATCH PROCEDURE / Unknown Collection / Unknown 01/30/2025 9:53 AM CDT 01/30/2025 10:04 AM CDT Parris Summers MD URINE ORDERABLES Final Resul t [facility] CLIA# [id number] [address] [place] [address] * SODIUM, RANDOM URINE (01/30/2025 9:53 AM CDT) SODIUM, URINE 32 mmol/L 01/30/2025 10:40 AM CDT [facility] Comment:Reference range not established Urine URINE SPECIMEN OBTAINED BY CLEAN CATCH PROCEDURE / Unknown Collection / Unknown 01/30/2025 9:53 AM CDT 01/30/2025 10:04 AM CDT Parris Summers MD URINE ORDERABLES Final Resul t [facility] CLIA# [id number] [address] [place] [address] * (ABNORMAL) PROTEIN/CREATININE RATIO, URINE (01/30/2025 9:53 AM CDT) PROTEIN CONCENTRATION 233(H) 0 - 20 mg/dL 01/30/2025 10:52 AM CDT [facility] CREATININE, URINE 61.1 29.0 - 226.0 mg/dL 01/30/2025 10:52 AM CDT [facility] Comment:Reference Range vari es with fluid intake and diet. PROTEIN/CREAT RATIO, URINE 3.81(H) 0.00 - 0.19 mg/mg Creatinine 01/30/2025 10:52 AM CDT [facility] Urine URINE SPECIMEN OBTAINED BY CLEAN CATCH PROCEDURE / Unknown Collection / Unknown 01/30/2025 9:53 AM CDT 01/30/2025 10:04 AM CDT Parris Summers MD URINE ORDERABLES Final Resul t Performing Organization Address [facility]/ZIP Co de Phone Number [facility]# [id number] [address] [place] [address] * OSMOLALITY, URINE (01/30/2025 9:53 AM CDT) OSMOLALITY, URINE 287 50 - 1,200 mOsm/kg 01/30/2025 10:30 AM CDT [facility] Urine URINE SPECIMEN OBTAINED BY CLEAN CATCH PROCEDURE / Unknown Collection / Unknown 01/30/2025 9:53 AM CDT 01/30/2025 10:04 AM CDT Narrative [facility] - 01/30/2025 10:30 AM CDT Reference range: 50-1200 mOsm/kg H2O, depending on fluid intake. us Parris Summers MD URINE ORDERABLES Final Resul t Performing Organization Address City/[facility]/ZIP Co de Phone Number [facility] CLIA# [id number] [address] [place] [address] * OSMOLALITY (01/29/2025 7:53 PM CDT) OSMOLALITY 300 275 - 300 mOsm/kg 01/29/2025 9:21 PM CDT [facility] Blood Venipuncture / Unknown 01/29/2025 7:53 PM CDT 01/29/2025 8:18 PM CDT Parris Summers MD CHEMISTRY ORDERABLES Final R esult [facility] LABORATORY [facility] CLIA# [id number] [address] [place] [address] * MRI FOOT WO CONTRAST RIGHT (01/29/2025 [...] greatest dorsally. DICTATION LOCATION: Location 2 - [facility] Narrative 01/30/2025 7:54 AM CDT MRI FOOT [...] the foot greatest dorsally. DICTATION LOCATION: Location - [facility] Parris Summers MD MR ORDERABLES Final Result * RESPIRATORY PATHOGEN PCR PANEL (01/29/2025 4:29 PM CDT) [facility] Respiratory Pathogen PCR Panel NOT DETECTED No respiratory pathogen nucleic acids detected. 01/29/2025 5:40 PM CDT [facility] COVID-19 PCR NOT DETECTED Not Detected 01/29/2025 5:40 PM CDT [facility] Upper Respiratory ENTIRE NASOPHARYNX / Unknown Collection / Unknown 01/29/2025 4:29 PM CDT 01/29/2025 4:44 PM CDT [facility] - 01/29/2025 5:40 PM CDT The Film [...] MICROBIOLOGY - GENERAL ORDER ISIAH Final Result [facility]# [id number] [address] [place] [address] [place] [address] * GI PATHOGEN PCR PANEL (01/29/2025 4:26 PM CDT) Pathologist [facility] GI Pathogen PCR panel NOT DETECTED No nucleic acids detected. 01/29/2025 6:10 PM CDT [facility] Stool STOOL SPECIMEN / Unknown Collection / Unknown 01/29/2025 4:26 PM CDT 01/29/2025 4:37 PM CDT [facility] - 01/29/2025 6:10 PM CDT The Film [...] MICROBIOLOGY - GENERAL ORDER ISIAH Final Result [facility] LABORATORY SERVICES [facility]# [id number] [address] [facility] [place] [address] * XR CHEST PA AND LATERAL 2 [...] * TSH REFLEXIVE (01/29/2025 2:08 PM CDT) [facility] TSH 1.92 0.27 - 4.20 uIU/mL 01/29/2025 4:01 PM CDT [facility] LABORATORY [facility] Blood Venipuncture / Unknown 01/29/2025 2:08 PM CDT 01/29/2025 3:14 PM CDT Parris Summers MD CHEMISTRY ORDERABLES Final R esult Performing Organization Address [facility]/ZIP Co de Phone Number [facility] CLIA# [id number] [address] [place] [address] * (ABNORMAL) IRON, TIBC, AND PERCENT SATURATION (01/29/2025 2:08 PM CDT) [facility] IRON 22(L) 37 - 145 ug/dL 01/29/2025 4:01 PM CDT [facility] LABORATORY [facility] TIBC 230(L) 250 - 450 ug/dL 01/29/2025 4:01 PM CDT [facility] LABORATORY [facility] IRON % SATURATION 10(L) 15 - 50 % 01/29/2025 4:01 PM CDT [facility] LABORATORY [facility] TRANSFERRIN 181(L) 200 - 360 mg/dL 01/29/2025 4:01 PM CDT [facility] LABORATORY [facility] Blood Venipuncture / Unknown 01/29/2025 2:08 PM CDT 01/29/2025 3:14 PM CDT Parris Summers MD CHEMISTRY ORDERABLES Final R esult [facility] CLDE# [id number] [address] [place] [address] * (ABNORMAL) SEDIMENTATION RATE (01/29/2025 2:08 PM CDT) [facility] ESR (SEDIMENTATION RATE) 76(H) <=30 mm/Hr 01/29/2025 4:00 PM CDT [facility] LABORATORY [facility] Blood Venipuncture / Unknown 01/29/2025 2:08 PM CDT 01/29/2025 3:15 PM CDT Parris Summers MD HEMATOLOGY ORDERABLES Final Result Performing Organization Address [facility] de Phone Number [facility]# [id number] [address] [place] [address] * (ABNORMAL) HEMOGLOBIN A1C (01/29/2025 2:08 PM CDT) HEMOGLOBIN A1C 8.4(H) <5.7 % 01/29/2025 3:35 PM CDT [email or web address] [facility] EST. AVG GLUCOSE, A1C 194 mg/dL 01/29/2025 3:35 PM CDT [email or web address] [facility] Blood Venipuncture / Unknown 01/29/2025 2:08 PM CDT 01/29/2025 3:15 PM CDT Narrative [facility] LABORATORY [facility] - 01/29/2025 3:35 PM CDT HGB A1C INTERPRETATION NORMAL: <5.7% PRE-DIABETES: 5.7 - 6.4% DIABETES: 6.5% OR GREATER Parris Summers MD CHEMISTRY ORDERABLES Final R esult Performing Organization Address City/[facility]/ZIP Co de Phone Number [facility] [employer]# [id number] [address] [place] [address] * (ABNORMAL) COMPREHENSIVE METABOLIC PANEL (01/29/2025 2:08 PM CDT) Pathologist [facility] SODIUM 139 136 - 145 mmol/L 01/29/2025 4:01 PM CDT [email or web address] [facility] POTASSIUM 3.6 3.5 - 5.0 mmol/L 01/29/2025 4:01 PM CDT [email or web address] [facility] CHLORIDE 109(H) 98 - 107 mmol/L 01/29/2025 4:01 PM [facility] CO2 20(L) 22 - 29 mmol/L 01/29/2025 4:01 PM [facility] CALCIUM 9.8 8.6 - 10.2 mg/dL 01/29/2025 4:01 PM [facility] BUN 34(H) 6 - 20 mg/dL 01/29/2025 4:01 PM [facility] CREATININE 2.51(H) 0.51 - 0.95 mg/dL 01/29/2025 4:01 PM [facility] [employer] [facility] GLUCOSE 134(H) 74 - 99 mg/dL 01/29/2025 4:01 PM [facility] TOTAL PROTEIN 6.2(L) 6.7 - 8.6 g/dL 01/29/2025 4:01 PM [facility] ALBUMIN 3.1(L) 3.5 - 5.2 g/dL 01/29/2025 4:01 PM [facility] BILIRUBIN TOTAL 0.2(L) 0.3 - 1.2 mg/dL 01/29/2025 4:01 PM [facility] ALKALINE PHOSPHATASE 90 35 - 104 U/L 01/29/2025 4:01 PM [facility] AST 8 <33 U/L 01/29/2025 4:01 PM [facility] [employer] [facility] ALT 9 <34 U/L 01/29/2025 4:01 PM [facility] [employer] [facility] GFR 23(L) >=60 mL/min/1.7 3 sq meter 01/29/2025 4:01 PM [facility] [employer] [facility] Comment:eGFR calculated with 2020 CKD-EPI equation. Vegetarian diet, extremely high or low muscle mass, and may affect results. Cystatin C with Glomerular Filtration Rate is a suitable alternative for these patients. ANION GAP 10 8 - 16 mmol/L 01/29/2025 4:01 PM CDT [facility] Blood Venipuncture / Unknown 01/29/2025 2:08 PM CDT 01/29/2025 3:14 PM CDT Narrative [facility] - 01/29/2025 4:01 PM CDT Samples containing indocyanine green cause interferences on Total and/or Direct Bilirubin and must not be measured. us Parris Summers MD CHEMISTRY ORDERABLES Final R esult [facility] CLIA# [id number] [place] [address] from Last 3 Months Insurance [facility] PREFERRED RX [employer] Commercial Advance Directives For more information, please contact: [phone] * Full Code (Latest Code Status on File) Date Activated Date Inactivated Comments 01/29/2025 1:42 PM 02/02/2025 12:23 PM Care Teams Bag Turner Relationship Specialty Start Date End Date Jamaal Ibarra DO [address] [address] PCP - General Internal Medicine 07/11/18
--- OUTSIDE RECORDS SUMMARY | 2025-03-06 15:51 | XMS_ITS | Encounter Summary ---
Author Organization [facility] Address [address] [place] [address] Phone Care Team Providers Care Angular Js Developer Name Role Phone Jamaal Ibarra DO Primary Care Provider +1- [phone] Encounter Details Date Type Department Care Team (Late st Contact Info) Description 10/18/2021 Telephone [facility] Rheumatology [address] [place] [address] 5th [place] [address] [place] [address] Era Taylor CMA Social History Tobacco Use Types Packs/Day Years Used Date Smoking Tobacco: Never Smokeless Tobacco: Never Comments Unknown Sex and Gender Information Value Date Recorded Sex Assigned at Not on file 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
--- OUTSIDE RECORDS SUMMARY | 2025-03-06 15:51 | XMS_ITS | Encounter Summary ---
Author Organization [employer] Address [address] [place] [address] Care Team Providers Care Magistrate Assistant Name Role Phone Jamaal Ibarra DO Primary Care Provider Encounter Details Date Type Department Care Team (Latest Contact Info) Description 03/23/2002 Outpatient Historical [facility] [place] [address] [place] [address] MENSTRUAL DISORDER NEC (Primary Dx) Social History Tobacco Use Types Packs/Day Years Used Date Smoking Tobacco: Never Assessed Comments Unknown Sex and Gender Information Value Date Recorded Sex Assigned at Not on file Legal Sex Female 3:50 AM RN OBGYN Gender Identity Not on file Sexual Orientation [...] documented as of this encounter Care Teams Magistrate Assistant Relationship Specialty Start Date End Date Jamaal Ibarra DO [address] [facility] [address] [place] [address] PCP - General Internal Medicine 07/11/18 documented as of this encounter
--- OUTSIDE RECORDS SUMMARY | 2025-03-06 15:51 | XMS_ITS | Clinical Summary ---
Author Organization [facility] Address [address] [place] [address] Phone Care Team Providers Care Radiology Physician Name Role Phone JeanniesvetaJamaal jernigan Primary Care Provider [phone] Allergies Active Allergy Reactions Criticality Noted Date [...] 2 Active ergocalciferol (VITAMIN D2) 1.25 MG (14281 UT) capsule TAKE 1 CAPSULE BY MOUTH [...] Comments Blood Pressure 128/72 09/05/2022 8:31 AM PHYSICIAN PRACTICE COORDINATOR Pulse - - Temperature 36.5 C (97.7 F) 09/05/2022 8:31 AM PHYSICIAN PRACTICE COORDINATOR Respiratory Rate 18 09/05/2022 8:31 AM PHYSICIAN PRACTICE COORDINATOR Oxygen Saturation - - Inhaled Oxygen Concentration - - Weight 121 kg (267 lb) 09/05/2022 8:31 AM PHYSICIAN PRACTICE COORDINATOR Height 172.7 cm (5' 8) 09/05/2022 8:31 AM PHYSICIAN PRACTICE COORDINATOR Body Mass Index 40.6 09/05/2022 8:31 AM PHYSICIAN PRACTICE COORDINATOR Plan of Treatment Health Maintenance Due Date Last Done Comments Influenza Vaccine (Season Ended) 2025 07/07/2020, 07/30/2019, 07/16/2018, Additional history exists Insurance [facility] Care Teams Radiology Physician Relationship Specialty Start Date End Date Jamaal Ibarra DO [address] [place] [address] PCP - General Internal Medicine 05/07/22
--- NOTE | 2025-03-06 20:03 | PC.NURSE ---
Patient decided wait was too long and went home. Walked out with steady gait
--- OUTSIDE RECORDS SUMMARY | 2025-03-06 20:05 | XMS_ITS | Encounter Summary ---
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
--- OUTSIDE RECORDS SUMMARY | 2025-03-06 20:05 | XMS_ITS | Referral Summary ---
Author Organization [facility] Address [address] [place] [address] Care Team Providers Care Aquatic Scientist Name Role Phone Jamaal Ibarra DO Primary Care Provider [phone]- [phone] Encounters Date Type Department Care Team Description 03/03/2025 2:00 PM CDT Office Visit [facility] Endocrinology Metabolism and Lipid [address] [facility] 13th [place] [address] [place] [address] Sarah Haskins MD Type 1 diabetes mellitus with hyperglycemia (HCC) (Primary Dx); Hyperlipidemia, unspecified hyperlipidemia type; Vitamin D deficiency; Thyroid nodule 02/26/2025 11:15 AM CDT Procedure visit [facility] Ophthalmology [address] 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 02/11/2025 Orders Only [facility] Cardiology [address] [place] [address] Kayla Conklin NP from Last [...] 09/06/2021 Assessment & Plan (09/06/2021 9:49 AM HOSPITAL CLEANING SPECIALIST): -Fatigue is most likely multifactorial as she [...] 09/16/2017 Assessment & Plan (09/06/2021 9:45 AM HOSPITAL CLEANING SPECIALIST): -Taking weekly Vitamin D -Will repeat Vitamin D level Type 1 diabetes mellitus with hyperglycemia 03/2017 Nocturia 06/12/2017 Gastroesophageal reflux disease 10/27/2014 Seronegative rheumatoid arthritis 10/27/2014 Swelling of hand 10/27/2014 Fibroid 10/21/2014 Fibromyalgia 06/09/2014 Hypertension 04/27/2014 Assessment & Plan (09/06/2021 9:45 AM HOSPITAL CLEANING SPECIALIST): -BP today is 121/81 -Will continue same antihypertensive medications at this time. Hyperlipidemia 04/27/2014 Assessment & Plan (09/06/2021 9:45 AM HOSPITAL CLEANING SPECIALIST): -Will continue statin as it is being [...] 01/22/2023 Assessment & Plan (09/06/2021 9:45 AM HOSPITAL CLEANING SPECIALIST): -Currently taking MDI -A1C on 09/06/21 was [...] 06/12/201701/05 Assessment & Plan (09/06/2021 9:07 AM HOSPITAL CLEANING SPECIALIST): -States she has been off of LT4 [...] on file Legal Sex Female 12:16 AM HOSPITAL CLEANING SPECIALIST Gender Identity Not on file Sexual [...] Priority Date/Time Associated Diagnosis Comments POCT GLUCOSE [id number] Routine 03/03/2025 1: 56 PM CDT Type [...] HEMOGLOBIN A1C Routine 10/23/2024 8 :29 AM HOSPITAL CLEANING SPECIALIST Type 1 diabetes mellitus with hyperglycemia (HCC) [...] mg/0.05 mL Route: intravitreal, Site: Left Eye [facility]: 96129-169-74, Lot: [id number], Expiration date: 04/05/2026, Waste: 0 mL Medication [...] BLOOD ORDERABLES Final Result Performing Organization Address [facility] Co de Phone Number [facility] Department [place] [address] * Albumin Creatinine Ratio, Urine (01/24/2024) Urine Sarah Haskins MD LAB URINE ORDERABLES Final Resu lt Performing Organization Address [facility] Co de Phone Number EXTERNAL LAB * TSH (01/24/2024) Blood Sarah Haskins MD LAB BLOOD ORDERABLES Final Resu lt Performing Organization Address City/[facility] Co de Phone Number EXTERNAL LAB * Lipid panel (01/24/2024) Blood Sarah Haskins MD LAB BLOOD ORDERABLES Final Resu lt Performing Organization Address [facility] Co de Phone Number EXTERNAL LAB [...] nipple by physician COMPARISON: Outside exams from [place] 09/13/2022to 07/08/2019 TECHNIQUE: Full field digital mammographic [...] questions were answered. us Eliudantoinette Sara Ortiz CLIENT RELATIONSHIP CONSULTANT IMG MAMMO PROCEDURES Final Result * Hepatitis [...] 07/12/2021 5:08 PM CDT Performed at: - [address] [id number] Aviation Boatswain'S Mate: Link Myles PhD, Phone: [phone] us Lorrie Saavedra MD LAB MICROBIOLOGY - GENERAL ORD ERABLES Final Result [facility] - 01 from Last 3 Months or Most Recently Relevant to Health Maintenance [place] [address] [place] CHOICE PRF [place] CHO[place] PRF [place] GENERIC COPAY ASSIST CHOICE PRF PPO [place] WORKERS COMPENSATION GENERIC WORKERS COMPENSATION GENERIC Care Teams Aquatic Scientist Relationship Specialty Start Date End Date Jamaal Ibarra DO PCP - General 10/22/17
--- OUTSIDE RECORDS SUMMARY | 2025-03-06 20:05 | XMS_ITS | Encounter Summary ---
Author Organization [facility] Healthcare Address [address] [place] [address] Care Team Providers Care Table Games Dealer Name Role Phone Jamaal Ibarra DO Primary Care Provider +1- [phone] Reason for Visit * Diagnostic Imaging (Routine) - Closed Specialty Diagnoses / Procedures Referred By Liz borrero Referred To Contact Procedures Breast Imaging US Outside Reference Saul Ortiz NP Phone: tel: fax: Referral ID Status Reason Start Date Expiration Date Visits Re quested Visits Authorized [id number] Closed 10/16/2022 11/15/2023 1 1 Encounter Details Date Type Department Care Team (Late st Contact Info) Description 07/15/2019 Hospital Encounter [facility]) [facility] [place], [place] [id number] Social History Tobacco Use Types Packs/Day Years [...] on file Legal Sex Female 12:16 AM GREEN END MAN Gender Identity Not on file Sexual Orientation [...] CDT) Impressions [facility] - 10/16/2022 11:47 AM GREEN END MAN These images are for Reference purposes only and have not been reviewed by [facility] Radiology. There will be no report generated by a [facility] Radiologist. Narrative [facility] - 10/16/2022 11:47 AM GREEN END MAN EXAMINATION: Images For Reference Purposes Only us Saul Ortiz NP IMG MAMMO PROCEDURES Final Result [facility] documented in this encounter Visit Diagnoses Not on filedocumented in this encounter Care Teams Table Games Dealer Relationship Specialty Start Date End Date Jamaal Ibarra DO PCP - General 10/22/17 documented as of this encounter
--- OUTSIDE RECORDS SUMMARY | 2025-03-06 20:05 | XMS_ITS | Encounter Summary ---
Author Organization [facility] Address [address] [place] [address] Phone Care Team Providers Care Video Tape Transferrer Name Role Phone Jamaal Ibarra DO Primary Care Provider +1- [phone] Encounter Details Date Type Department Care Team (Late st Contact Info) Description 08/03/2021 Orders Only [facility] Rheumatology [address] [facility] 5th [place] [address] [place] [address] Jana Medley, B.A. Social History Tobacco Use Types Packs/Day Years Used Date Smoking Tobacco: Never Comments Unknown Sex and Gender Information Value Date Recorded Sex Assigned at Not on file Legal Sex Female 12:16 AM INSPECTION MANAGER Gender Identity Not on file Sexual Orientation Not on file documented as of this encounter Plan of Treatment Not on file documented as of this encounter Visit Diagnoses Not on filedocumented in this encounter Care Teams Video Tape Transferrer Relationship Specialty Start Date End Date Jamaal Ibarra DO PCP - General 10/22/17 documented as of this encounter
--- OUTSIDE RECORDS SUMMARY | 2025-03-06 20:05 | XMS_ITS | Encounter Summary ---
Author Organization [facility] Healthcare Address [address] [place] [address] Care Team Providers Care Manager Intermediate Name Role Phone Jamaal Ibarra DO Primary Care Provider +1- [phone] Reason for Visit * Diagnostic Imaging (Routine) - Closed Specialty Diagnoses / Procedures Referred By Liz borrero Referred To Contact Procedures Breast Imaging US Outside Reference Saul Ortiz NP Phone: tel: fax: Referral ID Status Reason Start Date Expiration Date Visits Re quested Visits Authorized [id number] Closed 10/16/2022 11/15/2023 1 1 Encounter Details Date Type Department Care Team (Late st Contact Info) Description 04/29/2020 Hospital Encounter [facility] [address] [place] [address] Social History Tobacco Use Types Packs/Day [...] on file Legal Sex Female 12:16 AM COMMUNICATIONS DIRECTOR Gender Identity Not on file Sexual [...] CDT) Impressions [facility] - 10/16/2022 11:47 AM COMMUNICATIONS DIRECTOR These images are for Reference purposes only and have not been reviewed by [facility] Radiology. There will be no report generated by a [facility] Radiologist. Narrative [facility]MO[facility] - 10/16/2022 11:47 AM COMMUNICATIONS DIRECTOR EXAMINATION: Images For Reference Purposes Only us Saul Ortiz NP IMG MAMMO PROCEDURES Final Result [facility] documented in this encounter Visit Diagnoses Not on filedocumented in this encounter Care Teams Manager Intermediate Relationship Specialty Start Date End Date Jamaal Ibarra DO PCP - General 10/22/17 documented as of this encounter
--- OUTSIDE RECORDS SUMMARY | 2025-03-06 20:05 | XMS_ITS | Clinical Summary ---
Author Organization [facility] Address [address] [place] [address] Care Team Providers Care Teletype Installer Name Role Phone Jamaal Ibarra DO Primary Care Provider +1- [phone] Allergies Active Allergy Reactions Criticality Noted Date [...] 09/06/2021 Assessment & Plan (09/06/2021 9:49 AM FURNITURE RESTORER): -Fatigue is most likely multifactorial as she [...] 09/16/2017 Assessment & Plan (09/06/2021 9:45 AM FURNITURE RESTORER): -Taking weekly Vitamin D -Will repeat Vitamin D level Type 1 diabetes mellitus with hyperglycemia 03/2017 Nocturia 06/12/2017 Gastroesophageal reflux disease 10/27/2014 Seronegative rheumatoid arthritis 10/27/2014 Swelling of hand 10/27/2014 Fibroid 10/21/2014 Fibromyalgia 06/09/2014 Hypertension 04/27/2014 Assessment & Plan (09/06/2021 9:45 AM FURNITURE RESTORER): -BP today is 121/81 -Will continue same antihypertensive medications at this time. Hyperlipidemia 04/27/2014 Assessment & Plan (09/06/2021 9:45 AM FURNITURE RESTORER): -Will continue statin as it is being [...] 01/22/2023 Assessment & Plan (09/06/2021 9:45 AM FURNITURE RESTORER): -Currently taking MDI -A1C on 09/06/21 was [...] 06/12/201701/05 Assessment & Plan (09/06/2021 9:07 AM FURNITURE RESTORER): -States she has been off of LT4 for 2 years -Will repeat TFT. Encounters Date Type Department Care Team Description 03/03/2025 2:00 PM CDT Office Visit [facility] Endocrinology Metabolism and Lipid [address] [facility] 13th [place] [address] [place] [address] Sarah Haskins MD Type 1 diabetes mellitus with hyperglycemia (HCC) (Primary Dx); Hyperlipidemia, unspecified hyperlipidemia type; Vitamin D deficiency; Thyroid nodule 02/26/2025 11:15 AM CDT Procedure visit [facility] Ophthalmology [address] 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 (HCC) (Primary Dx); Vitreous hemorrhage of left eye (HCC); 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 02/11/2025 Orders Only [facility] Cardiology [address] [place] [address] Kayla Conklin NP from Last [...] on file Legal Sex Female 12:16 AM FURNITURE RESTORER Gender Identity Not on file Sexual Orientation [...] Priority Date/Time Associated Diagnosis Comments POCT GLUCOSE [id number] Routine 03/03/2025 1: 56 PM CDT Type [...] HEMOGLOBIN A1C Routine 10/23/2024 8 :29 AM FURNITURE RESTORER Type 1 diabetes mellitus with hyperglycemia (HCC) [...] mg/0.05 mL Route: intravitreal, Site: Left Eye [facility]: [id number], Lot: [id number], Expiration date: 04/05/2026, Waste: 0 mL Medication [...] Dorman MD LAB BLOOD ORDERABLES Final Result [facility] Department [place] [address] * Albumin Creatinine Ratio, Urine (01/24/2024) Urine us Sarah Haskins MD LAB URINE ORDERABLES Final Resu lt EXTERNAL LAB * TSH (01/24/2024) Blood us Sarah Haskins MD LAB BLOOD ORDERABLES Final Resu lt Performing Organization Address [facility] Co de Phone Number EXTERNAL LAB * Lipid panel (01/24/2024) Blood Sarah Haskins MD LAB BLOOD ORDERABLES Final Resu lt Performing Organization Address [facility] Co de Phone Number EXTERNAL LAB [...] nipple by physician COMPARISON: Outside exams from [place] 09/13/2022to 07/08/2019 TECHNIQUE: Full field digital mammographic [...] 07/12/2021 5:08 PM CDT Performed at: - Lab[address] [id number] Roller Coaster Operator: Link Myles PhD, Phone: [phone] us Lorrie Saavedra MD LAB MICROBIOLOGY - GENERAL ORD ERABLES Final Result [facility] - 01 from Last 3 Months or Most Recently Relevant to Health Maintenance Insurance [place] [address] [place] BL CHOICE PRF PPO [place] [facility] PPO [place] GENERIC COPAY ASSIST BL CHOICE PRF P[place] WORKERS COMPENSATION GENERIC WORKERS COMPENSATION GENERIC Care Teams Teletype Installer Relationship Specialty Start Date End Date Jamaal Ibarra DO PCP - General 10/22/17
--- OUTSIDE RECORDS SUMMARY | 2025-03-06 20:05 | XMS_ITS | Encounter Summary ---
Author Organization [facility] Healthcare Address [address] [place] [address] Care Team Providers Care Compliance Vice President Name Role Phone Jamaal Ibarra DO Primary Care Provider [phone]- [phone] Reason for Visit * Diagnostic Imaging (Routine) - Closed Specialty Diagnoses / Procedures Referred By Liz borrero Referred To Contact Procedures Breast Imaging Diagnostic Outside Reference Saul Ortiz NP Phone: tel: fax: Referral ID Status Reason Start Date Expiration Date Visits Re quested Visits Authorized [id number] Closed 10/16/2022 11/15/2023 1 1 Encounter Details Date Type Department Care Team (Late st Contact Info) Description 07/15/2019 12:05 AM CDT Hospital Encounter [facility]iology [facility] [address] [place] [address] Social History Tobacco Use Types Packs/Day Years [...] on file Legal Sex Female 12:16 AM CORPORATE ASSOCIATE Gender Identity Not on file Sexual Orientation [...] CDT) Impressions [facility] - 10/16/2022 11:47 AM CORPORATE ASSOCIATE These images are for Reference purposes only and have not been reviewed by [facility] Radiology. There will be no report generated by a [facility] Radiologist. Narrative [facility]_MAMMO[facility] - 10/16/2022 11:47 AM CORPORATE ASSOCIATE EXAMINATION: Images For Reference Purposes Only us Saul Ortiz NP IMG MAMMO PROCEDURES Final Result [facility] documented in this encounter Visit Diagnoses Not on filedocumented in this encounter Care Teams Compliance Vice President Relationship Specialty Start Date End Date Jamaal Ibarra DO PCP - General 10/22/17 documented as of this encounter
--- OUTSIDE RECORDS SUMMARY | 2025-03-06 20:05 | XMS_ITS | Encounter Summary ---
Author Organization [facility] Healthcare Address [address] [place] [address] Care Team Providers Care Zoo Veterinarian Name Role Phone Jamaal Ibarra DO Primary Care Provider +1- [phone] Reason for Visit * Diagnostic Imaging (Routine) - Closed Specialty Diagnoses / Procedures Referred By Liz borrero Referred To Contact Procedures Breast Imaging Diagnostic Outside Reference Saul Ortiz NP Phone: tel: fax: Referral ID Status Reason Start Date Expiration Date Visits Re quested Visits Authorized [id number] Closed 10/16/2022 11/15/2023 1 1 Encounter Details Date Type Department Care Team (Late st Contact Info) Description 04/29/2020 12:05 AM CDT Hospital Encounter [facility]iology [facility] [address] [place] [address] Social History Tobacco Use Types Packs/Day Years [...] on file Legal Sex Female 12:16 AM FACING BASTER Gender Identity Not on file Sexual Orientation [...] CDT) Impressions [facility] - 10/16/2022 11:47 AM FACING BASTER These images are for Reference purposes only and have not been reviewed by [facility] Radiology. There will be no report generated by a [facility] Radiologist. Narrative RAD_MAMMO[facility] - 10/16/2022 11:47 AM FACING BASTER EXAMINATION: Images For Reference Purposes Only us Saul Ortiz NP IMG MAMMO PROCEDURES Final Result [facility] documented in this encounter Visit Diagnoses Not on filedocumented in this encounter Care Teams Zoo Veterinarian Relationship Specialty Start Date End Date Jamaal Ibarra DO PCP - General 10/22/17 documented as of this encounter
--- OUTSIDE RECORDS SUMMARY | 2025-03-06 20:05 | XMS_ITS | CONTINUITY OF CARE DOCUMENT ---
Author Name shyanalili Address Unknown Organization [facility] Address [address] [place] [address] [address] [place] [address] Phone [phone] Care Team Providers Care Drag Seiner Name Role Phone Edwar JAY, Rigoberto Unavailable [phone] JANNETTE JAY, LAYTON Unavailable [phone] JANETH GUZMAN DO Unavailable INSURANCE PROVIDERS Payer name Policy type / Coverage type [place] red green party ID [facility] [id number]
--- OUTSIDE RECORDS SUMMARY | 2025-03-06 20:05 | XMS_ITS | Encounter Summary ---
Author Organization [facility] Healthcare Address [address] [place] [address] Care Team Providers Care It Security Consulting Director Name Role Phone Jamaal Ibarra DO Primary Care Provider [phone]- [phone] Reason for Visit * Diagnostic Imaging (Routine) - Closed Specialty Diagnoses / Procedures Referred By Liz borrero Referred To Contact Procedures Breast Imaging Screening Outside Reference Saul Ortiz NP Phone: tel: fax: Referral ID Status Reason Start Date Expiration Date Visits Re quested Visits Authorized [id number] Closed 10/16/2022 11/15/2023 1 1 Encounter Details Date Type Department Care Team (Late st Contact Info) Description 07/08/2019 Hospital Encounter [facility] [place], [place] [id number] Social History Tobacco Use Types Packs/Day Years [...] on file Legal Sex Female 12:16 AM SQL SSIS DEVELOPER Gender Identity Not on file Sexual [...] CDT) Impressions [facility] - 10/16/2022 11:48 AM SQL SSIS DEVELOPER These images are for Reference purposes only and have not been reviewed by [facility] Radiology. There will be no report generated by a [facility] Radiologist. Narrative [facility] - 10/16/2022 11:48 AM SQL SSIS DEVELOPER EXAMINATION: Images For Reference Purposes Only us Saul Ortiz NP IMG MAMMO PROCEDURES Final Result [facility] documented in this encounter Visit Diagnoses Not on filedocumented in this encounter Care Teams It Security Consulting Director Relationship Specialty Start Date End Date Jamaal Ibarra DO PCP - General 10/22/17 documented as of this encounter
--- OUTSIDE RECORDS SUMMARY | 2025-03-06 20:05 | XMS_ITS | Encounter Summary ---
Author Organization [facility] [employer] Address [address] [place] [address] Care Team Providers Care Gas Worker Name Role Phone Jamaal bIarra DO Primary Care Provider Encounter Details Date Type Department Care Team (Latest Contact Info) Description 03/23/2002 Outpatient Historical [facility] [place] [facility] [place] [address] [place] [address] MENSTRUAL DISORDER NEC (Primary Dx) Social History Tobacco Use Types Packs/Day Years Used Date Smoking Tobacco: Never Assessed Comments Unknown Sex and Gender Information Value Date Recorded Sex Assigned at Not on file Legal Sex Female 3:50 AM HOOK TENDER Gender Identity Not on file Sexual [...] documented as of this encounter Care Teams Gas Worker Relationship Specialty Start Date End Date Jamaal Ibarra DO [address] [place] [address] PCP - General Internal Medicine 07/11/18 documented as of this encounter
--- OUTSIDE RECORDS SUMMARY | 2025-03-06 20:05 | XMS_ITS | Encounter Summary ---
Author Organization [facility] Address [address] [place] [address] Phone Care Team Providers Care Director Electronics Name Role Phone Jamaal Ibarra DO Primary Care Provider [phone]- [phone] Encounter Details Date Type Department Care Team (Latest Contact Info) Description 10/14/2019 Orders Only [facility] Scanning, Provider Social History Tobacco Use Types Packs/Day Years Used Date Smoking Tobacco: Never Comments Unknown Sex and Gender Information Value Date Recorded Sex Assigned at Not on file Legal Sex Female 12:16 AM HOME ECONOMICS TEACHER Gender Identity Not on file Sexual [...] filedocumented in this encounter Care Teams Director Electronics Relationship Specialty Start Date End Date Jamaal Ibarra DO PCP - General 10/22/17 documented as of this encounter
--- OUTSIDE RECORDS SUMMARY | 2025-03-06 20:06 | XMS_ITS | Clinical Summary ---
Author Organization [facility] Address [address] [place] [address] Care Team Providers Care Vacuum Furnace Operator Name Role Phone Jamaal Ibarra DO [...] - 02/02/2025 10:23 AM CDT Hospital Encounter [facility] Trauma and Surgery [address] [place] [address] Citlalli Altamirano MD Pickrell, Aaron A, MD Hughes, Theresa, MD Keech, Rachel C, Chronic ulcer of great toe of right foot, limited to breakdown of skin ([facility]) Discharge Disposition: Home or Self Care 01/29/2025 Mobile Encounter [facility] Adult [facility]ists [address] [id number] Citlalli Altamirano MD from Last 3 Months [...] on file 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 RBC 3.61(L) 3.90 - 4.90 M/uL 02/01/2025 9:40 AM CDT [facility] HEMOGLOBIN 10.4(L) 11.8 - 14.8 g/dL 02/01/2025 9:40 AM CDT [facility] HEMATOCRIT 33.5(L) 35.5 - 44.0 % 02/01/2025 9:40 AM CDT [facility] MCV 92.8 82.0 - 99.0 fL 02/01/2025 9:40 AM CDT [facility] MCH 28.8 27.2 - 32.6 pg 02/01/2025 9:40 AM CDT [facility] MCHC 31.0(L) 31.5 - 35.5 g/dL 02/01/2025 9:40 AM CDT [facility] RDW 13.0 11.5 - 14.5 % 02/01/2025 9:40 AM CDT [facility] - [facility] RDW-STDEV 43.9 37.1 - 48.7 fL 02/01/2025 9:40 AM CDT [facility] - [facility] PLATELETS 278 140 - 350 K/uL 02/01/2025 9:40 AM CDT [facility] - [facility] MPV 9.6 9.3 - 12.4 fL 02/01/2025 9:40 AM CDT [facility] - . [facility] NEUTROPHILS 76 % 02/01/2025 9:40 AM CDT [facility] - . [facility] LYMPHOCYTES 15 % 02/01/2025 9:40 AM CDT [facility] - . [facility] MONOCYTES 5 % 02/01/2025 9:40 AM CDT [facility] - . [facility] EOSINOPHILS 3 % 02/01/2025 9:40 AM CDT [facility] - . [facility] BASOPHILS 1 % 02/01/2025 9:40 AM [employer] [facility] - . [facility] IMMATURE GRANULOCYTES 1 % 02/01/2025 9:40 AM [employer] [facility] - . [facility] Comment:IG (Immature Granulo cyte) count includes Metamyelocytes, Myelocytes, and Promyelocytes NEUTROPHIL ABSOLUTE 6.69 1.90 - 7.00 K/uL 02/01/2025 9:40 AM CDT [facility] - . [facility] LYMPHOCYTE ABSOLUTE 1.36 0.70 - 4.50 K/uL 02/01/2025 9:40 AM CDT [facility] - . [facility] MONOCYTE ABSOLUTE 0.44 0.10 - 1.30 K/uL 02/01/2025 9:40 AM [facility] LABORATORY SERVICES - . [facility] EOSINOPHIL ABSOLUTE 0.23 0.00 - 0.70 K/uL 02/01/2025 9:40 AM [employer] [facility] - . [facility] BASOPHILS ABSOLUTE 0.05 0.00 - 0.20 K/uL 02/01/2025 9:40 AM [facility] LABORATORY SERVICES - . [facility] IMMATURE GRANULOCYTES ABSOLUTE 0.09(H) 0.00 - 0.03 K/uL 02/01/2025 9:40 AM [facility] - [facility] Blood Venipuncture / Unknown 02/01/2025 8:41 AM CDT 02/01/2025 9:19 AM CDT Lee Ann Berman MD HEMATOLOGY ORDERABLES Final Re sult Performing Organization Address [facility]/ZIP Co de Phone Number [facility] [employer] [facility] CLIA# [id number] [address] [place] [address] * (ABNORMAL) C-REACTIVE PROTEIN (02/01/2025 8:41 AM CDT) Only the most recent of2 resultswithin the time period is included. CRP 19.8(H) <5.0 mg/L 02/01/2025 12:44 PM T [facility] Blood Venipuncture / Unknown 02/01/2025 8:41 AM CDT 02/01/2025 9:19 AM CDT Lee Ann Berman MD CHEMISTRY ORDERABLES Final Res ult Performing Organization Address [facility] Co de Phone Number [facility] [employer] [facility] CLIA# [id number] [address] [place] [address] * (ABNORMAL) BASIC METABOLIC PANEL (02/01/2025 8:41 AM CDT) Only the most recent of3 resultswithin the time period is included. SODIUM 139 136 - 145 mmol/L 02/01/2025 10:01 AM T [facility] POTASSIUM 3.6 3.5 - 5.0 mmol/L 02/01/2025 10:01 AM T [facility] - [facility] CHLORIDE 108(H) 98 - 107 mmol/L 02/01/2025 10:01 AM T [facility] - . [facility] CO2 20(L) 22 - 29 mmol/L 02/01/2025 10:01 AM T [facility] CALCIUM 9.8 8.6 - 10.2 mg/dL 02/01/2025 10:01 AM T [facility] - . [facility] BUN 22(H) 6 - 20 mg/dL 02/01/2025 10:01 AM [facility] CREATININE 1.90(H) 0.51 - 0.95 mg/dL 02/01/2025 10:01 AM [facility] GLUCOSE 167(H) 74 - 99 mg/dL 02/01/2025 10:01 AM [facility] GFR 32(L) >=60 mL/min/1.7 3 sq meter 02/01/2025 10:01 AM [facility] Comment:eGFR calculated with 2020 CKD-EPI equation. Vegetarian diet, extremely high or low muscle mass, and may affect results. Cystatin C with Glomerular Filtration Rate is a suitable alternative for these patients. ANION GAP 11 8 - 16 mmol/L 02/01/2025 10:01 AM [facility] [employer] [facility] Blood Venipuncture / Unknown 02/01/2025 8:41 AM CDT 02/01/2025 9:19 AM CDT us Lee Ann Berman MD CHEMISTRY ORDERABLES Final Res ult [facility] [employer] [facility]# [id number] [address] [place], [place] [address] [place] [address] * (ABNORMAL) URINALYSIS WITH REFLEX MICROSCOPIC (01/31/2025 11:40 AM CDT) COLOR UA Pale Yellow Pale to Dark Yellow 01/31/2025 12:14 PM [facility] CLARITY UA Clear Clear 01/31/2025 12:14 PM [facility] SPECIFIC GRAVITY UA 1.006 1.003 - 1.035 01/31/2025 12:14 PM [facility] [employer] [facility] PH UA 7.0 5.0 - 8.0 01/31/2025 12:14 PM [facility] LEUKOCYTE ESTERASE UA Negative Negative 01/31/2025 12:14 PM [facility] NITRITE UA Negative Negative 01/31/2025 12:14 PM CDT [employer] LABORATORY SERVICES - [facility] PROTEIN UA 2+(A) Negative 01/31/2025 12:14 PM CDT [employer] [facility] SERVICES - [facility] GLUCOSE UA Negative Negative 01/31/2025 12:14 PM CDT [employer] [facility] SERVICES - [facility] KETONES UA Negative Negative 01/31/2025 12:14 PM CDT [employer] [facility] SERVICES - [facility] UROBILINOGEN UA Normal <2.0 mg/dL 12:14 PM CDT [employer] [facility] SERVICES - [facility] BILIRUBIN UA Negative Negative 01/31/2025 12:14 PM CDT [facility] - [facility] BLOOD UA Negative Negative 01/31/2025 12:14 PM CDT [employer] [facility]ORY SERVICES - [facility] WBC UA 0-2 0 - 2 /hpf 01/31/2025 12:14 PM T [employer] [facility]ATORY SERVICES - [facility] RBC UA 0-2 0 - 2 /hpf 01/31/2025 12:14 PM CDT [facility] - [facility] BACTERIA UA Negative Negative /hpf 01/31/2025 12:14 PM T [facility] - [facility] EPITHELIAL CELLS, URINE 0-5 0 - 5 /hpf 01/31/2025 12:14 PM T [facility] - [facility] Urine URINE SPECIMEN OBTAINED BY CLEAN CATCH PROCEDURE / Unknown 01/31/2025 11:40 AM CDT 01/31/2025 11:40 AM CDT Lee Ann Berman MD URINE ORDERABLES Final Result [facility] [employer] SERVICES - [facility] CLIA# [id number] [address] [place], [place] [id number] * (ABNORMAL) CBC WITHOUT DIFFERENTIAL (01/31/2025 9:10 AM CDT) Only the most recent of2 resultswithin the time period is included. WBC 7.6 4.0 - 9.8 K/uL 01/31/2025 9:21 AM CDT [employer] [facility]ORATORY SERVICES - [facility] RBC 3.54(L) 3.90 - 4.90 M/uL 01/31/2025 9:21 AM CDT [facility] - [facility] HEMOGLOBIN 10.3(L) 11.8 - 14.8 g/dL 01/31/2025 9:21 AM T [facility] SERVICES - [facility] HEMATOCRIT 32.6(L) 35.5 - 44.0 % 01/31/2025 9:21 AM T [facility] SERVICES - [facility] MCV 92.1 82.0 - 99.0 fL 01/31/2025 9:21 AM CDT [facility] - [facility] MCH 29.1 27.2 - 32.6 pg 01/31/2025 9:21 AM CDT [facility] SERVICES - [facility] MCHC 31.6 31.5 - 35.5 g/dL 01/31/2025 9:21 AM T [facility] - [facility] PLATELETS 247 140 - 350 K/uL 01/31/2025 9:21 AM T [facility] - [facility] MPV 9.7 9.3 - 12.4 fL 01/31/2025 9:21 AM T [facility] - [facility] RDW 12.9 11.5 - 14.5 % 01/31/2025 9:21 AM T [facility] - [facility] RDW-STDEV 43.7 37.1 - 48.7 fL 01/31/2025 9:21 AM T [facility] - [facility] Blood Venipuncture / Unknown 01/31/2025 9:10 AM CDT 01/31/2025 9:14 AM CDT us Parris Summers MD HEMATOLOGY ORDERABLES Final Result [facility]# [id number] [address] [address] [place] [address] * MAGNESIUM LEVEL (01/31/2025 9:10 AM CDT) Only the most recent of2 resultswithin the time period is included. MAGNESIUM 1.8 1.6 - 2.6 mg/dL 01/31/2025 12:30 PM CDT [facility] Blood Venipuncture / Unknown 01/31/2025 9:10 AM CDT 01/31/2025 9:14 AM CDT us Lee Ann Berman MD CHEMISTRY ORDERABLES Final Res ult [facility] [employer] [facility] CLIA# [id number] [address] [place] [address] [place] [id number] * US VENOUS DOPPLER LEG BILATERAL (01/30/2025 1:52 PM CDT) Anatomical Region Laterality Modality Lower Extremity Ultrasound 01/30/2025 1:32 PM CDT Narrative 01/31/2025 7:55 AM CDT [address] [address] [email or web address] Venous Exam Complete Lower Extremity Duplex Patient: Jennifer Londono Study ID: [id number] Gender: F : 1975 Age: 49 Race: CAU Height Study Date: 01/30/2025 Weight: Access. #: [id number] *Referring Physician:* Parris Summers Aaron A *Ordering Physician:* Parris Summers *Courtroom Reporter:* Lorrie Mendenhall Indications: R/O DVT perordering provider. [...] mm Prepared and Electronically Authenticated Nii Dawkins [id number] Procedure Note Nii Dawkins MD - 01/31/[address] [address] [email or web address] Venous Exam Complete Lower Extremity Duplex Patient: Jennifer Londono Study ID:[id number] Gender: F :1975 Age: 49 Race: CAU Height Study Date:01/30/2025 Weight: Access. #:[id number] *Referring Physician:Parris Li Aaron A *Ordering Physician:Parris LiCourtroom Reporter:Lorrie Giraldo Indications: R/O DVT perordering provider. History: [...] mm Prepared and Electronically Authenticated Nii Dawkins [id number] Parris Summers MD US ORDERABLES Final Result * UREA NITROGEN/CREATININE RATIO, URINE (01/30/2025 9:53 AM CDT) UREA NITROGEN, URINE 429 mg/dL 01/30/2025 10:49 AM CDT [facility] Comment:Reference range not established CREATININE, URINE 60.4 29.0 - 226.0 mg/dL 01/30/2025 10:49 AM CDT [facility] Comment:Reference Range vari es with fluid intake and diet. UREA/CREAT RATIO, UR 7.1 Reference Range not established mg/mg Creatinine 01/30/2025 10:49 AM CDT [facility] Urine URINE SPECIMEN OBTAINED BY CLEAN CATCH PROCEDURE / Unknown Collection / Unknown 01/30/2025 9:53 AM CDT 01/30/2025 10:04 AM CDT Parris Summers MD URINE ORDERABLES Final Resul t [facility] CLIA# [id number] [address] [place] [address] * SODIUM, RANDOM URINE (01/30/2025 9:53 AM CDT) SODIUM, URINE 32 mmol/L 01/30/2025 10:40 AM CDT [facility] [employer] [facility] Comment:Reference range not established Urine URINE SPECIMEN OBTAINED BY CLEAN CATCH PROCEDURE / Unknown Collection / Unknown 01/30/2025 9:53 AM CDT 01/30/2025 10:04 AM CDT Parris Summers MD URINE ORDERABLES Final Resul t [facility] CLIA# [id number] [address] [place] [address] * (ABNORMAL) PROTEIN/CREATININE RATIO, URINE (01/30/2025 9:53 AM CDT) PROTEIN CONCENTRATION 233(H) 0 - 20 mg/dL 01/30/2025 10:52 AM CDT [facility] CREATININE, URINE 61.1 29.0 - 226.0 mg/dL 01/30/2025 10:52 AM CDT [facility] Comment:Reference Range vari es with fluid intake and diet. PROTEIN/CREAT RATIO, URINE 3.81(H) 0.00 - 0.19 mg/mg Creatinine 01/30/2025 10:52 AM CDT [facility] Urine URINE SPECIMEN OBTAINED BY CLEAN CATCH PROCEDURE / Unknown Collection / Unknown 01/30/2025 9:53 AM CDT 01/30/2025 10:04 AM CDT Parris Summers MD URINE ORDERABLES Final Resul t Performing Organization Address [facility]/ZIP Co de Phone Number [facility]# [id number] [address] [place] [address] * OSMOLALITY, URINE (01/30/2025 9:53 AM CDT) OSMOLALITY, URINE 287 50 - 1,200 mOsm/kg 01/30/2025 10:30 AM CDT [facility] Urine URINE SPECIMEN OBTAINED BY CLEAN CATCH PROCEDURE / Unknown Collection / Unknown 01/30/2025 9:53 AM CDT 01/30/2025 10:04 AM CDT Narrative [facility] - 01/30/2025 10:30 AM CDT Reference range: 50-1200 mOsm/kg H2O, depending on fluid intake. us Parris Summers MD URINE ORDERABLES Final Resul t Performing Organization Address City/[facility]/ZIP Co de Phone Number [facility] CLIA# [id number] [address] [place] [address] * OSMOLALITY (01/29/2025 7:53 PM CDT) OSMOLALITY 300 275 - 300 mOsm/kg 01/29/2025 9:21 PM CDT [facility] [employer] [facility] Blood Venipuncture / Unknown 01/29/2025 7:53 PM CDT 01/29/2025 8:18 PM CDT Parris Summers MD CHEMISTRY ORDERABLES Final R esult [facility] CLIA# [id number] [address] [place] [address] * MRI FOOT WO CONTRAST RIGHT (01/29/2025 [...] greatest dorsally. DICTATION LOCATION: Location 2 - [facility] Narrative 01/30/2025 7:54 AM CDT MRI FOOT [...] foot greatest dorsally. DICTATION LOCATION: Location - [facility] Parris Summers MD MR ORDERABLES Final Result * RESPIRATORY PATHOGEN PCR PANEL (01/29/2025 4:29 PM CDT) [facility] Respiratory Pathogen PCR Panel NOT DETECTED No respiratory pathogen nucleic acids detected. 01/29/2025 5:40 PM CDT [facility] COVID-19 PCR NOT DETECTED Not Detected 01/29/2025 5:40 PM CDT [facility] Upper Respiratory ENTIRE NASOPHARYNX / Unknown Collection / Unknown 01/29/2025 4:29 PM CDT 01/29/2025 4:44 PM CDT [facility] - 01/29/2025 5:40 PM CDT The Film [...] MICROBIOLOGY - GENERAL ORDER ISIAH Final Result [facility]# [id number] [address] [place] [address] [place] [address] * GI PATHOGEN PCR PANEL (01/29/2025 4:26 PM CDT) Pathologist [facility] [place] GI Pathogen PCR panel NOT DETECTED No nucleic acids detected. 01/29/2025 6:10 PM CDT [facility] Stool STOOL SPECIMEN / Unknown Collection / Unknown 01/29/2025 4:26 PM CDT 01/29/2025 4:37 PM CDT [facility] - 01/29/2025 6:10 PM CDT The Film [...] MICROBIOLOGY - GENERAL ORDER ISIAH Final Result [facility]# [id number] [address] [facility] [place] [address] * XR CHEST PA AND LATERAL 2 [...] * TSH REFLEXIVE (01/29/2025 2:08 PM CDT) [facility] TSH 1.92 0.27 - 4.20 uIU/mL 01/29/2025 4:01 PM CDT [facility] Blood Venipuncture / Unknown 01/29/2025 2:08 PM CDT 01/29/2025 3:14 PM CDT Parris Summers MD CHEMISTRY ORDERABLES Final R esult Performing Organization Address [facility]/ZIP Co de Phone Number [facility] CLIA# [id number] [address] [place] [address] * (ABNORMAL) IRON, TIBC, AND PERCENT SATURATION (01/29/2025 2:08 PM CDT) [facility] IRON 22(L) 37 - 145 ug/dL 01/29/2025 4:01 PM CDT [facility] TIBC 230(L) 250 - 450 ug/dL 01/29/2025 4:01 PM CDT [facility] IRON % SATURATION 10(L) 15 - 50 % 01/29/2025 4:01 PM CDT [facility] TRANSFERRIN 181(L) 200 - 360 mg/dL 01/29/2025 4:01 PM CDT [facility] Blood Venipuncture / Unknown 01/29/2025 2:08 PM CDT 01/29/2025 3:14 PM CDT Parris Summers MD CHEMISTRY ORDERABLES Final R esult [facility] CLTX# [id number] [address] [place] [address] * (ABNORMAL) SEDIMENTATION RATE (01/29/2025 2:08 PM CDT) [facility] ESR (SEDIMENTATION RATE) 76(H) <=30 mm/Hr 01/29/2025 4:00 PM CDT [employer] LABORATORY [facility] Blood Venipuncture / Unknown 01/29/2025 2:08 PM CDT 01/29/2025 3:15 PM CDT Parris Summers MD HEMATOLOGY ORDERABLES Final Result Performing Organization Address [facility] de Phone Number [facility] [employer] [facility]# [id number] [address] [place] [address] * (ABNORMAL) HEMOGLOBIN A1C (01/29/2025 2:08 PM CDT) HEMOGLOBIN A1C 8.4(H) <5.7 % 01/29/2025 3:35 PM CDT [employer] [facility] EST. AVG GLUCOSE, A1C 194 mg/dL 01/29/2025 3:35 PM CDT [employer] [facility] Blood Venipuncture / Unknown 01/29/2025 2:08 PM CDT 01/29/2025 3:15 PM CDT Narrative [facility] - 01/29/2025 3:35 PM CDT HGB A1C INTERPRETATION NORMAL: <5.7% PRE-DIABETES: 5.7 - 6.4% DIABETES: 6.5% OR GREATER Parris Summers MD CHEMISTRY ORDERABLES Final R esult Performing Organization Address City/[facility]/ZIP Co de Phone Number [facility] [employer] [facility]# [id number] [address] [place] [address] * (ABNORMAL) COMPREHENSIVE METABOLIC PANEL (01/29/2025 2:08 PM CDT) Pathologist [facility] [place] SODIUM 139 136 - 145 mmol/L 01/29/2025 4:01 PM CDT [employer] [facility] POTASSIUM 3.6 3.5 - 5.0 mmol/L 01/29/2025 4:01 PM CDT [employer] [facility] CHLORIDE 109(H) 98 - 107 mmol/L 01/29/2025 4:01 PM [facility] CO2 20(L) 22 - 29 mmol/L 01/29/2025 4:01 PM [facility] CALCIUM 9.8 8.6 - 10.2 mg/dL 01/29/2025 4:01 PM [facility] BUN 34(H) 6 - 20 mg/dL 01/29/2025 4:01 PM [facility] CREATININE 2.51(H) 0.51 - 0.95 mg/dL 01/29/2025 4:01 PM [facility] [employer] [facility] GLUCOSE 134(H) 74 - 99 mg/dL 01/29/2025 4:01 PM [facility] TOTAL PROTEIN 6.2(L) 6.7 - 8.6 g/dL 01/29/2025 4:01 PM [facility] ALBUMIN 3.1(L) 3.5 - 5.2 g/dL 01/29/2025 4:01 PM [facility] BILIRUBIN TOTAL 0.2(L) 0.3 - 1.2 mg/dL 01/29/2025 4:01 PM [facility] ALKALINE PHOSPHATASE 90 35 - 104 U/L 01/29/2025 4:01 PM [facility] AST 8 <33 U/L 01/29/2025 4:01 PM [facility] [employer] [facility] ALT 9 <34 U/L 01/29/2025 4:01 PM [facility] [employer] [facility] GFR 23(L) >=60 mL/min/1.7 3 sq meter 01/29/2025 4:01 PM [facility] [employer] [facility] Comment:eGFR calculated with 2020 CKD-EPI equation. Vegetarian diet, extremely high or low muscle mass, and may affect results. Cystatin C with Glomerular Filtration Rate is a suitable alternative for these patients. ANION GAP 10 8 - 16 mmol/L 01/29/2025 4:01 PM CDT [facility] Blood Venipuncture / Unknown 01/29/2025 2:08 PM CDT 01/29/2025 3:14 PM CDT Narrative [facility] - 01/29/2025 4:01 PM CDT Samples containing indocyanine green cause interferences on Total and/or Direct Bilirubin and must not be measured. us Parris Summers MD CHEMISTRY ORDERABLES Final R esult [facility] CLIA# [id number] [address] [place] [place] [address] from Last 3 Months Insurance [facility] PREFERRED RX [employer] Commercial Advance Directives For more information, please contact: [phone] * Full Code (Latest Code Status on File) Date Activated Date Inactivated Comments 01/29/2025 1:42 PM 02/02/2025 12:23 PM Care Teams Vacuum Furnace Operator Relationship Specialty Start Date End Date Jamaal Ibarra DO [address] [address] PCP - General Internal Medicine 07/11/18
--- OUTSIDE RECORDS SUMMARY | 2025-03-06 20:06 | XMS_ITS | Clinical Summary ---
Author Organization [facility] Address [address] [place] [id number] Phone Care Team Providers Care Charger Operator Helper Name Role Phone JeanniesvetaJamaal jernigan Primary Care Provider Allergies Active Allergy Reactions [...] 2 Active ergocalciferol (VITAMIN D2) 1.25 MG (91859 UT) capsule TAKE 1 CAPSULE BY MOUTH [...] Comments Blood Pressure 128/72 09/05/2022 8:31 AM AGRICULTURAL PURCHASING AGENT Pulse - - Temperature 36.5 C (97.7 F) 09/05/2022 8:31 AM AGRICULTURAL PURCHASING AGENT Respiratory Rate 18 09/05/2022 8:31 AM AGRICULTURAL PURCHASING AGENT Oxygen Saturation - - Inhaled Oxygen Concentration - - Weight 121 kg (267 lb) 09/05/2022 8:31 AM AGRICULTURAL PURCHASING AGENT Height 172.7 cm (5' 8) 09/05/2022 8:31 AM AGRICULTURAL PURCHASING AGENT Body Mass Index 40.6 09/05/2022 8:31 AM AGRICULTURAL PURCHASING AGENT Plan of Treatment Health Maintenance Due Date Last Done Comments Influenza Vaccine (Season Ended) 2025 07/07/2020, 07/30/2019, 07/16/2018, Additional history exists Insurance [facility] Care Teams Charger Operator Helper Relationship Specialty Start Date End Date Jamaal Ibarra DO [address] [place] [address] PCP - General Internal Medicine 05/07/22
--- OUTSIDE RECORDS SUMMARY | 2025-03-06 20:06 | XMS_ITS | Clinical Summary ---
Author Organization [facility] [employer] Address [address] [place] [address] Care Team Providers Care Patient Financial Services Coordinator Name Role Phone Lebron Pugh V. DO Unavailable [phone] Jamaal Ibarra DO Primary Care Provider [phone] Source Comments [facility],non-owned Affiliates and Associated Physician Practices is amultiple site organization consisting of ambulatory clinics and hospital sitesin [place], [place], [place] and [place]. This disclosure is being madepursuant to the Care Everywhere program and may not contain all information available regarding this patient. Last updated 18.[facility] Allergies Active Allergy Reactions Criticality Noted [...] tablet 2 Active vitamin D, ergocalciferol, (DRISDOL) 63157 UNITS capsule 1 Active gabapentin (NEURONTIN) 300 MG capsule 2 Active simvastatin (ZOCOR) 20 MG tablet 1 Active traMADol (ULTRAM) 50 MG tablet 1 014 Active traZODone (DESYREL) 50 MG tablet 6 Active zolpidem (AMBIEN) 10 MG tablet 5 Active megestrol (MEGACE) 40 MG tablet Take 1 Tab by mouth once daily. 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 Not on file Not on file Last Filed Vital Signs Vital Sign Reading Time Taken Comments Blood Pressure 126/74 10/21/2014 11:57 AM SUPERINTENDENT STATIONS Pulse 102 09/16/2013 1:06 PM SUPERINTENDENT STATIONS Temperature 36.8 C (98.2 F) 09/16/2013 1:06 PM SUPERINTENDENT STATIONS Respiratory Rate 20 09/16/2013 1:06 PM SUPERINTENDENT STATIONS Oxygen Saturation 98% 09/16/2013 1:06 PM SUPERINTENDENT STATIONS Inhaled Oxygen Concentration - - Weight 89.8 kg (198 lb) 10/21/2014 11:57 AM SUPERINTENDENT STATIONS Height 172.7 cm (5' 8) 10/21/2014 11:57 AM SUPERINTENDENT STATIONS Body Mass Index 30.11 10/21/2014 11:57 AM SUPERINTENDENT STATIONS Plan of Treatment Health Maintenance Due Date [...] HPV MRNA E6/E7 Routine 10/21/2014 1:52 PM SUPERINTENDENT STATIONS Routine gynecological examination MAMMO BILAT SCREENING Routine 09/22/2013 8:09 AM SUPERINTENDENT STATIONS Screening COMPREHENSIVE METABOLIC PANEL Routine 08/22/2013 8:00 AM SUPERINTENDENT STATIONS DM w/o Complication Type II, Uncontrolled HTN (hypertension), benign Abdominal pain, RUQ (right upper quadrant) Ketonuria HEMOGLOBIN A1C Routine 08/22/2013 8:00 AM SUPERINTENDENT STATIONS DM w/o Complication Type II, Uncontrolled MICROALB/CREAT RATIO URINE RANDOM PANEL Routine 08/21/2013 9:29 AM SUPERINTENDENT STATIONS DM w/o Complication Type II, Uncontrolled from Last 3 Months or Most Recently Relevant to Health Maintenance Results * PAP THIN PREP REFLX HPV (PO REF LAB) (10/21/2014 1:52 PM SUPERINTENDENT STATIONS) Clinical Information [facility] Comment:Routine exam LMP [facility] [...] has been evaluated with computer assisted technology. Master Merchandiser [facility] Comment: BKA, CT(ASCP) Test Performed at: [facility] [address] LAURENCE JO MD ENTIRE ENDOCERVIX / Unknown 10/21/2014 1:52 PM SUPERINTENDENT STATIONS 10/22/2014 10:09 AM SUPERINTENDENT STATIONS Bienvenido Mcnair Jr., MD LAB - PATHOLOGY/CYTOL OGY ORDERABLES Final Result [address] [address] * MAMM SCREENING DIGITAL IMAGE BILAT G0202 (09/22/2013 8:09 AM SUPERINTENDENT STATIONS) Anatomical Region Laterality Modality Breast Bilateral Mammography 09/22/2013 11:5 3 AM SUPERINTENDENT STATIONS Impressions 09/22/2013 11:56 AM SUPERINTENDENT STATIONS No malignant abnormality identified. No significant change. BI-RADS category 1. Negative. RECOMMENDATIONS: Routine mammograms in one year. Narrative 09/22/2013 11:56 AM SUPERINTENDENT STATIONS Screening mammogram: HISTORY: Screening mammogram. Two views [...] * (ABNORMAL) HEMOGLOBIN A1C (08/22/2013 8:00 AM SUPERINTENDENT STATIONS) Hemoglobin A1c 12.6(H) <5.7 % of total [...] of diabetes for children. Test Performed at: [facility] [address] [facility] [place] [address] PAPO BENNETT DO,MPH Whole blood specimen (specimen) BLOOD SPECIMEN / Unknown 08/22/2013 4:53 AM SUPERINTENDENT STATIONS Salma Hunt SENIOR TAX SPECIALIST-SYNTHETIC CHEMIST LAB - CHEMISTRY ORDERA BLES Final Result [facility] [address] [place] [address] * (ABNORMAL) COMPREHENSIVE METABOLIC PANEL (08/22/2013 8:00 AM SUPERINTENDENT STATIONS) Glucose 312(H) 65 - 99 mg/dL [facility] [...] 29 U/L [facility] Comment: Test Performed at: [facility] [address] [place] [address] PAPO BENNETT DO,MPH Blood specimen (specimen) BLOOD SPECIMEN / Unknown 08/22/2013 4:53 AM SUPERINTENDENT STATIONS Salma Llanos Marilee SENIOR TAX SPECIALIST-SYNTHETIC CHEMIST LAB - CHEMISTRY ORDERA BLES Final Result Performing Organization Address [facility] de Phone Number [facility] [address] [place] [address] * (ABNORMAL) MICROALB/CREAT RATIO URINE RANDOM PANEL (08/21/2013 9:29 AM SUPERINTENDENT STATIONS) Creatinine Urine 129 20 - 320 mg/dL [...] within a diagnostic category. Test Performed at: [facility] [address] [place] [address] PAPO BENNETT DO,MPH Urine specimen (specimen) URINE SPECIMEN OBTAINED BY CLEAN CATCH PROCEDURE / Unknown 08/21/2013 9:29 AM SUPERINTENDENT STATIONS 08/22/2013 4:16 AM SUPERINTENDENT STATIONS Salma Llanos Marilee SENIOR TAX SPECIALIST-SYNTHETIC CHEMIST LAB - URINE CHEMISTRY ORDERABLES Final Result Performing Organization Address [facility] Co de Phone Number [facility] [address] [place] [address] from Last 3 Months or Most Recently Relevant to Health Maintenance Insurance ANTHEM ANTHEM Advance Directives * FULL RESUSCITATION (Latest Code Status on File) Date Activated Date Inactivated Comments 05/06/2011 1:35 AM 05/08/2011 5:46 AM Care Teams Patient Financial Services Coordinator Relationship Specialty Start Date End Date Jamaal Ibarra DO [address] [place] [address] PCP - General 06/01/21 Lebron Pugh DO [address] [place] [address] Oncology 06/23/07
== END 2025-03-06 23:15 | disposition left against medical advice (07) ==
LOC: ANHED 20:04
PROVIDERS: PCP Internal Medicine
DX: Z53.21 Procedure and treatment not carried out due to patient leaving prior to being seen by health care provider (principal)
CPT/HCPCS: 99199

== ENCOUNTER 2025-03-08 22:33 | Emergency (ER) | payer BC, SELFPAY ==
--- NOTE | ~2025-03-08 | CT_ITS ---
Non-contrast CT scan of the Abdomen and Pelvis Clinical indication: Abdominal pain Technique: 2.5 mm axial scans were obtained through the abdomen and pelvis without intravenous or or al contrast. Dose reduction technique was used on this scan by utilizing automated exposure control a nd iterative reconstruction technique. The dose-length product (DLP) was 1676.60 mGy-cm. COMPARISON: 02/09/2025 Findings: Images through the lung bases reveal small pericardial effusion. There is discoid atelecta sis or scarring left lower lobe. There is no evidence of renal or ureteral calculi. The kidneys and the ureters are nondilated. The liver, spleen, pancreas, and adrenals appear normal. Cholecystectomy clips are present. There are atherosclerotic calcifications of the aorta. . There is no evidence of bowel obstruction. Images through the pelvis were performed. There is no evidence of ascites or lymphadenopathy. Urinary bladder unremarkable. No pelvic mass seen. Impression: Small pericardial effusion. No other significant findings. Reviewed, dictated and finalized at [facility]. Impression: Small pericardial effusion. No other significant findings.
--- OUTSIDE RECORDS SUMMARY | 2025-03-08 22:35 | XMS_ITS | Encounter Summary ---
Author Organization [facility] Healthcare Address [address] [place] [address] Care Team Providers Care Cashier And Salesperson Name Role Phone Jamaal Ibarra DO Primary Care Provider [phone] Reason for Visit * Diagnostic Imaging (Routine) - Closed Specialty Diagnoses / Procedures Referred By Liz borrero Referred To Contact Procedures Breast Imaging US Outside Reference Saul Ortiz NP Phone: tel: fax: Referral ID Status Reason Start Date Expiration Date Visits Re quested Visits Authorized [id number] Closed 10/16/2022 11/15/2023 1 1 Encounter Details Date Type Department Care Team (Late st Contact Info) Description 07/15/2019 Hospital Encounter [facility] [place], [place] [id number] Social History Tobacco Use Types Packs/Day Years [...] on file Legal Sex Female 12:16 AM TELETYPE TECHNICIAN Gender Identity Not on file Sexual [...] CDT) Impressions [facility] - 10/16/2022 11:47 AM TELETYPE TECHNICIAN These images are for Reference purposes only and have not been reviewed by [facility] Radiology. There will be no report generated by a [facility] Radiologist. Narrative [facility] - 10/16/2022 11:47 AM TELETYPE TECHNICIAN EXAMINATION: Images For Reference Purposes Only us Saul Ortiz NP IMG MAMMO PROCEDURES Final Result [facility] documented in this encounter Visit Diagnoses Not on filedocumented in this encounter Care Teams Cashier And Salesperson Relationship Specialty Start Date End Date Jamaal Ibarra DO PCP - General 10/22/17 documented as of this encounter
--- OUTSIDE RECORDS SUMMARY | 2025-03-08 22:35 | XMS_ITS | Encounter Summary ---
Author Organization [facility] Healthcare Address [address] [place] [address] Care Team Providers Care Patient Support Tech Name Role Phone Jamaal Ibarra DO Primary Care Provider [phone] Reason for Visit * Diagnostic Imaging (Routine) - Closed Specialty Diagnoses / Procedures Referred By Liz borrero Referred To Contact Procedures Breast Imaging Diagnostic Outside Reference Saul Ortiz NP Phone: tel: fax: Referral ID Status Reason Start Date Expiration Date Visits Re quested Visits Authorized [id number] Closed 10/16/2022 11/15/2023 1 1 Encounter Details Date Type Department Care Team (Late st Contact Info) Description 04/29/2020 12:05 AM CDT Hospital Encounter [facility] Radiology [facility] [address] [place] [address] Social History Tobacco Use Types Packs/Day Years [...] on file Legal Sex Female 12:16 AM DECORATING AND ASSEMBLY SUPERVISOR Gender Identity Not on file Sexual Orientation [...] CDT) Impressions [facility] - 10/16/2022 11:47 AM DECORATING AND ASSEMBLY SUPERVISOR These images are for Reference purposes only and have not been reviewed by [facility] Radiology. There will be no report generated by a [facility] Radiologist. Narrative [facility] - 10/16/2022 11:47 AM DECORATING AND ASSEMBLY SUPERVISOR EXAMINATION: Images For Reference Purposes Only us Saul Ortiz NP IMG MAMMO PROCEDURES Final Result [facility] documented in this encounter Visit Diagnoses Not on filedocumented in this encounter Care Teams Patient Support Tech Relationship Specialty Start Date End Date Jamaal Ibarra DO PCP - General 10/22/17 documented as of this encounter
--- OUTSIDE RECORDS SUMMARY | 2025-03-08 22:35 | XMS_ITS | Encounter Summary ---
Author Organization [facility] Healthcare Address [address] [place] [address] Care Team Providers Care Inspector Wreath Name Role Phone Jamaal Ibarra DO Primary Care Provider [phone] Reason for Visit * Diagnostic Imaging (Routine) - Closed Specialty Diagnoses / Procedures Referred By Liz borrero Referred To Contact Procedures Breast Imaging Diagnostic Outside Reference Saul Ortiz NP Phone: tel: fax: Referral ID Status Reason Start Date Expiration Date Visits Re quested Visits Authorized [id number] Closed 10/16/2022 11/15/2023 1 1 Encounter Details Date Type Department Care Team (Late st Contact Info) Description 07/15/2019 12:05 AM CDT Hospital Encounter [facility] Radiology [facility] [address] [place] [address] Social History Tobacco Use Types Packs/Day Years [...] on file Legal Sex Female 12:16 AM EPIC PROFESSIONAL Gender Identity Not on file Sexual Orientation [...] CDT) Impressions [facility] - 10/16/2022 11:47 AM EPIC PROFESSIONAL These images are for Reference purposes only and have not been reviewed by [facility] Radiology. There will be no report generated by a [facility] Radiologist. Narrative [facility] - 10/16/2022 11:47 AM EPIC PROFESSIONAL EXAMINATION: Images For Reference Purposes Only us Saul Ortiz NP IMG MAMMO PROCEDURES Final Result [facility] documented in this encounter Visit Diagnoses Not on filedocumented in this encounter Care Teams Inspector Wreath Relationship Specialty Start Date End Date Jamaal Ibarra DO PCP - General 10/22/17 documented as of this encounter
--- OUTSIDE RECORDS SUMMARY | 2025-03-08 22:35 | XMS_ITS | Encounter Summary ---
Author Organization [facility] Healthcare Address [address] [place] [address] Care Team Providers Care Microwave Radio Technician Name Role Phone Jamaal Ibarra DO Primary Care Provider [phone]- [phone] Reason for Visit * Diagnostic Imaging (Routine) - Closed Specialty Diagnoses / Procedures Referred By Liz borrero Referred To Contact Procedures Breast Imaging US Outside Reference Saul Ortiz NP Phone: tel: fax: Referral ID Status Reason Start Date Expiration Date Visits Re quested Visits Authorized [id number] Closed 10/16/2022 11/15/2023 1 1 Encounter Details Date Type Department Care Team (Late st Contact Info) Description 04/29/2020 Hospital Encounter [facility] Radiology [facility] [address] [place] [address] Social History Tobacco Use Types Packs/Day [...] on file Legal Sex Female 12:16 AM PRINTING SUPERVISOR Gender Identity Not on file Sexual [...] CDT) Impressions [facility] - 10/16/2022 11:47 AM PRINTING SUPERVISOR These images are for Reference purposes only and have not been reviewed by [facility] Radiology. There will be no report generated by a [facility] Radiologist. Narrative [facility]MO[facility] - 10/16/2022 11:47 AM PRINTING SUPERVISOR EXAMINATION: Images For Reference Purposes Only us Saul Ortiz NP IMG MAMMO PROCEDURES Final Result [facility] documented in this encounter Visit Diagnoses Not on filedocumented in this encounter Care Teams Microwave Radio Technician Relationship Specialty Start Date End Date Jamaal Ibarra DO PCP - General 10/22/17 documented as of this encounter
--- OUTSIDE RECORDS SUMMARY | 2025-03-08 22:35 | XMS_ITS | Encounter Summary ---
Author Organization [facility] Address [address] [place] [address] Phone Care Team Providers Care Parole Board Member Name Role Phone Jamaal Ibarra DO Primary Care Provider [phone]- [phone] Encounter Details Date Type Department Care Team (Latest Contact Info) Description 10/14/2019 Orders Only [facility] Scanning, Provider Social History Tobacco Use Types Packs/Day Years Used Date Smoking Tobacco: Never Comments Unknown Sex and Gender Information Value Date Recorded Sex Assigned at Not on file Legal Sex Female 12:16 AM INSIDE SALES PERSON Gender Identity Not on file Sexual Orientation [...] on filedocumented in this encounter Care Teams Parole Board Member Relationship Specialty Start Date End Date Jamaal Ibarra DO PCP - General 10/22/17 documented as of this encounter
--- OUTSIDE RECORDS SUMMARY | 2025-03-08 22:35 | XMS_ITS | Encounter Summary ---
Author Organization [facility] Healthcare Address [address] [place] [address] Care Team Providers Care Kit Assembler Name Role Phone Jamaal Ibarra DO Primary Care Provider [phone]- [phone] Reason for Visit * Diagnostic Imaging (Routine) - Closed Specialty Diagnoses / Procedures Referred By Liz borrero Referred To Contact Procedures Breast Imaging Screening Outside Reference Saul Ortiz NP Phone: tel: fax: Referral ID Status Reason Start Date Expiration Date Visits Re quested Visits Authorized [id number] Closed 10/16/2022 11/15/2023 1 1 Encounter Details Date Type Department Care Team (Late st Contact Info) Description 07/08/2019 Hospital Encounter [facility] Radiology [facility] [place], [place] [id number] Social History Tobacco Use Types Packs/Day Years [...] on file Legal Sex Female 12:16 AM DIRECTOR DRUG Gender Identity Not on file Sexual Orientation [...] CDT) Impressions [facility] - 10/16/2022 11:48 AM DIRECTOR DRUG These images are for Reference purposes only and have not been reviewed by [facility] Radiology. There will be no report generated by a [facility] Radiologist. Narrative [facility] - 10/16/2022 11:48 AM DIRECTOR DRUG EXAMINATION: Images For Reference Purposes Only us Saul Ortiz NP IMG MAMMO PROCEDURES Final Result [facility] documented in this encounter Visit Diagnoses Not on filedocumented in this encounter Care Teams Kit Assembler Relationship Specialty Start Date End Date Jamaal Ibarra DO PCP - General 10/22/17 documented as of this encounter
--- OUTSIDE RECORDS SUMMARY | 2025-03-08 22:36 | XMS_ITS | Referral Summary ---
Author Organization [facility] Address [address] [place] [address] Care Team Providers Care Asphalt Spreader Operator Name Role Phone Jamaal Ibarra DO Primary Care Provider [phone]- [phone] Encounters Date Type Department Care Team Description 03/08/2025 Orders Only [facility] Cardiology [address] [place] [address] Odilia Rodriguez MD 03/03/2025 2:00 PM CDT Office Visit [facility] Endocrinology Metabolism and Lipid [address] [facility] 13th [place] [address] [place] [address] Sarah Haskins MD Type 1 diabetes mellitus with hyperglycemia (HCC) (Primary Dx); Hyperlipidemia, unspecified hyperlipidemia type; Vitamin D deficiency; Thyroid nodule 02/26/2025 11:15 AM CDT Procedure visit [facility] Ophthalmology [address] 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 02/11/2025 Orders Only [facility] Medical [facility] Cardiology [address] [place] [address] Kayla Conklin NP from Last [...] 2 weeks for glucose monitoring 2 each 2024 Discontinued(R eorder) Hospital, Clinic, or Other [...] 09/06/2021 Assessment & Plan (09/06/2021 9:49 AM MECHANICAL LEAD): -Fatigue is most likely multifactorial as she [...] 09/16/2017 Assessment & Plan (09/06/2021 9:45 AM MECHANICAL LEAD): -Taking weekly Vitamin D -Will repeat Vitamin D level Type 1 diabetes mellitus with hyperglycemia 03/2017 Nocturia 06/12/2017 Gastroesophageal reflux disease 10/27/2014 Seronegative rheumatoid arthritis 10/27/2014 Swelling of hand 10/27/2014 Fibroid 10/21/2014 Fibromyalgia 06/09/2014 Hypertension 04/27/2014 Assessment & Plan (09/06/2021 9:45 AM MECHANICAL LEAD): -BP today is 121/81 -Will continue same antihypertensive medications at this time. Hyperlipidemia 04/27/2014 Assessment & Plan (09/06/2021 9:45 AM MECHANICAL LEAD): -Will continue statin as it is being [...] 01/22/2023 Assessment & Plan (09/06/2021 9:45 AM MECHANICAL LEAD): -Currently taking MDI -A1C on 09/06/21 was [...] 06/12/201701/05 Assessment & Plan (09/06/2021 9:07 AM MECHANICAL LEAD): -States she has been off of LT4 [...] on file Legal Sex Female 12:16 AM MECHANICAL LEAD Gender Identity Not on file Sexual Orientation [...] Priority Date/Time Associated Diagnosis Comments POCT GLUCOSE [id number] Routine 03/03/2025 1: 56 PM CDT Type [...] of right eye CARDIOLOGY DOCUMENT SCAN Routine 02/10/2025 2:38 PM CDT CARDIOLOGY DOCUMENT SCAN Routine 01/28/2025 11:20 AM CDT POCT HEMOGLOBIN A1C Routine 10/23/2024 8 :29 AM MECHANICAL LEAD Type 1 diabetes mellitus with hyperglycemia (HCC) [...] <200 mg/dL Blood 03/03/2025 1:56 PM CDT us Sarah Haskins MD POINT OF CARE TEST [...] mg/0.05 mL Route: intravitreal, Site: Left Eye [facility]: [id number], Lot: [id number], Expiration date: 04/05/2026, Waste: 0 mL Medication [...] Final Res ult * Cardiology Document Scan (02/10/2025 2:38 PM CDT) Anatomical Region Laterality Modality Other Odilia Rodriguez MD CV CARDIAC SERVICES PROCEDU RES Final Result * Cardiology Document Scan (01/28/2025 11:20 AM [...] BLOOD ORDERABLES Final Result Performing Organization Address [facility] Co de Phone Number [facility] Department [place] [address] * Albumin Creatinine Ratio, Urine (01/24/2024) Urine us Sarah Haskins MD LAB URINE ORDERABLES Final Resu lt Performing Organization Address City/[facility]/ZIP Co de Phone Number EXTERNAL LAB * TSH (01/24/2024) Blood us Sarah Haskins MD LAB BLOOD ORDERABLES Final Resu lt EXTERNAL LAB * Lipid panel (01/24/2024) Blood us Sarah Haskins MD LAB BLOOD ORDERABLES Final Resu lt Performing Organization Address [facility] Co de Phone Number EXTERNAL [...] nipple by physician COMPARISON: Outside exams from [place] 09/13/2022to 07/08/2019 TECHNIQUE: Full field digital mammographic [...] 07/12/2021 5:08 PM CDT Performed at: - [address] [id number] Front Office Manager: Link Myles PhD, Phone: [phone] Lorrie Saavedra MD LAB MICROBIOLOGY - GENERAL ORD ERABLES Final Result [facility] from Last 3 Months or Most Recently Relevant to Health Maintenance Insurance [place] CHO[place] GENER[place] COPAY ASSIST CHOICE PRF [place] WORKERS COMPENSATION GENERIC WORKERS COMPENSATION GENERIC Care Teams Asphalt Spreader Operator Relationship Specialty Start Date End Date Jamaal Ibarra DO PCP - General 10/22/17
--- OUTSIDE RECORDS SUMMARY | 2025-03-08 22:36 | XMS_ITS | Clinical Summary ---
Author Organization [facility] [employer] Address [address] [address] Care Team Providers Care Turret Lathe Operator Name Role Phone Lebron Pugh V. DO Unavailable Jamaal Ibarra DO Primary Care Provider [phone] Source Comments [facility],non-owned Affiliates and Associated Physician Practices is amultiple site organization consisting of ambulatory clinics and hospital sitesin [place], [place], [place] and [place]. This disclosure is being madepursuant to the Care Everywhere program and may not contain all information available regarding this patient. Last updated 18.[facility] Allergies Active Allergy Reactions Criticality [...] tablet 2 Active vitamin D, ergocalciferol, (DRISDOL) 24663 UNITS capsule 1 Active gabapentin (NEURONTIN) 300 MG capsule 2 Active simvastatin (ZOCOR) 20 MG tablet 1 Active traMADol (ULTRAM) 50 MG tablet 1 014 Active traZODone (DESYREL) 50 MG tablet 6 Active zolpidem (AMBIEN) 10 MG tablet 5 Active megestrol (MEGACE) 40 MG tablet Take 1 Tab by mouth once daily. 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 file Not on file Not on file Last Filed Vital Signs Vital Sign Reading Time Taken Comments Blood Pressure 126/74 10/21/2014 11:57 AM REGISTRATION COORDINATOR Pulse 102 09/16/2013 1:06 PM REGISTRATION COORDINATOR Temperature 36.8 C (98.2 F) 09/16/2013 1:06 PM REGISTRATION COORDINATOR Respiratory Rate 20 09/16/2013 1:06 PM REGISTRATION COORDINATOR Oxygen Saturation 98% 09/16/2013 1:06 PM REGISTRATION COORDINATOR Inhaled Oxygen Concentration - - Weight 89.8 kg (198 lb) 10/21/2014 11:57 AM REGISTRATION COORDINATOR Height 172.7 cm (5' 8) 10/21/2014 11:57 AM REGISTRATION COORDINATOR Body Mass Index 30.11 10/21/2014 11:57 AM REGISTRATION COORDINATOR Plan of Treatment Health Maintenance Due [...] (1 of 2) 2024 MAMMOGRAM 01/11/2025 01/11/2023, 09/06, 08/04/2010 INFLUENZA VACCINE (Season Ended) 2025 07/07/2020, 07/30/2019, [...] HPV MRNA E6/E7 Routine 10/21/2014 1:52 PM REGISTRATION COORDINATOR Routine gynecological examination MAMMO BILAT SCREENING Routine 09/22/2013 8:09 AM REGISTRATION COORDINATOR Screening COMPREHENSIVE METABOLIC PANEL Routine 08/22/2013 8:00 AM REGISTRATION COORDINATOR DM w/o Complication Type II, Uncontrolled HTN (hypertension), benign Abdominal pain, RUQ (right upper quadrant) Ketonuria HEMOGLOBIN A1C Routine 08/22/2013 8:00 AM REGISTRATION COORDINATOR DM w/o Complication Type II, Uncontrolled MICROALB/CREAT RATIO URINE RANDOM PANEL Routine 08/21/2013 9:29 AM REGISTRATION COORDINATOR DM w/o Complication Type II, Uncontrolled from Last 3 Months or Most Recently Relevant to Health Maintenance Results * PAP THIN PREP REFLX HPV (PO REF LAB) (10/21/2014 1:52 PM REGISTRATION COORDINATOR) Clinical Information [facility] Comment:Routine exam LMP [facility] [...] has been evaluated with computer assisted technology. [employer] [facility] Comment: BKA, CT(ASCP) Test Performed at: [facility] [address] LAURENCE JO MD ENTIRE ENDOCERVIX / Unknown 10/21/2014 1:52 PM REGISTRATION COORDINATOR 10/22/2014 10:09 AM REGISTRATION COORDINATOR Bienvenido Mcnair Jr., MD LAB - PATHOLOGY/CYTOL OGY ORDERABLES Final Result [address] [address] * MAMM SCREENING DIGITAL IMAGE BILAT G0202 (09/22/2013 8:09 AM REGISTRATION COORDINATOR) Anatomical Region Laterality Modality Breast Bilateral Mammography 09/22/2013 11:5 3 AM REGISTRATION COORDINATOR Impressions 09/22/2013 11:56 AM REGISTRATION COORDINATOR No malignant abnormality identified. No significant change. BI-RADS category 1. Negative. RECOMMENDATIONS: Routine mammograms in one year. Narrative 09/22/2013 11:56 AM REGISTRATION COORDINATOR Screening mammogram: HISTORY: Screening mammogram. Two views [...] * (ABNORMAL) HEMOGLOBIN A1C (08/22/2013 8:00 AM REGISTRATION COORDINATOR) Hemoglobin A1c 12.6(H) <5.7 % of total [...] of diabetes for children. Test Performed at: [facility] [address] [place] [address] PAPO BENNETT DO,MPH Whole blood specimen (specimen) BLOOD SPECIMEN / Unknown 08/22/2013 4:53 AM REGISTRATION COORDINATOR us Salma Hunt TAR POT WORKER-UNDERCOVER AGENT LAB - CHEMISTRY ORDERA BLES Final Result [facility] [address] [place] [address] * (ABNORMAL) COMPREHENSIVE METABOLIC PANEL (08/22/2013 8:00 AM REGISTRATION COORDINATOR) Glucose 312(H) 65 - 99 mg/dL [facility] [...] 29 U/L [facility] Comment: Test Performed at: [facility] [address] [place] [address] PAPO BENNETT DO,MPH Blood specimen (specimen) BLOOD SPECIMEN / Unknown 08/22/2013 4:53 AM REGISTRATION COORDINATOR Salma Llanos Marilee TAR POT WORKER-UNDERCOVER AGENT LAB - CHEMISTRY ORDERA BLES Final Result Performing Organization Address [facility] de Phone Number [facility] [address] [place] [address] * (ABNORMAL) MICROALB/CREAT RATIO URINE RANDOM PANEL (08/21/2013 9:29 AM REGISTRATION COORDINATOR) Creatinine Urine 129 20 - 320 mg/dL [...] within a diagnostic category. Test Performed at: [facility] [address] [place] [address] PAPO BENNETT DO,MPH Urine specimen (specimen) URINE SPECIMEN OBTAINED BY CLEAN CATCH PROCEDURE / Unknown 08/21/2013 9:29 AM REGISTRATION COORDINATOR 08/22/2013 4:16 AM REGISTRATION COORDINATOR Salma Hunt APRN-UNDERCOVER AGENT LAB - URINE CHEMISTRY ORDERABLES Final Result Performing Organization Address [facility] de Phone Number [facility] [address] [place] [address] from Last 3 Months or Most Recently Relevant to Health Maintenance Insurance ANTHEM ANTHEM Advance Directives * FULL RESUSCITATION (Latest Code Status on File) Date Activated Date Inactivated Comments 05/06/2011 1:35 AM 05/08/2011 5:46 AM Care Teams Turret Lathe Operator Relationship Specialty Start Date End Date Jamaal Ibarra DO [address] [place] [address] PCP - General 06/01/21 Lebron Pugh DO [address] [place] [id number] Oncology 06/23/07
--- OUTSIDE RECORDS SUMMARY | 2025-03-08 22:36 | XMS_ITS | Clinical Summary ---
Author Organization [facility] Address [address] [place] [address] Care Team Providers Care Prototype Fabricator Name Role Phone Jamaal Ibarra DO Primary [...] - 02/02/2025 10:23 AM CDT Hospital Encounter [facility] [address] [place] [address] Citlalli Altamirano MD Pickrell, Aaron A, MD Hughes, Theresa, MD Keech, Rachel C, Chronic ulcer of great toe of right foot, limited to breakdown of skin ([facility]) Discharge Disposition: Home or Self Care 01/29/2025 Mobile Encounter [facility] Adult Hospitalists [address] [phone] Citlalli Altamirano MD from Last 3 Months [...] on file 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 [place] [address] * XR CHEST PA OR AP 1 [...] - 9.8 K/uL 02/01/2025 9:40 AM CDT [employer] LABORATORY SERVICES [facility] RBC 3.61(L) 3.90 - 4.90 M/uL 02/01/2025 9:40 AM CDT [employer] LABORATORY SERVICES [facility] HEMOGLOBIN 10.4(L) 11.8 - 14.8 g/dL 02/01/2025 9:40 AM CDT [employer] LABORATORY SERVICES [facility] HEMATOCRIT 33.5(L) 35.5 - 44.0 % 02/01/2025 9:40 AM CDT [employer] LABORATORY SERVICES [facility] MCV 92.8 82.0 - 99.0 fL 02/01/2025 9:40 AM CDT [employer] [facility]ORY SERVICES [facility] MCH 28.8 27.2 - 32.6 pg 02/01/2025 9:40 AM CDT [employer] LABORATORY SERVICES [facility] MCHC 31.0(L) 31.5 - 35.5 g/dL 02/01/2025 9:40 AM CDT [employer] LABORATORY SERVICES [facility] RDW 13.0 11.5 - 14.5 % 02/01/2025 9:40 AM CDT [employer] LABORATORY SERVICES - [facility] RDW-STDEV 43.9 37.1 - 48.7 fL 02/01/2025 9:40 AM CDT [employer] LABORATORY SERVICES - [facility] PLATELETS 278 140 - 350 K/uL 02/01/2025 9:40 AM CDT [employer] LABORATORY SERVICES - [facility] MPV 9.6 9.3 - 12.4 fL 02/01/2025 9:40 AM CDT [employer] LABORATORY SERVICES - . [facility] NEUTROPHILS 76 % 02/01/2025 9:40 AM CDT [employer] LABORATORY SERVICES - . [facility] LYMPHOCYTES 15 % 02/01/2025 9:40 AM CDT [employer] LABORATORY SERVICES - . [facility] MONOCYTES 5 % 02/01/2025 9:40 AM CDT [employer] LABORATORY SERVICES - . [facility] EOSINOPHILS 3 % 02/01/2025 9:40 AM CDT [employer] LABORATORY SERVICES - . [facility] BASOPHILS 1 % 02/01/2025 9:40 AM [employer] LABORATORY SERVICES - . [facility] IMMATURE GRANULOCYTES 1 % 02/01/2025 9:40 AM [employer] LABORATORY SERVICES - . [facility] Comment:IG (Immature Granulo cyte) count includes Metamyelocytes, Myelocytes, and Promyelocytes NEUTROPHIL ABSOLUTE 6.69 1.90 - 7.00 K/uL 02/01/2025 9:40 AM CDT [employer] LABORATORY SERVICES - . [facility] LYMPHOCYTE ABSOLUTE 1.36 0.70 - 4.50 K/uL 02/01/2025 9:40 AM CDT [employer] LABORATORY SERVICES - . [facility] MONOCYTE ABSOLUTE 0.44 0.10 - 1.30 K/uL 02/01/2025 9:40 AM [employer] LABORATORY SERVICES - . [facility] EOSINOPHIL ABSOLUTE 0.23 0.00 - 0.70 K/uL 02/01/2025 9:40 AM [employer] LABORATORY SERVICES - . [facility] BASOPHILS ABSOLUTE 0.05 0.00 - 0.20 K/uL 02/01/2025 9:40 AM [employer] LABORATORY SERVICES - . [facility] IMMATURE GRANULOCYTES ABSOLUTE 0.09(H) 0.00 - 0.03 K/uL 02/01/2025 9:40 AM [employer] LABORATORY SERVICES - [facility] Blood Venipuncture / Unknown 02/01/2025 8:41 AM CDT 02/01/2025 9:19 AM CDT Lee Ann Berman MD HEMATOLOGY ORDERABLES Final Re sult Performing Organization Address [facility]/ZIP Co de Phone Number [facility] [employer] [facility] CLIA# [id number] [address] [place] [address] * (ABNORMAL) C-REACTIVE PROTEIN (02/01/2025 8:41 AM CDT) Only the most recent of2 resultswithin the time period is included. CRP 19.8(H) <5.0 mg/L 02/01/2025 12:44 PM [facility] Blood Venipuncture / Unknown 02/01/2025 8:41 AM CDT 02/01/2025 9:19 AM CDT Lee Ann Berman MD CHEMISTRY ORDERABLES Final Res ult Performing Organization Address [facility] Co de Phone Number [facility] [employer] [facility] CLIA# [id number] [address] [place] [address] * (ABNORMAL) BASIC METABOLIC PANEL (02/01/2025 8:41 AM CDT) Only the most recent of3 resultswithin the time period is included. SODIUM 139 136 - 145 mmol/L 02/01/2025 10:01 AM T [employer] LABORATORY SERVICES [facility] POTASSIUM 3.6 3.5 - 5.0 mmol/L 02/01/2025 10:01 AM T [employer] LABORATORY SERVICES - [facility] CHLORIDE 108(H) 98 - 107 mmol/L 02/01/2025 10:01 AM T [employer] LABORATORY SERVICES - . [facility] CO2 20(L) 22 - 29 mmol/L 02/01/2025 10:01 AM T [employer] LABORATORY SERVICES [facility]. [facility] CALCIUM 9.8 8.6 - 10.2 mg/dL 02/01/2025 10:01 AM T [employer] LABORATORY SERVICES - . [facility] BUN 22(H) 6 - 20 mg/dL 02/01/2025 10:[address] [facility] CREATININE 1.90(H) 0.51 - 0.95 mg/dL 02/01/2025 10:[address] [facility] GLUCOSE 167(H) 74 - 99 mg/dL 02/01/2025 10:[address] [facility] GFR 32(L) >=60 mL/min/1.7 3 sq meter 02/01/2025 10:01 AM [facility] LABORATORY [facility] Comment:eGFR calculated with 2020 CKD-EPI equation. Vegetarian diet, extremely high or low muscle mass, and may affect results. Cystatin C with Glomerular Filtration Rate is a suitable alternative for these patients. ANION GAP 11 8 - 16 mmol/L 02/01/2025 10:01 AM [facility] [employer] [facility] Blood Venipuncture / Unknown 02/01/2025 8:41 AM CDT 02/01/2025 9:19 AM CDT us Lee Ann Berman MD CHEMISTRY ORDERABLES Final Res ult [facility] [employer] [facility]# [id number] [address] [place], [place] [address] [facility] [place] [address] * (ABNORMAL) URINALYSIS WITH REFLEX MICROSCOPIC (01/31/2025 11:40 AM CDT) COLOR UA Pale Yellow Pale to Dark Yellow 01/31/2025 12:14 PM [facility] LABORATORY [facility] CLARITY UA Clear Clear 01/31/2025 12:14 PM [facility] LABORATORY [facility] SPECIFIC GRAVITY UA 1.006 1.003 - 1.035 01/31/2025 12:14 PM [facility] [employer] [facility] PH UA 7.0 5.0 - 8.0 01/31/2025 12:14 PM [facility] LABORATORY [facility] LEUKOCYTE ESTERASE UA Negative Negative 01/31/2025 12:14 PM [facility] LABORATORY [facility]. [facility] NITRITE UA Negative Negative 01/31/2025 12:14 PM CDT [employer] LABORATORY SERVICES - [facility] PROTEIN UA 2+(A) Negative 01/31/2025 12:14 PM CDT [employer] LABORATORY SERVICES - [facility] GLUCOSE UA Negative Negative 01/31/2025 12:14 PM CDT [employer] LABORATORY SERVICES - [facility] KETONES UA Negative Negative 01/31/2025 12:14 PM CDT [employer] LABORATORY SERVICES - [facility] UROBILINOGEN UA Normal <2.0 mg/dL 12:14 PM CDT [employer] LABORATORY SERVICES - [facility] BILIRUBIN UA Negative Negative 01/31/2025 12:14 PM CDT [employer] LABORATORY SERVICES - [facility] BLOOD UA Negative Negative 01/31/2025 12:14 PM CDT [employer] LABORATORY SERVICES - [facility] WBC UA 0-2 0 - 2 /hpf 01/31/2025 12:14 PM T [employer] LABORATORY SERVICES - [facility] RBC UA 0-2 0 - 2 /hpf 01/31/2025 12:14 PM CDT [employer] LABORATORY SERVICES - [facility] BACTERIA UA Negative Negative /hpf 01/31/2025 12:14 PM T [employer] LABORATORY SERVICES - [facility] EPITHELIAL CELLS, URINE 0-5 0 - 5 /hpf 01/31/2025 12:14 PM T [employer] LABORATORY SERVICES - [facility] Urine URINE SPECIMEN OBTAINED BY CLEAN CATCH PROCEDURE / Unknown 01/31/2025 11:40 AM CDT 01/31/2025 11:40 AM CDT Lee Ann Berman MD URINE ORDERABLES Final Result [facility] [employer] SERVICES - [facility] CLIA# [id number] [address] [place], [place] [id number] * (ABNORMAL) CBC WITHOUT DIFFERENTIAL (01/31/2025 9:10 AM CDT) Only the most recent of2 resultswithin the time period is included. WBC 7.6 4.0 - 9.8 K/uL 01/31/2025 9:21 AM CDT [employer] LABORATORY SERVICES - [facility] RBC 3.54(L) 3.90 - 4.90 M/uL 01/31/2025 9:21 AM CDT [facility] LABORATORY SERVICES - [facility] HEMOGLOBIN 10.3(L) 11.8 - 14.8 g/dL 01/31/2025 9:21 AM T [facility] LABORATORY SERVICES - [facility] HEMATOCRIT 32.6(L) 35.5 - 44.0 % 01/31/2025 9:21 AM T [facility] LABORATORY SERVICES - [facility] MCV 92.1 82.0 - 99.0 fL 01/31/2025 9:21 AM CDT [facility] LABORATORY SERVICES - [facility] MCH 29.1 27.2 - 32.6 pg 01/31/2025 9:21 AM CDT [facility] LABORATORY SERVICES - [facility] MCHC 31.6 31.5 - 35.5 g/dL 01/31/2025 9:21 AM T [facility] LABORATORY SERVICES - [facility] PLATELETS 247 140 - 350 K/uL 01/31/2025 9:21 AM T [facility] LABORATORY SERVICES - [facility] MPV 9.7 9.3 - 12.4 fL 01/31/2025 9:21 AM T [facility] LABORATORY SERVICES - [facility] RDW 12.9 11.5 - 14.5 % 01/31/2025 9:21 AM T [facility] LABORATORY SERVICES - [facility] RDW-STDEV 43.7 37.1 - 48.7 fL 01/31/2025 9:21 AM T [facility] LABORATORY SERVICES - [facility] Blood Venipuncture / Unknown 01/31/2025 9:10 AM CDT 01/31/2025 9:14 AM CDT us Parris Summers MD HEMATOLOGY ORDERABLES Final Result [facility] SERVICES - [facility]# [id number] [address] [facility] [address] [place] [place] [address] * MAGNESIUM LEVEL (01/31/2025 9:10 AM CDT) Only the most recent of2 resultswithin the time period is included. MAGNESIUM 1.8 1.6 - 2.6 mg/dL 01/31/2025 12:30 PM CDT [facility] LABORATORY [facility] Blood Venipuncture / Unknown 01/31/2025 9:10 AM CDT 01/31/2025 9:14 AM CDT us Lee Ann Berman MD CHEMISTRY ORDERABLES Final Res ult [facility] [employer] [facility] CLIA# [id number] [address] [place] [address] [place] [id number] * US VENOUS DOPPLER LEG BILATERAL (01/30/2025 1:52 PM CDT) Anatomical Region Laterality Modality Lower Extremity Ultrasound 01/30/2025 1:32 PM CDT Narrative 01/31/2025 7:55 AM CDT [address] [address] [email or web address] Venous Exam Complete Lower Extremity Duplex Patient: Jennifer Londono Study ID: [id number] Gender: F : 1975 Age: 49 Race: CAU Height Study Date: 01/30/2025 Weight: Access. #: [id number] *Referring Physician:* Parris Summers Aaron A *Ordering Physician:* Parris Summers *Smooth Stucco Resurfacer:* Lorrie Mendenhall Indications: R/O DVT perordering provider. [...] mm Prepared and Electronically Authenticated Nii Dawkins [id number] Procedure Note Nii Dawkins MD - 01/31/[address] [address] [email or web address] Venous Exam Complete Lower Extremity Duplex Patient: Jennifer Londono Study ID:[id number] Gender: F :1975 Age: 49 Race: CAU Height Study Date:01/30/2025 Weight: Access. #:[id number] *Referring Physician:Parris Li Aaron A *Ordering Physician:Parris LiSmooth Stucco Resurfacer:Lorrie Giraldo Indications: R/O DVT perordering provider. History: [...] mm Prepared and Electronically Authenticated Nii Dawkins [id number] Parris Summers MD US ORDERABLES Final Result * UREA NITROGEN/CREATININE RATIO, URINE (01/30/2025 9:53 AM CDT) UREA NITROGEN, URINE 429 mg/dL 01/30/2025 10:49 AM CDT [facility] Comment:Reference range not established CREATININE, URINE 60.4 29.0 - 226.0 mg/dL 01/30/2025 10:49 AM CDT [facility] Comment:Reference Range vari es with fluid intake and diet. UREA/CREAT RATIO, UR 7.1 Reference Range not established mg/mg Creatinine 01/30/2025 10:49 AM CDT [facility] Urine URINE SPECIMEN OBTAINED BY CLEAN CATCH PROCEDURE / Unknown Collection / Unknown 01/30/2025 9:53 AM CDT 01/30/2025 10:04 AM CDT Parris Summers MD URINE ORDERABLES Final Resul t [facility] CLIA# [id number] [address] [place] [place] [address] * SODIUM, RANDOM URINE (01/30/2025 9:53 AM CDT) SODIUM, URINE 32 mmol/L 01/30/2025 10:40 AM CDT [facility] [employer] [facility] Comment:Reference range not established Urine URINE SPECIMEN OBTAINED BY CLEAN CATCH PROCEDURE / Unknown Collection / Unknown 01/30/2025 9:53 AM CDT 01/30/2025 10:04 AM CDT Parris Summers MD URINE ORDERABLES Final Resul t [facility] CLIA# [id number] [address] [place] [address] * (ABNORMAL) PROTEIN/CREATININE RATIO, URINE (01/30/2025 9:53 AM CDT) PROTEIN CONCENTRATION 233(H) 0 - 20 mg/dL 01/30/2025 10:52 AM CDT [facility] CREATININE, URINE 61.1 29.0 - 226.0 mg/dL 01/30/2025 10:52 AM CDT [facility] Comment:Reference Range vari es with fluid intake and diet. PROTEIN/CREAT RATIO, URINE 3.81(H) 0.00 - 0.19 mg/mg Creatinine 01/30/2025 10:52 AM CDT [facility] Urine URINE SPECIMEN OBTAINED BY CLEAN CATCH PROCEDURE / Unknown Collection / Unknown 01/30/2025 9:53 AM CDT 01/30/2025 10:04 AM CDT Parris Summers MD URINE ORDERABLES Final Resul t Performing Organization Address [facility]/ZIP Co de Phone Number [facility]# [id number] [address] [place] [address] * OSMOLALITY, URINE (01/30/2025 9:53 AM CDT) OSMOLALITY, URINE 287 50 - 1,200 mOsm/kg 01/30/2025 10:30 AM CDT [facility] Urine URINE SPECIMEN OBTAINED BY CLEAN CATCH PROCEDURE / Unknown Collection / Unknown 01/30/2025 9:53 AM CDT 01/30/2025 10:04 AM CDT Narrative [facility] - 01/30/2025 10:30 AM CDT Reference range: 50-1200 mOsm/kg H2O, depending on fluid intake. us Parris Summers MD URINE ORDERABLES Final Resul t Performing Organization Address City/[facility]/ZIP Co de Phone Number [facility] CLIA# [id number] [address] [place] [address] * OSMOLALITY (01/29/2025 7:53 PM CDT) OSMOLALITY 300 275 - 300 mOsm/kg 01/29/2025 9:21 PM CDT [facility] [employer] [facility] Blood Venipuncture / Unknown 01/29/2025 7:53 PM CDT 01/29/2025 8:18 PM CDT Parris Summers MD CHEMISTRY ORDERABLES Final R esult [facility] LABORATORY [facility] CLIA# [id number] [address] [place] [address] * MRI FOOT WO CONTRAST RIGHT (01/29/2025 [...] greatest dorsally. DICTATION LOCATION: Location 2 - [facility] Narrative 01/30/2025 7:54 AM CDT MRI FOOT [...] foot greatest dorsally. DICTATION LOCATION: Location - [facility] Parris Summers MD MR ORDERABLES Final Result * RESPIRATORY PATHOGEN PCR PANEL (01/29/2025 4:29 PM CDT) [facility] Respiratory Pathogen PCR Panel NOT DETECTED No respiratory pathogen nucleic acids detected. 01/29/2025 5:40 PM CDT [facility] COVID-19 PCR NOT DETECTED Not Detected 01/29/2025 5:40 PM CDT [facility] Upper Respiratory ENTIRE NASOPHARYNX / Unknown Collection / Unknown 01/29/2025 4:29 PM CDT 01/29/2025 4:44 PM CDT [facility] - 01/29/2025 5:40 PM CDT The [employer] [...] MICROBIOLOGY - GENERAL ORDER ISIAH Final Result [facility]# [id number] [address] [place] [address] [place] [address] * GI PATHOGEN PCR PANEL (01/29/2025 4:26 PM CDT) Pathologist [facility] GI Pathogen PCR panel NOT DETECTED No nucleic acids detected. 01/29/2025 6:10 PM CDT [facility] Stool STOOL SPECIMEN / Unknown Collection / Unknown 01/29/2025 4:26 PM CDT 01/29/2025 4:37 PM CDT [facility] - 01/29/2025 6:10 PM CDT The Film [...] MICROBIOLOGY - GENERAL ORDER ISIAH Final Result [facility] LABORATORY SERVICES [facility]# [id number] [address] [facility] [place] [address] * XR CHEST PA AND LATERAL 2 [...] * TSH REFLEXIVE (01/29/2025 2:08 PM CDT) [facility] TSH 1.92 0.27 - 4.20 uIU/mL 01/29/2025 4:01 PM CDT [facility] LABORATORY [facility] Blood Venipuncture / Unknown 01/29/2025 2:08 PM CDT 01/29/2025 3:14 PM CDT Parris Summers MD CHEMISTRY ORDERABLES Final R esult Performing Organization Address [facility]/ZIP Co de Phone Number [facility] CLIA# [id number] [address] [place] [address] * (ABNORMAL) IRON, TIBC, AND PERCENT SATURATION (01/29/2025 2:08 PM CDT) [facility] IRON 22(L) 37 - 145 ug/dL 01/29/2025 4:01 PM CDT [facility] LABORATORY [facility] TIBC 230(L) 250 - 450 ug/dL 01/29/2025 4:01 PM CDT [facility] LABORATORY [facility] IRON % SATURATION 10(L) 15 - 50 % 01/29/2025 4:01 PM CDT [facility] LABORATORY [facility] TRANSFERRIN 181(L) 200 - 360 mg/dL 01/29/2025 4:01 PM CDT [facility] LABORATORY [facility] Blood Venipuncture / Unknown 01/29/2025 2:08 PM CDT 01/29/2025 3:14 PM CDT Parris Summers MD CHEMISTRY ORDERABLES Final R esult [facility] CLAL# [id number] [address] [place] [address] * (ABNORMAL) SEDIMENTATION RATE (01/29/2025 2:08 PM CDT) [facility] ESR (SEDIMENTATION RATE) 76(H) <=30 mm/Hr 01/29/2025 4:00 PM CDT [employer] LABORATORY [facility] Blood Venipuncture / Unknown 01/29/2025 2:08 PM CDT 01/29/2025 3:15 PM CDT Parris Summers MD HEMATOLOGY ORDERABLES Final Result Performing Organization Address [facility] de Phone Number [facility] [employer] [facility]# [id number] [address] [place] [address] * (ABNORMAL) HEMOGLOBIN A1C (01/29/2025 2:08 PM CDT) HEMOGLOBIN A1C 8.4(H) <5.7 % 01/29/2025 3:35 PM CDT [employer] [facility] EST. AVG GLUCOSE, A1C 194 mg/dL 01/29/2025 3:35 PM CDT [employer] [facility] Blood Venipuncture / Unknown 01/29/2025 2:08 PM CDT 01/29/2025 3:15 PM CDT Narrative [facility] LABORATORY [facility] - 01/29/2025 3:35 PM CDT HGB A1C INTERPRETATION NORMAL: <5.7% PRE-DIABETES: 5.7 - 6.4% DIABETES: 6.5% OR GREATER Parris Summers MD CHEMISTRY ORDERABLES Final R esult Performing Organization Address City/[facility]/ZIP Co de Phone Number [facility] [employer] [facility]# [id number] [address] [place] [address] * (ABNORMAL) COMPREHENSIVE METABOLIC PANEL (01/29/2025 2:08 PM CDT) Pathologist [facility] SODIUM 139 136 - 145 mmol/L 01/29/2025 4:01 PM CDT [employer] [facility] POTASSIUM 3.6 3.5 - 5.0 mmol/L 01/29/2025 4:01 PM CDT [employer] [facility] CHLORIDE 109(H) 98 - 107 mmol/L 01/29/2025 4:01 PM [facility] LABORATORY [facility] CO2 20(L) 22 - 29 mmol/L 01/29/2025 4:[address] [facility] CALCIUM 9.8 8.6 - 10.2 mg/dL 01/29/2025 4:[address] [facility] BUN 34(H) 6 - 20 mg/dL 01/29/2025 4:[address] [facility] CREATININE 2.51(H) 0.51 - 0.95 mg/dL 01/29/2025 4:01 PM [facility] [employer] [facility] GLUCOSE 134(H) 74 - 99 mg/dL 01/29/2025 4:[address] [facility] TOTAL PROTEIN 6.2(L) 6.7 - 8.6 g/dL 01/29/2025 4:01 PM [facility] LABORATORY [facility] ALBUMIN 3.1(L) 3.5 - 5.2 g/dL 01/29/2025 4:01 PM [facility] BILIRUBIN TOTAL 0.2(L) 0.3 - 1.2 mg/dL 01/29/2025 4:[address] [facility] ALKALINE PHOSPHATASE 90 35 - 104 U/L 01/29/2025 4:[address] [facility] AST 8 <33 U/L 01/29/2025 4:01 PM [facility] [employer] [facility] ALT 9 <34 U/L 01/29/2025 4:01 PM [facility] [employer] [facility] GFR 23(L) >=60 mL/min/1.7 3 sq meter 01/29/2025 4:01 PM [facility] [employer] [facility] Comment:eGFR calculated with 2020 CKD-EPI equation. Vegetarian diet, extremely high or low muscle mass, and may affect results. Cystatin C with Glomerular Filtration Rate is a suitable alternative for these patients. ANION GAP 10 8 - 16 mmol/L 01/29/2025 4:01 PM CDT [facility] Blood Venipuncture / Unknown 01/29/2025 2:08 PM CDT 01/29/2025 3:14 PM CDT Narrative [facility] - 01/29/2025 4:01 PM CDT Samples containing indocyanine green cause interferences on Total and/or Direct Bilirubin and must not be measured. us Parris Summers MD CHEMISTRY ORDERABLES Final R esult [facility] CLIA# [id number] [address] [place] [address] from Last 3 Months Insurance [facility] PREFERRED RX [employer] Commercial Advance Directives For more information, please contact: [phone] * Full Code (Latest Code Status on File) Date Activated Date Inactivated Comments 01/29/2025 1:42 PM 02/02/2025 12:23 PM Care Teams [employer] Relationship Specialty Start Date End Date Jamaal Ibarra DO [address] [id number] PCP - General Internal Medicine 07/11/18
--- OUTSIDE RECORDS SUMMARY | 2025-03-08 22:36 | XMS_ITS | Encounter Summary ---
Author Organization [facility] Address [address] [place] [address] Phone Care Team Providers Care Acid Conditioner Name Role Phone Jamaal Ibarra DO Primary Care Provider +1- [phone] Encounter Details Date Type Department Care Team (Late st Contact Info) Description 10/18/[address] 5th [place] [address] [place] [address] Era Taylor CMA Social History Tobacco Use Types Packs/Day Years Used Date Smoking Tobacco: Never Smokeless Tobacco: Never Comments Unknown Sex and Gender Information Value Date Recorded Sex Assigned at Not on file 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
--- OUTSIDE RECORDS SUMMARY | 2025-03-08 22:36 | XMS_ITS | Clinical Summary ---
Author Organization [facility] Address [address] [place] [address] Care Team Providers Care Manufacturing Production Manager Name Role Phone Jamaal Ibarra DO Primary Care Provider +1- [phone] Allergies Active Allergy Reactions Criticality Noted Date [...] 09/06/2021 Assessment & Plan (09/06/2021 9:49 AM AREA DIRECTOR OF HOME HEALTH SALES): -Fatigue is most likely multifactorial as she [...] 09/16/2017 Assessment & Plan (09/06/2021 9:45 AM AREA DIRECTOR OF HOME HEALTH SALES): -Taking weekly Vitamin D -Will repeat Vitamin D level Type 1 diabetes mellitus with hyperglycemia 03/2017 Nocturia 06/12/2017 Gastroesophageal reflux disease 10/27/2014 Seronegative rheumatoid arthritis 10/27/2014 Swelling of hand 10/27/2014 Fibroid 10/21/2014 Fibromyalgia 06/09/2014 Hypertension 04/27/2014 Assessment & Plan (09/06/2021 9:45 AM AREA DIRECTOR OF HOME HEALTH SALES): -BP today is 121/81 -Will continue same antihypertensive medications at this time. Hyperlipidemia 04/27/2014 Assessment & Plan (09/06/2021 9:45 AM AREA DIRECTOR OF HOME HEALTH SALES): -Will continue statin as it is being [...] 01/22/2023 Assessment & Plan (09/06/2021 9:45 AM AREA DIRECTOR OF HOME HEALTH SALES): -Currently taking MDI -A1C on 09/06/21 was [...] 06/12/201701/05 Assessment & Plan (09/06/2021 9:07 AM AREA DIRECTOR OF HOME HEALTH SALES): -States she has been off of LT4 for 2 years -Will repeat TFT. Encounters Date Type Department Care Team Description 03/08/2025 Orders Only [facility] Medical Group Cardiology [address] [place] [address] Odilia Rodriguez MD 03/03/2025 2:00 PM CDT Office Visit [facility] Endocrinology Metabolism and Lipid [address] [facility] 13th [place] [address] [place] [address] Sarah Haskins MD Type 1 diabetes mellitus with hyperglycemia (HCC) (Primary Dx); Hyperlipidemia, unspecified hyperlipidemia type; Vitamin D deficiency; Thyroid nodule 02/26/2025 11:15 AM CDT Procedure visit [facility] Ophthalmology [address] 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 02/11/2025 Orders Only [facility] Medical Group Cardiology [address] [place] [phone] Kayla Conklin NP from Last 3 Months [...] on file Legal Sex Female 12:16 AM AREA DIRECTOR OF HOME HEALTH SALES Gender Identity Not on file Sexual Orientation [...] Additional history exists TSH Level 01/29/2026 01/29/2025, 0406/2024, 01/03/2021, Additional history exists Dilated Eye Exam 02/26/2026 02/26/2025, , 06/19/2024, Additional history exists Hepatitis B Screening Completed 07/28/2019 , 08/21/2013, 07/09/2012 Hepatitis C Screening Completed 07/06/2021 Procedures Procedure Name Priority Date/Time Associated Diagnosis Comments POCT GLUCOSE [id number] Routine 03/03/2025 1: 56 PM CDT Type [...] HEMOGLOBIN A1C Routine 10/23/2024 8 :29 AM AREA DIRECTOR OF HOME HEALTH SALES Type 1 diabetes mellitus with hyperglycemia (HCC) [...] * POCT glucose (03/03/2025 1:56 PM CDT) Pathologist [facility] Glucose Blood, POC 377 Normal Fasting 70 [...] mL Route: intravitreal, Site: Left Eye [facility]: 06063-783-48, Lot: [id number], Expiration date: 04/05/2026, Waste: 0 mL Medication [...] Dorman MD LAB BLOOD ORDERABLES Final Result [facility] Department [place] [address] * Albumin Creatinine Ratio, Urine (01/24/2024) Urine Sarah Haskins MD LAB URINE ORDERABLES Final Resu lt Performing Organization Address [facility]/ZIP Co de Phone Number EXTERNAL LAB * TSH (01/24/2024) Blood Sarah Haskins MD LAB BLOOD ORDERABLES Final Resu lt Performing Organization Address [facility] Co de Phone Number EXTERNAL LAB * Lipid panel (01/24/2024) Blood Sarah Haskins MD LAB BLOOD ORDERABLES Final Resu lt Performing Organization Address [facility] de Phone Number EXTERNAL LAB * Diagnostic [...] nipple by physician COMPARISON: Outside exams from [place] 09/13/2022to 07/08/2019 TECHNIQUE: Full field digital mammographic [...] - 07/12/2021 5:08 PM CDT Performed at: [facility] [id number] [place] Former: Link Myles PhD, Phone: [phone] us Lorrie Saavedra MD LAB MICROBIOLOGY - GENERAL ORD ERABLES Final Result [facility] from Last 3 Months or Most Recently Relevant to Health Maintenance Insurance [place] GENERIC COPAY ASSIST [place] CHO[place] WORK[place] COMPENSATION GENERIC WORKERS COMPENSATION [place] [address] Care Teams Manufacturing Production Manager Relationship Specialty Start Date End Date Jamaal Ibarra DO PCP - General 10/22/17
--- OUTSIDE RECORDS SUMMARY | 2025-03-08 22:36 | XMS_ITS | Clinical Summary ---
Author Organization [facility] Address [address] [place] [address] Phone Care Team Providers Care Flosser Name Role Phone JeanniesvetaJamaal jernigan Primary Care Provider [phone] Allergies Active Allergy Reactions Criticality Noted Date [...] 2 Active ergocalciferol (VITAMIN D2) 1.25 MG (59500 UT) capsule TAKE 1 CAPSULE BY MOUTH [...] Comments Blood Pressure 128/72 09/05/2022 8:31 AM WASHERY ENGINEER Pulse - - Temperature 36.5 C (97.7 F) 09/05/2022 8:31 AM WASHERY ENGINEER Respiratory Rate 18 09/05/2022 8:31 AM WASHERY ENGINEER Oxygen Saturation - - Inhaled Oxygen Concentration - - Weight 121 kg (267 lb) 09/05/2022 8:31 AM WASHERY ENGINEER Height 172.7 cm (5' 8) 09/05/2022 8:31 AM WASHERY ENGINEER Body Mass Index 40.6 09/05/2022 8:31 AM WASHERY ENGINEER Plan of Treatment Health Maintenance Due Date Last Done Comments Influenza Vaccine (Season Ended) 2025 07/07/2020, 07/30/2019, 07/16/2018, Additional history exists Insurance [facility] Care Teams Flosser Relationship Specialty Start Date End Date Jamaal Ibarra DO [address] [place] [address] PCP - General Internal Medicine 05/07/22
--- OUTSIDE RECORDS SUMMARY | 2025-03-08 22:36 | XMS_ITS | Encounter Summary ---
Author Organization [facility] Address [address] [place] [address] Phone Care Team Providers Care Stock Clerk Name Role Phone Jamaal Ibarra DO Primary Care Provider [phone]- [phone] Encounter Details Date Type Department Care Team (Late st Contact Info) Description 08/03/[address] [facility] Rheumatology [address] [facility] 5th [place] [address] [place] [phone] Jana Medley, B.A. Social History Tobacco Use Types Packs/Day Years Used Date Smoking Tobacco: Never Comments Unknown Sex and Gender Information Value Date Recorded Sex Assigned at Not on file Legal Sex Female 12:16 AM OCCUPATIONAL THERAPY MANAGER Gender Identity Not on file Sexual Orientation Not on file documented as of this encounter Plan of Treatment Not on file documented as of this encounter Visit Diagnoses Not on filedocumented in this encounter Care Teams Stock Clerk Relationship Specialty Start Date End Date Jamaal Ibarra DO PCP - General 10/22/17 documented as of this encounter
--- OUTSIDE RECORDS SUMMARY | 2025-03-08 22:36 | XMS_ITS | CONTINUITY OF CARE DOCUMENT ---
Author Name shyanalili Address Unknown Organization [facility] Address [address] [place] [address] [address] [place] [address] Phone [phone] Care Team Providers Care Cosmetician Name Role Phone Edwar JAY, Rigoberto Unavailable JANNETTE JAY, LAYTON Unavailable JANETH GUZMAN DO Unavailable [phone] INSURANCE PROVIDERS Payer name Policy type / Coverage type [place] red republican ID [facility] [id number]
--- OUTSIDE RECORDS SUMMARY | 2025-03-08 22:36 | XMS_ITS | Encounter Summary ---
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 Gender Identity Not on file Sexual Orientation Not on file documented as of this encounter Plan of Treatment Not on file documented as of this encounter Procedures Procedure Name Priority Date/Time Associated Diagnosis Comments CARDIOLOGY DOCUMENT SCAN Routine 02/10/2025 2:38 PM CDT documented in this encounter Results * Cardiology Document Scan (02/10/2025 2:38 PM CDT) Anatomical Region Laterality Modality Other Odilia Rodriguez MD CV CARDIAC SERVICES PROCEDU RES Final Result documented in this encounter Visit Diagnoses Not on filedocumented in this encounter Care Teams Head Of Conservation Relationship Specialty Start Date End Date Jamaal Ibarra DO PCP - General 10/22/17 documented as of this encounter
--- OUTSIDE RECORDS SUMMARY | 2025-03-08 22:36 | XMS_ITS | Encounter Summary ---
Author Organization [employer] Address [address] [place] [address] Care Team Providers Care Grain Shipper Name Role Phone Jamaal Ibarra DO Primary Care Provider Encounter Details Date Type Department Care Team (Latest Contact Info) Description 03/23/2002 Outpatient Historical [facility] [place] [address] [place] [address] MENSTRUAL DISORDER NEC (Primary Dx) Social History Tobacco Use Types Packs/Day Years Used Date Smoking Tobacco: Never Assessed Comments Unknown Sex and Gender Information Value Date Recorded Sex Assigned at Not on file Legal Sex Female 3:50 AM BREAK OUT MAN Gender Identity Not on file Sexual [...] documented as of this encounter Care Teams Grain Shipper Relationship Specialty Start Date End Date Jamaal Ibarra DO [address] [facility] [address] [place] [address] PCP - General Internal Medicine 07/11/18 documented as of this encounter
[2025-03-08 22:50] VITALS: BP 145/79; PULSE 97; RESP 14; TEMP 36.3; O2SAT 98
[2025-03-08 22:57] LABS: Glucose Point of Care 315 mg/dl (65-105)
[2025-03-08 23:24] LABS: Basophils Percent Auto 0.4 % (0.2-1.2); Eosinophils Absolute Auto 0.2 K/mm3 (0-0.3); Eosinophils Percent Auto 2.1 % (0-4.4); Hematocrit 38.7 % (37.0-47.0); Hemoglobin 12.7 g/dL (12.0-15.0); Immature Granulocyte Absolute 0.06 K/mm3 (0.00-0.031); Immature Granulocyte Percent A 0.5 % (0-0.5); Lymphocytes Absolute Auto 2.29 K/mm3 (0.9-3.2); Lymphocytes Percent Auto 20.5 % (18.3-44.2); Mean Corpuscular HGB Conc 32.8 g/dl (32-36); Mean Corpuscular Hemoglobin 28.9 pg (26-34); Mean Platelet Volume 10.8 fl (7.4-10.4); Monocytes Absolute Auto 0.6 K/mm3 (0.1-0.6); Monocytes Percent Auto 5.7 % (2.6-8.5); Neutrophils Absolute Auto 7.9 K/mm3 (1.3-6.7); Neutrophils Percent Auto 70.8 % (45.5-73.1); Platelet Count Result 239 k/mm3 (150-375); Red Cell Distribution Width 12.8 % (11.5-14.5); White Blood Count 11.2 K/mm3 (4.5-10.0)
--- OUTSIDE RECORDS SUMMARY | 2025-03-08 23:36 | XMS_ITS | Encounter Summary ---
Author Organization [facility] Healthcare Address [address] [place] [address] Care Team Providers Care Project Engineering Director Name Role Phone Jamaal Ibarra DO Primary Care Provider [phone] Reason for Visit * Diagnostic Imaging (Routine) - Closed Specialty Diagnoses / Procedures Referred By Liz borrero Referred To Contact Procedures Breast Imaging Diagnostic Outside Reference Saul Ortiz NP Phone: tel: fax: Referral ID Status Reason Start Date Expiration Date Visits Re quested Visits Authorized [id number] Closed 10/16/2022 11/15/2023 1 1 Encounter Details Date Type Department Care Team (Late st Contact Info) Description 07/15/2019 12:05 AM CDT Hospital Encounter [facility] [address] [place] [address] Social History Tobacco Use Types Packs/Day Years [...] on file Legal Sex Female 12:16 AM PHYSICAL AERODYNAMICIST Gender Identity Not on file Sexual Orientation [...] CDT) Impressions [facility] - 10/16/2022 11:47 AM PHYSICAL AERODYNAMICIST These images are for Reference purposes only and have not been reviewed by [facility] Radiology. There will be no report generated by a [facility] Radiologist. Narrative [facility] - 10/16/2022 11:47 AM PHYSICAL AERODYNAMICIST EXAMINATION: Images For Reference Purposes Only us Saul Ortiz NP IMG MAMMO PROCEDURES Final Result [facility] documented in this encounter Visit Diagnoses Not on filedocumented in this encounter Care Teams Project Engineering Director Relationship Specialty Start Date End Date Jamaal Ibarra DO PCP - General 10/22/17 documented as of this encounter
--- OUTSIDE RECORDS SUMMARY | 2025-03-08 23:36 | XMS_ITS | Encounter Summary ---
Author Organization [facility] Healthcare Address [address] [place] [address] Care Team Providers Care Sausage Stuffer Name Role Phone Jamaal Ibarra DO Primary Care Provider [phone]- [phone] Reason for Visit * Diagnostic Imaging (Routine) - Closed Specialty Diagnoses / Procedures Referred By Liz obrrero Referred To Contact Procedures Breast Imaging US Outside Reference Saul Ortiz NP Phone: tel: fax: Referral ID Status Reason Start Date Expiration Date Visits Re quested Visits Authorized [id number] Closed 10/16/2022 11/15/2023 1 1 Encounter Details Date Type Department Care Team (Late st Contact Info) Description 07/15/2019 Hospital Encounter [facility]iology [facility] [place], [place] [id number] Social History Tobacco Use Types Packs/Day Years [...] on file Legal Sex Female 12:16 AM PROGRAMMING DIRECTOR Gender Identity Not on file Sexual [...] CDT) Impressions [facility] - 10/16/2022 11:47 AM PROGRAMMING DIRECTOR These images are for Reference purposes only and have not been reviewed by [facility] Radiology. There will be no report generated by a [facility] Radiologist. Narrative [facility] - 10/16/2022 11:47 AM PROGRAMMING DIRECTOR EXAMINATION: Images For Reference Purposes Only us Saul Ortiz NP IMG MAMMO PROCEDURES Final Result [facility] documented in this encounter Visit Diagnoses Not on filedocumented in this encounter Care Teams Sausage Stuffer Relationship Specialty Start Date End Date Jamaal Ibarra DO PCP - General 10/22/17 documented as of this encounter
--- OUTSIDE RECORDS SUMMARY | 2025-03-08 23:36 | XMS_ITS | Encounter Summary ---
Author Organization [facility] Healthcare Address [address] [place] [address] Care Team Providers Care Operations Chief Name Role Phone Jamaal Ibarra DO Primary Care Provider +1- [phone] Reason for Visit * Diagnostic Imaging (Routine) - Closed Specialty Diagnoses / Procedures Referred By Liz borrero Referred To Contact Procedures Breast Imaging Diagnostic Outside Reference Saul Ortiz NP Phone: tel: fax: Referral ID Status Reason Start Date Expiration Date Visits Re quested Visits Authorized [id number] Closed 10/16/2022 11/15/2023 1 1 Encounter Details Date Type Department Care Team (Late st Contact Info) Description 04/29/2020 12:05 AM CDT Hospital Encounter [facility] Radiology [facility] [address] [place] [address] Social History Tobacco Use Types Packs/Day Years [...] on file Legal Sex Female 12:16 AM ESTHETICIAN FACIALIST Gender Identity Not on file Sexual Orientation [...] CDT) Impressions [facility] - 10/16/2022 11:47 AM ESTHETICIAN FACIALIST These images are for Reference purposes only and have not been reviewed by [facility] Radiology. There will be no report generated by a [facility] Radiologist. Narrative [facility] - 10/16/2022 11:47 AM ESTHETICIAN FACIALIST EXAMINATION: Images For Reference Purposes Only us Saul Ortiz NP IMG MAMMO PROCEDURES Final Result [facility] documented in this encounter Visit Diagnoses Not on filedocumented in this encounter Care Teams Operations Chief Relationship Specialty Start Date End Date Jamaal Ibarra DO PCP - General 10/22/17 documented as of this encounter
--- OUTSIDE RECORDS SUMMARY | 2025-03-08 23:36 | XMS_ITS | Encounter Summary ---
Author Organization [facility] Address [address] [place] [address] Phone Care Team Providers Care Higher Education Administrator Name Role Phone Jamaal Ibarra DO Primary Care Provider +1- [phone] Encounter Details Date Type Department Care Team (Latest Contact Info) Description 10/14/2019 Orders Only [facility] Scanning, Provider Social History Tobacco Use Types Packs/Day Years Used Date Smoking Tobacco: Never Comments Unknown Sex and Gender Information Value Date Recorded Sex Assigned at Not on file Legal Sex Female 12:16 AM TAPER PRINTED CIRCUIT LAYOUT Gender Identity Not on file Sexual Orientation [...] on filedocumented in this encounter Care Teams Higher Education Administrator Relationship Specialty Start Date End Date Jamaal Ibarra DO PCP - General 10/22/17 documented as of this encounter
--- OUTSIDE RECORDS SUMMARY | 2025-03-08 23:36 | XMS_ITS | Encounter Summary ---
Author Organization [facility] Healthcare Address [address] [place] [address] Care Team Providers Care Material Processor Name Role Phone Jamaal Ibarra DO Primary Care Provider +1- [phone] Reason for Visit * Diagnostic Imaging (Routine) - Closed Specialty Diagnoses / Procedures Referred By Liz borrero Referred To Contact Procedures Breast Imaging US Outside Reference Saul Ortiz NP Phone: tel: fax: Referral ID Status Reason Start Date Expiration Date Visits Re quested Visits Authorized [id number] Closed 10/16/2022 11/15/2023 1 1 Encounter Details Date Type Department Care Team (Late st Contact Info) Description 04/29/2020 Hospital Encounter [facility] Radiology [facility] [address] [place] [address] Social History Tobacco Use Types Packs/Day [...] on file Legal Sex Female 12:16 AM HOGSHEAD HAND Gender Identity Not on file Sexual [...] CDT) Impressions [facility] - 10/16/2022 11:47 AM HOGSHEAD HAND These images are for Reference purposes only and have not been reviewed by [facility] Radiology. There will be no report generated by a [facility] Radiologist. Narrative [facility] - 10/16/2022 11:47 AM HOGSHEAD HAND EXAMINATION: Images For Reference Purposes Only us Saul Ortiz NP IMG MAMMO PROCEDURES Final Result [facility] documented in this encounter Visit Diagnoses Not on filedocumented in this encounter Care Teams Material Processor Relationship Specialty Start Date End Date Jamaal Ibarra DO PCP - General 10/22/17 documented as of this encounter
--- OUTSIDE RECORDS SUMMARY | 2025-03-08 23:36 | XMS_ITS | Encounter Summary ---
Author Organization [facility] Healthcare Address [address] [place] [address] Care Team Providers Care Pool Installer Name Role Phone Jamaal Ibarra DO Primary Care Provider +1- [phone] Reason for Visit * Diagnostic Imaging (Routine) - Closed Specialty Diagnoses / Procedures Referred By Liz borrero Referred To Contact Procedures Breast Imaging Screening Outside Reference Saul Ortiz NP Phone: tel: fax: Referral ID Status Reason Start Date Expiration Date Visits Re quested Visits Authorized [id number] Closed 10/16/2022 11/15/2023 1 1 Encounter Details Date Type Department Care Team (Late st Contact Info) Description 07/08/2019 Hospital Encounter [facility] Radiology [facility] [place], [place] [id number] Social History Tobacco Use Types Packs/Day Years [...] on file Legal Sex Female 12:16 AM THERAPY DIRECTOR Gender Identity Not on file Sexual [...] CDT) Impressions [facility] - 10/16/2022 11:48 AM THERAPY DIRECTOR These images are for Reference purposes only and have not been reviewed by [facility] Radiology. There will be no report generated by a [facility] Radiologist. Narrative [facility] - 10/16/2022 11:48 AM THERAPY DIRECTOR EXAMINATION: Images For Reference Purposes Only us Saul Ortiz NP IMG MAMMO PROCEDURES Final Result [facility] documented in this encounter Visit Diagnoses Not on filedocumented in this encounter Care Teams Pool Installer Relationship Specialty Start Date End Date Jamaal Ibarra DO PCP - General 10/22/17 documented as of this encounter
--- OUTSIDE RECORDS SUMMARY | 2025-03-08 23:37 | XMS_ITS | Clinical Summary ---
Author Organization [facility] [employer] Address [address] [place] [address] Care Team Providers Care Digital Account Supervisor Name Role Phone Lebron Pugh V. DO Unavailable Jamaal Ibarra DO Primary Care Provider [phone] Source Comments [facility],non-owned Affiliates and Associated Physician Practices is amultiple site organization consisting of ambulatory clinics and hospital sitesin [place], [place], [place] and [place]. This disclosure is being madepursuant to the Care Everywhere program and may not contain all information available regarding this patient. Last updated 18.[facility] Allergies Active Allergy Reactions Criticality Noted [...] tablet 2 Active vitamin D, ergocalciferol, (DRISDOL) 78996 UNITS capsule 1 Active gabapentin (NEURONTIN) 300 MG capsule 2 Active simvastatin (ZOCOR) 20 MG tablet 1 Active traMADol (ULTRAM) 50 MG tablet 1 014 Active traZODone (DESYREL) 50 MG tablet 6 Active zolpidem (AMBIEN) 10 MG tablet 5 Active megestrol (MEGACE) 40 MG tablet Take 1 Tab by mouth once daily. 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 Not on file Not on file Not on file Last Filed Vital Signs Vital Sign Reading Time Taken Comments Blood Pressure 126/74 10/21/2014 11:57 AM BUTTERMAKER CONTINUOUS CHURN Pulse 102 09/16/2013 1:06 PM BUTTERMAKER CONTINUOUS CHURN Temperature 36.8 C (98.2 F) 09/16/2013 1:06 PM BUTTERMAKER CONTINUOUS CHURN Respiratory Rate 20 09/16/2013 1:06 PM BUTTERMAKER CONTINUOUS CHURN Oxygen Saturation 98% 09/16/2013 1:06 PM BUTTERMAKER CONTINUOUS CHURN Inhaled Oxygen Concentration - - Weight 89.8 kg (198 lb) 10/21/2014 11:57 AM BUTTERMAKER CONTINUOUS CHURN Height 172.7 cm (5' 8) 10/21/2014 11:57 AM BUTTERMAKER CONTINUOUS CHURN Body Mass Index 30.11 10/21/2014 11:57 AM BUTTERMAKER CONTINUOUS CHURN Plan of Treatment Health Maintenance Due Date [...] HPV MRNA E6/E7 Routine 10/21/2014 1:52 PM BUTTERMAKER CONTINUOUS CHURN Routine gynecological examination MAMMO BILAT SCREENING Routine 09/22/2013 8:09 AM BUTTERMAKER CONTINUOUS CHURN Screening COMPREHENSIVE METABOLIC PANEL Routine 08/22/2013 8:00 AM BUTTERMAKER CONTINUOUS CHURN DM w/o Complication Type II, Uncontrolled HTN (hypertension), benign Abdominal pain, RUQ (right upper quadrant) Ketonuria HEMOGLOBIN A1C Routine 08/22/2013 8:00 AM BUTTERMAKER CONTINUOUS CHURN DM w/o Complication Type II, Uncontrolled MICROALB/CREAT RATIO URINE RANDOM PANEL Routine 08/21/2013 9:29 AM BUTTERMAKER CONTINUOUS CHURN DM w/o Complication Type II, Uncontrolled from Last 3 Months or Most Recently Relevant to Health Maintenance Results * PAP THIN PREP REFLX HPV (PO REF LAB) (10/21/2014 1:52 PM BUTTERMAKER CONTINUOUS CHURN) Clinical Information [facility] Comment:Routine exam LMP [facility] [...] has been evaluated with computer assisted technology. Nanoscience Technician [facility] Comment: BKA, CT(ASCP) Test Performed at: [facility] [address] LAURENCE JO MD ENTIRE ENDOCERVIX / Unknown 10/21/2014 1:52 PM BUTTERMAKER CONTINUOUS CHURN 10/22/2014 10:09 AM BUTTERMAKER CONTINUOUS CHURN Bienvenido Mcnair Jr., MD LAB - PATHOLOGY/CYTOL OGY ORDERABLES Final Result [address] [address] * MAMM SCREENING DIGITAL IMAGE BILAT G0202 (09/22/2013 8:09 AM BUTTERMAKER CONTINUOUS CHURN) Anatomical Region Laterality Modality Breast Bilateral Mammography 09/22/2013 11:5 3 AM BUTTERMAKER CONTINUOUS CHURN Impressions 09/22/2013 11:56 AM BUTTERMAKER CONTINUOUS CHURN No malignant abnormality identified. No significant change. BI-RADS category 1. Negative. RECOMMENDATIONS: Routine mammograms in one year. Narrative 09/22/2013 11:56 AM BUTTERMAKER CONTINUOUS CHURN Screening mammogram: HISTORY: Screening mammogram. Two views [...] * (ABNORMAL) HEMOGLOBIN A1C (08/22/2013 8:00 AM BUTTERMAKER CONTINUOUS CHURN) Hemoglobin A1c 12.6(H) <5.7 % of total [...] of diabetes for children. Test Performed at: [facility] [id number] [place] [address] PAPO BENNETT DO,MPH Whole blood specimen (specimen) BLOOD SPECIMEN / Unknown 08/22/2013 4:53 AM BUTTERMAKER CONTINUOUS CHURN us Salma Hunt TOOLING MANAGER-LACQUER DIPPING MACHINE OPERATOR LAB - CHEMISTRY ORDERA BLES Final Result [facility] [address] [place] [address] * (ABNORMAL) COMPREHENSIVE METABOLIC PANEL (08/22/2013 8:00 AM BUTTERMAKER CONTINUOUS CHURN) Glucose 312(H) 65 - 99 mg/dL [facility] [...] 29 U/L [facility] Comment: Test Performed at: [facility] [address] [place] [address] PAPO BENNETT DO,MPH Blood specimen (specimen) BLOOD SPECIMEN / Unknown 08/22/2013 4:53 AM BUTTERMAKER CONTINUOUS CHURN Salma Llanos Marilee TOOLING MANAGER-LACQUER DIPPING MACHINE OPERATOR LAB - CHEMISTRY ORDERA BLES Final Result Performing Organization Address [facility] de Phone Number [facility] [address] [place] [address] * (ABNORMAL) MICROALB/CREAT RATIO URINE RANDOM PANEL (08/21/2013 9:29 AM BUTTERMAKER CONTINUOUS CHURN) Creatinine Urine 129 20 - 320 mg/dL [...] within a diagnostic category. Test Performed at: [facility] [address] [place] [address] PAPO BENNETT DO,MPH Urine specimen (specimen) URINE SPECIMEN OBTAINED BY CLEAN CATCH PROCEDURE / Unknown 08/21/2013 9:29 AM BUTTERMAKER CONTINUOUS CHURN 08/22/2013 4:16 AM BUTTERMAKER CONTINUOUS CHURN Salma Hunt APRN-LACQUER DIPPING MACHINE OPERATOR LAB - URINE CHEMISTRY ORDERABLES Final Result Performing Organization Address [facility] de Phone Number [facility] [address] [place] [address] from Last 3 Months or Most Recently Relevant to Health Maintenance Insurance ANTHEM ANTHEM Advance Directives * FULL RESUSCITATION (Latest Code Status on File) Date Activated Date Inactivated Comments 05/06/2011 1:35 AM 05/08/2011 5:46 AM Care Teams Digital Account Supervisor Relationship Specialty Start Date End Date Jamaal Ibarra DO [address] [place] [address] PCP - General 06/01/21 Lebron Pugh DO [address] [place] [id number] Oncology 06/23/07
--- OUTSIDE RECORDS SUMMARY | 2025-03-08 23:37 | XMS_ITS | Encounter Summary ---
Author Organization [facility] Address [address] [place] [address] Care Team Providers Care Cushion Cover Inspector Name Role Phone Jamaal Ibarra DO Primary Care Provider Encounter Details Date Type Department Care Team (Latest Contact Info) Description 03/23/2002 Outpatient Historical [facility] [place] [address] [place] [address] MENSTRUAL DISORDER NEC (Primary Dx) Social History Tobacco Use Types Packs/Day Years Used Date Smoking Tobacco: Never Assessed Comments Unknown Sex and Gender Information Value Date Recorded Sex Assigned at Not on file Legal Sex Female 3:50 AM HISTOPATH TECH Gender Identity Not on file Sexual [...] documented as of this encounter Care Teams Cushion Cover Inspector Relationship Specialty Start Date End Date Jamaal Ibarra DO [address] [place] [address] PCP - General Internal Medicine 07/11/18 documented as of this encounter
--- OUTSIDE RECORDS SUMMARY | 2025-03-08 23:37 | XMS_ITS | CONTINUITY OF CARE DOCUMENT ---
Author Name shyanalili Address Unknown Organization [facility] Address [id number] [place] [address] [address] [place] [address] Phone [phone] Care Team Providers Care Pigment Furnace Tender Name Role Phone Edwar JAY, Rigoberto Unavailable JANNETTE JAY, LAYTON Unavailable JANETH GUZMAN DO Unavailable INSURANCE PROVIDERS Payer name Policy type / Coverage type [employer] red constitution party ID [facility] [id number]
--- OUTSIDE RECORDS SUMMARY | 2025-03-08 23:37 | XMS_ITS | Clinical Summary ---
Author Organization [facility] Address [address] [place] [address] Care Team Providers Care Sales Clerk Supervisor Name Role Phone Jamaal Ibarra DO [...] Encounter [facility] [address] [place] [address] Citlalli Altamirano MD Pickrell, Aaron A, MD Hughes, Theresa, MD Keech, Rachel C, Chronic ulcer of great toe of right foot, limited to breakdown of skin ([facility]) Discharge Disposition: Home or Self Care 01/29/2025 Mobile Encounter [facility] Adult Hospitalists [address] [phone] Citlalli Altamirano MD from Last 3 Months [...] on file 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 Gender Identity Not on file Sexual Orientation [...] - 99 mg/dL 02/01/2025 9:24 PM CDT [facility] SPECIMEN SOURCE, GLUCOSE POC Whole Blood 02/01/2025 9:24 PM CDT [facility] Blood, whole 02/01/2025 9:24 PM CDT 02/02/2025 6:24 AM CDT us Dorinda Oscar DO POINT OF CARE TESTING Final Re sult [facility]# [id number] [address] [place] [address] * XR CHEST PA OR AP 1 [...] - 9.8 K/uL 02/01/2025 9:40 AM CDT [facility] RBC 3.61(L) 3.90 - 4.90 M/uL 02/01/2025 9:40 AM CDT [facility] HEMOGLOBIN 10.4(L) 11.8 - 14.8 g/dL 02/01/2025 9:40 AM CDT [facility] HEMATOCRIT 33.5(L) 35.5 - 44.0 % 02/01/2025 9:40 AM CDT [facility] MCV 92.8 82.0 - 99.0 fL 02/01/2025 9:40 AM CDT [facility] MCH 28.8 27.2 - 32.6 pg 02/01/2025 9:40 AM CDT [facility] MCHC 31.0(L) 31.5 - 35.5 g/dL 02/01/2025 9:40 AM CDT [facility] RDW 13.0 11.5 - 14.5 % 02/01/2025 9:40 AM CDT [facility] - [facility] RDW-STDEV 43.9 37.1 - 48.7 fL 02/01/2025 9:40 AM CDT [facility] - [facility] PLATELETS 278 140 - 350 K/uL 02/01/2025 9:40 AM CDT [facility] - [facility] MPV 9.6 9.3 - 12.4 fL 02/01/2025 9:40 AM CDT [facility] - . [facility] NEUTROPHILS 76 % 02/01/2025 9:40 AM CDT [facility] - . [facility] LYMPHOCYTES 15 % 02/01/2025 9:40 AM CDT [facility] - . [place] MONOCYTES 5 % 02/01/2025 9:40 AM CDT [facility] - . [place] EOSINOPHILS 3 % 02/01/2025 9:40 AM CDT [facility] - . [facility] BASOPHILS 1 % 02/01/2025 9:40 AM LE TOTET [facility] - . [facility] IMMATURE GRANULOCYTES 1 % 02/01/2025 9:40 AM LE TOTET [facility] - . [facility] Comment:IG (Immature Granulo cyte) count includes Metamyelocytes, Myelocytes, and Promyelocytes NEUTROPHIL ABSOLUTE 6.69 1.90 - 7.00 K/uL 02/01/2025 9:40 AM CDT [facility] - . [facility] LYMPHOCYTE ABSOLUTE 1.36 0.70 - 4.50 K/uL 02/01/2025 9:40 AM CDT [facility] - . [facility] MONOCYTE ABSOLUTE 0.44 0.10 - 1.30 K/uL 02/01/2025 9:40 AM [facility] LABORATORY SERVICES - . [facility] EOSINOPHIL ABSOLUTE 0.23 0.00 - 0.70 K/uL 02/01/2025 9:40 AM LE TOTET [facility] - . [facility] BASOPHILS ABSOLUTE 0.05 0.00 - 0.20 K/uL 02/01/2025 9:40 AM [facility]ORATORY SERVICES - . [facility] IMMATURE GRANULOCYTES ABSOLUTE 0.09(H) 0.00 - 0.03 K/uL 02/01/2025 9:40 AM [facility] LABORATORY SERVICES - [facility] Blood Venipuncture / Unknown 02/01/2025 8:41 AM CDT 02/01/2025 9:19 AM CDT Lee Ann Berman MD HEMATOLOGY ORDERABLES Final Re sult Performing Organization Address [facility]/ZIP Co de Phone Number [facility] [facility] CLIA# [id number] [address] [place] [address] * (ABNORMAL) C-REACTIVE PROTEIN (02/01/2025 8:41 AM CDT) Only the most recent of2 resultswithin the time period is included. CRP 19.8(H) <5.0 mg/L 02/01/2025 12:44 PM [facility] Blood Venipuncture / Unknown 02/01/2025 8:41 AM CDT 02/01/2025 9:19 AM CDT Lee Ann Berman MD CHEMISTRY ORDERABLES Final Res ult Performing Organization Address [facility] Co de Phone Number [facility] [facility] CLIA# [id number] [address] [place] [address] * (ABNORMAL) BASIC METABOLIC PANEL (02/01/2025 8:41 AM CDT) Only the most recent of3 resultswithin the time period is included. SODIUM 139 136 - 145 mmol/L 02/01/2025 10:01 AM T [facility] POTASSIUM 3.6 3.5 - 5.0 mmol/L 02/01/2025 10:01 AM T [facility] SERVICES - [facility] CHLORIDE 108(H) 98 - 107 mmol/L 02/01/2025 10:01 AM T [facility] SERVICES - . [facility] CO2 20(L) 22 - 29 mmol/L 02/01/2025 10:01 AM T [facility] LABORATORY SERVICES [facility]. [facility] CALCIUM 9.8 8.6 - 10.2 mg/dL 02/01/2025 10:01 AM T [facility] SERVICES - . [facility] BUN 22(H) 6 - 20 mg/dL 02/01/2025 10:01 AM [facility] CREATININE 1.90(H) 0.51 - 0.95 mg/dL 02/01/2025 10:01 AM [facility] GLUCOSE 167(H) 74 - 99 mg/dL 02/01/2025 10:01 AM [facility] GFR 32(L) >=60 mL/min/1.7 3 sq meter 02/01/2025 10:01 AM [facility]ATORY [facility] Comment:eGFR calculated with 2020 CKD-EPI equation. Vegetarian diet, extremely high or low muscle mass, and may affect results. Cystatin C with Glomerular Filtration Rate is a suitable alternative for these patients. ANION GAP 11 8 - 16 mmol/L 02/01/2025 10:01 AM [facility] [employer] [facility] Blood Venipuncture / Unknown 02/01/2025 8:41 AM CDT 02/01/2025 9:19 AM CDT us Lee Ann Berman MD CHEMISTRY ORDERABLES Final Res ult [facility] [facility]# [id number] [address] [place], [place] [address] [facility] [place] [address] * (ABNORMAL) URINALYSIS WITH REFLEX MICROSCOPIC (01/31/2025 11:40 AM CDT) COLOR UA Pale Yellow Pale to Dark Yellow 01/31/2025 12:14 PM [facility] LAB[facility]ATORY [facility] CLARITY UA Clear Clear 01/31/2025 12:14 PM [facility] LABORATORY [facility] SPECIFIC GRAVITY UA 1.006 1.003 - 1.035 01/31/2025 12:14 PM [facility] [employer] [facility] PH UA 7.0 5.0 - 8.0 01/31/2025 12:14 PM [facility] LABORATORY [facility] LEUKOCYTE ESTERASE UA Negative Negative 01/31/2025 12:14 PM [facility] LABORATORY [facility]. [facility] NITRITE UA Negative Negative 01/31/2025 12:14 PM CDT [employer] LABORATORY SERVICES - [facility] PROTEIN UA 2+(A) Negative 01/31/2025 12:14 PM CDT [employer] LABORATORY SERVICES - [facility] GLUCOSE UA Negative Negative 01/31/2025 12:14 PM CDT [employer] [facility]ATORY SERVICES - [facility] KETONES UA Negative Negative 01/31/2025 12:14 PM CDT [employer] [facility]ORATORY SERVICES - [facility] UROBILINOGEN UA Normal <2.0 mg/dL 12:14 PM CDT [employer] [facility]ATORY SERVICES - [facility] BILIRUBIN UA Negative Negative 01/31/2025 12:14 PM CDT [facility] SERVICES - [facility] BLOOD UA Negative Negative 01/31/2025 12:14 PM CDT [employer] LABORATORY SERVICES - [facility] WBC UA 0-2 0 - 2 /hpf 01/31/2025 12:14 PM T [employer] LABORATORY SERVICES - [facility] RBC UA 0-2 0 - 2 /hpf 01/31/2025 12:14 PM CDT [facility] SERVICES - [facility] BACTERIA UA Negative Negative /hpf 01/31/2025 12:14 PM T [facility] - [facility] EPITHELIAL CELLS, URINE 0-5 0 - 5 /hpf 01/31/2025 12:14 PM T [facility] - [facility] Urine URINE SPECIMEN OBTAINED BY CLEAN CATCH PROCEDURE / Unknown 01/31/2025 11:40 AM CDT 01/31/2025 11:40 AM CDT Lee Ann Berman MD URINE ORDERABLES Final Result [facility] SERVICES - [facility] CLIA# [id number] [address] [place], [place] [id number] * (ABNORMAL) CBC WITHOUT DIFFERENTIAL (01/31/2025 9:10 AM CDT) Only the most recent of2 resultswithin the time period is included. WBC 7.6 4.0 - 9.8 K/uL 01/31/2025 9:21 AM CDT [employer] LABORATORY SERVICES - [facility] RBC 3.54(L) 3.90 - 4.90 M/uL 01/31/2025 9:21 AM CDT [facility]ORATORY SERVICES - [facility] HEMOGLOBIN 10.3(L) 11.8 - 14.8 g/dL 01/31/2025 9:21 AM T [facility]ORY SERVICES - [facility] HEMATOCRIT 32.6(L) 35.5 - 44.0 % 01/31/2025 9:21 AM T [facility]ORY SERVICES - [facility] MCV 92.1 82.0 - 99.0 fL 01/31/2025 9:21 AM CDT [facility] SERVICES - [facility] MCH 29.1 27.2 - 32.6 pg 01/31/2025 9:21 AM CDT [facility] SERVICES - [facility] MCHC 31.6 31.5 - 35.5 g/dL 01/31/2025 9:21 AM T [facility]ORY SERVICES - [facility] PLATELETS 247 140 - 350 K/uL 01/31/2025 9:21 AM T [facility]ORY SERVICES - [facility] MPV 9.7 9.3 - 12.4 fL 01/31/2025 9:21 AM T [facility]ORY SERVICES - [facility] RDW 12.9 11.5 - 14.5 % 01/31/2025 9:21 AM T [facility]ORY SERVICES - [facility] RDW-STDEV 43.7 37.1 - 48.7 fL 01/31/2025 9:21 AM T [facility]ORY SERVICES - [facility] Blood Venipuncture / Unknown 01/31/2025 9:10 AM CDT 01/31/2025 9:14 AM CDT us Parris Summers MD HEMATOLOGY ORDERABLES Final Result [facility] - [facility]# [id number] [address] [facility] [address] [place] [address] * MAGNESIUM LEVEL (01/31/2025 9:10 AM CDT) Only the most recent of2 resultswithin the time period is included. MAGNESIUM 1.8 1.6 - 2.6 mg/dL 01/31/2025 12:30 PM CDT [facility] Blood Venipuncture / Unknown 01/31/2025 9:10 AM CDT 01/31/2025 9:14 AM CDT us Lee Ann Berman MD CHEMISTRY ORDERABLES Final Res ult [facility] [employer] [facility] CLIA# [id number] [address] [place] [address] [place] [id number] * US VENOUS DOPPLER LEG BILATERAL (01/30/2025 1:52 PM CDT) Anatomical Region Laterality Modality Lower Extremity Ultrasound 01/30/2025 1:32 PM CDT Narrative 01/31/2025 7:55 AM CDT [address] [address] [email or web address] Venous Exam Complete Lower Extremity Duplex Patient: Jennifer Londono Study ID: [id number] Gender: F : 1975 Age: 49 Race: CAU Height Study Date: 01/30/2025 Weight: Access. #: [id number] *Referring Physician:* Parris Summers Aaron A *Ordering Physician:* Parris Summers *Inweaver:* Lorrie Mendenhall Indications: R/O DVT perordering provider. [...] mm Prepared and Electronically Authenticated Nii Dawkins [id number] Procedure Note Nii Dawkins MD - 01/31/[address] [address] [email or web address] Venous Exam Complete Lower Extremity Duplex Patient: Jennifer Londono Study ID:[id number] Gender: F :1975 Age: 49 Race: CAU Height Study Date:01/30/2025 Weight: Access. #:[id number] *Referring Physician:Parris Li Aaron A *Ordering Physician:Parris LiInweaver:Lorrie Giraldo Indications: R/O DVT perordering provider. History: [...] mm Prepared and Electronically Authenticated Nii Dawkins [id number] Parris Summers MD US ORDERABLES Final Result * UREA NITROGEN/CREATININE RATIO, URINE (01/30/2025 9:53 AM CDT) UREA NITROGEN, URINE 429 mg/dL 01/30/2025 10:49 AM CDT [facility] Comment:Reference range not established CREATININE, URINE 60.4 29.0 - 226.0 mg/dL 01/30/2025 10:49 AM CDT [facility] Comment:Reference Range vari es with fluid intake and diet. UREA/CREAT RATIO, UR 7.1 Reference Range not established mg/mg Creatinine 01/30/2025 10:49 AM CDT [facility] Urine URINE SPECIMEN OBTAINED BY CLEAN CATCH PROCEDURE / Unknown Collection / Unknown 01/30/2025 9:53 AM CDT 01/30/2025 10:04 AM CDT Parris Summers MD URINE ORDERABLES Final Resul t [facility] CLIA# [id number] [address] [place] [address] * SODIUM, RANDOM URINE (01/30/2025 9:53 AM CDT) SODIUM, URINE 32 mmol/L 01/30/2025 10:40 AM CDT [facility] [employer] [facility] Comment:Reference range not established Urine URINE SPECIMEN OBTAINED BY CLEAN CATCH PROCEDURE / Unknown Collection / Unknown 01/30/2025 9:53 AM CDT 01/30/2025 10:04 AM CDT Parris Summers MD URINE ORDERABLES Final Resul t [facility] CLIA# [id number] [address] [place] [address] * (ABNORMAL) PROTEIN/CREATININE RATIO, URINE (01/30/2025 9:53 AM CDT) PROTEIN CONCENTRATION 233(H) 0 - 20 mg/dL 01/30/2025 10:52 AM CDT [facility] CREATININE, URINE 61.1 29.0 - 226.0 mg/dL 01/30/2025 10:52 AM CDT [facility] Comment:Reference Range vari es with fluid intake and diet. PROTEIN/CREAT RATIO, URINE 3.81(H) 0.00 - 0.19 mg/mg Creatinine 01/30/2025 10:52 AM CDT [facility] Urine URINE SPECIMEN OBTAINED BY CLEAN CATCH PROCEDURE / Unknown Collection / Unknown 01/30/2025 9:53 AM CDT 01/30/2025 10:04 AM CDT Parris Summers MD URINE ORDERABLES Final Resul t Performing Organization Address [facility]/ZIP Co de Phone Number [facility]# [id number] [address] [place] [address] * OSMOLALITY, URINE (01/30/2025 9:53 AM CDT) OSMOLALITY, URINE 287 50 - 1,200 mOsm/kg 01/30/2025 10:30 AM CDT [facility] Urine URINE SPECIMEN OBTAINED BY CLEAN CATCH PROCEDURE / Unknown Collection / Unknown 01/30/2025 9:53 AM CDT 01/30/2025 10:04 AM CDT Narrative [facility] - 01/30/2025 10:30 AM CDT Reference range: 50-1200 mOsm/kg H2O, depending on fluid intake. us Parris Summers MD URINE ORDERABLES Final Resul t Performing Organization Address City/[facility]/ZIP Co de Phone Number [facility] CLIA# [id number] [address] [place] [address] * OSMOLALITY (01/29/2025 7:53 PM CDT) OSMOLALITY 300 275 - 300 mOsm/kg 01/29/2025 9:21 PM CDT [facility] [employer] [facility] Blood Venipuncture / Unknown 01/29/2025 7:53 PM CDT 01/29/2025 8:18 PM CDT Parris Summers MD CHEMISTRY ORDERABLES Final R esult [facility] CLIA# [id number] [address] [place] [address] * MRI FOOT WO CONTRAST RIGHT (01/29/2025 [...] dorsally. DICTATION LOCATION: Location 2 - [facility] Narrative 01/30/2025 7:54 AM CDT MRI [...] greatest dorsally. DICTATION LOCATION: Location - [facility] Parris Summers MD MR ORDERABLES Final Result * RESPIRATORY PATHOGEN PCR PANEL (01/29/2025 4:29 PM CDT) [facility] Respiratory Pathogen PCR Panel NOT DETECTED No respiratory pathogen nucleic acids detected. 01/29/2025 5:40 PM CDT [facility] COVID-19 PCR NOT DETECTED Not Detected 01/29/2025 5:40 PM CDT [facility] Upper Respiratory ENTIRE NASOPHARYNX / Unknown Collection / Unknown 01/29/2025 4:29 PM CDT 01/29/2025 4:44 PM CDT [facility] - 01/29/2025 5:40 PM CDT [...] MICROBIOLOGY - GENERAL ORDER ISIAH Final Result [facility]# [id number] [address] [place] [address] [place] [address] * GI PATHOGEN PCR PANEL (01/29/2025 4:26 PM CDT) Pathologist [facility] GI Pathogen PCR panel NOT DETECTED No nucleic acids detected. 01/29/2025 6:10 PM CDT [facility] Stool STOOL SPECIMEN / Unknown Collection / Unknown 01/29/2025 4:26 PM CDT 01/29/2025 4:37 PM CDT [facility] - 01/29/2025 6:10 PM CDT [...] MICROBIOLOGY - GENERAL ORDER ISIAH Final Result [facility] LABORATORY SERVICES [facility]# [id number] [address] [facility] [place] [address] * XR CHEST PA AND LATERAL 2 [...] * TSH REFLEXIVE (01/29/2025 2:08 PM CDT) [facility] TSH 1.92 0.27 - 4.20 uIU/mL 01/29/2025 4:01 PM CDT [facility] Blood Venipuncture / Unknown 01/29/2025 2:08 PM CDT 01/29/2025 3:14 PM CDT Parris Summers MD CHEMISTRY ORDERABLES Final R esult Performing Organization Address [facility]/ZIP Co de Phone Number [facility] CLIA# [id number] [address] [place] [address] * (ABNORMAL) IRON, TIBC, AND PERCENT SATURATION (01/29/2025 2:08 PM CDT) [facility] IRON 22(L) 37 - 145 ug/dL 01/29/2025 4:01 PM CDT [facility] TIBC 230(L) 250 - 450 ug/dL 01/29/2025 4:01 PM CDT [facility] IRON % SATURATION 10(L) 15 - 50 % 01/29/2025 4:01 PM CDT [facility] TRANSFERRIN 181(L) 200 - 360 mg/dL 01/29/2025 4:01 PM CDT [facility] Blood Venipuncture / Unknown 01/29/2025 2:08 PM CDT 01/29/2025 3:14 PM CDT Parris Summers MD CHEMISTRY ORDERABLES Final R esult [facility] CLDE# [id number] [address] [place] [address] * (ABNORMAL) SEDIMENTATION RATE (01/29/2025 2:08 PM CDT) [facility] ESR (SEDIMENTATION RATE) 76(H) <=30 mm/Hr 01/29/2025 4:00 PM CDT [employer] LABORATORY [facility] Blood Venipuncture / Unknown 01/29/2025 2:08 PM CDT 01/29/2025 3:15 PM CDT Parris Summers MD HEMATOLOGY ORDERABLES Final Result Performing Organization Address [facility] [[email or web address]] de Phone Number [facility] [employer] [facility]# [id number] [address] [place] [address] * (ABNORMAL) HEMOGLOBIN A1C (01/29/2025 2:08 PM CDT) HEMOGLOBIN A1C 8.4(H) <5.7 % 01/29/2025 3:35 PM CDT [employer] [facility] EST. AVG GLUCOSE, A1C 194 mg/dL 01/29/2025 3:35 PM CDT [employer] [facility] Blood Venipuncture / Unknown 01/29/2025 2:08 PM CDT 01/29/2025 3:15 PM CDT Narrative [facility] - 01/29/2025 3:35 PM CDT HGB A1C INTERPRETATION NORMAL: <5.7% PRE-DIABETES: 5.7 - 6.4% DIABETES: 6.5% OR GREATER Parris Summers MD CHEMISTRY ORDERABLES Final R esult Performing Organization Address City/[facility]/ZIP Co de Phone Number [facility] [employer] [facility]# [id number] [address] [place] [address] * (ABNORMAL) COMPREHENSIVE METABOLIC PANEL (01/29/2025 2:08 PM CDT) Pathologist [facility] SODIUM 139 136 - 145 mmol/L 01/29/2025 4:01 PM CDT [employer] [facility] POTASSIUM 3.6 3.5 - 5.0 mmol/L 01/29/2025 4:01 PM CDT [employer] [facility] CHLORIDE 109(H) 98 - 107 mmol/L 01/29/2025 4:01 PM [facility] LABORATORY [facility] CO2 20(L) 22 - 29 mmol/L 01/29/2025 4:01 PM [facility] CALCIUM 9.8 8.6 - 10.2 mg/dL 01/29/2025 4:01 PM [facility] BUN 34(H) 6 - 20 mg/dL 01/29/2025 4:01 PM [facility] CREATININE 2.51(H) 0.51 - 0.95 mg/dL 01/29/2025 4:01 PM [facility] [employer] [facility] GLUCOSE 134(H) 74 - 99 mg/dL 01/29/2025 4:01 PM [facility] TOTAL PROTEIN 6.2(L) 6.7 - 8.6 g/dL 01/29/2025 4:01 PM [facility] LABORATORY [facility] ALBUMIN 3.1(L) 3.5 - 5.2 g/dL 01/29/2025 4:01 PM [facility] LABORATORY [facility] BILIRUBIN TOTAL 0.2(L) 0.3 - 1.2 mg/dL 01/29/2025 4:01 PM [facility] ALKALINE PHOSPHATASE 90 35 - 104 U/L 01/29/2025 4:01 PM [facility] AST 8 <33 U/L 01/29/2025 4:01 PM [facility] [employer] [facility] ALT 9 <34 U/L 01/29/2025 4:01 PM [facility] [employer] [facility] GFR 23(L) >=60 mL/min/1.7 3 sq meter 01/29/2025 4:01 PM [facility] [employer] [facility] Comment:eGFR calculated with 2020 CKD-EPI equation. Vegetarian diet, extremely high or low muscle mass, and may affect results. Cystatin C with Glomerular Filtration Rate is a suitable alternative for these patients. ANION GAP 10 8 - 16 mmol/L 01/29/2025 4:01 PM CDT [facility] Blood Venipuncture / Unknown 01/29/2025 2:08 PM CDT 01/29/2025 3:14 PM CDT Narrative [facility] - 01/29/2025 4:01 PM CDT Samples containing indocyanine green cause interferences on Total and/or Direct Bilirubin and must not be measured. us Parris Summers MD CHEMISTRY ORDERABLES Final R esult [facility] CLIA# [id number] [address] [place] [address] from Last 3 Months Insurance [facility] PREFERRED RX [employer] Commercial Advance Directives For more information, please contact: [phone] * Full Code (Latest Code Status on File) Date Activated Date Inactivated Comments 01/29/2025 1:42 PM 02/02/2025 12:23 PM Care Teams Sales Clerk Supervisor Relationship Specialty Start Date End Date Jamaal Ibarra DO [address] [id number] PCP - General Internal Medicine 07/11/18
--- OUTSIDE RECORDS SUMMARY | 2025-03-08 23:37 | XMS_ITS | Clinical Summary ---
Author Organization [facility] Address [address] [place] [address] Care Team Providers Care Almond Paste Mixer Name Role Phone Jamaal Ibarra DO Primary Care Provider +1- [phone] Allergies Active Allergy Reactions Criticality Noted Date [...] 09/06/2021 Assessment & Plan (09/06/2021 9:49 AM PILE DRIVER): -Fatigue is most likely multifactorial as she [...] 09/16/2017 Assessment & Plan (09/06/2021 9:45 AM PILE DRIVER): -Taking weekly Vitamin D -Will repeat Vitamin D level Type 1 diabetes mellitus with hyperglycemia 03/2017 Nocturia 06/12/2017 Gastroesophageal reflux disease 10/27/2014 Seronegative rheumatoid arthritis 10/27/2014 Swelling of hand 10/27/2014 Fibroid 10/21/2014 Fibromyalgia 06/09/2014 Hypertension 04/27/2014 Assessment & Plan (09/06/2021 9:45 AM PILE DRIVER): -BP today is 121/81 -Will continue same antihypertensive medications at this time. Hyperlipidemia 04/27/2014 Assessment & Plan (09/06/2021 9:45 AM PILE DRIVER): -Will continue statin as it is being [...] 01/22/2023 Assessment & Plan (09/06/2021 9:45 AM PILE DRIVER): -Currently taking MDI -A1C on 09/06/21 was [...] 06/12/201701/05 Assessment & Plan (09/06/2021 9:07 AM PILE DRIVER): -States she has been off of LT4 for 2 years -Will repeat TFT. Encounters Date Type Department Care Team Description 03/08/2025 Orders Only [facility] Cardiology [address] [place] [address] Odilia Rodriguez MD 03/03/2025 2:00 PM CDT Office Visit [facility] Endocrinology Metabolism and Lipid [address] [facility] [facility] [address] 13th [place] [address] [place] [address] Sarah Haskins MD Type 1 diabetes mellitus with hyperglycemia (HCC) (Primary Dx); Hyperlipidemia, unspecified hyperlipidemia type; Vitamin D deficiency; Thyroid nodule 02/26/2025 11:15 AM CDT Procedure visit [facility] Ophthalmology 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 02/11/2025 Orders Only [facility] Cardiology [address] [place] [id number] Kayla Conklin NP from Last 3 Months [...] on file Legal Sex Female 12:16 AM PILE DRIVER Gender Identity Not on file Sexual Orientation [...] Priority Date/Time Associated Diagnosis Comments POCT GLUCOSE [id number] Routine 03/03/2025 1: 56 PM CDT Type [...] HEMOGLOBIN A1C Routine 10/23/2024 8 :29 AM PILE DRIVER Type 1 diabetes mellitus with hyperglycemia (HCC) [...] POCT glucose (03/03/2025 1:56 PM CDT) Pathologist [facility] Glucose Blood, POC 377 Normal Fasting 70 [...] mg/0.05 mL Route: intravitreal, Site: Left Eye [facility]: 27062-662-83, Lot: [id number], Expiration date: 04/05/2026, Waste: 0 mL Medication [...] OS signed 05/08/2024.iM AC tap 0.1 mL Stveen Edmonds MD OPHTH CLINIC PROCEDURES Fi nal [...] Dorman MD LAB BLOOD ORDERABLES Final Result [facility] Department [place] [address] * Albumin Creatinine Ratio, Urine (01/24/2024) Urine Sarah Haskins MD LAB URINE ORDERABLES Final Resu lt Performing Organization Address [facility]/ZIP Co de Phone Number EXTERNAL LAB * TSH (01/24/2024) Blood Sarah Haskins MD LAB BLOOD ORDERABLES Final Resu lt Performing Organization Address [facility] Co de Phone Number EXTERNAL LAB * Lipid panel (01/24/2024) Blood Sarah Haskins MD LAB BLOOD ORDERABLES Final Resu lt Performing Organization Address [facility] de Phone Number EXTERNAL LAB * [...] nipple by physician COMPARISON: Outside exams from [place] 09/13/2022to 07/08/2019 TECHNIQUE: Full field digital mammographic [...] - 07/12/2021 5:08 PM CDT Performed at: [facility] [id number] Personal Support Worker: Link Myles PhD, Phone: [phone] us Lorrie Saavedra MD LAB MICROBIOLOGY - GENERAL ORD ERABLES Final Result [facility] - 01 from Last 3 Months or Most Recently Relevant to Health Maintenance Insurance [place] CHO[place] GENERIC COPAY ASSIST BL CHOICE PRF [place] WORKERS COMPENSATION GENERIC WORKERS COMPENSATION [place] [address] Care Teams Almond Paste Mixer Relationship Specialty Start Date End Date Jamaal Ibarra DO PCP - General 10/22/17
--- OUTSIDE RECORDS SUMMARY | 2025-03-08 23:37 | XMS_ITS | Clinical Summary ---
Author Organization [facility] Address [address] [place] [address] Phone Care Team Providers Care Grocery Worker Name Role Phone JeanniesvetaJamaal jernigan Primary Care Provider [phone] Allergies Active Allergy Reactions Criticality Noted Date [...] 2 Active ergocalciferol (VITAMIN D2) 1.25 MG (49583 UT) capsule TAKE 1 CAPSULE BY MOUTH [...] Comments Blood Pressure 128/72 09/05/2022 8:31 AM SENIOR SQL DATABASE DEVELOPER Pulse - - Temperature 36.5 C (97.7 F) 09/05/2022 8:31 AM SENIOR SQL DATABASE DEVELOPER Respiratory Rate 18 09/05/2022 8:31 AM SENIOR SQL DATABASE DEVELOPER Oxygen Saturation - - Inhaled Oxygen Concentration - - Weight 121 kg (267 lb) 09/05/2022 8:31 AM SENIOR SQL DATABASE DEVELOPER Height 172.7 cm (5' 8) 09/05/2022 8:31 AM SENIOR SQL DATABASE DEVELOPER Body Mass Index 40.6 09/05/2022 8:31 AM SENIOR SQL DATABASE DEVELOPER Plan of Treatment Health Maintenance Due Date Last Done Comments Influenza Vaccine (Season Ended) 2025 07/07/2020, 07/30/2019, 07/16/2018, Additional history exists Insurance [facility] Care Teams 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
--- OUTSIDE RECORDS SUMMARY | 2025-03-08 23:37 | XMS_ITS | Encounter Summary ---
Author Organization [facility] Address [address] [place] [address] Care Team Providers Care Chicken Cleaner Name Role Phone Jamaal Ibarra DO Primary Care Provider [phone]- [phone] Encounter Details Date Type Department Care Team (Late st Contact Info) Description 03/08/2025 Orders Only [facility] Cardiology [address] [place] [address] Odilia Rodriguez MD [address] [place] [address] Social History Tobacco Use Types [...] on file Legal Sex Female 12:16 AM DAMASCENER Gender Identity Not on file Sexual Orientation [...] on filedocumented in this encounter Care Teams Chicken Cleaner Relationship Specialty Start Date End Date Jamaal Ibarra DO PCP - General 10/22/17 documented as of this encounter
--- OUTSIDE RECORDS SUMMARY | 2025-03-08 23:37 | XMS_ITS | Referral Summary ---
Author Organization [facility] Address [address] [place] [address] Care Team Providers Care Customer Support Associate Name Role Phone Jamaal Ibarra DO Primary Care Provider [phone]- [phone] Encounters Date Type Department Care Team Description 03/08/2025 Orders Only [facility] Cardiology [address] [place] [address] Odilia Rodriguez MD 03/03/2025 2:00 PM CDT Office Visit [facility] Endocrinology Metabolism and Lipid [address] [facility] 13th [place] [address] [place] [address] Sarah Haskins MD Type 1 diabetes mellitus with hyperglycemia (HCC) (Primary Dx); Hyperlipidemia, unspecified hyperlipidemia type; Vitamin D deficiency; Thyroid nodule 02/26/2025 11:15 AM CDT Procedure visit [facility] Ophthalmology [address] 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) (Primary Dx); Vitreous hemorrhage of left eye (HCC); 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 02/11/2025 Orders Only [facility] Cardiology [address] [place] [address] Kayla Conklin NP from Last [...] 09/06/2021 Assessment & Plan (09/06/2021 9:49 AM CUSTOMER SERVICE SALES CONSULTANT): -Fatigue is most likely multifactorial as [...] 09/16/2017 Assessment & Plan (09/06/2021 9:45 AM CUSTOMER SERVICE SALES CONSULTANT): -Taking weekly Vitamin D -Will repeat Vitamin D level Type 1 diabetes mellitus with hyperglycemia 03/2017 Nocturia 06/12/2017 Gastroesophageal reflux disease 10/27/2014 Seronegative rheumatoid arthritis 10/27/2014 Swelling of hand 10/27/2014 Fibroid 10/21/2014 Fibromyalgia 06/09/2014 Hypertension 04/27/2014 Assessment & Plan (09/06/2021 9:45 AM CUSTOMER SERVICE SALES CONSULTANT): -BP today is 121/81 -Will continue same antihypertensive medications at this time. Hyperlipidemia 04/27/2014 Assessment & Plan (09/06/2021 9:45 AM CUSTOMER SERVICE SALES CONSULTANT): -Will continue statin as it is [...] 01/22/2023 Assessment & Plan (09/06/2021 9:45 AM CUSTOMER SERVICE SALES CONSULTANT): -Currently taking MDI -A1C on 09/06/21 [...] 06/12/201701/05 Assessment & Plan (09/06/2021 9:07 AM CUSTOMER SERVICE SALES CONSULTANT): -States she has been off of [...] on file Legal Sex Female 12:16 AM CUSTOMER SERVICE SALES CONSULTANT Gender Identity Not on file Sexual [...] Priority Date/Time Associated Diagnosis Comments POCT GLUCOSE [id number] Routine 03/03/2025 1: 56 PM CDT Type [...] HEMOGLOBIN A1C Routine 10/23/2024 8 :29 AM CUSTOMER SERVICE SALES CONSULTANT Type 1 diabetes mellitus with hyperglycemia [...] mL Route: intravitreal, Site: Left Eye [facility]: [id number], Lot: [id number], Expiration date: 04/05/2026, Waste: 0 mL Medication [...] BLOOD ORDERABLES Final Result Performing Organization Address [facility] Co de Phone Number [facility] Department [place] [address] * Albumin Creatinine Ratio, Urine (01/24/2024) Urine us Sarah Haskins MD LAB URINE ORDERABLES Final Resu lt Performing Organization Address City/[facility]/ZIP Co de Phone Number EXTERNAL LAB * TSH (01/24/2024) Blood us Sarah Haskins MD LAB BLOOD ORDERABLES Final Resu lt EXTERNAL LAB * Lipid panel (01/24/2024) Blood us Sarah Haskins MD LAB BLOOD ORDERABLES Final Resu lt Performing Organization Address [facility] Co de Phone Number [...] nipple by physician COMPARISON: Outside exams from [place] 09/13/2022to 07/08/2019 TECHNIQUE: Full field digital mammographic [...] 07/12/2021 5:08 PM CDT Performed at: - [address] [id number] [employer] Administrator: Link Myles PhD, Phone: [phone] Lorrie Saavedra MD LAB MICROBIOLOGY - GENERAL ORD ERABLES Final Result [facility] - 01 from Last 3 Months or Most Recently Relevant to Health Maintenance Insurance ID[place] GENER[place] COPAY ASSIST [place] COMP[place] GENERIC WORKERS COMPENSATION GENERIC Care Teams Customer Support Associate Relationship Specialty Start Date End Date Jamaal Ibarra DO PCP - General 10/22/17
--- OUTSIDE RECORDS SUMMARY | 2025-03-08 23:37 | XMS_ITS | Encounter Summary ---
Author Organization [facility] Address [address] [place] [address] Phone Care Team Providers Care Stallion Keeper Name Role Phone Jamaal Ibarra DO Primary Care Provider [phone]- [phone] Encounter Details Date Type Department Care Team (Late st Contact Info) Description 08/03/2021 Orders Only [facility] Rheumatology [address] [facility] 5th [place] [address] [place] [address] Jana Medley, B.A. 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
--- OUTSIDE RECORDS SUMMARY | 2025-03-08 23:37 | XMS_ITS | Encounter Summary ---
Author Organization [facility] Address [address] [place] [address] Phone Care Team Providers Care Guyline Operator Name Role Phone Jamaal Ibarra DO Primary Care Provider [phone]- [phone] Encounter Details Date Type Department Care Team (Late st Contact Info) Description 10/18/[address] 5th [place] [address] [place] [address] Era Taylor CMA Social History Tobacco Use Types Packs/Day Years Used Date Smoking Tobacco: Never Smokeless Tobacco: Never Comments Unknown Sex and Gender Information Value Date Recorded Sex Assigned at Not on file Legal Sex Female 12:16 AM SNUBBER Gender Identity Not on file Sexual Orientation Not on file documented as of this encounter Plan of Treatment Not on file documented as of this encounter Visit Diagnoses Not on filedocumented in this encounter Care Teams Guyline Operator Relationship Specialty Start Date End Date Jamaal Ibarra DO PCP - General 10/22/17 documented as of this encounter
--- NOTE | 2025-03-08 23:38 | ED_ITS ---
HPI - Recheck/Abnormal Lab/Rx General Chief Complaint: Recheck/Abnormal Lab/Rx Stated Complaint: Blood glucose 436-poss DKA Time Seen by Provider: 03/08/25 23:04 Source: patient Limitations: no limitations History of Present Illness HPI narrative: Patient with T1DM presents with concern for possible DKA. She has been having high blood sugars at home, 430s-580s since Saturday. She has been experiencing myalgias and decreased PO intake and decreased appetite. Feeling nauseated. She is on long acting Lantus 38U BID but her last dose was yesterday PM. She takes short acting Novolog as a sliding scale, had 40U at 4pm. Has been in DKA before when she had insulin pump failure - no longer has insulin pump as a result. Has an appointment to see soil biology teacher at [facility] . Last week, HA1c was 8.3%. Follows with nephrology who ordered labs. No cough, fevers, chills, diarrhea. LBM 6 days ago. No sick contacts. Mild abdominal pain. Increased tiredness, feels confused. Lives by self. Related Data Home Medications ?Medication ?Instructions ?Recorded ?Confirmed ?Last Taken ?Type docusate sodium 100 mg capsule 100 mg PO DAILY 11/02/19 03/11/25 02/08/25 History (Colace) sertraline 100 mg tablet (Zoloft) 100 mg PO DAILY 11/02/19 03/11/25 02/08/25 History zolpidem 10 mg tablet 10 mg PO QPM PRN Insomnia 11/02/19 03/11/25 02/08/25 History prazosin 2 mg capsule (Minipress) 2 mg PO HS 07/03/20 03/11/25 02/08/25 History coenzyme Q10 100 mg capsule (Co 100 mg PO DAILY 10/03/21 03/11/25 02/08/25 History Q-10) trazodone 50 mg tablet 50 mg PO HS 05/21/22 03/11/25 02/08/25 History Humalog KwikPen Insulin See Protocol subcut TIDWMEAL 03/22/23 03/11/25 02/08/25 History atorvastatin 10 mg tablet 20 mg PO QHS 04/02/23 03/11/25 02/08/25 History sumatriptan succinate 6 mg/0.5 mL 6 mg subcut ONCE PRN Migraine 08/01/23 03/11/25 01/19/25 History subcutaneous pen injector Headache alprazolam 0.5 mg tablet 0.5 mg PO TID 09/10/23 03/11/25 02/08/25 History blood-glucose sensor (FreeStyle #1 ea 05/13/24 03/11/25 Unknown History Sharita 3 Sensor device) glucagon 3 mg/actuation nasal 3 mg intranasal PRN PRN 05/13/24 03/11/25 01/19/25 History spray (Baqsimi) Hypoglycemia insulin glargine 100 unit/mL (3 38 unit subcut BID 05/13/24 03/11/25 02/08/25 History mL) subcutaneous pen (Lantus Solostar U-100 Insulin) pen needle, diabetic 32 gauge x #1,200 ea 05/13/24 03/11/25 Unknown History (BD Mer 2nd Gen Pen Needle) pioglitazone 15 mg tablet 15 mg PO DAILY 05/13/24 03/11/25 02/08/25 History cholecalciferol (vitamin D3) 1,250 1,250 mcg PO WEEKLY 06/02/24 03/11/25 02/07/25 History mcg (50,000 unit) tablet prochlorperazine maleate 10 mg 20 mg PO Q4-6H PRN Nausea 06/02/24 03/11/25 01/19/25 History tablet cholecalciferol (vitamin D3) 125 125 mcg PO DAILY 08/20/24 03/11/25 02/08/25 History mcg (5,000 unit) tablet zinc citrate 11 mg chewable tablet 11 mg PO DAILY 08/20/24 03/11/25 02/08/25 History carvedilol 6.25 mg tablet 6.25 mg PO Q12H 02/09/25 03/11/25 02/08/25 History chlorthalidone 25 mg tablet 25 mg PO DAILY 02/09/25 03/11/25 02/08/25 History pantoprazole 40 mg tablet,delayed 40 mg PO DAILY Nausea 02/09/25 03/11/25 02/08/25 History release Allergies Allergy/AdvReac Type Severity Reaction Status Date / Time hydralazine Allergy Severe Itching Verified 03/10/25 14:46 latex Allergy Severe itching Verified 03/10/25 14:46 metoclopramide Allergy Severe Redness of Verified 03/10/25 14:46 Skin PMFSH Past Medical History Medical History History of diabetic ketoacidosis CKD (chronic kidney disease) PTSD (post-traumatic stress disorder) Generalized anxiety disorder Acute electrocardiogram changes Abnormal chest x-ray Nonalcoholic steatohepatitis Nephrotic syndrome Chronic lumbar pain Morbid obesity due to excess calories Migraine headache without aura 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 Gastroparesis Irritable bowel syndrome with constipation Cyclic vomiting syndrome Insulin dependent diabetes mellitus Hyperlipidemia Hypertension Gastroesophageal reflux disease Vitamin B 12 deficiency Anxiety Depression Hypothyroidism Fibromyalgia Rheumatoid arthritis Endometriosis Herpes Uterine fibroid Peptic ulcer Bronchitis Surgical History Surgical History History of cholecystectomy History of detached retina repair History of partial knee replacement History of hysterectomy History of laparoscopy Removal of uterine fibroids Family History Family History Mother Diabetes mellitus Hypertension Family history of elevated blood lipids Sibling Family history of obesity Patient's sister is in good health Father Hypertension Family history of cardiovascular disease Other Acute myocardial infarction Family history of arthritis Family history of heart disease in male family member before age 55 Family history of thyroid disease Social History Social History Social History: Lives alone in [place]. with no children. No alcohol, tobacco, illicit substance abuse. Surrogate decision maker: Susan Mariano, sister. Code status: Full code. Caffeine-daily Smoking status: Never smoker Alcohol intake: never Drinks per week: 1 Alcohol use details: rarely Substance use: never Substance use type: does not use Do You Feel Safe in your Home?: Yes Lack of Transportation: No Lack of Food: Never True Current Housing: I Have Housing Concerned About Future Housing: No Difficulty Paying Gas/Electric Bills: No Difficulty Paying for Meds: No Currently Unemployed: No Education: Associate Degree Difficulty w/ Childcare or Family Care: No Living arrangements: alone Spiritual care concerns: No Exam 2 Narrative: GENERAL: well-nourished, and in no acute distress. HEAD: Normocephalic, atraumatic. EYES: Non icteric. R eye closed but can open it, cloudy. ENT: Nares clear, no rhinorrhea or epistaxis. Gross auditory acuity intact. Tacky mucous membranes. NECK: Supple. No meningismus. CHEST: Speaking in full sentences. No respiratory distress. HEART: Regular rate and rhythm. . ABDOMEN: Obese but Soft, nondistended. No rigidity or guarding. Not peritoneal EXTREMITIES: Normal range of motion. No lower extremity edema. SKIN: Warm, dry, no rash. NEURO: No focal deficits. Alert and oriented. Answering questions. Following commands. Normal speech without aphasia or dysarthria. PSYCH: Normal mood and affect. Course Vital Signs Vital signs: Vital Signs Temperature 97.4 F L 03/08/25 22:50 Pulse Rate 97 03/08/25 22:50 Respiratory Rate 14 03/08/25 22:50 Blood Pressure 145/79 H 03/08/25 22:50 Pulse Oximetry 98 03/08/25 22:50 Oxygen Delivery Room Air 03/08/25 22:50 Temperature 97.4 F L 03/08/25 22:50 Pulse Rate 86 03/09/25 06:00 Respiratory Rate 14 03/09/25 06:00 Blood Pressure 158/85 H 03/09/25 06:00 Pulse Oximetry 95 03/09/25 06:00 Oxygen Delivery Room Air 03/08/25 22:50 MDM - Recheck/Abnormal Lab/Rx MDM Narrative Medical decision making narrative: Patient with T1DM presents with concern for DKA. Blood sugars have been high at home, in the 400s-500s. History of DKA previously due to insulin pump failure. No longer has insulin pump but on a short acting and long acting insulin regimen. In the emergency department she is afebrile with acceptable vital signs, mild hypertension. POC glucose 436mg/dL. Beta hydroxybutyrate normal. Mild leukocytosis. Hyperglycemia is without anion gap acidosis. Mild hypokalemia. Oral repletion ordered. Patient's recent creatinine has been in this range most recently, consistent with CKD. Glucosuria and proteinuria. Patient is reassessed at 3:15 a.m.. She reports she continues to have abdominal pain. She is also having anxiety. I discussed that she is not in DKA but she does state that she feels like she needs insulin because she has a fruity taste in her mouth. Repeat POC glucose. With combination of abdominal pain and anxiety, will give Haldol at this time. Will also proceed with noncontrast CT abdomen pelvis imaging. POC glucose 229. 12U short acting Insulin ordered. CT with small pericardial effusion but all complaints are abdominal and otherwise hemodynamically stable. Discharged home with Rx for Bentyl and Zofran. Advised she keep her upcoming apointments with endocrinology and nephrology, return precautions as well. Differential Diagnosis Differential diagnosis: Likely other (hyperglycemia; DKA; HHS; electrolyte abnormalities; acute viral syndrome) Medical Records Attestation: I reviewed the patient's medical records. Medical records narrative: Recent nephrology note reviewed : Her creatinine had been fluctuating ~ 1.0 - 2.0mg/dl but seems a bit worse with creatinine running 2.0 - 2.5mg/dl associated severe nephrotic range proteinuria -- I suspect this represent progression of her kidney disease. Her creatinine is higher now due to her LUKE/ARF on recent hospitalization... Lab Data Attestation: I reviewed the patient's lab results. 03/08/25 23:13 03/08/25 23:57 Labs: Lab Results 03/08/25 03/08/25 03/08/25 Range/Units 22:53 23:13 23:49 WBC 11.2 H (4.5-10.0) K/mm3 RBC 4.40 (4.2-5.4) M/mm3 Hgb 12.7 (12.0-15.0) g/dL Hct 38.7 (37.0-47.0) % MCV 88.0 (80-100) fl MCH 28.9 (26-34) pg MCHC 32.8 (32-36) g/dl RDW 12.8 (11.5-14.5) % Plt Count 239 (150-375) k/mm3 MPV 10.8 H (7.4-10.4) fl Immature Gran % (Auto) 0.5 (0-0.5) % Neut % (Auto) 70.8 (45.5-73.1) % Lymph % (Auto) 20.5 (18.3-44.2) % Stearns % (Auto) 5.7 (2.6-8.5) % Eos % (Auto) 2.1 (0-4.4) % Baso % (Auto) 0.4 (0.2-1.2) % Lymph # (Auto) 2.29 (0.9-3.2) K/mm3 Stearns # (Auto) 0.6 (0.1-0.6) K/mm3 Eos # (Auto) 0.2 (0-0.3) K/mm3 Baso # (Auto) 0.0 (0.0-0.1) K/mm3 Abs Immat Gran (auto) 0.06 H (0.00-0.031) K/mm3 Absolute Neuts (auto) 7.9 H (1.3-6.7) K/mm3 Absolute Nucleated RBC 0.000 (0.0-0.012) K/mm3 Nucleated RBC % 0.0 (0.0-0.2) % Sodium (137-145) mmol/L Potassium (3.4-5.0) mmol/L Chloride (98-107) mmol/L Carbon Dioxide (22-30) mmol/L Anion Gap (4-12) mmol/L BUN (7-17) mg/dL Creatinine (0.7-1.0) mg/dL Estim Creat Clear Calc ml/min Estimated GFR (59 - ) Glucose (65-110) mg/dL POC Capillary Glucose 315 H (65-105) mg/dl Calcium (8.4-10.2) mg/dL Phosphorus (2.5-4.5) mg/dL Magnesium (1.6-2.3) mg/dL Total Bilirubin (0.2-1.3) mg/dL AST (14-36) U/L ALT (6-35) U/L Alkaline Phosphatase (38-126) U/L Total Protein (6.3-8.2) g/dL Albumin (3.5-5.1) g/dL Beta-Hydroxybutyrate/Acetoacetate 0.09 (0.02-0.27) mmol/L Urine Color (Yellow) Urine Appearance (Clear) Urine pH (5.0-9.0) Ur Specific Jackson (1.001-1.035) Urine Protein (Negative) mg/dL Urine Glucose (UA) (Negative) mg/dL Urine Ketones (Negative) mg/dL Ur Blood (Man) (Negative) Urine Nitrate (Negative) Urine Bilirubin (Negative) Urine Urobilinogen (<2.0) mg/dL Add Ur Microanalysis Leukocyte Esterase Rfl (Negative) LETY/UL Urine RBC (0-2) /hpf Urine WBC (0-3) /hpf Ur Squamous Epith Cells (Few) /hpf Urine Bacteria /hpf Urine Casts POC Urine HCG, Qual (Negative) Influenza A (RT-PCR) Negative (Negative) Influenza B (RT-PCR) Negative (Negative) RSV (RT-PCR) Negative (Negative) SARS-CoV-2 RNA (RT-PCR) Negative (Negative) 03/08/25 03/09/25 03/09/25 Range/Units 23:57 00:29 00:36 WBC (4.5-10.0) K/mm3 RBC (4.2-5.4) M/mm3 Hgb (12.0-15.0) g/dL Hct (37.0-47.0) % MCV (80-100) fl MCH (26-34) pg MCHC (32-36) g/dl RDW (11.5-14.5) % Plt Count (150-375) k/mm3 MPV (7.4-10.4) fl Immature Gran % (Auto) (0-0.5) % Neut % (Auto) (45.5-73.1) % Lymph % (Auto) (18.3-44.2) % Stearns % (Auto) (2.6-8.5) % Eos % (Auto) (0-4.4) % Baso % (Auto) (0.2-1.2) % Lymph # (Auto) (0.9-3.2) K/mm3 Stearns # (Auto) (0.1-0.6) K/mm3 Eos # (Auto) (0-0.3) K/mm3 Baso # (Auto) (0.0-0.1) K/mm3 Abs Immat Gran (auto) (0.00-0.031) K/mm3 Absolute Neuts (auto) (1.3-6.7) K/mm3 Absolute Nucleated RBC (0.0-0.012) K/mm3 Nucleated RBC % (0.0-0.2) % Sodium 134 L (137-145) mmol/L Potassium 3.3 L (3.4-5.0) mmol/L Chloride 99 (98-107) mmol/L Carbon Dioxide 23 (22-30) mmol/L Anion Gap 12 (4-12) mmol/L BUN 50 H (7-17) mg/dL Creatinine 3.24 H (0.7-1.0) mg/dL Estim Creat Clear Calc 26 ml/min Estimated GFR 15 L (59 - ) Glucose 319 H (65-110) mg/dL POC Capillary Glucose (65-105) mg/dl Calcium 10.5 H (8.4-10.2) mg/dL Phosphorus 3.8 (2.5-4.5) mg/dL Magnesium 1.9 (1.6-2.3) mg/dL Total Bilirubin 0.4 (0.2-1.3) mg/dL AST 28 (14-36) U/L ALT 21 (6-35) U/L Alkaline Phosphatase 116 (38-126) U/L Total Protein 7.0 (6.3-8.2) g/dL Albumin 3.9 (3.5-5.1) g/dL Beta-Hydroxybutyrate/Acetoacetate (0.02-0.27) mmol/L Urine Color Yellow (Yellow) Urine Appearance Clear (Clear) Urine pH 5.5 (5.0-9.0) Ur Specific Jackson 1.019 (1.001-1.035) Urine Protein 3+ H (Negative) mg/dL Urine Glucose (UA) 3+ H (Negative) mg/dL Urine Ketones Negative (Negative) mg/dL Ur Blood (Man) Negative (Negative) Urine Nitrate Negative (Negative) Urine Bilirubin Negative (Negative) Urine Urobilinogen 0.2 (<2.0) mg/dL Add Ur Microanalysis Reviewed Leukocyte Esterase Rfl Negative (Negative) LETY/UL Urine RBC 6-10 H (0-2) /hpf Urine WBC 0-5 (0-3) /hpf Ur Squamous Epith Cells Few (Few) /hpf Urine Bacteria 1+ H /hpf Urine Casts 3-5 POC Urine HCG, Qual Negative (Negative) Influenza A (RT-PCR) (Negative) Influenza B (RT-PCR) (Negative) RSV (RT-PCR) (Negative) SARS-CoV-2 RNA (RT-PCR) (Negative) 03/09/25 03/09/25 Range/Units 03:26 04:43 WBC (4.5-10.0) K/mm3 RBC (4.2-5.4) M/mm3 Hgb (12.0-15.0) g/dL Hct (37.0-47.0) % MCV (80-100) fl MCH (26-34) pg MCHC (32-36) g/dl RDW (11.5-14.5) % Plt Count (150-375) k/mm3 MPV (7.4-10.4) fl Immature Gran % (Auto) (0-0.5) % Neut % (Auto) (45.5-73.1) % Lymph % (Auto) (18.3-44.2) % Stearns % (Auto) (2.6-8.5) % Eos % (Auto) (0-4.4) % Baso % (Auto) (0.2-1.2) % Lymph # (Auto) (0.9-3.2) K/mm3 Stearns # (Auto) (0.1-0.6) K/mm3 Eos # (Auto) (0-0.3) K/mm3 Baso # (Auto) (0.0-0.1) K/mm3 Abs Immat Gran (auto) (0.00-0.031) K/mm3 Absolute Neuts (auto) (1.3-6.7) K/mm3 Absolute Nucleated RBC (0.0-0.012) K/mm3 Nucleated RBC % (0.0-0.2) % Sodium (137-145) mmol/L Potassium (3.4-5.0) mmol/L Chloride (98-107) mmol/L Carbon Dioxide (22-30) mmol/L Anion Gap (4-12) mmol/L BUN (7-17) mg/dL Creatinine (0.7-1.0) mg/dL Estim Creat Clear Calc ml/min Estimated GFR (59 - ) Glucose (65-110) mg/dL POC Capillary Glucose 229 H 235 H (65-105) mg/dl Calcium (8.4-10.2) mg/dL Phosphorus (2.5-4.5) mg/dL Magnesium (1.6-2.3) mg/dL Total Bilirubin (0.2-1.3) mg/dL AST (14-36) U/L ALT (6-35) U/L Alkaline Phosphatase (38-126) U/L Total Protein (6.3-8.2) g/dL Albumin (3.5-5.1) g/dL Beta-Hydroxybutyrate/Acetoacetate (0.02-0.27) mmol/L Urine Color (Yellow) Urine Appearance (Clear) Urine pH (5.0-9.0) Ur Specific Jackson (1.001-1.035) Urine Protein (Negative) mg/dL Urine Glucose (UA) (Negative) mg/dL Urine Ketones (Negative) mg/dL Ur Blood (Man) (Negative) Urine Nitrate (Negative) Urine Bilirubin (Negative) Urine Urobilinogen (<2.0) mg/dL Add Ur Microanalysis Leukocyte Esterase Rfl (Negative) LETY/UL Urine RBC (0-2) /hpf Urine WBC (0-3) /hpf Ur Squamous Epith Cells (Few) /hpf Urine Bacteria /hpf Urine Casts POC Urine HCG, Qual (Negative) Influenza A (RT-PCR) (Negative) Influenza B (RT-PCR) (Negative) RSV (RT-PCR) (Negative) SARS-CoV-2 RNA (RT-PCR) (Negative) Imaging Data Radiologist's impression: Impression: Small pericardial effusion. No other significant findings. Discharge Plan Discharge Clinical Impression: Hyperglycemia due to diabetes mellitus, CKD (chronic kidney disease) stage 4, GFR 15-29 ml/min, Glucosuria, Pericardial effusion Patient Disposition: Home Condition: Stable Instructions: Antibiotic Form, Chronic Kidney Disease (ED), Chronic Kidney Disease Diet (DC), Pericardial Effusion (ED), Diabetic Hyperglycemia (ED), Diabetic Kidney Disease (ED) Additional Instructions: You or having hyperglycemia but without an anion gap acidosis thus you are not in DKA. You received IV fluids and insulin but otherwise recommend continuing to take her insulin as prescribed. Your kidney function is poor but chronically so. Keep your follow-up appointments and outpatient labs and follow the other guidelines given to you by your pension consultant. You can take the prescribed medications as needed. Return to the emergency department any new, worsening, unmanaged symptoms Patient Language: Slovenian Prescriptions: New dicyclomine 10 mg capsule 20 mg PO BID PRN (Reason: abdominal pain) Qty: 20 0RF ondansetron 4 mg tablet,disintegrating 4 mg PO Q8H PRN (Reason: nausea and vomiting) Qty: 7 0RF No Action insulin glargine [Lantus Solostar U-100 Insulin] 100 unit/mL (3 mL) insulin pen 38 unit subcut BID (DME) pen needle, diabetic [BD Mer 2nd Gen Pen Needle] 32 gauge x 5/32 needle See Rx Instructions .ROUTE .MEDSUPPLY Qty: 1200 Rx Instructions: As directed pioglitazone 15 mg tablet 15 mg PO DAILY Baqsimi 3 mg/actuation spray,non-aerosol 3 mg intranasal PRN PRN (Reason: Hypoglycemia) (DME) FreeStyle Sharita 3 Sensor Device See Rx Instructions .ROUTE .MEDSUPPLY Qty: 1 Rx Instructions: As directed sucralfate 1 gram tablet 1 g PO .qid with meals Qty: 120 1RF docusate sodium [Colace] 100 mg capsule 100 mg PO DAILY sertraline [Zoloft] 100 mg tablet 100 mg PO DAILY zolpidem 10 mg tablet 10 mg PO QPM PRN (Reason: Insomnia) atorvastatin 10 mg tablet 20 mg PO QHS alprazolam 0.5 mg tablet 0.5 mg PO TID spironolactone 25 mg tablet 25 mg PO DAILY Qty: 30 11RF bumetanide 1 mg tablet 1 mg PO BID Qty: 60 6RF zinc citrate 11 mg tablet,chewable 11 mg PO DAILY cholecalciferol (vitamin D3) 125 mcg (5,000 unit) tablet 125 mcg PO DAILY acyclovir 400 mg tablet 400 mg PO BID Qty: 180 3RF Trulance 3 mg tablet 3 mg PO DAILY 30 Days Qty: 30 3RF tenapanor 50 mg tablet 50 mg tablet 0RF Humalog KwikPen Insulin See Protocol subcut TIDWMEAL Protocol: Insulin Corrective High-Dose Condition: glucose < 70 mg/dl Dose/Route: Follow hypoglycemia order Condition: glucose 70-200 mg/dl Dose/Route: No additional insulin Condition: glucose 201-250 mg/dl Dose/Route: 4 units sub-Q Condition: glucose 251-300 mg/dl Dose/Route: 5 units sub-Q Condition: glucose 301-350 mg/dl Dose/Route: 6 units sub-Q Condition: glucose 351-400 mg/dl Dose/Route: 8 units sub-Q Condition: glucose > 400 mg/dl Dose/Route: Call Protocol Text: *No Correction Dose at Bedtime* Rx Instructions: Uses sliding scale for blood glucose greater than 150 ondansetron 4 mg tablet,disintegrating 4 mg PO Q8H PRN (Reason: nausea and vomiting) Qty: 10 0RF prochlorperazine maleate 10 mg tablet 20 mg PO Q4-6H PRN (Reason: Nausea) cholecalciferol (vitamin D3) 1,250 mcg (50,000 unit) tablet 1,250 mcg PO WEEKLY carvedilol 6.25 mg tablet 6.25 mg PO Q12H chlorthalidone 25 mg tablet 25 mg PO DAILY pantoprazole 40 mg tablet,delayed release (DR/EC) 40 mg PO DAILY dicyclomine 10 mg capsule 10 mg PO QID PRN (Reason: abdominal pain) Qty: 30 0RF metronidazole 500 mg tablet 500 mg PO Q8H Qty: 4 0RF prazosin [Minipress] 2 mg Capsule 2 mg PO HS trazodone 50 mg Tablet 50 mg PO HS sumatriptan succinate 6 mg/0.5 mL pen injector 6 mg subcut ONCE PRN (Reason: Migraine Headache) Rx Instructions: may repeat dose once in 1 hour if not relieved coenzyme Q10 [Co Q-10] 100 mg capsule 100 mg PO DAILY amitriptyline 25 mg tablet 50 mg PO HS Qty: 180 1RF amlodipine 5 mg tablet See Rx Instructions .ROUTE .COMPLEX Qty: 90 1RF Dose Instruction: TAKE 1 TABLET BY MOUTH DAILY Rx Instructions: TAKE 1 TABLET BY MOUTH DAILY topiramate [Topamax] 25 mg capsule, sprinkle 50 mg PO BID Qty: 360 1RF Rx Instructions: titrate up to 50mg bid as directed Follow-up/Referrals: Jamaal Ibarra DO [Primary Care Provider] - Stand Alone Forms: Work/School Release IP Time of Disposition: 05:54
[2025-03-08] MEDS: SODIUM CHLORIDE 0.9% IV 1,000 ML 999 ML IV CONT (23:55)
[2025-03-09] LABS: Beta-Hydroxybutyrate/Acetoacetate 0.09 mmol/L (0.02-0.27)
[2025-03-09 00:12] VITALS: BP 158/84; PULSE 87; RESP 15; O2SAT 98
[2025-03-09] MEDS: MORPHINE SULFATE (*CRX) 4 MG/ML INJ IV PUSH (00:30)
[2025-03-09 00:39] LABS: BEDSIDEPREGUCG Negative (Negative)
[2025-03-09 00:58] LABS: Influenza A QL RT-PCR Negative (Negative); Influenza B QL RT-PCR Negative (Negative); RSV RNA, RT-PCR Negative (Negative); SARS-CoV-2 RNA PCR Negative (Negative)
[2025-03-09 01:19] LABS: Alanine Aminotransferase 21 U/L (6-35); Albumin Level 3.9 g/dL (3.5-5.1); Alkaline Phosphatase 116 U/L (38-126); Anion Gap 12 mmol/L (4-12); Aspartate Amino Transferase 28 U/L (14-36); Bilirubin,Total 0.4 mg/dL (0.2-1.3); Blood Urea Nitrogen 50 mg/dL (7-17); Calcium 10.5 mg/dL (8.4-10.2); Carbon Dioxide 23 mmol/L (22-30); Chloride 99 mmol/L (98-107); Estimated CRCL calculation 26 ml/min; Estimated Glomerular Filt Rate 15; Glucose 319 mg/dL (65-110); Magnesium 1.9 mg/dL (1.6-2.3); Phosphorus 3.8 mg/dL (2.5-4.5); Potassium 3.3 mmol/L (3.4-5.0); Sodium 134 mmol/L (137-145)
[2025-03-09 02:02] LABS: Add Urine Microscopic? YES; Appearance Urine Clear (Clear); Bacteria Urine 1+ /hpf; Bilirubin Urine Negative (Negative); Blood Urine Negative (Negative); Color Urine Yellow (Yellow); Glucose Urine UA 3+ mg/dL (Negative); Ketones Urine Negative (Negative); Leukocyte Esterase Ur Negative LEU/UL (Negative); Need Manual Microscopic Reviewed; Nitrate Urine Negative (Negative); Protein Urine 3+ mg/dL (Negative); Specific Grav Ur 1.019 (1.001-1.035); Squamous Epithelial Cell Urine Few /hpf (Few); Urobilinogen Urine 0.2 mg/dL (<2.0); WBC Urine 0-5 /hpf (0-3); pH Urine 5.5 (5.0-9.0)
[2025-03-09 02:22] VITALS: BP 149/80; PULSE 88; RESP 20; O2SAT 95
[2025-03-09] MEDS: POTASSIUM BICARBONATE 25 MEQ TABEF PO (03:21)
[2025-03-09] MEDS: HALOPERIDOL LACTATE 5 MG/ML VIAL 2.5 MG IV PUSH (03:26)
[2025-03-09 03:32] LABS: Glucose Point of Care 229 mg/dl (65-105)
[2025-03-09] MEDS: INSULIN ASPART (*BKC) 100 UNITS/ML 12 UNITS SUB-Q (03:47)
[2025-03-09 04:15] VITALS: BP 161/81; PULSE 89; RESP 16; O2SAT 97
[2025-03-09 04:47] LABS: Glucose Point of Care 235 mg/dl (65-105)
[2025-03-09 05:15] VITALS: BP 158/89; PULSE 88; RESP 16; O2SAT 96
[2025-03-09 06:00] VITALS: BP 158/85; PULSE 86; RESP 14; O2SAT 95
[2025-03-09] MEDS: DICYCLOMINE HCL 10 MG CAPSULE 20 MG PO (06:16)
== END 2025-03-09 06:27 | disposition home or self-care (01) ==
PROVIDERS: Emergency Medicine; Emergency Provider Student in an Organized Health Care Education/Training Program; PCP Internal Medicine
DX: E11.65 Type 2 diabetes mellitus with hyperglycemia (principal); Z79.4 Long term (current) use of insulin; I31.39 Other pericardial effusion (noninflammatory); Z20.822 Contact with and (suspected) exposure to COVID-19; I12.9 Hypertensive chronic kidney disease with stage 1 through stage 4 chronic kidney disease, or unspecified chronic kidney disease; E11.22 Type 2 diabetes mellitus with diabetic chronic kidney disease; N18.4 Chronic kidney disease, stage 4 (severe); F41.9 Anxiety disorder, unspecified; E78.5 Hyperlipidemia, unspecified; F32.A Depression, unspecified; E03.9 Hypothyroidism, unspecified; M79.7 Fibromyalgia; M06.9 Rheumatoid arthritis, unspecified
CPT/HCPCS: 36415; 74176; 80053; 81001; 81025; 82010; 82948; 83735; 84100; 85025; 87637; 96361; 96374; 96375; 99284; A9270; J1630; J1815; J2270; J7030

== ENCOUNTER 2025-03-22 15:31 | Outpatient (CLI) | payer OTHER, SELFPAY ==
--- OUTSIDE RECORDS SUMMARY | 2025-03-22 16:40 | XMS_ITS | Clinical Summary ---
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8 K/uL 02/01/2025 9:40 AM CDT [email or web address] LABORATORY SERVICES [facility] RBC 3.61(L) 3.90 - 4.90 M/uL 02/01/2025 9:40 AM CDT [email or web address] LABORATORY SERVICES [facility] HEMOGLOBIN 10.4(L) 11.8 - 14.8 g/dL 02/01/2025 9:40 AM CDT [email or web address] LABORATORY SERVICES [facility] HEMATOCRIT 33.5(L) 35.5 - 44.0 % 02/01/2025 9:40 AM CDT [email or web address]ORATORY SERVICES [facility] MCV 92.8 82.0 - 99.0 fL 02/01/2025 9:40 AM CDT [email or web address] LABORATORY SERVICES [facility] MCH 28.8 27.2 - 32.6 pg 02/01/2025 9:40 AM CDT [email or web address] LABORATORY SERVICES [facility] MCHC 31.0(L) 31.5 - 35.5 g/dL 02/01/2025 9:40 AM CDT [email or web address] LABORATORY SERVICES [facility] RDW 13.0 11.5 - 14.5 % 02/01/2025 9:40 AM CDT [email or web address] LABORATORY SERVICES - [facility] RDW-STDEV 43.9 37.1 - 48.7 fL 02/01/2025 9:40 AM CDT [email or web address] LABORATORY SERVICES - [facility] PLATELETS 278 140 - 350 K/uL 02/01/2025 9:40 AM CDT [email or web address] LABORATORY SERVICES - [facility] MPV 9.6 9.3 - 12.4 fL 02/01/2025 9:40 AM CDT [email or web address] LABORATORY SERVICES - . [facility] NEUTROPHILS 76 % 02/01/2025 9:40 AM CDT [email or web address] LABORATORY SERVICES - . [facility] LYMPHOCYTES 15 % 02/01/2025 9:40 AM CDT [email or web address] LABORATORY SERVICES - . [facility] MONOCYTES 5 % 02/01/2025 9:40 AM CDT [email or web address] LABORATORY SERVICES - . [facility] EOSINOPHILS 3 % 02/01/2025 9:40 AM CDT [email or web address] LABORATORY SERVICES - . [facility] BASOPHILS 1 % 02/01/2025 9:40 AM [email or web address] LABORATORY SERVICES - . [facility] IMMATURE GRANULOCYTES 1 % 02/01/2025 9:40 AM [email or web address] LABORATORY SERVICES - . [facility] Comment:IG (Immature Granulo cyte) count includes Metamyelocytes, Myelocytes, and Promyelocytes NEUTROPHIL ABSOLUTE 6.69 1.90 - 7.00 K/uL 02/01/2025 9:40 AM CDT [email or web address] LABORATORY SERVICES - . [facility] LYMPHOCYTE ABSOLUTE 1.36 0.70 - 4.50 K/uL 02/01/2025 9:40 AM CDT [email or web address] LABORATORY SERVICES - . [facility] MONOCYTE ABSOLUTE 0.44 0.10 - 1.30 K/uL 02/01/2025 9:40 AM [employer] LABORATORY SERVICES - . [facility] EOSINOPHIL ABSOLUTE 0.23 0.00 - 0.70 K/uL 02/01/2025 9:40 AM [email or web address] LABORATORY SERVICES - . [facility] BASOPHILS ABSOLUTE 0.05 0.00 - 0.20 K/uL 02/01/2025 9:40 AM [employer] LABORATORY SERVICES - . [facility] IMMATURE GRANULOCYTES ABSOLUTE 0.09(H) 0.00 - 0.03 K/uL 02/01/2025 9:40 AM [employer] LABORATORY SERVICES - [facility] Blood Venipuncture / Unknown 02/01/2025 8:41 AM CDT 02/01/2025 9:19 AM CDT Lee Ann Berman MD HEMATOLOGY ORDERABLES Final Re sult Performing Organization Address [facility]/ZIP Co de Phone Number [facility] [email or web address] [facility] CLIA# [id number] [address] [place] [address] * (ABNORMAL) C-REACTIVE PROTEIN (02/01/2025 8:41 AM CDT) Only the most recent of2 resultswithin the time period is included. CRP 19.8(H) <5.0 mg/L 02/01/2025 12:44 PM T [facility] Blood Venipuncture / Unknown 02/01/2025 8:41 AM CDT 02/01/2025 9:19 AM CDT Lee Ann Berman MD CHEMISTRY ORDERABLES Final Res ult Performing Organization Address [facility] Co de Phone Number [facility] [email or web address] [facility] CLIA# [id number] [address] [place] [address] * (ABNORMAL) BASIC METABOLIC PANEL (02/01/2025 8:41 AM CDT) Only the most recent of3 resultswithin the time period is included. SODIUM 139 136 - 145 mmol/L 02/01/2025 10:01 AM T [email or web address] LABORATORY SERVICES [facility] POTASSIUM 3.6 3.5 - 5.0 mmol/L 02/01/2025 10:01 AM T [email or web address] LABORATORY SERVICES - [facility] CHLORIDE 108(H) 98 - 107 mmol/L 02/01/2025 10:01 AM T [email or web address] LABORATORY SERVICES - . [facility] CO2 20(L) 22 - 29 mmol/L 02/01/2025 10:01 AM T [email or web address] LABORATORY SERVICES [facility]. [facility] CALCIUM 9.8 8.6 - 10.2 mg/dL 02/01/2025 10:01 AM T [email or web address] LABORATORY SERVICES - . [facility] BUN 22(H) 6 - 20 mg/dL 02/01/2025 10:01 AM [facility] CREATININE 1.90(H) 0.51 - 0.95 mg/dL 02/01/2025 10:01 AM [facility] GLUCOSE 167(H) 74 - 99 mg/dL 02/01/2025 10:01 AM [facility] GFR 32(L) >=60 mL/min/1.7 3 sq meter 02/01/2025 10:01 AM [facility] LABORATORY [facility] Comment:eGFR calculated with 2020 CKD-EPI equation. Vegetarian diet, extremely high or low muscle mass, and may affect results. Cystatin C with Glomerular Filtration Rate is a suitable alternative for these patients. ANION GAP 11 8 - 16 mmol/L 02/01/2025 10:01 AM [facility] [email or web address] [facility] Blood Venipuncture / Unknown 02/01/2025 8:41 AM CDT 02/01/2025 9:19 AM CDT us Lee Ann Berman MD CHEMISTRY ORDERABLES Final Res ult [facility] [email or web address] [facility]# [id number] [address] [place], [place] [address] [facility] [place] [address] * (ABNORMAL) URINALYSIS WITH REFLEX MICROSCOPIC (01/31/2025 11:40 AM CDT) COLOR UA Pale Yellow Pale to Dark Yellow 01/31/2025 12:14 PM [facility]ORY [facility] CLARITY UA Clear Clear 01/31/2025 12:14 PM [facility] LAB[facility]ATORY [facility] SPECIFIC GRAVITY UA 1.006 1.003 - 1.035 01/31/2025 12:14 PM [facility] [email or web address] [facility] PH UA 7.0 5.0 - 8.0 01/31/2025 12:14 PM [facility] LABORATORY [facility] LEUKOCYTE ESTERASE UA Negative Negative 01/31/2025 12:14 PM [facility] LABORATORY [facility] NITRITE UA Negative Negative 01/31/2025 12:14 PM CDT [employer] LABORATORY SERVICES - [facility] PROTEIN UA 2+(A) Negative 01/31/2025 12:14 PM CDT [employer] LABORATORY SERVICES - [facility] GLUCOSE UA Negative Negative 01/31/2025 12:14 PM CDT [employer] LABORATORY SERVICES - [facility] KETONES UA Negative Negative 01/31/2025 12:14 PM CDT [employer] LABORATORY SERVICES - [facility] UROBILINOGEN UA Normal <2.0 mg/dL 12:14 PM CDT [employer] LABORATORY SERVICES - [facility] BILIRUBIN UA Negative Negative 01/31/2025 12:14 PM CDT [email or web address] LABORATORY SERVICES - [facility] BLOOD UA Negative Negative 01/31/2025 12:14 PM CDT [employer] LABORATORY SERVICES - [facility] WBC UA 0-2 0 - 2 /hpf 01/31/2025 12:14 PM T [employer] LABORATORY SERVICES - [facility] RBC UA 0-2 0 - 2 /hpf 01/31/2025 12:14 PM CDT [email or web address] LABORATORY SERVICES - [facility] BACTERIA UA Negative Negative /hpf 01/31/2025 12:14 PM T [email or web address] LABORATORY SERVICES - [facility] EPITHELIAL CELLS, URINE 0-5 0 - 5 /hpf 01/31/2025 12:14 PM T [email or web address] LABORATORY SERVICES - [facility] Urine URINE SPECIMEN OBTAINED BY CLEAN CATCH PROCEDURE / Unknown 01/31/2025 11:40 AM CDT 01/31/2025 11:40 AM CDT Lee Ann Berman MD URINE ORDERABLES Final Result [facility] [email or web address] SERVICES - [facility] CLIA# [id number] [address] [place], [place] [id number] * (ABNORMAL) CBC WITHOUT DIFFERENTIAL (01/31/2025 9:10 AM CDT) Only the most recent of2 resultswithin the time period is included. WBC 7.6 4.0 - 9.8 K/uL 01/31/2025 9:21 AM CDT [employer] LABORATORY SERVICES - [facility] RBC 3.54(L) 3.90 - 4.90 M/uL 01/31/2025 9:21 AM CDT [facility] LABORATORY SERVICES - [facility] HEMOGLOBIN 10.3(L) 11.8 - 14.8 g/dL 01/31/2025 9:21 AM T [facility] LABORATORY SERVICES - [facility] HEMATOCRIT 32.6(L) 35.5 - 44.0 % 01/31/2025 9:21 AM T [facility] LABORATORY SERVICES - [facility] MCV 92.1 82.0 - 99.0 fL 01/31/2025 9:21 AM CDT [facility] LABORATORY SERVICES - [facility] MCH 29.1 27.2 - 32.6 pg 01/31/2025 9:21 AM CDT [facility] LABORATORY SERVICES - [facility] MCHC 31.6 31.5 - 35.5 g/dL 01/31/2025 9:21 AM T [facility] LABORATORY SERVICES - [facility] PLATELETS 247 140 - 350 K/uL 01/31/2025 9:21 AM T [facility] LABORATORY SERVICES - [facility] MPV 9.7 9.3 - 12.4 fL 01/31/2025 9:21 AM T [facility] LABORATORY SERVICES - [facility] RDW 12.9 11.5 - 14.5 % 01/31/2025 9:21 AM T [facility] LABORATORY SERVICES - [facility] RDW-STDEV 43.7 37.1 - 48.7 fL 01/31/2025 9:21 AM T [facility] LABORATORY SERVICES - [facility] Blood Venipuncture / Unknown 01/31/2025 9:10 AM CDT 01/31/2025 9:14 AM CDT us Parris Summers MD HEMATOLOGY ORDERABLES Final Result [facility] SERVICES - [facility]# [id number] [address] [facility] [address] [place] [address] * MAGNESIUM LEVEL (01/31/2025 9:10 AM CDT) Only the most recent of2 resultswithin the time period is included. MAGNESIUM 1.8 1.6 - 2.6 mg/dL 01/31/2025 12:30 PM CDT [facility] LAB[facility]ATORY [facility] Blood Venipuncture / Unknown 01/31/2025 9:10 AM CDT 01/31/2025 9:14 AM CDT us Lee Ann Berman MD CHEMISTRY ORDERABLES Final Res ult [facility] [email or web address] [facility] CLIA# [id number] [address] [place] [address] [place] [id number] * US VENOUS DOPPLER LEG BILATERAL (01/30/2025 1:52 PM CDT) Anatomical Region Laterality Modality Lower Extremity Ultrasound 01/30/2025 1:32 PM CDT Narrative 01/31/2025 7:55 AM CDT [address] [address] [email or web address] Venous Exam Complete Lower Extremity Duplex Patient: Jennifer Londono Study ID: [id number] Gender: F : 1975 Age: 49 Race: CAU Height Study Date: 01/30/2025 Weight: Access. #: [id number] *Referring Physician:* Parris Summers Aaron A *Ordering Physician:* Parris Summers *Roofing Supervisor:* Lorrie Mendenhall Indications: R/O DVT perordering provider. [...] mm Prepared and Electronically Authenticated Nii Dawkins [id number] Procedure Note Nii Dawkins MD - 01/31/[address] [address] [email or web address] Venous Exam Complete Lower Extremity Duplex Patient: Jennifer Londono Study ID:[id number] Gender: F :1975 Age: 49 Race: CAU Height Study Date:01/30/2025 Weight: Access. #:[id number] *Referring Physician:Parris Li Aaron A *Ordering Physician:Parris LiRoofing Supervisor:Lorrie Giraldo Indications: R/O DVT perordering provider. History: [...] mm Prepared and Electronically Authenticated Nii Dawkins [id number] Parris Summers MD US ORDERABLES Final Result * UREA NITROGEN/CREATININE RATIO, URINE (01/30/2025 9:53 AM CDT) UREA NITROGEN, URINE 429 mg/dL 01/30/2025 10:49 AM CDT [facility] Comment:Reference range not established CREATININE, URINE 60.4 29.0 - 226.0 mg/dL 01/30/2025 10:49 AM CDT [facility] Comment:Reference Range vari es with fluid intake and diet. UREA/CREAT RATIO, UR 7.1 Reference Range not established mg/mg Creatinine 01/30/2025 10:49 AM CDT [facility] Urine URINE SPECIMEN OBTAINED BY CLEAN CATCH PROCEDURE / Unknown Collection / Unknown 01/30/2025 9:53 AM CDT 01/30/2025 10:04 AM CDT Parris Summers MD URINE ORDERABLES Final Resul t [facility] CLIA# [id number] [address] [place] [address] * SODIUM, RANDOM URINE (01/30/2025 9:53 AM CDT) SODIUM, URINE 32 mmol/L 01/30/2025 10:40 AM CDT [facility] [email or web address] [facility] Comment:Reference range not established Urine URINE SPECIMEN OBTAINED BY CLEAN CATCH PROCEDURE / Unknown Collection / Unknown 01/30/2025 9:53 AM CDT 01/30/2025 10:04 AM CDT Parris Summers MD URINE ORDERABLES Final Resul t [facility] CLIA# [id number] [address] [place] [address] * (ABNORMAL) PROTEIN/CREATININE RATIO, URINE (01/30/2025 9:53 AM CDT) PROTEIN CONCENTRATION 233(H) 0 - 20 mg/dL 01/30/2025 10:52 AM CDT [facility] CREATININE, URINE 61.1 29.0 - 226.0 mg/dL 01/30/2025 10:52 AM CDT [facility] Comment:Reference Range vari es with fluid intake and diet. PROTEIN/CREAT RATIO, URINE 3.81(H) 0.00 - 0.19 mg/mg Creatinine 01/30/2025 10:52 AM CDT [facility] Urine URINE SPECIMEN OBTAINED BY CLEAN CATCH PROCEDURE / Unknown Collection / Unknown 01/30/2025 9:53 AM CDT 01/30/2025 10:04 AM CDT Parris Summers MD URINE ORDERABLES Final Resul t Performing Organization Address [facility]/ZIP Co de Phone Number [facility]# [id number] [address] [place] [address] * OSMOLALITY, URINE (01/30/2025 9:53 AM CDT) OSMOLALITY, URINE 287 50 - 1,200 mOsm/kg 01/30/2025 10:30 AM CDT [facility] Urine URINE SPECIMEN OBTAINED BY CLEAN CATCH PROCEDURE / Unknown Collection / Unknown 01/30/2025 9:53 AM CDT 01/30/2025 10:04 AM CDT Narrative [facility] - 01/30/2025 10:30 AM CDT Reference range: 50-1200 mOsm/kg H2O, depending on fluid intake. us Parris Summers MD URINE ORDERABLES Final Resul t Performing Organization Address City/[facility]/ZIP Co de Phone Number [facility] CLIA# [id number] [address] [place] [address] * OSMOLALITY (01/29/2025 7:53 PM CDT) OSMOLALITY 300 275 - 300 mOsm/kg 01/29/2025 9:21 PM CDT [facility] [email or web address] [facility] Blood Venipuncture / Unknown 01/29/2025 7:53 PM CDT 01/29/2025 8:18 PM CDT Parris Summers MD CHEMISTRY ORDERABLES Final R esult [facility] LABORATORY [facility] CLIA# [id number] [address] [place] [address] * MRI FOOT WO CONTRAST RIGHT (01/29/2025 [...] greatest dorsally. DICTATION LOCATION: Location 2 - [facility] Narrative 01/30/2025 7:54 AM CDT MRI [...] foot greatest dorsally. DICTATION LOCATION: Location - [facility] Parris Smumers MD MR ORDERABLES Final Result * RESPIRATORY PATHOGEN PCR PANEL (01/29/2025 4:29 PM CDT) [facility] Respiratory Pathogen PCR Panel NOT DETECTED No respiratory pathogen nucleic acids detected. 01/29/2025 5:40 PM CDT [facility] COVID-19 PCR NOT DETECTED Not Detected 01/29/2025 5:40 PM CDT [facility] Upper Respiratory ENTIRE NASOPHARYNX / Unknown Collection / Unknown 01/29/2025 4:29 PM CDT 01/29/2025 4:44 PM CDT [facility] - 01/29/2025 5:40 PM CDT [...] MICROBIOLOGY - GENERAL ORDER ISIAH Final Result [facility]# [id number] [address] [place] [address] [place] [address] * GI PATHOGEN PCR PANEL (01/29/2025 4:26 PM CDT) Pathologist [facility] GI Pathogen PCR panel NOT DETECTED No nucleic acids detected. 01/29/2025 6:10 PM CDT [facility] Stool STOOL SPECIMEN / Unknown Collection / Unknown 01/29/2025 4:26 PM CDT 01/29/2025 4:37 PM CDT [facility] - 01/29/2025 6:10 PM CDT [...] MICROBIOLOGY - GENERAL ORDER ISIAH Final Result [facility] LABORATORY SERVICES [facility]# [id number] [address] [facility] [address] * XR CHEST PA AND LATERAL 2 [...] * TSH REFLEXIVE (01/29/2025 2:08 PM CDT) [facility] TSH 1.92 0.27 - 4.20 uIU/mL 01/29/2025 4:01 PM CDT [facility] LABORATORY [facility] Blood Venipuncture / Unknown 01/29/2025 2:08 PM CDT 01/29/2025 3:14 PM CDT Parris Summers MD CHEMISTRY ORDERABLES Final R esult Performing Organization Address [facility]/ZIP Co de Phone Number [facility] CLIA# [id number] [address] [place] [address] * (ABNORMAL) IRON, TIBC, AND PERCENT SATURATION (01/29/2025 2:08 PM CDT) [facility] IRON 22(L) 37 - 145 ug/dL 01/29/2025 4:01 PM CDT [facility] LABORATORY [facility] TIBC 230(L) 250 - 450 ug/dL 01/29/2025 4:01 PM CDT [facility] LABORATORY [facility] IRON % SATURATION 10(L) 15 - 50 % 01/29/2025 4:01 PM CDT [facility] LABORATORY [facility] TRANSFERRIN 181(L) 200 - 360 mg/dL 01/29/2025 4:01 PM CDT [facility] LABORATORY [facility] Blood Venipuncture / Unknown 01/29/2025 2:08 PM CDT 01/29/2025 3:14 PM CDT Parris Summers MD CHEMISTRY ORDERABLES Final R esult [facility] CLNJ# [id number] [address] [place] [address] * (ABNORMAL) SEDIMENTATION RATE (01/29/2025 2:08 PM CDT) [facility] ESR (SEDIMENTATION RATE) 76(H) <=30 mm/Hr 01/29/2025 4:00 PM CDT [employer] LABORATORY [facility] Blood Venipuncture / Unknown 01/29/2025 2:08 PM CDT 01/29/2025 3:15 PM CDT Parris Summers MD HEMATOLOGY ORDERABLES Final Result Performing Organization Address [facility] de Phone Number [facility] [email or web address] [facility]# [id number] [address] [place] [address] * (ABNORMAL) HEMOGLOBIN A1C (01/29/2025 2:08 PM CDT) HEMOGLOBIN A1C 8.4(H) <5.7 % 01/29/2025 3:35 PM CDT [employer] [facility] EST. AVG GLUCOSE, A1C 194 mg/dL 01/29/2025 3:35 PM CDT [employer] [facility] Blood Venipuncture / Unknown 01/29/2025 2:08 PM CDT 01/29/2025 3:15 PM CDT Narrative [facility] LABORATORY [facility] - 01/29/2025 3:35 PM CDT HGB A1C INTERPRETATION NORMAL: <5.7% PRE-DIABETES: 5.7 - 6.4% DIABETES: 6.5% OR GREATER Parris Summers MD CHEMISTRY ORDERABLES Final R esult Performing Organization Address City/[facility]/ZIP Co de Phone Number [facility] [email or web address] [facility]# [id number] [address] [place] [address] * (ABNORMAL) COMPREHENSIVE METABOLIC PANEL (01/29/2025 2:08 PM CDT) Pathologist [facility] SODIUM 139 136 - 145 mmol/L 01/29/2025 4:01 PM CDT [employer] [facility] POTASSIUM 3.6 3.5 - 5.0 mmol/L 01/29/2025 4:01 PM CDT [employer] [facility] CHLORIDE 109(H) 98 - 107 mmol/L 01/29/2025 4:01 PM [facility] LABORATORY [facility] CO2 20(L) 22 - 29 mmol/L 01/29/2025 4:01 PM [facility] CALCIUM 9.8 8.6 - 10.2 mg/dL 01/29/2025 4:01 PM [facility] BUN 34(H) 6 - 20 mg/dL 01/29/2025 4:01 PM [facility] CREATININE 2.51(H) 0.51 - 0.95 mg/dL 01/29/2025 4:01 PM [facility] [email or web address] [facility] GLUCOSE 134(H) 74 - 99 mg/dL 01/29/2025 4:01 PM [facility] TOTAL PROTEIN 6.2(L) 6.7 - 8.6 g/dL 01/29/2025 4:01 PM [facility] ALBUMIN 3.1(L) 3.5 - 5.2 g/dL 01/29/2025 4:01 PM [facility] BILIRUBIN TOTAL 0.2(L) 0.3 - 1.2 mg/dL 01/29/2025 4:01 PM [facility] ALKALINE PHOSPHATASE 90 35 - 104 U/L 01/29/2025 4:01 PM [facility] AST 8 <33 U/L 01/29/2025 4:01 PM [facility] [email or web address] [facility] ALT 9 <34 U/L 01/29/2025 4:01 PM [facility] [email or web address] [facility] GFR 23(L) >=60 mL/min/1.7 3 sq meter 01/29/2025 4:01 PM [facility] [email or web address] [facility] Comment:eGFR calculated with 2020 CKD-EPI equation. Vegetarian diet, extremely high or low muscle mass, and may affect results. Cystatin C with Glomerular Filtration Rate is a suitable alternative for these patients. ANION GAP 10 8 - 16 mmol/L 01/29/2025 4:01 PM CDT [facility] Blood Venipuncture / Unknown 01/29/2025 2:08 PM CDT 01/29/2025 3:14 PM CDT Narrative [facility] - 01/29/2025 4:01 PM CDT Samples containing indocyanine green cause interferences on Total and/or Direct Bilirubin and must not be measured. us Parris Summers MD CHEMISTRY ORDERABLES Final R esult [facility] CLIA# [id number] [address] [place] [address] from Last 3 Months Insurance [facility] PREFERRED RX [employer] Commercial Advance Directives For more information, please contact: [phone] * Full Code (Latest Code Status on File) Date Activated Date Inactivated Comments 01/29/2025 1:42 PM 02/02/2025 12:23 PM Care Teams Tipping Machine Operator Automatic Relationship Specialty Start Date End Date Jamaal Ibarra DO [address] [id number] PCP - General Internal Medicine 07/11/18
--- OUTSIDE RECORDS SUMMARY | 2025-03-22 16:40 | XMS_ITS | Encounter Summary ---
Author Organization [facility] Healthcare Address [address] [place] [address] Care Team Providers Care Forestry Extension Specialist Name Role Phone Jamaal Ibarra DO Primary Care Provider +1- [phone] Reason for Visit * Diagnostic Imaging (Routine) - Closed Specialty Diagnoses / Procedures Referred By Liz borrero Referred To Contact Procedures Breast Imaging Screening Outside Reference Saul Ortiz NP Phone: tel: fax: Referral ID Status Reason Start Date Expiration Date Visits Re quested Visits Authorized [id number] Closed 10/16/2022 11/15/2023 1 1 Encounter Details Date Type Department Care Team (Late st Contact Info) Description 07/08/2019 Hospital Encounter [facility]) [facility] [place], [place] [id number] Social History Tobacco Use Types Packs/Day Years [...] on file 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 There will be no report generated by a [facility] Radiologist. Narrative [facility]_M[facility]MO[facility] - 10/16/2022 11:48 AM BOILER/CHILLER TECHNICIAN EXAMINATION: Images For Reference Purposes Only us Saul Ortiz NP IMG MAMMO PROCEDURES Final Result [facility] documented in this encounter Visit Diagnoses Not on filedocumented in this encounter Care Teams Forestry Extension Specialist Relationship Specialty Start Date End Date Jamaal Ibarra DO PCP - General 10/22/17 documented as of this encounter
--- OUTSIDE RECORDS SUMMARY | 2025-03-22 16:40 | XMS_ITS | Encounter Summary ---
Author Organization [facility] Healthcare Address [address] [place] [address] Care Team Providers Care Inspector Clip On Sunglasses Name Role Phone Jamaal Ibarra DO Primary Care Provider +1- [phone] Reason for Visit * Diagnostic Imaging (Routine) - Closed Specialty Diagnoses / Procedures Referred By Liz borrero Referred To Contact Procedures Breast Imaging Diagnostic Outside Reference Saul Ortiz NP Phone: tel: fax: Referral ID Status Reason Start Date Expiration Date Visits Re quested Visits Authorized [id number] Closed 10/16/2022 11/15/2023 1 1 Encounter Details Date Type Department Care Team (Late st Contact Info) Description 07/15/2019 12:05 AM CDT Hospital Encounter [facility] Radiology [facility]) [address] [place] [address] Social History Tobacco Use Types Packs/Day Years [...] on file 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 There will be no report generated by a [facility] Radiologist. Narrative [facility]_M[facility]MO[facility] - 10/16/2022 11:47 AM SET UP MACHINIST EXAMINATION: Images For Reference Purposes Only us Saul Ortiz NP IMG MAMMO PROCEDURES Final Result [facility] documented in this encounter Visit Diagnoses Not on filedocumented in this encounter Care Teams Inspector Clip On Sunglasses Relationship Specialty Start Date End Date Jamaal Ibarra DO PCP - General 10/22/17 documented as of this encounter
--- OUTSIDE RECORDS SUMMARY | 2025-03-22 16:40 | XMS_ITS | Clinical Summary ---
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
--- OUTSIDE RECORDS SUMMARY | 2025-03-22 16:40 | XMS_ITS | Encounter Summary ---
Author Organization [facility] Healthcare Address [address] [place] [address] Care Team Providers Care Plaster Molder Name Role Phone Jamaal Ibarra DO Primary Care Provider +1- [phone] Reason for Visit * Diagnostic Imaging (Routine) - Closed Specialty Diagnoses / Procedures Referred By Liz borrero Referred To Contact Procedures Breast Imaging Diagnostic Outside Reference Saul Ortiz NP Phone: tel: fax: Referral ID Status Reason Start Date Expiration Date Visits Re quested Visits Authorized [id number] Closed 10/16/2022 11/15/2023 1 1 Encounter Details Date Type Department Care Team (Late st Contact Info) Description 04/29/2020 12:05 AM CDT Hospital Encounter [facility]) [address] [place] [address] Social History Tobacco Use Types Packs/Day Years [...] on file Legal Sex Female 12:16 AM PSYCHOTHERAPIST COUNSELOR Gender Identity Not on file Sexual Orientation [...] CDT) Impressions [facility] - 10/16/2022 11:47 AM PSYCHOTHERAPIST COUNSELOR These images are for Reference purposes only and have not been reviewed by [facility] Radiology. There will be no report generated by a [facility] Radiologist. Narrative RAD_MAMMO_[facility] - 10/16/2022 11:47 AM PSYCHOTHERAPIST COUNSELOR EXAMINATION: Images For Reference Purposes Only us Saul Ortiz NP IMG MAMMO PROCEDURES Final Result [facility] documented in this encounter Visit Diagnoses Not on filedocumented in this encounter Care Teams Plaster Molder Relationship Specialty Start Date End Date Jamaal Ibarra DO PCP - General 10/22/17 documented as of this encounter
--- OUTSIDE RECORDS SUMMARY | 2025-03-22 16:40 | XMS_ITS | Clinical Summary ---
Author Organization [facility] [employer] Address [address] [place] [address] Care Team Providers Care Forensic Ballistics Expert Name Role Phone Lebron Pugh V. DO Unavailable Jamaal Ibarra DO Primary Care Provider Source Comments [facility],non-owned Affiliates and Associated Physician Practices is amultiple site organization consisting of ambulatory clinics and hospital sitesin [place], [place], [place] and [place]. This disclosure is being madepursuant to the Care Everywhere program and may not contain all information available regarding this patient. Last updated 18.[facility] Allergies Active Allergy Reactions Criticality Noted [...] tablet 2 Active vitamin D, ergocalciferol, (DRISDOL) 82409 UNITS capsule 1 Active gabapentin (NEURONTIN) 300 MG capsule 2 Active simvastatin (ZOCOR) 20 MG tablet 1 Active traMADol (ULTRAM) 50 MG tablet 1 014 Active traZODone (DESYREL) 50 MG tablet 6 Active zolpidem (AMBIEN) 10 MG tablet 5 Active megestrol (MEGACE) 40 MG tablet Take 1 Tab by mouth once daily. 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 Not on file Not on file Last Filed Vital Signs Vital Sign Reading Time Taken Comments Blood Pressure 126/74 10/21/2014 11:57 AM SHIATSU THERAPIST Pulse 102 09/16/2013 1:06 PM SHIATSU THERAPIST Temperature 36.8 C (98.2 F) 09/16/2013 1:06 PM SHIATSU THERAPIST Respiratory Rate 20 09/16/2013 1:06 PM SHIATSU THERAPIST Oxygen Saturation 98% 09/16/2013 1:06 PM SHIATSU THERAPIST Inhaled Oxygen Concentration - - Weight 89.8 kg (198 lb) 10/21/2014 11:57 AM SHIATSU THERAPIST Height 172.7 cm (5' 8) 10/21/2014 11:57 AM SHIATSU THERAPIST Body Mass Index 30.11 10/21/2014 11:57 AM SHIATSU THERAPIST Plan of Treatment Health Maintenance Due Date [...] 50+ (1 of 2 - PCV) 1993 PAP with HPV 2004 DIABETES-FOOT EXAM WITH MONOFILAMENT 07/09/2013 07/09/2012 HEPATITIS [...] HPV MRNA E6/E7 Routine 10/21/2014 1:52 PM SHIATSU THERAPIST Routine gynecological examination MAMMO BILAT SCREENING Routine 09/22/2013 8:09 AM SHIATSU THERAPIST Screening COMPREHENSIVE METABOLIC PANEL Routine 08/22/2013 8:00 AM SHIATSU THERAPIST DM w/o Complication Type II, Uncontrolled HTN (hypertension), benign Abdominal pain, RUQ (right upper quadrant) Ketonuria HEMOGLOBIN A1C Routine 08/22/2013 8:00 AM SHIATSU THERAPIST DM w/o Complication Type II, Uncontrolled MICROALB/CREAT RATIO URINE RANDOM PANEL Routine 08/21/2013 9:29 AM SHIATSU THERAPIST DM w/o Complication Type II, Uncontrolled from Last 3 Months or Most Recently Relevant to Health Maintenance Results * PAP THIN PREP REFLX HPV (PO REF LAB) (10/21/2014 1:52 PM SHIATSU THERAPIST) Clinical Information [facility] Comment:Routine exam LMP [facility] [...] has been evaluated with computer assisted technology. Spike Machine Operator [facility] Comment: BKA, CT(ASCP) Test Performed at: [facility] [address] LAURENCE JO MD ENTIRE ENDOCERVIX / Unknown 10/21/2014 1:52 PM SHIATSU THERAPIST 10/22/2014 10:09 AM SHIATSU THERAPIST us Bienvenido Mcnair Jr., MD LAB - PATHOLOGY/CYTOL OGY ORDERABLES Final Result [address] [address] * MAMM SCREENING DIGITAL IMAGE BILAT G0202 (09/22/2013 8:09 AM SHIATSU THERAPIST) Anatomical Region Laterality Modality Breast Bilateral Mammography 09/22/2013 11:5 3 AM SHIATSU THERAPIST Impressions 09/22/2013 11:56 AM SHIATSU THERAPIST No malignant abnormality identified. No significant change. BI-RADS category 1. Negative. RECOMMENDATIONS: Routine mammograms in one year. Narrative 09/22/2013 11:56 AM SHIATSU THERAPIST Screening mammogram: HISTORY: Screening mammogram. Two views [...] * (ABNORMAL) HEMOGLOBIN A1C (08/22/2013 8:00 AM SHIATSU THERAPIST) Hemoglobin A1c 12.6(H) <5.7 % of total [...] of diabetes for children. Test Performed at: [facility] [address] [place] [address] PAPO BENNETT DO,MPH Whole blood specimen (specimen) BLOOD SPECIMEN / Unknown 08/22/2013 4:53 AM SHIATSU THERAPIST us Salma Hunt STATE TROOPER-DRY KILN OPERATOR HELPER LAB - CHEMISTRY ORDERA BLES Final Result [facility] [address] [place] [address] * (ABNORMAL) COMPREHENSIVE METABOLIC PANEL (08/22/2013 8:00 AM SHIATSU THERAPIST) Glucose 312(H) 65 - 99 mg/dL [facility] [...] 29 U/L [facility] Comment: Test Performed at: [facility] [address] [place] [address] PAPO BENNETT DO,MPH Blood specimen (specimen) BLOOD SPECIMEN / Unknown 08/22/2013 4:53 AM SHIATSU THERAPIST Salma Llanos Marilee STATE TROOPER-DRY KILN OPERATOR HELPER LAB - CHEMISTRY ORDERA BLES Final Result Performing Organization Address [facility] de Phone Number [facility] [address] [place] [phone] * (ABNORMAL) MICROALB/CREAT RATIO URINE RANDOM PANEL (08/21/2013 9:29 AM SHIATSU THERAPIST) Creatinine Urine 129 20 - 320 mg/dL [...] within a diagnostic category. Test Performed at: [facility] [address] [place] [address] PAPO BENNETT DO,MPH Urine specimen (specimen) URINE SPECIMEN OBTAINED BY CLEAN CATCH PROCEDURE / Unknown 08/21/2013 9:29 AM SHIATSU THERAPIST 08/22/2013 4:16 AM SHIATSU THERAPIST Salma Hunt STATE TROOPER-DRY KILN OPERATOR HELPER LAB - URINE CHEMISTRY ORDERABLES Final Result Performing Organization Address [facility] de Phone Number [facility] [address] [place] [address] from Last 3 Months or Most Recently Relevant to Health Maintenance Insurance ANTHEM ANTHEM Advance Directives * FULL RESUSCITATION (Latest Code Status on File) Date Activated Date Inactivated Comments 05/06/2011 1:35 AM 05/08/2011 5:46 AM Care Teams Forensic Ballistics Expert Relationship Specialty Start Date End Date Jamaal Ibarra DO [address] [place] [address] PCP - General 06/01/21 Lebron Pugh DO [address] [place] [address] Oncology 06/23/07
--- OUTSIDE RECORDS SUMMARY | 2025-03-22 16:40 | XMS_ITS | Clinical Summary ---
Author Organization [facility] Address [address] [place] [address] Phone Care Team Providers Care Lead Oxide Mill Tender Name Role Phone JeanniesvetaJamaal jernigan Primary Care Provider [phone] Allergies Active Allergy Reactions Criticality Noted Date [...] 2 Active ergocalciferol (VITAMIN D2) 1.25 MG (00934 UT) capsule TAKE 1 CAPSULE BY MOUTH [...] Comments Blood Pressure 128/72 09/05/2022 8:31 AM CARDIOLOGY NURSE PRACTITIONER Pulse - - Temperature 36.5 C (97.7 F) 09/05/2022 8:31 AM CARDIOLOGY NURSE PRACTITIONER Respiratory Rate 18 09/05/2022 8:31 AM CARDIOLOGY NURSE PRACTITIONER Oxygen Saturation - - Inhaled Oxygen Concentration - - Weight 121 kg (267 lb) 09/05/2022 8:31 AM CARDIOLOGY NURSE PRACTITIONER Height 172.7 cm (5' 8) 09/05/2022 8:31 AM CARDIOLOGY NURSE PRACTITIONER Body Mass Index 40.6 09/05/2022 8:31 AM CARDIOLOGY NURSE PRACTITIONER Plan of Treatment Health Maintenance Due Date Last Done Comments Influenza Vaccine (Season Ended) 2025 07/07/2020, 07/30/2019, 07/16/2018, Additional history exists Insurance [facility] Care Teams Lead Oxide Mill Tender Relationship Specialty Start Date End Date Jamaal Ibarra DO [address] [place] [address] PCP - General Internal Medicine 05/07/22
--- OUTSIDE RECORDS SUMMARY | 2025-03-22 16:40 | XMS_ITS | Encounter Summary ---
Author Organization [facility] Address [address] [place] [address] Phone Care Team Providers Care Division Operations Specialist Name Role Phone Jamaal Ibarra DO Primary Care Provider [phone]- [phone] Encounter Details Date Type Department Care Team (Late st Contact Info) Description 10/18/[address] 5th [place] [address] [place] [address] Era Taylor CMA Social History Tobacco Use Types Packs/Day Years Used Date Smoking Tobacco: Never Smokeless Tobacco: Never Comments Unknown Sex and Gender Information Value Date Recorded Sex Assigned at Not on file Legal Sex Female 12:16 AM CRUDE UNIT OPERATOR Gender Identity Not on file Sexual Orientation Not on file documented as of this encounter Plan of Treatment Not on file documented as of this encounter Visit Diagnoses Not on filedocumented in this encounter Care Teams Division Operations Specialist Relationship Specialty Start Date End Date Jamaal Ibarra DO PCP - General 10/22/17 documented as of this encounter
--- OUTSIDE RECORDS SUMMARY | 2025-03-22 16:40 | XMS_ITS | Clinical Summary ---
Author Organization [facility] Address [address] [place] [address] Care Team Providers Care Reference Test Clerk Name Role Phone Jamaal Ibarra DO Primary Care Provider +1- [phone] Allergies Active Allergy Reactions Criticality Noted Date [...] 09/06/2021 Assessment & Plan (09/06/2021 9:49 AM CORK GRINDER): -Fatigue is most likely multifactorial as she [...] 09/16/2017 Assessment & Plan (09/06/2021 9:45 AM CORK GRINDER): -Taking weekly Vitamin D -Will repeat Vitamin D level Type 1 diabetes mellitus with hyperglycemia 03/2017 Nocturia 06/12/2017 Gastroesophageal reflux disease 10/27/2014 Seronegative rheumatoid arthritis 10/27/2014 Swelling of hand 10/27/2014 Fibroid 10/21/2014 Fibromyalgia 06/09/2014 Hypertension 04/27/2014 Assessment & Plan (09/06/2021 9:45 AM CORK GRINDER): -BP today is 121/81 -Will continue same antihypertensive medications at this time. Hyperlipidemia 04/27/2014 Assessment & Plan (09/06/2021 9:45 AM CORK GRINDER): -Will continue statin as it is being [...] 01/22/2023 Assessment & Plan (09/06/2021 9:45 AM CORK GRINDER): -Currently taking MDI -A1C on 09/06/21 was [...] 06/12/201701/05 Assessment & Plan (09/06/2021 9:07 AM CORK GRINDER): -States she has been off of LT4 for 2 years -Will repeat TFT. Encounters Date Type Department Care Team Description 03/08/2025 Orders Only [facility] Cardiology [address] [place] [address] Odilia Rodriguez MD 03/03/2025 2:00 PM CDT Office Visit [facility] Endocrinology Metabolism and Lipid [address] [facility] 13th [place] [address] [place] [address] Sarah Haskins MD Type 1 diabetes mellitus with hyperglycemia (HCC) (Primary Dx); Hyperlipidemia, unspecified hyperlipidemia type; Vitamin D deficiency; Thyroid nodule 02/26/2025 11:15 AM CDT Procedure visit [facility] Ophthalmology [address] 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 (HCC) (Primary Dx); Vitreous hemorrhage of left eye (HCC); 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 02/11/2025 Orders Only [facility] Medical [facility] Cardiology [address] [place] [address] Kayla Conklin NP from Last 3 Months [...] on file Legal Sex Female 12:16 AM CORK GRINDER Gender Identity Not on file Sexual [...] Priority Date/Time Associated Diagnosis Comments POCT GLUCOSE 14792 Routine 03/03/2025 1: 56 PM CDT Type [...] HEMOGLOBIN A1C Routine 10/23/2024 8 :29 AM CORK GRINDER Type 1 diabetes mellitus with hyperglycemia (HCC) [...] POCT glucose (03/03/2025 1:56 PM CDT) Pathologist [facility] Glucose Blood, POC 377 Normal [...] mg/0.05 mL Route: intravitreal, Site: Left Eye [facility]: 67105-048-10, Lot: [id number], Expiration date: 04/05/2026, Waste: 0 mL Medication [...] Dorman MD LAB BLOOD ORDERABLES Final Result [facility] Department [place] [address] * Albumin Creatinine Ratio, Urine (01/24/2024) Urine Sarah Haskins MD LAB URINE ORDERABLES Final Resu lt Performing Organization Address [facility]/ZIP Co de Phone Number EXTERNAL LAB * TSH (01/24/2024) Blood Sarah Haskins MD LAB BLOOD ORDERABLES Final Resu lt Performing Organization Address [facility] Co de Phone Number EXTERNAL LAB * Lipid panel (01/24/2024) Blood Sarah Haskins MD LAB BLOOD ORDERABLES Final Resu lt Performing Organization Address [facility] de Phone Number EXTERNAL LAB * Diagnostic [...] nipple by physician COMPARISON: Outside exams from [place] 09/13/2022to 07/08/2019 TECHNIQUE: Full field digital mammographic [...] - 07/12/2021 5:08 PM CDT Performed at: [facility] [id number] Haulage Engine Operator: Link Myles PhD, Phone: [phone] us Lorrie Saavedra MD LAB MICROBIOLOGY - GENERAL ORD ERABLES Final Result [facility] - 01 from Last 3 Months or Most Recently Relevant to Health Maintenance Insurance IDPA BL CHOICE PRF [place] GENERIC COPAY ASSIST BL CHOICE PRF [place] WORKERS COMPENSATION GENERIC WORKERS COMPENSATION [place] [address] Care Teams Reference Test Clerk Relationship Specialty Start Date End Date Jamaal Ibarra DO PCP - General 10/22/17
--- OUTSIDE RECORDS SUMMARY | 2025-03-22 16:40 | XMS_ITS | Referral Summary ---
Author Organization [facility] Address [address] [place] [address] Care Team Providers Care It Engineer Name Role Phone Jamaal Ibarra DO Primary Care Provider [phone]- [phone] Encounters Date Type Department Care Team Description 03/08/2025 Orders Only [facility] Cardiology [address] [place] [address] Odilia Rodriguez MD 03/03/2025 2:00 PM CDT Office Visit [facility] Endocrinology Metabolism and Lipid [address] [facility] 13th [place] [address] [place] [address] Sarah Haskins MD Type 1 diabetes mellitus with hyperglycemia (HCC) (Primary Dx); Hyperlipidemia, unspecified hyperlipidemia type; Vitamin D deficiency; Thyroid nodule 02/26/2025 11:15 AM CDT Procedure visit [facility] Ophthalmology [address] 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 (HCC) (Primary Dx); Vitreous hemorrhage of left eye (HCC); 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 02/11/2025 Orders Only [facility] Medical [facility] Cardiology [address] [place] [address] Kayla Conklin NP from Last [...] 09/06/2021 Assessment & Plan (09/06/2021 9:49 AM SLURRY WORKER): -Fatigue is most likely multifactorial as she [...] 09/16/2017 Assessment & Plan (09/06/2021 9:45 AM SLURRY WORKER): -Taking weekly Vitamin D -Will repeat Vitamin D level Type 1 diabetes mellitus with hyperglycemia 03/2017 Nocturia 06/12/2017 Gastroesophageal reflux disease 10/27/2014 Seronegative rheumatoid arthritis 10/27/2014 Swelling of hand 10/27/2014 Fibroid 10/21/2014 Fibromyalgia 06/09/2014 Hypertension 04/27/2014 Assessment & Plan (09/06/2021 9:45 AM SLURRY WORKER): -BP today is 121/81 -Will continue same antihypertensive medications at this time. Hyperlipidemia 04/27/2014 Assessment & Plan (09/06/2021 9:45 AM SLURRY WORKER): -Will continue statin as it is being [...] 01/22/2023 Assessment & Plan (09/06/2021 9:45 AM SLURRY WORKER): -Currently taking MDI -A1C on 09/06/21 was [...] 06/12/201701/05 Assessment & Plan (09/06/2021 9:07 AM SLURRY WORKER): -States she has been off of LT4 [...] on file Legal Sex Female 12:16 AM SLURRY WORKER Gender Identity Not on file Sexual [...] Priority Date/Time Associated Diagnosis Comments POCT GLUCOSE 18476 Routine 03/03/2025 1: 56 PM CDT Type [...] HEMOGLOBIN A1C Routine 10/23/2024 8 :29 AM SLURRY WORKER Type 1 diabetes mellitus with hyperglycemia [...] Site: Left Eye [facility]: [id number], Lot: [id number], Expiration date: 04/05/2026, Waste: 0 mL Medication [...] BLOOD ORDERABLES Final Result Performing Organization Address [facility] Co de Phone Number [facility] Department [place] [address] * Albumin Creatinine Ratio, Urine (01/24/2024) Urine us Sarah Haskins MD LAB URINE ORDERABLES Final Resu lt Performing Organization Address City/[facility]/ZIP Co de Phone Number EXTERNAL LAB * TSH (01/24/2024) Blood us Sarah Haskins MD LAB BLOOD ORDERABLES Final Resu lt EXTERNAL LAB * Lipid panel (01/24/2024) Blood us Sarah Haskins MD LAB BLOOD ORDERABLES Final Resu lt Performing Organization Address [facility] Co de Phone Number EXTERNAL LAB [...] nipple by physician COMPARISON: Outside exams from [place] 09/13/2022to 07/08/2019 TECHNIQUE: Full field digital mammographic [...] 07/12/2021 5:08 PM CDT Performed at: - [address] [id number] Extrusion Line Operator: Link Myles PhD, Phone: [phone] Lorrie Saavedra MD LAB MICROBIOLOGY - GENERAL ORD ERABLES Final Result [facility] - 01 from Last 3 Months or Most Recently Relevant to Health Maintenance Insurance IDPA BL CHOICE PRF [place] GENERIC COPAY ASSIST [place]ICE PRF [place] WORKERS COMPENSATION GENERIC WORKERS COMPENSATION GENERIC Care Teams It Engineer Relationship Specialty Start Date End Date Jamaal Ibarra DO PCP - General 10/22/17
--- OUTSIDE RECORDS SUMMARY | 2025-03-22 16:40 | XMS_ITS | Encounter Summary ---
Author Organization [facility] Healthcare Address [address] [place] [address] Care Team Providers Care Fence Supervisor Name Role Phone Jamaal Ibarra DO Primary Care Provider [phone]- [phone] Reason for Visit * Diagnostic Imaging (Routine) - Closed Specialty Diagnoses / Procedures Referred By Liz borrero Referred To Contact Procedures Breast Imaging US Outside Reference Saul Ortiz NP Phone: tel: fax: Referral ID Status Reason Start Date Expiration Date Visits Re quested Visits Authorized [id number] Closed 10/16/2022 11/15/2023 1 1 Encounter Details Date Type Department Care Team (Late st Contact Info) Description 04/29/2020 Hospital Encounter [facility] [address] [place] [address] Social History Tobacco Use Types Packs/Day [...] on file Legal Sex Female 12:16 AM NATURAL SCIENCES PROFESSOR Gender Identity Not on file Sexual [...] CDT) Impressions [facility] - 10/16/2022 11:47 AM NATURAL SCIENCES PROFESSOR These images are for Reference purposes only and have not been reviewed by [facility] Radiology. There will be no report generated by a [facility] Radiologist. Narrative [facility] - 10/16/2022 11:47 AM NATURAL SCIENCES PROFESSOR EXAMINATION: Images For Reference Purposes Only us Saul Ortiz NP IMG MAMMO PROCEDURES Final Result [facility] documented in this encounter Visit Diagnoses Not on filedocumented in this encounter Care Teams Fence Supervisor Relationship Specialty Start Date End Date Jamaal Ibarra DO PCP - General 10/22/17 documented as of this encounter
--- OUTSIDE RECORDS SUMMARY | 2025-03-22 16:40 | XMS_ITS | Encounter Summary ---
Author Organization [facility] Address [address] [place] [address] Phone Care Team Providers Care Clerk Funeral Detail Name Role Phone Jamaal Ibarra DO Primary Care Provider [phone]- [phone] Encounter Details Date Type Department Care Team (Late st Contact Info) Description 08/03/2021 Orders Only [facility] Rheumatology [address] [facility] Medicine 5th [place] [address] [place] [id number] Jana Medley CMA Social History Tobacco Use Types Packs/Day Years Used Date Smoking Tobacco: Never Comments Unknown Sex and Gender Information Value Date Recorded Sex Assigned at Not on file Legal Sex Female 12:16 AM ASSISTANT CONTROLLER Gender Identity Not on file Sexual Orientation Not on file documented as of this encounter Plan of Treatment Not on file documented as of this encounter Visit Diagnoses Not on filedocumented in this encounter Care Teams Clerk Funeral Detail Relationship Specialty Start Date End Date Jamaal Ibarra DO PCP - General 10/22/17 documented as of this encounter
--- OUTSIDE RECORDS SUMMARY | 2025-03-22 16:40 | XMS_ITS | Encounter Summary ---
Author Organization [facility] Healthcare Address [address] [place] [address] Care Team Providers Care Shock Absorber Installer Name Role Phone Jamaal Ibarra DO Primary Care Provider [phone] Reason for Visit * Diagnostic Imaging (Routine) - Closed Specialty Diagnoses / Procedures Referred By Liz borrero Referred To Contact Procedures Breast Imaging US Outside Reference Saul Ortiz NP Phone: tel: fax: Referral ID Status Reason Start Date Expiration Date Visits Re quested Visits Authorized [id number] Closed 10/16/2022 11/15/2023 1 1 Encounter Details Date Type Department Care Team (Late st Contact Info) Description 07/15/2019 Hospital Encounter [facility]iology [facility] [place], [place] [id number] Social History Tobacco Use Types Packs/Day Years [...] on file Legal Sex Female 12:16 AM ALPACA FARMER Gender Identity Not on file Sexual Orientation [...] CDT) Impressions [facility] - 10/16/2022 11:47 AM ALPACA FARMER These images are for Reference purposes only and have not been reviewed by [facility] Radiology. There will be no report generated by a [facility] Radiologist. Narrative [facility] - 10/16/2022 11:47 AM ALPACA FARMER EXAMINATION: Images For Reference Purposes Only us Saul Ortiz NP IMG MAMMO PROCEDURES Final Result [facility] documented in this encounter Visit Diagnoses Not on filedocumented in this encounter Care Teams Shock Absorber Installer Relationship Specialty Start Date End Date Jamaal Ibarra DO PCP - General 10/22/17 documented as of this encounter
--- OUTSIDE RECORDS SUMMARY | 2025-03-22 16:40 | XMS_ITS | Encounter Summary ---
Author Organization [facility] Address [address] [place] [address] Phone Care Team Providers Care Statistics Intern Name Role Phone Jamaal Ibarra DO Primary Care Provider +1- [phone] Encounter Details Date Type Department Care Team (Latest Contact Info) Description 10/14/2019 Orders Only [facility] EML Scanning, Provider Social History Tobacco Use Types Packs/Day Years Used Date Smoking Tobacco: Never Comments Unknown Sex and Gender Information Value Date Recorded Sex Assigned at Not on file Legal Sex Female 12:16 AM CIO Gender Identity Not on file Sexual Orientation [...] on filedocumented in this encounter Care Teams Statistics Intern Relationship Specialty Start Date End Date Jamaal Ibarra DO PCP - General 10/22/17 documented as of this encounter
--- OUTSIDE RECORDS SUMMARY | 2025-03-22 16:40 | XMS_ITS | Encounter Summary ---
Author Organization [employer] Address [address] [place] [address] Care Team Providers Care Steam Plant Control Room Operator Name Role Phone Jamaal Ibarra DO Primary Care Provider Encounter Details Date Type Department Care Team (Latest Contact Info) Description 03/23/2002 Outpatient Historical [facility] [place] [address] [place] [address] MENSTRUAL DISORDER NEC (Primary Dx) Social History Tobacco Use Types Packs/Day Years Used Date Smoking Tobacco: Never Assessed Comments Unknown Sex and Gender Information Value Date Recorded Sex Assigned at Not on file Legal Sex Female 3:50 AM LINUX NETWORK ENGINEER Gender Identity Not on file Sexual [...] documented as of this encounter Care Teams Steam Plant Control Room Operator Relationship Specialty Start Date End Date Jamaal Ibarra DO [address] [facility] [address] [place] [address] PCP - General Internal Medicine 07/11/18 documented as of this encounter
--- OUTSIDE RECORDS SUMMARY | 2025-03-22 16:40 | XMS_ITS | CONTINUITY OF CARE DOCUMENT ---
Author Name shyanalili Address Unknown Organization [facility] Address [address] [place] [address] [address] [place] [address] Phone [phone] Care Team Providers Care Front Office Assistant Name Role Phone Edwar JAY, Rigoberto Unavailable [phone] JANNETTE JAY, LAYTON Unavailable [phone] JANETH GUZMAN DO Unavailable INSURANCE PROVIDERS Payer name Policy type / Coverage type [place] red democrat ID [facility] [id number]
[2025-03-22 22:07] LABS: Albumin Level 3.8 g/dL (3.5-5.1); Anion Gap 9 mmol/L (4-12); Blood Urea Nitrogen 45 mg/dL (7-17); Calcium 10.5 mg/dL (8.4-10.2); Carbon Dioxide 23 mmol/L (22-30); Chloride 103 mmol/L (98-107); Estimated Glomerular Filt Rate 18; Glucose 299 mg/dL (65-110); Phosphorus 3.5 mg/dL (2.5-4.5); Potassium 4.4 mmol/L (3.4-5.0); Sodium 135 mmol/L (137-145)
== END 2025-03-22 15:32 | disposition home or self-care (01) ==
LOC: ANHGOSHLAB 15:32
PROVIDERS: PCP Internal Medicine; Visit Provider Internal Medicine Nephrology
DX: N17.9 Acute kidney failure, unspecified (principal); N18.4 Chronic kidney disease, stage 4 (severe); R30.0 Dysuria
CPT/HCPCS: 36415; 80069

== ENCOUNTER 2025-05-23 14:42 | Emergency (ER) | payer OTHER, SELFPAY ==
[2025-05-23] VITALS (8 sets, daily range): BP systolic 106–145; BP diastolic 57–85; PULSE 58–72; RESP 11–21; TEMP 36.8; O2SAT 94–98
--- NOTE | ~2025-05-23 | CT_ITS ---
CLINICAL INDICATION: Abdominal pain and worsening renal function COMPARISON: 03/09/2025. TECHNIQUE: Multiple contiguous axial images of the abdomen and pelvis were performed without the admi nistration of intravenous contrast The dose-length product (DLP) was 681.00 mGy-cm. Automated exposure control and iterative reconstruction technique were employed. FINDINGS/OBSERVATIONS: Visualized lower thorax: Left basilar atelectasis, unchanged. The remainder of the bilateral lung bases are clear. The heart is borderline enlarged, with a small pericardial effusion, unchanged from prior. Small hiatal hernia is present. Liver: The liver demonstrates homogeneously decreased attenuation and is enlarged measuring 22 cm in longitu dinal dimension, unchanged. Gallbladder and biliary system: The gallbladder is surgically absent. Pancreas: The pancreas demonstrates fatty atrophy, unchanged from prior. Spleen: Punctate calcifications identified within the splenic parenchyma, suggesting prior granulomat ous disease. The remainder of the spleen demonstrates otherwise homogeneous attenuation and is not enlarged. Kidneys: 4 mm stone within the upper pole of the right kidney, unchanged from prior. The remainder of the bilateral kidneys are otherwise unremarkable, without hydronephrosis or addition al renal calculi. Adrenal glands: Unremarkable. Gastrointestinal tract: Extensive fecal stasis within the colon. Appendix: The air-filled appendix is of normal caliber (axial series, images 131 through 137) Vasculature: Densely calcified atherosclerotic disease, or advanced than one would expect for a patient of this ag e Lymph nodes: No pathologically enlarged or morphologically suspicious lymph nodes within the retroperitoneum or at the root of the mesentery. Pelvic structures: The bladder is only minimally distended, and otherwise unremarkable. The uterus is surgically absent. Body wall and musculoskeletal: Small fat-containing umbilical hernia. No significant degenerative disease within the lower thoracic or lumbosacral spine. IMPRESSION: Extensive fecal stasis within the colon. Redemonstration of a 4 mm nonobstructing stone within the right kidney. Hepatomegaly. Fatty atrophy of the pancreas. Reviewed, dictated and finalized at location A.
--- NOTE | ~2025-05-23 | CT_ITS ---
History: Dizziness PROCEDURE: CT head without contrast. COMPARISON: None TECHNIQUE: Axial imaging of the head performed from the skull base to the vertex without IV contrast. Sagittal a nd coronal reformations obtained. DLP: 681 mGy-cm FINDINGS: The ventricles are normal in size, shape and position. There is no mass, mass effect or midline shift. There is no abnormal extra-axial fluid collection or intracranial hemorrhage. Visualized paranasal sinuses are clear. The mastoid air cells are well aerated. No acute displaced fractures within the overlying cranium. Densely calcified atherosclerotic disease, far advanced than one would expect for a patient of this a ge. Impression: No acute intracranial hemorrhage or suspicious mass effect. Reviewed, dictated and finalized at location A. Impression: No acute intracranial hemorrhage or suspicious mass effect.
--- NOTE | ~2025-05-23 | XR_ITS ---
CHEST RADIOGRAPH CLINICAL HISTORY: Chest pain . COMPARISON: 02/09/2025 TECHNIQUE: Single portable view of the chest. FINDINGS The cardiomediastinal silhouette is unremarkable. The lungs are clear. IMPRESSION: No focal infiltrate or effusion. Reviewed, dictated and finalized at location A.
--- OUTSIDE RECORDS SUMMARY | 2025-05-23 14:45 | XMS_ITS | Encounter Summary ---
Author Organization [facility] Healthcare Address [address] [place] [address] Care Team Providers Care Hosiery Pairer Name Role Phone Jamaal Ibarra DO Primary Care Provider [phone] Reason for Visit * Diagnostic Imaging (Routine) - Closed Specialty Diagnoses / Procedures Referred By Liz borrero Referred To Contact Procedures Breast Imaging Diagnostic Outside Reference Saul Ortiz NP Phone: tel: fax: Referral ID Status Reason Start Date Expiration Date Visits Re quested Visits Authorized [id number] Closed 10/16/2022 11/15/2023 1 1 Encounter Details Date Type Department Care Team (Late st Contact Info) Description 04/29/2020 12:05 AM CDT Hospital Encounter [facility] Radiology [facility] [address] [place] [address] Social History Tobacco Use Types Packs/Day Years [...] on file Legal Sex Female 12:16 AM MACHINE PRECISION ETCHER Gender Identity Not on file Sexual Orientation [...] CDT) Impressions [facility] - 10/16/2022 11:47 AM MACHINE PRECISION ETCHER These images are for Reference purposes only and have not been reviewed by [facility] Radiology. There will be no report generated by a [facility] Radiologist. Narrative [facility] - 10/16/2022 11:47 AM MACHINE PRECISION ETCHER EXAMINATION: Images For Reference Purposes Only us Saul Ortiz NP IMG MAMMO PROCEDURES Final Result [facility] documented in this encounter Visit Diagnoses Not on filedocumented in this encounter Care Teams Hosiery Pairer Relationship Specialty Start Date End Date Jamaal Ibarra DO PCP - General 10/22/17 documented as of this encounter
--- OUTSIDE RECORDS SUMMARY | 2025-05-23 14:45 | XMS_ITS | Encounter Summary ---
Author Organization [facility] Address [address] [place] [address] Phone Care Team Providers Care Roll Forming Supervisor Name Role Phone Jamaal Ibarra DO Primary Care Provider [phone] Encounter Details Date Type Department Care Team (Late st Contact Info) Description 10/18/[address] [place] [address] [place] [address] Era Taylor CMA Social History Tobacco Use Types Packs/Day Years Used Date Smoking Tobacco: Never Smokeless Tobacco: Never Comments Unknown Sex and Gender Information Value Date Recorded Sex Assigned at Not on file Legal Sex Female 12:16 AM BASEBALL GLOVE SHAPER Gender Identity Not on file Sexual Orientation Not on file documented as of this encounter Plan of Treatment Not on file documented as of this encounter Visit Diagnoses Not on filedocumented in this encounter Care Teams Roll Forming Supervisor Relationship Specialty Start Date End Date Jamaal Ibarra DO PCP - General 10/22/17 documented as of this encounter
--- OUTSIDE RECORDS SUMMARY | 2025-05-23 14:45 | XMS_ITS | Encounter Summary ---
Author Organization [facility] Healthcare Address [address] [place] [address] Care Team Providers Care Evidence Custodian Name Role Phone Jamaal Ibarra DO Primary Care Provider [phone]- [phone] Reason for Visit * Diagnostic Imaging (Routine) - Closed Specialty Diagnoses / Procedures Referred By Liz borrero Referred To Contact Procedures Breast Imaging US Outside Reference Saul Ortiz NP Phone: tel: fax: Referral ID Status Reason Start Date Expiration Date Visits Re quested Visits Authorized [id number] Closed 10/16/2022 11/15/2023 1 1 Encounter Details Date Type Department Care Team (Late st Contact Info) Description 07/15/2019 Hospital Encounter [facility] Radiology [facility] [place], [place] [id number] Social History Tobacco Use Types Packs/Day Years [...] on file Legal Sex Female 12:16 AM ASSOCIATE PROFESSOR OF AUTOMATION Gender Identity Not on file Sexual Orientation [...] CDT) Impressions [facility] - 10/16/2022 11:47 AM ASSOCIATE PROFESSOR OF AUTOMATION These images are for Reference purposes only and have not been reviewed by [facility] Radiology. There will be no report generated by a [facility] Radiologist. Narrative [facility] - 10/16/2022 11:47 AM ASSOCIATE PROFESSOR OF AUTOMATION EXAMINATION: Images For Reference Purposes Only us Saul Ortiz NP IMG MAMMO PROCEDURES Final Result [facility] documented in this encounter Visit Diagnoses Not on filedocumented in this encounter Care Teams Evidence Custodian Relationship Specialty Start Date End Date Jamaal Ibarra DO PCP - General 10/22/17 documented as of this encounter
--- OUTSIDE RECORDS SUMMARY | 2025-05-23 14:45 | XMS_ITS | Encounter Summary ---
Author Organization [facility] Address [address] [place] [address] Phone Care Team Providers Care Coat Hanger Shaper Machine Operator Name Role Phone Jamaal Ibarra DO Primary Care Provider [phone] Encounter Details Date Type Department Care Team (Latest Contact Info) Description 10/14/2019 Orders Only [facility] EML Scanning, Provider Social History Tobacco Use Types Packs/Day Years Used Date Smoking Tobacco: Never Comments Unknown Sex and Gender Information Value Date Recorded Sex Assigned at Not on file Legal Sex Female 12:16 AM SPARE FIXER Gender Identity Not on file Sexual Orientation [...] on filedocumented in this encounter Care Teams Coat Hanger Shaper Machine Operator Relationship Specialty Start Date End Date Jamaal Ibarra DO PCP - General 10/22/17 documented as of this encounter
--- OUTSIDE RECORDS SUMMARY | 2025-05-23 14:45 | XMS_ITS | Encounter Summary ---
Author Organization [employer] Address [address] [place] [address] Care Team Providers Care 1St Pressman On Web Press Name Role Phone Jamaal Ibarra DO Primary Care Provider Encounter Details Date Type Department Care Team (Latest Contact Info) Description 03/23/2002 Outpatient Historical [facility] [place] [address] [place] [address] MENSTRUAL DISORDER NEC (Primary Dx) Social History Tobacco Use Types Packs/Day Years Used Date Smoking Tobacco: Never Assessed Comments Unknown Sex and Gender Information Value Date Recorded Sex Assigned at Not on file Legal Sex Female 3:50 AM STRIKER OFF Gender Identity Not on file Sexual Orientation [...] documented as of this encounter Care Teams 1St Pressman On Web Press Relationship Specialty Start Date End Date Jamaal Ibarra DO [address] [facility] [address] [place] [address] PCP - General Internal Medicine 07/11/18 documented as of this encounter
--- OUTSIDE RECORDS SUMMARY | 2025-05-23 14:45 | XMS_ITS | Clinical Summary ---
Author Organization [facility] Address [address] [place] [address] Phone Care Team Providers Care Nurse Orthopedic Name Role Phone JeanniesvetaJamaal jernigan Primary Care Provider [phone] Allergies Active Allergy Reactions Criticality Noted Date [...] 2 Active ergocalciferol (VITAMIN D2) 1.25 MG (52729 UT) capsule TAKE 1 CAPSULE BY MOUTH [...] Comments Blood Pressure 128/72 09/05/2022 8:31 AM DICE PERSON Pulse - - Temperature 36.5 C (97.7 F) 09/05/2022 8:31 AM DICE PERSON Respiratory Rate 18 09/05/2022 8:31 AM DICE PERSON Oxygen Saturation - - Inhaled Oxygen Concentration - - Weight 121 kg (267 lb) 09/05/2022 8:31 AM DICE PERSON Height 172.7 cm (5' 8) 09/05/2022 8:31 AM DICE PERSON Body Mass Index 40.6 09/05/2022 8:31 AM DICE PERSON Plan of Treatment Health Maintenance Due Date Last Done Comments Influenza Vaccine (#1) 2025 0, 07/30/2019, 07/16/2018, Additional history exists Insurance [facility] Care Teams Nurse Orthopedic Relationship Specialty Start Date End Date Jamaal Ibarra DO [address] [place] [address] PCP - General Internal Medicine 05/07/22
--- OUTSIDE RECORDS SUMMARY | 2025-05-23 14:45 | XMS_ITS | Clinical Summary ---
Author Organization [facility] Address [address] [place] [address] Care Team Providers Care Hide Cleaner Name Role Phone Jamaal Ibarra DO Primary Care Provider +1- [phone] Allergies Active Allergy Reactions Criticality Noted Date Comments Benazepril Other (See comments) Low 05/05/2008 Cough Latex Rash,Itching Medium 05/05/2008 Metronidazole Swelling Medium 10/17/2009 Metoclopramide Itching,Redness Medium 07/08/2019 Medications acyclovir (ZOVIRAX) 400 mg tablet 2 times daily. 04/27/20 14 Active amitriptyline (ELAVIL) 25 mg tablet TAKE 1 TABLET AT BEDTIME. 06/12/20 17 Active cyanocobalamin-cob amamide 5,000-100 mcg lozenge daily as needed 06/20/20 17 Active cyclobenzaprine (FLEXERIL) 10 mg tablet 04/27/20 14 Active ondansetron (ZOFRAN) 4 mg tablet take 1 tab po bid prn 06/15/[address] (PROTONIX) 40 mg EC tablet Take 1 tab po bid 06/15/20 15 Active traZODone (DESYREL) 50 mg tablet TAKE 1 TABLET AT BEDTIME. 04/27/20 14 Active zolpidem (AMBIEN) 10 mg tabletIndications: Sleep-Onset [...] HOURS NEEDED FOR COUGH 02/17/20 21 Active ketorolac (ACULAR) 0.5 % ophthalmic solution INSTILL 1 DROP IN LEFT EYE THREE TIMES DAILY. START AFTER SURGERY USE FOR 2 WEEKS 09/11/20 22 Active bumetanide (BUMEX) 0.5 mg tablet Take 1 tablet (0.5 mg total) by mouth daily 12/06/19 23 Active Rexulti 1 mg tablet Take 1 tablet (1 mg total) by mouth daily 05/31/20 23 Active ergocalciferol (VITAMIN D) 50,000 unit capsuleIndications :Vitamin D deficiency Take 1 capsule (50,000 Units total) by mouth 2 (two) times a week 24 capsule 3 06/13/20 23 Active prednisoLONE acetate (PRED FORTE) 1 % ophthalmic suspension Administer 1 drop into the right eye 4 (four) times a day 5 mL 11 08/14/20 24 Active pen needle, diabetic (BD Mer 2nd Gen Pen Needle) 32 gauge x needleIndications: Type 1 diabetes mellitus with hyperglycemia (HCC) USE TO ADMINSTER INSULIN 5 TIMES PER DAY 200 each 10/05/20 24 Active busPIRone (BUSPAR) 10 mg tablet 10/20/19 25 Active SEMGLEE-yfgn 100 unit/mL (3 mL) pen for injection 10/17/19 25 Active lubiprostone (AMITIZA) 24 mcg capsule 10/20/19 25 Active spironolactone (ALDACTONE) 25 mg tablet 10/22/19 25 Active topiramate (TOPAMAX) 25 mg capsule 09/20/20 24 Active blood-glucose meter kitIndications:Typ e 1 diabetes mellitus with hyperglycemia (HCC) Use daily or as directed for monitoring of diabetes 1 kit 10/23/19 25 Active blood glucose diagnostic strip Use to test blood sugar 4 times per day. And to calibrate CGM as needed 50 strip 2 10/23/19 25 Active atorvastatin (LIPITOR) 20 mg tabletIndications: Hyperlipidemia, unspecified hyperlipidemia type TAKE 1 TABLET(20 MG) BY MOUTH DAILY 90 tablet 3 11/24/19 25 Active pioglitazone (ACTOS) 15 mg tabletIndications: Type [...] UNITS 75 mL 3 01/19/20 25 Active carvediloL (COREG) 6.25 mg tablet Take 1 tablet (6.25 mg total) by mouth 2 times daily 02/03/20 25 Active hydrALAZINE (APRESOLINE) 50 mg tablet Take 1 tablet (50 mg total) by mouth every 8 (eight) hours 02/03/20 25 Active amLODIPine (NORVASC) 5 mg tablet Take 1 tablet (5 mg total) by mouth daily 12/26/19 25 Active FreeStyle Sharita 3 Plus Sensor deviceIndications: Type 1 diabetes mellitus with hyperglycemia (HCC) Use a new sensor every 2 weeks for glucose monitoring 2 each 03/03/20 25 Active glucagon (Baqsimi) 3 mg/actuation spray,non-aerosolI ndications:Type 1 diabetes mellitus with hyperglycemia (HCC) mg (one actuation) into a single nostril for low blood sugar that does not correct with oral intake or if confused; if no response, may repeat in 15 minutes using a new intranasal device. 2 each 03/03/20 25 Active insulin lispro-aabc (LYUMJEV) 100 unit/mL pen for injectionIndicatio ns:Type 1 diabetes mellitus with hyperglycemia (HCC) Inject under the skin 10 units three times a day with meals : If you skip a meal, skip this dose, lyumjev correction scale: three time a day at meal times : if you skip a meal, still TAKE this correction dose. If blood sugar is 150-200 : ADD 2 unit more of insulin If blood sugar is 201-250 : ADD 4 units more of insulin If blood sugar is 251-300 : ADD 6 units more of insulin If blood sugar is 301-350 : ADD 8 units more of insulin If blood sugar is more than 350: ADD 10 units more of insulin Max TDD 80 units daily 75 mL 3 05/03/20 25 Active insulin lispro (HumaLOG) 100 unit/mL pen for injectionIndicatio ns:Type 1 diabetes mellitus with hyperglycemia (HCC) Inject under the skin:10 units three times a day with meals : If you skip a meal, skip this dose humalog correction scale: three time a day at meal times : if you skip a meal, still TAKE this correction dose. If blood sugar is 150-200 : ADD 2 unit more of insulin If blood sugar is 201-250 : ADD 4 units more of insulin If blood sugar is 251-300 : ADD 6 units more of insulin If blood sugar is 301-350 : ADD 8 units more of insulin If blood sugar is more than 350: ADD 10 units more of insulin Max TDD 80 units daily 75 mL 3 04/26/20 25 Active insulin lispro (HumaLOG) 100 unit/mL pen for injectionIndicatio ns:Type 1 diabetes mellitus with hyperglycemia (HCC) INJECT 18U UNDER SKIN THREE TIMES DAILY WITH MEALS, 4U WITH SNACKS PLUS SLIDING SCALE BASED ON PREMEAL SUGAR 2U/25PTS ABOVE 150. TTD 80 UNITS 75 mL 3 04/26/20 25 025 Discontin ued(Alter anjelica therapy) Active Problems Problem Noted Date Diagnosed Date Diabetes mellitus with nephropathy 09/17/2024 Vitreous hemorrhage of left eye 04/05/2024 Thyroid nodule 01/22/2024 SHANICE (obstructive sleep apnea) 01/27/2023 Mass of right breast 12/19/2022 Chronic fatigue 09/06/2021 Assessment & Plan (09/06/2021 9:49 AM BULK SEALER OPERATOR): -Fatigue is most likely multifactorial as [...] 09/16/2017 Assessment & Plan (09/06/2021 9:45 AM BULK SEALER OPERATOR): -Taking weekly Vitamin D -Will repeat Vitamin D level Type 1 diabetes mellitus with hyperglycemia 03/2017 Nocturia 06/12/2017 Gastroesophageal reflux disease 10/27/2014 Seronegative rheumatoid arthritis 10/27/2014 Swelling of hand 10/27/2014 Fibroid 10/21/2014 Fibromyalgia 06/09/2014 Hypertension 04/27/2014 Assessment & Plan (09/06/2021 9:45 AM BULK SEALER OPERATOR): -BP today is 121/81 -Will continue same antihypertensive medications at this time. Hyperlipidemia 04/27/2014 Assessment & Plan (09/06/2021 9:45 AM BULK SEALER OPERATOR): -Will continue statin as it is [...] 01/22/2023 Assessment & Plan (09/06/2021 9:45 AM BULK SEALER OPERATOR): -Currently taking MDI -A1C on 09/06/21 [...] 06/12/201701/05 Assessment & Plan (09/06/2021 9:07 AM BULK SEALER OPERATOR): -States she has been off of LT4 for 2 years -Will repeat TFT. Encounters Date Type Department Care Team Description 04/26/2025 Orders Only [facility] Endocrinology Metabolism and Lipid [address] [facility] Medicine [address]th [place] [address] [place] [address] Tavia Fung RMA Type 1 diabetes mellitus with hyperglycemia (HCC) (Primary Dx) 04/26/2025 Telephone [facility] Endocrinology Metabolism and Lipid [address] [facility] Medicine [address]th [place] [address] [place] [address] Tavia Fung RMA Medication Change 04/19/2025 Telephone [facility] Endocrinology Metabolism and Lipid [address] [facility] Medicine [address]th [place] [address] [place] [address] Tavia Fung RMA Prior Auth (Novolog FlexPen); medication change 03/08/2025 Orders Only [facility] Cardiology [address] [place] [address] Odilia Rodriguez MD 03/03/2025 2:00 PM CDT Office Visit [facility] Endocrinology Metabolism and Lipid [address] [facility] 13th [place] [address] [place] [address] Sarah Haskins MD Type 1 diabetes mellitus with hyperglycemia (HCC) (Primary Dx); Hyperlipidemia, unspecified hyperlipidemia type; Vitamin D deficiency; Thyroid nodule 02/26/2025 11:15 AM CDT Procedure visit [facility] Ophthalmology [address] 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 from Last 3 Months Immunizations Immunization Administration [...] on file Legal Sex Female 12:16 AM BULK SEALER OPERATOR Gender Identity Not on file Sexual [...] 06/09, 01/03/2021, Additional history exists Influenza Vaccine (#1) 2025 , 07/30/2019, 07/16/2018, Additional history exists Hemoglobin A1C 07/31/2025 01/29/2025, 10/07, 01/22/2024, Additional history exists TSH Level 01/29/2026 01/29/2025, 01/05, 01/03/2021, Additional history exists Dilated Eye Exam 02/26/2026 02/26/2025, , 06/19/2024, Additional history exists Hepatitis B Screening Completed 07/28/2019 , 08/21/2013, 07/09/2012 Hepatitis C Screening Completed 07/06/2021 Procedures Procedure Name Priority Date/Time Associated Diagnosis Comments POCT GLUCOSE [id number] Routine 03/03/2025 1: 56 PM CDT Type 1 diabetes mellitus with hyperglycemia (HCC) INTRAVITREAL INJECTION, PHARMACOLOGIC AGENT - OS - LEFT EYE Routine 02/26/2025 4:59 PM CDT 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 (HCC) OCT, RETINA - OU - BOTH EYES Routine 02/26/2025 12:23 PM CDT 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 The CKD-EPI equation should not be used for patients with unstable renal function and has not been validated in children and those over 70. Current interpretive data was last reviewed 2021. Blood 04/04/2024 5:59 PM CDT 04/04/2024 6:15 PM CDT Jay Dorman MD LAB BLOOD ORDERABLES Final Result Performing Organization Address City/[facility] Co de Phone Number [facility] Department [place] [address] * Albumin Creatinine Ratio, Urine (01/24/2024) Urine Sarah Haskins MD LAB URINE ORDERABLES Final Resu lt Performing Organization Address [facility]/ZIP Co de Phone Number EXTERNAL LAB * TSH (01/24/2024) Blood Sarah Haskins MD LAB BLOOD ORDERABLES Final Resu lt Performing Organization Address [facility] Co de Phone Number EXTERNAL LAB * Lipid panel (01/24/2024) Blood Sarah Haskins MD LAB BLOOD ORDERABLES Final Resu lt Performing Organization Address [facility] Co de Phone Number EXTERNAL LAB [...] nipple by physician COMPARISON: Outside exams from [place] 09/13/2022to 07/08/2019 TECHNIQUE: Full field digital mammographic [...] - 07/12/2021 5:08 PM CDT Performed at: [address] [place] [id number] Amr Physician: Link Myles PhD, Phone: [phone] us Lorrie aSavedra MD LAB MICROBIOLOGY - GENERAL ORD ERABLES Final Result [facility] - 01 from Last 3 Months or Most Recently Relevant to Health Maintenance Insurance IDPA GENERIC COPAY ASSIST WORKERS COMPENSATION GENERIC WORKERS COMPENSATION GENERIC Care Teams Hide Cleaner Relationship Specialty Start Date End Date Jamaal Ibarra DO PCP - General 10/22/17
--- OUTSIDE RECORDS SUMMARY | 2025-05-23 14:45 | XMS_ITS | Encounter Summary ---
Author Organization [facility] Address [address] [place] [address] Care Team Providers Care Route Contractor Name Role Phone Jamaal Ibarra DO Primary Care Provider [phone]- [phone] Reason for Visit * Diagnostic Imaging (Routine) - Closed Specialty Diagnoses / Procedures Referred By Liz borrero Referred To Contact Procedures Breast Imaging US Outside Reference Saul Ortiz NP Phone: tel: fax: Referral ID Status Reason Start Date Expiration Date Visits Re quested Visits Authorized [id number] Closed 10/16/2022 11/15/2023 1 1 Encounter Details Date Type Department Care Team (Late st Contact Info) Description 04/29/2020 Hospital Encounter [facility] [address] [place] [address] Social History Tobacco Use Types Packs/Day [...] file Legal Sex Female 12:16 AM CIGAR PACKER AND SHADER Gender Identity Not on file Sexual Orientation [...] Impressions [facility] - 10/16/2022 11:47 AM CIGAR PACKER AND SHADER These images are for Reference purposes only and have not been reviewed by [facility]. There will be no report generated by a [facility] Radiologist. Narrative [facility] - 10/16/2022 11:47 AM CIGAR PACKER AND SHADER EXAMINATION: Images For Reference Purposes Only us Saul Ortiz NP IMG MAMMO PROCEDURES Final Result [facility] documented in this encounter Visit Diagnoses Not on filedocumented in this encounter Care Teams Route Contractor Relationship Specialty Start Date End Date Jamaal Ibarra DO PCP - General 10/22/17 documented as of this encounter
--- OUTSIDE RECORDS SUMMARY | 2025-05-23 14:45 | XMS_ITS | Encounter Summary ---
Author Organization [facility] Healthcare Address [address] [place] [address] Care Team Providers Care Art Display Maker Name Role Phone Jamaal Ibarra DO Primary Care Provider +1- [phone] Reason for Visit * Diagnostic Imaging (Routine) - Closed Specialty Diagnoses / Procedures Referred By Liz borrero Referred To Contact Procedures Breast Imaging Diagnostic Outside Reference Saul Ortiz NP Phone: tel: fax: Referral ID Status Reason Start Date Expiration Date Visits Re quested Visits Authorized [id number] Closed 10/16/2022 11/15/2023 1 1 Encounter Details Date Type Department Care Team (Late st Contact Info) Description 07/15/2019 12:05 AM CDT Hospital Encounter [facility] Radiology [facility] [address] [place] [address] Social History Tobacco Use Types Packs/Day Years [...] on file Legal Sex Female 12:16 AM WOVEN WOOD SHADE ASSEMBLER Gender Identity Not on file Sexual Orientation [...] CDT) Impressions [facility] - 10/16/2022 11:47 AM WOVEN WOOD SHADE ASSEMBLER These images are for Reference purposes only and have not been reviewed by [facility]. There will be no report generated by a [facility] Radiologist. Narrative [facility] - 10/16/2022 11:47 AM WOVEN WOOD SHADE ASSEMBLER EXAMINATION: Images For Reference Purposes Only us Saul Ortiz NP IMG MAMMO PROCEDURES Final Result [facility] documented in this encounter Visit Diagnoses Not on filedocumented in this encounter Care Teams Art Display Maker Relationship Specialty Start Date End Date Jamaal Ibarra DO PCP - General 10/22/17 documented as of this encounter
--- OUTSIDE RECORDS SUMMARY | 2025-05-23 14:45 | XMS_ITS | Clinical Summary ---
Author Organization [facility] Address [address] [place] [address] Care Team Providers Care Single End Sewer Name Role Phone Jamaal Ibarra DO Primary Care Provider +1 [phone] Social History Tobacco Use Types Packs/Day Years Used Date Smoking Tobacco: Never Assessed Comments Unknown Sex and Gender Information Value Date Recorded Sex Assigned at Not on file Legal Sex Female 10:23 PM COMMODITY MANAGEMENT SPECIALIST Gender Identity Not on file Sexual [...] age to complete this [place] [address] [facility] Care Teams Single End Sewer Relationship Specialty Start Date End Date Jamaal Ibarra DO [address] [place] [address] PCP - General INTERNAL MEDICINE 07/02/23
--- OUTSIDE RECORDS SUMMARY | 2025-05-23 14:45 | XMS_ITS | Encounter Summary ---
Author Organization [facility] Address [address] [place] [address] Phone Care Team Providers Care Sales Supervisor Name Role Phone Jamaal Ibarra DO Primary Care Provider +1- [phone] Encounter Details Date Type Department Care Team (Late st Contact Info) Description 08/03/2021 Orders Only [facility] Rheumatology [address] [facility] Medicine 5th [place] [address] [place] [id number] Jana Medley CMA Social History Tobacco Use Types Packs/Day Years Used Date Smoking Tobacco: Never Comments Unknown Sex and Gender Information Value Date Recorded Sex Assigned at Not on file Legal Sex Female 12:16 AM FEDERAL AID COORDINATOR Gender Identity Not on file Sexual Orientation Not on file documented as of this encounter Plan of Treatment Not on file documented as of this encounter Visit Diagnoses Not on filedocumented in this encounter Care Teams Sales Supervisor Relationship Specialty Start Date End Date Jamaal Ibarra DO PCP - General 10/22/17 documented as of this encounter
--- OUTSIDE RECORDS SUMMARY | 2025-05-23 14:45 | XMS_ITS | Encounter Summary ---
Author Organization [facility] Healthcare Address [address] [place] [address] Care Team Providers Care Radio Maintainer Name Role Phone Jamaal Ibarra DO Primary Care Provider +1- [phone] Reason for Visit * Diagnostic Imaging (Routine) - Closed Specialty Diagnoses / Procedures Referred By Liz borrero Referred To Contact Procedures Breast Imaging Screening Outside Reference Saul Ortiz NP Phone: tel: fax: Referral ID Status Reason Start Date Expiration Date Visits Re quested Visits Authorized [id number] Closed 10/16/2022 11/15/2023 1 1 Encounter Details Date Type Department Care Team (Late st Contact Info) Description 07/08/2019 Hospital Encounter [facility] [place], [place] [id number] Social History Tobacco Use Types Packs/Day Years [...] on file Legal Sex Female 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 There will be no report generated by a [facility] Radiologist. Narrative [facility] - 10/16/2022 11:48 AM PUBLIC HEALTH ENGINEER EXAMINATION: Images For Reference Purposes Only us Saul Ortiz NP IMG MAMMO PROCEDURES Final Result [facility] documented in this encounter Visit Diagnoses Not on filedocumented in this encounter Care Teams Radio Maintainer Relationship Specialty Start Date End Date Jamaal Ibarra DO PCP - General 10/22/17 documented as of this encounter
--- OUTSIDE RECORDS SUMMARY | 2025-05-23 14:45 | XMS_ITS | Clinical Summary ---
Author Organization [facility] Huan Xiong Address [address] [place] [address] Care Team Providers Care Cube Cutter Name Role Phone Lebron Pugh V. DO Unavailable Jamaal Ibarra DO Primary Care Provider Source Comments [facility],non-owned Affiliates and Associated Physician Practices is amultiple site organization consisting of ambulatory clinics and hospital sitesin [place], [place], [place]. This disclosure is being madepursuant to the Care Everywhere program and may not contain all information available regarding this patient. Last updated 18.[facility] Allergies Active Allergy Reactions Criticality [...] tablet 2 Active vitamin D, ergocalciferol, (DRISDOL) 68648 UNITS capsule 1 Active gabapentin (NEURONTIN) 300 MG capsule 2 Active simvastatin (ZOCOR) 20 MG tablet 1 Active traMADol (ULTRAM) 50 MG tablet 1 014 Active traZODone (DESYREL) 50 MG tablet 6 Active zolpidem (AMBIEN) 10 MG tablet 5 Active megestrol (MEGACE) 40 MG tablet Take 1 Tab by mouth once daily. 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 Not on file Not on file Last Filed Vital Signs Vital Sign Reading Time Taken Comments Blood Pressure 126/74 10/21/2014 11:57 AM MOBILE UI DESIGNER Pulse 102 09/16/2013 1:06 PM MOBILE UI DESIGNER Temperature 36.8 C (98.2 F) 09/16/2013 1:06 PM MOBILE UI DESIGNER Respiratory Rate 20 09/16/2013 1:06 PM MOBILE UI DESIGNER Oxygen Saturation 98% 09/16/2013 1:06 PM MOBILE UI DESIGNER Inhaled Oxygen Concentration - - Weight 89.8 kg (198 lb) 10/21/2014 11:57 AM MOBILE UI DESIGNER Height 172.7 cm (5' 8) 10/21/2014 11:57 AM MOBILE UI DESIGNER Body Mass Index 30.11 10/21/2014 11:57 AM MOBILE UI DESIGNER Plan of Treatment Health Maintenance Due Date [...] MAMMOGRAM 01/11/2025 01/11/2023, 09/06, 08/04/2010 INFLUENZA VACCINE (#1) 2025 , 07/30/2019, 07/16/2018, Additional history exists DIABETES-HGB A1C [...] HPV MRNA E6/E7 Routine 10/21/2014 1:52 PM MOBILE UI DESIGNER Routine gynecological examination MAMMO BILAT SCREENING Routine 09/22/2013 8:09 AM MOBILE UI DESIGNER Screening COMPREHENSIVE METABOLIC PANEL Routine 08/22/2013 8:00 AM MOBILE UI DESIGNER DM w/o Complication Type II, Uncontrolled HTN (hypertension), benign Abdominal pain, RUQ (right upper quadrant) Ketonuria HEMOGLOBIN A1C Routine 08/22/2013 8:00 AM MOBILE UI DESIGNER DM w/o Complication Type II, Uncontrolled MICROALB/CREAT RATIO URINE RANDOM PANEL Routine 08/21/2013 9:29 AM MOBILE UI DESIGNER DM w/o Complication Type II, Uncontrolled from Last 3 Months or Most Recently Relevant to Health Maintenance Results * PAP THIN PREP REFLX HPV (PO REF LAB) (10/21/2014 1:52 PM MOBILE UI DESIGNER) Clinical Information [facility] Comment:Routine exam LMP [facility] [...] has been evaluated with computer assisted technology. Fruit Dumper [facility] Comment: BKA, CT(ASCP) Test Performed at: [email or web address] [address] LAURENCE JO MD ENTIRE ENDOCERVIX / Unknown 10/21/2014 1:52 PM MOBILE UI DESIGNER 10/22/2014 10:09 AM MOBILE UI DESIGNER us Bienvenido Mcnair Jr., MD LAB - PATHOLOGY/CYTOL OGY ORDERABLES Final Result [address] [address] * MAMM SCREENING DIGITAL IMAGE BILAT G0202 (09/22/2013 8:09 AM MOBILE UI DESIGNER) Anatomical Region Laterality Modality Breast Bilateral Mammography 09/22/2013 11:5 3 AM MOBILE UI DESIGNER Impressions 09/22/2013 11:56 AM MOBILE UI DESIGNER No malignant abnormality identified. No significant change. BI-RADS category 1. Negative. RECOMMENDATIONS: Routine mammograms in one year. Narrative 09/22/2013 11:56 AM MOBILE UI DESIGNER Screening mammogram: HISTORY: Screening mammogram. Two views [...] * (ABNORMAL) HEMOGLOBIN A1C (08/22/2013 8:00 AM MOBILE UI DESIGNER) Hemoglobin A1c 12.6(H) <5.7 % of total [...] of diabetes for children. Test Performed at: [facility] [address] [place] [address] PAPO BENNETT DO,MPH Whole blood specimen (specimen) BLOOD SPECIMEN / Unknown 08/22/2013 4:53 AM MOBILE UI DESIGNER us Salma Hunt PRINCIPAL BIOSTATISTICIAN-BIOMEDICAL PHOTOGRAPHER LAB - CHEMISTRY ORDERA BLES Final Result [facility] [address] [place] [address] * (ABNORMAL) COMPREHENSIVE METABOLIC PANEL (08/22/2013 8:00 AM MOBILE UI DESIGNER) Glucose 312(H) 65 - 99 mg/dL [facility] [...] 29 U/L [facility] Comment: Test Performed at: [facility] [address] [place] [address] PAPO BENNETT DO,MPH Blood specimen (specimen) BLOOD SPECIMEN / Unknown 08/22/2013 4:53 AM MOBILE UI DESIGNER Salma Llanos Marilee PRINCIPAL BIOSTATISTICIAN-BIOMEDICAL PHOTOGRAPHER LAB - CHEMISTRY ORDERA BLES Final Result Performing Organization Address [facility] de Phone Number [facility] [address] [place] [address] * (ABNORMAL) MICROALB/CREAT RATIO URINE RANDOM PANEL (08/21/2013 9:29 AM MOBILE UI DESIGNER) Creatinine Urine 129 20 - 320 mg/dL [...] within a diagnostic category. Test Performed at: [facility] [address] [place] [address] PAPO BENNETT DO,MPH Urine specimen (specimen) URINE SPECIMEN OBTAINED BY CLEAN CATCH PROCEDURE / Unknown 08/21/2013 9:29 AM MOBILE UI DESIGNER 08/22/2013 4:16 AM MOBILE UI DESIGNER Salma Viet Marilee PRINCIPAL BIOSTATISTICIAN-BIOMEDICAL PHOTOGRAPHER LAB - URINE CHEMISTRY ORDERABLES Final Result Performing Organization Address [facility] de Phone Number [facility] [address] [place] [address] from Last 3 Months or Most Recently Relevant to Health Maintenance Insurance ANTHEM ANTHEM Advance Directives * FULL RESUSCITATION (Latest Code Status on File) Date Activated Date Inactivated Comments 05/06/2011 1:35 AM 05/08/2011 5:46 AM Care Teams Cube Cutter Relationship Specialty Start Date End Date Jamaal Ibarra DO [address] [place] [address] PCP - General 06/01/21 Lebron Pugh DO [address] [place] [phone] Oncology 06/23/07
--- OUTSIDE RECORDS SUMMARY | 2025-05-23 14:45 | XMS_ITS | Clinical Summary ---
Author Organization [facility] Address [address] [place] [address] Care Team Providers Care Information Systems Professor Name Role Phone Jamaal Ibarra DO Primary [...] Encounters Date Type Department Care Team Description 05/18/2025 External Device Data [facility] ABSTRACTION Provider, Abstract 04/21/2025 External Device Data [facility] ABSTRACTION Provider, Abstract 04/21/2025 External Device Data [facility] ABSTRACTION Provider, Abstract 04/21/2025 External Device Data [facility] ABSTRACTION Provider, Abstract 04/20/2025 External Device Data [facility] ABSTRACTION Provider, Abstract 04/06/2025 External Device Data [facility] ABSTRACTION Provider, Abstract 04/06/2025 External Device Data [facility] ABSTRACTION Provider, Abstract 03/30/2025 External Device Data [facility] ABSTRACTION Provider, Abstract 03/30/2025 External Device Data [facility] ABSTRACTION Provider, Abstract 03/23/2025 External Device Data [facility] ABSTRACTION Provider, Abstract 03/02/2025 External Device Data ST[facility] ABSTRACTION Provider, Abstract 03/02/2025 External Device Data ST[facility] ABSTRACTION Provider, Abstract 02/25/2025 External Device Data ST[facility] ABSTRACTION Provider, Abstract 02/23/2025 External Device Data ST[facility] ABSTRACTION Provider, Abstract from Last 3 Months Family History Medical [...] on file 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 Gender Identity Not on file Sexual [...] 09/17/2005 BREAST CANCER SCREENING 01/12/2024 01/11/2023, 09/22 ZOSTER VACCINE (1 of 2) 2024 INFLUENZA VACCINE (#1) 2025 9, 07/16/2018, 07/22/2017, Additional history exists DIABETES HBA1C Q 6 MONTHS 07/31/20252024, 10/23/2024, 01/03/2021, Additional history exists DIABETES ANNUAL RETINAL EXAM 10/23/2025, 10/23/2024, 10/23/2024, Additional history exists Procedures Procedure Name Priority Date/Time Associated Diagnosis Comments HEMOGLOBIN A1C Routine 01/29/2025 2:08 PM CDT from Last 3 Months or Most Recently Relevant to Health Maintenance Results * (ABNORMAL) HEMOGLOBIN A1C (01/29/2025 2:08 PM CDT) HEMOGLOBIN A1C 8.4(H) <5.7 % 01/29/2025 3:35 PM CDT [facility] EST. AVG GLUCOSE, A1C 194 mg/dL 01/29/2025 3:35 PM CDT [facility] Blood Venipuncture / Unknown 01/29/2025 2:08 PM CDT 01/29/2025 3:15 PM CDT Narrative [facility] - 01/29/2025 3:35 PM CDT HGB A1C INTERPRETATION NORMAL: <5.7% PRE-DIABETES: 5.7 - 6.4% DIABETES: 6.5% OR GREATER Michael Hoskins MD CHEMISTRY ORDERABLES Final R esult [facility] CLIA# [id number] [address] [place] [address] from Last 3 Months or Most Recently Relevant to Health Maintenance Insurance [facility] BLUE PREFERRED Row [employer] Commercial Advance Directives For more information, please contact: [phone] * Full Code (Latest Code Status on File) Date Activated Date Inactivated Comments 01/29/2025 1:42 PM 02/02/2025 12:23 PM Care Teams Information Systems Professor Relationship Specialty Start Date End Date Jamaal Ibarra DO [address] [address] PCP - General Internal Medicine 07/11/18
--- NOTE | 2025-05-23 14:57 | ED.GENADULT ---
HPI - General Adult General Chief complaint: Unspecified Stated complaint: dizzy Time Seen by Provider: 05/23/25 14:55 Source: patient Mode of arrival: ambulatory Limitations: no limitations History of Present Illness HPI narrative: PATIENT IS 49 YEARS OLD WHITE FEMALE CAME TO THE ED WITH HER SISTER BY PRIVATE CAR FROM HOME COMPLAINING OF INTERMITTENT CHEST PAIN, LEG CRAMPS STARTED 2 DAYS AGO. PATIENT WAS COMPLAINING OF DIZZINESS, INTERMITTENT BLACK SPOTS IN HER VISUAL FIELD, POOR APPETITE, NO BOWEL MOVEMENT FOR THE LAST 8 DAYS, DECREASE URINE OUTPUT. HISTORY OF DIABETES, HYPERTENSION HYPERLIPIDEMIA, AND DEPRESSION, NOT ON ANY ANTI-PLATELET OR ANTICOAGULANT MEDICATION, DRINKS OCCASIONALLY, NO DRUG USE OR ABUSE, DENIES SMOKING. PATIENT DENIES ANY FEVER, CHILLS, VOMITING OR SHORTNESS OF BREATH Related Data Home Medications ?Medication ?Instructions ?Recorded ?Confirmed ?Last Taken ?Type docusate sodium 100 mg capsule 100 mg PO DAILY 11/02/19 03/24/25 02/08/25 History (Colace) sertraline 100 mg tablet (Zoloft) 100 mg PO DAILY 11/02/19 03/24/25 02/08/25 History zolpidem 10 mg tablet 10 mg PO QPM PRN Insomnia 11/02/19 03/24/25 02/08/25 History prazosin 2 mg capsule (Minipress) 2 mg PO HS 07/03/20 03/24/25 02/08/25 History coenzyme Q10 100 mg capsule (Co 100 mg PO DAILY 10/03/21 03/24/25 02/08/25 History Q-10) trazodone 50 mg tablet 50 mg PO HS 05/21/22 03/24/25 02/08/25 History Humalog KwikPen Insulin See Protocol subcut TIDWMEAL 03/22/23 03/24/25 02/08/25 History atorvastatin 10 mg tablet 20 mg PO QHS 04/02/23 03/24/25 02/08/25 History sumatriptan succinate 6 mg/0.5 mL 6 mg subcut ONCE PRN Migraine 08/01/23 03/24/25 01/19/25 History subcutaneous pen injector Headache alprazolam 0.5 mg tablet 0.5 mg PO TID 09/10/23 03/24/25 02/08/25 History blood-glucose sensor (FreeStyle #1 ea 05/13/24 03/24/25 Unknown History Sharita 3 Sensor device) glucagon 3 mg/actuation nasal 3 mg intranasal PRN PRN 05/13/24 03/24/25 01/19/25 History spray (Baqsimi) Hypoglycemia insulin glargine 100 unit/mL (3 38 unit subcut BID 05/13/24 03/24/25 02/08/25 History mL) subcutaneous pen (Lantus Solostar U-100 Insulin) pen needle, diabetic 32 gauge x #1,200 ea 05/13/24 03/24/25 Unknown History (BD Mer 2nd Gen Pen Needle) pioglitazone 15 mg tablet 15 mg PO DAILY 05/13/24 03/24/25 02/08/25 History cholecalciferol (vitamin D3) 1,250 1,250 mcg PO WEEKLY 06/02/24 03/24/25 02/07/25 History mcg (50,000 unit) tablet prochlorperazine maleate 10 mg 20 mg PO Q4-6H PRN Nausea 06/02/24 03/24/25 01/19/25 History tablet cholecalciferol (vitamin D3) 125 125 mcg PO DAILY 08/20/24 03/24/25 02/08/25 History mcg (5,000 unit) tablet zinc citrate 11 mg chewable tablet 11 mg PO DAILY 08/20/24 03/24/25 02/08/25 History pantoprazole 40 mg tablet,delayed 40 mg PO DAILY Nausea 02/09/25 03/24/25 02/08/25 History release Allergies Allergy/AdvReac Type Severity Reaction Status Date / Time latex Allergy Severe itching Verified 05/23/25 14:59 metoclopramide Allergy Severe Redness of Verified 05/23/25 14:59 Skin Review of Systems Review of Systems: 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 Gastroparesis Irritable bowel syndrome with constipation Cyclic vomiting syndrome Insulin dependent diabetes mellitus Hyperlipidemia Hypertension Gastroesophageal reflux disease Vitamin B 12 deficiency Anxiety Depression Hypothyroidism Fibromyalgia Rheumatoid arthritis Endometriosis Herpes Uterine fibroid Peptic ulcer Bronchitis Surgical History Surgical History History of cholecystectomy History of detached retina repair History of partial knee replacement History of hysterectomy History of laparoscopy Removal of uterine fibroids Family History Family History Mother Diabetes mellitus Hypertension Family history of elevated blood lipids Sibling Family history of obesity Patient's sister is in good health Father Hypertension Family history of cardiovascular disease Other Acute myocardial infarction Family history of arthritis Family history of heart disease in male family member before age 55 Family history of thyroid disease Social History Social History Social History: Lives alone in [place]. with no children. No alcohol, tobacco, illicit substance abuse. Surrogate decision maker: Susan Ghoshzier, sister. Code status: Full code. Caffeine-daily Smoking status: Never smoker Alcohol intake: never Drinks per week: 1 Alcohol use details: rarely Substance use: never Substance use type: does not use Do You Feel Safe in your Home?: Yes Lack of Transportation: No Lack of Food: Never True Current Housing: I Have Housing Concerned About Future Housing: No Difficulty Paying Gas/Electric Bills: No Difficulty Paying for Meds: No Currently Unemployed: No Education: Associate Degree Difficulty w/ Childcare or Family Care: No Living arrangements: alone Gender identity (if verbalized by the patient): Female Spiritual care concerns: No Exam Narrative: GENERAL APPEARANCE: WELL-DEVELOPED, WELL-NOURISHED SKIN: NORMAL COLOR HEAD: NORMOCEPHALIC, NONTRAUMATIC EYES: CLEAR CONJUNCTIVA ENT: OROPHARYNX NORMAL, EARS NORMAL, NOSE NORMAL NECK: SUPPLE, NONTENDER CHEST AND RESPIRATORY: AIRWAY PATENT, NO RESPIRATORY DISTRESS, NO ACCESSORY MUSCLE USE HEART: REGULAR RATE/RHYTHM ABDOMEN: SOFT, DIFFUSE ABDOMINAL TENDERNESS, NO ORGANOMEGALY, QUIET BOWEL SOUNDS VASCULAR: NORMAL PERIPHERAL PULSES, NORMAL CAPILLARY REFILL. MUSCULOSKELETAL: NORMAL RANGE OF MOTION, NONTENDER BACK NEUROLOGIC: ALERT AND ORIENTED ?3, DUPLICATION SPECIALIST IS NORMAL TESTED, NO GROSS MOTOR DEFICIT Course Vital Signs Vital signs: Vital Signs Temperature 36.8 C 05/23/25 14:52 Pulse Rate 64 05/23/25 14:52 Respiratory Rate 15 05/23/25 14:52 Blood Pressure 144/79 H 05/23/25 14:52 Pulse Oximetry 98 05/23/25 14:52 Oxygen Delivery Room Air 05/23/25 14:52 Temperature 36.8 C 05/23/25 14:52 Pulse Rate 64 05/23/25 17:02 Respiratory Rate 12 05/23/25 17:02 Blood Pressure 123/73 05/23/25 17:02 Pulse Oximetry 96 05/23/25 17:02 Oxygen Delivery Room Air 05/23/25 14:52 Medical Decision Making MDM Narrative Medical decision making narrative: PATIENT CAME WITH MULTIPLE SYMPTOMS VITAL SIGNS ARE STABLE PHYSICAL EXAMINATION SHOWING DIFFUSE ABDOMINAL TENDERNESS DIFFERENTIAL DIAGNOSIS INCLUDE DEPRESSION, ANXIETY, ELECTROLYTE IMBALANCE, DEHYDRATION, URINARY TRACT INFECTION, CONSTIPATION, COLITIS, DIVERTICULITIS, LESS LIKELY CORONARY ARTERY DISEASE. BLOOD WORKUP TODAY INCLUDES CBC, CMP, LIPASE, TROPONIN, PROBNP SHOWED PN OF 61, CREATININE 3.2 CALCIUM 10.8 OTHERWISE WITHIN NORMAL LIMIT URINALYSIS SHOWED no evidence of infection CT ABDOMEN AND PELVIS WITHOUT CONTRAST SHOWED EXTENSIVE FECAL STASIS WITHIN THE COLON, HEPATOMEGALY, FATTY ATROPHY OF THE PANCREAS CHEST X-RAY SHOWED NO ACUTE ABNORMALITY CT HEAD WITHOUT CONTRAST SHOWED NO ACUTE ABNORMALITY Patient received 2 L of normal saline IV in the ED prior to discharge to improve her kidney function. Diagnosis constipation, dehydration Discharged on MiraLax and Dulcolax suppository Differential Diagnosis Differential Diagnosis: As above Vital Signs Vital Signs: Vital Signs Temperature 36.8 C 05/23/25 14:52 Pulse Rate 64 05/23/25 14:52 Respiratory Rate 15 05/23/25 14:52 Blood Pressure 144/79 H 05/23/25 14:52 Pulse Oximetry 98 05/23/25 14:52 Oxygen Delivery Room Air 05/23/25 14:52 Temperature 36.8 C 05/23/25 14:52 Pulse Rate 64 05/23/25 17:02 Respiratory Rate 12 05/23/25 17:02 Blood Pressure 123/73 05/23/25 17:02 Pulse Oximetry 96 05/23/25 17:02 Oxygen Delivery Room Air 05/23/25 14:52 Lab Data 05/23/25 15:29 05/23/25 15:29 Labs: Lab Results 05/23/25 05/23/25 Range/Units 15:29 17:15 WBC 9.7 (4.5-10.0) K/mm3 RBC 4.42 (4.2-5.4) M/mm3 Hgb 12.6 (12.0-15.0) g/dL Hct 38.9 (37.0-47.0) % MCV 88.0 (80-100) fl MCH 28.5 (26-34) pg MCHC 32.4 (32-36) g/dl RDW 13.9 (11.5-14.5) % Plt Count 221 (150-375) k/mm3 MPV 10.3 (7.4-10.4) fl Immature Gran % (Auto) 0.3 (0-0.5) % Neut % (Auto) 68.9 (45.5-73.1) % Lymph % (Auto) 23.2 (18.3-44.2) % [place] % (Auto) 5.5 (2.6-8.5) % Eos % (Auto) 1.7 (0-4.4) % Baso % (Auto) 0.4 (0.2-1.2) % Lymph # (Auto) 2.24 (0.9-3.2) K/mm3 [place] # (Auto) 0.5 (0.1-0.6) K/mm3 Eos # (Auto) 0.2 (0-0.3) K/mm3 Baso # (Auto) 0.0 (0.0-0.1) K/mm3 Abs Immat Gran (auto) 0.03 (0.00-0.031) K/mm3 Absolute Neuts (auto) 6.7 (1.3-6.7) K/mm3 Absolute Nucleated RBC 0.000 (0.0-0.012) K/mm3 Nucleated RBC % 0.0 (0.0-0.2) % PT 12.9 (11.1-14.7) Seconds INR 1.0 APTT 25.7 (22.3-36.8) Seconds Sodium 138 (137-145) mmol/L Potassium 3.9 (3.4-5.0) mmol/L Chloride 104 (98-107) mmol/L Carbon Dioxide 23 (22-30) mmol/L Anion Gap 11 (4-12) mmol/L BUN 61 H D (7-17) mg/dL Creatinine 3.22 H (0.7-1.0) mg/dL Estim Creat Clear Calc 27 ml/min Estimated GFR 15 L (59 - ) Glucose 134 H (65-110) mg/dL Calcium 10.8 H (8.4-10.2) mg/dL Total Bilirubin 0.7 (0.2-1.3) mg/dL AST 23 (14-36) U/L ALT 16 (6-35) U/L Alkaline Phosphatase 106 (38-126) U/L Troponin I 0.021 (0.000-0.034) ng/mL Total Protein 7.4 (6.3-8.2) g/dL Albumin 4.0 (3.5-5.1) g/dL Lipase 108 (23-300) U/L Urine Color Yellow (Yellow) Urine Appearance Clear (Clear) Urine pH 5.0 (5.0-9.0) Ur Specific [place] 1.015 (1.001-1.035) Urine Protein 3+ H (Negative) mg/dL Urine Glucose (UA) Negative (Negative) mg/dL Urine Ketones Negative (Negative) mg/dL Ur Blood (Man) Negative (Negative) Urine Nitrate Negative (Negative) Urine Bilirubin Negative (Negative) Urine Urobilinogen 1.0 (<2.0) mg/dL Add Ur Microanalysis Reviewed Leukocyte Esterase Rfl Negative (Negative) LETY/UL Urine RBC 3-5 H (0-2) /hpf Urine WBC 0-5 (0-3) /hpf Ur Squamous Epith Cells Occasional (Few) /hpf Urine Bacteria Rare /hpf Urine Casts 11-20 Imaging Data Radiologist's impression: Impressions Chest X-Ray 05/23/25 16:10 IMPRESSION: No focal infiltrate or effusion. Head CT 05/23/25 16:44 Impression: No acute intracranial hemorrhage or suspicious mass effect. Abdomen/Pelvis CT 05/23/25 16:48 IMPRESSION: Extensive fecal stasis within the colon. Redemonstration of a 4 mm nonobstructing stone within the right kidney. Hepatomegaly. Fatty atrophy of the pancreas. Critical Care Time Critical Care Time Critical Care Time: Yes Total Critical Care Time: 30 Discharge Plan Discharge Clinical Impression: Constipation, Dehydration Patient Disposition: Home Condition: Stable Instructions: Constipation (ED), Dehydration (ED) Additional Instructions: Return if symptoms are worsening , call your family physician for appointment, take Tylenol as as needed for aches and pain, continue home medications. Encourage fluid intake MiraLax 1 pack every 2 hours up to 6 times a day Fleet enema Patient Language: Chinese Prescriptions: New bisacodyl [Dulcolax (bisacodyl)] 10 mg suppository 10 mg RECTAL TID PRN (Reason: constipation) Qty: 12 0RF No Action insulin glargine [Lantus Solostar U-100 Insulin] 100 unit/mL (3 mL) insulin pen 38 unit subcut BID (DME) pen needle, diabetic [BD Mer 2nd Gen Pen Needle] 32 gauge x 5/32 needle See Rx Instructions .ROUTE .MEDSUPPLY Qty: 1200 Rx Instructions: As directed pioglitazone 15 mg tablet 15 mg PO DAILY Baqsimi 3 mg/actuation spray,non-aerosol 3 mg intranasal PRN PRN (Reason: Hypoglycemia) (DME) FreeStyle Sharita 3 Sensor Device See Rx Instructions .ROUTE .MEDSUPPLY Qty: 1 Rx Instructions: As directed sucralfate 1 gram tablet 1 g PO .qid with meals Qty: 120 1RF chlorthalidone 25 mg tablet 25 mg PO DAILY Qty: 30 6RF carvedilol 6.25 mg tablet 6.25 mg PO Q12H Qty: 60 6RF docusate sodium [Colace] 100 mg capsule 100 mg PO DAILY sertraline [Zoloft] 100 mg tablet 100 mg PO DAILY zolpidem 10 mg tablet 10 mg PO QPM PRN (Reason: Insomnia) atorvastatin 10 mg tablet 20 mg PO QHS alprazolam 0.5 mg tablet 0.5 mg PO TID spironolactone 25 mg tablet 25 mg PO DAILY Qty: 30 11RF bumetanide 1 mg tablet 1 mg PO BID Qty: 60 6RF zinc citrate 11 mg tablet,chewable 11 mg PO DAILY cholecalciferol (vitamin D3) 125 mcg (5,000 unit) tablet 125 mcg PO DAILY acyclovir 400 mg tablet 400 mg PO BID Qty: 180 3RF Trulance 3 mg tablet 3 mg PO DAILY 30 Days Qty: 30 3RF tenapanor 50 mg tablet 50 mg tablet 0RF Humalog KwikPen Insulin See Protocol subcut TIDWMEAL Protocol: Insulin Corrective High-Dose Condition: glucose < 70 mg/dl Dose/Route: Follow hypoglycemia order Condition: glucose 70-200 mg/dl Dose/Route: No additional insulin Condition: glucose 201-250 mg/dl Dose/Route: 4 units sub-Q Condition: glucose 251-300 mg/dl Dose/Route: 5 units sub-Q Condition: glucose 301-350 mg/dl Dose/Route: 6 units sub-Q Condition: glucose 351-400 mg/dl Dose/Route: 8 units sub-Q Condition: glucose > 400 mg/dl Dose/Route: Call MD Protocol Text: *No Correction Dose at Bedtime* Rx Instructions: Uses sliding scale for blood glucose greater than 150 ondansetron 4 mg tablet,disintegrating 4 mg PO Q8H PRN (Reason: nausea and vomiting) Qty: 10 0RF prochlorperazine maleate 10 mg tablet 20 mg PO Q4-6H PRN (Reason: Nausea) cholecalciferol (vitamin D3) 1,250 mcg (50,000 unit) tablet 1,250 mcg PO WEEKLY pantoprazole 40 mg tablet,delayed release (DR/EC) 40 mg PO DAILY dicyclomine 10 mg capsule 10 mg PO QID PRN (Reason: abdominal pain) Qty: 30 0RF metronidazole 500 mg tablet 500 mg PO Q8H Qty: 4 0RF dicyclomine 10 mg capsule 20 mg PO BID PRN (Reason: abdominal pain) Qty: 20 0RF ondansetron 4 mg tablet,disintegrating 4 mg PO Q8H PRN (Reason: nausea and vomiting) Qty: 7 0RF prazosin [Minipress] 2 mg Capsule 2 mg PO HS trazodone 50 mg Tablet 50 mg PO HS sumatriptan succinate 6 mg/0.5 mL pen injector 6 mg subcut ONCE PRN (Reason: Migraine Headache) Rx Instructions: may repeat dose once in 1 hour if not relieved coenzyme Q10 [Co Q-10] 100 mg capsule 100 mg PO DAILY amitriptyline 25 mg tablet 50 mg PO HS Qty: 180 1RF amlodipine 5 mg tablet See Rx Instructions .ROUTE .COMPLEX Qty: 90 1RF Dose Instruction: TAKE 1 TABLET BY MOUTH DAILY Rx Instructions: TAKE 1 TABLET BY MOUTH DAILY topiramate [Topamax] 25 mg capsule, sprinkle 50 mg PO BID Qty: 360 1RF Rx Instructions: titrate up to 50mg bid as directed Ibsrela 50 mg tablet 50 mg PO BID 30 Days Qty: 60 5RF Rx Instructions: must administer immediately before first meal of day/breakfast and dinner tenapanor 50 mg tablet 50 mg tablet 0RF Follow-up/Referrals: Jamaal Ibarra DO [Primary Care Provider] -
--- NOTE | 2025-05-23 15:01 | ECG_ITS ---
Test Date: 2025-05-23 15:13:56 Measurements Intervals [place] Rate: 61 P: 49 LA: 209 QRS: -74 QRSD: 133 T: 110 QT: 497 QTc: 501 Interpretive Statements SINUS RHYTHM WITH FIRST DEGREE AV BLOCK POSSIBLE LEFT ATRIAL ENLARGEMENT IVCD, WITH FEATURES OF BOTH RIGHT BUNDLE BRANCH BLOCK AND LBBB ABNORMAL ECG Compared to ECG 02/10/2025 17:39:52 HEART RATE HAS DECREASED Electronically Signed On 05-23-2025 20:22:58 CDT by Betito Huber D.O.
--- OUTSIDE RECORDS SUMMARY | 2025-05-23 15:07 | XMS_ITS | Clinical Summary ---
Author Organization [facility] [employer] Address [address] [place] [address] Care Team Providers Care Drum Drier Name Role Phone Lebron Pugh V. DO Unavailable Jamaal Ibarra DO Primary Care Provider Source Comments [facility],non-owned Affiliates and Associated Physician Practices is amultiple site organization consisting of ambulatory clinics and hospital sitesin [place], [place], [place] and [place]. This disclosure is being madepursuant to the Care Everywhere program and may not contain all information available regarding this patient. Last updated 18.[facility] Allergies Active Allergy Reactions Criticality [...] tablet 2 Active vitamin D, ergocalciferol, (DRISDOL) 15865 UNITS capsule 1 Active gabapentin (NEURONTIN) 300 MG capsule 2 Active simvastatin (ZOCOR) 20 MG tablet 1 Active traMADol (ULTRAM) 50 MG tablet 1 014 Active traZODone (DESYREL) 50 MG tablet 6 Active zolpidem (AMBIEN) 10 MG tablet 5 Active megestrol (MEGACE) 40 MG tablet Take 1 Tab by mouth once daily. 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 Not on file Not on file Not on file Last Filed Vital Signs Vital Sign Reading Time Taken Comments Blood Pressure 126/74 10/21/2014 11:57 AM PIPING SUPERVISOR Pulse 102 09/16/2013 1:06 PM PIPING SUPERVISOR Temperature 36.8 C (98.2 F) 09/16/2013 1:06 PM PIPING SUPERVISOR Respiratory Rate 20 09/16/2013 1:06 PM PIPING SUPERVISOR Oxygen Saturation 98% 09/16/2013 1:06 PM PIPING SUPERVISOR Inhaled Oxygen Concentration - - Weight 89.8 kg (198 lb) 10/21/2014 11:57 AM PIPING SUPERVISOR Height 172.7 cm (5' 8) 10/21/2014 11:57 AM PIPING SUPERVISOR Body Mass Index 30.11 10/21/2014 11:57 AM PIPING SUPERVISOR Plan of Treatment Health Maintenance Due Date [...] HPV MRNA E6/E7 Routine 10/21/2014 1:52 PM PIPING SUPERVISOR Routine gynecological examination MAMMO BILAT SCREENING Routine 09/22/2013 8:09 AM PIPING SUPERVISOR Screening COMPREHENSIVE METABOLIC PANEL Routine 08/22/2013 8:00 AM PIPING SUPERVISOR DM w/o Complication Type II, Uncontrolled HTN (hypertension), benign Abdominal pain, RUQ (right upper quadrant) Ketonuria HEMOGLOBIN A1C Routine 08/22/2013 8:00 AM PIPING SUPERVISOR DM w/o Complication Type II, Uncontrolled MICROALB/CREAT RATIO URINE RANDOM PANEL Routine 08/21/2013 9:29 AM PIPING SUPERVISOR DM w/o Complication Type II, Uncontrolled from Last 3 Months or Most Recently Relevant to Health Maintenance Results * PAP THIN PREP REFLX HPV (PO REF LAB) (10/21/2014 1:52 PM PIPING SUPERVISOR) Clinical Information [facility] Comment:Routine exam LMP [facility] [...] has been evaluated with computer assisted technology. Aircraft Electrical Systems Specialist [facility] Comment: BKA, CT(ASCP) Test Performed at: [facility] [employer] [address] LAURENCE JO MD ENTIRE ENDOCERVIX / Unknown 10/21/2014 1:52 PM PIPING SUPERVISOR 10/22/2014 10:09 AM PIPING SUPERVISOR us Bienvenido Mcnair Jr., MD LAB - PATHOLOGY/CYTOL OGY ORDERABLES Final Result [address] [id number] * MAMM SCREENING DIGITAL IMAGE BILAT G0202 (09/22/2013 8:09 AM PIPING SUPERVISOR) Anatomical Region Laterality Modality Breast Bilateral Mammography 09/22/2013 11:5 3 AM PIPING SUPERVISOR Impressions 09/22/2013 11:56 AM PIPING SUPERVISOR No malignant abnormality identified. No significant change. BI-RADS category 1. Negative. RECOMMENDATIONS: Routine mammograms in one year. Narrative 09/22/2013 11:56 AM PIPING SUPERVISOR Screening mammogram: HISTORY: Screening mammogram. Two views [...] * (ABNORMAL) HEMOGLOBIN A1C (08/22/2013 8:00 AM PIPING SUPERVISOR) Hemoglobin A1c 12.6(H) <5.7 % of total [...] of diabetes for children. Test Performed at: [facility] [address] [place] [address] PAPO BENNETT DO,MPH Whole blood specimen (specimen) BLOOD SPECIMEN / Unknown 08/22/2013 4:53 AM PIPING SUPERVISOR us Salma Hunt LANDMEN-DOCK ASSOCIATE LAB - CHEMISTRY ORDERA BLES Final Result [facility] [address] [place] [address] * (ABNORMAL) COMPREHENSIVE METABOLIC PANEL (08/22/2013 8:00 AM PIPING SUPERVISOR) Glucose 312(H) 65 - 99 mg/dL [facility] [...] 29 U/L [facility] Comment: Test Performed at: [facility] [address] [place] [address] PAPO BENNETT DO,MPH Blood specimen (specimen) BLOOD SPECIMEN / Unknown 08/22/2013 4:53 AM PIPING SUPERVISOR Salma Llanos Marilee LAND[employer]DOCK ASSOCIATE LAB - CHEMISTRY ORDERA BLES Final Result Performing Organization Address [facility] de Phone Number [facility] [address] [place] [address] * (ABNORMAL) MICROALB/CREAT RATIO URINE RANDOM PANEL (08/21/2013 9:29 AM PIPING SUPERVISOR) Creatinine Urine 129 20 - 320 mg/dL [...] within a diagnostic category. Test Performed at: [facility] [address] [place] [address] PAPO BENNETT DO,MPH Urine specimen (specimen) URINE SPECIMEN OBTAINED BY CLEAN CATCH PROCEDURE / Unknown 08/21/2013 9:29 AM PIPING SUPERVISOR 08/22/2013 4:16 AM PIPING SUPERVISOR Salma Viet Marilee LANDMEN-DOCK ASSOCIATE LAB - URINE CHEMISTRY ORDERABLES Final Result Performing Organization Address [facility] de Phone Number [facility] [address] [place] [address] from Last 3 Months or Most Recently Relevant to Health Maintenance Insurance ANTHEM ANTHEM Advance Directives * FULL RESUSCITATION (Latest Code Status on File) Date Activated Date Inactivated Comments 05/06/2011 1:35 AM 05/08/2011 5:46 AM Care Teams Drum Drier Relationship Specialty Start Date End Date Jamaal Ibarra DO [address] [place] [address] PCP - General 06/01/21 Lebron Pugh DO [address] [place] [id number] Oncology 06/23/07
--- OUTSIDE RECORDS SUMMARY | 2025-05-23 15:07 | XMS_ITS | Clinical Summary ---
Author Organization [facility] Address [address] [place] [address] Care Team Providers Care Crocheter Name Role Phone Jamaal Ibarra DO Primary Care Provider +1- [phone] Allergies Active Allergy Reactions Criticality Noted Date [...] 09/06/2021 Assessment & Plan (09/06/2021 9:49 AM SEISMIC COMPUTER): -Fatigue is most likely multifactorial as she [...] 09/16/2017 Assessment & Plan (09/06/2021 9:45 AM SEISMIC COMPUTER): -Taking weekly Vitamin D -Will repeat Vitamin D level Type 1 diabetes mellitus with hyperglycemia 03/2017 Nocturia 06/12/2017 Gastroesophageal reflux disease 10/27/2014 Seronegative rheumatoid arthritis 10/27/2014 Swelling of hand 10/27/2014 Fibroid 10/21/2014 Fibromyalgia 06/09/2014 Hypertension 04/27/2014 Assessment & Plan (09/06/2021 9:45 AM SEISMIC COMPUTER): -BP today is 121/81 -Will continue same antihypertensive medications at this time. Hyperlipidemia 04/27/2014 Assessment & Plan (09/06/2021 9:45 AM SEISMIC COMPUTER): -Will continue statin as it is being [...] 01/22/2023 Assessment & Plan (09/06/2021 9:45 AM SEISMIC COMPUTER): -Currently taking MDI -A1C on 09/06/21 was [...] 06/12/201701/05 Assessment & Plan (09/06/2021 9:07 AM SEISMIC COMPUTER): -States she has been off of LT4 for 2 years -Will repeat TFT. Encounters Date Type Department Care Team Description 04/26/2025 Orders Only [facility] Endocrinology Metabolism and Lipid [address] [facility] [address] 13th [place] [address] [place] [address] Tavia Fung RMA Type 1 diabetes mellitus with hyperglycemia (HCC) (Primary Dx) 04/26/2025 Telephone [facility] Endocrinology Metabolism and Lipid [address] [facility] Medicine 13th [place] [address] [place] [address] Tavia Fung RMA Medication Change 04/19/2025 Telephone [facility] Endocrinology Metabolism and Lipid [address] [facility] Medicine 13th [place] [address] [place] [address] Tavia Fung RMA Prior Auth (Novolog FlexPen); medication change 03/08/2025 Orders Only [facility] Cardiology [address] [place] [address] Odilia Rodriguez MD 03/03/2025 2:00 PM CDT Office Visit [facility] Endocrinology Metabolism and Lipid [address] [facility] 13th [place] [address] [place] [address] Sarah Haskins MD Type 1 diabetes mellitus with hyperglycemia (HCC) (Primary Dx); Hyperlipidemia, unspecified hyperlipidemia type; Vitamin D deficiency; Thyroid nodule 02/26/2025 11:15 AM CDT Procedure visit [facility] Ophthalmology [address] [facility] 2nd Floor, [address] [place] [address] Steven Edmonds MD Proliferative diabetic retinopathy of [...] on file Legal Sex Female 12:16 AM SEISMIC COMPUTER Gender Identity Not on file Sexual Orientation [...] Priority Date/Time Associated Diagnosis Comments POCT GLUCOSE 31801 Routine 03/03/2025 1: 56 PM CDT Type [...] HEMOGLOBIN A1C Routine 10/23/2024 8 :29 AM SEISMIC COMPUTER Type 1 diabetes mellitus with hyperglycemia (HCC) [...] mg/0.05 mL Route: intravitreal, Site: Left Eye [facility]: 59867-746-21, Lot: [id number], Expiration date: 04/05/2026, Waste: 0 mL Medication [...] * POCT hemoglobin A1c (10/23/2024 8:29 AM SEISMIC COMPUTER) Hemoglobin A1C, POC 9.1 4.0 - 5.6 % Blood 10/23/2024 8:29 AM SEISMIC COMPUTER Evelin Monzon NP POINT OF CARE TEST [...] BLOOD ORDERABLES Final Result Performing Organization Address City/[facility] Co de Phone Number [facility] [address] [facility] Department [place] [address] * Albumin Creatinine Ratio, Urine (01/24/2024) Urine Sarah Haskins MD LAB URINE ORDERABLES Final Resu lt Performing Organization Address [facility]/ZIP Co de Phone Number EXTERNAL LAB * TSH (01/24/2024) Blood Sarah Haskins MD LAB BLOOD ORDERABLES Final Resu lt Performing Organization Address [facility] Co de Phone Number EXTERNAL LAB * Lipid panel (01/24/2024) Blood Sarah Haskins MD LAB BLOOD ORDERABLES Final Resu lt Performing Organization Address [facility] Co de Phone Number EXTERNAL [...] nipple by physician COMPARISON: Outside exams from [place] 09/13/2022to 07/08/2019 TECHNIQUE: Full field digital mammographic [...] - 07/12/2021 5:08 PM CDT Performed at: [address] [place] [id number] Ladle Mechanic: Link Myles PhD, Phone: [phone] us Lorrie Saavedra MD LAB MICROBIOLOGY - GENERAL ORD ERABLES Final Result [facility] - 01 from Last 3 Months or Most Recently Relevant to Health Maintenance Insurance IDPA GENERIC COPAY ASSIST WORKERS COMPENSATION GENERIC WORKERS COMPENSATION GENERIC Care Teams Crocheter Relationship Specialty Start Date End Date Jamaal Ibarra DO PCP - General 10/22/17
--- OUTSIDE RECORDS SUMMARY | 2025-05-23 15:07 | XMS_ITS | Clinical Summary ---
Author Organization [facility] Address [address] [place] [address] Care Team Providers Care Hatch Supervisor Name Role Phone Jamaal Ibarra DO [...] on file Legal Sex Female 3:50 AM BENCH PRECISION ASSEMBLER Gender Identity Not on file Sexual [...] 8.4(H) <5.7 % 01/29/2025 3:35 PM CDT [facility] EST. AVG GLUCOSE, A1C 194 mg/dL 01/29/2025 3:35 PM CDT [facility] Blood Venipuncture / Unknown 01/29/2025 2:08 PM CDT 01/29/2025 3:15 PM CDT Narrative [facility] - 01/29/2025 3:35 PM CDT HGB A1C INTERPRETATION NORMAL: <5.7% PRE-DIABETES: 5.7 - 6.4% DIABETES: 6.5% OR GREATER Michael Hoskins MD CHEMISTRY ORDERABLES Final R esult [facility] CLIA# [id number] [address] [id number] from Last 3 Months or Most Recently Relevant to Health Maintenance Insurance [facility] BLUE PREFERRED RX [employer] Commercial Advance Directives For more information, please contact: [phone] * Full Code (Latest Code Status on File) Date Activated Date Inactivated Comments 01/29/2025 1:42 PM 02/02/2025 12:23 PM Care Teams Hatch Supervisor Relationship Specialty Start Date End Date Jamaal Ibarra DO [address] [address] PCP - General Internal Medicine 07/11/18
--- OUTSIDE RECORDS SUMMARY | 2025-05-23 15:07 | XMS_ITS | Encounter Summary ---
Author Organization [facility] Healthcare Address [address] [place] [address] Care Team Providers Care Carcass Washer Name Role Phone Jamaal Ibarra DO Primary Care Provider +1- [phone] Reason for Visit * Diagnostic Imaging (Routine) - Closed Specialty Diagnoses / Procedures Referred By Liz borrero Referred To Contact Procedures Breast Imaging Screening Outside Reference Saul Ortiz NP Phone: tel: fax: Referral ID Status Reason Start Date Expiration Date Visits Re quested Visits Authorized [id number] Closed 10/16/2022 11/15/2023 1 1 Encounter Details Date Type Department Care Team (Late st Contact Info) Description 07/08/2019 Hospital Encounter [facility] [place], [place] [id number] Social History Tobacco Use Types Packs/Day Years [...] on file Legal Sex Female 12:16 AM PARK INTERPRETER Gender Identity Not on file Sexual Orientation [...] CDT) Impressions [facility] - 10/16/2022 11:48 AM PARK INTERPRETER These images are for Reference purposes only and have not been reviewed by [facility] Radiology. There will be no report generated by a [facility] Radiologist. Narrative [facility] - 10/16/2022 11:48 AM PARK INTERPRETER EXAMINATION: Images For Reference Purposes Only us Saul Ortiz NP IMG MAMMO PROCEDURES Final Result [facility] documented in this encounter Visit Diagnoses Not on filedocumented in this encounter Care Teams Carcass Washer Relationship Specialty Start Date End Date Jamaal Ibarra DO PCP - General 10/22/17 documented as of this encounter
--- OUTSIDE RECORDS SUMMARY | 2025-05-23 15:07 | XMS_ITS | Encounter Summary ---
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
--- OUTSIDE RECORDS SUMMARY | 2025-05-23 15:07 | XMS_ITS | Encounter Summary ---
Author Organization [facility] Healthcare Address [address] [place] [address] Care Team Providers Care Family Support Coordinator Name Role Phone Jamaal Ibarra DO Primary Care Provider +1- [phone] Reason for Visit * Diagnostic Imaging (Routine) - Closed Specialty Diagnoses / Procedures Referred By Liz borrero Referred To Contact Procedures Breast Imaging Diagnostic Outside Reference Saul Ortiz NP Phone: tel: fax: Referral ID Status Reason Start Date Expiration Date Visits Re quested Visits Authorized [id number] Closed 10/16/2022 11/15/2023 1 1 Encounter Details Date Type Department Care Team (Late st Contact Info) Description 04/29/2020 12:05 AM CDT Hospital Encounter [facility] [address] [place] [address] Social History Tobacco Use Types Packs/Day Years [...] on file Legal Sex Female 12:16 AM 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 There will be no report generated by a [facility] Radiologist. Narrative [facility] - 10/16/2022 11:47 AM HIGH SPEED WARPER TENDER EXAMINATION: Images For Reference Purposes Only us Saul Ortiz NP IMG MAMMO PROCEDURES Final Result [facility] documented in this encounter Visit Diagnoses Not on filedocumented in this encounter Care Teams Family Support Coordinator Relationship Specialty Start Date End Date Jamaal Ibarra DO PCP - General 10/22/17 documented as of this encounter
--- OUTSIDE RECORDS SUMMARY | 2025-05-23 15:07 | XMS_ITS | Encounter Summary ---
Author Organization [facility] Address [address] [place] [address] Phone Care Team Providers Care Risk Mgr Name Role Phone Jamaal Ibarra DO Primary Care Provider +1- [phone] Encounter Details Date Type Department Care Team (Late st Contact Info) Description 08/03/2021 Orders Only [facility] Rheumatology [address] [facility] Medicine 5th [place] [address] [place] [address] Jana Medley CMA Social History Tobacco Use Types Packs/Day Years Used Date Smoking Tobacco: Never Comments Unknown Sex and Gender Information Value Date Recorded Sex Assigned at Not on file Legal Sex Female 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
--- OUTSIDE RECORDS SUMMARY | 2025-05-23 15:07 | XMS_ITS | Encounter Summary ---
Author Organization [facility] Healthcare Address [address] [place] [address] Care Team Providers Care Marble Coper Name Role Phone Jamaal Ibarra DO Primary Care Provider +1- [phone] Reason for Visit * Diagnostic Imaging (Routine) - Closed Specialty Diagnoses / Procedures Referred By Liz borrero Referred To Contact Procedures Breast Imaging Diagnostic Outside Reference Saul Ortiz NP Phone: tel: fax: Referral ID Status Reason Start Date Expiration Date Visits Re quested Visits Authorized [id number] Closed 10/16/2022 11/15/2023 1 1 Encounter Details Date Type Department Care Team (Late st Contact Info) Description 07/15/2019 12:05 AM CDT Hospital Encounter [facility] [address] [place] [address] Social History Tobacco Use Types Packs/Day Years [...] file Legal Sex Female 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 There will be no report generated by a [facility] Radiologist. Narrative [facility] - 10/16/2022 11:47 AM HIGH SCHOOL CHEMISTRY TEACHER EXAMINATION: Images For Reference Purposes Only us Saul Ortiz NP IMG MAMMO PROCEDURES Final Result [facility] documented in this encounter Visit Diagnoses Not on filedocumented in this encounter Care Teams Marble Coper Relationship Specialty Start Date End Date Jamaal Ibarra DO PCP - General 10/22/17 documented as of this encounter
--- OUTSIDE RECORDS SUMMARY | 2025-05-23 15:07 | XMS_ITS | Clinical Summary ---
Author Organization [facility] Address [address] [place] [address] Phone Care Team Providers Care Senior Dentist Name Role Phone JeanniesvetaJamaal jernigan Primary Care Provider [phone] Allergies Active Allergy Reactions Criticality Noted Date [...] 2 Active ergocalciferol (VITAMIN D2) 1.25 MG (70833 UT) capsule TAKE 1 CAPSULE BY MOUTH [...] Comments Blood Pressure 128/72 09/05/2022 8:31 AM PRINTING SERVICES COORDINATOR Pulse - - Temperature 36.5 C (97.7 F) 09/05/2022 8:31 AM PRINTING SERVICES COORDINATOR Respiratory Rate 18 09/05/2022 8:31 AM PRINTING SERVICES COORDINATOR Oxygen Saturation - - Inhaled Oxygen Concentration - - Weight 121 kg (267 lb) 09/05/2022 8:31 AM PRINTING SERVICES COORDINATOR Height 172.7 cm (5' 8) 09/05/2022 8:31 AM PRINTING SERVICES COORDINATOR Body Mass Index 40.6 09/05/2022 8:31 AM PRINTING SERVICES COORDINATOR Plan of Treatment Health Maintenance Due Date Last Done Comments Influenza Vaccine (#1) 2025 0, 07/30/2019, 07/16/2018, Additional history exists Insurance [facility] Care Teams Senior Dentist Relationship Specialty Start Date End Date Jamaal Ibarra DO [address] [place] [address] PCP - General Internal Medicine 05/07/22
--- OUTSIDE RECORDS SUMMARY | 2025-05-23 15:07 | XMS_ITS | Encounter Summary ---
Author Organization [facility] Address [address] [place] [address] Care Team Providers Care Window Installer Name Role Phone Jamaal Ibarra DO Primary Care Provider Encounter Details Date Type Department Care Team (Latest Contact Info) Description 03/23/2002 Outpatient Historical [facility] [address] [place] [address] MENSTRUAL DISORDER NEC (Primary Dx) Social History Tobacco Use Types Packs/Day Years Used Date Smoking Tobacco: Never Assessed Comments Unknown Sex and Gender Information Value Date Recorded Sex Assigned at Not on file Legal Sex Female 3:50 AM PARTNER MARKETING INTERN Gender Identity Not on file [...] documented as of this encounter Care Teams Window Installer Relationship Specialty Start Date End Date Jamaal Ibarra DO [address] [facility] [address] [place] [address] PCP - General Internal Medicine 07/11/18 documented as of this encounter
--- OUTSIDE RECORDS SUMMARY | 2025-05-23 15:07 | XMS_ITS | Encounter Summary ---
Author Organization [facility] Address [address] [place] [address] Phone Care Team Providers Care Data Communications Analyst Name Role Phone Jamaal Ibarra DO Primary Care Provider +1- [phone] Encounter Details Date Type Department Care Team (Late st Contact Info) Description 10/18/[address] 5th [place] [address] [place] [address] Era Taylor CMA Social History Tobacco Use Types Packs/Day Years Used Date Smoking Tobacco: Never Smokeless Tobacco: Never Comments Unknown Sex and Gender Information Value Date Recorded Sex Assigned at Not on file 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
--- OUTSIDE RECORDS SUMMARY | 2025-05-23 15:07 | XMS_ITS | Encounter Summary ---
Author Organization [facility] Healthcare Address [address] [place] [address] Care Team Providers Care Precise Winder Name Role Phone Jamaal Ibarra DO Primary Care Provider +1- [phone] Reason for Visit * Diagnostic Imaging (Routine) - Closed Specialty Diagnoses / Procedures Referred By Liz borrero Referred To Contact Procedures Breast Imaging US Outside Reference Saul Ortiz NP Phone: tel: fax: Referral ID Status Reason Start Date Expiration Date Visits Re quested Visits Authorized [id number] Closed 10/16/2022 11/15/2023 1 1 Encounter Details Date Type Department Care Team (Late st Contact Info) Description 04/29/2020 Hospital Encounter [facility] [address] [place] [address] Social History Tobacco Use Types Packs/Day [...] on file Legal Sex Female 12:16 AM BEACH EXPERT Gender Identity Not on file Sexual Orientation [...] CDT) Impressions [facility] - 10/16/2022 11:47 AM BEACH EXPERT These images are for Reference purposes only and have not been reviewed by [facility] Radiology. There will be no report generated by a [facility] Radiologist. Narrative [facility] - 10/16/2022 11:47 AM BEACH EXPERT EXAMINATION: Images For Reference Purposes Only us Saul Ortiz NP IMG MAMMO PROCEDURES Final Result [facility] documented in this encounter Visit Diagnoses Not on filedocumented in this encounter Care Teams Precise Winder Relationship Specialty Start Date End Date Jamaal Ibarra DO PCP - General 10/22/17 documented as of this encounter
--- OUTSIDE RECORDS SUMMARY | 2025-05-23 15:07 | XMS_ITS | Clinical Summary ---
Author Organization [facility] Address [address] [place] [address] Care Team Providers Care Punch Press Feeder Name Role Phone Jamaal Ibarra DO Primary Care Provider +[phone] Social History Tobacco Use Types Packs/Day Years Used Date Smoking Tobacco: Never Assessed Comments Unknown Sex and Gender Information Value Date Recorded Sex Assigned at Not on file Legal Sex Female 10:23 PM ENTEROSTOMAL NURSE Gender Identity Not on file Sexual [...] age to complete this topic [place] [address] [facility] Care Teams Punch Press Feeder Relationship Specialty Start Date End Date Jamaal Ibarra DO [address] [place] [address] PCP - General INTERNAL MEDICINE 07/02/23
--- OUTSIDE RECORDS SUMMARY | 2025-05-23 15:07 | XMS_ITS | Encounter Summary ---
Author Organization [facility] Healthcare Address [address] [place] [address] Care Team Providers Care Hand Sprayer Name Role Phone Jamaal Ibarra DO Primary Care Provider +1- [phone] Reason for Visit * Diagnostic Imaging (Routine) - Closed Specialty Diagnoses / Procedures Referred By Liz borrero Referred To Contact Procedures Breast Imaging US Outside Reference Saul Ortiz NP Phone: tel: fax: Referral ID Status Reason Start Date Expiration Date Visits Re quested Visits Authorized [id number] Closed 10/16/2022 11/15/2023 1 1 Encounter Details Date Type Department Care Team (Late st Contact Info) Description 07/15/2019 Hospital Encounter [facility]iology [facility] [place], [place] [id number] Social History Tobacco Use Types Packs/Day Years [...] on file Legal Sex Female 12:16 AM 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 There will be no report generated by a [facility] Radiologist. Narrative [facility]MO[facility] - 10/16/2022 11:47 AM CARGO VESSEL STEWARDESS EXAMINATION: Images For Reference Purposes Only us Saul Ortiz NP IMG MAMMO PROCEDURES Final Result [facility] documented in this encounter Visit Diagnoses Not on filedocumented in this encounter Care Teams Hand Sprayer Relationship Specialty Start Date End Date Jamaal Ibarra DO PCP - General 10/22/17 documented as of this encounter
[2025-05-23] MEDS: SODIUM CHLORIDE 0.9% IV 1,000 ML 999 ML IV CONT ×2 (15:36→17:29)
[2025-05-23] MEDS: ONDANSETRON INJ 4 MG/2 ML VIAL IV PUSH (15:36)
[2025-05-23] MEDS: HYDROmorphone HCL INJ (*CRX) 1 MG/ML SYR 0.5 MG IV PUSH (15:37)
[2025-05-23 15:49] LABS: Hematocrit 38.9 % (37.0-47.0); Hemoglobin 12.6 g/dL (12.0-15.0); Immature Granulocyte Percent A 0.3 % (0-0.5); Lymphocytes Absolute Auto 2.24 K/mm3 (0.9-3.2); Mean Corpuscular HGB Conc 32.4 g/dl (32-36); Mean Corpuscular Hemoglobin 28.5 pg (26-34); Mean Corpuscular Volume 88.0 fl (80-100); Nucleated Red Blood Cells Absolute Auto 0.000 K/mm3 (0.0-0.012); Nucleated Red Blood Cells Perc 0.0 % (0.0-0.2); Platelet Count Result 221 k/mm3 (150-375); Red Blood Count 4.42 M/mm3 (4.2-5.4); White Blood Count 9.7 K/mm3 (4.5-10.0)
--- NOTE | 2025-05-23 15:56 | PC.NURSE ---
pt says she has not been urinating as often and is unable to give a UA sample at this time. pt says she is very dehydrated. pt is getting fluids at this time and will reassess once the fluids are done
[2025-05-23 16:02] LABS: Alanine Aminotransferase 16 U/L (6-35); Albumin Level 4.0 g/dL (3.5-5.1); Alkaline Phosphatase 106 U/L (38-126); Anion Gap 11 mmol/L (4-12); Aspartate Amino Transferase 23 U/L (14-36); Bilirubin,Total 0.7 mg/dL (0.2-1.3); Blood Urea Nitrogen 61 mg/dL (7-17); Calcium 10.8 mg/dL (8.4-10.2); Carbon Dioxide 23 mmol/L (22-30); Chloride 104 mmol/L (98-107); Estimated CRCL calculation 27 ml/min; Estimated Glomerular Filt Rate 15; Glucose 134 mg/dL (65-110); Lipase 108 U/L (23-300); Potassium 3.9 mmol/L (3.4-5.0); Sodium 138 mmol/L (137-145); Total Protein 7.4 g/dL (6.3-8.2)
[2025-05-23 16:05] LABS: INR 1.0; Prothrombin Time 12.9 Seconds (11.1-14.7)
[2025-05-23 16:06] LABS: Partial Thromboplastin Time 25.7 Seconds (22.3-36.8)
[2025-05-23 16:11] LABS: Troponin I 0.021 ng/mL (0.000-0.034)
[2025-05-23 17:57] LABS: Add Urine Microscopic? YES; Appearance Urine Clear (Clear); Glucose Urine UA Negative (Negative); Leukocyte Esterase Ur Negative LEU/UL (Negative); Need Manual Microscopic Reviewed; Nitrate Urine Negative (Negative); Specific Grav Ur 1.015 (1.001-1.035)
--- NOTE | 2025-05-23 19:00 | PC.NURSE ---
EDP Dr. Garcia gave verbal order for no 3hr EKG on this pt
== END 2025-05-23 19:17 | disposition home or self-care (01) ==
PROVIDERS: Emergency Provider Emergency Medicine; PCP Internal Medicine
DX: K59.00 Constipation, unspecified (principal); E86.0 Dehydration; E78.5 Hyperlipidemia, unspecified; Z79.4 Long term (current) use of insulin; N18.9 Chronic kidney disease, unspecified; F41.8 Other specified anxiety disorders; E11.22 Type 2 diabetes mellitus with diabetic chronic kidney disease; I12.9 Hypertensive chronic kidney disease with stage 1 through stage 4 chronic kidney disease, or unspecified chronic kidney disease; E53.8 Deficiency of other specified B group vitamins; M06.9 Rheumatoid arthritis, unspecified; E03.9 Hypothyroidism, unspecified; E66.01 Morbid (severe) obesity due to excess calories; Z68.41 Body mass index [BMI] 40.0-44.9, adult
CPT/HCPCS: 36415; 70450; 71045; 74176; 80053; 81001; 83690; 84484; 85025; 85610; 85730; 93005; 96361; 96374; 96375; 99284; J1171; J2405; J7030

== ENCOUNTER 2025-05-24 15:36 | Outpatient (CLI) | payer OTHER, SELFPAY ==
--- OUTSIDE RECORDS SUMMARY | 2025-05-24 16:04 | XMS_ITS | Encounter Summary ---
Author Organization [facility] Healthcare Address [address] [place] [address] Care Team Providers Care Cruise Staff Member Name Role Phone Jamaal Ibarra DO Primary Care Provider +1- [phone] Reason for Visit * Diagnostic Imaging (Routine) - Closed Specialty Diagnoses / Procedures Referred By Liz borrero Referred To Contact Procedures Breast Imaging Diagnostic Outside Reference Saul Ortiz NP Phone: tel: fax: Referral ID Status Reason Start Date Expiration Date Visits Re quested Visits Authorized [id number] Closed 10/16/2022 11/15/2023 1 1 Encounter Details Date Type Department Care Team (Late st Contact Info) Description 07/15/2019 12:05 AM CDT Hospital Encounter [facility] [address] [place] [address] Social History Tobacco Use Types Packs/Day Years [...] on file Legal Sex Female 12:16 AM PIN CLEANER Gender Identity Not on file Sexual Orientation [...] CDT) Impressions [facility] - 10/16/2022 11:47 AM PIN CLEANER These images are for Reference purposes only and have not been reviewed by [facility]. There will be no report generated by a [facility] Radiologist. Narrative [facility] - 10/16/2022 11:47 AM PIN CLEANER EXAMINATION: Images For Reference Purposes Only us Saul Ortiz NP IMG MAMMO PROCEDURES Final Result [facility] documented in this encounter Visit Diagnoses Not on filedocumented in this encounter Care Teams Cruise Staff Member Relationship Specialty Start Date End Date Jamaal Ibarra DO PCP - General 10/22/17 documented as of this encounter
--- OUTSIDE RECORDS SUMMARY | 2025-05-24 16:04 | XMS_ITS | Clinical Summary ---
Author Organization [facility] Address [address] [place] [address] Care Team Providers Care Pediatric Dental Hygienist Name Role Phone Jamaal Ibarra DO Primary [...] on file Legal Sex Female 3:50 AM BLOW PIT OPERATOR Gender Identity Not on file Sexual [...] 8.4(H) <5.7 % 01/29/2025 3:35 PM CDT [facility] EST. AVG GLUCOSE, A1C 194 mg/dL 01/29/2025 3:35 PM CDT [facility] Blood Venipuncture / Unknown 01/29/2025 2:08 PM CDT 01/29/2025 3:15 PM CDT Narrative [facility] - 01/29/2025 3:35 PM CDT HGB A1C INTERPRETATION NORMAL: <5.7% PRE-DIABETES: 5.7 - 6.4% DIABETES: 6.5% OR GREATER Michael Hoskins MD CHEMISTRY ORDERABLES Final R esult [facility] CLIA# [id number] [address] [address] from Last 3 Months or Most Recently Relevant to Health Maintenance Insurance [facility] BLUE PREFERRED [employer] Commercial Advance Directives For more information, please contact: [phone] * Full Code (Latest Code Status on File) Date Activated Date Inactivated Comments 01/29/2025 1:42 PM 02/02/2025 12:23 PM Care Teams Pediatric Dental Hygienist Relationship Specialty Start Date End Date Jamaal Ibarra DO [address] [address] PCP - General Internal Medicine 07/11/18
--- OUTSIDE RECORDS SUMMARY | 2025-05-24 16:04 | XMS_ITS | Encounter Summary ---
Author Organization [facility] Address [address] [place] [address] Phone Care Team Providers Care Manager Library Name Role Phone Jamaal Ibarra DO Primary Care Provider +1- [phone] Encounter Details Date Type Department Care Team (Late st Contact Info) Description 10/18/[address] [place] [address] [place] [address] Era Taylor CMA Social History Tobacco Use Types Packs/Day Years Used Date Smoking Tobacco: Never Smokeless Tobacco: Never Comments Unknown Sex and Gender Information Value Date Recorded Sex Assigned at Not on file Legal Sex Female 12:16 AM MICROSTRATEGY BI DEVELOPER Gender Identity Not on file Sexual Orientation Not on file documented as of this encounter Plan of Treatment Not on file documented as of this encounter Visit Diagnoses Not on filedocumented in this encounter Care Teams Manager Library Relationship Specialty Start Date End Date Jamaal Ibarra DO PCP - General 10/22/17 documented as of this encounter
--- OUTSIDE RECORDS SUMMARY | 2025-05-24 16:04 | XMS_ITS | Encounter Summary ---
Author Organization [facility] Healthcare Address [address] [place] [address] Care Team Providers Care Cutting And Splicing Supervisor Name Role Phone Jamaal Ibarra DO Primary Care Provider +1- [phone] Reason for Visit * Diagnostic Imaging (Routine) - Closed Specialty Diagnoses / Procedures Referred By Liz borrero Referred To Contact Procedures Breast Imaging Screening Outside Reference Saul Ortiz NP Phone: tel: fax: Referral ID Status Reason Start Date Expiration Date Visits Re quested Visits Authorized [id number] Closed 10/16/2022 11/15/2023 1 1 Encounter Details Date Type Department Care Team (Late st Contact Info) Description 07/08/2019 Hospital Encounter [facility] [place], [place] [id number] Social History Tobacco Use Types Packs/Day Years [...] on file Legal Sex Female 12:16 AM KEG RAISER Gender Identity Not on file Sexual Orientation [...] CDT) Impressions [facility] - 10/16/2022 11:48 AM KEG RAISER These images are for Reference purposes only and have not been reviewed by [facility]iology. There will be no report generated by a [facility] Radiologist. Narrative [facility] - 10/16/2022 11:48 AM KEG RAISER EXAMINATION: Images For Reference Purposes Only us Saul Ortiz NP IMG MAMMO PROCEDURES Final Result [facility] documented in this encounter Visit Diagnoses Not on filedocumented in this encounter Care Teams Cutting And Splicing Supervisor Relationship Specialty Start Date End Date Jamaal Ibarra DO PCP - General 10/22/17 documented as of this encounter
--- OUTSIDE RECORDS SUMMARY | 2025-05-24 16:04 | XMS_ITS | Encounter Summary ---
Author Organization [facility] Address [address] [place] [address] Phone Care Team Providers Care Machine Rebuilder Name Role Phone Jamaal Ibarra DO Primary Care Provider +1- [phone] Encounter Details Date Type Department Care Team (Latest Contact Info) Description 10/14/2019 Orders Only [facility] Scanning, Provider Social History Tobacco Use Types Packs/Day Years Used Date Smoking Tobacco: Never Comments Unknown Sex and Gender Information Value Date Recorded Sex Assigned at Not on file Legal Sex Female 12:16 AM IN SHOP SERVICE TECHNICIAN Gender Identity Not on file Sexual [...] on filedocumented in this encounter Care Teams Machine Rebuilder Relationship Specialty Start Date End Date Jamaal Ibarra DO PCP - General 10/22/17 documented as of this encounter
--- OUTSIDE RECORDS SUMMARY | 2025-05-24 16:04 | XMS_ITS | Encounter Summary ---
Author Organization [facility] Address [address] [place] [address] Care Team Providers Care Energy Efficiency Engineer Name Role Phone Jamaal Ibarra DO Primary Care Provider Encounter Details Date Type Department Care Team (Latest Contact Info) Description 03/23/2002 Outpatient Historical [facility] [place] [address] [place] [address] MENSTRUAL DISORDER NEC (Primary Dx) Social History Tobacco Use Types Packs/Day Years Used Date Smoking Tobacco: Never Assessed Comments Unknown Sex and Gender Information Value Date Recorded Sex Assigned at Not on file Legal Sex Female 3:50 AM TANK PUMPER PANELBOARD Gender Identity Not on file Sexual Orientation [...] documented as of this encounter Care Teams Energy Efficiency Engineer Relationship Specialty Start Date End Date Jamaal Ibarra DO [address] [place] [address] PCP - General Internal Medicine 07/11/18 documented as of this encounter
--- OUTSIDE RECORDS SUMMARY | 2025-05-24 16:04 | XMS_ITS | Clinical Summary ---
Author Organization [facility] [employer] Address [address] [place] [address] Care Team Providers Care Environment Coordinator Name Role Phone Lebron Pugh V. DO Unavailable Jamaal Ibarra DO Primary Care Provider Source Comments [facility],non-owned Affiliates and Associated Physician Practices is amultiple site organization consisting of ambulatory clinics and hospital sitesin [place], [place], [place] and [place]. This disclosure is being madepursuant to the Care Everywhere program and may not contain all information available regarding this patient. Last updated 18.[facility] Allergies Active Allergy Reactions Criticality Noted Date [...] tablet 2 Active vitamin D, ergocalciferol, (DRISDOL) 06131 UNITS capsule 1 Active gabapentin (NEURONTIN) 300 MG capsule 2 Active simvastatin (ZOCOR) 20 MG tablet 1 Active traMADol (ULTRAM) 50 MG tablet 1 014 Active traZODone (DESYREL) 50 MG tablet 6 Active zolpidem (AMBIEN) 10 MG tablet 5 Active megestrol (MEGACE) 40 MG tablet Take 1 Tab by mouth once daily. 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 Not on file Not on file Last Filed Vital Signs Vital Sign Reading Time Taken Comments Blood Pressure 126/74 10/21/2014 11:57 AM CANOPY INSPECTOR Pulse 102 09/16/2013 1:06 PM CANOPY INSPECTOR Temperature 36.8 C (98.2 F) 09/16/2013 1:06 PM CANOPY INSPECTOR Respiratory Rate 20 09/16/2013 1:06 PM CANOPY INSPECTOR Oxygen Saturation 98% 09/16/2013 1:06 PM CANOPY INSPECTOR Inhaled Oxygen Concentration - - Weight 89.8 kg (198 lb) 10/21/2014 11:57 AM CANOPY INSPECTOR Height 172.7 cm (5' 8) 10/21/2014 11:57 AM CANOPY INSPECTOR Body Mass Index 30.11 10/21/2014 11:57 AM CANOPY INSPECTOR Plan of Treatment Health Maintenance Due [...] HPV MRNA E6/E7 Routine 10/21/2014 1:52 PM CANOPY INSPECTOR Routine gynecological examination MAMMO BILAT SCREENING Routine 09/22/2013 8:09 AM CANOPY INSPECTOR Screening COMPREHENSIVE METABOLIC PANEL Routine 08/22/2013 8:00 AM CANOPY INSPECTOR DM w/o Complication Type II, Uncontrolled HTN (hypertension), benign Abdominal pain, RUQ (right upper quadrant) Ketonuria HEMOGLOBIN A1C Routine 08/22/2013 8:00 AM CANOPY INSPECTOR DM w/o Complication Type II, Uncontrolled MICROALB/CREAT RATIO URINE RANDOM PANEL Routine 08/21/2013 9:29 AM CANOPY INSPECTOR DM w/o Complication Type II, Uncontrolled from Last 3 Months or Most Recently Relevant to Health Maintenance Results * PAP THIN PREP REFLX HPV (PO REF LAB) (10/21/2014 1:52 PM CANOPY INSPECTOR) Clinical Information [facility] Comment:Routine exam LMP [...] has been evaluated with computer assisted technology. Towel Stretcher [facility] Comment: BKA, CT(ASCP) Test Performed at: [email or web address] [address] LAURENCE JO MD ENTIRE ENDOCERVIX / Unknown 10/21/2014 1:52 PM CANOPY INSPECTOR 10/22/2014 10:09 AM CANOPY INSPECTOR us Bienvenido Mcnair Jr., MD LAB - PATHOLOGY/CYTOL OGY ORDERABLES Final Result [address] [address] * MAMM SCREENING DIGITAL IMAGE BILAT G0202 (09/22/2013 8:09 AM CANOPY INSPECTOR) Anatomical Region Laterality Modality Breast Bilateral Mammography 09/22/2013 11:5 3 AM CANOPY INSPECTOR Impressions 09/22/2013 11:56 AM CANOPY INSPECTOR No malignant abnormality identified. No significant change. BI-RADS category 1. Negative. RECOMMENDATIONS: Routine mammograms in one year. Narrative 09/22/2013 11:56 AM CANOPY INSPECTOR Screening mammogram: HISTORY: Screening mammogram. Two [...] * (ABNORMAL) HEMOGLOBIN A1C (08/22/2013 8:00 AM CANOPY INSPECTOR) Hemoglobin A1c 12.6(H) <5.7 % of [...] of diabetes for children. Test Performed at: [facility] [address] [place] [address] PAPO BENNETT DO,MPH Whole blood specimen (specimen) BLOOD SPECIMEN / Unknown 08/22/2013 4:53 AM CANOPY INSPECTOR us Salma Hunt NURSING EDUCATION CONSULTANT-[facility] LAB - CHEMISTRY ORDERA BLES Final Result [facility] [address] [place] [address] * (ABNORMAL) COMPREHENSIVE METABOLIC PANEL (08/22/2013 8:00 AM CANOPY INSPECTOR) Glucose 312(H) 65 - 99 mg/dL [...] 29 U/L [facility] Comment: Test Performed at: [facility] [address] [place] [address] PAPO BENNETT DO,MPH Blood specimen (specimen) BLOOD SPECIMEN / Unknown 08/22/2013 4:53 AM CANOPY INSPECTOR Salma Llanos Marilee NURSING EDUCATION CONSULTANT-[facility] - CHEMISTRY ORDERA BLES Final Result Performing Organization Address [facility] de Phone Number [facility] [address] [place] [address] * (ABNORMAL) MICROALB/CREAT RATIO URINE RANDOM PANEL (08/21/2013 9:29 AM CANOPY INSPECTOR) Creatinine Urine 129 20 - 320 [...] within a diagnostic category. Test Performed at: [facility] [id number] [place] [address] PAPO BENNETT DO,MPH Urine specimen (specimen) URINE SPECIMEN OBTAINED BY CLEAN CATCH PROCEDURE / Unknown 08/21/2013 9:29 AM CANOPY INSPECTOR 08/22/2013 4:16 AM CANOPY INSPECTOR Salma Viet Marilee NURSING EDUCATION CONSULTANT[facility] - URINE CHEMISTRY ORDERABLES Final Result Performing Organization Address [facility] de Phone Number [facility] [address] [place] [address] from Last 3 Months or Most Recently Relevant to Health Maintenance Insurance ANTHEM ANTHEM Advance Directives * FULL RESUSCITATION (Latest Code Status on File) Date Activated Date Inactivated Comments 05/06/2011 1:35 AM 05/08/2011 5:46 AM Care Teams Environment Coordinator Relationship Specialty Start Date End Date Jamaal Ibarra DO [address] [place] [address] PCP - General 06/01/21 Lebron Pugh DO [address] [place] [address] Oncology 06/23/07
--- OUTSIDE RECORDS SUMMARY | 2025-05-24 16:04 | XMS_ITS | Clinical Summary ---
Author Organization [facility] Address [address] [place] [address] Care Team Providers Care Counter Tacker Name Role Phone Jamaal Ibarra DO Primary Care Provider +1- [phone] Allergies Active Allergy Reactions Criticality Noted Date [...] 09/06/2021 Assessment & Plan (09/06/2021 9:49 AM OIL AND GAS EXPLORATION TECHNICIAN): -Fatigue is most likely multifactorial as [...] 09/16/2017 Assessment & Plan (09/06/2021 9:45 AM OIL AND GAS EXPLORATION TECHNICIAN): -Taking weekly Vitamin D -Will repeat Vitamin D level Type 1 diabetes mellitus with hyperglycemia 03/2017 Nocturia 06/12/2017 Gastroesophageal reflux disease 10/27/2014 Seronegative rheumatoid arthritis 10/27/2014 Swelling of hand 10/27/2014 Fibroid 10/21/2014 Fibromyalgia 06/09/2014 Hypertension 04/27/2014 Assessment & Plan (09/06/2021 9:45 AM OIL AND GAS EXPLORATION TECHNICIAN): -BP today is 121/81 -Will continue same antihypertensive medications at this time. Hyperlipidemia 04/27/2014 Assessment & Plan (09/06/2021 9:45 AM OIL AND GAS EXPLORATION TECHNICIAN): -Will continue statin as it is [...] 01/22/2023 Assessment & Plan (09/06/2021 9:45 AM OIL AND GAS EXPLORATION TECHNICIAN): -Currently taking MDI -A1C on 09/06/21 [...] 06/12/201701/05 Assessment & Plan (09/06/2021 9:07 AM OIL AND GAS EXPLORATION TECHNICIAN): -States she has been off of LT4 for 2 years -Will repeat TFT. Encounters Date Type Department Care Team Description 04/26/2025 Orders Only [facility] Endocrinology Metabolism and Lipid [address] [facility] [address]th [place] [address] [place] [address] Tavia Fung RMA Type 1 diabetes mellitus with hyperglycemia (HCC) (Primary Dx) 04/26/2025 Telephone [facility] Endocrinology Metabolism and Lipid [address] [facility] [address]th [place] [address] [place] [address] Tavia Fung RMA Medication Change 04/19/2025 Telephone [facility] Endocrinology Metabolism and Lipid [address] [facility] [address]th [place] [address] [place] [address] Tavia Fung RMA Prior Auth (Novolog FlexPen); medication change 03/08/2025 Orders Only [facility] Cardiology [address] [place] [address] Odilia Rodriguez MD 03/03/2025 2:00 PM CDT Office Visit [facility] Endocrinology Metabolism and Lipid [address] [facility] [address] [place] [address] [place] [address] Sarah Haskins MD Type 1 diabetes mellitus with hyperglycemia (HCC) (Primary Dx); Hyperlipidemia, unspecified hyperlipidemia type; Vitamin D deficiency; Thyroid nodule 02/26/2025 11:15 AM CDT Procedure visit [facility] Ophthalmology [address], [address] [place] [address] Steven Edmonds MD Proliferative diabetic retinopathy of [...] on file Legal Sex Female 12:16 AM OIL AND GAS EXPLORATION TECHNICIAN Gender Identity Not on file Sexual [...] Priority Date/Time Associated Diagnosis Comments POCT GLUCOSE 76497 Routine 03/03/2025 1: 56 PM CDT Type [...] HEMOGLOBIN A1C Routine 10/23/2024 8 :29 AM OIL AND GAS EXPLORATION TECHNICIAN Type 1 diabetes mellitus with hyperglycemia [...] mL Route: intravitreal, Site: Left Eye [facility]: [id number], Lot: [id number], Expiration date: 04/05/2026, Waste: 0 mL Medication [...] * POCT hemoglobin A1c (10/23/2024 8:29 AM OIL AND GAS EXPLORATION TECHNICIAN) Hemoglobin A1C, POC 9.1 4.0 - 5.6 % Blood 10/23/2024 8:29 AM OIL AND GAS EXPLORATION TECHNICIAN Evelin Monzon NP POINT OF CARE TEST [...] BLOOD ORDERABLES Final Result Performing Organization Address [facility] Co de Phone Number [facility] Department [place] [address] * Albumin Creatinine Ratio, Urine (01/24/2024) Urine Sarah Haskins MD LAB URINE ORDERABLES Final Resu lt Performing Organization Address [facility]/ZIP Co de Phone Number EXTERNAL LAB * TSH (01/24/2024) Blood Sarah Haskins MD LAB BLOOD ORDERABLES Final Resu lt Performing Organization Address [facility] Co de Phone Number EXTERNAL LAB * Lipid panel (01/24/2024) Blood Sarah Haskins MD LAB BLOOD ORDERABLES Final Resu lt Performing Organization Address [facility] Co de Phone Number EXTERNAL [...] nipple by physician COMPARISON: Outside exams from Mina 09/13/2022to 07/08/2019 TECHNIQUE: Full field digital mammographic [...] - 07/12/2021 5:08 PM CDT Performed at: [address] [place] [id number] Practice Management Consultant: Link Myles PhD, Phone: [phone] us Lorrie Saavedra MD LAB MICROBIOLOGY - GENERAL ORD ERABLES Final Result [facility] from Last 3 Months or Most Recently Relevant to Health Maintenance Insurance [employer] GENERIC COPAY ASSIST WORKERS COMPENSATION GENERIC WORKERS COMPENSATION GENERIC Care Teams Counter Tacker Relationship Specialty Start Date End Date Jamaal Ibarra DO PCP - General 10/22/17
--- OUTSIDE RECORDS SUMMARY | 2025-05-24 16:04 | XMS_ITS | Encounter Summary ---
Author Organization [facility] Address [address] [place] [address] Phone Care Team Providers Care Plasterer Spray Gun Name Role Phone Jamaal Ibarra DO Primary Care Provider [phone]- [phone] Encounter Details Date Type Department Care Team (Late st Contact Info) Description 08/03/2021 Orders Only [facility] Rheumatology [address] [facility] Medicine 5th [place] [address] [place] [id number] Jana Medley CMA Social History Tobacco Use Types Packs/Day Years Used Date Smoking Tobacco: Never Comments Unknown Sex and Gender Information Value Date Recorded Sex Assigned at Not on file Legal Sex Female 12:16 AM ASSESSMENT NURSE PRACTITIONER Gender Identity Not on file Sexual Orientation Not on file documented as of this encounter Plan of Treatment Not on file documented as of this encounter Visit Diagnoses Not on filedocumented in this encounter Care Teams Plasterer Spray Gun Relationship Specialty Start Date End Date Jamaal Ibarra DO PCP - General 10/22/17 documented as of this encounter
--- OUTSIDE RECORDS SUMMARY | 2025-05-24 16:04 | XMS_ITS | Encounter Summary ---
Author Organization [facility] Address [address] [place] [address] Care Team Providers Care Home Appliance Washing Machine Mechanic Name Role Phone Jamaal Ibarra DO Primary Care Provider [phone] Reason for Visit * Diagnostic Imaging (Routine) - Closed Specialty Diagnoses / Procedures Referred By Liz borrero Referred To Contact Procedures Breast Imaging US Outside Reference Saul Ortiz NP Phone: tel: fax: Referral ID Status Reason Start Date Expiration Date Visits Re quested Visits Authorized [id number] Closed 10/16/2022 11/15/2023 1 1 Encounter Details Date Type Department Care Team (Late st Contact Info) Description 07/15/2019 Hospital Encounter [facility] [place], [place] [id number] Social History Tobacco Use Types Packs/Day Years [...] on file Legal Sex Female 12:16 AM CYCLE TOURING GUIDE Gender Identity Not on file Sexual Orientation [...] CDT) Impressions [facility] - 10/16/2022 11:47 AM CYCLE TOURING GUIDE These images are for Reference purposes only and have not been reviewed by [facility] Radiology. There will be no report generated by a [facility] Radiologist. Narrative [facility] - 10/16/2022 11:47 AM CYCLE TOURING GUIDE EXAMINATION: Images For Reference Purposes Only us Saul Ortiz NP IMG MAMMO PROCEDURES Final Result [facility] documented in this encounter Visit Diagnoses Not on filedocumented in this encounter Care Teams Home Appliance Washing Machine Mechanic Relationship Specialty Start Date End Date Jamaal Ibarra DO PCP - General 10/22/17 documented as of this encounter
--- OUTSIDE RECORDS SUMMARY | 2025-05-24 16:04 | XMS_ITS | Encounter Summary ---
Author Organization [facility] Healthcare Address [address] [place] [address] Care Team Providers Care Help Desk Internship Name Role Phone Jamaal Ibarra DO Primary Care Provider [phone]- [phone] Reason for Visit * Diagnostic Imaging (Routine) - Closed Specialty Diagnoses / Procedures Referred By Liz borrero Referred To Contact Procedures Breast Imaging Diagnostic Outside Reference Saul Ortiz NP Phone: tel: fax: Referral ID Status Reason Start Date Expiration Date Visits Re quested Visits Authorized [id number] Closed 10/16/2022 11/15/2023 1 1 Encounter Details Date Type Department Care Team (Late st Contact Info) Description 04/29/2020 12:05 AM CDT Hospital Encounter [facility] Radiology [facility] [address] [place] [address] Social History Tobacco Use Types Packs/Day Years [...] Legal Sex Female 12:16 AM CUSTOMER SERVICE CLERK Gender Identity Not on file Sexual [...] CDT) Impressions [facility] - 10/16/2022 11:47 AM CUSTOMER SERVICE CLERK These images are for Reference purposes only and have not been reviewed by [facility] Radiology. There will be no report generated by a [facility] Radiologist. Narrative [facility] - 10/16/2022 11:47 AM CUSTOMER SERVICE CLERK EXAMINATION: Images For Reference Purposes Only us Saul Ortiz NP IMG MAMMO PROCEDURES Final Result [facility] documented in this encounter Visit Diagnoses Not on filedocumented in this encounter Care Teams Help Desk Internship Relationship Specialty Start Date End Date Jamaal Ibarra DO PCP - General 10/22/17 documented as of this encounter
--- OUTSIDE RECORDS SUMMARY | 2025-05-24 16:04 | XMS_ITS | Encounter Summary ---
Author Organization [facility] Address [address] [place] [address] Care Team Providers Care Geriatric Nurse Practitioner Name Role Phone Jamaal Ibarra DO Primary Care Provider [phone]- [phone] Reason for Visit * Diagnostic Imaging (Routine) - Closed Specialty Diagnoses / Procedures Referred By Liz borrero Referred To Contact Procedures Breast Imaging US Outside Reference Saul Ortiz NP Phone: tel: fax: Referral ID Status Reason Start Date Expiration Date Visits Re quested Visits Authorized [id number] Closed 10/16/2022 11/15/2023 1 1 Encounter Details Date Type Department Care Team (Late st Contact Info) Description 04/29/2020 Hospital Encounter [facility] Radiology [facility] [address] [place] [address] Social History Tobacco Use Types Packs/Day [...] on file Legal Sex Female 12:16 AM CAMPUS ADMINISTRATIVE ASSISTANT Gender Identity Not on file Sexual [...] CDT) Impressions [facility] - 10/16/2022 11:47 AM CAMPUS ADMINISTRATIVE ASSISTANT These images are for Reference purposes only and have not been reviewed by [facility] Radiology. There will be no report generated by a [facility] Radiologist. Narrative [facility] - 10/16/2022 11:47 AM CAMPUS ADMINISTRATIVE ASSISTANT EXAMINATION: Images For Reference Purposes Only us Saul Ortiz NP IMG MAMMO PROCEDURES Final Result [facility] documented in this encounter Visit Diagnoses Not on filedocumented in this encounter Care Teams Geriatric Nurse Practitioner Relationship Specialty Start Date End Date Jamaal Ibarra DO PCP - General 10/22/17 documented as of this encounter
--- OUTSIDE RECORDS SUMMARY | 2025-05-24 16:04 | XMS_ITS | Clinical Summary ---
Author Organization [facility] Address [address] [place] [address] Phone Care Team Providers Care Sales Store Checker Name Role Phone JeanniesvetaJamaal jernigan Primary Care Provider [phone] Allergies Active Allergy Reactions Criticality Noted Date [...] 2 Active ergocalciferol (VITAMIN D2) 1.25 MG (73714 UT) capsule TAKE 1 CAPSULE BY MOUTH [...] Comments Blood Pressure 128/72 09/05/2022 8:31 AM COMMUNITY CASE MANAGER Pulse - - Temperature 36.5 C (97.7 F) 09/05/2022 8:31 AM COMMUNITY CASE MANAGER Respiratory Rate 18 09/05/2022 8:31 AM COMMUNITY CASE MANAGER Oxygen Saturation - - Inhaled Oxygen Concentration - - Weight 121 kg (267 lb) 09/05/2022 8:31 AM COMMUNITY CASE MANAGER Height 172.7 cm (5' 8) 09/05/2022 8:31 AM COMMUNITY CASE MANAGER Body Mass Index 40.6 09/05/2022 8:31 AM COMMUNITY CASE MANAGER Plan of Treatment Health Maintenance Due Date Last Done Comments Influenza Vaccine (#1) 2025 0, 07/30/2019, 07/16/2018, Additional history exists Insurance [facility] Care Teams Sales Store Checker Relationship Specialty Start Date End Date Jamaal Ibarra DO [address] [place] [address] PCP - General Internal Medicine 05/07/22
[2025-05-24 16:47] LABS: Albumin Level 3.8 g/dL (3.5-5.1); Anion Gap 9 mmol/L (4-12); Blood Urea Nitrogen 52 mg/dL (7-17); Calcium 10.4 mg/dL (8.4-10.2); Carbon Dioxide 23 mmol/L (22-30); Chloride 105 mmol/L (98-107); Estimated Glomerular Filt Rate 17; Glucose 142 mg/dL (65-110); Potassium 4.2 mmol/L (3.4-5.0); Sodium 137 mmol/L (137-145)
== END 2025-05-24 15:37 | disposition home or self-care (01) ==
LOC: ANHLAB 15:38
PROVIDERS: PCP Internal Medicine; Visit Provider Internal Medicine Nephrology
DX: N18.4 Chronic kidney disease, stage 4 (severe) (principal); R34 Anuria and oliguria
CPT/HCPCS: 36415; 80069

== ENCOUNTER 2025-07-11 22:50 | Emergency (ER) | payer OTHER, SELFPAY ==
--- OUTSIDE RECORDS SUMMARY | 2019-07-08 | XMS_ITS | Encounter Summary ---
Author Organization [facility] Healthcare Address [address] [place] [address] Care Team Providers Care Product Safety Tester Name Role Phone Jamaal Ibarra DO Primary Care Provider [phone] Reason for Visit * Diagnostic Imaging (Routine) - Closed Specialty Diagnoses / Procedures Referred By Liz borrero Referred To Contact Procedures Breast Imaging Screening Outside Reference Saul Ortiz NP Phone: tel: fax: Referral ID Status Reason Start Date Expiration Date Visits Re quested Visits Authorized [id number] Closed 10/16/2022 11/15/2023 1 1 Encounter Details Date Type Department Care Team (Late st Contact Info) Description 07/08/2019 Hospital Encounter [facility] [place] [address] Social History Tobacco Use Types Packs/Day Years Used Date Smoking Tobacco: Never Smokeless Tobacco: Never Personal Safety Answer Date Recorded Have you ever been in or are you currently in a harmful physical or emotional relationship or is someone making you feel afraid or unsafe? Denies 04/04/2024 Comments No Sex and Gender Information Value Date Recorded Sex Assigned at Not on file Legal Sex Female 12:16 AM LOCKER ROOM ATTENDANT Gender Identity Not on file Sexual Orientation Not on file documented as of this encounter Plan of Treatment Not on file documented as of this encounter Procedures Procedure Name Priority Date/Time Associated Diagnosis Comments BREAST IMAGING MG SCREENING OUTSIDE REFERENCE Routine 07/08/2019 12:00 AM CDT documented in this encounter Results * Breast Imaging Screening Outside Reference (07/08/2019 12:00 AM CDT) Impressions [facility] - 10/16/2022 11:48 AM LOCKER ROOM ATTENDANT These images are for Reference purposes only and have not been reviewed by [facility] Radiology. There will be no report generated by a [facility] Radiologist. Narrative [facility] - 10/16/2022 11:48 AM LOCKER ROOM ATTENDANT EXAMINATION: Images For Reference Purposes Only us Saul Ortiz NP IMG MAMMO PROCEDURES Final Result [facility] documented in this encounter Visit Diagnoses Not on filedocumented in this encounter Care Teams Product Safety Tester Relationship Specialty Start Date End Date Jamaal Ibarra DO PCP - General 10/22/17 documented as of this encounter
--- OUTSIDE RECORDS SUMMARY | 2019-07-15 | XMS_ITS | Encounter Summary ---
Author Organization [facility] Healthcare Address [address] [place] [address] Care Team Providers Care Coin Purse Framer Name Role Phone Jamaal Ibarra DO Primary Care Provider [phone] Reason for Visit * Diagnostic Imaging (Routine) - Closed Specialty Diagnoses / Procedures Referred By Liz borrero Referred To Contact Procedures Breast Imaging US Outside Reference Saul Ortiz NP Phone: tel: fax: Referral ID Status Reason Start Date Expiration Date Visits Re quested Visits Authorized [id number] Closed 10/16/2022 11/15/2023 1 1 Encounter Details Date Type Department Care Team (Late st Contact Info) Description 07/15/2019 Hospital Encounter [facility] [address] [place] [address] Social History Tobacco Use Types Packs/Day [...] on file Legal Sex Female 12:16 AM ZIGZAG TUNNEL ELASTIC OPERATOR Gender Identity Not on file Sexual [...] CDT) Impressions [facility] - 10/16/2022 11:47 AM ZIGZAG TUNNEL ELASTIC OPERATOR These images are for Reference purposes only and have not been reviewed by [facility] Radiology. There will be no report generated by a [facility] Radiologist. Narrative [facility] - 10/16/2022 11:47 AM ZIGZAG TUNNEL ELASTIC OPERATOR EXAMINATION: Images For Reference Purposes Only us Saul Ortiz NP IMG MAMMO PROCEDURES Final Result [facility] documented in this encounter Visit Diagnoses Not on filedocumented in this encounter Care Teams Coin Purse Framer Relationship Specialty Start Date End Date Jamaal Ibarra DO PCP - General 10/22/17 documented as of this encounter
--- OUTSIDE RECORDS SUMMARY | 2019-07-15 00:05 | XMS_ITS | Encounter Summary ---
Author Organization [facility] Healthcare Address [address] [place] [address] Care Team Providers Care Commercial Loan Assistant Name Role Phone Jamaal Ibarra DO Primary Care Provider [phone]- [phone] Reason for Visit * Diagnostic Imaging (Routine) - Closed Specialty Diagnoses / Procedures Referred By Liz borrero Referred To Contact Procedures Breast Imaging Diagnostic Outside Reference Saul Ortiz NP Phone: tel: fax: Referral ID Status Reason Start Date Expiration Date Visits Re quested Visits Authorized [id number] Closed 10/16/2022 11/15/2023 1 1 Encounter Details Date Type Department Care Team (Late st Contact Info) Description 07/15/2019 12:05 AM CDT Hospital Encounter [facility] Radiology [facility] [address] [place] [phone] Social History Tobacco Use Types Packs/Day Years [...] on file Legal Sex Female 12:16 AM 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 There will be no report generated by a [facility] Radiologist. Narrative [facility] - 10/16/2022 11:47 AM WEIR FISHERMAN EXAMINATION: Images For Reference Purposes Only us Saul Ortiz NP IMG MAMMO PROCEDURES Final Result [facility] documented in this encounter Visit Diagnoses Not on filedocumented in this encounter Care Teams Commercial Loan Assistant Relationship Specialty Start Date End Date Jamaal Ibarra DO PCP - General 10/22/17 documented as of this encounter
--- OUTSIDE RECORDS SUMMARY | 2020-04-29 | XMS_ITS | Encounter Summary ---
Author Organization [facility] Healthcare Address [address] [place] [address] Care Team Providers Care Account Services Associate Name Role Phone Jamaal Ibarra DO Primary Care Provider [phone] Reason for Visit * Diagnostic Imaging (Routine) - Closed Specialty Diagnoses / Procedures Referred By Liz borrero Referred To Contact Procedures Breast Imaging US Outside Reference Saul Ortiz NP Phone: tel: fax: Referral ID Status Reason Start Date Expiration Date Visits Re quested Visits Authorized [id number] Closed 10/16/2022 11/15/2023 1 1 Encounter Details Date Type Department Care Team (Late st Contact Info) Description 04/29/2020 Hospital Encounter [facility] Radiology [facility] [address] [place] [address] Social History Tobacco Use Types Packs/Day [...] on file Legal Sex Female 12:16 AM FIRST HELPER Gender Identity Not on file Sexual Orientation [...] CDT) Impressions [facility] - 10/16/2022 11:47 AM FIRST HELPER These images are for Reference purposes only and have not been reviewed by [facility] Radiology. There will be no report generated by a [facility] Radiologist. Narrative [facility] - 10/16/2022 11:47 AM FIRST HELPER EXAMINATION: Images For Reference Purposes Only us Saul Ortiz NP IMG MAMMO PROCEDURES Final Result [facility] documented in this encounter Visit Diagnoses Not on filedocumented in this encounter Care Teams Account Services Associate Relationship Specialty Start Date End Date Jamaal Ibarra DO PCP - General 10/22/17 documented as of this encounter
--- OUTSIDE RECORDS SUMMARY | 2020-04-29 00:05 | XMS_ITS | Encounter Summary ---
Author Organization [facility] Healthcare Address [address] [place] [address] Care Team Providers Care Back Panel Padder Name Role Phone Jamaal Ibarra DO Primary Care Provider +1- [phone] Reason for Visit * Diagnostic Imaging (Routine) - Closed Specialty Diagnoses / Procedures Referred By Liz borrero Referred To Contact Procedures Breast Imaging Diagnostic Outside Reference Saul Ortiz NP Phone: tel: fax: Referral ID Status Reason Start Date Expiration Date Visits Re quested Visits Authorized [id number] Closed 10/16/2022 11/15/2023 1 1 Encounter Details Date Type Department Care Team (Late st Contact Info) Description 04/29/2020 12:05 AM CDT Hospital Encounter [facility] Radiology [facility] [address] [place] [address] Social History Tobacco Use Types Packs/Day Years [...] on file Legal Sex Female 12:16 AM PAD TUFTER Gender Identity Not on file Sexual Orientation [...] CDT) Impressions [facility] - 10/16/2022 11:47 AM PAD TUFTER These images are for Reference purposes only and have not been reviewed by [facility]. There will be no report generated by a [facility] Radiologist. Narrative RAD_M[facility] - 10/16/2022 11:47 AM PAD TUFTER EXAMINATION: Images For Reference Purposes Only us Saul Ortiz NP IMG MAMMO PROCEDURES Final Result [facility] documented in this encounter Visit Diagnoses Not on filedocumented in this encounter Care Teams Back Panel Padder Relationship Specialty Start Date End Date Jamaal Ibarra DO PCP - General 10/22/17 documented as of this encounter
--- NOTE | ~2025-07-11 | CT_ITS ---
EXAMINATION: CT abdomen pelvis w con DATE: 07/12/2025 02:44 INDICATION: Blood in stool. TECHNIQUE: Computed tomography (CT) of the abdomen and pelvis was performed with 100 mL Omnipaque 350 intravenous contrast. Automated exposure control and iterative reconstruction technique were employed. The dose-length product was 1532.32 mGy-cm. COMPARISON: CT abdomen and pelvis 05/23/2025 FINDINGS: The visualized portions of lung bases demonstrate mild atelectasis. No pleural effusion. Cardiomegaly is noted. There is a trace pericardial effusion. There are areas of hypodensity in left hepatic lobe. There are changes of cholecystectomy. Calcifications in the spleen are consistent with old granulomatous disease. The pancreas, adrenal glands, and left kidney are normal. There is a 4 mm stone in right kidney. There is liquid stool in the colon suggesting diarrhea. The appendix is normal. There are no pathologically enlarged lymph nodes. There is no free intraperitoneal fluid. There is a periumbilical hernia containing fat. There is moderate thoracic spondylosis and mild lumbar spondylosis. There is mild chronic anterior wedging of multiple thoracic vertebral bodies. IMPRESSION: 1. New areas of hypodensity in the left hepatic lobe, probably steatosis. Consider abdomen MRI without and with contrast. 2. Periumbilical hernia containing fat. Reviewed, dictated and finalized at location E. IMPRESSION: 1. New areas of hypodensity in the left hepatic lobe, probably steatosis. Consi sofia abdomen MRI without and with contrast. 2. Periumbilical hernia containing fat.
[2025-07-11 22:52] VITALS: BP 139/74; PULSE 84; RESP 15; TEMP 36.6; O2SAT 98
[2025-07-12 00:09] LABS: Hematocrit 39.9 % (37.0-47.0); Hemoglobin 12.6 g/dL (12.0-15.0); Immature Granulocyte Percent A 0.3 % (0-0.5); Lymphocytes Absolute Auto 1.93 K/mm3 (0.9-3.2); Mean Corpuscular HGB Conc 31.6 g/dl (32-36); Mean Corpuscular Hemoglobin 28.2 pg (26-34); Mean Corpuscular Volume 89.3 fl (80-100); Nucleated Red Blood Cells Absolute Auto 0.000 K/mm3 (0.0-0.012); Nucleated Red Blood Cells Perc 0.0 % (0.0-0.2); Platelet Count Result 214 k/mm3 (150-375); Red Blood Count 4.47 M/mm3 (4.2-5.4); White Blood Count 11.6 K/mm3 (4.5-10.0)
[2025-07-12 00:21] LABS: Alanine Aminotransferase 18 U/L (6-35); Albumin Level 4.1 g/dL (3.5-5.1); Alkaline Phosphatase 120 U/L (38-126); Anion Gap 12 mmol/L (4-12); Aspartate Amino Transferase 19 U/L (14-36); Bilirubin,Total 0.6 mg/dL (0.2-1.3); Blood Urea Nitrogen 51 mg/dL (7-17); Calcium 10.6 mg/dL (8.4-10.2); Carbon Dioxide 21 mmol/L (22-30); Chloride 104 mmol/L (98-107); Estimated Glomerular Filt Rate 14; Glucose 281 mg/dL (65-110); Potassium 4.5 mmol/L (3.4-5.0); Sodium 137 mmol/L (137-145); Total Protein 7.4 g/dL (6.3-8.2)
[2025-07-12 00:35] LABS: INR 1.0; Prothrombin Time 13.3 Seconds (11.1-14.7)
[2025-07-12 00:36] LABS: Partial Thromboplastin Time 27.2 Seconds (22.3-36.8)
--- OUTSIDE RECORDS SUMMARY | 2025-07-12 01:52 | XMS_ITS | Encounter Summary ---
Author Organization [facility] Address [address] [place] [address] Phone Care Team Providers Care Spot Machine Operator Name Role Phone Jamaal Ibarra DO Primary Care Provider [phone] Encounter Details Date Type Department Care Team (Latest Contact Info) Description 10/14/2019 Orders Only [facility] Scanning, Provider Social History Tobacco Use Types Packs/Day Years Used Date Smoking Tobacco: Never Comments Unknown Sex and Gender Information Value Date Recorded Sex Assigned at Not on file Legal Sex Female 12:16 AM PRODUCT PROMOTER RETAIL PET Gender Identity Not on file Sexual Orientation Not on file documented as of this encounter Plan of Treatment Not on file documented as of this encounter Procedures Procedure Name Priority Date/Time Associated Diagnosis Comments SCAN - LABS 10/14/2019 documented in this encounter Results * SCAN - LABS (10/14/2019) Provider Scanning Final Result documented in this encounter Visit Diagnoses Not on filedocumented in this encounter Care Teams Spot Machine Operator Relationship Specialty Start Date End Date Jamaal Ibarra DO PCP - General 10/22/17 documented as of this encounter
--- OUTSIDE RECORDS SUMMARY | 2025-07-12 01:52 | XMS_ITS | Clinical Summary ---
Author Organization [facility] [employer] Address [address] [place] [address] Care Team Providers Care Library Supervisor Name Role Phone Lebron Pugh V. DO Unavailable Jamaal Ibarra DO Primary Care Provider [phone]- [phone] Source Comments [facility],non-owned Affiliates and Associated Physician Practices is amultiple site organization consisting of ambulatory clinics and hospital sitesin [place], [place], [place] and [place]. This disclosure is being madepursuant to the Care Everywhere program and may not contain all information available regarding this patient. Last updated 18.[facility] Allergies Active Allergy Reactions Criticality Noted [...] tablet 2 Active vitamin D, ergocalciferol, (DRISDOL) 51869 UNITS capsule 1 Active gabapentin (NEURONTIN) 300 MG capsule 2 Active simvastatin (ZOCOR) 20 MG tablet 1 Active traMADol (ULTRAM) 50 MG tablet 1 014 Active traZODone (DESYREL) 50 MG tablet 6 Active zolpidem (AMBIEN) 10 MG tablet 5 Active megestrol (MEGACE) 40 MG tablet Take 1 Tab by mouth once daily. 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 on file Not on file Not on file Last Filed Vital Signs Vital Sign Reading Time Taken Comments Blood Pressure 126/74 10/21/2014 11:57 AM TRAFFIC SIGNAL SUPERVISOR MAINTENANCE Pulse 102 09/16/2013 1:06 PM TRAFFIC SIGNAL SUPERVISOR MAINTENANCE Temperature 36.8 C (98.2 F) 09/16/2013 1:06 PM TRAFFIC SIGNAL SUPERVISOR MAINTENANCE Respiratory Rate 20 09/16/2013 1:06 PM TRAFFIC SIGNAL SUPERVISOR MAINTENANCE Oxygen Saturation 98% 09/16/2013 1:06 PM TRAFFIC SIGNAL SUPERVISOR MAINTENANCE Inhaled Oxygen Concentration - - Weight 89.8 kg (198 lb) 10/21/2014 11:57 AM TRAFFIC SIGNAL SUPERVISOR MAINTENANCE Height 172.7 cm (5' 8) 10/21/2014 11:57 AM TRAFFIC SIGNAL SUPERVISOR MAINTENANCE Body Mass Index 30.11 10/21/2014 11:57 AM TRAFFIC SIGNAL SUPERVISOR MAINTENANCE Plan of Treatment Health Maintenance Due Date [...] - 19+ 3-dose series) 10/16/2013 08/21/2013, 07/09/2012 DTAP/TDAP/TD VACCINES (3 - Td or Tdap) 07/09/2022 07/09/2012, 09/17/2005 DEPRESSION SCREENING 10/07/2024 ZOSTER VACCINE (1 of 2) 2024 MAMMOGRAM 01/11/2025 01/11/2023, 09/06, 08/04/2010 COVID-19 VACCINE (1 - season) 2025 INFLUENZA VACCINE (#1) 2025 , 07/30/2019, 07/16/2018, [...] Procedure Name Priority Date/Time Associated Diagnosis Comments MAMMO BILAT SCREENING Routine 09/22/2013 8:09 AM TRAFFIC SIGNAL SUPERVISOR MAINTENANCE Screening COMPREHENSIVE METABOLIC PANEL Routine 08/22/2013 8:00 AM TRAFFIC SIGNAL SUPERVISOR MAINTENANCE DM w/o Complication Type II, Uncontrolled HTN (hypertension), benign Abdominal pain, RUQ (right upper quadrant) Ketonuria HEMOGLOBIN A1C Routine 08/22/2013 8:00 AM TRAFFIC SIGNAL SUPERVISOR MAINTENANCE DM w/o Complication Type II, Uncontrolled MICROALB/CREAT RATIO URINE RANDOM PANEL Routine 08/21/2013 9:29 AM TRAFFIC SIGNAL SUPERVISOR MAINTENANCE DM w/o Complication Type II, Uncontrolled from Last 3 Months or Most Recently Relevant to Health Maintenance Results * MAMM SCREENING DIGITAL IMAGE BILAT G0202 (09/22/2013 8:09 AM TRAFFIC SIGNAL SUPERVISOR MAINTENANCE) Anatomical Region Laterality Modality Breast Bilateral Mammography 09/22/2013 11:5 3 AM TRAFFIC SIGNAL SUPERVISOR MAINTENANCE Impressions 09/22/2013 11:56 AM TRAFFIC SIGNAL SUPERVISOR MAINTENANCE No malignant abnormality identified. No significant change. BI-RADS category 1. Negative. RECOMMENDATIONS: Routine mammograms in one year. Narrative 09/22/2013 11:56 AM TRAFFIC SIGNAL SUPERVISOR MAINTENANCE Screening mammogram: HISTORY: Screening mammogram. Two views [...] * (ABNORMAL) HEMOGLOBIN A1C (08/22/2013 8:00 AM TRAFFIC SIGNAL SUPERVISOR MAINTENANCE) Hemoglobin A1c 12.6(H) <5.7 % of total [...] of diabetes for children. Test Performed at: [facility] [address] [place] [address] PAPO BENNETT DO,MPH Whole blood specimen (specimen) BLOOD SPECIMEN / Unknown 08/22/2013 4:53 AM TRAFFIC SIGNAL SUPERVISOR MAINTENANCE Salma Viet Hunt SHOE SPRAYER-CHIEF TRANSFER AND PUMPHOUSE OPERATOR LAB - CHEMISTRY ORDERA BLES Final Result [facility] [id number] [place] [address] * (ABNORMAL) COMPREHENSIVE METABOLIC PANEL (08/22/2013 8:00 AM TRAFFIC SIGNAL SUPERVISOR MAINTENANCE) Glucose 312(H) 65 - 99 mg/dL [facility] [...] 29 U/L [facility] Comment: Test Performed at: [facility] [address] PAPO BENNETT DO,MPH Blood specimen (specimen) BLOOD SPECIMEN / Unknown 08/22/2013 4:53 AM TRAFFIC SIGNAL SUPERVISOR MAINTENANCE Salma Hunt SHOE SPRAYER-CHIEF TRANSFER AND PUMPHOUSE OPERATOR LAB - CHEMISTRY ORDERA BLES Final Result [facility] [id number] [place] [address] * (ABNORMAL) MICROALB/CREAT RATIO URINE RANDOM PANEL (08/21/2013 9:29 AM TRAFFIC SIGNAL SUPERVISOR MAINTENANCE) Creatinine Urine 129 20 - 320 mg/dL [...] within a diagnostic category. Test Performed at: [facility] [place] [address] PAPO BENNETT DO,MPH Urine specimen (specimen) URINE SPECIMEN OBTAINED BY CLEAN CATCH PROCEDURE / Unknown 08/21/2013 9:29 AM TRAFFIC SIGNAL SUPERVISOR MAINTENANCE 08/22/2013 4:16 AM TRAFFIC SIGNAL SUPERVISOR MAINTENANCE us Salma Hunt SHOE SPRAYER-CHIEF TRANSFER AND PUMPHOUSE OPERATOR LAB - URINE CHEMISTRY ORDERABLES Final Result [facility] [address] [place] [address] from Last 3 Months or Most Recently Relevant to Health Maintenance Insurance ANTHEM ANTHEM Advance Directives * FULL RESUSCITATION (Latest Code Status on File) Date Activated Date Inactivated Comments 05/06/2011 1:35 AM 05/08/2011 5:46 AM Care Teams Library Supervisor Relationship Specialty Start Date End Date Jamaal Ibarra DO [address] [place] [phone] PCP - General 06/01/21 Lebron Pugh DO [address] [place] [address] Oncology 06/23/07
--- OUTSIDE RECORDS SUMMARY | 2025-07-12 01:52 | XMS_ITS | Clinical Summary ---
Author Organization [facility] Address [address] [place] [address] Phone Care Team Providers Care Mgmt Specialist Name Role Phone JeanniesvetaJamaal jernigan Primary Care Provider [phone] Allergies Active Allergy Reactions Criticality Noted Date [...] 2 Active ergocalciferol (VITAMIN D2) 1.25 MG (18377 UT) capsule TAKE 1 CAPSULE BY MOUTH [...] 10/21/2014 Fibromyalgia 06/09/2014 Anemia 04/27/2014 Polyarthropathy 04/27/2014 Post-traumatic stress disorder 04/27/2014 Iron deficiency anemia 08/08/2011 [...] Comments Blood Pressure 128/72 09/05/2022 8:31 AM BROWNING PROCESSOR Pulse - - Temperature 36.5 C (97.7 F) 09/05/2022 8:31 AM BROWNING PROCESSOR Respiratory Rate 18 09/05/2022 8:31 AM BROWNING PROCESSOR Oxygen Saturation - - Inhaled Oxygen Concentration - - Weight 121 kg (267 lb) 09/05/2022 8:31 AM BROWNING PROCESSOR Height 172.7 cm (5' 8) 09/05/2022 8:31 AM BROWNING PROCESSOR Body Mass Index 40.6 09/05/2022 8:31 AM BROWNING PROCESSOR Plan of Treatment Health Maintenance Due Date Last Done Comments Influenza Vaccine (#1) 2025 0, 07/30/2019, 07/16/2018, Additional history exists Insurance [facility] Care Teams Mgmt Specialist Relationship Specialty Start Date End Date Jamaal Ibarra DO [address] [place] [address] PCP - General Internal Medicine 05/07/22
--- OUTSIDE RECORDS SUMMARY | 2025-07-12 01:52 | XMS_ITS | Encounter Summary ---
Author Organization [facility] Address [address] [place] [address] Phone Care Team Providers Care Power Technician Name Role Phone Jamaal Ibarra DO Primary Care Provider [phone] Encounter Details Date Type Department Care Team (Late st Contact Info) Description 10/18/2021 Telephone [facility] Medicine Rheumatology [address] [place] [address] 5th [place] [address] [place] [id number] Era Taylor CMA Social History Tobacco Use Types Packs/Day Years Used Date Smoking Tobacco: Never Smokeless Tobacco: Never Comments Unknown Sex and Gender Information Value Date Recorded Sex Assigned at Not on file Legal Sex Female 12:16 AM WELLNESS SPECIALIST Gender Identity Not on file Sexual Orientation Not on file documented as of this encounter Plan of Treatment Not on file documented as of this encounter Visit Diagnoses Not on filedocumented in this encounter Care Teams Power Technician Relationship Specialty Start Date End Date Jamaal Ibarra DO PCP - General 10/22/17 documented as of this encounter
--- OUTSIDE RECORDS SUMMARY | 2025-07-12 01:52 | XMS_ITS | Clinical Summary ---
Author Organization [facility] Address [address] [place] [address] Care Team Providers Care Shaker Out Name Role Phone Jamaal Ibarra DO Primary Care Provider [phone] Allergies Active Allergy Reactions Criticality Noted Date [...] DAILY 90 tablet 3 11/24/19 25 Active insulin aspart (NovoLOG) 100 unit/mL [...] 25 Active FreeStyle Sharita 3 Plus Sensor deviceIndications :Type 1 diabetes mellitus with hyperglycemia (HCC) Use a new sensor every 2 weeks for glucose monitoring 2 each 03/03/20 25 Active glucagon (Baqsimi) 3 mg/actuation spray,non-aerosol Indications:Type 1 diabetes mellitus with hyperglycemia (HCC) mg (one actuation) into a single nostril for low blood sugar that does not correct with oral intake or if confused; if no response, may repeat in 15 minutes using a new intranasal device. 2 each 03/03/20 25 Active insulin lispro-aabc (LYUMJEV) 100 unit/mL pen for injectionIndicati ons:Type 1 diabetes mellitus [...] insulin lispro (HumaLOG) 100 unit/mL pen for injectionIndicati ons:Type 1 diabetes mellitus [...] daily 75 mL 3 04/26/20 25 Active pioglitazone (ACTOS) 15 mg tabletIndications :Type 1 diabetes mellitus with hyperglycemia (HCC) TAKE 1 TABLET(15 MG) BY MOUTH DAILY 90 tablet 1 07/09/20 25 Active pioglitazone (ACTOS) 15 mg tabletIndications :Type 1 diabetes mellitus with hyperglycemia (HCC) TAKE 1 TABLET(15 MG) BY MOUTH DAILY 90 tablet 1 12/16/19 25 2024 Discontinued Hospital, Clinic, or Other Facility Administered Medication Ordered Dose Route Frequency Start Date End Date Status aflibercept syringe (EYLEA HD) 8 mg/0.07 mL intra-ocular injection 8 mgIndications:Prolif erative diabetic retinopathy of left eye with macular edema associated with type 1 diabetes mellitus (HCC) 8 mg One-Time Injection 07/02/2025 07/02/2025 Ended Active Problems Problem Noted Date Diagnosed Date Diabetes mellitus with nephropathy 09/17/2024 Vitreous hemorrhage of left eye 04/05/2024 Thyroid nodule 01/22/2024 SHANICE (obstructive sleep apnea) 01/27/2023 Mass of right breast 12/19/2022 Chronic fatigue 09/06/2021 Assessment & Plan (09/06/2021 9:49 AM DISPATCHER REFINERY): -Fatigue is most likely multifactorial as she [...] 09/16/2017 Assessment & Plan (09/06/2021 9:45 AM DISPATCHER REFINERY): -Taking weekly Vitamin D -Will repeat Vitamin D level Type 1 diabetes mellitus with hyperglycemia 03/2017 Nocturia 06/12/2017 Gastroesophageal reflux disease 10/27/2014 Seronegative rheumatoid arthritis 10/27/2014 Swelling of hand 10/27/2014 Fibroid 10/21/2014 Fibromyalgia 06/09/2014 Hypertension 04/27/2014 Assessment & Plan (09/06/2021 9:45 AM DISPATCHER REFINERY): -BP today is 121/81 -Will continue same antihypertensive medications at this time. Hyperlipidemia 04/27/2014 Assessment & Plan (09/06/2021 9:45 AM DISPATCHER REFINERY): -Will continue statin as it is being [...] 01/22/2023 Assessment & Plan (09/06/2021 9:45 AM DISPATCHER REFINERY): -Currently taking MDI -A1C on 09/06/21 was [...] 06/12/201701/05 Assessment & Plan (09/06/2021 9:07 AM DISPATCHER REFINERY): -States she has been off of LT4 for 2 years -Will repeat TFT. Encounters Date Type Department Care Team Description 07/02/2025 11:15 AM CDT Procedure visit [facility] Medicine Ophthalmology 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 [facility] [address], [address] [place] [phone] Steven Edmonds MD Pre Cert (2024) 04/26/2025 Orders Only [facility] Endocrinology Metabolism and Lipid [address] [facility] [address] [facility] 13th [place] [address] [place] [phone] Tavia Fung RMA Type 1 diabetes mellitus with hyperglycemia (HCC) (Primary Dx) 04/26/2025 Telephone [facility] Metabolism and Lipid [address] [facility] [address] [facility] [address]th [place] [address] [place] [phone] Tavia Fugn RMA Medication Change 04/19/2025 Telephone [facility] Endocr[facility] Metabolism and Lipid [address] [facility] 13th [place] [address] [place] [phone] Tavia Fung RMA Prior Auth (Novolog FlexPen); medication change from Last 3 Months Immunizations Immunization Administration [...] on file Legal Sex Female 12:16 AM DISPATCHER REFINERY Gender Identity Not on file Sexual Orientation [...] 04/04/2025 04/04/2024, 06/09, 01/03/2021, Additional history exists Covid-19 Vaccine (3 - 2024-2 6 season) 2025 01/04/2021, 12/14/2020 Influenza Vaccine (#1) 2025 , 08/03/2022, 09/08/2021, Additional history exists Hemoglobin A1C 07/31/2025 01/29/2025, 10/07, 01/22/2024, Additional history exists TSH Level 01/29/2026 01/29/2025, 01/05, 01/03/2021, Additional history exists Dilated Eye Exam 07/02/2026 07/02/2025, , 10/23/2024, Additional history exists Hepatitis B Screening Completed 07/28/2019 , 08/21/2013, 07/09/2012 Hepatitis C Screening Completed 07/06/2021 Procedures Procedure Name Priority Date/Time Associated Diagnosis Comments INTRAVITREAL INJECTION, PHARMACOLOGIC AGENT - OS - LEFT EYE Routine 07/02/2025 4:47 PM CDT 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 The patient understood, agreed and wished to proceed. Timeout was completed verifying the patient, procedure, laterality and allergies. Anesthesia Subconjunctival anesthesia was used, Topical anesthesia was used. Anesthetic medications included Lidocaine 2%, Proparacaine 0.5%. Intravitreal Injection, Pharmacologic Agent Preparation included 5% betadine to ocular surface. A supplied needle was used. Pharmaceutical Medication: 8 mg aflibercept syringe 8 mg/0.07 mL Route: intravitreal, Site: Left Eye [facility]: 24571-214-79, Lot: [id number], Expiration date: 03/06/2026, Waste: 0 mL Medication Billing The medication administered today will not be billed to the patient or insurance. The medication administered today was a sample. The patient will not be utlizing the patient assistance program. Post-op Post injection exam found visual acuity is at least hand motion, no retinal detachment. the patient tolerated the procedure. there were no complications during today's treatment. The patient received written and verbal post procedure care education. Post injection medications were not given. The attending physician was present for the entire procedure. Notes Consent signed for TOR HD os today, 07/02/25 Sample used today b/c of insurance cost [email or web address] paperwork signed today, 07/02/25 Steven Edmonds MD OPHTH CLINIC PROCEDURES Fi nal Result * OCT, Retina - OU - Both Eyes (07/02/2025 11:48 AM CDT) Anatomical Region Laterality Modality Head Optical Coherenc e Tomography Narrative 07/02/2025 11:48 AM CDT Right Eye Scan locations included subfoveal. Left Eye Quality was good. Scan locations included subfoveal. Notes OD: no signal OS: no CME; no VH; no central DME us Steven Edmonds MD OPHTH TOMOGRAPHY Final Res ult * POCT hemoglobin A1c (10/23/2024 8:29 AM DISPATCHER REFINERY) Hemoglobin A1C, POC 9.1 4.0 - 5.6 % Blood 10/23/2024 8:29 AM DISPATCHER REFINERY Evelin Monzon NP POINT OF CARE TEST [...] Dorman MD LAB BLOOD ORDERABLES Final Result [facility] [address] [place] [address] * Albumin Creatinine Ratio, Urine (01/24/2024) Urine Sarah Haskins MD LAB URINE ORDERABLES Final Resu lt EXTERNAL LAB * TSH (01/24/2024) Blood Sarah Haskins MD LAB BLOOD ORDERABLES Final Resu lt Performing Organization Address [facility]/ZIP Co de Phone Number EXTERNAL LAB * Lipid panel (01/24/2024) Blood Sarah Haskins MD LAB BLOOD ORDERABLES Final Resu lt Performing Organization Address [facility]/ZIP Co de Phone Number EXTERNAL [...] nipple by physician COMPARISON: Outside exams from [place] 09/13/2022to 07/08/2019 TECHNIQUE: Full field digital mammographic [...] her questions were answered. us [address] MAN IMG MAMMO PROCEDURES Final Result * Hepatitis panel, acute (07/06/2021 12:52 PM CDT) Hep A IgM Negative Negative [facility] - 01 HepBsAg Negative Negative [facility] - 01 Hep B core IgM Negative Negative [facility] - 01 Hep C Ab <0.1 0.0 - 0.9 s/co ratio [facility] - 01 07/06/2021 12:5 2 PM CDT 07/06/2021 Narrative [facility] - 07/12/2021 5:08 PM CDT Performed at: 01 - [facility] [address] [id number] Clinical Services Manager: Link Myles PhD, Phone: [phone] us Lorrie Saavedra MD LAB MICROBIOLOGY - GENERAL ORD ERABLES Final Result [facility] - 01 from Last 3 Months or Most Recently Relevant to Health Maintenance Insurance [employer] CHOICE PLUS WORKERS COMPENSATION GENERIC WORKERS COMPENSATION GENERIC Care Teams Shaker Out Relationship Specialty Start Date End Date Jamaal Ibarra DO PCP - General 10/22/17
--- OUTSIDE RECORDS SUMMARY | 2025-07-12 01:52 | XMS_ITS | Encounter Summary ---
Author Organization [facility] Address [address] [place] [address] Phone Care Team Providers Care Fiscal Analyst Name Role Phone Jamaal Ibarra DO Primary Care Provider [phone]- [phone] Encounter Details Date Type Department Care Team (Late st Contact Info) Description 08/03/2021 Orders Only [facility] Medicine Rheumatology [address] [facility] [address] [facility] 5th [place] [address] [place] [address] Jana Medley CMA Social History Tobacco Use Types Packs/Day Years Used Date Smoking Tobacco: Never Comments Unknown Sex and Gender Information Value Date Recorded Sex Assigned at Not on file Legal Sex Female 12:16 AM LEARNING CENTER INSTRUCTOR Gender Identity Not on file Sexual Orientation Not on file documented as of this encounter Plan of Treatment Not on file documented as of this encounter Visit Diagnoses Not on filedocumented in this encounter Care Teams Fiscal Analyst Relationship Specialty Start Date End Date Jamaal Ibarra DO PCP - General 10/22/17 documented as of this encounter
--- OUTSIDE RECORDS SUMMARY | 2025-07-12 01:52 | XMS_ITS | Clinical Summary ---
Author Organization [facility] Address [address] [place] [address] Care Team Providers Care Pipe Or Steam Fitter Furnace Installer Name Role Phone Jamaal Ibarra DO [...] Encounters Date Type Department Care Team Description 06/23/2025 External Device Data [facility] ABSTRACTION Provider, Abstract 06/22/2025 External Device Data [facility] ABSTRACTION Provider, Abstract 06/08/2025 External Device Data [facility] ABSTRACTION Provider, Abstract 06/01/2025 External Device Data [facility] ABSTRACTION Provider, Abstract 05/18/2025 External Device Data [facility] ABSTRACTION Provider, [...] on file 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 AVG GLUCOSE, A1C 194 mg/dL 01/29/2025 3:35 PM CDT [facility] Blood Venipuncture / Unknown 01/29/2025 2:08 PM CDT 01/29/2025 3:15 PM CDT Narrative [facility] - 01/29/2025 3:35 PM CDT HGB A1C INTERPRETATION NORMAL: <5.7% PRE-DIABETES: 5.7 - 6.4% DIABETES: 6.5% OR GREATER Michael Hoskins MD CHEMISTRY ORDERABLES Final R esult [facility] [id number] [address] [place] [address] from Last 3 Months or Most Recently Relevant to Health Maintenance Insurance [facility] BLUE PREFERRED RX [employer] Commercial Advance Directives For more information, please contact: [phone] * Full Code (Latest Code Status on File) Date Activated Date Inactivated Comments 01/29/2025 1:42 PM 02/02/2025 12:23 PM Care Teams Pipe Or Steam Fitter Furnace Installer Relationship Specialty Start Date End Date Yablonsky, Jamaal Antoni, DO [address] [address] PCP - General Internal Medicine 07/11/18
--- OUTSIDE RECORDS SUMMARY | 2025-07-12 01:52 | XMS_ITS | Clinical Summary ---
Author Organization [facility] Address [address] [place] [address] Care Team Providers Care Shrimp Pond Laborer Name Role Phone Jamaal Ibarra DO Primary Care Provider [phone] Allergies Active Allergy Reactions Criticality Noted Date Comments Latex Rash Low 05/24/2025 Metoclopramide Itching Medium 05/24/2025 Medications atorvastatin (LIPITOR) 10 MG tablet Take 2.5 tablets (25 mg total) by mouth daily. Active amLODIPine (NORVASC) 10 MG tablet Take 1 tablet (10 mg total) by mouth daily. Active amitriptyline (ELAVIL) 25 MG tablet Take 2 tablets (50 mg total) by mouth nightly at bedtime. Active ALPRAZolam (XANAX) 0.5 MG tablet Take 1 tablet (0.5 mg total) by mouth 3 (three) times daily. Active acyclovir (ZOVIRAX) 400 MG tablet Take 1 tablet (400 mg total) by mouth 2 (two) times daily. Active carvedilol (COREG) 6.25 MG tablet Take 1 tablet (6.25 mg total) by mouth 2 (two) times daily. Active chlorthalidone (HYGROTEN) 25 MG tablet Take 1 tablet (25 mg total) by mouth daily. Active vitamin D3 (CHOLECALCIFEROL) 125 mcg Tab Take 1 tablet (125 mcg total) by mouth daily. Active coenzyme Q10 (CO Q-10) 50 MG capsule Take 2 capsules (100 mg total) by mouth daily. Active dicyclomine (BENTYL) 20 MG tablet Take 1 tablet (20 mg total) by mouth daily as needed (PRN). Active metroNIDAZOLE (FLAGYL) 500 MG tablet Take 1 tablet (500 mg total) by mouth 3 (three) times daily. Active lactulose (KRISTALOSE) 10 g packet Take 5 g by mouth 2 (two) times daily. Active ondansetron (ZOFRAN-ODT) 4 MG disintegrating tablet Take 1 tablet (4 mg total) by mouth every 8 (eight) hours as needed for Nausea. Active pantoprazole EC (PROTONIX) 40 MG tablet Take 1 tablet (40 mg total) by mouth daily. Active pioglitazone (ACTOS) 15 MG tablet Take 1 tablet (15 mg total) by mouth daily. Active Plecanatide 3 MG Tab Take 3 mg by mouth every 30 (thirty) days. Active prazosin (MINIPRESS) 1 MG capsule Take 2 capsules (2 mg total) by mouth nightly at bedtime. Active sertraline (ZOLOFT) 100 MG tablet Take 1 tablet (100 mg total) by mouth daily. Active spironolactone (ALDACTONE) 25 MG tablet Take 1 tablet (25 mg total) by mouth daily. Active sucralfate (CARAFATE) 1 G tablet Take 1 tablet (1 g total) by mouth 4 (four) times daily before meals and nightly. Active topiramate (TOPAMAX) 50 MG Tab Take 1 tablet (50 mg total) by mouth 2 (two) times daily. Active traZODone (DESYREL) 50 MG tablet Take 1 tablet (50 mg total) by mouth nightly at bedtime. Active zolpidem (AMBIEN) 10 MG tablet Take 1 tablet (10 mg total) by mouth nightly as needed for Sleep. Active Encounters Date Type Department Care Team Description 05/24/2025 7:58 PM CDT - 05/25/2025 5:40 AM CDT Emergency [facility] [place] [address] Fazal Brower MD,PHD Dizziness; Difficulty Urinating; Chest Pain; Shortness Of Breath Discharge Disposition: Home or Self Care (Routine Discharge) 05/24/2025 Travel from Last 3 Months Social History Tobacco Use Types Packs/Day Years Used Date Smoking Tobacco: Never Smokeless Tobacco: Never Tobacco Cessation:Counseling Given: Not Answered Alcohol Use Standard Drinks/Week Comments Not Currently 0 (1 standard drink = 0.6 oz pur e alcohol) Comments Unknown Sex and Gender Information Value Date Recorded Sex Assigned at Female 05/24/2025 7:08 PM CDT Legal Sex Female 10:23 PM INS[employer]ANCE [employer] Gender Identity Not on file Sexual Orientation Not on file Last Filed Vital Signs Vital Sign Reading Time Taken Comments Blood Pressure 131/68 05/25/2025 4:30 AM CDT Pulse 63 05/25/2025 12:05 AM CDT Temperature 37.1 C (98.7 F) 05/24/2025 7:04 PM CDT Respiratory Rate 15 05/25/2025 12:0 5 AM CDT Oxygen Saturation 96% 05/25/2025 4:30 AM CDT Inhaled Oxygen Concentration - - Weight 121.9 kg (268 lb 11.9 oz) 05/24/2025 7:04 PM CDT Height 172.7 cm (5' 8) 05/24/2025 7:04 PM CDT Body Mass Index 40.86 05/24/2025 7:04 PM CDT Plan of Treatment Health Maintenance Due Date Last Done Comments Colorectal Cancer Screening Colonoscopy (10 Years) 1974 Annual Physical 1977 Hepatitis C 1992 DTaP, Tdap and Td Vaccines ( 2 - Td or Tdap) 07/09/2022 07/09/2012, 09/17/2005 Zoster Vaccines (1 of 2) 2024 Mammogram Screening 01/11/2025 01/11/2023, 09/22/2013 COVID-19 Vaccine (3 - 2024-2 6 season) 2025 01/04/2021, 12/14/2020 Hepatitis B Vaccines Completed 07/28/2019, 08/21/2013, 07/09/2012 [...] Procedure Name Priority Date/Time Associated Diagnosis Comments SODIUM URINE RANDOM STAT 05/25/2025 1 :35 AM CDT CREATININE URINE RANDOM STAT 05/25/2025 1:35 AM CDT PROTEIN TOTAL URINE RANDOM STAT 05/25/2025 1:35 AM CDT ECG 12-LEAD STAT 05/24/2025 9:39 PM CDT HC URINALYSIS AUTO W/O MICRO STAT 05/24/2025 8:25 PM CDT XR CHEST PORTABLE STAT 05/24/2025 8:0 3 PM CDT ECG 12-LEAD Routine 05/24/2025 7:09 PM CDT MAGNESIUM STAT 05/24/2025 7:03 PM CDT TROPONIN, QUANT STAT 05/24/2025 7:03 PM CDT COMPREHENSIVE METABOLIC PANEL STAT 05/24/2025 7:03 PM CDT CBC W/DIFF AUTOMATED STAT 05/24/2025 7:03 PM CDT from Last 3 Months Results * PROTEIN TOTAL URINE RANDOM (05/25/2025 1:35 AM CDT) PROTEIN URINE TOTAL RANDOM 2.2 <10 MG/DL 05/25/2025 4:18 AM CDT [facility] URINE SPECIMEN / Unknown 05/25/2025 1:35 AM CDT us Fazal Brower MD,PHD URINE ORDERABLES Final Res ult [facility] [address] [place] [address], [place] [phone] * SODIUM URINE RANDOM (05/25/2025 1:35 AM CDT) NA RANDOM (U) 96 MMOL/L 05/25/2025 2:01 AM CDT [facility] Comment: NOTE: The reference range and other method performance specifications have not been determined for chemistry testing in this type of body fluid. Results should be integrated into clinical context for interpretation. URINE SPECIMEN / Unknown 05/25/2025 1:35 AM CDT Fazal Brower MD,PHD URINE ORDERABLES Final Res ult [facility] [address] [place] [address], [place] [phone] * CREATININE URINE RANDOM (05/25/2025 1:35 AM CDT) CREATININE (U) 84.4 28 - 217 MG/DL 05/25/2025 4:18 AM CDT [facility] URINE SPECIMEN / Unknown 05/25/2025 1:35 AM CDT Fazal Brower MD,PHD URINE ORDERABLES Final Res ult Performing Organization Address City/[facility]/ZIP Co de Phone Number [facility] [address] [place] [address], [place] [phone] * ECG 12 lead (05/24/2025 9:39 PM CDT) Only the most recent of2 resultswithin the time period is included. 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: [id number] : 1975 Requested By: INDERJIT STEWART Order Number: [id number] Reading : Juventino Manzanares Measurements Intervals [place] Rate: 64 P: 147 OK: 200 QRS: -34 QRSD: 142 T: 149 QT: 478 QTc: 493 Interpretive Statements SINUS RHYTHM POSSIBLE LEFT ATRIAL ENLARGEMENT [-0.1mV P-WAVE IN V1/V2] LEFT AXIS DEVIATION [QRS AXIS < -30] RIGHT BUNDLE BRANCH BLOCK POSSIBLE LEFT VENTRICULAR HYPERTROPHY POSSIBLE ANTEROSEPTAL MYOCARDIAL INFARCTION , OF INDETERMINATE AGE MARKED T-WAVE ABNORMALITY, CONSIDER LATERAL ISCHEMIA Compared to ECG 05/24/2025 19:09:35 No significant change Procedure Note Juventino Manzanares MD - 05/26/[address] Test Date: 2025-05-24 Pat Name: SILVA [facility] Department: 41 Room: EXAM12 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: Female 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: [id number] : 1975 Requested By: INDERJIT STEWART Order Number: [id number] Adrian JAY: Juventino Manzanares Measurements Intervals [place] Rate: 64 P: 147 OK: 200 QRS: -34 QRSD: 142 T: 149 QT: 478 QTc: 493 Interpretive Statements SINUS RHYTHM POSSIBLE LEFT ATRIAL ENLARGEMENT [-0.1mV P-WAVE IN V1/V2] LEFT AXIS DEVIATION [QRS AXIS < -30] RIGHT BUNDLE BRANCH BLOCK POSSIBLE LEFT VENTRICULAR HYPERTROPHY POSSIBLE ANTEROSEPTAL MYOCARDIAL INFARCTION , OF INDETERMINATE AGE MARKED T-WAVE ABNORMALITY, CONSIDER LATERAL ISCHEMIA Compared to ECG 05/24/2025 19:09:35 No significant change us Fazal Brower MD,PHD ECG ORDERABLES Final Resu lt [facility] ([facility] RAD * (ABNORMAL) URINALYSIS (05/24/2025 8:25 PM CDT) SPECIMEN TYPE URINE CLEAN CATCH 05/24/2025 8:25 PM CDT [facility] COLOR (U) LIGHT YELLOW 05/24/2025 8:50 PM CDT [facility] TRANSPARENCY CLEAR 05/24/2025 8:50 PM CDT [facility] SPECIFIC GRAVITY (U) 1.015 1.001 - 1.030 05/24/2025 8:50 PM CDT [facility] U PH 6.0 5.0 - 9.0 05/24/2025 8:50 PM CDT [facility] LEUKOCYTES (U) NEGATIVE NEGATIVE 05/24/2025 8:50 PM CDT [facility] NITRITES NEGATIVE NEGATIVE 05/24/2025 8:50 PM CDT [facility] PROTEIN RANDOM (U) 100(H) <30 MG/DL 05/24/2025 8:50 PM CDT [facility] GLUCOSE (U) 150(A) NORMAL MG/DL 05/24/2025 8:50 PM CDT [facility] KETONES MG/DL (U) NEGATIVE NEGATIVE MG/DL 05/24/2025 8:50 PM CDT [facility] UROBILINOGEN NORMAL NORMAL MG/DL 05/24/2025 8:50 PM CDT [facility] BILIRUBIN (U) NEGATIVE NEGATIVE MG/DL 05/24/2025 8:50 PM CDT [facility] BLOOD (U) NEGATIVE NEGATIVE 05/24/2025 8:50 PM CDT [facility] MUCUS RARE /LPF 05/24/2025 8:50 PM CDT [facility] HYALINE CASTS RARE /LPF 05/24/2025 8:50 PM CDT [facility] WBC/HPF 2 <6 /HPF 05/24/2025 8:50 PM CDT [facility] RBC/HPF 3 <6 /HPF 05/24/2025 8:50 PM CDT [facility] BACTERIA (U) RARE(A) NONE /HPF 05/24/2025 8:50 PM CDT [facility] SQUAMOUS EPITHELIALS RARE /HPF 05/24/2025 8:50 PM CDT [facility] URINE SPECIMEN OBTAINED BY CLEAN CATCH PROCEDURE / Unknown 05/24/2025 8:25 PM CDT us Carmen CHRISTINA URINE ORDERABLES Final Result Performing Organization Address City/State/[facility] Co de Phone Number [facility] [address] [place] [address], * XR CHEST PORTABLE (05/24/2025 8:03 PM CDT) Anatomical Region Laterality Modality Chest Fluoroscopy 05/24/2025 8:09 PM CDT Impressions 05/24/2025 8:09 PM CDT IMPRESSION: No acute cardiopulmonary process. Referred By: Interpreted By: Rd Cisneros MD, 05/24/2025 8:09 PM Narrative 05/24/2025 8:09 PM CDT [facility] [address] [place], [place] [address] EXAM: XR CHEST PORTABLE INDICATION: Chest pain, dyspnea COMPARISON: Chest radiograph, 06 Jul 2018 TECHNIQUE: Single frontal radiographic image of the chest FINDINGS: No pneumothorax, pleural effusion, or focal airspace consolidation. Pulmonary vasculature and cardiomediastinal silhouette within normal limits. No acute osseous abnormality. Procedure Note Rd Cisneros MD - 05/24/2025 [facility] [address] [place], [place] [address] EXAM: XR CHEST PORTABLE INDICATION: Chest pain, dyspnea COMPARISON: Chest radiograph, 06 Jul 2018 TECHNIQUE: Single frontal radiographic image of the chest FINDINGS: No pneumothorax, pleural effusion, or focal airspace consolidation.Pulmonary vasculature and cardiomediastinal silhouette within normallimits. No acute osseous abnormality. IMPRESSION: No acute cardiopulmonary process. Referred By: Interpreted By: Rd Cisneros MD, 05/24/2025 8:09 PM [facility] Final Result * (ABNORMAL) COMPREHENSIVE METABOLIC PANEL (05/24/2025 7:03 PM CDT) GLUCOSE 241(H) 70 - 99 MG/DL 05/24/2025 9:10 PM CDT [facility] BUN 53(H) 7 - 18 MG/DL 05/24/2025 9:10 PM CDT [facility] CREATININE S/P/B 3.13(H) 0.55 - 1.02 MG/DL 05/24/2025 9:10 PM CDT [facility] SODIUM S/P/B 136 136 - 145 MMOL/L 05/24/2025 9:10 PM CDT [facility] POTASSIUM S/P/B 3.9 3.5 - 5.1 MMOL/L 05/24/2025 9:10 PM CDT [facility] CHLORIDE S/P/B 105 97 - 115 MMOL/L 05/24/2025 9:10 PM CDT [facility] CO2 24.1 21 - 32 MMOL/L 05/24/2025 9:10 PM CDT [facility] CALCIUM S/P/B 10.3(H) 8.5 - 10.1 MG/DL 05/24/2025 9:10 PM CDT [facility] BILIRUBIN TOTAL S/P/B 0.4 0.2 - 1.2 MG/DL 05/24/2025 9:10 PM CDT [facility] Comment: THIS ASSAY IS NOT RECOMMENDED FOR PATIENTS UNDERGOING TREATMENT WITH ELTROMBOPAG DUE TO THE POTENTIAL FOR FALSELY ELEVATED RESULTS. TOTAL PROTEIN S/P/B 7.5 6.4 - 8.2 G/DL 05/24/2025 9:10 PM CDT [facility] ALBUMIN S/P/B 3.4 3.4 - 5.0 G/DL 05/24/2025 9:10 PM CDT [facility] AST 13(L) 15 - 37 U/L 05/24/2025 9:10 PM T [facility] ALT 20 14 - 55 U/L 05/24/2025 9:10 PM T [facility] ALKALINE PHOSPHATASE S/P/B 130 50 - 136 U/L 05/24/2025 9:10 PM T [facility] ANION GAP 6.9 2 - 10 MMOL/L 05/24/2025 9:10 PM T [facility] BUN CREATININE RATIO 16.9 6 - 26 05/24/2025 9:10 PM T [facility] A/G RATIO 0.8(L) 1.0 - 2.0 RATIO 05/24/2025 9:10 PM T [facility] GFR ESTIMATE 17(L) >90 ML/MIN/1.7 3 M2 05/24/2025 9:10 PM T [facility] Comment: NOTE: eGFR is not calculated for patients <18 years of age or gender unknown. This is an estimated GFR calculation using the new CKD EPI creatinine equation without race and so does not require a correction factor for race. This estimated GFR should not be used for calculating drug doses. 05/24/2025 7:03 PM CDT [facility] Final Result [facility] [address] [place] [address], * (ABNORMAL) CBC W/DIFF AUTOMATED (05/24/2025 7:03 PM CDT) WBC 11.11(H) 4.5 - 11.0 x10'3/uL 05/24/2025 8:37 PM CDT [facility] RBC 4.45 4.20 - 5.40 x10'6/uL 05/24/2025 8:37 PM CDT [facility] HGB 12.8 12.0 - 16.0 G/DL 05/24/2025 8:37 PM CDT [facility] HCT 39.0 38.0 - 48.0 % 05/24/2025 8:37 PM CDT [facility] MCV 87.6 81.0 - 99.0 FL 05/24/2025 8:37 PM CDT [facility] MCH 28.8 27.0 - 31.0 PG 05/24/2025 8:37 PM CDT [facility] MCHC 32.8 32.0 - 36.0 G/DL 05/24/2025 8:37 PM CDT [facility] RDW 14.1 11.5 - 14.5 % 05/24/2025 8:37 PM CDT [facility] PLT 226 130 - 400 x10'3/uL 05/24/2025 8:37 PM CDT [facility] MPV 10.5 9.3 - 12.2 FL 05/24/2025 8:37 PM CDT [facility] DIFFERENTIAL TYPE AUTOMATED DIFFERENTIAL 05/24/2025 8:37 PM CDT [facility] NEUTROPHILS % 70.4 % 05/24/2025 8:37 PM CDT [facility] LYMPHOCYTES % 22.3 % 05/24/2025 8:37 PM CDT [facility] MONOCYTES % 4.6 % 05/24/2025 8:37 PM CDT [facility] EOSINOPHILS 1.7 % 05/24/2025 8:37 PM CDT [facility] BASOPHILS 0.4 % 05/24/2025 8:37 PM CDT [facility] IMMATURE GRANS % 0.6 % 05/24/20 8:37 PM CDT [facility] ABS. NEUTROPHILS 7.82(H) 1.80 - 7.70 x10'3/uL 05/24/2025 8:37 PM CDT [facility] ABS. LYMPHOCYTES 2.48 1.00 - 4.80 x10'3/uL 05/24/2025 8:37 PM CDT [facility] ABS. MONOCYTES 0.51 0.24 - 0.86 x10'3/uL 05/24/2025 8:37 PM CDT [facility] ABS. EOSINOPHILS 0.19 0.04 - 0.36 x10'3/uL 05/24/2025 8:37 PM CDT [facility] ABS. BASOPHILS 0.04 0.01 - 0.08 x10'3/uL 05/24/2025 8:37 PM CDT [facility] ABS. IMMATURE GRANULOCYTES 0.07 0.00 - 0.49 x10'3/uL 05/24/2025 8:37 PM CDT [facility] 05/24/2025 7:03 PM CDT [facility] Final Result Performing Organization Address City/[facility] Co de Phone Number [facility] [address] [place] [address], [place] [phone] * TROPONIN, QUANT (05/24/2025 7:03 PM CDT) TROPONIN I HIGH SENSITIVITY 23 <54 ng/L 05/24/2025 9:10 PM CDT [facility] Comment: HIGH DOSES OF BIOTIN, TROPONIN-SPECIFIC AUTOANTIBODIES, AND ANTIBODY THERAPY CONTAINING HAMA MAY INTERFERE WITH THIS TEST RESULT. CORRELATION TO CLINICAL HISTORY AND PRESENTATION RECOMMENDED. 05/24/2025 7:03 PM CDT [facility] Final Result Performing Organization Address [facility] Co de Phone Number [facility] [address] [place] [address], [place] [phone] * MAGNESIUM (05/24/2025 7:03 PM CDT) MAGNESIUM 2.0 1.8 - 2.4 MG/DL 05/24/2025 9:10 PM CDT [facility] 05/24/2025 7:03 PM CDT [facility] Final Result Performing Organization Address City/[facility]/ZIP Co de Phone Number [facility] [address] [place] [address], [place] [phone] from Last 3 Months Insurance [facility] Care Teams Shrimp Pond Laborer Relationship Specialty Start Date End Date Jamaal Ibarra DO [address] [facility] [address] [place] [address] PCP - General INTERNAL MEDICINE 07/02/23
--- OUTSIDE RECORDS SUMMARY | 2025-07-12 01:52 | XMS_ITS | Encounter Summary ---
Author Organization [employer] Address [address] [place] [address] Care Team Providers Care Acid Pump Operator Name Role Phone Jamaal Ibarra DO Primary Care Provider Encounter Details Date Type Department Care Team (Latest Contact Info) Description 03/23/2002 Outpatient Historical [facility] [place] [address] [place] [address] MENSTRUAL DISORDER NEC (Primary Dx) Social History Tobacco Use Types Packs/Day Years Used Date Smoking Tobacco: Never Assessed Comments Unknown Sex and Gender Information Value Date Recorded Sex Assigned at Not on file Legal Sex Female 3:50 AM [employer] HEL[employer] Gender Identity Not on file Sexual Orientation [...] documented as of this encounter Care Teams Acid Pump Operator Relationship Specialty Start Date End Date Jamaal Ibarra DO [address] [facility] [address] [place] [address] PCP - General Internal Medicine 07/11/18 documented as of this encounter
--- NOTE | 2025-07-12 02:02 | ED.GIBLEED ---
HPI - GI Bleed General Chief complaint: GI Bleed Stated complaint: No BM in 14days, constipation, bloody stool Time Seen by Provider: 07/12/25 01:33 Source: patient Mode of arrival: ambulatory Limitations: no limitations History of Present Illness HPI Narrative: Patient notes a recent history of constipation in which she had no bowel movement for 14 days. She had been on Miralax and women's laxative and starting last night had liquid stool, followed by 7 since. The last one contained blood/was bright red liquid blood. She had another episode while in the ED. Patient is on Ardelyx/tenapanor/Irbsela prescribed by GI. Followed with GI for history of IBS-C. So history of constipation but never bloody. Not on opiates. No recent surgery/anesthesia. Abdominal pain across the middle bilaterally. Nauseated and had one episodes of nonbloody emesis. Last oral intake 8pm. Abd surgery includes hysterectomy and cholecystectomy. Blind in R eye. No recent steroids, not on anticoagulation, does not use NSAIDs due to kidney disease. Last colonoscopy April 2021; last EGD 6 years ago. Uses Tylenol PRN. No appetite. PCP Jamaal Ibarra. Her hematology oncology consultant is Dr. Grimaldo Related Data Home Medications ?Medication ?Instructions ?Recorded ?Confirmed ?Last Taken ?Type docusate sodium 100 mg capsule 100 mg PO DAILY 11/02/19 05/24/25 02/08/25 History (Colace) sertraline 100 mg tablet (Zoloft) 100 mg PO DAILY 11/02/19 05/24/25 02/08/25 History zolpidem 10 mg tablet 10 mg PO QPM PRN Insomnia 11/02/19 05/24/25 02/08/25 History prazosin 2 mg capsule (Minipress) 2 mg PO HS 07/03/20 05/24/25 02/08/25 History coenzyme Q10 100 mg capsule (Co 100 mg PO DAILY 10/03/21 05/24/25 02/08/25 History Q-10) trazodone 50 mg tablet 50 mg PO HS 05/21/22 05/24/25 02/08/25 History Humalog KwikPen Insulin See Protocol subcut TIDWMEAL 03/22/23 05/24/25 02/08/25 History atorvastatin 10 mg tablet 20 mg PO QHS 04/02/23 05/24/25 02/08/25 History sumatriptan succinate 6 mg/0.5 mL 6 mg subcut ONCE PRN Migraine 08/01/23 05/24/25 01/19/25 History subcutaneous pen injector Headache alprazolam 0.5 mg tablet 0.5 mg PO TID 09/10/23 05/24/25 02/08/25 History blood-glucose sensor (FreeStyle #1 ea 05/13/24 05/24/25 Unknown History Sharita 3 Sensor device) glucagon 3 mg/actuation nasal 3 mg intranasal PRN PRN 05/13/24 05/24/25 01/19/25 History spray (Baqsimi) Hypoglycemia insulin glargine 100 unit/mL (3 38 unit subcut BID 05/13/24 05/24/25 02/08/25 History mL) subcutaneous pen (Lantus Solostar U-100 Insulin) pen needle, diabetic 32 gauge x #1,200 ea 05/13/24 05/24/25 Unknown History (BD Mer 2nd Gen Pen Needle) pioglitazone 15 mg tablet 15 mg PO DAILY 05/13/24 05/24/25 02/08/25 History cholecalciferol (vitamin D3) 1,250 1,250 mcg PO WEEKLY 06/02/24 05/24/25 02/07/25 History mcg (50,000 unit) tablet prochlorperazine maleate 10 mg 20 mg PO Q4-6H PRN Nausea 06/02/24 05/24/25 01/19/25 History tablet cholecalciferol (vitamin D3) 125 125 mcg PO DAILY 08/20/24 05/24/25 02/08/25 History mcg (5,000 unit) tablet zinc citrate 11 mg chewable tablet 11 mg PO DAILY 08/20/24 05/24/25 02/08/25 History Allergies Allergy/AdvReac Type Severity Reaction Status Date / Time latex Allergy Severe itching Verified 05/24/25 14:50 metoclopramide Allergy Severe Redness of Verified 05/24/25 14:50 Skin PMFSH Past Medical History Medical History History of diabetic ketoacidosis CKD (chronic kidney disease) PTSD (post-traumatic stress disorder) Generalized anxiety disorder Acute electrocardiogram changes Abnormal chest x-ray Nonalcoholic steatohepatitis Nephrotic syndrome Chronic lumbar pain Morbid obesity due to excess calories Migraine headache without aura 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 Gastroparesis Irritable bowel syndrome with constipation Cyclic vomiting syndrome Insulin dependent diabetes mellitus Hyperlipidemia Hypertension Gastroesophageal reflux disease Vitamin B 12 deficiency Anxiety Depression Hypothyroidism Fibromyalgia Rheumatoid arthritis Endometriosis Herpes Uterine fibroid Peptic ulcer Bronchitis Surgical History Surgical History (Updated 07/13/25 @ 15:06 by Fatou White MD) History of colonoscopy April 2021 History of esophagogastroduodenoscopy (EGD) approx 2018 History of cholecystectomy History of detached retina repair History of partial knee replacement History of hysterectomy History of laparoscopy Removal of uterine fibroids Family History Family History Mother Diabetes mellitus Hypertension Family history of elevated blood lipids Sibling Family history of obesity Patient's sister is in good health Father Hypertension Family history of cardiovascular disease Other Acute myocardial infarction Family history of arthritis Family history of heart disease in male family member before age 55 Family history of thyroid disease Social History Social History Social History: Lives alone in [place]. with no children. No alcohol, tobacco, illicit substance abuse. Surrogate decision maker: Susan Mariano, sister. Code status: Full code. 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 HEAD: Normocephalic, atraumatic. EYES: Non injected, non icteric. Right eyelid ptosis but when visualize R eye it is cloudy with asymmetric pupil compared to left; patient notes chronic (legally blind). ENT: Nares clear, no rhinorrhea or epistaxis. Gross auditory acuity intact. NECK: Supple. No meningismus. CHEST: Speaking in full sentences. No respiratory distress. HEART: Regular rate and rhythm. . ABDOMEN: Obese but Soft, nondistended. Patient endorses pain particularly during palpation of the right side of her abdomen although this does not seem to be markedly tender to palpation, without grimace. No rigidity or guarding. Not peritoneal TAZ: Nonthrombosed external hemorrhoids. Normal rectal tone. No palpable masses. FOBT/guiaic negative on bedside assay EXTREMITIES: Normal range of motion. No lower extremity edema. SKIN: Warm, dry, no rash. NEURO: No focal deficits. Alert and oriented. Answering questions. Following commands. Normal speech without aphasia or dysarthria. PSYCH: Normal mood and affect. Course Vital Signs Vital signs: Vital Signs Temperature 98 F 07/11/25 22:52 Pulse Rate 84 07/11/25 22:52 Respiratory Rate 15 07/11/25 22:52 Blood Pressure 139/74 07/11/25 22:52 Pulse Oximetry 98 07/11/25 22:52 Oxygen Delivery Room Air 07/11/25 22:52 Temperature 98 F 07/11/25 22:52 Pulse Rate 66 07/12/25 07:51 Respiratory Rate 20 07/12/25 07:51 Blood Pressure 152/74 H 07/12/25 07:51 Pulse Oximetry 100 07/12/25 07:51 Oxygen Delivery Room Air 07/11/25 22:52 MDM - GI Bleed MDM Narrative Medical decision making narrative: The patient is a 49 year old who comes to the emergency department with bright red blood per rectum. History of IBS-C and followed by GI. On medication for this. Had been constipated with no BM for 14 days. Started having liquid stool last night after bowel regimen that included Miralax and womens laxative in addition to the Ibsrela. Last one was bright red blood and had another episode while here. Associated abdominal pain but not hematochezia/melena. In the ED they are initially afebrile and hemodynamically stable without tachycardia or hypotension. Based on history and physical, suspect lower GI bleed so will go ahead and order CBC, CMP, coagulation studies, lactate, and type and screen. My differential diagnosis at this time is diverticulosis versus angiodysplasia versus Meckel's diverticulum. Colon cancer is also possible. Considered ischemic bowel or anal fissure in addition to IBD/infectious diarrhea. Possibly hemorrhoids. Patient is given 1 L IV fluids given her kidney function for renal protection and I did sign authorizing CT imaging. Her Cr has ranged from 2.16 - 3.89 over the past year thus today's is in line/consistent with her known chronic kidney disease. Hyperglycemia without anion gap or acidosis. Patient has a leukocytosis but no anemia. Repeat 4 hr H&H is ordered. INR 1.0. Urinalysis with proteinuria but no signs of infection. Lactic acid normal. Her previous carton filling machine operator was Dr. Stanford per review of EMR. She did drop 1g on repeat. Reassessed at approximately 5:30 a.m.. She has not had any bloody bowel movements since my initial interview/assessment of her, only 1 while in the emergency department prior to our conversation. Her abdominal pain is back. She was initially only dose 2 mg morphine given her kidney dysfunction however given her body habitus this is under dosing and the benefits outweigh the risks on my clinical assessment so 4 mg morphine is ordered in addition to Bentyl. Addison Score (predicts readmission risk in patients with acute lower GI bleeding) Based on age, sex, previous lower GI bleed admission, TAZ findings, HR, SBP, and initial Hgb: 12?points Addison Score ([facility] [place] guidelinehttps://www.mdcalc.com/guidelines/502) 87-89?% Probability of safe discharge (absence of rebleeding, blood transfusion, therapeutic intervention, 28 day readmission, or ). Discharge NOT recommended. Consider admission with further workup and resuscitation as necessary. == Reassessed at 6:15. Pain is better though she is concerned her next bowel movement will be bloody. She is also worried about her kidneys. 2nd L IV fluid given. She is also hungry so will p.o. challenge. Discussed with eap consultant GI Dr Casiano who notes she Needs colonoscopy but not emergently. Suspects internal hemorrhoid. Likely Needs 2 day prep given her duration of constipation preceding this but can be discussed/determined in the office. Does not believe she needs admitted. She has successfully p.o. challenged. Stable for DC. Provided a work note at her request. Given RX for Bentyl. Told about the incidental fidnigns on CT and f/u with PCP. Verifies understanding. Stable for DC; has remained hemodynamically appropriate throughout. Lab Data Attestation: I reviewed the patient's lab results. 07/12/25 04:48 07/12/25 00:03 Labs: Lab Results 07/12/25 07/12/25 07/12/25 Range/Units 00:03 04:08 04:16 WBC 11.6 H (4.5-10.0) K/mm3 RBC 4.47 (4.2-5.4) M/mm3 Hgb 12.6 (12.0-15.0) g/dL Hct 39.9 (37.0-47.0) % MCV 89.3 (80-100) fl MCH 28.2 (26-34) pg MCHC 31.6 L (32-36) g/dl RDW 13.7 (11.5-14.5) % Plt Count 214 (150-375) k/mm3 MPV 10.1 (7.4-10.4) fl Immature Gran % (Auto) 0.3 (0-0.5) % Neut % (Auto) 76.3 H (45.5-73.1) % Lymph % (Auto) 16.7 L (18.3-44.2) % Upson % (Auto) 4.8 (2.6-8.5) % Eos % (Auto) 1.6 (0-4.4) % Baso % (Auto) 0.3 (0.2-1.2) % Lymph # (Auto) 1.93 (0.9-3.2) K/mm3 Upson # (Auto) 0.6 (0.1-0.6) K/mm3 Eos # (Auto) 0.2 (0-0.3) K/mm3 Baso # (Auto) 0.0 (0.0-0.1) K/mm3 Abs Immat Gran (auto) 0.04 H (0.00-0.031) K/mm3 Absolute Neuts (auto) 8.8 H (1.3-6.7) K/mm3 Absolute Nucleated RBC 0.000 (0.0-0.012) K/mm3 Nucleated RBC % 0.0 (0.0-0.2) % PT 13.3 (11.1-14.7) Seconds INR 1.0 APTT 27.2 (22.3-36.8) Seconds Sodium 137 (137-145) mmol/L Potassium 4.5 (3.4-5.0) mmol/L Chloride 104 (98-107) mmol/L Carbon Dioxide 21 L (22-30) mmol/L Anion Gap 12 (4-12) mmol/L BUN 51 H (7-17) mg/dL Creatinine 3.36 H (0.7-1.0) mg/dL Estim Creat Clear Calc Not Reportable Estimated GFR 14 L (59 - ) Glucose 281 H (65-110) mg/dL Lactic Acid 0.8 (0.7-2.0) mmol/L Calcium 10.6 H (8.4-10.2) mg/dL Total Bilirubin 0.6 (0.2-1.3) mg/dL AST 19 (14-36) U/L ALT 18 (6-35) U/L Alkaline Phosphatase 120 (38-126) U/L Total Protein 7.4 (6.3-8.2) g/dL Albumin 4.1 (3.5-5.1) g/dL Urine Color Yellow (Yellow) Urine Appearance Clear (Clear) Urine pH 5.0 (5.0-9.0) Ur Specific [place] 1.036 H (1.001-1.035) Urine Protein 2+ H (Negative) mg/dL Urine Glucose (UA) Trace H (Negative) mg/dL Urine Ketones Negative (Negative) mg/dL Ur Blood (Man) Negative (Negative) Urine Nitrate Negative (Negative) Urine Bilirubin Negative (Negative) Urine Urobilinogen 1.0 (<2.0) mg/dL Leukocyte Esterase Rfl Negative (Negative) LETY/UL Urine RBC 0-2 (0-2) /hpf Urine WBC 0-5 (0-3) /hpf Ur Squamous Epith Cells Few (Few) /hpf Urine Bacteria Rare /hpf Urine Casts 3-5 Blood Type B Positive Antibody Screen Negative 07/12/25 Range/Units 04:48 WBC (4.5-10.0) K/mm3 RBC (4.2-5.4) M/mm3 Hgb 11.6 L (12.0-15.0) g/dL Hct 36.2 L (37.0-47.0) % MCV (80-100) fl MCH (26-34) pg MCHC (32-36) g/dl RDW (11.5-14.5) % Plt Count (150-375) k/mm3 MPV (7.4-10.4) fl Immature Gran % (Auto) (0-0.5) % Neut % (Auto) (45.5-73.1) % Lymph % (Auto) (18.3-44.2) % Upson % (Auto) (2.6-8.5) % Eos % (Auto) (0-4.4) % Baso % (Auto) (0.2-1.2) % Lymph # (Auto) (0.9-3.2) K/mm3 Upson # (Auto) (0.1-0.6) K/mm3 Eos # (Auto) (0-0.3) K/mm3 Baso # (Auto) (0.0-0.1) K/mm3 Abs Immat Gran (auto) (0.00-0.031) K/mm3 Absolute Neuts (auto) (1.3-6.7) K/mm3 Absolute Nucleated RBC (0.0-0.012) K/mm3 Nucleated RBC % (0.0-0.2) % PT (11.1-14.7) Seconds INR APTT (22.3-36.8) Seconds Sodium (137-145) mmol/L Potassium (3.4-5.0) mmol/L Chloride (98-107) mmol/L Carbon Dioxide (22-30) mmol/L Anion Gap (4-12) mmol/L BUN (7-17) mg/dL Creatinine (0.7-1.0) mg/dL Estim Creat Clear Calc Estimated GFR (59 - ) Glucose (65-110) mg/dL Lactic Acid (0.7-2.0) mmol/L Calcium (8.4-10.2) mg/dL Total Bilirubin (0.2-1.3) mg/dL AST (14-36) U/L ALT (6-35) U/L Alkaline Phosphatase (38-126) U/L Total Protein (6.3-8.2) g/dL Albumin (3.5-5.1) g/dL Urine Color (Yellow) Urine Appearance (Clear) Urine pH (5.0-9.0) Ur Specific [place] (1.001-1.035) Urine Protein (Negative) mg/dL Urine Glucose (UA) (Negative) mg/dL Urine Ketones (Negative) mg/dL Ur Blood (Man) (Negative) Urine Nitrate (Negative) Urine Bilirubin (Negative) Urine Urobilinogen (<2.0) mg/dL Leukocyte Esterase Rfl (Negative) LETY/UL Urine RBC (0-2) /hpf Urine WBC (0-3) /hpf Ur Squamous Epith Cells (Few) /hpf Urine Bacteria /hpf Urine Casts Blood Type Antibody Screen Imaging Data Radiologist's impression: CT Abd & Pelvis with contrast stat rad: Possible diarrheal illness. Limited for active GI hemorrhage due to protocol. If concern, recommend CTA without and with IV contrast and with 122nd delay venous imaging. Recommend MRI liver for left lobe heterogenous hypoenhancing irregular region. Discharge Plan Discharge Clinical Impression: Hyperglycemia due to diabetes mellitus, Chronic kidney disease, Bloody stool, Leukocytosis, Abnormal CT of liver Patient Disposition: Home Condition: Stable Instructions: Antibiotic Form, Rectal Bleeding (ED), Chronic Kidney Disease (ED), Chronic Kidney Disease Diet (DC), Diabetic Hyperglycemia (ED) Additional Instructions: Keep your upcoming appointment with both your hematology oncology consultant and primary care physician that is currently already scheduled for 07/19/2025. Follow-up with the carton filling machine operator listed below. Call to make appointment. On CT : Recommend MRI liver for left lobe heterogenous hypoenhancing irregular region. Your PCP can help arrange this. Return to the Emergency Department immediately if the pain worsens, develops fever, persistent and uncontrolled vomiting, or for any new symptoms or concerns including intractable rectal bleeding, feeling faint/passing out, etc. The dicyclomine/Bentyl may help with the abdominal pain/cramping you experience because it works on the smooth muscle of the GI tract. Patient Language: French Prescriptions: New dicyclomine 10 mg capsule 10 mg PO BID PRN (Reason: abdominal pain) 10 Days Qty: 20 0RF No Action insulin glargine [Lantus Solostar U-100 Insulin] 100 unit/mL (3 mL) insulin pen 38 unit subcut BID (DME) pen needle, diabetic [BD Mer 2nd Gen Pen Needle] 32 gauge x 5/32 needle See Rx Instructions .ROUTE .MEDSUPPLY Qty: 1200 Rx Instructions: As directed pioglitazone 15 mg tablet 15 mg PO DAILY Baqsimi 3 mg/actuation spray,non-aerosol 3 mg intranasal PRN PRN (Reason: Hypoglycemia) (DME) FreeStyle Sharita 3 Sensor Device See Rx Instructions .ROUTE .MEDSUPPLY Qty: 1 Rx Instructions: As directed sucralfate 1 gram tablet 1 g PO .qid with meals Qty: 120 1RF chlorthalidone 25 mg tablet 25 mg PO DAILY Qty: 30 6RF carvedilol 6.25 mg tablet 6.25 mg PO Q12H Qty: 60 6RF docusate sodium [Colace] 100 mg capsule 100 mg PO DAILY sertraline [Zoloft] 100 mg tablet 100 mg PO DAILY zolpidem 10 mg tablet 10 mg PO QPM PRN (Reason: Insomnia) atorvastatin 10 mg tablet 20 mg PO QHS alprazolam 0.5 mg tablet 0.5 mg PO TID spironolactone 25 mg tablet 25 mg PO DAILY Qty: 30 11RF bumetanide 1 mg tablet 1 mg PO BID Qty: 60 6RF zinc citrate 11 mg tablet,chewable 11 mg PO DAILY cholecalciferol (vitamin D3) 125 mcg (5,000 unit) tablet 125 mcg PO DAILY acyclovir 400 mg tablet 400 mg PO BID Qty: 180 3RF Trulance 3 mg tablet 3 mg PO DAILY 30 Days Qty: 30 3RF tenapanor 50 mg tablet 50 mg tablet 0RF lactulose 10 gram packet 10 g PO BID Qty: 30 1RF Humalog KwikPen Insulin See Protocol subcut TIDWMEAL Protocol: Insulin Corrective High-Dose Condition: glucose < 70 mg/dl Dose/Route: Follow hypoglycemia order Condition: glucose 70-200 mg/dl Dose/Route: No additional insulin Condition: glucose 201-250 mg/dl Dose/Route: 4 units sub-Q Condition: glucose 251-300 mg/dl Dose/Route: 5 units sub-Q Condition: glucose 301-350 mg/dl Dose/Route: 6 units sub-Q Condition: glucose 351-400 mg/dl Dose/Route: 8 units sub-Q Condition: glucose > 400 mg/dl Dose/Route: Call Protocol Text: *No Correction Dose at Bedtime* Rx Instructions: Uses sliding scale for blood glucose greater than 150 ondansetron 4 mg tablet,disintegrating 4 mg PO Q8H PRN (Reason: nausea and vomiting) Qty: 10 0RF prochlorperazine maleate 10 mg tablet 20 mg PO Q4-6H PRN (Reason: Nausea) cholecalciferol (vitamin D3) 1,250 mcg (50,000 unit) tablet 1,250 mcg PO WEEKLY metronidazole 500 mg tablet 500 mg PO Q8H Qty: 4 0RF dicyclomine 10 mg capsule 20 mg PO BID PRN (Reason: abdominal pain) Qty: 20 0RF ondansetron 4 mg tablet,disintegrating 4 mg PO Q8H PRN (Reason: nausea and vomiting) Qty: 7 0RF bisacodyl [Dulcolax (bisacodyl)] 10 mg suppository 10 mg RECTAL TID PRN (Reason: constipation) Qty: 12 0RF prazosin [Minipress] 2 mg Capsule 2 mg PO HS trazodone 50 mg Tablet 50 mg PO HS sumatriptan succinate 6 mg/0.5 mL pen injector 6 mg subcut ONCE PRN (Reason: Migraine Headache) Rx Instructions: may repeat dose once in 1 hour if not relieved coenzyme Q10 [Co Q-10] 100 mg capsule 100 mg PO DAILY amitriptyline 25 mg tablet 50 mg PO HS Qty: 180 1RF amlodipine 5 mg tablet See Rx Instructions .ROUTE .COMPLEX Qty: 90 1RF Dose Instruction: TAKE 1 TABLET BY MOUTH DAILY Rx Instructions: TAKE 1 TABLET BY MOUTH DAILY topiramate [Topamax] 25 mg capsule, sprinkle 50 mg PO BID Qty: 360 1RF Rx Instructions: titrate up to 50mg bid as directed Ibsrela 50 mg tablet 50 mg PO BID 30 Days Qty: 60 5RF Rx Instructions: must administer immediately before first meal of day/breakfast and dinner tenapanor 50 mg tablet 50 mg tablet 0RF pantoprazole 40 mg tablet,delayed release (DR/EC) 40 mg PO DAILY PRN (Reason: Nausea) Qty: 90 1RF Follow-up/Referrals: Bernadine Grimaldo MD [Physician, Nephrology] Wade Casiano MD [Physician, Gastroenterology] Jamaal Ibarra DO [Primary Care Provider, Internal Medicine] Stand Alone Forms: Work/School Release IP Time of Disposition: 06:51
[2025-07-12] MEDS: MORPHINE SULFATE (*CRX) 4 MG/ML INJ 2 MG IV PUSH (02:25)
[2025-07-12] MEDS: SODIUM CHLORIDE 0.9% IV 1,000 ML 999 ML IV CONT ×2 (02:25→06:26)
[2025-07-12] MEDS: ONDANSETRON INJ 4 MG/2 ML VIAL IV PUSH (02:25)
[2025-07-12 03:00] VITALS: BP 195/118; PULSE 78; RESP 17; O2SAT 100
[2025-07-12 04:00] VITALS: BP 150/73; PULSE 85; RESP 18; O2SAT 100
[2025-07-12 04:28] LABS: Add Urine Microscopic? YES; Appearance Urine Clear (Clear); Glucose Urine UA Trace mg/dL (Negative); Leukocyte Esterase Ur Negative LEU/UL (Negative); Nitrate Urine Negative (Negative); Specific Grav Ur 1.036 (1.001-1.035)
[2025-07-12 05:01] LABS: Hematocrit 36.2 % (37.0-47.0); Hemoglobin 11.6 g/dL (12.0-15.0)
[2025-07-12] MEDS: MORPHINE SULFATE (*CRX) 4 MG/ML INJ IV PUSH (05:42)
[2025-07-12] MEDS: DICYCLOMINE HCL 10 MG CAPSULE 20 MG PO (05:42)
[2025-07-12 07:51] VITALS: BP 152/74; PULSE 66; RESP 20; O2SAT 100
== END 2025-07-12 07:59 | disposition home or self-care (01) ==
PROVIDERS: Emergency Provider Student in an Organized Health Care Education/Training Program; PCP Internal Medicine
DX: E11.65 Type 2 diabetes mellitus with hyperglycemia (principal); E11.22 Type 2 diabetes mellitus with diabetic chronic kidney disease; I12.9 Hypertensive chronic kidney disease with stage 1 through stage 4 chronic kidney disease, or unspecified chronic kidney disease; N18.9 Chronic kidney disease, unspecified; K92.1 Melena; D72.829 Elevated white blood cell count, unspecified; R93.2 Abnormal findings on diagnostic imaging of liver and biliary tract; E11.43 Type 2 diabetes mellitus with diabetic autonomic (poly)neuropathy; K31.84 Gastroparesis; E11.21 Type 2 diabetes mellitus with diabetic nephropathy; E78.5 Hyperlipidemia, unspecified; E53.8 Deficiency of other specified B group vitamins; E03.9 Hypothyroidism, unspecified; M06.9 Rheumatoid arthritis, unspecified; M79.7 Fibromyalgia; K58.1 Irritable bowel syndrome with constipation; F43.10 Post-traumatic stress disorder, unspecified; F41.1 Generalized anxiety disorder; F32.A Depression, unspecified; Z96.659 Presence of unspecified artificial knee joint; Z87.11 Personal history of peptic ulcer disease; Z90.49 Acquired absence of other specified parts of digestive tract; Z90.710 Acquired absence of both cervix and uterus; Z79.4 Long term (current) use of insulin; Z79.899 Other long term (current) drug therapy; Z79.84 Long term (current) use of oral hypoglycemic drugs
CPT/HCPCS: 36415; 74177; 80053; 81001; 83605; 85014; 85018; 85025; 85610; 85730; 86850; 86900; 86901; 96361; 96374; 96375; 96376; 99284; A9270; J2270; J2405; J7030; Q9967

== ENCOUNTER 2025-07-19 09:24 | Outpatient (CLI) | payer OTHER, SELFPAY ==
--- OUTSIDE RECORDS SUMMARY | 2019-07-08 | XMS_ITS | Encounter Summary ---
Author Organization [facility] Healthcare Address [address] [place] [address] Care Team Providers Care Software Developer Mid Level Name Role Phone Jamaal Ibarra DO Primary Care Provider Reason for Visit * Diagnostic Imaging (Routine) - Closed Specialty Diagnoses / Procedures Referred By Liz borrero Referred To Contact Procedures Breast Imaging Screening Outside Reference Saul Ortiz NP Phone: tel: fax: Referral ID Status Reason Start Date Expiration Date Visits Re quested Visits Authorized [id number] Closed 10/16/2022 11/15/2023 1 1 Encounter Details Date Type Department Care Team (Late st Contact Info) Description 07/08/2019 Hospital Encounter [facility]iology [facility]) [facility] [place] [address] Social History Tobacco Use Types [...] on file Legal Sex Female 12:16 AM FIBRE OPTICS JOINTER Gender Identity Not on file Sexual Orientation [...] CDT) Impressions [facility] - 10/16/2022 11:48 AM FIBRE OPTICS JOINTER These images are for Reference purposes only and have not been reviewed by [facility] Radiology. There will be no report generated by a [facility] Radiologist. Narrative [facility] - 10/16/2022 11:48 AM FIBRE OPTICS JOINTER EXAMINATION: Images For Reference Purposes Only us Saul Ortiz NP IMG MAMMO PROCEDURES Final Result [facility] documented in this encounter Visit Diagnoses Not on filedocumented in this encounter Care Teams Software Developer Mid Level Relationship Specialty Start Date End Date Jamaal Ibarra DO PCP - General 10/22/17 documented as of this encounter
--- OUTSIDE RECORDS SUMMARY | 2019-07-15 | XMS_ITS | Encounter Summary ---
Author Organization [facility] Healthcare Address [address] [place] [address] Care Team Providers Care Knotter Name Role Phone Jamaal Ibarra DO Primary Care Provider Reason for Visit * Diagnostic Imaging (Routine) - Closed Specialty Diagnoses / Procedures Referred By Liz borrero Referred To Contact Procedures Breast Imaging US Outside Reference Saul Ortiz NP Phone: tel: fax: Referral ID Status Reason Start Date Expiration Date Visits Re quested Visits Authorized [id number] Closed 10/16/2022 11/15/2023 1 1 Encounter Details Date Type Department Care Team (Late st Contact Info) Description 07/15/2019 Hospital Encounter [facility]iology [facility] [place] [address] Social History Tobacco Use Types [...] on file Legal Sex Female 12:16 AM INTERACTIVE DEVELOPER Gender Identity Not on file Sexual Orientation [...] CDT) Impressions [facility] - 10/16/2022 11:47 AM INTERACTIVE DEVELOPER These images are for Reference purposes only and have not been reviewed by [facility] Radiology. There will be no report generated by a [facility] Radiologist. Narrative RAD_M[facility]MO[facility] - 10/16/2022 11:47 AM INTERACTIVE DEVELOPER EXAMINATION: Images For Reference Purposes Only us Saul Ortiz NP IMG MAMMO PROCEDURES Final Result [facility] documented in this encounter Visit Diagnoses Not on filedocumented in this encounter Care Teams Knotter Relationship Specialty Start Date End Date Jamaal Ibarra DO PCP - General 10/22/17 documented as of this encounter
--- OUTSIDE RECORDS SUMMARY | 2019-07-15 00:05 | XMS_ITS | Encounter Summary ---
Author Organization [facility] Healthcare Address [address] [place] [address] Care Team Providers Care Manager Intensive Care Name Role Phone Jamaal Ibarra DO Primary Care Provider Reason for Visit * Diagnostic Imaging (Routine) - Closed Specialty Diagnoses / Procedures Referred By Liz borrero Referred To Contact Procedures Breast Imaging Diagnostic Outside Reference Saul Ortiz NP Phone: tel: fax: Referral ID Status Reason Start Date Expiration Date Visits Re quested Visits Authorized [id number] Closed 10/16/2022 11/15/2023 1 1 Encounter Details Date Type Department Care Team (Late st Contact Info) Description 07/15/2019 12:05 AM CDT Hospital Encounter [facility] Radiology [facility] [address] [place] [address] Social History Tobacco Use Types Packs/Day Years [...] on file Legal Sex Female 12:16 AM RETAIL COVERAGE MERCHANDISER Gender Identity Not on file Sexual Orientation [...] CDT) Impressions [facility] - 10/16/2022 11:47 AM RETAIL COVERAGE MERCHANDISER These images are for Reference purposes only and have not been reviewed by [facility] Radiology. There will be no report generated by a [facility] Radiologist. Narrative [facility] - 10/16/2022 11:47 AM RETAIL COVERAGE MERCHANDISER EXAMINATION: Images For Reference Purposes Only us Saul Ortiz NP IMG MAMMO PROCEDURES Final Result [facility] documented in this encounter Visit Diagnoses Not on filedocumented in this encounter Care Teams Manager Intensive Care Relationship Specialty Start Date End Date Jamaal Ibarra DO PCP - General 10/22/17 documented as of this encounter
--- OUTSIDE RECORDS SUMMARY | 2020-04-29 | XMS_ITS | Encounter Summary ---
Author Organization [facility] Healthcare Address [address] [place] [address] Care Team Providers Care Senior Tax Specialist Name Role Phone Jamaal Ibarra DO Primary Care Provider Reason for Visit * Diagnostic Imaging (Routine) - Closed Specialty Diagnoses / Procedures Referred By Liz borrero Referred To Contact Procedures Breast Imaging US Outside Reference Saul Ortiz NP Phone: tel: fax: Referral ID Status Reason Start Date Expiration Date Visits Re quested Visits Authorized [id number] Closed 10/16/2022 11/15/2023 1 1 Encounter Details Date Type Department Care Team (Late st Contact Info) Description 04/29/2020 Hospital Encounter [facility]) [address] [place] [address] Social History Tobacco Use Types Packs/Day [...] on file Legal Sex Female 12:16 AM POLICE OFFICER CRIME PREVENTION Gender Identity Not on file Sexual Orientation [...] CDT) Impressions [facility] - 10/16/2022 11:47 AM POLICE OFFICER CRIME PREVENTION These images are for Reference purposes only and have not been reviewed by [facility]. There will be no report generated by a [facility] Radiologist. Narrative [facility] - 10/16/2022 11:47 AM POLICE OFFICER CRIME PREVENTION EXAMINATION: Images For Reference Purposes Only us Saul Ortiz NP IMG MAMMO PROCEDURES Final Result [facility] documented in this encounter Visit Diagnoses Not on filedocumented in this encounter Care Teams Senior Tax Specialist Relationship Specialty Start Date End Date Jamaal Ibarra DO PCP - General 10/22/17 documented as of this encounter
--- OUTSIDE RECORDS SUMMARY | 2020-04-29 00:05 | XMS_ITS | Encounter Summary ---
Author Organization [facility] Healthcare Address [address] [place] [address] Care Team Providers Care Magazine Writer Name Role Phone Jamaal Ibarra DO Primary Care Provider Reason for Visit * Diagnostic Imaging (Routine) - Closed Specialty Diagnoses / Procedures Referred By Liz borrero Referred To Contact Procedures Breast Imaging Diagnostic Outside Reference Saul Ortiz NP Phone: tel: fax: Referral ID Status Reason Start Date Expiration Date Visits Re quested Visits Authorized [id number] Closed 10/16/2022 11/15/2023 1 1 Encounter Details Date Type Department Care Team (Late st Contact Info) Description 04/29/2020 12:05 AM CDT Hospital Encounter [facility] Radiology [facility] [address] [place] [address] Social History Tobacco Use Types Packs/Day Years [...] on file Legal Sex Female 12:16 AM ACCESS CONSULTANT Gender Identity Not on file Sexual Orientation [...] CDT) Impressions [facility] - 10/16/2022 11:47 AM ACCESS CONSULTANT These images are for Reference purposes only and have not been reviewed by [facility] Radiology. There will be no report generated by a [facility] Radiologist. Narrative RAD_M[facility] - 10/16/2022 11:47 AM ACCESS CONSULTANT EXAMINATION: Images For Reference Purposes Only us Saul Ortiz NP IMG MAMMO PROCEDURES Final Result [facility] documented in this encounter Visit Diagnoses Not on filedocumented in this encounter Care Teams Magazine Writer Relationship Specialty Start Date End Date Jamaal Ibarra DO PCP - General 10/22/17 documented as of this encounter
--- OUTSIDE RECORDS SUMMARY | 2025-07-19 09:57 | XMS_ITS | Clinical Summary ---
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 AVG GLUCOSE, A1C 194 mg/dL 01/29/2025 3:35 PM CDT [facility] [employer] [facility] Blood Venipuncture / Unknown 01/29/2025 2:08 PM CDT 01/29/2025 3:15 PM CDT Narrative [facility] - 01/29/2025 3:35 PM CDT HGB A1C INTERPRETATION NORMAL: <5.7% PRE-DIABETES: 5.7 - 6.4% DIABETES: 6.5% OR GREATER Michael Hoskins MD CHEMISTRY ORDERABLES Final R esult [facility]# [id number] [address] [place] [address] from Last 3 Months or Most Recently Relevant to Health Maintenance Insurance [facility] BLUE PREFERRED RX [employer] Commercial Advance Directives For more information, please contact: [phone] * Full Code (Latest Code Status on File) Date Activated Date Inactivated Comments 01/29/2025 1:42 PM 02/02/2025 12:23 PM Care Teams Stock Associate Relationship Specialty Start Date End Date Jamaal Ibarra DO [address] [address] PCP - General Internal Medicine 07/11/18
--- OUTSIDE RECORDS SUMMARY | 2025-07-19 09:57 | XMS_ITS | Clinical Summary ---
Author Organization [facility] [employer] Address [address] [place] [address] Care Team Providers Care Assistant Men'S Soccer Coach Name Role Phone Lebron Pugh V. DO Unavailable Jamaal Ibarra DO Primary Care Provider Source Comments [facility],non-owned Affiliates and Associated Physician Practices is amultiple site organization consisting of ambulatory clinics and hospital sitesin [place], [place], [place] and [place]. This disclosure is being madepursuant to the Care Everywhere program and may not contain all information available regarding this patient. Last updated 18.[facility] Allergies Active Allergy Reactions Criticality Noted Date [...] tablet 2 Active vitamin D, ergocalciferol, (DRISDOL) 78605 UNITS capsule 1 Active gabapentin (NEURONTIN) 300 MG capsule 2 Active simvastatin (ZOCOR) 20 MG tablet 1 Active traMADol (ULTRAM) 50 MG tablet 1 014 Active traZODone (DESYREL) 50 MG tablet 6 Active zolpidem (AMBIEN) 10 MG tablet 5 Active megestrol (MEGACE) 40 MG tablet Take 1 Tab by mouth once daily. 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 Not on file Not on file Last Filed Vital Signs Vital Sign Reading Time Taken Comments Blood Pressure 126/74 10/21/2014 11:57 AM FABRIC WORKER SUPERVISOR Pulse 102 09/16/2013 1:06 PM FABRIC WORKER SUPERVISOR Temperature 36.8 C (98.2 F) 09/16/2013 1:06 PM FABRIC WORKER SUPERVISOR Respiratory Rate 20 09/16/2013 1:06 PM FABRIC WORKER SUPERVISOR Oxygen Saturation 98% 09/16/2013 1:06 PM FABRIC WORKER SUPERVISOR Inhaled Oxygen Concentration - - Weight 89.8 kg (198 lb) 10/21/2014 11:57 AM FABRIC WORKER SUPERVISOR Height 172.7 cm (5' 8) 10/21/2014 11:57 AM FABRIC WORKER SUPERVISOR Body Mass Index 30.11 10/21/2014 11:57 AM FABRIC WORKER SUPERVISOR Plan of Treatment Health Maintenance Due [...] MAMMO BILAT SCREENING Routine 09/22/2013 8:09 AM FABRIC WORKER SUPERVISOR Screening COMPREHENSIVE METABOLIC PANEL Routine 08/22/2013 8:00 AM FABRIC WORKER SUPERVISOR DM w/o Complication Type II, Uncontrolled HTN (hypertension), benign Abdominal pain, RUQ (right upper quadrant) Ketonuria HEMOGLOBIN A1C Routine 08/22/2013 8:00 AM FABRIC WORKER SUPERVISOR DM w/o Complication Type II, Uncontrolled MICROALB/CREAT RATIO URINE RANDOM PANEL Routine 08/21/2013 9:29 AM FABRIC WORKER SUPERVISOR DM w/o Complication Type II, Uncontrolled from Last 3 Months or Most Recently Relevant to Health Maintenance Results * MAMM SCREENING DIGITAL IMAGE BILAT G0202 (09/22/2013 8:09 AM FABRIC WORKER SUPERVISOR) Anatomical Region Laterality Modality Breast Bilateral Mammography 09/22/2013 11:5 3 AM FABRIC WORKER SUPERVISOR Impressions 09/22/2013 11:56 AM FABRIC WORKER SUPERVISOR No malignant abnormality identified. No significant change. BI-RADS category 1. Negative. RECOMMENDATIONS: Routine mammograms in one year. Narrative 09/22/2013 11:56 AM FABRIC WORKER SUPERVISOR Screening mammogram: HISTORY: Screening mammogram. Two [...] * (ABNORMAL) HEMOGLOBIN A1C (08/22/2013 8:00 AM FABRIC WORKER SUPERVISOR) Hemoglobin A1c 12.6(H) <5.7 % of [...] of diabetes for children. Test Performed at: [facility] [address] [place] [address] PAPO BENNETT DO,MPH Whole blood specimen (specimen) BLOOD SPECIMEN / Unknown 08/22/2013 4:53 AM FABRIC WORKER SUPERVISOR Salma Viet Hunt DIALYSIS TECH-MECHANICAL ENGINEERING DIRECTOR LAB - CHEMISTRY ORDERA BLES Final Result [facility] [id number] [place] [address] * (ABNORMAL) COMPREHENSIVE METABOLIC PANEL (08/22/2013 8:00 AM FABRIC WORKER SUPERVISOR) Glucose 312(H) 65 - 99 mg/dL [...] 29 U/L [facility] Comment: Test Performed at: [facility] [address] PAPO BENNETT DO,MPH Blood specimen (specimen) BLOOD SPECIMEN / Unknown 08/22/2013 4:53 AM FABRIC WORKER SUPERVISOR Salma Hunt DIALYSIS TECH-MECHANICAL ENGINEERING DIRECTOR LAB - CHEMISTRY ORDERA BLES Final Result [facility] [id number] [place] [address] * (ABNORMAL) MICROALB/CREAT RATIO URINE RANDOM PANEL (08/21/2013 9:29 AM FABRIC WORKER SUPERVISOR) Creatinine Urine 129 20 - 320 [...] within a diagnostic category. Test Performed at: [place] [address] PAPO BENNETT DO,MPH Urine specimen (specimen) URINE SPECIMEN OBTAINED BY CLEAN CATCH PROCEDURE / Unknown 08/21/2013 9:29 AM FABRIC WORKER SUPERVISOR 08/22/2013 4:16 AM FABRIC WORKER SUPERVISOR us Salma Hunt DIALYSIS TECH-MECHANICAL ENGINEERING DIRECTOR LAB - URINE CHEMISTRY ORDERABLES Final Result [facility] [id number] [place] [address] from Last 3 Months or Most Recently Relevant to Health Maintenance Insurance ANTHEM ANTHEM Advance Directives * FULL RESUSCITATION (Latest Code Status on File) Date Activated Date Inactivated Comments 05/06/2011 1:35 AM 05/08/2011 5:46 AM Care Teams Assistant Men'S Soccer Coach Relationship Specialty Start Date End Date Jamaal Ibarra DO [address] [place] [phone] PCP - General 06/01/21 Lebron Pugh DO [address] [place] [address] Oncology 06/23/07
--- OUTSIDE RECORDS SUMMARY | 2025-07-19 09:57 | XMS_ITS | Clinical Summary ---
Author Organization [facility] Address [address] [place] [address] Care Team Providers Care Network Engineering Advisor Name Role Phone Jamaal Ibarra DO [...] 09/06/2021 Assessment & Plan (09/06/2021 9:49 AM READING ASSISTANT): -Fatigue is most likely multifactorial as she [...] 09/16/2017 Assessment & Plan (09/06/2021 9:45 AM READING ASSISTANT): -Taking weekly Vitamin D -Will repeat Vitamin D level Type 1 diabetes mellitus with hyperglycemia 03/2017 Nocturia 06/12/2017 Gastroesophageal reflux disease 10/27/2014 Seronegative rheumatoid arthritis 10/27/2014 Swelling of hand 10/27/2014 Fibroid 10/21/2014 Fibromyalgia 06/09/2014 Hypertension 04/27/2014 Assessment & Plan (09/06/2021 9:45 AM READING ASSISTANT): -BP today is 121/81 -Will continue same antihypertensive medications at this time. Hyperlipidemia 04/27/2014 Assessment & Plan (09/06/2021 9:45 AM READING ASSISTANT): -Will continue statin as it is being [...] 01/22/2023 Assessment & Plan (09/06/2021 9:45 AM READING ASSISTANT): -Currently taking MDI -A1C on 09/06/21 was [...] 06/12/201701/05 Assessment & Plan (09/06/2021 9:07 AM READING ASSISTANT): -States she has been off of LT4 for 2 years -Will repeat TFT. Encounters Date Type Department Care Team Description 07/02/2025 11:15 AM CDT Procedure visit [facility] Medicine Ophthalmology 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, [address] [place] [phone] Steven Edmonds MD Pre Cert (2024) 04/26/2025 Orders Only [facility] Endocrinology Metabolism and Lipid [address] [facility] [address] [facility] 13th [place] [address] [place] [phone] Tavia Fung RMA Type 1 diabetes mellitus with hyperglycemia (HCC) (Primary Dx) 04/26/2025 Telephone [facility] Endocrinology Metabolism and Lipid [address] [facility] [address] [facility] 13th [place] [address] [place] [phone] Tavia Fung RMA Medication Change 04/19/2025 Telephone [facility] Endocrinology Metabolism and Lipid [address] [facility] 13th [place] [address] [place] [phone] Tavia Fung RMA Prior Auth (Novolog FlexPen); [...] on file Legal Sex Female 12:16 AM READING ASSISTANT Gender Identity Not on file Sexual [...] HEMOGLOBIN A1C Routine 10/23/2024 8 :29 AM READING ASSISTANT Type 1 diabetes mellitus with hyperglycemia (HCC) [...] mg/0.07 mL Route: intravitreal, Site: Left Eye [facility]: 71798-387-64, Lot: [id number], Expiration date: 03/06/2026, Waste: 0 mL Medication [...] Sample used today b/c of insurance cost [id number] paperwork signed today, 07/02/25 Steven Edmonds MD [...] * POCT hemoglobin A1c (10/23/2024 8:29 AM READING ASSISTANT) Hemoglobin A1C, POC 9.1 4.0 - 5.6 % Blood 10/23/2024 8:29 AM READING ASSISTANT Evelin Monzon NP POINT OF CARE TEST [...] Dorman MD LAB BLOOD ORDERABLES Final Result [facility] Department [place] [address] * Albumin Creatinine Ratio, Urine (01/24/2024) Urine Sarah Haskins MD LAB URINE ORDERABLES Final Resu lt EXTERNAL LAB * TSH (01/24/2024) Blood Sarah Haskins MD LAB BLOOD ORDERABLES Final Resu lt Performing Organization Address [facility]/ZIP Co de Phone Number EXTERNAL LAB * Lipid panel (01/24/2024) Blood Sarah Haskins MD LAB BLOOD ORDERABLES Final Resu lt Performing Organization Address [facility]/ZIP Co de Phone Number EXTERNAL [...] nipple by physician COMPARISON: Outside exams from [place] 09/13/2022to 07/08/2019 TECHNIQUE: Full field digital mammographic [...] her questions were answered. us Saul Ortiz COIL ASSEMBLER IMG MAMMO PROCEDURES Final Result * Hepatitis [...] PM CDT Performed at: 01 - [facility] [address] [id number] Pig Machine Crane Operator: Link Myles PhD, Phone: [phone] us Lorrie Saavedra MD LAB MICROBIOLOGY - GENERAL ORD ERABLES Final Result [facility] from Last 3 Months or Most Recently Relevant to Health Maintenance Insurance IDPA [facility] CHOICE PLUS WORKERS COMPENSATION GENERIC WORKERS COMPENSATION GENERIC Care Teams Network Engineering Advisor Relationship Specialty Start Date End Date Jamaal Ibarra DO PCP - General 10/22/17
--- OUTSIDE RECORDS SUMMARY | 2025-07-19 09:57 | XMS_ITS | Encounter Summary ---
Author Organization [facility] Address [address] [place] [address] Phone Care Team Providers Care Director [employer] Name Role Phone Jamaal Ibarra DO Primary Care Provider Encounter Details Date Type Department Care Team (Late st Contact Info) Description 10/18/2021 Telephone [facility] Medicine Rheumatology [address] [place] [address] 5th [place] [address] [place] [phone] Era Taylor CMA Social History Tobacco Use Types Packs/Day Years Used Date Smoking Tobacco: Never Smokeless Tobacco: Never Comments Unknown Sex and Gender Information Value Date Recorded Sex Assigned at Not on file Legal Sex Female 12:16 AM HEAD SAWYER Gender Identity Not on file Sexual Orientation Not on file documented as of this encounter Plan of Treatment Not on file documented as of this encounter Visit Diagnoses Not on filedocumented in this encounter Care Teams Director [employer] Relationship Specialty Start Date End Date Jamaal Ibarra DO PCP - General 10/22/17 documented as of this encounter
--- OUTSIDE RECORDS SUMMARY | 2025-07-19 09:57 | XMS_ITS | Clinical Summary ---
Author Organization [facility] Address [address] [place] [address] Care Team Providers Care Sales Route Driver Helper Name Role Phone Jamaal Ibarra DO Primary Care Provider [phone] Allergies Active Allergy Reactions Criticality Noted Date [...] CDT - 05/25/2025 5:40 AM CDT Emergency [facility] [place] [address] Fazal Brower MD,PHD Dizziness; Difficulty Urinating; Chest [...] PM CDT Legal Sex Female 10:23 PM UNMANNED EQUIPMENT OPERATOR Gender Identity Not on file Sexual [...] C 1992 DTaP, Tdap and Td Vaccines (2 - Td or Tdap) 07/09/2022 07/09/2012, 09/17/2005 Zoster Vaccines (1 of 2) 2024 Mammogram Screening 01/11/2025 01/11/2023, 3 COVID-19 Vaccine ( - season) 2025 01/04/2021, 12/14/2020 Influenza Adult (#1) 2025 08/03/2022, 09/08/2021, 07/07/2020, Additional history exists Hepatitis B Vaccines Completed 07/28/2019, 08/21/2013, 07/09/2012 Pneumococcal Vaccine: 50+ Years Completed 08/03/2022 Hepatitis A Vaccines Aged Out No long er eligible based on patient's age to complete this topic Meningococcal B Vaccine Aged Out No l onger eligible based on patient's age to complete this topic Meningococcal Vaccine Aged Out No piotr laura eligible based on patient's age to complete this topic RSV Immunizations Under 20 Months Aged Out No longer eligible based on [...] 2.2 <10 MG/DL 05/25/2025 4:18 AM CDT [facility] URINE SPECIMEN / Unknown 05/25/2025 1:35 AM CDT us Fazal Brower MD,PHD URINE ORDERABLES Final Res ult [facility] [address] [place] [address], [place] [phone] * SODIUM URINE RANDOM (05/25/2025 1:35 AM CDT) NA RANDOM (U) 96 MMOL/L 05/25/2025 2:01 AM CDT [facility] Comment: NOTE: The reference range and other method performance specifications have not been determined for chemistry testing in this type of body fluid. Results should be integrated into clinical context for interpretation. URINE SPECIMEN / Unknown 05/25/2025 1:35 AM CDT us Fazal Brower MD,PHD URINE ORDERABLES Final Res ult Performing Organization Address [facility]/ZIP Co de Phone Number [facility] [address] [place] [address], * CREATININE URINE RANDOM (05/25/2025 1:35 AM CDT) CREATININE (U) 84.4 28 - 217 MG/DL 05/25/2025 4:18 AM CDT [facility] URINE SPECIMEN / Unknown 05/25/2025 1:35 AM CDT us Fazal Brower MD,PHD URINE ORDERABLES Final Res ult [facility] [address] [place] [address], [place] [phone] * ECG 12 lead (05/24/2025 9:39 PM CDT) Only the most recent of2 resultswithin the time period is included. 05/24/2025 9:39 PM CDT Narrative [facility] - 05/26/2025 9:[address] [facility] Test Date: 2025-05-24 Pat Name: SILVA LONDONO Department: 41 Room: EXAM12 Gender: Female Manager Government: [id number] : 1975 Requested By: INDERJIT STEWART Order Number: [id number] Reading AKHIL Manzanares Measurements Intervals [place] Rate: 64 P: 147 [place]: 200 QRS: -34 QRSD: 142 T: 149 [...] Procedure Note Juventino Manzanares MD - 05/26/2025 [facility] [address] [place] [address] Test Date: 2025-05-24 Pat Name: SILVA LONDONO Department: 41 Room: EXAM12 Gender: Female Manager Government: [id number] : 1975 Requested By: INDERJIT STEWART Order Number: [id number] Reading AKHIL Manzanares Measurements Intervals [place] Rate: 64 P: 147 [place]: 200 QRS: -34 QRSD: 142 T: 149 [...] Brower MD,PHD ECG ORDERABLES Final Resu lt [facility] * (ABNORMAL) URINALYSIS (05/24/2025 8:25 PM CDT) SPECIMEN TYPE URINE CLEAN CATCH 05/24/2025 8:25 PM CDT [facility] COLOR (U) LIGHT YELLOW 05/24/2025 8:50 PM CDT [facility] TRANSPARENCY CLEAR 05/24/2025 8:50 PM CDT [facility] SPECIFIC GRAVITY (U) 1.015 1.001 - 1.030 05/24/2025 8:50 PM CDT [facility] U PH 6.0 5.0 - 9.0 05/24/2025 8:50 PM CDT [facility] LEUKOCYTES (U) NEGATIVE NEGATIVE 05/24/2025 8:50 PM CDT [facility] NITRITES NEGATIVE NEGATIVE 05/24/2025 8:50 PM CDT [facility] PROTEIN RANDOM (U) 100(H) <30 MG/DL 05/24/2025 8:50 PM CDT [facility] GLUCOSE (U) 150(A) NORMAL MG/DL 05/24/2025 8:50 PM CDT [facility] KETONES MG/DL (U) NEGATIVE NEGATIVE MG/DL 05/24/2025 8:50 PM CDT [facility] UROBILINOGEN NORMAL NORMAL MG/DL 05/24/2025 8:50 PM CDT [facility] BILIRUBIN (U) NEGATIVE NEGATIVE MG/DL 05/24/2025 8:50 PM CDT [facility] BLOOD (U) NEGATIVE NEGATIVE 05/24/2025 8:50 PM CDT [facility] MUCUS RARE /LPF 05/24/2025 8:50 PM CDT [facility] HYALINE CASTS RARE /LPF 05/24/2025 8:50 PM CDT [facility] WBC/HPF 2 <6 /HPF 05/24/2025 8:50 PM CDT [facility] RBC/HPF 3 <6 /HPF 05/24/2025 8:50 PM CDT [facility] BACTERIA (U) RARE(A) NONE /HPF 05/24/2025 8:50 PM CDT [facility] SQUAMOUS EPITHELIALS RARE /HPF 05/24/2025 8:50 PM CDT [facility] URINE SPECIMEN OBTAINED BY CLEAN CATCH PROCEDURE / Unknown 05/24/2025 8:25 PM CDT Carmen CHRISTINA URINE ORDERABLES Final Result [facility] [address] [place] [address], [place] [phone] * XR CHEST PORTABLE (05/24/2025 8:03 PM CDT) Anatomical Region Laterality Modality Chest Fluoroscopy 05/24/2025 8:09 PM CDT Impressions 05/24/2025 8:09 PM CDT IMPRESSION: No acute cardiopulmonary process. Referred By: Interpreted By: Rd Cisneros MD, 05/24/2025 8:09 PM Narrative 05/24/2025 8:09 PM CDT [facility] [address] [place], [place] [address] EXAM: XR CHEST PORTABLE INDICATION: Chest pain, dyspnea COMPARISON: Chest radiograph, 06 Jul 2018 TECHNIQUE: Single frontal radiographic image of the chest FINDINGS: No pneumothorax, pleural effusion, or focal airspace consolidation. Pulmonary vasculature and cardiomediastinal silhouette within normal limits. No acute osseous abnormality. Procedure Note Rd Cisneros MD - 05/24/[address] [address] EXAM: XR CHEST PORTABLE INDICATION: Chest pain, dyspnea COMPARISON: Chest radiograph, 06 Jul 2018 TECHNIQUE: Single frontal radiographic image of the chest FINDINGS: No pneumothorax, pleural effusion, or focal airspace consolidation.Pulmonary vasculature and cardiomediastinal silhouette within normallimits. No acute osseous abnormality. IMPRESSION: No acute cardiopulmonary process. Referred By: Interpreted By: Rd Cisneros MD, 05/24/2025 8:09 PM Carmen Chavez OR GENERAL IMAGING Final Result * (ABNORMAL) COMPREHENSIVE METABOLIC PANEL (05/24/2025 7:03 PM CDT) GLUCOSE 241(H) 70 - 99 MG/DL 05/24/2025 9:10 PM CDT [facility] BUN 53(H) 7 - 18 MG/DL 05/24/2025 9:10 PM CDT [facility] CREATININE S/P/B 3.13(H) 0.55 - 1.02 MG/DL 05/24/2025 9:10 PM CDT [facility] SODIUM S/P/B 136 136 - 145 MMOL/L 05/24/2025 9:10 PM CDT [facility] POTASSIUM S/P/B 3.9 3.5 - 5.1 MMOL/L 05/24/2025 9:10 PM CDT [facility] CHLORIDE S/P/B 105 97 - 115 MMOL/L 05/24/2025 9:10 PM CDT [facility] CO2 24.1 21 - 32 MMOL/L 05/24/2025 9:10 PM CDT [facility] CALCIUM S/P/B 10.3(H) 8.5 - 10.1 MG/DL 05/24/2025 9:10 PM CDT [facility] BILIRUBIN TOTAL S/P/B 0.4 0.2 - 1.2 MG/DL 05/24/2025 9:10 PM CDT [facility] Comment: THIS ASSAY IS NOT RECOMMENDED FOR PATIENTS UNDERGOING TREATMENT WITH ELTROMBOPAG DUE TO THE POTENTIAL FOR FALSELY ELEVATED RESULTS. TOTAL PROTEIN S/P/B 7.5 6.4 - 8.2 G/DL 05/24/2025 9:10 PM CDT [facility] ALBUMIN S/P/B 3.4 3.4 - 5.0 G/DL 05/24/2025 9:10 PM CDT [facility] AST 13(L) 15 - 37 U/L 05/24/2025 9:10 PM CDT [facility] ALT 20 14 - 55 U/L 05/24/2025 9:10 PM T [facility] ALKALINE PHOSPHATASE S/P/B 130 50 - 136 U/L 05/24/2025 9:10 PM CDT [facility] ANION GAP 6.9 2 - 10 MMOL/L 05/24/2025 9:10 PM CDT [facility] BUN CREATININE RATIO 16.9 6 - 26 05/24/2025 9:10 PM CDT [facility] A/G RATIO 0.8(L) 1.0 - 2.0 RATIO 05/24/2025 9:10 PM T [facility] GFR ESTIMATE 17(L) >90 ML/MIN/1.7 3 M2 05/24/2025 9:10 PM CDT [facility] Comment: NOTE: eGFR is not calculated for patients <18 years of age or gender unknown. This is an estimated GFR calculation using the new CKD EPI creatinine equation without race and so does not require a correction factor for race. This estimated GFR should not be used for calculating drug doses. 05/24/2025 7:03 PM CDT Carmen CH[facility] Final Result [facility] [address] [place] [address], [place] [phone] * (ABNORMAL) CBC W/DIFF AUTOMATED (05/24/2025 7:03 PM CDT) WBC 11.11(H) 4.5 - 11.0 x10'3/uL 05/24/2025 8:37 PM CDT [facility] RBC 4.45 4.20 - 5.40 x10'6/uL 05/24/2025 8:37 PM CDT [facility] HGB 12.8 12.0 - 16.0 G/DL 05/24/2025 8:37 PM CDT [facility] HCT 39.0 38.0 - 48.0 % 05/24/2025 8:37 PM CDT [facility] MCV 87.6 81.0 - 99.0 FL 05/24/2025 8:37 PM CDT [facility] MCH 28.8 27.0 - 31.0 PG 05/24/2025 8:37 PM CDT [facility] MCHC 32.8 32.0 - 36.0 G/DL 05/24/2025 8:37 PM CDT [facility] RDW 14.1 11.5 - 14.5 % 05/24/2025 8:37 PM CDT [facility] PLT 226 130 - 400 x10'3/uL 05/24/2025 8:37 PM CDT [facility] MPV 10.5 9.3 - 12.2 FL 05/24/2025 8:37 PM CDT [facility] DIFFERENTIAL TYPE AUTOMATED DIFFERENTIAL 05/24/2025 8:37 PM CDT [facility] NEUTROPHILS % 70.4 % 05/24/2025 8:37 PM CDT [facility] LYMPHOCYTES % 22.3 % 05/24/2025 8:37 PM CDT [facility] MONOCYTES % 4.6 % 05/24/2025 8:37 PM CDT [facility] EOSINOPHILS 1.7 % 05/24/2025 8:37 PM CDT [facility] BASOPHILS 0.4 % 05/24/2025 8:37 PM CDT [facility] IMMATURE GRANS % 0.6 % 05/24/20 8:37 PM CDT [facility] ABS. NEUTROPHILS 7.82(H) 1.80 - 7.70 x10'3/uL 05/24/2025 8:37 PM CDT [facility] ABS. LYMPHOCYTES 2.48 1.00 - 4.80 x10'3/uL 05/24/2025 8:37 PM CDT [facility] ABS. MONOCYTES 0.51 0.24 - 0.86 x10'3/uL 05/24/2025 8:37 PM CDT [facility] ABS. EOSINOPHILS 0.19 0.04 - 0.36 x10'3/uL 05/24/2025 8:37 PM CDT [facility] ABS. BASOPHILS 0.04 0.01 - 0.08 x10'3/uL 05/24/2025 8:37 PM CDT [facility] ABS. IMMATURE GRANULOCYTES 0.07 0.00 - 0.49 x10'3/uL 05/24/2025 8:37 PM CDT [facility] 05/24/2025 7:03 PM CDT [facility]en [facility]ST[facility] Final Result Performing Organization Address City/[facility]/ZIP Co de Phone Number [facility] [address] [place] [address], [place] [phone] * TROPONIN, QUANT (05/24/2025 7:03 PM CDT) TROPONIN I HIGH SENSITIVITY 23 <54 ng/L 05/24/2025 9:10 PM CDT [facility] Comment: HIGH DOSES OF BIOTIN, TROPONIN-SPECIFIC AUTOANTIBODIES, AND ANTIBODY THERAPY CONTAINING HAMA MAY INTERFERE WITH THIS TEST RESULT. CORRELATION TO CLINICAL HISTORY AND PRESENTATION RECOMMENDED. 05/24/2025 7:03 PM CDT [facility] CH[facility]ST[facility] Final Result Performing Organization Address [facility] Co de Phone Number [facility] [address] [place] [address], [place] [phone] * MAGNESIUM (05/24/2025 7:03 PM CDT) Pathologist [facility] MAGNESIUM 2.0 1.8 - 2.4 MG/DL 05/24/2025 9:10 PM CDT [facility] 05/24/2025 7:03 PM CDT Carmen CHRISTINA [facility] Final Result Performing Organization Address City/[facility]/ZIP Co de Phone Number [facility] [address] [place] [address], from Last 3 Months Insurance [facility] Care Teams Sales Route Driver Helper Relationship Specialty Start Date End Date Jamaal Ibarra DO [address] [place], [place] [id number] PCP - General INTERNAL MEDICINE 07/02/23
--- OUTSIDE RECORDS SUMMARY | 2025-07-19 09:57 | XMS_ITS | Encounter Summary ---
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
--- OUTSIDE RECORDS SUMMARY | 2025-07-19 09:57 | XMS_ITS | Encounter Summary ---
Author Organization [facility] Address [address] [place] [address] Phone Care Team Providers Care Audio Visual Specialist Name Role Phone Jamaal Ibarra DO Primary Care Provider Encounter Details Date Type Department Care Team (Late st Contact Info) Description 08/03/2021 Orders Only [facility] Medicine Rheumatology [address] [facility] [address] [place] [address] [place] [address] Jana Medley CMA Social History Tobacco Use Types Packs/Day Years Used Date Smoking Tobacco: Never Comments Unknown Sex and Gender Information Value Date Recorded Sex Assigned at Not on file Legal Sex Female 12:16 AM ACADEMIC AFFAIRS DIRECTOR Gender Identity Not on file Sexual Orientation Not on file documented as of this encounter Plan of Treatment Not on file documented as of this encounter Visit Diagnoses Not on filedocumented in this encounter Care Teams Audio Visual Specialist Relationship Specialty Start Date End Date Jamaal Ibarra DO PCP - General 10/22/17 documented as of this encounter
--- OUTSIDE RECORDS SUMMARY | 2025-07-19 09:57 | XMS_ITS | Clinical Summary ---
Author Organization [facility] Address [address] [place] [address] Phone Care Team Providers Care Other Spatial Scientist Name Role Phone JeanniesvetaJamaal jernigan Primary Care Provider [phone] Allergies Active Allergy Reactions Criticality Noted Date [...] 2 Active ergocalciferol (VITAMIN D2) 1.25 MG (28967 UT) capsule TAKE 1 CAPSULE BY MOUTH [...] Comments Blood Pressure 128/72 09/05/2022 8:31 AM DATA COMPILER Pulse - - Temperature 36.5 C (97.7 F) 09/05/2022 8:31 AM DATA COMPILER Respiratory Rate 18 09/05/2022 8:31 AM DATA COMPILER Oxygen Saturation - - Inhaled Oxygen Concentration - - Weight 121 kg (267 lb) 09/05/2022 8:31 AM DATA COMPILER Height 172.7 cm (5' 8) 09/05/2022 8:31 AM DATA COMPILER Body Mass Index 40.6 09/05/2022 8:31 AM DATA COMPILER Plan of Treatment Health Maintenance Due Date Last Done Comments Influenza Vaccine (#1) 2025 0, 07/30/2019, 07/16/2018, Additional history exists Insurance [facility] Care Teams Other Spatial Scientist Relationship Specialty Start Date End Date Jamaal Ibarra DO [address] [place] [address] PCP - General Internal Medicine 05/07/22
--- OUTSIDE RECORDS SUMMARY | 2025-07-19 09:57 | XMS_ITS | Encounter Summary ---
Author Organization [facility] Address [address] [place] [address] Care Team Providers Care Alteration Inspector Name Role Phone Jamaal Ibarra DO Primary Care Provider Encounter Details Date Type Department Care Team (Latest Contact Info) Description 03/23/2002 Outpatient Historical [facility] [place] [address] [place] [address] MENSTRUAL DISORDER NEC (Primary Dx) Social History Tobacco Use Types Packs/Day Years Used Date Smoking Tobacco: Never Assessed Comments Unknown Sex and Gender Information Value Date Recorded Sex Assigned at Not on file Legal Sex Female 3:50 AM APRICOT WASHER Gender Identity Not on file Sexual Orientation [...] documented as of this encounter Care Teams Alteration Inspector Relationship Specialty Start Date End Date Jamaal Ibarra DO [address] [facility] [address] [place] [address] PCP - General Internal Medicine 07/11/18 documented as of this encounter
[2025-07-19 13:13] LABS: Albumin Level 4.1 g/dL (3.5-5.1); Anion Gap 10 mmol/L (4-12); Blood Urea Nitrogen 42 mg/dL (7-17); Calcium 10.4 mg/dL (8.4-10.2); Carbon Dioxide 22 mmol/L (22-30); Chloride 105 mmol/L (98-107); Estimated Glomerular Filt Rate 15; Glucose 294 mg/dL (65-110); Potassium 4.3 mmol/L (3.4-5.0); Sodium 137 mmol/L (137-145)
[2025-07-19 13:50] LABS: Parathyroid Intact 279.0 pg/mL (14.5-75.2)
[2025-07-19 14:16] LABS: Total Protein Urine Random 266 mg/dL; Ur Ttl Prot Creatinine Ratio 2.53 mg/mg (0-0.20)
== END 2025-07-19 09:25 | disposition home or self-care (01) ==
LOC: ANHGOSHLAB 09:25
PROVIDERS: PCP Internal Medicine; Visit Provider Internal Medicine Nephrology
DX: I12.9 Hypertensive chronic kidney disease with stage 1 through stage 4 chronic kidney disease, or unspecified chronic kidney disease (principal); N18.4 Chronic kidney disease, stage 4 (severe); E83.42 Hypomagnesemia; E10.22 Type 1 diabetes mellitus with diabetic chronic kidney disease
CPT/HCPCS: 36415; 80069; 82306; 82570; 83970; 84156

== ENCOUNTER 2025-07-19 09:57 | Outpatient (CLI) | payer OTHER, SELFPAY ==
--- NOTE | ~2025-07-19 | XR_ITS ---
EXAMINATION: XR abdomen obstructive series, 07/19/2025 10:08 CDT HISTORY: K58.1 - Irritable bowel syndrome with constipation COMPARISON: Comparison 07/12/2025 Technique: 3 view. Findings: There are thickened loops of large bowel which may relate to underlying colitis, no dilated bowel loops appreciated. No free air. No abnormal calcifications No acute osseous abnormality. Impression: 1. Possible colitis. CT suggested to assess as clinically warranted Reviewed, dictated and finalized at location P. Impression: 1. Possible colitis. CT suggested to assess as clinically warranted
== END 2025-07-19 09:58 | disposition home or self-care (01) ==
LOC: GOSHIMG 09:57
PROVIDERS: PCP Internal Medicine; Visit Provider Internal Medicine
DX: K58.1 Irritable bowel syndrome with constipation (principal); K59.01 Slow transit constipation; R19.7 Diarrhea, unspecified; R10.9 Unspecified abdominal pain
CPT/HCPCS: 74019

== ENCOUNTER 2025-07-21 18:42 | Emergency (ER) | payer OTHER, SELFPAY ==
--- OUTSIDE RECORDS SUMMARY | 2019-07-08 | XMS_ITS | Encounter Summary ---
Author Organization [facility] Healthcare Address [address] [place] [address] Care Team Providers Care Group Counselor Name Role Phone Jamaal Ibarra DO Primary Care Provider Reason for Visit * Diagnostic Imaging (Routine) - Closed Specialty Diagnoses / Procedures Referred By Liz borrero Referred To Contact Procedures Breast Imaging Screening Outside Reference Saul Ortiz NP Phone: tel: fax: Referral ID Status Reason Start Date Expiration Date Visits Re quested Visits Authorized [id number] Closed 10/16/2022 11/15/2023 1 1 Encounter Details Date Type Department Care Team (Late st Contact Info) Description 07/08/2019 Hospital Encounter [facility] [place] [address] Social History Tobacco Use Types [...] on file 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 There will be no report generated by a [facility] Radiologist. Narrative [facility] - 10/16/2022 11:48 AM VIDEO EDITOR EXAMINATION: Images For Reference Purposes Only us Saul Ortiz NP IMG MAMMO PROCEDURES Final Result [facility] documented in this encounter Visit Diagnoses Not on filedocumented in this encounter Care Teams Group Counselor Relationship Specialty Start Date End Date Jamaal Ibarra DO PCP - General 10/22/17 documented as of this encounter
--- OUTSIDE RECORDS SUMMARY | 2019-07-08 | XMS_ITS | Encounter Summary ---
Author Organization [facility] Healthcare Address [address] [place] [address] Care Team Providers Care Bar Helper Name Role Phone Jamaal Ibarra DO Primary Care Provider Reason for Visit * Diagnostic Imaging (Routine) - Closed Specialty Diagnoses / Procedures Referred By Lzi borrero Referred To Contact Procedures Breast Imaging Screening Outside Reference Saul Ortiz NP Phone: tel: fax: Referral ID Status Reason Start Date Expiration Date Visits Re quested Visits Authorized [id number] Closed 10/16/2022 11/15/2023 1 1 Encounter Details Date Type Department Care Team (Late st Contact Info) Description 07/08/2019 Hospital Encounter [facility]iology [facility] [place] [address] Social History Tobacco Use Types [...] on file Legal Sex Female 12:16 AM IMPORT/EXPORT CLERK Gender Identity Not on file Sexual Orientation [...] CDT) Impressions [facility] - 10/16/2022 11:48 AM IMPORT/EXPORT CLERK These images are for Reference purposes only and have not been reviewed by [facility] Radiology. There will be no report generated by a [facility] Radiologist. Narrative RAD[facility] - 10/16/2022 11:48 AM IMPORT/EXPORT CLERK EXAMINATION: Images For Reference Purposes Only us Saul Ortiz NP IMG MAMMO PROCEDURES Final Result [facility] documented in this encounter Visit Diagnoses Not on filedocumented in this encounter Care Teams Bar Helper Relationship Specialty Start Date End Date Jamaal Ibarra DO PCP - General 10/22/17 documented as of this encounter
--- OUTSIDE RECORDS SUMMARY | 2019-07-15 | XMS_ITS | Encounter Summary ---
Author Organization [facility] Healthcare Address [address] [place] [address] Care Team Providers Care Oil Heaterman Name Role Phone Jamaal Ibarra DO Primary Care Provider Reason for Visit * Diagnostic Imaging (Routine) - Closed Specialty Diagnoses / Procedures Referred By Liz borrero Referred To Contact Procedures Breast Imaging US Outside Reference Saul Ortiz NP Phone: tel: fax: Referral ID Status Reason Start Date Expiration Date Visits Re quested Visits Authorized [id number] Closed 10/16/2022 11/15/2023 1 1 Encounter Details Date Type Department Care Team (Late st Contact Info) Description 07/15/2019 Hospital Encounter [facility] Radiology [facility] [place] [address] Social History Tobacco Use Types [...] on file Legal Sex Female 12:16 AM VERTICAL PUNCH OPERATOR Gender Identity Not on file Sexual Orientation Not on file documented as of this encounter Plan of Treatment Not on file documented as of this encounter Procedures Procedure Name Priority Date/Time Associated Diagnosis Comments BREAST IMAGING US OUTSIDE REFERENCE Routine 07/15/2019 12:00 AM CDT documented in this encounter Results * Breast Imaging US Outside Reference (07/15/2019 12:00 AM CDT) Impressions [facility] - 10/16/2022 11:47 AM VERTICAL PUNCH OPERATOR These images are for Reference purposes only and have not been reviewed by [facility] Radiology. There will be no report generated by a [facility] Radiologist. Narrative RAD_M[facility] - 10/16/2022 11:47 AM VERTICAL PUNCH OPERATOR EXAMINATION: Images For Reference Purposes Only us Saul Ortiz NP IMG MAMMO PROCEDURES Final Result [facility] documented in this encounter Visit Diagnoses Not on filedocumented in this encounter Care Teams Oil Heaterman Relationship Specialty Start Date End Date Jamaal Ibarra DO PCP - General 10/22/17 documented as of this encounter
--- OUTSIDE RECORDS SUMMARY | 2019-07-15 | XMS_ITS | Encounter Summary ---
Author Organization [facility] Healthcare Address [address] [place] [address] Care Team Providers Care Gaming Director Name Role Phone Jamaal Ibarra DO Primary Care Provider Reason for Visit * Diagnostic Imaging (Routine) - Closed Specialty Diagnoses / Procedures Referred By Liz borrero Referred To Contact Procedures Breast Imaging US Outside Reference Saul Ortiz NP Phone: tel: fax: Referral ID Status Reason Start Date Expiration Date Visits Re quested Visits Authorized [id number] Closed 10/16/2022 11/15/2023 1 1 Encounter Details Date Type Department Care Team (Late st Contact Info) Description 07/15/2019 Hospital Encounter [facility]iology [facility] [place] [address] Social History Tobacco Use Types [...] on file 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 Radiology. There will be no report generated by a [facility] Radiologist. Narrative RAD_M[facility] - 10/16/2022 11:47 AM PITCH WORKER EXAMINATION: Images For Reference Purposes Only us Saul Ortiz NP IMG MAMMO PROCEDURES Final Result [facility] documented in this encounter Visit Diagnoses Not on filedocumented in this encounter Care Teams Gaming Director Relationship Specialty Start Date End Date Jamaal Ibarra DO PCP - General 10/22/17 documented as of this encounter
--- OUTSIDE RECORDS SUMMARY | 2019-07-15 00:05 | XMS_ITS | Encounter Summary ---
Author Organization [facility] Healthcare Address [address] [place] [address] Care Team Providers Care Stator Winder Name Role Phone Jamaal Ibarra DO Primary Care Provider Reason for Visit * Diagnostic Imaging (Routine) - Closed Specialty Diagnoses / Procedures Referred By Liz borrero Referred To Contact Procedures Breast Imaging Diagnostic Outside Reference Saul Ortiz NP Phone: tel: fax: Referral ID Status Reason Start Date Expiration Date Visits Re quested Visits Authorized [id number] Closed 10/16/2022 11/15/2023 1 1 Encounter Details Date Type Department Care Team (Late st Contact Info) Description 07/15/2019 12:05 AM CDT Hospital Encounter [facility] Radiology [facility] [address] [place] [address] Social History Tobacco Use Types Packs/Day Years [...] on file Legal Sex Female 12:16 AM RECREATION ACTIVITIES COORDINATOR Gender Identity Not on file Sexual Orientation [...] CDT) Impressions [facility] - 10/16/2022 11:47 AM RECREATION ACTIVITIES COORDINATOR These images are for Reference purposes only and have not been reviewed by [facility] Radiology. There will be no report generated by a [facility] Radiologist. Narrative [facility] - 10/16/2022 11:47 AM RECREATION ACTIVITIES COORDINATOR EXAMINATION: Images For Reference Purposes Only us Saul Ortiz NP IMG MAMMO PROCEDURES Final Result [facility] documented in this encounter Visit Diagnoses Not on filedocumented in this encounter Care Teams Stator Winder Relationship Specialty Start Date End Date Jamaal Ibarra DO PCP - General 10/22/17 documented as of this encounter
--- OUTSIDE RECORDS SUMMARY | 2019-07-15 00:05 | XMS_ITS | Encounter Summary ---
Author Organization [facility] Healthcare Address [address] [place] [address] Care Team Providers Care Fabrication Mig Welder Name Role Phone Jamaal Ibarra DO Primary Care Provider Reason for Visit * Diagnostic Imaging (Routine) - Closed Specialty Diagnoses / Procedures Referred By Liz borrero Referred To Contact Procedures Breast Imaging Diagnostic Outside Reference Saul Ortiz NP Phone: tel: fax: Referral ID Status Reason Start Date Expiration Date Visits Re quested Visits Authorized [id number] Closed 10/16/2022 11/15/2023 1 1 Encounter Details Date Type Department Care Team (Late st Contact Info) Description 07/15/2019 12:05 AM CDT Hospital Encounter [facility]iology [facility] [address] [place] [address] Social History Tobacco Use Types Packs/Day Years [...] on file Legal Sex Female 12:16 AM SETTER MACHINE Gender Identity Not on file Sexual Orientation [...] CDT) Impressions [facility] - 10/16/2022 11:47 AM SETTER MACHINE These images are for Reference purposes only and have not been reviewed by [facility] Radiology. There will be no report generated by a [facility] Radiologist. Narrative RAD_M[facility] - 10/16/2022 11:47 AM SETTER MACHINE EXAMINATION: Images For Reference Purposes Only us Saul Ortiz NP IMG MAMMO PROCEDURES Final Result [facility] documented in this encounter Visit Diagnoses Not on filedocumented in this encounter Care Teams Fabrication Mig Welder Relationship Specialty Start Date End Date Jamaal Ibarra DO PCP - General 10/22/17 documented as of this encounter
--- OUTSIDE RECORDS SUMMARY | 2020-04-29 | XMS_ITS | Encounter Summary ---
Author Organization [facility] Healthcare Address [address] [place] [address] Care Team Providers Care Veneer Taping Machine Offbearer Name Role Phone Jamaal Ibarra DO Primary Care Provider Reason for Visit * Diagnostic Imaging (Routine) - Closed Specialty Diagnoses / Procedures Referred By Liz borrero Referred To Contact Procedures Breast Imaging US Outside Reference Saul Ortiz NP Phone: tel: fax: Referral ID Status Reason Start Date Expiration Date Visits Re quested Visits Authorized [id number] Closed 10/16/2022 11/15/2023 1 1 Encounter Details Date Type Department Care Team (Late st Contact Info) Description 04/29/2020 Hospital Encounter [facility] [address] [place] [phone] Social History Tobacco Use Types Packs/Day [...] on file Legal Sex Female 12:16 AM BUSINESS TECHNOLOGY ANALYST Gender Identity Not on file Sexual Orientation Not on file documented as of this encounter Plan of Treatment Not on file documented as of this encounter Procedures Procedure Name Priority Date/Time Associated Diagnosis Comments BREAST IMAGING US OUTSIDE REFERENCE Routine 04/29/2020 12:00 AM CDT documented in this encounter Results * Breast Imaging US Outside Reference (04/29/2020 12:00 AM CDT) Impressions [facility] - 10/16/2022 11:47 AM BUSINESS TECHNOLOGY ANALYST These images are for Reference purposes only and have not been reviewed by [facility]. There will be no report generated by a [facility] Radiologist. Narrative [facility] - 10/16/2022 11:47 AM BUSINESS TECHNOLOGY ANALYST EXAMINATION: Images For Reference Purposes Only us Saul Ortiz NP IMG MAMMO PROCEDURES Final Result [facility] documented in this encounter Visit Diagnoses Not on filedocumented in this encounter Care Teams Veneer Taping Machine Offbearer Relationship Specialty Start Date End Date Jamaal Ibarra DO PCP - General 10/22/17 documented as of this encounter
--- OUTSIDE RECORDS SUMMARY | 2020-04-29 00:05 | XMS_ITS | Encounter Summary ---
Author Organization [facility] Healthcare Address [address] [place] [address] Care Team Providers Care Marker Hand Name Role Phone Jamaal Ibarra DO Primary Care Provider Reason for Visit * Diagnostic Imaging (Routine) - Closed Specialty Diagnoses / Procedures Referred By Liz borrero Referred To Contact Procedures Breast Imaging Diagnostic Outside Reference Saul Ortiz NP Phone: tel: fax: Referral ID Status Reason Start Date Expiration Date Visits Re quested Visits Authorized [id number] Closed 10/16/2022 11/15/2023 1 1 Encounter Details Date Type Department Care Team (Late st Contact Info) Description 04/29/2020 12:05 AM CDT Hospital Encounter [facility] Radiology [facility] [address] [place] [address] Social History Tobacco Use Types Packs/Day Years [...] on file Legal Sex Female 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 There will be no report generated by a [facility] Radiologist. Narrative RAD_MAMMO[facility] - 10/16/2022 11:47 AM SUPERVISOR MACHINE WORKERS EXAMINATION: Images For Reference Purposes Only us Sual Ortiz NP IMG MAMMO PROCEDURES Final Result [facility] documented in this encounter Visit Diagnoses Not on filedocumented in this encounter Care Teams Marker Hand Relationship Specialty Start Date End Date Jamaal Ibarra DO PCP - General 10/22/17 documented as of this encounter
--- OUTSIDE RECORDS SUMMARY | 2020-04-29 00:05 | XMS_ITS | Encounter Summary ---
Author Organization [facility] Healthcare Address [address] [place] [address] Care Team Providers Care Labor Operator Name Role Phone Jamaal Ibarra DO Primary Care Provider Reason for Visit * Diagnostic Imaging (Routine) - Closed Specialty Diagnoses / Procedures Referred By Liz borrero Referred To Contact Procedures Breast Imaging Diagnostic Outside Reference Saul Ortiz NP Phone: tel: fax: Referral ID Status Reason Start Date Expiration Date Visits Re quested Visits Authorized [id number] Closed 10/16/2022 11/15/2023 1 1 Encounter Details Date Type Department Care Team (Late st Contact Info) Description 04/29/2020 12:05 AM CDT Hospital Encounter [facility] [address] [place] [address] Social History Tobacco Use Types Packs/Day Years [...] on file Legal Sex Female 12:16 AM FLOOR CARE SPECIALIST Gender Identity Not on file [...] CDT) Impressions [facility] - 10/16/2022 11:47 AM FLOOR CARE SPECIALIST These images are for Reference purposes only and have not been reviewed by [facility] Radiology. There will be no report generated by a [facility] Radiologist. Narrative RAD_MAMMO[facility] - 10/16/2022 11:47 AM FLOOR CARE SPECIALIST EXAMINATION: Images For Reference Purposes Only us Saul Ortiz NP IMG MAMMO PROCEDURES Final Result [facility] documented in this encounter Visit Diagnoses Not on filedocumented in this encounter Care Teams Labor Operator Relationship Specialty Start Date End Date Jamaal Ibarra DO PCP - General 10/22/17 documented as of this encounter
--- NOTE | ~2025-07-21 | CT_ITS ---
CT ABDOMEN AND PELVIS WITHOUT CONTRAST Clinical History: abd pain, rectal bleeding Comparison: CT abdomen and pelvis 07/12/2025 Abdominal x-ray 07/19/2025 Technique: Unenhanced axial images lung bases to symphysis pubis Coronal, sagittal reformats CT images acquired with automatic exposure control for dose reduction DLP: 1523 mGy-cm Findings: Without intravenous contrast, sensitivity for detecting visceral parenchymal abnormalities decreased. Lung bases: Clear. Visualized heart and pericardium: Cardiomegaly. Small pericardial fluid. Liver: Enlarged. Ill-defined foci of hypodensity left lobe persist. Gallbladder: Removed. Spleen: Enlarged. Pancreas: Unremarkable. Adrenal glands: Unremarkable. Kidneys: Right kidney- No hydronephrosis. 4 mm stone. Left kidney- No hydronephrosis. No renal stones. Distal esophagus/stomach: Unremarkable. Small bowel loops: Normal caliber and wall thickness. Colon: Mild distal rectal wall thickening not excluded. Normal RLQ appendix. Nodes: No enlarged nodes. Peritoneum: No ascites. No free intraperitoneal air. Urinary bladder: Unremarkable. Uterus: Removed. Adnexa: No masses. Bones: No acute bony abnormality. Soft tissues: Unremarkable. Unopacified abdominal aorta: No aneurysmal dilatation. IMPRESSION: 1. Mild distal rectal wall thickening not excluded. Consider colonoscopy. 2. Otherwise no acute findings or significant change. 3. Ill-defined left lobe liver foci as before, most likely fatty deposition. Recommend ultrasound 3 months. Reviewed, dictated and finalized at location R. IMPRESSION: 1. Mild distal rectal wall thickening not excluded. Consider colonoscopy. 2. Otherwise no acute findings or significant change. 3. Ill-defined left lobe liver foci as before, most likely fatty deposition. R ecommend ultrasound 3 months.
[2025-07-21 18:43] VITALS: BP 117/76; PULSE 80; RESP 16; TEMP 36.6; O2SAT 98
--- OUTSIDE RECORDS SUMMARY | 2025-07-21 18:44 | XMS_ITS | Clinical Summary ---
Author Organization [facility] [employer] Address [address] [place] [address] Care Team Providers Care Workforce Planning Analyst Name Role Phone Lebron Pugh V. DO Unavailable [phone] Jamaal Ibarra DO Primary Care Provider Source Comments [facility],non-owned Affiliates and Associated Physician Practices is amultiple site organization consisting of ambulatory clinics and hospital sitesin [place], [place], [place] and [place]. This disclosure is being madepursuant to the Care Everywhere program and may not contain all information available regarding this patient. Last updated 18.[facility] Allergies Active Allergy Reactions Criticality Noted [...] tablet 2 Active vitamin D, ergocalciferol, (DRISDOL) 20995 UNITS capsule 1 Active gabapentin (NEURONTIN) 300 MG capsule 2 Active simvastatin (ZOCOR) 20 MG tablet 1 Active traMADol (ULTRAM) 50 MG tablet 1 014 Active traZODone (DESYREL) 50 MG tablet 6 Active zolpidem (AMBIEN) 10 MG tablet 5 Active megestrol (MEGACE) 40 MG tablet Take 1 Tab by mouth once daily. 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 file Not on file Not on file Last Filed Vital Signs Vital Sign Reading Time Taken Comments Blood Pressure 126/74 10/21/2014 11:57 AM MEMS DEVICE SCIENTIST Pulse 102 09/16/2013 1:06 PM MEMS DEVICE SCIENTIST Temperature 36.8 C (98.2 F) 09/16/2013 1:06 PM MEMS DEVICE SCIENTIST Respiratory Rate 20 09/16/2013 1:06 PM MEMS DEVICE SCIENTIST Oxygen Saturation 98% 09/16/2013 1:06 PM MEMS DEVICE SCIENTIST Inhaled Oxygen Concentration - - Weight 89.8 kg (198 lb) 10/21/2014 11:57 AM MEMS DEVICE SCIENTIST Height 172.7 cm (5' 8) 10/21/2014 11:57 AM MEMS DEVICE SCIENTIST Body Mass Index 30.11 10/21/2014 11:57 AM MEMS DEVICE SCIENTIST Plan of Treatment Health Maintenance Due Date [...] MAMMO BILAT SCREENING Routine 09/22/2013 8:09 AM MEMS DEVICE SCIENTIST Screening COMPREHENSIVE METABOLIC PANEL Routine 08/22/2013 8:00 AM MEMS DEVICE SCIENTIST DM w/o Complication Type II, Uncontrolled HTN (hypertension), benign Abdominal pain, RUQ (right upper quadrant) Ketonuria HEMOGLOBIN A1C Routine 08/22/2013 8:00 AM MEMS DEVICE SCIENTIST DM w/o Complication Type II, Uncontrolled MICROALB/CREAT RATIO URINE RANDOM PANEL Routine 08/21/2013 9:29 AM MEMS DEVICE SCIENTIST DM w/o Complication Type II, Uncontrolled from Last 3 Months or Most Recently Relevant to Health Maintenance Results * MAMM SCREENING DIGITAL IMAGE BILAT G0202 (09/22/2013 8:09 AM MEMS DEVICE SCIENTIST) Anatomical Region Laterality Modality Breast Bilateral Mammography 09/22/2013 11:5 3 AM MEMS DEVICE SCIENTIST Impressions 09/22/2013 11:56 AM MEMS DEVICE SCIENTIST No malignant abnormality identified. No significant change. BI-RADS category 1. Negative. RECOMMENDATIONS: Routine mammograms in one year. Narrative 09/22/2013 11:56 AM MEMS DEVICE SCIENTIST Screening mammogram: HISTORY: Screening mammogram. Two views [...] * (ABNORMAL) HEMOGLOBIN A1C (08/22/2013 8:00 AM MEMS DEVICE SCIENTIST) Hemoglobin A1c 12.6(H) <5.7 % of total [...] of diabetes for children. Test Performed at: [facility] [address] [place] [address] PAPO BENNETT DO,MPH Whole blood specimen (specimen) BLOOD SPECIMEN / Unknown 08/22/2013 4:53 AM MEMS DEVICE SCIENTIST Salma Viet Hunt WAREHOUSE UNLOADER-DIVIDEND DEPOSIT ENTRY CLERK LAB - CHEMISTRY ORDERA BLES Final Result [facility] [address] [place] [address] * (ABNORMAL) COMPREHENSIVE METABOLIC PANEL (08/22/2013 8:00 AM MEMS DEVICE SCIENTIST) Glucose 312(H) 65 - 99 mg/dL [facility] [...] 29 U/L [facility] Comment: Test Performed at: [facility] [employer] [address] PAPO BENNETT DO,MPH Blood specimen (specimen) BLOOD SPECIMEN / Unknown 08/22/2013 4:53 AM MEMS DEVICE SCIENTIST Salma Hunt WAREHOUSE UNLOADER-DIVIDEND DEPOSIT ENTRY CLERK LAB - CHEMISTRY ORDERA BLES Final Result [facility] [id number] [place] [address] * (ABNORMAL) MICROALB/CREAT RATIO URINE RANDOM PANEL (08/21/2013 9:29 AM MEMS DEVICE SCIENTIST) Creatinine Urine 129 20 - 320 mg/dL [...] within a diagnostic category. Test Performed at: [facility] [place] [address] PAPO BENNETT DO,MPH Urine specimen (specimen) URINE SPECIMEN OBTAINED BY CLEAN CATCH PROCEDURE / Unknown 08/21/2013 9:29 AM MEMS DEVICE SCIENTIST 08/22/2013 4:16 AM MEMS DEVICE SCIENTIST us Salma Hunt WAREHOUSE UNLOADER-DIVIDEND DEPOSIT ENTRY CLERK LAB - URINE CHEMISTRY ORDERABLES Final Result [facility] [id number] [place] [address] from Last 3 Months or Most Recently Relevant to Health Maintenance Insurance ANTHEM ANTHEM Advance Directives * FULL RESUSCITATION (Latest Code Status on File) Date Activated Date Inactivated Comments 05/06/2011 1:35 AM 05/08/2011 5:46 AM Care Teams Workforce Planning Analyst Relationship Specialty Start Date End Date Jamaal Ibarra DO [address] [place] [id number] PCP - General 06/01/21 Lebron Pugh DO [address] [place] [address] Oncology 06/23/07
--- OUTSIDE RECORDS SUMMARY | 2025-07-21 18:44 | XMS_ITS | Clinical Summary ---
Author Organization [facility] Address [address] [place] [address] Phone Care Team Providers Care Hand Packer/Packager Name Role Phone JeanniesvetaJamaal jernigan Primary Care Provider [phone] Allergies Active Allergy Reactions Criticality Noted Date [...] 2 Active ergocalciferol (VITAMIN D2) 1.25 MG (48988 UT) capsule TAKE 1 CAPSULE BY MOUTH [...] Comments Blood Pressure 128/72 09/05/2022 8:31 AM APPLICATION SOFTWARE ENGINEER Pulse - - Temperature 36.5 C (97.7 F) 09/05/2022 8:31 AM APPLICATION SOFTWARE ENGINEER Respiratory Rate 18 09/05/2022 8:31 AM APPLICATION SOFTWARE ENGINEER Oxygen Saturation - - Inhaled Oxygen Concentration - - Weight 121 kg (267 lb) 09/05/2022 8:31 AM APPLICATION SOFTWARE ENGINEER Height 172.7 cm (5' 8) 09/05/2022 8:31 AM APPLICATION SOFTWARE ENGINEER Body Mass Index 40.6 09/05/2022 8:31 AM APPLICATION SOFTWARE ENGINEER Plan of Treatment Health Maintenance Due Date Last Done Comments Influenza Vaccine (#1) 2025 0, 07/30/2019, 07/16/2018, Additional history exists Insurance [facility] Care Teams Hand Packer/Packager Relationship Specialty Start Date End Date Jamaal Ibarra DO [address] [place] [address] PCP - General Internal Medicine 05/07/22
--- OUTSIDE RECORDS SUMMARY | 2025-07-21 18:44 | XMS_ITS | Clinical Summary ---
Author Organization [facility] Address [address] [place] [address] Care Team Providers Care Earth Science Faculty Member Name Role Phone Jamaal Ibarra DO [...] 09/06/2021 Assessment & Plan (09/06/2021 9:49 AM PRIMARY OPERATOR): -Fatigue is most likely multifactorial as [...] 09/16/2017 Assessment & Plan (09/06/2021 9:45 AM PRIMARY OPERATOR): -Taking weekly Vitamin D -Will repeat Vitamin D level Type 1 diabetes mellitus with hyperglycemia 03/2017 Nocturia 06/12/2017 Gastroesophageal reflux disease 10/27/2014 Seronegative rheumatoid arthritis 10/27/2014 Swelling of hand 10/27/2014 Fibroid 10/21/2014 Fibromyalgia 06/09/2014 Hypertension 04/27/2014 Assessment & Plan (09/06/2021 9:45 AM PRIMARY OPERATOR): -BP today is 121/81 -Will continue same antihypertensive medications at this time. Hyperlipidemia 04/27/2014 Assessment & Plan (09/06/2021 9:45 AM PRIMARY OPERATOR): -Will continue statin as it is [...] 01/22/2023 Assessment & Plan (09/06/2021 9:45 AM PRIMARY OPERATOR): -Currently taking MDI -A1C on 09/06/21 [...] 06/12/201701/05 Assessment & Plan (09/06/2021 9:07 AM PRIMARY OPERATOR): -States she has been off of LT4 for 2 years -Will repeat TFT. Encounters Date Type Department Care Team Description 07/02/2025 11:15 AM CDT Procedure visit [facility] Medicine Ophthalmology 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 2[address] Floor, [address] [place] [address] Steven Edmonds MD Pre Cert (2024) 04/26/2025 Orders Only [facility] Endocrinology Metabolism and Lipid [address] [facility] [facility] Advanced Medicine 13th [place] [address] [place] [address] Tavia Fung RMA Type 1 diabetes mellitus with hyperglycemia (HCC) (Primary Dx) 04/26/2025 Telephone [facility] Endocrinology Metabolism and Lipid [address] [facility] Medicine 13th [place] [address] [place] [address] Tavia Fung RMA Medication Change from Last 3 Months Immunizations Immunization Administration [...] on file Legal Sex Female 12:16 AM PRIMARY OPERATOR Gender Identity Not on file Sexual [...] 2025 01/04/2021, 12/14/2020 Influenza Vaccine (#1) 2025 3, 08/03/2022, 09/08/2021, Additional history exists Hemoglobin A1C 07/31/2025 01/29/2025, 10/07, 01/22/2024, Additional history exists TSH Level 01/29/2026 01/29/2025, 04/1 06/2024, 01/03/2021, Additional history exists Dilated Eye Exam [...] HEMOGLOBIN A1C Routine 10/23/2024 8 :29 AM PRIMARY OPERATOR Type 1 diabetes mellitus with hyperglycemia [...] mg/0.07 mL Route: intravitreal, Site: Left Eye [facility]: [id number], Lot: [id number], Expiration date: 03/06/2026, Waste: 0 mL Medication [...] Sample used today b/c of insurance cost [id number] paperwork signed today, 07/02/25 Steven Edmonds MD [...] no CME; no VH; no central DME Steven Edmonds MD OPHTH TOMOGRAPHY Final Res ult * POCT hemoglobin A1c (10/23/2024 8:29 AM PRIMARY OPERATOR) Hemoglobin A1C, POC 9.1 4.0 - 5.6 % Blood 10/23/2024 8:29 AM PRIMARY OPERATOR Evelin M. Steiniger SUPPORT SERVICES TECH POINT OF CARE TEST ORDERA BLES Final [...] BLOOD ORDERABLES Final Result Performing Organization Address City/[facility]/ZIP Co de Phone Number [facility] Department [place] [address] * Albumin Creatinine Ratio, Urine (01/24/2024) Urine us Sarah Haskins MD LAB URINE ORDERABLES Final Resu lt EXTERNAL LAB * TSH (01/24/2024) Blood us Sarah Haskins MD LAB BLOOD ORDERABLES Final Resu lt Performing Organization Address City/[facility]/ZIP Co de Phone Number EXTERNAL LAB * Lipid panel (01/24/2024) Blood us Sarha Haskins MD LAB BLOOD ORDERABLES Final Resu lt Performing Organization Address [facility]/ZIP Co de Phone Number EXTERNAL [...] nipple by physician COMPARISON: Outside exams from [place] 09/13/2022to 07/08/2019 TECHNIQUE: Full field digital mammographic [...] 5:08 PM CDT Performed at: 01 - [facility] [id number] Core Drill Operator: Link Myles PhD, Phone: [phone] us Lorrie Saavedra MD LAB MICROBIOLOGY - GENERAL ORD ERABLES Final Result [facility] - 01 from Last 3 Months or Most Recently Relevant to Health Maintenance Insurance IDPA [facility] CHOICE [facility] HMO/PPO Address: [address] [address] [place] [address] WORKERS COMPENSATION GENERIC WORKERS COMPENSATION GENERIC Care Teams Earth Science Faculty Member Relationship Specialty Start Date End Date Jamaal Ibarra DO PCP - General 10/22/17
--- OUTSIDE RECORDS SUMMARY | 2025-07-21 18:44 | XMS_ITS | Encounter Summary ---
Author Organization [facility] Address [address] [place] [address] Phone Care Team Providers Care Assorter Laundry Name Role Phone Jamaal Ibarra DO Primary Care Provider Encounter Details Date Type Department Care Team (Late st Contact Info) Description 08/03/2021 Orders Only [facility] Medicine Rheumatology [address] [facility] Advanced Medicine 5th [place] [address] [place] [address] Jana Medley CMA Social History Tobacco Use Types Packs/Day Years Used Date Smoking Tobacco: Never Comments Unknown Sex and Gender Information Value Date Recorded Sex Assigned at Not on file Legal Sex Female 12:16 AM TEACHING AIDE Gender Identity Not on file Sexual Orientation Not on file documented as of this encounter Plan of Treatment Not on file documented as of this encounter Visit Diagnoses Not on filedocumented in this encounter Care Teams Assorter Laundry Relationship Specialty Start Date End Date Jamaal Ibarra DO PCP - General 10/22/17 documented as of this encounter
--- OUTSIDE RECORDS SUMMARY | 2025-07-21 18:44 | XMS_ITS | Encounter Summary ---
Author Organization [facility] Address [address] [place] [address] Phone Care Team Providers Care Cerner Analyst Name Role Phone Jamaal Ibarra DO Primary Care Provider Encounter Details Date Type Department Care Team (Latest Contact Info) Description 10/14/2019 Orders Only [facility] Scanning, Provider Social History Tobacco Use Types Packs/Day Years Used Date Smoking Tobacco: Never Comments Unknown Sex and Gender Information Value Date Recorded Sex Assigned at Not on file Legal Sex Female 12:16 AM HEALTHCARE MARKETER Gender Identity Not on file Sexual Orientation [...] on filedocumented in this encounter Care Teams Cerner Analyst Relationship Specialty Start Date End Date Jamaal Ibarra DO PCP - General 10/22/17 documented as of this encounter
--- OUTSIDE RECORDS SUMMARY | 2025-07-21 18:44 | XMS_ITS | Clinical Summary ---
Author Organization [facility] Address [address] [place] [address] Care Team Providers Care Automobile Upholsterer Apprentice Name Role Phone Jamaal Ibarra DO Primary [...] on file Legal Sex Female 3:50 AM REGIONAL GUIDE Gender Identity Not on file Sexual [...] 8.4(H) <5.7 % 01/29/2025 3:35 PM CDT [facility] EST. AVG GLUCOSE, A1C 194 mg/dL 01/29/2025 3:35 PM CDT [facility] ADARTIS [facility] Blood Venipuncture / Unknown 01/29/2025 2:08 PM CDT 01/29/2025 3:15 PM CDT Narrative [facility] - 01/29/2025 3:35 PM CDT HGB A1C INTERPRETATION NORMAL: <5.7% PRE-DIABETES: 5.7 - 6.4% DIABETES: 6.5% OR GREATER Michael Hoskins MD CHEMISTRY ORDERABLES Final R esult [facility]# [id number] [address] [place] [address] from Last 3 Months or Most Recently Relevant to Health Maintenance Insurance [facility] BLUE PREFERRED [employer] Commercial Advance Directives For more information, please contact: [phone] * Full Code (Latest Code Status on File) Date Activated Date Inactivated Comments 01/29/2025 1:42 PM 02/02/2025 12:23 PM Care Teams Automobile Upholsterer Apprentice Relationship Specialty Start Date End Date Jamaal Ibarra DO [address] [address] PCP - General Internal Medicine 07/11/18
--- OUTSIDE RECORDS SUMMARY | 2025-07-21 18:44 | XMS_ITS | Clinical Summary ---
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 Results should be integrated into clinical context for interpretation. URINE SPECIMEN / Unknown 05/25/2025 1:35 AM CDT us Fazal Brower MD,PHD URINE ORDERABLES Final Res ult Performing Organization Address [facility]/ZIP Co de Phone Number [facility] [address] [place] [address], * CREATININE URINE RANDOM (05/25/2025 1:35 AM CDT) CREATININE (U) 84.4 28 - 217 MG/DL 05/25/2025 4:18 AM CDT [facility] URINE SPECIMEN / Unknown 05/25/2025 1:35 AM CDT us Fazal Brower MD,PHD URINE ORDERABLES Final Res ult [facility] [address] [place] [address], [place] [phone] * ECG 12 lead (05/24/2025 9:39 PM CDT) Only the most recent of2 resultswithin the time period is included. 05/24/2025 9:[address] [facility] - 05/26/2025 9:[address] 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 [address] [place] [address] Test Date: 2025-05-24 Pat Name: SILVA LONDONO Department: 41 Room: EXAM12 Gender: Female Social Science Professor: [id number] : 1975 Requested By: INDERJIT STEWART Order Number: [id number] Reading AKHIL Manzanares Measurements Intervals [place] Rate: 64 P: 147 NM: 200 QRS: -34 QRSD: 142 T: 149 [...] Brower MD,PHD ECG ORDERABLES Final Resu lt [facility] * (ABNORMAL) URINALYSIS (05/24/2025 8:25 PM CDT) SPECIMEN TYPE URINE CLEAN CATCH 05/24/2025 8:25 PM CDT [facility] COLOR (U) LIGHT YELLOW 05/24/2025 8:50 PM CDT [facility] TRANSPARENCY CLEAR 05/24/2025 8:50 PM CDT [facility] SPECIFIC GRAVITY (U) 1.015 1.001 - 1.030 05/24/2025 8:50 PM CDT [facility] U PH 6.0 5.0 - 9.0 05/24/2025 8:50 PM CDT [facility] LEUKOCYTES (U) NEGATIVE NEGATIVE 05/24/2025 8:50 PM CDT [facility] NITRITES NEGATIVE NEGATIVE 05/24/2025 8:50 PM CDT [facility] PROTEIN RANDOM (U) 100(H) <30 MG/DL 05/24/2025 8:50 PM CDT [facility] GLUCOSE (U) 150(A) NORMAL MG/DL 05/24/2025 8:50 PM CDT [facility] KETONES MG/DL (U) NEGATIVE NEGATIVE MG/DL 05/24/2025 8:50 PM CDT [facility] UROBILINOGEN NORMAL NORMAL MG/DL 05/24/2025 8:50 PM CDT [facility] BILIRUBIN (U) NEGATIVE NEGATIVE MG/DL 05/24/2025 8:50 PM CDT [facility] BLOOD (U) NEGATIVE NEGATIVE 05/24/2025 8:50 PM CDT [facility] MUCUS RARE /LPF 05/24/2025 8:50 PM CDT [facility] HYALINE CASTS RARE /LPF 05/24/2025 8:50 PM CDT [facility] WBC/HPF 2 <6 /HPF 05/24/2025 8:50 PM CDT [facility] RBC/HPF 3 <6 /HPF 05/24/2025 8:50 PM CDT [facility] BACTERIA (U) RARE(A) NONE /HPF 05/24/2025 8:50 PM CDT [facility] SQUAMOUS EPITHELIALS RARE /HPF 05/24/2025 8:50 PM CDT [facility] URINE SPECIMEN OBTAINED BY CLEAN CATCH PROCEDURE / Unknown 05/24/2025 8:25 PM CDT Carmen CHRISTINA URINE ORDERABLES Final Result [facility] [address] [place] [address], [place] [phone] * XR CHEST PORTABLE (05/24/2025 8:03 PM CDT) Anatomical Region Laterality Modality Chest Fluoroscopy 05/24/2025 8:09 PM CDT Impressions 05/24/2025 8:09 PM CDT IMPRESSION: No acute cardiopulmonary process. Referred By: Interpreted By: Rd Cisneros MD, 05/24/2025 8:09 PM Narrative 05/24/2025 8:09 PM CDT [facility] [address] [place], [place] [address] EXAM: XR CHEST PORTABLE INDICATION: Chest pain, dyspnea COMPARISON: Chest radiograph, 06 Jul 2018 TECHNIQUE: Single frontal radiographic image of the chest FINDINGS: No pneumothorax, pleural effusion, or focal airspace consolidation. Pulmonary vasculature and cardiomediastinal silhouette within normal limits. No acute osseous abnormality. Procedure Note Rd Cisneros MD - 05/24/[address] [address] EXAM: XR CHEST PORTABLE INDICATION: Chest pain, dyspnea COMPARISON: Chest radiograph, 06 Jul 2018 TECHNIQUE: Single frontal radiographic image of the chest FINDINGS: No pneumothorax, pleural effusion, or focal airspace consolidation.Pulmonary vasculature and cardiomediastinal silhouette within normallimits. No acute osseous abnormality. IMPRESSION: No acute cardiopulmonary process. Referred By: Interpreted By: Rd Cisneros MD, 05/24/2025 8:09 PM Carmen Chavez [facility] GENERAL IMAGING Final Result * (ABNORMAL) COMPREHENSIVE METABOLIC PANEL (05/24/2025 7:03 PM CDT) GLUCOSE 241(H) 70 - 99 MG/DL 05/24/2025 9:10 PM CDT [facility] BUN 53(H) 7 - 18 MG/DL 05/24/2025 9:10 PM CDT [facility] CREATININE S/P/B 3.13(H) 0.55 - 1.02 MG/DL 05/24/2025 9:10 PM CDT [facility] SODIUM S/P/B 136 136 - 145 MMOL/L 05/24/2025 9:10 PM CDT [facility] POTASSIUM S/P/B 3.9 3.5 - 5.1 MMOL/L 05/24/2025 9:10 PM CDT [facility] CHLORIDE S/P/B 105 97 - 115 MMOL/L 05/24/2025 9:10 PM CDT [facility] CO2 24.1 21 - 32 MMOL/L 05/24/2025 9:10 PM CDT [facility] CALCIUM S/P/B 10.3(H) 8.5 - 10.1 MG/DL 05/24/2025 9:10 PM CDT [facility] BILIRUBIN TOTAL S/P/B 0.4 0.2 - 1.2 MG/DL 05/24/2025 9:10 PM CDT [facility] Comment: THIS ASSAY IS NOT RECOMMENDED FOR PATIENTS UNDERGOING TREATMENT WITH ELTROMBOPAG DUE TO THE POTENTIAL FOR FALSELY ELEVATED RESULTS. TOTAL PROTEIN S/P/B 7.5 6.4 - 8.2 G/DL 05/24/2025 9:10 PM CDT [facility] ALBUMIN S/P/B 3.4 3.4 - 5.0 G/DL 05/24/2025 9:10 PM CDT [facility] AST 13(L) 15 - 37 U/L 05/24/2025 9:10 PM CDT [facility] ALT 20 14 - 55 U/L 05/24/2025 9:10 PM T [facility] ALKALINE PHOSPHATASE S/P/B 130 50 - 136 U/L 05/24/2025 9:10 PM CDT [facility] ANION GAP 6.9 2 - 10 MMOL/L 05/24/2025 9:10 PM CDT [facility] BUN CREATININE RATIO 16.9 6 - 26 05/24/2025 9:10 PM CDT [facility] A/G RATIO 0.8(L) 1.0 - 2.0 RATIO 05/24/2025 9:10 PM T [facility] GFR ESTIMATE 17(L) >90 ML/MIN/1.7 3 M2 05/24/2025 9:10 PM CDT [facility] Comment: NOTE: eGFR is not calculated for patients <18 years of age or gender unknown. This is an estimated GFR calculation using the new CKD EPI creatinine equation without race and so does not require a correction factor for race. This estimated GFR should not be used for calculating drug doses. 05/24/2025 7:03 PM CDT [facility] Final Result [facility] [address] [place] [address], [place] [phone] * (ABNORMAL) CBC W/DIFF AUTOMATED (05/24/2025 7:03 PM CDT) WBC 11.11(H) 4.5 - 11.0 x10'3/uL 05/24/2025 8:37 PM CDT [facility] RBC 4.45 4.20 - 5.40 x10'6/uL 05/24/2025 8:37 PM CDT [facility] HGB 12.8 12.0 - 16.0 G/DL 05/24/2025 8:37 PM CDT [facility] HCT 39.0 38.0 - 48.0 % 05/24/2025 8:37 PM CDT [facility] MCV 87.6 81.0 - 99.0 FL 05/24/2025 8:37 PM CDT [facility] MCH 28.8 27.0 - 31.0 PG 05/24/2025 8:37 PM CDT [facility] MCHC 32.8 32.0 - 36.0 G/DL 05/24/2025 8:37 PM CDT [facility] RDW 14.1 11.5 - 14.5 % 05/24/2025 8:37 PM CDT [facility] PLT 226 130 - 400 x10'3/uL 05/24/2025 8:37 PM CDT [facility] MPV 10.5 9.3 - 12.2 FL 05/24/2025 8:37 PM CDT [facility] DIFFERENTIAL TYPE AUTOMATED DIFFERENTIAL 05/24/2025 8:37 PM CDT [facility] NEUTROPHILS % 70.4 % 05/24/2025 8:37 PM CDT [facility] LYMPHOCYTES % 22.3 % 05/24/2025 8:37 PM CDT [facility] MONOCYTES % 4.6 % 05/24/2025 8:37 PM CDT [facility] EOSINOPHILS 1.7 % 05/24/2025 8:37 PM CDT [facility] BASOPHILS 0.4 % 05/24/2025 8:37 PM CDT [facility] IMMATURE GRANS % 0.6 % 05/24/20 8:37 PM CDT [facility] ABS. NEUTROPHILS 7.82(H) 1.80 - 7.70 x10'3/uL 05/24/2025 8:37 PM CDT [facility] ABS. LYMPHOCYTES 2.48 1.00 - 4.80 x10'3/uL 05/24/2025 8:37 PM CDT [facility] ABS. MONOCYTES 0.51 0.24 - 0.86 x10'3/uL 05/24/2025 8:37 PM CDT [facility] ABS. EOSINOPHILS 0.19 0.04 - 0.36 x10'3/uL 05/24/2025 8:37 PM CDT [facility] ABS. BASOPHILS 0.04 0.01 - 0.08 x10'3/uL 05/24/2025 8:37 PM CDT [facility] ABS. IMMATURE GRANULOCYTES 0.07 0.00 - 0.49 x10'3/uL 05/24/2025 8:37 PM CDT [facility] 05/24/2025 7:03 PM CDT [facility] Final Result Performing Organization Address City/[facility]/ZIP Co de Phone Number [facility] [address] [place] [address], [place] [phone] * TROPONIN, QUANT (05/24/2025 7:03 PM CDT) TROPONIN I HIGH SENSITIVITY 23 <54 ng/L 05/24/2025 9:10 PM CDT [facility] Comment: HIGH DOSES OF BIOTIN, TROPONIN-SPECIFIC AUTOANTIBODIES, AND ANTIBODY THERAPY CONTAINING HAMA MAY INTERFERE WITH THIS TEST RESULT. CORRELATION TO CLINICAL HISTORY AND PRESENTATION RECOMMENDED. 05/24/2025 7:03 PM CDT [facility] Final Result Performing Organization Address [facility] Co de Phone Number [facility] [address] [place] [address], [place] [phone] * MAGNESIUM (05/24/2025 7:03 PM CDT) Pathologist [facility] MAGNESIUM 2.0 1.8 - 2.4 MG/DL 05/24/2025 9:10 PM CDT [facility] 05/24/2025 7:03 PM CDT [facility] Final Result Performing Organization Address City/[facility]/ZIP Co de Phone Number [facility] [address] [facility] [place] [address], from Last 3 Months Insurance [facility] Care Teams Customer Service Security Officer Relationship Specialty Start Date End Date Jamaal Ibarra DO [address] [place], [place] [id number] PCP - General INTERNAL MEDICINE 07/02/23
--- OUTSIDE RECORDS SUMMARY | 2025-07-21 18:44 | XMS_ITS | Encounter Summary ---
Author Organization [facility] Address [address] [place] [address] Phone Care Team Providers Care Vp Transportation Name Role Phone Jamaal Ibarra DO Primary Care Provider Encounter Details Date Type Department Care Team (Late st Contact Info) Description 10/18/2021 Telephone [facility] Medicine Rheumatology [address] [place] [address] 5th [place] [address] [place] [phone] Era Taylor CMA Social History Tobacco Use Types Packs/Day Years Used Date Smoking Tobacco: Never Smokeless Tobacco: Never Comments Unknown Sex and Gender Information Value Date Recorded Sex Assigned at Not on file 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
--- OUTSIDE RECORDS SUMMARY | 2025-07-21 18:44 | XMS_ITS | Encounter Summary ---
Author Organization [facility] Address [address] [place] [address] Care Team Providers Care Environmental Research Scientist Name Role Phone Jamaal Ibarra DO Primary Care Provider Encounter Details Date Type Department Care Team (Latest Contact Info) Description 03/23/2002 Outpatient Historical HIS 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
--- NOTE | 2025-07-21 19:49 | PC.NURSE ---
Patient to desk asking about her spot in line. ED process explained to patient. Patient encouraged to utilize materials provided in red folder.
[2025-07-21 21:58] VITALS: BP 140/66; PULSE 63; RESP 14; O2SAT 97
--- OUTSIDE RECORDS SUMMARY | 2025-07-21 22:17 | XMS_ITS | Encounter Summary ---
Author Organization [facility] Address [address] [place] [address] Phone Care Team Providers Care Card Seller Name Role Phone Jamaal Ibarra DO Primary Care Provider Encounter Details Date Type Department Care Team (Late st Contact Info) Description 08/03/2021 Orders Only [facility] Medicine Rheumatology [address] Advanced Medicine 5th [place] [address] [place] [address] Jana Medley CMA Social History Tobacco Use Types Packs/Day Years Used Date Smoking Tobacco: Never Comments Unknown Sex and Gender Information Value Date Recorded Sex Assigned at Not on file 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
--- OUTSIDE RECORDS SUMMARY | 2025-07-21 22:17 | XMS_ITS | Encounter Summary ---
Author Organization [facility] Address [address] [place] [address] Care Team Providers Care Childhood Development Teacher Name Role Phone Jamaal Ibarra DO Primary Care Provider Encounter Details Date Type Department Care Team (Latest Contact Info) Description 03/23/2002 Outpatient Historical [facility] [place] [address] [place] [address] MENSTRUAL DISORDER NEC (Primary Dx) Social History Tobacco Use Types Packs/Day Years Used Date Smoking Tobacco: Never Assessed Comments Unknown Sex and Gender Information Value Date Recorded Sex Assigned at Not on file Legal Sex Female 3:50 AM 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
--- OUTSIDE RECORDS SUMMARY | 2025-07-21 22:17 | XMS_ITS | Clinical Summary ---
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 AVG GLUCOSE, A1C 194 mg/dL 01/29/2025 3:35 PM CDT [facility] Blood Venipuncture / Unknown 01/29/2025 2:08 PM CDT 01/29/2025 3:15 PM CDT Narrative [facility] - 01/29/2025 3:35 PM CDT HGB A1C INTERPRETATION NORMAL: <5.7% PRE-DIABETES: 5.7 - 6.4% DIABETES: 6.5% OR GREATER Michael Hoskins MD CHEMISTRY ORDERABLES Final R esult [facility]# [id number] [address] [place] [address] from Last 3 Months or Most Recently Relevant to Health Maintenance Insurance [facility] BLUE PREFERRED RX [employer] Commercial Advance Directives For more information, please contact: [phone] * Full Code (Latest Code Status on File) Date Activated Date Inactivated Comments 01/29/2025 1:42 PM 02/02/2025 12:23 PM Care Teams Consolidation Accountant Relationship Specialty Start Date End Date Jamaal Ibarra DO [address] [address] PCP - General Internal Medicine 07/11/18
--- OUTSIDE RECORDS SUMMARY | 2025-07-21 22:17 | XMS_ITS | Encounter Summary ---
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
--- OUTSIDE RECORDS SUMMARY | 2025-07-21 22:17 | XMS_ITS | Clinical Summary ---
Author Organization [facility] Address [address] [place] [address] Phone Care Team Providers Care Director [employer] System Name Role Phone JeanniesvetaJamaal jernigan Primary Care Provider [phone] Allergies Active Allergy Reactions Criticality Noted Date [...] 2 Active ergocalciferol (VITAMIN D2) 1.25 MG (53118 UT) capsule TAKE 1 CAPSULE BY MOUTH [...] Comments Blood Pressure 128/72 09/05/2022 8:31 AM FRONT OF HOUSE MANAGER Pulse - - Temperature 36.5 C (97.7 F) 09/05/2022 8:31 AM FRONT OF HOUSE MANAGER Respiratory Rate 18 09/05/2022 8:31 AM FRONT OF HOUSE MANAGER Oxygen Saturation - - Inhaled Oxygen Concentration - - Weight 121 kg (267 lb) 09/05/2022 8:31 AM FRONT OF HOUSE MANAGER Height 172.7 cm (5' 8) 09/05/2022 8:31 AM FRONT OF HOUSE MANAGER Body Mass Index 40.6 09/05/2022 8:31 AM FRONT OF HOUSE MANAGER Plan of Treatment Health Maintenance Due Date Last Done Comments Influenza Vaccine (#1) 2025 0, 07/30/2019, 07/16/2018, Additional history exists Insurance [employer] Care Teams Director Merit System Relationship Specialty Start Date End Date Jamaal Ibarra DO [address] [place] [address] PCP - General Internal Medicine 05/07/22
--- OUTSIDE RECORDS SUMMARY | 2025-07-21 22:17 | XMS_ITS | Clinical Summary ---
Author Organization [facility] Address [address] [facility] [place] [address] Care Team Providers Care Respiratory Tech Name Role Phone Lebron Pugh V. DO Unavailable [phone] aJmaal Ibarra DO Primary Care Provider Source Comments [facility],non-owned Affiliates and Associated Physician Practices is amultiple site organization consisting of ambulatory clinics and hospital sitesin [place], [place], [place] and [place]. This disclosure is being madepursuant to the [...] tablet 2 Active vitamin D, ergocalciferol, (DRISDOL) 32814 UNITS capsule 1 Active gabapentin (NEURONTIN) 300 MG capsule 2 Active simvastatin (ZOCOR) 20 MG tablet 1 Active traMADol (ULTRAM) 50 MG tablet 1 014 Active traZODone (DESYREL) 50 MG tablet 6 Active zolpidem (AMBIEN) 10 MG tablet 5 Active megestrol (MEGACE) 40 MG tablet Take 1 Tab by mouth once daily. 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 Not on file Not on file Last Filed Vital Signs Vital Sign Reading Time Taken Comments Blood Pressure 126/74 10/21/2014 11:57 AM MUSHROOM PACKER Pulse 102 09/16/2013 1:06 PM MUSHROOM PACKER Temperature 36.8 C (98.2 F) 09/16/2013 1:06 PM MUSHROOM PACKER Respiratory Rate 20 09/16/2013 1:06 PM MUSHROOM PACKER Oxygen Saturation 98% 09/16/2013 1:06 PM MUSHROOM PACKER Inhaled Oxygen Concentration - - Weight 89.8 kg (198 lb) 10/21/2014 11:57 AM MUSHROOM PACKER Height 172.7 cm (5' 8) 10/21/2014 11:57 AM MUSHROOM PACKER Body Mass Index 30.11 10/21/2014 11:57 AM MUSHROOM PACKER Plan of Treatment Health Maintenance Due Date [...] MAMMO BILAT SCREENING Routine 09/22/2013 8:09 AM MUSHROOM PACKER Screening COMPREHENSIVE METABOLIC PANEL Routine 08/22/2013 8:00 AM MUSHROOM PACKER DM w/o Complication Type II, Uncontrolled HTN (hypertension), benign Abdominal pain, RUQ (right upper quadrant) Ketonuria HEMOGLOBIN A1C Routine 08/22/2013 8:00 AM MUSHROOM PACKER DM w/o Complication Type II, Uncontrolled MICROALB/CREAT RATIO URINE RANDOM PANEL Routine 08/21/2013 9:29 AM MUSHROOM PACKER DM w/o Complication Type II, Uncontrolled from Last 3 Months or Most Recently Relevant to Health Maintenance Results * MAMM SCREENING DIGITAL IMAGE BILAT G0202 (09/22/2013 8:09 AM MUSHROOM PACKER) Anatomical Region Laterality Modality Breast Bilateral Mammography 09/22/2013 11:5 3 AM MUSHROOM PACKER Impressions 09/22/2013 11:56 AM MUSHROOM PACKER No malignant abnormality identified. No significant change. BI-RADS category 1. Negative. RECOMMENDATIONS: Routine mammograms in one year. Narrative 09/22/2013 11:56 AM MUSHROOM PACKER Screening mammogram: HISTORY: Screening mammogram. Two views [...] * (ABNORMAL) HEMOGLOBIN A1C (08/22/2013 8:00 AM MUSHROOM PACKER) Hemoglobin A1c 12.6(H) <5.7 % of total [...] of diabetes for children. Test Performed at: [facility] [address] [place] [address] PAPO BENNETT DO,MPH Whole blood specimen (specimen) BLOOD SPECIMEN / Unknown 08/22/2013 4:53 AM MUSHROOM PACKER Salma Viet Hunt ONLINE [facility]ACILIT[facility] - CHEMISTRY ORDERA BLES Final Result [facility] [address] [place] [address] * (ABNORMAL) COMPREHENSIVE METABOLIC PANEL (08/22/2013 8:00 AM MUSHROOM PACKER) Glucose 312(H) 65 - 99 mg/dL [facility] [...] 29 U/L [facility] Comment: Test Performed at: [facility] [address] PAPO BENNETT DO,MPH Blood specimen (specimen) BLOOD SPECIMEN / Unknown 08/22/2013 4:53 AM MUSHROOM PACKER Salma Hunt ONLINE FACILITATOR-[facility] - CHEMISTRY ORDERA BLES Final Result [facility] [address] [place] [address] * (ABNORMAL) MICROALB/CREAT RATIO URINE RANDOM PANEL (08/21/2013 9:29 AM MUSHROOM PACKER) Creatinine Urine 129 20 - 320 mg/dL [...] within a diagnostic category. Test Performed at: [facility] [place] [address] PAPO BENNETT DO,MPH Urine specimen (specimen) URINE SPECIMEN OBTAINED BY CLEAN CATCH PROCEDURE / Unknown 08/21/2013 9:29 AM MUSHROOM PACKER 08/22/2013 4:16 AM MUSHROOM PACKER us Salma Hunt ONLINE FACILITATOR-[facility] - URINE CHEMISTRY ORDERABLES Final Result [facility] [address] [place] [address] from Last 3 Months or Most Recently Relevant to Health Maintenance Insurance ANTHEM ANTHEM Advance Directives * FULL RESUSCITATION (Latest Code Status on File) Date Activated Date Inactivated Comments 05/06/2011 1:35 AM 05/08/2011 5:46 AM Care Teams Respiratory Tech Relationship Specialty Start Date End Date Jamaal Ibarra DO [address] [place] [id number] PCP - General 06/01/21 Lebron Pugh DO [address] [place] [address] Oncology 06/23/07
--- OUTSIDE RECORDS SUMMARY | 2025-07-21 22:17 | XMS_ITS | Encounter Summary ---
Author Organization [facility] Address [address] [place] [address] Phone Care Team Providers Care Material Distributor Name Role Phone Jamaal Ibarra DO Primary Care Provider Encounter Details Date Type Department Care Team (Late st Contact Info) Description 10/18/2021 Telephone [facility] Medicine Rheumatology [address] [place] [address] 5th [place] [address] [place] [phone] Era Taylor CMA Social History Tobacco Use Types Packs/Day Years Used Date Smoking Tobacco: Never Smokeless Tobacco: Never Comments Unknown Sex and Gender Information Value Date Recorded Sex Assigned at Not on file 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
--- OUTSIDE RECORDS SUMMARY | 2025-07-21 22:17 | XMS_ITS | Clinical Summary ---
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 Results should be integrated into clinical context for interpretation. URINE SPECIMEN / Unknown 05/25/2025 1:35 AM CDT us Fazal Brower MD,PHD URINE ORDERABLES Final Res ult Performing Organization Address [facility]/ZIP Co de Phone Number [facility] [address] [place] [address], * CREATININE URINE RANDOM (05/25/2025 1:35 AM CDT) CREATININE (U) 84.4 28 - 217 MG/DL 05/25/2025 4:18 AM CDT [facility] URINE SPECIMEN / Unknown 05/25/2025 1:35 AM CDT us Fazal Brower MD,PHD URINE ORDERABLES Final Res ult [facility] [address] [place] [address], [place] [phone] * ECG 12 lead (05/24/2025 9:39 PM CDT) Only the most recent of2 resultswithin the time period is included. 05/24/2025 9:39 PM CDT Narrative [facility] - 05/26/2025 9:[address] 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: [id number] : 1975 Requested By: INDERJIT STEWART Order Number: [id number] Reading AKHIL Manzanares Measurements Intervals Keymar Rate: 64 P: 147 WY: 200 QRS: -34 QRSD: 142 T: 149 [...] Brower MD,PHD ECG ORDERABLES Final Resu lt [facility] ([facility] * (ABNORMAL) URINALYSIS (05/24/2025 8:25 PM CDT) SPECIMEN TYPE URINE CLEAN CATCH 05/24/2025 8:25 PM CDT [facility] COLOR (U) LIGHT YELLOW 05/24/2025 8:50 PM CDT [facility] TRANSPARENCY CLEAR 05/24/2025 8:50 PM CDT [facility] SPECIFIC GRAVITY (U) 1.015 1.001 - 1.030 05/24/2025 8:50 PM CDT [facility] U PH 6.0 5.0 - 9.0 05/24/2025 8:50 PM CDT [facility] LEUKOCYTES (U) NEGATIVE NEGATIVE 05/24/2025 8:50 PM CDT [facility] NITRITES NEGATIVE NEGATIVE 05/24/2025 8:50 PM CDT [facility] PROTEIN RANDOM (U) 100(H) <30 MG/DL 05/24/2025 8:50 PM CDT [facility] GLUCOSE (U) 150(A) NORMAL MG/DL 05/24/2025 8:50 PM CDT [facility] KETONES MG/DL (U) NEGATIVE NEGATIVE MG/DL 05/24/2025 8:50 PM CDT [facility] UROBILINOGEN NORMAL NORMAL MG/DL 05/24/2025 8:50 PM CDT [facility] BILIRUBIN (U) NEGATIVE NEGATIVE MG/DL 05/24/2025 8:50 PM CDT [facility] BLOOD (U) NEGATIVE NEGATIVE 05/24/2025 8:50 PM CDT [facility] MUCUS RARE /LPF 05/24/2025 8:50 PM CDT [facility] HYALINE CASTS RARE /LPF 05/24/2025 8:50 PM CDT [facility] WBC/HPF 2 <6 /HPF 05/24/2025 8:50 PM CDT [facility] RBC/HPF 3 <6 /HPF 05/24/2025 8:50 PM CDT [facility] BACTERIA (U) RARE(A) NONE /HPF 05/24/2025 8:50 PM CDT [facility] SQUAMOUS EPITHELIALS RARE /HPF 05/24/2025 8:50 PM CDT [facility] URINE SPECIMEN OBTAINED BY CLEAN CATCH PROCEDURE / Unknown 05/24/2025 8:25 PM CDT Carmen CHRISTINA URINE ORDERABLES Final Result [facility] [address] [place] [address], [place] [phone] * XR CHEST PORTABLE (05/24/2025 8:03 PM CDT) Anatomical Region Laterality Modality Chest Fluoroscopy 05/24/2025 8:09 PM CDT Impressions 05/24/2025 8:09 PM CDT IMPRESSION: No acute cardiopulmonary process. Referred By: Interpreted By: Rd Cisneros MD, 05/24/2025 8:09 PM Narrative 05/24/2025 8:09 PM CDT [facility] [address] [place], [place] [address] EXAM: XR CHEST PORTABLE INDICATION: Chest pain, dyspnea COMPARISON: Chest radiograph, 06 Jul 2018 TECHNIQUE: Single frontal radiographic image of the chest FINDINGS: No pneumothorax, pleural effusion, or focal airspace consolidation. Pulmonary vasculature and cardiomediastinal silhouette within normal limits. No acute osseous abnormality. Procedure Note Rd Cisneros MD - 05/24/[address] [address] EXAM: XR CHEST PORTABLE INDICATION: Chest pain, dyspnea COMPARISON: Chest radiograph, 06 Jul 2018 TECHNIQUE: Single frontal radiographic image of the chest FINDINGS: No pneumothorax, pleural effusion, or focal airspace consolidation.Pulmonary vasculature and cardiomediastinal silhouette within normallimits. No acute osseous abnormality. IMPRESSION: No acute cardiopulmonary process. Referred By: Interpreted By: Rd Cisneros MD, 05/24/2025 8:09 PM Carmen Chavez [place] [facility] Final Result * (ABNORMAL) COMPREHENSIVE METABOLIC PANEL (05/24/2025 7:03 PM CDT) GLUCOSE 241(H) 70 - 99 MG/DL 05/24/2025 9:10 PM CDT [facility] BUN 53(H) 7 - 18 MG/DL 05/24/2025 9:10 PM CDT [facility] CREATININE S/P/B 3.13(H) 0.55 - 1.02 MG/DL 05/24/2025 9:10 PM CDT [facility] SODIUM S/P/B 136 136 - 145 MMOL/L 05/24/2025 9:10 PM CDT [facility] POTASSIUM S/P/B 3.9 3.5 - 5.1 MMOL/L 05/24/2025 9:10 PM CDT [facility] CHLORIDE S/P/B 105 97 - 115 MMOL/L 05/24/2025 9:10 PM CDT [facility] CO2 24.1 21 - 32 MMOL/L 05/24/2025 9:10 PM CDT [facility] CALCIUM S/P/B 10.3(H) 8.5 - 10.1 MG/DL 05/24/2025 9:10 PM CDT [facility] BILIRUBIN TOTAL S/P/B 0.4 0.2 - 1.2 MG/DL 05/24/2025 9:10 PM CDT [facility] Comment: THIS ASSAY IS NOT RECOMMENDED FOR PATIENTS UNDERGOING TREATMENT WITH ELTROMBOPAG DUE TO THE POTENTIAL FOR FALSELY ELEVATED RESULTS. TOTAL PROTEIN S/P/B 7.5 6.4 - 8.2 G/DL 05/24/2025 9:10 PM CDT [facility] ALBUMIN S/P/B 3.4 3.4 - 5.0 G/DL 05/24/2025 9:10 PM CDT [facility] AST 13(L) 15 - 37 U/L 05/24/2025 9:10 PM CDT [facility] ALT 20 14 - 55 U/L 05/24/2025 9:10 PM T [facility] ALKALINE PHOSPHATASE S/P/B 130 50 - 136 U/L 05/24/2025 9:10 PM CDT [facility] ANION GAP 6.9 2 - 10 MMOL/L 05/24/2025 9:10 PM CDT [facility] BUN CREATININE RATIO 16.9 6 - 26 05/24/2025 9:10 PM CDT [facility] A/G RATIO 0.8(L) 1.0 - 2.0 RATIO 05/24/2025 9:10 PM T [facility] GFR ESTIMATE 17(L) >90 ML/MIN/1.7 3 M2 05/24/2025 9:10 PM CDT [facility] Comment: NOTE: eGFR is not calculated for patients <18 years of age or gender unknown. This is an estimated GFR calculation using the new CKD EPI creatinine equation without race and so does not require a correction factor for race. This estimated GFR should not be used for calculating drug doses. 05/24/2025 7:03 PM CDT Carmen CHRISTINA [facility] Final Result [facility] [address] [place] [address], [place] [phone] * (ABNORMAL) CBC W/DIFF AUTOMATED (05/24/2025 7:03 PM CDT) WBC 11.11(H) 4.5 - 11.0 x10'3/uL 05/24/2025 8:37 PM CDT [facility] RBC 4.45 4.20 - 5.40 x10'6/uL 05/24/2025 8:37 PM CDT [facility] HGB 12.8 12.0 - 16.0 G/DL 05/24/2025 8:37 PM CDT [facility] HCT 39.0 38.0 - 48.0 % 05/24/2025 8:37 PM CDT [facility] MCV 87.6 81.0 - 99.0 FL 05/24/2025 8:37 PM CDT [facility] MCH 28.8 27.0 - 31.0 PG 05/24/2025 8:37 PM CDT [facility] MCHC 32.8 32.0 - 36.0 G/DL 05/24/2025 8:37 PM CDT [facility] RDW 14.1 11.5 - 14.5 % 05/24/2025 8:37 PM CDT [facility] PLT 226 130 - 400 x10'3/uL 05/24/2025 8:37 PM CDT [facility] MPV 10.5 9.3 - 12.2 FL 05/24/2025 8:37 PM CDT [facility] DIFFERENTIAL TYPE AUTOMATED DIFFERENTIAL 05/24/2025 8:37 PM CDT [facility] NEUTROPHILS % 70.4 % 05/24/2025 8:37 PM CDT [facility] LYMPHOCYTES % 22.3 % 05/24/2025 8:37 PM CDT [facility] MONOCYTES % 4.6 % 05/24/2025 8:37 PM CDT [facility] EOSINOPHILS 1.7 % 05/24/2025 8:37 PM CDT [facility] BASOPHILS 0.4 % 05/24/2025 8:37 PM CDT [facility] IMMATURE GRANS % 0.6 % 05/24/20 8:37 PM CDT [facility] ABS. NEUTROPHILS 7.82(H) 1.80 - 7.70 x10'3/uL 05/24/2025 8:37 PM CDT [facility] ABS. LYMPHOCYTES 2.48 1.00 - 4.80 x10'3/uL 05/24/2025 8:37 PM CDT [facility] ABS. MONOCYTES 0.51 0.24 - 0.86 x10'3/uL 05/24/2025 8:37 PM CDT [facility] ABS. EOSINOPHILS 0.19 0.04 - 0.36 x10'3/uL 05/24/2025 8:37 PM CDT [facility] ABS. BASOPHILS 0.04 0.01 - 0.08 x10'3/uL 05/24/2025 8:37 PM CDT [facility] ABS. IMMATURE GRANULOCYTES 0.07 0.00 - 0.49 x10'3/uL 05/24/2025 8:37 PM CDT [facility] 05/24/2025 7:03 PM CDT Carmen CHRISTINA [facility] Final Result Performing Organization Address City/[facility]/ZIP Co de Phone Number [facility] [address] [place] [address], [place] [phone] * TROPONIN, QUANT (05/24/2025 7:03 PM CDT) TROPONIN I HIGH SENSITIVITY 23 <54 ng/L 05/24/2025 9:10 PM CDT [facility] Comment: HIGH DOSES OF BIOTIN, TROPONIN-SPECIFIC AUTOANTIBODIES, AND ANTIBODY THERAPY CONTAINING HAMA MAY INTERFERE WITH THIS TEST RESULT. CORRELATION TO CLINICAL HISTORY AND PRESENTATION RECOMMENDED. 05/24/2025 7:03 PM CDT [facility] CHRIST[facility] Final Result Performing Organization Address [facility] Co de Phone Number [facility] [address] [place] [address], [place] [phone] * MAGNESIUM (05/24/2025 7:03 PM CDT) Pathologist [facility] MAGNESIUM 2.0 1.8 - 2.4 MG/DL 05/24/2025 9:10 PM CDT [facility] 05/24/2025 7:03 PM CDT [facility] CH[facility]ST[facility] Final Result Performing Organization Address City/[facility]/ZIP Co de Phone Number [facility] [address] [place] [address], from Last [address] [facility] Care Teams Customer Orders Clerk Relationship Specialty Start Date End Date Jamaal Ibarra DO [address] [place], [place] [id number] PCP - General INTERNAL MEDICINE 07/02/23
--- OUTSIDE RECORDS SUMMARY | 2025-07-21 22:17 | XMS_ITS | Clinical Summary ---
Author Organization [facility] Address [address] [place] [address] Care Team Providers Care Curriculum Writer Name Role Phone Jamaal Ibarra DO [...] 09/06/2021 Assessment & Plan (09/06/2021 9:49 AM AUDIO VIDEO REPAIRER): -Fatigue is most likely multifactorial as she [...] 09/16/2017 Assessment & Plan (09/06/2021 9:45 AM AUDIO VIDEO REPAIRER): -Taking weekly Vitamin D -Will repeat Vitamin D level Type 1 diabetes mellitus with hyperglycemia 03/2017 Nocturia 06/12/2017 Gastroesophageal reflux disease 10/27/2014 Seronegative rheumatoid arthritis 10/27/2014 Swelling of hand 10/27/2014 Fibroid 10/21/2014 Fibromyalgia 06/09/2014 Hypertension 04/27/2014 Assessment & Plan (09/06/2021 9:45 AM AUDIO VIDEO REPAIRER): -BP today is 121/81 -Will continue same antihypertensive medications at this time. Hyperlipidemia 04/27/2014 Assessment & Plan (09/06/2021 9:45 AM AUDIO VIDEO REPAIRER): -Will continue statin as it is being [...] 01/22/2023 Assessment & Plan (09/06/2021 9:45 AM AUDIO VIDEO REPAIRER): -Currently taking MDI -A1C on 09/06/21 was [...] 06/12/201701/05 Assessment & Plan (09/06/2021 9:07 AM AUDIO VIDEO REPAIRER): -States she has been off of LT4 for 2 years -Will repeat TFT. Encounters Date Type Department Care Team Description 07/02/2025 11:15 AM CDT Procedure visit [facility] Medicine Ophthalmology [address] 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 [facility] [address], [address] [place] [id number] Steven Edmonds MD Pre Cert (2024) 04/26/2025 Orders Only [facility] Endocrinology Metabolism and Lipid [address] [facility] 13th [place] [address] [place] [address] Tavia Fung RMA Type 1 diabetes mellitus with hyperglycemia (HCC) (Primary Dx) 04/26/2025 Telephone [facility] Endocrinology Metabolism and Lipid [address] [facility] 13th [place] [address] [place] [address] Tavia Fung RMA Medication Change from Last [...] on file Legal Sex Female 12:16 AM AUDIO VIDEO REPAIRER Gender Identity Not on file Sexual Orientation [...] HEMOGLOBIN A1C Routine 10/23/2024 8 :29 AM AUDIO VIDEO REPAIRER Type 1 diabetes mellitus with hyperglycemia (HCC) [...] mg/0.07 mL Route: intravitreal, Site: Left Eye [facility]: [id number], Lot: [id number], Expiration date: 03/06/2026, Waste: 0 mL Medication [...] Sample used today b/c of insurance cost [id number] paperwork signed today, 07/02/25 Steven Edmonds MD [...] * POCT hemoglobin A1c (10/23/2024 8:29 AM AUDIO VIDEO REPAIRER) Hemoglobin A1C, POC 9.1 4.0 - 5.6 % Blood 10/23/2024 8:29 AM AUDIO VIDEO REPAIRER Evelin M. Steiniger LEATHER SEASONER POINT OF CARE TEST ORDERA BLES Final [...] ORDERABLES Final Result Performing Organization Address City/[facility]/ZIP Co de Phone Number [facility] Department [place] [address] * Albumin Creatinine Ratio, Urine (01/24/2024) Urine us Sarah Haskins MD LAB URINE ORDERABLES Final Resu lt EXTERNAL LAB * TSH (01/24/2024) Blood us Sarah Haskins MD LAB BLOOD ORDERABLES Final Resu lt Performing Organization Address City/[facility]/ZIP Co de Phone Number EXTERNAL LAB * Lipid panel (01/24/2024) Blood us Sarah Haskins MD LAB BLOOD ORDERABLES Final Resu lt Performing Organization Address [facility]/ZIP Co de Phone Number EXTERNAL LAB [...] nipple by physician COMPARISON: Outside exams from [place] 09/13/2022to 07/08/2019 TECHNIQUE: Full field digital mammographic [...] 5:08 PM CDT Performed at: [facility] - [id number] Preschool Assistant Principal: Link Myles PhD, Phone: [phone] us Lorrie Saavedra MD LAB MICROBIOLOGY - GENERAL ORD ERABLES Final Result [facility] from Last 3 Months or Most Recently Relevant to Health Maintenance Insurance [employer] [facility] [employer] WORK[employer] COMPENSATION GENERIC WORKERS COMPENSATION GENERIC Care Teams Curriculum Writer Relationship Specialty Start Date End Date Jamaal Ibarra DO PCP - General 10/22/17
[2025-07-21 22:25] LABS: Hematocrit 38.6 % (37.0-47.0); Hemoglobin 12.4 g/dL (12.0-15.0); Immature Granulocyte Percent A 0.4 % (0-0.5); Immature Platelet Fraction Pct 2.9 % (0.9-11.2); Lymphocytes Absolute Auto 1.95 K/mm3 (0.9-3.2); Mean Corpuscular HGB Conc 32.1 g/dl (32-36); Mean Corpuscular Hemoglobin 28.8 pg (26-34); Mean Corpuscular Volume 89.6 fl (80-100); Nucleated Red Blood Cells Absolute Auto 0.000 K/mm3 (0.0-0.012); Nucleated Red Blood Cells Perc 0.0 % (0.0-0.2); Platelet Count Result 131 k/mm3 (150-375); Red Blood Count 4.31 M/mm3 (4.2-5.4); White Blood Count 9.8 K/mm3 (4.5-10.0)
[2025-07-21 22:29] LABS: BEDSIDEPREGUCG Negative (Negative)
[2025-07-21 22:49] LABS: Add Urine Microscopic? YES; Appearance Urine Cloudy (Clear); Budding Yeast Urine Present /hpf; Glucose Urine UA 3+ mg/dL (Negative); Leukocyte Esterase Ur Negative LEU/UL (Negative); Need Manual Microscopic Reviewed; Nitrate Urine Negative (Negative); Non Pathogenic Casts >20; Specific Grav Ur 1.020 (1.001-1.035)
[2025-07-21 23:04] LABS: Alanine Aminotransferase 18 U/L (6-35); Albumin Level 3.7 g/dL (3.5-5.1); Alkaline Phosphatase 115 U/L (38-126); Anion Gap 13 mmol/L (4-12); Aspartate Amino Transferase 18 U/L (14-36); Bilirubin,Total 0.7 mg/dL (0.2-1.3); Blood Urea Nitrogen 50 mg/dL (7-17); Calcium 10.5 mg/dL (8.4-10.2); Carbon Dioxide 16 mmol/L (22-30); Chloride 105 mmol/L (98-107); Estimated CRCL calculation 30 ml/min; Estimated Glomerular Filt Rate 18; Glucose 356 mg/dL (65-110); Lipase 187 U/L (23-300); Potassium 4.8 mmol/L (3.4-5.0); Sodium 134 mmol/L (137-145); Total Protein 6.7 g/dL (6.3-8.2)
[2025-07-22] MEDS: SODIUM CHLORIDE 0.9% IV 1,000 ML 999 ML IV CONT (00:07)
[2025-07-22] MEDS: MORPHINE SULFATE (*CRX) 4 MG/ML INJ IV PUSH (00:08)
[2025-07-22] MEDS: ONDANSETRON INJ 4 MG/2 ML VIAL IV PUSH (00:08)
--- NOTE | 2025-07-22 01:15 | ED.ABDPAIN ---
HPI - Abdominal Pain General Chief Complaint: Abdominal Pain Stated Complaint: bloody stool Time Seen by Provider: 07/21/25 21:58 Source: patient Mode of arrival: ambulatory Limitations: no limitations History of Present Illness HPI narrative: Patient is a 49-year-old female, with PMH of CKD, who presents the ED with report of rectal bleeding. Patient reports history of constipation. History of IBS-C. She states she has not had a bowel movement in 10 days. Has been taking [id number] laxatives and stool softeners. Did have a bowel movement tonight, but had to strain to pass the stool. She noticed some bright red blood mixed in with the stool. She then prompted here for further evaluation. Was seen in the ED on 07/12 for similar episode of bleeding, at which point she had been constipated for 15 days. She was referred to GI for colonoscopy, but has not been able to make an appointment yet. Reports diffuse abdominal pain, intermittent nausea. Denies fevers, dizziness, lightheadedness. She is not on anticoagulation. Related Data Home Medications ?Medication ?Instructions ?Recorded ?Confirmed ?Last Taken ?Type docusate sodium 100 mg capsule 100 mg PO DAILY 11/02/19 07/19/25 02/08/25 History (Colace) sertraline 100 mg tablet (Zoloft) 100 mg PO DAILY 11/02/19 07/19/25 02/08/25 History zolpidem 10 mg tablet 10 mg PO QPM PRN Insomnia 11/02/19 07/19/25 02/08/25 History prazosin 2 mg capsule (Minipress) 2 mg PO HS 07/03/20 07/19/25 02/08/25 History coenzyme Q10 100 mg capsule (Co 100 mg PO DAILY 10/03/21 07/19/25 02/08/25 History Q-10) trazodone 50 mg tablet 50 mg PO HS 05/21/22 07/19/25 02/08/25 History Humalog KwikPen Insulin See Protocol subcut TIDWMEAL 03/22/23 07/19/25 02/08/25 History atorvastatin 10 mg tablet 20 mg PO QHS 04/02/23 07/19/25 02/08/25 History sumatriptan succinate 6 mg/0.5 mL 6 mg subcut ONCE PRN Migraine 10/07/19/25 01/19/25 History subcutaneous pen injector Headache alprazolam 0.5 mg tablet 0.5 mg PO TID 09/10/23 07/19/25 02/08/25 History blood-glucose sensor (FreeStyle #1 ea 05/13/24 07/19/25 Unknown History Sharita 3 Sensor device) glucagon 3 mg/actuation nasal 3 mg intranasal PRN PRN 05/13/24 07/19/25 01/19/25 History spray (Baqsimi) Hypoglycemia insulin glargine 100 unit/mL (3 38 unit subcut BID 05/13/24 07/19/25 02/08/25 History mL) subcutaneous pen (Lantus Solostar U-100 Insulin) pen needle, diabetic 32 gauge x #1,200 ea 05/13/24 07/19/25 Unknown History (BD Mer 2nd Gen Pen Needle) pioglitazone 15 mg tablet 15 mg PO DAILY 05/13/24 07/19/25 02/08/25 History prochlorperazine maleate 10 mg 20 mg PO Q4-6H PRN Nausea 06/02/24 07/19/25 01/19/25 History tablet zinc citrate 11 mg chewable tablet 11 mg PO DAILY 08/20/24 07/19/25 02/08/25 History cholecalciferol (vitamin D3) 125 5,000 unit PO DAILY 07/19/25 07/19/25 Unknown History mcg (5,000 unit) tablet Allergies Allergy/AdvReac Type Severity Reaction Status Date / Time latex Allergy Severe itching Verified 07/19/25 14:16 metoclopramide Allergy Severe Redness of Verified 07/19/25 14:16 Skin Review of Systems Review of Systems: All systems reviewed & are unremarkable except as noted in HPI. 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 Gastroparesis Irritable bowel syndrome with constipation Cyclic vomiting syndrome Insulin dependent diabetes mellitus Hyperlipidemia Hypertension Gastroesophageal reflux disease Vitamin B 12 deficiency Anxiety Depression Hypothyroidism Fibromyalgia Rheumatoid arthritis Endometriosis Herpes Uterine fibroid Peptic ulcer Bronchitis Surgical History Surgical History History of colonoscopy April 2021 History of esophagogastroduodenoscopy (EGD) approx 2019 History of cholecystectomy History of detached retina repair History of partial knee replacement History of hysterectomy History of laparoscopy Removal of uterine fibroids Family History Family History Mother Diabetes mellitus Hypertension Family history of elevated blood lipids Sibling Family history of obesity Patient's sister is in good health Father Hypertension Family history of cardiovascular disease Other Acute myocardial infarction Family history of arthritis Family history of heart disease in male family member before age 55 Family history of thyroid disease Social History Social History Social History: Lives alone in [place]. with no children. No alcohol, tobacco, illicit substance abuse. Surrogate decision maker: Susan Mariano, sister. Code status: Full code. 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 HEAD: Normocephalic, atraumatic. EYES: Blindness R eye RESPIRATORY: Airway patent, respirations nonlabored. Clear to auscultation bilaterally, no rales, rhonchi, wheezing. CARDIOVASCULAR: Regular rate and rhythm without murmurs, rubs, or gallops. ABDOMINAL: Soft, mild diffuse lower abdominal tenderness, no rebound, nondistended. Normoactive BS. MUSCULOSKELETAL: Moves all extremities. No gross deformities. SKIN: Warm, dry, normal color. NEURO: A&O X3. Speech clear. Cranial nerves II-XII grossly intact. Steady gait. No ataxic movements. PSYCHIATRIC: Appropriate mood and affect. Normal interaction. Course Vital Signs Vital signs: Vital Signs Temperature 97.9 F 07/21/25 18:43 Pulse Rate 80 07/21/25 18:43 Respiratory Rate 16 07/21/25 18:43 Blood Pressure 117/76 07/21/25 18:43 Pulse Oximetry 98 07/21/25 18:43 Oxygen Delivery Room Air 07/21/25 18:43 Temperature 97.9 F 07/21/25 18:43 Pulse Rate 76 07/22/25 01:49 Respiratory Rate 16 07/22/25 01:49 Blood Pressure 133/64 07/22/25 01:49 Pulse Oximetry 97 07/22/25 01:49 Oxygen Delivery Room Air 07/21/25 21:58 MDM - Abdominal Pain MDM Narrative Medical decision making narrative: Patient presented to ED with recent prolonged constipation, large bowel movement tonight with some bright red blood mixed in. Recent ED visit for similar episode, thought to be related to internal hemorrhoid, referred to GI for non emergent colonoscopy. Vital signs are stable upon arrival to the ED today. Patient in no acute distress. Cbc without leukocytosis. H&H is stable. Appears consistent to previous records. Does not appear to be down trending. CMP with evidence of possible dehydration, bicarb 16, anion gap minimally elevated to 13. Fluids initiated. Kidney function appears at baseline. Blood glucose was elevated, though this appears chronic for patient. Almost always elevated above 200. Fluids are ongoing. Low suspicion for DKA, likely more r/t dehydration. UA without signs of infection. CT scan of abdomen/pelvis was obtained and without acute abnormalities. No evidence of colitis, active bleeding, surgical findings, bowel obstruction. Discussed lab and imaging findings with patient, overall reassuring workup. Feel patient is safe for discharge home to continue to follow-up with GI as an outpatient for colonoscopy. Advised to continue constipation management. Advised to continue to monitor bleeding. Given strict return precautions. She is in agreement with plan. Feels comfortable going home. Given work note. Discharged in stable condition. Medical Records Attestation: I reviewed the patient's medical records. Lab Data Attestation: I reviewed the patient's lab results. 07/21/25 22:13 07/21/25 22:44 Labs: Lab Results 07/21/25 07/21/25 07/21/25 Range/Units 22:13 22:23 22:24 WBC 9.8 (4.5-10.0) K/mm3 RBC 4.31 (4.2-5.4) M/mm3 Hgb 12.4 (12.0-15.0) g/dL Hct 38.6 (37.0-47.0) % MCV 89.6 (80-100) fl MCH 28.8 (26-34) pg MCHC 32.1 (32-36) g/dl RDW 13.3 (11.5-14.5) % Plt Count 131 L (150-375) k/mm3 MPV 11.7 H (7.4-10.4) fl Immature Gran % (Auto) 0.4 (0-0.5) % Neut % (Auto) 72.2 (45.5-73.1) % Lymph % (Auto) 20.0 (18.3-44.2) % [place] % (Auto) 5.5 (2.6-8.5) % Eos % (Auto) 1.5 (0-4.4) % Baso % (Auto) 0.4 (0.2-1.2) % Lymph # (Auto) 1.95 (0.9-3.2) K/mm3 [place] # (Auto) 0.5 (0.1-0.6) K/mm3 Eos # (Auto) 0.2 (0-0.3) K/mm3 Baso # (Auto) 0.0 (0.0-0.1) K/mm3 Abs Immat Gran (auto) 0.04 H (0.00-0.031) K/mm3 Absolute Neuts (auto) 7.0 H (1.3-6.7) K/mm3 Absolute Nucleated RBC 0.000 (0.0-0.012) K/mm3 Nucleated RBC % 0.0 (0.0-0.2) % % Immature Plt Fraction 2.9 (0.9-11.2) % Sodium (137-145) mmol/L Potassium (3.4-5.0) mmol/L Chloride (98-107) mmol/L Carbon Dioxide (22-30) mmol/L Anion Gap (4-12) mmol/L BUN (7-17) mg/dL Creatinine (0.7-1.0) mg/dL Estim Creat Clear Calc ml/min Estimated GFR (59 - ) Glucose (65-110) mg/dL Calcium (8.4-10.2) mg/dL Total Bilirubin (0.2-1.3) mg/dL AST (14-36) U/L ALT (6-35) U/L Alkaline Phosphatase (38-126) U/L Total Protein (6.3-8.2) g/dL Albumin (3.5-5.1) g/dL Lipase (23-300) U/L Urine Color Yellow (Yellow) Urine Appearance Cloudy H (Clear) Urine pH 5.0 (5.0-9.0) Ur Specific Stryker 1.020 (1.001-1.035) Urine Protein 3+ H (Negative) mg/dL Urine Glucose (UA) 3+ H (Negative) mg/dL Urine Ketones Trace H (Negative) mg/dL Ur Blood (Man) Negative (Negative) Urine Nitrate Negative (Negative) Urine Bilirubin Negative (Negative) Urine Urobilinogen 1.0 (<2.0) mg/dL Add Ur Microanalysis Reviewed Leukocyte Esterase Rfl Negative (Negative) LETY/UL Urine RBC 3-5 H (0-2) /hpf Urine WBC 0-5 (0-3) /hpf Ur Squamous Epith Cells Few (Few) /hpf Urine Bacteria Rare /hpf Urine Casts >20 Hyaline Casts Present (None) /lpf Urine Yeast (Budding) Present H (None) /hpf POC Urine HCG, Qual Negative (Negative) 07/21/25 Range/Units 22:44 WBC (4.5-10.0) K/mm3 RBC (4.2-5.4) M/mm3 Hgb (12.0-15.0) g/dL Hct (37.0-47.0) % MCV (80-100) fl MCH (26-34) pg MCHC (32-36) g/dl RDW (11.5-14.5) % Plt Count (150-375) k/mm3 MPV (7.4-10.4) fl Immature Gran % (Auto) (0-0.5) % Neut % (Auto) (45.5-73.1) % Lymph % (Auto) (18.3-44.2) % [place] % (Auto) (2.6-8.5) % Eos % (Auto) (0-4.4) % Baso % (Auto) (0.2-1.2) % Lymph # (Auto) (0.9-3.2) K/mm3 [place] # (Auto) (0.1-0.6) K/mm3 Eos # (Auto) (0-0.3) K/mm3 Baso # (Auto) (0.0-0.1) K/mm3 Abs Immat Gran (auto) (0.00-0.031) K/mm3 Absolute Neuts (auto) (1.3-6.7) K/mm3 Absolute Nucleated RBC (0.0-0.012) K/mm3 Nucleated RBC % (0.0-0.2) % % Immature Plt Fraction (0.9-11.2) % Sodium 134 L (137-145) mmol/L Potassium 4.8 (3.4-5.0) mmol/L Chloride 105 (98-107) mmol/L Carbon Dioxide 16 L (22-30) mmol/L Anion Gap 13 H (4-12) mmol/L BUN 50 H (7-17) mg/dL Creatinine 2.77 H (0.7-1.0) mg/dL Estim Creat Clear Calc 30 ml/min Estimated GFR 18 L (59 - ) Glucose 356 H (65-110) mg/dL Calcium 10.5 H (8.4-10.2) mg/dL Total Bilirubin 0.7 (0.2-1.3) mg/dL AST 18 (14-36) U/L ALT 18 (6-35) U/L Alkaline Phosphatase 115 (38-126) U/L Total Protein 6.7 (6.3-8.2) g/dL Albumin 3.7 (3.5-5.1) g/dL Lipase 187 (23-300) U/L Urine Color (Yellow) Urine Appearance (Clear) Urine pH (5.0-9.0) Ur Specific Stryker (1.001-1.035) Urine Protein (Negative) mg/dL Urine Glucose (UA) (Negative) mg/dL Urine Ketones (Negative) mg/dL Ur Blood (Man) (Negative) Urine Nitrate (Negative) Urine Bilirubin (Negative) Urine Urobilinogen (<2.0) mg/dL Add Ur Microanalysis Leukocyte Esterase Rfl (Negative) LETY/UL Urine RBC (0-2) /hpf Urine WBC (0-3) /hpf Ur Squamous Epith Cells (Few) /hpf Urine Bacteria /hpf Urine Casts Hyaline Casts (None) /lpf Urine Yeast (Budding) (None) /hpf POC Urine HCG, Qual (Negative) Imaging Data Attestation: I personally reviewed and interpreted this imaging study as follows: Radiologist's impression: STAT RAD CT abd/pelvis: Impression: No acute intra-abdominal abnormality. No bowel obstruction or inflammation. Normal appendix. No hydronephrosis or renal calculus. Cholecystectomy. Cardiomegaly. Small pericardial effusion. Small hiatal hernia. Distal esophageal mural thickening, inflammation versus underdistention. Hysterectomy. Discharge Plan Discharge Clinical Impression: BRBPR (bright red blood per rectum) Constipation Qualifiers: Constipation type: unspecified constipation type Qualified Code(s): K59.00 - Constipation, unspecified Patient Disposition: Home Condition: Stable Instructions: Antibiotic Form, Constipation (ED), Rectal Bleeding (ED), High Fiber Diet (ED) Additional Instructions: Your workup here was reassuring. Continue to monitor symptoms. Continue MiraLax and Dulcolax up to twice daily as needed for constipation. Stay very well hydrated. Recommend plenty of fluids. Recommend high-fiber diet. Continue to follow-up closely with your primary care doctor and GI for further evaluation. Return to the ED if you experience worsening or severe symptoms, severe constipation, severe pain, severe bleeding, unable to keep down food or drink, fevers, dizziness/lightheadedness, or any other symptoms of concern. Patient Language: Gambian Prescriptions: No Action insulin glargine [Lantus Solostar U-100 Insulin] 100 unit/mL (3 mL) insulin pen 38 unit subcut BID (DME) pen needle, diabetic [BD Mer 2nd Gen Pen Needle] 32 gauge x 5/32 needle See Rx Instructions .ROUTE .MEDSUPPLY Qty: 1200 Rx Instructions: As directed pioglitazone 15 mg tablet 15 mg PO DAILY Baqsimi 3 mg/actuation spray,non-aerosol 3 mg intranasal PRN PRN (Reason: Hypoglycemia) (DME) FreeStyle Sharita 3 Sensor Device See Rx Instructions .ROUTE .MEDSUPPLY Qty: 1 Rx Instructions: As directed sucralfate 1 gram tablet 1 g PO .qid with meals Qty: 120 1RF chlorthalidone 25 mg tablet 25 mg PO DAILY Qty: 30 6RF carvedilol 6.25 mg tablet 6.25 mg PO Q12H Qty: 60 6RF cholecalciferol (vitamin D3) 125 mcg (5,000 unit) tablet 5,000 unit PO DAILY clotrimazole-betamethasone 1-0.05 % cream 1 applic topical BID Qty: 15 1RF docusate sodium [Colace] 100 mg capsule 100 mg PO DAILY sertraline [Zoloft] 100 mg tablet 100 mg PO DAILY zolpidem 10 mg tablet 10 mg PO QPM PRN (Reason: Insomnia) atorvastatin 10 mg tablet 20 mg PO QHS alprazolam 0.5 mg tablet 0.5 mg PO TID spironolactone 25 mg tablet 25 mg PO DAILY Qty: 30 11RF bumetanide 1 mg tablet 1 mg PO BID Qty: 60 6RF zinc citrate 11 mg tablet,chewable 11 mg PO DAILY acyclovir 400 mg tablet 400 mg PO BID Qty: 180 3RF Trulance 3 mg tablet 3 mg PO DAILY 30 Days Qty: 30 3RF lactulose 10 gram packet 10 g PO BID Qty: 30 1RF Humalog KwikPen Insulin See Protocol subcut TIDWMEAL Protocol: Insulin Corrective High-Dose Condition: glucose < 70 mg/dl Dose/Route: Follow hypoglycemia order Condition: glucose 70-200 mg/dl Dose/Route: No additional insulin Condition: glucose 201-250 mg/dl Dose/Route: 4 units sub-Q Condition: glucose 251-300 mg/dl Dose/Route: 5 units sub-Q Condition: glucose 301-350 mg/dl Dose/Route: 6 units sub-Q Condition: glucose 351-400 mg/dl Dose/Route: 8 units sub-Q Condition: glucose > 400 mg/dl Dose/Route: Call Protocol Text: *No Correction Dose at Bedtime* Rx Instructions: Uses sliding scale for blood glucose greater than 150 prochlorperazine maleate 10 mg tablet 20 mg PO Q4-6H PRN (Reason: Nausea) ondansetron 4 mg tablet,disintegrating 4 mg PO Q8H PRN (Reason: nausea and vomiting) Qty: 7 0RF bisacodyl [Dulcolax (bisacodyl)] 10 mg suppository 10 mg RECTAL TID PRN (Reason: constipation) Qty: 12 0RF prazosin [Minipress] 2 mg Capsule 2 mg PO HS trazodone 50 mg Tablet 50 mg PO HS sumatriptan succinate 6 mg/0.5 mL pen injector 6 mg subcut ONCE PRN (Reason: Migraine Headache) Rx Instructions: may repeat dose once in 1 hour if not relieved dicyclomine 10 mg capsule 10 mg PO BID PRN (Reason: abdominal pain) 10 Days Qty: 20 0RF coenzyme Q10 [Co Q-10] 100 mg capsule 100 mg PO DAILY amitriptyline 25 mg tablet 50 mg PO HS Qty: 180 1RF amlodipine 5 mg tablet See Rx Instructions .ROUTE .COMPLEX Qty: 90 1RF Dose Instruction: TAKE 1 TABLET BY MOUTH DAILY Rx Instructions: TAKE 1 TABLET BY MOUTH DAILY topiramate [Topamax] 25 mg capsule, sprinkle 50 mg PO BID Qty: 360 1RF Rx Instructions: titrate up to 50mg bid as directed Ibsrela 50 mg tablet 50 mg PO BID 30 Days Qty: 60 5RF Rx Instructions: must administer immediately before first meal of day/breakfast and dinner pantoprazole 40 mg tablet,delayed release (DR/EC) 40 mg PO DAILY PRN (Reason: Nausea) Qty: 90 1RF Follow-up/Referrals: Jamaal Ibarra DO [Primary Care Provider, Internal Medicine] Stand Alone Forms: Work/School Release IP Time of Disposition: 01:26
[2025-07-22 01:49] VITALS: BP 133/64; PULSE 76; RESP 16; O2SAT 97
== END 2025-07-22 01:50 | disposition home or self-care (01) ==
PROVIDERS: Student in an Organized Health Care Education/Training Program; Emergency Provider Physician Assistant; PCP Internal Medicine
DX: K62.5 Hemorrhage of anus and rectum (principal); K58.1 Irritable bowel syndrome with constipation; E11.22 Type 2 diabetes mellitus with diabetic chronic kidney disease; I12.9 Hypertensive chronic kidney disease with stage 1 through stage 4 chronic kidney disease, or unspecified chronic kidney disease; N18.9 Chronic kidney disease, unspecified; E11.43 Type 2 diabetes mellitus with diabetic autonomic (poly)neuropathy; K31.84 Gastroparesis; E11.21 Type 2 diabetes mellitus with diabetic nephropathy; E78.5 Hyperlipidemia, unspecified; E03.9 Hypothyroidism, unspecified; E53.8 Deficiency of other specified B group vitamins; E66.01 Morbid (severe) obesity due to excess calories; Z68.39 Body mass index [BMI] 39.0-39.9, adult; N80.9 Endometriosis, unspecified; M06.9 Rheumatoid arthritis, unspecified; M79.7 Fibromyalgia; F43.10 Post-traumatic stress disorder, unspecified; F41.9 Anxiety disorder, unspecified; F32.A Depression, unspecified; Z96.659 Presence of unspecified artificial knee joint; Z87.11 Personal history of peptic ulcer disease; Z90.49 Acquired absence of other specified parts of digestive tract; Z90.710 Acquired absence of both cervix and uterus; Z79.4 Long term (current) use of insulin; Z79.899 Other long term (current) drug therapy
CPT/HCPCS: 36415; 74176; 80053; 81001; 81025; 83690; 85025; 85055; 96361; 96374; 96375; 99284; J2270; J2405; J7030

== ENCOUNTER 2025-07-23 11:17 | Observation (INO) | payer OTHER, SELFPAY ==
--- OUTSIDE RECORDS SUMMARY | 2019-07-08 | XMS_ITS | Encounter Summary ---
Author Organization [facility] Healthcare Address [address] [place] [address] Care Team Providers Care Mft Name Role Phone Jamaal Ibarra DO Primary Care Provider Reason for Visit * Diagnostic Imaging (Routine) - Closed Specialty Diagnoses / Procedures Referred By Liz borrero Referred To Contact Procedures Breast Imaging Screening Outside Reference Saul Ortiz NP Phone: tel: fax: Referral ID Status Reason Start Date Expiration Date Visits Re quested Visits Authorized [id number] Closed 10/16/2022 11/15/2023 1 1 Encounter Details Date Type Department Care Team (Late st Contact Info) Description 07/08/2019 Hospital Encounter [facility]iology [facility] [place] [address] Social History Tobacco Use Types [...] on file Legal Sex Female 12:16 AM HEALTH CARE SPECIALIST Gender Identity Not on file Sexual Orientation [...] CDT) Impressions [facility] - 10/16/2022 11:48 AM HEALTH CARE SPECIALIST These images are for Reference purposes only and have not been reviewed by [facility] Radiology. There will be no report generated by a [facility] Radiologist. Narrative RAD_M[facility] - 10/16/2022 11:48 AM HEALTH CARE SPECIALIST EXAMINATION: Images For Reference Purposes Only us Saul Ortiz NP IMG MAMMO PROCEDURES Final Result [facility] documented in this encounter Visit Diagnoses Not on filedocumented in this encounter Care Teams Mft Relationship Specialty Start Date End Date Jamaal Ibarra DO PCP - General 10/22/17 documented as of this encounter
--- OUTSIDE RECORDS SUMMARY | 2019-07-15 | XMS_ITS | Encounter Summary ---
Author Organization [facility] Healthcare Address [address] [place] [address] Care Team Providers Care Day Camp Counselor Name Role Phone Jamaal Ibarra DO Primary Care Provider Reason for Visit * Diagnostic Imaging (Routine) - Closed Specialty Diagnoses / Procedures Referred By Liz borrero Referred To Contact Procedures Breast Imaging US Outside Reference Saul Ortiz NP Phone: tel: fax: Referral ID Status Reason Start Date Expiration Date Visits Re quested Visits Authorized [id number] Closed 10/16/2022 11/15/2023 1 1 Encounter Details Date Type Department Care Team (Late st Contact Info) Description 07/15/2019 Hospital Encounter [facility] Radiology [facility] [place] [address] Social History Tobacco Use Types [...] on file Legal Sex Female 12:16 AM DAMPPROOFER Gender Identity Not on file Sexual Orientation [...] CDT) Impressions RAD[facility] - 10/16/2022 11:47 AM DAMPPROOFER These images are for Reference purposes only and have not been reviewed by [facility] Radiology. There will be no report generated by a [facility] Radiologist. Narrative RAD_M[facility]MO[facility] - 10/16/2022 11:47 AM DAMPPROOFER EXAMINATION: Images For Reference Purposes Only us Saul Ortiz NP IMG MAMMO PROCEDURES Final Result [facility] documented in this encounter Visit Diagnoses Not on filedocumented in this encounter Care Teams Day Camp Counselor Relationship Specialty Start Date End Date Jamaal Ibarra DO PCP - General 10/22/17 documented as of this encounter
--- OUTSIDE RECORDS SUMMARY | 2019-07-15 00:05 | XMS_ITS | Encounter Summary ---
Author Organization [facility] Healthcare Address [address] [place] [address] Care Team Providers Care Associate Principal Name Role Phone Jamaal Ibarra DO Primary Care Provider Reason for Visit * Diagnostic Imaging (Routine) - Closed Specialty Diagnoses / Procedures Referred By Liz borrero Referred To Contact Procedures Breast Imaging Diagnostic Outside Reference Saul Ortiz NP Phone: tel: fax: Referral ID Status Reason Start Date Expiration Date Visits Re quested Visits Authorized [id number] Closed 10/16/2022 11/15/2023 1 1 Encounter Details Date Type Department Care Team (Late st Contact Info) Description 07/15/2019 12:05 AM CDT Hospital Encounter [facility] Radiology [facility] [address] [place] [address] Social History Tobacco Use Types Packs/Day Years [...] on file Legal Sex Female 12:16 AM ASSISTANT MANAGER BILINGUAL Gender Identity Not on file Sexual Orientation [...] CDT) Impressions [facility] - 10/16/2022 11:47 AM ASSISTANT MANAGER BILINGUAL These images are for Reference purposes only and have not been reviewed by [facility] Radiology. There will be no report generated by a [facility] Radiologist. Narrative [facility] - 10/16/2022 11:47 AM ASSISTANT MANAGER BILINGUAL EXAMINATION: Images For Reference Purposes Only us Saul Ortiz NP IMG MAMMO PROCEDURES Final Result [facility] documented in this encounter Visit Diagnoses Not on filedocumented in this encounter Care Teams Associate Principal Relationship Specialty Start Date End Date Jamaal Ibarra DO PCP - General 10/22/17 documented as of this encounter
--- OUTSIDE RECORDS SUMMARY | 2020-04-29 | XMS_ITS | Encounter Summary ---
Author Organization [facility] Healthcare Address [address] [place] [address] Care Team Providers Care Funeral Location Manager Name Role Phone Jamaal Ibarra DO Primary Care Provider Reason for Visit * Diagnostic Imaging (Routine) - Closed Specialty Diagnoses / Procedures Referred By Liz borrero Referred To Contact Procedures Breast Imaging US Outside Reference Saul Ortiz NP Phone: tel: fax: Referral ID Status Reason Start Date Expiration Date Visits Re quested Visits Authorized [id number] Closed 10/16/2022 11/15/2023 1 1 Encounter Details Date Type Department Care Team (Late st Contact Info) Description 04/29/2020 Hospital Encounter [facility]) [address] [place] [address] Social History Tobacco Use Types Packs/Day [...] on file Legal Sex Female 12:16 AM TITLE CURATOR Gender Identity Not on file Sexual Orientation [...] CDT) Impressions [facility] - 10/16/2022 11:47 AM TITLE CURATOR These images are for Reference purposes only and have not been reviewed by [facility] Radiology. There will be no report generated by a [facility] Radiologist. Narrative [facility] - 10/16/2022 11:47 AM TITLE CURATOR EXAMINATION: Images For Reference Purposes Only us Saul Ortiz NP IMG MAMMO PROCEDURES Final Result [facility] documented in this encounter Visit Diagnoses Not on filedocumented in this encounter Care Teams Funeral Location Manager Relationship Specialty Start Date End Date Jamaal Ibarra DO PCP - General 10/22/17 documented as of this encounter
--- OUTSIDE RECORDS SUMMARY | 2020-04-29 00:05 | XMS_ITS | Encounter Summary ---
Author Organization [facility] Healthcare Address [address] [place] [address] Care Team Providers Care Insurance Claims Adjuster Name Role Phone Jamaal Ibarra DO Primary Care Provider Reason for Visit * Diagnostic Imaging (Routine) - Closed Specialty Diagnoses / Procedures Referred By Liz borrero Referred To Contact Procedures Breast Imaging Diagnostic Outside Reference Saul Ortiz NP Phone: tel: fax: Referral ID Status Reason Start Date Expiration Date Visits Re quested Visits Authorized [id number] Closed 10/16/2022 11/15/2023 1 1 Encounter Details Date Type Department Care Team (Late st Contact Info) Description 04/29/2020 12:05 AM CDT Hospital Encounter [facility]iology [facility] [address] [place] [address] Social History Tobacco Use Types Packs/Day Years [...] on file Legal Sex Female 12:16 AM SPANISH 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/TRANSLATOR Gender Identity Not on file Sexual Orientation Not on file documented as of this encounter Plan of Treatment Not on file documented as of this encounter Procedures Procedure Name Priority Date/Time Associated Diagnosis Comments BREAST IMAGING MG DIAGNOSTIC OUTSIDE REFERENCE Routine 04/29/2020 12:05 AM CDT documented in this encounter Results * Breast Imaging Diagnostic Outside Reference (04/29/2020 12:05 AM CDT) Impressions [facility] - 10/16/2022 11:47 AM SPANISH INTERPRETER/TRANSLATOR These images are for Reference purposes only and have not been reviewed by [facility] Radiology. There will be no report generated by a [facility] Radiologist. Narrative RAD_M[facility] - 10/16/2022 11:47 AM SPANISH INTERPRETER/TRANSLATOR EXAMINATION: Images For Reference Purposes Only us Saul Ortiz NP IMG MAMMO PROCEDURES Final Result [facility] documented in this encounter Visit Diagnoses Not on filedocumented in this encounter Care Teams Insurance Claims Adjuster Relationship Specialty Start Date End Date Jamaal Ibarra DO PCP - General 10/22/17 documented as of this encounter
[2025-07-23] VITALS (13 sets, daily range): BP systolic 137–188; BP diastolic 76–125; PULSE 93–113; RESP 15–22; TEMP 36.2–36.9; O2SAT 92–96; BMI 40.0
--- NOTE | ~2025-07-23 | CT_ITS ---
CT abdomen pelvis wo con INDICATION:vomiting, galina . COMPARISON: 07/21/2025 TECHNIQUE: Axial 2.5 mm images of the abdomen were obtained without IV or oral contrast. Diagnostic sensitivity is limited due to lack of IV contrast. FINDINGS: Heart is enlarged. There is chronic parenchymal changes at the lung bases. No focal consolidation. Ill-defined irregular area of low density within the left hepatic lobe is again noted. The patient has had a cholecystectomy. The pancreas and spleen are normal in appearance. The adrenal glands are symmetric in size. The kidneys are unremarkable. No intrarenal stones are noted. There is no hydronephrosis. The stomach and bowel loops are unremarkable. The appendix is normal in appearance. Irregular rectal wall thickening can be further evaluated with colonoscopy. No free intraperitoneal fluid or air is evident. There is no significant retroperitoneal lymphadenopathy. The aorta, visceral vessels and renal arteries demonstrate normal caliber. The lower thoracic and lumbar vertebrae are in normal alignment. IMPRESSION: Focal circumferential thickening of the rectal wall can be followed evaluated with colonoscopy. Ill-defined irregular area of low attenuation in the left hepatic lobe is unchanged. All CT scans at this facility are performed using low dose modulation techniques as appropriate to perform exam including the following: automated exposure control; use of iterative reconstruction technique; adjustment of the mA and/or kV according to patient size (this includes techniques or standardized protocols for targeted exams where dose is matched to indication/reason for exam). Reviewed, dictated and finalized at location S. IMPRESSION: Focal circumferential thickening of the rectal wall can be followed evaluated w ith colonoscopy. Ill-defined irregular area of low attenuation in the left hepatic lobe is uncha nged. All CT scans at this facility are performed using low dose modulation techniqu es as appropriate to perform exam including the following: automated exposure c ontrol; use of iterative reconstruction technique; adjustment of the mA and/or kV according to patient size (this includes techniques or standardized protocol s for targeted exams where dose is matched to indication/reason for exam).
--- NOTE | 2025-07-23 12:31 | PC.NURSE ---
Unable to obtian IV/labs x2 RN, VAT Called
[2025-07-23 12:40] LABS: Alveolar/Arterial O2 Gradient 24.5 mmHg; Carboxyhemoglobin 0.7 % THb (0-2.0); Fractional Inspired Oxygen 21 %; HCO3 ABG 14.1 mEq/l (22.0-26.0); Methemoglobin ABG 0.2 %THb (0-1.5); Oxygen Content ABG 20.0 %vol (16.0-22.0); Oxygen Saturation ABG 98.5 % (95.0-100.0); PO2 ABG 105.6 mmHg (80.0-100.0); PO2 FiO2 Ratio Arterial Blood 5.03 %; Reduced Hemoglobin 1.4 %THb (0-5.0)
[2025-07-23 12:43] LABS: PCO2 ABG 16.4 mmHg (35.0-45.0)
[2025-07-23] MEDS: SODIUM CHLORIDE 0.9% IV 1,000 ML 999 ML IV CONT ×3 (12:45→14:42)
[2025-07-23] MEDS: ONDANSETRON INJ 4 MG/2 ML VIAL IV PUSH ×2 (12:45→19:06)
[2025-07-23 12:53] LABS: Hematocrit 42.3 % (37.0-47.0); Hemoglobin 13.8 g/dL (12.0-15.0); Immature Granulocyte Percent A 0.8 % (0-0.5); Lymphocytes Absolute Auto 0.86 K/mm3 (0.9-3.2); Mean Corpuscular HGB Conc 32.6 g/dl (32-36); Mean Corpuscular Hemoglobin 28.3 pg (26-34); Mean Corpuscular Volume 86.9 fl (80-100); Nucleated Red Blood Cells Absolute Auto 0.000 K/mm3 (0.0-0.012); Nucleated Red Blood Cells Perc 0.0 % (0.0-0.2); Platelet Count Result 239 k/mm3 (150-375); Red Blood Count 4.87 M/mm3 (4.2-5.4); White Blood Count 20.7 K/mm3 (4.5-10.0)
--- NOTE | 2025-07-23 13:10 | PC.NURSE ---
pt refusing to wear monitor equipment, education provided, no evidence of learning, pt in NAD
--- OUTSIDE RECORDS SUMMARY | 2025-07-23 13:15 | XMS_ITS | Encounter Summary ---
Author Organization [facility] Address [address] [place] [address] Phone Care Team Providers Care Geothermal Operations Manager Name Role Phone Jamaal Ibarra DO Primary Care Provider Encounter Details Date Type Department Care Team (Late st Contact Info) Description 08/03/2021 Orders Only [facility] Medicine Rheumatology [address] [facility] Advanced Medicine 5th [place] [address] [place] [address] Jana Medley CMA Social History Tobacco Use Types Packs/Day Years Used Date Smoking Tobacco: Never Comments Unknown Sex and Gender Information Value Date Recorded Sex Assigned at Not on file 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
--- OUTSIDE RECORDS SUMMARY | 2025-07-23 13:15 | XMS_ITS | Encounter Summary ---
Author Organization [facility] Address [address] [place] [address] Phone Care Team Providers Care Roll Scale Man Name Role Phone Jamaal Ibarra DO Primary Care Provider Encounter Details Date Type Department Care Team (Late st Contact Info) Description 10/18/2021 Telephone [facility] Medicine Rheumatology [address] [place] [address] 5th [place] [address] [place] [phone] Era Taylor CMA Social History Tobacco Use Types Packs/Day Years Used Date Smoking Tobacco: Never Smokeless Tobacco: Never Comments Unknown Sex and Gender Information Value Date Recorded Sex Assigned at Not on file Legal Sex Female 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
--- OUTSIDE RECORDS SUMMARY | 2025-07-23 13:15 | XMS_ITS | Clinical Summary ---
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 AVG GLUCOSE, A1C 194 mg/dL 01/29/2025 3:35 PM CDT [facility] Blood Venipuncture / Unknown 01/29/2025 2:08 PM CDT 01/29/2025 3:15 PM CDT [facility] - 01/29/2025 3:35 PM CDT HGB A1C INTERPRETATION NORMAL: <5.7% PRE-DIABETES: 5.7 - 6.4% DIABETES: 6.5% OR GREATER us Michael Hoskins MD CHEMISTRY ORDERABLES Final R esult [facility]# [id number] [address] [place] [place] [id number] from Last 3 Months or Most Recently Relevant to Health Maintenance Insurance [facility] BLUE PREFERRED RX [employer] Commercial Advance Directives For more information, please contact: [phone] * Full Code (Latest Code Status on File) Date Activated Date Inactivated Comments 01/29/2025 1:42 PM 02/02/2025 12:23 PM Care Teams Staff Development Manager Relationship Specialty Start Date End Date Jamaal Ibarra DO [address] [facility] [address] [place] [id number] PCP - General Internal Medicine 07/11/18
--- OUTSIDE RECORDS SUMMARY | 2025-07-23 13:15 | XMS_ITS | Clinical Summary ---
Author Organization [facility] Address [address] [place] [address] Care Team Providers Care Tobacco Feeder Catcher Name Role Phone Lebron Pugh V. DO Unavailable Jamaal Ibarra DO Primary Care Provider Source Comments [facility],non-owned Affiliates and Associated Physician Practices is amultiple site organization consisting of ambulatory clinics and hospital sitesin [place], [place], [place] and [place]. This disclosure is being madepursuant to the Care Everywhere program and may not contain all information available regarding this patient. Last updated 18.[facility] Allergies Active Allergy Reactions Criticality Noted Date [...] tablet 2 Active vitamin D, ergocalciferol, (DRISDOL) 62001 UNITS capsule 1 Active gabapentin (NEURONTIN) 300 MG capsule 2 Active simvastatin (ZOCOR) 20 MG tablet 1 Active traMADol (ULTRAM) 50 MG tablet 1 014 Active traZODone (DESYREL) 50 MG tablet 6 Active zolpidem (AMBIEN) 10 MG tablet 5 Active megestrol (MEGACE) 40 MG tablet Take 1 Tab by mouth once daily. 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 Not on file Not on file Last Filed Vital Signs Vital Sign Reading Time Taken Comments Blood Pressure 126/74 10/21/2014 11:57 AM ELECTRONIC EQUIPMENT INSTALLER Pulse 102 09/16/2013 1:06 PM ELECTRONIC EQUIPMENT INSTALLER Temperature 36.8 C (98.2 F) 09/16/2013 1:06 PM ELECTRONIC EQUIPMENT INSTALLER Respiratory Rate 20 09/16/2013 1:06 PM ELECTRONIC EQUIPMENT INSTALLER Oxygen Saturation 98% 09/16/2013 1:06 PM ELECTRONIC EQUIPMENT INSTALLER Inhaled Oxygen Concentration - - Weight 89.8 kg (198 lb) 10/21/2014 11:57 AM ELECTRONIC EQUIPMENT INSTALLER Height 172.7 cm (5' 8) 10/21/2014 11:57 AM ELECTRONIC EQUIPMENT INSTALLER Body Mass Index 30.11 10/21/2014 11:57 AM ELECTRONIC EQUIPMENT INSTALLER Plan of Treatment Health Maintenance Due Date Last Done Comments COLOGUARD (AGES 45-75) - COLON CA SCREENING 1974 COLON MONITORING 1974 COLONOSCOPY - COLON CA SCREENING 1974 CT COLONOGRAPHY - COLON CA SCREENING 1974 Colorectal Cancer Screening 1974 FIT - COLON CA SCREENING 1974 FLEX SIG - COLON CA SCREENING 1974 COVID-19 VACCINE (#1) 12/21/1979 HIV SCREENING 1989 HEPATITIS C SCREENING 12/15/1992 [...] MAMMO BILAT SCREENING Routine 09/22/2013 8:09 AM ELECTRONIC EQUIPMENT INSTALLER Screening COMPREHENSIVE METABOLIC PANEL Routine 08/22/2013 8:00 AM ELECTRONIC EQUIPMENT INSTALLER DM w/o Complication Type II, Uncontrolled HTN (hypertension), benign Abdominal pain, RUQ (right upper quadrant) Ketonuria HEMOGLOBIN A1C Routine 08/22/2013 8:00 AM ELECTRONIC EQUIPMENT INSTALLER DM w/o Complication Type II, Uncontrolled MICROALB/CREAT RATIO URINE RANDOM PANEL Routine 08/21/2013 9:29 AM ELECTRONIC EQUIPMENT INSTALLER DM w/o Complication Type II, Uncontrolled from Last 3 Months or Most Recently Relevant to Health Maintenance Results * MAMM SCREENING DIGITAL IMAGE BILAT G0202 (09/22/2013 8:09 AM ELECTRONIC EQUIPMENT INSTALLER) Anatomical Region Laterality Modality Breast Bilateral Mammography 09/22/2013 11:5 3 AM ELECTRONIC EQUIPMENT INSTALLER Impressions 09/22/2013 11:56 AM ELECTRONIC EQUIPMENT INSTALLER No malignant abnormality identified. No significant change. BI-RADS category 1. Negative. RECOMMENDATIONS: Routine mammograms in one year. Narrative 09/22/2013 11:56 AM ELECTRONIC EQUIPMENT INSTALLER Screening mammogram: HISTORY: Screening mammogram. Two views [...] Bienvenido Mcnair Jr., MD MAMMO ORDERABLES Era read Result * (ABNORMAL) HEMOGLOBIN A1C (08/22/2013 8:00 AM ELECTRONIC EQUIPMENT INSTALLER) Hemoglobin A1c 12.6(H) <5.7 % of total [...] of diabetes for children. Test Performed at: [facility] [address] [place] [address] PAPO BENNETT DO,MPH Whole blood specimen (specimen) BLOOD SPECIMEN / Unknown 08/22/2013 4:53 AM ELECTRONIC EQUIPMENT INSTALLER Salma Hunt LOBSTER CATCHER-CLIENT ANALYST LAB - CHEMISTRY ORDERA BLES Final Result [facility] [address] [place] [address] * (ABNORMAL) COMPREHENSIVE METABOLIC PANEL (08/22/2013 8:00 AM ELECTRONIC EQUIPMENT INSTALLER) Glucose 312(H) 65 - 99 mg/dL [facility] [...] 29 U/L [facility] Comment: Test Performed at: [facility] [id number] PAPO BENNETT DO,MPH Blood specimen (specimen) BLOOD SPECIMEN / Unknown 08/22/2013 4:53 AM ELECTRONIC EQUIPMENT INSTALLER Salma Hunt LOBSTER CATCHER-CLIENT ANALYST LAB - CHEMISTRY ORDERA BLES Final Result [facility] [address] [place] [address] * (ABNORMAL) MICROALB/CREAT RATIO URINE RANDOM PANEL (08/21/2013 9:29 AM ELECTRONIC EQUIPMENT INSTALLER) Creatinine Urine 129 20 - 320 mg/dL [...] within a diagnostic category. Test Performed at: [email or web address] [id number] PAPO BENNETT DO,MPH Urine specimen (specimen) URINE SPECIMEN OBTAINED BY CLEAN CATCH PROCEDURE / Unknown 08/21/2013 9:29 AM ELECTRONIC EQUIPMENT INSTALLER 08/22/2013 4:16 AM ELECTRONIC EQUIPMENT INSTALLER Salma Hunt LOBSTER CATCHER-CLIENT ANALYST LAB - URINE CHEMISTRY ORDERABLES Final Result [facility] [address] [place] [address] from Last 3 Months or Most Recently Relevant to Health Maintenance Insurance ANTHEM ANTHEM Advance Directives * FULL RESUSCITATION (Latest Code Status on File) Date Activated Date Inactivated Comments 05/06/2011 1:35 AM 05/08/2011 5:46 AM Care Teams Tobacco Feeder Catcher Relationship Specialty Start Date End Date Jamaal Ibarra DO [address] [place] [address] PCP - General 06/01/21 Lebron Pugh DO [address] [place] [address] Oncology 06/23/07
--- OUTSIDE RECORDS SUMMARY | 2025-07-23 13:15 | XMS_ITS | Clinical Summary ---
Author Organization [facility] Address [address] [place] [address] Care Team Providers Care Production Expert Name Role Phone Jamaal Ibarra DO Primary Care Provider [phone] Allergies Active Allergy Reactions Criticality Noted Date [...] CDT - 05/25/2025 5:40 AM CDT Emergency [facility] [place] [address] Fazal Brower MD,PHD Dizziness; Difficulty Urinating; Chest [...] PM CDT Legal Sex Female 10:23 PM PARALEGAL INTERNSHIP Gender Identity Not on file Sexual Orientation [...] 2.2 <10 MG/DL 05/25/2025 4:18 AM CDT [facility] URINE SPECIMEN / Unknown 05/25/2025 1:35 AM CDT us Fazal Brower MD,PHD URINE ORDERABLES Final Res ult [facility] [address] [place] [address], [place] [phone] * SODIUM URINE RANDOM (05/25/2025 1:35 AM CDT) NA RANDOM (U) 96 MMOL/L 05/25/2025 2:01 AM CDT [facility] Comment: NOTE: The reference range and other method performance specifications have not been determined for chemistry testing in this type of body fluid. Results should be integrated into clinical context for interpretation. URINE SPECIMEN / Unknown 05/25/2025 1:35 AM CDT us Fazal Brower MD,PHD URINE ORDERABLES Final Res ult Performing Organization Address [facility]/ZIP Co de Phone Number [facility] [address] [place] [address], * CREATININE URINE RANDOM (05/25/2025 1:35 AM CDT) CREATININE (U) 84.4 28 - 217 MG/DL 05/25/2025 4:18 AM CDT [facility] URINE SPECIMEN / Unknown 05/25/2025 1:35 AM CDT us Fazal Brower MD,PHD URINE ORDERABLES Final Res ult [facility] [address] [place] [address], [place] [phone] * ECG 12 lead (05/24/2025 9:39 PM CDT) Only the most recent of2 resultswithin the time period is included. 05/24/2025 9:39 PM CDT Narrative [facility] ([facility] - 05/26/2025 9:[address] [facility] Test Date: 2025-05-24 Pat Name: SILVA LONDONO Department: 41 Room: EXAM12 Gender: Female Kier Pleater: [id number] : 1975 Requested By: INDERJIT STEWART Order Number: [id number] Reading AKHIL Manzanares Measurements Intervals [place] Rate: 64 P: 147 UT: 200 QRS: -34 QRSD: 142 T: 149 [...] Manzanares MD - 05/26/2025 [facility] [address] [place] [address] Test Date: 2025-05-24 Pat Name: SILVA LONDONO Department: 41 Room: EXAM12 Gender: Female Kier Pleater: [id number] : 1975 Requested By: INDERJIT STEWART Order Number: [id number] Reading AKHIL Manzanares Measurements Intervals [place] Rate: 64 P: 147 UT: 200 QRS: -34 QRSD: 142 T: 149 [...] Brower MD,PHD ECG ORDERABLES Final Resu lt [facility] * (ABNORMAL) URINALYSIS (05/24/2025 8:25 PM CDT) SPECIMEN TYPE URINE CLEAN CATCH 05/24/2025 8:25 PM CDT [facility] COLOR (U) LIGHT YELLOW 05/24/2025 8:50 PM CDT [facility] TRANSPARENCY CLEAR 05/24/2025 8:50 PM CDT [facility] SPECIFIC GRAVITY (U) 1.015 1.001 - 1.030 05/24/2025 8:50 PM CDT [facility] U PH 6.0 5.0 - 9.0 05/24/2025 8:50 PM CDT [facility] LEUKOCYTES (U) NEGATIVE NEGATIVE 05/24/2025 8:50 PM CDT [facility] NITRITES NEGATIVE NEGATIVE 05/24/2025 8:50 PM CDT [facility] PROTEIN RANDOM (U) 100(H) <30 MG/DL 05/24/2025 8:50 PM CDT [facility] GLUCOSE (U) 150(A) NORMAL MG/DL 05/24/2025 8:50 PM CDT [facility] KETONES MG/DL (U) NEGATIVE NEGATIVE MG/DL 05/24/2025 8:50 PM CDT [facility] UROBILINOGEN NORMAL NORMAL MG/DL 05/24/2025 8:50 PM CDT [facility] BILIRUBIN (U) NEGATIVE NEGATIVE MG/DL 05/24/2025 8:50 PM CDT [facility] BLOOD (U) NEGATIVE NEGATIVE 05/24/2025 8:50 PM CDT [facility] MUCUS RARE /LPF 05/24/2025 8:50 PM CDT [facility] HYALINE CASTS RARE /LPF 05/24/2025 8:50 PM CDT [facility] WBC/HPF 2 <6 /HPF 05/24/2025 8:50 PM CDT [facility] RBC/HPF 3 <6 /HPF 05/24/2025 8:50 PM CDT [facility] BACTERIA (U) RARE(A) NONE /HPF 05/24/2025 8:50 PM CDT [facility] SQUAMOUS EPITHELIALS RARE /HPF 05/24/2025 8:50 PM CDT [facility] URINE SPECIMEN OBTAINED BY CLEAN CATCH PROCEDURE / Unknown 05/24/2025 8:25 PM CDT Carmen CHRISTINA URINE ORDERABLES Final Result [facility] [address] [place] [address], [place] [phone] * XR CHEST PORTABLE (05/24/2025 8:03 PM CDT) Anatomical Region Laterality Modality Chest Fluoroscopy 05/24/2025 8:09 PM CDT Impressions 05/24/2025 8:09 PM CDT IMPRESSION: No acute cardiopulmonary process. Referred By: Interpreted By: Rd Cisneros MD, 05/24/2025 8:09 PM Narrative 05/24/2025 8:09 PM CDT [facility] [address] [place], [place] [address] EXAM: XR CHEST PORTABLE INDICATION: Chest pain, dyspnea COMPARISON: Chest radiograph, 06 Jul 2018 TECHNIQUE: Single frontal radiographic image of the chest FINDINGS: No pneumothorax, pleural effusion, or focal airspace consolidation. Pulmonary vasculature and cardiomediastinal silhouette within normal limits. No acute osseous abnormality. Procedure Note Rd Cisneros MD - 05/24/[address] [address] EXAM: XR CHEST PORTABLE INDICATION: Chest pain, dyspnea COMPARISON: Chest radiograph, 06 Jul 2018 TECHNIQUE: Single frontal radiographic image of the chest FINDINGS: No pneumothorax, pleural effusion, or focal airspace consolidation.Pulmonary vasculature and cardiomediastinal silhouette within normallimits. No acute osseous abnormality. IMPRESSION: No acute cardiopulmonary process. Referred By: Interpreted By: Rd Cisneros MD, 05/24/2025 8:09 PM Carmen Chavez DE [facility] Final Result * (ABNORMAL) COMPREHENSIVE METABOLIC PANEL (05/24/2025 7:03 PM CDT) GLUCOSE 241(H) 70 - 99 MG/DL 05/24/2025 9:10 PM CDT [facility] BUN 53(H) 7 - 18 MG/DL 05/24/2025 9:10 PM CDT [facility] CREATININE S/P/B 3.13(H) 0.55 - 1.02 MG/DL 05/24/2025 9:10 PM CDT [facility] SODIUM S/P/B 136 136 - 145 MMOL/L 05/24/2025 9:10 PM CDT [facility] POTASSIUM S/P/B 3.9 3.5 - 5.1 MMOL/L 05/24/2025 9:10 PM CDT [facility] CHLORIDE S/P/B 105 97 - 115 MMOL/L 05/24/2025 9:10 PM CDT [facility] CO2 24.1 21 - 32 MMOL/L 05/24/2025 9:10 PM CDT [facility] CALCIUM S/P/B 10.3(H) 8.5 - 10.1 MG/DL 05/24/2025 9:10 PM CDT [facility] BILIRUBIN TOTAL S/P/B 0.4 0.2 - 1.2 MG/DL 05/24/2025 9:10 PM CDT [facility] Comment: THIS ASSAY IS NOT RECOMMENDED FOR PATIENTS UNDERGOING TREATMENT WITH ELTROMBOPAG DUE TO THE POTENTIAL FOR FALSELY ELEVATED RESULTS. TOTAL PROTEIN S/P/B 7.5 6.4 - 8.2 G/DL 05/24/2025 9:10 PM CDT [facility] ALBUMIN S/P/B 3.4 3.4 - 5.0 G/DL 05/24/2025 9:10 PM CDT [facility] AST 13(L) 15 - 37 U/L 05/24/2025 9:10 PM CDT [facility] ALT 20 14 - 55 U/L 05/24/2025 9:10 PM T [facility] ALKALINE PHOSPHATASE S/P/B 130 50 - 136 U/L 05/24/2025 9:10 PM CDT [facility] ANION GAP 6.9 2 - 10 MMOL/L 05/24/2025 9:10 PM CDT [facility] BUN CREATININE RATIO 16.9 6 - 26 05/24/2025 9:10 PM CDT [facility] A/G RATIO 0.8(L) 1.0 - 2.0 RATIO 05/24/2025 9:10 PM T [facility] GFR ESTIMATE 17(L) >90 ML/MIN/1.7 3 M2 05/24/2025 9:10 PM CDT [facility] Comment: NOTE: eGFR is not calculated for patients <18 years of age or gender unknown. This is an estimated GFR calculation using the new CKD EPI creatinine equation without race and so does not require a correction factor for race. This estimated GFR should not be used for calculating drug doses. 05/24/2025 7:03 PM CDT [facility] Final Result [facility] [address] [place] [address], [place] [phone] * (ABNORMAL) CBC W/DIFF AUTOMATED (05/24/2025 7:03 PM CDT) WBC 11.11(H) 4.5 - 11.0 x10'3/uL 05/24/2025 8:37 PM CDT [facility] RBC 4.45 4.20 - 5.40 x10'6/uL 05/24/2025 8:37 PM CDT [facility] HGB 12.8 12.0 - 16.0 G/DL 05/24/2025 8:37 PM CDT [facility] HCT 39.0 38.0 - 48.0 % 05/24/2025 8:37 PM CDT [facility] MCV 87.6 81.0 - 99.0 FL 05/24/2025 8:37 PM CDT [facility] MCH 28.8 27.0 - 31.0 PG 05/24/2025 8:37 PM CDT [facility] MCHC 32.8 32.0 - 36.0 G/DL 05/24/2025 8:37 PM CDT [facility] RDW 14.1 11.5 - 14.5 % 05/24/2025 8:37 PM CDT [facility] PLT 226 130 - 400 x10'3/uL 05/24/2025 8:37 PM CDT [facility] MPV 10.5 9.3 - 12.2 FL 05/24/2025 8:37 PM CDT [facility] DIFFERENTIAL TYPE AUTOMATED DIFFERENTIAL 05/24/2025 8:37 PM CDT [facility] NEUTROPHILS % 70.4 % 05/24/2025 8:37 PM CDT [facility] LYMPHOCYTES % 22.3 % 05/24/2025 8:37 PM CDT [facility] MONOCYTES % 4.6 % 05/24/2025 8:37 PM CDT [facility] EOSINOPHILS 1.7 % 05/24/2025 8:37 PM CDT [facility] BASOPHILS 0.4 % 05/24/2025 8:37 PM CDT [facility] IMMATURE GRANS % 0.6 % 05/24/20 8:37 PM CDT [facility] ABS. NEUTROPHILS 7.82(H) 1.80 - 7.70 x10'3/uL 05/24/2025 8:37 PM CDT [facility] ABS. LYMPHOCYTES 2.48 1.00 - 4.80 x10'3/uL 05/24/2025 8:37 PM CDT [facility] ABS. MONOCYTES 0.51 0.24 - 0.86 x10'3/uL 05/24/2025 8:37 PM CDT [facility] ABS. EOSINOPHILS 0.19 0.04 - 0.36 x10'3/uL 05/24/2025 8:37 PM CDT [facility] ABS. BASOPHILS 0.04 0.01 - 0.08 x10'3/uL 05/24/2025 8:37 PM CDT [facility] ABS. IMMATURE GRANULOCYTES 0.07 0.00 - 0.49 x10'3/uL 05/24/2025 8:37 PM CDT [facility] 05/24/2025 7:03 PM CDT [facility] Final Result Performing Organization Address City/[facility]/ZIP Co de Phone Number [facility] [address] [place] [address], [place] [phone] * TROPONIN, QUANT (05/24/2025 7:03 PM CDT) TROPONIN I HIGH SENSITIVITY 23 <54 ng/L 05/24/2025 9:10 PM CDT [facility] Comment: HIGH DOSES OF BIOTIN, TROPONIN-SPECIFIC AUTOANTIBODIES, AND ANTIBODY THERAPY CONTAINING HAMA MAY INTERFERE WITH THIS TEST RESULT. CORRELATION TO CLINICAL HISTORY AND PRESENTATION RECOMMENDED. 05/24/2025 7:03 PM CDT [facility] Final Result Performing Organization Address [facility] Co de Phone Number [facility] [address] [place] [address], [place] [phone] * MAGNESIUM (05/24/2025 7:03 PM CDT) Pathologist [facility] MAGNESIUM 2.0 1.8 - 2.4 MG/DL 05/24/2025 9:10 PM CDT [facility] 05/24/2025 7:03 PM CDT [facility] Final Result Performing Organization Address City/[facility]/ZIP Co de Phone Number [facility] [address] [place] [address], from Last 3 Months Insurance [facility] Care Teams Production Expert Relationship Specialty Start Date End Date Jamaal Ibarra DO [address] [place], [place] [id number] PCP - General INTERNAL MEDICINE 07/02/23
--- OUTSIDE RECORDS SUMMARY | 2025-07-23 13:15 | XMS_ITS | Encounter Summary ---
Author Organization [facility] Address [address] [place] [address] Phone Care Team Providers Care Jack Prizer Name Role Phone Jamaal Ibarra DO Primary Care Provider Encounter Details Date Type Department Care Team (Latest Contact Info) Description 10/14/2019 Orders Only [facility] Scanning, Provider Social History Tobacco Use Types Packs/Day Years Used Date Smoking Tobacco: Never Comments Unknown Sex and Gender Information Value Date Recorded Sex Assigned at Not on file Legal Sex Female 12:16 AM LEASING PROPERTY MANAGER Gender Identity Not on file [...] on filedocumented in this encounter Care Teams Jack Prizer Relationship Specialty Start Date End Date Jamaal Ibarra DO PCP - General 10/22/17 documented as of this encounter
--- OUTSIDE RECORDS SUMMARY | 2025-07-23 13:15 | XMS_ITS | Encounter Summary ---
Author Organization [facility] Address [address] [place] [address] Care Team Providers Care Legal Librarian Name Role Phone Jamaal Ibarra DO Primary Care Provider Encounter Details Date Type Department Care Team (Latest Contact Info) Description 03/23/2002 Outpatient Historical HIS [facility] [place] [place] [address] [place] [address] MENSTRUAL DISORDER NEC (Primary Dx) Social History Tobacco Use Types Packs/Day Years Used Date Smoking Tobacco: Never Assessed Comments Unknown Sex and Gender Information Value Date Recorded Sex Assigned at Not on file Legal Sex Female 3:50 AM HAND SILVERING SUPERVISOR Gender Identity Not on file Sexual [...] documented as of this encounter Care Teams Legal Librarian Relationship Specialty Start Date End Date Jamaal Ibarra DO [address] [place] [address] PCP - General Internal Medicine 07/11/18 documented as of this encounter
--- OUTSIDE RECORDS SUMMARY | 2025-07-23 13:15 | XMS_ITS | Clinical Summary ---
Author Organization [facility] Address [address] [place] [address] Care Team Providers Care Campus Recruiting Coordinator Name Role Phone Jamaal Ibarra DO [...] 09/06/2021 Assessment & Plan (09/06/2021 9:49 AM BUTTONER): -Fatigue is most likely multifactorial as she [...] 09/16/2017 Assessment & Plan (09/06/2021 9:45 AM BUTTONER): -Taking weekly Vitamin D -Will repeat Vitamin D level Type 1 diabetes mellitus with hyperglycemia 03/2017 Nocturia 06/12/2017 Gastroesophageal reflux disease 10/27/2014 Seronegative rheumatoid arthritis 10/27/2014 Swelling of hand 10/27/2014 Fibroid 10/21/2014 Fibromyalgia 06/09/2014 Hypertension 04/27/2014 Assessment & Plan (09/06/2021 9:45 AM BUTTONER): -BP today is 121/81 -Will continue same antihypertensive medications at this time. Hyperlipidemia 04/27/2014 Assessment & Plan (09/06/2021 9:45 AM BUTTONER): -Will continue statin as it is being [...] 01/22/2023 Assessment & Plan (09/06/2021 9:45 AM BUTTONER): -Currently taking MDI -A1C on 09/06/21 was [...] 06/12/201701/05 Assessment & Plan (09/06/2021 9:07 AM BUTTONER): -States she has been off of LT4 for 2 years -Will repeat TFT. Encounters Date Type Department Care Team Description 07/02/2025 11:15 AM CDT Procedure visit [facility] Medicine Ophthalmology 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, [address] [place] [address] Steven Edmonds MD Pre Cert (2024) 04/26/2025 Orders Only [facility] Endocrinology Metabolism and Lipid [address]th [place] [address] [place] [address] Tavia Fung RMA Type 1 diabetes mellitus with hyperglycemia (HCC) (Primary Dx) 04/26/2025 Telephone [facility] Endocrinology Metabolism and Lipid [address] [place] [address] [place] [address] Tavia Fung RMA Medication Change from Last [...] on file Legal Sex Female 12:16 AM BUTTONER Gender Identity Not on file Sexual Orientation [...] HEMOGLOBIN A1C Routine 10/23/2024 8 :29 AM BUTTONER Type 1 diabetes mellitus with hyperglycemia (HCC) [...] mg/0.07 mL Route: intravitreal, Site: Left Eye [facility]: [id number], Lot: [id number], Expiration date: 03/06/2026, Waste: 0 mL Medication [...] Sample used today b/c of insurance cost [id number] paperwork signed today, 07/02/25 Steven Edmonds MD [...] * POCT hemoglobin A1c (10/23/2024 8:29 AM BUTTONER) Hemoglobin A1C, POC 9.1 4.0 - 5.6 % Blood 10/23/2024 8:29 AM BUTTONER Evelin M. Steiniger FIELD MECHANICAL METER TESTER POINT OF CARE TEST ORDERA BLES Final [...] BLOOD ORDERABLES Final Result Performing Organization Address City/[facility]/ZIP Co de Phone Number [facility] Department [place] [address] * Albumin Creatinine Ratio, Urine (01/24/2024) Urine us Sarah Haskins MD LAB URINE ORDERABLES Final Resu lt EXTERNAL LAB * TSH (01/24/2024) Blood us Sarah Haskins MD LAB BLOOD ORDERABLES Final Resu lt Performing Organization Address City/[facility]/ZIP Co de Phone Number EXTERNAL LAB * Lipid panel (01/24/2024) Blood us Sarah Haskins MD LAB BLOOD ORDERABLES Final Resu lt Performing Organization Address [facility]/ZIP Co de Phone Number EXTERNAL LAB [...] nipple by physician COMPARISON: Outside exams from [place] 09/13/2022to 07/08/2019 TECHNIQUE: Full field digital mammographic [...] 5:08 PM CDT Performed at: 01 - [facility] [id number] Registered Public Surveyor: Likn Myles PhD, Phone: [phone] us Lorrie Saavedra MD LAB MICROBIOLOGY - GENERAL ORD ERABLES Final Result [facility] from Last 3 Months or Most Recently Relevant to Health Maintenance Insurance IDPA [facility] CHOICE PLUS WORKERS COMPENSATION GENERIC WORKERS COMPENSATION GENERIC Care Teams Campus Recruiting Coordinator Relationship Specialty Start Date End Date Jamaal Ibarra DO PCP - General 10/22/17
--- OUTSIDE RECORDS SUMMARY | 2025-07-23 13:15 | XMS_ITS | Clinical Summary ---
Author Organization [facility] Address [address] [place] [id number] Phone Care Team Providers Care Solar Sales Associate Name Role Phone JeanniesvetaJamaal jernigan Primary Care Provider [phone] Allergies Active Allergy Reactions Criticality Noted Date [...] 2 Active ergocalciferol (VITAMIN D2) 1.25 MG (29162 UT) capsule TAKE 1 CAPSULE BY MOUTH [...] Comments Blood Pressure 128/72 09/05/2022 8:31 AM ENGRAVER COPPERPLATE Pulse - - Temperature 36.5 C (97.7 F) 09/05/2022 8:31 AM ENGRAVER COPPERPLATE Respiratory Rate 18 09/05/2022 8:31 AM ENGRAVER COPPERPLATE Oxygen Saturation - - Inhaled Oxygen Concentration - - Weight 121 kg (267 lb) 09/05/2022 8:31 AM ENGRAVER COPPERPLATE Height 172.7 cm (5' 8) 09/05/2022 8:31 AM ENGRAVER COPPERPLATE Body Mass Index 40.6 09/05/2022 8:31 AM ENGRAVER COPPERPLATE Plan of Treatment Health Maintenance Due Date Last Done Comments Influenza Vaccine (#1) 2025 0, 07/30/2019, 07/16/2018, Additional history exists Insurance [facility] Care Teams Solar Sales Associate Relationship Specialty Start Date End Date Jamaal Ibarra DO [address] [place] [address] PCP - General Internal Medicine 05/07/22
[2025-07-23 13:29] LABS: Alanine Aminotransferase 34 U/L (6-35); Albumin Level 4.6 g/dL (3.5-5.1); Alkaline Phosphatase 175 U/L (38-126); Anion Gap 22 mmol/L (4-12); Aspartate Amino Transferase 45 U/L (14-36); Bilirubin,Total 1.1 mg/dL (0.2-1.3); Blood Urea Nitrogen 53 mg/dL (7-17); Calcium 11.3 mg/dL (8.4-10.2); Carbon Dioxide 13 mmol/L (22-30); Chloride 102 mmol/L (98-107); Estimated CRCL calculation 19 ml/min; Estimated Glomerular Filt Rate 10; Glucose 521 mg/dL (65-110); Lipase 123 U/L (23-300); Potassium 4.0 mmol/L (3.4-5.0); Sodium 137 mmol/L (137-145); Total Protein 8.5 g/dL (6.3-8.2)
[2025-07-23] MEDS: HYDROmorphone HCL INJ (*CRX) 1 MG/ML SYR IV PUSH (14:41)
[2025-07-23] MEDS: HALOPERIDOL LACTATE 5 MG/ML VIAL IV PUSH (14:41)
--- NOTE | 2025-07-23 15:25 | ED.NAVMDI ---
HPI - Nausea/Vomiting/Diarrhea General Chief complaint: Nausea/Vomiting/Diarrhea Stated complaint: Nausea/vomiting Time Seen by Provider: 07/23/25 12:05 History of Present Illness HPI Narrative: Patient is a 49-year-old female who presents ER with nausea vomiting. Ongoing over last 2 days. Recently seen in the ER with negative CT scan earlier yesterday. Has history of cyclic vomiting. No alleviating factors at home. Has been having trouble controlling her blood sugar as well. Has pain in her abdomen related to cramping will get some discomfort chest with vomiting but otherwise no other issues. She is not having diarrhea. Related Data Home Medications ?Medication ?Instructions ?Recorded ?Confirmed ?Last Taken ?Type docusate sodium 100 mg capsule 100 mg PO DAILY 11/02/19 07/23/25 02/08/25 History (Colace) sertraline 100 mg tablet (Zoloft) 100 mg PO DAILY 11/02/19 07/23/25 02/08/25 History zolpidem 10 mg tablet 10 mg PO QPM PRN Insomnia 11/02/19 07/23/25 02/08/25 History prazosin 2 mg capsule (Minipress) 2 mg PO HS 07/03/20 07/23/25 02/08/25 History coenzyme Q10 100 mg capsule (Co 100 mg PO DAILY 10/03/21 07/23/25 02/08/25 History Q-10) trazodone 50 mg tablet 50 mg PO HS 05/21/22 07/23/25 02/08/25 History Humalog KwikPen Insulin See Protocol subcut TIDWMEAL 03/22/23 07/23/25 02/08/25 History atorvastatin 10 mg tablet 20 mg PO QHS 04/02/23 07/23/25 02/08/25 History sumatriptan succinate 6 mg/0.5 mL 6 mg subcut ONCE PRN Migraine 08/01/23 07/23/25 01/19/25 History subcutaneous pen injector Headache alprazolam 0.5 mg tablet 0.5 mg PO TID 09/10/23 07/23/25 02/08/25 History blood-glucose sensor (FreeStyle #1 ea 05/13/24 07/23/25 Unknown History Sharita 3 Sensor device) glucagon 3 mg/actuation nasal 3 mg intranasal PRN PRN 05/13/24 07/23/25 01/19/25 History spray (Baqsimi) Hypoglycemia insulin glargine 100 unit/mL (3 38 unit subcut BID 05/13/24 07/23/25 02/08/25 History mL) subcutaneous pen (Lantus Solostar U-100 Insulin) pen needle, diabetic 32 gauge x #1,200 ea 05/13/24 07/23/25 Unknown History (BD Mer 2nd Gen Pen Needle) pioglitazone 15 mg tablet 15 mg PO DAILY 05/13/24 07/23/25 02/08/25 History prochlorperazine maleate 10 mg 20 mg PO Q4-6H PRN Nausea 06/02/24 07/23/25 01/19/25 History tablet zinc citrate 11 mg chewable tablet 11 mg PO DAILY 08/20/24 07/23/25 02/08/25 History cholecalciferol (vitamin D3) 125 5,000 unit PO DAILY 07/19/25 07/23/25 Unknown History mcg (5,000 unit) tablet Allergies Allergy/AdvReac Type Severity Reaction Status Date / Time latex Allergy Severe itching Verified 07/23/25 18:46 metoclopramide Allergy Severe Redness of Verified 07/23/25 18:46 Skin Review of Systems Review of Systems: All systems reviewed & are unremarkable except as noted in HPI and below Constitutional: Constitutional: Reports no additional constitutional complaints ENT: Reports system reviewed and no additional complaints, except as documented Cardiovascular: Cardiovascular: Reports no additional cardiovascular complaints Respiratory: Respiratory: Reports no additional respiratory complaints Gastrointestinal: Gastrointestinal: Reports no additional gastrointestinal complaints [facility] Past Medical History Medical History History of diabetic ketoacidosis CKD (chronic kidney disease) PTSD (post-traumatic stress disorder) Generalized anxiety disorder Acute electrocardiogram changes Abnormal chest x-ray Nonalcoholic steatohepatitis Nephrotic syndrome Chronic lumbar pain Morbid obesity due to excess calories Migraine headache without aura 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 Gastroparesis Irritable bowel syndrome with constipation Cyclic vomiting syndrome Insulin dependent diabetes mellitus Hyperlipidemia Hypertension Gastroesophageal reflux disease Vitamin B 12 deficiency Anxiety Depression Hypothyroidism Fibromyalgia Rheumatoid arthritis Endometriosis Herpes Uterine fibroid Peptic ulcer Bronchitis Surgical History Surgical History History of colonoscopy April 2021 History of esophagogastroduodenoscopy (EGD) approx 2018 History of cholecystectomy History of detached retina repair History of partial knee replacement History of hysterectomy History of laparoscopy Removal of uterine fibroids Family History Family History Mother Diabetes mellitus Hypertension Family history of elevated blood lipids Sibling Family history of obesity Patient's sister is in good health Father Hypertension Family history of cardiovascular disease Other Acute myocardial infarction Family history of arthritis Family history of heart disease in male family member before age 55 Family history of thyroid disease Social History Social History Social History: Lives alone in [place]. with no children. No alcohol, tobacco, illicit substance abuse. Surrogate decision maker: Susan Mariano, . Code status: Full code. 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 HEAD: Normocephalic, atraumatic. ENT: Mucous membranes moist. NECK: Supple. CHEST: Clear to auscultation. No respiratory distress. HEART: Tachycardic and regular. Normal peripheral pulses. ABDOMEN: Soft, nontender, nondistended. EXTREMITIES: Normal range of motion. No edema. SKIN: Warm, dry, no rash. NEURO: Alert and oriented x3. PSYCH: Normal mood and affect. Course Course Emergency Course: Blood sugar in the 500s but has come back down to 400 after IV fluid. Will also give IV insulin. Admit to hospitalist service. Placed in IMU. Continued IV hydration for LUKE. Patient reports some chest discomfort related to vomiting when vomiting. She had no discomfort. She received Haldol for her vomiting. Vital Signs Vital signs: Vital Signs Temperature 97.2 F L 07/23/25 11:33 Pulse Rate 113 H 07/23/25 11:33 Respiratory Rate 16 07/23/25 11:33 Blood Pressure 188/125 H 07/23/25 11:33 Pulse Oximetry 96 07/23/25 11:33 Temperature 98.2 F 07/23/25 19:35 Pulse Rate 95 07/23/25 19:35 Respiratory Rate 20 07/23/25 19:35 Blood Pressure 177/84 H 07/23/25 19:35 Pulse Oximetry 96 07/23/25 19:35 Oxygen Delivery Nasal Cannula 07/23/25 15:07 Oxygen Flow Rate 3 07/23/25 15:07 MDM - Nausea/Vomiting/Diarrhea Lab Data 07/23/25 12:48 07/23/25 12:48 Labs: Lab Results 07/23/25 07/23/25 07/23/25 Range/Units 11:33 12:32 12:48 WBC 20.7 H (4.5-10.0) K/mm3 RBC 4.87 (4.2-5.4) M/mm3 Hgb 13.8 (12.0-15.0) g/dL Hct 42.3 (37.0-47.0) % MCV 86.9 (80-100) fl MCH 28.3 (26-34) pg MCHC 32.6 (32-36) g/dl RDW 13.2 (11.5-14.5) % Plt Count 239 D (150-375) k/mm3 MPV 10.4 (7.4-10.4) fl Immature Gran % (Auto) 0.8 H (0-0.5) % Neut % (Auto) 91.1 H (45.5-73.1) % Lymph % (Auto) 4.2 L (18.3-44.2) % Sandoval % (Auto) 3.7 (2.6-8.5) % Eos % (Auto) 0.0 (0-4.4) % Baso % (Auto) 0.2 (0.2-1.2) % Lymph # (Auto) 0.86 L (0.9-3.2) K/mm3 Sandoval # (Auto) 0.8 H (0.1-0.6) K/mm3 Eos # (Auto) 0.0 (0-0.3) K/mm3 Baso # (Auto) 0.0 (0.0-0.1) K/mm3 Abs Immat Gran (auto) 0.16 H (0.00-0.031) K/mm3 Absolute Neuts (auto) 18.8 H (1.3-6.7) K/mm3 Absolute Nucleated RBC 0.000 (0.0-0.012) K/mm3 Nucleated RBC % 0.0 (0.0-0.2) % Methemoglobin 0.2 (0-1.5) %THb Sodium 137 (137-145) mmol/L Potassium 4.0 (3.4-5.0) mmol/L Chloride 102 (98-107) mmol/L Carbon Dioxide 13 L (22-30) mmol/L Anion Gap 22 H (4-12) mmol/L BUN 53 H (7-17) mg/dL Creatinine 4.48 H (0.7-1.0) mg/dL Estim Creat Clear Calc 19 ml/min Estimated GFR 10 L (59 - ) Glucose 521 H* (65-110) mg/dL POC Capillary Glucose 473 H (65-105) mg/dl Lactic Acid 3.1 H (0.7-2.0) mmol/L Calcium 11.3 H (8.4-10.2) mg/dL Total Bilirubin 1.1 (0.2-1.3) mg/dL AST 45 H (14-36) U/L ALT 34 (6-35) U/L Alkaline Phosphatase 175 H (38-126) U/L Total Protein 8.5 H (6.3-8.2) g/dL Albumin 4.6 (3.5-5.1) g/dL Lipase 123 (23-300) U/L 07/23/25 Range/Units 16:26 WBC (4.5-10.0) K/mm3 RBC (4.2-5.4) M/mm3 Hgb (12.0-15.0) g/dL Hct (37.0-47.0) % MCV (80-100) fl MCH (26-34) pg MCHC (32-36) g/dl RDW (11.5-14.5) % Plt Count (150-375) k/mm3 MPV (7.4-10.4) fl Immature Gran % (Auto) (0-0.5) % Neut % (Auto) (45.5-73.1) % Lymph % (Auto) (18.3-44.2) % Sandoval % (Auto) (2.6-8.5) % Eos % (Auto) (0-4.4) % Baso % (Auto) (0.2-1.2) % Lymph # (Auto) (0.9-3.2) K/mm3 Sandoval # (Auto) (0.1-0.6) K/mm3 Eos # (Auto) (0-0.3) K/mm3 Baso # (Auto) (0.0-0.1) K/mm3 Abs Immat Gran (auto) (0.00-0.031) K/mm3 Absolute Neuts (auto) (1.3-6.7) K/mm3 Absolute Nucleated RBC (0.0-0.012) K/mm3 Nucleated RBC % (0.0-0.2) % Methemoglobin (0-1.5) %THb Sodium (137-145) mmol/L Potassium (3.4-5.0) mmol/L Chloride (98-107) mmol/L Carbon Dioxide (22-30) mmol/L Anion Gap (4-12) mmol/L BUN (7-17) mg/dL Creatinine (0.7-1.0) mg/dL Estim Creat Clear Calc ml/min Estimated GFR (59 - ) Glucose (65-110) mg/dL POC Capillary Glucose 409 H (65-105) mg/dl Lactic Acid (0.7-2.0) mmol/L Calcium (8.4-10.2) mg/dL Total Bilirubin (0.2-1.3) mg/dL AST (14-36) U/L ALT (6-35) U/L Alkaline Phosphatase (38-126) U/L Total Protein (6.3-8.2) g/dL Albumin (3.5-5.1) g/dL Lipase (23-300) U/L ABG Data ABG results: 07/23/25 12:32 ABG pH 7.552 H* ABG pCO2 16.4 L* ABG pO2 105.6 H ABG PO2/FiO2 Ratio 5.03 ABG HCO3 14.1 L ABG O2 Saturation 98.5 ABG O2 Content 20.0 ABG Base Excess -5.1 A-a Gradient 24.5 Oxyhemoglobin 97.7 Carboxyhemoglobin 0.7 Reduced Hemoglobin 1.4 Total Hemoglobin 14.5 FiO2 21 Imaging Data Radiologist's impression: ITS Impressions Abdomen/Pelvis CT 07/23/25 15:34 IMPRESSION: Focal circumferential thickening of the rectal wall can be followed evaluated with colonoscopy. Ill-defined irregular area of low attenuation in the left hepatic lobe is unchanged. All CT scans at this facility are performed using low dose modulation techniques as appropriate to perform exam including the following: automated exposure control; use of iterative reconstruction technique; adjustment of the mA and/or kV according to patient size (this includes techniques or standardized protocols for targeted exams where dose is matched to indication/reason for exam). Critical Care Time Critical Care Time Critical Care Time: Yes Total Critical Care Time: 35 Discharge Plan Discharge Clinical Impression: Cyclical vomiting, LUKE (acute kidney injury), Hyperglycemia Patient Disposition: Still a Patient Condition: Stable
--- NOTE | 2025-07-23 16:21 | P.HP_ITS ---
H&P: HPI History of Present Illness Date/Time: 07/23/25 16:21 Chief Complaint: Cyclical vomiting Narrative: 49-year-old female with past medical history of history of diabetes, CKD, anxiety, cyclical vomiting, hypertension hyperlipidemia and rheumatoid arthritis presents with cyclical vomiting. Patient states this is are normal cyclical vomiting she has no clue what brings it on. She denies cannabis use. She states that she usually takes Dilaudid, Haldol and Zofran to treat it. Denies fevers chills or shortness of breath. Lab work shows leukocytosis at 20.7, ABG of 7.55, pCO2 of 16, PO2 of 106, bicarb of 14, carbon dioxide 13, anion gap 22, BUN 53, creatinine 4.48 with baseline being 2.77, GFR 10, glucose 521, lactic acid 3.1, calcium 11.3 AST 45 alkaline phos 75, CT abdomen pelvis showing Focal circumferential thickening of the rectal wall can be followed evaluated with colonoscopy. Patient got 3 L IV fluids in the emergency room followed by 125, Review of Systems Review of Systems: 12 systems were reviewed and are negativ e except for as per HPI. 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 Gastroparesis Irritable bowel syndrome with constipation Cyclic vomiting syndrome Insulin dependent diabetes mellitus Hyperlipidemia Hypertension Gastroesophageal reflux disease Vitamin B 12 deficiency Anxiety Depression Hypothyroidism Fibromyalgia Rheumatoid arthritis Endometriosis Herpes Uterine fibroid Peptic ulcer Bronchitis Surgical History Surgical History History of colonoscopy April 2021 History of esophagogastroduodenoscopy (EGD) approx 2018 History of cholecystectomy History of detached retina repair History of partial knee replacement History of hysterectomy History of laparoscopy Removal of uterine fibroids Family History Family History Mother Diabetes mellitus Hypertension Family history of elevated blood lipids Sibling Family history of obesity Patient's sister is in good health Father Hypertension Family history of cardiovascular disease Other Acute myocardial infarction Family history of arthritis Family history of heart disease in male family member before age 55 Family history of thyroid disease Social History Social History Social History: Lives alone in [place]. with no children. No alcohol, tobacco, illicit substance abuse. Surrogate decision maker: Susan Mariano, sister. Code status: Full code. 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 Gender identity (if verbalized by the patient): Female Spiritual care concerns: No Meds Home Medications and Allergies Home Medications ?Medication ?Instructions ?Recorded ?Confirmed ?Type docusate sodium 100 mg capsule 100 mg PO DAILY 0 07/23/25 History (Colace) sertraline 100 mg tablet (Zoloft) 100 mg PO DAILY 10/0807/23/25 History zolpidem 10 mg tablet 10 mg PO QPM PRN Insomnia 07/23/25 History prazosin 2 mg capsule (Minipress) 2 mg PO HS 07/03/20 07/23/25 History coenzyme Q10 100 mg capsule (Co 100 mg PO DAILY 07/23/25 History Q-10) trazodone 50 mg tablet 50 mg PO HS 05/21/22 5 History Humalog KwikPen Insulin See Protocol subcut TIDWMEAL 03/22/23 07/23/25 History atorvastatin 10 mg tablet 20 mg PO QHS 04/02/23 History sumatriptan succinate 6 mg/0.5 mL 6 mg subcut ONCE PRN Migraine 08/01/23 07/23/25 History subcutaneous pen injector Headache alprazolam 0.5 mg tablet 0.5 mg PO TID 09/10/2307/23 History blood-glucose sensor (FreeStyle #1 ea 05/13/24 5 History Sharita 3 Sensor device) glucagon 3 mg/actuation nasal 3 mg intranasal PRN PRN 05/13/24 07/23/25 History spray (Baqsimi) Hypoglycemia insulin glargine 100 unit/mL (3 38 unit subcut BID 04/2907/23/25 History mL) subcutaneous pen (Lantus Solostar U-100 Insulin) pen needle, diabetic 32 gauge x #1,200 ea 05/13/24 History /32 (BD Mer 2nd Gen Pen Needle) pioglitazone 15 mg tablet 15 mg PO DAILY 05/13/2407/07 History prochlorperazine maleate 10 mg 20 mg PO Q4-6H PRN Naus ea 06/02/24 07/23/25 History tablet bumetanide 1 mg tablet 1 mg PO BID #60 tabs 4 07/23/25 Rx spironolactone 25 mg tablet 25 mg PO DAILY #30 tabs 07/23/25 Rx acyclovir 400 mg tablet 400 mg PO BID #180 tabs 08/0707/23/25 Rx zinc citrate 11 mg chewable tablet 11 mg PO DAILY 08/0707/23/25 History amitriptyline 25 mg tablet 50 mg (2 x 25 mg) PO HS #18 0 tabs 11/18/24 07/23/25 Rx amlodipine 5 mg tablet See Rx Instructions .Route 0 01/04/25 07/23/25 Rx .COMPLEX #90 tabs sucralfate 1 gram tablet 1 g PO .qid with meals #120 tabs 02/16/25 07/23/25 Rx ondansetron 4 mg disintegrating 4 mg PO Q8H PRN nausea and 03/09/25 07/23/25 Rx tablet vomiting #7 tabs plecanatide 3 mg tablet (Trulance) 3 mg PO DAILY 1 sat #30 tabs 03/10/25 07/23/25 Rx carvedilol 6.25 mg tablet 6.25 mg PO Q12H #60 tabs 07/23/25 Rx chlorthalidone 25 mg tablet 25 mg PO DAILY #30 tabs 07/23/25 Rx tenapanor 50 mg tablet (Ibsrela) 50 mg PO BID 1 month #60 tabs 03/26/25 07/23/25 Rx bisacodyl 10 mg rectal suppository 10 mg RECTAL TID [place] N constipation 05/23/25 07/23/25 Rx (Dulcolax (bisacodyl)) #12 ea lactulose 10 gram oral packet 10 g PO BID #30 ea 05/2407/23/25 Rx pantoprazole 40 mg tablet,delayed 40 mg PO DAILY PRN N ausea #90 tabs 06/24/25 07/23/25 Rx release dicyclomine 10 mg capsule 10 mg PO BID PRN abdominal p ain 10 07/12/25 07/23/25 Rx days #20 caps cholecalciferol (vitamin D3) 125 5,000 unit PO DAILY 1 07/23/25 History mcg (5,000 unit) tablet clotrimazole-betamethasone 1 1 applic topical BID #15 grams 07/19/25 07/23/25 Rx %-0.05 % topical cream topiramate 25 mg sprinkle capsule 50 mg (2 x 25 mg) PO BID #360 caps 07/22/25 07/23/25 Rx (Topamax) Allergies Allergy/AdvReac Type Severity Reaction Status Date / Time latex Allergy Severe itching Verified 07/23/25 18:46 metoclopramide Allergy Severe Redness of Verified 07/23/25 18:46 Skin Vital Signs Vital Signs - 24 hr 07/23/25 11:33 07/23/25 12:31 07/23/25 15:07 Temperature 97.2 F L 97.8 F Pulse Rate 113 H 110 H Respiratory Rate 16 22 H Blood Pressure 188/125 H 176/118 H Pulse Oximetry 96 95 94 Oxygen Delivery Room Air Nasal Cannula Oxygen Flow Rate 3 Exam Narrative: General: well appearing, appears stated age. HEENT: normocephalic, atraumatic. Mucous membranes moist. EOMI, PERRLA, bilateral sclera anicteric, no conjunctival injection. Neck supple without JVD, lymphadenopathy, or bruit. Respiratory: clear to ascultation bilaterally. No rales/rhonic/wheezes. Cardiovascular: Regular rate and rhythm, normal S1-S2 upon ascultation. No murmurs, rubs, or clicks. PMI is nondisplaced, capillary refill less than 3 second. Abdomen: Obese Soft, round, no pulsatile masses, nondistended and nontender. No rebound, no guarding. No CVA tenderness, no hepatosplenomegaly. Bowel sounds present to all four quadrants. No high pitch or tinkling sounds, resonant to percussion. Extremities: No cyanosis, clubbing, or edema present. Pulses are palpable 2/2. Active ROM to all four extremities. Neuro: Alert and orientated x 4. PERRLA. Cranial nerves 2-12 intact without focal deficit. Skin: Warm, dry, and intact, without rash, erythema, or lesion. Psych: pleasant, cooperative, normal speech, normal affect, no hallucinations, no dysarthia H&P: Results Labs Labs: Short CBC 07/23/25 Range/Units 12:48 WBC 20.7 H (4.5-10.0) K/mm3 Hgb 13.8 (12.0-15.0) g/dL Hct 42.3 (37.0-47.0) % Plt Count 239 D (150-375) k/mm3 BMP 07/23/25 12:48 Sodium 137 Potassium 4.0 Chloride 102 Carbon Dioxide 13 L BUN 53 H Creatinine 4.48 H Glucose 521 H* Calcium 11.3 H Liver Function 07/23/25 Range/Units 12:48 Total Bilirubin 1.1 (0.2-1.3) mg/dL AST 45 H (14-36) U/L ALT 34 (6-35) U/L Alkaline Phosphatase 175 H (38-126) U/L Albumin 4.6 (3.5-5.1) g/dL Assessment and Plan Assessment and plan (1) LUKE (acute kidney injury): Code(s): N17.9 - Acute kidney failure, unspecified Status: Acute Assessment and Plan: Likely from dehydration from vomiting Aggressive fluid hydration BMP in the morning If creatinine does not improve consider Nephrology consult (2) Cyclic vomiting syndrome: Code(s): R11.15 - Cyclical vomiting syndrome unrelated to migraine Status: Acute Assessment and Plan: Discontinue Haldol, Zofran or other QT prolonging medications Tigan, Valium Carafate and Protonix (3) Anxiety and depression: Code(s): F41.9 - Anxiety disorder, unspecified; F32.9 - Major depressive disorder, single episode, unspecified Status: Acute Assessment and Plan: Continue Xanax (4) HTN (hypertension): Qualifiers: Hypertension type: unspecified Qualified Code(s): I10 - Essential (primary) hypertension Code(s): I10 - Essential (primary) hypertension Status: Chronic Assessment and Plan: Holding antihypertensive medications due to acute dehydration (5) Diabetes mellitus: Code(s): E11.9 - Type 2 diabetes mellitus without complications Status: Chronic Assessment and Plan: Clear liquid diet Accu-Cheks a.c. HS SSI and Lantus (6) CHF (congestive heart failure): Code(s): I50.9 - Heart failure, unspecified Status: Acute Assessment and Plan: Hold spironolactone Continue Bumex (7) Prolonged QT interval: Code(s): R94.31 - Abnormal electrocardiogram [ECG] [EKG] Status: Acute Assessment and Plan: QTC 599 Avoid QTC prolonging medications Repeat EKG in the morning Quality VTE Prophylaxis VTE prophylaxis: mechanical ordered and pharmacologic ordered Hospitalist MIPS Advance Care Plan I have confirmed that the patient's Advanced Care Plan is present, code status is documented, or surrogate decision maker is listed in patient medical record.: Yes Medication Reconciliation I have utilized all available resources to obtain, update and review the patients current medications (includes all prescriptions, OTC, herbals, cannabis, and nutritional supplements).: Yes
--- NOTE | 2025-07-23 16:41 | ECG_ITS ---
Test Date: 2025-07-23 17:01:21 Measurements Intervals [place] Rate: 101 P: 219 CO: 138 QRS: -80 QRSD: 164 T: 71 QT: 460 QTc: 599 Interpretive Statements SINUS TACHYCARDIA WITH FIRST DEGREE AV BLOCK RIGHT BUNDLE BRANCH BLOCK LEFT ANTERIOR FASCICULAR BLOCK LEFT VENTRICULAR HYPERTROPHY AND ST-T CHANGE ABNORMAL ECG Compared to ECG 05/23/2025 15:13:56 HEART RATE HAS INCREASED Electronically Signed On 07-23-2025 19:30:53 CDT by Betito Huber D.O.
[2025-07-23] MEDS: INSULIN HUMAN REGULAR (*BKC) 100 UNITS/ML 10 UNITS IV PUSH (16:53)
[2025-07-23] MEDS: LACTATED RINGERS 1,000 ML 125 ML IV CONT (16:54)
--- NOTE | 2025-07-23 17:12 | PC.NURSE ---
Unable to obtain lactic acid due to pt being difficult stick, phlebotomy called and notified
--- NOTE | 2025-07-23 18:30 | ADMGEN ---
This patient, Jennifer Londono, was admitted to IMU Room 209-01. Patient/family oriented to hospital policies and general routines including ID bracelet, bed and alarms, visiting hours, pain management, procedures, bathroom and other care routines, personal items, smoking policy, room service/diet, and visiting hours. Information on how to activate the Rapid Response Team has been discussed. Patient/Family are encouraged to report perceived risks to care and to ask questions if they do not understand what they are told or what they should do.
[2025-07-23] MEDS: INSULIN GLARGINE (*BKC) 100 UNITS/ML 35 UNITS SUB-Q (19:07)
[2025-07-23] MEDS: INSULIN ASPART (*BKC) 100 UNITS/ML SUB-Q ×2 (19:08→21:21)
[2025-07-23] MEDS: PRAZOSIN HCL 1 MG CAPSULE 2 MG PO (21:13)
[2025-07-23] MEDS: ATORVASTATIN 10 MG TABLET 20 MG PO (21:13)
[2025-07-23] MEDS: SUCRALFATE 1 GM TABLET PO (21:14)
[2025-07-23] MEDS: ALPRAZolam (*CRX) 0.5 MG TABLET PO (22:51)
[2025-07-23] MEDS: AMITRIPTYLINE HCL 25 MG TABLET 50 MG PO (22:51)
[2025-07-23] MEDS: ZOLPIDEM TARTRATE (*CRX) 5 MG TABLET 10 MG PO (22:51)
[2025-07-24] VITALS (15 sets, daily range): BP systolic 144–180; BP diastolic 66–91; PULSE 79–102; RESP 16–20; TEMP 36.7–37.1; O2SAT 92–100
[2025-07-24] MEDS: LACTATED RINGERS 1,000 ML 125 ML IV CONT ×3 (01:05→21:55)
[2025-07-24 04:55] LABS: Hematocrit 34.3 % (37.0-47.0); Hemoglobin 11.1 g/dL (12.0-15.0); Immature Granulocyte Percent A 0.7 % (0-0.5); Lymphocytes Absolute Auto 1.69 K/mm3 (0.9-3.2); Mean Corpuscular HGB Conc 32.4 g/dl (32-36); Mean Corpuscular Hemoglobin 28.9 pg (26-34); Mean Corpuscular Volume 89.3 fl (80-100); Nucleated Red Blood Cells Absolute Auto 0.000 K/mm3 (0.0-0.012); Nucleated Red Blood Cells Perc 0.0 % (0.0-0.2); Platelet Count Result 193 k/mm3 (150-375); Red Blood Count 3.84 M/mm3 (4.2-5.4); White Blood Count 17.7 K/mm3 (4.5-10.0)
[2025-07-24 05:19] LABS: Anion Gap 11 mmol/L (4-12); Blood Urea Nitrogen 47 mg/dL (7-17); Calcium 10.0 mg/dL (8.4-10.2); Carbon Dioxide 21 mmol/L (22-30); Chloride 106 mmol/L (98-107); Estimated CRCL calculation 25 ml/min; Estimated Glomerular Filt Rate 14; Glucose 212 mg/dL (65-110); Potassium 3.4 mmol/L (3.4-5.0); Sodium 138 mmol/L (137-145)
[2025-07-24] MEDS: SUCRALFATE 1 GM TABLET PO (06:16)
--- NOTE | 2025-07-24 08:52 | P.PNIM_ITS ---
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 Tigan, Valium, Protonix (3) Anxiety and depression: Code(s): F41.9 - Anxiety disorder, unspecified; F32.9 - Major depressive disorder, single episode, unspecified Status: Acute Assessment and Plan: Continue Xanax, Zoloft (4) HTN (hypertension): Qualifiers: Hypertension type: unspecified Qualified Code(s): I10 - Essential (primary) hypertension Code(s): I10 - Essential (primary) hypertension Status: Chronic Assessment and Plan: Holding antihypertensive medications due to acute dehydration 07/24/2025 Held chlorthalidone and bumetanide (5) Diabetes mellitus: Code(s): E11.9 - Type 2 diabetes mellitus without complications Status: Chronic Assessment and Plan: Clear liquid diet Accu-Berenice a.cFrancisco HS SSI and Lantus 07/24 FBS 187, improving (6) CHF (congestive heart failure): Code(s): I50.9 - Heart failure, unspecified Status: Acute Assessment and Plan: Hold spironolactone 07/24 Hold bumetanide and chlorthalidone while hydrating (7) Prolonged QT interval: Code(s): R94.31 - Abnormal electrocardiogram [ECG] [EKG] Status: Acute Assessment and Plan: QTC 599 Avoid QTC prolonging medications 07/24 Repeat EKG (8) Irritable bowel syndrome with constipation: Code(s): K58.1 - Irritable bowel syndrome with constipation Status: Acute (9) Rheumatoid arthritis: Qualifiers: Rheumatoid arthritis location: unspecified site Rheumatoid factor presence: unspecified presence Qualified Code(s): M06.9 - Rheumatoid arthritis, unspecified Code(s): M06.9 - Rheumatoid arthritis, unspecified Status: Acute (10) Stage 4 chronic kidney disease: Code(s): N18.4 - Chronic kidney disease, stage 4 (severe) Status: Acute (11) Leukocytosis: Code(s): D72.829 - Elevated white blood cell count, unspecified Status: Acute Assessment and Plan: 07/24/2025 Likely demargination due to acute stress, no obvious infection Subjective Date/time seen: 07/24/25 08:52 Interval history: 49-year-old female with history of cyclic vomiting syndrome was admitted for recurrence of continuous vomiting and worsened renal function. Was also noted to have a prolonged QT interval at 599. Still feeling nauseated today, but no emesis. Had 3 large bowel movements in last 24 hours. Remains unable to eat. That I would chest pain or shortness of breath abdominal pain urinary complaints or abnormal bleeding. Was constipated prior to bowel movements. Review of Systems Review of Systems: All systems reviewed & are unremarkable except as noted in HPI and below Exam Narrative: HEENT: PERRL, sclerae nonicteric, pharyngeal mucosa pink and intact NECK: No JVD, adenopathy, or thyromegaly CHEST: Clear to auscultation. Normal effort HEART: NL S1/S2, regular, ABNL systolic sound LUSB w/o radiation ABDOMEN: BS+, soft, nontender, no mass, no bruits EXTREMITIES: No cyanosis, edema, or clubbing NEUROLOGIC: CN intact and symmetric to inspection MUSCULOSKELETAL: Tone and strength symmetric PSYCH: Alert. Oriented to person, place, and time Objective Data Vital Signs Vital Signs: Vital Signs - 24 hr 07/23/25 11:33 07/23/25 12:31 07/23/25 15:07 Temperature 97.2 F L 97.8 F Pulse Rate 113 H 110 H Respiratory Rate 16 22 H Blood Pressure 188/125 H 176/118 H Pulse Oximetry 96 95 94 Oxygen Delivery Room Air Nasal Cannula Oxygen Flow Rate 3 07/23/25 15:46 07/23/25 16:16 07/23/25 16:46 Temperature Pulse Rate 100 100 100 Respiratory Rate 15 15 15 Blood Pressure 137/77 158/78 H 159/82 H Pulse Oximetry 96 96 95 Oxygen Delivery Oxygen Flow Rate 07/23/25 16:55 07/23/25 17:36 07/23/25 19:35 Temperature 98.2 F Pulse Rate 101 H 102 H 95 Respiratory Rate 15 20 20 Blood Pressure 159/82 H 145/89 H 177/84 H Pulse Oximetry 95 94 96 Oxygen Delivery Oxygen Flow Rate 07/23/25 20:00 07/23/25 21:14 07/23/25 22:00 Temperature Pulse Rate 99 97 93 Respiratory Rate Blood Pressure Pulse Oximetry Oxygen Delivery Oxygen Flow Rate 07/23/25 23:15 07/23/25 23:44 07/24/25 00:00 Temperature 98.4 F Pulse Rate 97 95 Respiratory Rate 20 Blood Pressure 142/76 H Pulse Oximetry 92 Oxygen Delivery Room Air Oxygen Flow Rate 07/24/25 02:00 07/24/25 03:43 07/24/25 03:58 Temperature 98.6 F Pulse Rate 88 92 Respiratory Rate 20 Blood Pressure 144/76 H Pulse Oximetry 95 Oxygen Delivery Room Air Oxygen Flow Rate 07/24/25 04:00 07/24/25 06:00 07/24/25 08:00 Temperature 98.8 F Pulse Rate 91 85 88 Respiratory Rate 16 Blood Pressure 151/71 H Pulse Oximetry 92 Oxygen Delivery Oxygen Flow Rate Intake/Output Intake/Output: Intake & Output 07/21/25 07/22/25 07/23/25 07/24/25 23:59 23:59 23:59 23:59 Intake Total 3000 1800 Output Total 400 400 Balance 2600 1400 Meds/Results Medications: Active Medications Generic Name Dose Route Start Last Admin Trade Name Freq PRN Reason Stop Dose Admin Acetaminophen 650 mg 07/23/25 16:28 Acetaminophen 325 Mg Tablet PO Q4H PRN Mild Pain (1-3) or Fever Hydrocodone Bitart/Acetaminophen 1 tab 07/23/25 16:28 Hydrocodone/Acetaminophen (*Crx) 5-325 Mg Tablet PO Q4H PRN Pain Rated 4-6 Acyclovir 400 mg 07/24/25 09:00 Acyclovir 400 Mg Tablet PO BID SANTHOSH Alprazolam 0.5 mg 07/24/25 09:00 Alprazolam (*Crx) 0.5 Mg Tablet PO TID SANTHOSH Amitriptyline HCl 50 mg 07/23/25 21:00 07/23/25 22:51 Amitriptyline Hcl 25 Mg Tablet PO 50 mg HS SANTHOSH Administration Atorvastatin Calcium 20 mg 07/23/25 21:00 07/23/25 21:13 Atorvastatin 10 Mg Tablet PO 20 mg QHS SANTHOSH Administration Bumetanide 1 mg 07/24/25 09:00 Bumetanide 1 Mg Tablet PO BID SANTHOSH Carvedilol 6.25 mg 07/23/25 21:00 07/23/25 21:14 Carvedilol 6.25 Mg Tablet PO 6.25 mg Q12HR SANTHOSH Administration Dextrose 12.5 gm 07/23/25 16:45 Dextrose 50% 25 Gm/50 Ml Syringe IV PUSH PRN PRN Hypoglycemia Protocol Diazepam 5 mg 07/23/25 21:24 Diazepam Inj (*Crx) 10 Mg/2 Ml Syringe IV PUSH Q6HR PRN Vomiting Docusate Sodium 100 mg 07/23/25 16:45 Docusate Sodium 100 Mg Capsule PO BID PRN Constipation Glucagon 1 mg 07/23/25 16:45 Glucagon For Inj 1 Mg Vial IM PRN PRN Hypoglycemia Protocol Glucose 15 gm 07/23/25 16:45 Glucose Oral Gel 15 Gm Of Glucse In 37.5 Gm Tube PO PRN PRN Hypoglycemia Protocol Hydromorphone HCl 0.5 mg 07/23/25 16:28 Hydromorphone Hcl Inj (*Crx) 1 Mg/Ml Syr IV PUSH Q4H PRN Pain Rated 7-10 Lactated Ringer's 1,000 mls @ 125 mls/hr 07/23/25 16:30 07/24/25 01:05 Lr - Lactated Ringers Iv IV CONT 125 mls/hr .Q8H SANTHOSH Administration Dextrose 1,000 mls @ 100 mls/hr 07/23/25 16:45 Dextrose 5% 1,000 Ml IVPB PRN PRN Hypoglycemia Protocol Insulin Aspart 4 - 8 units 07/23/25 17:00 07/23/25 19:08 Insulin Aspart (*Bkc) 100 Units/Ml SUB-Q 5 units TIDWM SANTHOSH Administration Protocol Insulin Aspart 2 - 4 units 07/23/25 21:00 07/23/25 21:21 Insulin Aspart (*Bkc) 100 Units/Ml SUB-Q 2 units HS SANTHOSH Administration Protocol Insulin Glargine 35 units 07/23/25 17:00 07/23/25 19:07 Insulin Glargine (*Bkc) 100 Units/Ml 0.3 units/kg (35 units) 35 units SUB-Q Administration BID SANTHOSH Lactulose 10 gm 07/24/25 09:00 Lactulose 20 Gm/30 Ml Udc PO BID SANTHOSH Pantoprazole Sodium 40 mg 07/24/25 09:00 Pantoprazole 40 Mg Tablet PO Q12HR SANTHOSH Pioglitazone HCl 15 mg 07/24/25 09:00 Pioglitazone Hcl 15 Mg Tab PO DAILY SANTHOSH Prazosin HCl 2 mg 07/23/25 21:00 07/23/25 21:13 Prazosin Hcl 1 Mg Capsule PO 2 mg HS SANTHOSH Administration Sertraline HCl 100 mg 07/24/25 09:00 Sertraline Hcl 50 Mg Tablet PO DAILY SANTHOSH Sucralfate 1 gm 07/23/25 21:00 07/24/25 06:16 Sucralfate 1 Gm Tablet PO 1 gm ACHS SANTHOSH Administration Trimethobenzamide HCl 200 mg 07/23/25 21:23 Trimethobenzamide Hcl 200 Mg/2 Ml Vial IM Q6H PRN Nausea And Vomiting Zolpidem Tartrate 10 mg 07/23/25 20:12 07/23/25 22:51 Zolpidem Tartrate (*Crx) 5 Mg Tablet PO 10 mg HS PRN Administration Insomnia Radiology Results: ITS Impressions Abdomen/Pelvis CT 07/23/25 15:34 IMPRESSION: Focal circumferential thickening of the rectal wall can be followed evaluated with colonoscopy. Ill-defined irregular area of low attenuation in the left hepatic lobe is unchanged. All CT scans at this facility are performed using low dose modulation techniques as appropriate to perform exam including the following: automated exposure control; use of iterative reconstruction technique; adjustment of the mA and/or kV according to patient size (this includes techniques or standardized protocols for targeted exams where dose is matched to indication/reason for exam). Labs Labs: Laboratory Results - last 24 hr 07/23/25 07/23/25 07/23/25 11:33 12:32 12:48 WBC 20.7 H RBC 4.87 Hgb 13.8 Hct 42.3 MCV 86.9 MCH 28.3 MCHC 32.6 RDW 13.2 Plt Count 239 D MPV 10.4 Immature Gran % (Auto) 0.8 H Neut % (Auto) 91.1 H Lymph % (Auto) 4.2 L [place] % (Auto) 3.7 Eos % (Auto) 0.0 Baso % (Auto) 0.2 Lymph # (Auto) 0.86 L [place] # (Auto) 0.8 H Eos # (Auto) 0.0 Baso # (Auto) 0.0 Abs Immat Gran (auto) 0.16 H Absolute Neuts (auto) 18.8 H Absolute Nucleated RBC 0.000 Nucleated RBC % 0.0 ABG pH 7.552 H* ABG pCO2 16.4 L* ABG pO2 105.6 H ABG PO2/FiO2 Ratio 5.03 ABG HCO3 14.1 L ABG O2 Saturation 98.5 ABG O2 Content 20.0 ABG Base Excess -5.1 A-a Gradient 24.5 Oxyhemoglobin 97.7 Carboxyhemoglobin 0.7 Methemoglobin 0.2 Reduced Hemoglobin 1.4 Total Hemoglobin 14.5 FiO2 21 Sodium 137 Potassium 4.0 Chloride 102 Carbon Dioxide 13 L Anion Gap 22 H BUN 53 H Creatinine 4.48 H Estim Creat Clear Calc 19 Estimated GFR 10 L Glucose 521 H* POC Capillary Glucose 473 H Lactic Acid 3.1 H Calcium 11.3 H Total Bilirubin 1.1 AST 45 H ALT 34 Alkaline Phosphatase 175 H Total Protein 8.5 H Albumin 4.6 Lipase 123 07/23/25 07/23/25 07/23/25 16:26 16:51 17:49 WBC RBC Hgb Hct MCV MCH MCHC RDW Plt Count MPV Immature Gran % (Auto) Neut % (Auto) Lymph % (Auto) [place] % (Auto) Eos % (Auto) Baso % (Auto) Lymph # (Auto) [place] # (Auto) Eos # (Auto) Baso # (Auto) Abs Immat Gran (auto) Absolute Neuts (auto) Absolute Nucleated RBC Nucleated RBC % ABG pH ABG pCO2 ABG pO2 ABG PO2/FiO2 Ratio ABG HCO3 ABG O2 Saturation ABG O2 Content ABG Base Excess A-a Gradient Oxyhemoglobin Carboxyhemoglobin Methemoglobin Reduced Hemoglobin Total Hemoglobin FiO2 Sodium Potassium Chloride Carbon Dioxide Anion Gap BUN Creatinine Estim Creat Clear Calc Estimated GFR Glucose POC Capillary Glucose 409 H 353 H 293 H Lactic Acid Calcium Total Bilirubin AST ALT Alkaline Phosphatase Total Protein Albumin Lipase 07/23/25 07/23/25 07/24/25 18:22 21:03 04:27 WBC 17.7 H RBC 3.84 L Hgb 11.1 L Hct 34.3 L MCV 89.3 MCH 28.9 MCHC 32.4 RDW 13.3 Plt Count 193 MPV 10.1 Immature Gran % (Auto) 0.7 H Neut % (Auto) 84.2 H Lymph % (Auto) 9.5 L [place] % (Auto) 5.2 Eos % (Auto) 0.1 Baso % (Auto) 0.3 Lymph # (Auto) 1.69 [place] # (Auto) 0.9 H Eos # (Auto) 0.0 Baso # (Auto) 0.1 Abs Immat Gran (auto) 0.13 H Absolute Neuts (auto) 14.9 H Absolute Nucleated RBC 0.000 Nucleated RBC % 0.0 ABG pH ABG pCO2 ABG pO2 ABG PO2/FiO2 Ratio ABG HCO3 ABG O2 Saturation ABG O2 Content ABG Base Excess A-a Gradient Oxyhemoglobin Carboxyhemoglobin Methemoglobin Reduced Hemoglobin Total Hemoglobin FiO2 Sodium 138 Potassium 3.4 Chloride 106 Carbon Dioxide 21 L Anion Gap 11 BUN 47 H Creatinine 3.43 H Estim Creat Clear Calc 25 Estimated GFR 14 L Glucose 212 H POC Capillary Glucose 265 H Lactic Acid 3.0 H Calcium 10.0 Total Bilirubin AST ALT Alkaline Phosphatase Total Protein Albumin Lipase 07/24/25 07:52 WBC RBC Hgb Hct MCV MCH MCHC RDW Plt Count MPV Immature Gran % (Auto) Neut % (Auto) Lymph % (Auto) [place] % (Auto) Eos % (Auto) Baso % (Auto) Lymph # (Auto) [place] # (Auto) Eos # (Auto) Baso # (Auto) Abs Immat Gran (auto) Absolute Neuts (auto) Absolute Nucleated RBC Nucleated RBC % ABG pH ABG pCO2 ABG pO2 ABG PO2/FiO2 Ratio ABG HCO3 ABG O2 Saturation ABG O2 Content ABG Base Excess A-a Gradient Oxyhemoglobin Carboxyhemoglobin Methemoglobin Reduced Hemoglobin Total Hemoglobin FiO2 Sodium Potassium Chloride Carbon Dioxide Anion Gap BUN Creatinine Estim Creat Clear Calc Estimated GFR Glucose POC Capillary Glucose 187 H Lactic Acid Calcium Total Bilirubin AST ALT Alkaline Phosphatase Total Protein Albumin Lipase
--- NOTE | 2025-07-24 09:18 | ECG_ITS ---
Test Date: 2025-07-24 12:43:11 Measurements Intervals [place] Rate: 80 P: 45 [place]: 208 QRS: -72 QRSD: 154 T: 97 QT: 431 QTc: 500 Interpretive Statements SINUS RHYTHM WITH FREQUENT SUPRAVENTRICULAR PREMATURE COMPLEXES RIGHT BUNDLE BRANCH BLOCK LEFT ANTERIOR FASCICULAR BLOCK LEFT VENTRICULAR HYPERTROPHY WITH ST-T CHANGE BASELINE ARTIFACT- I, II, AVR, AVL ,AVF, V1-V6 ABNORMAL ECG Compared to ECG 07/23/2025 17:01:21 HEART RATE HAS DECREASED Electronically Signed On 07-24-2025 13:43:56 CDT by Betito Huber D.O.
[2025-07-24] MEDS: TRIMETHOBENZAMIDE HCL 200 MG/2 ML VIAL IM ×3 (10:03→22:04)
[2025-07-24] MEDS: ACETAMINOPHEN 325 MG TABLET 650 MG PO (10:14)
[2025-07-24] MEDS: POTASSIUM CHLORIDE 10 MEQ ER TABLET PO (10:14)
[2025-07-24] MEDS: PANTOPRAZOLE 40 MG TABLET PO (10:17)
[2025-07-24] MEDS: ACYCLOVIR 400 MG TABLET PO (10:17)
[2025-07-24] MEDS: ALPRAZolam (*CRX) 0.5 MG TABLET PO ×2 (10:18→22:00)
[2025-07-24] MEDS: SERTRALINE HCL 50 MG TABLET 100 MG PO (10:18)
[2025-07-24] MEDS: PIOGLITAZONE HCL 15 MG TAB PO (10:19)
[2025-07-24] MEDS: HYDROcodone/acetaminophen (*CRX) 5-325 MG TABLET 1 TAB PO (12:14)
[2025-07-24] MEDS: INSULIN ASPART (*BKC) 100 UNITS/ML SUB-Q (12:15)
[2025-07-24] MEDS: diazePAM INJ (*CRX) 10 MG/2 ML SYRINGE 5 MG IV PUSH (12:57)
[2025-07-24] MEDS: PROCHLORPERAZINE EDISYLATE 10 MG/2 ML VIAL IV PUSH (16:49)
[2025-07-24] MEDS: SCOPOLAMINE 1 MG PATCH 1 PATCH TRANSDERM (16:49)
[2025-07-24] MEDS: ZOLPIDEM TARTRATE (*CRX) 5 MG TABLET 10 MG PO (21:57)
[2025-07-25] VITALS (9 sets, daily range): BP systolic 127–147; BP diastolic 73–80; PULSE 68–84; RESP 17–20; TEMP 36.1–37.3; O2SAT 96–99
[2025-07-25] MEDS: PROCHLORPERAZINE EDISYLATE 10 MG/2 ML VIAL IV PUSH (01:14)
[2025-07-25] MEDS: HYDROmorphone HCL INJ (*CRX) 1 MG/ML SYR 0.5 MG IV PUSH ×2 (01:19→05:32)
--- NOTE | 2025-07-25 01:30 | PC.NURSE ---
PT states If I take my medicine I will get nauseous and I cant take my pills on a empty stomach. It will make me nauseous I offered anti-nausea medication and food so she could take her medications and said no. She only will take her ambien,xanax,IV pain meds and anti-nausea medication.
[2025-07-25 06:14] LABS: Hematocrit 38.2 % (37.0-47.0); Hemoglobin 12.4 g/dL (12.0-15.0); Mean Corpuscular HGB Conc 32.5 g/dl (32-36); Mean Corpuscular Hemoglobin 28.8 pg (26-34); Mean Corpuscular Volume 88.6 fl (80-100); Platelet Count Result 232 k/mm3 (150-375); Red Blood Count 4.31 M/mm3 (4.2-5.4); White Blood Count 15.5 K/mm3 (4.5-10.0)
[2025-07-25 06:34] LABS: Alanine Aminotransferase 22 U/L (6-35); Albumin Level 3.5 g/dL (3.5-5.1); Alkaline Phosphatase 101 U/L (38-126); Anion Gap 10 mmol/L (4-12); Aspartate Amino Transferase 46 U/L (14-36); Bilirubin,Total 0.6 mg/dL (0.2-1.3); Blood Urea Nitrogen 41 mg/dL (7-17); Calcium 9.7 mg/dL (8.4-10.2); Carbon Dioxide 24 mmol/L (22-30); Chloride 102 mmol/L (98-107); Estimated CRCL calculation 29 ml/min; Estimated Glomerular Filt Rate 17; Glucose 204 mg/dL (65-110); Potassium 3.4 mmol/L (3.4-5.0); Sodium 136 mmol/L (137-145); Total Protein 6.6 g/dL (6.3-8.2)
[2025-07-25 07:14] LABS: Thyroid Stimulating Hormone Reflex 3.580 uIU/mL (0.465-4.68)
--- NOTE | 2025-07-25 09:00 | P.PNIM_ITS ---
Progress Note: A&P Assessment and Plan (1) LUKE (acute kidney injury): Code(s): N17.9 - Acute kidney failure, unspecified Status: Acute Assessment and Plan: Likely from dehydration from vomiting Aggressive fluid hydration 07/24 Held all diuretics, Creatinine 3.43 (baseline 2.5-2.75) 07/25: Creatinine down to 2.89 today, continue to monitor. 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 Reports that Dilaudid makes her abd feel better, we discussed that this was an inappropriate drug for this type of pain for snf and that I would order something else for her. She requests something IV due to her nausea. Limited due to LUKE. Pt also reports that oral norco makes her nauseous. -Continue with acetaminophen to see if this helps (if she can keep it down) -Reassess pain tomorrow as well as LUKE (3) Anxiety and depression: Code(s): F41.9 - Anxiety disorder, unspecified; F32.9 - Major depressive disorder, single episode, unspecified Status: Acute Assessment and Plan: Continue Xanax, Zoloft 07/25: Continue above medications, stable (4) HTN (hypertension): Qualifiers: Hypertension type: unspecified Qualified Code(s): I10 - Essential (primary) hypertension Code(s): I10 - Essential (primary) hypertension Status: Chronic Assessment and Plan: Holding antihypertensive medications due to acute dehydration 07/24/2025 Held chlorthalidone and bumetanide 07/25: 147/80, continue to hold above medications, will re-assess tomorrow. (5) Diabetes mellitus: Code(s): E11.9 - Type 2 diabetes mellitus without complications Status: Chronic Assessment and Plan: Clear liquid diet Accu-Cheks a.c. HS SSI and Lantus 07/24 FBS 187, improving 07/25: FBS 204, per med rec, pt has refused last x2 doses, getting AM dose today, will continue to trend -DM diet entered today (6) CHF (congestive heart failure): Code(s): I50.9 - Heart failure, unspecified Status: Acute Assessment and Plan: Hold spironolactone 07/24 Hold bumetanide and chlorthalidone while hydrating 07/25: Continues to deny SOB and CP. Continue to hold above medications until creatinine back at baseline, 2.89 today (7) Prolonged QT interval: Code(s): R94.31 - Abnormal electrocardiogram [ECG] [EKG] Status: Acute Assessment and Plan: QTC 599 Avoid QTC prolonging medications 07/24 Repeat EKG 07/25: Per EKG yesterday, QT down to 500, will continue to monitor through dehydration. Repeat EKG tomorrow? TELE: 72bpm, 486 QTc (8) Irritable bowel syndrome with constipation: Code(s): K58.1 - Irritable bowel syndrome with constipation Status: Acute (9) Rheumatoid arthritis: Qualifiers: Rheumatoid arthritis location: unspecified site Rheumatoid factor presence: unspecified presence Qualified Code(s): M06.9 - Rheumatoid arthritis, unspecified Code(s): M06.9 - Rheumatoid arthritis, unspecified Status: Acute (10) Stage 4 chronic kidney disease: Code(s): N18.4 - Chronic kidney disease, stage 4 (severe) Status: Acute Assessment and Plan: 07/25: Appears baseline creatinine ~2-3, see above LUKE (11) Leukocytosis: Code(s): D72.829 - Elevated white blood cell count, unspecified Status: Acute Assessment and Plan: 07/24/2025 Likely demargination due to acute stress, no obvious infection 07/25: Continues to decrease, 15.5 today, will continue to monitor Plan Monitor intake and appetite, trend labs (renal / WBC) Time Spent With Patient Time: 30 Subjective Date/time seen: 07/25/25 1141 Interval history: Pt sitting on side of the bed upon my entrance. Pt reports continual N/V and abd cramping from vomiting. Pt reports that she has been able to keep some liquids down, is eager to try more but not progress too quickly, with plans to order clear liquids for lunch/dinner. 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 She requests something IV due to her nausea. Limited due to LUKE. Denies SOB/CP. QTc 486 today. Review of Systems Review of Systems: 12 systems were reviewed and are negativ e except for as per HPI. All systems reviewed & are unremarkable except as noted in HPI and below Exam Narrative: HEENT: PERRL, sclerae nonicteric, pharyngeal mucosa pink and intact, R iris cloudy NECK: No JVD, adenopathy, or thyromegaly CHEST: Clear to auscultation. Normal effort HEART: NL S1/S2, regular, ABNL systolic sound LUSB w/o radiation ABDOMEN: BS+, soft, nontender, no mass, no bruits EXTREMITIES: No cyanosis, edema, or clubbing NEUROLOGIC: CN intact and symmetric to inspection MUSCULOSKELETAL: Tone and strength symmetric PSYCH: Alert. Oriented to person, place, and time Psych: Mental Status: mental status grossly normal Affect: normal affect Objective Data Vital Signs Vital Signs: Vital Signs - 24 hr 07/24/25 10:00 07/24/25 10:18 07/24/25 12:00 Temperature Pulse Rate 87 84 84 Respiratory Rate Blood Pressure Pulse Oximetry Oxygen Delivery 07/24/25 12:25 07/24/25 12:40 07/24/25 16:00 Temperature 98.4 F Pulse Rate 89 87 101 H Respiratory Rate 16 Blood Pressure 149/66 H 154/74 H Pulse Oximetry 97 100 Oxygen Delivery Room Air 07/24/25 17:30 07/24/25 20:00 07/24/25 20:45 Temperature 98.5 F 98.1 F Pulse Rate 79 99 102 H Respiratory Rate 16 17 Blood Pressure 180/73 H 178/91 H Pulse Oximetry 96 97 Oxygen Delivery 07/25/25 00:00 07/25/25 04:00 07/25/25 05:09 Temperature 97.4 F L Pulse Rate 78 84 72 Respiratory Rate 17 Blood Pressure 127/73 Pulse Oximetry 96 Oxygen Delivery Intake/Output Intake/Output: Intake & Output 07/22/25 07/23/25 07/24/25 07/25/25 23:59 23:59 23:59 23:59 Intake Total 3000 3920 550 Output Total 400 1000 Balance 2600 2920 550 Meds/Results Medications: Active Medications Generic Name Dose Route Start Last Admin Trade Name Freq PRN Reason Stop Dose Admin Acetaminophen 650 mg 07/23/25 16:28 07/24/25 10:14 Acetaminophen 325 Mg Tablet PO 650 mg Q4H PRN Administration Mild Pain (1-3) or Fever Hydrocodone Bitart/Acetaminophen 1 tab 07/23/25 16:28 07/24/25 12:14 Hydrocodone/Acetaminophen (*Crx) 5-325 Mg Tablet PO 1 tab Q4H PRN Administration Pain Rated 4-6 Acyclovir 400 mg 07/24/25 09:00 07/24/25 18:51 Acyclovir 400 Mg Tablet PO Not Given BID [facility] Alprazolam 0.5 mg 07/25/25 09:00 Alprazolam (*Crx) 0.5 Mg Tablet PO TID@0900,1300,2100 [facility] Amitriptyline HCl 50 mg 07/23/25 21:00 07/25/25 01:26 Amitriptyline Hcl 25 Mg Tablet PO Not Given HS [facility] Atorvastatin Calcium 20 mg 07/23/25 21:00 07/25/25 01:27 Atorvastatin 10 Mg Tablet PO Not Given QHS [facility] Carvedilol 6.25 mg 07/23/25 21:00 07/25/25 01:27 Carvedilol 6.25 Mg Tablet PO Not Given Q12HR [facility] Dextrose 12.5 gm 07/23/25 16:45 Dextrose 50% 25 Gm/50 Ml Syringe IV PUSH PRN PRN Hypoglycemia Protocol Diazepam 5 mg 07/23/25 21:24 07/24/25 12:57 Diazepam Inj (*Crx) 10 Mg/2 Ml Syringe IV PUSH 5 mg Q6HR PRN Administration Vomiting Docusate Sodium 100 mg 07/23/25 16:45 Docusate Sodium 100 Mg Capsule PO BID PRN Constipation Glucagon 1 mg 07/23/25 16:45 Glucagon For Inj 1 Mg Vial IM PRN PRN Hypoglycemia Protocol Glucose 15 gm 07/23/25 16:45 Glucose Oral Gel 15 Gm Of Glucse In 37.5 Gm Tube PO PRN PRN Hypoglycemia Protocol Hydromorphone HCl 0.5 mg 07/23/25 16:28 07/25/25 05:32 Hydromorphone Hcl Inj (*Crx) 1 Mg/Ml Syr IV PUSH 0.5 mg Q4H PRN Administration Pain Rated 7-10 Lactated Ringer's 1,000 mls @ 125 mls/hr 07/23/25 16:30 07/24/25 21:55 Lr - Lactated Ringers Iv IV CONT 125 mls/hr .Q8H [facility] Administration Dextrose 1,000 mls @ 100 mls/hr 07/23/25 16:45 Dextrose 5% 1,000 Ml IVPB PRN PRN Hypoglycemia Protocol Insulin Aspart 4 - 8 units 07/23/25 17:00 07/24/25 19:06 Insulin Aspart (*Bkc) 100 Units/Ml SUB-Q Not Given TIDWM [facility] Protocol Insulin Aspart 2 - 4 units 07/23/25 21:00 07/25/25 01:27 Insulin Aspart (*Bkc) 100 Units/Ml SUB-Q Not Given HS [facility] Protocol Insulin Glargine 35 units 07/23/25 17:00 07/24/25 19:07 Insulin Glargine (*Bkc) 100 Units/Ml 0.3 units/kg (35 units) Not Given SUB-Q BID [facility] Lactulose 10 gm 07/24/25 09:00 07/24/25 18:51 Lactulose 20 Gm/30 Ml Udc PO Not Given BID [facility] Pantoprazole Sodium 40 mg 07/24/25 09:00 07/25/25 01:30 Pantoprazole 40 Mg Tablet PO Not Given Q12HR [facility] Pioglitazone HCl 15 mg 07/24/25 09:00 07/24/25 10:19 Pioglitazone Hcl 15 Mg Tab PO 15 mg DAILY [facility] Administration Prazosin HCl 2 mg 07/23/25 21:00 07/25/25 01:30 Prazosin Hcl 1 Mg Capsule PO Not Given HS [facility] Prochlorperazine Edisylate 10 mg 07/24/25 16:24 07/25/25 01:14 Prochlorperazine Edisylate 10 Mg/2 Ml Vial IV PUSH 10 mg Q6H PRN Administration Nausea And Vomiting Sertraline HCl 100 mg 10/18/25 09:00 07/24/25 10:18 Sertraline Hcl 50 Mg Tablet PO 100 mg DAILY [facility] Administration Trimethobenzamide HCl 200 mg 07/23/25 21:23 07/24/25 22:04 Trimethobenzamide Hcl 200 Mg/2 Ml Vial IM 200 mg Q6H PRN Administration Nausea And Vomiting Zolpidem Tartrate 10 mg 07/23/25 20:12 07/24/25 21:57 Zolpidem Tartrate (*Crx) 5 Mg Tablet PO 10 mg HS PRN Administration Insomnia Radiology Results: ITS Impressions Abdomen/Pelvis CT 07/23/25 15:34 IMPRESSION: Focal circumferential thickening of the rectal wall can be followed evaluated with colonoscopy. Ill-defined irregular area of low attenuation in the left hepatic lobe is unchanged. All CT scans at this facility are performed using low dose modulation techniques as appropriate to perform exam including the following: automated exposure control; use of iterative reconstruction technique; adjustment of the mA and/or kV according to patient size (this includes techniques or standardized protocols for targeted exams where dose is matched to indication/reason for e xam). Labs Labs: Laboratory Results - last 24 hr 07/24/25 07/24/25 07/24/25 11:38 17:48 20:43 WBC RBC Hgb Hct MCV MCH MCHC RDW Plt Count MPV Sodium Potassium Chloride Carbon Dioxide Anion Gap BUN Creatinine Estim Creat Clear Calc Estimated GFR Glucose POC Capillary Glucose 219 H 236 H 259 H Calcium Total Bilirubin AST ALT Alkaline Phosphatase Total Protein Albumin TSH (Reflex) 07/25/25 07/25/25 05:47 07:42 WBC 15.5 H RBC 4.31 Hgb 12.4 Hct 38.2 MCV 88.6 MCH 28.8 MCHC 32.5 RDW 13.2 Plt Count 232 MPV 10.2 Sodium 136 L Potassium 3.4 Chloride 102 Carbon Dioxide 24 Anion Gap 10 BUN 41 H Creatinine 2.89 H Estim Creat Clear Calc 29 Estimated GFR 17 L Glucose 204 H POC Capillary Glucose 204 H Calcium 9.7 Total Bilirubin 0.6 AST 46 H ALT 22 Alkaline Phosphatase 101 Total Protein 6.6 Albumin 3.5 TSH (Reflex) 3.580 Quality VTE Prophylaxis VTE prophylaxis: mechanical ordered
[2025-07-25] MEDS: LACTATED RINGERS 1,000 ML 125 ML IV CONT ×2 (11:30→20:30)
[2025-07-25] MEDS: PANTOPRAZOLE 40 MG TABLET PO ×2 (11:32→20:31)
[2025-07-25] MEDS: PIOGLITAZONE HCL 15 MG TAB PO (11:32)
[2025-07-25] MEDS: SERTRALINE HCL 50 MG TABLET 100 MG PO (11:32)
[2025-07-25] MEDS: INSULIN GLARGINE (*BKC) 100 UNITS/ML 35 UNITS SUB-Q ×2 (11:33→18:21)
[2025-07-25] MEDS: ALPRAZolam (*CRX) 0.5 MG TABLET PO ×2 (11:33→20:31)
[2025-07-25] MEDS: INSULIN ASPART (*BKC) 100 UNITS/ML SUB-Q ×2 (18:20→20:40)
[2025-07-25] MEDS: ATORVASTATIN 10 MG TABLET 20 MG PO (20:31)
[2025-07-25] MEDS: AMITRIPTYLINE HCL 25 MG TABLET 50 MG PO (20:31)
[2025-07-25] MEDS: PRAZOSIN HCL 1 MG CAPSULE 2 MG PO (20:31)
[2025-07-25] MEDS: ZOLPIDEM TARTRATE (*CRX) 5 MG TABLET 10 MG PO (20:38)
[2025-07-26] VITALS (8 sets, daily range): BP systolic 141–148; BP diastolic 73–79; PULSE 57–91; RESP 16–20; TEMP 36.7–36.8; O2SAT 98
[2025-07-26 06:04] LABS: Hematocrit 35.8 % (37.0-47.0); Hemoglobin 11.5 g/dL (12.0-15.0); Mean Corpuscular HGB Conc 32.1 g/dl (32-36); Mean Corpuscular Hemoglobin 28.7 pg (26-34); Mean Corpuscular Volume 89.3 fl (80-100); Platelet Count Result 182 k/mm3 (150-375); Red Blood Count 4.01 M/mm3 (4.2-5.4); White Blood Count 9.4 K/mm3 (4.5-10.0)
[2025-07-26 07:27] LABS: Albumin Level 3.2 g/dL (3.5-5.1); Anion Gap 7 mmol/L (4-12); Bilirubin,Total 0.5 mg/dL (0.2-1.3); Blood Urea Nitrogen 41 mg/dL (7-17); Calcium 9.8 mg/dL (8.4-10.2); Carbon Dioxide 26 mmol/L (22-30); Chloride 102 mmol/L (98-107); Estimated CRCL calculation 29 ml/min; Estimated Glomerular Filt Rate 17; Potassium 3.2 mmol/L (3.4-5.0); Sodium 135 mmol/L (137-145); Total Protein 5.9 g/dL (6.3-8.2)
[2025-07-26 07:28] LABS: Alanine Aminotransferase 21 U/L (6-35); Alkaline Phosphatase 94 U/L (38-126); Aspartate Amino Transferase 32 U/L (14-36); Glucose 174 mg/dL (65-110)
[2025-07-26] MEDS: PANTOPRAZOLE 40 MG TABLET PO (09:35)
[2025-07-26] MEDS: PIOGLITAZONE HCL 15 MG TAB PO (09:35)
[2025-07-26] MEDS: ALPRAZolam (*CRX) 0.5 MG TABLET PO ×2 (09:35→12:39)
[2025-07-26] MEDS: SERTRALINE HCL 50 MG TABLET 100 MG PO (09:36)
[2025-07-26] MEDS: INSULIN GLARGINE (*BKC) 100 UNITS/ML 35 UNITS SUB-Q ×2 (09:42→17:08)
[2025-07-26] MEDS: LACTATED RINGERS 1,000 ML 125 ML IV CONT (09:43)
--- NOTE | 2025-07-26 11:31 | P.PNIM_ITS ---
Progress Note: A&P Assessment and Plan (1) LUKE (acute kidney injury): Code(s): N17.9 - Acute kidney failure, unspecified Status: Acute Assessment and Plan: Likely from dehydration from vomiting Aggressive fluid hydration 07/24 Held all diuretics, Creatinine 3.43 (baseline 2.5-2.75) 07/25: Creatinine down to 2.89 today, continue to monitor. -Continue to hold bumex and chlorthalidone due to LUKE, pt continues to deny CP and SOB -Pt beginning to drink more water per os 07/26: Creatinine 2.98, continue to monitor. Looks as if this is her baseline. 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 She requests something IV due to her nausea. Limited due to LUKE. Pt also reports that oral norco makes her nauseous. -Continue with acetaminophen to see if this helps (if she can keep it down) -Reassess pain tomorrow as well as LUKE 07/26: Pt continues to c/o nausea but reports being able to hold down a small amount of solid. Also still reporting of all over pain -Continue nausea and pain medication -Possible discharge tomorrow if able to tolerate PO (3) Anxiety and depression: Code(s): F41.9 - Anxiety disorder, unspecified; F32.9 - Major depressive disorder, single episode, unspecified Status: Acute Assessment and Plan: Continue Xanax, Zoloft 07/25: Continue above medications, stable (4) HTN (hypertension): Code(s): I10 - Essential (primary) hypertension Status: Chronic Assessment and Plan: Holding antihypertensive medications due to acute dehydration 07/24/2025 Held chlorthalidone and bumetanide 07/25: 147/80, continue to hold above medications, will re-assess tomorrow. 07/26: 141/73 -Creatinine back to baseline, will continue above medications for preparation for discharge hopefully tomorrow. (5) Diabetes mellitus: Code(s): E11.9 - Type 2 diabetes mellitus without complications Status: Chronic Assessment and Plan: Clear liquid diet Accu-Cheks a.c. HS SSI and Lantus 07/24 FBS 187, improving 07/25: FBS 204, per med rec, pt has refused last x2 doses, getting AM dose today, will continue to trend -DM diet entered today 07/26: -FBS 174 (6) CHF (congestive heart failure): Code(s): I50.9 - Heart failure, unspecified Status: Acute Assessment and Plan: Hold spironolactone 07/24 Hold bumetanide and chlorthalidone while hydrating 07/25: Continues to deny SOB and CP. Continue to hold above medications until creatinine back at baseline, 2.89 today 07/26: Continues to deny SOB and CP. Above medication restarted today since tolerating more PO and creatinine back to baseline in preparation for discharge tomorrow (7) Prolonged QT interval: Code(s): R94.31 - Abnormal electrocardiogram [ECG] [EKG] Status: Acute Assessment and Plan: QTC 599 Avoid QTC prolonging medications 07/24 Repeat EKG 07/25: Per EKG yesterday, QT down to 500, will continue to monitor through dehydration. Repeat EKG tomorrow? TELE: 72bpm, 486 QTc 07/26: QTc today 516, continue tele -Denies CP, 68bpm (8) Irritable bowel syndrome with constipation: Code(s): K58.1 - Irritable bowel syndrome with constipation Status: Acute Assessment and Plan: Continue Tenapanor (9) Rheumatoid arthritis: Qualifiers: Rheumatoid arthritis location: unspecified site Rheumatoid factor presence: unspecified presence Qualified Code(s): M06.9 - Rheumatoid arthritis, unspecified Code(s): M06.9 - Rheumatoid arthritis, unspecified Status: Acute (10) Stage 4 chronic kidney disease: Code(s): N18.4 - Chronic kidney disease, stage 4 (severe) Status: Acute Assessment and Plan: 07/25: Appears baseline creatinine ~2-3, see above LUKE (11) Leukocytosis: Code(s): D72.829 - Elevated white blood cell count, unspecified Status: Acute Assessment and Plan: 07/24/2025 Likely demargination due to acute stress, no obvious infection 07/25: Continues to decrease, 15.5 today, will continue to monitor 07/26: Continues to decrease, 9.4 today, will continue to monitor. Plan Monitor intake and appetite, trend labs (renal / WBC) Hopeful for discharge tomorrow pending PO tolerance Time Spent With Patient Time: 30 Subjective Date/time seen: 07/26/25 1100 Interval history: Pt lying down sleeping upon my entrance. Pt reports that she is still feeling unwell, her pain is all over 6/10 as well as nausea. Pt does report that she is keeping a small amount of solids down, but has been struggling today eating. Denies SOB/CP. Review of Systems Review of Systems: 12 systems were reviewed and are negativ e except for as per HPI. All systems reviewed & are unremarkable except as noted in HPI and below Exam Narrative: HEENT: PERRL, sclerae nonicteric, pharyngeal mucosa pink and intact, R iris cloudy NECK: No JVD, adenopathy, or thyromegaly CHEST: Clear to auscultation. Normal effort HEART: NL S1/S2, regular, ABNL systolic sound LUSB w/o radiation ABDOMEN: BS+, soft, no mass, no bruits, TTP bilateral lower abd EXTREMITIES: No cyanosis, edema, or clubbing NEUROLOGIC: CN intact and symmetric to inspection MUSCULOSKELETAL: Tone and strength symmetric PSYCH: Alert. Oriented to person, place, and time Psych: Mental Status: mental status grossly normal Affect: normal affect Objective Data Vital Signs Vital Signs: Vital Signs - 24 hr 07/25/25 11:33 07/25/25 12:00 07/25/25 14:00 Temperature 97.0 F L Pulse Rate 72 72 71 Respiratory Rate 18 Blood Pressure 147/80 H Pulse Oximetry 99 Oxygen Delivery 07/25/25 20:00 07/25/25 20:00 07/25/25 20:38 Temperature 99.2 F Pulse Rate 68 68 68 Respiratory Rate 20 20 Blood Pressure 146/79 H Pulse Oximetry 97 97 Oxygen Delivery Room Air 07/26/25 00:00 07/26/25 03:56 07/26/25 04:39 Temperature 98.2 F Pulse Rate 62 57 L 62 Respiratory Rate 20 Blood Pressure 141/73 H Pulse Oximetry 98 Oxygen Delivery 07/26/25 08:00 07/26/25 08:00 07/26/25 09:36 Temperature Pulse Rate 72 83 Respiratory Rate Blood Pressure Pulse Oximetry Oxygen Delivery Room Air Intake/Output Intake/Output: Intake & Output 07/23/25 07/24/25 07/25/25 07/26/25 23:59 23:59 23:59 23:59 Intake Total 3000 3920 3270 1490 Output Total 400 1000 Balance 2600 2920 3270 1490 Meds/Results Medications: Active Medications Generic Name Dose Route Start Last Admin Trade Name Freq PRN Reason Stop Dose Admin Acetaminophen 650 mg 07/23/25 16:28 07/24/25 10:14 Acetaminophen 325 Mg Tablet PO 650 mg Q4H PRN Administration Mild Pain (1-3) or Fever Hydrocodone Bitart/Acetaminophen 1 tab 07/23/25 16:28 07/24/25 12:14 Hydrocodone/Acetaminophen (*Crx) 5-325 Mg Tablet PO 1 tab Q4H PRN Administration Pain Rated 4-6 Acyclovir 400 mg 07/24/25 09:00 07/26/25 09:37 Acyclovir 400 Mg Tablet PO Not Given BID [facility] Alprazolam 0.5 mg 07/25/25 09:00 07/26/25 09:35 Alprazolam (*Crx) 0.5 Mg Tablet PO 0.5 mg TID@0900,1300,2100 [facility] Administration Amitriptyline HCl 50 mg 07/23/25 21:00 07/25/25 20:31 Amitriptyline Hcl 25 Mg Tablet PO 50 mg HS [facility] Administration Atorvastatin Calcium 20 mg 07/23/25 21:00 07/25/25 20:31 Atorvastatin 10 Mg Tablet PO 20 mg QHS [facility] Administration Carvedilol 6.25 mg 07/23/25 21:00 07/26/25 09:36 Carvedilol 6.25 Mg Tablet PO 6.25 mg Q12HR [facility] Administration Dextrose 12.5 gm 07/23/25 16:45 Dextrose 50% 25 Gm/50 Ml Syringe IV PUSH PRN PRN Hypoglycemia Protocol Diazepam 5 mg 07/23/25 21:24 07/24/25 12:57 Diazepam Inj (*Crx) 10 Mg/2 Ml Syringe IV PUSH 5 mg Q6HR PRN Administration Vomiting Docusate Sodium 100 mg 07/23/25 16:45 Docusate Sodium 100 Mg Capsule PO BID PRN Constipation Glucagon 1 mg 07/23/25 16:45 Glucagon For Inj 1 Mg Vial IM PRN PRN Hypoglycemia Protocol Glucose 15 gm 07/23/25 16:45 Glucose Oral Gel 15 Gm Of Glucse In 37.5 Gm Tube PO PRN PRN Hypoglycemia Protocol Hydromorphone HCl 0.5 mg 07/23/25 16:28 07/25/25 05:32 Hydromorphone Hcl Inj (*Crx) 1 Mg/Ml Syr IV PUSH 0.5 mg Q4H PRN Administration Pain Rated 7-10 Lactated Ringer's 1,000 mls @ 125 mls/hr 07/23/25 16:30 07/26/25 09:43 Lr - Lactated Ringers Iv IV CONT 125 mls/hr .Q8H [facility] Administration Dextrose 1,000 mls @ 100 mls/hr 07/23/25 16:45 Dextrose 5% 1,000 Ml IVPB PRN PRN Hypoglycemia Protocol Insulin Aspart 4 - 8 units 07/23/25 17:00 07/26/25 09:37 Insulin Aspart (*Bkc) 100 Units/Ml SUB-Q Not Given TIDWM [facility] Protocol Insulin Aspart 2 - 4 units 07/23/25 21:00 07/25/25 20:40 Insulin Aspart (*Bkc) 100 Units/Ml SUB-Q 2 units HS [facility] Administration Protocol Insulin Glargine 35 units 07/23/25 17:00 07/26/25 09:42 Insulin Glargine (*Bkc) 100 Units/Ml 0.3 units/kg (35 units) 35 units SUB-Q Administration BID [facility] Lactulose 10 gm 07/24/25 09:00 07/26/25 09:37 Lactulose 20 Gm/30 Ml Udc PO Not Given BID [facility] Pantoprazole Sodium 40 mg 07/24/25 09:00 07/26/25 09:35 Pantoprazole 40 Mg Tablet PO 40 mg Q12HR [facility] Administration Pioglitazone HCl 15 mg 07/24/25 09:00 07/26/25 09:35 Pioglitazone Hcl 15 Mg Tab PO 15 mg DAILY [facility] Administration Prazosin HCl 2 mg 07/23/25 21:00 07/25/25 20:31 Prazosin Hcl 1 Mg Capsule PO 2 mg HS [facility] Administration Prochlorperazine Edisylate 10 mg 07/24/25 16:24 07/25/25 01:14 Prochlorperazine Edisylate 10 Mg/2 Ml Vial IV PUSH 10 mg Q6H PRN Administration Nausea And Vomiting Sertraline HCl 100 mg 07/24/25 09:00 07/26/25 09:36 Sertraline Hcl 50 Mg Tablet PO 100 mg DAILY [facility] Administration Trimethobenzamide HCl 200 mg 07/23/25 21:23 07/24/25 22:04 Trimethobenzamide Hcl 200 Mg/2 Ml Vial IM 200 mg Q6H PRN Administration Nausea And Vomiting Zolpidem Tartrate 10 mg 07/23/25 20:12 07/25/25 20:38 Zolpidem Tartrate (*Crx) 5 Mg Tablet PO 10 mg HS PRN Administration Insomnia Radiology Results: ITS Impressions Abdomen/Pelvis CT 07/23/25 15:34 IMPRESSION: Focal circumferential thickening of the rectal wall can be followed evaluated with colonoscopy. Ill-defined irregular area of low attenuation in the left hepatic lobe is unchanged. All CT scans at this facility are performed using low dose modulation techniques as appropriate to perform exam including the following: automated exposure control; use of iterative reconstruction technique; adjustment of the mA and/or kV according to patient size (this includes techniques or standardized protocols for targeted exams where dose is matched to indication/reason for exam). Labs Labs: Laboratory Results - last 24 hr 07/25/25 07/25/25 07/25/25 11:45 16:28 20:37 WBC RBC Hgb Hct MCV MCH MCHC RDW Plt Count MPV Sodium Potassium Chloride Carbon Dioxide Anion Gap BUN Creatinine Estim Creat Clear Calc Estimated GFR Glucose POC Capillary Glucose 277 H 249 H 269 H Calcium Total Bilirubin AST ALT Alkaline Phosphatase Total Protein Albumin 07/26/25 07/26/25 05:44 07:33 WBC 9.4 RBC 4.01 L Hgb 11.5 L Hct 35.8 L MCV 89.3 MCH 28.7 MCHC 32.1 RDW 13.1 Plt Count 182 MPV 10.1 Sodium 135 L Potassium 3.2 L Chloride 102 Carbon Dioxide 26 Anion Gap 7 BUN 41 H Creatinine 2.98 H Estim Creat Clear Calc 29 Estimated GFR 17 L Glucose 174 H POC Capillary Glucose 164 H Calcium 9.8 Total Bilirubin 0.5 AST 32 ALT 21 Alkaline Phosphatase 94 Total Protein 5.9 L Albumin 3.2 L Quality VTE Prophylaxis VTE prophylaxis: mechanical ordered
[2025-07-26] MEDS: HYDROcodone/acetaminophen (*CRX) 5-325 MG TABLET 1 TAB PO (12:39)
[2025-07-26] MEDS: TOPIRAMATE 25 MG TABLET 50 MG PO (13:21)
[2025-07-26] MEDS: PROCHLORPERAZINE EDISYLATE 10 MG/2 ML VIAL IV PUSH (13:21)
[2025-07-26] MEDS: INSULIN ASPART (*BKC) 100 UNITS/ML SUB-Q (17:07)
--- NOTE | 2025-07-26 17:44 | PC.NURSE ---
Lost IV access on patient, patient did not want another IV to be started. Talked with provider was told fluids could be stopped as pt is eating and drinking with no vomiting.
--- NOTE | 2025-08-10 18:12 | P.DS_ITS ---
DS: Admitting Diagnosis Discharge Date AMA date 07/26/25 Admitting Diagnosis N/V DS: Discharge Diagnosis Discharge Diagnosis Plan Pt left AMA on 07/26/2025 at 1947. DS: Summary Hospital Course Reason for hospitalization: N/V Hospital Course: ED: Patient is a 49-year-old female who presented to the ER for N/V x 2 days on 07/23/2025. Recently seen in the ER with negative CT scan earlier 07/22. Has history of cyclic vomiting. No alleviating factors at home. Has been having trouble controlling her blood sugar as well. Has pain in her abdomen related to cramping will get some discomfort chest with vomiting but otherwise no other is sues. She is not having diarrhea. Inpt stay: Pt with continued N/V during stay, but upon day left AMA, stated that she was still was nauseous but was holding down a small amount of food. Pt with acute LUKE as well in which her HTN medication and diuretics were held during her stay until 07/26/2025. Day of AMA, pt creatinine seemed to be back to her baseline. Discussed likely plan for discharge on 07/27/2025. Time Spent with Patient Time attestation: Total time spent providing and/or coordinating discharge services: Discharge Plan Discharge Consulting providers: Emily Carbajal; Carmen Crow; Betito Huber; Mak Jaquez; Pranav Shepherd; Hero Santana Patient Disposition: Left Against Medical Advice Patient Language: Dominican Discharge Medications: No Action insulin glargine [Lantus Solostar U-100 Insulin] 100 unit/mL (3 mL) insulin pen 38 unit subcut BID (DME) pen needle, diabetic [BD Mer 2nd Gen Pen Needle] 32 gauge x 5/32 needle See Rx Instructions .ROUTE .MEDSUPPLY Qty: 1200 Rx Instructions: As directed pioglitazone 15 mg tablet 15 mg PO DAILY Baqsimi 3 mg/actuation spray,non-aerosol 3 mg intranasal PRN PRN (Reason: Hypoglycemia) (DME) FreeStyle Sharita 3 Sensor Device See Rx Instructions .ROUTE .MEDSUPPLY Qty: 1 Rx Instructions: As directed sucralfate 1 gram tablet 1 g PO .qid with meals Qty: 120 1RF chlorthalidone 25 mg tablet 25 mg PO DAILY Qty: 30 6RF carvedilol 6.25 mg tablet 6.25 mg PO Q12H Qty: 60 6RF cholecalciferol (vitamin D3) 125 mcg (5,000 unit) tablet 5,000 unit PO DAILY clotrimazole-betamethasone 1-0.05 % cream 1 applic topical BID Qty: 15 1RF docusate sodium [Colace] 100 mg capsule 100 mg PO DAILY sertraline [Zoloft] 100 mg tablet 100 mg PO DAILY zolpidem 10 mg tablet 10 mg PO QPM PRN (Reason: Insomnia) atorvastatin 10 mg tablet 20 mg PO QHS alprazolam 0.5 mg tablet 0.5 mg PO TID spironolactone 25 mg tablet 25 mg PO DAILY Qty: 30 11RF bumetanide 1 mg tablet 1 mg PO BID Qty: 60 6RF zinc citrate 11 mg tablet,chewable 11 mg PO DAILY acyclovir 400 mg tablet 400 mg PO BID Qty: 180 3RF prucalopride [Motegrity] 1 mg tablet 1 mg PO DAILY 30 Days Qty: 30 5RF dicyclomine 10 mg capsule 10 mg PO BID PRN (Reason: abdominal pain) 10 Days Qty: 60 2RF Humalog KwikPen Insulin See Protocol subcut TIDWMEAL Protocol: Insulin Corrective High-Dose Condition: glucose < 70 mg/dl Dose/Route: Follow hypoglycemia order Condition: glucose 70-200 mg/dl Dose/Route: No additional insulin Condition: glucose 201-250 mg/dl Dose/Route: 4 units sub-Q Condition: glucose 251-300 mg/dl Dose/Route: 5 units sub-Q Condition: glucose 301-350 mg/dl Dose/Route: 6 units sub-Q Condition: glucose 351-400 mg/dl Dose/Route: 8 units sub-Q Condition: glucose > 400 mg/dl Dose/Route: Call MD Protocol Text: *No Correction Dose at Bedtime* Rx Instructions: Uses sliding scale for blood glucose greater than 150 prochlorperazine maleate 10 mg tablet 20 mg PO Q4-6H PRN (Reason: Nausea) ondansetron 4 mg tablet,disintegrating 4 mg PO Q8H PRN (Reason: nausea and vomiting) Qty: 7 0RF bisacodyl [Dulcolax (bisacodyl)] 10 mg suppository 10 mg RECTAL TID PRN (Reason: constipation) Qty: 12 0RF prazosin [Minipress] 2 mg Capsule 2 mg PO HS trazodone 50 mg Tablet 50 mg PO HS sumatriptan succinate 6 mg/0.5 mL pen injector 6 mg subcut ONCE PRN (Reason: Migraine Headache) Rx Instructions: may repeat dose once in 1 hour if not relieved coenzyme Q10 [Co Q-10] 100 mg capsule 100 mg PO DAILY amitriptyline 25 mg tablet 50 mg PO HS Qty: 180 1RF amlodipine 5 mg tablet See Rx Instructions .ROUTE .COMPLEX Qty: 90 1RF Dose Instruction: TAKE 1 TABLET BY MOUTH DAILY Rx Instructions: TAKE 1 TABLET BY MOUTH DAILY pantoprazole 40 mg tablet,delayed release (DR/EC) 40 mg PO DAILY PRN (Reason: Nausea) Qty: 90 1RF topiramate [Topamax] 25 mg capsule, sprinkle 50 mg PO BID Qty: 360 1RF Rx Instructions: titrate up to 50mg bid as directed Date of admission: 07/23/25 16:28 Primary Care Provider: Jamaal Ibarra Admitting Provider: Cullen Landeros Attending physician on admission: Cullen Landeros Condition: Stable
== END 2025-07-26 19:47 | disposition left against medical advice (07) ==
LOC: ANHED 16:30 → ANHIMU 17:21 → ANH3MEDSUR 07-25 07:16
PROVIDERS: Internal Medicine; Nurse Practitioner Gerontology; Admitting Provider Internal Medicine; Emergency Provider Emergency Medicine; PCP Internal Medicine; Visit Provider Internal Medicine
DX: R11.15 Cyclical vomiting syndrome unrelated to migraine (principal); Z53.29 Procedure and treatment not carried out because of patient's decision for other reasons; E11.9 Type 2 diabetes mellitus without complications; E78.5 Hyperlipidemia, unspecified; I13.0 Hypertensive heart and chronic kidney disease with heart failure and stage 1 through stage 4 chronic kidney disease, or unspecified chronic kidney disease; N18.4 Chronic kidney disease, stage 4 (severe); I50.9 Heart failure, unspecified; R00.0 Tachycardia, unspecified; I44.0 Atrioventricular block, first degree; I45.2 Bifascicular block; D72.829 Elevated white blood cell count, unspecified; M06.9 Rheumatoid arthritis, unspecified; M79.7 Fibromyalgia; K21.9 Gastro-esophageal reflux disease without esophagitis; K31.84 Gastroparesis; K58.1 Irritable bowel syndrome with constipation; K62.89 Other specified diseases of anus and rectum; E53.8 Deficiency of other specified B group vitamins; E03.9 Hypothyroidism, unspecified; F41.1 Generalized anxiety disorder; F32.9 Major depressive disorder, single episode, unspecified; F43.10 Post-traumatic stress disorder, unspecified; E66.9 Obesity, unspecified; Z68.41 Body mass index [BMI] 40.0-44.9, adult; H54.40 Blindness, one eye, unspecified eye; Z79.4 Long term (current) use of insulin; Z79.84 Long term (current) use of oral hypoglycemic drugs; Z79.85 Long-term (current) use of injectable non-insulin antidiabetic drugs; Z96.652 Presence of left artificial knee joint; Z90.710 Acquired absence of both cervix and uterus; Z90.49 Acquired absence of other specified parts of digestive tract; Z86.19 Personal history of other infectious and parasitic diseases; Z86.39 Personal history of other endocrine, nutritional and metabolic disease; Z87.19 Personal history of other diseases of the digestive system; Z87.441 Personal history of nephrotic syndrome; Z83.3 Family history of diabetes mellitus; Z82.49 Family history of ischemic heart disease and other diseases of the circulatory system; Z83.430 Family history of elevated lipoprotein(a); Z82.61 Family history of arthritis
CPT/HCPCS: 36415; 36600; 74176; 80048; 80053; 82375; 82805; 82948; 83050; 83605; 83690; 84443; 85018; 85025; 85027; 93005; 96361; 96374; 96375; 99212; 99285; A9270; G0463; J0780; J1171; J1630; J1815; J2405; J3250; J3360; J7030; J7120

== ENCOUNTER 2025-07-28 09:38 | Outpatient (CLI) | payer OTHER, SELFPAY ==
--- OUTSIDE RECORDS SUMMARY | 2019-07-08 | XMS_ITS | Encounter Summary ---
Author Organization [facility] Healthcare Address [address] [place] [address] Care Team Providers Care Waste Collection Driver Name Role Phone Jamaal Ibarra DO Primary Care Provider Reason for Visit * Diagnostic Imaging (Routine) - Closed Specialty Diagnoses / Procedures Referred By Liz borrero Referred To Contact Procedures Breast Imaging Screening Outside Reference Saul Ortiz NP Phone: tel: fax: Referral ID Status Reason Start Date Expiration Date Visits Re quested Visits Authorized [id number] Closed 10/16/2022 11/15/2023 1 1 Encounter Details Date Type Department Care Team (Late st Contact Info) Description 07/08/2019 Hospital Encounter [facility] Radiology [facility] [place] [address] Social History Tobacco Use Types [...] on file Legal Sex Female 12:16 AM CABLE TECHNICIAN Gender Identity Not on file Sexual Orientation [...] CDT) Impressions [facility] - 10/16/2022 11:48 AM CABLE TECHNICIAN These images are for Reference purposes only and have not been reviewed by [facility] Radiology. There will be no report generated by a [facility] Radiologist. Narrative RAD_M[facility] - 10/16/2022 11:48 AM CABLE TECHNICIAN EXAMINATION: Images For Reference Purposes Only us Saul Ortiz NP IMG MAMMO PROCEDURES Final Result [facility] documented in this encounter Visit Diagnoses Not on filedocumented in this encounter Care Teams Waste Collection Driver Relationship Specialty Start Date End Date Jamaal Ibarra DO PCP - General 10/22/17 documented as of this encounter
--- OUTSIDE RECORDS SUMMARY | 2019-07-15 | XMS_ITS | Encounter Summary ---
Author Organization [facility] Healthcare Address [address] [place] [address] Care Team Providers Care Document Management Technician Name Role Phone Jamaal Ibarra DO Primary Care Provider Reason for Visit * Diagnostic Imaging (Routine) - Closed Specialty Diagnoses / Procedures Referred By Liz borrero Referred To Contact Procedures Breast Imaging US Outside Reference Saul Ortiz NP Phone: tel: fax: Referral ID Status Reason Start Date Expiration Date Visits Re quested Visits Authorized [id number] Closed 10/16/2022 11/15/2023 1 1 Encounter Details Date Type Department Care Team (Late st Contact Info) Description 07/15/2019 Hospital Encounter [facility] Radiology [facility] [place] [address] Social History Tobacco Use Types [...] on file Legal Sex Female 12:16 AM STATION USHER Gender Identity Not on file Sexual Orientation [...] CDT) Impressions [facility] - 10/16/2022 11:47 AM STATION USHER These images are for Reference purposes only and have not been reviewed by [facility] Radiology. There will be no report generated by a [facility] Radiologist. Narrative RAD_M[facility] - 10/16/2022 11:47 AM STATION USHER EXAMINATION: Images For Reference Purposes Only us Saul Ortiz NP IMG MAMMO PROCEDURES Final Result [facility] documented in this encounter Visit Diagnoses Not on filedocumented in this encounter Care Teams Document Management Technician Relationship Specialty Start Date End Date Jamaal Ibarra DO PCP - General 10/22/17 documented as of this encounter
--- OUTSIDE RECORDS SUMMARY | 2019-07-15 00:05 | XMS_ITS | Encounter Summary ---
Author Organization [facility] Healthcare Address [address] [place] [address] Care Team Providers Care Subassembly Assembler Name Role Phone Jamaal Ibarra DO Primary Care Provider Reason for Visit * Diagnostic Imaging (Routine) - Closed Specialty Diagnoses / Procedures Referred By Liz borerro Referred To Contact Procedures Breast Imaging Diagnostic Outside Reference Saul Ortiz NP Phone: tel: fax: Referral ID Status Reason Start Date Expiration Date Visits Re quested Visits Authorized [id number] Closed 10/16/2022 11/15/2023 1 1 Encounter Details Date Type Department Care Team (Late st Contact Info) Description 07/15/2019 12:05 AM CDT Hospital Encounter [facility] Radiology [facility] [address] [place] [address] Social History Tobacco Use Types Packs/Day Years [...] on file Legal Sex Female 12:16 AM IMMIGRATION OFFICER Gender Identity Not on file Sexual Orientation Not on file documented as of this encounter Plan of Treatment Not on file documented as of this encounter Procedures Procedure Name Priority Date/Time Associated Diagnosis Comments BREAST IMAGING MG DIAGNOSTIC OUTSIDE REFERENCE Routine 07/15/2019 12:05 AM CDT documented in this encounter Results * Breast Imaging Diagnostic Outside Reference (07/15/2019 12:05 AM CDT) Impressions [facility] - 10/16/2022 11:47 AM IMMIGRATION OFFICER These images are for Reference purposes only and have not been reviewed by [facility] Radiology. There will be no report generated by a [facility] Radiologist. Narrative [facility] - 10/16/2022 11:47 AM IMMIGRATION OFFICER EXAMINATION: Images For Reference Purposes Only us Saul Ortiz NP IMG MAMMO PROCEDURES Final Result [facility] documented in this encounter Visit Diagnoses Not on filedocumented in this encounter Care Teams Subassembly Assembler Relationship Specialty Start Date End Date Jamaal Ibarra DO PCP - General 10/22/17 documented as of this encounter
--- OUTSIDE RECORDS SUMMARY | 2020-04-29 | XMS_ITS | Encounter Summary ---
Author Organization [facility] Healthcare Address [address] [place] [address] Care Team Providers Care Bright Cutter Name Role Phone Jamaal Ibarra DO Primary Care Provider Reason for Visit * Diagnostic Imaging (Routine) - Closed Specialty Diagnoses / Procedures Referred By Liz borrero Referred To Contact Procedures Breast Imaging US Outside Reference Saul Ortiz NP Phone: tel: fax: Referral ID Status Reason Start Date Expiration Date Visits Re quested Visits Authorized [id number] Closed 10/16/2022 11/15/2023 1 1 Encounter Details Date Type Department Care Team (Late st Contact Info) Description 04/29/2020 Hospital Encounter [facility] Radiology [facility] [address] [place] [address] Social History Tobacco Use Types Packs/Day [...] on file Legal Sex Female 12:16 AM LIBRARIAN Gender Identity Not on file Sexual Orientation [...] CDT) Impressions [facility] - 10/16/2022 11:47 AM LIBRARIAN These images are for Reference purposes only and have not been reviewed by [facility] Radiology. There will be no report generated by a [facility] Radiologist. Narrative [facility] - 10/16/2022 11:47 AM LIBRARIAN EXAMINATION: Images For Reference Purposes Only us Saul Ortiz NP IMG MAMMO PROCEDURES Final Result [facility] documented in this encounter Visit Diagnoses Not on filedocumented in this encounter Care Teams Bright Cutter Relationship Specialty Start Date End Date Jamaal Ibarra DO PCP - General 10/22/17 documented as of this encounter
--- OUTSIDE RECORDS SUMMARY | 2020-04-29 00:05 | XMS_ITS | Encounter Summary ---
Author Organization [facility] Healthcare Address [address] [place] [address] Care Team Providers Care Sweatband Flanger Name Role Phone Jamaal Ibarra DO Primary Care Provider Reason for Visit * Diagnostic Imaging (Routine) - Closed Specialty Diagnoses / Procedures Referred By Liz borrero Referred To Contact Procedures Breast Imaging Diagnostic Outside Reference Saul Ortiz NP Phone: tel: fax: Referral ID Status Reason Start Date Expiration Date Visits Re quested Visits Authorized [id number] Closed 10/16/2022 11/15/2023 1 1 Encounter Details Date Type Department Care Team (Late st Contact Info) Description 04/29/2020 12:05 AM CDT Hospital Encounter [facility] [address] [place] [address] Social History Tobacco Use Types Packs/Day Years [...] on file Legal Sex Female 12:16 AM CIGAR SORTER Gender Identity Not on file Sexual Orientation [...] CDT) Impressions [facility] - 10/16/2022 11:47 AM CIGAR SORTER These images are for Reference purposes only and have not been reviewed by [facility]. There will be no report generated by a [facility] Radiologist. Narrative RAD_M[facility]MO[facility] - 10/16/2022 11:47 AM CIGAR SORTER EXAMINATION: Images For Reference Purposes Only us Saul Ortiz NP IMG MAMMO PROCEDURES Final Result [facility] documented in this encounter Visit Diagnoses Not on filedocumented in this encounter Care Teams Sweatband Flanger Relationship Specialty Start Date End Date Jamaal Ibarra DO PCP - General 10/22/17 documented as of this encounter
[2025-07-28 10:56] LABS: Hematocrit 37.5 % (37.0-47.0); Hemoglobin 11.9 g/dL (12.0-15.0); Mean Corpuscular HGB Conc 31.7 g/dl (32-36); Mean Corpuscular Hemoglobin 28.9 pg (26-34); Mean Corpuscular Volume 91.0 fl (80-100); Platelet Count Result 198 k/mm3 (150-375); Red Blood Count 4.12 M/mm3 (4.2-5.4); White Blood Count 9.6 K/mm3 (4.5-10.0)
--- OUTSIDE RECORDS SUMMARY | 2025-07-28 11:02 | XMS_ITS | Encounter Summary ---
Author Organization [facility] Address 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
--- OUTSIDE RECORDS SUMMARY | 2025-07-28 11:02 | XMS_ITS | Encounter Summary ---
Author Organization [facility] Address [address] [place] [address] Phone Care Team Providers Care Tape Maker Name Role Phone Jamaal Ibarra DO Primary Care Provider Encounter Details Date Type Department Care Team (Latest Contact Info) Description 10/14/2019 Orders Only [facility] Scanning, Provider Social History Tobacco Use Types Packs/Day Years Used Date Smoking Tobacco: Never Comments Unknown Sex and Gender Information Value Date Recorded Sex Assigned at Not on file Legal Sex Female 12:16 AM ADVERTISING PHOTOGRAPHER Gender Identity Not on file Sexual Orientation [...] on filedocumented in this encounter Care Teams Tape Maker Relationship Specialty Start Date End Date Jamaal Ibarra DO PCP - General 10/22/17 documented as of this encounter
--- OUTSIDE RECORDS SUMMARY | 2025-07-28 11:02 | XMS_ITS | Clinical Summary ---
Author Organization [facility] Address [address] [place] [address] Care Team Providers Care Director Of Direct Marketing Name Role Phone Jamaal Ibarra DO Primary [...] 09/06/2021 Assessment & Plan (09/06/2021 9:49 AM TRANSPORTATION BROKER): -Fatigue is most likely multifactorial as she [...] 09/16/2017 Assessment & Plan (09/06/2021 9:45 AM TRANSPORTATION BROKER): -Taking weekly Vitamin D -Will repeat Vitamin D level Type 1 diabetes mellitus with hyperglycemia 03/2017 Nocturia 06/12/2017 Gastroesophageal reflux disease 10/27/2014 Seronegative rheumatoid arthritis 10/27/2014 Swelling of hand 10/27/2014 Fibroid 10/21/2014 Fibromyalgia 06/09/2014 Hypertension 04/27/2014 Assessment & Plan (09/06/2021 9:45 AM TRANSPORTATION BROKER): -BP today is 121/81 -Will continue same antihypertensive medications at this time. Hyperlipidemia 04/27/2014 Assessment & Plan (09/06/2021 9:45 AM TRANSPORTATION BROKER): -Will continue statin as it is being [...] 01/22/2023 Assessment & Plan (09/06/2021 9:45 AM TRANSPORTATION BROKER): -Currently taking MDI -A1C on 09/06/21 was [...] 06/12/201701/05 Assessment & Plan (09/06/2021 9:07 AM TRANSPORTATION BROKER): -States she has been off of LT4 for 2 years -Will repeat TFT. Encounters Date Type Department Care Team Description 07/02/2025 11:15 AM CDT Procedure visit [facility] Medicine Ophthalmology 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, [address] [place] [address] Steven Edmonds MD Pre Cert (2024) from Last 3 Months Immunizations Immunization Administration [...] on file Legal Sex Female 12:16 AM TRANSPORTATION BROKER Gender Identity Not on file Sexual Orientation [...] HEMOGLOBIN A1C Routine 10/23/2024 8 :29 AM TRANSPORTATION BROKER Type 1 diabetes mellitus with hyperglycemia (HCC) [...] mg/0.07 mL Route: intravitreal, Site: Left Eye [facility]: [id number], Lot: [id number], Expiration date: 03/06/2026, Waste: 0 mL Medication [...] Sample used today b/c of insurance cost [id number] paperwork signed today, 07/02/25 Steven Edmonds MD [...] * POCT hemoglobin A1c (10/23/2024 8:29 AM TRANSPORTATION BROKER) Hemoglobin A1C, POC 9.1 4.0 - 5.6 % Blood 10/23/2024 8:29 AM TRANSPORTATION BROKER Evelin Monzon NP POINT OF CARE TEST [...] BLOOD ORDERABLES Final Result Performing Organization Address [facility] Co de Phone Number [facility] Department [place] [address] * Albumin Creatinine Ratio, Urine (01/24/2024) Urine Sarah Haskins MD LAB URINE ORDERABLES Final Resu lt Performing Organization Address [facility]/ZIP Co de Phone Number EXTERNAL LAB * TSH (01/24/2024) Blood us Sarah Haskins MD LAB BLOOD ORDERABLES Final Resu lt Performing Organization Address City/[facility]/ZIP Co de Phone Number EXTERNAL LAB * Lipid panel (01/24/2024) Blood Sarah Haskins MD LAB BLOOD ORDERABLES Final Resu lt Performing Organization Address [facility]/ZIP Co de Phone Number EXTERNAL LAB [...] nipple by physician COMPARISON: Outside exams from [place] 09/13/2022to 07/08/2019 TECHNIQUE: Full field digital mammographic [...] her questions were answered. us Saul Ortiz ELECTRONIC INSTRUMENT TRADES WORKER IMG MAMMO PROCEDURES Final Result * Hepatitis [...] 07/12/2021 5:08 PM CDT Performed at: - [address] [id number] Digital Media Analyst: Link Myles PhD, Phone: [phone] us Lorrie Saavedra MD LAB MICROBIOLOGY - GENERAL ORD ERABLES Final Result Performing Organization Address City/State/[facility] Co de Phone Number [facility] - 01 from Last 3 Months or Most Recently Relevant to Health Maintenance Insurance [facility] CHOICE PLUS WORKERS COMPENSATION GENERIC WORKERS COMPENSATION GENERIC Care Teams Director Of Direct Marketing Relationship Specialty Start Date End Date Jamaal Ibarra DO PCP - General 10/22/17
--- OUTSIDE RECORDS SUMMARY | 2025-07-28 11:02 | XMS_ITS | Encounter Summary ---
Author Organization [facility] Address [address] [place] [address] Care Team Providers Care Racquet Maker Name Role Phone Jamaal Ibarra DO Primary Care Provider Encounter Details Date Type Department Care Team (Late st Contact Info) Description 07/28/2025 External Device Data [facility] ABSTRACTION Provider, Abstract [...] on file Legal Sex Female 3:50 AM NET MAKING SUPERVISOR Gender Identity Not on file Sexual Orientation Not on file documented as of this encounter Plan of Treatment Not on file documented as of this encounter Visit Diagnoses Not on filedocumented in this encounter Additional Health Concerns Assessment Noted Time PHQ-9 Depression Total Score: 2 01/30/20 25 12:50 PM CDT documented as of this encounter Care Teams Racquet Maker Relationship Specialty Start Date End Date Jamaal Ibarra DO [address] [address] PCP - General Internal Medicine 07/11/18 documented as of this encounter
--- OUTSIDE RECORDS SUMMARY | 2025-07-28 11:03 | XMS_ITS | Encounter Summary ---
Author Organization [facility] Address [address] [place] [address] Care Team Providers Care Batching Operator Name Role Phone Jamaal Ibarra DO Primary Care Provider Encounter Details Date Type Department Care Team (Latest Contact Info) Description 03/23/2002 Outpatient Historical [facility] [place] [address] [place] [address] MENSTRUAL DISORDER NEC (Primary Dx) Social History Tobacco Use Types Packs/Day Years Used Date Smoking Tobacco: Never Assessed Comments Unknown Sex and Gender Information Value Date Recorded Sex Assigned at Not on file Legal Sex Female 3:50 AM INTERNET SYSTEMS ADMINISTRATOR Gender Identity Not on file Sexual Orientation [...] documented as of this encounter Care Teams Batching Operator Relationship Specialty Start Date End Date Jamaal Ibarra DO [address] [address] [place] [address] PCP - General Internal Medicine 07/11/18 documented as of this encounter
--- OUTSIDE RECORDS SUMMARY | 2025-07-28 11:03 | XMS_ITS | Clinical Summary ---
Author Organization [facility] Address [address] [place] [address] Care Team Providers Care Lap Cutter Name Role Phone Jamaal Ibarra DO [...] Encounters Date Type Department Care Team Description 07/28/2025 External Device Data [facility] ABSTRACTION Provider, Abstract 07/27/2025 External Device Data [facility] ABSTRACTION Provider, Abstract 07/13/2025 External Device Data [facility] ABSTRACTION Provider, [...] on file Legal Sex Female 3:50 AM MOVING CONSULTANT Gender Identity Not on file Sexual [...] 8.4(H) <5.7 % 01/29/2025 3:35 PM CDT [facility] EST. AVG GLUCOSE, A1C 194 mg/dL 01/29/2025 3:35 PM CDT [facility] Bleachers [facility] Blood Venipuncture / Unknown 01/29/2025 2:08 PM CDT 01/29/2025 3:15 PM CDT [facility] LABORATORY [facility] - 01/29/2025 3:35 PM CDT HGB A1C INTERPRETATION NORMAL: <5.7% PRE-DIABETES: 5.7 - 6.4% DIABETES: 6.5% OR GREATER Michael Hoskins MD CHEMISTRY ORDERABLES Final R esult [facility] MONISHA# [id number] [address] [place] [address] from Last 3 Months or Most Recently Relevant to Health Maintenance Insurance BS [employer] Commercial Advance Directives For more information, please contact: [phone] * Full Code (Latest Code Status on File) Date Activated Date Inactivated Comments 01/29/2025 1:42 PM 02/02/2025 12:23 PM Care Teams Lap Cutter Relationship Specialty Start Date End Date Jamaal Ibarra DO [address] [facility] [address] [place] [address] PCP - General Internal Medicine 07/11/18
--- OUTSIDE RECORDS SUMMARY | 2025-07-28 11:03 | XMS_ITS | Clinical Summary ---
Author Organization [facility] Address [address] [place] [address] Care Team Providers Care Pinking Machine Operator Name Role Phone Lebron Pugh V. DO Unavailable Jamaal Ibarra DO Primary Care Provider Source Comments [facility],non-owned Affiliates and Associated Physician Practices is amultiple site organization consisting of ambulatory clinics and hospital sitesin [place], [place], [place] and [place]. This disclosure is being madepursuant to the Care Everywhere program and may not contain all information available regarding this patient. Last updated 18.[facility] Allergies Active Allergy Reactions [...] tablet 2 Active vitamin D, ergocalciferol, (DRISDOL) 25014 UNITS capsule 1 Active gabapentin (NEURONTIN) 300 MG capsule 2 Active simvastatin (ZOCOR) 20 MG tablet 1 Active traMADol (ULTRAM) 50 MG tablet 1 014 Active traZODone (DESYREL) 50 MG tablet 6 Active zolpidem (AMBIEN) 10 MG tablet 5 Active megestrol (MEGACE) 40 MG tablet Take 1 Tab by mouth once daily. 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 Not on file Not on file Last Filed Vital Signs Vital Sign Reading Time Taken Comments Blood Pressure 126/74 10/21/2014 11:57 AM JOINERY MACHINIST Pulse 102 09/16/2013 1:06 PM JOINERY MACHINIST Temperature 36.8 C (98.2 F) 09/16/2013 1:06 PM JOINERY MACHINIST Respiratory Rate 20 09/16/2013 1:06 PM JOINERY MACHINIST Oxygen Saturation 98% 09/16/2013 1:06 PM JOINERY MACHINIST Inhaled Oxygen Concentration - - Weight 89.8 kg (198 lb) 10/21/2014 11:57 AM JOINERY MACHINIST Height 172.7 cm (5' 8) 10/21/2014 11:57 AM JOINERY MACHINIST Body Mass Index 30.11 10/21/2014 11:57 AM JOINERY MACHINIST Plan of Treatment Health Maintenance Due Date [...] MAMMO BILAT SCREENING Routine 09/22/2013 8:09 AM JOINERY MACHINIST Screening COMPREHENSIVE METABOLIC PANEL Routine 08/22/2013 8:00 AM JOINERY MACHINIST DM w/o Complication Type II, Uncontrolled HTN (hypertension), benign Abdominal pain, RUQ (right upper quadrant) Ketonuria HEMOGLOBIN A1C Routine 08/22/2013 8:00 AM JOINERY MACHINIST DM w/o Complication Type II, Uncontrolled MICROALB/CREAT RATIO URINE RANDOM PANEL Routine 08/21/2013 9:29 AM JOINERY MACHINIST DM w/o Complication Type II, Uncontrolled from Last 3 Months or Most Recently Relevant to Health Maintenance Results * MAMM SCREENING DIGITAL IMAGE BILAT G0202 (09/22/2013 8:09 AM JOINERY MACHINIST) Anatomical Region Laterality Modality Breast Bilateral Mammography 09/22/2013 11:5 3 AM JOINERY MACHINIST Impressions 09/22/2013 11:56 AM JOINERY MACHINIST No malignant abnormality identified. No significant change. BI-RADS category 1. Negative. RECOMMENDATIONS: Routine mammograms in one year. Narrative 09/22/2013 11:56 AM JOINERY MACHINIST Screening mammogram: HISTORY: Screening mammogram. Two views [...] * (ABNORMAL) HEMOGLOBIN A1C (08/22/2013 8:00 AM JOINERY MACHINIST) Hemoglobin A1c 12.6(H) <5.7 % of total [...] of diabetes for children. Test Performed at: [facility] [address] [place] [address] PAPO BENNETT DO,MPH Whole blood specimen (specimen) BLOOD SPECIMEN / Unknown 08/22/2013 4:53 AM JOINERY MACHINIST Salma Hunt PHD INTERN-FLIGHT SERVICE SPECIALIST LAB - CHEMISTRY ORDERA BLES Final Result [facility] [address] [place] [address] * (ABNORMAL) COMPREHENSIVE METABOLIC PANEL (08/22/2013 8:00 AM JOINERY MACHINIST) Glucose 312(H) 65 - 99 mg/dL [facility] [...] 29 U/L [facility] Comment: Test Performed at: [facility] [employer] [address] PAPO BENNETT DO,MPH Blood specimen (specimen) BLOOD SPECIMEN / Unknown 08/22/2013 4:53 AM JOINERY MACHINIST Salma Hunt PHD INTERN-FLIGHT SERVICE SPECIALIST LAB - CHEMISTRY ORDERA BLES Final Result [facility] [address] [place] [address] * (ABNORMAL) MICROALB/CREAT RATIO URINE RANDOM PANEL (08/21/2013 9:29 AM JOINERY MACHINIST) Creatinine Urine 129 20 - 320 mg/dL [...] within a diagnostic category. Test Performed at: [facility] [address] PAPO BENNETT DO,MPH Urine specimen (specimen) URINE SPECIMEN OBTAINED BY CLEAN CATCH PROCEDURE / Unknown 08/21/2013 9:29 AM JOINERY MACHINIST 08/22/2013 4:16 AM JOINERY MACHINIST Salma Hunt PHD INTERN-FLIGHT SERVICE SPECIALIST LAB - URINE CHEMISTRY ORDERABLES Final Result [facility] [address] [place] [address] from Last 3 Months or Most Recently Relevant to Health Maintenance Insurance ANTHEM ANTHEM Advance Directives * FULL RESUSCITATION (Latest Code Status on File) Date Activated Date Inactivated Comments 05/06/2011 1:35 AM 05/08/2011 5:46 AM Care Teams Pinking Machine Operator Relationship Specialty Start Date End Date Jamaal Ibarra DO [address] [place] [address] PCP - General 06/01/21 Lebron Pugh DO [address] [place] [address] Oncology 06/23/07
--- OUTSIDE RECORDS SUMMARY | 2025-07-28 11:03 | XMS_ITS | Encounter Summary ---
Author Organization [facility] Address [address] [place] [address] Phone Care Team Providers Care Housing Management Officer Name Role Phone Jamaal Ibarra DO Primary Care Provider Encounter Details Date Type Department Care Team (Late st Contact Info) Description 10/18/[address] 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
--- OUTSIDE RECORDS SUMMARY | 2025-07-28 11:03 | XMS_ITS | Encounter Summary ---
Author Organization [facility] Address [address] [place] [address] Phone Care Team Providers Care Engrosser Name Role Phone Jamaal Ibarra DO Primary Care Provider Encounter Details Date Type Department Care Team (Late st Contact Info) Description 08/03/2021 Orders Only [facility] Medicine Rheumatology [address] [facility] Advanced Medicine 5th [place] [address] [place] [address] Jana Medley CMA Social History Tobacco Use Types Packs/Day Years Used Date Smoking Tobacco: Never Comments Unknown Sex and Gender Information Value Date Recorded Sex Assigned at Not on file Legal Sex Female 12:16 AM JAWBONE BREAKER Gender Identity Not on file Sexual Orientation Not on file documented as of this encounter Plan of Treatment Not on file documented as of this encounter Visit Diagnoses Not on filedocumented in this encounter Care Teams Engrosser Relationship Specialty Start Date End Date Jamaal Ibarra DO PCP - General 10/22/17 documented as of this encounter
[2025-07-28 11:21] LABS: Alanine Aminotransferase 19 U/L (6-35); Albumin Level 3.6 g/dL (3.5-5.1); Alkaline Phosphatase 104 U/L (38-126); Anion Gap 9 mmol/L (4-12); Aspartate Amino Transferase 23 U/L (14-36); Bilirubin,Total 0.5 mg/dL (0.2-1.3); Blood Urea Nitrogen 34 mg/dL (7-17); CRP < 0.5 mg/dL (<1.0); Calcium 9.7 mg/dL (8.4-10.2); Carbon Dioxide 25 mmol/L (22-30); Chloride 103 mmol/L (98-107); Estimated Glomerular Filt Rate 21; Glucose 188 mg/dL (65-110); Potassium 3.1 mmol/L (3.4-5.0); Sodium 137 mmol/L (137-145); Total Protein 6.4 g/dL (6.3-8.2)
== END 2025-07-28 09:39 | disposition home or self-care (01) ==
LOC: ANHLAB 09:39
PROVIDERS: PCP Internal Medicine; Visit Provider Nurse Practitioner Family
DX: K52.9 Noninfective gastroenteritis and colitis, unspecified (principal)
CPT/HCPCS: 36415; 80053; 85027; 86140

== ENCOUNTER 2025-07-30 02:30 | Day surgery (SDC) | payer OTHER, SELFPAY ==
--- OUTSIDE RECORDS SUMMARY | 2019-07-08 | XMS_ITS | Encounter Summary ---
Author Organization [facility] Healthcare Address [address] [place] [address] Care Team Providers Care Agronomy Location Manager Name Role Phone Jamaal Ibarra DO Primary Care Provider Reason for Visit * Diagnostic Imaging (Routine) - Closed Specialty Diagnoses / Procedures Referred By Liz borrero Referred To Contact Procedures Breast Imaging Screening Outside Reference Saul Ortiz NP Phone: tel: fax: Referral ID Status Reason Start Date Expiration Date Visits Re quested Visits Authorized [id number] Closed 10/16/2022 11/15/2023 1 1 Encounter Details Date Type Department Care Team (Late st Contact Info) Description 07/08/2019 Hospital Encounter [facility]iology [facility] [place] [address] Social History Tobacco Use Types [...] on file 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 There will be no report generated by a [facility] Radiologist. Narrative [facility] - 10/16/2022 11:48 AM SEASONING MIXER EXAMINATION: Images For Reference Purposes Only us Saul Ortiz NP IMG MAMMO PROCEDURES Final Result [facility] documented in this encounter Visit Diagnoses Not on filedocumented in this encounter Care Teams Agronomy Location Manager Relationship Specialty Start Date End Date Jamaal Ibarra DO PCP - General 10/22/17 documented as of this encounter
--- OUTSIDE RECORDS SUMMARY | 2019-07-15 | XMS_ITS | Encounter Summary ---
Author Organization [facility] Healthcare Address [address] [place] [address] Care Team Providers Care Instructional Media Services Technician Name Role Phone Jamaal Ibarra DO Primary Care Provider Reason for Visit * Diagnostic Imaging (Routine) - Closed Specialty Diagnoses / Procedures Referred By Liz borrero Referred To Contact Procedures Breast Imaging US Outside Reference Salu Ortiz NP Phone: tel: fax: Referral ID Status Reason Start Date Expiration Date Visits Re quested Visits Authorized [id number] Closed 10/16/2022 11/15/2023 1 1 Encounter Details Date Type Department Care Team (Late st Contact Info) Description 07/15/2019 Hospital Encounter [facility]iology [facility]) [facility] [place] [address] Social History Tobacco Use Types [...] on file Legal Sex Female 12:16 AM LEAF COVERER Gender Identity Not on file Sexual Orientation [...] CDT) Impressions RAD[facility] - 10/16/2022 11:47 AM LEAF COVERER These images are for Reference purposes only and have not been reviewed by [facility] Radiology. There will be no report generated by a [facility] Radiologist. Narrative RAD_M[facility] - 10/16/2022 11:47 AM LEAF COVERER EXAMINATION: Images For Reference Purposes Only us Saul Ortiz NP IMG MAMMO PROCEDURES Final Result [facility] documented in this encounter Visit Diagnoses Not on filedocumented in this encounter Care Teams Instructional Media Services Technician Relationship Specialty Start Date End Date Jamaal Ibarra DO PCP - General 10/22/17 documented as of this encounter
--- OUTSIDE RECORDS SUMMARY | 2019-07-15 00:05 | XMS_ITS | Encounter Summary ---
Author Organization [facility] Healthcare Address [address] [place] [address] Care Team Providers Care Property Accountant Name Role Phone Jamaal Ibarra DO Primary Care Provider Reason for Visit * Diagnostic Imaging (Routine) - Closed Specialty Diagnoses / Procedures Referred By Liz borrero Referred To Contact Procedures Breast Imaging Diagnostic Outside Reference Saul Ortiz NP Phone: tel: fax: Referral ID Status Reason Start Date Expiration Date Visits Re quested Visits Authorized [id number] Closed 10/16/2022 11/15/2023 1 1 Encounter Details Date Type Department Care Team (Late st Contact Info) Description 07/15/2019 12:05 AM CDT Hospital Encounter [facility] Radiology [facility] [address] [place] [address] Social History Tobacco Use Types Packs/Day Years [...] on file Legal Sex Female 12:16 AM TRADING MANAGER Gender Identity Not on file Sexual Orientation [...] CDT) Impressions [facility] - 10/16/2022 11:47 AM TRADING MANAGER These images are for Reference purposes only and have not been reviewed by [facility] Radiology. There will be no report generated by a [facility] Radiologist. Narrative RAD_M[facility] - 10/16/2022 11:47 AM TRADING MANAGER EXAMINATION: Images For Reference Purposes Only us Saul Ortiz NP IMG MAMMO PROCEDURES Final Result [facility] documented in this encounter Visit Diagnoses Not on filedocumented in this encounter Care Teams Property Accountant Relationship Specialty Start Date End Date Jamaal Ibarra DO PCP - General 10/22/17 documented as of this encounter
--- OUTSIDE RECORDS SUMMARY | 2020-04-29 | XMS_ITS | Encounter Summary ---
Author Organization [facility] Healthcare Address [address] [place] [address] Care Team Providers Care Plating Operator Name Role Phone Jamaal Ibarra DO Primary Care Provider Reason for Visit * Diagnostic Imaging (Routine) - Closed Specialty Diagnoses / Procedures Referred By Liz borrero Referred To Contact Procedures Breast Imaging US Outside Reference Saul Ortiz NP Phone: tel: fax: Referral ID Status Reason Start Date Expiration Date Visits Re quested Visits Authorized [id number] Closed 10/16/2022 11/15/2023 1 1 Encounter Details Date Type Department Care Team (Late st Contact Info) Description 04/29/2020 Hospital Encounter [facility]iology [facility] [address] [place] [address] Social History Tobacco Use Types Packs/Day [...] on file 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 There will be no report generated by a [facility] Radiologist. Narrative RAD[facility] - 10/16/2022 11:47 AM GRAIN TRIMMER EXAMINATION: Images For Reference Purposes Only us Saul Ortiz NP IMG MAMMO PROCEDURES Final Result [facility] documented in this encounter Visit Diagnoses Not on filedocumented in this encounter Care Teams Plating Operator Relationship Specialty Start Date End Date Jamaal Ibarra DO PCP - General 10/22/17 documented as of this encounter
--- OUTSIDE RECORDS SUMMARY | 2020-04-29 00:05 | XMS_ITS | Encounter Summary ---
Author Organization [facility] Healthcare Address [address] [place] [address] Care Team Providers Care Lion Tamer Name Role Phone Jamaal Ibarra DO Primary Care Provider Reason for Visit * Diagnostic Imaging (Routine) - Closed Specialty Diagnoses / Procedures Referred By Liz borrero Referred To Contact Procedures Breast Imaging Diagnostic Outside Reference Saul Ortiz NP Phone: tel: fax: Referral ID Status Reason Start Date Expiration Date Visits Re quested Visits Authorized [id number] Closed 10/16/2022 11/15/2023 1 1 Encounter Details Date Type Department Care Team (Late st Contact Info) Description 04/29/2020 12:05 AM CDT Hospital Encounter [facility] Radiology [facility] [address] [place] [address] Social History Tobacco Use Types Packs/Day Years [...] on file Legal Sex Female 12:16 AM INFORMATION STRATEGIST Gender Identity Not on file Sexual Orientation [...] CDT) Impressions [facility] - 10/16/2022 11:47 AM INFORMATION STRATEGIST These images are for Reference purposes only and have not been reviewed by [facility]iology. There will be no report generated by a [facility] Radiologist. Narrative RAD_M[facility] - 10/16/2022 11:47 AM INFORMATION STRATEGIST EXAMINATION: Images For Reference Purposes Only us Saul Ortiz NP IMG MAMMO PROCEDURES Final Result [facility] documented in this encounter Visit Diagnoses Not on filedocumented in this encounter Care Teams Lion Tamer Relationship Specialty Start Date End Date Jamaal Ibarra DO PCP - General 10/22/17 documented as of this encounter
[2025-07-28 13:18] VITALS: BMI 40.4
--- OUTSIDE RECORDS SUMMARY | 2025-07-30 02:33 | XMS_ITS | Clinical Summary ---
Author Organization [facility] Address [address] [place] [address] Care Team Providers Care Soft Boarder Name Role Phone Lebron Pugh V. DO Unavailable Jamaal Ibarra DO Primary Care Provider Source Comments [facility],non-owned Affiliates and Associated Physician Practices is amultiple site organization consisting of ambulatory clinics and hospital sitesin [place], [place], [place] and [place]. This disclosure is being madepursuant to the Care Everywhere program and may not contain all information available regarding this patient. Last updated 18.[facility] Allergies Active Allergy Reactions Criticality [...] tablet 2 Active vitamin D, ergocalciferol, (DRISDOL) 65915 UNITS capsule 1 Active gabapentin (NEURONTIN) 300 MG capsule 2 Active simvastatin (ZOCOR) 20 MG tablet 1 Active traMADol (ULTRAM) 50 MG tablet 1 014 Active traZODone (DESYREL) 50 MG tablet 6 Active zolpidem (AMBIEN) 10 MG tablet 5 Active megestrol (MEGACE) 40 MG tablet Take 1 Tab by mouth once daily. 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 Not on file Last Filed Vital Signs Vital Sign Reading Time Taken Comments Blood Pressure 126/74 10/21/2014 11:57 AM BUCK SWAMPER Pulse 102 09/16/2013 1:06 PM BUCK SWAMPER Temperature 36.8 C (98.2 F) 09/16/2013 1:06 PM BUCK SWAMPER Respiratory Rate 20 09/16/2013 1:06 PM BUCK SWAMPER Oxygen Saturation 98% 09/16/2013 1:06 PM BUCK SWAMPER Inhaled Oxygen Concentration - - Weight 89.8 kg (198 lb) 10/21/2014 11:57 AM BUCK SWAMPER Height 172.7 cm (5' 8) 10/21/2014 11:57 AM BUCK SWAMPER Body Mass Index 30.11 10/21/2014 11:57 AM BUCK SWAMPER Plan of Treatment Health Maintenance Due Date [...] MAMMO BILAT SCREENING Routine 09/22/2013 8:09 AM BUCK SWAMPER Screening COMPREHENSIVE METABOLIC PANEL Routine 08/22/2013 8:00 AM BUCK SWAMPER DM w/o Complication Type II, Uncontrolled HTN (hypertension), benign Abdominal pain, RUQ (right upper quadrant) Ketonuria HEMOGLOBIN A1C Routine 08/22/2013 8:00 AM BUCK SWAMPER DM w/o Complication Type II, Uncontrolled MICROALB/CREAT RATIO URINE RANDOM PANEL Routine 08/21/2013 9:29 AM BUCK SWAMPER DM w/o Complication Type II, Uncontrolled from Last 3 Months or Most Recently Relevant to Health Maintenance Results * MAMM SCREENING DIGITAL IMAGE BILAT G0202 (09/22/2013 8:09 AM BUCK SWAMPER) Anatomical Region Laterality Modality Breast Bilateral Mammography 09/22/2013 11:5 3 AM BUCK SWAMPER Impressions 09/22/2013 11:56 AM BUCK SWAMPER No malignant abnormality identified. No significant change. BI-RADS category 1. Negative. RECOMMENDATIONS: Routine mammograms in one year. Narrative 09/22/2013 11:56 AM BUCK SWAMPER Screening mammogram: HISTORY: Screening mammogram. Two views [...] * (ABNORMAL) HEMOGLOBIN A1C (08/22/2013 8:00 AM BUCK SWAMPER) Hemoglobin A1c 12.6(H) <5.7 % of total [...] of diabetes for children. Test Performed at: [facility] [address] [place] [address] PAPO BENNETT DO,MPH Whole blood specimen (specimen) BLOOD SPECIMEN / Unknown 08/22/2013 4:53 AM BUCK SWAMPER Salma Hunt REELING MACHINE SETUP OPERATOR-FORMING OPERATOR LAB - CHEMISTRY ORDERA BLES Final Result [facility] [address] [place] [address] * (ABNORMAL) COMPREHENSIVE METABOLIC PANEL (08/22/2013 8:00 AM BUCK SWAMPER) Glucose 312(H) 65 - 99 mg/dL [facility] [...] 29 U/L [facility] Comment: Test Performed at: [facility] [place] [facility] [address] PAPO BENNETT DO,MPH Blood specimen (specimen) BLOOD SPECIMEN / Unknown 08/22/2013 4:53 AM BUCK SWAMPER Salma Hunt REELING MACHINE SETUP OPERATOR-FORMING OPERATOR LAB - CHEMISTRY ORDERA BLES Final Result [facility] [address] [place] [address] * (ABNORMAL) MICROALB/CREAT RATIO URINE RANDOM PANEL (08/21/2013 9:29 AM BUCK SWAMPER) Creatinine Urine 129 20 - 320 mg/dL [...] within a diagnostic category. Test Performed at: [facility] [place] [facility] [address] PAPO BENNETT DO,MPH Urine specimen (specimen) URINE SPECIMEN OBTAINED BY CLEAN CATCH PROCEDURE / Unknown 08/21/2013 9:29 AM BUCK SWAMPER 08/22/2013 4:16 AM BUCK SWAMPER Salma Hunt REELING MACHINE SETUP OPERATOR-FORMING OPERATOR LAB - URINE CHEMISTRY ORDERABLES Final Result [facility] [address] [place] [address] from Last 3 Months or Most Recently Relevant to Health Maintenance Insurance ANTHEM ANTHEM Advance Directives * FULL RESUSCITATION (Latest Code Status on File) Date Activated Date Inactivated Comments 05/06/2011 1:35 AM 05/08/2011 5:46 AM Care Teams Soft Boarder Relationship Specialty Start Date End Date Jamaal Ibrara DO [address] [place] [address] PCP - General 06/01/21 Lebron Pugh DO [address] [place] [address] Oncology 06/23/07
--- OUTSIDE RECORDS SUMMARY | 2025-07-30 02:33 | XMS_ITS | Encounter Summary ---
Author Organization [facility] Address [address] [place] [address] Phone Care Team Providers Care Guest Associate Name Role Phone Jamaal Ibarra DO Primary Care Provider Encounter Details Date Type Department Care Team (Late st Contact Info) Description 10/18/2021 Telephone [facility] Medicine Rheumatology [address] [place] [address] 5th [place] [address] [place] [phone] Era Taylor CMA Social History Tobacco Use Types Packs/Day Years Used Date Smoking Tobacco: Never Smokeless Tobacco: Never Comments Unknown Sex and Gender Information Value Date Recorded Sex Assigned at Not on file Legal Sex Female 12:16 AM API PRODUCT MANAGER Gender Identity Not on file Sexual Orientation Not on file documented as of this encounter Plan of Treatment Not on file documented as of this encounter Visit Diagnoses Not on filedocumented in this encounter Care Teams Guest Associate Relationship Specialty Start Date End Date Jamaal Ibarra DO PCP - General 10/22/17 documented as of this encounter
--- OUTSIDE RECORDS SUMMARY | 2025-07-30 02:33 | XMS_ITS | Encounter Summary ---
Author Organization [facility] Address [address] [place] [address] Phone Care Team Providers Care Donor Processor Name Role Phone Jamaal Ibarra DO Primary Care Provider Encounter Details Date Type Department Care Team (Latest Contact Info) Description 10/14/2019 Orders Only [facility] Scanning, Provider Social History Tobacco Use Types Packs/Day Years Used Date Smoking Tobacco: Never Comments Unknown Sex and Gender Information Value Date Recorded Sex Assigned at Not on file Legal Sex Female 12:16 AM COIL MAKER Gender Identity Not on file Sexual [...] on filedocumented in this encounter Care Teams Donor Processor Relationship Specialty Start Date End Date Jamaal Ibarra DO PCP - General 10/22/17 documented as of this encounter
--- OUTSIDE RECORDS SUMMARY | 2025-07-30 02:33 | XMS_ITS | Clinical Summary ---
Author Organization [facility] Address [address] [place] [address] Care Team Providers Care Disaster Recovery Specialist Name Role Phone Jamaal Ibarra DO [...] 09/06/2021 Assessment & Plan (09/06/2021 9:49 AM SINGING MESSENGER): -Fatigue is most likely multifactorial as she [...] 09/16/2017 Assessment & Plan (09/06/2021 9:45 AM SINGING MESSENGER): -Taking weekly Vitamin D -Will repeat Vitamin D level Type 1 diabetes mellitus with hyperglycemia 03/2017 Nocturia 06/12/2017 Gastroesophageal reflux disease 10/27/2014 Seronegative rheumatoid arthritis 10/27/2014 Swelling of hand 10/27/2014 Fibroid 10/21/2014 Fibromyalgia 06/09/2014 Hypertension 04/27/2014 Assessment & Plan (09/06/2021 9:45 AM SINGING MESSENGER): -BP today is 121/81 -Will continue same antihypertensive medications at this time. Hyperlipidemia 04/27/2014 Assessment & Plan (09/06/2021 9:45 AM SINGING MESSENGER): -Will continue statin as it is being [...] 01/22/2023 Assessment & Plan (09/06/2021 9:45 AM SINGING MESSENGER): -Currently taking MDI -A1C on 09/06/21 was [...] 06/12/201701/05 Assessment & Plan (09/06/2021 9:07 AM SINGING MESSENGER): -States she has been off of LT4 for 2 years -Will repeat TFT. Encounters Date Type Department Care Team Description 07/02/2025 11:15 AM CDT Procedure visit [facility] Medicine Ophthalmology 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, [address] [place] [address] Steven Edmonds MD Pre Cert [...] on file Legal Sex Female 12:16 AM SINGING MESSENGER Gender Identity Not on file Sexual Orientation [...] HEMOGLOBIN A1C Routine 10/23/2024 8 :29 AM SINGING MESSENGER Type 1 diabetes mellitus with hyperglycemia (HCC) [...] mg/0.07 mL Route: intravitreal, Site: Left Eye [facility]: [phone], Lot: [id number], Expiration date: 03/06/2026, Waste: 0 mL Medication [...] Sample used today b/c of insurance cost [id number] paperwork signed today, 07/02/25 Steven Edmonds MD [...] * POCT hemoglobin A1c (10/23/2024 8:29 AM SINGING MESSENGER) Hemoglobin A1C, POC 9.1 4.0 - 5.6 % Blood 10/23/2024 8:29 AM SINGING MESSENGER Evelin Monzon NP POINT OF CARE TEST [...] BLOOD ORDERABLES Final Result Performing Organization Address [facility] Co de Phone Number [facility] Department [place] [address] * Albumin Creatinine Ratio, Urine (01/24/2024) Urine Sarah Haskins MD LAB URINE ORDERABLES Final Resu lt Performing Organization Address [facility]/ZIP Co de Phone Number EXTERNAL LAB * TSH (01/24/2024) Blood us Sarah Haskins MD LAB BLOOD ORDERABLES Final Resu lt Performing Organization Address City/[facility]/ZIP Co de Phone Number EXTERNAL LAB * Lipid panel (01/24/2024) Blood Sarah Haskins MD LAB BLOOD ORDERABLES Final Resu lt Performing Organization Address [facility]/ZIP Co de Phone Number EXTERNAL [...] nipple by physician COMPARISON: Outside exams from [facility] 09/13/2022to 07/08/2019 TECHNIQUE: Full field digital mammographic [...] her questions were answered. us Saul Ortiz SAP DATA ARCHITECT IMG MAMMO PROCEDURES Final Result * Hepatitis [...] 07/12/2021 5:08 PM CDT Performed at: - [address] [id number] [employer]: Link Myles PhD, Phone: [phone] us Lorrie Saavedra MD LAB MICROBIOLOGY - GENERAL ORD ERABLES Final Result Performing Organization Address City/State/[facility] Co de Phone Number [facility] - 01 from Last 3 Months or Most Recently Relevant to Health Maintenance Insurance [facility] CHOICE PLUS WORKERS COMPENSATION GENERIC WORKERS COMPENSATION GENERIC Care Teams Disaster Recovery Specialist Relationship Specialty Start Date End Date Jamaal Ibarra DO PCP - General 10/22/17
--- OUTSIDE RECORDS SUMMARY | 2025-07-30 02:33 | XMS_ITS | Clinical Summary ---
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 AVG GLUCOSE, A1C 194 mg/dL 01/29/2025 3:35 PM CDT [facility] [employer] [facility] Blood Venipuncture / Unknown 01/29/2025 2:08 PM CDT 01/29/2025 3:[address] [facility]AT[facility] - 01/29/2025 3:35 PM CDT HGB A1C INTERPRETATION NORMAL: <5.7% PRE-DIABETES: 5.7 - 6.4% DIABETES: 6.5% OR GREATER Michael Hoskins MD CHEMISTRY ORDERABLES Final R esult [facility] MONISHA# [id number] [address] [place] [id number] from Last 3 Months or Most Recently Relevant to Health Maintenance Insurance BS [employer] Commercial Advance Directives For more information, please contact: [phone] * Full Code (Latest Code Status on File) Date Activated Date Inactivated Comments 01/29/2025 1:42 PM 02/02/2025 12:23 PM Care Teams Ops Manager Relationship Specialty Start Date End Date Jamaal Ibarra DO [address] [place] [address] PCP - General Internal Medicine 07/11/18
--- OUTSIDE RECORDS SUMMARY | 2025-07-30 02:33 | XMS_ITS | Encounter Summary ---
Author Organization [facility] Address [address] [place] [address] Phone Care Team Providers Care Regional Vice President Surgical Sales Name Role Phone Jamaal Ibarra DO Primary Care Provider Encounter Details Date Type Department Care Team (Late st Contact Info) Description 08/03/2021 Orders Only [facility] Medicine Rheumatology [address] Advanced Medicine 5th [place] [address] [place] [address] Jana Medley CMA Social History Tobacco Use Types Packs/Day Years Used Date Smoking Tobacco: Never Comments Unknown Sex and Gender Information Value Date Recorded Sex Assigned at Not on file 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
--- OUTSIDE RECORDS SUMMARY | 2025-07-30 02:33 | XMS_ITS | Clinical Summary ---
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 Results should be integrated into clinical context for interpretation. URINE SPECIMEN / Unknown 05/25/2025 1:35 AM CDT us Fazal Brower MD,PHD URINE ORDERABLES Final Res ult Performing Organization Address [facility]/ZIP Co de Phone Number [facility] [address] [place] [address], * CREATININE URINE RANDOM (05/25/2025 1:35 AM CDT) CREATININE (U) 84.4 28 - 217 MG/DL 05/25/2025 4:18 AM CDT [facility] URINE SPECIMEN / Unknown 05/25/2025 1:35 AM CDT us Fazal Brower MD,PHD URINE ORDERABLES Final Res ult [facility] [address] [place] [address], [place] [phone] * ECG 12 lead (05/24/2025 9:39 PM CDT) Only the most recent of2 resultswithin the time period is included. 05/24/2025 9:39 PM CDT Narrative [facility] - 05/26/2025 9:[address] [facility] Test Date: 2025-05-24 Pat Name: SILVA LONDONO Department: 41 Room: EXAM12 Gender: Female Radar Tester: [id number] : 1975 Requested By: INDERJIT STEWART Order Number: [id number] Reading AKHIL Manzanares Measurements Intervals [place] Rate: 64 P: 147 FL: 200 QRS: -34 QRSD: 142 T: 149 [...] Manzanares MD - 05/26/2025 [facility] [address] [place] [address] Test Date: 2025-05-24 Pat Name: SILVA LONDONO Department: 41 Room: EXAM12 Gender: Female Radar Tester: [id number] : 1975 Requested By: INDERJIT STEWART Order Number: [id number] Reading AKHIL Manzanares Measurements Intervals [place] Rate: 64 P: 147 FL: 200 QRS: -34 QRSD: 142 T: 149 [...] Brower MD,PHD ECG ORDERABLES Final Resu lt [facility] * (ABNORMAL) URINALYSIS (05/24/2025 8:25 PM CDT) SPECIMEN TYPE URINE CLEAN CATCH 05/24/2025 8:25 PM CDT [facility] COLOR (U) LIGHT YELLOW 05/24/2025 8:50 PM CDT [facility] TRANSPARENCY CLEAR 05/24/2025 8:50 PM CDT [facility] SPECIFIC GRAVITY (U) 1.015 1.001 - 1.030 05/24/2025 8:50 PM CDT [facility] U PH 6.0 5.0 - 9.0 05/24/2025 8:50 PM CDT [facility] LEUKOCYTES (U) NEGATIVE NEGATIVE 05/24/2025 8:50 PM CDT [facility] NITRITES NEGATIVE NEGATIVE 05/24/2025 8:50 PM CDT [facility] PROTEIN RANDOM (U) 100(H) <30 MG/DL 05/24/2025 8:50 PM CDT [facility] GLUCOSE (U) 150(A) NORMAL MG/DL 05/24/2025 8:50 PM CDT [facility] KETONES MG/DL (U) NEGATIVE NEGATIVE MG/DL 05/24/2025 8:50 PM CDT [facility] UROBILINOGEN NORMAL NORMAL MG/DL 05/24/2025 8:50 PM CDT [facility] BILIRUBIN (U) NEGATIVE NEGATIVE MG/DL 05/24/2025 8:50 PM CDT [facility] BLOOD (U) NEGATIVE NEGATIVE 05/24/2025 8:50 PM CDT [facility] MUCUS RARE /LPF 05/24/2025 8:50 PM CDT [facility] HYALINE CASTS RARE /LPF 05/24/2025 8:50 PM CDT [facility] WBC/HPF 2 <6 /HPF 05/24/2025 8:50 PM CDT [facility] RBC/HPF 3 <6 /HPF 05/24/2025 8:50 PM CDT [facility] BACTERIA (U) RARE(A) NONE /HPF 05/24/2025 8:50 PM CDT [facility] SQUAMOUS EPITHELIALS RARE /HPF 05/24/2025 8:50 PM CDT [facility] URINE SPECIMEN OBTAINED BY CLEAN CATCH PROCEDURE / Unknown 05/24/2025 8:25 PM CDT Carmen CHRISTINA URINE ORDERABLES Final Result [facility] [address] [place] [address], [place] [phone] * XR CHEST PORTABLE (05/24/2025 8:03 PM CDT) Anatomical Region Laterality Modality Chest Fluoroscopy 05/24/2025 8:09 PM CDT Impressions 05/24/2025 8:09 PM CDT IMPRESSION: No acute cardiopulmonary process. Referred By: Interpreted By: Rd Cisneros MD, 05/24/2025 8:09 PM Narrative 05/24/2025 8:09 PM CDT [facility] [address] [place], [place] [address] EXAM: XR CHEST PORTABLE INDICATION: Chest pain, dyspnea COMPARISON: Chest radiograph, 06 Jul 2018 TECHNIQUE: Single frontal radiographic image of the chest FINDINGS: No pneumothorax, pleural effusion, or focal airspace consolidation. Pulmonary vasculature and cardiomediastinal silhouette within normal limits. No acute osseous abnormality. Procedure Note Rd Cisneros MD - 05/24/[address] [address] EXAM: XR CHEST PORTABLE INDICATION: Chest pain, dyspnea COMPARISON: Chest radiograph, 06 Jul 2018 TECHNIQUE: Single frontal radiographic image of the chest FINDINGS: No pneumothorax, pleural effusion, or focal airspace consolidation.Pulmonary vasculature and cardiomediastinal silhouette within normallimits. No acute osseous abnormality. IMPRESSION: No acute cardiopulmonary process. Referred By: Interpreted By: Rd Cisneros MD, 05/24/2025 8:09 PM [facility]en Chavez [facility] Final Result * (ABNORMAL) COMPREHENSIVE METABOLIC PANEL (05/24/2025 7:03 PM CDT) GLUCOSE 241(H) 70 - 99 MG/DL 05/24/2025 9:10 PM CDT [facility] BUN 53(H) 7 - 18 MG/DL 05/24/2025 9:10 PM CDT [facility] CREATININE S/P/B 3.13(H) 0.55 - 1.02 MG/DL 05/24/2025 9:10 PM CDT [facility] SODIUM S/P/B 136 136 - 145 MMOL/L 05/24/2025 9:10 PM CDT [facility] POTASSIUM S/P/B 3.9 3.5 - 5.1 MMOL/L 05/24/2025 9:10 PM CDT [facility] CHLORIDE S/P/B 105 97 - 115 MMOL/L 05/24/2025 9:10 PM CDT [facility] CO2 24.1 21 - 32 MMOL/L 05/24/2025 9:10 PM CDT [facility] CALCIUM S/P/B 10.3(H) 8.5 - 10.1 MG/DL 05/24/2025 9:10 PM CDT [facility] BILIRUBIN TOTAL S/P/B 0.4 0.2 - 1.2 MG/DL 05/24/2025 9:10 PM CDT [facility] Comment: THIS ASSAY IS NOT RECOMMENDED FOR PATIENTS UNDERGOING TREATMENT WITH ELTROMBOPAG DUE TO THE POTENTIAL FOR FALSELY ELEVATED RESULTS. TOTAL PROTEIN S/P/B 7.5 6.4 - 8.2 G/DL 05/24/2025 9:10 PM CDT [facility] ALBUMIN S/P/B 3.4 3.4 - 5.0 G/DL 05/24/2025 9:10 PM CDT [facility] AST 13(L) 15 - 37 U/L 05/24/2025 9:10 PM CDT [facility] ALT 20 14 - 55 U/L 05/24/2025 9:10 PM T [facility] ALKALINE PHOSPHATASE S/P/B 130 50 - 136 U/L 05/24/2025 9:10 PM CDT [facility] ANION GAP 6.9 2 - 10 MMOL/L 05/24/2025 9:10 PM CDT [facility] BUN CREATININE RATIO 16.9 6 - 26 05/24/2025 9:10 PM CDT [facility] A/G RATIO 0.8(L) 1.0 - 2.0 RATIO 05/24/2025 9:10 PM T [facility] GFR ESTIMATE 17(L) >90 ML/MIN/1.7 3 M2 05/24/2025 9:10 PM CDT [facility] Comment: NOTE: eGFR is not calculated for patients <18 years of age or gender unknown. This is an estimated GFR calculation using the new CKD EPI creatinine equation without race and so does not require a correction factor for race. This estimated GFR should not be used for calculating drug doses. 05/24/2025 7:03 PM CDT [facility] Final Result [facility] [address] [place] [address], [place] [phone] * (ABNORMAL) CBC W/DIFF AUTOMATED (05/24/2025 7:03 PM CDT) WBC 11.11(H) 4.5 - 11.0 x10'3/uL 05/24/2025 8:37 PM CDT [facility] RBC 4.45 4.20 - 5.40 x10'6/uL 05/24/2025 8:37 PM CDT [facility] HGB 12.8 12.0 - 16.0 G/DL 05/24/2025 8:37 PM CDT [facility] HCT 39.0 38.0 - 48.0 % 05/24/2025 8:37 PM CDT [facility] MCV 87.6 81.0 - 99.0 FL 05/24/2025 8:37 PM CDT [facility] MCH 28.8 27.0 - 31.0 PG 05/24/2025 8:37 PM CDT [facility] MCHC 32.8 32.0 - 36.0 G/DL 05/24/2025 8:37 PM CDT [facility] RDW 14.1 11.5 - 14.5 % 05/24/2025 8:37 PM CDT [facility] PLT 226 130 - 400 x10'3/uL 05/24/2025 8:37 PM CDT [facility] MPV 10.5 9.3 - 12.2 FL 05/24/2025 8:37 PM CDT [facility] DIFFERENTIAL TYPE AUTOMATED DIFFERENTIAL 05/24/2025 8:37 PM CDT [facility] NEUTROPHILS % 70.4 % 05/24/2025 8:37 PM CDT [facility] LYMPHOCYTES % 22.3 % 05/24/2025 8:37 PM CDT [facility] MONOCYTES % 4.6 % 05/24/2025 8:37 PM CDT [facility] EOSINOPHILS 1.7 % 05/24/2025 8:37 PM CDT [facility] BASOPHILS 0.4 % 05/24/2025 8:37 PM CDT [facility] IMMATURE GRANS % 0.6 % 05/24/20 8:37 PM CDT [facility] ABS. NEUTROPHILS 7.82(H) 1.80 - 7.70 x10'3/uL 05/24/2025 8:37 PM CDT [facility] ABS. LYMPHOCYTES 2.48 1.00 - 4.80 x10'3/uL 05/24/2025 8:37 PM CDT [facility] ABS. MONOCYTES 0.51 0.24 - 0.86 x10'3/uL 05/24/2025 8:37 PM CDT [facility] ABS. EOSINOPHILS 0.19 0.04 - 0.36 x10'3/uL 05/24/2025 8:37 PM CDT [facility] ABS. BASOPHILS 0.04 0.01 - 0.08 x10'3/uL 05/24/2025 8:37 PM CDT [facility] ABS. IMMATURE GRANULOCYTES 0.07 0.00 - 0.49 x10'3/uL 05/24/2025 8:37 PM CDT [facility] 05/24/2025 7:03 PM CDT [facility] Final Result Performing Organization Address City/[facility]/ZIP Co de Phone Number [facility] [address] [place] [address], [place] [phone] * TROPONIN, QUANT (05/24/2025 7:03 PM CDT) TROPONIN I HIGH SENSITIVITY 23 <54 ng/L 05/24/2025 9:10 PM CDT [facility] Comment: HIGH DOSES OF BIOTIN, TROPONIN-SPECIFIC AUTOANTIBODIES, AND ANTIBODY THERAPY CONTAINING HAMA MAY INTERFERE WITH THIS TEST RESULT. CORRELATION TO CLINICAL HISTORY AND PRESENTATION RECOMMENDED. 05/24/2025 7:03 PM CDT [facility] Final Result Performing Organization Address [facility] Co de Phone Number [facility] [address] [place] [address], [place] [phone] * MAGNESIUM (05/24/2025 7:03 PM CDT) Pathologist [facility] MAGNESIUM 2.0 1.8 - 2.4 MG/DL 05/24/2025 9:10 PM CDT [facility] 05/24/2025 7:03 PM CDT [facility] Final Result Performing Organization Address City/[facility]/ZIP Co de Phone Number [facility] [address] [place] [address], from Last 3 Months Insurance [facility] Care Teams Mine Laborer Relationship Specialty Start Date End Date Jamaal Ibarra DO [address] [place], [place] [id number] PCP - General INTERNAL MEDICINE 07/02/23
--- OUTSIDE RECORDS SUMMARY | 2025-07-30 02:33 | XMS_ITS | Encounter Summary ---
Author Organization [facility] Address 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
[2025-07-30 08:07] VITALS: BP 108/61; PULSE 75; RESP 18; TEMP 36.2; O2SAT 99
[2025-07-30] MEDS: LACTATED RINGERS 1,000 ML 150 ML IV CONT (08:10)
[2025-07-30 08:15] LABS: Potassium 3.3 mmol/L (3.4-5.0)
--- NOTE | 2025-07-30 09:21 | P.PNAN_ITS ---
Anes - Eval Pre Procedure Procedure: Operation Date: 07/30/25 09:00 Proposed Procedures p Diagnostic Colonoscopy - Wade Casiano MD Date/Time: 07/30/25 09:21 Pre Op Diagnosis: Diarrhea, unspecified, Slow transit constipation Patient Data Age: 49 Gender: F Height: 1.73 m Weight: 118.2 kg Last Vital Signs Temp 97.2 F L 07/30/25 08:07 Pulse 75 07/30/25 08:07 Resp 18 07/30/25 08:07 BP 108/61 07/30/25 08:07 Pulse Ox 99 07/30/25 08:07 O2 Del Method Room Air 07/30/25 08:07 Allergies Allergy/AdvReac Type Severity Reaction Status Date / Time latex Allergy Severe itching Verified 07/30/25 07:59 metoclopramide Allergy Severe Redness of Verified 07/30/25 07:59 Skin Home Medications ?Medication ?Instructions ?Recorded ?Confirmed ?Type docusate sodium 100 mg capsule 100 mg PO DAILY 0 07/28/25 History (Colace) sertraline 100 mg tablet (Zoloft) 100 mg PO DAILY 10/0807/30/25 History zolpidem 10 mg tablet 10 mg PO QPM PRN Insomnia 07/30/25 History prazosin 2 mg capsule (Minipress) 2 mg PO HS 07/03/20 07/28/25 History coenzyme Q10 100 mg capsule (Co 100 mg PO DAILY 07/30/25 History Q-10) trazodone 50 mg tablet 50 mg PO HS 05/21/22 5 History Humalog KwikPen Insulin See Protocol subcut TIDWMEAL 03/22/23 07/30/25 History atorvastatin 10 mg tablet 20 mg PO QHS 04/02/23 History sumatriptan succinate 6 mg/0.5 mL 6 mg subcut ONCE PRN Migraine 08/01/23 07/30/25 History subcutaneous pen injector Headache alprazolam 0.5 mg tablet 0.5 mg PO TID 09/10/2307/30 History blood-glucose sensor (FreeStyle #1 ea 05/13/24 5 History Sharita 3 Sensor device) glucagon 3 mg/actuation nasal 3 mg intranasal PRN PRN 05/13/24 07/28/25 History spray (Baqsimi) Hypoglycemia insulin glargine 100 unit/mL (3 38 unit subcut BID 04/2907/30/25 History mL) subcutaneous pen (Lantus Solostar U-100 Insulin) pen needle, diabetic 32 gauge x #1,200 ea 05/13/24 History 32 (BD Mer 2nd Gen Pen Needle) pioglitazone 15 mg tablet 15 mg PO DAILY 05/13/2407/08 History prochlorperazine maleate 10 mg 20 mg PO Q4-6H PRN Naus ea 06/02/24 07/30/25 History tablet bumetanide 1 mg tablet 1 mg PO BID #60 tabs 4 07/30/25 Rx spironolactone 25 mg tablet 25 mg PO DAILY #30 tabs 07/30/25 Rx acyclovir 400 mg tablet 400 mg PO BID #180 tabs 08/0707/30/25 Rx zinc citrate 11 mg chewable tablet 11 mg PO DAILY 08/0707/30/25 History amitriptyline 25 mg tablet 50 mg (2 x 25 mg) PO HS #18 0 tabs 11/18/24 07/30/25 Rx amlodipine 5 mg tablet See Rx Instructions .Route 0 01/04/25 07/30/25 Rx .COMPLEX #90 tabs sucralfate 1 gram tablet 1 g PO .qid with meals #120 tabs 02/16/25 07/30/25 Rx ondansetron 4 mg disintegrating 4 mg PO Q8H PRN nausea and 03/09/25 07/30/25 Rx tablet vomiting #7 tabs carvedilol 6.25 mg tablet 6.25 mg PO Q12H #60 tabs 07/30/25 Rx chlorthalidone 25 mg tablet 25 mg PO DAILY #30 tabs 07/30/25 Rx bisacodyl 10 mg rectal suppository 10 mg RECTAL TID MD N constipation 05/23/25 07/28/25 Rx (Dulcolax (bisacodyl)) #12 ea pantoprazole 40 mg tablet,delayed 40 mg PO DAILY PRN N ausea #90 tabs 06/24/25 07/30/25 Rx release dicyclomine 10 mg capsule 10 mg PO BID PRN abdominal p ain 10 07/12/25 07/30/25 Rx days #20 caps cholecalciferol (vitamin D3) 125 5,000 unit PO DAILY 1 07/30/25 History mcg (5,000 unit) tablet clotrimazole-betamethasone 1 1 applic topical BID #15 grams 07/19/25 07/28/25 Rx %-0.05 % topical cream topiramate 25 mg sprinkle capsule 50 mg (2 x 25 mg) PO BID #360 caps 07/22/25 07/30/25 Rx (Topamax) dicyclomine 20 mg tablet 20 mg PO BID PRN abdominal p ain 1 07/28/25 07/30/25 Rx week #14 tabs prucalopride 1 mg tablet 1 mg PO DAILY 1 month #30 ta bs 07/28/25 07/28/25 Rx (Motegrity) Laboratory Tests 07/30/25 07/30/25 07:59 08:13 Potassium 3.3 L mmol/L (3.4-5.0) POC Capillary Glucose 182 H mg/dl (65-105) Patient hx anesthesia problems: none Family hx anesthesia problems: post op nausea/vomiting Results Review: All pre-operative results and documents have been reviewed as part of the pre- operative evaluation. 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 Gastroparesis Irritable bowel syndrome with constipation Cyclic vomiting syndrome Insulin dependent diabetes mellitus Hyperlipidemia Hypertension Gastroesophageal reflux disease Vitamin B 12 deficiency Anxiety Depression Hypothyroidism Fibromyalgia Rheumatoid arthritis Endometriosis Herpes Uterine fibroid Peptic ulcer Bronchitis Surgical History Surgical History History of colonoscopy April 2021 History of esophagogastroduodenoscopy (EGD) approx 2019 History of cholecystectomy History of detached retina repair History of partial knee replacement History of hysterectomy History of laparoscopy Removal of uterine fibroids Family History Family History Mother Diabetes mellitus Hypertension Family history of elevated blood lipids Sibling Family history of obesity Patient's sister is in good health Father Hypertension Family history of cardiovascular disease Other Acute myocardial infarction Family history of arthritis Family history of heart disease in male family member before age 55 Family history of thyroid disease Social History Social History Social History: Lives alone in [place]. with no children. No alcohol, tobacco, illicit substance abuse. Surrogate decision maker: Susan Ghoshzier, sister. Code status: Full code. 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
--- NOTE | 2025-07-30 09:21 | PM.IMHP ---
H&P: HPI History of Present Illness Date/Time: 07/30/25 09:21 Chief Complaint: Rectal bleeding Narrative: Patient referred for the presence of intermittent rectal bleeding episodes associated with a recent change in her bowel habits, with a tendency for severe constipation and lower abdominal pain. 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 Gastroparesis Irritable bowel syndrome with constipation Cyclic vomiting syndrome Insulin dependent diabetes mellitus Hyperlipidemia Hypertension Gastroesophageal reflux disease Vitamin B 12 deficiency Anxiety Depression Hypothyroidism Fibromyalgia Rheumatoid arthritis Endometriosis Herpes Uterine fibroid Peptic ulcer Bronchitis Surgical History Surgical History History of colonoscopy April 2021 History of esophagogastroduodenoscopy (EGD) 2018 History of cholecystectomy History of detached retina repair History of partial knee replacement History of hysterectomy History of laparoscopy Removal of uterine fibroids Family History Family History Mother Diabetes mellitus Hypertension Family history of elevated blood lipids Sibling Family history of obesity Patient's sister is in good health Father Hypertension Family history of cardiovascular disease Other Acute myocardial infarction Family history of arthritis Family history of heart disease in male family member before age 55 Family history of thyroid disease Social History Social History Social History: Lives alone in [place]. with no children. No alcohol, tobacco, illicit substance abuse. Surrogate decision maker: Susan Mooreer, sister. Code status: Full code. 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 Gender identity (if verbalized by the patient): Female Spiritual care concerns: No Meds Home Medications and Allergies Home Medications ?Medication ?Instructions ?Recorded ?Confirmed ?Type docusate sodium 100 mg capsule 100 mg PO DAILY 11/02/19 07/28/25 History (Colace) sertraline 100 mg tablet (Zoloft) 100 mg PO DAILY 11/02/19 07/30/25 History zolpidem 10 mg tablet 10 mg PO QPM PRN Insomnia 11/02/19 07/30/25 History prazosin 2 mg capsule (Minipress) 2 mg PO HS 07/03/20 07/28/25 History coenzyme Q10 100 mg capsule (Co 100 mg PO DAILY 10/03/21 07/30/25 History Q-10) trazodone 50 mg tablet 50 mg PO HS 05/21/22 07/30/25 History Humalog KwikPen Insulin See Protocol subcut TIDWMEAL 03/22/23 07/30/25 History atorvastatin 10 mg tablet 20 mg PO QHS 04/02/23 07/30/25 History sumatriptan succinate 6 mg/0.5 mL 6 mg subcut ONCE PRN Migraine 08/01/23 07/30/25 History subcutaneous pen injector Headache alprazolam 0.5 mg tablet 0.5 mg PO TID 09/10/23 07/30/25 History blood-glucose sensor (FreeStyle #1 ea 05/13/24 07/28/25 History Sharita 3 Sensor device) glucagon 3 mg/actuation nasal 3 mg intranasal PRN PRN 05/13/24 07/28/25 History spray (Baqsimi) Hypoglycemia insulin glargine 100 unit/mL (3 38 unit subcut BID 05/13/24 07/30/25 History mL) subcutaneous pen (Lantus Solostar U-100 Insulin) pen needle, diabetic 32 gauge x #1,200 ea 05/13/24 07/28/25 History 5/32 (BD Mer 2nd Gen Pen Needle) pioglitazone 15 mg tablet 15 mg PO DAILY 05/13/24 07/30/25 History prochlorperazine maleate 10 mg 20 mg PO Q4-6H PRN Nausea 06/02/24 07/30/25 History tablet bumetanide 1 mg tablet 1 mg PO BID #60 tabs 06/25/24 07/30/25 Rx spironolactone 25 mg tablet 25 mg PO DAILY #30 tabs 06/25/24 07/30/25 Rx acyclovir 400 mg tablet 400 mg PO BID #180 tabs 08/20/24 07/30/25 Rx zinc citrate 11 mg chewable tablet 11 mg PO DAILY 08/20/24 07/30/25 History amitriptyline 25 mg tablet 50 mg (2 x 25 mg) PO HS #180 tabs 11/18/24 07/30/25 Rx amlodipine 5 mg tablet See Rx Instructions .Route 01/04/25 07/30/25 Rx .COMPLEX #90 tabs sucralfate 1 gram tablet 1 g PO .qid with meals #120 tabs 02/16/25 07/30/25 Rx ondansetron 4 mg disintegrating 4 mg PO Q8H PRN nausea and 03/09/25 07/30/25 Rx tablet vomiting #7 tabs carvedilol 6.25 mg tablet 6.25 mg PO Q12H #60 tabs 03/24/25 07/30/25 Rx chlorthalidone 25 mg tablet 25 mg PO DAILY #30 tabs 03/24/25 07/30/25 Rx bisacodyl 10 mg rectal suppository 10 mg RECTAL TID PRN constipation 05/23/25 07/28/25 Rx (Dulcolax (bisacodyl)) #12 ea pantoprazole 40 mg tablet,delayed 40 mg PO DAILY PRN Nausea #90 tabs 06/24/25 07/30/25 Rx release dicyclomine 10 mg capsule 10 mg PO BID PRN abdominal pain 10 07/12/25 07/30/25 Rx days #20 caps cholecalciferol (vitamin D3) 125 5,000 unit PO DAILY 07/19/25 07/30/25 History mcg (5,000 unit) tablet clotrimazole-betamethasone 1 1 applic topical BID #15 grams 07/19/25 07/28/25 Rx %-0.05 % topical cream topiramate 25 mg sprinkle capsule 50 mg (2 x 25 mg) PO BID #360 caps 07/22/25 07/30/25 Rx (Topamax) dicyclomine 20 mg tablet 20 mg PO BID PRN abdominal pain 1 07/28/25 07/30/25 Rx week #14 tabs prucalopride 1 mg tablet 1 mg PO DAILY 1 month #30 tabs 07/28/25 07/28/25 Rx (Motegrity) Allergies Allergy/AdvReac Type Severity Reaction Status Date / Time latex Allergy Severe itching Verified 07/30/25 07:59 metoclopramide Allergy Severe Redness of Verified 07/30/25 07:59 Skin Vital Signs Vital Signs - 24 hr 07/30/25 08:07 Temperature 97.2 F L Pulse Rate 75 Respiratory Rate 18 Blood Pressure 108/61 Pulse Oximetry 99 Oxygen Delivery Room Air Exam Const: General: cooperative and healthy appearing Resp: Effort & Inspection: normal respiratory effort and able to speak in complete sentences Auscultation: clear to auscultation bilaterally Cardio: Rate: regular rate Rhythm: regular rhythm GI: Inspection: normal to inspection GI Palp: No No hepatosplenomegaly present Auscultation: normal bowel sounds Rectal Exam: deferred Skin: General skin exam: normal color Psych: Appearance: grossly normal Mental Status: mental status grossly normal H&P: Results Labs Labs: [facility] 07/30/25 07:59 Potassium 3.3 L Assessment and Plan Assessment and plan (1) Bright red rectal bleeding: Code(s): K62.5 - Hemorrhage of anus and rectum Status: Acute Assessment and Plan: The patient is deemed a good candidate for the procedure. Consent signed. Will proceed.
--- NOTE | 2025-07-30 09:26 | P.PNAN_ITS ---
Anes - Eval Final PreProcedure Day of Procedure 07/30/25 09:26 Patient weight: morbidly obese Heart: regular rate and rhythm Lungs: clear to auscultation Airway: Mallampati scale Neurological: alert and oriented Last oral intake: >/= 8 hours ASA classification: III Emergent: no Anesthetic plan: proceed Anesthesia type and monitoring: general GIVS and standard monitoring Results Review: All pre-operative results and documents have been reviewed as part of the pre- operative evaluation. Informed Consent: The patient's anesthetic plan and its attendant risks and benefits were discussed with the patient/family/POA. Questions were solicited and answers provided to the satisfaction of the patient/family/POA.
[2025-07-30 09:55] VITALS: BP 102/60; PULSE 66; RESP 19; O2SAT 94
[2025-07-30 10:05] VITALS: BP 110/61; PULSE 66; RESP 18; O2SAT 94
[2025-07-30 10:15] VITALS: BP 121/70; PULSE 65; RESP 18; O2SAT 94
--- NOTE | 2025-07-30 10:18 | SUR.PHASEII ---
pt stated to feel nauseous and that she feels like she could throw up. notified and verbal order given
[2025-07-30 10:25] VITALS: BP 124/73; PULSE 61; RESP 18; O2SAT 96
[2025-07-30] MEDS: ONDANSETRON INJ 4 MG/2 ML VIAL IV PUSH (10:25)
[2025-07-30 10:33] VITALS: BP 113/68; PULSE 71; RESP 20; O2SAT 98
--- NOTE | 2025-07-30 10:34 | SUR.PHASEII ---
After administration, pt stated that she felt better and shes nauseous almost everyday. Patient given discharge papers and instructed to contact if she has any questions or concerns.
== END 2025-07-30 10:42 | disposition home or self-care (01) ==
PROVIDERS: Anesthesiology; PCP Internal Medicine; Referring Provider Internal Medicine; Visit Provider Internal Medicine Gastroenterology
PROC: 0DJD8ZZ Inspection of Lower Intestinal Tract, Via Natural or Artificial Opening Endoscopic (ICD-10-PCS; CPT 45378; principal; 2025-07-30 09:00)
DX: K64.8 Other hemorrhoids (principal); E78.5 Hyperlipidemia, unspecified; K21.9 Gastro-esophageal reflux disease without esophagitis; E53.8 Deficiency of other specified B group vitamins; F32.A Depression, unspecified; E03.9 Hypothyroidism, unspecified; M79.7 Fibromyalgia; E11.10 Type 2 diabetes mellitus with ketoacidosis without coma; E11.22 Type 2 diabetes mellitus with diabetic chronic kidney disease; I12.9 Hypertensive chronic kidney disease with stage 1 through stage 4 chronic kidney disease, or unspecified chronic kidney disease; N18.9 Chronic kidney disease, unspecified; E11.43 Type 2 diabetes mellitus with diabetic autonomic (poly)neuropathy; K31.84 Gastroparesis; F43.10 Post-traumatic stress disorder, unspecified; F41.9 Anxiety disorder, unspecified; K75.81 Nonalcoholic steatohepatitis (NASH); G89.29 Other chronic pain; M54.50 Low back pain, unspecified; K58.1 Irritable bowel syndrome with constipation; G43.009 Migraine without aura, not intractable, without status migrainosus; R11.15 Cyclical vomiting syndrome unrelated to migraine; M06.9 Rheumatoid arthritis, unspecified; N80.9 Endometriosis, unspecified; E66.01 Morbid (severe) obesity due to excess calories; Z68.39 Body mass index [BMI] 39.0-39.9, adult; Z79.4 Long term (current) use of insulin; Z79.85 Long-term (current) use of injectable non-insulin antidiabetic drugs; Z98.890 Other specified postprocedural states; Z90.49 Acquired absence of other specified parts of digestive tract; Z87.11 Personal history of peptic ulcer disease; Z87.19 Personal history of other diseases of the digestive system; Z82.49 Family history of ischemic heart disease and other diseases of the circulatory system
CPT/HCPCS: 45378; 36415; 82948; 84132; J2003; J2405; J2704; J7120